=== PATIENT | female | born 1995 | race Caucasian/White ===

== ENCOUNTER 2019-07-23 16:23 | Observation (INO) | payer OTHER, SELFPAY ==
--- NOTE | ~2019-07-23 | US_ITS ---
EXAMINATION: US pelvic complete DATE: 07/23/2019 18:52 INDICATION: Miscarriage. TECHNIQUE: Multiple transabdominal sonographic images of the pelvis were obtained. COMPARISON: None. FINDINGS: The uterus measures 13.9 x 8.2 x 8.8 cm. There is no free fluid in the pelvis. The endometrial comple x measures 4.8 cm in thickness. There is no visible vascularity in the endometrial complex. The right ovary measures 2.6 x 3.1 x 1.5 cm. The left ovary measures 5.6 x 5.8 x 5.3 cm. There is a 5.5 cm cys t in the left ovary. IMPRESSION: 1. Thickened endometrial complex suspicious for retained products of conception. 2. 5.5 cm cyst in left ovary, likely a follicular cyst. Pelvis ultrasound is recommended in one year. Reviewed, dictated and finalized at location A. IMPRESSION: 1. Thickened endometrial complex suspicious for retained products of conception . 2. 5.5 cm cyst in left ovary, likely a follicular cyst. Pelvis ultrasound is re commended in one year.
[2019-07-23 16:21] VITALS: BP 99/82; PULSE 101; RESP 16; TEMP 36.6; O2SAT 95
--- NOTE | 2019-07-23 16:26 | ED.PREGNANCY ---
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 She states that she was seen by her OBGYN, Dr. Euceda, this morning for her 12 week check up, and after she got home she developed vaginal bleeding. She reports associated lower ABD and lower back pain. She also reports that she had some nausea and vomiting last night. She notes that she believes that she passed the fetus into the toilet and brought the specimen with her. The pt's blood type is A+. MD Complaint: vaginal bleeding Onset (ago): minute(s) Pain Consistency: constant Associated symptoms: nausea (last night), vomiting (last night), abdominal pain (lower) and other (lower back pain) Vaginal bleeding: heavy and clots Patient : Yes Number of Weeks : 12 Related Data : 2 Para: 1 Total number of abortions (spontaneous and elective): 0 Home Medications Medication Instructions Recorded Confirmed PNV cmb#95-ferrous fumarate-FA 1 tablet PO DAILY 07/23/19 [] Allergies Allergy/AdvReac Type Severity Reaction Status Date / Time No Known Allergies Allergy Unverified 07/23/19 16:25 Review of Systems Review of Systems: All systems reviewed & are unremarkable except as noted in HPI and below Gastrointestinal: Gastrointestinal: Reports abdominal pain (lower), Reports nausea (last night) and Reports vomiting (last night) Genitourinary: Genitourinary: Reports abnormal vaginal bleeding (heavy with clots) Musculoskeletal: Musculoskeletal: Reports back pain (lower) PMFSH Past Medical History Medical History (Updated 07/23/19 @ 18:12 by Iveth Mullins MD) History of ovarian cyst Surgical History Surgical History (Updated 07/23/19 @ 16:34 by Sandeep Parry) No history of previous surgery Social History Social History (Updated 07/23/19 @ 16:35 by Sandeep Parry) Smoking status: Never smoker Exam Const: General: cooperative, no acute distress and alert Nutritional Appearance: well nourished Orientation/consciousness: patient oriented x3 Limitations: no limitations HENMT: Mouth: Yes lip normal and Yes moist mucous membranes Resp: Effort & Inspection: normal respiratory effort Auscultation: clear to auscultation bilaterally Cardio: Rate: tachycardic (mild) Rhythm: regular rhythm GI: GI Palp: Yes Soft to palpation and Yes Tenderness to palpation present (GI) (suprapubic) Auscultation: normal bowel sounds : OB/external & speculum: vaginal bleeding (Unable to clear clots from vaginal vault) Skin: General skin exam: normal color Neuro: General: patient oriented x3 Cognition (Neuro): normal cognition Speech: normal speech Extrem: General: normal to inspection, full ROM and no clubbing, cyanosis or edema Psych: Mental Status: mental status grossly normal Affect: normal affect Attitude: cooperative Course Course Emergency Course: Patient presents with spontaneous . After speaking with Dr. Euceda, there is concern for septic given patient recently tested positive for gonorrhea and chlamydia and despite their attempts to get her into the office to get treated, patient had not followed up until today. Patient advised that she did test positive for these STDs and that Dr. Euceda was concerned that she has a pelvic infection that led to her miscarriage. Patient advised importance of being admitted to the hospital for IV antibiotics as recommended by her GASFITTER. Patient does have ongoing vaginal bleeding as well. Ultrasound is pending at time of admission and Dr. Mcdaniels advised he would be following up the results and checking on the patient. Consultations Consultation #1: Case discussed at [facility]
[2019-07-23] MEDS: KETOROLAC 30 MG/ML VIAL (*BKC) IV PUSH ×2 (17:02→23:12)
[2019-07-23] MEDS: LACTATED RINGERS 1,000 ML 999 ML IV CONT (17:02)
[2019-07-23 17:05] VITALS: BP 115/66; PULSE 91; O2SAT 96
--- NOTE | 2019-07-23 17:16 | PC.NURSE ---
geldmacher in room at time time for pelvic exam.
[2019-07-23 17:25] LABS: Basophils Absolute Auto 0.1 K/mm3 (0.0-0.1); Basophils Percent Auto 0.3 % (0.2-1.2); Eosinophils Percent Auto 0.1 % (0-4.4); Hematocrit 37.9 % (37.0-47.0); Hemoglobin 12.8 g/dL (12.0-15.0); Immature Granulocyte Absolute 0.27 K/mm3 (0.00-0.031); Immature Granulocyte Percent A 0.9 % (0-0.5); Lymphocytes Absolute Auto 1.65 K/mm3 (0.9-3.2); Lymphocytes Percent Auto 5.7 % (18.3-44.2); Mean Corpuscular HGB Conc 33.8 g/dl (32-36); Mean Corpuscular Hemoglobin 28.7 pg (26-34); Mean Platelet Volume 10.6 fl (7.4-10.4); Monocytes Absolute Auto 1.9 K/mm3 (0.1-0.6); Monocytes Percent Auto 6.5 % (2.6-8.5); Neutrophils Percent Auto 86.5 % (45.5-73.1); Platelet Count Result 293 k/mm3 (150-375); Red Blood Count 4.46 M/mm3 (4.2-5.4); Red Cell Distribution Width 15.1 % (11.5-14.5); White Blood Count 28.9 K/mm3 (4.5-10.0)
--- NOTE | 2019-07-23 17:40 | PC.NURSE ---
ERP GELDMACHER AT BEDSIDE INFORMING PT OF PLAN FOR CARE.
--- NOTE | 2019-07-23 17:45 | PC.NURSE ---
FETUS WEIGHED BY KAELYN SIDDIQI AT 20 GRAMS AND IS 10 CM LONG.
--- NOTE | 2019-07-23 18:00 | PC.NURSE ---
Notified surgery scheduling coordinator Willa Glez at this time of demise.
--- NOTE | 2019-07-23 18:05 | PC.NURSE ---
PT TO ULTRASOUND AT THIS TIME.
--- NOTE | 2019-07-23 18:34 | PC.NURSE ---
GAVE PT REPORT TO KAELYN MOSHER AT THIS TIME, PT STILL IN ULTRA SOUND AWAITING HER RETURN TO BEGIN ANTIBIOTICS AND SIGN DEMISE PAPERWORK.
--- NOTE | 2019-07-23 19:34 | PC.NURSE ---
SPOKE WITH CHAIM AT [facility], PT HAS EXPRESSED THAT THIS IS WHERE THEY WOULD LIKE BABY CREMATED. HOME HAS BEEN GIVEN INFORMATION AND WILL BE UP TO ED TO TRADER FETUS NICHOLAS.
[2019-07-23 19:56] VITALS: BP 138/75; PULSE 78; RESP 16; O2SAT 96
--- NOTE | 2019-07-23 19:57 | PC.NURSE ---
[facility] IN ED TO ACCEPT BODY.
[2019-07-23 20:06] VITALS: BP 112/57; PULSE 83; RESP 14; TEMP 36.6; O2SAT 98
[2019-07-23 20:09] VITALS: BMI 25.2
[2019-07-23] MEDS: cefoTEtan DISODIUM INJ 2 GM in DEXTROSE 5% IN WATER 50 ML IVPB (20:19)
[2019-07-23] MEDS: LACTATED RINGERS 1,000 ML 150 ML IV CONT (20:19)
--- NOTE | 2019-07-23 20:24 | ADMGEN ---
This patient, Tiffany Miller, was admitted to Medical Room 340-01. Patient/family oriented to hospital policies and general routines including ID bracelet, bed and alarms, visiting hours, pain management, procedures, bathroom and other care routines, personal items, smoking policy, room service/diet, and visiting hours. Valuables list has been completed. Information on how to activate the Rapid Response Team has been discussed. Patient/Family are encouraged to report perceived risks to care and to ask questions if they do not understand what they are told or what they should do.
[2019-07-24] MEDS: LACTATED RINGERS 1,000 ML 150 ML IV CONT (03:50)
[2019-07-24 05:28] VITALS: BP 114/53; PULSE 78; RESP 16; TEMP 36.3; O2SAT 99
[2019-07-24] MEDS: cefoTEtan DISODIUM INJ 2 GM in DEXTROSE 5% IN WATER 50 ML IVPB (06:31)
[2019-07-24 08:02] VITALS: PULSE 80; RESP 16; O2SAT 99
--- NOTE | 2019-07-24 08:41 | PM.IMHP ---
H&P: HPI History of Present Illness Chief complaint: Septic Spontaneous Narrative: Tiffany Miller is a 23 year old female who presented emergency department after spontaneous . She is a 2 para 1001 who was at 12 weeks yesterday when she presented to the office. An ultrasound performed she had what appeared to be a normal 12 week gestation. She went to the bathroom in our office and passed some large clots and was cramping. She was examined and found to be about 3 cm dilated with a bulging membranes and an live embryo that could be visualized moving across the membranes. She refused to be admitted to the hospital. She went home. She passed the the fetus and the placenta in the toilet. She had a moderate amount of bleeding and presented emergency department. She is examined there she [place] [address]. She was admitted for IV antibiotics. The patient had a gonorrhea infection that had not been treated. She tested positive in the office. That was about a month ago. We could not reach her for treatment. We tried multiple times. She denies any nausea, vomiting, fever, chills. She denies any chest pain shortness of breath. Review of Systems Constitutional: Constitutional: Reports no additional constitutional complaints, Denies fatigue, Denies headache(s), Denies lethargy and Denies weakness Eyes: Eyes: Reports no additional eye complaints, Denies blurry vision and Denies photophobia ENT: Reports as per HPI, Denies headache(s) and Denies neck pain Cardiovascular: Cardiovascular: Denies chest pain, Denies diaphoresis, Denies leg edema, Denies palpitations and Denies dyspnea Respiratory: Respiratory: Denies hemoptysis, Denies dyspnea and Denies wheezing Gastrointestinal: Gastrointestinal: Denies abdominal pain, Denies melena, Denies bloating, Denies hematochezia, Denies nausea and Denies vomiting Genitourinary: Genitourinary: Reports no additional female genitourinary complaints Musculoskeletal: Musculoskeletal: Denies joint swelling, Denies neck pain, Denies numbness and Denies stiffness Neurologic: Denies Abnormal speech present, Denies confusion, Denies headache(s), Denies numbness and Denies weakness Psychiatric: Psychiatric: Denies anxiety, Denies confusion, Denies depression, Denies homicidal ideation and Denies suicidal ideation Endocrine: Endocrine: Denies fatigue and Denies palpitations Allergic/Immunologic: Allergic/Immunologic: Denies wheezing PMFSH Past Medical History Medical History (Updated 07/23/19 @ 18:12 by Iveth Mullins MD) History of ovarian cyst Surgical History Surgical History (Updated 07/23/19 @ 16:34 by Sandeep Parry) No history of previous surgery Family History Family History (Updated 07/23/19 @ 20:30 by Danitza Gill RN) Father Acute myocardial infarction Hypertension Mother Hypertension Social History Social History (Updated 07/23/19 @ 16:35 by Sandeep Parry) Smoking packs per day: 0.5 Smoking cigarettes per day: 10.0 Years smoked: 10 Smoking pack-years: 5.00 Smoking status: Current every day smoker Tobacco type: cigarettes Alcohol intake: never Substance use: former 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 Last use: 3 years ago Gender identity (if verbalized by the patient): Female Spiritual care concerns: No Agree to blood products: Yes Meds Home Medications and Allergies Home Medications Medication Instructions Recorded Confirmed Type No Home Medications 07/23/19 07/23/19 History Allergies Allergy/AdvReac Type Severity Reaction Status Date / Time No Known Allergies Allergy Unverified 07/23/19 16:25 Vital Signs Vital Signs - 24 hr 07/23/19 16:21 07/23/19 17:05 07/23/19 19:56 Temperature 97.8 F Pulse Rate 101 H 91 78 Respiratory Rate 16 16 Blood Pressure 99/82 L 115/66 138/75 Pulse Oximetry 95 96 96
[2019-07-24 09:02] LABS: Hematocrit 31.9 % (37.0-47.0); Hemoglobin 10.7 g/dL (12.0-15.0); Mean Corpuscular HGB Conc 33.5 g/dl (32-36); Mean Corpuscular Hemoglobin 29.1 pg (26-34); Mean Corpuscular Volume 86.7 fl (80-100); Mean Platelet Volume 10.3 fl (7.4-10.4); Platelet Count Result 233 k/mm3 (150-375); Red Blood Count 3.68 M/mm3 (4.2-5.4); White Blood Count 19.7 K/mm3 (4.5-10.0)
[2019-07-24] MEDS: LIDOCAINE HCL 1% LOCAL INJ 10 ML VIAL 2.1 ML XX (09:33)
[2019-07-24] MEDS: cefTRIAXone 1 GM VIAL IM (09:33)
== END 2019-07-24 10:30 | disposition home or self-care (01) ==
LOC: ANHED 17:50 → ANH3MED 18:09
PROVIDERS: Admitting Provider Obstetrics & Gynecology; Emergency Provider Emergency Medicine; Visit Provider Obstetrics & Gynecology
DX: O03.87 Sepsis following complete or unspecified spontaneous abortion (principal); A41.9 Sepsis, unspecified organism; F17.210 Nicotine dependence, cigarettes, uncomplicated
CPT/HCPCS: 36415; 76856; 85025; 85027; 88305; 88307; 96361; 96365; 96367; 96375; 96376; 99285; G0378; G0379; J0131; J0696; J1885; J3010; J7120

== ENCOUNTER 2022-03-18 16:32 | Emergency (ER) | payer OTHER, SELFPAY ==
[2022-03-18 16:40] VITALS: BP 120/81; PULSE 70; RESP 18; TEMP 36.4; O2SAT 98
--- NOTE | 2022-03-18 16:55 | ED.DENTAL ---
HPI - Dental/Oral General Chief complaint: Dental/Oral Stated complaint: Mouth Pain Time Seen by Provider: 03/18/22 16:55 Source: patient Mode of arrival: ambulatory Limitations: no limitations History of Present Illness HPI Narrative: 26-year-old female presents with complaint of left upper dental pain. Reports history of bad teeth since last . Was told that she needs root canal, multiple teeth pulled. Was not able to afford at that time. Has appointment with a dentist that now takes her insurance on April 11. Taking Advil with no relief. All systems reviewed and negative except as noted above. Related Data Allergies Allergy/AdvReac Type Severity Reaction Status Date / Time No Known Allergies Allergy Verified 03/18/22 16:56 Review of Systems Review of Systems: CONSTITUTIONAL: Denies fever, chills, or sweats. EYES: Denies visual changes, redness, or discharge. ENT: Denies rhinorrhea, congestion, sore throat, or otalgia. Reports dental pain. CARDIOVASCULAR: Denies chest pain, palpitations, or edema. RESPIRATORY: Denies cough or dyspnea. GASTROINTESTINAL: Denies abdominal pain, nausea, vomiting, or diarrhea. GENITOURINARY: Denies dysuria or hematuria. SKIN: Denies rash or itching. MUSCULOSKELETAL: Denies back pain, joint pain, or myalgia. NEUROLOGIC: Denies headache, numbness, or weakness. PSYCHIATRIC: Denies anxiety or depression. All other systems reviewed are negative, except as documented in HPI. [facility] Past Medical History Medical History (Updated 03/18/22 @ 17:06 by Rhea Chang NP) History of ovarian cyst Surgical History Surgical History (Updated 07/23/19 @ 16:34 by Sandeep Parry) No history of previous surgery Family History Family History (Updated 07/23/19 @ 20:30 by Danitza Grimes RN) Father Acute myocardial infarction Hypertension Mother Hypertension Social History Social History (Updated 07/23/19 @ 16:35 by Sandeep Parry) Smoking packs per day: 0.5 Smoking cigarettes per day: 10.0 Years smoked: 10 Smoking pack-years: 5.00 Smoking status: Current every day smoker Tobacco type: cigarettes Alcohol intake: never Substance use: former 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 Last use: 3 years ago Gender identity (if verbalized by the patient): Female Spiritual care concerns: No Agree to blood products: Yes Comments At time of signature, agree with nursing past medical, surgical, social and family history. There is no relevant family history pertinent to the presenting complaint. Exam Narrative: GENERAL: This is a well-nourished, well-developed patient, in no apparent distress. HEAD: normocephalic, atraumatic. EYES: PERRL. Sclera clear/white. Vision is grossly intact. EARS: External ears normal NOSE: External nose normal MOUTH: multiple decayed teeth. tenderness to tooth #11 NECK: Neck supple, non-tender without lymphadenopathy, masses or thyromegaly. CARDIOVASCULAR: Regular rate and rhythm without murmurs, gallops, or rubs. RESPIRATORY: Clear to auscultation. Breath sounds equal bilaterally. No wheezes, rales, or rhonchi. SKIN: warm, Dry, intact with no suspicious lesions or rash, good texture and turgor. NEURO: awake, alert, and oriented to person, place and time. There were no obvious focal neurologic abnormalities. EXTREMITIES: No joint tenderness, effusion, or edema noted. Course Course Level of Care: Express Care Visit Vital Signs Vital signs: Vital Signs Temperature 36.4 C 03/18/22 16:40 Pulse Rate 70 03/18/22 16:40 Respiratory Rate 18 03/18/22 16:40 Blood Pressure 120/81 03/18/22 16:40 Pulse Oximetry 98 03/18/22 16:40 Oxygen Delivery Room Air 03/18/22 16:40 Temperature 36.4 C 03/18/22 16:40 Pulse Rate 70 03/18/22 16:40 Respiratory Rate 18 03/18/22 16:40 Blood Pressure 120/81 03/18/22 16:40 Pulse Oximetry 98 03/18/22 16:40
== END 2022-03-18 17:10 | disposition home or self-care (01) ==
PROVIDERS: Emergency Provider Nurse Practitioner Family; PCP Emergency Medicine
DX: K08.89 Other specified disorders of teeth and supporting structures (principal); F17.210 Nicotine dependence, cigarettes, uncomplicated
CPT/HCPCS: 99213; G0463

== ENCOUNTER 2024-10-08 12:19 | Outpatient (CLI) | payer OTHER, SELFPAY ==
[2024-10-08 13:05] LABS: Basophils Absolute Auto 0.05 K/mm3 (0.00-0.10); Basophils Percent Auto 0.6 % (0.0-1.0); Eosinophils Absolute Auto 0.17 K/mm3 (0.02-0.50); Hematocrit 25.6 % (35.0-49.0); Hemoglobin 7.7 g/dL (12.0-15.0); Immature Granulocyte Absolute 0.03 K/mm3 (0.00-0.00); Immature Granulocyte Percent A 0.4 % (0.0-0.0); Lymphocytes Absolute Auto 2.33 K/mm3 (1.10-4.50); Mean Corpuscular HGB Conc 30.1 g/dL (32-36); Mean Corpuscular Hemoglobin 26.9 pg (27.0-31.0); Mean Corpuscular Volume 89.5 fL (78.0-102.0); Mean Platelet Volume 9.7 fl (9.2-11.8); Monocytes Percent Auto 7.2 % (2.0-11.0); Neutrophils Absolute Auto 5.15 K/mm3 (1.70-7.20); Neutrophils Percent Auto 61.8 % (50.0-70.0); Platelet Count Result 528 K/mm3 (150-420); Red Blood Count 2.86 M/mm3 (4.20-5.40); Red Cell Distribution Width 16.3 % (11.6-14.4); White Blood Count 8.3 K/mm3 (4.8-10.8)
[2024-10-08 13:12] LABS: Immature Platelet Fraction Pct 1.6 % (1.0-7.0)
--- OUTSIDE RECORDS SUMMARY | 2024-10-08 13:35 | XMS_ITS | Continuity of Care Document ---
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 [facility] [address] [place] [address] Phone Care Team Providers Care Cruise Consultant Name Role Phone Morgan Edward MD Unavailable Unavailab le Allergies, Adverse Reactions, Alerts Substance Reaction Status Criticality No Known Drug Allergies Active No I nformation Medications Medication Instructions Dosage Effective Dates (start - stop) Status Comments No Drug Therapy Prescribed Procedures Procedure Date Resin-Based Composite-One Surface, Poste rior Resin-Based Composite-Two Surfaces, Post erior Bitewings-Four Radiographic Images Panoramic Radiographic Image Comprehensive Oral Eval-New Or Establish ed Patient Assessment Of A Patient Prophylaxis-Adult Topical Application Of Fluoride 016 OFFICE/OUTPATIENT VISIT, EST SBIRT Screening PREV VISIT, NEW, AGE 18-39 Advance Directives Directive Yes / No Effective Date File Name No Information Encounters Encounter Description Practice Location Reason(s) For Visit Diagnoses Date Provider Providers Copied on Encounter Jennifer Lemos [employer] [facility] Darshanashannon tony, [facility] [address] [place] [address], [place], [address], [place] tel:[phone] Mahad Conn [facility] No Information 7 Wagner Mora. [address] [facility], [id number] , [place], [address], [place]. tel:[phone] Jennifer Lemos [employer] [facility] Darshanameenayumiko jimenez, [facility] [address] [facility], [place], [address], [place] tel: [phone] [facility] No Information 6 Lashell Boyle. [address] [facility], [id number] , [place], [place], [facility], [place]. tel:[phone] Jennifer Lemos [employer], [employer] [facility] [address] [facility], [place], [place], [facility], [place] tel: [phone] [facility] No Information 6 [facility]. [address] [facility], [id number] , [place], [place], [facility], [place]. tel:[phone] Jennifer Lemos [employer] [facility], [employer]ACH[employer] [facility] [address] [facility], [place], [place], [facility], tel: [phone] [facility] No Information 6 Ignaciowes Boyle. [address] [facility], [id number] , [place], [place], [facility], [place]. tel:[phone] OFFICE/OUTPA TIENT VISIT, EST Jennifer Lemos [employer] [facility] Darshanatiu tony, [employer] [facility] [address] [facility], [place], [place], [facility], [place] tel: [phone] [facility] Lab results (chief complaint) Hepatitis CChlamydia infectionGenital herpesEncounter to discuss test results 5 Yazan Valentin. [facility], [id number] , [place], [place], [facility], [place]. tel:[phone] PREV VISIT, NEW, AGE 18-39 Jennifer Reed [employer] [facility], [employer]ACH[employer] [facility] [address], [place], [place], [facility], [place] tel:[phone] [facility] Hep C positive (chief complaint) Hepatitis CScreen for STD (sexually transmitted disease) 5 Yazan Valentin. [facility], [id number] , [place], [place], [facility], [place]. tel:[phone] Family History Family Member Type Diagnosis Age At Onset No Information Payers Payer name Insurance type Covered democrat ID Marcia cunningham(vicky Mcdonald [employer] [id number] Social History Type Description Quantity Date Captured Comments Sex Female Smoking Status No Information Chief Complaint And Reason For Visit No Information Reason For Referral Reason For Referral No Information Plan Of Treatment Date Type Action Status Referral Ordered: Referrals: Gastroenterology. Evaluate and treat ordered Patient Education Genital Herpes: After Y our Visit completed Patient Education Chlamydia: After Your V isit completed Patient Education Hepatitis C: After Your Visit completed History Of Present Illness Encounter Date Complaint History Of Prese nt Illness Lab results 1 gram of Azithr omycin given today. Hep C positive Functional Status Date Functional Assessmen t No Information Medications Administered Medication Instructions Dosage Effective Dates (start - stop) Status Comments No Drug Therapy Prescribed Instructions Date Instruction Additional Mercedesr black treatment: azithromy frida. Avoid unprotected risky intercourse. Utilize condoms Related to Chlamydia infection Assessments Type Assessment Date No Information Patient Care Teams Name Effective Dates (start - stop) Status Members No Information
[2024-10-08 13:37] LABS: Alanine Aminotransferase 14 U/L (6-35); Albumin Level 3.1 g/dL (3.5-5.1); Alkaline Phosphatase 245 U/L (38-126); Anion Gap 8 mmol/L (4-12); Aspartate Amino Transferase 20 U/L (14-36); Bilirubin,Total 0.6 mg/dL (0.2-1.3); Blood Urea Nitrogen 25 mg/dL (7-17); CRP 8.7 mg/dL (<1.0); Calcium 8.3 mg/dL (8.4-10.2); Carbon Dioxide 27 mmol/L (22-30); Chloride 99 mmol/L (98-107); Estimated Glomerular Filt Rate 11; Glucose 94 mg/dL (65-110); Osmolality Calculated 282 mOsm/kg (285-295); Potassium 4.6 mmol/L (3.4-5.0); Sodium 134 mmol/L (137-145); Total Protein 8.5 g/dL (6.3-8.2)
--- OUTSIDE RECORDS SUMMARY | 2024-10-08 13:37 | XMS_ITS | Referral Summary ---
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 Name Role Phone Unavailable Primary Care Provider Unavailabl e Encounters Date Type Department Care Team Description 10/05/2024 SHOP/CHAP Initial Outreach [facility] [address] [place] [address] Katerin Zepeda RN 10/03/2024 SHOP/CHAP Initial Outreach [facility] [address] [place] [address] Katerin Zepeda RN 10/02/2024 SHOP/CHAP Initial Outreach [facility] [address] [place] [address] Katerin Zepeda RN 10/02/2024 Telephone Research [facility] Cardiothoracic Surgery [address] [place] [address] 8th Floor [address] Room [address] [id number] Massimo Alcala MD 10/02/2024 SHOP/CHAP Initial Eligibility Review [facility] [address] [place] [address] Katerin Zepeda RN 08/05/2024 5:32 PM CDT - 10/01/2024 1:33 PM CDT Hospital Encounter [facility] [place] [address] Amando Briggs MD Krings, MD Ayah Steve, MD Jose Miguel Seay, MD Carlitos Jimenez, Valerie Palacios MD PhD Edwar, Jone, MD Dickey, Elizabet Chamberlain, MD Gaming, MD Linus Rose, Gianni Barksdale, MD Vincent, MD Arya Acute bacterial endocarditis (Primary Dx); Opioid use disorder; MARIELENA (acute kidney injury); Hyponatremia; Septic shock (HCC); Staphyloccocus aureus (MRSA) endocarditis Discharge Disposition: Discharge to home or self care from Last 3 Months Allergies No known active allergies Medications naloxegoL (MOVANTIK) 12.5 mg tablet Take 1 tablet (12.5 mg total) by mouth daily before breakfast 30 tablet 09/06/19 25 Active naloxone (NARCAN) 4 mg/actuation spray,non-aerosol Administer 1 spray into affected nostril(s) as needed for opioid reversal or respiratory depression Call 911. Administer a single spray in one nostril. Repeat every 3 minutes as needed if no or minimal response. 1 each 1 09/25/19 25 025 Active amLODIPine (NORVASC) 10 mg tablet Take 1 tablet (10 mg total) by mouth daily 30 tablet 10/03/19 25 025 Active buprenorphine (SUBUTEX) tablet, sublingual Place 1 tablet (8 mg total) under the tongue every 12 (twelve) hours for 7 days 14 tablet 10/02/19 25 Active calcium carbonate (OS-JESS) 1,250 mg (500 mg elemental) tablet Take 0.5 tablets (625 mg total) by mouth daily 15 tablet 10/03/19 25 025 Active carvediloL (COREG) 12.5 mg tablet Take 1 tablet (12.5 mg total) by mouth 2 (two) times a day with meals 60 tablet 10/02/19 25 025 Active clonazePAM (KlonoPIN) 0.25 mg disintegrating tablet Take 1 tablet (0.25 mg total) by mouth 2 (two) times a day for 7 days 14 tablet 10/02/19 25 Active cloNIDine (CATAPRES) 0.1 mg tablet Take 1 tablet (0.1 mg total) by mouth 3 (three) times a day as needed (anxiety/) 30 tablet 10/02/19 25 025 Active cyclobenzaprine (FLEXERIL) 5 mg tablet Take 1 tablet (5 mg total) by mouth 3 (three) times a day as needed for muscle spasms (back pain) 30 tablet 10/02/19 25 Active escitalopram (LEXAPRO) 10 mg tablet Take 1 tablet (10 mg total) by mouth daily 30 tablet 10/03/19 25 025 Active famotidine (PEPCID) 20 mg tablet Take 1 tablet (20 mg total) by mouth every other day 15 tablet 10/02/19 25 025 Active senna-docusate (PERICOLACE) 8.6-50 mg Take 2 tablets by mouth nightly 60 tablet 10/02/19 25 025 Active polyethylene glycol (MIRALAX) 17 gram packetIndications: constipation Take 1 packet (17 g total) by mouth daily 30 packet 10/03/19 25 Active nicotine (NICODERM CQ) [address] 1 patch on the skin daily for 24 hours 15 patch 10/03/19 25 025 Active naloxone (NARCAN) 0.4 mg/mL injection Infuse 1 mL (0.4 mg total) IV every 10 (ten) minutes as needed for opioid reversal or respiratory depression 1 mL 10/02/19 25 025 Active multivit edkdscgd-opxx-ZS-c alcium (THERA-M) 9 mg iron-400 mcg tablet Take 1 tablet by mouth daily 30 tablet 10/03/19 25 025 Active mirtazapine (REMERON) 15 mg tablet Take 1 tablet (15 mg total) by mouth nightly 30 tablet 10/02/19 25 025 Active lidocaine (LIDODERM) 5 % Place 3 patches on the skin daily for 12 hours Remove & discard patch within 12 hours or as directed by . 20 patch 10/03/19 25 025 Active hydrALAZINE (APRESOLINE) 10 mg tabletIndications: hypertension Take 1 tablet (10 mg total) by mouth 3 (three) times a day 90 tablet 10/02/19 25 025 Active hydrOXYzine (ATARAX) 50 mg tabletIndications: Opioid Withdrawal Symptoms Take 1 tablet (50 mg total) by mouth 3 (three) times a day as needed for anxiety (rhinorrhea, pruritis) 30 tablet 10/02/19 25 025 Active Hospital, Clinic, or Other Facility Administered Medication Ordered Dose Route Frequency Start Date End Date Status levonorgestreL (LILETTA) 20.1 mcg/24 hrs (6 yrs) 52 mg IUD 1 eachIndications:P regnancy Contraception 1 each intrauterine Continuous (implanted device) 10/02/19 25 Discontinued Active Problems Problem Noted Date Diagnosed Date Ascites 09/06/2024 Assessment & Plan (10/01/2024 12:21 PM CDT): POCUS (09/06) revealing small volume ascites, not amenable to para Assessment & Plan (09/30/2024 2:33 PM CDT): POCUS (5/8) revealing small volume ascites, not amenable to para Assessment & Plan (09/29/2024 1:49 PM CDT): POCUS (5/8) revealing small volume ascites, not amenable to para Assessment & Plan (09/28/2024 3:38 PM CDT): POCUS (5/8) revealing small volume ascites, not amenable to para Assessment & Plan (09/27/2024 12:58 PM CDT): POCUS (5/8) revealing small volume ascites, not amenable to para Assessment & Plan (09/26/2024 3:20 PM CDT): POCUS (5/8) revealing small volume ascites, not amenable to para Assessment & Plan (09/25/2024 1:31 PM CDT): POCUS (5/8) revealing small volume ascites, not amenable to para Assessment & Plan (09/24/2024 4:19 PM CDT): POCUS (5/8) revealing small volume ascites, not amenable to para Assessment & Plan (09/23/2024 11:48 AM CDT): POCUS (5/8) revealing small volume ascites, not amenable to para Assessment & Plan (09/22/2024 2:21 PM CDT): POCUS (5/8) revealing small volume ascites, not amenable to para Assessment & Plan (09/21/2024 4:45 PM CDT): POCUS (5/8) revealing small volume ascites, not amenable to para Assessment & Plan (09/20/2024 1:12 PM CDT): POCUS (5/8) revealing small volume ascites, not amenable to para Assessment & Plan (09/19/2024 4:58 PM CDT): POCUS (5/8) revealing small volume ascites, not amenable to para Assessment & Plan (09/18/2024 3:35 PM CDT): POCUS (5/8) revealing small volume ascites, not amenable to para Assessment & Plan (09/17/2024 3:18 PM CDT): POCUS (5/8) revealing small volume ascites, not amenable to para Assessment & Plan (09/16/2024 12:18 PM CDT): POCUS (5/8) revealing small volume ascites, not amenable to para Assessment & Plan (09/15/2024 1:15 PM CDT): POCUS (5/8) revealing small volume ascites, not amenable to para Assessment & Plan (09/14/2024 5:05 PM CDT): POCUS (5/8) revealing small volume ascites, not amenable to para Assessment & Plan (09/13/2024 1:28 PM CDT): POCUS (5/8) revealing small volume ascites, not amenable to para Assessment & Plan (09/12/2024 1:13 PM CDT): POCUS (5/8) revealing small volume ascites, not amenable to para Assessment & Plan (09/11/2024 5:22 PM CDT): POCUS (5/8) revealing small volume ascites, not amenable to para Assessment & Plan (09/10/2024 7:45 AM CDT): POCUS (5/8) revealing small volume ascites, not amenable to para Assessment & Plan (09/09/2024 7:28 AM CDT): POCUS (5/8) revealing small volume ascites, not amenable to para Assessment & Plan (09/08/2024 1:38 PM CDT): POCUS (5/8) revealing small volume ascites, not amenable to para Assessment & Plan (09/07/2024 7:42 PM CDT): POCUS (5/8) revealing small volume ascites, not amenable to para Assessment & Plan (09/06/2024 5:03 PM CDT): POCUS (5/8) revealing small volume ascites, not amenable to para Hypertension 09/02/2024 Assessment & Plan (10/01/2024 12:21 PM CDT): D/t MARIELENA, withdrawal -Pt treated initially (amlodipine 10mg and hydral 25mg TID, carvedilol 12.5mg BID) and then off all anti-hypertensives with VSS - Slowly resumed carvedilol, amlodipine and hydralazine, continue to monitor and uptitrate as needed. Assessment & Plan (09/30/2024 2:33 PM CDT): D/t MARIELENA, withdrawal -Pt treated initially (amlodipine 10mg and hydral 25mg TID, carvedilol 12.5mg BID) and then off all anti-hypertensives with VSS - Slowly resumed carvedilol, amlodipine and hydralazine, continue to monitor and uptitrate as needed. Assessment & Plan (09/29/2024 1:49 PM CDT): D/t MARIELENA, withdrawal -Pt treated initially (amlodipine 10mg and hydral 25mg TID, carvedilol 12.5mg BID) and then off all anti-hypertensives with VSS - Slowly resumed carvedilol, amlodipine and hydralazine, continue to monitor and uptitrate as needed. Assessment & Plan (09/28/2024 3:38 PM CDT): D/t MARIELENA, withdrawal -Pt treated initially (amlodipine 10mg and hydral 25mg TID, carvedilol 12.5mg BID) and then off all anti-hypertensives with VSS - Slowly resumed carvedilol, amlodipine and hydralazine, continue to monitor and uptitrate as needed. Assessment & Plan (09/27/2024 12:58 PM CDT): D/t MARIELENA, withdrawal -Pt treated initially (amlodipine 10mg and hydral 25mg TID, carvedilol 12.5mg BID) and then off all anti-hypertensives with VSS - Slowly resumed carvedilol, amlodipine and hydralazine, continue to monitor and uptitrate as needed. Assessment & Plan (09/26/2024 3:20 PM CDT): D/t MARIELENA, withdrawal -Pt treated initially (amlodipine 10mg and hydral 25mg TID, carvedilol 12.5mg BID) and then off all anti-hypertensives with VSS - Slowly resumed carvedilol, amlodipine and hydralazine, continue to monitor and uptitrate as needed. Assessment & Plan (09/25/2024 1:31 PM CDT): D/t MARIELENA, withdrawal -Pt treated initially (amlodipine 10mg and hydral 25mg TID, carvedilol 12.5mg BID) and then off all anti-hypertensives with VSS - Slowly resumed carvedilol, amlodipine and hydralazine, continue to monitor and uptitrate as needed. Assessment & Plan (09/24/2024 4:19 PM CDT): D/t MARIELENA, withdrawal -Pt treated initially (amlodipine 10mg and hydral 25mg TID, carvedilol 12.5mg BID) and then off all anti-hypertensives with VSS - Slowly resumed carvedilol, amlodipine and hydralazine, continue to monitor and uptitrate as needed. Assessment & Plan (09/23/2024 11:48 AM CDT): D/t MARIELENA, withdrawal -Pt treated initially (amlodipine 10mg and hydral 25mg TID, carvedilol 12.5mg BID) and then off all anti-hypertensives with VSS - Slowly resumed carvedilol, amlodipine and hydralazine, continue to monitor and uptitrate as needed. Assessment & Plan (09/22/2024 2:21 PM CDT): D/t MARIELENA, withdrawal -Pt treated initially (amlodipine 10mg and hydral 25mg TID, carvedilol 12.5mg BID) and then off all anti-hypertensives with VSS - Slowly resumed carvedilol, amlodipine and hydralazine, continue to monitor and uptitrate as needed. Assessment & Plan (09/21/2024 4:50 PM CDT): D/t MARIELENA, withdrawal -Pt treated initially (amlodipine 10mg and hydral 25mg TID, carvedilol 12.5mg BID) and then off all anti-hypertensives with VSS - Slowly resumed carvedilol, amlodipine and hydralazine, continue to monitor Assessment & Plan (09/20/2024 1:12 PM CDT): D/t MARIELENA, withdrawal -Pt treated initially (amlodipine 10mg and hydral 25mg TID, carvedilol 12.5mg BID) and then off all anti-hypertensives with VSS - Slowly resumed carvedilol low-dose and amlodipine, continue to monitor Assessment & Plan (09/19/2024 5:12 PM CDT): D/t MARIELENA, withdrawal -Pt treated initially (amlodipine 10mg and hydral 25mg TID, carvedilol 12.5mg BID) and then off all anti-hypertensives with VSS - Slowly resumed carvedilol low-dose and amlodipine Assessment & Plan (09/18/2024 3:35 PM CDT): D/t MARIELENA, withdrawal -Pt treated initially and now off all anti-hypertensives with VSS BP improved Assessment & Plan (09/17/2024 3:18 PM CDT): D/t MARIELENA, withdrawal -Pt treated initially and now off all anti-hypertensives with VSS BP improved Assessment & Plan (09/16/2024 12:18 PM CDT): D/t MARIELENA, withdrawal -Pt treated initially and now off all anti-hypertensives with VSS BP improved Assessment & Plan (09/15/2024 1:15 PM CDT): D/t MARIELENA, withdrawal -continue amlodipine 10mg and hydral 25mg TID. Started carvedilol 12.5mg BID. Discussed clonidine taper with pharmacy. Taper clonidine 2mg TID -> 1mg TID x 3d, then 1mg BID x 3d, then 1mg daily x 2d, then stop. BP improved, now off clonidine Assessment & Plan (09/14/2024 5:05 PM CDT): D/t MARIELENA, withdrawal -continue amlodipine 10mg and hydral 25mg TID. Started carvedilol 12.5mg BID. Discussed clonidine taper with pharmacy. Taper clonidine 2mg TID -> 1mg TID x 3d, then 1mg BID x 3d, then 1mg daily x 2d, then stop. Assessment & Plan (09/13/2024 1:28 PM CDT): D/t MARIELENA, withdrawal -continue amlodipine 10mg and hydral 25mg TID. Started carvedilol 12.5mg BID. Discussed clonidine taper with pharmacy. Taper clonidine 2mg TID -> 1mg TID x 3d, then 1mg BID x 3d, then 1mg daily x 2d, then stop. Assessment & Plan (09/12/2024 1:13 PM CDT): D/t MARIELENA, withdrawal -continue amlodipine 10mg and hydral 25mg TID. Started carvedilol 12.5mg BID. Discussed clonidine taper with pharmacy. Taper clonidine 2mg TID -> 1mg TID x 3d, then 1mg BID x 3d, then 1mg daily x 2d, then stop. Assessment & Plan (09/11/2024 5:22 PM CDT): D/t MARIELENA, withdrawal -continue amlodipine 10mg and hydral 25mg TID. Started carvedilol 12.5mg BID. Discussed clonidine taper with pharmacy. Taper clonidine 2mg TID -> 1mg TID x 3d, then 1mg BID x 3d, then 1mg daily x 2d, then stop. Assessment & Plan (09/10/2024 5:10 PM CDT): D/t MARIELENA, withdrawal -continue amlodipine 10mg and hydral 25mg TID. Started carvedilol 12.5mg BID. Discussed clonidine taper with pharmacy. Taper clonidine 2mg TID -> 1mg TID x 3d, then 1mg BID x 3d, then 1mg daily x 2d, then stop. Assessment & Plan (09/09/2024 7:32 AM CDT): D/t MARIELENA, withdrawal -continue amlodipine 10mg and hydral 25mg TID. Start carvedilol 12.5mg BID. Discussed clonidine taper with pharmacy. Taper clonidine 2mg TID -> 1mg TID x 3d, then 1mg BID x 3d, then 1mg daily x 2d, then stop. Assessment & Plan (09/08/2024 1:38 PM CDT): D/t MARIELENA, withdrawal -continue clonidine TID, hydral 25 TID. Start amlodipine 10mg (09/06) Assessment & Plan (09/07/2024 7:42 PM CDT): D/t MARIELENA, withdrawal -continue clonidine TID, hydral 25 TID. Start amlodipine 10mg (09/06) Assessment & Plan (09/06/2024 5:03 PM CDT): D/t MARIELENA, withdrawal -continue clonidine TID, hydral 25 TID. Start amlodipine 10mg (09/06) Assessment & Plan (2024 7:59 AM CDT): D/t MARIELEAN, withdrawal -continue clonidine TID -start hydralazine 10mg TID 5/5 Assessment & Plan (09/04/2024 7:56 AM CDT): D/t MARIELENA, withdrawal -continue clonidine TID -start hydralazine 10mg TID 5/5 Assessment & Plan (09/03/2024 4:35 PM CDT): D/t MARIELENA, withdrawal -continue clonidine TID -start hydralazine 10mg TID 5/5 Assessment & Plan (09/02/2024 4:33 PM CDT): D/t MARIELENA, withdrawal -continue clonidine TID -consider starting amlodpine Malnutrition 08/29/2024 Assessment & Plan (08/29/2024 4:00 PM CDT): Pt having decreased appetite. Plan RD consulted Start mirtazapine nightly as appetite stimulant Pleural effusion 08/24/2024 Assessment & Plan (08/24/2024 1:10 PM CDT): Left loculated effusion s/p chest tube. Exudative but LDH 182; culture negative. Good aeration of left lung with adequate drainage. - removed left chest tube today Encephalopathy, toxic 08/24/2024 Assessment & Plan (10/01/2024 12:21 PM CDT): - on 08/23 and 08/24; likely toxic from her polypharmacy - Weaned Dilaudid, Oxycodone, Atarax, flexeril on 08/24; keep them to avoid withdrawal with her hx of illicit drug use - RESOLVED, but has slowed response Assessment & Plan (09/30/2024 2:33 PM CDT): - on 08/23 and 08/24; likely toxic from her polypharmacy - Weaned Dilaudid, Oxycodone, Atarax, flexeril on 08/24; keep them to avoid withdrawal with her hx of illicit drug use - RESOLVED, but has slowed response Assessment & Plan (09/29/2024 1:49 PM CDT): - on 08/23 and 08/24; likely toxic from her polypharmacy - Weaned Dilaudid, Oxycodone, Atarax, flexeril on 08/24; keep them to avoid withdrawal with her hx of illicit drug use - RESOLVED, but has slowed response Assessment & Plan (09/28/2024 3:38 PM CDT): - on 08/23 and 08/24; likely toxic from her polypharmacy - Weaned Dilaudid, Oxycodone, Atarax, flexeril on 08/24; keep them to avoid withdrawal with her hx of illicit drug use - RESOLVED, but has slowed response Assessment & Plan (09/27/2024 12:58 PM CDT): - on 08/23 and 08/24; likely toxic from her polypharmacy - Weaned Dilaudid, Oxycodone, Atarax, flexeril on 08/24; keep them to avoid withdrawal with her hx of illicit drug use - RESOLVED, but has slowed response Assessment & Plan (09/26/2024 3:45 PM CDT): - on 08/23 and 08/24; likely toxic from her polypharmacy - Weaned Dilaudid, Oxycodone, Atarax, flexeril on 08/24; keep them to avoid withdrawal with her hx of illicit drug use - RESOLVED, but has slowed response Assessment & Plan (09/25/2024 1:31 PM CDT): - on 08/23 and 08/24; likely toxic from her polypharmacy - Weaned Dilaudid, Oxycodone, Atarax, flexeril on 08/24; keep them to avoid withdrawal with her hx of illicit drug use; our goal is to avoid her leaving AMA because of withdrawal - Removed Wood's on 08/25 - Currently AO x3. Resolved Assessment & Plan (09/24/2024 4:19 PM CDT): - on 08/23 and 08/24; likely toxic from her polypharmacy - Weaned Dilaudid, Oxycodone, Atarax, flexeril on 08/24; keep them to avoid withdrawal with her hx of illicit drug use; our goal is to avoid her leaving AMA because of withdrawal - Removed Wood's on 08/25 - Currently AO x3. Resolved Assessment & Plan (09/23/2024 11:48 AM CDT): - on 08/23 and 08/24; likely toxic from her polypharmacy - Weaned Dilaudid, Oxycodone, Atarax, flexeril on 08/24; keep them to avoid withdrawal with her hx of illicit drug use; our goal is to avoid her leaving AMA because of withdrawal - Removed Wood's on 08/25 - Currently AO x3. Resolved Assessment & Plan (09/22/2024 2:21 PM CDT): - on 08/23 and 08/24; likely toxic from her polypharmacy - Weaned Dilaudid, Oxycodone, Atarax, flexeril on 08/24; keep them to avoid withdrawal with her hx of illicit drug use; our goal is to avoid her leaving AMA because of withdrawal - Removed Wood's on 08/25 - Currently AO x3. Resolved Assessment & Plan (09/21/2024 4:45 PM CDT): - on 08/23 and 08/24; likely toxic from her polypharmacy - Weaned Dilaudid, Oxycodone, Atarax, flexeril on 08/24; keep them to avoid withdrawal with her hx of illicit drug use; our goal is to avoid her leaving AMA because of withdrawal - Removed Wood's on 08/25 - Currently AO x3. Resolved Assessment & Plan (09/20/2024 1:12 PM CDT): - on 08/23 and 08/24; likely toxic from her polypharmacy - Weaned Dilaudid, Oxycodone, Atarax, flexeril on 08/24; keep them to avoid withdrawal with her hx of illicit drug use; our goal is to avoid her leaving AMA because of withdrawal - Removed Wood's on 08/25 - Currently AO x3. Resolved Assessment & Plan (09/19/2024 4:58 PM CDT): - on 08/23 and 08/24; likely toxic from her polypharmacy - Weaned Dilaudid, Oxycodone, Atarax, flexeril on 08/24; keep them to avoid withdrawal with her hx of illicit drug use; our goal is to avoid her leaving AMA because of withdrawal - Removed Wood's on 08/25 - Currently AO x3. Resolved Assessment & Plan (09/18/2024 3:35 PM CDT): - on 08/23 and 08/24; likely toxic from her polypharmacy - Weaned Dilaudid, Oxycodone, Atarax, flexeril on 08/24; keep them to avoid withdrawal with her hx of illicit drug use; our goal is to avoid her leaving AMA because of withdrawal - Removed Wood's on 08/25 - Currently AO x3. Resolved Assessment & Plan (09/17/2024 3:18 PM CDT): - on 08/23 and 08/24 ----> likely toxic from her polypharmacy - Weaned Dilaudid, Oxycodone, Atarax, flexeril on 08/24 ---> keep them to avoid withdrawal with her hx of illicit drug use ---> our goal is to avoid her leaving AMA because of withdrawal - Removed Wood's on 08/25 Resolved Assessment & Plan (09/16/2024 12:18 PM CDT): - on 08/23 and 08/24 ----> likely toxic from her polypharmacy - Weaned Dilaudid, Oxycodone, Atarax, flexeril on 08/24 ---> keep them to avoid withdrawal with her hx of illicit drug use ---> our goal is to avoid her leaving AMA because of withdrawal - Removed Wood's on 08/25 Resolved Assessment & Plan (09/15/2024 1:15 PM CDT): - on 08/23 and 08/24 ----> likely toxic from her polypharmacy - Weaned Dilaudid, Oxycodone, Atarax, flexeril on 08/24 ---> keep them to avoid withdrawal with her hx of illicit drug use ---> our goal is to avoid her leaving AMA because of withdrawal - Removed Wood's on 08/25 - Decreased 08/27 Methadone to 50 mg d/t lethargy 09/12: Decreased 08/27 Methadone to 40 mg d/t lethargy Resolved Assessment & Plan (09/14/2024 5:05 PM CDT): - on 08/23 and 08/24 ----> likely toxic from her polypharmacy - Weaned Dilaudid, Oxycodone, Atarax, flexeril on 08/24 ---> keep them to avoid withdrawal with her hx of illicit drug use ---> our goal is to avoid her leaving AMA because of withdrawal - Removed Wood's on 08/25 - Decreased 08/27 Methadone to 50 mg d/t lethargy 09/12: Decreased 08/27 Methadone to 40 mg d/t lethargy Resolved Assessment & Plan (09/13/2024 1:28 PM CDT): - on 08/23 and 08/24 ----> likely toxic from her polypharmacy - Weaned Dilaudid, Oxycodone, Atarax, flexeril on 08/24 ---> keep them to avoid withdrawal with her hx of illicit drug use ---> our goal is to avoid her leaving AMA because of withdrawal - Removed Wood's on 08/25 - Decreased 08/27 Methadone to 50 mg d/t lethargy 09/12: Decreased 08/27 Methadone to 40 mg d/t lethargy Resolved Assessment & Plan (09/12/2024 1:13 PM CDT): - on 08/23 and 08/24 ----> likely toxic from her polypharmacy - Weaned Dilaudid, Oxycodone, Atarax, flexeril on 08/24 ---> keep them to avoid withdrawal with her hx of illicit drug use ---> our goal is to avoid her leaving AMA because of withdrawal - Removed Wood's on 08/25 - Decreased 08/27 Methadone to 50 mg d/t lethargy 09/12: Decreased 08/27 Methadone to 40 mg d/t lethargy Resolved Assessment & Plan (09/11/2024 5:22 PM CDT): - on 08/23 and 08/24 ----> likely toxic from her polypharmacy - Weaned Dilaudid, Oxycodone, Atarax, flexeril on 08/24 ---> keep them to avoid withdrawal with her hx of illicit drug use ---> our goal is to avoid her leaving AMA because of withdrawal - Removed Wood's on 08/25 - Decreased 08/27 Methadone to 50 mg d/t lethargy Resolved Assessment & Plan (09/10/2024 7:45 AM CDT): - on 08/23 and 08/24 ----> likely toxic from her polypharmacy - Weaned Dilaudid, Oxycodone, Atarax, flexeril on 08/24 ---> keep them to avoid withdrawal with her hx of illicit drug use ---> our goal is to avoid her leaving AMA because of withdrawal - Removed Wood's on 08/25 - Decreased 08/27 Methadone to 50 mg d/t lethargy Resolved Assessment & Plan (09/09/2024 7:28 AM CDT): - on 08/23 and 08/24 ----> likely toxic from her polypharmacy - Weaned Dilaudid, Oxycodone, Atarax, flexeril on 08/24 ---> keep them to avoid withdrawal with her hx of illicit drug use ---> our goal is to avoid her leaving AMA because of withdrawal - Removed Wood's on 08/25 - Decreased 08/27 Methadone to 50 mg d/t lethargy Resolved Assessment & Plan (09/08/2024 1:38 PM CDT): - on 08/23 and 08/24 ----> likely toxic from her polypharmacy - Weaned Dilaudid, Oxycodone, Atarax, flexeril on 08/24 ---> keep them to avoid withdrawal with her hx of illicit drug use ---> our goal is to avoid her leaving AMA because of withdrawal - Removed Wood's on 08/25 - Decreased 08/27 Methadone to 50 mg d/t lethargy Resolved Assessment & Plan (09/07/2024 7:42 PM CDT): - on 08/23 and 08/24 ----> likely toxic from her polypharmacy - Weaned Dilaudid, Oxycodone, Atarax, flexeril on 08/24 ---> keep them to avoid withdrawal with her hx of illicit drug use ---> our goal is to avoid her leaving AMA because of withdrawal - Removed Wood's on 08/25 - Decreased 08/27 Methadone to 50 mg d/t lethargy Resolved Assessment & Plan (09/06/2024 6:03 AM CDT): - on 08/23 and 08/24 ----> likely toxic from her polypharmacy - Weaned Dilaudid, Oxycodone, Atarax, flexeril on 08/24 ---> keep them to avoid withdrawal with her hx of illicit drug use ---> our goal is to avoid her leaving AMA because of withdrawal - Removed Wood's on 08/25 - Decreased 08/27 Methadone to 50 mg d/t lethargy Resolved Assessment & Plan (2024 7:59 AM CDT): - on 08/23 and 08/24 ----> likely toxic from her polypharmacy - Weaned Dilaudid, Oxycodone, Atarax, flexeril on 08/24 ---> keep them to avoid withdrawal with her hx of illicit drug use ---> our goal is to avoid her leaving AMA because of withdrawal - Removed Wood's on 08/25 - Decreased 08/27 Methadone to 50 mg d/t lethargy Resolved Assessment & Plan (09/04/2024 7:56 AM CDT): - on 08/23 and 08/24 ----> likely toxic from her polypharmacy - Weaned Dilaudid, Oxycodone, Atarax, flexeril on 08/24 ---> keep them to avoid withdrawal with her hx of illicit drug use ---> our goal is to avoid her leaving AMA because of withdrawal - Removed Wood's on 08/25 - Decreased 08/27 Methadone to 50 mg d/t lethargy Resolved Assessment & Plan (09/03/2024 4:35 PM CDT): - on 08/23 and 08/24 ----> likely toxic from her polypharmacy - Weaned Dilaudid, Oxycodone, Atarax, flexeril on 08/24 ---> keep them to avoid withdrawal with her hx of illicit drug use ---> our goal is to avoid her leaving AMA because of withdrawal - Removed Wood's on 08/25 - Decreased 08/27 Methadone to 50 mg d/t lethargy Resolved Assessment & Plan (09/02/2024 4:41 PM CDT): - on 08/23 and 08/24 ----> likely toxic from her polypharmacy - Weaned Dilaudid, Oxycodone, Atarax, flexeril on 08/24 ---> keep them to avoid withdrawal with her hx of illicit drug use ---> our goal is to avoid her leaving AMA because of withdrawal - Removed Wood's on 08/25 - Decreased 08/27 Methadone to 50 mg d/t lethargy Resolved Assessment & Plan (09/01/2024 10:49 AM CDT): - on 08/23 and 08/24 ----> likely toxic from her polypharmacy - Weaned Dilaudid, Oxycodone, Atarax, flexeril on 08/24 ---> keep them to avoid withdrawal with her hx of illicit drug use ---> our goal is to avoid her leaving AMA because of withdrawal - Removed Wood's on 08/25 - still sleepy (but easy to wake up and AO4) on 08/27 ---> will decrease Methadone to 50 mg Assessment & Plan (08/31/2024 5:05 PM CDT): - on 08/23 and 08/24 ----> likely toxic from her polypharmacy - Weaned Dilaudid, Oxycodone, Atarax, flexeril on 08/24 ---> keep them to avoid withdrawal with her hx of illicit drug use ---> our goal is to avoid her leaving AMA because of withdrawal - Removed Wood's on 08/25 - still sleepy (but easy to wake up and AO4) on 08/27 ---> will decrease Methadone to 50 mg Assessment & Plan (08/30/2024 1:00 PM CDT): - on 08/23 and 08/24 ----> likely toxic from her polypharmacy - Weaned Dilaudid, Oxycodone, Atarax, flexeril on 08/24 ---> keep them to avoid withdrawal with her hx of illicit drug use ---> our goal is to avoid her leaving AMA because of withdrawal - Removed Wood's on 08/25 - still sleepy (but easy to wake up and AO4) on 08/27 ---> will decrease Methadone to 50 mg Assessment & Plan (08/29/2024 4:00 PM CDT): - on 08/23 and 08/24 ----> likely toxic from her polypharmacy - Weaned Dilaudid, Oxycodone, Atarax, flexeril on 08/24 ---> keep them to avoid withdrawal with her hx of illicit drug use ---> our goal is to avoid her leaving AMA because of withdrawal - Removed Wood's on 08/25 - still sleepy (but easy to wake up and AO4) on 08/27 ---> will decrease Methadone to 50 mg Assessment & Plan (08/28/2024 3:14 PM CDT): - on 08/23 and 08/24 ----> likely toxic from her polypharmacy - Weaned Dilaudid, Oxycodone, Atarax, flexeril on 08/24 ---> keep them to avoid withdrawal with her hx of illicit drug use ---> our goal is to avoid her leaving AMA because of withdrawal - Removed Wood's on 08/25 - still sleepy (but easy to wake up and AO4) on 08/27 ---> will decrease Methadone to 50 mg Assessment & Plan (08/27/2024 5:42 PM CDT): - on 08/23 and 08/24 ----> likely toxic from her polypharmacy - Weaned Dilaudid, Oxycodone, Atarax, flexeril on 08/24 ---> keep them to avoid withdrawal with her hx of illicit drug use ---> our goal is to avoid her leaving AMA because of withdrawal - Removed Wood's on 08/25 - still sleepy (but easy to wake up and AO4) on 08/27 ---> will decrease Methadone to 50 mg Assessment & Plan (08/26/2024 3:19 PM CDT): - on 08/23 and 08/24 ----> likely toxic from her polypharmacy - Weaned Dilaudid, Oxycodone, Atarax, flexeril on 08/24 ---> keep them to avoid withdrawal with her hx of illicit drug use ---> our goal is to avoid her leaving AMA because of withdrawal - Voiding trial after removing her Wood's (was inserted in ICU on 08/09 and removed 08/25) --> bladder scan since then showed 175-125 ml Assessment & Plan (08/25/2024 4:11 PM CDT): - on 08/23 and 08/24 ----> likely toxic from her polypharmacy - Weaned Dilaudid, Oxycodone, Atarax, flexeril on 08/24 ---> keep them to avoid withdrawal with her hx of illicit drug use ---> our goal is to avoid her leaving AMA because of withdrawal - Voiding trial to remove her Wood's that was inserted in ICU on 08/09 Assessment & Plan (08/24/2024 5:42 PM CDT): - on 08/23 and 08/24 ----> likely toxic from her polypharmacy - Will wean Dilaudid, Oxycodone, Atarax, flexeril for now ---> keep them to avoid withdrawal with her hx of illicit drug use ---> our goal is to avoid her leaving AMA - will wean phenergan if still in trouble Abscess of right hand 08/24/2024 Assessment & Plan (10/01/2024 12:21 PM CDT): - S/p bedside I&D on 08/07 - Orthopedic signed off, on 08/21; recommended to keep dressing changes daily. - NWB RUE, volar slab for soft tissue rest RESOLVED Assessment & Plan (09/30/2024 2:33 PM CDT): - S/p bedside I&D on 08/07 - Orthopedic signed off, on 08/21; recommended to keep dressing changes daily. - NWB RUE, volar slab for soft tissue rest RESOLVED Assessment & Plan (09/29/2024 1:49 PM CDT): - S/p bedside I&D on 08/07 - Orthopedic signed off, on 08/21; recommended to keep dressing changes daily. - NWB RUE, volar slab for soft tissue rest RESOLVED Assessment & Plan (09/28/2024 3:38 PM CDT): - S/p bedside I&D on 08/07 - Orthopedic signed off, on 08/21; recommended to keep dressing changes daily. - NWB RUE, volar slab for soft tissue rest RESOLVED Assessment & Plan (09/27/2024 12:58 PM CDT): - S/p bedside I&D on 08/07 - Orthopedic signed off, on 08/21; recommended to keep dressing changes daily. - NWB RUE, volar slab for soft tissue rest RESOLVED Assessment & Plan (09/26/2024 3:45 PM CDT): - S/p bedside I&D on 08/07 - Orthopedic signed off, on 08/21; recommended to keep dressing changes daily. - NWB RUE, volar slab for soft tissue rest RESOLVED Assessment & Plan (09/25/2024 1:31 PM CDT): - S/p bedside I&D on 08/07 - Orthopedic signed off, on 08/21; recommended to keep dressing changes daily. - NWB RUE, volar slab for soft tissue rest RESOLVED Assessment & Plan (09/24/2024 4:19 PM CDT): - S/p bedside I&D on 08/07 - Orthopedic signed off, on 08/21; recommended to keep dressing changes daily. - NWB RUE, volar slab for soft tissue rest RESOLVED Assessment & Plan (09/23/2024 11:48 AM CDT): - S/p bedside I&D on 08/07 - Orthopedic signed off, on 08/21; recommended to keep dressing changes daily. - NWB RUE, volar slab for soft tissue rest RESOLVED Assessment & Plan (09/22/2024 2:21 PM CDT): - S/p bedside I&D on 08/07 - Orthopedic signed off, on 08/21; recommended to keep dressing changes daily. - NWB RUE, volar slab for soft tissue rest RESOLVED Assessment & Plan (09/21/2024 4:45 PM CDT): - S/p bedside I&D on 08/07 - Orthopedic signed off, on 08/21; recommended to keep dressing changes daily. - NWB RUE, volar slab for soft tissue rest RESOLVED Assessment & Plan (09/20/2024 1:12 PM CDT): - S/p bedside I&D on 08/07 - Orthopedic signed off, on 08/21; recommended to keep dressing changes daily. - NWB RUE, volar slab for soft tissue rest RESOLVED Assessment & Plan (09/19/2024 4:58 PM CDT): - S/p bedside I&D on 08/07 - Orthopedic signed off, on 08/21; recommended to keep dressing changes daily. - NWB RUE, volar slab for soft tissue rest RESOLVED Assessment & Plan (09/18/2024 3:35 PM CDT): - S/p bedside I&D on 08/07 - Orthopedic signed off, on 08/21; recommended to keep dressing changes daily. - NWB RUE, volar slab for soft tissue rest RESOLVED Assessment & Plan (09/17/2024 3:18 PM CDT): - S/p bedside I&D on 08/07 - Orthopedic signed off, on 08/21 ---> recommended to keep dressing changes daily. - NWB RUE, volar slab for soft tissue rest RESOLVED Assessment & Plan (09/16/2024 12:18 PM CDT): - S/p bedside I&D on 08/07 - Orthopedic signed off, on 08/21 ---> recommended to keep dressing changes daily. - NWB RUE, volar slab for soft tissue rest RESOLVED Assessment & Plan (09/15/2024 1:15 PM CDT): - S/p bedside I&D on 08/07 - Orthopedic signed off, on 08/21 ---> recommended to keep dressing changes daily. - NWB RUE, volar slab for soft tissue rest RESOLVED Assessment & Plan (09/14/2024 5:05 PM CDT): - S/p bedside I&D on 08/07 - Orthopedic signed off, on 08/21 ---> recommended to keep dressing changes daily. - NWB RUE, volar slab for soft tissue rest RESOLVED Assessment & Plan (09/13/2024 1:28 PM CDT): - S/p bedside I&D on 08/07 - Orthopedic signed off, on 08/21 ---> recommended to keep dressing changes daily. - NWB RUE, volar slab for soft tissue rest RESOLVED Assessment & Plan (09/12/2024 1:13 PM CDT): - S/p bedside I&D on 08/07 - Orthopedic signed off, on 08/21 ---> recommended to keep dressing changes daily. - NWB RUE, volar slab for soft tissue rest RESOLVED Assessment & Plan (09/11/2024 5:22 PM CDT): - S/p bedside I&D on 08/07 - Orthopedic signed off, on 08/21 ---> recommended to keep dressing changes daily. - NWB RUE, volar slab for soft tissue rest HEALED - Needs outpatient follow up with Ortho Assessment & Plan (09/10/2024 7:45 AM CDT): - S/p bedside I&D on 08/07 - Orthopedic signed off, on 08/21 ---> recommended to keep dressing changes daily. - NWB RUE, volar slab for soft tissue rest - Needs outpatient follow up with Ortho Assessment & Plan (09/09/2024 7:28 AM CDT): - S/p bedside I&D on 08/07 - Orthopedic signed off, on 08/21 ---> recommended to keep dressing changes daily. - NWB RUE, volar slab for soft tissue rest - Needs outpatient follow up with Ortho Assessment & Plan (09/08/2024 1:38 PM CDT): - S/p bedside I&D on 08/07 - Orthopedic signed off, on 08/21 ---> recommended to keep dressing changes daily. - NWB RUE, volar slab for soft tissue rest - Needs outpatient follow up with Ortho Assessment & Plan (09/07/2024 7:42 PM CDT): - S/p bedside I&D on 08/07 - Orthopedic signed off, on 08/21 ---> recommended to keep dressing changes daily. - NWB RUE, volar slab for soft tissue rest - Needs outpatient follow up with Ortho Assessment & Plan (09/06/2024 6:03 AM CDT): - S/p bedside I&D on 08/07 - Orthopedic signed off, on 08/21 ---> recommended to keep dressing changes daily. - NWB RUE, volar slab for soft tissue rest - Needs outpatient follow up with Ortho Assessment & Plan (2024 7:59 AM CDT): - S/p bedside I&D on 08/07 - Orthopedic signed off, on 08/21 ---> recommended to keep dressing changes daily. - NWB RUE, volar slab for soft tissue rest - Needs outpatient follow up with Ortho Assessment & Plan (09/04/2024 7:56 AM CDT): - S/p bedside I&D on 08/07 - Orthopedic signed off, on 08/21 ---> recommended to keep dressing changes daily. - NWB RUE, volar slab for soft tissue rest - Needs outpatient follow up with Ortho Assessment & Plan (09/03/2024 4:35 PM CDT): - S/p bedside I&D on 08/07 - Orthopedic signed off, on 08/21 ---> recommended to keep dressing changes daily. - NWB RUE, volar slab for soft tissue rest - Needs outpatient follow up with Ortho Assessment & Plan (09/02/2024 4:47 PM CDT): - S/p bedside I&D on 08/07 - Orthopedic signed off, on 08/21 ---> recommended to keep dressing changes daily. - NWB RUE, volar slab for soft tissue rest - Needs outpatient follow up with Ortho Assessment & Plan (09/01/2024 10:49 AM CDT): - S/p bedside I&D on 08/07 - Orthopedic signed off, on 08/21 ---> recommended to keep dressing changes daily. - NWB RUE, volar slab for soft tissue rest - Needs outpatient follow up with Ortho Assessment & Plan (08/31/2024 5:05 PM CDT): - S/p bedside I&D on 08/07 - Orthopedic signed off, on 08/21 ---> recommended to keep dressing changes daily. - NWB RUE, volar slab for soft tissue rest - Needs outpatient follow up with Ortho Assessment & Plan (08/30/2024 1:00 PM CDT): - S/p bedside I&D on 08/07 - Orthopedic signed off, on 08/21 ---> recommended to keep dressing changes daily. - NWB RUE, volar slab for soft tissue rest - Needs outpatient follow up with Ortho Assessment & Plan (08/29/2024 4:00 PM CDT): - S/p bedside I&D on 08/07 - Orthopedic signed off, on 08/21 ---> recommended to keep dressing changes daily. - NWB RUE, volar slab for soft tissue rest - Needs outpatient follow up with Ortho Assessment & Plan (08/28/2024 3:14 PM CDT): - S/p bedside I&D on 08/07 - Orthopedic signed off, on 08/21 ---> recommended to keep dressing changes daily. - NWB RUE, volar slab for soft tissue rest - Needs outpatient follow up with Ortho Assessment & Plan (08/27/2024 5:42 PM CDT): - S/p bedside I&D on 08/07 - Orthopedic signed off, on 08/21 ---> recommended to keep dressing changes daily. - NWB RUE, volar slab for soft tissue rest - Needs outpatient follow up with Ortho Assessment & Plan (08/26/2024 2:31 PM CDT): - S/p bedside I&D on 08/07 - Orthopedic signed off, on 08/21 ---> recommended to keep dressing changes daily. - NWB RUE, volar slab for soft tissue rest - Needs outpatient follow up with Ortho Assessment & Plan (08/25/2024 3:52 PM CDT): - S/p bedside I&D on 08/07 - Orthopedic signed off, on 08/21 ---> recommended to keep dressing changes daily. - NWB RUE, volar slab for soft tissue rest - Needs outpatient follow up with Ortho Assessment & Plan (08/24/2024 5:42 PM CDT): - S/p bedside I&D on 08/07 - Orthopedic signed off, on 08/21 ---> recommended to keep dressing changes daily. - NWB RUE, volar slab for soft tissue rest - Needs outpatient follow up with Ortho Pleural effusion on right 08/19/2024 Assessment & Plan (10/01/2024 12:21 PM CDT): loculated - Seen by [facility]; chest tube placed on 08/21 to suction - 08/22 Pleural fluid is Exudate per Light's criteria as Ptn high. Cultures negative - Chest tube removed by IP on 08/24; s/p Occlusive dressing for 48 hours - STABLE Assessment & Plan (09/30/2024 2:33 PM CDT): loculated - Seen by [facility]; chest tube placed on 08/21 to suction - 08/22 Pleural fluid is Exudate per Light's criteria as Ptn high. Cultures negative - Chest tube removed by IP on 08/24; s/p Occlusive dressing for 48 hours - STABLE Assessment & Plan (09/29/2024 1:49 PM CDT): loculated - Seen by [facility]; chest tube placed on 08/21 to suction - 08/22 Pleural fluid is Exudate per Light's criteria as Ptn high. Cultures negative - Chest tube removed by IP on 08/24; s/p Occlusive dressing for 48 hours - STABLE Assessment & Plan (09/28/2024 3:38 PM CDT): loculated - Seen by [facility]; chest tube placed on 08/21 to suction - 08/22 Pleural fluid is Exudate per Light's criteria as Ptn high. Cultures negative - Chest tube removed by IP on 08/24; s/p Occlusive dressing for 48 hours - STABLE Assessment & Plan (09/27/2024 12:58 PM CDT): loculated - Seen by [facility]; chest tube placed on 08/21 to suction - 08/22 Pleural fluid is Exudate per Light's criteria as Ptn high. Cultures negative - Chest tube removed by IP on 08/24; s/p Occlusive dressing for 48 hours - STABLE Assessment & Plan (09/26/2024 3:45 PM CDT): loculated - Seen by [facility]; chest tube placed on 08/21 to suction - 08/22 Pleural fluid is Exudate per Light's criteria as Ptn high. Cultures negative - Chest tube removed by IP on 08/24; s/p Occlusive dressing for 48 hours - STABLE Assessment & Plan (09/25/2024 1:31 PM CDT): loculated - Seen by [facility]; chest tube placed on 08/21 to suction - 08/22 Pleural fluid is Exudate per Light's criteria as Ptn high. Cultures negative - Chest tube removed by IP on 08/24; s/p Occlusive dressing for 48 hours - Stable Assessment & Plan (09/24/2024 4:19 PM CDT): loculated - Seen by [facility]; chest tube placed on 08/21 to suction - 08/22 Pleural fluid is Exudate per Light's criteria as Ptn high. Cultures negative - Chest tube removed by IP on 08/24; s/p Occlusive dressing for 48 hours - Stable Assessment & Plan (09/23/2024 11:48 AM CDT): loculated - Seen by [facility]; chest tube placed on 08/21 to suction - 08/22 Pleural fluid is Exudate per Light's criteria as Ptn high. Cultures negative - Chest tube removed by IP on 08/24; s/p Occlusive dressing for 48 hours - Stable Assessment & Plan (09/22/2024 2:21 PM CDT): loculated - Seen by [facility]; chest tube placed on 08/21 to suction - 08/22 Pleural fluid is Exudate per Light's criteria as Ptn high. Cultures negative - Chest tube removed by IP on 08/24; s/p Occlusive dressing for 48 hours - Stable Assessment & Plan (09/21/2024 4:45 PM CDT): loculated - Seen by [facility]; chest tube placed on 08/21 to suction - 08/22 Pleural fluid is Exudate per Light's criteria as Ptn high. Cultures negative - Chest tube removed by IP on 08/24; s/p Occlusive dressing for 48 hours - Stable Assessment & Plan (09/20/2024 1:12 PM CDT): loculated - Seen by [facility]; chest tube placed on 08/21 to suction - 08/22 Pleural fluid is Exudate per Light's criteria as Ptn high. Cultures negative - Chest tube removed by IP on 08/24; s/p Occlusive dressing for 48 hours - Stable Assessment & Plan (09/19/2024 4:58 PM CDT): loculated - Seen by [facility]; chest tube placed on 08/21 to suction - 08/22 Pleural fluid is Exudate per Light's criteria as Ptn high. Cultures negative - Chest tube removed by IP on 08/24; s/p Occlusive dressing for 48 hours - Stable Assessment & Plan (09/18/2024 3:35 PM CDT): loculated - Seen by [facility]; chest tube placed on 08/21 to suction - 08/22 Pleural fluid is Exudate per Light's criteria as Ptn high. Cultures negative - Chest tube removed by IP on 08/24; s/p Occlusive dressing for 48 hours - Stable Assessment & Plan (09/17/2024 3:18 PM CDT): loculated - Seen by [facility]---> chest tube placed on 08/21 to suction - 08/22 Pleural fluid is Exudate per Light's criteria as Ptn high. Cultures negative - Chest tube removed by IP on 08/24 ---> s/p Occlusive dressing for 48 hours - Stable Assessment & Plan (09/16/2024 12:18 PM CDT): loculated - Seen by [facility]---> chest tube placed on 08/21 to suction - 08/22 Pleural fluid is Exudate per Light's criteria as Ptn high. Cultures negative - Chest tube removed by IP on 08/24 ---> s/p Occlusive dressing for 48 hours - Stable Assessment & Plan (09/15/2024 1:15 PM CDT): loculated - Seen by [facility]---> chest tube placed on 08/21 to suction - 08/22 Pleural fluid is Exudate per Light's criteria as Ptn high. Cultures negative - Chest tube removed by IP on 08/24 ---> s/p Occlusive dressing for 48 hours - Stable Assessment & Plan (09/14/2024 5:05 PM CDT): loculated - Seen by [facility]---> chest tube placed on 08/21 to suction - 08/22 Pleural fluid is Exudate per Light's criteria as Ptn high. Cultures negative - Chest tube removed by IP on 08/24 ---> s/p Occlusive dressing for 48 hours - Stable Assessment & Plan (09/13/2024 1:28 PM CDT): loculated - Seen by [facility]---> chest tube placed on 08/21 to suction - 08/22 Pleural fluid is Exudate per Light's criteria as Ptn high. Cultures negative - Chest tube removed by IP on 08/24 ---> s/p Occlusive dressing for 48 hours - Stable Assessment & Plan (09/12/2024 1:13 PM CDT): loculated - Seen by [facility]---> chest tube placed on 08/21 to suction - 08/22 Pleural fluid is Exudate per Light's criteria as Ptn high. Cultures negative - Chest tube removed by IP on 08/24 ---> s/p Occlusive dressing for 48 hours - Stable Assessment & Plan (09/11/2024 5:22 PM CDT): loculated - Seen by [facility]---> chest tube placed on 08/21 to suction - 08/22 Pleural fluid is Exudate per Light's criteria as Ptn high. Cultures negative - Chest tube removed by IP on 08/24 ---> s/p Occlusive dressing for 48 hours - Stable Assessment & Plan (09/10/2024 7:45 AM CDT): loculated - Seen by [facility]---> chest tube placed on 08/21 to suction - 08/22 Pleural fluid is Exudate per Light's criteria as Ptn high. Cultures negative - Chest tube removed by IP on 08/24 ---> s/p Occlusive dressing for 48 hours - Stable Assessment & Plan (09/09/2024 7:28 AM CDT): loculated - Seen by [facility]---> chest tube placed on 08/21 to suction - 08/22 Pleural fluid is Exudate per Light's criteria as Ptn high. Cultures negative - Chest tube removed by IP on 08/24 ---> s/p Occlusive dressing for 48 hours - Stable Assessment & Plan (09/08/2024 1:38 PM CDT): loculated - Seen by [facility]---> chest tube placed on 08/21 to suction - 08/22 Pleural fluid is Exudate per Light's criteria as Ptn high. Cultures negative - Chest tube removed by IP on 08/24 ---> s/p Occlusive dressing for 48 hours - Stable Assessment & Plan (09/07/2024 7:42 PM CDT): loculated - Seen by [facility]---> chest tube placed on 08/21 to suction - 08/22 Pleural fluid is Exudate per Light's criteria as Ptn high. Cultures negative - Chest tube removed by IP on 08/24 ---> s/p Occlusive dressing for 48 hours - Stable Assessment & Plan (09/06/2024 6:03 AM CDT): loculated - Seen by [facility]---> chest tube placed on 08/21 to suction - 08/22 Pleural fluid is Exudate per Light's criteria as Ptn high. Cultures negative - Chest tube removed by IP on 08/24 ---> s/p Occlusive dressing for 48 hours - Stable Assessment & Plan (2024 7:59 AM CDT): loculated - Seen by [facility]---> chest tube placed on 08/21 to suction - 08/22 Pleural fluid is Exudate per Light's criteria as Ptn high. Cultures negative - Chest tube removed by IP on 08/24 ---> s/p Occlusive dressing for 48 hours - Stable Assessment & Plan (09/04/2024 7:56 AM CDT): loculated - Seen by [facility]---> chest tube placed on 08/21 to suction - 08/22 Pleural fluid is Exudate per Light's criteria as Ptn high. Cultures negative - Chest tube removed by IP on 08/24 ---> s/p Occlusive dressing for 48 hours - Stable Assessment & Plan (09/03/2024 4:35 PM CDT): loculated - Seen by [facility]---> chest tube placed on 08/21 to suction - 08/22 Pleural fluid is Exudate per Light's criteria as Ptn high. Cultures negative - Chest tube removed by IP on 08/24 ---> s/p Occlusive dressing for 48 hours - Stable Assessment & Plan (09/02/2024 4:41 PM CDT): loculated - Seen by [facility]---> chest tube placed on 08/21 to suction - 08/22 Pleural fluid is Exudate per Light's criteria as Ptn high. Cultures negative - Chest tube removed by IP on 08/24 ---> s/p Occlusive dressing for 48 hours - Stable Assessment & Plan (09/01/2024 10:49 AM CDT): loculated - Seen by [facility]---> chest tube placed on 08/21 to suction - 08/22 Pleural fluid is Exudate per Light's criteria as Ptn high. Cultures still pending - Chest tube removed by IP on 08/24 ---> s/p Occlusive dressing for 48 hours Assessment & Plan (08/31/2024 5:05 PM CDT): loculated - Seen by [facility]---> chest tube placed on 08/21 to suction - 08/22 Pleural fluid is Exudate per Light's criteria as Ptn high. Cultures still pending - Chest tube removed by IP on 08/24 ---> s/p Occlusive dressing for 48 hours Assessment & Plan (08/30/2024 1:00 PM CDT): loculated - Seen by [facility]---> chest tube placed on 08/21 to suction - 08/22 Pleural fluid is Exudate per Light's criteria as Ptn high. Cultures still pending - Chest tube removed by IP on 08/24 ---> s/p Occlusive dressing for 48 hours Assessment & Plan (08/29/2024 4:00 PM CDT): loculated - Seen by [facility]---> chest tube placed on 08/21 to suction - 08/22 Pleural fluid is Exudate per [facility]'s criteria as Ptn high. Cultures still pending - Chest tube removed by IP on 08/24 ---> s/p Occlusive dressing for 48 hours Assessment & Plan (08/28/2024 3:14 PM CDT): loculated - Seen by Interventional Pulmonary---> chest tube placed on 08/21 to suction - 08/22 Pleural fluid is Exudate per [facility]'s criteria as Ptn high. Cultures still pending - Chest tube removed by IP on 08/24 ---> needs Occlusive dressing for 48 hours Assessment & Plan (08/27/2024 5:42 PM CDT): loculated - Seen by Interventional Pulmonary---> chest tube placed on 08/21 to suction - 08/22 Pleural fluid is Exudate per [facility]'s criteria as Ptn high. Cultures still pending - Chest tube removed by IP on 08/24 ---> needs Occlusive dressing for 48 hours Assessment & Plan (08/26/2024 2:31 PM CDT): loculated - Seen by Interventional Pulmonary---> chest tube placed on 08/21 to suction - 08/22 Pleural fluid is Exudate per [facility]'s criteria as Ptn high. Cultures still pending - Chest tube removed by IP on 08/24 ---> keep occlusive dressing for 48 hours Assessment & Plan (08/25/2024 3:52 PM CDT): loculated - Seen by Interventional Pulmonary---> chest tube placed on 08/21 to suction - 08/22 Pleural fluid is Exudate per [facility]'s criteria as Ptn high. Cultures still pending - Chest tube removed by IP on 08/24 ---> keep occlusive dressing for 48 hours Assessment & Plan (08/24/2024 5:42 PM CDT): loculated - Seen by Interventional Pulmonary---> chest tube placed on 08/21 to suction - 08/22 Pleural fluid is Exudate per [facility]'s criteria as Ptn high. Cultures still pending - Chest tube removed by IP on 08/24 ---> keep occlusive dressing for 48 hours Assessment & Plan (08/23/2024 5:57 PM CDT): loculated - Seen by Interventional Pulmonary---> chest tube placed on 08/21 to suction - 08/22 Pleural fluid is Exudate per [facility]'s criteria as Ptn high. Cultures pending - daily CXR - may get lytics Assessment & Plan (08/22/2024 6:34 PM CDT): loculated - Seen by Interventional Pulmonary---> chest tube placed on 08/21 to suction - daily CXR - may get lytics tomorrow Assessment & Plan (08/21/2024 5:24 PM CDT): Bilateral, partially loculated Consulted IP for thoracentesis, source control and microbiology Will do thoracentesis Tuesday at Noon. Assessment & Plan (08/20/2024 1:53 PM CDT): Bilateral, partially loculated; Consulted IP for thoracentesis, source control and microbiology Will do thoracentesis Tuesday at Noon. Assessment & Plan (08/19/2024 1:53 PM CDT): Bilateral, partially loculated; Will consult IP for thoracentesis, source control and microbiology Hypoglycemia 08/19/2024 Assessment & Plan (10/01/2024 12:21 PM CDT): - TSH high at 8.29 and Free T4 is 0.58 on 08/19 but TSH was normal on 08/05; repeat outpatient in 4-6 weeks - Cortisol 9.4. A.m. cortisol within normal limits. Endocrine ruled out adrenal insufficiency. Has been hypoglycemic due to poor oral intake; on Hypoglycemic protocol and PRN glucose, PRN Dextrose, prn Dextrose IVF. - Continue mirtazapine nightly as appetite stimulant - Encouraged to increase p.o. intake/ice creams (that she likes) Assessment & Plan (09/30/2024 2:33 PM CDT): - TSH high at 8.29 and Free T4 is 0.58 on 08/19 but TSH was normal on 08/05; repeat outpatient in 4-6 weeks - Cortisol 9.4. A.m. cortisol within normal limits. Endocrine ruled out adrenal insufficiency. Has been hypoglycemic due to poor oral intake; on Hypoglycemic protocol and PRN glucose, PRN Dextrose, prn Dextrose IVF. - Continue mirtazapine nightly as appetite stimulant - Encouraged to increase p.o. intake/ice creams (that she likes) Assessment & Plan (09/29/2024 1:49 PM CDT): - TSH high at 8.29 and Free T4 is 0.58 on 08/19 but TSH was normal on 08/05; repeat outpatient in 4-6 weeks - Cortisol 9.4. A.m. cortisol within normal limits. Endocrine ruled out adrenal insufficiency. Has been hypoglycemic due to poor oral intake; on Hypoglycemic protocol and PRN glucose, PRN Dextrose, prn Dextrose IVF. - Continue mirtazapine nightly as appetite stimulant - Encouraged to increase p.o. intake/ice creams (that she likes) Assessment & Plan (09/28/2024 3:38 PM CDT): - TSH high at 8.29 and Free T4 is 0.58 on 08/19 but TSH was normal on 08/05; repeat outpatient in 4-6 weeks - Cortisol 9.4. A.m. cortisol within normal limits. Endocrine ruled out adrenal insufficiency. Has been hypoglycemic due to poor oral intake; on Hypoglycemic protocol and PRN glucose, PRN Dextrose, prn Dextrose IVF. - Continue mirtazapine nightly as appetite stimulant - Encouraged to increase p.o. intake/ice creams (that she likes) Assessment & Plan (09/27/2024 12:58 PM CDT): - TSH high at 8.29 and Free T4 is 0.58 on 08/19 but TSH was normal on 08/05; repeat outpatient in 4-6 weeks - Cortisol 9.4. A.m. cortisol within normal limits. Endocrine ruled out adrenal insufficiency. Has been hypoglycemic due to poor oral intake; on Hypoglycemic protocol and PRN glucose, PRN Dextrose, prn Dextrose IVF. - Continue mirtazapine nightly as appetite stimulant - Encouraged to increase p.o. intake/ice creams (that she likes) Assessment & Plan (09/26/2024 3:45 PM CDT): - TSH high at 8.29 and Free T4 is 0.58 on 08/19 but TSH was normal on 08/05; repeat outpatient in - weeks - Cortisol 9.4. A.m. cortisol within normal limits. Endocrine ruled out adrenal insufficiency. Has been hypoglycemic due to poor oral intake; on Hypoglycemic protocol and PRN glucose, PRN Dextrose, prn Dextrose IVF. - Continue mirtazapine nightly as appetite stimulant - Encouraged to increase p.o. intake/ice creams (that she likes) Assessment & Plan (09/25/2024 1:31 PM CDT): - TSH high at 8.29 and Free T4 is 0.58 on 08/19 but TSH was normal on 08/05; repeat outpatient in -6 weeks - Cortisol 9.4. A.m. cortisol within normal limits. Endocrine ruled out adrenal insufficiency. Has been hypoglycemic due to poor oral intake; on Hypoglycemic protocol and PRN glucose, PRN Dextrose, prn Dextrose IVF. - Continue mirtazapine nightly as appetite stimulant - Encouraged to increase p.o. intake/ice creams (that she likes) and discouraged IV fluids as it will potentially lead to fluid overload. Patient verbalized understanding. Continue to monitor glucose levels. Assessment & Plan (09/24/2024 4:19 PM CDT): - TSH high at 8.29 and Free T4 is 0.58 on 08/19 but TSH was normal on 08/05; repeat outpatient in - weeks - Cortisol 9.4. A.m. cortisol within normal limits. Endocrine ruled out adrenal insufficiency. Has been hypoglycemic due to poor oral intake; on Hypoglycemic protocol and PRN glucose, PRN Dextrose, prn Dextrose IVF. KUB on 08/25 showed large stool burden; refused enema on 08/26; added aggressive Laxatives on 08/26 plus resuming her Movantik with 3 large BMs on 08/26 and ate better. - Continue mirtazapine nightly as appetite stimulant - POC gluc QID AC - Encouraged to increase p.o. intake/ice creams (that she likes) and discouraged IV fluids as it will potentially lead to fluid overload. Patient verbalized understanding. Continue to monitor glucose levels. Assessment & Plan (09/23/2024 11:48 AM CDT): - TSH high at 8.29 and Free T4 is 0.58 on 08/19 but TSH was normal on 08/05; repeat outpatient in 4- weeks - Cortisol 9.4. A.m. cortisol within normal limits. Endocrine ruled out adrenal insufficiency. Has been hypoglycemic due to poor oral intake; on Hypoglycemic protocol and PRN glucose, PRN Dextrose, prn Dextrose IVF. KUB on 08/25 showed large stool burden; refused enema on 08/26; added aggressive Laxatives on 08/26 plus resuming her Movantik with 3 large BMs on 08/26 and ate better. - Continue mirtazapine nightly as appetite stimulant - POC gluc QID AC - Encouraged to increase p.o. intake/ice creams (that she likes) and discouraged IV fluids as it will potentially lead to fluid overload. Patient verbalized understanding. Continue to monitor glucose levels. Assessment & Plan (09/22/2024 2:21 PM CDT): - TSH high at 8.29 and Free T4 is 0.58 on 08/19 but TSH was normal on 08/05; repeat outpatient in 4-6 weeks - Cortisol 9.4. A.m. cortisol within normal limits. Endocrine ruled out adrenal insufficiency. Has been hypoglycemic due to poor oral intake; on Hypoglycemic protocol and PRN glucose, PRN Dextrose, prn Dextrose IVF. KUB on 08/25 showed large stool burden; refused enema on 08/26; added aggressive Laxatives on 08/26 plus resuming her Movantik with 3 large BMs on 08/26 and ate better. - Continue mirtazapine nightly as appetite stimulant - POC gluc QID AC - Encouraged to increase p.o. intake/ice creams (that she likes) and discouraged IV fluids as it will potentially lead to fluid overload. Patient verbalized understanding. Assessment & Plan (09/21/2024 4:45 PM CDT): - TSH high at 8.29 and Free T4 is 0.58 on 08/19 but TSH was normal on 08/05; repeat outpatient in 4-6 weeks - Cortisol 9.4. A.m. cortisol within normal limits. Endocrine ruled out adrenal insufficiency. Has been hypoglycemic due to poor oral intake; on Hypoglycemic protocol and PRN glucose, PRN Dextrose, prn Dextrose IVF. KUB on 08/25 showed large stool burden; refused enema on 08/26; added aggressive Laxatives on 08/26 plus resuming her Movantik with 3 large BMs on 08/26 and ate better. - Continue mirtazapine nightly as appetite stimulant - POC gluc QID AC - Encouraged to increase p.o. intake/ice creams (that she likes) and discouraged IV fluids as it will potentially lead to fluid overload. Assessment & Plan (09/20/2024 1:12 PM CDT): - TSH high at 8.29 and Free T4 is 0.58 on 08/19 but TSH was normal on 08/05; repeat outpatient in 4-6 weeks - Cortisol 9.4. A.m. cortisol within normal limits. Endocrine ruled out adrenal insufficiency. Has been hypoglycemic due to poor oral intake; on Hypoglycemic protocol and PRN glucose, PRN Dextrose, prn Dextrose IVF. KUB on 08/25 showed large stool burden; refused enema on 08/26; added aggressive Laxatives on 08/26 plus resuming her Movantik with 3 large BMs on 08/26 and ate better. - Continue mirtazapine nightly as appetite stimulant - POC gluc QID AC Assessment & Plan (09/19/2024 4:58 PM CDT): - TSH high at 8.29 and Free T4 is 0.58 on 08/19 but TSH was normal on 08/05; repeat outpatient in 4-6 weeks - Cortisol 9.4. A.m. cortisol within normal limits. Endocrine ruled out adrenal insufficiency. Has been hypoglycemic due to poor oral intake; on Hypoglycemic protocol and PRN glucose, PRN Dextrose, prn Dextrose IVF. KUB on 08/25 showed large stool burden; refused enema on 08/26; added aggressive Laxatives on 08/26 plus resuming her Movantik with 3 large BMs on 08/26 and ate better. - Continue mirtazapine nightly as appetite stimulant - POC gluc QID AC Assessment & Plan (09/18/2024 3:35 PM CDT): - TSH high at 8.29 and Free T4 is 0.58 on 08/19 but TSH was normal on 08/05; repeat outpatient in 4- weeks - Cortisol 9.4. A.m. cortisol within normal limits. Endocrine ruled out adrenal insufficiency. Has been hypoglycemic due to poor oral intake; on Hypoglycemic protocol and PRN glucose, PRN Dextrose, prn Dextrose IVF. KUB on 08/25 showed large stool burden; refused enema on 08/26; added aggressive Laxatives on 08/26 plus resuming her Movantik with 3 large BMs on 08/26 and ate better. - Continue mirtazapine nightly as appetite stimulant - POC gluc QID AC Assessment & Plan (09/17/2024 3:18 PM CDT): - TSH high at 8.29 and Free T4 is 0.58 on 08/19 but TSH was normal on 08/05 ----> repeat outpatient in 4- weeks Cortisol 9.4 -- Has been hypoglycemic on 08/14, 08/18, 08/21, 08/22, 08/23, 08/24 ---> due to poor oral intake ---> on Hypoglycemic protocol and PRN glucose ---> remained hypoglycemic and not eating, refusing PRN Dextrose ---> started Dextrose IVF infusion on 08/25 and weaned sedatives ---> KUB on 08/25 showed large stool burden --> refused enema on 08/26--> added aggressive Laxatives on 08/26 plus resuming her Movantik ---> had 3 large BMs on 08/26 and ate better - Continue mirtazapine nightly as appetite stimulant - POC gluc QID AC Pt with poor appetite, poor PO intake: If she doesn't meet nutritional needs, will need Dobhoff for enteral feedings. Pt does not like the hospital food choices; She is able to swallow and eats food brought by her Ex. Pt should not skip breakfast prior to HD. Appreciate Endocrinology assessment: will recheck a.m. cortisol Assessment & Plan (09/16/2024 12:18 PM CDT): - TSH high at 8.29 and Free T4 is 0.58 on 08/19 but TSH was normal on 08/05 ----> repeat outpatient in 4-6 weeks Cortisol 9.4 -- Has been hypoglycemic on 08/14, 08/18, 08/21, 08/22, 08/23, 08/24 ---> due to poor oral intake ---> on Hypoglycemic protocol and PRN glucose ---> remained hypoglycemic and not eating, refusing PRN Dextrose ---> started Dextrose IVF infusion on 08/25 and weaned sedatives ---> KUB on 08/25 showed large stool burden --> refused enema on 08/26--> added aggressive Laxatives on 08/26 plus resuming her Movantik ---> had 3 large BMs on 08/26 and ate better - Started mirtazapine nightly as appetite stimulant - POC gluc QID AC Pt with poor appetite, poor PO intake: If she doesn't meet nutritional needs, will need Dobhoff for enteral feedings. Pt does not like the hospital food choices; Seen eating Greek food 09/14 and 09/15 Pt should not skip breakfast prior to HD. Assessment & Plan (09/15/2024 1:15 PM CDT): - TSH high at 8.29 and Free T4 is 0.58 on 08/19 but TSH was normal on 08/05 ----> repeat outpatient in 4-6 weeks Cortisol 9.4 -- Has been hypoglycemic on 08/14, 08/18, 08/21, 08/22, 08/23, 08/24 ---> due to poor oral intake ---> on Hypoglycemic protocol and PRN glucose ---> remained hypoglycemic and not eating, refusing PRN Dextrose ---> started Dextrose IVF infusion on 08/25 and weaned sedatives ---> KUB on 08/25 showed large stool burden --> refused enema on 08/26--> added aggressive Laxatives on 08/26 plus resuming her Movantik ---> had 3 large BMs on 08/26 and ate better - Started mirtazapine nightly as appetite stimulant - POC gluc QID AC Pt with poor appetite, poor PO intake: If she doesn't meet nutritional needs, will need Dobhoff for enteral feedings. Pt does not like the hospital food choices; Seen eating Greek food 09/14; Pt should not skip breakfast prior to HD. Assessment & Plan (09/14/2024 5:05 PM CDT): - TSH high at 8.29 and Free T4 is 0.58 on 08/19 but TSH was normal on 08/05 ----> repeat outpatient in 4-6 weeks Cortisol 9.4 -- Has been hypoglycemic on 08/14, 08/18, 08/21, 08/22, 08/23, 08/24 ---> due to poor oral intake ---> on Hypoglycemic protocol and PRN glucose ---> remained hypoglycemic and not eating, refusing PRN Dextrose ---> started Dextrose IVF infusion on 08/25 and weaned sedatives ---> KUB on 08/25 showed large stool burden --> refused enema on 08/26--> added aggressive Laxatives on 08/26 plus resuming her Movantik ---> had 3 large BMs on 08/26 and ate better - Started mirtazapine nightly as appetite stimulant - POC gluc QID AC Pt with poor appetite, poor PO intake: If she doesn't meet nutritional needs, will need Dobhoff for enteral feedings. Pt does not like the hospital food choices; Seen eating Greek food 09/14; Assessment & Plan (09/13/2024 1:28 PM CDT): - TSH high at 8.29 and Free T4 is 0.58 on 08/19 but TSH was normal on 08/05 ----> repeat outpatient in 4-6 weeks Cortisol 9.4 -- Has been hypoglycemic on 08/14, 08/18, 08/21, 08/22, 08/23, 08/24 ---> due to poor oral intake ---> on Hypoglycemic protocol and PRN glucose ---> remained hypoglycemic and not eating, refusing PRN Dextrose ---> started Dextrose IVF infusion on 08/25 and weaned sedatives ---> KUB on 08/25 showed large stool burden --> refused enema on 08/26--> added aggressive Laxatives on 08/26 plus resuming her Movantik ---> had 3 large BMs on 08/26 and ate better - Started mirtazapine nightly as appetite stimulant - POC gluc QID AC Pt with poor appetite, poor PO intake: If she doesn't meet nutritional needs, will need Dobhoff for enteral feedings. Assessment & Plan (09/12/2024 1:13 PM CDT): - TSH high at 8.29 and Free T4 is 0.58 on 08/19 but TSH was normal on 08/05 ----> repeat outpatient in 4-6 weeks Cortisol 9.4 -- Has been hypoglycemic on 08/14, 08/18, 08/21, 08/22, 08/23, 08/24 ---> due to poor oral intake ---> on Hypoglycemic protocol and PRN glucose ---> remained hypoglycemic and not eating, refusing PRN Dextrose ---> started Dextrose IVF infusion on 08/25 and weaned sedatives ---> KUB on 08/25 showed large stool burden --> refused enema on 08/26--> added aggressive Laxatives on 08/26 plus resuming her Movantik ---> had 3 large BMs on 08/26 and ate better - Started mirtazapine nightly as appetite stimulant - POC gluc QID AC Assessment & Plan (09/11/2024 5:22 PM CDT): - TSH high at 8.29 and Free T4 is 0.58 on 08/19 but TSH was normal on 08/05 ----> repeat outpatient in 4-6 weeks Cortisol 9.4 -- Has been hypoglycemic on 08/14, 08/18, 08/21, 08/22, 08/23, 08/24 ---> due to poor oral intake ---> on Hypoglycemic protocol and PRN glucose ---> remained hypoglycemic and not eating, refusing PRN Dextrose ---> started Dextrose IVF infusion on 08/25 and weaned sedatives ---> KUB on 08/25 showed large stool burden --> refused enema on 08/26--> added aggressive Laxatives on 08/26 plus resuming her Movantik ---> had 3 large BMs on 08/26 and ate better - Started mirtazapine nightly as appetite stimulant - POC gluc D Assessment & Plan (09/10/2024 5:10 PM CDT): - TSH high at 8.29 and Free T4 is 0.58 on 08/19 but TSH was normal on 08/05 ----> repeat outpatient in 4-6 weeks Cortisol 9.4 -- Has been hypoglycemic on 08/14, 08/18, 08/21, 08/22, 08/23, 08/24 ---> due to poor oral intake ---> on Hypoglycemic protocol and PRN glucose ---> remained hypoglycemic and not eating, refusing PRN Dextrose ---> started Dextrose IVF infusion on 08/25 and weaned sedatives ---> KUB on 08/25 showed large stool burden --> refused enema on 08/26--> added aggressive Laxatives on 08/26 plus resuming her Movantik ---> had 3 large BMs on 08/26 and ate better - Started mirtazapine nightly as appetite stimulant - POC gluc D Assessment & Plan (09/09/2024 7:28 AM CDT): - TSH high at 8.29 and Free T4 is 0.58 on 08/19 but TSH was normal on 08/05 ----> repeat outpatient in 4-6 weeks Cortisol 9.4 -- Has been hypoglycemic on 08/14, 08/18, 08/21, 08/22, 08/23, 08/24 ---> due to poor oral intake ---> on Hypoglycemic protocol and PRN glucose ---> remained hypoglycemic and not eating, refusing PRN Dextrose ---> started Dextrose IVF infusion on 08/25 and weaned sedatives ---> KUB on 08/25 showed large stool burden --> refused enema on 08/26--> added aggressive Laxatives on 08/26 plus resuming her Movantik ---> had 3 large BMs on 08/26 and ate better - Started mirtazapine nightly as appetite stimulant Glc has remained stable Plan -continue poc gluc BID Assessment & Plan (09/08/2024 1:38 PM CDT): - TSH high at 8.29 and Free T4 is 0.58 on 08/19 but TSH was normal on 08/05 ----> repeat outpatient in 4-6 weeks Cortisol 9.4 -- Has been hypoglycemic on 08/14, 08/18, 08/21, 08/22, 08/23, 08/24 ---> due to poor oral intake ---> on Hypoglycemic protocol and PRN glucose ---> remained hypoglycemic and not eating, refusing PRN Dextrose ---> started Dextrose IVF infusion on 08/25 and weaned sedatives ---> KUB on 08/25 showed large stool burden --> refused enema on 08/26--> added aggressive Laxatives on 08/26 plus resuming her Movantik ---> had 3 large BMs on 08/26 and ate better - Started mirtazapine nightly as appetite stimulant Glc has remained stable Plan -continue poc gluc BID Assessment & Plan (09/07/2024 7:42 PM CDT): - TSH high at 8.29 and Free T4 is 0.58 on 08/19 but TSH was normal on 08/05 ----> repeat outpatient in 4-6 weeks Cortisol 9.4 -- Has been hypoglycemic on 08/14, 08/18, 08/21, 08/22, 08/23, 08/24 ---> due to poor oral intake ---> on Hypoglycemic protocol and PRN glucose ---> remained hypoglycemic and not eating, refusing PRN Dextrose ---> started Dextrose IVF infusion on 08/25 and weaned sedatives ---> KUB on 08/25 showed large stool burden --> refused enema on 08/26--> added aggressive Laxatives on 08/26 plus resuming her Movantik ---> had 3 large BMs on 08/26 and ate better - Started mirtazapine nightly as appetite stimulant Glc has remained stable Plan -continue poc gluc BID Assessment & Plan (09/06/2024 6:03 AM CDT): - TSH high at 8.29 and Free T4 is 0.58 on 08/19 but TSH was normal on 08/05 ----> repeat outpatient in 4-6 weeks Cortisol 9.4 -- Has been hypoglycemic on 08/14, 08/18, 08/21, 08/22, 08/23, 08/24 ---> due to poor oral intake ---> on Hypoglycemic protocol and PRN glucose ---> remained hypoglycemic and not eating, refusing PRN Dextrose ---> started Dextrose IVF infusion on 08/25 and weaned sedatives ---> KUB on 08/25 showed large stool burden --> refused enema on 08/26--> added aggressive Laxatives on 08/26 plus resuming her Movantik ---> had 3 large BMs on 08/26 and ate better - Started mirtazapine nightly as appetite stimulant Glc has remained stable Plan -continue poc gluc BID Assessment & Plan (2024 7:59 AM CDT): - TSH high at 8.29 and Free T4 is 0.58 on 08/19 but TSH was normal on 08/05 ----> repeat outpatient in 4-6 weeks Cortisol 9.4 -- Has been hypoglycemic on 08/14, 08/18, 08/21, 08/22, 08/23, 08/24 ---> due to poor oral intake ---> on Hypoglycemic protocol and PRN glucose ---> remained hypoglycemic and not eating, refusing PRN Dextrose ---> started Dextrose IVF infusion on 08/25 and weaned sedatives ---> KUB on 08/25 showed large stool burden --> refused enema on 08/26--> added aggressive Laxatives on 08/26 plus resuming her Movantik ---> had 3 large BMs on 08/26 and ate better - Started mirtazapine nightly as appetite stimulant Glc has remained stable Plan -continue poc gluc BID Assessment & Plan (09/04/2024 7:56 AM CDT): - TSH high at 8.29 and Free T4 is 0.58 on 08/19 but TSH was normal on 08/05 ----> repeat outpatient in 4-6 weeks Cortisol 9.4 -- Has been hypoglycemic on 08/14, 08/18, 08/21, 08/22, 08/23, 08/24 ---> due to poor oral intake ---> on Hypoglycemic protocol and PRN glucose ---> remained hypoglycemic and not eating, refusing PRN Dextrose ---> started Dextrose IVF infusion on 08/25 and weaned sedatives ---> KUB on 08/25 showed large stool burden --> refused enema on 08/26--> added aggressive Laxatives on 08/26 plus resuming her Movantik ---> had 3 large BMs on 08/26 and ate better - Started mirtazapine nightly as appetite stimulant Glc has remained stable Plan -continue poc gluc BID Assessment & Plan (09/03/2024 4:35 PM CDT): - TSH high at 8.29 and Free T4 is 0.58 on 08/19 but TSH was normal on 08/05 ----> repeat outpatient in 4-6 weeks Cortisol 9.4 -- Has been hypoglycemic on 08/14, 08/18, 08/21, 08/22, 08/23, 08/24 ---> due to poor oral intake ---> on Hypoglycemic protocol and PRN glucose ---> remained hypoglycemic and not eating, refusing PRN Dextrose ---> started Dextrose IVF infusion on 08/25 and weaned sedatives ---> KUB on 08/25 showed large stool burden --> refused enema on 08/26--> added aggressive Laxatives on 08/26 plus resuming her Movantik ---> had 3 large BMs on 08/26 and ate better - Started mirtazapine nightly as appetite stimulant Glc has remained stable Plan -continue poc gluc BID Assessment & Plan (09/02/2024 4:41 PM CDT): - TSH high at 8.29 and Free T4 is 0.58 on 08/19 but TSH was normal on 08/05 ----> repeat outpatient in 4-6 weeks Cortisol 9.4 -- Has been hypoglycemic on 08/14, 08/18, 08/21, 08/22, 08/23, 08/24 ---> due to poor oral intake ---> on Hypoglycemic protocol and PRN glucose ---> remained hypoglycemic and not eating, refusing PRN Dextrose ---> started Dextrose IVF infusion on 08/25 and weaned sedatives ---> KUB on 08/25 showed large stool burden --> refused enema on 08/26--> added aggressive Laxatives on 08/26 plus resuming her Movantik ---> had 3 large BMs on 08/26 and ate better - Started mirtazapine nightly as appetite stimulant Glc has remained stable Plan -continue poc gluc q8h Assessment & Plan (09/01/2024 10:49 AM CDT): - TSH high at 8.29 and Free T4 is 0.58 on 08/19 but TSH was normal on 08/05 ----> repeat outpatient in 4-6 weeks Cortisol 9.4 -- Has been hypoglycemic on 08/14, 08/18, 08/21, 08/22, 08/23, 08/24 ---> due to poor oral intake ---> on Hypoglycemic protocol and PRN glucose ---> remained hypoglycemic and not eating, refusing PRN Dextrose ---> started Dextrose IVF infusion on 08/25 and weaned sedatives ---> KUB on 08/25 showed large stool burden --> refused enema on 08/26--> added aggressive Laxatives on 08/26 plus resuming her Movantik ---> had 3 large BMs on 08/26 and ate better Plan -continue poc gluc q8h Assessment & Plan (08/31/2024 5:05 PM CDT): - TSH high at 8.29 and Free T4 is 0.58 on 08/19 but TSH was normal on 08/05 ----> repeat outpatient in 4-6 weeks Cortisol 9.4 -- Has been hypoglycemic on 08/14, 08/18, 08/21, 08/22, 08/23, 08/24 ---> due to poor oral intake ---> on Hypoglycemic protocol and PRN glucose ---> remained hypoglycemic and not eating, refusing PRN Dextrose ---> started Dextrose IVF infusion on 08/25 and weaned sedatives ---> KUB on 08/25 showed large stool burden --> refused enema on 08/26--> added aggressive Laxatives on 08/26 plus resuming her Movantik ---> had 3 large BMs on 08/26 and ate better Plan -continue poc gluc q8h Assessment & Plan (08/30/2024 1:00 PM CDT): - TSH high at 8.29 and Free T4 is 0.58 on 08/19 but TSH was normal on 08/05 ----> repeat outpatient in 4-6 weeks Cortisol 9.4 -- Has been hypoglycemic on 08/14, 08/18, 08/21, 08/22, 08/23, 08/24 ---> due to poor oral intake ---> on Hypoglycemic protocol and PRN glucose ---> remained hypoglycemic and not eating, refusing PRN Dextrose ---> started Dextrose IVF infusion on 08/25 and weaned sedatives ---> KUB on 08/25 showed large stool burden --> refused enema on 08/26--> added aggressive Laxatives on 08/26 plus resuming her Movantik ---> had 3 large BMs on 08/26 and ate better Plan -continue poc gluc q8h Assessment & Plan (08/29/2024 4:00 PM CDT): - TSH high at 8.29 and Free T4 is 0.58 on 08/19 but TSH was normal on 08/05 ----> repeat outpatient in 4-6 weeks Cortisol 9.4 -- Has been hypoglycemic on 08/14, 08/18, 08/21, 08/22, 08/23, 08/24 ---> due to poor oral intake ---> on Hypoglycemic protocol and PRN glucose ---> remained hypoglycemic and not eating, refusing PRN Dextrose ---> started Dextrose IVF infusion on 08/25 and weaned sedatives ---> KUB on 08/25 showed large stool burden --> refused enema on 08/26--> added aggressive Laxatives on 08/26 plus resuming her Movantik ---> had 3 large BMs on 08/26 and ate better Plan -continue poc gluc q8h Assessment & Plan (08/28/2024 3:14 PM CDT): - TSH high at 8.29 and Free T4 is 0.58 on 08/19 but TSH was normal on 08/05 ----> repeat outpatient in 4-6 weeks Cortisol 9.4 -- Has been hypoglycemic on 08/14, 08/18, 08/21, 08/22, 08/23, 08/24 ---> due to poor oral intake ---> on Hypoglycemic protocol and PRN glucose ---> remained hypoglycemic and not eating, refusing PRN Dextrose ---> started Dextrose IVF infusion on 08/25 and weaned sedatives ---> KUB on 08/25 showed large stool burden --> refused enema on 08/26--> added aggressive Laxatives on 08/26 plus resuming her Movantik ---> had 3 large BMs on 08/26 and ate better - will keep Dextrose IVF infusion for now since she just started eating better and glu still 80-90 Assessment & Plan (08/27/2024 5:42 PM CDT): - TSH high at 8.29 and Free T4 is 0.58 on 08/19 but TSH was normal on 08/05 ----> repeat outpatient in 4-6 weeks Cortisol 9.4 -- Has been hypoglycemic on 08/14, 08/18, 08/21, 08/22, 08/23, 08/24 ---> due to poor oral intake ---> on Hypoglycemic protocol and PRN glucose ---> remained hypoglycemic and not eating, refusing PRN Dextrose ---> started Dextrose IVF infusion on 08/25 and weaned sedatives ---> KUB on 08/25 showed large stool burden --> refused enema on 08/26--> added aggressive Laxatives on 08/26 plus resuming her Movantik ---> had 3 large BMs on 08/26 and ate better - will keep Dextrose IVF infusion for now since she just started eating better and glu still 80-90 Assessment & Plan (08/26/2024 3:19 PM CDT): - TSH high at 8.29 and Free T4 is 0.58 on 08/19 but TSH was normal on 08/05 ----> repeat outpatient in - weeks Cortisol 9.4 -- Has been hypoglycemic on 08/14, 08/18, 08/21, 08/22, 08/23, 08/24 ---> due to poor oral intake ---> on Hypoglycemic protocol and PRN glucose ---> still hypoglycemic and not eating, refusing PRN Dextrose ---> started Dextrose IVF infusion on 08/25 will decrease rate - KUB on 08/25 showed large stool burden --> refused enema on 08/26--> will add aggressive PO laxatives plus resuming her Movantik - limiting sedative so she can eat Assessment & Plan (08/25/2024 4:11 PM CDT): - TSH high at 8.29 and Free T4 is 0.58 on 08/19 but TSH was normal on 08/05 ----> repeat outpatient in 4-6 weeks Cortisol 9.4 -- Has been hypoglycemic on 08/14, 08/18, 08/21, 08/22, 08/23, 08/24 ---> due to poor oral intake ---> on Hypoglycemic protocol and PRN glucose, - limit sedative so she can eat ---> still hypoglycemic and not eating, refusing PRN Dextrose ---> start Dextrose IVF infusion Assessment & Plan (08/24/2024 5:42 PM CDT): - TSH high at 8.29 and Free T4 is 0.58 on 08/19 but TSH was normal on 08/05 ----> repeat outpatient in 4-6 weeks Cortisol 9.4 -- Has been hypoglycemic on 08/14, 08/18, 08/21, 08/22, 08/23, 08/24 ---> due to poor oral intake ---> on Hypoglycemic protocol and PRN glucose, - limit sedative so she can eat Assessment & Plan (08/23/2024 5:52 PM CDT): TSH high at 8.29 and Free T4 is 0.58 on 08/19 but TSH was normal on 08/05 ----> repeat outpatient in 4-6 weeks Cortisol 9.4 -- still hypoglycemic ---> due to poor oral intake ---> on Hypoglycemic protocol and PRN glucose Assessment & Plan (08/22/2024 6:32 PM CDT): TSH high at 8.29 and Free T4 is 0.58 on 08/19 but TSH was normal on 08/05 ----> repeat outpatient in 4-6 weeks Cortisol 9.4 -- still hypoglycemic ---> on Hypoglycemic protocol and PRN glucose Assessment & Plan (08/21/2024 5:24 PM CDT): TSH high at 8.29 and Free T4 is 0.58 on 08/19 but TSH was normal on 08/05 ----> repeat outpatient in 4-6 weeks Cortisol 9.4 Monitor POC glucose closely, support with D5 if NPO Assessment & Plan (08/20/2024 1:53 PM CDT): TSH high at 8.29 Will check free T4 Cortisol 9.4 Monitor POC glucose closely, support with D5 if NPO Assessment & Plan (08/19/2024 1:53 PM CDT): TSH high at 8.29 Will check free T4 Cortisol 9.4 Monitor POC glucose closely, support with D5 if NPO Hyponatremia 08/19/2024 Assessment & Plan (08/23/2024 5:52 PM CDT): Pt is on HD Resolved Assessment & Plan (08/22/2024 6:32 PM CDT): Pt is on HD Resolved Assessment & Plan (08/21/2024 5:24 PM CDT): Pt is on HD Resolved Assessment & Plan (08/20/2024 1:53 PM CDT): Pt is on HD, Likely due to pleural effusions. Assessment & Plan (08/19/2024 1:53 PM CDT): Pt is on HD, Likely due to pleural effusions. Acute midline thoracic back pain 08/17/2024 Assessment & Plan (10/01/2024 12:21 PM CDT): In setting of endocarditis; Previous spine CT and MRI 07/31/24 and 08/01/24 were unrevealing for infection Repeat spine imaging. CT concerning for discitis L5-S1 08/19 MRI L spine showed signs of early discitis -continue oxycodone for pain as mentioned above -abx per endocarditis plan Assessment & Plan (09/30/2024 2:33 PM CDT): In setting of endocarditis; Previous spine CT and MRI 07/31/24 and 08/01/24 were unrevealing for infection Repeat spine imaging. CT concerning for discitis L5-S1 08/19 MRI L spine showed signs of early discitis -continue oxycodone for pain as mentioned above -abx per endocarditis plan Assessment & Plan (09/29/2024 1:49 PM CDT): In setting of endocarditis; Previous spine CT and MRI 07/31/24 and 08/01/24 were unrevealing for infection Repeat spine imaging. CT concerning for discitis L5-S1 08/19 MRI L spine showed signs of early discitis -continue oxycodone for pain as mentioned above -abx per endocarditis plan Assessment & Plan (09/28/2024 3:38 PM CDT): In setting of endocarditis; Previous spine CT and MRI 07/31/24 and 08/01/24 were unrevealing for infection Repeat spine imaging. CT concerning for discitis L5-S1 08/19 MRI L spine showed signs of early discitis -continue oxycodone for pain as mentioned above -abx per endocarditis plan Assessment & Plan (09/27/2024 3:34 PM CDT): In setting of endocarditis; Previous spine CT and MRI 07/31/24 and 08/01/24 were unrevealing for infection Repeat spine imaging. CT concerning for discitis L5-S1 08/19 MRI L spine showed signs of early discitis -continue oxycodone for pain as mentioned above -abx per endocarditis plan Assessment & Plan (09/26/2024 3:45 PM CDT): In setting of endocarditis; Previous spine CT and MRI 07/31/24 and 08/01/24 were unrevealing for infection Repeat spine imaging. CT concerning for discitis L5-S1 08/19 MRI L spine showed signs of early discitis -continue oxycodone for pain as mentioned above -abs per endocarditis plan Assessment & Plan (09/25/2024 1:31 PM CDT): In setting of endocarditis; Previous spine CT and MRI 07/31/24 and 08/01/24 were unrevealing for infection; Repeat spine imaging. CT concerning for discitis L5-S1 08/19 MRI L spine showed signs of early discitis -continue oxycodone for pain as mentioned above -abs per endocarditis plan Assessment & Plan (09/24/2024 4:19 PM CDT): In setting of endocarditis; Previous spine CT and MRI 07/31/24 and 08/01/24 were unrevealing for infection; Repeat spine imaging. CT concerning for discitis L5-S1 08/19 MRI L spine showed signs of early discitis -continue oxycodone for pain as mentioned above -abs per endocarditis plan Assessment & Plan (09/23/2024 11:48 AM CDT): In setting of endocarditis; Previous spine CT and MRI 07/31/24 and 08/01/24 were unrevealing for infection; Repeat spine imaging. CT concerning for discitis L5-S1 08/19 MRI L spine showed signs of early discitis -continue oxycodone for pain as mentioned above -abs per endocarditis plan Assessment & Plan (09/22/2024 2:21 PM CDT): In setting of endocarditis; Previous spine CT and MRI 07/31/24 and 08/01/24 were unrevealing for infection; Repeat spine imaging. CT concerning for discitis L5-S1 08/19 MRI L spine showed signs of early discitis -continue oxycodone for pain as mentioned above -abs per endocarditis plan Assessment & Plan (09/21/2024 4:45 PM CDT): In setting of endocarditis; Previous spine CT and MRI 07/31/24 and 08/01/24 were unrevealing for infection; Repeat spine imaging. CT concerning for discitis L5-S1 08/19 MRI L spine showed signs of early discitis -continue oxycodone for pain as mentioned above -abs per endocarditis plan Assessment & Plan (09/20/2024 1:12 PM CDT): In setting of endocarditis; Previous spine CT and MRI 07/31/24 and 08/01/24 were unrevealing for infection; Repeat spine imaging. CT concerning for discitis L5-S1 08/19 MRI L spine showed signs of early discitis -continue oxycodone for pain as mentioned above -abs per endocarditis plan Assessment & Plan (09/19/2024 4:58 PM CDT): In setting of endocarditis; Previous spine CT and MRI 07/31/24 and 08/01/24 were unrevealing for infection; Repeat spine imaging. CT concerning for discitis L5-S1 08/19 MRI L spine showed signs of early discitis -continue methadone for pain as mentioned above -abs per endocarditis plan Assessment & Plan (09/18/2024 3:35 PM CDT): In setting of endocarditis; Previous spine CT and MRI 07/31/24 and 08/01/24 were unrevealing for infection; Repeat spine imaging. CT concerning for discitis L5-S1 08/19 MRI L spine showed signs of early discitis -continue methadone, oxycodone PRN -abs per endocarditis plan Assessment & Plan (09/17/2024 3:18 PM CDT): In setting of endocarditis; Previous spine CT and MRI 07/31/24 and 08/01/24 were unrevealing for infection; Repeat spine imaging.---> CT concerning for discitis L5-S1 08/19 MRI L spine showed signs of early discitis -continue methadone, oxycodone PRN -abs per endocarditis plan Assessment & Plan (09/16/2024 12:18 PM CDT): In setting of endocarditis; Previous spine CT and MRI 07/31/24 and 08/01/24 were unrevealing for infection; Repeat spine imaging.---> CT concerning for discitis L5-S1 08/19 MRI L spine showed signs of early discitis -continue methadone, oxycodone PRN -abs per endocarditis plan Assessment & Plan (09/15/2024 1:15 PM CDT): In setting of endocarditis; Previous spine CT and MRI 07/31/24 and 08/01/24 were unrevealing for infection; Repeat spine imaging.---> CT concerning for discitis L5-S1 08/19 MRI L spine showed signs of early discitis -continue methadone, oxycodone PRN -abs per endocarditis plan Assessment & Plan (09/14/2024 5:05 PM CDT): In setting of endocarditis; Previous spine CT and MRI 07/31/24 and 08/01/24 were unrevealing for infection; Repeat spine imaging.---> CT concerning for discitis L5-S1 08/19 MRI L spine showed signs of early discitis -continue methadone, oxycodone PRN -abs per endocarditis plan Assessment & Plan (09/13/2024 1:28 PM CDT): In setting of endocarditis; Previous spine CT and MRI 07/31/24 and 08/01/24 were unrevealing for infection; Repeat spine imaging.---> CT concerning for discitis L5-S1 08/19 MRI L spine showed signs of early discitis -continue methadone, oxycodone PRN -abs per endocarditis plan Assessment & Plan (09/12/2024 1:13 PM CDT): In setting of endocarditis; Previous spine CT and MRI 07/31/24 and 08/01/24 were unrevealing for infection; Repeat spine imaging.---> CT concerning for discitis L5-S1 08/19 MRI L spine showed signs of early discitis -continue methadone, oxycodone PRN -abs per endocarditis plan Assessment & Plan (09/11/2024 5:22 PM CDT): In setting of endocarditis; Previous spine CT and MRI 07/31/24 and 08/01/24 were unrevealing for infection; Repeat spine imaging.---> CT concerning for discitis L5-S1 08/19 MRI L spine showed signs of early discitis Plan -continue methadone, oxycodone PRN -abs per endocarditis plan Assessment & Plan (09/10/2024 7:45 AM CDT): In setting of endocarditis; Previous spine CT and MRI 07/31/24 and 08/01/24 were unrevealing for infection; Repeat spine imaging.---> CT concerning for discitis L5-S1 08/19 MRI L spine showed signs of early discitis Plan -continue methadone, oxycodone PRN -abs per endocarditis plan Assessment & Plan (09/09/2024 7:28 AM CDT): In setting of endocarditis; Previous spine CT and MRI 07/31/24 and 08/01/24 were unrevealing for infection; Repeat spine imaging.---> CT concerning for discitis L5-S1 08/19 MRI L spine showed signs of early discitis Plan -continue methadone, oxycodone PRN -abs per endocarditis plan Assessment & Plan (09/08/2024 1:38 PM CDT): In setting of endocarditis; Previous spine CT and MRI 07/31/24 and 08/01/24 were unrevealing for infection; Repeat spine imaging.---> CT concerning for discitis L5-S1 08/19 MRI L spine showed signs of early discitis Plan -continue methadone, oxycodone PRN -abs per endocarditis plan Assessment & Plan (09/07/2024 7:42 PM CDT): In setting of endocarditis; Previous spine CT and MRI 07/31/24 and 08/01/24 were unrevealing for infection; Repeat spine imaging.---> CT concerning for discitis L5-S1 08/19 MRI L spine showed signs of early discitis Plan -continue methadone, oxycodone PRN -abs per endocarditis plan Assessment & Plan (09/06/2024 6:03 AM CDT): In setting of endocarditis; Previous spine CT and MRI 07/31/24 and 08/01/24 were unrevealing for infection; Repeat spine imaging.---> CT concerning for discitis L5-S1 08/19 MRI L spine showed signs of early discitis Plan -continue methadone, oxycodone PRN -abs per endocarditis plan Assessment & Plan (2024 7:59 AM CDT): In setting of endocarditis; Previous spine CT and MRI 07/31/24 and 08/01/24 were unrevealing for infection; Repeat spine imaging.---> CT concerning for discitis L5-S1 08/19 MRI L spine showed signs of early discitis Plan -continue methadone, oxycodone PRN -abs per endocarditis plan Assessment & Plan (09/04/2024 7:56 AM CDT): In setting of endocarditis; Previous spine CT and MRI 07/31/24 and 08/01/24 were unrevealing for infection; Repeat spine imaging.---> CT concerning for discitis L5-S1 08/19 MRI L spine showed signs of early discitis Plan -continue methadone, oxycodone PRN -abs per endocarditis plan Assessment & Plan (09/03/2024 4:35 PM CDT): In setting of endocarditis; Previous spine CT and MRI 07/31/24 and 08/01/24 were unrevealing for infection; Repeat spine imaging.---> CT concerning for discitis L5-S1 08/19 MRI L spine showed signs of early discitis Plan -continue methadone, oxycodone PRN -abs per endocarditis plan Assessment & Plan (09/02/2024 4:41 PM CDT): In setting of endocarditis; Previous spine CT and MRI 07/31/24 and 08/01/24 were unrevealing for infection; Repeat spine imaging.---> CT concerning for discitis L5-S1 08/19 MRI L spine showed signs of early discitis Plan -continue methadone, oxycodone PRN -abs per endocarditis plan Assessment & Plan (09/01/2024 10:49 AM CDT): In setting of endocarditis; Previous spine CT and MRI 07/31/24 and 08/01/24 were unrevealing for infection; Repeat spine imaging.---> CT concerning for discitis L5-S1 08/19 MRI L spine showed signs of early discitis Assessment & Plan (08/31/2024 5:05 PM CDT): In setting of endocarditis; Previous spine CT and MRI 07/31/24 and 08/01/24 were unrevealing for infection; Repeat spine imaging.---> CT concerning for discitis L5-S1 08/19 MRI L spine showed signs of early discitis Assessment & Plan (08/30/2024 1:00 PM CDT): In setting of endocarditis; Previous spine CT and MRI 07/31/24 and 08/01/24 were unrevealing for infection; Repeat spine imaging.---> CT concerning for discitis L5-S1 08/19 MRI L spine showed signs of early discitis Assessment & Plan (08/29/2024 4:00 PM CDT): In setting of endocarditis; Previous spine CT and MRI 07/31/24 and 08/01/24 were unrevealing for infection; Repeat spine imaging.---> CT concerning for discitis L5-S1 08/19 MRI L spine showed signs of early discitis Assessment & Plan (08/28/2024 3:14 PM CDT): In setting of endocarditis; Previous spine CT and MRI 07/31/24 and 08/01/24 were unrevealing for infection; Repeat spine imaging.---> CT concerning for discitis L5-S1 08/19 MRI L spine showed signs of early discitis Assessment & Plan (08/27/2024 5:42 PM CDT): In setting of endocarditis; Previous spine CT and MRI 07/31/24 and 08/01/24 were unrevealing for infection; Repeat spine imaging.---> CT concerning for discitis L5-S1 08/19 MRI L spine showed signs of early discitis Assessment & Plan (08/26/2024 2:31 PM CDT): In setting of endocarditis; Previous spine CT and MRI 07/31/24 and 08/01/24 were unrevealing for infection; Repeat spine imaging. CT concerning for discitis L5-S1 MRI L spine done: signs of early discitis Assessment & Plan (08/25/2024 3:52 PM CDT): In setting of endocarditis; Previous spine CT and MRI 07/31/24 and 08/01/24 were unrevealing for infection; Repeat spine imaging. CT concerning for discitis L5-S1 MRI L spine done: signs of early discitis Assessment & Plan (08/24/2024 5:42 PM CDT): In setting of endocarditis; Previous spine CT and MRI 07/31/24 and 08/01/24 were unrevealing for infection; Repeat spine imaging. CT concerning for discitis L5-S1 MRI L spine done: signs of early discitis Assessment & Plan (08/23/2024 5:52 PM CDT): In setting of endocarditis; Previous spine CT and MRI 07/31/24 and 08/01/24 were unrevealing for infection; Repeat spine imaging. CT concerning for discitis L5-S1 MRI L spine done: signs of early discitis Assessment & Plan (08/22/2024 6:32 PM CDT): In setting of endocarditis; Previous spine CT and MRI 07/31/24 and 08/01/24 were unrevealing for infection; Repeat spine imaging. CT concerning for discitis L5-S1 MRI L spine done: signs of early discitis Assessment & Plan (08/21/2024 5:24 PM CDT): In setting of endocarditis; Previous spine CT and MRI 07/31/24 and 08/01/24 were unrevealing for infection; Repeat spine imaging. CT concerning for discitis L5-S1 MRI L spine done: signs of early discitis Assessment & Plan (08/20/2024 1:53 PM CDT): IN setting of endocarditis; Previous spine CT and MRI 07/31/24 and 08/01/24 were unrevealing for infection; Repeat spine imaging. CT concerning for discitis L5-S1 MRI L spine done: signs of early discitis; Assessment & Plan (08/19/2024 1:53 PM CDT): IN setting of endocarditis; Previous spine CT and MRI 07/31/24 and 08/01/24 were unrevealing for infection; Repeat spine imaging. CT concerning for discitis L5-S1 MRI L spine done Assessment & Plan (08/18/2024 2:49 PM CDT): IN setting of endocarditis; Previous spine CT and MRI 07/31/24 and 08/01/24 were unrevealing for infection; Repeat spine imaging. CT concerning for discitis L5-S1 MRI L spine will pre-medicate with ativan, dilaudid for pain Assessment & Plan (08/17/2024 4:26 PM CDT): IN setting of endocarditis; Previous spine CT and MRI 07/31/24 and 08/01/24 were unrevealing for infection; Repeat spine imaging. Dilaudid IV prn for pain. Iron deficiency 08/17/2024 Assessment & Plan (08/23/2024 5:52 PM CDT): Iron 12 Transferrin Sat'n 9 got IV iron TIW while here--> keep 3/week get B12 and folate Assessment & Plan (08/22/2024 6:32 PM CDT): Iron 12 Transferrin Sat'n 9 got IV iron TIW while here--> keep 3/week get B12 and folate Assessment & Plan (08/21/2024 5:24 PM CDT): Iron 12 Transferrin Sat'n 9 got IV iron TIW while here--> keep 3/week get B12 and folate Assessment & Plan (08/20/2024 1:53 PM CDT): Iron 12 Transferrin Sat'n 9 Will give IV iron TIW while here. IV iron started 08/18, to continue MWF Check B12 and folate (ordered, not resulted) Assessment & Plan (08/19/2024 1:53 PM CDT): Iron 12 Transferrin Sat'n 9 Will give IV iron TIW while here. Check B12 and folate; Assessment & Plan (08/18/2024 2:49 PM CDT): Iron 12 Transferrin Sat'n 9 Will give IV iron TIW while here. Check B12 and folate; Assessment & Plan (08/17/2024 4:26 PM CDT): Iron 12 Transferrin Sat'n 9 Will give IV iron TIW while here. Anemia of infection and chronic disease 08/15/19 25 Assessment & Plan (10/01/2024 12:21 PM CDT): - In setting of endocarditis - Iron deficient @20, iron deficit was 874mg. Continue ferric gluconate 125mg 3/weekly IV iron started 08/18; S/p 5 doses. She completed total 7 doses of iron IV - Monitor and transfuse PRN Assessment & Plan (09/30/2024 2:33 PM CDT): - In setting of endocarditis - Iron deficient @20, iron deficit was 874mg. Continue ferric gluconate 125mg 3/weekly IV iron started 08/18; S/p 5 doses. She completed total 7 doses of iron IV - Monitor and transfuse PRN Assessment & Plan (09/29/2024 1:49 PM CDT): - In setting of endocarditis - Iron deficient @20, iron deficit was 874mg. Continue ferric gluconate 125mg 3/weekly IV iron started 08/18; S/p 5 doses. She completed total 7 doses of iron IV - Monitor and transfuse PRN Assessment & Plan (09/28/2024 3:38 PM CDT): - In setting of endocarditis - Iron deficient @20, iron deficit was 874mg. Continue ferric gluconate 125mg 3/weekly IV iron started 08/18; S/p 5 doses. She completed total 7 doses of iron IV - Monitor and transfuse PRN Assessment & Plan (09/27/2024 12:58 PM CDT): - In setting of endocarditis - Iron deficient @20, iron deficit was 874mg. Continue ferric gluconate 125mg 3/weekly IV iron started 08/18; S/p 5 doses. She completed total 7 doses of iron IV - Monitor and transfuse PRN Assessment & Plan (09/26/2024 3:20 PM CDT): - In setting of endocarditis - Iron deficient @20, iron deficit was 874mg. Continue ferric gluconate 125mg 3/weekly IV iron started 08/18; S/p 5 doses. She completed total 7 doses of iron IV - Monitor and transfuse PRN Assessment & Plan (09/25/2024 1:31 PM CDT): - In setting of endocarditis - Iron deficient @20, iron deficit was 874mg. Continue ferric gluconate 125mg 3/weekly IV iron started 08/18; S/p 5 doses. She completed total 7 doses of iron IV - Monitor and transfuse PRN Assessment & Plan (09/24/2024 4:19 PM CDT): - In setting of endocarditis - Received pRBCs transfusions on 08/06, 08/11, 08/12, 08/14, 08/16 and 08/26 - Iron deficient @20, iron deficit was 874mg. Continue ferric gluconate 125mg 3/weekly IV iron started 08/18; S/p 5 doses. She completed total 7 doses of iron IV 08/14: Iron levels still low. Ferritin high, Retic count appropriate. - Monitor and transfuse PRN Assessment & Plan (09/23/2024 11:48 AM CDT): - In setting of endocarditis - Received pRBCs transfusions on 08/06, 08/11, 08/12, 08/14, 08/16 and 08/26 - Iron deficient @20, iron deficit was 874mg. Continue ferric gluconate 125mg 3/weekly IV iron started 08/18; S/p 5 doses. She completed total 7 doses of iron IV 08/14: Iron levels still low. Ferritin high, Retic count appropriate. - Monitor and transfuse PRN Assessment & Plan (09/22/2024 2:21 PM CDT): - In setting of endocarditis - Received pRBCs transfusions on 08/06, 08/11, 08/12, 08/14, 08/16 and 08/26 - Iron deficient @20, iron deficit was 874mg. Continue ferric gluconate 125mg 3/weekly IV iron started 08/18; S/p 5 doses. She completed total 7 doses of iron IV 08/14: Iron levels still low. Ferritin high, Retic count appropriate. - Monitor and transfuse PRN Assessment & Plan (09/21/2024 4:45 PM CDT): - In setting of endocarditis - Received pRBCs transfusions on 08/06, 08/11, 08/12, 08/14, 08/16 and 08/26 - Iron deficient @20, iron deficit was 874mg. Continue ferric gluconate 125mg 3/weekly IV iron started 08/18; S/p 5 doses. She completed total 7 doses of iron IV 08/14: Iron levels still low. Ferritin high, Retic count appropriate. - Monitor and transfuse PRN Assessment & Plan (09/20/2024 1:12 PM CDT): - In setting of endocarditis - Received pRBCs transfusions on 08/06, 08/11, 08/12, 08/14, 08/16 and 08/26 - Iron deficient @20, iron deficit was 874mg. Continue ferric gluconate 125mg 3/weekly IV iron started 08/18; S/p 5 doses. She completed total 7 doses of iron IV 08/14: Iron levels still low. Ferritin high, Retic count appropriate. - Monitor and transfuse PRN Assessment & Plan (09/19/2024 4:58 PM CDT): - In setting of endocarditis - Received pRBCs transfusions on 08/06, 08/11, 08/12, 08/14, 08/16 and 08/26 - Iron deficient @20, iron deficit was 874mg. Continue ferric gluconate 125mg 3/weekly IV iron started 08/18; S/p 5 doses. She completed total 7 doses of iron IV 08/14: Iron levels still low. Ferritin high, Retic count appropriate. - Monitor and transfuse PRN Assessment & Plan (09/18/2024 3:35 PM CDT): - In setting of endocarditis - Received pRBCs transfusions on 08/06, 08/11, 08/12, 08/14, 08/16 and 08/26 - Iron deficient @20, iron deficit was 874mg. Continue ferric gluconate 125mg 3/weekly IV iron started 08/18; S/p 5 doses. She completed total 7 doses of iron IV 08/14: Iron levels still low. Ferritin high, Retic count appropriate. - Monitor and transfuse PRN Assessment & Plan (09/17/2024 3:18 PM CDT): - In setting of endocarditis - Received pRBCs transfusions on 08/06, 08/11, 08/12, 08/14, 08/16 and 08/26 - Iron deficient @20, iron deficit was 874mg. Continue ferric gluconate 125mg 3/weekly IV iron started 08/18 ---> S/p 5 doses. She completed total 7 doses of iron IV 08/14: Iron levels still low Ferritin high, Retic # appropriate. - Monitor and transfuse PRN Assessment & Plan (09/16/2024 12:18 PM CDT): - In setting of endocarditis - Received pRBCs transfusions on 08/06, 08/11, 08/12, 08/14, 08/16 and 08/26 - Iron deficient @20, iron deficit was 874mg. Continue ferric gluconate 125mg 3/weekly IV iron started 08/18 ---> S/p 5 doses. She completed total 7 doses of iron IV 08/14: Iron levels still low Ferritin high, Retic # appropriate. - Monitor and transfuse PRN Assessment & Plan (09/15/2024 1:15 PM CDT): - In setting of endocarditis - Received pRBCs transfusions on 08/06, 08/11, 08/12, 08/14, 08/16 and 08/26 - Iron deficient @20, iron deficit was 874mg. Continue ferric gluconate 125mg 3/weekly IV iron started 08/18 ---> S/p 5 doses. She completed total 7 doses of iron IV 08/14: Iron levels still low Ferritin high, Retic # appropriate. - Monitor and transfuse PRN Assessment & Plan (09/14/2024 5:05 PM CDT): - In setting of endocarditis - Received pRBCs transfusions on 08/06, 08/11, 08/12, 08/14, 08/16 and 08/26 - Iron deficient @20, iron deficit was 874mg. Continue ferric gluconate 125mg 3/weekly IV iron started 08/18 ---> S/p 5 doses. She completed total 7 doses of iron IV 08/14: Iron levels still low Ferritin high, Retic # appropriate. - Monitor and transfuse PRN Assessment & Plan (09/13/2024 1:28 PM CDT): - In setting of endocarditis - Received pRBCs transfusions on 08/06, 08/11, 08/12, 08/14, 08/16 and 08/26 - Iron deficient @20, iron deficit was 874mg. Continue ferric gluconate 125mg 3/weekly IV iron started 08/18 ---> S/p 5 doses. She completed total 7 doses of iron IV 08/14: Iron levels still low Will check ferritin and retic #; consider more iron IV - Monitor and transfuse PRN Assessment & Plan (09/12/2024 1:13 PM CDT): - In setting of endocarditis - Received pRBCs transfusions on 08/06, 08/11, 08/12, 08/14, 08/16 and 08/26 - Iron deficient @20, iron deficit was 874mg. Continue ferric gluconate 125mg 3/weekly IV iron started 08/18 ---> S/p 5 doses. Will complete total 7 doses Will recheck iron level Plan - Monitor and transfuse PRN Assessment & Plan (09/11/2024 5:22 PM CDT): - In setting of endocarditis - Received pRBCs transfusions on 08/06, 08/11, 08/12, 08/14, 08/16 and 08/26 - Iron deficient @20, iron deficit was 874mg. Continue ferric gluconate 125mg 3/weekly IV iron started 08/18 ---> S/p 5 doses. Will complete total 7 doses Plan - Monitor and transfuse PRN Assessment & Plan (09/10/2024 7:45 AM CDT): - In setting of endocarditis - Received pRBCs transfusions on 08/06, 08/11, 08/12, 08/14, 08/16 and 08/26 - Iron deficient @20, iron deficit was 874mg. Continue ferric gluconate 125mg 3/weekly IV iron started 08/18 ---> S/p 5 doses. Will complete total 7 doses Plan - Monitor and transfuse PRN Assessment & Plan (09/09/2024 7:28 AM CDT): - In setting of endocarditis - Received pRBCs transfusions on 08/06, 08/11, 08/12, 08/14, 08/16 and 08/26 - Iron deficient @20, iron deficit was 874mg. Continue ferric gluconate 125mg 3/weekly IV iron started 08/18 ---> S/p 5 doses. Will complete total 7 doses Plan - Monitor and transfuse PRN Assessment & Plan (09/08/2024 1:38 PM CDT): - In setting of endocarditis - Received pRBCs transfusions on 08/06, 08/11, 08/12, 08/14, 08/16 and 08/26 - Iron deficient @20, iron deficit was 874mg. Continue ferric gluconate 125mg 3/weekly IV iron started 08/18 ---> S/p 5 doses. Will complete total 7 doses Plan - Monitor and transfuse PRN Assessment & Plan (09/07/2024 7:42 PM CDT): - In setting of endocarditis - Received pRBCs transfusions on 08/06, 08/11, 08/12, 08/14, 08/16 and 08/26 - Iron deficient @20, iron deficit was 874mg. Continue ferric gluconate 125mg 3/weekly IV iron started 08/18 ---> S/p 5 doses. Will complete total 7 doses Plan - Monitor and transfuse PRN Assessment & Plan (09/06/2024 6:03 AM CDT): - In setting of endocarditis - Received pRBCs transfusions on 08/06, 08/11, 08/12, 08/14, 08/16 and 08/26 - Iron deficient @20, iron deficit was 874mg. Continue ferric gluconate 125mg 3/weekly IV iron started 08/18 ---> S/p 5 doses. Will complete total 7 doses Plan - Monitor and transfuse PRN Assessment & Plan (2024 7:59 AM CDT): - In setting of endocarditis - Received pRBCs transfusions on 08/06, 08/11, 08/12, 08/14, 08/16 and 08/26 - Iron deficient @20, iron deficit was 874mg. Continue ferric gluconate 125mg 3/weekly IV iron started 08/18 ---> S/p 5 doses. Will complete total 7 doses Plan - Monitor and transfuse PRN Assessment & Plan (09/04/2024 7:56 AM CDT): - In setting of endocarditis - Received pRBCs transfusions on 08/06, 08/11, 08/12, 08/14, 08/16 and 08/26 - Iron deficient @20, iron deficit was 874mg. Continue ferric gluconate 125mg 3/weekly IV iron started 08/18 ---> S/p 5 doses. Will complete total 7 doses Plan - Monitor and transfuse PRN Assessment & Plan (09/03/2024 4:35 PM CDT): - In setting of endocarditis - Received pRBCs transfusions on 08/06, 08/11, 08/12, 08/14, 08/16 and 08/26 - Iron deficient @20, iron deficit was 874mg. Continue ferric gluconate 125mg 3/weekly IV iron started 08/18 ---> S/p 5 doses. Will complete total 7 doses Plan - Monitor and transfuse PRN Assessment & Plan (09/02/2024 4:41 PM CDT): - In setting of endocarditis - Received pRBCs transfusions on 08/06, 08/11, 08/12, 08/14, 08/16 and 08/26 - Iron deficient @20, iron deficit was 874mg. Continue ferric gluconate 125mg 3/weekly IV iron started 08/18 ---> S/p 5 doses. Will complete total 7 doses Plan - Monitor and transfuse PRN Assessment & Plan (09/01/2024 10:49 AM CDT): - In setting of endocarditis - Received pRBCs transfusions on 08/06, 08/11, 08/12, 08/14, 08/16 and 08/26 - Iron deficient @20, iron deficit was 874mg. Continue ferric gluconate 125mg 3/weekly IV iron started 08/18 ---> S/p 5 doses. Will complete total 7 doses - Monitor and transfuse PRN Assessment & Plan (08/31/2024 5:05 PM CDT): - In setting of endocarditis - Received pRBCs transfusions on 08/06, 08/11, 08/12, 08/14, 08/16 and 08/26 - Iron deficient @20, iron deficit was 874mg. Continue ferric gluconate 125mg 3/weekly IV iron started 08/18 ---> S/p 5 doses. Will complete total 7 doses - Monitor and transfuse PRN Assessment & Plan (08/30/2024 1:00 PM CDT): - In setting of endocarditis - Received pRBCs transfusions on 08/06, 08/11, 08/12, 08/14, 08/16 and 08/26 - Iron deficient @20, iron deficit was 874mg. Continue ferric gluconate 125mg 3/weekly IV iron started 08/18 ---> S/p 5 doses. Will complete total 7 doses - Monitor and transfuse PRN Assessment & Plan (08/29/2024 4:00 PM CDT): - In setting of endocarditis - Received pRBCs transfusions on 08/06, 08/11, 08/12, 08/14, 08/16 and 08/26 - Iron deficient @20, iron deficit was 874mg. Continue ferric gluconate 125mg 3/weekly IV iron started 08/18 ---> S/p 5 doses. Will complete total 7 doses - Monitor and transfuse PRN Assessment & Plan (08/28/2024 3:14 PM CDT): - In setting of endocarditis - Received pRBCs transfusions on 08/06, 08/11, 08/12, 08/14, 08/16 and 08/26 - Iron deficient @20, iron deficit was 874mg. Continue ferric gluconate 125mg 3/weekly IV iron started 08/18 ---> S/p 5 doses. Will complete total 7 doses - Monitor and transfuse PRN Assessment & Plan (08/27/2024 5:42 PM CDT): - In setting of endocarditis - Received pRBCs transfusions on 08/06, 08/11, 08/12, 08/14, 08/16 and 08/26 - Iron deficient @20, B12 888 ----> Will give IV iron supplement while here---> 3/weekly IV iron started 08/18 ---> got 5 doses so far - Monitor and transfuse PRN Assessment & Plan (08/26/2024 3:19 PM CDT): - In setting of endocarditis - Received pRBCs transfusions on 08/06, 08/11, 08/12, 08/14, 08/16 and 08/26 - Iron deficient @20, B12 888 ----> Will give IV iron supplement while here---> IV iron started 08/18 ---> keep 3/week, ok per ID team ---> got 4 doses so far - Monitor and transfuse PRN Assessment & Plan (08/25/2024 3:52 PM CDT): - In setting of endocarditis - 1 unit pRBCs 08/16 - Iron deficient @20, B12 888 ----> Will give IV iron supplement while here---> IV iron started 08/18 ---> keep 3/week, ok per ID team ---> got 4 doses so far - Monitor and transfuse PRN Assessment & Plan (08/24/2024 5:42 PM CDT): - In setting of endocarditis - 1 unit pRBCs 08/16 - Iron deficient @20, B12 888 ----> Will give IV iron supplement while here---> IV iron started 08/18 ---> keep 3/week, ok per ID team ---> got 4 doses so far - Monitor and transfuse PRN Assessment & Plan (08/23/2024 5:52 PM CDT): In setting of endocarditis Iron deficient; Will give IV iron supplement while here IV iron started 08/18, ---> keep 3/week, ok per ID team 1 unit pRBCs 08/16 Monitor and transfuse PRN Assessment & Plan (08/22/2024 6:32 PM CDT): In setting of endocarditis; Iron deficient; Will give IV iron supplement while here IV iron started 08/18, ---> keep 3/week, ok per ID team 1 unit pRBCs 17 Monitor and transfuse PRN Assessment & Plan (08/21/2024 5:24 PM CDT): In setting of endocarditis; Iron deficient; Will give IV iron supplement while here IV iron started 08/18, ---> keep 3/week 1 unit pRBCs 17 Monitor and transfuse PRN Assessment & Plan (08/20/2024 1:53 PM CDT): In setting of endocarditis; Iron deficient; Will give IV iron supplement while here IV iron started 08/18, to continue MWF 1 unit pRBCs 17 Monitor and transfuse prn Assessment & Plan (08/19/2024 1:53 PM CDT): In setting of endocarditis; Iron deficient; Will give IV iron supplement while here 1 unit pRBCs 08/16 Monitor and transfuse prn Assessment & Plan (08/18/2024 2:49 PM CDT): In setting of endocarditis; Iron deficient; Will give IV iron supplement while here 1 unit pRBCs 17 Monitor and transfuse prn Assessment & Plan (08/17/2024 4:26 PM CDT): In setting of endocarditis; Iron deficient; Will give IV iron supplement while here 1 unit pRBCs /17 Monitor and transfuse prn Assessment & Plan (08/16/2024 4:55 PM CDT): In setting of endocarditis; Iron deficient; Will give IV iron supplement while here 1 unit pRBCs today, 08/16 Assessment & Plan (08/15/2024 2:17 PM CDT): In setting of endocarditis; Iron deficient; Will give IV iron supplement while here if okay with nephrology and ID services. Assessment & Plan (08/14/2024 1:42 PM CDT): In setting of endocarditis; Check retic count; Check iron panel Acute kidney injury 08/06/2024 Assessment & Plan (10/01/2024 12:21 PM CDT): - Etiology of MARIELENA at this time is likely 2/2 ATN/shock with hypotension and pressor requirement, bacteremia, IV drug use, PIGN, untreated Hep C? In favor or infectious GN C3 and C4 are both low . - Per Nephrology plan is to trial Intermittent HD and monitor for renal recovery. - continues with poor renal recovery and would need to be on dialysis - Patient was able to get a dialysis chair Assessment & Plan (09/30/2024 2:33 PM CDT): - Etiology of MARIELENA at this time is likely 2/2 ATN/shock with hypotension and pressor requirement, bacteremia, IV drug use, PIGN, untreated Hep C? In favor or infectious GN C3 and C4 are both low . - Per Nephrology plan is to trial Intermittent HD and monitor for renal recovery. - continues with poor renal recovery and would need to be on dialysis - Patient was able to get a dialysis chair Assessment & Plan (09/29/2024 1:49 PM CDT): - Etiology of MARIELENA at this time is likely 2/2 ATN/shock with hypotension and pressor requirement, bacteremia, IV drug use, PIGN, untreated Hep C? In favor or infectious GN C3 and C4 are both low . - Per Nephrology plan is to trial Intermittent HD and monitor for renal recovery. - continues with poor renal recovery and would need to be on dialysis - Patient was able to get a dialysis chair Assessment & Plan (09/28/2024 3:38 PM CDT): - Etiology of MARIELENA at this time is likely 2/2 ATN/shock with hypotension and pressor requirement, bacteremia, IV drug use, PIGN, untreated Hep C? In favor or infectious GN C3 and C4 are both low . - Per Nephrology plan is to trial Intermittent HD and monitor for renal recovery. - continues with poor renal recovery and would need to be on dialysis - Patient was able to get a dialysis chair Assessment & Plan (09/27/2024 3:34 PM CDT): - Etiology of MARIELENA at this time is likely 2/2 ATN/shock with hypotension and pressor requirement, bacteremia, IV drug use, PIGN, untreated Hep C? In favor or infectious GN C3 and C4 are both low . - Per Nephrology plan is to trial Intermittent HD and monitor for renal recovery. - continues with poor renal recovery and would need to be on dialysis - Patient was able to get a dialysis chair Assessment & Plan (09/26/2024 3:20 PM CDT): - Etiology of MARIELENA at this time is likely 2/2 ATN/shock with hypotension and pressor requirement, bacteremia, IV drug use, PIGN, untreated Hep C? In favor or infectious GN C3 and C4 are both low . - Per Nephrology plan is to trial Intermittent HD and monitor for renal recovery. - continues with poor renal recovery and would need to be on dialysis - Renal SW working on HD chair placement. Assessment & Plan (09/25/2024 1:31 PM CDT): - Etiology of MARIELENA at this time is likely 2/2 ATN/shock with hypotension and pressor requirement, bacteremia, IV drug use, PIGN, untreated Hep C? In favor or infectious GN C3 and C4 are both low . - Per Nephrology plan is to trial Intermittent HD and monitor for renal recovery. - continues with poor renal recovery and would need to be on dialysis - Renal SW working on HD chair placement. Assessment & Plan (09/24/2024 4:19 PM CDT): - Etiology of MARIELENA at this time is likely 2/2 ATN/shock with hypotension and pressor requirement, bacteremia, IV drug use, PIGN, untreated Hep C? In favor or infectious GN C3 and C4 are both low . - Per Nephrology plan is to trial Intermittent HD and monitor for renal recovery. - Remains on HD MWF; started making some urine; Nephrology following - S/p Tunneled dialysis catheter and powerline insertion on 08/23 after ok w/ ID and IR. - Wood's catheter removed on 08/25 - If fails to recover from MARIELENA this hospitalization after abx are completed, will need OP HD chair (this will be a complicated dispo given hx drug use). - Renal SW working on HD chair placement. Assessment & Plan (09/23/2024 11:48 AM CDT): - Etiology of MARIELENA at this time is likely 2/2 ATN/shock with hypotension and pressor requirement, bacteremia, IV drug use, PIGN, untreated Hep C? In favor or infectious GN C3 and C4 are both low . - Per Nephrology plan is to trial Intermittent HD and monitor for renal recovery. - Remains on HD MWF; started making some urine; Nephrology following - S/p Tunneled dialysis catheter and powerline insertion on 08/23 after ok w/ ID and IR. - Wood's catheter removed on 08/25 - If fails to recover from MARIELENA this hospitalization after abx are completed, will need OP HD chair (this will be a complicated dispo given hx drug use). - Renal SW working on HD chair placement. Assessment & Plan (09/22/2024 2:21 PM CDT): - Etiology of MARIELENA at this time is likely 2/2 ATN/shock with hypotension and pressor requirement, bacteremia, IV drug use, PIGN, untreated Hep C? In favor or infectious GN C3 and C4 are both low . - Per Nephrology plan is to trial Intermittent HD and monitor for renal recovery. - Remains on HD MWF; Nephrology following - S/p Tunneled dialysis catheter and powerline insertion on 08/23 after ok w/ ID and IR. - Wood's catheter removed on 08/25 - If fails to recover from MARIELENA this hospitalization after abx are completed, will need OP HD chair (this will be a complicated dispo given hx drug use). - Renal SW working on HD chair placement. Assessment & Plan (09/21/2024 4:45 PM CDT): - Etiology of MARIELENA at this time is likely 2/2 ATN/shock with hypotension and pressor requirement, bacteremia, IV drug use, PIGN, untreated Hep C? In favor or infectious GN C3 and C4 are both low . - Per Nephrology plan is to trial Intermittent HD and monitor for renal recovery. - Remains on HD MWF; Nephrology following - S/p Tunneled dialysis catheter and powerline insertion on 08/23 after ok w/ ID and IR. - Wood's catheter removed on 08/25 - If fails to recover from MARIELENA this hospitalization after abx are completed, will need OP HD chair (this will be a complicated dispo given hx drug use). - Renal SW working on HD chair placement. Assessment & Plan (09/20/2024 1:12 PM CDT): - Etiology of MARIELENA at this time is likely 2/2 ATN/shock with hypotension and pressor requirement, bacteremia, IV drug use, PIGN, untreated Hep C? In favor or infectious GN C3 and C4 are both low . - Per Nephrology plan is to trial Intermittent HD and monitor for renal recovery. - Remains on HD MWF; Nephrology following - S/p Tunneled dialysis catheter and powerline insertion on 08/23 after ok w/ ID and IR. - Wood's catheter removed on 08/25 - If fails to recover from MARIELENA this hospitalization after abx are completed, will need OP HD chair (this will be a complicated dispo given hx drug use). - Renal SW working on HD chair placement. Assessment & Plan (09/19/2024 4:58 PM CDT): - Etiology of MARIELENA at this time is likely 2/2 ATN/shock with hypotension and pressor requirement, bacteremia, IV drug use, PIGN, untreated Hep C? In favor or infectious GN C3 and C4 are both low . - Per Nephrology plan is to trial Intermittent HD and monitor for renal recovery. - Remains on HD MWF; Nephrology following - S/p Tunneled dialysis catheter and powerline insertion on 08/23 after ok w/ ID and IR. - Wood's catheter removed on 08/25 - If fails to recover from MARIELENA this hospitalization after abx are completed, will need OP HD chair (this will be a complicated dispo given hx drug use). - Renal SW working on HD chair placement. Assessment & Plan (09/18/2024 3:35 PM CDT): - Etiology of MARIELENA at this time is likely 2/2 ATN/shock with hypotension and pressor requirement, bacteremia, IV drug use, PIGN, untreated Hep C? In favor or infectious GN C3 and C4 are both low . - Per Nephrology plan is to trial Intermittent HD and monitor for renal recovery. - Remains on HD MWF; Nephrology following - S/p Tunneled dialysis catheter and powerline insertion on 08/23 after ok w/ ID and IR. - Wood's catheter removed on 08/25 - If fails to recover from MARIELENA this hospitalization after abx are completed, will need OP HD chair (this will be a complicated dispo given hx drug use) - Renal SW working on HD chair placement Assessment & Plan (09/17/2024 3:18 PM CDT): - Etiology of MARIELENA at this time is likely 2/2 ATN/shock with hypotension and pressor requirement, bacteremia, IV drug use, PIGN, untreated Hep C? In favor or infectious GN C3 and C4 are both low . - Per Nephrology plan is to trial Intermittent HD and monitor for renal recovery. - Remains on HD MWF; Nephrology following - S/p Tunneled dialysis catheter and powerline insertion on 08/23 after ok w/ ID and IR. - Wood's catheter removed on 08/25 May need to continue as outpatient, monitoring for renal recovery while completing inpt abx course - Renal SW working on HD chair placement Assessment & Plan (09/16/2024 12:18 PM CDT): - Etiology of MARIELENA at this time is likely 2/2 ATN/shock with hypotension and pressor requirement, bacteremia, IV drug use, PIGN, untreated Hep C? In favor or infectious GN C3 and C4 are both low . - Per Nephrology plan is to trial Intermittent HD and monitor for renal recovery. - Remains on HD MWF; Nephrology following - S/p Tunneled dialysis catheter and powerline insertion on 08/23 after ok w/ ID and IR. - Wood's catheter removed on 08/25 May need to continue as outpatient, monitoring for renal recovery while completing inpt abx course - Renal SW working on HD chair placement Assessment & Plan (09/15/2024 1:15 PM CDT): - Etiology of MARIELENA at this time is likely 2/2 ATN/shock with hypotension and pressor requirement, bacteremia, IV drug use, PIGN, untreated Hep C? In favor or infectious GN C3 and C4 are both low . - Per Nephrology plan is to trial Intermittent HD and monitor for renal recovery. - Remains on HD MWF; Nephrology following - S/p Tunneled dialysis catheter and powerline insertion on 08/23 after ok w/ ID and IR. - Wood's catheter removed on 08/25 May need to continue as outpatient, monitoring for renal recovery while completing inpt abx course - Renal SW working on HD chair placement Assessment & Plan (09/14/2024 5:05 PM CDT): - Etiology of MARIELENA at this time is likely 2/2 ATN/shock with hypotension and pressor requirement, bacteremia, IV drug use, PIGN, untreated Hep C? In favor or infectious GN C3 and C4 are both low . - Per Nephrology plan is to trial Intermittent HD and monitor for renal recovery. - Remains on HD MWF; Nephrology following - S/p Tunneled dialysis catheter and powerline insertion on 08/23 after ok w/ ID and IR. - Wood's catheter removed on 08/25 May need to continue as outpatient, monitoring for renal recovery while completing inpt abx course - Renal SW working on HD chair placement Assessment & Plan (09/13/2024 1:28 PM CDT): - Etiology of MARIELENA at this time is likely 2/2 ATN/shock with hypotension and pressor requirement, bacteremia, IV drug use, PIGN, untreated Hep C? In favor or infectious GN C3 and C4 are both low . - Per Nephrology plan is to trial Intermittent HD and monitor for renal recovery. - Remains on HD MWF; Nephrology following - S/p Tunneled dialysis catheter and powerline insertion on 08/23 after ok w/ ID and IR. - Wood's catheter removed on 08/25 May need to continue as outpatient, monitoring for renal recovery while completing inpt abx course - Renal SW working on HD chair placement Assessment & Plan (09/12/2024 1:13 PM CDT): - Etiology of MARIELENA at this time is likely 2/2 ATN/shock with hypotension and pressor requirement, bacteremia, IV drug use, PIGN, untreated Hep C? In favor or infectious GN C3 and C4 are both low . - Per Nephrology plan is to trial Intermittent HD and monitor for renal recovery. - Remains on HD MWF; Nephrology following - S/p Tunneled dialysis catheter and powerline insertion on 08/23 after ok w/ ID and IR. - S/p lasix challenge - Wood's catheter removed on 08/25 May need to continue as outpatient, monitoring for renal recovery while completing inpt abx course - Renal Sw to work on HD chair placement Assessment & Plan (09/11/2024 5:22 PM CDT): - Etiology of MARIELENA at this time is likely 2/2 ATN/shock with hypotension and pressor requirement, bacteremia, IV drug use, PIGN, untreated Hep C? In favor or infectious GN C3 and C4 are both low . - Per Nephrology plan is to trial Intermittent HD and monitor for renal recovery. - Remains on HD MWF; Nephrology following - S/p Tunneled dialysis catheter and powerline insertion on 08/23 after ok w/ ID and IR. - S/p lasix challenge - Wood's catheter removed on 08/25 Plan - Remains on HD MWF; May need to continue as outpatient, monitoring for renal recovery while completing inpt abx course - Renal Sw to work on HD chair placement Assessment & Plan (09/10/2024 5:10 PM CDT): - Etiology of MARIELENA at this time is likely 2/2 ATN/shock with hypotension and pressor requirement, bacteremia, IV drug use, PIGN, untreated Hep C? In favor or infectious GN C3 and C4 are both low . - Per Nephrology plan is to trial Intermittent HD and monitor for renal recovery. - Remains on HD MWF; Nephrology following - S/p Tunneled dialysis catheter and powerline insertion on 08/23 after ok w/ ID and IR. - S/p lasix challenge - Wood's catheter removed on 08/25 Plan - Remains on HD MWF; May need to continue as outpatient, monitoring for renal recovery while completing inpt abx course - Renal Sw to work on HD chair placement Assessment & Plan (09/09/2024 7:28 AM CDT): - Etiology of MARIELENA at this time is likely 2/2 ATN/shock with hypotension and pressor requirement, bacteremia, IV drug use, PIGN, untreated Hep C? In favor or infectious GN C3 and C4 are both low . - Per Nephrology plan is to trial Intermittent HD and monitor for renal recovery. - Remains on HD MWF; Nephrology following - S/p Tunneled dialysis catheter and powerline insertion on 08/23 after ok w/ ID and IR. - S/p lasix challenge - Wood's catheter removed on 08/25 Plan - Remains on HD MWF; May need to continue as outpatient, monitoring for renal recovery while completing inpt abx course - 09/08 - pre renal, give one dose of lasix IV - Renal Sw to work on HD chair placement Assessment & Plan (09/08/2024 1:38 PM CDT): - Etiology of MARIELENA at this time is likely 2/2 ATN/shock with hypotension and pressor requirement, bacteremia, IV drug use, PIGN, untreated Hep C? In favor or infectious GN C3 and C4 are both low . - Per Nephrology plan is to trial Intermittent HD and monitor for renal recovery. - Remains on HD MWF; Nephrology following - S/p Tunneled dialysis catheter and powerline insertion on 08/23 after ok w/ ID and IR. - S/p lasix challenge - Wood's catheter removed on 08/25 Plan - Remains on HD MWF; May need to continue as outpatient, monitoring for renal recovery while completing inpt abx course - 09/08 - pre renal, give one dose of lasix IV - Renal Sw to work on HD chair placement Assessment & Plan (09/07/2024 7:42 PM CDT): - Etiology of MARIELENA at this time is likely 2/2 ATN/shock with hypotension and pressor requirement, bacteremia, IV drug use, PIGN, untreated Hep C? In favor or infectious GN C3 and C4 are both low . - Per Nephrology plan is to trial Intermittent HD and monitor for renal recovery. - Remains on HD MWF; Nephrology following - S/p Tunneled dialysis catheter and powerline insertion on 08/23 after ok w/ ID and IR. - S/p lasix challenge - Wood's catheter removed on 08/25 Plan - Remains on HD MWF; May need to continue as outpatient, monitoring for renal recovery while completing inpt abx course - Renal Sw to work on HD chair placement Assessment & Plan (09/06/2024 6:03 AM CDT): - Etiology of MARIELENA at this time is likely 2/2 ATN/shock with hypotension and pressor requirement, bacteremia, IV drug use, PIGN, untreated Hep C? In favor or infectious GN C3 and C4 are both low . - Per Nephrology plan is to trial Intermittent HD and monitor for renal recovery. - Remains on HD MWF; Nephrology following - S/p Tunneled dialysis catheter and powerline insertion on 08/23 after ok w/ ID and IR. - S/p lasix challenge - Wood's catheter removed on 08/25 Plan - Remains on HD MWF; May need to continue as outpatient, monitoring for renal recovery while completing inpt abx course - Renal Sw to work on HD chair placement Assessment & Plan (2024 7:59 AM CDT): - Etiology of MARIELENA at this time is likely 2/2 ATN/shock with hypotension and pressor requirement, bacteremia, IV drug use, PIGN, untreated Hep C? In favor or infectious GN C3 and C4 are both low . - Per Nephrology plan is to trial Intermittent HD and monitor for renal recovery. - Remains on HD MWF; Nephrology following - S/p Tunneled dialysis catheter and powerline insertion on 08/23 after ok w/ ID and IR. - S/p lasix challenge - Wood's catheter removed on 08/25 Plan - Remains on HD MWF; May need to continue as outpatient, monitoring for renal recovery while completing inpt abx course - Renal Sw to work on HD chair placement Assessment & Plan (09/04/2024 7:56 AM CDT): - Etiology of MARIELENA at this time is likely 2/2 ATN/shock with hypotension and pressor requirement, bacteremia, IV drug use, PIGN, untreated Hep C? In favor or infectious GN C3 and C4 are both low . - Per Nephrology plan is to trial Intermittent HD and monitor for renal recovery. - Remains on HD MWF; Nephrology following - S/p Tunneled dialysis catheter and powerline insertion on 08/23 after ok w/ ID and IR. - S/p lasix challenge - Wood's catheter removed on 08/25 Plan - Remains on HD MWF; May need to continue as outpatient, monitoring for renal recovery while completing inpt abx course - Renal Sw to work on HD chair placement Assessment & Plan (09/03/2024 4:35 PM CDT): - Etiology of MARIELENA at this time is likely 2/2 ATN/shock with hypotension and pressor requirement, bacteremia, IV drug use, PIGN, untreated Hep C? In favor or infectious GN C3 and C4 are both low . - Per Nephrology plan is to trial Intermittent HD and monitor for renal recovery. - Remains on HD MWF; Nephrology following - S/p Tunneled dialysis catheter and powerline insertion on 08/23 after ok w/ ID and IR. - S/p lasix challenge - Wood's catheter removed on 08/25 Plan - Remains on HD MWF; May need to continue as outpatient, monitoring for renal recovery while completing inpt abx course - Renal Sw to work on HD chair placement Assessment & Plan (09/02/2024 4:41 PM CDT): - Etiology of MARIELENA at this time is likely 2/2 ATN/shock with hypotension and pressor requirement, bacteremia, IV drug use, PIGN, untreated Hep C? In favor or infectious GN C3 and C4 are both low . - Per Nephrology plan is to trial Intermittent HD and monitor for renal recovery. - Remains on HD MWF; Nephrology following - S/p Tunneled dialysis catheter and powerline insertion on 08/23 after ok w/ ID and IR. - S/p lasix challenge - Wood's catheter removed on 08/25 Plan - Remains on HD MWF; May need to continue as outpatient, monitoring for renal recovery - Renal Sw to work on HD chair placement Assessment & Plan (09/01/2024 10:49 AM CDT): - Etiology of MARIELENA at this time is likely 2/2 ATN/shock with hypotension and pressor requirement, bacteremia, IV drug use, PIGN, untreated Hep C? In favor or infectious GN C3 and C4 are both low . - Per Nephrology plan is to trial Intermittent HD and monitor for renal recovery. - Remains on HD MWF; Nephrology following - S/p Tunneled dialysis catheter and powerline insertion on 08/23. Old trialysis non-tunneled line removed since she was bacteremic then and new tunneled line inserted after discussion with IR and ID. - had 200 ml urine output recorded on 08/22 ----> discussed with Nephro and gave 100 mg IV lasix on 08/23 ---> she had only 50 ml urine on 08/23 and 45 ml on 08/24 with lasix challenge - Wood's catheter removed on 08/25 and voiding trial/bladder scan since then showed 175-125 ml - Had 400 ml on 08/26 ---> discussed with Nephrology and glynn smith another IV Lasix challenge (80 mg) - Renal Sw to work on HD chair placement Assessment & Plan (08/31/2024 5:05 PM CDT): - Etiology of MARIELENA at this time is likely 2/2 ATN/shock with hypotension and pressor requirement, bacteremia, IV drug use, PIGN, untreated Hep C? In favor or infectious GN C3 and C4 are both low . - Per Nephrology plan is to trial Intermittent HD and monitor for renal recovery. - Remains on HD MWF; Nephrology following - S/p Tunneled dialysis catheter and powerline insertion on 08/23. Old trialysis non-tunneled line removed since she was bacteremic then and new tunneled line inserted after discussion with IR and ID. - had 200 ml urine output recorded on 08/22 ----> discussed with Nephro and gave 100 mg IV lasix on 08/23 ---> she had only 50 ml urine on 08/23 and 45 ml on 08/24 with lasix challenge - Wood's catheter removed on 08/25 and voiding trial/bladder scan since then showed 175-125 ml - Had 400 ml on 08/26 ---> discussed with Nephrology and glynn smith another IV Lasix challenge (80 mg) - Renal Sw to work on HD chair placement Assessment & Plan (08/30/2024 1:00 PM CDT): - Etiology of MARIELENA at this time is likely 2/2 ATN/shock with hypotension and pressor requirement, bacteremia, IV drug use, PIGN, untreated Hep C? In favor or infectious GN C3 and C4 are both low . - Per Nephrology plan is to trial Intermittent HD and monitor for renal recovery. - Remains on HD MWF; Nephrology following - S/p Tunneled dialysis catheter and powerline insertion on 08/23. Old trialysis non-tunneled line removed since she was bacteremic then and new tunneled line inserted after discussion with IR and ID. - had 200 ml urine output recorded on 08/22 ----> discussed with Nephro and gave 100 mg IV lasix on 08/23 ---> she had only 50 ml urine on 08/23 and 45 ml on 08/24 with lasix challenge - Wood's catheter removed on 08/25 and voiding trial/bladder scan since then showed 175-125 ml - Had 400 ml on 08/26 ---> discussed with Nephrology and glynn smith another IV Lasix challenge (80 mg) - Renal Sw to work on HD chair placement Assessment & Plan (08/29/2024 4:00 PM CDT): - Etiology of MARIELENA at this time is likely 2/2 ATN/shock with hypotension and pressor requirement, bacteremia, IV drug use, PIGN, untreated Hep C? In favor or infectious GN C3 and C4 are both low . - Per Nephrology plan is to trial Intermittent HD and monitor for renal recovery. - Remains on HD MWF; Nephrology following - S/p Tunneled dialysis catheter and powerline insertion on 08/23. Old trialysis non-tunneled line removed since she was bacteremic then and new tunneled line inserted after discussion with IR and ID. - had 200 ml urine output recorded on 08/22 ----> discussed with Nephro and gave 100 mg IV lasix on 08/23 ---> she had only 50 ml urine on 08/23 and 45 ml on 08/24 with lasix challenge - Wood's catheter removed on 08/25 and voiding trial/bladder scan since then showed 175-125 ml - Had 400 ml on 08/26 ---> discussed with Nephrology and glynn smith another IV Lasix challenge (80 mg) - Renal Sw to work on HD chair placement Assessment & Plan (08/28/2024 3:14 PM CDT): - Etiology of MARIELENA at this time is likely 2/2 ATN/shock with hypotension and pressor requirement, bacteremia, IV drug use, PIGN, untreated Hep C? In favor or infectious GN C3 and C4 are both low . - Per Nephrology plan is to trial Intermittent HD and monitor for renal recovery. - Remains on HD MWF; Nephrology following - S/p Tunneled dialysis catheter and powerline insertion on 08/23. Old trialysis non-tunneled line removed since she was bacteremic then and new tunneled line inserted after discussion with IR and ID. - had 200 ml urine output recorded on 08/22 ----> discussed with Nephro and gave 100 mg IV lasix on 08/23 ---> she had only 50 ml urine on 08/23 and 45 ml on 08/24 with lasix challenge - Wood's catheter removed on 08/25 and voiding trial/bladder scan since then showed 175-125 ml - Had 400 ml on 08/26 ---> discussed with Nephrology and glynn smith another IV Lasix challenge (80 mg) - Renal Sw to work on HD chair placement Assessment & Plan (08/27/2024 5:42 PM CDT): - Etiology of MARIELENA at this time is likely 2/2 ATN/shock with hypotension and pressor requirement, bacteremia, IV drug use, PIGN, untreated Hep C? In favor or infectious GN C3 and C4 are both low . - Per Nephrology plan is to trial Intermittent HD and monitor for renal recovery. - Remains on HD MWF; Nephrology following - S/p Tunneled dialysis catheter and powerline insertion on 08/23. Old trialysis non-tunneled line removed since she was bacteremic then and new tunneled line inserted after discussion with IR and ID. - had 200 ml urine output recorded on 08/22 ----> discussed with Nephro and gave 100 mg IV lasix on 08/23 ---> she had only 50 ml urine on 08/23 and 45 ml on 08/24 with lasix challenge - Wood's catheter removed on 08/25 and voiding trial/bladder scan since then showed 175-125 ml - Had 400 ml on 08/26 ---> discussed with Nephrology and glynn smith another IV Lasix challenge (80 mg) - Renal Sw to work on HD chair placement Assessment & Plan (08/26/2024 3:19 PM CDT): - Etiology of MARIELENA at this time is likely 2/2 ATN/shock with hypotension and pressor requirement, bacteremia, IV drug use, PIGN, untreated Hep C? In favor or infectious GN C3 and C4 are both low . - Per Nephrology plan is to trial Intermittent HD and monitor for renal recovery. Monitor BMP, creatinine trend. - Remains on HD MWF; Nephrology following - S/p Tunneled dialysis catheter and powerline insertion on 08/23. Old trialysis non-tunneled line removed since she was bacteremic then and new tunneled line inserted after discussion with IR and ID. - had 200 ml urine output recorded on 08/22 ----> discussed with Nephro and gave 100 mg IV lasix on 08/23 ---> she had only 50 ml urine on 08/23 and 45 ml on 08/24 with lasix challenge - Wood's catheter removed on 08/25 and now on voiding trial - Renal Sw to work on HD chair placement Assessment & Plan (08/25/2024 4:11 PM CDT): - Etiology of MARIELENA at this time is likely 2/2 ATN/shock with hypotension and pressor requirement, bacteremia, IV drug use, PIGN, untreated Hep C? In favor or infectious GN C3 and C4 are both low . - Per Nephrology plan is to trial Intermittent HD and monitor for renal recovery. Monitor BMP, creatinine trend. - Remains on HD MWF; Nephrology following - S/p Tunneled dialysis catheter and powerline insertion on 08/23. Old trialysis non-tunneled line removed since she was bacteremic then and new tunneled line inserted after discussion with IR and ID. - had 200 ml urine output recorded on 08/22 ----> discussed with Nephro and gave 100 mg IV lasix on 08/23 ---> she had only 50 ml urine on 08/23 and 45 ml on 08/24 with lasix challenge - Voiding trial to remove her Wood's that was inserted in ICU on 08/09 - Renal Sw to work on HD chair placement Assessment & Plan (08/24/2024 5:42 PM CDT): - Etiology of MARIELENA at this time is likely 2/2 ATN/shock with hypotension and pressor requirement, bacteremia, IV drug use, PIGN, untreated Hep C? In favor or infectious GN C3 and C4 are both low . - Per Nephrology plan is to trial Intermittent HD and monitor for renal recovery. Monitor BMP, creatinine trend. - Remains on HD MWF; Nephrology following - S/p Tunneled dialysis catheter and powerline insertion on 08/23. Old trialysis non-tunneled line removed since she was bacteremic then and new tunneled line inserted after discussion with IR and ID. - had 200 ml urine output recorded on 08/22 ----> discussed with Nephro and gave 100 mg IV lasix on 08/23 ---> she had only 50 ml urine with lasix challenge - Renal Sw to work on HD chair placement Assessment & Plan (08/23/2024 5:57 PM CDT): - Etiology of MARIELENA at this time is likely 2/2 ATN/shock with hypotension and pressor requirement, bacteremia, IV drug use, PIGN, untreated Hep C? In favor or infectious GN C3 and C4 are both low . - Per Nephrology plan is to trial intermittent HD and monitor for renal recovery. Monitor BMP, creatinine trend. - Remains on HD MWF; Nephrology following - S/p Tunneled dialysis catheter and powerline insertion on 08/23. Old trialysis non-tunneled line removed since she was bacteremic then and new tunneled line inserted after discussion with IR and ID. - had 200 ml urine output recorded on 08/22 ----> will give one dose 100 mg IV lasix today and monitor for renal recovery - Renal Sw to work on HD chair placement Assessment & Plan (08/22/2024 6:32 PM CDT): Monitor creat and I/O. Per Nephrology plan is to trial intermittent HD and monitor for renal recovery. Monitor BMP, creatinine trend. - Remains on HD; Nephrology following - RN reports no UOP after 1 dose lasix 08/19 - Nephrology asked for TDC placement, ok per ID team ---> will be done tomorrow, NPO midnight Assessment & Plan (08/21/2024 5:24 PM CDT): Monitor creat and I/O. Per Nephrology plan is to trial intermittent HD and monitor for renal recovery. Monitor BMP, creatinine trend. Remains on HD; Nephrology following RN reports no UOP after 1 dose lasix 4/20 Nephrology asked for TDC placement, ok per ID team, order placed Assessment & Plan (08/20/2024 1:53 PM CDT): Monitor creat and I/O. Per Nephrology plan is to trial intermittent HD and monitor for renal recovery. Monitor BMP, creatinine trend. Remains on HD; Nephrology following RN reports no UOP after 1 dose lasix 08/19 TDC placement for outpatient HD when blood cultures negative at 48h or per VIR criteria Assessment & Plan (08/19/2024 1:53 PM CDT): Monitor creat and I/O. Per Nephrology plan is to trial intermittent HD and monitor for renal recovery. Monitor BMP, creatinine trend. Remains on HD; Nephrology following TDC placement for outpatient HD when blood cultures negative at 48h or per VIR criteria Assessment & Plan (08/18/2024 2:49 PM CDT): Monitor creat and I/O. Per Nephrology plan is to trial intermittent HD and monitor for renal recovery. Monitor BMP, creatinine trend. Remains on HD; Nephrology following TDC placement for outpatient HD when blood cultures negative at 48h or per VIR criteria Assessment & Plan (08/17/2024 4:26 PM CDT): Monitor creat and I/O. Per Nephrology plan is to trial intermittent HD and monitor for renal recovery. Monitor BMP, creatinine trend. Remains on HD; TDC placement for outpatient HD when blood cultures negative at 48h or per VIR criteria Assessment & Plan (08/16/2024 4:55 PM CDT): Monitor creat and I/O. Per Nephrology plan is to trial intermittent HD and monitor for renal recovery. Monitor BMP, creatinine trend. RN reports <100 ml UOP in 24 hours; Remains on HD; TDC placement for outpatient HD when blood cultures negative at 48h or per VIR criteria Assessment & Plan (08/15/2024 2:17 PM CDT): Monitor creat and I/O. Per Nephrology plan is to trial intermittent HD and monitor for renal recovery. Monitor BMP, creatinine trend. RN reports <100 ml UOP in 24 hours; Remains on HD Hyperkalemia noted Assessment & Plan (08/14/2024 1:42 PM CDT): Monitor creat and I/O. Per Nephrology plan is to trial intermittent HD and monitor for renal recovery. Monitor BMP, creatinine trend. Assessment & Plan (08/13/2024 2:41 PM CDT): Monitor creat and I/O. Per Nephrology plan is to trial intermittent HD and monitor for renal recovery. Assessment & Plan (08/12/2024 6:17 AM CDT): Present with oliguric renal failure with proteinuria, hematuria, pyuria, and hypocomplementemia. 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 She has since been started on CRRT with SLED for clearance and ultrafiltration. - Treatment of staphylococcal infection as above. - Appreciate Nephrology recommendations. - Urine culture on 08/01 grew Escherichia coli. Ms. Miller was having back pain and tea-colored urine, which I suspect is more related to her endocarditis and likely glomerulonephritis (not a urinary tract infection). Cefatroline will cover the E. coli incidentally. Staphyloccocus aureus (MRSA) endocarditis 2024 Assessment & Plan (10/01/2024 12:21 PM CDT): - s/p Daptomycin (08/11-08/21) and now only on Ceftaroline (08/05- 09/25) given persistent bacteremia cleared now. - Blood cultures drawn in HD 08/15, 08/17, and 08/23: all showed no growth. Stopped daily blood cultures - No plan for surgery per CT surg c/s, finish antibiotics and can see Dr. Alcala in clinic (referral placed) - ID team Signed off on 08/23 and recommended 6 weeks IV abx (Ceftaroline 200 mg Q8) from date of first culture clearance (08/15-09/25/2024). Assessment & Plan (09/30/2024 2:33 PM CDT): - s/p Daptomycin (08/11-08/21) and now only on Ceftaroline (08/05- 09/25) given persistent bacteremia cleared now. - Blood cultures drawn in HD 08/15, 08/17, and 08/23: all showed no growth. Stopped daily blood cultures - No plan for surgery per CT surg c/s, finish antibiotics and can see Dr. Alcala in clinic (referral placed) - ID team Signed off on 08/23 and recommended 6 weeks IV abx (Ceftaroline 200 mg Q8) from date of first culture clearance (08/15-09/25/2024). Assessment & Plan (09/29/2024 1:49 PM CDT): - s/p Daptomycin (08/11-08/21) and now only on Ceftaroline (08/05- 09/25) given persistent bacteremia cleared now. - Blood cultures drawn in HD 08/15, 08/17, and 08/23: all showed no growth. Stopped daily blood cultures - No plan for surgery per CT surg c/s, finish antibiotics and can see Dr. Alcala in clinic (referral placed) - ID team Signed off on 08/23 and recommended 6 weeks IV abx (Ceftaroline 200 mg Q8) from date of first culture clearance (08/15-09/25/2024). Assessment & Plan (09/28/2024 3:38 PM CDT): - s/p Daptomycin (08/11-08/21) and now only on Ceftaroline (08/05- 09/25) given persistent bacteremia cleared now. - Blood cultures drawn in HD 08/15, 08/17, and 08/23: all showed no growth. Stopped daily blood cultures - No plan for surgery per CT surg c/s, finish antibiotics and can see Dr. Alcala in clinic (referral placed) - ID team Signed off on 08/23 and recommended 6 weeks IV abx (Ceftaroline 200 mg Q8) from date of first culture clearance (08/15-09/25/2024). Assessment & Plan (09/27/2024 3:34 PM CDT): - s/p Daptomycin (08/11-08/21) and now only on Ceftaroline (08/05- 09/25) given persistent bacteremia cleared now. - Blood cultures drawn in HD 08/15, 08/17, and 08/23: all showed no growth. Stopped daily blood cultures - No plan for surgery per CT surg c/s, finish antibiotics and can see Dr. Alcala in clinic (referral placed) - ID team Signed off on 08/23 and recommended 6 weeks IV abx (Ceftaroline 200 mg Q8) from date of first culture clearance (08/15-09/25/2024). Assessment & Plan (09/26/2024 3:45 PM CDT): - s/p Daptomycin (08/11-08/21) and now only on Ceftaroline (08/05- 09/25) given persistent bacteremia cleared now. - Blood cultures drawn in HD 08/15, 08/17, and 08/23: all showed no growth. Stopped daily blood cultures - No plan for surgery per CT surg c/s, finish antibiotics and can see Dr. Alcala in clinic (referral placed) - ID team Signed off on 08/23 and recommended 6 weeks IV abx (Ceftaroline 200 mg Q8) from date of first culture clearance (08/15-09/25/2024). Patient is not an OPAT candidate. CBC once a week. If she were to indicate a plan to leave the hospital prematurely/AMA, please call ID immediately so that ID can order her for a dose of long-acting dalbavancin. Would prescribe her 6 weeks of linezolid 600 mg PO twice daily as well, and remove line. Assessment & Plan (09/25/2024 1:31 PM CDT): - s/p Daptomycin (08/11-08/21) and now only on Ceftaroline (08/05- ) given persistent bacteremia cleared now. - Blood cultures drawn in HD 08/15, 08/17, and 08/23: all showed no growth. Stopped daily blood cultures - No plan for surgery per CT surg c/s, finish antibiotics and can see Dr. Alcala in clinic (referral placed) - ID team Signed off on 08/23 and recommended 6 weeks IV abx (Ceftaroline 200 mg Q8) from date of first culture clearance (08/15-09/25/2024). Patient is not an OPAT candidate. CBC once a week. If she were to indicate a plan to leave the hospital prematurely/AMA, please call ID immediately so that ID can order her for a dose of long-acting dalbavancin. Would prescribe her 6 weeks of linezolid 600 mg PO twice daily as well, and remove line. Assessment & Plan (09/24/2024 4:41 PM CDT): - s/p Daptomycin (08/11-08/21) and now only on Ceftaroline (08/05- ) given persistent bacteremia cleared now. - Blood cultures drawn in HD 08/15, 08/17, and 08/23: all showed no growth. Stopped daily blood cultures - No plan for surgery per CT surg c/s per 08/06/24 note, 08/20 Echo showed large bulky vegetation on the anterior TV leaflet measuring 1.4 x 2.0 cm; was 0.6 x 0.9 cm on 08/05/24 Echo. Re-engaged cardiac surgery on 08/22/24 since vegetations are larger (1.4 x 2.0 cm on 08/20/24 repeat Echo) and they recommended medical management since patient is clinically improved, blood cultures cleared, no significant valve dysfunction or RH failure, and comorbidities (MARIELENA, IVDU). Repeat echo 09/18 showing enlarging (1.5 X 2.3 cm) tricuspid mobile vegetation. Cardiac surgery re-engaged 09/20. Recommended no surgery, can follow as an outpatient, finish antibiotics and can see Dr. Alcala in clinic (referral placed) - ID team Signed off on 08/23 and recommended 6 weeks IV abx (Ceftaroline 200 mg Q8) from date of first culture clearance (08/15-09/25/2024). Patient is not an OPAT candidate. CBC once a week. If she were to indicate a plan to leave the hospital prematurely/AMA, please call ID immediately so that ID can order her for a dose of long-acting dalbavancin. Would prescribe her 6 weeks of linezolid 600 mg PO twice daily as well, and remove line. 09/10- new malaise with increasing leukocytosis, frequent hypoglycemia, and less antihypertensive requirement is c/f brewing inflammatory/infectious process. Blood Cx 09/10: NGTD; RVP negative, CXR with atelectasis IS for atelectasis: Up to chair Assessment & Plan (09/23/2024 11:48 AM CDT): - s/p Daptomycin (08/11-08/21) and now only on Ceftaroline (08/05- ) given persistent bacteremia cleared now. - Blood cultures drawn in HD 08/15, 08/17, and 08/23: all showed no growth. Stopped daily blood cultures - No plan for surgery per CT surg c/s per 08/06/24 note, 08/20 Echo showed large bulky vegetation on the anterior TV leaflet measuring 1.4 x 2.0 cm; was 0.6 x 0.9 cm on 08/05/24 Echo. Re-engaged cardiac surgery on 08/22/24 since vegetations are larger (1.4 x 2.0 cm on 08/20/24 repeat Echo) and they recommended medical management since patient is clinically improved, blood cultures cleared, no significant valve dysfunction or RH failure, and comorbidities (MARIELENA, IVDU). Repeat echo 09/18 showing enlarging (1.5 X 2.3 cm) tricuspid mobile vegetation. Cardiac surgery re-engaged 09/20. Recommended no surgery, can follow as an outpatient, finish antibiotics and can see Dr. Alcala in clinic. - ID team Signed off on 08/23 and recommended 6 weeks IV abx (Ceftaroline 200 mg Q8) from date of first culture clearance (08/15-09/25/2024). Patient is not an OPAT candidate. CBC once a week. If she were to indicate a plan to leave the hospital prematurely/AMA, please call ID immediately so that ID can order her for a dose of long-acting dalbavancin. Would prescribe her 6 weeks of linezolid 600 mg PO twice daily as well, and remove line. 09/10- new malaise with increasing leukocytosis, frequent hypoglycemia, and less antihypertensive requirement is c/f brewing inflammatory/infectious process. Blood Cx 09/10: NGTD; RVP negative, CXR with atelectasis IS for atelectasis: Up to chair Assessment & Plan (09/22/2024 2:21 PM CDT): - s/p Daptomycin (08/11-08/21) and now only on Ceftaroline (08/05- ) given persistent bacteremia cleared now. - Blood cultures drawn in HD 08/15, 08/17, and 08/23: all showed no growth. Stopped daily blood cultures - No plan for surgery per CT surg c/s per 08/06/24 note, 08/20 Echo showed large bulky vegetation on the anterior TV leaflet measuring 1.4 x 2.0 cm; was 0.6 x 0.9 cm on 08/05/24 Echo. Re-engaged cardiac surgery on 08/22/24 since vegetations are larger (1.4 x 2.0 cm on 08/20/24 repeat Echo) and they recommended medical management since patient is clinically improved, blood cultures cleared, no significant valve dysfunction or RH failure, and comorbidities (MARIELENA, IVDU). Repeat echo 09/18 showing enlarging (1.5 X 2.3 cm) tricuspid mobile vegetation. Cardiac surgery re-engaged 09/20. Recommended no surgery, can follow as an outpatient, finish antibiotics and can see Dr. Alcala in clinic. - ID team Signed off on 08/23 and recommended 6 weeks IV abx (Ceftaroline 200 mg Q8) from date of first culture clearance (08/15-09/25/2024). Patient is not an OPAT candidate. CBC once a week. If she were to indicate a plan to leave the hospital prematurely/AMA, please call ID immediately so that ID can order her for a dose of long-acting dalbavancin. Would prescribe her 6 weeks of linezolid 600 mg PO twice daily as well, and remove line. 09/10- new malaise with increasing leukocytosis, frequent hypoglycemia, and less antihypertensive requirement is c/f brewing inflammatory/infectious process. Blood Cx 09/10: NGTD; RVP negative, CXR with atelectasis IS for atelectasis: Up to chair Assessment & Plan (09/21/2024 4:45 PM CDT): - s/p Daptomycin (08/11-08/21) and now only on Ceftaroline (08/05- ) given persistent bacteremia cleared now. - Blood cultures drawn in HD 08/15, 08/17, and 08/23: all showed no growth. Stopped daily blood cultures - No plan for surgery per CT surg c/s per 08/06/24 note, 08/20 Echo showed large bulky vegetation on the anterior TV leaflet measuring 1.4 x 2.0 cm; was 0.6 x 0.9 cm on 08/05/24 Echo. Re-engaged cardiac surgery on 08/22/24 since vegetations are larger (1.4 x 2.0 cm on 08/20/24 repeat Echo) and they recommended medical management since patient is clinically improved, blood cultures cleared, no significant valve dysfunction or RH failure, and comorbidities (MARIELENA, IVDU). Repeat echo 09/18 showing enlarging (1.5 X 2.3 cm) tricuspid mobile vegetation. Cardiac surgery re-engaged 09/20. Recommended no surgery, can follow as an outpatient, finish antibiotics and can see Dr. Alcala in clinic. - ID team Signed off on 08/23 and recommended 6 weeks IV abx (Ceftaroline 200 mg Q8) from date of first culture clearance (08/15-09/25/2024). Patient is not an OPAT candidate. CBC once a week. If she were to indicate a plan to leave the hospital prematurely/AMA, please call ID immediately so that ID can order her for a dose of long-acting dalbavancin. Would prescribe her 6 weeks of linezolid 600 mg PO twice daily as well, and remove line. 09/10- new malaise with increasing leukocytosis, frequent hypoglycemia, and less antihypertensive requirement is c/f brewing inflammatory/infectious process. Blood Cx 09/10: NGTD; RVP negative, CXR with atelectasis IS for atelectasis: Up to chair Assessment & Plan (09/20/2024 1:12 PM CDT): - s/p Daptomycin (08/11-08/21) and now only on Ceftaroline (08/05- ) given persistent bacteremia cleared now. - Blood cultures drawn in HD 08/15, 08/17, and 08/23: all showed no growth. Stopped daily blood cultures - No plan for surgery per CT surg c/s per 08/06/24 note, 08/20 Echo showed large bulky vegetation on the anterior TV leaflet measuring 1.4 x 2.0 cm; was 0.6 x 0.9 cm on 08/05/24 Echo. Re-engaged cardiac surgery on 08/22/24 since vegetations are larger (1.4 x 2.0 cm on 08/20/24 repeat Echo) and they recommended medical management since patient is clinically improved, blood cultures cleared, no significant valve dysfunction or RH failure, and comorbidities (MARIELENA, IVDU). Repeat echo 09/18 showing enlarging (1.5 X 2.3 cm) tricuspid mobile vegetation. Cardiac surgery re- engaged. Recommendations awaited - ID team Signed off on 08/23 and recommended 6 weeks IV abx (Ceftaroline 200 mg Q8) from date of first culture clearance (08/15-09/25/2024). Patient is not an OPAT candidate. CBC once a week. If she were to indicate a plan to leave the hospital prematurely/AMA, please call ID immediately so that ID can order her for a dose of long-acting dalbavancin. Would prescribe her 6 weeks of linezolid 600 mg PO twice daily as well, and remove line. 09/10- new malaise with increasing leukocytosis, frequent hypoglycemia, and less antihypertensive requirement is c/f brewing inflammatory/infectious process. Blood Cx 09/10: NGTD; RVP negative, CXR with atelectasis IS for atelectasis: Up to chair Assessment & Plan (09/19/2024 4:58 PM CDT): - s/p Daptomycin (08/11-08/21) and now only on Ceftaroline (08/05- ) given persistent bacteremia cleared now. - Blood cultures drawn in HD 08/15, 08/17, and 08/23: all showed no growth. Stopped daily blood cultures - No plan for surgery per CT surg c/s per 08/06/24 note, 08/20 Echo showed large bulky vegetation on the anterior TV leaflet measuring 1.4 x 2.0 cm; was 0.6 x 0.9 cm on 08/05/24 Echo. Re-engaged cardiac surgery on 08/22/24 since vegetations are larger (1.4 x 2.0 cm on 08/20/24 repeat Echo) and they recommended medical management since patient is clinically improved, blood cultures cleared, no significant valve dysfunction or RH failure, and comorbidities (MARIELENA, IVDU). - ID team Signed off on 08/23 and recommended 6 weeks IV abx (Ceftaroline 200 mg Q8) from date of first culture clearance (08/15-09/25/2024). Patient is not an OPAT candidate. CBC once a week. If she were to indicate a plan to leave the hospital prematurely/AMA, please call ID immediately so that ID can order her for a dose of long-acting dalbavancin. Would prescribe her 6 weeks of linezolid 600 mg PO twice daily as well, and remove line. 09/10- new malaise with increasing leukocytosis, frequent hypoglycemia, and less antihypertensive requirement is c/f brewing inflammatory/infectious process. Blood Cx 09/10: NGTD; RVP negative, CXR with atelectasis IS for atelectasis: Up to chair Assessment & Plan (09/18/2024 3:35 PM CDT): - s/p Daptomycin (08/11-08/21) and now only on Ceftaroline (08/05- ) given persistent bacteremia cleared now. - Blood cultures drawn in HD 08/15, 08/17, and 08/23: all showed no growth. Stopped daily blood cultures - No plan for surgery per CT surg c/s per 08/06/24 note, 08/20 Echo showed large bulky vegetation on the anterior TV leaflet measuring 1.4 x 2.0 cm; was 0.6 x 0.9 cm on 08/05/24 Echo. Re-engaged cardiac surgery on 08/22/24 since vegetations are larger (1.4 x 2.0 cm on 08/20/24 repeat Echo) and they recommended medical management since patient is clinically improved, blood cultures cleared, no significant valve dysfunction or RH failure, and comorbidities (MARIELENA, IVDU). - ID team Signed off on 08/23 and recommended 6 weeks IV abx (Ceftaroline 200 mg Q8) from date of first culture clearance (08/15-09/25/2024). Patient is not an OPAT candidate. CBC once a week. If she were to indicate a plan to leave the hospital prematurely/AMA, please call ID immediately so that ID can order her for a dose of long-acting dalbavancin. Would prescribe her 6 weeks of linezolid 600 mg PO twice daily as well, and remove line. 09/10- new malaise with increasing leukocytosis, frequent hypoglycemia, and less antihypertensive requirement is c/f brewing inflammatory/infectious process. Blood Cx 09/10: NGTD; RVP negative, CXR with atelectasis IS for atelectasis: Up to chair Assessment & Plan (09/17/2024 3:18 PM CDT): - s/p Daptomycin (08/11-08/21) and now only on Ceftaroline (08/05- ) given persistent bacteremia cleared now. - Blood cultures drawn in HD 08/15, 08/17, and 08/23: all showed no growth. Stopped daily blood cultures - No plan for surgery per CT surg c/s per 08/06/24 note, 08/20 Echo showed large bulky vegetation on the anterior TV leaflet measuring 1.4 x 2.0 cm..... Was 0.6 x 0.9 cm on 08/05/24 Echo --> Re-engaged cardiac surgery on 08/22/24 since vegetations are larger (1.4 x 2.0 cm on 08/20/24 repeat Echo) and they recommended medical management since patient is clinically improved, blood cultures cleared, no significant valve dysfunction or RH failure, and comorbidities (MARIELENA, IVDU). - ID team Signed off on 08/23 and recommended 6 weeks IV abx (Ceftaroline 200 mg Q8) from date of first culture clearance (08/15-09/25/2024). Patient is not an OPAT candidate. CBC once a week. If she were to indicate a plan to leave the hospital prematurely/AMA, please call ID immediately so that we can order her for a dose of long-acting dalbavancin. Would prescribe her 6 weeks of linezolid 600 mg PO twice daily as well, and remove line. 09/10- new malaise with increasing leukocytosis, frequent hypoglycemia, and less antihypertensive requirement is c/f brewing inflammatory/infectious process. Blood Cx 09/10: NGTD RVP negative, CXR with atelectasis IS for atelectasis: Up to chair; Assessment & Plan (09/16/2024 12:18 PM CDT): - s/p Daptomycin (08/11-08/21) and now only on Ceftaroline (08/05- ) given persistent bacteremia cleared now. - Blood cultures drawn in HD 08/15, 08/17, and 08/23: all showed no growth. Stopped daily blood cultures - No plan for surgery per CT surg c/s per 08/06/24 note, 08/20 Echo showed large bulky vegetation on the anterior TV leaflet measuring 1.4 x 2.0 cm..... Was 0.6 x 0.9 cm on 08/05/24 Echo --> Re-engaged cardiac surgery on 08/22/24 since vegetations are larger (1.4 x 2.0 cm on 08/20/24 repeat Echo) and they recommended medical management since patient is clinically improved, blood cultures cleared, no significant valve dysfunction or RH failure, and comorbidities (MARIELENA, IVDU). - ID team Signed off on 08/23 and recommended 6 weeks IV abx (Ceftaroline 200 mg Q8) from date of first culture clearance (08/15-09/25/2024). Patient is not an OPAT candidate. CBC once a week. If she were to indicate a plan to leave the hospital prematurely/AMA, please call ID immediately so that we can order her for a dose of long-acting dalbavancin. Would prescribe her 6 weeks of linezolid 600 mg PO twice daily as well, and remove line. 09/10- new malaise with increasing leukocytosis, frequent hypoglycemia, and less antihypertensive requirement is c/f brewing inflammatory/infectious process. Blood Cx 09/10: NGTD RVP negative, CXR with atelectasis IS for atelectasis: Up to chair; Assessment & Plan (09/15/2024 1:15 PM CDT): - s/p Daptomycin (08/11-08/21) and now only on Ceftaroline (08/05- ) given persistent bacteremia cleared now. - Blood cultures drawn in HD 08/15, 08/17, and 08/23: all showed no growth. Stopped daily blood cultures - No plan for surgery per CT surg c/s per 08/06/24 note, 08/20 Echo showed large bulky vegetation on the anterior TV leaflet measuring 1.4 x 2.0 cm..... Was 0.6 x 0.9 cm on 08/05/24 Echo --> Re-engaged cardiac surgery on 08/22/24 since vegetations are larger (1.4 x 2.0 cm on 08/20/24 repeat Echo) and they recommended medical management since patient is clinically improved, blood cultures cleared, no significant valve dysfunction or RH failure, and comorbidities (MARIELENA, IVDU). - ID team Signed off on 08/23 and recommended 6 weeks IV abx (Ceftaroline 200 mg Q8) from date of first culture clearance (08/15-09/25/2024). Patient is not an OPAT candidate. CBC once a week. If she were to indicate a plan to leave the hospital prematurely/AMA, please call ID immediately so that we can order her for a dose of long-acting dalbavancin. Would prescribe her 6 weeks of linezolid 600 mg PO twice daily as well, and remove line. 09/10- new malaise with increasing leukocytosis, frequent hypoglycemia, and less antihypertensive requirement is c/f brewing inflammatory/infectious process. Blood Cx 09/10: NGTD RVP negative, CXR with atelectasis IS for atelectasis: Up to chair; Assessment & Plan (09/14/2024 5:05 PM CDT): - s/p Daptomycin (08/11-08/21) and now only on Ceftaroline (08/05- ) given persistent bacteremia cleared now. - Blood cultures drawn in HD 08/15, 08/17, and 08/23: all showed no growth. Stopped daily blood cultures - No plan for surgery per CT surg c/s per 08/06/24 note, 08/20 Echo showed large bulky vegetation on the anterior TV leaflet measuring 1.4 x 2.0 cm..... Was 0.6 x 0.9 cm on 08/05/24 Echo --> Re-engaged cardiac surgery on 08/22/24 since vegetations are larger (1.4 x 2.0 cm on 08/20/24 repeat Echo) and they recommended medical management since patient is clinically improved, blood cultures cleared, no significant valve dysfunction or RH failure, and comorbidities (MARIELENA, IVDU). - ID team Signed off on 08/23 and recommended 6 weeks IV abx (Ceftaroline 200 mg Q8) from date of first culture clearance (08/15-09/25/2024). Patient is not an OPAT candidate. CBC once a week. If she were to indicate a plan to leave the hospital prematurely/AMA, please call ID immediately so that we can order her for a dose of long-acting dalbavancin. Would prescribe her 6 weeks of linezolid 600 mg PO twice daily as well, and remove line. 09/10- new malaise with increasing leukocytosis, frequent hypoglycemia, and less antihypertensive requirement is c/f brewing inflammatory/infectious process. Blood Cx 09/10: NGTD RVP negative, CXR with atelectasis IS for atelectasis: Up to chair; Assessment & Plan (09/13/2024 1:28 PM CDT): - s/p Daptomycin (08/11-08/21) and now only on Ceftaroline (08/05- ) given persistent bacteremia cleared now. - Blood cultures drawn in HD 08/15, 08/17, and 08/23: all showed no growth. Stopped daily blood cultures - No plan for surgery per CT surg c/s per 08/06/24 note, 08/20 Echo showed large bulky vegetation on the anterior TV leaflet measuring 1.4 x 2.0 cm..... Was 0.6 x 0.9 cm on 08/05/24 Echo --> Re-engaged cardiac surgery on 08/22/24 since vegetations are larger (1.4 x 2.0 cm on 08/20/24 repeat Echo) and they recommended medical management since patient is clinically improved, blood cultures cleared, no significant valve dysfunction or RH failure, and comorbidities (MARIELENA, IVDU). - ID team Signed off on 08/23 and recommended 6 weeks IV abx (Ceftaroline 200 mg Q8) from date of first culture clearance (08/15-09/25/2024). Patient is not an OPAT candidate. CBC once a week. If she were to indicate a plan to leave the hospital prematurely/AMA, please call ID immediately so that we can order her for a dose of long-acting dalbavancin. Would prescribe her 6 weeks of linezolid 600 mg PO twice daily as well, and remove line. 09/10- new malaise with increasing leukocytosis, frequent hypoglycemia, and less antihypertensive requirement is c/f brewing inflammatory/infectious process. Blood Cx 09/10: NGTD RVP negative, CXR with atelectasis IS for atelectasis: Up to chair; Assessment & Plan (09/12/2024 1:13 PM CDT): - s/p Daptomycin (08/11-08/21) and now only on Ceftaroline (08/05- ) given persistent bacteremia cleared now. - Blood cultures drawn in HD 08/15, 08/17, and 08/23: all showed no growth. Stopped daily blood cultures - No plan for surgery per CT surg c/s per 08/06/24 note, 08/20 Echo showed large bulky vegetation on the anterior TV leaflet measuring 1.4 x 2.0 cm..... Was 0.6 x 0.9 cm on 08/05/24 Echo --> Re-engaged cardiac surgery on 08/22/24 since vegetations are larger (1.4 x 2.0 cm on 08/20/24 repeat Echo) and they recommended medical management since patient is clinically improved, blood cultures cleared, no significant valve dysfunction or RH failure, and comorbidities (MARIELENA, IVDU). - ID team Signed off on 08/23 and recommended 6 weeks IV abx (Ceftaroline 200 mg Q8) from date of first culture clearance (08/15-09/25/2024). Patient is not an OPAT candidate. CBC once a week. If she were to indicate a plan to leave the hospital prematurely/AMA, please call ID immediately so that we can order her for a dose of long-acting dalbavancin. Would prescribe her 6 weeks of linezolid 600 mg PO twice daily as well, and remove line. 09/10- new malaise with increasing leukocytosis, frequent hypoglycemia, and less antihypertensive requirement is c/f brewing inflammatory/infectious process. Blood Cx 09/10: NGTD RVP negative, CXR with atelectasis IS for atelectasis: Up to chair; Assessment & Plan (09/11/2024 5:22 PM CDT): - s/p Daptomycin (08/11-08/21) and now only on Ceftaroline (08/05- ) given persistent bacteremia cleared now. - Blood cultures drawn in HD 08/15, 08/17, and 08/23: all showed no growth. Stopped daily blood cultures - No plan for surgery per CT surg c/s per 08/06/24 note, 08/20 Echo showed large bulky vegetation on the anterior TV leaflet measuring 1.4 x 2.0 cm..... Was 0.6 x 0.9 cm on 08/05/24 Echo --> Re-engaged cardiac surgery on 08/22/24 since vegetations are larger (1.4 x 2.0 cm on 08/20/24 repeat Echo) and they recommended medical management since patient is clinically improved, blood cultures cleared, no significant valve dysfunction or RH failure, and comorbidities (MARIELENA, IVDU). - ID team Signed off on 08/23 and recommended 6 weeks IV abx (Ceftaroline 200 mg Q8) from date of first culture clearance (08/15-09/25/2024). Patient is not an OPAT candidate. CBC once a week. If she were to indicate a plan to leave the hospital prematurely/AMA, please call ID immediately so that we can order her for a dose of long-acting dalbavancin. Would prescribe her 6 weeks of linezolid 600 mg PO twice daily as well, and remove line. 09/10- new malaise with increasing leukocytosis, frequent hypoglycemia, and less antihypertensive requirement is c/f brewing inflammatory/infectious process. Will obtain new BCx, RVP negative, CXR with atelectasis IS for atelectasis: Up to chair; ambulate with routine therapy services. Assessment & Plan (09/10/2024 5:10 PM CDT): - s/p Daptomycin (08/11-08/21) and now only on Ceftaroline (08/05- ) given persistent bacteremia cleared now. - Blood cultures drawn in HD 08/15, 08/17, and 08/23: all showed no growth. Stopped daily blood cultures - No plan for surgery per CT surg c/s per 08/06/24 note, 08/20 Echo showed large bulky vegetation on the anterior TV leaflet measuring 1.4 x 2.0 cm..... Was 0.6 x 0.9 cm on 08/05/24 Echo --> Re-engaged cardiac surgery on 08/22/24 since vegetations are larger (1.4 x 2.0 cm on 08/20/24 repeat Echo) and they recommended medical management since patient is clinically improved, blood cultures cleared, no significant valve dysfunction or RH failure, and comorbidities (MARIELENA, IVDU). - ID team Signed off on 08/23 and recommended 6 weeks IV abx (Ceftaroline 200 mg Q8) from date of first culture clearance (08/15-09/25/2024). Patient is not an OPAT candidate. CBC once a week. If she were to indicate a plan to leave the hospital prematurely/AMA, please call ID immediately so that we can order her for a dose of long-acting dalbavancin. Would prescribe her 6 weeks of linezolid 600 mg PO twice daily as well, and remove line. 09/10- new malaise with increasing leukocytosis, frequent hypoglycemia, and less antihypertensive requirement is c/f brewing inflammatory/infectious process. Will obtain new BCx, RPP, CXR. Assessment & Plan (09/09/2024 7:28 AM CDT): - s/p Daptomycin (08/11-08/21) and now only on Ceftaroline (08/05- ) given persistent bacteremia cleared now. - Blood cultures drawn in HD 08/15, 08/17, and 08/23: all showed no growth. Stopped daily blood cultures - No plan for surgery per CT surg c/s per 08/06/24 note, 08/20 Echo showed large bulky vegetation on the anterior TV leaflet measuring 1.4 x 2.0 cm..... Was 0.6 x 0.9 cm on 08/05/24 Echo --> Re-engaged cardiac surgery on 08/22/24 since vegetations are larger (1.4 x 2.0 cm on 08/20/24 repeat Echo) and they recommended medical management since patient is clinically improved, blood cultures cleared, no significant valve dysfunction or RH failure, and comorbidities (MARIELENA, IVDU). - ID team Signed off on 08/23 and recommended 6 weeks IV abx (Ceftaroline 200 mg Q8) from date of first culture clearance (08/15-09/25/2024). Patient is not an OPAT candidate. CBC once a week. If she were to indicate a plan to leave the hospital prematurely/AMA, please call ID immediately so that we can order her for a dose of long-acting dalbavancin. Would prescribe her 6 weeks of linezolid 600 mg PO twice daily as well, and remove line. Assessment & Plan (09/08/2024 1:38 PM CDT): - s/p Daptomycin (08/11-08/21) and now only on Ceftaroline (08/05- ) given persistent bacteremia cleared now. - Blood cultures drawn in HD 08/15, 08/17, and 08/23: all showed no growth. Stopped daily blood cultures - No plan for surgery per CT surg c/s per 08/06/24 note, 08/20 Echo showed large bulky vegetation on the anterior TV leaflet measuring 1.4 x 2.0 cm..... Was 0.6 x 0.9 cm on 08/05/24 Echo --> Re-engaged cardiac surgery on 08/22/24 since vegetations are larger (1.4 x 2.0 cm on 08/20/24 repeat Echo) and they recommended medical management since patient is clinically improved, blood cultures cleared, no significant valve dysfunction or RH failure, and comorbidities (MARIELENA, IVDU). - ID team Signed off on 08/23 and recommended 6 weeks IV abx (Ceftaroline 200 mg Q8) from date of first culture clearance (08/15-09/25/2024). Patient is not an OPAT candidate. CBC once a week. If she were to indicate a plan to leave the hospital prematurely/AMA, please call ID immediately so that we can order her for a dose of long-acting dalbavancin. Would prescribe her 6 weeks of linezolid 600 mg PO twice daily as well, and remove line. Assessment & Plan (09/07/2024 7:42 PM CDT): - s/p Daptomycin (08/11-08/21) and now only on Ceftaroline (08/05- ) given persistent bacteremia cleared now. - Blood cultures drawn in HD 08/15, 08/17, and 08/23: all showed no growth. Stopped daily blood cultures - No plan for surgery per CT surg c/s per 08/06/24 note, 08/20 Echo showed large bulky vegetation on the anterior TV leaflet measuring 1.4 x 2.0 cm..... Was 0.6 x 0.9 cm on 08/05/24 Echo --> Re-engaged cardiac surgery on 08/22/24 since vegetations are larger (1.4 x 2.0 cm on 08/20/24 repeat Echo) and they recommended medical management since patient is clinically improved, blood cultures cleared, no significant valve dysfunction or RH failure, and comorbidities (MARIELENA, IVDU). - ID team Signed off on 08/23 and recommended 6 weeks IV abx (Ceftaroline 200 mg Q8) from date of first culture clearance (08/15-09/25/2024). Patient is not an OPAT candidate. CBC once a week. If she were to indicate a plan to leave the hospital prematurely/AMA, please call ID immediately so that we can order her for a dose of long-acting dalbavancin. Would prescribe her 6 weeks of linezolid 600 mg PO twice daily as well, and remove line. Assessment & Plan (09/06/2024 6:03 AM CDT): - s/p Daptomycin (08/11-08/21) and now only on Ceftaroline (08/05- ) given persistent bacteremia cleared now. - Blood cultures drawn in HD 08/15, 08/17, and 08/23: all showed no growth. Stopped daily blood cultures - No plan for surgery per CT surg c/s per 08/06/24 note, 08/20 Echo showed large bulky vegetation on the anterior TV leaflet measuring 1.4 x 2.0 cm..... Was 0.6 x 0.9 cm on 08/05/24 Echo --> Re-engaged cardiac surgery on 08/22/24 since vegetations are larger (1.4 x 2.0 cm on 08/20/24 repeat Echo) and they recommended medical management since patient is clinically improved, blood cultures cleared, no significant valve dysfunction or RH failure, and comorbidities (MARIELENA, IVDU). - ID team Signed off on 08/23 and recommended 6 weeks IV abx (Ceftaroline 200 mg Q8) from date of first culture clearance (08/15-09/25/2024). Patient is not an OPAT candidate. CBC once a week. If she were to indicate a plan to leave the hospital prematurely/AMA, please call ID immediately so that we can order her for a dose of long-acting dalbavancin. Would prescribe her 6 weeks of linezolid 600 mg PO twice daily as well, and remove line. Assessment & Plan (2024 7:59 AM CDT): - s/p Daptomycin (08/11-08/21) and now only on Ceftaroline (08/05- ) given persistent bacteremia cleared now. - Blood cultures drawn in HD 08/15, 08/17, and 08/23: all showed no growth. Stopped daily blood cultures - No plan for surgery per CT surg c/s per 08/06/24 note, 08/20 Echo showed large bulky vegetation on the anterior TV leaflet measuring 1.4 x 2.0 cm..... Was 0.6 x 0.9 cm on 08/05/24 Echo --> Re-engaged cardiac surgery on 08/22/24 since vegetations are larger (1.4 x 2.0 cm on 08/20/24 repeat Echo) and they recommended medical management since patient is clinically improved, blood cultures cleared, no significant valve dysfunction or RH failure, and comorbidities (MARIELENA, IVDU). - ID team Signed off on 08/23 and recommended 6 weeks IV abx (Ceftaroline 200 mg Q8) from date of first culture clearance (08/15-09/25/2024). Patient is not an OPAT candidate. CBC once a week. If she were to indicate a plan to leave the hospital prematurely/AMA, please call ID immediately so that we can order her for a dose of long-acting dalbavancin. Would prescribe her 6 weeks of linezolid 600 mg PO twice daily as well, and remove line. Assessment & Plan (09/04/2024 7:56 AM CDT): - s/p Daptomycin (08/11-08/21) and now only on Ceftaroline (08/05- ) given persistent bacteremia cleared now. - Blood cultures drawn in HD 08/15, 08/17, and 08/23: all showed no growth. Stopped daily blood cultures - No plan for surgery per CT surg c/s per 08/06/24 note, 08/20 Echo showed large bulky vegetation on the anterior TV leaflet measuring 1.4 x 2.0 cm..... Was 0.6 x 0.9 cm on 08/05/24 Echo --> Re-engaged cardiac surgery on 08/22/24 since vegetations are larger (1.4 x 2.0 cm on 08/20/24 repeat Echo) and they recommended medical management since patient is clinically improved, blood cultures cleared, no significant valve dysfunction or RH failure, and comorbidities (MARIELENA, IVDU). - ID team Signed off on 08/23 and recommended 6 weeks IV abx (Ceftaroline 200 mg Q8) from date of first culture clearance (08/15-09/25/2024). Patient is not an OPAT candidate. CBC once a week. If she were to indicate a plan to leave the hospital prematurely/AMA, please call ID immediately so that we can order her for a dose of long-acting dalbavancin. Would prescribe her 6 weeks of linezolid 600 mg PO twice daily as well, and remove line. Assessment & Plan (09/03/2024 4:35 PM CDT): - s/p Daptomycin (08/11-08/21) and now only on Ceftaroline (08/05- ) given persistent bacteremia cleared now. - Blood cultures drawn in HD 08/15, 08/17, and 08/23: all showed no growth. Stopped daily blood cultures - No plan for surgery per CT surg c/s per 08/06/24 note, 08/20 Echo showed large bulky vegetation on the anterior TV leaflet measuring 1.4 x 2.0 cm..... Was 0.6 x 0.9 cm on 08/05/24 Echo --> Re-engaged cardiac surgery on 08/22/24 since vegetations are larger (1.4 x 2.0 cm on 08/20/24 repeat Echo) and they recommended medical management since patient is clinically improved, blood cultures cleared, no significant valve dysfunction or RH failure, and comorbidities (MARIELENA, IVDU). - ID team Signed off on 08/23 and recommended 6 weeks IV abx (Ceftaroline 200 mg Q8) from date of first culture clearance (08/15-09/25/2024). Patient is not an OPAT candidate. CBC once a week. If she were to indicate a plan to leave the hospital prematurely/AMA, please call ID immediately so that we can order her for a dose of long-acting dalbavancin. Would prescribe her 6 weeks of linezolid 600 mg PO twice daily as well, and remove line. Assessment & Plan (09/02/2024 4:47 PM CDT): - s/p Daptomycin (08/11-08/21) and now only on Ceftaroline (08/05- ) given persistent bacteremia cleared now. - Blood cultures drawn in HD 08/15, 08/17, and 08/23: all showed no growth. Stopped daily blood cultures - No plan for surgery per CT surg c/s per 08/06/24 note, 08/20 Echo showed large bulky vegetation on the anterior TV leaflet measuring 1.4 x 2.0 cm..... Was 0.6 x 0.9 cm on 08/05/24 Echo --> Re-engaged cardiac surgery on 08/22/24 since vegetations are larger (1.4 x 2.0 cm on 08/20/24 repeat Echo) and they recommended medical management since patient is clinically improved, blood cultures cleared, no significant valve dysfunction or RH failure, and comorbidities (MARIELENA, IVDU). - ID team Signed off on 08/23 and recommended 6 weeks IV abx (Ceftaroline 200 mg Q8) from date of first culture clearance (08/15-09/25/2024). Patient is not an OPAT candidate. CBC once a week. If she were to indicate a plan to leave the hospital prematurely/AMA, please call ID immediately so that we can order her for a dose of long-acting dalbavancin. Would prescribe her 6 weeks of linezolid 600 mg PO twice daily as well, and remove line. Assessment & Plan (09/01/2024 10:49 AM CDT): - s/p Daptomycin (08/11-08/21) and now only on Ceftaroline (08/05- ) given persistent bacteremia cleared now. - Blood cultures drawn in HD 08/15, 08/17, and 08/23: all showed no growth. Stopped daily blood cultures - No plan for surgery per CT surg c/s per 08/06/24 note, 08/20 Echo showed large bulky vegetation on the anterior TV leaflet measuring 1.4 x 2.0 cm..... Was 0.6 x 0.9 cm on 08/05/24 Echo --> Re-engaged cardiac surgery on 08/22/24 since vegetations are larger (1.4 x 2.0 cm on 08/20/24 repeat Echo) and they recommended medical management since patient is clinically improved, blood cultures cleared, no significant valve dysfunction or RH failure, and comorbidities (MARIELENA, IVDU). - ID team Signed off on 08/23 and recommended 6 weeks IV abx (Ceftaroline 200 mg Q8) from date of first culture clearance (08/15-09/25/2024). Patient is not an OPAT candidate. CBC once a week. If she were to indicate a plan to leave the hospital prematurely/AMA, please call ID immediately so that we can order her for a dose of long-acting dalbavancin. Would prescribe her 6 weeks of linezolid 600 mg PO twice daily as well, and remove line. Assessment & Plan (08/31/2024 5:05 PM CDT): - s/p Daptomycin (08/11-08/21) and now only on Ceftaroline (08/05- ) given persistent bacteremia cleared now. - Blood cultures drawn in HD 08/15, 08/17, and 08/23: all showed no growth. Stopped daily blood cultures - No plan for surgery per CT surg c/s per 08/06/24 note, 08/20 Echo showed large bulky vegetation on the anterior TV leaflet measuring 1.4 x 2.0 cm..... Was 0.6 x 0.9 cm on 08/05/24 Echo --> Re-engaged cardiac surgery on 08/22/24 since vegetations are larger (1.4 x 2.0 cm on 08/20/24 repeat Echo) and they recommended medical management since patient is clinically improved, blood cultures cleared, no significant valve dysfunction or RH failure, and comorbidities (MARIELENA, IVDU). - ID team Signed off on 08/23 and recommended 6 weeks IV abx (Ceftaroline 200 mg Q8) from date of first culture clearance (08/15-09/25/2024). Patient is not an OPAT candidate. CBC once a week. If she were to indicate a plan to leave the hospital prematurely/AMA, please call ID immediately so that we can order her for a dose of long-acting dalbavancin. Would prescribe her 6 weeks of linezolid 600 mg PO twice daily as well, and remove line. Assessment & Plan (08/30/2024 1:00 PM CDT): - s/p Daptomycin (08/11-08/21) and now only on Ceftaroline (08/05- ) given persistent bacteremia cleared now. - Blood cultures drawn in HD 08/15, 08/17, and 08/23: all showed no growth. Stopped daily blood cultures - No plan for surgery per CT surg c/s per 08/06/24 note, 08/20 Echo showed large bulky vegetation on the anterior TV leaflet measuring 1.4 x 2.0 cm..... Was 0.6 x 0.9 cm on 08/05/24 Echo --> Re-engaged cardiac surgery on 08/22/24 since vegetations are larger (1.4 x 2.0 cm on 08/20/24 repeat Echo) and they recommended medical management since patient is clinically improved, blood cultures cleared, no significant valve dysfunction or RH failure, and comorbidities (MARIELENA, IVDU). - ID team Signed off on 08/23 and recommended 6 weeks IV abx (Ceftaroline 200 mg Q8) from date of first culture clearance (08/15-09/25/2024). Patient is not an OPAT candidate. CBC once a week. If she were to indicate a plan to leave the hospital prematurely/AMA, please call ID immediately so that we can order her for a dose of long-acting dalbavancin. Would prescribe her 6 weeks of linezolid 600 mg PO twice daily as well, and remove line. Assessment & Plan (08/29/2024 4:00 PM CDT): - s/p Daptomycin (08/11-08/21) and now only on Ceftaroline (08/05- ) given persistent bacteremia cleared now. - Blood cultures drawn in HD 08/15, 08/17, and 08/23: all showed no growth. Stopped daily blood cultures - No plan for surgery per CT surg c/s per 08/06/24 note, 08/20 Echo showed large bulky vegetation on the anterior TV leaflet measuring 1.4 x 2.0 cm..... Was 0.6 x 0.9 cm on 08/05/24 Echo --> Re-engaged cardiac surgery on 08/22/24 since vegetations are larger (1.4 x 2.0 cm on 08/20/24 repeat Echo) and they recommended medical management since patient is clinically improved, blood cultures cleared, no significant valve dysfunction or RH failure, and comorbidities (MARIELENA, IVDU). - ID team Signed off on 08/23 and recommended 6 weeks IV abx (Ceftaroline 200 mg Q8) from date of first culture clearance (08/15-09/25/2024). Patient is not an OPAT candidate. CBC once a week. If she were to indicate a plan to leave the hospital prematurely/AMA, please call ID immediately so that we can order her for a dose of long-acting dalbavancin. Would prescribe her 6 weeks of linezolid 600 mg PO twice daily as well, and remove line. Assessment & Plan (08/28/2024 3:14 PM CDT): - s/p Daptomycin (08/11-08/21) and now only on Ceftaroline (08/05- ) given persistent bacteremia cleared now. - Blood cultures drawn in HD 08/15, 08/17, and 08/23: all showed no growth. Stopped daily blood cultures - No plan for surgery per CT surg c/s per 08/06/24 note, 08/20 Echo showed large bulky vegetation on the anterior TV leaflet measuring 1.4 x 2.0 cm..... Was 0.6 x 0.9 cm on 08/05/24 Echo --> Re-engaged cardiac surgery on 08/22/24 since vegetations are larger (1.4 x 2.0 cm on 08/20/24 repeat Echo) and they recommended medical management since patient is clinically improved, blood cultures cleared, no significant valve dysfunction or RH failure, and comorbidities (MARIELENA, IVDU). - ID team Signed off on 08/23 and recommended 6 weeks IV abx (Ceftaroline 200 mg Q8) from date of first culture clearance (08/15-09/25/2024). Patient is not an OPAT candidate. CBC once a week. If she were to indicate a plan to leave the hospital prematurely/AMA, please call ID immediately so that we can order her for a dose of long-acting dalbavancin. Would prescribe her 6 weeks of linezolid 600 mg PO twice daily as well, and remove line. Assessment & Plan (08/27/2024 5:42 PM CDT): - s/p Daptomycin (08/11-08/21) and now only on Ceftaroline (08/05- ) given persistent bacteremia cleared now. - Blood cultures drawn in HD 08/15, 08/17, and 08/23: all showed no growth. Stopped daily blood cultures - No plan for surgery per CT surg c/s per 08/06/24 note, 08/20 Echo showed large bulky vegetation on the anterior TV leaflet measuring 1.4 x 2.0 cm..... Was 0.6 x 0.9 cm on 08/05/24 Echo --> Re-engaged cardiac surgery on 08/22/24 since vegetations are larger (1.4 x 2.0 cm on 08/20/24 repeat Echo) and they recommended medical management since patient is clinically improved, blood cultures cleared, no significant valve dysfunction or RH failure, and comorbidities (MARIELENA, IVDU). - ID team Signed off on 08/23 and recommended 6 weeks IV abx (Ceftaroline 200 mg Q8) from date of first culture clearance (08/15-09/25/2024). Patient is not an OPAT candidate. CBC once a week. If she were to indicate a plan to leave the hospital prematurely/AMA, please call ID immediately so that we can order her for a dose of long-acting dalbavancin. Would prescribe her 6 weeks of linezolid 600 mg PO twice daily as well, and remove line. Assessment & Plan (08/26/2024 2:31 PM CDT): - s/p Daptomycin (08/11-08/21) and now only on Ceftaroline (08/05- ) given persistent bacteremia cleared now. - Blood cultures drawn in HD 08/15 and 08/17: both showed no growth. 08/23 blood culture NTD Stopped daily blood cultures - No plan for surgery per CT surg c/s per 08/06/24 note, 08/20 Echo showed large bulky vegetation on the anterior TV leaflet measuring 1.4 x 2.0 cm..... Was 0.6 x 0.9 cm on 08/05/24 Echo --> Re-engaged cardiac surgery on 08/22/24 since vegetations are larger (1.4 x 2.0 cm on 08/20/24 repeat Echo) and they recommended medical management since patient is clinically improved, blood cultures cleared, no significant valve dysfunction or RH failure, and comorbidities (MARIELENA, IVDU). - ID team Signed off on 08/23 and recommended 6 weeks IV abx (Ceftaroline 200 mg Q8) from date of first culture clearance (08/15-09/25/2024). Patient is not an OPAT candidate. CBC once a week. If she were to indicate a plan to leave the hospital prematurely/AMA, please call us immediately so that we can order her for a dose of long-acting dalbavancin. Would prescribe her 6 weeks of linezolid 600 mg PO twice daily as well, and remove line. Assessment & Plan (08/25/2024 4:11 PM CDT): - s/p Daptomycin (08/11-08/21) and now only on Ceftaroline (08/05- ) given persistent bacteremia cleared now. - Blood cultures drawn in HD 08/15 and 08/17: both showed no growth. 08/23 blood culture NTD Stopped daily blood cultures - No plan for surgery per CT surg c/s per 08/06/24 note, 08/20 Echo showed large bulky vegetation on the anterior TV leaflet measuring 1.4 x 2.0 cm..... Was 0.6 x 0.9 cm on 08/05/24 Echo --> Re-engaged cardiac surgery on 08/22/24 since vegetations are larger (1.4 x 2.0 cm on 08/20/24 repeat Echo) and they recommended medical management since patient is clinically improved, blood cultures cleared, no significant valve dysfunction or RH failure, and comorbidities (MARIELENA, IVDU). - ID team Signed off on 08/23 and recommended 6 weeks IV abx (Ceftaroline 200 mg Q8) from date of first culture clearance (08/15-09/25/2024). Patient is not an OPAT candidate. CBC once a week. If she were to indicate a plan to leave the hospital prematurely/AMA, please call us immediately so that we can order her for a dose of long-acting dalbavancin. Would prescribe her 6 weeks of linezolid 600 mg PO twice daily as well, and remove line. Assessment & Plan (08/24/2024 5:42 PM CDT): - ID following, s/p Daptomycin (08/11-08/21) and now only on Ceftaroline (08/05- ) given persistent bacteremia. - Blood cultures drawn in HD 08/15 and 08/17: both showed no growth. Stopped daily blood cultures - No plan for surgery per CT surg c/s per 08/06/24 note, 08/20 Echo showed large bulky vegetation on the anterior TV leaflet measuring 1.4 x 2.0 cm..... Was 0.6 x 0.9 cm on 08/05 Echo --> Re-engaged cardiac surgery on 08/22 since vegetations are larger and they recommended medical management since patient is clinically improved, blood cultures cleared, no significant valve dysfunction or RH failure, and comorbidities (MARIELENA, IVDU). - Seen by ID team on 08/23 and recommended 6 weeks IV abx (ceftaroline 200 mg Q8) from date of first culture clearance (08/15-09/25/2024). Patient is not an OPAT candidate. CBC once a week. If she were to indicate a plan to leave the hospital prematurely/AMA, please call us immediately so that we can order her for a dose of long-acting dalbavancin. Would prescribe her 6 weeks of linezolid 600 mg PO twice daily as well, and remove line. Assessment & Plan (08/23/2024 5:52 PM CDT): - ID following, s/p Daptomycin (08/11-08/21) and now on Ceftaroline (08/05- ) given persistent bacteremia. - Declined blood cultures on 08/14 am. - Blood cultures drawn in HD 08/15 and 08/17: both showed no growth - No plan for surgery per CT surg c/s per 08/06/24 note, 08/20 Echo showed large bulky vegetation on the anterior TV leaflet measuring 1.4 x 2.0 cm..... Was 0.6 x 0.9 cm on 08/05 Echo --> Re-engaged cardiac surgery on 08/22 since vegetations are larger and they recommended medical management since patient is clinically improved, blood cultures cleared, no significant valve dysfunction or RH failure, and comorbidities (MARIELENA, IVDU). - Seen by ID team on 08/23 and recommended 6 weeks IV abx (ceftaroline 200 mg Q8) from date of first culture clearance (08/15-09/25/2024). Patient is not an OPAT candidate. CBC once a week. If she were to indicate a plan to leave the hospital prematurely, please call us immediately so that we can order her for a dose of long-acting dalbavancin. Would prescribe her 6 weeks of linezolid 600 mg PO twice daily as well, and remove line. Assessment & Plan (08/22/2024 6:32 PM CDT): - ID following, s/p Daptomycin (08/11-08/21) and now on Ceftaroline (08/05- ) given persistent bacteremia. - Declined blood cultures on 15 am. - Blood cultures drawn in HD 08/15 and 08/17: both showed no growth - No plan for surgery per CT surg c/s per 08/06/24 note, 08/20 Echo showed large bulky vegetation on the anterior TV leaflet measuring 1.4 x 2.0 cm..... Was 0.6 x 0.9 cm on 08/05 Echo --> discussed with cardiac surgery since vegetations are larger will wait on recs Assessment & Plan (08/21/2024 5:24 PM CDT): - ID following, on Daptomycin and Ceftaroline given persistent bacteremia. - Declined blood cultures on 4/15 am. - Blood cultures drawn in HD 08/15 and 08/17: both showed no growth - No plan for surgery per CT surg c/s per 08/06/24 note, 08/20 Echo showed large bulky vegetation on the anterior TV leaflet measuring 1.4 x 2.0 cm..... Was 0.6 x 0.9 cm on 08/05 Echo. Assessment & Plan (08/20/2024 1:53 PM CDT): ID following, on daptomycin and ceftaroline given persistent bacteremia. Declined blood cultures 4/15 am. Blood cultures drawn in HD 08/15 and 08/17: both NGTD Will continue to attempt blood cultures daily (TDC if cultures neg at 48 hours) No plan for surgery per CT surg c/s, may need to discuss with them again given ongoing bacteremia. Echo to check TR and vegetation done, pending result Assessment & Plan (08/19/2024 1:53 PM CDT): ID following, on daptomycin and ceftaroline given persistent bacteremia. Declined blood cultures 4/15 am. Blood cultures drawn in HD 08/15 and 08/17: both NGTD Will continue to attempt blood cultures daily (TDC if cultures neg at 48 hours) No plan for surgery per CT surg c/s, may need to discuss with them again given ongoing bacteremia. Echo to check TR and vegetation; Assessment & Plan (08/18/2024 2:49 PM CDT): ID following, on daptomycin and ceftaroline given persistent bacteremia. Declined blood cultures 4/15 am. Blood cultures drawn in HD 08/15 Will continue to attempt blood cultures daily (TDC if cultures neg at 48 hours) No plan for surgery per CT surg c/s, may need to discuss with them again given ongoing bacteremia. Echo to check TR and vegetation; Assessment & Plan (08/17/2024 4:26 PM CDT): ID following, on daptomycin and ceftaroline given persistent bacteremia. Declined blood cultures 4/15 am. Blood cultures drawn in HD 16 Will continue to attempt blood cultures daily (TDC if cultures neg at 48 hours) No plan for surgery per CT surg c/s, may need to discuss with them again given ongoing bacteremia. Assessment & Plan (08/16/2024 4:55 PM CDT): ID following, on daptomycin and ceftaroline given persistent bacteremia. Declined blood cultures 4/15 am. Blood cultures drawn in HD 16 Will continue to attempt blood cultures daily (TDC if cultures neg at 48 hours) No plan for surgery per CT surg c/s, may need to discuss with them again given ongoing bacteremia. Assessment & Plan (08/15/2024 2:17 PM CDT): ID following, on daptomycin and ceftaroline given persistent bacteremia. Declined blood cultures 4/15 am. Blood cultures to be drawn in HD 16 Will continue to attempt blood cultures daily; may need to draw with HD. Pt counseled to allow blood draws. Discussed with ID. No plan for surgery per CT surg c/s, may need to discuss with them again given ongoing bacteremia. Assessment & Plan (08/14/2024 1:42 PM CDT): ID following, on daptomycin and ceftaroline given persistent bacteremia. Declined blood cultures 4/15 am. Will continue to attempt blood cultures daily; may need to draw with HD. Pt counseled to allow blood draws. Discussed with ID. No plan for surgery per CT surg c/s, may need to discuss with them again given ongoing bacteremia. Assessment & Plan (08/13/2024 2:41 PM CDT): ID following, on daptomycin and ceftaroline given persistent bacteremia. Declined blood cultures this am. No plan for surgery per CT surg c/s, may need to discuss with them again given ongoing bacteremia. Assessment & Plan (08/14/2024 6:37 AM CDT): In the context of injection opioid use, she became acutely ill with multiple symptoms including lower back pain, shortness of breath, fever, and tea-colored urine. She presented to [facility] on 07/31 where she was discovered to have high-grade bacteremia with Staphylococcus aureus (MRSA). Cavitary pulmonary nodules on CT suggested septic emboli, and transthoracic echocardiogram subsequently demonstrated a tricuspid valve vegetation (1.2 x 0.8 cm). She entered opioid withdrawal and left the hospital prematurely on 08/03 before re-presenting to [facility] on 08/05 in more florid shock. Her blood cultures remain positive with a fast time to positivity (10 hours). She has evidence of multiple metastatic foci with septic pulmonary emboli, a right dorsal hand abscess (status-post I&D on 08/07), and potentially other musculoskeletal pains under evaluation. Recommendations: - Continue ceftaroline 400 mg IV every 8 hours (08/05 - ). - Given that bacteremia persists despite 6 days of ceftaroline and attempts at source control, start daptomycin 700 mg (10 mg/kg ABW) IV every 48 hours (08/11 - ). Check a CBC, CMP, and CPK at least weekly and monitor for myalgias while on daptomycin. - Antibiotic dosing/frequency will need to be adjusted if she is switched to a different modality of [employer] or if her modoc clearance improves. - Repeat two sets of blood cultures every 24-48 hours until consecutive sets at least 24 hours from each other are negative. Need new cultures as last are from 08/09 and still positive. - Appreciate Orthopedic (Hand) Surgery recommendations. Status-post beside I&D of the right dorsal hand abscess on 08/07. Cultures are growing MRSA. - Appreciate Cardiac Surgery recommendations. 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 - Serial assessments for signs and symptoms of metastatic foci: neurologic changes, back pain, bone and joint pains/swelling, embolic phenomena, etc. CT chest/abdomen/pelvis on 08/07 shows evidence of known septic pulmonary emboli but no other metastatic foci (including on spinal reconstructions) within the limitations of non-contrast technique. She previously had MRI of the thoracolumbar spine at [facility] on 08/01 that was generally reassuring against spinal infection, though she has had a lot of bacteremia since then. - Persistent bacteremia is suspicious for an uncontrolled source. If not clearing, would suggest repeating a TTE and imaging (particularly of the spine) in the coming days. She is hesitant to do another MRI as she could not breath during the last one, but her respiratory status is much better now so hopefully she could tolerate. She has two central lines (one for dialysis). Removing (or exchanging) the right internal jugular venous catheter may help facilitate clearance of bacteremia, as it has been in for longer (since 08/06) and exposed to a lot of bacteremia. She is no longer needing it for vasopressors. - If she were to indicate a plan to leave the hospital prematurely, please call us immediately so that we can order her for a dose of long-acting dalbavancin. Would prescribe her 6 weeks of linezolid 600 mg PO twice daily as well. care following vaginal delivery 01/18 Overview (01/20/2021): # ID: Afebrile. No signs/symptoms of infection. HepC: Genotype 3. ID appt scheduled 02/13. #COVID-19: Negative # Heme: EBL 250 mL. No symptoms acute blood loss anemia. # CV/Pulm: Gestational hypertension - Diagnosed intrapartum. Has been having consistently mild range BPs in period - will start on nifedipine XL 30 mg this AM. Asymptomatic, denies FOLEY/RUQ pain/vision changes. CBC/CMP WNL, UPC not collected given recent vaginal delivery. Will consent for home BP monitoring. # GI/: Tolerating PO. Voiding spontaneously. # Pain: Controlled with above regimen. #OUD: currently on methadone 160 mg, continued in period. Atarax and clonidine PRN. # Post DVT prophylaxis: The patient has the following MAJOR risk factors none and the following MINOR risk factors none. SCDs ordered for VTE prophylaxis. # MOC: IUD at 6 week visit - plans DMPA prior to d/c as a bridge method. # MOF: Both formula and # COVID Vaccination Status: Not previously received - I don't believe in it. # Disposition: Follow up task sent to [facility] Desires discharge home today. Opioid use disorder 06/23/2020 Overview (01/12/2021): S/p Counseling 06/2020. UDS History 06/23: THC, methadone 07/14: Benzo, THC, methadone 08/11: Benzo, THC, methadone 09/22: THC, methadone, false positive PCP 10/06: THC, methadone 11/17: MJ, methadone, false positive PCP CURRENT REGIMEN: Methadone 160 mg, Atarax and Clonidine PRN [x] Narcan Rx given: Yes Date: IOB 06/2020. [] Qtrimester CMP: ordered today [x] Social work referral: done [] Third trimester Psychiatry visit: [x] Third trimester anesthesia consult: Done 11/21 [x] Third trimester Medicine consult: Done 12/01 [] Third trimester Hepatitis C antibody: ordered today [] 32-34 week growth scan: missed [] EKG in setting of methadone >100: ordered today, directed patient to [facility] Assessment & Plan (10/01/2024 12:21 PM CDT): Psych following for dosing of methadone Also on oxy 2.5 mg q6h prn for acute pain Given the patient is [place] resident, without much access to methadone clinic. Currently being transitioned to subutex from methadone- 09/28 did have withdrawal symptoms with COWS of 8. Continuing with butrans patch and subutex increased to 8 mg BID - dc the patch 09/29 - is doing well with subutex 8 mg BID and not needing prns Assessment & Plan (09/30/2024 2:33 PM CDT): Psych following for dosing of methadone Also on oxy 2.5 mg q6h prn for acute pain Given the patient is [place] resident, without much access to methadone clinic. Currently being transitioned to subutex from methadone- 09/28 did have withdrawal symptoms with COWS of 8. Continuing with butrans patch and subutex increased to 8 mg BID - dc the patch 09/29 Will continue to monitor for sedation and continue subutex 8 mg BID Assessment & Plan (09/29/2024 1:49 PM CDT): Psych following for dosing of methadone Also on oxy 2.5 mg q6h prn for acute pain Given the patient is [place] resident, without much access to methadone clinic. Currently being transitioned to subutex from methadone- 09/28 did have withdrawal symptoms with COWS of 8. Continuing with butrans patch and subutex increased to 8 mg BID - dc the patch 09/29 Will continue to monitor for sedation Assessment & Plan (09/28/2024 3:38 PM CDT): Psych following for dosing of methadone Also on oxy 2.5 mg q6h prn for acute pain Given the patient is [place] resident, without much access to methadone clinic. Currently being transitioned to subutex from methadone- 09/28 did have withdrawal symptoms with COWS of 8. Continuing with butrans patch and subutex increased to 8 mg BID Will continue to monitor for sedation Assessment & Plan (09/27/2024 12:58 PM CDT): Psych following for dosing of methadone Also on oxy 2.5 mg q6h prn for acute pain Given the patient is [place] resident, without much access to methadone clinic. Plan to transition patient from methadone to Suboxone. Assessment & Plan (09/26/2024 3:45 PM CDT): Psych following for dosing of methadone Also on oxy 2.5 mg q6h prn for acute pain Given the patient is [place] resident, without much access to methadone clinic. Plan to transition patient from methadone to Suboxone. Assessment & Plan (09/25/2024 1:31 PM CDT): Psych following for dosing of methadone Also on oxy 2.5 mg q6h prn for acute pain Currently on methadone 40 daily per psych for OUD. [facility] referral ([phone]) for outpatient follow-up for methadone -prn meds for withdrawal symptoms VSS; continue to monitor Assessment & Plan (09/24/2024 4:19 PM CDT): Methadone Recommended by Psychiatry; titrated up to 70 mg Daily and is on scheduled clonidine. - Pt also using prn oxycodone; found to be somnolent 08/14 a.m. Methadone may be accumulating in this HD patient. Methadone dose titrated down to 60 mg 08/15, pt without pain except for hand dressing changes. - More alert; however on 08/23 and 08/24 she has been more sleepy; weaned multiple sedatives including IV Dilaudid (dose to 0.2), she was also hypoglycemic from not eating; continues to be sleepy, easy to wake up to voice but goes back to sleep when she is back by herself despite adjusting sedatives few days ago. Decreased Methadone down to 50 mg daily and can go up again if she start craving Decreased methadone to 40 mg/day 09/12; had been using oxycodone for pain; hold oxycodone if drowsy. Psychiatry was re-consulted 09/19 for methadone dosing and anxiety. Recommended methadone 40 daily with p.r.n. 2.5 mg 4 times daily methadone for pain, discontinued p.r.n. oxycodone per psych recommendations. 09/20 psych recommended to treat OUD with methadone and pain with non-methadone regimen. Oxycodone 5 q6 prn resumed for pain 09/20. Currently on methadone 40 daily per psych for OUD. [facility] referral ([phone]) for outpatient follow-up for methadone placed/talked 09/21 given long weekend. No response. [facility] referral was placed/talked again 09/24. Pain currently controlled with oxycodone p.r.n. 5>2.5 mg q.6; titrate as needed -prn meds for withdrawal symptoms VSS; continue to monitor Assessment & Plan (09/23/2024 11:48 AM CDT): Methadone Recommended by Psychiatry; titrated up to 70 mg Daily and is on scheduled clonidine. - Pt also using prn oxycodone; found to be somnolent 15 a.m. Methadone may be accumulating in this HD patient. Methadone dose titrated down to 60 mg 08/15, pt without pain except for hand dressing changes. - More alert; however on 08/23 and 08/24 she has been more sleepy; weaned multiple sedatives including IV Dilaudid (dose to 0.2), she was also hypoglycemic from not eating; continues to be sleepy, easy to wake up to voice but goes back to sleep when she is back by herself despite adjusting sedatives few days ago. Decreased Methadone down to 50 mg daily and can go up again if she start craving Decreased methadone to 40 mg/day 09/12; had been using oxycodone for pain; hold oxycodone if drowsy. Psychiatry was re-consulted 09/19 for methadone dosing and anxiety. Recommended methadone 40 daily with p.r.n. 2.5 mg 4 times daily methadone for pain, discontinued p.r.n. oxycodone per psych recommendations. 09/20 psych recommended to treat OUD with methadone and pain with non-methadone regimen. Oxycodone 5 q6 prn resumed for pain 09/20. Currently on methadone 40 daily per psych for OUD. [facility] referral ([phone]) for outpatient follow-up for methadone placed 09/21 given long weekend. Pain currently controlled with oxycodone p.r.n. 5>2.5 mg q.6; titrate as needed -prn meds for withdrawal symptoms VSS; continue to monitor Assessment & Plan (09/22/2024 2:21 PM CDT): Methadone Recommended by Psychiatry; titrated up to 70 mg Daily and is on scheduled clonidine. - Pt also using prn oxycodone; found to be somnolent 08/14 a.m. Methadone may be accumulating in this HD patient. Methadone dose titrated down to 60 mg 08/15, pt without pain except for hand dressing changes. - More alert; however on 08/23 and 08/24 she has been more sleepy; weaned multiple sedatives including IV Dilaudid (dose to 0.2), she was also hypoglycemic from not eating; continues to be sleepy, easy to wake up to voice but goes back to sleep when she is back by herself despite adjusting sedatives few days ago. Decreased Methadone down to 50 mg daily and can go up again if she start craving Decreased methadone to 40 mg/day 09/12; had been using oxycodone for pain; hold oxycodone if drowsy. Psychiatry was re-consulted 09/19 for methadone dosing and anxiety. Recommended methadone 40 daily with p.r.n. 2.5 mg 4 times daily methadone for pain, discontinued p.r.n. oxycodone per psych recommendations. 09/20 psych recommended to treat OUD with methadone and pain with non-methadone regimen. Oxycodone 5 q6 prn resumed for pain 09/20. Currently on methadone 40 daily per psych for OUD. [facility] referral ([phone]) for outpatient follow-up for methadone placed 09/21 given long weekend. Pain currently controlled with oxycodone p.r.n. 5 mg q.6; titrate as needed -prn meds for withdrawal symptoms VSS; continue to monitor Assessment & Plan (09/21/2024 4:45 PM CDT): Methadone Recommended by Psychiatry; titrated up to 70 mg Daily and is on scheduled clonidine. - Pt also using prn oxycodone; found to be somnolent 08/14 a.m. Methadone may be accumulating in this HD patient. Methadone dose titrated down to 60 mg 08/15, pt without pain except for hand dressing changes. - More alert; however on 08/23 and 08/24 she has been more sleepy; weaned multiple sedatives including IV Dilaudid (dose to 0.2), she was also hypoglycemic from not eating; continues to be sleepy, easy to wake up to voice but goes back to sleep when she is back by herself despite adjusting sedatives few days ago. Decreased Methadone down to 50 mg daily and can go up again if she start craving Decreased methadone to 40 mg/day 09/12; had been using oxycodone for pain; hold oxycodone if drowsy. Psychiatry was re-consulted 09/19 for methadone dosing and anxiety. Recommended methadone 40 daily with p.r.n. 2.5 mg 4 times daily methadone for pain, discontinued p.r.n. oxycodone per psych recommendations. 09/20 psych recommended to treat OUD with methadone and pain with non-methadone regimen. Oxycodone 5 q6 prn resumed for pain 09/20. Currently on methadone 40 daily per psych for OUD. [facility] referral ([phone]) for outpatient follow-up for methadone placed 09/21 given long weekend. Pain currently controlled with oxycodone p.r.n. 5 mg q.6; titrate as needed -prn meds for withdrawal symptoms VSS Assessment & Plan (09/20/2024 1:12 PM CDT): Methadone Recommended by Psychiatry; titrated up to 70 mg Daily and is on scheduled clonidine. - Pt also using prn oxycodone; found to be somnolent 15 a.m. Methadone may be accumulating in this HD patient. Methadone dose titrated down to 60 mg 08/15, pt without pain except for hand dressing changes. - More alert; however on 08/23 and 08/24 she has been more sleepy; weaned multiple sedatives including IV Dilaudid (dose to 0.2), she was also hypoglycemic from not eating; continues to be sleepy, easy to wake up to voice but goes back to sleep when she is back by herself despite adjusting sedatives few days ago. Decreased Methadone down to 50 mg daily and can go up again if she start craving Decreased methadone to 40 mg/day 09/12; had been using oxycodone for pain; hold oxycodone if drowsy. Psychiatry was re-consulted 09/19 for methadone dosing and anxiety. Recommended methadone 40 daily with p.r.n. 2.5 mg 4 times daily methadone for pain, discontinued p.r.n. oxycodone per psych recommendations. 09/20 psych recommended to treat OUD with methadone and pain with non-methadone regimen. Oxycodone 5 q6 prn resumed for pain 09/20. [facility] referral ([phone]) for outpatient follow-up for methadone at least 1- 2 days prior to discharge -prn meds for withdrawal symptoms VSS Assessment & Plan (09/19/2024 5:05 PM CDT): Methadone Recommended by Psychiatry; titrated up to 70 mg Daily and is on scheduled clonidine. - Pt also using prn oxycodone; found to be somnolent /15 a.m. Methadone may be accumulating in this HD patient. Methadone dose titrated down to 60 mg 08/15, pt without pain except for hand dressing changes. - More alert; however on 08/23 and 08/24 she has been more sleepy; weaned multiple sedatives including IV Dilaudid (dose to 0.2), she was also hypoglycemic from not eating; continues to be sleepy, easy to wake up to voice but goes back to sleep when she is back by herself despite adjusting sedatives few days ago. Decreased Methadone down to 50 mg daily and can go up again if she start craving Decreased methadone to 40 mg/day 09/12; using oxycodone for pain; hold oxycodone if drowsy. Psychiatry was re-consulted 09/19 for methadone dosing and anxiety. Recommended methadone 40 daily with p.r.n. 2.5 mg 4 times daily methadone for pain, discontinued p.r.n. oxycodone per psych recommendations. [facility] referral ([phone]) for outpatient follow-up for methadone at least 1- 2 days prior to discharge -clonidine tapered off VSS Assessment & Plan (09/18/2024 3:35 PM CDT): Methadone Recommended by Psychiatry; titrated up to 70 mg Daily and is on scheduled clonidine. - Pt also using prn oxycodone; found to be somnolent 4/15 a.m. Methadone may be accumulating in this HD patient. Methadone dose titrated down to 60 mg 08/15, pt without pain except for hand dressing changes. - More alert; however on 08/23 and 08/24 she has been more sleepy; weaned multiple sedatives including IV Dilaudid (dose to 0.2), she was also hypoglycemic from not eating; continues to be sleepy, easy to wake up to voice but goes back to sleep when she is back by herself despite adjusting sedatives few days ago. Decreased Methadone down to 50 mg daily and can go up again if she start craving Decreased methadone to 40 mg/day 09/12; 30 mg/day 09/19-; taper off over time; using oxycodone for pain; hold oxycodone if drowsy. -clonidine tapered off VSS Assessment & Plan (09/17/2024 3:18 PM CDT): Methadone Recommended by Psychiatry----> titrated up to 70 mg Daily and is on scheduled clonidine. - Pt also using prn oxycodone; found to be somnolent 4/15 a.m ---> Methadone may be accumulating in this HD patient. ---> Methadone dose titrated down to 60 mg 08/15, pt without pain except for hand dressing changes. - More alert ---> however on 08/23 and 08/24 she has been more sleepy ---> weaned multiple sedatives including IV Dilaudid (dose to 0.2), she was also hypoglycemic from not eating --> continues to be sleepy, easy to wake up to voice but goes back to sleep when she is back by herself despite adjusting sedatives few days ago ----> Decreased Methadone down to 50 mg daily and can go up again if she start craving 09/12: Decreased methadone to 40 mg/day; 09/15: more awake, using oxycodone for pain -continue methadone, taper off over time. Hold oxycodone if drowsy; -clonidine tapered off VSS Assessment & Plan (09/16/2024 12:18 PM CDT): Methadone Recommended by Psychiatry----> titrated up to 70 mg Daily and is on scheduled clonidine. - Pt also using prn oxycodone; found to be somnolent 08/14 a.m ---> Methadone may be accumulating in this HD patient. ---> Methadone dose titrated down to 60 mg 08/15, pt without pain except for hand dressing changes. - More alert ---> however on 08/23 and 08/24 she has been more sleepy ---> weaned multiple sedatives including IV Dilaudid (dose to 0.2), she was also hypoglycemic from not eating --> continues to be sleepy, easy to wake up to voice but goes back to sleep when she is back by herself despite adjusting sedatives few days ago ----> Decreased Methadone down to 50 mg daily and can go up again if she start craving 09/12: Decreased methadone to 40 mg/day; 09/15: more awake, using oxycodone for pain -continue methadone, taper off over time. Hold oxycodone if drowsy; -clonidine tapered off VSS Assessment & Plan (09/15/2024 1:15 PM CDT): Methadone Recommended by Psychiatry----> titrated up to 70 mg Daily and is on scheduled clonidine. - Pt also using prn oxycodone; found to be somnolent 15 a.m ---> Methadone may be accumulating in this HD patient. ---> Methadone dose titrated down to 60 mg 08/15, pt without pain except for hand dressing changes. - More alert ---> however on 08/23 and 08/24 she has been more sleepy ---> weaned multiple sedatives including IV Dilaudid (dose to 0.2), she was also hypoglycemic from not eating --> continues to be sleepy, easy to wake up to voice but goes back to sleep when she is back by herself despite adjusting sedatives few days ago ----> Decreased Methadone down to 50 mg daily and can go up again if she start craving 09/12: Decreased methadone to 40 mg/day; 09/15: She is more awake now -continue methadone, taper off over time. Hold oxycodone if drowsy; -clonidine tapered off Assessment & Plan (09/14/2024 5:05 PM CDT): Methadone Recommended by Psychiatry----> titrated up to 70 mg Daily and is on scheduled clonidine. - Pt also using prn oxycodone; found to be somnolent 15 a.m ---> Methadone may be accumulating in this HD patient. ---> Methadone dose titrated down to 60 mg 08/15, pt without pain except for hand dressing changes. - More alert ---> however on 08/23 and 08/24 she has been more sleepy ---> weaned multiple sedatives including IV Dilaudid (dose to 0.2), she was also hypoglycemic from not eating --> continues to be sleepy, easy to wake up to voice but goes back to sleep when she is back by herself despite adjusting sedatives few days ago ----> Decreased Methadone down to 50 mg daily and can go up again if she start craving 09/12: Decreased methadone to 40 mg/day; Plan -continue methadone, taper off over time. Hold oxycodone if drowsy; -clonidine tapering off Assessment & Plan (09/13/2024 1:28 PM CDT): Methadone Recommended by Psychiatry----> titrated up to 70 mg Daily and is on scheduled clonidine. - Pt also using prn oxycodone; found to be somnolent 15 a.m ---> Methadone may be accumulating in this HD patient. ---> Methadone dose titrated down to 60 mg 08/15, pt without pain except for hand dressing changes. - More alert ---> however on 08/23 and 08/24 she has been more sleepy ---> weaned multiple sedatives including IV Dilaudid (dose to 0.2), she was also hypoglycemic from not eating --> continues to be sleepy, easy to wake up to voice but goes back to sleep when she is back by herself despite adjusting sedatives few days ago ----> Decreased Methadone down to 50 mg daily and can go up again if she start craving 09/12: Decreased methadone to 40 mg/day; Plan -continue methadone, taper off over time. -clonidine TID Assessment & Plan (09/12/2024 1:13 PM CDT): Methadone Recommended by Psychiatry----> titrated up to 70 mg Daily and is on scheduled clonidine. - Pt also using prn oxycodone; found to be somnolent 15 a.m ---> Methadone may be accumulating in this HD patient. ---> Methadone dose titrated down to 60 mg 08/15, pt without pain except for hand dressing changes. - More alert ---> however on 08/23 and 08/24 she has been more sleepy ---> weaned multiple sedatives including IV Dilaudid (dose to 0.2), she was also hypoglycemic from not eating --> continues to be sleepy, easy to wake up to voice but goes back to sleep when she is back by herself despite adjusting sedatives few days ago ----> Decreased Methadone down to 50 mg daily and can go up again if she start craving 09/12: Decrease methadone to 40 mg/day; Plan -continue methadone, taper off over time. -clonidine TID Assessment & Plan (09/11/2024 5:22 PM CDT): Methadone Recommended by Psychiatry----> titrated up to 70 mg Daily and is on scheduled clonidine. - Pt also using prn oxycodone; found to be somnolent 15 a.m ---> Methadone may be accumulating in this HD patient. ---> Methadone dose titrated down to 60 mg 08/15, pt without pain except for hand dressing changes. - More alert ---> however on 08/23 and 08/24 she has been more sleepy ---> weaned multiple sedatives including IV Dilaudid (dose to 0.2), she was also hypoglycemic from not eating --> continues to be sleepy, easy to wake up to voice but goes back to sleep when she is back by herself despite adjusting sedatives few days ago ----> Decreased Methadone down to 50 mg daily and can go up again if she start craving Plan -continue methadone -clonidine TID Assessment & Plan (09/10/2024 7:45 AM CDT): Methadone Recommended by Psychiatry----> titrated up to 70 mg Daily and is on scheduled clonidine. - Pt also using prn oxycodone; found to be somnolent 08/14 a.m ---> Methadone may be accumulating in this HD patient. ---> Methadone dose titrated down to 60 mg 08/15, pt without pain except for hand dressing changes. - More alert ---> however on 08/23 and 08/24 she has been more sleepy ---> weaned multiple sedatives including IV Dilaudid (dose to 0.2), she was also hypoglycemic from not eating --> continues to be sleepy, easy to wake up to voice but goes back to sleep when she is back by herself despite adjusting sedatives few days ago ----> Decreased Methadone down to 50 mg daily and can go up again if she start craving Plan -continue methadone -clonidine TID Assessment & Plan (09/09/2024 7:28 AM CDT): Methadone Recommended by Psychiatry----> titrated up to 70 mg Daily and is on scheduled clonidine. - Pt also using prn oxycodone; found to be somnolent /15 a.m ---> Methadone may be accumulating in this HD patient. ---> Methadone dose titrated down to 60 mg 08/15, pt without pain except for hand dressing changes. - More alert ---> however on 08/23 and 08/24 she has been more sleepy ---> weaned multiple sedatives including IV Dilaudid (dose to 0.2), she was also hypoglycemic from not eating --> continues to be sleepy, easy to wake up to voice but goes back to sleep when she is back by herself despite adjusting sedatives few days ago ----> Decreased Methadone down to 50 mg daily and can go up again if she start craving Plan -continue methadone -clonidine TID Assessment & Plan (09/08/2024 1:38 PM CDT): Methadone Recommended by Psychiatry----> titrated up to 70 mg Daily and is on scheduled clonidine. - Pt also using prn oxycodone; found to be somnolent 4/15 a.m ---> Methadone may be accumulating in this HD patient. ---> Methadone dose titrated down to 60 mg 08/15, pt without pain except for hand dressing changes. - More alert ---> however on 08/23 and 08/24 she has been more sleepy ---> weaned multiple sedatives including IV Dilaudid (dose to 0.2), she was also hypoglycemic from not eating --> continues to be sleepy, easy to wake up to voice but goes back to sleep when she is back by herself despite adjusting sedatives few days ago ----> Decreased Methadone down to 50 mg daily and can go up again if she start craving Plan -continue methadone -clonidine TID Assessment & Plan (09/07/2024 7:42 PM CDT): Methadone Recommended by Psychiatry----> titrated up to 70 mg Daily and is on scheduled clonidine. - Pt also using prn oxycodone; found to be somnolent 4/15 a.m ---> Methadone may be accumulating in this HD patient. ---> Methadone dose titrated down to 60 mg 08/15, pt without pain except for hand dressing changes. - More alert ---> however on 08/23 and 08/24 she has been more sleepy ---> weaned multiple sedatives including IV Dilaudid (dose to 0.2), she was also hypoglycemic from not eating --> continues to be sleepy, easy to wake up to voice but goes back to sleep when she is back by herself despite adjusting sedatives few days ago ----> Decreased Methadone down to 50 mg daily and can go up again if she start craving Plan -continue methadone -clonidine TID Assessment & Plan (09/06/2024 6:03 AM CDT): Methadone Recommended by Psychiatry----> titrated up to 70 mg Daily and is on scheduled clonidine. - Pt also using prn oxycodone; found to be somnolent 08/14 a.m ---> Methadone may be accumulating in this HD patient. ---> Methadone dose titrated down to 60 mg 08/15, pt without pain except for hand dressing changes. - More alert ---> however on 08/23 and 08/24 she has been more sleepy ---> weaned multiple sedatives including IV Dilaudid (dose to 0.2), she was also hypoglycemic from not eating --> continues to be sleepy, easy to wake up to voice but goes back to sleep when she is back by herself despite adjusting sedatives few days ago ----> Decreased Methadone down to 50 mg daily and can go up again if she start craving Plan -continue methadone -clonidine TID Assessment & Plan (2024 7:59 AM CDT): Methadone Recommended by Psychiatry----> titrated up to 70 mg Daily and is on scheduled clonidine. - Pt also using prn oxycodone; found to be somnolent 08/14 a.m ---> Methadone may be accumulating in this HD patient. ---> Methadone dose titrated down to 60 mg 08/15, pt without pain except for hand dressing changes. - More alert ---> however on 08/23 and 08/24 she has been more sleepy ---> weaned multiple sedatives including IV Dilaudid (dose to 0.2), she was also hypoglycemic from not eating --> continues to be sleepy, easy to wake up to voice but goes back to sleep when she is back by herself despite adjusting sedatives few days ago ----> Decreased Methadone down to 50 mg daily and can go up again if she start craving Plan -continue methadone -clonidine TID Assessment & Plan (09/04/2024 7:56 AM CDT): Methadone Recommended by Psychiatry----> titrated up to 70 mg Daily and is on scheduled clonidine. - Pt also using prn oxycodone; found to be somnolent 4/15 a.m ---> Methadone may be accumulating in this HD patient. ---> Methadone dose titrated down to 60 mg 08/15, pt without pain except for hand dressing changes. - More alert ---> however on 08/23 and 08/24 she has been more sleepy ---> weaned multiple sedatives including IV Dilaudid (dose to 0.2), she was also hypoglycemic from not eating --> continues to be sleepy, easy to wake up to voice but goes back to sleep when she is back by herself despite adjusting sedatives few days ago ----> Decreased Methadone down to 50 mg daily and can go up again if she start craving Plan -continue methadone -clonidine TID Assessment & Plan (09/03/2024 4:35 PM CDT): Methadone Recommended by Psychiatry----> titrated up to 70 mg Daily and is on scheduled clonidine. - Pt also using prn oxycodone; found to be somnolent 4/15 a.m ---> Methadone may be accumulating in this HD patient. ---> Methadone dose titrated down to 60 mg 08/15, pt without pain except for hand dressing changes. - More alert ---> however on 08/23 and 08/24 she has been more sleepy ---> weaned multiple sedatives including IV Dilaudid (dose to 0.2), she was also hypoglycemic from not eating --> continues to be sleepy, easy to wake up to voice but goes back to sleep when she is back by herself despite adjusting sedatives few days ago ----> Decreased Methadone down to 50 mg daily and can go up again if she start craving Plan -continue methadone -clonidine TID Assessment & Plan (09/02/2024 4:41 PM CDT): Methadone Recommended by Psychiatry----> titrated up to 70 mg Daily and is on scheduled clonidine. - Pt also using prn oxycodone; found to be somnolent 415 a.m ---> Methadone may be accumulating in this HD patient. ---> Methadone dose titrated down to 60 mg 08/15, pt without pain except for hand dressing changes. - More alert ---> however on 08/23 and 08/24 she has been more sleepy ---> weaned multiple sedatives including IV Dilaudid (dose to 0.2), she was also hypoglycemic from not eating --> continues to be sleepy, easy to wake up to voice but goes back to sleep when she is back by herself despite adjusting sedatives few days ago ----> Decreased Methadone down to 50 mg daily and can go up again if she start craving Plan -continue methadone -clonidine TID Assessment & Plan (09/01/2024 10:49 AM CDT): Methadone Recommended by Psychiatry----> titrated up to 70 mg Daily and is on scheduled clonidine. - Pt also using prn oxycodone; found to be somnolent 08/14 a.m ---> Methadone may be accumulating in this HD patient. ---> Methadone dose titrated down to 60 mg 08/15, pt without pain except for hand dressing changes. - More alert ---> however on 08/23 and 08/24 she has been more sleepy ---> weaned multiple sedatives including IV Dilaudid (dose to 0.2), she was also hypoglycemic from not eating --> continues to be sleepy, easy to wake up to voice but goes back to sleep when she is back by herself despite adjusting sedatives few days ago ----> Decreased Methadone down to 50 mg daily and can go up again if she start craving Assessment & Plan (08/31/2024 5:05 PM CDT): Methadone Recommended by Psychiatry----> titrated up to 70 mg Daily and is on scheduled clonidine. - Pt also using prn oxycodone; found to be somnolent 15 a.m ---> Methadone may be accumulating in this HD patient. ---> Methadone dose titrated down to 60 mg 08/15, pt without pain except for hand dressing changes. - More alert ---> however on 08/23 and 08/24 she has been more sleepy ---> weaned multiple sedatives including IV Dilaudid (dose to 0.2), she was also hypoglycemic from not eating --> continues to be sleepy, easy to wake up to voice but goes back to sleep when she is back by herself despite adjusting sedatives few days ago ----> Decreased Methadone down to 50 mg daily and can go up again if she start craving Assessment & Plan (08/30/2024 1:00 PM CDT): Methadone Recommended by Psychiatry----> titrated up to 70 mg Daily and is on scheduled clonidine. - Pt also using prn oxycodone; found to be somnolent 15 a.m ---> Methadone may be accumulating in this HD patient. ---> Methadone dose titrated down to 60 mg 08/15, pt without pain except for hand dressing changes. - More alert ---> however on 08/23 and 08/24 she has been more sleepy ---> weaned multiple sedatives including IV Dilaudid (dose to 0.2), she was also hypoglycemic from not eating --> continues to be sleepy, easy to wake up to voice but goes back to sleep when she is back by herself despite adjusting sedatives few days ago ----> Decreased Methadone down to 50 mg daily and can go up again if she start craving Assessment & Plan (08/29/2024 4:00 PM CDT): Methadone Recommended by Psychiatry----> titrated up to 70 mg Daily and is on scheduled clonidine. - Pt also using prn oxycodone; found to be somnolent 4/15 a.m ---> Methadone may be accumulating in this HD patient. ---> Methadone dose titrated down to 60 mg 08/15, pt without pain except for hand dressing changes. - More alert ---> however on 08/23 and 08/24 she has been more sleepy ---> weaned multiple sedatives including IV Dilaudid (dose to 0.2), she was also hypoglycemic from not eating --> continues to be sleepy, easy to wake up to voice but goes back to sleep when she is back by herself despite adjusting sedatives few days ago ----> Decreased Methadone down to 50 mg daily and can go up again if she start craving Assessment & Plan (08/28/2024 3:14 PM CDT): Methadone Recommended by Psychiatry----> titrated up to 70 mg Daily and is on scheduled clonidine. - Pt also using prn oxycodone; found to be somnolent 15 a.m ---> Methadone may be accumulating in this HD patient. ---> Methadone dose titrated down to 60 mg 08/15, pt without pain except for hand dressing changes. - More alert ---> however on 08/23 and 08/24 she has been more sleepy ---> weaned multiple sedatives including IV Dilaudid (dose to 0.2), she was also hypoglycemic from not eating --> continues to be sleepy, easy to wake up to voice but goes back to sleep when she is back by herself despite adjusting sedatives few days ago ----> Will Decrease Methadone down to 50 mg daily and can go up again if she start craving Assessment & Plan (08/27/2024 5:42 PM CDT): Methadone Recommended by Psychiatry----> titrated up to 70 mg Daily and is on scheduled clonidine. - Pt also using prn oxycodone; found to be somnolent 15 a.m ---> Methadone may be accumulating in this HD patient. ---> Methadone dose titrated down to 60 mg 08/15, pt without pain except for hand dressing changes. - More alert ---> however on 08/23 and 08/24 she has been more sleepy ---> weaned multiple sedatives including IV Dilaudid (dose to 0.2), she was also hypoglycemic from not eating --> continues to be sleepy, easy to wake up to voice but goes back to sleep when she is back by herself despite adjusting sedatives few days ago ----> Will Decrease Methadone down to 50 mg daily and can go up again if she start craving Assessment & Plan (08/26/2024 2:31 PM CDT): Toxicology following, on methadone 70 mg Daily and scheduled clonidine. - Pt also using prn oxycodone; found to be somnolent 4/15 a.m ---> Methadone may be accumulating in this HD patient. ---> Methadone dose titrated down to 60 mg 08/15, pt without pain except for hand dressing changes. - More alert ---> however on 08/23 and 08/24 she has been more sleepy ---> weaned multiple sedatives including IV Dilaudid (dose to 0.2) --> will keep monitoring and if continues to be lethargic will wean methadone Assessment & Plan (08/25/2024 4:11 PM CDT): Toxicology following, on methadone 70 mg Daily and scheduled clonidine. - Pt also using prn oxycodone; found to be somnolent 4/15 a.m ---> Methadone may be accumulating in this HD patient. ---> Methadone dose titrated down to 60 mg 08/15, pt without pain except for hand dressing changes. - More alert ---> however on 08/23 and 08/24 she has been more sleepy ---> weaned multiple sedatives including IV Dilaudid (dose to 0.2) --> will keep monitoring and if continues to be lethargic will wean methadone Assessment & Plan (08/24/2024 5:42 PM CDT): Toxicology following, on methadone 70 mg Daily and scheduled clonidine. - Pt also using prn oxycodone; found to be somnolent 4/15 a.m ---> Methadone may be accumulating in this HD patient. ---> Methadone dose titrated down to 60 mg 08/15, pt without pain except for hand dressing changes. - More alert ---> however on 08/23 and 08/24 she has been more sleepy ---> wean IV Dilaudid dose to 0.2 - Decrease Oxycodone to once daily before dressing change Assessment & Plan (08/23/2024 5:52 PM CDT): Toxicology following, on methadone 70 mg Daily and scheduled clonidine. Pt also using prn oxycodone; found to be somnolent 4/15 a.m. Methadone may be accumulating in this HD patient. Methadone dose titrated down to 60 mg 16, pt without pain except for hand dressing changes. More alert IV Dilaudid for severe back pain; pt has tolerance Assessment & Plan (08/22/2024 6:32 PM CDT): Toxicology following, on methadone 70 mg Daily and scheduled clonidine. Pt also using prn oxycodone; found to be somnolent 4/15 a.m. Methadone may be accumulating in this HD patient. Methadone dose titrated down to 60 mg 08/15, pt without pain except for hand dressing changes. More alert IV Dilaudid for severe back pain; pt has tolerance Assessment & Plan (08/21/2024 5:24 PM CDT): Toxicology following, on methadone 70 mg Daily and scheduled clonidine. Pt also using prn oxycodone; found to be somnolent 4/15 a.m. Methadone may be accumulating in this HD patient. Methadone dose titrated down to 60 mg 08/15, pt without pain except for hand dressing changes. More alert; somnolent after oxy 10 for dressing changes. IV Dilaudid for severe back pain; pt has tolerance Assessment & Plan (08/20/2024 1:53 PM CDT): Toxicology following, on methadone 70 mg Daily and scheduled clonidine. Pt also using prn oxycodone; found to be somnolent 4/15 a.m. Methadone may be accumulating in this HD patient. Methadone dose titrated down to 60 mg 08/15, pt without pain except for hand dressing changes. More alert; somnolent after oxy 10 for dressing changes. IV Dilaudid for severe back pain; pt has tolerance Assessment & Plan (08/19/2024 1:53 PM CDT): Toxicology following, on methadone 70 mg Daily and scheduled clonidine. Pt also using prn oxycodone; found to be somnolent 4/15 a.m. Methadone may be accumulating in this HD patient. Methadone dose titrated down to 60 mg 4/16, pt without pain except for hand dressing changes. More alert; somnolent after oxy 10 for dressing changes. IV Dilaudid for severe back pain; pt has tolerance Assessment & Plan (08/18/2024 2:49 PM CDT): Toxicology following, on methadone 70 mg Daily and scheduled clonidine. Pt also using prn oxycodone; found to be somnolent 4/15 a.m. Methadone may be accumulating in this HD patient. Methadone dose titrated down to 60 mg /16, pt without pain except for hand dressing changes. More alert; somnolent after oxy 10 for dressing changes. IV Dilaudid for severe back pain; pt has tolerance Assessment & Plan (08/17/2024 4:26 PM CDT): Toxicology following, on methadone 70 mg Daily and scheduled clonidine. Pt also using prn oxycodone; found to be somnolent 4/15 a.m. Methadone may be accumulating in this HD patient. Methadone dose titrated down to 60 mg 16, pt without pain except for hand dressing changes. More alert; somnolent after oxy 10 for dressing changes. IV Dilaudid for severe back pain Assessment & Plan (08/16/2024 4:55 PM CDT): Toxicology following, on methadone 70 mg Daily and scheduled clonidine. Pt also using prn oxycodone; found to be somnolent 4/15 a.m. Methadone may be accumulating in this HD patient. Methadone dose titrated down to 60 mg 16, pt without pain except for hand dressing changes. More alert today, somnolent after oxy 10 for dressing changes. Assessment & Plan (08/15/2024 2:17 PM CDT): Toxicology following, on methadone 70 mg Daily and scheduled clonidine. Pt also using prn oxycodone; found to be somnolent 4/15 a.m. Methadone may be accumulating in this HD patient. Methadone dose titrated down to 60 mg /16, pt without pain except for hand dressing changes. More alert today, somnolent after oxy 10 for dressing changes. Assessment & Plan (08/14/2024 1:42 PM CDT): Toxicology following, on methadone 70 mg Daily and scheduled clonidine. Pt also using prn oxycodone; found to be somnolent 4/15 a.m. Methadone may be accumulating in this HD patient. Consider titrating dose down to 60 mg. Assessment & Plan (08/13/2024 2:41 PM CDT): Toxicology following, on methadone 70 mg Daily and scheduled clonidine. Assessment & Plan (08/14/2024 6:38 AM CDT): She has longstanding opioid use disorder that is not in remission. Likely related to injection use and/or xylazine, she has extensive lower extremity wounds. - Management of opioid withdrawal per Psychiatry and ICU primary team. Currently on methadone and supportive medications. She declined buprenorphine citing concerns regarding precipitated withdrawal. - Appreciate Wound Care recommendations management of lower extremity wounds. - [facility], who provides additional services to patients who inject drugs and are admitted to the hospital with invasive infections, has been following her and will check in on her in the hospital. - Complete STI screenings: send urine or cervical swab for GC/CT NAATs and T. vaginalis PCR. Her RPR and HIV 4th generation antibody/antigen testing were non-reactive. - She would be a good candidate for HIV PrEP. We will explore when she is out of the acute setting. Assessment & Plan (09/08/2020 2:37 PM CDT): Starting to have a symptoms of withdrawal towards the evening on current dose of methadone, 145 mg. She talked to her prescriber about this and is planning to request incremental increases until her symptoms are better controlled. Repeat UCx today (last contaminated) Assessment & Plan (07/14/2020 12:50 PM CDT): Reports doing well on current dose. No issues/concerns. Patient requested provider to reach out to Case-Worker Katrina [phone] to discuss methadone dosing as requested to wean dosing. We discussed with patient that maintaining and likely increasing methadone dose in third trimester is to be expected due to the physiology of and metabolism. We also reviewed that increasing this does does not increase the risk of THOMAS in the . structural steel ironworker attempted to be called but patient declines. If katrina calls clinic, may send her a letter stating above. We also reviewed the false-positive rate with amphetamine and higher sensitivity/specificty of our UDS with [facility]. Patient denies relapses and is 9 months sober today. Commended on great work!! 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 We recommend initiating treatment with buprenorphine, a partial opioid agonist, at this time. We reviewed that continuation of this medication is indefinite, as it is the standard of care for treatment of opioid use disorder. We reviewed that her required dose may increase throughout , especially in the third trimester. Additionally, buprenorphine use in conjunction with a benzodiazepine has been associated with respiratory depression, overdose, and ; these two medications should not be used together. In terms of risks, we reviewed that there does not appear to be an increased risk of congenital anomalies in infants born to mothers on maintenance therapy. abstinence syndrome is seen these infants about 60% of the time. All babies born to mothers who have been exposed to any opioids, including buprenorphine, will need to be monitored for signs of withdrawal, and may required prolonged admission for treatment. Additionally, we discussed the mandatory involvement of Social Work and the Department of Family Services for all patients on buprenorphine after the of her baby. If abstinence from illicit drug use is sustained, an ultrasound at 32-34 weeks will be obtained to follow growth; serial ultrasounds and surveillance will be recommended if on-going use is suspected. Urine toxicologies will be sent with every visit to document adherence to her buprenorphine regimen, and avoidance of other substances. An Anesthesia and Medicine consult will be obtained in the third trimester to review pain management during labor and delivery, and THOMAS. We discussed that continuation of her third-trimester buprenorphine dose through labor, delivery, and is strongly recommended to prevent withdrawal. Additionally, we discussed that buprenorphine use appears safe in breast feeding, and in the absence of ongoing illicit drug use, highly encouraged to decrease rates and severity of THOMAS. We discussed the highest rates of relapse occurs peripartum and due to the difficulty of caring for a . Close follow-up with [facility] will be recommended at that time. She has signed the buprenorphine consent and the [facility] in contract today. labs, UDS (verbal consent obtained), CMP, Hepatitis C antibody, and Hepatitis B antibody labs were obtained. She was referred to [facility] Service, Psychiatry, and Social Work. She underwent Narcan counseling/instruction and a prescription with one refill was provided. She has been scheduled on for her buprenorphine induction in the and instructed to abstain from any opioid use for 24 hours prior to that date. UDS History: - 06/23: pending CURRENT REGIMEN: methadone 145mg daily [] Narcan Rx given: Date: 06/23 [] Qtrimester CMP: [] Social work referral: [] Third trimester Psychiatry visit: [] Third trimester anesthesia consult: [] Third trimester Medicine consult: [] Third trimester Hepatitis C antibody: [] 32-34 week growth scan: Anxiety 06/23/2020 Overview (12/08/2020): Previously on Lexparo, did not tolerate. Currently on no medications EPDS 4 Pt has psychiatrist she has already established with and continues to follow with Discussed [facility] at [facility]. 8/9- Reports feelings of increased hopelessness, decreased mood, overall not feeling like herself for the past several months. Open to meeting with [facility] and medication therapy. EPDS 1, denies SI. Rx for zoloft sent. Assessment & Plan (10/01/2024 12:21 PM CDT): Escitalopram 10 daily started as per Psychiatry recommendations Outpatient psychiatric follow up Assessment & Plan (09/30/2024 2:33 PM CDT): Escitalopram 10 daily started as per Psychiatry recommendations Outpatient psychiatric follow up Assessment & Plan (09/29/2024 1:49 PM CDT): Escitalopram 10 daily started as per Psychiatry recommendations Outpatient psychiatric follow up Assessment & Plan (09/28/2024 3:38 PM CDT): Escitalopram 10 daily started as per Psychiatry recommendations Outpatient psychiatric follow up Assessment & Plan (09/27/2024 12:58 PM CDT): Escitalopram 10 daily started as per Psychiatry recommendations Outpatient psychiatric follow up Assessment & Plan (09/26/2024 3:20 PM CDT): Escitalopram 10 daily started as per Psychiatry recommendations Outpatient psychiatric follow up Assessment & Plan (09/25/2024 1:31 PM CDT): Escitalopram 10 daily started as per Psychiatry recommendations Outpatient psychiatric follow up Assessment & Plan (09/24/2024 4:19 PM CDT): Escitalopram 10 daily started as per Psychiatry recommendations Outpatient psychiatric follow up Assessment & Plan (09/23/2024 11:48 AM CDT): Escitalopram 10 daily started as per Psychiatry recommendations Outpatient psychiatric follow up Assessment & Plan (09/22/2024 2:21 PM CDT): Escitalopram 10 daily started as per Psychiatry recommendations Outpatient psychiatric follow up Assessment & Plan (09/21/2024 4:45 PM CDT): Escitalopram 10 daily started as per Psychiatry recommendations Outpatient psychiatric follow up Assessment & Plan (09/20/2024 1:12 PM CDT): Escitalopram 10 daily started as per Psychiatry recommendations Outpatient psychiatric follow up Assessment & Plan (09/19/2024 4:58 PM CDT): Escitalopram 10 daily started as per Psychiatry recommendations Outpatient psychiatric follow up Assessment & Plan (09/08/2020 3:04 PM CDT): Increasing stress in her marriage due to ongoing DCFS case. She is now going through possible divorce proceedings because of the stress. Offered any assistance that we can provide; she reports having everything she needs for now, but knows she can reach out to us if she needs anything at all. Resolved Problems Problem Noted Date Diagnosed Date Resolved Date Acute hypoxic respiratory failure 09/02/2024 09/07/2024 Assessment & Plan (09/07/2024 7:42 PM CDT): Multifactorial due to pulmonary septic emboli, deconditioned, right loculated pleural effusion -Continue oxygen PRN, on 2 L -Wean O2 as tolerated -Incentive spirometer -Out of bed to chair -Walk test before discharge Assessment & Plan (09/06/2024 6:03 AM CDT): Multifactorial due to pulmonary septic emboli, deconditioned, right loculated pleural effusion -Continue oxygen PRN, on 2 L -Wean O2 as tolerated -Incentive spirometer -Out of bed to chair -Walk test before discharge Assessment & Plan (2024 7:59 AM CDT): Multifactorial due to pulmonary septic emboli, deconditioned, right loculated pleural effusion -Continue oxygen PRN, on 2 L -Wean O2 as tolerated -Incentive spirometer -Out of bed to chair -Walk test before discharge Assessment & Plan (09/04/2024 7:56 AM CDT): Multifactorial due to pulmonary septic emboli, deconditioned, right loculated pleural effusion -Continue oxygen PRN, on 2 L -Wean O2 as tolerated -Incentive spirometer -Out of bed to chair -Walk test before discharge Assessment & Plan (09/03/2024 4:35 PM CDT): Multifactorial due to pulmonary septic emboli, deconditioned, right loculated pleural effusion -Continue oxygen PRN, on 2 L -Wean O2 as tolerated -Incentive spirometer -Out of bed to chair -Walk test before discharge Assessment & Plan (09/02/2024 4:47 PM CDT): Multifactorial due to pulmonary septic emboli, deconditioned, right loculated pleural effusion -Continue oxygen PRN, on 2 L -Wean O2 as tolerated -Incentive spirometer -Out of bed to chair -Walk test before discharge Vaginal discharge 08/15/2024 09/08/2024 Assessment & Plan (09/08/2024 1:38 PM CDT): In setting of antibiotics Likely yeast infection. S/p antifungal vaginal suppository Improved Assessment & Plan (09/07/2024 7:42 PM CDT): In setting of antibiotics Likely yeast infection. S/p antifungal vaginal suppository Improved Assessment & Plan (09/06/2024 6:03 AM CDT): In setting of antibiotics Likely yeast infection. S/p antifungal vaginal suppository Improved Assessment & Plan (2024 7:59 AM CDT): In setting of antibiotics Likely yeast infection. S/p antifungal vaginal suppository Improved Assessment & Plan (09/04/2024 7:56 AM CDT): In setting of antibiotics Likely yeast infection. S/p antifungal vaginal suppository Improved Assessment & Plan (09/03/2024 4:35 PM CDT): In setting of antibiotics Likely yeast infection. S/p antifungal vaginal suppository Improved Assessment & Plan (09/02/2024 4:41 PM CDT): In setting of antibiotics Likely yeast infection. S/p antifungal vaginal suppository Improved Assessment & Plan (09/01/2024 10:49 AM CDT): In setting of antibiotics Likely yeast infection Will treat with antifungal vaginal suppository Monitor for effectiveness Assessment & Plan (08/31/2024 5:05 PM CDT): In setting of antibiotics Likely yeast infection Will treat with antifungal vaginal suppository Monitor for effectiveness Assessment & Plan (08/30/2024 1:00 PM CDT): In setting of antibiotics Likely yeast infection Will treat with antifungal vaginal suppository Monitor for effectiveness Assessment & Plan (08/29/2024 4:00 PM CDT): In setting of antibiotics Likely yeast infection Will treat with antifungal vaginal suppository Monitor for effectiveness Assessment & Plan (08/28/2024 3:14 PM CDT): In setting of antibiotics Likely yeast infection Will treat with antifungal vaginal suppository Monitor for effectiveness Assessment & Plan (08/27/2024 5:42 PM CDT): In setting of antibiotics Likely yeast infection Will treat with antifungal vaginal suppository Monitor for effectiveness Assessment & Plan (08/26/2024 2:31 PM CDT): In setting of antibiotics Likely yeast infection Will treat with antifungal vaginal suppository; Monitor for effectiveness Assessment & Plan (08/25/2024 3:52 PM CDT): In setting of antibiotics Likely yeast infection Will treat with antifungal vaginal suppository; Monitor for effectiveness Assessment & Plan (08/24/2024 5:42 PM CDT): In setting of antibiotics Likely yeast infection Will treat with antifungal vaginal suppository; Monitor for effectiveness Assessment & Plan (08/23/2024 5:52 PM CDT): In setting of antibiotics Likely yeast infection Will treat with antifungal vaginal suppository; Monitor for effectiveness Assessment & Plan (08/22/2024 6:32 PM CDT): In setting of antibiotics Likely yeast infection Will treat with antifungal vaginal suppository; Monitor for effectiveness Assessment & Plan (08/21/2024 5:24 PM CDT): In setting of antibiotics Likely yeast infection Will treat with antifungal vaginal suppository; Monitor for effectiveness Assessment & Plan (08/20/2024 1:53 PM CDT): In setting of antibiotics Likely yeast infection Will treat with antifungal vaginal suppository; Monitor for effectiveness Assessment & Plan (08/19/2024 1:53 PM CDT): In setting of antibiotics Likely yeast infection Will treat with antifungal vaginal suppository; Monitor for effectiveness Assessment & Plan (08/18/2024 2:49 PM CDT): In setting of antibiotics Likely yeast infection Will treat with antifungal vaginal suppository; Monitor for effectiveness Assessment & Plan (08/17/2024 4:26 PM CDT): In setting of antibiotics Likely yeast infection Will treat with antifungal vaginal suppository; Monitor for effectiveness Assessment & Plan (08/16/2024 4:55 PM CDT): In setting of antibiotics Likely yeast infection Will treat with antifungal vaginal suppository; Monitor for effectiveness Assessment & Plan (08/15/2024 2:17 PM CDT): In setting of antibiotics Likely yeast infection Will treat with antifungal vaginal suppository; Monitor for effectiveness Resolved Echogenic bowel of fetus 09/08/2020 03/23/2021 Overview (12/08/2020): 09/08: Echogenic bowel noted on anatomy US, no other soft markers noted though incomplete. We counseled Ms. Miller that echogenic bowel is present in up to 1.8% of ultrasounds in the second trimester. This finding is associated with an increased risk of trisomy 21, with a likelihood ratio of 6.7. Based on her serum screening, this would increase her risk of trisomy 21 to 1 in 4. We additionally reviewed that echogenic bowel is associated with growth restriction, intrauterine bleeding, congenital infection (particularly CMV), cystic fibrosis, and bowel malformations. Ms. Miller reports vaginal bleeding during this , and her - 97-mutation CF screen was negative. Patient declining amniocentesis s/p counseling - CMV and toxo titers normal (c/w prior CMV infection) - T21 - s/p low risk quad screen with 1:10,000 risk - Infection (CMV, toxo) - normal - CF - negative carrier screen 11/04: EFW 1087g (18%ile), normal-appearing bowel 12/08: EFW 1,666g 13% Plan: - serial growth ultrasound, next due 12/22/20 Tobacco abuse 06/23/2020 03/23/2021 Overview (12/08/2020): - 5cig/day - Cessation counseling qvisit - Pt pre-contemplative stage 12/08- Continues to smoke 1/2 ppd. 06/23/2020 03/23/2021 Overview (01/12/2021): First Trimester: [x] Dating Criteria: L=1 [x] Labs: A+, antibody negative, Rubella-Immune, HepB-NR, RPR-NR, HIV- [x] Genetic Screening: First look (11-13wks) WNL, low risk quad screen [x] Hgb electrophoresis: Not Indicated [x] GC/CT - 06/23 neg [x] UCx : neg [x] Pap: 08/11 NILM [x] [facility] referral: CARE pt [x] ASA at 12 weeks: Not indicated Second Trimester: [x] Anatomy ultrasound complete [x] Placenta Location: anterior [x] RPR NR, CBC/T&S: collected today [x] 1hr gtt at 24-28wks: 99 [] Flu Shot (Sep-Dec) [x] Tdap (27-36wks): 11/17 [x] Rhogam (if Rh neg): N/A Third Trimester: [x] CBC/HIV/RPR/T&S: collected today [x] GBS: collected today [x] GC/CT (if indicated): collected today Counseling [x] Method of delivery: Anticipate vaginal delivery. 39wk IOL scheduled for 01/20 at 8AM. [x] Method of contraception: considering LNG IUD, counseled 11/17 [x] Method of feeding: Breast [] Procurement Analyst [] Car seat Discussed [x] PP Depression Counseling Assessment & Plan (07/14/2020 12:51 PM CDT): Formal US obtained today with pictures provided and FLK pending genetic screening We reviewed IOB labs and importance of obtaining. We also reviewed STI screening. Return to clinic in 4 weeks or sooner should needs arise. Nausea and vomiting in 06/23/2020 10/06/2020 Overview (06/23/2020): Patient complaining of daily nausea and emesis No current medications Denies weight loss Reports ability to tolerate small meals Plan: - Rx for [id number], zofran PRN and Pepcid provided 06/23 - Discussed importance of small meals and hydration - [facility] location given Hepatitis C virus infection 08/19/2017 08/17/2024 Overview (01/12/2021): Pt unsure exact dates of hepatitis C diagnosis 07/14 increasing AST/ALT 79/59, viral load 2,845,175, genotype 3 Plan: Has ID appointment on 02/13. Assessment & Plan (08/17/2024 4:26 PM CDT): Per ID note she's achieved clinical cure. Assessment & Plan (08/16/2024 4:55 PM CDT): Per ID note she's achieved clinical cure. Assessment & Plan (08/15/2024 2:17 PM CDT): Per ID note she's achieved clinical cure. Assessment & Plan (08/14/2024 1:42 PM CDT): Per ID note she's achieved clinical cure. Assessment & Plan (08/13/2024 2:41 PM CDT): Per ID note she's achieved clinical cure. Assessment & Plan (08/12/2024 6:20 AM CDT): She was treated with with glecaprevir/pibrentasvir (Mavyret) in 2021. Labs on admission show an undetectable HCV RNA, confirming sustained virologic response. - We shared this news with her and congratulated her on achieving cure. - Treatment of opioid use disorder and harm reduction strategies to reduce the risk of re-infection. She noted recently sharing needles with someone who is hepatitis C positive and not yet treated. Immunizations Immunization Administration Dates Next Due DTaP 01/31/2002,11/22/2000,03/28/2000 Hep A, Ped Unspecified 01/31/2002,03/28/2000 Hep B / HiB 11/22/2000,03/28/2000 IPV 01/31/2002,11/22/2000,03/28/2000 MMR 11/22/2000 Pneumococcal Conjugate 7-Valent 11/22/2000 Tdap 11/17/2020,01/21/2019 Social History Tobacco Use Types Packs/Day Years Used Date Smoking Tobacco: Every Day Cigarettes Tobacco Cessation:Ready to Q uit: No [facility] Utilities Answer Date Recorded In the past 12 months has th e electric, gas, oil, or water company threatened to shut off services in your home? Patient declined 08/22/2024 Social Connection and Isolation Panel [NHANES] A nswer Date Recorded In a typical week, how many times do you talk on the phone with family, friends, or neighbors? Patient declined 08/22/2024 How often do you get togethe r with friends or relatives? Patient declined 08/22/2024 How often do you attend gnosticism or adventism serv ices? Patient declined 08/22/2024 Do you belong to any clubs o r organizations such as gnosticism groups, unions, fraternal or athletic groups, or school groups? Patient declined 08/22/2024 How often do you attend meet ings of the clubs or organizations you belong to? Patient declined 08/22/2024 Are you , , di vorced, , never , or living with a partner? 08/22/2024 AUDIT-C Answer Date Recorded Q1: How often do you have a drink containing alcohol? Never 10/01/2024 Q2: How many drinks containi ng alcohol do you have on a typical day when you are drinking? Patient does not drink Q3: How often do you have si x or more drinks on one occasion? Never 10/01/2024 Overall Financial Resource Strain (CARDIA) Answe r Date Recorded How hard is it for you to pa y for the very basics like food, housing, medical care, and heating? Very hard 08/22/2024 Hunger Vital Sign Answer Date Recorded Within the past 12 months, y ou worried that your food would run out before you got the money to buy more. Patient declined Within the past 12 months, t he food you bought just didn't last and you didn't have money to get more. Patient declined PRAPARE - Transportation Answer Date Re corded In the past 12 months, has l ack of transportation kept you from medical appointments or from getting medications? Yes 08/01 In the past 12 months, has l ack of transportation kept you from meetings, work, or from getting things needed for daily living? Yes 08/22/2024 Borden Depression Scale Answer Date Recorded Borden Depression Scale Total 1 03/23/2021 The thought of harming myself has occurred to me . Never 03/23/2021 Housing Stability Vital Sign Answer Terry e Recorded In the last 12 months, was t here a time when you were not able to pay the mortgage or rent on time? Yes 08/22/2024 In the past 12 months, how m any times have you moved where you were living? 2 08/22/2024 At any time in the past 12 m [facility], were you homeless or living in a longterm (including now)? Yes 08/22/2024 Personal Safety Answer Date Recorded Have you ever been in or are you currently in a harmful physical or emotional relationship or is someone making you feel afraid or unsafe? 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 Gender Identity Not on file Sexual Orientation Not on file Last Filed Vital Signs Vital Sign Reading Time Taken Comments Blood Pressure 114/75 10/01/2024 12:31 PM CDT Pulse 87 10/01/2024 12:31 PM CDT Temperature 36.5 C (97.7 F) 10/01/2024 1:29 PM CDT Respiratory Rate 16 10/01/2024 11:5 0 AM CDT Oxygen Saturation 99% 10/01/2024 12: 31 PM CDT Inhaled Oxygen Concentration - - Weight 62.9 kg (138 lb 10.7 oz) 10/01/2024 5:50 AM CDT Height 170.2 cm (5' 7.01) 08/05/2024 1 1:10 PM CDT Body Mass Index 21.71 08/05/2024 11:10 PM CDT Plan of Treatment Not on file Procedures Procedure Name Priority Date/Time Associated Diagnosis Comments POCT GLUCOSE DEVICE Routine 10/01/2024 1 :26 PM CDT REMOVE TUNNELED LINE ED Urgent/IP Urgent 10/01/2024 11:25 AM CDT POCT GLUCOSE DEVICE Routine 10/01/2024 7 :31 AM CDT POCT GLUCOSE DEVICE Routine 10/01/2024 6 :34 AM CDT POCT GLUCOSE DEVICE Routine 09/30/2024 9 :11 PM CDT EGFR Timed 09/30/2024 7:49 PM CDT PHOSPHORUS Timed 09/30/2024 7:49 PM CDT BILIRUBIN, DIRECT Timed 09/30/2024 7:4 9 PM CDT COMPREHENSIVE METABOLIC PANEL Timed 09/30/2024 7:49 PM CDT DIFFERENTIAL AUTO Timed 09/30/2024 7:4 9 PM CDT CBC WITH AUTO DIFFERENTIAL Timed 09/30/2024 7:49 PM CDT POCT GLUCOSE DEVICE Routine 09/30/2024 5 :42 PM CDT POCT GLUCOSE DEVICE Routine 09/30/2024 11:30 AM CDT POCT GLUCOSE DEVICE Routine 09/30/2024 9 :31 AM CDT POCT GLUCOSE DEVICE Routine 09/30/2024 6 :51 AM CDT POCT GLUCOSE DEVICE Routine 09/29/2024 7 :48 PM CDT POCT GLUCOSE DEVICE Routine 09/29/2024 5 :00 PM CDT POCT GLUCOSE DEVICE Routine 09/29/2024 11:43 AM CDT POCT GLUCOSE DEVICE Routine 09/29/2024 9 :22 AM CDT POCT GLUCOSE DEVICE Routine 09/28/2024 11:42 PM CDT HEMODIALYSIS Routine 09/28/2024 6:14 PM CDT TRICHOMONAS VAGINALIS PCR Routine 09/28/2024 5:40 PM CDT POCT GLUCOSE DEVICE Routine 09/28/2024 5 :04 PM CDT DRUGS OF ABUSE SCREEN, URINE WITH REFLEX CONFIRMATION Routine 09/28/2024 3:02 PM CDT N. GONORRHOEAE/C. TRACHOMATIS AMPLIFICATION Routine 09/28/2024 3:02 PM CDT POCT GLUCOSE DEVICE Routine 09/28/2024 11:51 AM CDT REFLEX HEPATITIS C RNA Routine 11:04 AM CDT RPR Routine 09/28/2024 11:04 AM CDT HEPATITIS C ANTIBODY Routine 09/28/2024 11:04 AM CDT HEPATITIS B SURFACE ANTIBODY (IMMUNE STATUS) Routine 09/28/2024 11:04 AM CDT HEPATITIS B CORE ANTIBODY, TOTAL Routine 09/28/2024 11:04 AM CDT HEPATITIS B SURFACE ANTIGEN Routine 09/28/2024 11:04 AM CDT HEPATITIS A ANTIBODY, TOTAL Routine 09/28/2024 11:04 AM CDT HIV 1/2 ANTIBODY PLUS P24 ANTIGEN Routine 09/28/2024 11:04 AM CDT POCT GLUCOSE DEVICE Routine 09/28/2024 7 :52 AM CDT EGFR Timed 09/27/2024 10:15 PM CDT RENAL FUNCTION PANEL Timed 09/27/2024 10:15 PM CDT POCT GLUCOSE DEVICE Routine 09/27/2024 9 :07 PM CDT POCT GLUCOSE DEVICE Routine 09/27/2024 5 :26 PM CDT POCT GLUCOSE DEVICE Routine 09/27/2024 12:43 PM CDT POST-DIALYSIS BUN STAT 09/27/2024 12:11 PM CDT POCT GLUCOSE DEVICE Routine 09/27/2024 11:01 AM CDT HEMODIALYSIS Routine 09/27/2024 10:30 AM CDT POCT GLUCOSE DEVICE Routine 09/27/2024 10:07 AM CDT PRE-DIALYSIS BUN STAT 09/27/2024 8:32 AM CDT HEPATITIS B SURFACE ANTIGEN STAT 09/27/2024 8:32 AM CDT POCT GLUCOSE DEVICE Routine 09/27/2024 7 :34 AM CDT POCT GLUCOSE DEVICE Routine 09/26/2024 9 :35 PM CDT POCT GLUCOSE DEVICE Routine 09/26/2024 6 :22 PM CDT POCT GLUCOSE DEVICE Routine 09/26/2024 1 :11 PM CDT POCT GLUCOSE DEVICE Routine 09/26/2024 9 :17 AM CDT POCT GLUCOSE DEVICE Routine 09/26/2024 8 :47 AM CDT EGFR Timed 09/25/2024 9:54 PM CDT RENAL FUNCTION PANEL Timed 09/25/2024 9:54 PM CDT POCT GLUCOSE DEVICE Routine 09/25/2024 8 :15 PM CDT POCT GLUCOSE DEVICE Routine 09/25/2024 6 :12 PM CDT POCT GLUCOSE DEVICE Routine 09/25/2024 5 :17 PM CDT POCT GLUCOSE DEVICE Routine 09/25/2024 12:27 PM CDT POCT GLUCOSE DEVICE Routine 09/25/2024 7 :43 AM CDT POCT GLUCOSE DEVICE Routine 09/25/2024 3 :34 AM CDT POCT GLUCOSE DEVICE Routine 09/24/2024 9 :42 PM CDT POCT GLUCOSE DEVICE Routine 09/24/2024 5 :06 PM CDT POCT GLUCOSE DEVICE Routine 09/24/2024 12:09 PM CDT POCT GLUCOSE DEVICE Routine 09/24/2024 11:14 AM CDT POCT GLUCOSE DEVICE Routine 09/24/2024 12:09 AM CDT DIFFERENTIAL AUTO Timed 09/23/2024 11:05 PM CDT EGFR Timed 09/23/2024 11:05 PM CDT PHOSPHORUS Timed 09/23/2024 11:05 PM CDT BILIRUBIN, DIRECT Timed 09/23/2024 11:05 PM CDT COMPREHENSIVE METABOLIC PANEL Timed 09/23/2024 11:05 PM CDT CBC WITH AUTO DIFFERENTIAL Timed 09/23/2024 11:05 PM CDT POCT GLUCOSE DEVICE Routine 09/23/2024 6 :42 PM CDT POCT GLUCOSE DEVICE Routine 09/23/2024 12:55 PM CDT POCT GLUCOSE DEVICE Routine 09/23/2024 9 :34 AM CDT POCT GLUCOSE DEVICE Routine 09/23/2024 12:28 AM CDT POCT GLUCOSE DEVICE Routine 09/22/2024 4 :05 PM CDT POCT GLUCOSE DEVICE Routine 09/22/2024 1 :35 PM CDT POCT GLUCOSE DEVICE Routine 09/22/2024 12:20 PM CDT POCT GLUCOSE DEVICE Routine 09/22/2024 8 :14 AM CDT POCT GLUCOSE DEVICE Routine 09/22/2024 7 :25 AM CDT POCT GLUCOSE DEVICE Routine 09/21/2024 9 :12 PM CDT POCT GLUCOSE DEVICE Routine 09/21/2024 4 :21 PM CDT POCT GLUCOSE DEVICE Routine 09/21/2024 1 :56 PM CDT POCT GLUCOSE DEVICE Routine 09/21/2024 1 :25 PM CDT POCT GLUCOSE DEVICE Routine 09/21/2024 11:19 AM CDT POCT GLUCOSE DEVICE Routine 09/21/2024 10:03 AM CDT POCT GLUCOSE DEVICE Routine 09/21/2024 8 :02 AM CDT POCT GLUCOSE DEVICE Routine 09/20/2024 9 :21 PM CDT EGFR Timed 09/20/2024 9:01 PM CDT DIFFERENTIAL AUTO Routine 09/20/2024 9:0 1 PM CDT MAGNESIUM Routine 09/20/2024 9:01 PM CDT CBC WITH AUTO DIFFERENTIAL Routine 09/20/2024 9:01 PM CDT RENAL FUNCTION PANEL Timed 09/20/2024 9:01 PM CDT POCT GLUCOSE DEVICE Routine 09/20/2024 6 :22 PM CDT POCT GLUCOSE DEVICE Routine 09/20/2024 4 :20 PM CDT POCT GLUCOSE DEVICE Routine 09/20/2024 3 :06 PM CDT POCT GLUCOSE DEVICE Routine 09/20/2024 2 :03 PM CDT POCT GLUCOSE DEVICE Routine 09/20/2024 11:04 AM CDT POCT GLUCOSE DEVICE Routine 09/20/2024 9 :48 AM CDT POCT GLUCOSE DEVICE Routine 09/20/2024 8 :13 AM CDT POCT GLUCOSE DEVICE Routine 09/20/2024 5 :56 AM CDT POCT GLUCOSE DEVICE Routine 09/20/2024 3 :36 AM CDT POCT GLUCOSE DEVICE Routine 09/20/2024 2 :16 AM CDT POCT GLUCOSE DEVICE Routine 09/20/2024 12:49 AM CDT POCT GLUCOSE DEVICE Routine 09/19/2024 10:35 PM CDT POCT GLUCOSE DEVICE Routine 09/19/2024 9 :13 PM CDT POCT GLUCOSE DEVICE Routine 09/19/2024 6 :36 PM CDT POCT GLUCOSE DEVICE Routine 09/19/2024 5 :51 PM CDT TRANSTHORACIC ECHO (TTE) LIMITED/FOLLOW UP W LTD DOPPLER/CF WO CONTRAST Routine 09/19/2024 5:11 PM CDT POCT GLUCOSE DEVICE Routine 09/19/2024 1 :50 AM CDT POCT GLUCOSE DEVICE Routine 09/19/2024 12:26 AM CDT POCT GLUCOSE DEVICE Routine 09/18/2024 11:12 PM CDT POCT GLUCOSE DEVICE Routine 09/18/2024 10:55 PM CDT EGFR Timed 09/18/2024 8:36 PM CDT RENAL FUNCTION PANEL Timed 09/18/2024 8:36 PM CDT POCT GLUCOSE DEVICE Routine 09/18/2024 8 :00 PM CDT POCT GLUCOSE DEVICE Routine 09/18/2024 5 :57 PM CDT XR ABDOMEN AP 1 VIEW IP Routine 09/18/2024 4:26 PM CDT POCT GLUCOSE DEVICE Routine 09/18/2024 12:50 PM CDT POCT GLUCOSE DEVICE Routine 09/18/2024 10:23 AM CDT POCT GLUCOSE DEVICE Routine 09/18/2024 9 :02 AM CDT POCT GLUCOSE DEVICE Routine 09/18/2024 7 :48 AM CDT CORTISOL Routine 09/18/2024 6:17 AM CDT POCT GLUCOSE DEVICE Routine 09/17/2024 10:21 PM CDT POCT GLUCOSE DEVICE Routine 09/17/2024 9 :21 PM CDT POCT GLUCOSE DEVICE Routine 09/17/2024 8 :54 PM CDT POCT GLUCOSE DEVICE Routine 09/17/2024 8 :17 PM CDT POCT GLUCOSE DEVICE Routine 09/17/2024 8 :01 PM CDT POCT GLUCOSE DEVICE Routine 09/17/2024 7 :48 PM CDT POCT GLUCOSE DEVICE Routine 09/17/2024 7 :21 PM CDT POCT GLUCOSE DEVICE Routine 09/17/2024 6 :49 PM CDT POCT GLUCOSE DEVICE Routine 09/17/2024 6 :11 PM CDT POCT GLUCOSE DEVICE Routine 09/17/2024 12:03 PM CDT POCT GLUCOSE DEVICE Routine 09/17/2024 9 :18 AM CDT POCT GLUCOSE DEVICE Routine 09/17/2024 8 :42 AM CDT POCT GLUCOSE DEVICE Routine 09/17/2024 7 :57 AM CDT HEMODIALYSIS Routine 09/17/2024 7:40 AM CDT POCT GLUCOSE DEVICE Routine 09/17/2024 1 :34 AM CDT POCT GLUCOSE DEVICE Routine 09/17/2024 1 :25 AM CDT POCT GLUCOSE DEVICE Routine 09/17/2024 1 :19 AM CDT POCT GLUCOSE DEVICE Routine 09/16/2024 9 :23 PM CDT EGFR Timed 09/16/2024 9:17 PM CDT PHOSPHORUS Timed 09/16/2024 9:17 PM CDT BILIRUBIN, DIRECT Timed 09/16/2024 9:1 7 PM CDT COMPREHENSIVE METABOLIC PANEL Timed 09/16/2024 9:17 PM CDT DIFFERENTIAL AUTO Timed 09/16/2024 9:1 7 PM CDT CBC WITH AUTO DIFFERENTIAL Timed 09/16/2024 9:17 PM CDT POCT GLUCOSE DEVICE Routine 09/16/2024 6 :39 PM CDT POCT GLUCOSE DEVICE Routine 09/16/2024 6 :09 PM CDT POCT GLUCOSE DEVICE Routine 09/16/2024 12:08 PM CDT POCT GLUCOSE DEVICE Routine 09/16/2024 7 :54 AM CDT POCT GLUCOSE DEVICE Routine 09/15/2024 9 :09 PM CDT POCT GLUCOSE DEVICE Routine 09/15/2024 6 :04 PM CDT POCT GLUCOSE DEVICE Routine 09/15/2024 1 :04 PM CDT POCT GLUCOSE DEVICE Routine 09/15/2024 12:27 PM CDT POCT GLUCOSE DEVICE Routine 09/14/2024 9 :26 PM CDT POCT GLUCOSE DEVICE Routine 09/14/2024 7 :00 PM CDT POCT GLUCOSE DEVICE Routine 09/14/2024 6 :48 PM CDT POCT GLUCOSE DEVICE Routine 09/14/2024 2 :34 PM CDT HEMODIALYSIS Routine 09/14/2024 1:00 PM CDT POCT GLUCOSE DEVICE Routine 09/14/2024 12:45 PM CDT POCT GLUCOSE DEVICE Routine 09/14/2024 12:17 PM CDT POCT GLUCOSE DEVICE Routine 09/14/2024 9 :30 AM CDT POCT GLUCOSE DEVICE Routine 09/14/2024 8 :15 AM CDT EGFR Timed 09/13/2024 9:10 PM CDT RETICULOCYTES Routine 09/13/2024 9:10 PM CDT FERRITIN Routine 09/13/2024 9:10 PM CDT CBC WITHOUT DIFFERENTIAL Routine 09/13/2024 9:10 PM CDT RENAL FUNCTION PANEL Timed 09/13/2024 9:10 PM CDT POCT GLUCOSE DEVICE Routine 09/13/2024 8 :58 PM CDT POCT GLUCOSE DEVICE Routine 09/13/2024 5 :11 PM CDT POCT GLUCOSE DEVICE Routine 09/13/2024 12:42 PM CDT POCT GLUCOSE DEVICE Routine 09/13/2024 8 :30 AM CDT POCT GLUCOSE DEVICE Routine 09/12/2024 8 :51 PM CDT POCT GLUCOSE DEVICE Routine 09/12/2024 6 :54 PM CDT POCT GLUCOSE DEVICE Routine 09/12/2024 5 :13 PM CDT POCT GLUCOSE DEVICE Routine 09/12/2024 12:37 PM CDT POCT GLUCOSE DEVICE Routine 09/12/2024 9 :59 AM CDT HEMODIALYSIS Routine 09/12/2024 6:40 AM CDT T4, FREE Timed 09/11/2024 10:32 PM CDT THYROID FUNCTION CASCADE Timed 09/11/2024 10:32 PM CDT EGFR Timed 09/11/2024 10:32 PM CDT RENAL FUNCTION PANEL Timed 09/11/2024 10:32 PM CDT POCT GLUCOSE DEVICE Routine 09/11/2024 8 :15 PM CDT POCT GLUCOSE DEVICE Routine 09/11/2024 5 :20 PM CDT POCT GLUCOSE DEVICE Routine 09/11/2024 2 :00 PM CDT POCT GLUCOSE DEVICE Routine 09/11/2024 6 :05 AM CDT POCT GLUCOSE DEVICE Routine 09/11/2024 5 :30 AM CDT BLOOD CULTURE Routine 09/10/2024 11:04 PM CDT RESPIRATORY PATHOGEN PANEL Routine 09/10/2024 8:50 PM CDT POCT GLUCOSE DEVICE Routine 09/10/2024 8 :35 PM CDT XR CHEST 1 VIEW IP Routine 09/10/2024 11:32 AM CDT POCT GLUCOSE DEVICE Routine 09/10/2024 8 :54 AM CDT POCT GLUCOSE DEVICE Routine 09/10/2024 4 :52 AM CDT POCT GLUCOSE DEVICE Routine 09/10/2024 3 :04 AM CDT EGFR Timed 09/09/2024 10:54 PM CDT PHOSPHORUS Timed 09/09/2024 10:54 PM CDT BILIRUBIN, DIRECT Timed 09/09/2024 10:54 PM CDT COMPREHENSIVE METABOLIC PANEL Timed 09/09/2024 10:54 PM CDT DIFFERENTIAL AUTO Timed 09/09/2024 10:54 PM CDT CBC WITH AUTO DIFFERENTIAL Timed 09/09/2024 10:54 PM CDT POCT GLUCOSE DEVICE Routine 09/09/2024 10:38 PM CDT POCT GLUCOSE DEVICE Routine 09/09/2024 7 :51 PM CDT POCT GLUCOSE DEVICE Routine 09/09/2024 2 :55 PM CDT POCT GLUCOSE DEVICE Routine 09/09/2024 12:03 PM CDT POCT GLUCOSE DEVICE Routine 09/09/2024 8 :34 AM CDT POCT GLUCOSE DEVICE Routine 09/09/2024 5 :46 AM CDT POCT GLUCOSE DEVICE Routine 09/09/2024 3 :26 AM CDT POCT GLUCOSE DEVICE Routine 09/09/2024 1 :55 AM CDT HEMODIALYSIS Routine 09/09/2024 12:30 AM CDT POCT GLUCOSE DEVICE Routine 09/09/2024 12:11 AM CDT POCT GLUCOSE DEVICE Routine 09/08/2024 10:15 PM CDT POCT GLUCOSE DEVICE Routine 09/08/2024 8 :51 PM CDT POCT GLUCOSE DEVICE Routine 09/08/2024 2 :10 PM CDT POCT GLUCOSE DEVICE Routine 09/08/2024 1 :37 PM CDT POCT GLUCOSE DEVICE Routine 09/08/2024 10:49 AM CDT POCT GLUCOSE DEVICE Routine 09/08/2024 7 :48 AM CDT POCT GLUCOSE DEVICE Routine 09/08/2024 5 :03 AM CDT POCT GLUCOSE DEVICE Routine 09/07/2024 9 :07 PM CDT POCT GLUCOSE DEVICE Routine 09/07/2024 8 :12 PM CDT POCT GLUCOSE DEVICE Routine 09/07/2024 7 :39 PM CDT HEMODIALYSIS Routine 09/07/2024 11:20 AM CDT POCT GLUCOSE DEVICE Routine 09/07/2024 8 :22 AM CDT POCT GLUCOSE DEVICE Routine 09/07/2024 7 :51 AM CDT EGFR Routine 09/06/2024 9:48 PM CDT BASIC METABOLIC PANEL Routine 09/06/2024 9:48 PM CDT POCT GLUCOSE DEVICE Routine 09/06/2024 9 :30 PM CDT POCT GLUCOSE DEVICE Routine 09/06/2024 5 :32 PM CDT POCT GLUCOSE DEVICE Routine 09/06/2024 11:49 AM CDT POCT GLUCOSE DEVICE Routine 09/06/2024 11:42 AM CDT HEMODIALYSIS Routine 09/06/2024 11:11 AM CDT POCT GLUCOSE DEVICE Routine 09/06/2024 11:01 AM CDT POCT GLUCOSE DEVICE Routine 09/06/2024 10:39 AM CDT POCT GLUCOSE DEVICE Routine 09/06/2024 9 :44 AM CDT EGFR Routine 2024 9:30 PM CDT BASIC METABOLIC PANEL Routine 2024 9:30 PM CDT POCT GLUCOSE DEVICE Routine 2024 9 :16 PM CDT HEPATITIS B SURFACE ANTIGEN STAT 2024 3:29 PM CDT POCT GLUCOSE DEVICE Routine 2024 11:11 AM CDT EGFR Routine 09/04/2024 9:04 PM CDT BASIC METABOLIC PANEL Routine 09/04/2024 9:04 PM CDT POCT GLUCOSE DEVICE Routine 09/04/2024 7 :58 PM CDT POCT GLUCOSE DEVICE Routine 09/04/2024 7 :57 AM CDT URINALYSIS, MICROSCOPIC ONLY Routine 09/04/2024 6:05 AM CDT URINE CULTURE Routine 09/04/2024 6:05 AM CDT URINALYSIS AND REFLEX TO MICROSCOPIC AND CULTURE Routine 09/04/2024 6:05 AM CDT POCT GLUCOSE DEVICE Routine 09/03/2024 11:17 PM CDT EGFR Routine 09/03/2024 10:19 PM CDT BASIC METABOLIC PANEL Routine 09/03/2024 10:19 PM CDT POCT GLUCOSE DEVICE Routine 09/03/2024 3 :07 PM CDT POCT GLUCOSE DEVICE Routine 09/03/2024 11:28 AM CDT POCT GLUCOSE DEVICE Routine 09/03/2024 8 :02 AM CDT HEMODIALYSIS Routine 09/03/2024 6:39 AM CDT POCT GLUCOSE DEVICE Routine 09/03/2024 1 :24 AM CDT POCT GLUCOSE DEVICE Routine 09/03/2024 12:45 AM CDT EGFR Routine 09/02/2024 9:27 PM CDT DIFFERENTIAL AUTO Timed 09/02/2024 9:2 7 PM CDT COMPREHENSIVE METABOLIC PANEL Routine 09/02/2024 9:27 PM CDT CBC WITH AUTO DIFFERENTIAL Timed 09/02/2024 9:27 PM CDT POCT GLUCOSE DEVICE Routine 09/02/2024 8 :55 AM CDT POCT GLUCOSE DEVICE Routine 09/02/2024 12:27 AM CDT EGFR Routine 09/01/2024 8:47 PM CDT COMPREHENSIVE METABOLIC PANEL Routine 09/01/2024 8:47 PM CDT POCT GLUCOSE DEVICE Routine 09/01/2024 4 :32 PM CDT POCT GLUCOSE DEVICE Routine 09/01/2024 12:53 PM CDT POCT GLUCOSE DEVICE Routine 09/01/2024 8 :18 AM CDT POCT GLUCOSE DEVICE Routine 09/01/2024 12:16 AM CDT EGFR Routine 08/31/2024 8:43 PM CDT DIFFERENTIAL AUTO Routine 08/31/2024 8:4 3 PM CDT TYPE AND SCREEN STAT 08/31/2024 8:43 PM CDT CBC WITH AUTO DIFFERENTIAL Routine 08/31/2024 8:43 PM CDT COMPREHENSIVE METABOLIC PANEL Routine 08/31/2024 8:43 PM CDT POCT GLUCOSE DEVICE Routine 08/31/2024 8 :14 PM CDT POCT GLUCOSE DEVICE Routine 08/31/2024 12:04 PM CDT POCT GLUCOSE DEVICE Routine 08/31/2024 9 :29 AM CDT POCT GLUCOSE DEVICE Routine 08/31/2024 8 :48 AM CDT POCT GLUCOSE DEVICE Routine 08/31/2024 8 :22 AM CDT POCT GLUCOSE DEVICE Routine 08/31/2024 12:41 AM CDT POCT GLUCOSE DEVICE Routine 08/31/2024 12:05 AM CDT EGFR Routine 08/30/2024 9:37 PM CDT COMPREHENSIVE METABOLIC PANEL Routine 08/30/2024 9:37 PM CDT POCT GLUCOSE DEVICE Routine 08/30/2024 5 :38 PM CDT HEMODIALYSIS Routine 08/30/2024 5:13 PM CDT POCT GLUCOSE DEVICE Routine 08/30/2024 2 :23 PM CDT POCT GLUCOSE DEVICE Routine 08/30/2024 7 :53 AM CDT POCT GLUCOSE DEVICE Routine 08/30/2024 7 :37 AM CDT POCT GLUCOSE DEVICE Routine 08/30/2024 6 :37 AM CDT POCT GLUCOSE DEVICE Routine 08/30/2024 5 :15 AM CDT POCT GLUCOSE DEVICE Routine 08/29/2024 11:46 PM CDT CRITICAL RESULT CALLBACK CHEMISTRY Routine 08/29/2024 9:27 PM CDT EGFR Routine 08/29/2024 9:27 PM CDT COMPREHENSIVE METABOLIC PANEL Routine 08/29/2024 9:27 PM CDT POCT GLUCOSE DEVICE Routine 08/29/2024 4 :50 PM CDT POCT GLUCOSE DEVICE Routine 08/29/2024 2 :13 PM CDT POCT GLUCOSE DEVICE Routine 08/29/2024 12:57 PM CDT POCT GLUCOSE DEVICE Routine 08/29/2024 8 :53 AM CDT POCT GLUCOSE DEVICE Routine 08/29/2024 8 :32 AM CDT POCT GLUCOSE DEVICE Routine 08/29/2024 8 :00 AM CDT EGFR Routine 08/28/2024 8:51 PM CDT DIFFERENTIAL AUTO Routine 08/28/2024 8:5 1 PM CDT CBC WITH AUTO DIFFERENTIAL Routine 08/28/2024 8:51 PM CDT TYPE AND SCREEN Timed 08/28/2024 8:51 PM CDT COMPREHENSIVE METABOLIC PANEL Routine 08/28/2024 8:51 PM CDT POCT GLUCOSE DEVICE Routine 08/28/2024 8 :07 PM CDT POCT GLUCOSE DEVICE Routine 08/28/2024 7 :20 PM CDT POCT GLUCOSE DEVICE Routine 08/28/2024 6 :58 PM CDT POCT GLUCOSE DEVICE Routine 08/28/2024 12:00 PM CDT POCT GLUCOSE DEVICE Routine 08/28/2024 7 :43 AM CDT EGFR Routine 08/27/2024 9:10 PM CDT COMPREHENSIVE METABOLIC PANEL Routine 08/27/2024 9:10 PM CDT POCT GLUCOSE DEVICE Routine 08/27/2024 6 :28 PM CDT POCT GLUCOSE DEVICE Routine 08/27/2024 4 :35 PM CDT POCT GLUCOSE DEVICE Routine 08/27/2024 11:13 AM CDT POCT GLUCOSE DEVICE Routine 08/27/2024 7 :40 AM CDT XR CHEST 1 VIEW Timed 08/27/2024 5:23 AM CDT EGFR Routine 08/26/2024 9:49 PM CDT DIFFERENTIAL AUTO Routine 08/26/2024 9:4 9 PM CDT CBC WITH AUTO DIFFERENTIAL Routine 08/26/2024 9:49 PM CDT COMPREHENSIVE METABOLIC PANEL Routine 08/26/2024 9:49 PM CDT POCT GLUCOSE DEVICE Routine 08/26/2024 9 :04 PM CDT POCT GLUCOSE DEVICE Routine 08/26/2024 7 :05 PM CDT POCT GLUCOSE DEVICE Routine 08/26/2024 1:17 PM CDT POCT GLUCOSE DEVICE Routine 08/26/2024 8 :18 AM CDT XR CHEST 1 VIEW Timed 08/26/2024 5:41 AM CDT TRANSFUSE RED BLOOD CELLS Timed 08/26/2024 1:39 AM CDT HEMODIALYSIS Routine 08/26/2024 12:30 AM CDT TYPE AND SCREEN Timed 08/26/2024 12:28 AM CDT PREPARE RBC Timed 08/26/2024 12:06 AM CDT EGFR Routine 08/25/2024 10:15 PM CDT DIFFERENTIAL AUTO Routine 08/25/2024 10:15 PM CDT CBC WITH AUTO DIFFERENTIAL Routine 08/25/2024 10:15 PM CDT COMPREHENSIVE METABOLIC PANEL Routine 08/25/2024 10:15 PM CDT POCT GLUCOSE DEVICE Routine 08/25/2024 6 :00 PM CDT XR ABDOMEN AP 1 VIEW IP Routine 08/25/2024 5:01 PM CDT POCT GLUCOSE DEVICE Routine 08/25/2024 1 :48 PM CDT POCT GLUCOSE DEVICE Routine 08/25/2024 10:54 AM CDT POCT GLUCOSE DEVICE Routine 08/25/2024 10:29 AM CDT POCT GLUCOSE DEVICE Routine 08/25/2024 9 :54 AM CDT XR CHEST 1 VIEW Timed 08/25/2024 6:41 AM CDT EGFR Routine 08/24/2024 8:32 PM CDT COMPREHENSIVE METABOLIC PANEL Routine 08/24/2024 8:32 PM CDT POCT GLUCOSE DEVICE Routine 08/24/2024 8 :18 PM CDT POCT GLUCOSE DEVICE Routine 08/24/2024 6 :24 PM CDT POCT GLUCOSE DEVICE Routine 08/24/2024 5 :45 PM CDT POCT GLUCOSE DEVICE Routine 08/24/2024 1 :46 PM CDT POCT GLUCOSE DEVICE Routine 08/24/2024 1 :30 PM CDT POCT GLUCOSE DEVICE Routine 08/24/2024 1 :09 PM CDT POCT GLUCOSE DEVICE Routine 08/24/2024 12:30 PM CDT POCT GLUCOSE DEVICE Routine 08/24/2024 9 :18 AM CDT POCT GLUCOSE DEVICE Routine 08/24/2024 8 :26 AM CDT HEPATITIS B SURFACE ANTIBODY (IMMUNE STATUS) STAT 08/24/2024 7:54 AM CDT XR CHEST 1 VIEW Timed 08/24/2024 7:02 AM CDT EGFR Routine 08/23/2024 8:55 PM CDT DIFFERENTIAL AUTO Routine 08/23/2024 8:5 5 PM CDT CBC WITH AUTO DIFFERENTIAL Routine 08/23/2024 8:55 PM CDT COMPREHENSIVE METABOLIC PANEL Routine 08/23/2024 8:55 PM CDT TYPE AND SCREEN Timed 08/23/2024 8:55 PM CDT POCT GLUCOSE DEVICE Routine 08/23/2024 8 :21 PM CDT POCT GLUCOSE DEVICE Routine 08/23/2024 5 :55 PM CDT TUNNELED LINE PLACEMENT > 5 YEARS IP Routine 08/23/2024 1:37 PM CDT POCT GLUCOSE DEVICE Routine 08/23/2024 10:36 AM CDT POCT GLUCOSE DEVICE Routine 08/23/2024 10:01 AM CDT HEMODIALYSIS Routine 08/23/2024 9:01 AM CDT BLOOD CULTURE Routine 08/23/2024 5:23 AM CDT POCT GLUCOSE DEVICE Routine 08/23/2024 4 :01 AM CDT POCT GLUCOSE DEVICE Routine 08/23/2024 3 :14 AM CDT XR CHEST 1 VIEW Timed 08/23/2024 1:26 AM CDT EGFR Routine 08/22/2024 11:35 PM CDT COMPREHENSIVE METABOLIC PANEL Routine 08/22/2024 11:35 PM CDT POCT GLUCOSE DEVICE Routine 08/22/2024 8 :48 PM CDT POCT GLUCOSE DEVICE Routine 08/22/2024 6 :38 PM CDT POCT GLUCOSE DEVICE Routine 08/22/2024 5 :31 PM CDT POCT GLUCOSE DEVICE Routine 08/22/2024 1 :57 PM CDT POCT GLUCOSE DEVICE Routine 08/22/2024 8 :07 AM CDT POCT GLUCOSE DEVICE Routine 08/22/2024 7 :47 AM CDT EGFR Routine 08/21/2024 10:24 PM CDT FOLATE Routine 08/21/2024 10:24 PM CDT COMPREHENSIVE METABOLIC PANEL Routine 08/21/2024 10:24 PM CDT INFECTION PREVENTION HELEN AURIS PCR, SURVEILLANCE Routine 08/21/2024 7:46 PM CDT POCT GLUCOSE DEVICE Routine 08/21/2024 6 :32 PM CDT POCT GLUCOSE DEVICE Routine 08/21/2024 5 :44 PM CDT XR CHEST 1 VIEW IP Routine 08/21/2024 4:30 PM CDT CELL DIFFERENTIAL, BODY FLUID Routine 08/21/2024 4:14 PM CDT CELL COUNT W/REFLEX DIFFERENTIAL, BODY FLUID Routine 08/21/2024 4:14 PM CDT GLUCOSE, BODY FLUID Routine 08/21/2024 4 :14 PM CDT PROTEIN, BODY FLUID Routine 08/21/2024 4 :14 PM CDT LACTATE DEHYDROGENASE, BODY FLUID Routine 08/21/2024 4:14 PM CDT MYCOLOGY (FUNGAL) CULTURE AND STAIN Routine 08/21/2024 4:14 PM CDT MYCOBACTERIOLOGY AFB CULTURE AND ACID-FAST STAIN Routine 08/21/2024 4:14 PM CDT AEROBIC AND ANAEROBIC CULTURE AND GRAM STAIN Routine 08/21/2024 4:14 PM CDT CHEST TUBE INSERTION Routine 08/21/2024 3:11 PM CDT HEMODIALYSIS Routine 08/21/2024 2:28 PM CDT POCT GLUCOSE DEVICE Routine 08/21/2024 8 :38 AM CDT VITAMIN B12 Routine 08/21/2024 1:29 AM CDT EGFR Routine 08/21/2024 1:29 AM CDT COMPREHENSIVE METABOLIC PANEL Routine 08/21/2024 1:29 AM CDT TYPE AND SCREEN Timed 08/21/2024 1:29 AM CDT INFECTION PREVENTION HELEN AURIS PCR, SURVEILLANCE Routine 08/21/2024 1:29 AM CDT TRANSTHORACIC ECHO (TTE) LIMITED/FOLLOW UP W LTD DOPPLER/CF WO CONTRAST ED Urgent/IP Urgent 08/20/2024 2:[address] CHEST WO CONTRAST ED Urgent/IP Urgent 08/19/2024 12:13 PM CDT MRI LUMBAR SPINE W WO CONTRAST ED Urgent/IP Urgent 08/19/2024 12:05 PM CDT T4, FREE Timed 08/19/2024 5:59 AM CDT TSH Timed 08/19/2024 5:59 AM CDT CORTISOL Timed 08/19/2024 5:59 AM CDT HEMODIALYSIS Routine 08/19/2024 12:30 AM CDT POCT GLUCOSE DEVICE Routine 08/19/2024 12:06 AM CDT POCT GLUCOSE DEVICE Routine 08/18/2024 11:07 PM CDT EGFR Routine 08/18/2024 8:13 PM CDT CRP (ACUTE PHASE) Timed 08/18/2024 8:1 3 PM CDT ERYTHROCYTE SEDIMENTATION RATE Routine 08/18/2024 8:13 PM CDT DIFFERENTIAL AUTO Routine 08/18/2024 8:1 3 PM CDT MAGNESIUM Routine 08/18/2024 8:13 PM CDT COMPREHENSIVE METABOLIC PANEL Routine 08/18/2024 8:13 PM CDT RETICULOCYTES Routine 08/18/2024 8:13 PM CDT CBC WITH AUTO DIFFERENTIAL Routine 08/18/2024 8:13 PM CDT CREATINE KINASE (CK), TOTAL Timed 08/18/2024 8:[address] THORACIC AND LUMBAR SPINE WO CONTRAST Timed 08/17/2024 11:20 PM CDT EGFR Routine 08/17/2024 4:44 PM CDT DIFFERENTIAL AUTO Routine 08/17/2024 4:4 4 PM CDT COMPREHENSIVE METABOLIC PANEL Routine 08/17/2024 4:44 PM CDT RETICULOCYTES Routine 08/17/2024 4:44 PM CDT CBC WITH AUTO DIFFERENTIAL Routine 08/17/2024 4:44 PM CDT TYPE AND SCREEN Timed 08/17/2024 4:44 PM CDT HEPATITIS B SURFACE ANTIBODY (IMMUNE STATUS) Routine 08/17/2024 4:44 PM CDT HEPATITIS B CORE ANTIBODY, TOTAL Routine 08/17/2024 4:44 PM CDT BLOOD CULTURE Routine 08/17/2024 3:03 PM CDT INFECTION PREVENTION HELEN AURIS PCR, SURVEILLANCE Routine 08/17/2024 11:33 AM CDT XR CHEST 1 VIEW IP Routine 08/17/2024 11:23 AM CDT EGFR Routine 08/16/2024 8:17 PM CDT DIFFERENTIAL AUTO Routine 08/16/2024 8:1 7 PM CDT COMPREHENSIVE METABOLIC PANEL Routine 08/16/2024 8:17 PM CDT RETICULOCYTES Routine 08/16/2024 8:17 PM CDT CBC WITH AUTO DIFFERENTIAL Routine 08/16/2024 8:17 PM CDT TRANSFUSE RED BLOOD CELLS Timed 08/16/2024 11:13 AM CDT HEMODIALYSIS Routine 08/16/2024 8:17 AM CDT PREPARE RBC Timed 08/16/2024 8:02 AM CDT EGFR Routine 08/15/2024 9:22 PM CDT DIFFERENTIAL AUTO Routine 08/15/2024 9:2 2 PM CDT COMPREHENSIVE METABOLIC PANEL Routine 08/15/2024 9:22 PM CDT RETICULOCYTES Routine 08/15/2024 9:22 PM CDT CBC WITH AUTO DIFFERENTIAL Routine 08/15/2024 9:22 PM CDT POCT GLUCOSE DEVICE Routine 08/15/2024 9 :20 PM CDT POCT GLUCOSE DEVICE Routine 08/15/2024 5 :54 PM CDT POCT GLUCOSE DEVICE Routine 08/15/2024 1 :42 PM CDT POCT GLUCOSE DEVICE Routine 08/15/2024 1 :20 PM CDT POCT GLUCOSE DEVICE Routine 08/15/2024 1 :02 PM CDT POCT GLUCOSE DEVICE Routine 08/15/2024 12:50 PM CDT POCT GLUCOSE DEVICE Routine 08/15/2024 12:41 PM CDT POCT GLUCOSE DEVICE Routine 08/15/2024 11:16 AM CDT BLOOD CULTURE Routine 08/15/2024 8:10 AM CDT POCT GLUCOSE DEVICE Routine 08/15/2024 6 :03 AM CDT POTASSIUM LEVEL Timed 08/15/2024 5:02 AM CDT POCT GLUCOSE DEVICE Routine 08/15/2024 5 :01 AM CDT POCT GLUCOSE DEVICE Routine 08/15/2024 2 :51 AM CDT POCT GLUCOSE DEVICE Routine 08/15/2024 1 :42 AM CDT POCT GLUCOSE DEVICE Routine 08/15/2024 12:49 AM CDT POCT GLUCOSE DEVICE Routine 08/14/2024 11:45 PM CDT POCT GLUCOSE DEVICE Routine 08/14/2024 10:32 PM CDT EGFR Routine 08/14/2024 8:44 PM CDT CRITICAL RESULT CALLBACK CHEMISTRY Routine 08/14/2024 8:44 PM CDT DIFFERENTIAL AUTO Routine 08/14/2024 8:4 4 PM CDT IRON PROFILE W/ IBC Routine 08/14/2024 8 :44 PM CDT COMPREHENSIVE METABOLIC PANEL Routine 08/14/2024 8:44 PM CDT RETICULOCYTES Routine 08/14/2024 8:44 PM CDT CBC WITH AUTO DIFFERENTIAL Routine 08/14/2024 8:44 PM CDT TYPE AND SCREEN Timed 08/14/2024 8:44 PM CDT HEMODIALYSIS Routine 08/14/2024 7:46 AM CDT TRANSFUSE RED BLOOD CELLS Timed 08/14/2024 2:20 AM CDT PREPARE RBC Timed 08/13/2024 11:44 PM CDT EGFR Timed 08/13/2024 10:34 PM CDT DIFFERENTIAL AUTO Timed 08/13/2024 10:34 PM CDT PHOSPHORUS Timed 08/13/2024 10:34 PM CDT CBC WITH AUTO DIFFERENTIAL Timed 08/13/2024 10:34 PM CDT CALCIUM, IONIZED Timed 08/13/2024 10:34 PM CDT BASIC METABOLIC PANEL Timed 08/13/2024 10:34 PM CDT POCT GLUCOSE DEVICE Routine 08/13/2024 7 :51 PM CDT PRE-DIALYSIS BUN Routine 08/13/2024 8:13 AM CDT EGFR Routine 08/13/2024 5:16 AM CDT DIFFERENTIAL AUTO Routine 08/13/2024 5:1 6 AM CDT CALCIUM, IONIZED Routine 08/13/2024 5:16 AM CDT PHOSPHORUS Routine 08/13/2024 5:16 AM CDT MAGNESIUM Routine 08/13/2024 5:16 AM CDT BASIC METABOLIC PANEL Routine 08/13/2024 5:16 AM CDT CBC WITH AUTO DIFFERENTIAL Routine 08/13/2024 5:16 AM CDT HEMOGLOBIN AND HEMATOCRIT Routine 08/12/2024 12:42 PM CDT HEMODIALYSIS Routine 08/12/2024 12:03 PM CDT TRANSFUSE RED BLOOD CELLS Timed 08/12/2024 8:15 AM CDT PREPARE RBC Timed 08/12/2024 7:10 AM CDT EGFR Routine 08/12/2024 5:58 AM CDT DIFFERENTIAL AUTO Routine 08/12/2024 5:5 8 AM CDT CALCIUM, IONIZED Routine 08/12/2024 5:58 AM CDT PHOSPHORUS Routine 08/12/2024 5:58 AM CDT MAGNESIUM Routine 08/12/2024 5:58 AM CDT BASIC METABOLIC PANEL Routine 08/12/2024 5:58 AM CDT CBC WITH AUTO DIFFERENTIAL Routine 08/12/2024 5:58 AM CDT CREATINE KINASE (CK), TOTAL Timed 08/11/2024 6:42 PM CDT HEMOGLOBIN AND HEMATOCRIT Routine 08/11/2024 6:42 PM CDT TRANSFUSE RED BLOOD CELLS Timed 08/11/2024 10:29 AM CDT TYPE AND SCREEN STAT 08/11/2024 8:14 AM CDT PREPARE RBC Timed 08/11/2024 7:11 AM CDT EGFR Routine 08/11/2024 6:14 AM CDT DIFFERENTIAL AUTO Routine 08/11/2024 6:1 4 AM CDT CALCIUM, IONIZED Routine 08/11/2024 6:14 AM CDT PHOSPHORUS Routine 08/11/2024 6:14 AM CDT MAGNESIUM Routine 08/11/2024 6:14 AM CDT BASIC METABOLIC PANEL Routine 08/11/2024 6:14 AM CDT CBC WITH AUTO DIFFERENTIAL Routine 08/11/2024 6:14 AM CDT INFECTION PREVENTION HELEN AURIS PCR, SURVEILLANCE Routine 08/10/2024 7:09 PM CDT EGFR Timed 08/10/2024 12:22 PM CDT BASIC METABOLIC PANEL Timed 08/10/2024 12:22 PM CDT EGFR Routine 08/10/2024 5:01 AM CDT DIFFERENTIAL AUTO Routine 08/10/2024 5:0 1 AM CDT CALCIUM, IONIZED Routine 08/10/2024 5:01 AM CDT PHOSPHORUS Routine 08/10/2024 5:01 AM CDT MAGNESIUM Routine 08/10/2024 5:01 AM CDT BASIC METABOLIC PANEL Routine 08/10/2024 5:01 AM CDT CBC WITH AUTO DIFFERENTIAL Routine 08/10/2024 5:01 AM CDT POCT GLUCOSE DEVICE Routine 08/10/2024 3 :35 AM CDT POTASSIUM LEVEL Timed 08/10/2024 3:35 AM CDT POTASSIUM LEVEL Timed 08/10/2024 12:00 AM CDT POCT GLUCOSE DEVICE Routine 08/09/2024 11:57 PM CDT POCT GLUCOSE DEVICE Routine 08/09/2024 11:01 PM CDT POCT GLUCOSE DEVICE Routine 08/09/2024 10:17 PM CDT POCT GLUCOSE DEVICE Routine 08/09/2024 9 :05 PM CDT POTASSIUM LEVEL Timed 08/09/2024 8:51 PM CDT POCT GLUCOSE DEVICE Routine 08/09/2024 7 :49 PM CDT XR CHEST 1 VIEW ED Urgent/IP Urgent 08/09/2024 6:57 PM CDT POCT GLUCOSE DEVICE Routine 08/09/2024 6 :57 PM CDT POCT GLUCOSE DEVICE Routine 08/09/2024 6 :09 PM CDT POTASSIUM, WHOLE BLOOD STAT 6:00 PM CDT POCT GLUCOSE DEVICE Routine 08/09/2024 5 :20 PM CDT MN INSJ NON-TUNNELED CENTRAL VENOUS CATH AGE 5 YR/> Routine 08/09/2024 5:19 PM CDT Acute bacterial endocarditis BLOOD CULTURE Routine 08/09/2024 5:19 PM CDT CRITICAL RESULT CALLBACK CHEMISTRY Timed 08/09/2024 4:21 PM CDT POTASSIUM LEVEL Timed 08/09/2024 4:21 PM CDT POCT GLUCOSE DEVICE Routine 08/09/2024 4 :07 PM CDT POCT GLUCOSE DEVICE Routine 08/09/2024 3 :22 PM CDT POCT GLUCOSE DEVICE Routine 08/09/2024 1 :00 PM CDT POCT GLUCOSE DEVICE Routine 08/09/2024 12:03 PM CDT POTASSIUM LEVEL Timed 08/09/2024 11:59 AM CDT POCT GLUCOSE DEVICE Routine 08/09/2024 10:57 AM CDT POCT GLUCOSE DEVICE Routine 08/09/2024 10:08 AM CDT ECG 12-LEAD STAT 08/09/2024 8:50 AM CDT MANUAL DIFFERENTIAL Routine 08/09/2024 6 :40 AM CDT EGFR Routine 08/09/2024 6:40 AM CDT CALCIUM, IONIZED Routine 08/09/2024 6:40 AM CDT PHOSPHORUS Routine 08/09/2024 6:40 AM CDT MAGNESIUM Routine 08/09/2024 6:40 AM CDT BASIC METABOLIC PANEL Routine 08/09/2024 6:40 AM CDT CBC WITH AUTO DIFFERENTIAL Routine 08/09/2024 6:40 AM CDT ECG 12-LEAD Routine 08/08/2024 6:22 PM CDT BACTERIAL VAGINOSIS STAIN Routine 08/08/2024 4:24 PM CDT POCT GLUCOSE DEVICE Routine 08/08/2024 4 :07 PM CDT BLOOD CULTURE Routine 08/08/2024 3:04 PM CDT POCT GLUCOSE DEVICE Routine 08/08/2024 12:09 PM CDT POCT GLUCOSE DEVICE Routine 08/08/2024 7 :45 AM CDT EGFR Routine 08/08/2024 5:15 AM CDT DIFFERENTIAL AUTO Routine 08/08/2024 5:1 5 AM CDT CALCIUM, IONIZED Routine 08/08/2024 5:15 AM CDT PHOSPHORUS Routine 08/08/2024 5:15 AM CDT MAGNESIUM Routine 08/08/2024 5:15 AM CDT BASIC METABOLIC PANEL Routine 08/08/2024 5:15 AM CDT CBC WITH AUTO DIFFERENTIAL Routine 08/08/2024 5:15 AM CDT POCT GLUCOSE DEVICE Routine 08/08/2024 3 :59 AM CDT HCG, URINE, QUALITATIVE Routine 08/08/2024 12:04 AM CDT POCT GLUCOSE DEVICE Routine 08/07/2024 11:38 PM CDT POCT GLUCOSE DEVICE Routine 08/07/2024 9 :19 PM CDT POCT GLUCOSE DEVICE Routine 08/07/2024 7 :[address] CHEST ABDOMEN PELVIS WO CONTRAST IP Routine 08/07/2024 3:12 PM CDT ECG 12-LEAD Routine 08/07/2024 12:40 PM CDT MYCOLOGY (FUNGAL) CULTURE AND STAIN Routine 08/07/2024 10:52 AM CDT AEROBIC AND ANAEROBIC CULTURE AND GRAM STAIN Routine 08/07/2024 10:52 AM CDT CRP (ACUTE PHASE) STAT 08/07/2024 8:5 9 AM CDT ERYTHROCYTE SEDIMENTATION RATE STAT 08/07/2024 8:59 AM CDT C4 COMPLEMENT Routine 08/07/2024 8:59 AM CDT C3 COMPLEMENT Routine 08/07/2024 8:59 AM CDT XR WRIST RIGHT 3 OR MORE VIEWS ED Urgent/IP Urgent 08/07/2024 8:55 AM CDT XR SHOULDER LEFT 2 OR MORE VIEWS ED Urgent/IP Urgent 08/07/2024 8:55 AM CDT XR HAND RIGHT 3 OR MORE VIEWS ED Urgent/IP Urgent 08/07/2024 8:55 AM CDT US UPPER EXTREMITY RIGHT LIMITED Timed 08/07/2024 8:16 AM CDT ERYTHROCYTE SEDIMENTATION RATE Routine 08/07/2024 6:05 AM CDT CRP (ACUTE PHASE) Routine 08/07/2024 6:0 5 AM CDT EGFR Routine 08/07/2024 6:05 AM CDT DIFFERENTIAL AUTO Routine 08/07/2024 6:0 5 AM CDT PHOSPHORUS Routine 08/07/2024 6:05 AM CDT MAGNESIUM Routine 08/07/2024 6:05 AM CDT BASIC METABOLIC PANEL Routine 08/07/2024 6:05 AM CDT CBC WITH AUTO DIFFERENTIAL Routine 08/07/2024 6:05 AM CDT TRANSFUSE RED BLOOD CELLS Timed 08/06/2024 8:50 PM CDT PREPARE RBC Timed 08/06/2024 8:04 PM CDT ECG 12-LEAD Routine 08/06/2024 7:36 PM CDT DIFFERENTIAL AUTO Timed 08/06/2024 6:4 5 PM CDT CBC WITH AUTO DIFFERENTIAL Timed 08/06/2024 6:45 PM CDT TRANSTHORACIC ECHO (TTE) COMPLETE W DOPPLER/CF WO CONTRAST W BUBBLE ED Urgent/IP Urgent 08/06/2024 4:54 PM CDT TRANSFUSE RED BLOOD CELLS Timed 08/06/2024 9:10 AM CDT PREPARE RBC Timed 08/06/2024 7:43 AM CDT HCG, BLOOD, QUANTITATIVE STAT 08/06/2024 6:46 AM CDT HAPTOGLOBIN STAT 08/06/2024 6:46 AM CDT APTT STAT 08/06/2024 6:46 AM CDT FIBRINOGEN STAT 08/06/2024 6:46 AM CDT PROTIME-INR STAT 08/06/2024 6:46 AM CDT LACTATE DEHYDROGENASE STAT 08/06/2024 6:46 AM CDT HEMOGLOBIN AND HEMATOCRIT STAT 08/06/2024 6:46 AM CDT EGFR Routine 08/06/2024 4:58 AM CDT OXYHEMOGLOBIN, CENTRAL VENOUS Timed 08/06/2024 4:58 AM CDT LACTATE, WHOLE BLOOD Timed 08/06/2024 4:58 AM CDT DIFFERENTIAL AUTO Routine 08/06/2024 4:5 8 AM CDT PHOSPHORUS Routine 08/06/2024 4:58 AM CDT MAGNESIUM Routine 08/06/2024 4:58 AM CDT BASIC METABOLIC PANEL Routine 08/06/2024 4:58 AM CDT CBC WITH AUTO DIFFERENTIAL Routine 08/06/2024 4:58 AM CDT TYPE AND SCREEN STAT 08/06/2024 4:58 AM CDT SEPSIS LACTATE WITH REFLEX Timed 08/06/2024 4:58 AM CDT RPR Routine 08/06/2024 4:58 AM CDT HIV 1/2 ANTIBODY PLUS P24 ANTIGEN Routine 08/06/2024 4:58 AM CDT HEPATITIS C RNA, QUANTITATIVE, PCR Routine 08/06/2024 4:58 AM CDT HEPATITIS PANEL, ACUTE Routine 4:58 AM CDT MN INSJ NON-TUNNELED CENTRAL VENOUS CATH AGE 5 YR/> Routine 08/06/2024 4:18 AM CDT Acute bacterial endocarditis Septic shock (HCC) XR CHEST 1 VIEW ED Urgent/IP Urgent 08/06/2024 3:56 AM CDT US KIDNEY COMPLETE IP Routine 08/06/2024 3: 20 AM CDT ECG 12-LEAD STAT 08/05/2024 11:21 PM CDT MN CRITICAL CARE ILL/INJURED PATIENT INIT 30-74 MIN Routine 08/05/2024 10:39 PM CDT MN ARTL CATHJ/CANNULJ MNTR/TRANSFUSION SPX PRQ Routine 08/05/2024 10:18 PM CDT POCUS OTHER 08/05/2024 10:12 PM CDT FENTANYL CONFIRMATION, MS URINE Routine 08/05/2024 9:25 PM CDT AMPHETAMINE, URINE, CONFIRMATION Routine 08/05/2024 9:25 PM CDT URINALYSIS, MICROSCOPIC ONLY STAT 08/05/2024 9:25 PM CDT DRUGS OF ABUSE SCREEN, URINE WITH REFLEX CONFIRMATION Routine 08/05/2024 9:25 PM CDT URINE CULTURE STAT 08/05/2024 9:25 PM CDT URINALYSIS AND REFLEX TO MICROSCOPIC AND CULTURE STAT 08/05/2024 9:25 PM CDT CRITICAL RESULT CALLBACK CHEMISTRY Timed 08/05/2024 8:51 PM CDT SEPSIS LACTATE WITH REFLEX Timed 08/05/2024 8:51 PM CDT CRITICAL RESULT CALLBACK CARDIO CHEM Timed 08/05/2024 7:44 PM CDT TROPONIN I HIGH-SENSITIVITY 2-HOUR Timed 08/05/2024 7:44 PM CDT EGFR STAT 08/05/2024 6:02 PM CDT DIFFERENTIAL AUTO STAT 08/05/2024 6:0 2 PM CDT ERYTHROCYTE SEDIMENTATION RATE STAT 08/05/2024 6:02 PM CDT CRP (ACUTE PHASE) STAT 08/05/2024 6:0 2 PM CDT THYROID FUNCTION CASCADE STAT 08/05/2024 6:02 PM CDT SEPSIS LACTATE WITH REFLEX STAT 08/05/2024 6:02 PM CDT TROPONIN I HIGH-SENSITIVITY SERIES (BASELINE, 2HR, 4HR, 6HR) STAT 08/05/2024 6:02 PM CDT BLOOD GAS, VENOUS STAT 08/05/2024 6:0 2 PM CDT COMPREHENSIVE METABOLIC PANEL STAT 08/05/2024 6:02 PM CDT CBC WITH AUTO DIFFERENTIAL STAT 08/05/2024 6:02 PM CDT BLOOD CULTURE STAT 08/05/2024 6:02 PM CDT BLOOD CULTURE STAT 08/05/2024 6:02 PM CDT BLOOD CULTURE STAT 08/05/2024 6:02 PM CDT [place] CRITICAL CARE ILL/INJURED PATIENT INIT 30-74 MIN Routine 08/05/2024 5:59 PM CDT ECG 12-LEAD STAT 08/05/2024 5:53 PM CDT PAP WITH REFLEX TO HIGH RISK HPV Routine 08/11/2020 12:37 PM CDT from Last 3 Months or Most Recently Relevant to Health Maintenance Results * POCT glucose (10/01/2024 1:26 PM CDT) Glucose, POC 96 70 - 199 mg/dL Blood 10/01/2024 1:26 PM CDT 10/01/2024 1:26 PM CDT us Arya Vincent MD LAB POCT ORDERABLES - DEVICE Final Result [facility] Department [place] [address] * IR Remove Tunneled CVC (10/01/2024 11:25 AM CDT) Anatomical Region Laterality Modality Body Left Radio Fluoroscop y 10/01/2024 12:0 5 PM CDT Impressions 10/01/2024 12:05 PM CDT Successful removal of the tunneled power line. Right chest Duraflow catheter remains in place. PLAN: The dressing should be left in place for 24 hrs. After that, please change dressing according to Duraflow catheter protocol. Electronically signed by: Kendra Polanco PA-C Narrative 10/01/2024 12:05 PM CDT EXAMINATION: REMOVAL OF A TUNNELED CENTRAL VENOUS CATHETER (STD) HISTORY: This is a 29-year-old female with tricuspid valve endocarditis with MRSA bacteremia, who had a tunneled central line placed on 08/23/24 for antibiotics. She has completed treatment and no longer needs the power line. Of note, patient has severe MARIELENA requiring long-term hemodialysis via right chest Duraflow catheter, which was also placed on 08/23/24. PROVIDER PRESENCE: Kendra Polanco PA-C, was present from the beginning to the end of the procedure. SEDATION: The patient did not require conscious sedation. TECHNIQUE: Prior to beginning the procedure, Heyburn Protocol was used to confirm the patient's identity and planned procedure. Maximum sterile barriers including cap, mask, hand hygiene, sterile gloves, sterile gown, large sterile drape and 2% chlorhexidine for cutaneous antisepsis were used. The skin adjacent to the right catheter entry site was sterilely prepped, draped and infiltrated with 1% lidocaine. A combination of sharp and blunt dissection was then used to free the tunneled power line catheter cuff. The catheter was then removed and pressure held at the site to obtain hemostasis. A sterile dressing was then applied. ESTIMATED BLOOD LOSS: Minimal. CONDITION: Stable DISCHARGED TO: home FINDINGS: The catheter exit site showed no evidence of infection. Procedure Note Kendra Polanco PA - 10/01/2024 EXAMINATION: REMOVAL OF A TUNNELED CENTRAL VENOUS CATHETER (STD) HISTORY: This is a 29-year-old female with tricuspid valve endocarditis with MRSA bacteremia, who had a tunneled central line placed on 08/23/24 for antibiotics. She has completed treatment and no longer needs the power line. Of note, patient has severe MARIELENA requiring long-term hemodialysis via right chest Duraflow catheter, which was also placed on 08/23/24. PROVIDER PRESENCE: Kendra Polanco PA-C, was present from the beginning to the end of the procedure. SEDATION: The patient did not require conscious sedation. TECHNIQUE: Prior to beginning the procedure, Heyburn Protocol was used to confirm the patient's identity and planned procedure. Maximum sterile barriers including cap, mask, hand hygiene, sterile gloves, sterile gown, large sterile drape and 2% chlorhexidine for cutaneous antisepsis were used. The skin adjacent to the right catheter entry site was sterilely prepped, draped and infiltrated with 1% lidocaine. A combination of sharp and blunt dissection was then used to free the tunneled power line catheter cuff. The catheter was then removed and pressure held at the site to obtain hemostasis. A sterile dressing was then applied. ESTIMATED BLOOD LOSS: Minimal. CONDITION: Stable DISCHARGED TO: home FINDINGS: The catheter exit site showed no evidence of infection. IMPRESSION: Successful removal of the tunneled power line. Right chest Duraflow catheter remains in place. PLAN: The dressing should be left in place for 24 hrs. After that, please change dressing according to Duraflow catheter protocol. Electronically signed by: Kendra Polanco PA-C us Arya Vincent MD IMG IR PROCEDURES Final Resu lt * POCT glucose (10/01/2024 7:31 AM CDT) Glucose, POC 95 70 - 199 mg/dL Blood 10/01/2024 7:31 AM CDT 10/01/2024 7:31 AM CDT Arya Vincent MD LAB POCT ORDERABLES - DEVICE Final Result Performing Organization Address [facility] de Phone Number [facility] [place] [address] * POCT glucose (10/01/2024 6:34 AM CDT) Glucose, POC 120 70 - 199 mg/dL Blood 10/01/2024 6:34 AM CDT 10/01/2024 6:34 AM CDT Arya Vincent MD LAB POCT ORDERABLES - DEVICE Final Result Performing Organization Address [facility] de Phone Number [facility] [place] [address] * POCT glucose (09/30/2024 9:11 PM CDT) [facility] Glucose, POC 116 70 - 199 mg/dL Blood 09/30/2024 9:11 PM CDT 09/30/2024 9:11 PM CDT Arya Vincent MD LAB POCT ORDERABLES - DEVICE Final Result Performing Organization Address [facility] de Phone Number [facility] [place] [address] * (ABNORMAL) eGFR (09/30/2024 7:49 PM CDT) [facility] eGFR 15(L) >=60 mL/min/1. 73 m2 Comment: Interpretive Data Reference Interval Normal >/= 90 mL/min/1.73m2 Mildly decreased* 60 - 89 mL/min/1.73m2 Mildly to moderately decreased 45 - 59 mL/min/1.73m2 Moderately to severely decreased 30 - 44 mL/min/1.73m2 Severely decreased 15 - 29 mL/min/1.73m2 Kidney Failure < 15 mL/min/1.73m2 *Relative to young adult level Estimated glomerular filtration rate is determined by the 2020 CKD-EPI equation recommended by the National Kid[employer] (A Unifying Approach to GFR Estimation: Recommendations of the NKF-ASK Task Force on Reassessing the Inclusion of Race in Diagnosing Kidney Disease, JASN 2020). The CKD-EPI equation should not be used for patients with unstable renal function and has not been validated in children and those over 70. Current interpretive data was last reviewed 2021. Blood 09/30/2024 7:49 PM CDT 09/30/2024 8:16 PM CDT us Kirk Gaming MD LAB BLOOD ORDERABLES F inal Result [facility] Department [place] [address] * (ABNORMAL) Differential, auto (09/30/2024 7:49 PM CDT) Pathologist [facility] Neutrophil abs 5.97 1.50 - 6.50 K/cumm Imm gran abs 0.07 0.00 - 0.10 K/cumm [facility] Lymphocyte abs 2.76 0.80 - 3.30 K/cumm [facility] Monocyte abs 0.98(H) 0.20 - 0.80 K/cumm [facility] Eosinophil abs 0.18 0.00 - 0.50 K/cumm [facility] Basophil abs 0.05 0.00 - 0.10 K/cumm [facility] Neutrophil pct 59.6 % [facility] Comment: Interpretive Data Percent cell count reference ranges are not reported, since discordance with absolute values may lead to misinterpretation of CBC data. Current Interpretive Data was last revised on 2017. Imm gran pct 0.7 % [facility] Comment: Interpretive Data Percent cell count reference ranges are not reported, since discordance with absolute values may lead to misinterpretation of CBC data. Current Interpretive Data was last revised on 2017. Lymphocyte pct 27.6 % [facility] Comment: Interpretive Data Percent cell count reference ranges are not reported, since discordance with absolute values may lead to misinterpretation of CBC data. Current Interpretive Data was last revised on 2017. Monocyte pct 9.8 % [facility] Comment: Interpretive Data Percent cell count reference ranges are not reported, since discordance with absolute values may lead to misinterpretation of CBC data. Current Interpretive Data was last revised on 2017. Eosinophil pct 1.8 % [facility] Comment: Interpretive Data Percent cell count reference ranges are not reported, since discordance with absolute values may lead to misinterpretation of CBC data. Current Interpretive Data was last revised on 2017. Basophil pct 0.5 % [facility] Comment: Interpretive Data Percent cell count reference ranges are not reported, since discordance with absolute values may lead to misinterpretation of CBC data. Current Interpretive Data was last revised on 2017. Blood 09/30/2024 7:49 PM CDT 09/30/2024 8:16 PM CDT Elizabet Dickey MD LAB BLOOD ORDERABLES F inal Result [facility] Department [place] [address] * (ABNORMAL) CBC with auto differential (09/30/2024 7:49 PM CDT) WBC 10.01(H) 3.80 - 9.90 K/cumm Hgb 7.8(L) 11.9 - 15.5 g/dL [facility] Hct 24.8(L) 35.6 - 45.5 % [facility] Plt 302 150 - 400 K/cumm [facility] MPV 10.6 9.1 - 12.3 fL [facility] RBC 2.82(L) 3.90 - 5.20 M/cumm [facility] MCV 87.9 81.3 - 96.4 fL [facility] MCH 27.7 27.1 - 33.3 pg [facility] MCHC 31.5(L) 32.3 - 35.7 g/dL [facility] RDW CV 16.9(H) 11.1 - 14.9 % [facility] RDW SD 54.2(H) 35.7 - 48.1 fL [facility] NRBC abs 0.00 0.00 - 0.01 K/cumm [facility] Blood 09/30/2024 7:49 PM CDT 09/30/2024 8:16 PM CDT Elizabte Dickey MD LAB BLOOD ORDERABLES F inal Result Performing Organization Address [facility] Co de Phone Number [facility] [place] [address] * (ABNORMAL) Phosphorus (09/30/2024 7:49 PM CDT) Phosphorus, pl 1.8(L) 2.3 - 4.5 mg/dL Blood 09/30/2024 7:49 PM CDT 09/30/2024 8:16 PM CDT Kirk Gaming MD LAB BLOOD ORDERABLES F inal Result Performing Organization Address [facility] Co de Phone Number [facility] [place] [address] * Bilirubin, direct (09/30/2024 7:49 PM CDT) Bilirubin, direct 0.2 0.1 - 0.3 mg/dL Comment:Reviewed Blood 09/30/2024 7:49 PM CDT 09/30/2024 8:16 PM CDT Kirk Gaming MD LAB BLOOD ORDERABLES F inal Result Performing Organization Address [facility] Co de Phone Number [facility] [place] [address] * (ABNORMAL) Comprehensive metabolic panel (09/30/2024 7:49 PM CDT) Sodium 134(L) 135 - 145 mmol/L Potassium, pl 3.7 3.3 - 4.9 mmol/L [facility] Chloride 98 97 - 110 mmol/L [facility] CO2 30 22 - 32 mmol/L [facility] Anion gap 6 2 - 15 mmol/L [facility] BUN 16 6 - 25 mg/dL [facility] Creatinine 3.93(H) 0.60 - 1.10 mg/dL [facility] Glucose 82 70 - 199 mg/dL [facility] Comment: Interpretive Data Fasting glucose >/= 126 mg/dl is diagnostic for diabetes. Fasting is defined as no caloric intake for at least 8 hours. Fasting glucose between 100 mg/dl to 125 mg/dl is diagnostic of prediabetes. In a patient with classic symptoms of hyperglycemia or hyperglycemic crisis, a random glucose >/= 200 mg/dl is diagnostic for diabetes. In the absence of unequivocal hyperglycemia, results should be confirmed by repeat testing. The classification and Diagnosis of Diabetes Diabetes Care 202; 46: S19-S40. Current interpretive data was last revised 2022. Calcium 7.9(L) 8.5 - 10.3 mg/dL [facility] Bilirubin, total 0.5 0.1 - 1.2 mg/dL [facility] Protein, pl 7.6 6.5 - 8.5 g/dL [facility] Albumin 2.1(L) 3.5 - 5.0 g/dL [facility] Alk phos 101 40 - 130 Units/L [facility] ALT 5(L) 7 - 45 Units/L [facility] AST 9(L) 10 - 45 Units/L [facility] Blood 09/30/2024 7:49 PM CDT 09/30/2024 8:16 PM CDT us Kirk Gaming MD LAB BLOOD ORDERABLES F inal Result [facility] Department [place] [address] * POCT glucose (09/30/2024 5:42 PM CDT) Glucose, POC 117 70 - 199 mg/dL Blood 09/30/2024 5:42 PM CDT 09/30/2024 5:42 PM CDT Arya Vincent MD LAB POCT ORDERABLES - DEVICE Final Result Performing Organization Address [facility] [place] [address] * POCT glucose (09/30/2024 11:30 AM CDT) Glucose, POC 80 70 - 199 mg/dL Blood 09/30/2024 11:3 0 AM CDT 09/30/2024 11:30 AM CDT Arya Vincent MD LAB POCT ORDERABLES - DEVICE Final Result Performing Organization Address [facility] [place] [address] * POCT glucose (09/30/2024 9:31 AM CDT) Glucose, POC 71 70 - 199 mg/dL Blood 09/30/2024 9:31 AM CDT 09/30/2024 9:31 AM CDT Arya Vincent MD LAB POCT ORDERABLES - DEVICE Final Result Performing Organization Address [facility] [place] [address] * POCT glucose (09/30/2024 6:51 AM CDT) Glucose, POC 77 70 - 199 mg/dL Blood 09/30/2024 6:51 AM CDT 09/30/2024 6:51 AM CDT Arya Vincent MD LAB POCT ORDERABLES - DEVICE Final Result Performing Organization Address [facility] Co de Phone Number [facility] [place] [address] * POCT glucose (09/29/2024 7:48 PM CDT) Glucose, POC 130 70 - 199 mg/dL Blood 09/29/2024 7:48 PM CDT 09/29/2024 7:48 PM CDT us Arya Vincent MD LAB POCT ORDERABLES - DEVICE Final Result Performing Organization Address [facility] de Phone Number [facility] [place] [address] * POCT glucose (09/29/2024 5:00 PM CDT) Glucose, POC 111 70 - 199 mg/dL Blood 09/29/2024 5:00 PM CDT 09/29/2024 5:00 PM CDT us Arya Vincent MD LAB POCT ORDERABLES - DEVICE Final Result Performing Organization Address [facility] de Phone Number [facility] [place] [address] * POCT glucose (09/29/2024 11:43 AM CDT) Glucose, POC 77 70 - 199 mg/dL Blood 09/29/2024 11:4 3 AM CDT 09/29/2024 11:43 AM CDT Arya Vincent MD LAB POCT ORDERABLES - DEVICE Final Result Performing Organization Address [facility] Co de Phone Number [facility] [place] [address] * POCT glucose (09/29/2024 9:22 AM CDT) Glucose, POC 94 70 - 199 mg/dL Blood 09/29/2024 9:22 AM CDT 09/29/2024 9:22 AM CDT Arya Vincent MD LAB POCT ORDERABLES - DEVICE Final Result Performing Organization Address [facility] Co de Phone Number [facility] [place] [address] * POCT glucose (09/28/2024 11:42 PM CDT) [facility] Glucose, POC 77 70 - 199 mg/dL Blood 09/28/2024 11:4 2 PM CDT 09/28/2024 11:42 PM CDT Arya Vincent MD LAB POCT ORDERABLES - DEVICE Final Result Performing Organization Address [facility] de Phone Number [facility] Department [place] [address] * (ABNORMAL) Trichomonas vaginalis PCR Vaginal (09/28/2024 5:40 PM CDT) [facility] Trichomonas DNA Detected( A) Not Detected [facility] Vaginal 09/28/2024 5:40 PM CDT 09/28/2024 6:59 PM CDT Narrative [facility] - 09/28/2024 8:44 PM CDT Interpretive Data: This assay detects Trichomonas vaginalis by nucleic acid amplification testing (NAAT). This assay has been cleared by the [place] Food and Drug administration. The performance characteristics of this test have been verified by the [facility] Molecular Infectious Disease laboratory. Excess blood in specimens may be inhibitory and result in false negative results. The performance of this test has not been evaluated in women or individuals less than 18 years of age. Arya Vincent MD LAB MICROBIOLOGY - GENERAL O RDERABLES Final Result Performing Organization Address [facility] Co de Phone Number [facility] [place] [address] [facility] * POCT glucose (09/28/2024 5:04 PM CDT) Glucose, POC 128 70 - 199 mg/dL Blood 09/28/2024 5:04 PM CDT 09/28/2024 5:04 PM CDT Result [facility] Arya Vincent MD LAB POCT ORDERABLES - DEVICE Final Result Performing Organization Address [facility] [place] [place] [address] * N. gonorrhoeae/C. trachomatis Amplification Urine (09/28/2024 3:02 PM CDT) [facility] C. trachomatis Not Detected Not Detected [facility] N. gonorrhoeae Not Detected Not Detected [facility] Comment: Interpretive Data This assay detects Chlamydia trachomatis and Neisseria gonorrhoeae by nucleic acid amplification testing (NAAT). This assay has been cleared by the [place] Food and Drug administration. The performance characteristics of this test have been verified by the [facility] Molecular Infectious Disease laboratory. The performance characteristics of this test have not been evaluated in individuals less than 14 years of age. Current Interpretive Data last revised 2023. Urine (None) 09/28/2024 3:02 PM CDT 09/28/2024 3:58 PM CDT Arya Vincent MD LAB MICROBIOLOGY - GENERAL O RDERABLES Final Result Performing Organization Address [facility] [place] [address] [facility] * Drugs of Abuse Screen, Urine with Reflex Confirmation (09/28/2024 3:02 PM CDT) [facility] Amphetamine, ur Not Detected [facility] 500ng/mL Comment: Interpretive Data - Amphetamines: Samples containing greater than 500 ng/mL d-methamphetamine or other cross-reacting amphetamine compounds are reported as positive. Amphetamine immunoassays are subject to significant false positive rates due to cross-reactivity of non-amphetamine drugs. Confirmatory testing required for definitive results. Current Interpretive Data was last reviewed 2022. Barbiturates, ur Not Detected CutOff 200ng/mL [facility] Comment: Interpretive Data - Barbiturates: Samples containing greater than 200 ng/mL secobarbital or other cross-reacting barbiturate compounds are reported as positive. False positive and false negative results are possible. Confirmatory testing required for definitive results. Current Interpretive Data was last reviewed 2022. Benzodiazepines, ur Not Detected CutOff 100ng/mL [facility] Comment: Interpretive Data - Benzodiazepines: Samples containing greater than 100 ng/mL nordiazepam or other cross-reacting compounds are reported as positive. False positive and false negative results are possible. Confirmatory testing required for definitive results. Current Interpretive Data was last reviewed 2022. Cannabinoids, ur Not Detected CutOff 50 ng/mL [facility] Comment: Interpretive Data - Cannabinoids: Samples containing greater than 50 ng/mL delta-9 THC -COOH or other cross- reacting compounds are reported as positive. False positive and false negative results are possible. Confirmatory testing required for definitive results. Current Interpretive Data was last reviewed 2022. Cocaine, ur Not Detected CutOff 150ng/mL [facility] Comment: Interpretive Data - Cocaine: Samples containing greater than 150 ng/mL benzoylecgonine or other cross- reacting compounds are reported as positive. False positive and false negative results are possible. Confirmatory testing required for definitive results. Current Interpretive Data was last reviewed 2022. Fentanyl, Ur Not Detected CutOff 5 ng/mL [facility] Comment: Interpretive Data - Fentanyl: Samples containing greater than 5 ng/mL norfentanyl, fentanyl, or other cross-reacting fentanyl compounds are reported as positive. False positive and false negative results are possible. Confirmatory testing required for definitive results. Current Interpretive Data was last reviewed 2023. Methadone, ur Not Detected CutOff 300ng/mL [employer] [facility] [employer] [facility] Comment: Interpretive Data - Methadone: Samples containing greater than 300 ng/mL d,l-methadone or other cross-reacting compounds are reported as positive. False positive and false negative results are possible. Confirmatory testing required for definitive results. Current Interpretive Data was last reviewed 2022. Opiates, ur Not Detected CutOff 300ng/mL [facility] Comment: Interpretive Data - Opiates: Samples containing greater than 300 ng/mL morphine or other cross-reacting compounds are reported as positive. False positive and false negative results are possible. Confirmatory testing required for definitive results. Current Interpretive Data was last reviewed 2022. Oxycodone, ur Not Detected CutOff 100ng/mL [facility] Comment: Interpretive Data - Oxycodone: Samples containing greater than 100 ng/mL oxycodone or other cross-reacting compounds are reported as positive. False positive and false negative results are possible. Confirmatory testing required for definitive results. Current Interpretive Data was last reviewed 2022. Phencyclidine, ur Not Detected CutOff 25 ng/mL [employer] [facility] [facility] Comment: Interpretive Data - Phencyclidine: Samples containing greater than 25 ng/mL phencyclidine or other cross-reacting compounds are reported as positive. False positive and false negative results are possible. Confirmatory testing required for definitive results. Current Interpretive Data was last reviewed 2022. Urine Creatinine 20 mg/dL [employer] [facility] [facility] Comment: Interpretive Data Urine Creatinine: < 10 mg/dL is extremely dilute = or > 10 but < 20 mg/dL is dilute = or > 20 mg/dL is normal Current Interpretive Data was last revised on 2017. Urine 09/28/2024 3:02 PM CDT 09/28/2024 4:20 PM CDT Narrative [employer] [facility] [employer] [facility] [facility] [facility] - 09/28/2024 5:19 PM CDT Drug of Abuse screening is performed by immunoassay for medical purposes only. This is not to be used for Pain Management purposes. If Detected, confirmation testing will be performed for Amphetamines, Cocaine, Fentanyl, Methadone, Opiates, Oxycodone or Phencyclidine. Arya Vincent MD LAB URINE ORDERABLES Final R esult Performing Organization Address [facility] Co de Phone Number [facility] [place] [address] * POCT glucose (09/28/2024 11:51 AM CDT) [facility] Glucose, POC 82 70 - 199 mg/dL Blood 09/28/2024 11:5 1 AM CDT 09/28/2024 11:51 AM CDT Arya Vincent MD LAB POCT ORDERABLES - DEVICE Final Result Performing Organization Address [facility] de Phone Number [employer] [facility] [place] [address] * Reflex Hepatitis C RNA, Quantitative (09/28/2024 11:04 AM CDT) [facility] HCV RNA result Not Detected [facility] Comment: The quantifiable range of this assay is 15 IU/mL to 100,000,000 IU/mL (1.18 log IU/mL to 8.00 log IU/mL). Testing was performed by the PRAMOD [id number] HCV Test ([employer] Testing performed at [facility] Current Interpretive Data was last revised on 2020 Blood 09/28/2024 11:0 4 AM CDT 09/29/2024 1:59 PM CDT Arya Vincent MD LAB BLOOD ORDERABLES Final R esult Performing Organization Address [facility] Co de Phone Number [facility] [place] [address] [facility] * HIV 1/2 Antibody plus p24 Antigen Blood (09/28/2024 11:04 AM CDT) [facility] HIV 1/2 ab + p24 ag Nonreactive Nonreactive Comment:Nonreactive for HIV- 1 antigen and HIV-1/HIV-2 antibodies. No laboratory evidence of HIV infection. If acute HIV infection is suspected, consider testing for HIV-1 RNA. Current interpretive data was last revised on 21. Blood 09/28/2024 11:0 4 AM CDT 09/28/2024 12:28 PM CDT Arya Vincent MD LAB MICROBIOLOGY - GENERAL O RDERABLES Final Result Performing Organization Address [facility] Co de Phone Number [facility] [place] [address] * (ABNORMAL) Hepatitis C antibody Blood (09/28/2024 11:04 AM CDT) Hep C Ab Reactive( A) Nonreactive Comment: Reactive for HCV antibodies. This may represent current or past HCV infection. Supplemental molecular testing will be automatically performed to determine current infection status in accordance with current CDC screening recommendations. Current interpretive data was last revised on 21 Blood 09/28/2024 11:0 4 AM CDT 09/28/2024 12:28 PM CDT Arya Vincent MD LAB MICROBIOLOGY - GENERAL O RDERABLES Final Result Performing Organization Address [facility] Co de Phone Number [facility] [place] [address] * (ABNORMAL) Hepatitis A antibody, total Blood (09/28/2024 11:04 AM CDT) Hep A total Reactive(A ) Nonreactive Blood 09/28/2024 11:0 4 AM CDT 09/28/2024 12:28 PM CDT Arya Vincent MD LAB MICROBIOLOGY - GENERAL O RDERABLES Final Result Performing Organization Address [facility]/ZIP Co de Phone Number [facility] [place] [address] * Hepatitis B core antibody, total Blood (09/28/2024 11:04 AM CDT) Pathologist [facility] Hep B core IgG/IgM Nonreactive Nonreactive Blood 09/28/2024 11:0 4 AM CDT 09/28/2024 12:28 PM CDT Arya Vincent MD LAB MICROBIOLOGY - GENERAL O RDERABLES Final Result Performing Organization Address [facility]/ZIP Co de Phone Number [facility] [place] [address] * RPR Blood (09/28/2024 11:04 AM CDT) Pathologist [facility] RPR Nonreactive Nonreactive Blood 09/28/2024 11:0 4 AM CDT 09/28/2024 11:55 AM CDT Arya Vincent MD LAB MICROBIOLOGY - GENERAL O RDERABLES Final Result Performing Organization Address [facility] Co de Phone Number [facility] Department [place] [address] * Hepatitis B surface antibody (immune status) Blood (09/28/2024 11:04 AM CDT) Pathologist [facility] HBsAb (immune status) Reactive Comment:This result is consi stent with immunity to Hepatitis B Virus when used in the setting of routine screening. Current interpretive data was last revised on 21 HBsAb (immune status) index 281.0 mIUnits/m L [facility] Blood 09/28/2024 11:0 4 AM CDT 09/28/2024 12:28 PM CDT Arya Vincent MD LAB MICROBIOLOGY - GENERAL O RDERABLES Final Result Performing Organization Address [facility]/ZIP Co de Phone Number [facility] Department [place] [address] * Hepatitis B Surface Antigen Blood (09/28/2024 11:04 AM CDT) [facility] HepBsAg Nonreactive Nonreactive Blood 09/28/2024 11:0 4 AM CDT 09/28/2024 12:28 PM CDT us Arya Vincent MD LAB MICROBIOLOGY - GENERAL O RDERABLES Final Result Performing Organization Address [facility]/ZIP Co de Phone Number [facility] [place] [address] * POCT glucose (09/28/2024 7:52 AM CDT) [facility] Glucose, POC 80 70 - 199 mg/dL Blood 09/28/2024 7:52 AM CDT 09/28/2024 7:52 AM CDT us Arya Vincent MD LAB POCT ORDERABLES - DEVICE Final Result Performing Organization Address [facility] Co de Phone Number [facility] Department [place] [address] * (ABNORMAL) eGFR (09/27/2024 10:15 PM CDT) [facility] eGFR 19(L) >=60 mL/min/1. 73 m2 Comment: Interpretive Data Reference Interval Normal >/= 90 mL/min/1.73m2 Mildly decreased* 60 - 89 mL/min/1.73m2 Mildly to moderately decreased 45 - 59 mL/min/1.73m2 Moderately to severely decreased 30 - 44 mL/min/1.73m2 Severely decreased 15 - 29 mL/min/1.73m2 Kidney Failure < 15 mL/min/1.73m2 *Relative to young adult level Estimated glomerular filtration rate is determined by the 2020 CKD-EPI equation recommended by the National Kidney Foundation (A Unifying Approach to GFR Estimation: Recommendations of the NKF-ASK Task Force on Reassessing the Inclusion of Race in Diagnosing Kidney Disease, TERISN 2020). The CKD-EPI equation should not be used for patients with unstable renal function and has not been validated in children and those over 70. Current interpretive data was last reviewed 2021. Blood 09/27/2024 10:1 5 PM CDT 09/27/2024 10:45 PM CDT us Kirk Gaming MD LAB BLOOD ORDERABLES F inal Result [facility] Department [place] [address] * (ABNORMAL) Renal function panel (09/27/2024 10:15 PM CDT) Sodium 135 135 - 145 mmol/L Potassium, pl 3.8 3.3 - 4.9 mmol/L [facility] Chloride 98 97 - 110 mmol/L [facility] CO2 30 22 - 32 mmol/L [facility] Anion gap 7 2 - 15 mmol/L [facility] BUN 14 6 - 25 mg/dL [facility] Creatinine 3.27(H) 0.60 - 1.10 mg/dL [facility] Glucose 86 70 - 199 mg/dL [facility] Comment: Interpretive Data Fasting glucose >/= 126 mg/dl is diagnostic for diabetes. Fasting is defined as no caloric intake for at least 8 hours. Fasting glucose between 100 mg/dl to 125 mg/dl is diagnostic of prediabetes. In a patient with classic symptoms of hyperglycemia or hyperglycemic crisis, a random glucose >/= 200 mg/dl is diagnostic for diabetes. In the absence of unequivocal hyperglycemia, results should be confirmed by repeat testing. The classification and Diagnosis of Diabetes Diabetes Care 202; 46: S19-S40. Current interpretive data was last revised 2022. Calcium 7.7(L) 8.5 - 10.3 mg/dL [facility] Phosphorus, pl 1.7(L) 2.3 - 4.5 mg/dL [facility] Albumin 2.1(L) 3.5 - 5.0 g/dL [facility] Blood 09/27/2024 10:1 5 PM CDT 09/27/2024 10:45 PM CDT us Kirk Gamnig MD LAB BLOOD ORDERABLES F inal Result Performing Organization Address [facility] de Phone Number [facility] [place] [address] * POCT glucose (09/27/2024 9:07 PM CDT) Glucose, POC 103 70 - 199 mg/dL Blood 09/27/2024 9:07 PM CDT 09/27/2024 9:07 PM CDT us Arya Vincent MD LAB POCT ORDERABLES - DEVICE Final Result Performing Organization Address [facility] de Phone Number [facility] [place] [address] * POCT glucose (09/27/2024 5:26 PM CDT) Glucose, POC 124 70 - 199 mg/dL Blood 09/27/2024 5:26 PM CDT 09/27/2024 5:26 PM CDT us Arya Vincent MD LAB POCT ORDERABLES - DEVICE Final Result Performing Organization Address [facility] de Phone Number [facility] [place] [address] * POCT glucose (09/27/2024 12:43 PM CDT) Glucose, POC 70 70 - 199 mg/dL Blood 09/27/2024 12:4 3 PM CDT 09/27/2024 12:43 PM CDT us Arya Vincent MD LAB POCT ORDERABLES - DEVICE Final Result [facility] [place] [address] * Post Dialysis BUN (09/27/2024 12:11 PM CDT) BUN Post 7 6 - 25 mg/dL Blood 09/27/2024 12:1 1 PM CDT 09/27/2024 12:24 PM CDT Tarik Damon MD LAB BLOOD ORDERABLES Final Result Performing Organization Address [facility] Co de Phone Number [facility] [place] [address] * POCT glucose (09/27/2024 11:01 AM CDT) Glucose, POC 91 70 - 199 mg/dL Blood 09/27/2024 11:0 1 AM CDT 09/27/2024 11:01 AM CDT us Arya Vincent MD LAB POCT ORDERABLES - DEVICE Final Result Performing Organization Address [facility]/ZIP Co de Phone Number [facility] [place] [address] * POCT glucose (09/27/2024 10:07 AM CDT) Glucose, POC 73 70 - 199 mg/dL Blood 09/27/2024 10:0 7 AM CDT 09/27/2024 10:07 AM CDT Arya Vincent MD LAB POCT ORDERABLES - DEVICE Final Result Performing Organization Address [facility]/ZIP Co de Phone Number [facility] [place] [address] * Pre Dialysis BUN (09/27/2024 8:32 AM CDT) BUN Pre 22 6 - 25 mg/dL Blood 09/27/2024 8:32 AM CDT 09/27/2024 8:51 AM CDT Tarik Damon MD LAB BLOOD ORDERABLES Final Result [facility] [place] [address] * Hepatitis B Surface Antigen Blood (09/27/2024 8:32 AM CDT) HepBsAg Nonreactive Nonreactive Blood 09/27/2024 8:32 AM CDT 09/27/2024 8:51 AM CDT Tarik Damon MD LAB MICROBIOLOGY - GE NERAL ORDERABLES Final Result Performing Organization Address [facility]/ZIP Co de Phone Number [facility] [place] [address] * POCT glucose (09/27/2024 7:34 AM CDT) Glucose, POC 71 70 - 199 mg/dL Blood 09/27/2024 7:34 AM CDT 09/27/2024 7:34 AM CDT Arya Vincent MD LAB POCT ORDERABLES - DEVICE Final Result [facility] [place] [address] * POCT glucose (09/26/2024 9:35 PM CDT) Glucose, POC 75 70 - 199 mg/dL Blood 09/26/2024 9:35 PM CDT 09/26/2024 9:35 PM CDT Arya Vincent MD LAB POCT ORDERABLES - DEVICE Final Result Performing Organization Address [facility] Co de Phone Number [facility] [place] [address] * POCT glucose (09/26/2024 6:22 PM CDT) Glucose, POC 83 70 - 199 mg/dL Blood 09/26/2024 6:22 PM CDT 09/26/2024 6:22 PM CDT us Arya Vincent MD LAB POCT ORDERABLES - DEVICE Final Result Performing Organization Address [facility] Co de Phone Number [facility] [place] [address] * POCT glucose (09/26/2024 1:11 PM CDT) Glucose, POC 75 70 - 199 mg/dL Blood 09/26/2024 1:11 PM CDT 09/26/2024 1:11 PM CDT Arya Vincent MD LAB POCT ORDERABLES - DEVICE Final Result Performing Organization Address [facility] Co de Phone Number [facility] Department [place] [address] * POCT glucose (09/26/2024 9:17 AM CDT) Glucose, POC 89 70 - 199 mg/dL Blood 09/26/2024 9:17 AM CDT 09/26/2024 9:17 AM CDT Arya Vincent MD LAB POCT ORDERABLES - DEVICE Final Result Performing Organization Address [facility] Co de Phone Number [facility] [place] [address] * (ABNORMAL) POCT glucose (09/26/2024 8:47 AM CDT) Pathologist [facility] Glucose, POC 69(L) 70 - 199 mg/dL Blood 09/26/2024 8:47 AM CDT 09/26/2024 8:47 AM CDT us Arya Vincent MD LAB POCT ORDERABLES - DEVICE Final Result Performing Organization Address [facility]/ZIP Co de Phone Number [facility] [place] [address] * (ABNORMAL) eGFR (09/25/2024 9:54 PM CDT) [facility] eGFR 14(L) >=60 mL/min/1. 73 m2 Comment: Interpretive Data Reference Interval Normal >/= 90 mL/min/1.73m2 Mildly decreased* 60 - 89 mL/min/1.73m2 Mildly to moderately decreased 45 - 59 mL/min/1.73m2 Moderately to severely decreased 30 - 44 mL/min/1.73m2 Severely decreased 15 - 29 mL/min/1.73m2 Kidney Failure < 15 mL/min/1.73m2 *Relative to young adult level Estimated glomerular filtration rate is determined by the 2020 CKD-EPI equation recommended by the National Kidney Foundation (A Unifying Approach to GFR Estimation: Recommendations of the NKF-ASK Task Force on Reassessing the Inclusion of Race in Diagnosing Kidney Disease, JASN 2020). The CKD-EPI equation should not be used for patients with unstable renal function and has not been validated in children and those over 70. Current interpretive data was last reviewed 2021. Blood 09/25/2024 9:54 PM CDT 09/25/2024 11:04 PM CDT us Kirk Gaming MD LAB BLOOD ORDERABLES F inal Result [facility] Department [place] [address] * (ABNORMAL) Renal function panel (09/25/2024 9:54 PM CDT) [facility] Sodium 134(L) 135 - 145 mmol/L Potassium, pl 4.3 3.3 - 4.9 mmol/L [facility] Chloride 99 97 - 110 mmol/L [facility] CO2 29 22 - 32 mmol/L [facility] Anion gap 6 2 - 15 mmol/L [facility] BUN 19 6 - 25 mg/dL [facility] Creatinine 4.22(H) 0.60 - 1.10 mg/dL [facility] Glucose 71 70 - 199 mg/dL [facility] Comment: Interpretive Data Fasting glucose >/= 126 mg/dl is diagnostic for diabetes. Fasting is defined as no caloric intake for at least 8 hours. Fasting glucose between 100 mg/dl to 125 mg/dl is diagnostic of prediabetes. In a patient with classic symptoms of hyperglycemia or hyperglycemic crisis, a random glucose >/= 200 mg/dl is diagnostic for diabetes. In the absence of unequivocal hyperglycemia, results should be confirmed by repeat testing. The classification and Diagnosis of Diabetes Diabetes Care 2021; 46: S19-S40. Current interpretive data was last revised 2022. Calcium 8.1(L) 8.5 - 10.3 mg/dL [facility] Phosphorus, pl 2.8 2.3 - 4.5 mg/dL [facility] Albumin 2.1(L) 3.5 - 5.0 g/dL [facility] Blood 09/25/2024 9:54 PM CDT 09/25/2024 11:04 PM CDT us Kirk Gaming MD LAB BLOOD ORDERABLES F inal Result [facility] Department [place] [address] * POCT glucose (09/25/2024 8:15 PM CDT) [facility] Glucose, POC 93 70 - 199 mg/dL Blood 09/25/2024 8:15 PM CDT 09/25/2024 8:15 PM CDT Arya Vincent MD LAB POCT ORDERABLES - DEVICE Final Result Performing Organization Address [facility] Co de Phone Number [facility] [place] [address] * POCT glucose (09/25/2024 6:12 PM CDT) Glucose, POC 92 70 - 199 mg/dL Comment:Glu2: RN/MD Notified Glucose comment 1 Glu2: RN/MD Notified [facility] Blood 09/25/2024 6:12 PM CDT 09/25/2024 6:12 PM CDT Arya Vincent MD LAB POCT ORDERABLES - DEVICE Final Result Performing Organization Address [facility] [place] [address] * POCT glucose (09/25/2024 5:17 PM CDT) Glucose, POC 85 70 - 199 mg/dL Blood 09/25/2024 5:17 PM CDT 09/25/2024 5:17 PM CDT Arya Vincent MD LAB POCT ORDERABLES - DEVICE Final Result Performing Organization Address [facility] [place] [address] * POCT glucose (09/25/2024 12:27 PM CDT) Glucose, POC 79 70 - 199 mg/dL Blood 09/25/2024 12:2 7 PM CDT 09/25/2024 12:27 PM CDT us Arya Vincent MD LAB POCT ORDERABLES - DEVICE Final Result Performing Organization Address [facility] [place] [address] * POCT glucose (09/25/2024 7:43 AM CDT) Glucose, POC 76 70 - 199 mg/dL Comment:Glu2: RN/MD Notified Glucose comment 1 Glu2: RN/MD Notified [facility] Blood 09/25/2024 7:43 AM CDT 09/25/2024 7:43 AM CDT us Arya Vincent MD LAB POCT ORDERABLES - DEVICE Final Result Performing Organization Address [facility] de Phone Number [facility] [place] [address] * POCT glucose (09/25/2024 3:34 AM CDT) Glucose, POC 78 70 - 199 mg/dL Blood 09/25/2024 3:34 AM CDT 09/25/2024 3:34 AM CDT us Arya Vincent MD LAB POCT ORDERABLES - DEVICE Final Result Performing Organization Address [facility] [place] [address] * POCT glucose (09/24/2024 9:42 PM CDT) Glucose, POC 83 70 - 199 mg/dL Blood 09/24/2024 9:42 PM CDT 09/24/2024 9:42 PM CDT Arya Vincent MD LAB POCT ORDERABLES - DEVICE Final Result Performing Organization Address [facility]/ZIP Co de Phone Number [facility] [place] [address] * POCT glucose (09/24/2024 5:06 PM CDT) Glucose, POC 104 70 - 199 mg/dL Blood 09/24/2024 5:06 PM CDT 09/24/2024 5:06 PM CDT Gianni Huerta MD LAB POCT ORDERABLES - DEV ICE Final Result Performing Organization Address [facility] Co de Phone Number [facility] [place] [address] * POCT glucose (09/24/2024 12:09 PM CDT) Glucose, POC 84 70 - 199 mg/dL Blood 09/24/2024 12:0 9 PM CDT 09/24/2024 12:09 PM CDT us Gianni Huerta MD LAB POCT ORDERABLES - DEV ICE Final Result Performing Organization Address [facility] Co de Phone Number [facility] [place] [address] * (ABNORMAL) POCT glucose (09/24/2024 11:14 AM CDT) Glucose, POC 68(L) 70 - 199 mg/dL Blood 09/24/2024 11:1 4 AM CDT 09/24/2024 11:14 AM CDT us Gianni Huerta MD LAB POCT ORDERABLES - DEV ICE Final Result Performing Organization Address [facility] Co de Phone Number [facility] [place] [address] * POCT glucose (09/24/2024 12:09 AM CDT) Glucose, POC 81 70 - 199 mg/dL Blood 09/24/2024 12:0 9 AM CDT 09/24/2024 12:09 AM CDT Gianni Huerta MD LAB POCT ORDERABLES - DEV ICE Final Result Performing Organization Address [facility]/ZIP Co de Phone Number [facility] Department [place] [address] * (ABNORMAL) eGFR (09/23/2024 11:05 PM CDT) Pathologist [facility] eGFR 12(L) >=60 mL/min/1. 73 m2 Comment: Interpretive Data Reference Interval Normal >/= 90 mL/min/1.73m2 Mildly decreased* 60 - 89 mL/min/1.73m2 Mildly to moderately decreased 45 - 59 mL/min/1.73m2 Moderately to severely decreased 30 - 44 mL/min/1.73m2 Severely decreased 15 - 29 mL/min/1.73m2 Kidney Failure < 15 mL/min/1.73m2 *Relative to young adult level Estimated glomerular filtration rate is determined by the 2020 CKD-EPI equation recommended by the National Kidney Foundation (A Unifying Approach to GFR Estimation: Recommendations of the NKF-ASK Task Force on Reassessing the Inclusion of Race in Diagnosing Kidney Disease, JASN 2020). The CKD-EPI equation should not be used for patients with unstable renal function and has not been validated in children and those over 70. Current interpretive data was last reviewed 2021. Blood 09/23/2024 11:0 5 PM CDT 09/23/2024 11:59 PM CDT us Kirk Gaming MD LAB BLOOD ORDERABLES F inal Result Performing Organization Address [facility]/ZIP Co de Phone Number [facility] Department [place] [address] * Differential, auto (09/23/2024 11:05 PM CDT) Neutrophil abs 4.40 1.50 - 6.50 K/cumm Imm gran abs 0.02 0.00 - 0.10 K/cumm [facility] Lymphocyte abs 2.23 0.80 - 3.30 K/cumm [facility] Monocyte abs 0.72 0.20 - 0.80 K/cumm [facility] Eosinophil abs 0.13 0.00 - 0.50 K/cumm [facility] Basophil abs 0.04 0.00 - 0.10 K/cumm [employer] [facility] [employer] [facility] [employer] [facility] [facility] Neutrophil pct 58.4 % [facility] Comment: Interpretive Data Percent cell count reference ranges are not reported, since discordance with absolute values may lead to misinterpretation of CBC data. Current Interpretive Data was last revised on 2017. Imm gran pct 0.3 % [facility] Comment: Interpretive Data Percent cell count reference ranges are not reported, since discordance with absolute values may lead to misinterpretation of CBC data. Current Interpretive Data was last revised on 2017. Lymphocyte pct 29.6 % [facility] Comment: Interpretive Data Percent cell count reference ranges are not reported, since discordance with absolute values may lead to misinterpretation of CBC data. Current Interpretive Data was last revised on 2017. Monocyte pct 9.5 % [facility] Comment: Interpretive Data Percent cell count reference ranges are not reported, since discordance with absolute values may lead to misinterpretation of CBC data. Current Interpretive Data was last revised on 2017. Eosinophil pct 1.7 % [facility] Comment: Interpretive Data Percent cell count reference ranges are not reported, since discordance with absolute values may lead to misinterpretation of CBC data. Current Interpretive Data was last revised on 2017. Basophil pct 0.5 % [facility] Comment: Interpretive Data Percent cell count reference ranges are not reported, since discordance with absolute values may lead to misinterpretation of CBC data. Current Interpretive Data was last revised on 2017. Blood 09/23/2024 11:0 5 PM CDT 09/24/2024 1:14 AM CDT Elizabet Dickey MD LAB BLOOD ORDERABLES F inal Result Performing Organization Address [facility] Co de Phone Number [facility] Department [place] [address] * (ABNORMAL) CBC with auto differential (09/23/2024 11:05 PM CDT) WBC 7.54 3.80 - 9.90 K/cumm Hgb 8.4(L) 11.9 - 15.5 g/dL [facility] Hct 27.1(L) 35.6 - 45.5 % [facility] Plt 224 150 - 400 K/cumm [facility] MPV 10.8 9.1 - 12.3 fL [facility] RBC 3.04(L) 3.90 - 5.20 M/cumm [facility] MCV 89.1 81.3 - 96.4 fL [facility] MCH 27.6 27.1 - 33.3 pg [facility] MCHC 31.0(L) 32.3 - 35.7 g/dL [facility] RDW CV 17.8(H) 11.1 - 14.9 % [facility] RDW SD 57.4(H) 35.7 - 48.1 fL [facility] NRBC abs 0.00 0.00 - 0.01 K/cumm [facility] Blood 09/23/2024 11:0 5 PM CDT 09/24/2024 1:14 AM CDT Elizabet Dickey MD LAB BLOOD ORDERABLES F inal Result Performing Organization Address City/[facility]/ZIP Co de Phone Number [facility] [place] [address] * Phosphorus (09/23/2024 11:05 PM CDT) Phosphorus, pl 2.8 2.3 - 4.5 mg/dL Blood 09/23/2024 11:0 5 PM CDT 09/23/2024 11:59 PM CDT Kirk Gaming MD LAB BLOOD ORDERABLES F inal Result Performing Organization Address [facility] Co de Phone Number [facility] [place] [address] * Bilirubin, direct (09/23/2024 11:05 PM CDT) Pathologist [facility] Bilirubin, direct <0.2 0.1 - 0.3 mg/dL Comment:Repeated and Verifie d Blood 09/23/2024 11:0 5 PM CDT 09/23/2024 11:59 PM CDT Kirk Gaming MD LAB BLOOD ORDERABLES F inal Result Performing Organization Address [facility] de Phone Number [facility] [place] [address] * (ABNORMAL) Comprehensive metabolic panel (09/23/2024 11:05 PM CDT) [facility] Sodium 134(L) 135 - 145 mmol/L Potassium, pl 4.0 3.3 - 4.9 mmol/L [facility] Chloride 97 97 - 110 mmol/L [facility] CO2 30 22 - 32 mmol/L [facility] Anion gap 7 2 - 15 mmol/L [facility] BUN 25 6 - 25 mg/dL [facility] Creatinine 4.85(H) 0.60 - 1.10 mg/dL [facility] Glucose 84 70 - 199 mg/dL [facility] Comment: Interpretive Data Fasting glucose >/= 126 mg/dl is diagnostic for diabetes. Fasting is defined as no caloric intake for at least 8 hours. Fasting glucose between 100 mg/dl to 125 mg/dl is diagnostic of prediabetes. In a patient with classic symptoms of hyperglycemia or hyperglycemic crisis, a random glucose >/= 200 mg/dl is diagnostic for diabetes. In the absence of unequivocal hyperglycemia, results should be confirmed by repeat testing. The classification and Diagnosis of Diabetes Diabetes Care 202; 46: S19-S40. Current interpretive data was last revised 2022. Calcium 8.0(L) 8.5 - 10.3 mg/dL [facility] Bilirubin, total 0.5 0.1 - 1.2 mg/dL [facility] Protein, pl 7.7 6.5 - 8.5 g/dL [facility] Albumin 2.1(L) 3.5 - 5.0 g/dL [facility] Alk phos 107 40 - 130 Units/L [facility] ALT 5(L) 7 - 45 Units/L [facility] AST 17 10 - 45 Units/L [facility] Blood 09/23/2024 11:0 5 PM CDT 09/23/2024 11:59 PM CDT Kirk Gaming MD LAB BLOOD ORDERABLES F inal Result Performing Organization Address [facility]/ZIP Co de Phone Number [facility] Department [place] [address] * POCT glucose (09/23/2024 6:42 PM CDT) Glucose, POC 85 70 - 199 mg/dL Blood 09/23/2024 6:42 PM CDT 09/23/2024 6:42 PM CDT Gianni Huerta MD LAB POCT ORDERABLES - DEV ICE Final Result [facility] Department [place] [address] * POCT glucose (09/23/2024 12:55 PM CDT) Glucose, POC 76 70 - 199 mg/dL Blood 09/23/2024 12:5 5 PM CDT 09/23/2024 12:55 PM CDT Gianni Huerta MD LAB POCT ORDERABLES - DEV ICE Final Result Performing Organization Address [facility]/ZIP Co de Phone Number [facility] [place] [address] * POCT glucose (09/23/2024 9:34 AM CDT) Glucose, POC 71 70 - 199 mg/dL Blood 09/23/2024 9:34 AM CDT 09/23/2024 9:34 AM CDT us Gianni Huerta MD LAB POCT ORDERABLES - DEV ICE Final Result Performing Organization Address [facility] Co de Phone Number [facility] [place] [address] * POCT glucose (09/23/2024 12:28 AM CDT) Glucose, POC 89 70 - 199 mg/dL Blood 09/23/2024 12:2 8 AM CDT 09/23/2024 12:28 AM CDT us Gianni Huerta MD LAB POCT ORDERABLES - DEV ICE Final Result Performing Organization Address [facility]/ZIP Co de Phone Number [facility] [place] [address] * POCT glucose (09/22/2024 4:05 PM CDT) Glucose, POC 98 70 - 199 mg/dL Blood 09/22/2024 4:05 PM CDT 09/22/2024 4:05 PM CDT us Gianni Huerta MD LAB POCT ORDERABLES - DEV ICE Final Result Performing Organization Address City/[facility]/ZIP Co de Phone Number [facility] [place] [address] * POCT glucose (09/22/2024 1:35 PM CDT) Glucose, POC 113 70 - 199 mg/dL Blood 09/22/2024 1:35 PM CDT 09/22/2024 1:35 PM CDT us Gianni Huerta MD LAB POCT ORDERABLES - DEV ICE Final Result Performing Organization Address [facility] Co de Phone Number [facility] [place] [address] * (ABNORMAL) POCT glucose (09/22/2024 12:20 PM CDT) Glucose, POC 69(L) 70 - 199 mg/dL Comment:Glu2: RN/MD Notified Glucose comment 1 Glu2: RN/MD Notified [facility] Blood 09/22/2024 12:2 0 PM CDT 09/22/2024 12:20 PM CDT Gianni Huerta MD LAB POCT ORDERABLES - DEV ICE Final Result Performing Organization Address [facility] Co de Phone Number [facility] [place] [address] * POCT glucose (09/22/2024 8:14 AM CDT) Glucose, POC 103 70 - 199 mg/dL Blood 09/22/2024 8:14 AM CDT 09/22/2024 8:14 AM CDT us Gianni Huerta MD LAB POCT ORDERABLES - DEV ICE Final Result Performing Organization Address [facility] Co de Phone Number [facility] [place] [address] * (ABNORMAL) POCT glucose (09/22/2024 7:25 AM CDT) Glucose, POC 66(L) 70 - 199 mg/dL Blood 09/22/2024 7:25 AM CDT 09/22/2024 7:25 AM CDT Gianni Huerta MD LAB POCT ORDERABLES - DEV ICE Final Result Performing Organization Address [facility] Co de Phone Number [facility] [place] [address] * POCT glucose (09/21/2024 9:12 PM CDT) Glucose, POC 120 70 - 199 mg/dL Blood 09/21/2024 9:12 PM CDT 09/21/2024 9:12 PM CDT Gianni Huerta MD LAB POCT ORDERABLES - DEV ICE Final Result Performing Organization Address [facility] Co de Phone Number [facility] [place] [address] * POCT glucose (09/21/2024 4:21 PM CDT) Glucose, POC 104 70 - 199 mg/dL Blood 09/21/2024 4:21 PM CDT 09/21/2024 4:21 PM CDT Gianni Huerta MD LAB POCT ORDERABLES - DEV ICE Final Result Performing Organization Address City/[facility] Co de Phone Number [facility] [place] [address] * POCT glucose (09/21/2024 1:56 PM CDT) Glucose, POC 102 70 - 199 mg/dL Blood 09/21/2024 1:56 PM CDT 09/21/2024 1:56 PM CDT us Gianni Huerta MD LAB POCT ORDERABLES - DEV ICE Final Result Performing Organization Address [facility] Co de Phone Number [facility] [place] [address] * (ABNORMAL) POCT glucose (09/21/2024 1:25 PM CDT) Glucose, POC 62(L) 70 - 199 mg/dL Blood 09/21/2024 1:25 PM CDT 09/21/2024 1:25 PM CDT us Gianni Huerta MD LAB POCT ORDERABLES - DEV ICE Final Result Performing Organization Address [facility] Co de Phone Number [facility] Department [place] [address] * POCT glucose (09/21/2024 11:19 AM CDT) Glucose, POC 89 70 - 199 mg/dL Blood 09/21/2024 11:1 9 AM CDT 09/21/2024 11:19 AM CDT us Gianni Huerta MD LAB POCT ORDERABLES - DEV ICE Final Result Performing Organization Address [facility] Co de Phone Number [facility] [place] [address] * (ABNORMAL) POCT glucose (09/21/2024 10:03 AM CDT) Glucose, POC 69(L) 70 - 199 mg/dL Blood 09/21/2024 10:0 3 AM CDT 09/21/2024 10:03 AM CDT us Gianni Huerta MD LAB POCT ORDERABLES - DEV ICE Final Result Performing Organization Address [facility] Co de Phone Number [facility] [place] [address] * POCT glucose (09/21/2024 8:02 AM CDT) Glucose, POC 73 70 - 199 mg/dL Blood 09/21/2024 8:02 AM CDT 09/21/2024 8:02 AM CDT Gianni Huerta MD LAB POCT ORDERABLES - DEV ICE Final Result Performing Organization Address [facility] Co de Phone Number [facility] [place] [address] * POCT glucose (09/20/2024 9:21 PM CDT) Glucose, POC 93 70 - 199 mg/dL Blood 09/20/2024 9:21 PM CDT 09/20/2024 9:21 PM CDT Gianni Huerta MD LAB POCT ORDERABLES - DEV ICE Final Result Performing Organization Address [facility] Co de Phone Number [facility] [place] [address] * (ABNORMAL) eGFR (09/20/2024 9:01 PM CDT) eGFR 16(L) >=60 mL/min/1. 73 m2 Comment: Interpretive Data Reference Interval Normal >/= 90 mL/min/1.73m2 Mildly decreased* 60 - 89 mL/min/1.73m2 Mildly to moderately decreased 45 - 59 mL/min/1.73m2 Moderately to severely decreased 30 - 44 mL/min/1.73m2 Severely decreased 15 - 29 mL/min/1.73m2 Kidney Failure < 15 mL/min/1.73m2 *Relative to young adult level Estimated glomerular filtration rate is determined by the 2020 CKD-EPI equation recommended by the National Kid[employer] (A Unifying Approach to GFR Estimation: Recommendations of the NKF-ASK Task Force on Reassessing the Inclusion of Race in Diagnosing Kidney Disease, JASN 202). The CKD-EPI equation should not be used for patients with unstable renal function and has not been validated in children and those over 70. Current interpretive data was last reviewed 2021. Blood 09/20/2024 9:01 PM CDT 09/20/2024 9:58 PM CDT us Kirk Gaming MD LAB BLOOD ORDERABLES F inal Result [facility] Department [place] [address] * Differential, auto (09/20/2024 9:01 PM CDT) Neutrophil abs 5.45 1.50 - 6.50 K/cumm Imm gran abs 0.04 0.00 - 0.10 K/cumm [facility] Lymphocyte abs 2.45 0.80 - 3.30 K/cumm [facility] Monocyte abs 0.80 0.20 - 0.80 K/cumm [facility] Eosinophil abs 0.14 0.00 - 0.50 K/cumm [facility] Basophil abs 0.03 0.00 - 0.10 K/cumm [facility] Neutrophil pct 61.2 % [facility] Comment: Interpretive Data Percent cell count reference ranges are not reported, since discordance with absolute values may lead to misinterpretation of CBC data. Current Interpretive Data was last revised on 2017. Imm gran pct 0.4 % [facility] Comment: Interpretive Data Percent cell count reference ranges are not reported, since discordance with absolute values may lead to misinterpretation of CBC data. Current Interpretive Data was last revised on 2017. Lymphocyte pct 27.5 % [facility] Comment: Interpretive Data Percent cell count reference ranges are not reported, since discordance with absolute values may lead to misinterpretation of CBC data. Current Interpretive Data was last revised on 2017. Monocyte pct 9.0 % [facility] Comment: Interpretive Data Percent cell count reference ranges are not reported, since discordance with absolute values may lead to misinterpretation of CBC data. Current Interpretive Data was last revised on 2017. Eosinophil pct 1.6 % [facility] Comment: Interpretive Data Percent cell count reference ranges are not reported, since discordance with absolute values may lead to misinterpretation of CBC data. Current Interpretive Data was last revised on 2017. Basophil pct 0.3 % [facility] Comment: Interpretive Data Percent cell count reference ranges are not reported, since discordance with absolute values may lead to misinterpretation of CBC data. Current Interpretive Data was last revised on 2017. Blood 09/20/2024 9:01 PM CDT 09/20/2024 9:58 PM CDT us Gianni Huerta MD LAB BLOOD ORDERABLES Florinda hanson Result [facility] Department [place] [address] * (ABNORMAL) CBC with auto differential (09/20/2024 9:01 PM CDT) WBC 8.91 3.80 - 9.90 K/cumm Hgb 9.4(L) 11.9 - 15.5 g/dL [facility] Hct 30.5(L) 35.6 - 45.5 % [facility] Plt 233 150 - 400 K/cumm [facility] MPV 10.7 9.1 - 12.3 fL [facility] RBC 3.44(L) 3.90 - 5.20 M/cumm [facility] MCV 88.7 81.3 - 96.4 fL [facility] MCH 27.3 27.1 - 33.3 pg [facility] MCHC 30.8(L) 32.3 - 35.7 g/dL [facility] RDW CV 18.2(H) 11.1 - 14.9 % [facility] RDW SD 57.8(H) 35.7 - 48.1 fL [facility] NRBC abs 0.00 0.00 - 0.01 K/cumm [facility] Blood 09/20/2024 9:01 PM CDT 09/20/2024 9:58 PM CDT Gianni Huerta MD LAB BLOOD ORDERABLES Florinda l Result Performing Organization Address [facility] Co de Phone Number [facility] Department [place] [address] * Magnesium (09/20/2024 9:01 PM CDT) [facility] Magnesium 1.7 1.4 - 2.5 mg/dL Blood 09/20/2024 9:01 PM CDT 09/20/2024 9:58 PM CDT Gianni Huerta MD LAB BLOOD ORDERABLES Florinda l Result Performing Organization Address [facility] de Phone Number [facility] [place] [address] * (ABNORMAL) Renal function panel (09/20/2024 9:01 PM CDT) Pathologist [facility] Sodium 133(L) 135 - 145 mmol/L Potassium, pl 3.9 3.3 - 4.9 mmol/L [facility] Chloride 98 97 - 110 mmol/L [facility] CO2 27 22 - 32 mmol/L [facility] Anion gap 8 2 - 15 mmol/L [facility] BUN 18 6 - 25 mg/dL [facility] Creatinine 3.72(H) 0.60 - 1.10 mg/dL [facility] Glucose 86 70 - 199 mg/dL [facility] Comment: Interpretive Data Fasting glucose >/= 126 mg/dl is diagnostic for diabetes. Fasting is defined as no caloric intake for at least 8 hours. Fasting glucose between 100 mg/dl to 125 mg/dl is diagnostic of prediabetes. In a patient with classic symptoms of hyperglycemia or hyperglycemic crisis, a random glucose >/= 200 mg/dl is diagnostic for diabetes. In the absence of unequivocal hyperglycemia, results should be confirmed by repeat testing. The classification and Diagnosis of Diabetes Diabetes Care 2021; 46: S19-S40. Current interpretive data was last revised 2022. Calcium 8.2(L) 8.5 - 10.3 mg/dL [facility] Phosphorus, pl 2.9 2.3 - 4.5 mg/dL [facility] Albumin 2.2(L) 3.5 - 5.0 g/dL [facility] Blood 09/20/2024 9:01 PM CDT 09/20/2024 9:58 PM CDT Kirk Gaming MD LAB BLOOD ORDERABLES F inal Result Performing Organization Address [facility] Co de Phone Number [facility] Department [place] [address] * POCT glucose (09/20/2024 6:22 PM CDT) Glucose, POC 88 70 - 199 mg/dL Blood 09/20/2024 6:22 PM CDT 09/20/2024 6:22 PM CDT Gianni Huerta MD LAB POCT ORDERABLES - DEV ICE Final Result Performing Organization Address [facility] Co de Phone Number [facility] Department [place] [address] * POCT glucose (09/20/2024 4:20 PM CDT) Glucose, POC 86 70 - 199 mg/dL Blood 09/20/2024 4:20 PM CDT 09/20/2024 4:20 PM CDT Gianni Huerta MD LAB POCT ORDERABLES - DEV ICE Final Result Performing Organization Address [facility]/ZIP Co de Phone Number [facility] [place] [address] * POCT glucose (09/20/2024 3:06 PM CDT) Glucose, POC 95 70 - 199 mg/dL Blood 09/20/2024 3:06 PM CDT 09/20/2024 3:06 PM CDT us Gianni Huerta MD LAB POCT ORDERABLES - DEV ICE Final Result Performing Organization Address City/[facility]/[place] [address] * (ABNORMAL) POCT glucose (09/20/2024 2:03 PM CDT) Glucose, POC 68(L) 70 - 199 mg/dL Comment:Glu2: RN/MD Notified Glucose comment 1 Glu2: RN/MD Notified [facility] Blood 09/20/2024 2:03 PM CDT 09/20/2024 2:03 PM CDT us Gianni Huerta MD LAB POCT ORDERABLES - DEV ICE Final Result Performing Organization Address [facility]/ZIP Co de Phone Number [facility] [place] [address] * POCT glucose (09/20/2024 11:04 AM CDT) Glucose, POC 79 70 - 199 mg/dL Blood 09/20/2024 11:0 4 AM CDT 09/20/2024 11:04 AM CDT us Gianni Huerta MD LAB POCT ORDERABLES - DEV ICE Final Result Performing Organization Address [facility]/ZIP Co de Phone Number [facility] [address] * POCT glucose (09/20/2024 9:48 AM CDT) Glucose, POC 79 70 - 199 mg/dL Blood 09/20/2024 9:48 AM CDT 09/20/2024 9:48 AM CDT us Gianni Huerta MD LAB POCT ORDERABLES - [place] [address] * POCT glucose (09/20/2024 8:13 AM CDT) Glucose, POC 71 70 - 199 mg/dL Blood 09/20/2024 8:13 AM CDT 09/20/2024 8:13 AM CDT us Gianni Huerta MD LAB POCT ORDERABLES - DEV ICE Final Result Performing Organization Address [facility]/[place] [address] * POCT glucose (09/20/2024 5:56 AM CDT) Glucose, POC 76 70 - 199 mg/dL Blood 09/20/2024 5:56 AM CDT 09/20/2024 5:56 AM CDT us Gianni Huerta MD LAB POCT ORDERABLES - DEV ICE Final Result Performing Organization Address [facility]/[place] [address] * POCT glucose (09/20/2024 3:36 AM CDT) Glucose, POC 78 70 - 199 mg/dL Blood 09/20/2024 3:36 AM CDT 09/20/2024 3:36 AM CDT us Gianni Huerta MD LAB POCT ORDERABLES - DEV ICE Final Result Performing Organization Address [facility] de Phone Number [facility] [place] [address] * POCT glucose (09/20/2024 2:16 AM CDT) Glucose, POC 86 70 - 199 mg/dL Blood 09/20/2024 2:16 AM CDT 09/20/2024 2:16 AM CDT us Gianni Huerta MD LAB POCT ORDERABLES - DEV ICE Final Result Performing Organization Address [facility] de Phone Number [facility] [place] [address] * (ABNORMAL) POCT glucose (09/20/2024 12:49 AM CDT) Glucose, POC 61(L) 70 - 199 mg/dL Blood 09/20/2024 12:4 9 AM CDT 09/20/2024 12:49 AM CDT us Gianni Huerta MD LAB POCT ORDERABLES - DEV ICE Final Result Performing Organization Address [facility] [place] [place] [address] * POCT glucose (09/19/2024 10:35 PM CDT) Glucose, POC 125 70 - 199 mg/dL Blood 09/19/2024 10:3 5 PM CDT 09/19/2024 10:35 PM CDT us Gianni Huerta MD LAB POCT ORDERABLES - DEV ICE Final Result Performing Organization Address [facility] de Phone Number [facility] [place] [address] * (ABNORMAL) POCT glucose (09/19/2024 9:13 PM CDT) Glucose, POC 69(L) 70 - 199 mg/dL Blood 09/19/2024 9:13 PM CDT 09/19/2024 9:13 PM CDT Gianni Huerta MD LAB POCT ORDERABLES - DEV ICE Final Result Performing Organization Address [facility] de Phone Number [facility] [place] [address] * POCT glucose (09/19/2024 6:36 PM CDT) Glucose, POC 75 70 - 199 mg/dL Blood 09/19/2024 6:36 PM CDT 09/19/2024 6:36 PM CDT Gianni Huerta MD LAB POCT ORDERABLES - DEV ICE Final Result Performing Organization Address [facility] de Phone Number [facility] Department [place] [address] * (ABNORMAL) POCT glucose (09/19/2024 5:51 PM CDT) Glucose, POC 68(L) 70 - 199 mg/dL Blood 09/19/2024 5:51 PM CDT 09/19/2024 5:51 PM CDT us Gianni Huerta MD LAB POCT ORDERABLES - DEV ICE Final Result Performing Organization Address [facility]/State/ZIP Co de Phone Number [facility] Department [place] [address] * TRANSTHORACIC ECHO (TTE) LIMITED/FOLLOW UP W LTD DOPPLER/CF WO CONTRAST (09/19/2024 5:11 PM CDT) Anatomical Region Laterality Modality Ultrasound 09/19/2024 4:16 PM CDT Narrative 09/19/2024 5:51 PM CDT [facility] [place] [address] Transthoracic Echocardiographic Report Patient Name: TIFFANY MILLER T : 1995 (29y ) Gender: F Study Date: 09/19/2024 04:16:47 PM Ht(Inch): 67 Wt(Lb): 164.9 BSA: 1.88 Occupational Health Physician: Diana Urbano [facility] Location: [id number] Order Provider: GIANNI HUERTA Heart Rate: 103 BMI: 25.82 BP: 146/112 Ref Provider: GIANNI HUERTA PROCEDURES: Echocardiographic Report: Limited transthoracic 2D echo, includes spectral and tissue Doppler, color flow Doppler, and/or M-mode, when performed. INDICATIONS: Endocarditis follow up. CONCLUSIONS: 1. Limited study to assess for endocarditis. Large (1.5 X 2.3 cm) mobile vegetation noted in the septal ticuspid valve leaflet. Recommend Interventional Cardiology and/or Cardiothoracic-Surgery consultation to consider furthewr management. Normal LV wall thickness. 2. Normal right ventricular systolic function. ATTESTATION: I have personally reviewed and interpreted this study without fellow or resident. - DISCLAIMER: The study images and the final report will be retained in the patient chart by the Echo Laboratory for the legally required time period. This chart constitutes the legal record of any testing performed. FINDINGS: Left Ventricle: Normal LV wall thickness. Right Ventricle: Normal right ventricular systolic function. Left Atrium: The left atrium is not well visualized due to limited study. Right Atrium: The right atrium is not well visualized due to limited study. Mitral Valve: Mitral valve is not well visualized due to limited study. Aortic Valve: Aortic valve not well visualized due to limited study. Tricuspid Valve: Severe tricuspid regurgitation. There is mobile echo density on the tricuspid valve consistent with vegetation. Pulmonic Valve: The pulmonic valve is not well visualized due to limited study. Pericardium: The pericardium is not well visualized due to limited study. Aorta: Aorta not well visualized due to limited study. Rhythm: The rhythm during the study was sinus tachycardia. MEASUREMENTS: 2D/MM Value Range Doppler Value Range LVIDd 2D 4.40 cm [ 3.80 - 5.20 ] RV S` 16.48 cm/sec LVIDs 2D 3.04 cm [ 2.20 - 3.50 ] TR Peak Nathanael 1.9 m/s [ 1.0 - 2.8 ] IVSd 2D 0.72 cm [ 0.60 - 0.90 ] TR Peak PG 14.4 mmHg LVPWd 2D 0.71 cm [ 0.60 - 0.90 ] LV Thickness Ratio 1.0 LV FS 2D 30.95 % [ 27.00 - 45.00 ] LV Mass 2D 97.32 g LV Mass Index 2D 51.77 g/m2 RWT 0.32 RV ES Area 11.99 cm2 [ 3.00 - 11.00 ] TAPSE 2.88 cm [ 1.71 - 5.00 ] Electronically Signed By: Benjamin Parson MD 09/19/2024 5:51:16 PM CDT Procedure Note Benjamin Parson MD - 09/19/2024 [facility] Cardiac [place] [address] Transthoracic Echocardiographic Report Patient Name: TIFFANY MILLER T : 1995 (29y ) Gender: F Study Date: 09/19/2024 04:16:47 PM Ht(Inch): 67 Wt(Lb): 164.9 BSA: 1.88 Occupational Health Physician: Diana Urbano [facility] Location: [id number] Order Provider:GIANNI HUERTA Heart Rate: 103 BMI: 25.82 BP: 146/112 Ref Provider: GIANNI HUERTA PROCEDURES: Echocardiographic Report: Limited transthoracic 2D echo, includes spectraland tissue Doppler, color flow Doppler, and/or M-mode, when performed. INDICATIONS: Endocarditis follow up. CONCLUSIONS: 1. Limited study to assess for endocarditis. Large (1.5 X 2.3 cm) mobilevegetation noted in the septal ticuspid valve leaflet. Recommend Interventional Cardiologyand/or Cardiothoracic-Surgery consultation to consider furthewr management.Normal LV wall thickness. 2. Normal right ventricular systolic function. ATTESTATION: I have personally reviewed and interpreted this study without fellow orresident. - DISCLAIMER: The study images and the final report will be retained in the patientchart by the Echo Laboratory for the legally required time period. This chart constitutesthe legal record of any testing performed. FINDINGS: Left Ventricle: Normal LV wall thickness. Right Ventricle: Normal right ventricular systolic function. Left Atrium: The left atrium is not well visualized due to limitedstudy. Right Atrium: The right atrium is not well visualized due to limitedstudy. Mitral Valve: Mitral valve is not well visualized due to limited study. Aortic Valve: Aortic valve not well visualized due to limited study. Tricuspid Valve: Severe tricuspid regurgitation. There is mobile echodensity on the tricuspid valve consistent with vegetation. Pulmonic Valve: The pulmonic valve is not well visualized due to limitedstudy. Pericardium: The pericardium is not well visualized due to limitedstudy. Aorta: Aorta not well visualized due to limited study. Rhythm: The rhythm during the study was sinus tachycardia. MEASUREMENTS: 2D/MM Value Range Doppler ValueRange LVIDd 2D 4.40 cm [ 3.80 - 5.20 ] RV S` 16.48cm/sec LVIDs 2D 3.04 cm [ 2.20 - 3.50 ] TR Peak Nathanael 1.9m/s [ 1.0 - 2.8 ] IVSd 2D 0.72 cm [ 0.60 - 0.90 ] TR Peak PG 14.4mmHg LVPWd 2D 0.71 cm [ 0.60 - 0.90 ] LV Thickness Ratio 1.0 LV FS 2D 30.95 % [ 27.00 - 45.00 ] LV Mass 2D 97.32g LV Mass Index 2D 51.77g/m2 RWT 0.32 RV ES Area 11.99 cm2 [ 3.00 - 11.00 ] TAPSE 2.88 cm [ 1.71 - 5.00 ] Electronically Signed By: Benjamin Parson MD 09/19/2024 5:51:16 PM CDT Gianni Huerta MD CV ECHO PROCEDURES Final Result * POCT glucose (09/19/2024 1:50 AM CDT) Glucose, POC 121 70 - 199 mg/dL Blood 09/19/2024 1:50 AM CDT 09/19/2024 1:50 AM CDT us Gianni Huerta MD LAB POCT ORDERABLES - DEV ICE Final Result [facility] [place] [address] * POCT glucose (09/19/2024 12:26 AM CDT) Glucose, POC 92 70 - 199 mg/dL Blood 09/19/2024 12:2 6 AM CDT 09/19/2024 12:26 AM CDT Gianni Huerta MD LAB POCT ORDERABLES - [place] [address] * POCT glucose (09/18/2024 11:12 PM CDT) Glucose, POC 73 70 - 199 mg/dL Blood 09/18/2024 11:1 2 PM CDT 09/18/2024 11:12 PM CDT Gianni Huerta MD LAB POCT ORDERABLES - DEV ICE Final Result Performing Organization Address City/[facility]/[place] [address] * (ABNORMAL) POCT glucose (09/18/2024 10:55 PM CDT) Glucose, POC 65(L) 70 - 199 mg/dL Blood 09/18/2024 10:5 5 PM CDT 09/18/2024 10:55 PM CDT Gianni Huerta MD LAB POCT ORDERABLES - DEV ICE Final Result [facility] [place] [address] * (ABNORMAL) eGFR (09/18/2024 8:36 PM CDT) Pathologist [facility] eGFR 17(L) >=60 mL/min/1. 73 m2 Comment: Interpretive Data Reference Interval Normal >/= 90 mL/min/1.73m2 Mildly decreased* 60 - 89 mL/min/1.73m2 Mildly to moderately decreased 45 - 59 mL/min/1.73m2 Moderately to severely decreased 30 - 44 mL/min/1.73m2 Severely decreased 15 - 29 mL/min/1.73m2 Kidney Failure < 15 mL/min/1.73m2 *Relative to young adult level Estimated glomerular filtration rate is determined by the 2020 CKD-EPI equation recommended by the National Kidney Foundation (A Unifying Approach to GFR Estimation: Recommendations of the NKF-ASK Task Force on Reassessing the Inclusion of Race in Diagnosing Kidney Disease, JASN 2020). The CKD-EPI equation should not be used for patients with unstable renal function and has not been validated in children and those over 70. Current interpretive data was last reviewed 2021. Blood 09/18/2024 8:36 PM CDT 09/18/2024 9:25 PM CDT us Kirk Gaming MD LAB BLOOD ORDERABLES F inal Result [facility] Department [place] [address] * (ABNORMAL) Renal function panel (09/18/2024 8:36 PM CDT) Pathologist [facility] Sodium 134(L) 135 - 145 mmol/L Potassium, pl 4.3 3.3 - 4.9 mmol/L [facility] Chloride 97 97 - 110 mmol/L [facility] CO2 27 22 - 32 mmol/L [facility] Anion gap 10 2 - 15 mmol/L [facility] BUN 18 6 - 25 mg/dL [facility] Creatinine 3.60(H) 0.60 - 1.10 mg/dL [facility] Glucose 68(L) 70 - 199 mg/dL [facility] Comment: Interpretive Data Fasting glucose >/= 126 mg/dl is diagnostic for diabetes. Fasting is defined as no caloric intake for at least 8 hours. Fasting glucose between 100 mg/dl to 125 mg/dl is diagnostic of prediabetes. In a patient with classic symptoms of hyperglycemia or hyperglycemic crisis, a random glucose >/= 200 mg/dl is diagnostic for diabetes. In the absence of unequivocal hyperglycemia, results should be confirmed by repeat testing. The classification and Diagnosis of Diabetes Diabetes Care 2021; 46: S19-S40. Current interpretive data was last revised 2022. Calcium 8.2(L) 8.5 - 10.3 mg/dL [facility] Phosphorus, pl 3.0 2.3 - 4.5 mg/dL [facility] Albumin 2.1(L) 3.5 - 5.0 g/dL [facility] Blood 09/18/2024 8:36 PM CDT 09/18/2024 9:25 PM CDT us Kirk Gaming MD LAB BLOOD ORDERABLES F inal Result Performing Organization Address City/[facility]/ZIP Co de Phone Number [facility] Department [place] [address] * POCT glucose (09/18/2024 8:00 PM CDT) Glucose, POC 88 70 - 199 mg/dL Comment:Glu2: RN/MD Notified Glucose comment 1 Glu2: RN/MD Notified [facility] Blood 09/18/2024 8:00 PM CDT 09/18/2024 8:00 PM CDT us Gianni Huerta MD LAB POCT ORDERABLES - DEV ICE Final Result [facility] [place] [address] * POCT glucose (09/18/2024 5:57 PM CDT) Glucose, POC 77 70 - 199 mg/dL Blood 09/18/2024 5:57 PM CDT 09/18/2024 5:57 PM CDT Gianni Huerta MD LAB POCT ORDERABLES - DEV ICE Final Result [facility] Department [place] [address] * XR Abdomen Ap 1 Vw (09/18/2024 4:26 PM CDT) Anatomical Region Laterality Modality Body, Abdomen N/A Computed Radiogr aphy 09/18/2024 4:32 PM CDT Impressions 09/18/2024 4:38 PM CDT Intrauterine device overlies the pelvis. Normal bowel gas pattern. Dictated by: Gus Pedersen MD The radiology attending physician has personally reviewed this study, and had reviewed and/or edited this written report and agrees with it. Electronically signed by: Rhea Montano M.D. Narrative 09/18/2024 4:38 PM CDT EXAMINATION: Abdomen, one view. HISTORY: Constipation COMPARISON: Radiograph from 08/25/2024 Procedure Note Rhea Montano MD - 09/18/2024 EXAMINATION: Abdomen, one view. HISTORY: Constipation COMPARISON: Radiograph from 08/25/2024 IMPRESSION: Intrauterine device overlies the pelvis. Normal bowel gas pattern. Dictated by: Gus Pedersen MD The radiology attending physician has personally reviewed this study, and had reviewed and/or edited this written report and agrees with it. Electronically signed by: Rhea Montano M.D. us Gianni Huerta MD IMG XR PROCEDURES Final R esult * POCT glucose (09/18/2024 12:50 PM CDT) Glucose, POC 84 70 - 199 mg/dL Blood 09/18/2024 12:5 0 PM CDT 09/18/2024 12:50 PM CDT us Gianni Huerta MD LAB POCT ORDERABLES - DEV ICE Final Result Performing Organization Address [facility] de Phone Number [facility] [place] [address] * POCT glucose (09/18/2024 10:23 AM CDT) Glucose, POC 110 70 - 199 mg/dL Blood 09/18/2024 10:2 3 AM CDT 09/18/2024 10:23 AM CDT us Gianni Huerta MD LAB POCT ORDERABLES - DEV ICE Final Result Performing Organization Address [facility] de Phone Number [facility] [place] [address] * POCT glucose (09/18/2024 9:02 AM CDT) Glucose, POC 137 70 - 199 mg/dL Blood 09/18/2024 9:02 AM CDT 09/18/2024 9:02 AM CDT us Gianni Huerta MD LAB POCT ORDERABLES - DEV ICE Final Result Performing Organization Address [facility] de Phone Number [facility] [place] [address] * (ABNORMAL) POCT glucose (09/18/2024 7:48 AM CDT) Glucose, POC 66(L) 70 - 199 mg/dL Blood 09/18/2024 7:48 AM CDT 09/18/2024 7:48 AM CDT us Gianni Huerta MD LAB POCT ORDERABLES - DEV ICE Final Result Performing Organization Address [facility]/ZIP Co de Phone Number [facility] [place] [address] * Cortisol (09/18/2024 6:17 AM CDT) Cortisol 15.5 4.8 - 19.5 mcg/dL Comment: Interpretive Data: Morning hours 6-10 a.m. 4.8 - 19.5 mcg/dL Afternoon hours 4-8 p.m. 2.5 - 11.9 mcg/dL This analyte undergoes marked diurnal variation. Current interpretive data was last revised 23. Blood 09/18/2024 6:17 AM CDT 09/18/2024 7:35 AM CDT us Valerie Cooper MD PhD LAB BLOOD ORDERABLES Final Result Performing Organization Address [facility] Co de Phone Number [facility] [place] [address] * POCT glucose (09/17/2024 10:21 PM CDT) Glucose, POC 105 70 - 199 mg/dL Blood 09/17/2024 10:2 1 PM CDT 09/17/2024 10:21 PM CDT us Valerie Cooper MD PhD LAB POCT ORDERABLES - DEVICE Final Result Performing Organization Address [facility] Co de Phone Number [facility] [place] [address] * POCT glucose (09/17/2024 9:21 PM CDT) Glucose, POC 149 70 - 199 mg/dL Blood 09/17/2024 9:21 PM CDT 09/17/2024 9:21 PM CDT Valerie Cooper MD PhD LAB POCT ORDERABLES - DEVICE Final Result [facility] [place] [address] * POCT glucose (09/17/2024 8:54 PM CDT) Glucose, POC 96 70 - 199 mg/dL Blood 09/17/2024 8:54 PM CDT 09/17/2024 8:54 PM CDT us Valerie Cooper MD PhD LAB POCT ORDERABLES - DEVICE Final Result Performing Organization Address City/[facility]/[place] [address] * POCT glucose (09/17/2024 8:17 PM CDT) Glucose, POC 97 70 - 199 mg/dL Blood 09/17/2024 8:17 PM CDT 09/17/2024 8:17 PM CDT us Valerie Cooper MD PhD LAB POCT ORDERABLES - DEVICE Final Result Performing Organization Address City/[facility]/ZIP Co de Phone Number [facility] [place] [address] * POCT glucose (09/17/2024 8:01 PM CDT) Glucose, POC 83 70 - 199 mg/dL Blood 09/17/2024 8:01 PM CDT 09/17/2024 8:01 PM CDT us Valerie Cooper MD PhD LAB POCT ORDERABLES - DEVICE Final Result [facility] [place] [address] * POCT glucose (09/17/2024 7:48 PM CDT) Glucose, POC 78 70 - 199 mg/dL Blood 09/17/2024 7:48 PM CDT 09/17/2024 7:48 PM CDT Valerie Cooper MD PhD LAB POCT ORDERABLES - DEVICE Final Result Performing Organization Address City/[facility] Co de Phone Number [facility] [place] [address] * (ABNORMAL) POCT glucose (09/17/2024 7:21 PM CDT) Glucose, POC 68(L) 70 - 199 mg/dL Blood 09/17/2024 7:21 PM CDT 09/17/2024 7:21 PM CDT Valerie Cooper MD PhD LAB POCT ORDERABLES - DEVICE Final Result Performing Organization Address City/[facility] Co de Phone Number [facility] [place] [address] * POCT glucose (09/17/2024 6:49 PM CDT) Glucose, POC 91 70 - 199 mg/dL Blood 09/17/2024 6:49 PM CDT 09/17/2024 6:49 PM CDT Valerie Cooper MD PhD LAB POCT ORDERABLES - DEVICE Final Result Performing Organization Address City[facility] Co de Phone Number [facility] [place] [address] * POCT glucose (09/17/2024 6:11 PM CDT) Glucose, POC 70 70 - 199 mg/dL Blood 09/17/2024 6:11 PM CDT 09/17/2024 6:11 PM CDT Valerie Cooper MD PhD LAB POCT ORDERABLES - DEVICE Final Result Performing Organization Address [facility] Co de Phone Number [facility] Department [place] [address] * POCT glucose (09/17/2024 12:03 PM CDT) Glucose, POC 73 70 - 199 mg/dL Blood 09/17/2024 12:0 3 PM CDT 09/17/2024 12:03 PM CDT Valerie Cooper MD PhD LAB POCT ORDERABLES - DEVICE Final Result Performing Organization Address [facility] Co de Phone Number [facility] [place] [address] * POCT glucose (09/17/2024 9:18 AM CDT) Glucose, POC 118 70 - 199 mg/dL Blood 09/17/2024 9:18 AM CDT 09/17/2024 9:18 AM CDT Valerie Cooper MD PhD LAB POCT ORDERABLES - DEVICE Final Result Performing Organization Address [facility] Co de Phone Number [facility] [place] [address] * (ABNORMAL) POCT glucose (09/17/2024 8:42 AM CDT) Glucose, POC 64(L) 70 - 199 mg/dL Blood 09/17/2024 8:42 AM CDT 09/17/2024 8:42 AM CDT Valerie Cooper MD PhD LAB POCT ORDERABLES - DEVICE Final Result Performing Organization Address City/[facility] [place] [address] * (ABNORMAL) POCT glucose (09/17/2024 7:57 AM CDT) Glucose, POC 68(L) 70 - 199 mg/dL Blood 09/17/2024 7:57 AM CDT 09/17/2024 7:57 AM CDT Valerie Cooper MD PhD LAB POCT ORDERABLES - [place] [address] * POCT glucose (09/17/2024 1:34 AM CDT) Glucose, POC 102 70 - 199 mg/dL Blood 09/17/2024 1:34 AM CDT 09/17/2024 1:34 AM CDT Valerie Cooper MD PhD LAB POCT ORDERABLES - DEVICE Final Result Performing Organization Address City/[facility]/ZIP Co de Phone Number [facility] [place] [address] * POCT glucose (09/17/2024 1:25 AM CDT) Glucose, POC 74 70 - 199 mg/dL Blood 09/17/2024 1:25 AM CDT 09/17/2024 1:25 AM CDT Valerie Cooper MD PhD LAB POCT ORDERABLES - DEVICE Final Result Performing Organization Address City/[facility]/[place] [address] * POCT glucose (09/17/2024 1:19 AM CDT) Glucose, POC 81 70 - 199 mg/dL Blood 09/17/2024 1:19 AM CDT 09/17/2024 1:19 AM CDT Valerie Cooper MD PhD LAB POCT ORDERABLES - DEVICE Final Result Performing Organization Address City/[facility]/ZIP Co de Phone Number [facility] [place] [address] * POCT glucose (09/16/2024 9:23 PM CDT) Glucose, POC 80 70 - 199 mg/dL Blood 09/16/2024 9:23 PM CDT 09/16/2024 9:23 PM CDT Valerie Cooper MD PhD LAB POCT ORDERABLES - DEVICE Final Result Performing Organization Address [facility] de Phone Number [facility] [place] [address] * (ABNORMAL) eGFR (09/16/2024 9:17 PM CDT) [facility] eGFR 14(L) >=60 mL/min/1. 73 m2 Comment: Interpretive Data Reference Interval Normal >/= 90 mL/min/1.73m2 Mildly decreased* 60 - 89 mL/min/1.73m2 Mildly to moderately decreased 45 - 59 mL/min/1.73m2 Moderately to severely decreased 30 - 44 mL/min/1.73m2 Severely decreased 15 - 29 mL/min/1.73m2 Kidney Failure < 15 mL/min/1.73m2 *Relative to young adult level Estimated glomerular filtration rate is determined by the 2020 CKD-EPI equation recommended by the National Kidney Foundation (A Unifying Approach to GFR Estimation: Recommendations of the NKF-ASK Task Force on Reassessing the Inclusion of Race in Diagnosing Kidney Disease, JASN 202). The CKD-EPI equation should not be used for patients with unstable renal function and has not been validated in children and those over 70. Current interpretive data was last reviewed 2021. Blood 09/16/2024 9:17 PM CDT 09/16/2024 9:56 PM CDT us Kirk Gaming MD LAB BLOOD ORDERABLES F inal Result [facility] Department [place] [address] * (ABNORMAL) Differential, auto (09/16/2024 9:17 PM CDT) Neutrophil abs 6.12 1.50 - 6.50 K/cumm Imm gran abs 0.07 0.00 - 0.10 K/cumm [facility] [employer] [facility] Lymphocyte abs 2.70 0.80 - 3.30 K/cumm [employer] [facility] Monocyte abs 0.88(H) 0.20 - 0.80 K/cumm [facility] Eosinophil abs 0.13 0.00 - 0.50 K/cumm [facility] Basophil abs 0.05 0.00 - 0.10 K/cumm [facility] Neutrophil pct 61.6 % [facility] Comment: Interpretive Data Percent cell count reference ranges are not reported, since discordance with absolute values may lead to misinterpretation of CBC data. Current Interpretive Data was last revised on 2017. Imm gran pct 0.7 % [facility] Comment: Interpretive Data Percent cell count reference ranges are not reported, since discordance with absolute values may lead to misinterpretation of CBC data. Current Interpretive Data was last revised on 2017. Lymphocyte pct 27.1 % [facility] Comment: Interpretive Data Percent cell count reference ranges are not reported, since discordance with absolute values may lead to misinterpretation of CBC data. Current Interpretive Data was last revised on 2017. Monocyte pct 8.8 % [facility] Comment: Interpretive Data Percent cell count reference ranges are not reported, since discordance with absolute values may lead to misinterpretation of CBC data. Current Interpretive Data was last revised on 2017. Eosinophil pct 1.3 % [facility] Comment: Interpretive Data Percent cell count reference ranges are not reported, since discordance with absolute values may lead to misinterpretation of CBC data. Current Interpretive Data was last revised on 2017. Basophil pct 0.5 % [facility] Comment: Interpretive Data Percent cell count reference ranges are not reported, since discordance with absolute values may lead to misinterpretation of CBC data. Current Interpretive Data was last revised on 2017. Blood 09/16/2024 9:17 PM CDT 09/16/2024 9:56 PM CDT Elizabet Dickey MD LAB BLOOD ORDERABLES F inal Result [facility] Department [place] [address] * (ABNORMAL) CBC with auto differential (09/16/2024 9:17 PM CDT) WBC 9.95(H) 3.80 - 9.90 K/cumm Hgb 9.6(L) 11.9 - 15.5 g/dL [facility] Hct 30.7(L) 35.6 - 45.5 % [facility] Plt 285 150 - 400 K/cumm [facility] MPV 10.6 9.1 - 12.3 fL [facility] RBC 3.47(L) 3.90 - 5.20 M/cumm [facility] MCV 88.5 81.3 - 96.4 fL [facility] MCH 27.7 27.1 - 33.3 pg [facility] MCHC 31.3(L) 32.3 - 35.7 g/dL [facility] RDW CV 18.5(H) 11.1 - 14.9 % [facility] RDW SD 56.5(H) 35.7 - 48.1 fL [facility] NRBC abs 0.00 0.00 - 0.01 K/cumm [facility] Blood 09/16/2024 9:17 PM CDT 09/16/2024 9:56 PM CDT us Elizabet Dickey MD LAB BLOOD ORDERABLES F inal Result Performing Organization Address City/[facility] Co de Phone Number [facility] [place] [address] * Phosphorus (09/16/2024 9:17 PM CDT) [facility] [facility] Phosphorus, pl 2.6 2.3 - 4.5 mg/dL Blood 09/16/2024 9:17 PM CDT 09/16/2024 9:56 PM CDT Result [facility] Kirk Gaming MD LAB BLOOD ORDERABLES F inal Result Performing Organization Address [facility] Co de Phone Number [facility] [place] [address] * Bilirubin, direct (09/16/2024 9:17 PM CDT) [facility] Bilirubin, direct 0.2 0.1 - 0.3 mg/dL Blood 09/16/2024 9:17 PM CDT 09/16/2024 9:56 PM CDT Result [facility] Kirk Gaming MD LAB BLOOD ORDERABLES F inal Result Performing Organization Address [facility] Co de Phone Number [facility] [place] [address] * (ABNORMAL) Comprehensive metabolic panel (09/16/2024 9:17 PM CDT) [facility] Sodium 134(L) 135 - 145 mmol/L Potassium, pl 4.3 3.3 - 4.9 mmol/L [facility] Chloride 100 97 - 110 mmol/L [facility] CO2 27 22 - 32 mmol/L [facility] Anion gap 7 2 - 15 mmol/L [facility] BUN 21 6 - 25 mg/dL [facility] Creatinine 4.09(H) 0.60 - 1.10 mg/dL [facility] Glucose 83 70 - 199 mg/dL [facility] Comment: Interpretive Data Fasting glucose >/= 126 mg/dl is diagnostic for diabetes. Fasting is defined as no caloric intake for at least 8 hours. Fasting glucose between 100 mg/dl to 125 mg/dl is diagnostic of prediabetes. In a patient with classic symptoms of hyperglycemia or hyperglycemic crisis, a random glucose >/= 200 mg/dl is diagnostic for diabetes. In the absence of unequivocal hyperglycemia, results should be confirmed by repeat testing. The classification and Diagnosis of Diabetes Diabetes Care 2021; 46: S19-S40. Current interpretive data was last revised 2022. Calcium 8.3(L) 8.5 - 10.3 mg/dL [facility] Bilirubin, total 0.5 0.1 - 1.2 mg/dL [facility] Protein, pl 8.2 6.5 - 8.5 g/dL [facility] Albumin 2.1(L) 3.5 - 5.0 g/dL [facility] Alk phos 111 40 - 130 Units/L [facility] ALT 9 7 - 45 Units/L [facility] AST 17 10 - 45 Units/L [facility] Blood 09/16/2024 9:17 PM CDT 09/16/2024 9:56 PM CDT us Kirk Gaming MD LAB BLOOD ORDERABLES F inal Result Performing Organization Address City/[facility]/ZIP Co de Phone Number [facility] Department [place] [address] * POCT glucose (09/16/2024 6:39 PM CDT) [facility] Signature Glucose, POC 96 70 - 199 mg/dL Comment:Glu2: RN/MD Notified Glucose comment 1 Glu2: RN/MD Notified [facility] Blood 09/16/2024 6:39 PM CDT 09/16/2024 6:39 PM CDT us Valerie Cooper MD PhD LAB POCT ORDERABLES - [place] [address] * (ABNORMAL) POCT glucose (09/16/2024 6:09 PM CDT) Glucose, POC 67(L) 70 - 199 mg/dL Blood 09/16/2024 6:09 PM CDT 09/16/2024 6:09 PM CDT Valerie Cooper MD PhD LAB POCT ORDERABLES - DEVICE Final Result Performing Organization Address [facility]/[place] [address] * POCT glucose (09/16/2024 12:08 PM CDT) Glucose, POC 72 70 - 199 mg/dL Blood 09/16/2024 12:0 8 PM CDT 09/16/2024 12:08 PM CDT Valerie Cooper MD PhD LAB POCT ORDERABLES - DEVICE Final Result Performing Organization Address [facility]/[place] [address] * POCT glucose (09/16/2024 7:54 AM CDT) Glucose, POC 72 70 - 199 mg/dL Blood 09/16/2024 7:54 AM CDT 09/16/2024 7:54 AM CDT Valerie Cooper MD PhD LAB POCT ORDERABLES - DEVICE Final Result Performing Organization Address [facility]/ZIP Co de Phone Number [facility] [place] [address] * POCT glucose (09/15/2024 9:09 PM CDT) Glucose, POC 103 70 - 199 mg/dL Blood 09/15/2024 9:09 PM CDT 09/15/2024 9:09 PM CDT Valerie Cooper MD PhD LAB POCT ORDERABLES - DEVICE Final Result Performing Organization Address [facility] Co de Phone Number [facility] [place] [address] * POCT glucose (09/15/2024 6:04 PM CDT) Glucose, POC 85 70 - 199 mg/dL Comment:Glu2: RN/MD Notified Glucose comment 1 Glu2: RN/MD Notified [facility] Blood 09/15/2024 6:04 PM CDT 09/15/2024 6:04 PM CDT Valerie Cooper MD PhD LAB POCT ORDERABLES - DEVICE Final Result Performing Organization Address [facility] Co de Phone Number [facility] [place] [address] * POCT glucose (09/15/2024 1:04 PM CDT) Glucose, POC 102 70 - 199 mg/dL Blood 09/15/2024 1:04 PM CDT 09/15/2024 1:04 PM CDT Valerie Cooper MD PhD LAB POCT ORDERABLES - DEVICE Final Result Performing Organization Address [facility] Co de Phone Number [facility] [place] [address] * (ABNORMAL) POCT glucose (09/15/2024 12:27 PM CDT) Glucose, POC 56(L) 70 - 199 mg/dL Blood 09/15/2024 12:2 7 PM CDT 09/15/2024 12:27 PM CDT Valerie Cooper MD PhD LAB POCT ORDERABLES - DEVICE Final Result Performing Organization Address [facility] Co de Phone Number [facility] [place] [address] * POCT glucose (09/14/2024 9:26 PM CDT) Glucose, POC 117 70 - 199 mg/dL Blood 09/14/2024 9:26 PM CDT 09/14/2024 9:26 PM CDT Valerie Cooper MD PhD LAB POCT ORDERABLES - DEVICE Final Result Performing Organization Address [facility] de Phone Number [facility] [place] [address] * POCT glucose (09/14/2024 7:00 PM CDT) Glucose, POC 96 70 - 199 mg/dL Blood 09/14/2024 7:00 PM CDT 09/14/2024 7:00 PM CDT Valerie Cooper MD PhD LAB POCT ORDERABLES - DEVICE Final Result Performing Organization Address [facility] Co de Phone Number [facility] [place] [address] * POCT glucose (09/14/2024 6:48 PM CDT) Glucose, POC 94 70 - 199 mg/dL Blood 09/14/2024 6:48 PM CDT 09/14/2024 6:48 PM CDT Valerie Cooper MD PhD LAB POCT ORDERABLES - DEVICE Final Result Performing Organization Address [facility] Co de Phone Number [facility] [place] [address] * POCT glucose (09/14/2024 2:34 PM CDT) Glucose, POC 119 70 - 199 mg/dL Blood 09/14/2024 2:34 PM CDT 09/14/2024 2:34 PM CDT us Valerie Cooper MD PhD LAB POCT ORDERABLES - DEVICE Final Result Performing Organization Address [facility] Co de Phone Number [facility] [place] [address] * POCT glucose (09/14/2024 12:45 PM CDT) Glucose, POC 98 70 - 199 mg/dL Blood 09/14/2024 12:4 5 PM CDT 09/14/2024 12:45 PM CDT us Valerie Cooper MD PhD LAB POCT ORDERABLES - DEVICE Final Result Performing Organization Address [facility] [place] [address] * (ABNORMAL) POCT glucose (09/14/2024 12:17 PM CDT) Glucose, POC 64(L) 70 - 199 mg/dL Comment:Glu2: RN/MD Notified Glucose comment 1 Glu2: RN/MD Notified [facility] Blood 09/14/2024 12:1 7 PM CDT 09/14/2024 12:17 PM CDT us Valerie Cooper MD PhD LAB POCT ORDERABLES - DEVICE Final Result Performing Organization Address [facility]/ZIP Co de Phone Number [facility] Department [place] [address] * POCT glucose (09/14/2024 9:30 AM CDT) [facility] Glucose, POC 121 70 - 199 mg/dL Blood 09/14/2024 9:30 AM CDT 09/14/2024 9:30 AM CDT Valerie Cooper MD PhD LAB POCT ORDERABLES - DEVICE Final Result Performing Organization Address [facility] [place] [place] [address] * (ABNORMAL) POCT glucose (09/14/2024 8:15 AM CDT) [facility] Glucose, POC 69(L) 70 - 199 mg/dL Comment:Glu2: RN/MD Notified Glucose comment 1 Glu2: RN/MD Notified [facility] Blood 09/14/2024 8:15 AM CDT 09/14/2024 8:15 AM CDT Valerie Cooper MD PhD LAB POCT ORDERABLES - DEVICE Final Result Performing Organization Address [facility] [place] [place] [address] * (ABNORMAL) eGFR (09/13/2024 9:10 PM CDT) [facility] eGFR 14(L) >=60 mL/min/1. 73 m2 Comment: Interpretive Data Reference Interval Normal >/= 90 mL/min/1.73m2 Mildly decreased* 60 - 89 mL/min/1.73m2 Mildly to moderately decreased 45 - 59 mL/min/1.73m2 Moderately to severely decreased 30 - 44 mL/min/1.73m2 Severely decreased 15 - 29 mL/min/1.73m2 Kidney Failure < 15 mL/min/1.73m2 *Relative to young adult level Estimated glomerular filtration rate is determined by the 2020 CKD-EPI equation recommended by the National Kidney Foundation (A Unifying Approach to GFR Estimation: Recommendations of the NKF-ASK Task Force on Reassessing the Inclusion of Race in Diagnosing Kidney Disease, JASN 2020). The CKD-EPI equation should not be used for patients with unstable renal function and has not been validated in children and those over 70. Current interpretive data was last reviewed 2021. Blood 09/13/2024 9:10 PM CDT 09/13/2024 9:51 PM CDT us Kirk Gaming MD LAB BLOOD ORDERABLES F inal Result Performing Organization Address [facility]/ZIP Co de Phone Number [facility] [place] [address] * (ABNORMAL) Reticulocyte Count (09/13/2024 9:10 PM CDT) Retics, absolute 66 20 - 87 K/cumm Retics 1.9 0.4 - 2.9 % [facility] Reticulocyte Hgb 29.0(L) 30.5 - 38.0 pg [facility] Blood 09/13/2024 9:10 PM CDT 09/13/2024 9:51 PM CDT us Valerie Cooper MD PhD LAB BLOOD ORDERABLES Final Result Performing Organization Address [facility]/ZIP Co de Phone Number [facility] Department [place] [address] * (ABNORMAL) CBC without differential (09/13/2024 9:10 PM CDT) WBC 11.33(H) 3.80 - 9.90 K/cumm Hgb 9.6(L) 11.9 - 15.5 g/dL [facility] Hct 31.3(L) 35.6 - 45.5 % [facility] Plt 312 150 - 400 K/cumm [facility] MPV 11.6 9.1 - 12.3 fL [facility] RBC 3.54(L) 3.90 - 5.20 M/cumm [facility] MCV 88.4 81.3 - 96.4 fL [facility] MCH 27.1 27.1 - 33.3 pg [facility] MCHC 30.7(L) 32.3 - 35.7 g/dL [facility] RDW CV 17.5(H) 11.1 - 14.9 % [facility] RDW SD 55.4(H) 35.7 - 48.1 fL [facility] NRBC abs 0.00 0.00 - 0.01 K/cumm [facility] Blood 09/13/2024 9:10 PM CDT 09/13/2024 9:51 PM CDT Valerie Cooper MD PhD LAB BLOOD ORDERABLES Final Result Performing Organization Address [facility]/ZIP Co de Phone Number [facility] Department [place] [address] * (ABNORMAL) Ferritin (09/13/2024 9:10 PM CDT) Pathologist [facility] Ferritin 968(H) 13 - 150 ng/mL Blood 09/13/2024 9:10 PM CDT 09/13/2024 9:51 PM CDT Valerie Cooper MD PhD LAB BLOOD ORDERABLES Final Result Performing Organization Address [facility]/ZIP Co de Phone Number [facility] Department [place] [address] * (ABNORMAL) Renal function panel (09/13/2024 9:10 PM CDT) Sodium 131(L) 135 - 145 mmol/L Potassium, pl 4.1 3.3 - 4.9 mmol/L [facility] Chloride 96(L) 97 - 110 mmol/L [facility] CO2 28 22 - 32 mmol/L [facility] Anion gap 7 2 - 15 mmol/L [facility] BUN 18 6 - 25 mg/dL [facility] Creatinine 4.20(H) 0.60 - 1.10 mg/dL [facility] Glucose 120 70 - 199 mg/dL [facility] Comment: Interpretive Data Fasting glucose >/= 126 mg/dl is diagnostic for diabetes. Fasting is defined as no caloric intake for at least 8 hours. Fasting glucose between 100 mg/dl to 125 mg/dl is diagnostic of prediabetes. In a patient with classic symptoms of hyperglycemia or hyperglycemic crisis, a random glucose >/= 200 mg/dl is diagnostic for diabetes. In the absence of unequivocal hyperglycemia, results should be confirmed by repeat testing. The classification and Diagnosis of Diabetes Diabetes Care 202; 46: S19-S40. Current interpretive data was last revised 2022. Calcium 8.2(L) 8.5 - 10.3 mg/dL [facility] Phosphorus, pl 2.6 2.3 - 4.5 mg/dL [facility] Albumin 2.1(L) 3.5 - 5.0 g/dL [facility] Blood 09/13/2024 9:10 PM CDT 09/13/2024 9:51 PM CDT us Kirk Gaming MD LAB BLOOD ORDERABLES F inal Result Performing Organization Address [facility]/ZIP Co de Phone Number [facility] Department [place] [address] * POCT glucose (09/13/2024 8:58 PM CDT) Glucose, POC 125 70 - 199 mg/dL Blood 09/13/2024 8:58 PM CDT 09/13/2024 8:58 PM CDT us Valerie Cooper MD PhD LAB POCT ORDERABLES - DEVICE Final Result Performing Organization Address [facility]/ZIP Co de Phone Number [facility] Department [place] [address] * POCT glucose (09/13/2024 5:11 PM CDT) Glucose, POC 87 70 - 199 mg/dL Blood 09/13/2024 5:11 PM CDT 09/13/2024 5:11 PM CDT us Valerie Cooper MD PhD LAB POCT ORDERABLES - DEVICE Final Result Performing Organization Address [facility] Co de Phone Number [facility] [place] [address] * POCT glucose (09/13/2024 12:42 PM CDT) Glucose, POC 77 70 - 199 mg/dL Blood 09/13/2024 12:4 2 PM CDT 09/13/2024 12:42 PM CDT Valerie Cooper MD PhD LAB POCT ORDERABLES - DEVICE Final Result Performing Organization Address [facility] Co de Phone Number [facility] [place] [address] * POCT glucose (09/13/2024 8:30 AM CDT) Glucose, POC 74 70 - 199 mg/dL Blood 09/13/2024 8:30 AM CDT 09/13/2024 8:30 AM CDT Valerie Cooper MD PhD LAB POCT ORDERABLES - DEVICE Final Result Performing Organization Address [facility] Co de Phone Number [facility] [place] [address] * POCT glucose (09/12/2024 8:51 PM CDT) Glucose, POC 88 70 - 199 mg/dL Blood 09/12/2024 8:51 PM CDT 09/12/2024 8:51 PM CDT Valerie Cooper MD PhD LAB POCT ORDERABLES - DEVICE Final Result Performing Organization Address [facility] Co de Phone Number [facility] [place] [address] * POCT glucose (09/12/2024 6:54 PM CDT) Glucose, POC 140 70 - 199 mg/dL Blood 09/12/2024 6:54 PM CDT 09/12/2024 6:54 PM CDT Valerie Cooper MD PhD LAB POCT ORDERABLES - DEVICE Final Result Performing Organization Address [facility] [place] [address] * POCT glucose (09/12/2024 5:13 PM CDT) Glucose, POC 74 70 - 199 mg/dL Blood 09/12/2024 5:13 PM CDT 09/12/2024 5:13 PM CDT Valerie Cooper MD PhD LAB POCT ORDERABLES - DEVICE Final Result Performing Organization Address [facility]/ZIP Co de Phone Number [facility] [place] [address] * POCT glucose (09/12/2024 12:37 PM CDT) Glucose, POC 73 70 - 199 mg/dL Blood 09/12/2024 12:3 7 PM CDT 09/12/2024 12:37 PM CDT Valerie Cooper MD PhD LAB POCT ORDERABLES - DEVICE Final Result Performing Organization Address [facility]/ZIP Co de Phone Number [facility] [place] [address] * POCT glucose (09/12/2024 9:59 AM CDT) Glucose, POC 74 70 - 199 mg/dL Blood 09/12/2024 9:59 AM CDT 09/12/2024 9:59 AM CDT us Valerie Cooper MD PhD LAB POCT ORDERABLES - DEVICE Final Result Performing Organization Address [facility]/ZIP Co de Phone Number [facility] Department [place] [address] * (ABNORMAL) eGFR (09/11/2024 10:32 PM CDT) Pathologist [facility] eGFR 14(L) >=60 mL/min/1. 73 m2 Comment: Interpretive Data Reference Interval Normal >/= 90 mL/min/1.73m2 Mildly decreased* 60 - 89 mL/min/1.73m2 Mildly to moderately decreased 45 - 59 mL/min/1.73m2 Moderately to severely decreased 30 - 44 mL/min/1.73m2 Severely decreased 15 - 29 mL/min/1.73m2 Kidney Failure < 15 mL/min/1.73m2 *Relative to young adult level Estimated glomerular filtration rate is determined by the 2020 CKD-EPI equation recommended by the National Kidney Foundation (A Unifying Approach to GFR Estimation: Recommendations of the NKF-ASK Task Force on Reassessing the Inclusion of Race in Diagnosing Kidney Disease, JASN 2020). The CKD-EPI equation should not be used for patients with unstable renal function and has not been validated in children and those over 70. Current interpretive data was last reviewed 2021. Blood 09/11/2024 10:3 2 PM CDT 09/11/2024 11:21 PM CDT us Kirk Gaming MD LAB BLOOD ORDERABLES F inal Result Performing Organization Address [facility]/ZIP Co de Phone Number [facility] Department [place] [address] * (ABNORMAL) Thyroid Function [place] (09/11/2024 10:32 PM CDT) [facility] TSH 8.58(H) 0.30 - 4.20 mcIUnit/mL Blood 09/11/2024 10:3 2 PM CDT 09/11/2024 11:21 PM CDT Valerie Cooper MD PhD LAB BLOOD ORDERABLES Final Result Performing Organization Address [facility]/ZIP Co de Phone Number [facility] [place] [address] * T4, free (09/11/2024 10:32 PM CDT) [facility] Free T4 1.30 0.90 - 1.70 ng/dL Blood 09/11/2024 10:3 2 PM CDT 09/11/2024 11:21 PM CDT Narrative [facility] - 09/12/2024 4:41 PM CDT This test was reflexed from a TSH result. Valerie Cooper MD PhD LAB BLOOD ORDERABLES Edited Result - Final Performing Organization Address [facility] Co de Phone Number [facility] [place] [address] * (ABNORMAL) Renal function panel (09/11/2024 10:32 PM CDT) [facility] Sodium 134(L) 135 - 145 mmol/L Potassium, pl 4.7 3.3 - 4.9 mmol/L [facility] Chloride 96(L) 97 - 110 mmol/L [facility] CO2 29 22 - 32 mmol/L [facility] Anion gap 9 2 - 15 mmol/L [facility] BUN 19 6 - 25 mg/dL [facility] Creatinine 4.31(H) 0.60 - 1.10 mg/dL [facility] Glucose 71 70 - 199 mg/dL [facility] Comment: Interpretive Data Fasting glucose >/= 126 mg/dl is diagnostic for diabetes. Fasting is defined as no caloric intake for at least 8 hours. Fasting glucose between 100 mg/dl to 125 mg/dl is diagnostic of prediabetes. In a patient with classic symptoms of hyperglycemia or hyperglycemic crisis, a random glucose >/= 200 mg/dl is diagnostic for diabetes. In the absence of unequivocal hyperglycemia, results should be confirmed by repeat testing. The classification and Diagnosis of Diabetes Diabetes Care 2021; 46: S19-S40. Current interpretive data was last revised 2022. Calcium 8.1(L) 8.5 - 10.3 mg/dL [facility] Phosphorus, pl 2.6 2.3 - 4.5 mg/dL [facility] Albumin 2.0(L) 3.5 - 5.0 g/dL [facility] Blood 09/11/2024 10:3 2 PM CDT 09/11/2024 11:21 PM CDT Kirk Gaming MD LAB BLOOD ORDERABLES F inal Result Performing Organization Address [facility]/ZIP Co de Phone Number [facility] Department [place] [address] * POCT glucose (09/11/2024 8:15 PM CDT) Glucose, POC 90 70 - 199 mg/dL Blood 09/11/2024 8:15 PM CDT 09/11/2024 8:15 PM CDT us Valerie Cooper MD PhD LAB POCT ORDERABLES - DEVICE Final Result [facility] [place] [address] * POCT glucose (09/11/2024 5:20 PM CDT) Glucose, POC 147 70 - 199 mg/dL Blood 09/11/2024 5:20 PM CDT 09/11/2024 5:20 PM CDT Valerie Cooper MD PhD LAB POCT ORDERABLES - DEVICE Final Result Performing Organization Address [facility] Co de Phone Number [facility] [place] [address] * POCT glucose (09/11/2024 2:00 PM CDT) Glucose, POC 81 70 - 199 mg/dL Blood 09/11/2024 2:00 PM CDT 09/11/2024 2:00 PM CDT Valerie Cooper MD PhD LAB POCT ORDERABLES - DEVICE Final Result Performing Organization Address [facility] Co de Phone Number [facility] [place] [address] * POCT glucose (09/11/2024 6:05 AM CDT) Glucose, POC 98 70 - 199 mg/dL Blood 09/11/2024 6:05 AM CDT 09/11/2024 6:05 AM CDT Valerie Cooper MD PhD LAB POCT ORDERABLES - DEVICE Final Result Performing Organization Address [facility] Co de Phone Number [facility] [place] [address] * POCT glucose (09/11/2024 5:30 AM CDT) Glucose, POC 70 70 - 199 mg/dL Blood 09/11/2024 5:30 AM CDT 09/11/2024 5:30 AM CDT Valerie Cooper MD PhD LAB POCT ORDERABLES - DEVICE Final Result Performing Organization Address [facility] Co de Phone Number [facility] [place] [address] * Blood culture Blood (09/10/2024 11:04 PM CDT) Report Final Report: No growth Blood 09/10/2024 11:0 4 PM CDT 09/11/2024 12:43 AM CDT Narrative [facility] - 09/15/2024 7:00 AM CDT Collection->Peripheral 1. Blood cultures are incubated for 4 days on a continuously monitored blood culture system. The first report of a negative culture is issued within 24 hours of receipt of the specimen in the laboratory. 2. Positive culture results are reported as soon as they are detected. 3. The most important factor for detection of microbes in the setting of bloodstream infection is the volume of blood submitted for culture. Failure to collect an optimal blood volume can result in false negative blood cultures. 4. For pediatric patients, the recommended blood volume to collect follows a weight based strategy. See the electronic test catalog for collection instructions. 5. For positive blood cultures, a rapid molecular test may be performed for organism identification using the [employer]amod ePlex blood culture identification panel for gram positive (BCID-GP) and gram negative (BCID-GN) organisms. This nucleic acid amplification test detects microbial DNA in positive blood culture broth. This assay has been cleared by the [place] Food and Drug Administration and its performance characteristics have been verified by the [facility] Microbiology Laboratory. For questions about this culture, contact the Microbiology Laboratory at [phone]. Interpretive data was last revised on 24. us Kirk Gaming MD LAB MICROBIOLOGY - GEN ERAL ORDERABLES Final Result [facility] Department [place] [address] * Respiratory pathogen panel Nasopharyngeal (09/10/2024 8:50 PM CDT) Influenza A RNA Not Detected Not Detected Influenza B RNA Not Detected Not Detected [facility] RSV RNA Not Detected Not Detected [facility] COVID-19 RNA Not Detected Not Detected [facility] Coronavirus 229E RNA Not Detected Not Detected [facility] Coronavirus HKU1 RNA Not Detected Not Detected [facility] Coronavirus NL63 RNA Not Detected Not Detected [facility] Coronavirus OC43 RNA Not Detected Not Detected [facility] Adenovirus DNA Not Detected Not Detected [facility] Metapneumovirus RNA Not Detected Not Detected [facility] Rhinovirus/Enterov irus RNA Not Detected Not Detected [facility] Parainfluenza 1 RNA Not Detected Not Detected [facility] Parainfluenza 2 RNA Not Detected Not Detected [facility] Parainfluenza 3 RNA Not Detected Not Detected [facility] Parainfluenza 4 RNA Not Detected Not Detected [facility] B. pertussis DNA Not Detected Not Detected [facility] B. parapertussis DNA Not Detected Not Detected [facility] C. pneumoniae DNA Not Detected Not Detected [facility] M. pneumoniae DNA Not Detected Not Detected [facility] Nasopharyngeal 09/10/2024 8: 50 PM CDT 09/10/2024 9:17 PM CDT Narrative [facility] - 09/10/2024 10:22 PM CDT Is the Patient experiencing symptoms consistent with COVID?->Yes Surveillance testing for transplant patient?->No Interpretive Data The [employer] FilmArray Respiratory Panel (RP2.1) assay is a multiplexed real-time PCR based nucleic acid test capable of simultaneous qualitative detection and identification of multiple respiratory viral and bacterial nucleic acids, including SARS Coronavirus 2 (the causative agent of COVID-19). The following bacteria, viruses and virus subtypes can be identified using the FilmArray RP2.1 assay: Bordetella pertussis, Bordetella parapertussis, Chlamydia pneumoniae, Mycoplasma pneumoniae, Adenovirus, SARS Coronavirus 2, seasonal coronaviruses (Coronavirus HKU1, Coronavirus NL63, Coronavirus 229E, and Coronavirus OC43), Influenza A, Influenza A subtype H1, Influenza A subtype H3, Influenza A subtype 2009 H1, Influenza B, Metapneumovirus, Parainfluenza 1, Parainfluenza 2, Parainfluenza 3, Parainfluenza 4, RSV, Rhinovirus/Enterovirus. Due to the genetic similarity between human Rhinovirus and Enterovirus, the FilmArray RP2.1 assay cannot reliably differentiate them. Coronavirus OC43 may cross-react with some isolates of Coronavirus HKU1. A dual positive result may be due to cross-reactivity or may indicate a co- infection. The detection and identification of specific viral and bacterial nucleic acids from individuals exhibiting signs and symptoms of a respiratory infection aids in the diagnosis of respiratory infection if used in conjunction with other clinical and epidemiological information. The results of this test should not be used as the sole basis for diagnosis, treatment, or other management decisions. Negative results in the setting of a respiratory illness may be due to infection with pathogens that are not detected by this test. Positive results do not rule out infection/co-infection with other organisms. The agent(s) detected by the FilmArray RP2.1 may not be the definite cause of disease. Additional testing (lab, imaging, etc.) may be necessary when evaluating a patient with possible respiratory tract infection. The FilmArray RP2.1 assay has FDA clearance for testing of STAFF RADIOLOGIST swabs. The performance of additional specimen types has been assessed by the performing laboratory. The performance characteristics of this assay have been determined by [facility] Molecular Infectious Disease Laboratory. Current interpretive data was last revised on 22. Kirk Gaming MD LAB MICROBIOLOGY - GEN ERAL ORDERABLES Final Result [facility] [place] [address] * POCT glucose (09/10/2024 8:35 PM CDT) Glucose, POC 83 70 - 199 mg/dL Blood 09/10/2024 8:35 PM CDT 09/10/2024 8:35 PM CDT Kirk Gaming MD LAB POCT ORDERABLES - DEVICE Final Result [facility] [place] [address] * XR Chest 1 View (09/10/2024 11:32 AM CDT) Anatomical Region Laterality Modality Body, Chest N/A Computed Radiogr aphy 09/10/2024 11:5 3 AM CDT Impressions 09/10/2024 11:59 AM CDT Comparison is made to chest radiograph 08/19/2024. Two right internal jugular central venous catheters terminate in the superior cavoatrial junction and right atrium. Unchanged interstitial and airspace opacities throughout both lungs which may represent pulmonary edema and evolving septic emboli. There are small bilateral right greater than left pleural effusions with underlying atelectasis. No pneumothorax. The cardiomediastinal silhouette is unchanged. Dictated by: Ham Faith MD The radiology attending physician has personally reviewed this study, and had reviewed and/or edited this written report and agrees with it. Electronically signed by: Delmis Warren M.D. Narrative 09/10/2024 11:59 AM CDT EXAMINATION: 1 view chest radiograph Procedure Note Delmis Warern MD - 09/10/2024 EXAMINATION: 1 view chest radiograph IMPRESSION: Comparison is made to chest radiograph 08/19/2024. Two right internal jugular central venous catheters terminate in the superior cavoatrial junction and right atrium. Unchanged interstitial and airspace opacities throughout both lungs which may represent pulmonary edema and evolving septic emboli. There are small bilateral right greater than left pleural effusions with underlying atelectasis. No pneumothorax. The cardiomediastinal silhouette is unchanged. Dictated by: Ham Faith MD The radiology attending physician has personally reviewed this study, and had reviewed and/or edited this written report and agrees with it. Electronically signed by: Delmis Warren M.D. us Kirk Gaming MD IMG XR PROCEDURES Florinda l Result * POCT glucose (09/10/2024 8:54 AM CDT) [facility] Signature Glucose, POC 84 70 - 199 mg/dL Blood 09/10/2024 8:54 AM CDT 09/10/2024 8:54 AM CDT us Kirk Gaming MD LAB POCT ORDERABLES - DEVICE Final Result Performing Organization Address [facility] Co de Phone Number [facility] [place] [address] * POCT glucose (09/10/2024 4:52 AM CDT) Glucose, POC 103 70 - 199 mg/dL Blood 09/10/2024 4:52 AM CDT 09/10/2024 4:52 AM CDT Kirk Gaming MD LAB POCT ORDERABLES - DEVICE Final Result Performing Organization Address [facility] de Phone Number [facility] [place] [address] * (ABNORMAL) POCT glucose (09/10/2024 3:04 AM CDT) [facility] Glucose, POC 65(L) 70 - 199 mg/dL Blood 09/10/2024 3:04 AM CDT 09/10/2024 3:04 AM CDT Kirk Gaming MD LAB POCT ORDERABLES - DEVICE Final Result Performing Organization Address [facility] de Phone Number [facility] [place] [address] * (ABNORMAL) eGFR (09/09/2024 10:54 PM CDT) eGFR 11(L) >=60 mL/min/1. 73 m2 Comment: Interpretive Data Reference Interval Normal >/= 90 mL/min/1.73m2 Mildly decreased* 60 - 89 mL/min/1.73m2 Mildly to moderately decreased 45 - 59 mL/min/1.73m2 Moderately to severely decreased 30 - 44 mL/min/1.73m2 Severely decreased 15 - 29 mL/min/1.73m2 Kidney Failure < 15 mL/min/1.73m2 *Relative to young adult level Estimated glomerular filtration rate is determined by the 2020 CKD-EPI equation recommended by the National Kidney Foundation (A Unifying Approach to GFR Estimation: Recommendations of the NKF-ASK Task Force on Reassessing the Inclusion of Race in Diagnosing Kidney Disease, JASN 202). The CKD-EPI equation should not be used for patients with unstable renal function and has not been validated in children and those over 70. Current interpretive data was last reviewed 2021. Blood 09/09/2024 10:5 4 PM CDT 09/09/2024 11:24 PM CDT us Kirk Gaming MD LAB BLOOD ORDERABLES F inal Result [facility] Department [place] [address] * (ABNORMAL) Differential, auto (09/09/2024 10:54 PM CDT) Neutrophil abs 10.52(H) 1.50 - 6.50 K/cumm Imm gran abs 0.11(H) 0.00 - 0.10 K/cumm [facility] Lymphocyte abs 2.89 0.80 - 3.30 K/cumm [facility] Monocyte abs 0.98(H) 0.20 - 0.80 K/cumm [facility] Eosinophil abs 0.13 0.00 - 0.50 K/cumm [facility] Basophil abs 0.05 0.00 - 0.10 K/cumm [facility] Neutrophil pct 71.7 % [facility] Comment: Interpretive Data Percent cell count reference ranges are not reported, since discordance with absolute values may lead to misinterpretation of CBC data. Current Interpretive Data was last revised on 2017. Imm gran pct 0.7 % [facility] Comment: Interpretive Data Percent cell count reference ranges are not reported, since discordance with absolute values may lead to misinterpretation of CBC data. Current Interpretive Data was last revised on 2017. Lymphocyte pct 19.7 % [facility] Comment: Interpretive Data Percent cell count reference ranges are not reported, since discordance with absolute values may lead to misinterpretation of CBC data. Current Interpretive Data was last revised on 2017. Monocyte pct 6.7 % [facility] Comment: Interpretive Data Percent cell count reference ranges are not reported, since discordance with absolute values may lead to misinterpretation of CBC data. Current Interpretive Data was last revised on 2017. Eosinophil pct 0.9 % [facility] Comment: Interpretive Data Percent cell count reference ranges are not reported, since discordance with absolute values may lead to misinterpretation of CBC data. Current Interpretive Data was last revised on 2017. Basophil pct 0.3 % [facility] Comment: Interpretive Data Percent cell count reference ranges are not reported, since discordance with absolute values may lead to misinterpretation of CBC data. Current Interpretive Data was last revised on 2017. Blood 09/09/2024 10:5 4 PM CDT 09/09/2024 11:24 PM CDT Elizabet Dickey MD LAB BLOOD ORDERABLES F inal Result [facility] Department [place] [address] * (ABNORMAL) CBC with auto differential (09/09/2024 10:54 PM CDT) WBC 14.68(H) 3.80 - 9.90 K/cumm Hgb 9.6(L) 11.9 - 15.5 g/dL [facility] Hct 30.8(L) 35.6 - 45.5 % [facility] Plt 205 150 - 400 K/cumm [facility] MPV 10.1 9.1 - 12.3 fL [facility] RBC 3.52(L) 3.90 - 5.20 M/cumm [facility] MCV 87.5 81.3 - 96.4 fL [facility] MCH 27.3 27.1 - 33.3 pg [facility] MCHC 31.2(L) 32.3 - 35.7 g/dL [facility] RDW CV 18.4(H) 11.1 - 14.9 % [facility] RDW SD 58.0(H) 35.7 - 48.1 fL [facility] NRBC abs 0.00 0.00 - 0.01 K/cumm [facility] Blood 09/09/2024 10:5 4 PM CDT 09/09/2024 11:24 PM CDT us Elizabet Dickey MD LAB BLOOD ORDERABLES F inal Result Performing Organization Address [facility] Co de Phone Number [facility] [place] [address] * Phosphorus (09/09/2024 10:54 PM CDT) Phosphorus, pl 2.7 2.3 - 4.5 mg/dL Blood 09/09/2024 10:5 4 PM CDT 09/09/2024 11:24 PM CDT us Kirk Gaming MD LAB BLOOD ORDERABLES F inal Result Performing Organization Address [facility] de Phone Number [facility] [place] [address] * Bilirubin, direct (09/09/2024 10:54 PM CDT) Bilirubin, direct 0.3 0.1 - 0.3 mg/dL Blood 09/09/2024 10:5 4 PM CDT 09/09/2024 11:24 PM CDT Kirk Gaming MD LAB BLOOD ORDERABLES F inal Result Performing Organization Address [facility] de Phone Number [facility] [place] [address] * (ABNORMAL) Comprehensive metabolic panel (09/09/2024 10:54 PM CDT) Sodium 133(L) 135 - 145 mmol/L Potassium, pl 4.6 3.3 - 4.9 mmol/L [facility] Chloride 96(L) 97 - 110 mmol/L [facility] CO2 28 22 - 32 mmol/L [facility] Anion gap 9 2 - 15 mmol/L [facility] BUN 22 6 - 25 mg/dL [facility] Creatinine 5.07(H) 0.60 - 1.10 mg/dL [facility] Glucose 76 70 - 199 mg/dL [facility] Comment: Interpretive Data Fasting glucose >/= 126 mg/dl is diagnostic for diabetes. Fasting is defined as no caloric intake for at least 8 hours. Fasting glucose between 100 mg/dl to 125 mg/dl is diagnostic of prediabetes. In a patient with classic symptoms of hyperglycemia or hyperglycemic crisis, a random glucose >/= 200 mg/dl is diagnostic for diabetes. In the absence of unequivocal hyperglycemia, results should be confirmed by repeat testing. The classification and Diagnosis of Diabetes Diabetes Care 2021; 46: S19-S40. Current interpretive data was last revised 2022. Calcium 8.1(L) 8.5 - 10.3 mg/dL [facility] Bilirubin, total 0.6 0.1 - 1.2 mg/dL [facility] Protein, pl 7.7 6.5 - 8.5 g/dL [facility] Albumin 1.9(L) 3.5 - 5.0 g/dL [facility] Alk phos 114 40 - 130 Units/L [facility] ALT 22 7 - 45 Units/L [facility] AST 23 10 - 45 Units/L [facility] Blood 09/09/2024 10:5 4 PM CDT 09/09/2024 11:24 PM CDT us Kirk Gaming MD LAB BLOOD ORDERABLES F inal Result [facility] Department [place] [address] * POCT glucose (09/09/2024 10:38 PM CDT) [facility] Glucose, POC 76 70 - 199 mg/dL Blood 09/09/2024 10:3 8 PM CDT 09/09/2024 10:38 PM CDT Result [facility] Kirk Gaming MD LAB POCT ORDERABLES - DEVICE Final Result Performing Organization Address [facility] de Phone Number [facility] [place] [address] * POCT glucose (09/09/2024 7:51 PM CDT) Glucose, POC 76 70 - 199 mg/dL Blood 09/09/2024 7:51 PM CDT 09/09/2024 7:51 PM CDT Result [facility] Kirk Gaming MD LAB POCT ORDERABLES - DEVICE Final Result Performing Organization Address [facility] de Phone Number [facility] [place] [address] * POCT glucose (09/09/2024 2:55 PM CDT) Glucose, POC 80 70 - 199 mg/dL Blood 09/09/2024 2:55 PM CDT 09/09/2024 2:55 PM CDT Result [facility] Kirk Gaming MD LAB POCT ORDERABLES - DEVICE Final Result Performing Organization Address [facility] [place] [address] * (ABNORMAL) POCT glucose (09/09/2024 12:03 PM CDT) Glucose, POC 69(L) 70 - 199 mg/dL Blood 09/09/2024 12:0 3 PM CDT 09/09/2024 12:03 PM CDT Kirk Gaming MD LAB POCT ORDERABLES - DEVICE Final Result Performing Organization Address [facility]/ZIP Co de Phone Number [facility] [place] [address] * POCT glucose (09/09/2024 8:34 AM CDT) Glucose, POC 84 70 - 199 mg/dL Blood 09/09/2024 8:34 AM CDT 09/09/2024 8:34 AM CDT us Kirk Gaming MD LAB POCT ORDERABLES - DEVICE Final Result Performing Organization Address [facility] Co de Phone Number [employer] [place] [address] * (ABNORMAL) POCT glucose (09/09/2024 5:46 AM CDT) Glucose, POC 68(L) 70 - 199 mg/dL Blood 09/09/2024 5:46 AM CDT 09/09/2024 5:46 AM CDT us Kirk Gaming MD LAB POCT ORDERABLES - DEVICE Final Result Performing Organization Address [facility] Co de Phone Number [employer] [facility] [place] [address] * POCT glucose (09/09/2024 3:26 AM CDT) Glucose, POC 78 70 - 199 mg/dL Blood 09/09/2024 3:26 AM CDT 09/09/2024 3:26 AM CDT us Kirk Gaming MD LAB POCT ORDERABLES - DEVICE Final Result Performing Organization Address City/[facility] Co de Phone Number [employer] [facility] [place] [address] * POCT glucose (09/09/2024 1:55 AM CDT) Glucose, POC 72 70 - 199 mg/dL Blood 09/09/2024 1:55 AM CDT 09/09/2024 1:55 AM CDT Kirk Gaming MD LAB POCT ORDERABLES - DEVICE Final Result Performing Organization Address [facility] de Phone Number [facility] [place] [address] * POCT glucose (09/09/2024 12:11 AM CDT) Glucose, POC 89 70 - 199 mg/dL Blood 09/09/2024 12:1 1 AM CDT 09/09/2024 12:11 AM CDT Kirk Gaming MD LAB POCT ORDERABLES - DEVICE Final Result Performing Organization Address [facility] de Phone Number [facility] [place] [address] * (ABNORMAL) POCT glucose (09/08/2024 10:15 PM CDT) Glucose, POC 67(L) 70 - 199 mg/dL Blood 09/08/2024 10:1 5 PM CDT 09/08/2024 10:15 PM CDT Kirk Gaming MD LAB POCT ORDERABLES - DEVICE Final Result Performing Organization Address [facility] de Phone Number [facility] [place] [address] * POCT glucose (09/08/2024 8:51 PM CDT) Glucose, POC 83 70 - 199 mg/dL Blood 09/08/2024 8:51 PM CDT 09/08/2024 8:51 PM CDT Kirk Gaming MD LAB POCT ORDERABLES - DEVICE Final Result Performing Organization Address [facility] de Phone Number [facility] [place] [address] * (ABNORMAL) POCT glucose (09/08/2024 2:10 PM CDT) Glucose, POC 221(H) 70 - 199 mg/dL Blood 09/08/2024 2:10 PM CDT 09/08/2024 2:10 PM CDT Kirk Gaming MD LAB POCT ORDERABLES - DEVICE Final Result Performing Organization Address [facility] Phone Number [facility] [place] [address] * (ABNORMAL) POCT glucose (09/08/2024 1:37 PM CDT) Glucose, POC 65(L) 70 - 199 mg/dL Blood 09/08/2024 1:37 PM CDT 09/08/2024 1:37 PM CDT Kirk Gaming MD LAB POCT ORDERABLES - DEVICE Final Result Performing Organization Address [facility] de Phone Number [facility] Department [place] [address] * (ABNORMAL) POCT glucose (09/08/2024 10:49 AM CDT) Glucose, POC 65(L) 70 - 199 mg/dL Blood 09/08/2024 10:4 9 AM CDT 09/08/2024 10:49 AM CDT Kirk Gamnig MD LAB POCT ORDERABLES - DEVICE Final Result Performing Organization Address [facility] [place] [address] * (ABNORMAL) POCT glucose (09/08/2024 7:48 AM CDT) Glucose, POC 64(L) 70 - 199 mg/dL Comment:Glu2: RN/MD Notified Glucose comment 1 Glu2: RN/MD Notified [facility] Blood 09/08/2024 7:48 AM CDT 09/08/2024 7:48 AM CDT us Kirk Gaming MD LAB POCT ORDERABLES - [place] [address] * POCT glucose (09/08/2024 5:03 AM CDT) Glucose, POC 76 70 - 199 mg/dL Blood 09/08/2024 5:03 AM CDT 09/08/2024 5:03 AM CDT us Kirk Gaming MD LAB POCT ORDERABLES - [place] [address] * POCT glucose (09/07/2024 9:07 PM CDT) Glucose, POC 96 70 - 199 mg/dL Blood 09/07/2024 9:07 PM CDT 09/07/2024 9:07 PM CDT us Kirk Gaming MD LAB POCT ORDERABLES - DEVICE Final Result [facility] [place] [address] * POCT glucose (09/07/2024 8:12 PM CDT) Glucose, POC 87 70 - 199 mg/dL Blood 09/07/2024 8:12 PM CDT 09/07/2024 8:12 PM CDT us Kirk Gaming MD LAB POCT ORDERABLES - DEVICE Final Result Performing Organization Address [facility] Co de Phone Number [facility] [place] [address] * (ABNORMAL) POCT glucose (09/07/2024 7:39 PM CDT) Glucose, POC 65(L) 70 - 199 mg/dL Comment:Glu2: RN/MD Notified Glucose comment 1 Glu2: RN/MD Notified [facility] Blood 09/07/2024 7:39 PM CDT 09/07/2024 7:39 PM CDT us Kirk Gaming MD LAB POCT ORDERABLES - DEVICE Final Result Performing Organization Address [facility] Co de Phone Number [facility] [place] [address] * POCT glucose (09/07/2024 8:22 AM CDT) Glucose, POC 79 70 - 199 mg/dL Blood 09/07/2024 8:22 AM CDT 09/07/2024 8:22 AM CDT Kirk Gaming MD LAB POCT ORDERABLES - DEVICE Final Result Performing Organization Address [facility] Co de Phone Number [facility] [place] [address] * (ABNORMAL) POCT glucose (09/07/2024 7:51 AM CDT) Glucose, POC 68(L) 70 - 199 mg/dL Comment:Glu2: RN/MD Notified Glucose comment 1 Glu2: RN/MD Notified [facility] Blood 09/07/2024 7:51 AM CDT 09/07/2024 7:51 AM CDT us Kirk Gaming MD LAB POCT ORDERABLES - DEVICE Final Result Performing Organization Address [facility] de Phone Number [facility] Department [place] [address] * (ABNORMAL) eGFR (09/06/2024 9:48 PM CDT) eGFR 14(L) >=60 mL/min/1. 73 m2 Comment: Interpretive Data Reference Interval Normal >/= 90 mL/min/1.73m2 Mildly decreased* 60 - 89 mL/min/1.73m2 Mildly to moderately decreased 45 - 59 mL/min/1.73m2 Moderately to severely decreased 30 - 44 mL/min/1.73m2 Severely decreased 15 - 29 mL/min/1.73m2 Kidney Failure < 15 mL/min/1.73m2 *Relative to young adult level Estimated glomerular filtration rate is determined by the 2020 CKD-EPI equation recommended by the National Kidney Foundation (A Unifying Approach to GFR Estimation: Recommendations of the NKF-ASK Task Force on Reassessing the Inclusion of Race in Diagnosing Kidney Disease, JASN 2020). The CKD-EPI equation should not be used for patients with unstable renal function and has not been validated in children and those over 70. Current interpretive data was last reviewed 2021. Blood 09/06/2024 9:48 PM CDT 09/06/2024 10:23 PM CDT us Elizabet Dickey MD LAB BLOOD ORDERABLES F inal Result Performing Organization Address [facility] Co de Phone Number [facility] Department [place] [address] * (ABNORMAL) Basic metabolic panel (09/06/2024 9:48 PM CDT) Sodium 133(L) 135 - 145 mmol/L Potassium, pl 3.7 3.3 - 4.9 mmol/L [facility] Chloride 97 97 - 110 mmol/L [facility] CO2 29 22 - 32 mmol/L [facility] Anion gap 7 2 - 15 mmol/L [facility] BUN 14 6 - 25 mg/dL [facility] Creatinine 4.24(H) 0.60 - 1.10 mg/dL [facility] Glucose 80 70 - 199 mg/dL [facility] Comment: Interpretive Data Fasting glucose >/= 126 mg/dl is diagnostic for diabetes. Fasting is defined as no caloric intake for at least 8 hours. Fasting glucose between 100 mg/dl to 125 mg/dl is diagnostic of prediabetes. In a patient with classic symptoms of hyperglycemia or hyperglycemic crisis, a random glucose >/= 200 mg/dl is diagnostic for diabetes. In the absence of unequivocal hyperglycemia, results should be confirmed by repeat testing. The classification and Diagnosis of Diabetes Diabetes Care 2021; 46: S19-S40. Current interpretive data was last revised 2022. Calcium 7.9(L) 8.5 - 10.3 mg/dL [facility] Blood 09/06/2024 9:48 PM CDT 09/06/2024 10:23 PM CDT us Elizabet Dickey MD LAB BLOOD ORDERABLES F inal Result Performing Organization Address [facility]/ZIP Co de Phone Number [facility] Department [place] [address] * POCT glucose (09/06/2024 9:30 PM CDT) Glucose, POC 84 70 - 199 mg/dL Blood 09/06/2024 9:30 PM CDT 09/06/2024 9:30 PM CDT us Kirk Gaming MD LAB POCT ORDERABLES - DEVICE Final Result Performing Organization Address [facility]/State/[place] [address] * POCT glucose (09/06/2024 5:32 PM CDT) Glucose, POC 94 70 - 199 mg/dL Blood 09/06/2024 5:32 PM CDT 09/06/2024 5:32 PM CDT us Kirk Gaming MD LAB POCT ORDERABLES - DEVICE Final Result Performing Organization Address [facility] [place] [address] * POCT glucose (09/06/2024 11:49 AM CDT) Glucose, POC 106 70 - 199 mg/dL Blood 09/06/2024 11:4 9 AM CDT 09/06/2024 11:49 AM CDT Kirk Gaming MD LAB POCT ORDERABLES - DEVICE Final Result Performing Organization Address [facility] [place] [address] * POCT glucose (09/06/2024 11:42 AM CDT) Glucose, POC 99 70 - 199 mg/dL Blood 09/06/2024 11:4 2 AM CDT 09/06/2024 11:42 AM CDT Kirk Gaming MD LAB POCT ORDERABLES - DEVICE Final Result Performing Organization Address [facility] [place] [address] * POCT glucose (09/06/2024 11:01 AM CDT) Glucose, POC 90 70 - 199 mg/dL Blood 09/06/2024 11:0 1 AM CDT 09/06/2024 11:01 AM CDT Kirk Gaming MD LAB POCT ORDERABLES - DEVICE Final Result Performing Organization Address [facility] de Phone Number [facility] [place] [address] * (ABNORMAL) POCT glucose (09/06/2024 10:39 AM CDT) Glucose, POC 64(L) 70 - 199 mg/dL Blood 09/06/2024 10:3 9 AM CDT 09/06/2024 10:39 AM CDT Kirk Gaming MD LAB POCT ORDERABLES - DEVICE Final Result Performing Organization Address [facility] de Phone Number [facility] [place] [address] * (ABNORMAL) POCT glucose (09/06/2024 9:44 AM CDT) Glucose, POC 68(L) 70 - 199 mg/dL Comment:Glu2: RN/MD Notified Glucose comment 1 Glu2: RN/MD Notified [facility] Blood 09/06/2024 9:44 AM CDT 09/06/2024 9:44 AM CDT Kirk Gaming MD LAB POCT ORDERABLES - DEVICE Final Result Performing Organization Address [facility] [place] [address] * (ABNORMAL) eGFR (2024 9:30 PM CDT) eGFR 21(L) >=60 mL/min/1. 73 m2 Comment: Interpretive Data Reference Interval Normal >/= 90 mL/min/1.73m2 Mildly decreased* 60 - 89 mL/min/1.73m2 Mildly to moderately decreased 45 - 59 mL/min/1.73m2 Moderately to severely decreased 30 - 44 mL/min/1.73m2 Severely decreased 15 - 29 mL/min/1.73m2 Kidney Failure < 15 mL/min/1.73m2 *Relative to young adult level Estimated glomerular filtration rate is determined by the 2020 CKD-EPI equation recommended by the National Kidney Foundation (A Unifying Approach to GFR Estimation: Recommendations of the NKF-ASK Task Force on Reassessing the Inclusion of Race in Diagnosing Kidney Disease, JASN 2020). The CKD-EPI equation should not be used for patients with unstable renal function and has not been validated in children and those over 70. Current interpretive data was last reviewed 2021. Blood 2024 9:30 PM CDT 2024 11:12 PM CDT Elizabet Dickey MD LAB BLOOD ORDERABLES F inal Result [facility] Department [place] [address] * (ABNORMAL) Basic metabolic panel (2024 9:30 PM CDT) Sodium 134(L) 135 - 145 mmol/L Potassium, pl 4.0 3.3 - 4.9 mmol/L [facility] Chloride 97 97 - 110 mmol/L [facility] CO2 30 22 - 32 mmol/L [facility] Anion gap 7 2 - 15 mmol/L [facility] BUN 8 6 - 25 mg/dL [facility] Creatinine 3.03(H) 0.60 - 1.10 mg/dL [facility] Glucose 74 70 - 199 mg/dL [facility] Comment: Interpretive Data Fasting glucose >/= 126 mg/dl is diagnostic for diabetes. Fasting is defined as no caloric intake for at least 8 hours. Fasting glucose between 100 mg/dl to 125 mg/dl is diagnostic of prediabetes. In a patient with classic symptoms of hyperglycemia or hyperglycemic crisis, a random glucose >/= 200 mg/dl is diagnostic for diabetes. In the absence of unequivocal hyperglycemia, results should be confirmed by repeat testing. The classification and Diagnosis of Diabetes Diabetes Care 2021; 46: S19-S40. Current interpretive data was last revised 2022. Calcium 8.0(L) 8.5 - 10.3 mg/dL [facility] Blood 2024 9:30 PM CDT 2024 11:12 PM CDT us Elizabet Dickey MD LAB BLOOD ORDERABLES F inal Result Performing Organization Address [facility]/ZIP Co de Phone Number [facility] Department [place] [address] * POCT glucose (2024 9:16 PM CDT) Glucose, POC 101 70 - 199 mg/dL Blood 2024 9:16 PM CDT 2024 9:16 PM CDT us Kirk Gaming MD LAB POCT ORDERABLES - DEVICE Final Result Performing Organization Address [facility] Co de Phone Number [facility] Department [place] [address] * Hepatitis B Surface Antigen Blood (2024 3:29 PM CDT) HepBsAg Nonreactive Nonreactive Blood 2024 3:29 PM CDT 2024 3:42 PM CDT us Maryellen Alejandro MD LAB MICROBIOLOGY - GENER AL ORDERABLES Final Result Performing Organization Address [facility] Co de Phone Number [facility] Department [place] [address] * POCT glucose (2024 11:11 AM CDT) Glucose, POC 76 70 - 199 mg/dL Blood 2024 11:1 1 AM CDT 2024 11:11 AM CDT us Kirk Gaming MD LAB POCT ORDERABLES - DEVICE Final Result Performing Organization Address City/[facility] Co de Phone Number [facility] [place] [address] * (ABNORMAL) eGFR (09/04/2024 9:04 PM CDT) Pathologist [facility] eGFR 12(L) >=60 mL/min/1. 73 m2 Comment: Interpretive Data Reference Interval Normal >/= 90 mL/min/1.73m2 Mildly decreased* 60 - 89 mL/min/1.73m2 Mildly to moderately decreased 45 - 59 mL/min/1.73m2 Moderately to severely decreased 30 - 44 mL/min/1.73m2 Severely decreased 15 - 29 mL/min/1.73m2 Kidney Failure < 15 mL/min/1.73m2 *Relative to young adult level Estimated glomerular filtration rate is determined by the 2020 CKD-EPI equation recommended by the National Kidney Foundation (A Unifying Approach to GFR Estimation: Recommendations of the NKF-ASK Task Force on Reassessing the Inclusion of Race in Diagnosing Kidney Disease, JASN 2020). The CKD-EPI equation should not be used for patients with unstable renal function and has not been validated in children and those over 70. Current interpretive data was last reviewed 2021. Blood 09/04/2024 9:04 PM CDT 09/04/2024 9:56 PM CDT us Elizabet Dickey MD LAB BLOOD ORDERABLES F inal Result Performing Organization Address [facility]/ZIP Co de Phone Number [facility] [place] [address] * (ABNORMAL) Basic metabolic panel (09/04/2024 9:04 PM CDT) Sodium 137 135 - 145 mmol/L Potassium, pl 4.2 3.3 - 4.9 mmol/L [facility] Chloride 97 97 - 110 mmol/L [facility] CO2 33(H) 22 - 32 mmol/L [facility] Anion gap 7 2 - 15 mmol/L [facility] BUN 16 6 - 25 mg/dL [facility] Creatinine 4.69(H) 0.60 - 1.10 mg/dL [facility] Glucose 100 70 - 199 mg/dL [facility] Comment: Interpretive Data Fasting glucose >/= 126 mg/dl is diagnostic for diabetes. Fasting is defined as no caloric intake for at least 8 hours. Fasting glucose between 100 mg/dl to 125 mg/dl is diagnostic of prediabetes. In a patient with classic symptoms of hyperglycemia or hyperglycemic crisis, a random glucose >/= 200 mg/dl is diagnostic for diabetes. In the absence of unequivocal hyperglycemia, results should be confirmed by repeat testing. The classification and Diagnosis of Diabetes Diabetes Care 2021; 46: S19-S40. Current interpretive data was last revised 2022. Calcium 8.0(L) 8.5 - 10.3 mg/dL [facility] Blood 09/04/2024 9:04 PM CDT 09/04/2024 9:56 PM CDT us Elizabet Dickey MD LAB BLOOD ORDERABLES F inal Result Performing Organization Address [facility]/ZIP Co de Phone Number [facility] Department [place] [address] * POCT glucose (09/04/2024 7:58 PM CDT) Glucose, POC 106 70 - 199 mg/dL Blood 09/04/2024 7:58 PM CDT 09/04/2024 7:58 PM CDT us Kirk Gaming MD LAB POCT ORDERABLES - DEVICE Final Result Performing Organization Address [facility]/ZIP Co de Phone Number [facility] Department [place] [address] * POCT glucose (09/04/2024 7:57 AM CDT) Glucose, POC 86 70 - 199 mg/dL Blood 09/04/2024 7:57 AM CDT 09/04/2024 7:57 AM CDT us Kirk Gaming MD LAB POCT ORDERABLES - DEVICE Final Result [facility] [place] [address] * (ABNORMAL) Urinalysis reflex to microscopic and culture Urine (09/04/2024 6:05 AM CDT) Color, ur Yellow Yellow Clarity, ur Turbid(A) Clear [facility] Specific gravity, ur 1.011 1.003 - 1.030 [facility] pH, urine 8.5 [facility] Comment: Interpretive Data U rine pH is affected by diet, medications, systemic acid-base disturbances, and renal tubular function. pH may affect urinary stone formation. For example, urine pH below 6.0 may help reduce the tendency for calcium phosphate stones and pH greater than 6.0 may reduce the tendency for uric acid stone formation. Source: [facility] Current Interpretive Data was last revised on 2017 Protein, ur ql 3+(A) Negative [facility] Glucose, ur ql Negative Negative [facility] Ketones, ur Negative Negative [facility] Bilirubin, ur Negative Negative [facility] Blood, ur 3+(A) Negative [facility] Urobilinogen, ur <2.0 <2.0 mg/dL [facility] Nitrite, ur Negative Negative [facility] Leukocyte esterase, ur 3+(A) Negative [facility] UA reflex comment Reflex to microscopic UA will be performed. [facility] Urine 09/04/2024 6:05 AM CDT 09/04/2024 6:44 AM CDT Elizabet Dickey MD LAB MICROBIOLOGY - GEN ERAL ORDERABLES Final Result Performing Organization Address [facility] Co de Phone Number [facility] [place] [address] * (ABNORMAL) Urinalysis, microscopic only (09/04/2024 6:05 AM CDT) WBC, ur >50(A) 0 - 5 /HPF RBC, ur >50(A) 0 - 2 /HPF [facility] Epithelial cells, squamous, ur 11-20(A) 0 - 5 /HPF [facility] Comment:Suggestive of contam ination. Consider recollection by clean catch. Bacteria, ur 4+(A) [facility] Culture Reflex Comment Reflex to urine culture will be performed. [facility] Urine 09/04/2024 6:05 AM CDT 09/04/2024 6:44 AM CDT Elizabet Dickey MD LAB URINE ORDERABLES F inal Result Performing Organization Address [facility] Co de Phone Number [facility] Department [place] [address] * (ABNORMAL) Urine culture Urine (09/04/2024 6:05 AM CDT) Report Final Report: Greater than or equal to 100,000 colonies/mL of Escherichia coli Plus growth of clinically insignificant bacterial melissa. (.) Organism ESCHERICHIA COLI [facility] Organism PLUS GROWTH OF CLINICALLY INSIGNIFICANT MELISSA. [facility] Urine 09/04/2024 6:05 AM CDT 09/04/2024 7:32 AM CDT Narrative [facility] - 09/06/2024 10:45 AM CDT Urine culture reflexed based upon urinalysis results. Testing performed by [facility] ([phone]) Organism Antibiotic Method Susceptibility Escherichia coli Ampicillin INTERPRETATION Resistant Escherichia coli Cefazolin INTERPRETATION Susceptible Escherichia coli Nitrofurantoin INTERPRETATION Susceptible Escherichia coli Gentamicin INTERPRETATION Susceptible Escherichia coli Trimethoprim with Sulfamethoxazole IN TERPRETATION Susceptible Escherichia coli Meropenem INTERPRETATION Susceptible Escherichia coli Cefepime INTERPRETATION Susceptible Escherichia coli Ciprofloxacin INTERPRETATION Susceptible Escherichia coli Ceftazidime INTERPRETATION Susceptible Escherichia coli Ceftriaxone INTERPRETATION Susceptible Escherichia coli Piperacillin/Tazobactam INTERPRETATIO N Susceptible Escherichia coli Cephalexin INTERPRETATION Susceptible Escherichia coli Cefuroxime-axetil INTERPRETATION Susceptible Escherichia coli Cefdinir INTERPRETATION Susceptible us Elizabet Dickey MD LAB MICROBIOLOGY - GEN ERAL ORDERABLES Final Result Performing Organization Address [facility] Co de Phone Number [facility] Department [place] [address] * POCT glucose (09/03/2024 11:17 PM CDT) Glucose, POC 100 70 - 199 mg/dL Blood 09/03/2024 11:1 7 PM CDT 09/03/2024 11:17 PM CDT us Kirk Gaming MD LAB POCT ORDERABLES - DEVICE Final Result Performing Organization Address [facility] de Phone Number [facility] Department [place] [address] * (ABNORMAL) eGFR (09/03/2024 10:19 PM CDT) eGFR 16(L) >=60 mL/min/1. 73 m2 Comment: Interpretive Data Reference Interval Normal >/= 90 mL/min/1.73m2 Mildly decreased* 60 - 89 mL/min/1.73m2 Mildly to moderately decreased 45 - 59 mL/min/1.73m2 Moderately to severely decreased 30 - 44 mL/min/1.73m2 Severely decreased 15 - 29 mL/min/1.73m2 Kidney Failure < 15 mL/min/1.73m2 *Relative to young adult level Estimated glomerular filtration rate is determined by the 2020 CKD-EPI equation recommended by the National Kidney Foundation (A Unifying Approach to GFR Estimation: Recommendations of the NKF-ASK Task Force on Reassessing the Inclusion of Race in Diagnosing Kidney Disease, JASN 2020). The CKD-EPI equation should not be used for patients with unstable renal function and has not been validated in children and those over 70. Current interpretive data was last reviewed 2021. Blood 09/03/2024 10:1 9 PM CDT 09/03/2024 10:54 PM CDT Elizabet Dickey MD LAB BLOOD ORDERABLES F inal Result [facility] Department [place] [address] * (ABNORMAL) Basic metabolic panel (09/03/2024 10:19 PM CDT) Sodium 135 135 - 145 mmol/L Potassium, pl 3.9 3.3 - 4.9 mmol/L [facility] Chloride 95(L) 97 - 110 mmol/L [facility] CO2 32 22 - 32 mmol/L [facility] Anion gap 8 2 - 15 mmol/L [facility] BUN 11 6 - 25 mg/dL [facility] Creatinine 3.79(H) 0.60 - 1.10 mg/dL [facility] Glucose 87 70 - 199 mg/dL [facility] Comment: Interpretive Data Fasting glucose >/= 126 mg/dl is diagnostic for diabetes. Fasting is defined as no caloric intake for at least 8 hours. Fasting glucose between 100 mg/dl to 125 mg/dl is diagnostic of prediabetes. In a patient with classic symptoms of hyperglycemia or hyperglycemic crisis, a random glucose >/= 200 mg/dl is diagnostic for diabetes. In the absence of unequivocal hyperglycemia, results should be confirmed by repeat testing. The classification and Diagnosis of Diabetes Diabetes Care 2021; 46: S19-S40. Current interpretive data was last revised 2022. Calcium 7.6(L) 8.5 - 10.3 mg/dL [facility] Blood 09/03/2024 10:1 9 PM CDT 09/03/2024 10:54 PM CDT us Elizabet Dickey MD LAB BLOOD ORDERABLES F inal Result Performing Organization Address [facility]/ZIP Co de Phone Number [facility] [place] [address] * POCT glucose (09/03/2024 3:07 PM CDT) Glucose, POC 105 70 - 199 mg/dL Blood 09/03/2024 3:07 PM CDT 09/03/2024 3:07 PM CDT us Elizabet Dickey MD LAB POCT ORDERABLES - DEVICE Final Result Performing Organization Address [facility] Co de Phone Number [facility] [place] [address] * POCT glucose (09/03/2024 11:28 AM CDT) Glucose, POC 77 70 - 199 mg/dL Blood 09/03/2024 11:2 8 AM CDT 09/03/2024 11:28 AM CDT us Elizabet Dickey MD LAB POCT ORDERABLES - DEVICE Final Result Performing Organization Address [facility] Co de Phone Number [facility] [place] [address] * POCT glucose (09/03/2024 8:02 AM CDT) Glucose, POC 122 70 - 199 mg/dL Blood 09/03/2024 8:02 AM CDT 09/03/2024 8:02 AM CDT us Elizabet Dickey MD LAB POCT ORDERABLES - DEVICE Final Result Performing Organization Address [facility]/ZIP Co de Phone Number [facility] [place] [address] * POCT glucose (09/03/2024 1:24 AM CDT) Glucose, POC 154 70 - 199 mg/dL Blood 09/03/2024 1:24 AM CDT 09/03/2024 1:24 AM CDT Elizabet Dickey MD LAB POCT ORDERABLES - DEVICE Final Result Performing Organization Address [facility] de Phone Number [facility] Department [place] [address] * (ABNORMAL) POCT glucose (09/03/2024 12:45 AM CDT) Pathologist [facility] Glucose, POC 64(L) 70 - 199 mg/dL Comment:Glu2: RN/MD Notified Glucose comment 1 Glu2: RN/MD Notified [facility] Blood 09/03/2024 12:4 5 AM CDT 09/03/2024 12:45 AM CDT Elizabet Dickey MD LAB POCT ORDERABLES - DEVICE Final Result Performing Organization Address [facility] de Phone Number [facility] Department [place] [address] * (ABNORMAL) eGFR (09/02/2024 9:27 PM CDT) Pathologist [facility] eGFR 10(L) >=60 mL/min/1. 73 m2 Comment: Interpretive Data Reference Interval Normal >/= 90 mL/min/1.73m2 Mildly decreased* 60 - 89 mL/min/1.73m2 Mildly to moderately decreased 45 - 59 mL/min/1.73m2 Moderately to severely decreased 30 - 44 mL/min/1.73m2 Severely decreased 15 - 29 mL/min/1.73m2 Kidney Failure < 15 mL/min/1.73m2 *Relative to young adult level Estimated glomerular filtration rate is determined by the 2020 CKD-EPI equation recommended by the National Kidney Foundation (A Unifying Approach to GFR Estimation: Recommendations of the NKF-ASK Task Force on Reassessing the Inclusion of Race in Diagnosing Kidney Disease, JASN 202). The CKD-EPI equation should not be used for patients with unstable renal function and has not been validated in children and those over 70. Current interpretive data was last reviewed 2021. Blood 09/02/2024 9:27 PM CDT 09/02/2024 9:31 PM CDT us Valerie Cooper MD PhD LAB BLOOD ORDERABLES Final Result [facility] Department [place] [address] * (ABNORMAL) Differential, auto (09/02/2024 9:27 PM CDT) Neutrophil abs 6.55(H) 1.50 - 6.50 K/cumm Imm gran abs 0.08 0.00 - 0.10 K/cumm [facility] Lymphocyte abs 2.30 0.80 - 3.30 K/cumm [facility] Monocyte abs 0.88(H) 0.20 - 0.80 K/cumm [facility] Eosinophil abs 0.14 0.00 - 0.50 K/cumm [facility] Basophil abs 0.05 0.00 - 0.10 K/cumm [facility] Neutrophil pct 65.5 % [facility] Comment: Interpretive Data Percent cell count reference ranges are not reported, since discordance with absolute values may lead to misinterpretation of CBC data. Current Interpretive Data was last revised on 2017. Imm gran pct 0.8 % [facility] Comment: Interpretive Data Percent cell count reference ranges are not reported, since discordance with absolute values may lead to misinterpretation of CBC data. Current Interpretive Data was last revised on 2017. Lymphocyte pct 23.0 % [facility] Comment: Interpretive Data Percent cell count reference ranges are not reported, since discordance with absolute values may lead to misinterpretation of CBC data. Current Interpretive Data was last revised on 2017. Monocyte pct 8.8 % [facility] Comment: Interpretive Data Percent cell count reference ranges are not reported, since discordance with absolute values may lead to misinterpretation of CBC data. Current Interpretive Data was last revised on 2017. Eosinophil pct 1.4 % [facility] Comment: Interpretive Data Percent cell count reference ranges are not reported, since discordance with absolute values may lead to misinterpretation of CBC data. Current Interpretive Data was last revised on 2017. Basophil pct 0.5 % [facility] Comment: Interpretive Data Percent cell count reference ranges are not reported, since discordance with absolute values may lead to misinterpretation of CBC data. Current Interpretive Data was last revised on 2017. Blood 09/02/2024 9:27 PM CDT 09/02/2024 9:30 PM CDT Elizabet Dickey MD LAB BLOOD ORDERABLES F inal Result [facility] One [facility] Department [place] [address] * (ABNORMAL) CBC with auto differential (09/02/2024 9:27 PM CDT) WBC 10.00(H) 3.80 - 9.90 K/cumm Hgb 7.7(L) 11.9 - 15.5 g/dL [facility] Hct 24.8(L) 35.6 - 45.5 % [facility] Plt 264 150 - 400 K/cumm [facility] MPV 10.8 9.1 - 12.3 fL [facility] RBC 2.76(L) 3.90 - 5.20 M/cumm [facility] MCV 89.9 81.3 - 96.4 fL [facility] MCH 27.9 27.1 - 33.3 pg [facility] MCHC 31.0(L) 32.3 - 35.7 g/dL [facility] RDW CV 18.5(H) 11.1 - 14.9 % [facility] RDW SD 59.6(H) 35.7 - 48.1 fL [facility] NRBC abs 0.02(H) 0.00 - 0.01 K/cumm [facility] Blood 09/02/2024 9:27 PM CDT 09/02/2024 9:30 PM CDT Elizabet Dickey MD LAB BLOOD ORDERABLES F inal Result [facility] Department [place] [address] * (ABNORMAL) Comprehensive metabolic panel (09/02/2024 9:27 PM CDT) Sodium 133(L) 135 - 145 mmol/L Potassium, pl 4.8 3.3 - 4.9 mmol/L [facility] Chloride 96(L) 97 - 110 mmol/L [facility] CO2 29 22 - 32 mmol/L [facility] Anion gap 8 2 - 15 mmol/L [facility] BUN 19 6 - 25 mg/dL [facility] Creatinine 5.50(H) 0.60 - 1.10 mg/dL [facility] Glucose 75 70 - 199 mg/dL [facility] Comment: Interpretive Data Fasting glucose >/= 126 mg/dl is diagnostic for diabetes. Fasting is defined as no caloric intake for at least 8 hours. Fasting glucose between 100 mg/dl to 125 mg/dl is diagnostic of prediabetes. In a patient with classic symptoms of hyperglycemia or hyperglycemic crisis, a random glucose >/= 200 mg/dl is diagnostic for diabetes. In the absence of unequivocal hyperglycemia, results should be confirmed by repeat testing. The classification and Diagnosis of Diabetes Diabetes Care 202; 46: S19-S40. Current interpretive data was last revised 2022. Calcium 8.3(L) 8.5 - 10.3 mg/dL [facility] Bilirubin, total 0.6 0.1 - 1.2 mg/dL [facility] Protein, pl 7.7 6.5 - 8.5 g/dL [facility] Albumin 1.9(L) 3.5 - 5.0 g/dL [facility] Alk phos 122 40 - 130 Units/L [facility] ALT 44 7 - 45 Units/L [facility] AST 46(H) 10 - 45 Units/L [facility] Blood 09/02/2024 9:27 PM CDT 09/02/2024 9:31 PM CDT Valerie Cooper MD PhD LAB BLOOD ORDERABLES Final Result Performing Organization Address City/[facility]/ZIP Co de Phone Number [facility] [place] [address] * POCT glucose (09/02/2024 8:55 AM CDT) Glucose, POC 70 70 - 199 mg/dL Blood 09/02/2024 8:55 AM CDT 09/02/2024 8:55 AM CDT Elizabet Dickey MD LAB POCT ORDERABLES - DEVICE Final Result Performing Organization Address [facility] Co de Phone Number [facility] [place] [address] * POCT glucose (09/02/2024 12:27 AM CDT) Glucose, POC 100 70 - 199 mg/dL Blood 09/02/2024 12:2 7 AM CDT 09/02/2024 12:27 AM CDT Elizabet Dickey MD LAB POCT ORDERABLES - DEVICE Final Result Performing Organization Address City[facility] Co de Phone Number [facility] [place] [address] * (ABNORMAL) eGFR (09/01/2024 8:47 PM CDT) eGFR 14(L) >=60 mL/min/1. 73 m2 Comment: Interpretive Data Reference Interval Normal >/= 90 mL/min/1.73m2 Mildly decreased* 60 - 89 mL/min/1.73m2 Mildly to moderately decreased 45 - 59 mL/min/1.73m2 Moderately to severely decreased 30 - 44 mL/min/1.73m2 Severely decreased 15 - 29 mL/min/1.73m2 Kidney Failure < 15 mL/min/1.73m2 *Relative to young adult level Estimated glomerular filtration rate is determined by the 2020 CKD-EPI equation recommended by the National Kidney Foundation (A Unifying Approach to GFR Estimation: Recommendations of the NKF-ASK Task Force on Reassessing the Inclusion of Race in Diagnosing Kidney Disease, JASN 2020). The CKD-EPI equation should not be used for patients with unstable renal function and has not been validated in children and those over 70. Current interpretive data was last reviewed 2021. Blood 09/01/2024 8:47 PM CDT 09/01/2024 9:18 PM CDT us Valerie Cooper MD PhD LAB BLOOD ORDERABLES Final Result [facility] One [facility] Department [place] [address] * (ABNORMAL) Comprehensive metabolic panel (09/01/2024 8:47 PM CDT) Sodium 131(L) 135 - 145 mmol/L Potassium, pl 4.2 3.3 - 4.9 mmol/L [facility] Chloride 94(L) 97 - 110 mmol/L [facility] CO2 33(H) 22 - 32 mmol/L [facility] Anion gap 4 2 - 15 mmol/L [facility] BUN 12 6 - 25 mg/dL [facility] Creatinine 4.18(H) 0.60 - 1.10 mg/dL [facility] Glucose 77 70 - 199 mg/dL [facility] Comment: Interpretive Data Fasting glucose >/= 126 mg/dl is diagnostic for diabetes. Fasting is defined as no caloric intake for at least 8 hours. Fasting glucose between 100 mg/dl to 125 mg/dl is diagnostic of prediabetes. In a patient with classic symptoms of hyperglycemia or hyperglycemic crisis, a random glucose >/= 200 mg/dl is diagnostic for diabetes. In the absence of unequivocal hyperglycemia, results should be confirmed by repeat testing. The classification and Diagnosis of Diabetes Diabetes Care 2021; 46: S19-S40. Current interpretive data was last revised 2022. Calcium 8.0(L) 8.5 - 10.3 mg/dL [facility] Bilirubin, total 0.5 0.1 - 1.2 mg/dL [facility] Protein, pl 7.7 6.5 - 8.5 g/dL [facility] Albumin 1.8(L) 3.5 - 5.0 g/dL [facility] Alk phos 132(H) 40 - 130 Units/L [facility] ALT 45 7 - 45 Units/L [facility] AST 45 10 - 45 Units/L [facility] Blood 09/01/2024 8:47 PM CDT 09/01/2024 9:18 PM CDT us Valerie Cooper MD PhD LAB BLOOD ORDERABLES Final Result [facility] [place] [address] * POCT glucose (09/01/2024 4:32 PM CDT) Glucose, POC 70 70 - 199 mg/dL Blood 09/01/2024 4:32 PM CDT 09/01/2024 4:32 PM CDT us Elizabet Dickey MD LAB POCT ORDERABLES - DEVICE Final Result [facility] [place] [address] * POCT glucose (09/01/2024 12:53 PM CDT) Glucose, POC 74 70 - 199 mg/dL Blood 09/01/2024 12:5 3 PM CDT 09/01/2024 12:53 PM CDT us Elizabet Dickey MD LAB POCT ORDERABLES - DEVICE Final Result Performing Organization Address [facility] de Phone Number [facility] [place] [address] * POCT glucose (09/01/2024 8:18 AM CDT) Glucose, POC 79 70 - 199 mg/dL Blood 09/01/2024 8:18 AM CDT 09/01/2024 8:18 AM CDT us Elizabet Dickey MD LAB POCT ORDERABLES - DEVICE Final Result Performing Organization Address [facility] Phone Number [facility] [place] [address] * POCT glucose (09/01/2024 12:16 AM CDT) [facility] Signature Glucose, POC 137 70 - 199 mg/dL Blood 09/01/2024 12:1 6 AM CDT 09/01/2024 12:16 AM CDT us Elizabet Dickey MD LAB POCT ORDERABLES - DEVICE Final Result Performing Organization Address [facility] Phone Number [facility] [place] [address] * (ABNORMAL) eGFR (08/31/2024 8:43 PM CDT) eGFR 22(L) >=60 mL/min/1. 73 m2 Comment: Interpretive Data Reference Interval Normal >/= 90 mL/min/1.73m2 Mildly decreased* 60 - 89 mL/min/1.73m2 Mildly to moderately decreased 45 - 59 mL/min/1.73m2 Moderately to severely decreased 30 - 44 mL/min/1.73m2 Severely decreased 15 - 29 mL/min/1.73m2 Kidney Failure < 15 mL/min/1.73m2 *Relative to young adult level Estimated glomerular filtration rate is determined by the 2020 CKD-EPI equation recommended by the National Kidney Foundation (A Unifying Approach to GFR Estimation: Recommendations of the NKF-ASK Task Force on Reassessing the Inclusion of Race in Diagnosing Kidney Disease, JASN 202). The CKD-EPI equation should not be used for patients with unstable renal function and has not been validated in children and those over 70. Current interpretive data was last reviewed 2021. Blood 08/31/2024 8:43 PM CDT 08/31/2024 9:19 PM CDT us Valerie Cooper MD PhD LAB BLOOD ORDERABLES Final Result [facility] One [facility] Department [place] [address] * (ABNORMAL) Differential, auto (08/31/2024 8:43 PM CDT) Neutrophil abs 7.94(H) 1.50 - 6.50 K/cumm Imm gran abs 0.06 0.00 - 0.10 K/cumm [facility] Lymphocyte abs 1.80 0.80 - 3.30 K/cumm [facility] Monocyte abs 1.02(H) 0.20 - 0.80 K/cumm [facility] Eosinophil abs 0.23 0.00 - 0.50 K/cumm [facility] Basophil abs 0.05 0.00 - 0.10 K/cumm [facility] Neutrophil pct 71.5 % [facility] Comment: Interpretive Data Percent cell count reference ranges are not reported, since discordance with absolute values may lead to misinterpretation of CBC data. Current Interpretive Data was last revised on 2017. Imm gran pct 0.5 % [facility] Comment: Interpretive Data Percent cell count reference ranges are not reported, since discordance with absolute values may lead to misinterpretation of CBC data. Current Interpretive Data was last revised on 2017. Lymphocyte pct 16.2 % [facility] Comment: Interpretive Data Percent cell count reference ranges are not reported, since discordance with absolute values may lead to misinterpretation of CBC data. Current Interpretive Data was last revised on 2017. Monocyte pct 9.2 % [facility] Comment: Interpretive Data Percent cell count reference ranges are not reported, since discordance with absolute values may lead to misinterpretation of CBC data. Current Interpretive Data was last revised on 2017. Eosinophil pct 2.1 % [facility] Comment: Interpretive Data Percent cell count reference ranges are not reported, since discordance with absolute values may lead to misinterpretation of CBC data. Current Interpretive Data was last revised on 2017. Basophil pct 0.5 % [facility] Comment: Interpretive Data Percent cell count reference ranges are not reported, since discordance with absolute values may lead to misinterpretation of CBC data. Current Interpretive Data was last revised on 2017. Blood 08/31/2024 8:43 PM CDT 08/31/2024 9:20 PM CDT Elizabet Dickey MD LAB BLOOD ORDERABLES F inal Result [facility] One [facility] Department [place] [address] * (ABNORMAL) CBC with auto differential (08/31/2024 8:43 PM CDT) WBC 11.10(H) 3.80 - 9.90 K/cumm Hgb 8.5(L) 11.9 - 15.5 g/dL [facility] Hct 27.1(L) 35.6 - 45.5 % [facility] Plt 278 150 - 400 K/cumm [facility] MPV 9.9 9.1 - 12.3 fL [facility] RBC 3.06(L) 3.90 - 5.20 M/cumm [facility] MCV 88.6 81.3 - 96.4 fL [facility] MCH 27.8 27.1 - 33.3 pg [facility] MCHC 31.4(L) 32.3 - 35.7 g/dL [facility] RDW CV 18.3(H) 11.1 - 14.9 % [facility] RDW SD 57.3(H) 35.7 - 48.1 fL [facility] NRBC abs 0.00 0.00 - 0.01 K/cumm [facility] Blood 08/31/2024 8:43 PM CDT 08/31/2024 9:20 PM CDT Elizabet Dickey MD LAB BLOOD ORDERABLES F inal Result Performing Organization Address [facility] Co de Phone Number [facility] [place] [address] * Type and screen (08/31/2024 8:43 PM CDT) Pathologist [facility] ABO Rh A Positive Marybeth, indirect Negative [facility] Blood 08/31/2024 8:43 PM CDT 08/31/2024 9:19 PM CDT Narrative [facility] - 08/31/2024 10:13 PM CDT Has the patient had Daratumumab or Isatuximab in the past 6 months?->Unknown Elizabet Dickey MD LAB BLOOD BANK TEST OR DERABLES Final Result Performing Organization Address [facility] Co de Phone Number [facility] Department [place] [address] * (ABNORMAL) Comprehensive metabolic panel (08/31/2024 8:43 PM CDT) Pathologist [facility] Sodium 131(L) 135 - 145 mmol/L Potassium, pl 3.8 3.3 - 4.9 mmol/L [facility] Chloride 94(L) 97 - 110 mmol/L [facility] CO2 32 22 - 32 mmol/L [facility] Anion gap 5 2 - 15 mmol/L [facility] BUN 7 6 - 25 mg/dL [facility] Creatinine 2.92(H) 0.60 - 1.10 mg/dL [facility] Glucose 73 70 - 199 mg/dL [facility] Comment: Interpretive Data Fasting glucose >/= 126 mg/dl is diagnostic for diabetes. Fasting is defined as no caloric intake for at least 8 hours. Fasting glucose between 100 mg/dl to 125 mg/dl is diagnostic of prediabetes. In a patient with classic symptoms of hyperglycemia or hyperglycemic crisis, a random glucose >/= 200 mg/dl is diagnostic for diabetes. In the absence of unequivocal hyperglycemia, results should be confirmed by repeat testing. The classification and Diagnosis of Diabetes Diabetes Care 2021; 46: S19-S40. Current interpretive data was last revised 2022. Calcium 8.2(L) 8.5 - 10.3 mg/dL [facility] Bilirubin, total 0.6 0.1 - 1.2 mg/dL [facility] Protein, pl 8.2 6.5 - 8.5 g/dL [facility] Albumin 2.0(L) 3.5 - 5.0 g/dL [facility] Alk phos 126 40 - 130 Units/L [facility] ALT 68(H) 7 - 45 Units/L [facility] AST 72(H) 10 - 45 Units/L [facility] Blood 08/31/2024 8:43 PM CDT 08/31/2024 9:19 PM CDT us Valerie Cooper MD PhD LAB BLOOD ORDERABLES Final Result Performing Organization Address City[facility]/ZIP Co de Phone Number [facility] Department [place] [address] * POCT glucose (08/31/2024 8:14 PM CDT) [facility] Glucose, POC 74 70 - 199 mg/dL Blood 08/31/2024 8:14 PM CDT 08/31/2024 8:14 PM CDT us Elizabet Dickey MD LAB POCT ORDERABLES - DEVICE Final Result Performing Organization Address [facility]/State/[facility] Co de Phone Number [facility] [place] [address] * POCT glucose (08/31/2024 12:04 PM CDT) Glucose, POC 80 70 - 199 mg/dL Blood 08/31/2024 12:0 4 PM CDT 08/31/2024 12:04 PM CDT us Elizabet Dickey MD LAB POCT ORDERABLES - DEVICE Final Result Performing Organization Address [facility] [place] [address] * POCT glucose (08/31/2024 9:29 AM CDT) Glucose, POC 175 70 - 199 mg/dL Comment:Glu2: RN/ Notified Glucose comment 1 Glu2: RN/MD Notified [facility] Blood 08/31/2024 9:29 AM CDT 08/31/2024 9:29 AM CDT us Elizabet Dickey MD LAB POCT ORDERABLES - DEVICE Final Result Performing Organization Address [facility] Co de Phone Number [facility] [place] [address] * POCT glucose (08/31/2024 8:48 AM CDT) Glucose, POC 74 70 - 199 mg/dL Comment:Glu2: RN/ Notified Glucose comment 1 Glu2: RN/MD Notified [facility] Blood 08/31/2024 8:48 AM CDT 08/31/2024 8:48 AM CDT us Elizabet Dickey MD LAB POCT ORDERABLES - DEVICE Final Result Performing Organization Address City/[facility]/ZIP Co de Phone Number [facility] [place] [address] * (ABNORMAL) POCT glucose (08/31/2024 8:22 AM CDT) Glucose, POC 66(L) 70 - 199 mg/dL Blood 08/31/2024 8:22 AM CDT 08/31/2024 8:22 AM CDT us Elizabet Dickey MD LAB POCT ORDERABLES - DEVICE Final Result Performing Organization Address [facility] [place] [address] * (ABNORMAL) POCT glucose (08/31/2024 12:41 AM CDT) Glucose, POC 265(H) 70 - 199 mg/dL Blood 08/31/2024 12:4 1 AM CDT 08/31/2024 12:41 AM CDT us Elizabet Dickey MD LAB POCT ORDERABLES - DEVICE Final Result Performing Organization Address [facility] Co de Phone Number [facility] [place] [address] * (ABNORMAL) POCT glucose (08/31/2024 12:05 AM CDT) Glucose, POC 68(L) 70 - 199 mg/dL Blood 08/31/2024 12:0 5 AM CDT 08/31/2024 12:05 AM CDT us Elizabet Dickey MD LAB POCT ORDERABLES - DEVICE Final Result Performing Organization Address City/[facility]/ZIP Co de Phone Number [facility] [place] [address] * (ABNORMAL) eGFR (08/30/2024 9:37 PM CDT) Pathologist [facility] eGFR 11(L) >=60 mL/min/1. 73 m2 Comment: Interpretive Data Reference Interval Normal >/= 90 mL/min/1.73m2 Mildly decreased* 60 - 89 mL/min/1.73m2 Mildly to moderately decreased 45 - 59 mL/min/1.73m2 Moderately to severely decreased 30 - 44 mL/min/1.73m2 Severely decreased 15 - 29 mL/min/1.73m2 Kidney Failure < 15 mL/min/1.73m2 *Relative to young adult level Estimated glomerular filtration rate is determined by the 2020 CKD-EPI equation recommended by the National Kidney Foundation (A Unifying Approach to GFR Estimation: Recommendations of the NKF-ASK Task Force on Reassessing the Inclusion of Race in Diagnosing Kidney Disease, JASN 2020). The CKD-EPI equation should not be used for patients with unstable renal function and has not been validated in children and those over 70. Current interpretive data was last reviewed 2021. Blood 08/30/2024 9:37 PM CDT 08/30/2024 10:24 PM CDT us Valerie Cooper MD PhD LAB BLOOD ORDERABLES Final Result [facility] Department [place] [address] * (ABNORMAL) Comprehensive metabolic panel (08/30/2024 9:37 PM CDT) [facility] Sodium 134(L) 135 - 145 mmol/L Potassium, pl 4.2 3.3 - 4.9 mmol/L [facility] Chloride 95(L) 97 - 110 mmol/L [facility] CO2 30 22 - 32 mmol/L [facility] Anion gap 9 2 - 15 mmol/L [facility] BUN 14 6 - 25 mg/dL [facility] Creatinine 4.98(H) 0.60 - 1.10 mg/dL [facility] Glucose 61(L) 70 - 199 mg/dL [facility] Comment: Interpretive Data Fasting glucose >/= 126 mg/dl is diagnostic for diabetes. Fasting is defined as no caloric intake for at least 8 hours. Fasting glucose between 100 mg/dl to 125 mg/dl is diagnostic of prediabetes. In a patient with classic symptoms of hyperglycemia or hyperglycemic crisis, a random glucose >/= 200 mg/dl is diagnostic for diabetes. In the absence of unequivocal hyperglycemia, results should be confirmed by repeat testing. The classification and Diagnosis of Diabetes Diabetes Care 2021; 46: S19-S40. Current interpretive data was last revised 2022. Calcium 7.8(L) 8.5 - 10.3 mg/dL [facility] Bilirubin, total 0.5 0.1 - 1.2 mg/dL [facility] Protein, pl 7.8 6.5 - 8.5 g/dL [facility] Albumin 2.0(L) 3.5 - 5.0 g/dL [facility] Alk phos 121 40 - 130 Units/L [facility] ALT 95(H) 7 - 45 Units/L [facility] AST 128(H) 10 - 45 Units/L [facility] Blood 08/30/2024 9:37 PM CDT 08/30/2024 10:24 PM CDT us Valerie Cooper MD PhD LAB BLOOD ORDERABLES Final Result Performing Organization Address [facility]/ZIP Co de Phone Number [facility] [place] [address] * POCT glucose (08/30/2024 5:38 PM CDT) [facility] Signature Glucose, POC 82 70 - 199 mg/dL Blood 08/30/2024 5:38 PM CDT 08/30/2024 5:38 PM CDT us Elizabet Dickey MD LAB POCT ORDERABLES - DEVICE Final Result Performing Organization Address [facility]/ZIP Co de Phone Number [facility] [place] [address] * (ABNORMAL) POCT glucose (08/30/2024 2:23 PM CDT) Glucose, POC 68(L) 70 - 199 mg/dL Blood 08/30/2024 2:23 PM CDT 08/30/2024 2:23 PM CDT us Elizabet Dickey MD LAB POCT ORDERABLES - DEVICE Final Result Performing Organization Address [facility] Co de Phone Number [facility] [place] [address] * POCT glucose (08/30/2024 7:53 AM CDT) Glucose, POC 156 70 - 199 mg/dL Comment:Glu2: RN/MD Notified Glucose comment 1 Glu2: RN/MD Notified [facility] Blood 08/30/2024 7:53 AM CDT 08/30/2024 7:53 AM CDT us Elizabet Dickey MD LAB POCT ORDERABLES - DEVICE Final Result Performing Organization Address [facility] [place] [place] [address] * (ABNORMAL) POCT glucose (08/30/2024 7:37 AM CDT) Glucose, POC 69(L) 70 - 199 mg/dL Blood 08/30/2024 7:37 AM CDT 08/30/2024 7:37 AM CDT us Elizabet Dickey MD LAB POCT ORDERABLES - DEVICE Final Result Performing Organization Address [facility] Co de Phone Number [facility] [place] [address] * POCT glucose (08/30/2024 6:37 AM CDT) Glucose, POC 87 70 - 199 mg/dL Blood 08/30/2024 6:37 AM CDT 08/30/2024 6:37 AM CDT Elizabet Dickey MD LAB POCT ORDERABLES - DEVICE Final Result Performing Organization Address [facility] Co de Phone Number [facility] [place] [address] * (ABNORMAL) POCT glucose (08/30/2024 5:15 AM CDT) Glucose, POC 57(L) 70 - 199 mg/dL Blood 08/30/2024 5:15 AM CDT 08/30/2024 5:15 AM CDT Elizabet Dickey MD LAB POCT ORDERABLES - DEVICE Final Result Performing Organization Address [facility] Co de Phone Number [facility] [place] [address] * POCT glucose (08/29/2024 11:46 PM CDT) Glucose, POC 94 70 - 199 mg/dL Blood 08/29/2024 11:4 6 PM CDT 08/29/2024 11:46 PM CDT Elizabet Dickey MD LAB POCT ORDERABLES - DEVICE Final Result Performing Organization Address [facility] Co de Phone Number [facility] [place] [address] * (ABNORMAL) eGFR (08/29/2024 9:27 PM CDT) eGFR 17(L) >=60 mL/min/1. 73 m2 Comment: Interpretive Data Reference Interval Normal >/= 90 mL/min/1.73m2 Mildly decreased* 60 - 89 mL/min/1.73m2 Mildly to moderately decreased 45 - 59 mL/min/1.73m2 Moderately to severely decreased 30 - 44 mL/min/1.73m2 Severely decreased 15 - 29 mL/min/1.73m2 Kidney Failure < 15 mL/min/1.73m2 *Relative to young adult level Estimated glomerular filtration rate is determined by the 2020 CKD-EPI equation recommended by the National Kidney Foundation (A Unifying Approach to GFR Estimation: Recommendations of the NKF-ASK Task Force on Reassessing the Inclusion of Race in Diagnosing Kidney Disease, JASN 2020). The CKD-EPI equation should not be used for patients with unstable renal function and has not been validated in children and those over 70. Current interpretive data was last reviewed 2021. Blood 08/29/2024 9:27 PM CDT 08/29/2024 10:01 PM CDT us Valerie Cooper MD PhD LAB BLOOD ORDERABLES Final Result [facility] [place] [address] * Critical Result Callback Chemistry (08/29/2024 9:27 PM CDT) Pathologist [facility] Date Notified [id number] Time Notified [id number] [facility] TestName Glucose [facility]IS [facility] Called/Read Back KAELYN Torres [facility] Credentials RN ARAMIS [facility] Blood 08/29/2024 9:27 PM CDT 08/29/2024 10:01 PM CDT us Valerie Cooper MD PhD LAB BLOOD ORDERABLES Final Result [facility] [place] [address] * (ABNORMAL) Comprehensive metabolic panel (08/29/2024 9:27 PM CDT) [facility] Sodium 136 135 - 145 mmol/L Potassium, pl 3.9 3.3 - 4.9 mmol/L [facility] Chloride 98 97 - 110 mmol/L [facility] CO2 32 22 - 32 mmol/L [facility] Anion gap 6 2 - 15 mmol/L [facility] BUN 10 6 - 25 mg/dL [facility] Creatinine 3.61(H) 0.60 - 1.10 mg/dL [facility] Glucose 52(C) 70 - 199 mg/dL [facility] Comment: Glycolysis suspected; suggest sending a barry top tube. Interpretive Data Fasting glucose >/= 126 mg/dl is diagnostic for diabetes. Fasting is defined as no caloric intake for at least 8 hours. Fasting glucose between 100 mg/dl to 125 mg/dl is diagnostic of prediabetes. In a patient with classic symptoms of hyperglycemia or hyperglycemic crisis, a random glucose >/= 200 mg/dl is diagnostic for diabetes. In the absence of unequivocal hyperglycemia, results should be confirmed by repeat testing. The classification and Diagnosis of Diabetes Diabetes Care 202; 46: S19-S40. Current interpretive data was last revised 2022. Calcium 8.0(L) 8.5 - 10.3 mg/dL [facility] Bilirubin, total 0.4 0.1 - 1.2 mg/dL [facility] Protein, pl 7.9 6.5 - 8.5 g/dL [facility] Albumin 1.7(L) 3.5 - 5.0 g/dL [facility] Alk phos 116 40 - 130 Units/L [facility] ALT 104(H) 7 - 45 Units/L [facility] AST 174(H) 10 - 45 Units/L [facility] Blood 08/29/2024 9:27 PM CDT 08/29/2024 10:01 PM CDT us Valerie Cooper MD PhD LAB BLOOD ORDERABLES Final Result [facility] Department [place] [address] * POCT glucose (08/29/2024 4:50 PM CDT) Glucose, POC 82 70 - 199 mg/dL Blood 08/29/2024 4:50 PM CDT 08/29/2024 4:50 PM CDT us Elizabet Dickey MD LAB POCT ORDERABLES - DEVICE Final Result Performing Organization Address [facility] Co de Phone Number [facility] [place] [address] * POCT glucose (08/29/2024 2:13 PM CDT) Glucose, POC 123 70 - 199 mg/dL Blood 08/29/2024 2:13 PM CDT 08/29/2024 2:13 PM CDT Elizabet Dickey MD LAB POCT ORDERABLES - DEVICE Final Result Performing Organization Address [facility] de Phone Number [facility] [place] [address] * (ABNORMAL) POCT glucose (08/29/2024 12:57 PM CDT) Glucose, POC 67(L) 70 - 199 mg/dL Blood 08/29/2024 12:5 7 PM CDT 08/29/2024 12:57 PM CDT Elizabet Dickey MD LAB POCT ORDERABLES - DEVICE Final Result Performing Organization Address [facility] de Phone Number [facility] [place] [address] * POCT glucose (08/29/2024 8:53 AM CDT) Glucose, POC 87 70 - 199 mg/dL Blood 08/29/2024 8:53 AM CDT 08/29/2024 8:53 AM CDT us Elizabet Dickey MD LAB POCT ORDERABLES - DEVICE Final Result Performing Organization Address [facility] de Phone Number [facility] [place] [address] * POCT glucose (08/29/2024 8:32 AM CDT) Glucose, POC 70 70 - 199 mg/dL Blood 08/29/2024 8:32 AM CDT 08/29/2024 8:32 AM CDT us Elizabet Dickey MD LAB POCT ORDERABLES - DEVICE Final Result Performing Organization Address [facility] de Phone Number [facility] [place] [address] * (ABNORMAL) POCT glucose (08/29/2024 8:00 AM CDT) Glucose, POC 55(L) 70 - 199 mg/dL Blood 08/29/2024 8:00 AM CDT 08/29/2024 8:00 AM CDT Elizabet Dickey MD LAB POCT ORDERABLES - DEVICE Final Result Performing Organization Address [facility] de Phone Number [facility] [place] [address] * (ABNORMAL) eGFR (08/28/2024 8:51 PM CDT) eGFR 10(L) >=60 mL/min/1. 73 m2 Comment: Interpretive Data Reference Interval Normal >/= 90 mL/min/1.73m2 Mildly decreased* 60 - 89 mL/min/1.73m2 Mildly to moderately decreased 45 - 59 mL/min/1.73m2 Moderately to severely decreased 30 - 44 mL/min/1.73m2 Severely decreased 15 - 29 mL/min/1.73m2 Kidney Failure < 15 mL/min/1.73m2 *Relative to young adult level Estimated glomerular filtration rate is determined by the 2020 CKD-EPI equation recommended by the National Kidney Foundation (A Unifying Approach to GFR Estimation: Recommendations of the NKF-ASK Task Force on Reassessing the Inclusion of Race in Diagnosing Kidney Disease, JASN 202). The CKD-EPI equation should not be used for patients with unstable renal function and has not been validated in children and those over 70. Current interpretive data was last reviewed 2021. Blood 08/28/2024 8:51 PM CDT 08/28/2024 9:20 PM CDT us Valerie Cooper MD PhD LAB BLOOD ORDERABLES Final Result [facility] Department [place] [address] * (ABNORMAL) Differential, auto (08/28/2024 8:51 PM CDT) Neutrophil abs 6.41 1.50 - 6.50 K/cumm Imm gran abs 0.07 0.00 - 0.10 K/cumm [facility] Lymphocyte abs 1.50 0.80 - 3.30 K/cumm [facility] Monocyte abs 0.93(H) 0.20 - 0.80 K/cumm [facility] Eosinophil abs 0.05 0.00 - 0.50 K/cumm [facility] Basophil abs 0.06 0.00 - 0.10 K/cumm [facility] Neutrophil pct 71.0 % [facility] Comment: Interpretive Data Percent cell count reference ranges are not reported, since discordance with absolute values may lead to misinterpretation of CBC data. Current Interpretive Data was last revised on 2017. Imm gran pct 0.8 % [facility] Comment: Interpretive Data Percent cell count reference ranges are not reported, since discordance with absolute values may lead to misinterpretation of CBC data. Current Interpretive Data was last revised on 2017. Lymphocyte pct 16.6 % [facility] Comment: Interpretive Data Percent cell count reference ranges are not reported, since discordance with absolute values may lead to misinterpretation of CBC data. Current Interpretive Data was last revised on 2017. Monocyte pct 10.3 % [facility] Comment: Interpretive Data Percent cell count reference ranges are not reported, since discordance with absolute values may lead to misinterpretation of CBC data. Current Interpretive Data was last revised on 2017. Eosinophil pct 0.6 % [facility] Comment: Interpretive Data Percent cell count reference ranges are not reported, since discordance with absolute values may lead to misinterpretation of CBC data. Current Interpretive Data was last revised on 2017. Basophil pct 0.7 % [facility] Comment: Interpretive Data Percent cell count reference ranges are not reported, since discordance with absolute values may lead to misinterpretation of CBC data. Current Interpretive Data was last revised on 2017. Blood 08/28/2024 8:51 PM CDT 08/28/2024 9:20 PM CDT Elizabet Dickey MD LAB BLOOD ORDERABLES F inal Result [facility] Department [place] [address] * (ABNORMAL) CBC with auto differential (08/28/2024 8:51 PM CDT) WBC 9.02 3.80 - 9.90 K/cumm Hgb 7.9(L) 11.9 - 15.5 g/dL [facility] Hct 25.5(L) 35.6 - 45.5 % [facility] Plt 326 150 - 400 K/cumm [facility] MPV 10.1 9.1 - 12.3 fL [facility] RBC 2.88(L) 3.90 - 5.20 M/cumm [facility] MCV 88.5 81.3 - 96.4 fL [facility] MCH 27.4 27.1 - 33.3 pg [facility] MCHC 31.0(L) 32.3 - 35.7 g/dL [facility] RDW CV 17.6(H) 11.1 - 14.9 % [facility] RDW SD 53.8(H) 35.7 - 48.1 fL [facility] NRBC abs 0.03(H) 0.00 - 0.01 K/cumm [facility] Blood 08/28/2024 8:51 PM CDT 08/28/2024 9:20 PM CDT us Elizabet Dickey MD LAB BLOOD ORDERABLES F inal Result Performing Organization Address [facility] Co de Phone Number [facility] Department [place] [address] * Type and screen (08/28/2024 8:51 PM CDT) Pathologist [facility] ABO Rh A Positive Marybeth, indirect Negative [facility] Blood 08/28/2024 8:51 PM CDT 08/28/2024 9:37 PM CDT Narrative [facility] - 08/28/2024 10:56 PM CDT Has the patient had Daratumumab or Isatuximab in the past 6 months?->Unknown us Carla Penny MD LAB BLOOD BANK TEST ORDERABLES Final Result Performing Organization Address [facility] Co de Phone Number [facility] Department [place] [address] * (ABNORMAL) Comprehensive metabolic panel (08/28/2024 8:51 PM CDT) Sodium 137 135 - 145 mmol/L Potassium, pl 4.2 3.3 - 4.9 mmol/L [facility] Chloride 100 97 - 110 mmol/L [facility] CO2 27 22 - 32 mmol/L [facility] Anion gap 10 2 - 15 mmol/L [facility] BUN 14 6 - 25 mg/dL [facility] Creatinine 5.37(H) 0.60 - 1.10 mg/dL [facility] Glucose 101 70 - 199 mg/dL [facility] Comment: Interpretive Data Fasting glucose >/= 126 mg/dl is diagnostic for diabetes. Fasting is defined as no caloric intake for at least 8 hours. Fasting glucose between 100 mg/dl to 125 mg/dl is diagnostic of prediabetes. In a patient with classic symptoms of hyperglycemia or hyperglycemic crisis, a random glucose >/= 200 mg/dl is diagnostic for diabetes. In the absence of unequivocal hyperglycemia, results should be confirmed by repeat testing. The classification and Diagnosis of Diabetes Diabetes Care 2021; 46: S19-S40. Current interpretive data was last revised 2022. Calcium 7.9(L) 8.5 - 10.3 mg/dL [facility] Bilirubin, total 0.4 0.1 - 1.2 mg/dL [facility] Protein, pl 7.8 6.5 - 8.5 g/dL [facility] Albumin 1.9(L) 3.5 - 5.0 g/dL [facility] Alk phos 112 40 - 130 Units/L [facility] ALT 73(H) 7 - 45 Units/L [facility] AST 114(H) 10 - 45 Units/L [facility] Blood 08/28/2024 8:51 PM CDT 08/28/2024 9:20 PM CDT us Valerie Cooper MD PhD LAB BLOOD ORDERABLES Final Result Performing Organization Address [facility]/ZIP Co de Phone Number [facility] Department [place] [address] * POCT glucose (08/28/2024 8:07 PM CDT) [facility] Glucose, POC 107 70 - 199 mg/dL Blood 08/28/2024 8:07 PM CDT 08/28/2024 8:07 PM CDT us Elizabet Dickey MD LAB POCT ORDERABLES - DEVICE Final Result Performing Organization Address [facility]/State/ZIP Co de Phone Number [facility] [place] [address] * POCT glucose (08/28/2024 7:20 PM CDT) Glucose, POC 88 70 - 199 mg/dL Blood 08/28/2024 7:20 PM CDT 08/28/2024 7:20 PM CDT Elizabet Dickey MD LAB POCT ORDERABLES - DEVICE Final Result Performing Organization Address [facility] [place] [address] * (ABNORMAL) POCT glucose (08/28/2024 6:58 PM CDT) Glucose, POC 62(L) 70 - 199 mg/dL Blood 08/28/2024 6:58 PM CDT 08/28/2024 6:58 PM CDT Elizabet Dickey MD LAB POCT ORDERABLES - DEVICE Final Result Performing Organization Address [facility] Co de Phone Number [facility] [place] [address] * POCT glucose (08/28/2024 12:00 PM CDT) Glucose, POC 77 70 - 199 mg/dL Blood 08/28/2024 12:0 0 PM CDT 08/28/2024 12:00 PM CDT us Elizabet Dickey MD LAB POCT ORDERABLES - DEVICE Final Result Performing Organization Address [facility] Co de Phone Number [facility] [place] [address] * POCT glucose (08/28/2024 7:43 AM CDT) Glucose, POC 71 70 - 199 mg/dL Blood 08/28/2024 7:43 AM CDT 08/28/2024 7:43 AM CDT us Elizabet Dickey MD LAB POCT ORDERABLES - DEVICE Final Result Performing Organization Address [facility]/ZIP Co de Phone Number [facility] [place] [address] * (ABNORMAL) eGFR (08/27/2024 9:10 PM CDT) Pathologist [facility] eGFR 16(L) >=60 mL/min/1. 73 m2 Comment: Interpretive Data Reference Interval Normal >/= 90 mL/min/1.73m2 Mildly decreased* 60 - 89 mL/min/1.73m2 Mildly to moderately decreased 45 - 59 mL/min/1.73m2 Moderately to severely decreased 30 - 44 mL/min/1.73m2 Severely decreased 15 - 29 mL/min/1.73m2 Kidney Failure < 15 mL/min/1.73m2 *Relative to young adult level Estimated glomerular filtration rate is determined by the 2020 CKD-EPI equation recommended by the National Kidney Foundation (A Unifying Approach to GFR Estimation: Recommendations of the NKF-ASK Task Force on Reassessing the Inclusion of Race in Diagnosing Kidney Disease, JASN 2020). The CKD-EPI equation should not be used for patients with unstable renal function and has not been validated in children and those over 70. Current interpretive data was last reviewed 2021. Blood 08/27/2024 9:10 PM CDT 08/27/2024 9:45 PM CDT us Valerie Cooper MD PhD LAB BLOOD ORDERABLES Final Result Performing Organization Address [facility]/ZIP Co de Phone Number [facility] Department [place] [address] * (ABNORMAL) Comprehensive metabolic panel (08/27/2024 9:10 PM CDT) Sodium 132(L) 135 - 145 mmol/L Potassium, pl 3.5 3.3 - 4.9 mmol/L [facility] Chloride 99 97 - 110 mmol/L [facility] CO2 29 22 - 32 mmol/L [facility] Anion gap 4 2 - 15 mmol/L [facility] BUN 10 6 - 25 mg/dL [facility] Creatinine 3.79(H) 0.60 - 1.10 mg/dL [facility] Glucose 102 70 - 199 mg/dL [facility] Comment: Interpretive Data Fasting glucose >/= 126 mg/dl is diagnostic for diabetes. Fasting is defined as no caloric intake for at least 8 hours. Fasting glucose between 100 mg/dl to 125 mg/dl is diagnostic of prediabetes. In a patient with classic symptoms of hyperglycemia or hyperglycemic crisis, a random glucose >/= 200 mg/dl is diagnostic for diabetes. In the absence of unequivocal hyperglycemia, results should be confirmed by repeat testing. The classification and Diagnosis of Diabetes Diabetes Care 2021; 46: S19-S40. Current interpretive data was last revised 2022. Calcium 7.6(L) 8.5 - 10.3 mg/dL [facility] Bilirubin, total 0.4 0.1 - 1.2 mg/dL [facility] Protein, pl 7.2 6.5 - 8.5 g/dL [facility] Albumin 1.7(L) 3.5 - 5.0 g/dL [facility] Alk phos 108 40 - 130 Units/L [facility] ALT 54(H) 7 - 45 Units/L [facility] AST 101(H) 10 - 45 Units/L [facility] Blood 08/27/2024 9:10 PM CDT 08/27/2024 9:45 PM CDT us Valerie Cooper MD PhD LAB BLOOD ORDERABLES Final Result [facility] Department [place] [address] * POCT glucose (08/27/2024 6:28 PM CDT) Glucose, POC 80 70 - 199 mg/dL Blood 08/27/2024 6:28 PM CDT 08/27/2024 6:28 PM CDT Jone Vann MD LAB POCT ORDERABLES - DEVICE Final Result Performing Organization Address [facility] de Phone Number [facility] [place] [address] * POCT glucose (08/27/2024 4:35 PM CDT) Glucose, POC 79 70 - 199 mg/dL Blood 08/27/2024 4:35 PM CDT 08/27/2024 4:35 PM CDT Jone Vann MD LAB POCT ORDERABLES - DEVICE Final Result Performing Organization Address [facility] de Phone Number [facility] [place] [address] * POCT glucose (08/27/2024 11:13 AM CDT) Glucose, POC 76 70 - 199 mg/dL Blood 08/27/2024 11:1 3 AM CDT 08/27/2024 11:13 AM CDT Jone Vann MD LAB POCT ORDERABLES - DEVICE Final Result Performing Organization Address [facility] [place] [place] [address] * POCT glucose (08/27/2024 7:40 AM CDT) Glucose, POC 73 70 - 199 mg/dL Blood 08/27/2024 7:40 AM CDT 08/27/2024 7:40 AM CDT us Jone Vann MD LAB POCT ORDERABLES - DEVICE Final Result [facility] Department [place] [address] * XR Chest 1 View (08/27/2024 5:23 AM CDT) Anatomical Region Laterality Modality Body, Chest N/A Computed Radiogr aphy 08/27/2024 9:17 AM CDT Impressions 08/27/2024 9:17 AM CDT Comparison 08/26/2024 5:29 AM. Left internal jugular central venous catheter tip overlies the lower superior vena cava. Right internal jugular central venous catheter also overlies the superior vena cava. 2nd right internal jugular central venous catheter unchanged with tip overlying the right atrium. Cardiomediastinal silhouette stable. Moderate diffuse patchy airspace and interstitial opacities again seen, compatible with pulmonary edema and pneumonia, unchanged. Small bilateral pleural effusions right greater than left again noted. No pneumothorax seen. Electronically signed by: Vito Celestin M.D. Narrative 08/27/2024 9:17 AM CDT EXAMINATION: 1 view chest radiograph Procedure Note Vito Celestin MD - 08/27/2024 EXAMINATION: 1 view chest radiograph IMPRESSION: Comparison 08/26/2024 5:29 AM. Left internal jugular central venous catheter tip overlies the lower superior vena cava. Right internal jugular central venous catheter also overlies the superior vena cava. 2nd right internal jugular central venous catheter unchanged with tip overlying the right atrium. Cardiomediastinal silhouette stable. Moderate diffuse patchy airspace and interstitial opacities again seen, compatible with pulmonary edema and pneumonia, unchanged. Small bilateral pleural effusions right greater than left again noted. No pneumothorax seen. Electronically signed by: Vito Celestin M.D. us Jone Vann MD IMG XR PROCEDURES Final Resu lt * (ABNORMAL) eGFR (08/26/2024 9:49 PM CDT) eGFR 8(L) >=60 mL/min/1. 73 m2 Comment: Interpretive Data Reference Interval Normal >/= 90 mL/min/1.73m2 Mildly decreased* 60 - 89 mL/min/1.73m2 Mildly to moderately decreased 45 - 59 mL/min/1.73m2 Moderately to severely decreased 30 - 44 mL/min/1.73m2 Severely decreased 15 - 29 mL/min/1.73m2 Kidney Failure < 15 mL/min/1.73m2 *Relative to young adult level Estimated glomerular filtration rate is determined by the 2020 CKD-EPI equation recommended by the National Kidney Foundation (A Unifying Approach to GFR Estimation: Recommendations of the NKF-ASK Task Force on Reassessing the Inclusion of Race in Diagnosing Kidney Disease, JASN 2020). The CKD-EPI equation should not be used for patients with unstable renal function and has not been validated in children and those over 70. Current interpretive data was last reviewed 2021. Blood 08/26/2024 9:49 PM CDT 08/26/2024 10:32 PM CDT us Valerie Cooper MD PhD LAB BLOOD ORDERABLES Final Result [facility] Department [place] [address] * (ABNORMAL) Differential, auto (08/26/2024 9:49 PM CDT) [facility] Neutrophil abs 7.92(H) 1.50 - 6.50 K/cumm Imm gran abs 0.09 0.00 - 0.10 K/cumm [facility] Lymphocyte abs 1.87 0.80 - 3.30 K/cumm [facility] Monocyte abs 1.12(H) 0.20 - 0.80 K/cumm [facility] Eosinophil abs 0.13 0.00 - 0.50 K/cumm [facility] Basophil abs 0.07 0.00 - 0.10 K/cumm [facility] Neutrophil pct 70.7 % [facility] Comment: Interpretive Data Percent cell count reference ranges are not reported, since discordance with absolute values may lead to misinterpretation of CBC data. Current Interpretive Data was last revised on 2017. Imm gran pct 0.8 % [facility] Comment: Interpretive Data Percent cell count reference ranges are not reported, since discordance with absolute values may lead to misinterpretation of CBC data. Current Interpretive Data was last revised on 2017. Lymphocyte pct 16.7 % [facility] Comment: Interpretive Data Percent cell count reference ranges are not reported, since discordance with absolute values may lead to misinterpretation of CBC data. Current Interpretive Data was last revised on 2017. Monocyte pct 10.0 % [facility] Comment: Interpretive Data Percent cell count reference ranges are not reported, since discordance with absolute values may lead to misinterpretation of CBC data. Current Interpretive Data was last revised on 2017. Eosinophil pct 1.2 % [facility] Comment: Interpretive Data Percent cell count reference ranges are not reported, since discordance with absolute values may lead to misinterpretation of CBC data. Current Interpretive Data was last revised on 2017. Basophil pct 0.6 % [facility] Comment: Interpretive Data Percent cell count reference ranges are not reported, since discordance with absolute values may lead to misinterpretation of CBC data. Current Interpretive Data was last revised on 2017. Blood 08/26/2024 9:49 PM CDT 08/26/2024 10:33 PM CDT us Jone Vann MD LAB BLOOD ORDERABLES Final R esult [facility] Department [place] [address] * (ABNORMAL) CBC with auto differential (08/26/2024 9:49 PM CDT) WBC 11.20(H) 3.80 - 9.90 K/cumm Hgb 7.7(L) 11.9 - 15.5 g/dL [facility] Hct 24.4(L) 35.6 - 45.5 % [facility] Plt 299 150 - 400 K/cumm [facility] MPV 10.1 9.1 - 12.3 fL [facility] RBC 2.74(L) 3.90 - 5.20 M/cumm [facility] MCV 89.1 81.3 - 96.4 fL [facility] MCH 28.1 27.1 - 33.3 pg [facility] MCHC 31.6(L) 32.3 - 35.7 g/dL [facility] RDW CV 16.8(H) 11.1 - 14.9 % [facility] RDW SD 52.7(H) 35.7 - 48.1 fL [facility] NRBC abs 0.00 0.00 - 0.01 K/cumm [facility] Blood 08/26/2024 9:49 PM CDT 08/26/2024 10:33 PM CDT us Jone Vann MD LAB BLOOD ORDERABLES Final R esult [facility] Department [place] [address] * (ABNORMAL) Comprehensive metabolic panel (08/26/2024 9:49 PM CDT) Sodium 136 135 - 145 mmol/L Potassium, pl 4.5 3.3 - 4.9 mmol/L [facility] Chloride 100 97 - 110 mmol/L [facility] CO2 27 22 - 32 mmol/L [facility] Anion gap 9 2 - 15 mmol/L [facility] BUN 23 6 - 25 mg/dL [facility] Creatinine 6.49(H) 0.60 - 1.10 mg/dL [facility] Glucose 77 70 - 199 mg/dL [facility] Comment: Interpretive Data Fasting glucose >/= 126 mg/dl is diagnostic for diabetes. Fasting is defined as no caloric intake for at least 8 hours. Fasting glucose between 100 mg/dl to 125 mg/dl is diagnostic of prediabetes. In a patient with classic symptoms of hyperglycemia or hyperglycemic crisis, a random glucose >/= 200 mg/dl is diagnostic for diabetes. In the absence of unequivocal hyperglycemia, results should be confirmed by repeat testing. The classification and Diagnosis of Diabetes Diabetes Care 2021; 46: S19-S40. Current interpretive data was last revised 2022. Calcium 8.0(L) 8.5 - 10.3 mg/dL [facility] Bilirubin, total 0.4 0.1 - 1.2 mg/dL [facility] Protein, pl 7.8 6.5 - 8.5 g/dL [facility] Albumin 2.0(L) 3.5 - 5.0 g/dL [facility] Alk phos 113 40 - 130 Units/L [facility] ALT 33 7 - 45 Units/L [facility] AST 50(H) 10 - 45 Units/L [facility] Blood 08/26/2024 9:49 PM CDT 08/26/2024 10:32 PM CDT us Valerie Cooper MD PhD LAB BLOOD ORDERABLES Final Result Performing Organization Address City/[facility]/ZIP Co de Phone Number [facility] Department [place] [address] * POCT glucose (08/26/2024 9:04 PM CDT) Glucose, POC 93 70 - 199 mg/dL Blood 08/26/2024 9:04 PM CDT 08/26/2024 9:04 PM CDT us Jone Vann MD LAB POCT ORDERABLES - DEVICE Final Result [facility] Department [place] [address] * POCT glucose (08/26/2024 7:05 PM CDT) Glucose, POC 110 70 - 199 mg/dL Blood 08/26/2024 7:05 PM CDT 08/26/2024 7:05 PM CDT us Jone Vann MD LAB POCT ORDERABLES - DEVICE Final Result Performing Organization Address [facility] Co de Phone Number [facility] [place] [address] * POCT glucose (08/26/2024 1:17 PM CDT) Glucose, POC 126 70 - 199 mg/dL Blood 08/26/2024 1:17 PM CDT 08/26/2024 1:17 PM CDT Jone Vann MD LAB POCT ORDERABLES - DEVICE Final Result Performing Organization Address [facility] Co de Phone Number [employer] [place] [address] * POCT glucose (08/26/2024 8:18 AM CDT) Glucose, POC 101 70 - 199 mg/dL Blood 08/26/2024 8:18 AM CDT 08/26/2024 8:18 AM CDT Jone Vann MD LAB POCT ORDERABLES - DEVICE Final Result Performing Organization Address [facility] Co de Phone Number [facility] [place] [address] * XR Chest 1 View (08/26/2024 5:41 AM CDT) Anatomical Region Laterality Modality Body, Chest N/A Computed Radiogr aphy 08/26/2024 7:15 AM CDT Impressions 08/26/2024 7:15 AM CDT Comparison 08/25/2024. Bilateral internal jugular vein central venous catheters are in unchanged positioning. Opacities throughout the lungs corresponding to pleural effusions and atelectasis as well as the patient's septic pulmonary emboli are again seen, unchanged. No new airspace opacity is seen. The heart size is unchanged. Electronically signed by: Arnulfo Gramajo M.D. Narrative 08/26/2024 7:15 AM CDT EXAMINATION: 1 view chest radiograph Procedure Note Arnulfo Gramajo MD - 08/26/2024 EXAMINATION: 1 view chest radiograph IMPRESSION: Comparison 08/25/2024. Bilateral internal jugular vein central venous catheters are in unchanged positioning. Opacities throughout the lungs corresponding to pleural effusions and atelectasis as well as the patient's septic pulmonary emboli are again seen, unchanged. No new airspace opacity is seen. The heart size is unchanged. Electronically signed by: Arnulfo Gramajo M.D. Jone Vann MD IMG XR PROCEDURES Final Resu lt * Transfuse RBC (08/26/2024 3:30 AM CDT) Blood Carla Penny MD BLOOD TRANSFUSI ON ORDERABLES Final Result Performing Organization Address [facility] Co de Phone Number [facility] [place] [address] * Type and screen (08/26/2024 12:28 AM CDT) ABO Rh A Positive Marybeth, indirect Negative [facility] Blood 08/26/2024 12:2 8 AM CDT 08/26/2024 12:49 AM CDT Narrative [facility] - 08/26/2024 1:58 AM CDT Has the patient had Daratumumab or Isatuximab in the past 6 months?->Unknown Carla Penny MD LAB BLOOD BANK TEST ORDERABLES Final Result Performing Organization Address City/[facility]/ZIP Co de Phone Number [facility] [place] [address] * Prepare RBC: 1 Units (08/26/2024 12:06 AM CDT) Product code [id number] Unit Number [id number] [facility] Product Blood Type APOS [facility] Dispense Status PRESUMED TRANSFUSED [facility] Blood 08/26/2024 12:0 6 AM CDT 08/26/2024 12:06 AM CDT Narrative [facility] - 08/26/2024 4:01 PM CDT Are special requirements needed? (All products are leukoreduced and CMV- safe)- >No Date required:-[id number] LRRBC # of [id number] Reasons:-Hgb <7 g/dL} Carla Penny MD BLOOD BANK PROD UCT ORDERABLES Final Result [facility] Department [place] [address] * (ABNORMAL) eGFR (08/25/2024 10:15 PM CDT) eGFR 12(L) >=60 mL/min/1. 73 m2 Comment: Interpretive Data Reference Interval Normal >/= 90 mL/min/1.73m2 Mildly decreased* 60 - 89 mL/min/1.73m2 Mildly to moderately decreased 45 - 59 mL/min/1.73m2 Moderately to severely decreased 30 - 44 mL/min/1.73m2 Severely decreased 15 - 29 mL/min/1.73m2 Kidney Failure < 15 mL/min/1.73m2 *Relative to young adult level Estimated glomerular filtration rate is determined by the 2020 CKD-EPI equation recommended by the National Kidney Foundation (A Unifying Approach to GFR Estimation: Recommendations of the NKF-ASK Task Force on Reassessing the Inclusion of Race in Diagnosing Kidney Disease, JASN 2020). The CKD-EPI equation should not be used for patients with unstable renal function and has not been validated in children and those over 70. Current interpretive data was last reviewed 2021. Blood 08/25/2024 10:1 5 PM CDT 08/25/2024 11:23 PM CDT us Valerie Cooper MD PhD LAB BLOOD ORDERABLES Final Result [facility] Department [place] [address] * (ABNORMAL) Differential, auto (08/25/2024 10:15 PM CDT) Neutrophil abs 5.78 1.50 - 6.50 K/cumm Imm gran abs 0.08 0.00 - 0.10 K/cumm [facility] Lymphocyte abs 1.71 0.80 - 3.30 K/cumm [facility] Monocyte abs 0.92(H) 0.20 - 0.80 K/cumm [facility] Eosinophil abs 0.18 0.00 - 0.50 K/cumm [facility] Basophil abs 0.08 0.00 - 0.10 K/cumm [facility] Neutrophil pct 66.1 % [facility] Comment: Interpretive Data Percent cell count reference ranges are not reported, since discordance with absolute values may lead to misinterpretation of CBC data. Current Interpretive Data was last revised on 2017. Imm gran pct 0.9 % [facility] Comment: Interpretive Data Percent cell count reference ranges are not reported, since discordance with absolute values may lead to misinterpretation of CBC data. Current Interpretive Data was last revised on 2017. Lymphocyte pct 19.5 % [facility] Comment: Interpretive Data Percent cell count reference ranges are not reported, since discordance with absolute values may lead to misinterpretation of CBC data. Current Interpretive Data was last revised on 2017. Monocyte pct 10.5 % [facility] Comment: Interpretive Data Percent cell count reference ranges are not reported, since discordance with absolute values may lead to misinterpretation of CBC data. Current Interpretive Data was last revised on 2017. Eosinophil pct 2.1 % [facility] Comment: Interpretive Data Percent cell count reference ranges are not reported, since discordance with absolute values may lead to misinterpretation of CBC data. Current Interpretive Data was last revised on 2017. Basophil pct 0.9 % [facility] Comment: Interpretive Data Percent cell count reference ranges are not reported, since discordance with absolute values may lead to misinterpretation of CBC data. Current Interpretive Data was last revised on 2017. Blood 08/25/2024 10:1 5 PM CDT 08/25/2024 11:24 PM CDT Jone Vann MD LAB BLOOD ORDERABLES Final R esult [facility] Department [place] [address] * (ABNORMAL) CBC with auto differential (08/25/2024 10:15 PM CDT) WBC 8.75 3.80 - 9.90 K/cumm Hgb 6.0(C) 11.9 - 15.5 g/dL [facility] Comment:This result has been called to [employer] by [email or web address] on 08/25/2024 23:56:58, and has been read back. Hct 19.4(L) 35.6 - 45.5 % [facility] Plt 297 150 - 400 K/cumm [facility] MPV 10.0 9.1 - 12.3 fL [facility] RBC 2.19(L) 3.90 - 5.20 M/cumm [facility] MCV 88.6 81.3 - 96.4 fL [facility] MCH 27.4 27.1 - 33.3 pg [facility] MCHC 30.9(L) 32.3 - 35.7 g/dL [facility] RDW CV 16.6(H) 11.1 - 14.9 % [facility] RDW SD 53.2(H) 35.7 - 48.1 fL [facility] NRBC abs 0.00 0.00 - 0.01 K/cumm [facility] Blood 08/25/2024 10:1 5 PM CDT 08/25/2024 11:24 PM CDT Jone Vann MD LAB BLOOD ORDERABLES Final R esult [facility] Department [place] [address] * (ABNORMAL) Comprehensive metabolic panel (08/25/2024 10:15 PM CDT) Sodium 136 135 - 145 mmol/L Potassium, pl 3.5 3.3 - 4.9 mmol/L [facility] Chloride 104 97 - 110 mmol/L [facility] CO2 28 22 - 32 mmol/L [facility] Anion gap 4 2 - 15 mmol/L [facility] BUN 17 6 - 25 mg/dL [facility] Creatinine 4.77(H) 0.60 - 1.10 mg/dL [facility] Glucose 136 70 - 199 mg/dL [facility] Comment: Interpretive Data Fasting glucose >/= 126 mg/dl is diagnostic for diabetes. Fasting is defined as no caloric intake for at least 8 hours. Fasting glucose between 100 mg/dl to 125 mg/dl is diagnostic of prediabetes. In a patient with classic symptoms of hyperglycemia or hyperglycemic crisis, a random glucose >/= 200 mg/dl is diagnostic for diabetes. In the absence of unequivocal hyperglycemia, results should be confirmed by repeat testing. The classification and Diagnosis of Diabetes Diabetes Care 202; 46: S19-S40. Current interpretive data was last revised 2022. Calcium 7.1(L) 8.5 - 10.3 mg/dL [facility] Bilirubin, total 0.3 0.1 - 1.2 mg/dL [facility] Protein, pl 6.6 6.5 - 8.5 g/dL [facility] Albumin 1.6(L) 3.5 - 5.0 g/dL [facility] Alk phos 112 40 - 130 Units/L [facility] ALT 32 7 - 45 Units/L [facility] AST 57(H) 10 - 45 Units/L [facility] Blood 08/25/2024 10:1 5 PM CDT 08/25/2024 11:23 PM CDT Valerie Cooper MD PhD LAB BLOOD ORDERABLES Final Result Performing Organization Address City/[facility]/ZIP Co de Phone Number [facility] Department [place] [address] * POCT glucose (08/25/2024 6:00 PM CDT) Glucose, POC 103 70 - 199 mg/dL Blood 08/25/2024 6:00 PM CDT 08/25/2024 6:00 PM CDT Jone Vann MD LAB POCT ORDERABLES - DEVICE Final Result Performing Organization Address [facility] Co de Phone Number [facility] Department [place] [address] * XR Abdomen Ap 1 Vw (08/25/2024 5:01 PM CDT) Anatomical Region Laterality Modality Body, Abdomen N/A Computed Radiogr aphy 08/25/2024 8:46 PM CDT Impressions 08/25/2024 8:46 PM CDT Stool is present throughout the colon. An intrauterine device projects over the pelvis. There is nonobstructive bowel gas pattern without pneumatosis or portal venous gas. Mild atelectasis is present at the lung bases. Electronically signed by: Darnell Padron M.D. Narrative 08/25/2024 8:46 PM CDT EXAMINATION: Abdomen, one view. HISTORY: Constipation. COMPARISON: CT dated 08/07/2024 Procedure Note Darnell Padron MD PhD - 08/25/2024 EXAMINATION: Abdomen, one view. HISTORY: Constipation. COMPARISON: CT dated 08/07/2024 IMPRESSION: Stool is present throughout the colon. An intrauterine device projects over the pelvis. There is nonobstructive bowel gas pattern without pneumatosis or portal venous gas. Mild atelectasis is present at the lung bases. Electronically signed by: Darnell Padron M.D. Jone Vann MD IMG XR PROCEDURES Final Resu lt * (ABNORMAL) POCT glucose (08/25/2024 1:48 PM CDT) Glucose, POC 69(L) 70 - 199 mg/dL Blood 08/25/2024 1:48 PM CDT 08/25/2024 1:48 PM CDT Jone Vann MD LAB POCT ORDERABLES - DEVICE Final Result Performing Organization Address City/[facility] Co de Phone Number [facility] [place] [address] * POCT glucose (08/25/2024 10:54 AM CDT) Glucose, POC 73 70 - 199 mg/dL Blood 08/25/2024 10:5 4 AM CDT 08/25/2024 10:54 AM CDT Jone Vann MD LAB POCT ORDERABLES - DEVICE Final Result Performing Organization Address [facility] Phone Number [facility] Department [place] [address] * POCT glucose (08/25/2024 10:29 AM CDT) Glucose, POC 75 70 - 199 mg/dL Blood 08/25/2024 10:2 9 AM CDT 08/25/2024 10:29 AM CDT Jone Vann MD LAB POCT ORDERABLES - DEVICE Final Result Performing Organization Address City/[facility] Co de Phone Number [facility] [place] [address] * (ABNORMAL) POCT glucose (08/25/2024 9:54 AM CDT) Glucose, POC 67(L) 70 - 199 mg/dL Blood 08/25/2024 9:54 AM CDT 08/25/2024 9:54 AM CDT us Jone Vann MD LAB POCT ORDERABLES - DEVICE Final Result [facility] Department [place] [address] * XR Chest 1 View (08/25/2024 6:41 AM CDT) Anatomical Region Laterality Modality Body, Chest N/A Computed Radiogr aphy 08/25/2024 9:05 AM CDT Impressions 08/25/2024 9:26 AM CDT The current study is compared with the prior radiograph dated 08/24/2024 at 6:50 AM. Right internal jugular venous approach catheter tip overlying the right atrium. Right internal jugular venous approach catheter tip overlying the superior cavoatrial junction. Left internal jugular venous approach catheter with tip overlying the superior cavoatrial junction. Interval removal of the left-sided pleural pigtail catheter. No pneumothorax. Small right pleural effusion. Possible trace left pleural effusion. Peripheral nodular opacities within the bilateral lungs are better evaluated on prior CT dated 08/19/2024 and compatible with patient's known septic emboli. Stable cardiac mediastinal silhouette. Dictated by: Matthieu Mattson M.D. The radiology attending physician has personally reviewed this study, and had reviewed and/or edited this written report and agrees with it. Electronically signed by: Clifford Wasserman M.D. Narrative 08/25/2024 9:26 AM CDT EXAMINATION: 1 view chest radiograph Procedure Note Clifford Wasserman MD - 08/25/2024 EXAMINATION: 1 view chest radiograph IMPRESSION: The current study is compared with the prior radiograph dated 08/24/2024 at 6:50 AM. Right internal jugular venous approach catheter tip overlying the right atrium. Right internal jugular venous approach catheter tip overlying the superior cavoatrial junction. Left internal jugular venous approach catheter with tip overlying the superior cavoatrial junction. Interval removal of the left-sided pleural pigtail catheter. No pneumothorax. Small right pleural effusion. Possible trace left pleural effusion. Peripheral nodular opacities within the bilateral lungs are better evaluated on prior CT dated 08/19/2024 and compatible with patient's known septic emboli. Stable cardiac mediastinal silhouette. Dictated by: Matthieu Mattson M.D. The radiology attending physician has personally reviewed this study, and had reviewed and/or edited this written report and agrees with it. Electronically signed by: Clifford Wasserman M.D. us Jone Vann MD IMG XR PROCEDURES Final Resu lt * (ABNORMAL) eGFR (08/24/2024 8:32 PM CDT) eGFR 16(L) >=60 mL/min/1. 73 m2 Comment: Interpretive Data Reference Interval Normal >/= 90 mL/min/1.73m2 Mildly decreased* 60 - 89 mL/min/1.73m2 Mildly to moderately decreased 45 - 59 mL/min/1.73m2 Moderately to severely decreased 30 - 44 mL/min/1.73m2 Severely decreased 15 - 29 mL/min/1.73m2 Kidney Failure < 15 mL/min/1.73m2 *Relative to young adult level Estimated glomerular filtration rate is determined by the 2020 CKD-EPI equation recommended by the National Kidney Foundation (A Unifying Approach to GFR Estimation: Recommendations of the NKF-ASK Task Force on Reassessing the Inclusion of Race in Diagnosing Kidney Disease, JASN 202). The CKD-EPI equation should not be used for patients with unstable renal function and has not been validated in children and those over 70. Current interpretive data was last reviewed 2021. Blood 08/24/2024 8:32 PM CDT 08/24/2024 9:25 PM CDT us Valerie Cooper MD PhD LAB BLOOD ORDERABLES Final Result [facility] Department [place] [address] * (ABNORMAL) Comprehensive metabolic panel (08/24/2024 8:32 PM CDT) Sodium 133(L) 135 - 145 mmol/L Potassium, pl 3.7 3.3 - 4.9 mmol/L [facility] Chloride 97 97 - 110 mmol/L [facility] CO2 33(H) 22 - 32 mmol/L [facility] [facility] [facility] Anion gap 3 2 - 15 mmol/L [facility] BUN 11 6 - 25 mg/dL [facility] [facility] Creatinine 3.70(H) 0.60 - 1.10 mg/dL [facility] Glucose 77 70 - 199 mg/dL [facility] Comment: Interpretive Data Fasting glucose >/= 126 mg/dl is diagnostic for diabetes. Fasting is defined as no caloric intake for at least 8 hours. Fasting glucose between 100 mg/dl to 125 mg/dl is diagnostic of prediabetes. In a patient with classic symptoms of hyperglycemia or hyperglycemic crisis, a random glucose >/= 200 mg/dl is diagnostic for diabetes. In the absence of unequivocal hyperglycemia, results should be confirmed by repeat testing. The classification and Diagnosis of Diabetes Diabetes Care 202; 46: S19-S40. Current interpretive data was last revised 2022. Calcium 8.0(L) 8.5 - 10.3 mg/dL [facility] Bilirubin, total 0.4 0.1 - 1.2 mg/dL [facility] Protein, pl 7.6 6.5 - 8.5 g/dL [facility] Albumin 1.7(L) 3.5 - 5.0 g/dL [facility] Alk phos 87 40 - 130 Units/L [facility] ALT 32 7 - 45 Units/L [facility] AST 66(H) 10 - 45 Units/L [facility] Blood 08/24/2024 8:32 PM CDT 08/24/2024 9:25 PM CDT us Valerie Cooper MD PhD LAB BLOOD ORDERABLES Final Result [facility] Department [place] [address] * POCT glucose (08/24/2024 8:18 PM CDT) Glucose, POC 134 70 - 199 mg/dL Blood 08/24/2024 8:18 PM CDT 08/24/2024 8:18 PM CDT Jone Vann MD LAB POCT ORDERABLES - DEVICE Final Result Performing Organization Address City[facility] Co de Phone Number [facility] [place] [address] * POCT glucose (08/24/2024 6:24 PM CDT) Glucose, POC 103 70 - 199 mg/dL Blood 08/24/2024 6:24 PM CDT 08/24/2024 6:24 PM CDT Jone Vann MD LAB POCT ORDERABLES - DEVICE Final Result Performing Organization Address [facility] [place] [address] * (ABNORMAL) POCT glucose (08/24/2024 5:45 PM CDT) Glucose, POC 69(L) 70 - 199 mg/dL Comment:Glu2: RN/ Notified Glucose comment 1 Glu2: RN/MD Notified [facility] Blood 08/24/2024 5:45 PM CDT 08/24/2024 5:45 PM CDT Jone Vann MD LAB POCT ORDERABLES - DEVICE Final Result Performing Organization Address City/[facility] Co de Phone Number [facility] [place] [address] * POCT glucose (08/24/2024 1:46 PM CDT) Glucose, POC 108 70 - 199 mg/dL Blood 08/24/2024 1:46 PM CDT 08/24/2024 1:46 PM CDT Jone Vann MD LAB POCT ORDERABLES - DEVICE Final Result Performing Organization Address [facility] Co de Phone Number [facility] [place] [address] * POCT glucose (08/24/2024 1:30 PM CDT) Glucose, POC 90 70 - 199 mg/dL Blood 08/24/2024 1:30 PM CDT 08/24/2024 1:30 PM CDT Jone Vann MD LAB POCT ORDERABLES - DEVICE Final Result Performing Organization Address [facility] de Phone Number [facility] [place] [address] * (ABNORMAL) POCT glucose (08/24/2024 1:09 PM CDT) [facility] Signature Glucose, POC 68(L) 70 - 199 mg/dL Comment:Glu2: RN/MD Notified Glucose comment 1 Glu2: RN/MD Notified [facility] Blood 08/24/2024 1:09 PM CDT 08/24/2024 1:09 PM CDT Jone Vann MD LAB POCT ORDERABLES - DEVICE Final Result Performing Organization Address [facility] [place] [place] [address] * (ABNORMAL) POCT glucose (08/24/2024 12:30 PM CDT) Glucose, POC 61(L) 70 - 199 mg/dL Blood 08/24/2024 12:3 0 PM CDT 08/24/2024 12:30 PM CDT Jone Vann MD LAB POCT ORDERABLES - DEVICE Final Result Performing Organization Address [facility] Co de Phone Number [facility] [place] [address] * POCT glucose (08/24/2024 9:18 AM CDT) Glucose, POC 86 70 - 199 mg/dL Blood 08/24/2024 9:18 AM CDT 08/24/2024 9:18 AM CDT Jone Vann MD LAB POCT ORDERABLES - DEVICE Final Result Performing Organization Address [facility] de Phone Number [facility] Department [place] [address] * POCT glucose (08/24/2024 8:26 AM CDT) Glucose, POC 70 70 - 199 mg/dL Blood 08/24/2024 8:26 AM CDT 08/24/2024 8:26 AM CDT Jone Vann MD LAB POCT ORDERABLES - DEVICE Final Result Performing Organization Address City/[facility] [place] [place] [address] * Hepatitis B surface antibody (immune status) Blood (08/24/2024 7:54 AM CDT) Pathologist [facility] HBsAb (immune status) Reactive Comment:This result is consi stent with immunity to Hepatitis B Virus when used in the setting of routine screening. Current interpretive data was last revised on 21 HBsAb (immune status) index 127.0 mIUnits/m L [facility] Blood 08/24/2024 7:54 AM CDT 08/24/2024 8:35 AM CDT Nikita Umanzor MD LAB MICROBIOLOGY - GENERAL ORDER MARTINEZ Final Result [facility] Department [place] [address] * XR Chest 1 View (08/24/2024 7:02 AM CDT) Anatomical Region Laterality Modality Body, Chest N/A Computed Radiogr aphy 08/24/2024 9:33 AM CDT Impressions 08/24/2024 9:33 AM CDT Comparison 08/23/2024 1:09 AM. Left pleural catheter again seen. Right internal jugular central venous catheter again seen with tip at superior cavoatrial junction. 2nd right internal jugular central venous catheter seen but the tip is obscured. Left internal jugular central venous catheter again noted with the tip overlying the lower superior vena cava. Peripheral nodular opacities within both lungs with possible areas of cavitation seen compatible with septic emboli, unchanged. Small loculated left pleural effusion again seen. Small right pleural effusion unchanged. No pneumothorax seen. Cardiomediastinal silhouette stable. Electronically signed by: Vito Celestin M.D. Narrative 08/24/2024 9:33 AM CDT EXAMINATION: 1 view chest radiograph Procedure Note Vito Celestin MD - 08/24/2024 EXAMINATION: 1 view chest radiograph IMPRESSION: Comparison 08/23/2024 1:09 AM. Left pleural catheter again seen. Right internal jugular central venous catheter again seen with tip at superior cavoatrial junction. 2nd right internal jugular central venous catheter seen but the tip is obscured. Left internal jugular central venous catheter again noted with the tip overlying the lower superior vena cava. Peripheral nodular opacities within both lungs with possible areas of cavitation seen compatible with septic emboli, unchanged. Small loculated left pleural effusion again seen. Small right pleural effusion unchanged. No pneumothorax seen. Cardiomediastinal silhouette stable. Electronically signed by: Vito Celestin M.D. us Jone Vann MD IMG XR PROCEDURES Final Resu lt * (ABNORMAL) eGFR (08/23/2024 8:55 PM CDT) Pathologist [facility] eGFR 10(L) >=60 mL/min/1. 73 m2 Comment: Interpretive Data Reference Interval Normal >/= 90 mL/min/1.73m2 Mildly decreased* 60 - 89 mL/min/1.73m2 Mildly to moderately decreased 45 - 59 mL/min/1.73m2 Moderately to severely decreased 30 - 44 mL/min/1.73m2 Severely decreased 15 - 29 mL/min/1.73m2 Kidney Failure < 15 mL/min/1.73m2 *Relative to young adult level Estimated glomerular filtration rate is determined by the 2020 CKD-EPI equation recommended by the National Kidney Foundation (A Unifying Approach to GFR Estimation: Recommendations of the NKF-ASK Task Force on Reassessing the Inclusion of Race in Diagnosing Kidney Disease, JASN 2020). The CKD-EPI equation should not be used for patients with unstable renal function and has not been validated in children and those over 70. Current interpretive data was last reviewed 2021. Blood 08/23/2024 8:55 PM CDT 08/23/2024 9:41 PM CDT us Valerie Cooper MD PhD LAB BLOOD ORDERABLES Final Result [facility] Department [place] [address] * (ABNORMAL) Differential, auto (08/23/2024 8:55 PM CDT) Neutrophil abs 7.74(H) 1.50 - 6.50 K/cumm Imm gran abs 0.07 0.00 - 0.10 K/cumm [facility] Lymphocyte abs 1.68 0.80 - 3.30 K/cumm [facility] Monocyte abs 0.91(H) 0.20 - 0.80 K/cumm [facility] Eosinophil abs 0.20 0.00 - 0.50 K/cumm [facility] Basophil abs 0.10 0.00 - 0.10 K/cumm [facility] Neutrophil pct 72.3 % [facility] Comment: Interpretive Data Percent cell count reference ranges are not reported, since discordance with absolute values may lead to misinterpretation of CBC data. Current Interpretive Data was last revised on 2017. Imm gran pct 0.7 % [facility] Comment: Interpretive Data Percent cell count reference ranges are not reported, since discordance with absolute values may lead to misinterpretation of CBC data. Current Interpretive Data was last revised on 2017. Lymphocyte pct 15.7 % [facility] Comment: Interpretive Data Percent cell count reference ranges are not reported, since discordance with absolute values may lead to misinterpretation of CBC data. Current Interpretive Data was last revised on 2017. Monocyte pct 8.5 % [facility] Comment: Interpretive Data Percent cell count reference ranges are not reported, since discordance with absolute values may lead to misinterpretation of CBC data. Current Interpretive Data was last revised on 2017. Eosinophil pct 1.9 % [facility] Comment: Interpretive Data Percent cell count reference ranges are not reported, since discordance with absolute values may lead to misinterpretation of CBC data. Current Interpretive Data was last revised on 2017. Basophil pct 0.9 % [facility] Comment: Interpretive Data Percent cell count reference ranges are not reported, since discordance with absolute values may lead to misinterpretation of CBC data. Current Interpretive Data was last revised on 2017. Blood 08/23/2024 8:55 PM CDT 08/23/2024 9:40 PM CDT us Jone Vann MD LAB BLOOD ORDERABLES Final R esult [facility] [employer] [facility] [facility] Department [place] [address] * (ABNORMAL) CBC with auto differential (08/23/2024 8:55 PM CDT) WBC 10.70(H) 3.80 - 9.90 K/cumm Hgb 7.5(L) 11.9 - 15.5 g/dL [facility] Hct 23.5(L) 35.6 - 45.5 % [facility] Plt 300 150 - 400 K/cumm [facility] MPV 9.7 9.1 - 12.3 fL [facility] RBC 2.67(L) 3.90 - 5.20 M/cumm [facility] MCV 88.0 81.3 - 96.4 fL [facility] MCH 28.1 27.1 - 33.3 pg [facility] MCHC 31.9(L) 32.3 - 35.7 g/dL [facility] RDW CV 16.4(H) 11.1 - 14.9 % [facility] RDW SD 51.8(H) 35.7 - 48.1 fL [facility] NRBC abs 0.00 0.00 - 0.01 K/cumm [facility] Blood 08/23/2024 8:55 PM CDT 08/23/2024 9:40 PM CDT us Jone Vann MD LAB BLOOD ORDERABLES Final R esult Performing Organization Address City/[facility]/ZIP Co de Phone Number [facility] Department [place] [address] * Type and screen (08/23/2024 8:55 PM CDT) Marybeth, indirect Negative ABO Rh A Positive [facility] Blood 08/23/2024 8:55 PM CDT 08/23/2024 9:43 PM CDT Narrative [facility] - 08/23/2024 10:59 PM CDT Has the patient had Daratumumab or Isatuximab in the past 6 months?->Unknown us Royal Weiss MD LAB BLOOD BANK TEST ORDER MARTINEZ Final Result Performing Organization Address City/[facility]/ZIP Co de Phone Number [facility] Department [place] [address] * (ABNORMAL) Comprehensive metabolic panel (08/23/2024 8:55 PM CDT) Sodium 133(L) 135 - 145 mmol/L Potassium, pl 4.6 3.3 - 4.9 mmol/L [facility] [employer] [facility] [employer] [facility] [facility] Chloride 97 97 - 110 mmol/L [facility] CO2 32 22 - 32 mmol/L [facility] [employer] [facility] [facility] [facility] Anion gap 4 2 - 15 mmol/L [facility] BUN 21 6 - 25 mg/dL [facility] Creatinine 5.43(H) 0.60 - 1.10 mg/dL [facility] [facility] [facility] Glucose 75 70 - 199 mg/dL [facility] Comment: Interpretive Data Fasting glucose >/= 126 mg/dl is diagnostic for diabetes. Fasting is defined as no caloric intake for at least 8 hours. Fasting glucose between 100 mg/dl to 125 mg/dl is diagnostic of prediabetes. In a patient with classic symptoms of hyperglycemia or hyperglycemic crisis, a random glucose >/= 200 mg/dl is diagnostic for diabetes. In the absence of unequivocal hyperglycemia, results should be confirmed by repeat testing. The classification and Diagnosis of Diabetes Diabetes Care 2021; 46: S19-S40. Current interpretive data was last revised 2022. Calcium 8.3(L) 8.5 - 10.3 mg/dL [facility] Bilirubin, total 0.4 0.1 - 1.2 mg/dL [facility] Protein, pl 7.6 6.5 - 8.5 g/dL [facility] Albumin 1.9(L) 3.5 - 5.0 g/dL [facility] Alk phos 86 40 - 130 Units/L [facility] ALT 14 7 - 45 Units/L [facility] AST 39 10 - 45 Units/L [facility] Blood 08/23/2024 8:55 PM CDT 08/23/2024 9:41 PM CDT us Valerie Cooper MD PhD LAB BLOOD ORDERABLES Final Result [facility] Department [place] [address] * POCT glucose (08/23/2024 8:21 PM CDT) Glucose, POC 85 70 - 199 mg/dL Blood 08/23/2024 8:21 PM CDT 08/23/2024 8:21 PM CDT Jone Vann MD LAB POCT ORDERABLES - DEVICE Final Result Performing Organization Address City/[facility]/ZIP Co [place] [address] * POCT glucose (08/23/2024 5:55 PM CDT) Glucose, POC 87 70 - 199 mg/dL Blood 08/23/2024 5:55 PM CDT 08/23/2024 5:55 PM CDT Jone Vann MD LAB POCT ORDERABLES - DEVICE Final Result Performing Organization Address [facility] [place] [address] * IR Tunneled Line Placement > 5 Years (08/23/2024 1:37 PM CDT) Anatomical Region Laterality Modality Body N/A Ultrasound 08/23/2024 3:15 PM CDT Impressions 08/28/2024 9:03 AM CDT Successful tunneled dialysis catheter and tunneled power line placement via the right internal jugular vein. PLAN: The catheter is ready for immediate use. When treatment is completed, removal can be scheduled by calling [facility] - [phone] [facility] - [phone] Dictated by: Betzaida Owusu M.D. The radiology attending physician has personally reviewed this study, and had reviewed and/or edited this written report and agrees with it. Electronically signed by: Royal Salinas M.D. Narrative 08/28/2024 9:03 AM CDT EXAMINATION: TWO TUNNELED CENTRAL VENOUS CATHETER PLACEMENTS USING ULTRASOUND GUIDANCE HISTORY/INDICATION: 28-year-old woman with polysubstance use, hepatitis C, and tricuspid valve endocarditis with MRSA bacteremia and discitis/osteomyelitis with severe MARIELENA requiring long-term hemodialysis. A tunneled power line was also requested for IV access. ATTENDING PRESENCE: Royal Salinas M.D., the attending radiologist, was present from the beginning to the end of the procedure. SEDATION: Procedural sedation was administered under the attending physician's direction and continuous monitoring by a trained nurse specialist who was independent from those actually performing the procedure. Total monitored sedation time was 45 minutes. TECHNIQUE: The risks, benefits and alternatives were discussed and informed consent was obtained. Prior to beginning the procedure, [place]burn Protocol was used to confirm the patient's identity and planned procedure. Fluoroscopy time has been recorded in the electronic medical record. Prior to the procedure, the central veins were evaluated by ultrasound, an image recorded and placed in the patient's chart. Maximum sterile barriers including cap, mask, hand hygiene, sterile gloves, sterile gown, large sterile drape and 2% chlorhexidine for cutaneous antisepsis were used. The skin over the right internal jugular vein was sterilely prepped, draped and infiltrated with 1% lidocaine. The vein was accessed with a 21 gauge needle using realtime ultrasound guidance. A guidewire and catheter were then passed centrally using fluoroscopic guidance. The intravascular length from the access site to the right atrium was then measured. After infiltrating the skin in the subclavicular region with 1% buffered lidocaine, a short transverse incision was made and the 19 cm tunneled dialysis catheter was tunneled to the internal jugular access site and inserted through a peel-away sheath. The dialysis catheter was flushed with 1000 U/ml heparin. The incision in the lower neck was closed using 4-0 Monocryl and glue. A sterile dressing was applied. Immediately above the previous access site, the right internal jugular vein was accessed with a 21 gauge needle using realtime ultrasound guidance. A guidewire and catheter were then passed centrally using fluoroscopic guidance. The intravascular length from the access site to the right atrium was then measured. After infiltrating the skin in the subclavicular region with 1% buffered lidocaine, a short transverse incision was made and the power line was tunneled to the internal jugular access site and inserted through a peel-away sheath. The catheter was flushed with 100 U/ml heparin. The incision in the lower neck was closed using 4-0 Monocryl and glue. A sterile dressing was applied. ESTIMATED BLOOD LOSS: Minimal. CONDITION: Stable DISCHARGED TO: Recovery and then to home FINDINGS: Tunneled dialysis catheter : Ultrasound image shows a patent vein in the lower neck. The final fluoroscopic image demonstrates the catheter with its tip in the right atrium. No complications are seen. Tunnel powerline: Ultrasound image shows a patent vein in the lower neck. The final fluoroscopic image demonstrates the catheter with its tip at the cavoatrial junction . No complications are seen. Procedure Note Royal Salinas MD PhD - 08/28/2024 EXAMINATION: TWO TUNNELED CENTRAL VENOUS CATHETER PLACEMENTS USING ULTRASOUND GUIDANCE HISTORY/INDICATION: 28-year-old woman with polysubstance use, hepatitis C, and tricuspid valve endocarditis with MRSA bacteremia and discitis/osteomyelitis with severe MARIELENA requiring long-term hemodialysis. A tunneled power line was also requested for IV access. ATTENDING PRESENCE: Royal Salinas M.D., the attending radiologist, was present from the beginning to the end of the procedure. SEDATION: Procedural sedation was administered under the attending physician's direction and continuous monitoring by a trained nurse specialist who was independent from those actually performing the procedure. Total monitored sedation time was 45 minutes. TECHNIQUE: The risks, benefits and alternatives were discussed and informed consent was obtained. Prior to beginning the procedure, [place]burn Protocol was used to confirm the patient's identity and planned procedure. Fluoroscopy time has been recorded in the electronic medical record. Prior to the procedure, the central veins were evaluated by ultrasound, an image recorded and placed in the patient's chart. Maximum sterile barriers including cap, mask, hand hygiene, sterile gloves, sterile gown, large sterile drape and 2% chlorhexidine for cutaneous antisepsis were used. The skin over the right internal jugular vein was sterilely prepped, draped and infiltrated with 1% lidocaine. The vein was accessed with a 21 gauge needle using realtime ultrasound guidance. A guidewire and catheter were then passed centrally using fluoroscopic guidance. The intravascular length from the access site to the right atrium was then measured. After infiltrating the skin in the subclavicular region with 1% buffered lidocaine, a short transverse incision was made and the 19 cm tunneled dialysis catheter was tunneled to the internal jugular access site and inserted through a peel-away sheath. The dialysis catheter was flushed with 1000 U/ml heparin. The incision in the lower neck was closed using 4-0 Monocryl and glue. A sterile dressing was applied. Immediately above the previous access site, the right internal jugular vein was accessed with a 21 gauge needle using realtime ultrasound guidance. A guidewire and catheter were then passed centrally using fluoroscopic guidance. The intravascular length from the access site to the right atrium was then measured. After infiltrating the skin in the subclavicular region with 1% buffered lidocaine, a short transverse incision was made and the power line was tunneled to the internal jugular access site and inserted through a peel-away sheath. The catheter was flushed with 100 U/ml heparin. The incision in the lower neck was closed using 4-0 Monocryl and glue. A sterile dressing was applied. ESTIMATED BLOOD LOSS: Minimal. CONDITION: Stable DISCHARGED TO: Recovery and then to home FINDINGS: Tunneled dialysis catheter : Ultrasound image shows a patent vein in the lower neck. The final fluoroscopic image demonstrates the catheter with its tip in the right atrium. No complications are seen. Tunnel powerline: Ultrasound image shows a patent vein in the lower neck. The final fluoroscopic image demonstrates the catheter with its tip at the cavoatrial junction . No complications are seen. IMPRESSION: Successful tunneled dialysis catheter and tunneled power line placement via the right internal jugular vein. PLAN: The catheter is ready for immediate use. When treatment is completed, removal can be scheduled by calling [facility] - [phone] [facility] - [phone] Dictated by: Betzaida Owusu M.D. The radiology attending physician has personally reviewed this study, and had reviewed and/or edited this written report and agrees with it. Electronically signed by: Royal Salinas M.D. us Jone Vann MD IMG IR PROCEDURES Final Resu lt * POCT glucose (08/23/2024 10:36 AM CDT) Glucose, POC 156 70 - 199 mg/dL Blood 08/23/2024 10:3 6 AM CDT 08/23/2024 10:36 AM CDT Jone Vann MD LAB POCT ORDERABLES - DEVICE Final Result Performing Organization Address [facility] Co de Phone Number [facility] Department [place] [address] * (ABNORMAL) POCT glucose (08/23/2024 10:01 AM CDT) Glucose, POC 67(L) 70 - 199 mg/dL Blood 08/23/2024 10:0 1 AM CDT 08/23/2024 10:01 AM CDT Jone Vann MD LAB POCT ORDERABLES - DEVICE Final Result Performing Organization Address [facility] de Phone Number [facility] Department [place] [address] * Blood culture Blood (08/23/2024 5:23 AM CDT) Report Final Report: No growth Blood 08/23/2024 5:23 AM CDT 08/23/2024 6:05 AM CDT Narrative [facility] - 08/27/2024 7:00 AM CDT Collection->Peripheral 1. Blood cultures are incubated for 4 days on a continuously monitored blood culture system. The first report of a negative culture is issued within 24 hours of receipt of the specimen in the laboratory. 2. Positive culture results are reported as soon as they are detected. 3. The most important factor for detection of microbes in the setting of bloodstream infection is the volume of blood submitted for culture. Failure to collect an optimal blood volume can result in false negative blood cultures. 4. For pediatric patients, the recommended blood volume to collect follows a weight based strategy. See the electronic test catalog for collection instructions. 5. For positive blood cultures, a rapid molecular test may be performed for organism identification using the pramod ePlex blood culture identification panel for gram positive (BCID-GP) and gram negative (BCID-GN) organisms. This nucleic acid amplification test detects microbial DNA in positive blood culture broth. This assay has been cleared by the [place] Food and Drug Administration and its performance characteristics have been verified by the [facility]. For questions about this culture, contact the Microbiology Laboratory at [phone]. Interpretive data was last revised on 24. Hina Poon MD LAB MICROBIOLOGY - GENERAL O RDERABLES Final Result Performing Organization Address [facility] Co de Phone Number [facility] Department [place] [address] * POCT glucose (08/23/2024 4:01 AM CDT) Glucose, POC 121 70 - 199 mg/dL Blood 08/23/2024 4:01 AM CDT 08/23/2024 4:01 AM CDT Jone Vann MD LAB POCT ORDERABLES - DEVICE Final Result Performing Organization Address [facility] Co de Phone Number [facility] [place] [address] * (ABNORMAL) POCT glucose (08/23/2024 3:14 AM CDT) Glucose, POC 62(L) 70 - 199 mg/dL Blood 08/23/2024 3:14 AM CDT 08/23/2024 3:14 AM CDT Jone Vann MD LAB POCT ORDERABLES - DEVICE Final Result Performing Organization Address [facility] Co de Phone Number [facility] [place] [address] * XR Chest 1 View (08/23/2024 1:26 AM CDT) Anatomical Region Laterality Modality Body, Chest N/A Computed Radiogr aphy 08/23/2024 11:2 7 AM CDT Impressions 08/23/2024 11:38 AM CDT Comparison 08/21/2024. Left internal jugular catheter tip overlying the superior vena cava. Left-sided pleural catheter projecting over the left lung. Decreased the bilateral pleural effusion with left greater than right small residual. Peripheral predominant nodular and cavitary lesions compatible with septic emboli. No pneumothorax. Normal cardiomediastinal silhouette. Dictated by: Cain Haley MD The radiology attending physician has personally reviewed this study, and had reviewed and/or edited this written report and agrees with it. Electronically signed by: Gwendolyn Galdamez M.D. Narrative 08/23/2024 11:38 AM CDT EXAMINATION: 1 view chest radiograph Procedure Note Gwendolyn Galdamez MD - 08/23/2024 EXAMINATION: 1 view chest radiograph IMPRESSION: Comparison 08/21/2024. Left internal jugular catheter tip overlying the superior vena cava. Left-sided pleural catheter projecting over the left lung. Decreased the bilateral pleural effusion with left greater than right small residual. Peripheral predominant nodular and cavitary lesions compatible with septic emboli. No pneumothorax. Normal cardiomediastinal silhouette. Dictated by: Cain Haley MD The radiology attending physician has personally reviewed this study, and had reviewed and/or edited this written report and agrees with it. Electronically signed by: Gwendolyn Galdamez M.D. us Jone Vann MD IMG XR PROCEDURES Final Resu lt * (ABNORMAL) eGFR (08/22/2024 11:35 PM CDT) eGFR 14(L) >=60 mL/min/1. 73 m2 Comment: Interpretive Data Reference Interval Normal >/= 90 mL/min/1.73m2 Mildly decreased* 60 - 89 mL/min/1.73m2 Mildly to moderately decreased 45 - 59 mL/min/1.73m2 Moderately to severely decreased 30 - 44 mL/min/1.73m2 Severely decreased 15 - 29 mL/min/1.73m2 Kidney Failure < 15 mL/min/1.73m2 *Relative to young adult level Estimated glomerular filtration rate is determined by the 2020 CKD-EPI equation recommended by the National Kidney Foundation (A Unifying Approach to GFR Estimation: Recommendations of the NKF-ASK Task Force on Reassessing the Inclusion of Race in Diagnosing Kidney Disease, JASN 2020). The CKD-EPI equation should not be used for patients with unstable renal function and has not been validated in children and those over 70. Current interpretive data was last reviewed 2021. Blood 08/22/2024 11:3 5 PM CDT 08/23/2024 12:46 AM CDT us Valerie Cooper MD PhD LAB BLOOD ORDERABLES Final Result [facility] Department [place] [address] * (ABNORMAL) Comprehensive metabolic panel (08/22/2024 11:35 PM CDT) Pathologist [facility] Sodium 136 135 - 145 mmol/L Potassium, pl 4.3 3.3 - 4.9 mmol/L [facility] Chloride 99 97 - 110 mmol/L [facility] CO2 30 22 - 32 mmol/L [facility] Anion gap 7 2 - 15 mmol/L [facility] BUN 14 6 - 25 mg/dL [facility] Creatinine 4.20(H) 0.60 - 1.10 mg/dL [facility] Glucose 64(L) 70 - 199 mg/dL [facility] Comment: Interpretive Data Fasting glucose >/= 126 mg/dl is diagnostic for diabetes. Fasting is defined as no caloric intake for at least 8 hours. Fasting glucose between 100 mg/dl to 125 mg/dl is diagnostic of prediabetes. In a patient with classic symptoms of hyperglycemia or hyperglycemic crisis, a random glucose >/= 200 mg/dl is diagnostic for diabetes. In the absence of unequivocal hyperglycemia, results should be confirmed by repeat testing. The classification and Diagnosis of Diabetes Diabetes Care 202; 46: S19-S40. Current interpretive data was last revised 2022. Calcium 8.2(L) 8.5 - 10.3 mg/dL [facility] Bilirubin, total 0.4 0.1 - 1.2 mg/dL [facility] Protein, pl 7.6 6.5 - 8.5 g/dL [facility] Albumin 1.9(L) 3.5 - 5.0 g/dL [facility] Alk phos 91 40 - 130 Units/L [facility] ALT 6(L) 7 - 45 Units/L [facility] AST 23 10 - 45 Units/L [facility] Blood 08/22/2024 11:3 5 PM CDT 08/23/2024 12:46 AM CDT us Valerie Cooper MD PhD LAB BLOOD ORDERABLES Final Result Performing Organization Address [facility] de Phone Number [facility] Department [place] [address] * POCT glucose (08/22/2024 8:48 PM CDT) Glucose, POC 90 70 - 199 mg/dL Blood 08/22/2024 8:48 PM CDT 08/22/2024 8:48 PM CDT Jone Vann MD LAB POCT ORDERABLES - DEVICE Final Result Performing Organization Address [facility] Co de Phone Number [facility] [place] [address] * POCT glucose (08/22/2024 6:38 PM CDT) Glucose, POC 87 70 - 199 mg/dL Blood 08/22/2024 6:38 PM CDT 08/22/2024 6:38 PM CDT Jone Vann MD LAB POCT ORDERABLES - DEVICE Final Result Performing Organization Address [facility] de Phone Number [facility] [place] [address] * (ABNORMAL) POCT glucose (08/22/2024 5:31 PM CDT) Glucose, POC 68(L) 70 - 199 mg/dL Comment:Glu2: RN/ Notified Glucose comment 1 Glu2: RN/ Notified [facility] Blood 08/22/2024 5:31 PM CDT 08/22/2024 5:31 PM CDT Jone Vann MD LAB POCT ORDERABLES - DEVICE Final Result Performing Organization Address [facility] Co de Phone Number [facility] [place] [address] * POCT glucose (08/22/2024 1:57 PM CDT) Glucose, POC 71 70 - 199 mg/dL Blood 08/22/2024 1:57 PM CDT 08/22/2024 1:57 PM CDT Jone Vann MD LAB POCT ORDERABLES - DEVICE Final Result Performing Organization Address [facility] de Phone Number [facility] Department [place] [address] * (ABNORMAL) POCT glucose (08/22/2024 8:07 AM CDT) Glucose, POC 68(L) 70 - 199 mg/dL Comment:Glu2: KAELYN/ Notified Glucose comment 1 Glu2: RN/ Notified [facility] Blood 08/22/2024 8:07 AM CDT 08/22/2024 8:07 AM CDT Jone Vann MD LAB POCT ORDERABLES - DEVICE Final Result Performing Organization Address [facility] Co de Phone Number [facility] Department [place] [address] * (ABNORMAL) POCT glucose (08/22/2024 7:47 AM CDT) [facility] Glucose, POC 68(L) 70 - 199 mg/dL Comment:Glu2: RN/MD Notified Glucose comment 1 Glu2: RN/MD Notified [facility] Blood 08/22/2024 7:47 AM CDT 08/22/2024 7:47 AM CDT Jone Vann MD LAB POCT ORDERABLES - DEVICE Final Result Performing Organization Address [facility] de Phone Number [facility] Department [place] [address] * (ABNORMAL) eGFR (08/21/2024 10:24 PM CDT) [facility] eGFR 9(L) >=60 mL/min/1. 73 m2 Comment: Interpretive Data Reference Interval Normal >/= 90 mL/min/1.73m2 Mildly decreased* 60 - 89 mL/min/1.73m2 Mildly to moderately decreased 45 - 59 mL/min/1.73m2 Moderately to severely decreased 30 - 44 mL/min/1.73m2 Severely decreased 15 - 29 mL/min/1.73m2 Kidney Failure < 15 mL/min/1.73m2 *Relative to young adult level Estimated glomerular filtration rate is determined by the 2020 CKD-EPI equation recommended by the National Kidney Foundation (A Unifying Approach to GFR Estimation: Recommendations of the NKF-ASK Task Force on Reassessing the Inclusion of Race in Diagnosing Kidney Disease, JASN 2020). The CKD-EPI equation should not be used for patients with unstable renal function and has not been validated in children and those over 70. Current interpretive data was last reviewed 2021. Blood 08/21/2024 10:2 4 PM CDT 08/21/2024 11:33 PM CDT us Valerie Cooper MD PhD LAB BLOOD ORDERABLES Final Result Performing Organization Address [facility]/ZIP Co de Phone Number [facility] [place] [address] * Folate (08/21/2024 10:24 PM CDT) Pathologist [facility] Folic acid See Comment >=5.0 ng/mL Comment: Credited; Hemolyzed Specimen Telephone report made to: Rachele Garcia RN on 08/22/2024 06:54:46 CDT by EV . Blood 08/21/2024 10:2 4 PM CDT 08/21/2024 11:33 PM CDT us Jone Vann MD LAB BLOOD ORDERABLES Final R esult Performing Organization Address [facility] Co de Phone Number [facility] Department [place] [address] * (ABNORMAL) Comprehensive metabolic panel (08/21/2024 10:24 PM CDT) [facility] Sodium 137 135 - 145 mmol/L Potassium, pl 5.1(H) 3.3 - 4.9 mmol/L [facility] Chloride 99 97 - 110 mmol/L [facility] CO2 30 22 - 32 mmol/L [facility] Anion gap 8 2 - 15 mmol/L [facility] BUN 24 6 - 25 mg/dL [facility] Creatinine 5.88(H) 0.60 - 1.10 mg/dL [facility] Glucose 74 70 - 199 mg/dL [facility] Comment: Interpretive Data Fasting glucose >/= 126 mg/dl is diagnostic for diabetes. Fasting is defined as no caloric intake for at least 8 hours. Fasting glucose between 100 mg/dl to 125 mg/dl is diagnostic of prediabetes. In a patient with classic symptoms of hyperglycemia or hyperglycemic crisis, a random glucose >/= 200 mg/dl is diagnostic for diabetes. In the absence of unequivocal hyperglycemia, results should be confirmed by repeat testing. The classification and Diagnosis of Diabetes Diabetes Care 202; 46: S19-S40. Current interpretive data was last revised 2022. Calcium 8.1(L) 8.5 - 10.3 mg/dL [facility] Bilirubin, total 0.3 0.1 - 1.2 mg/dL [facility] Protein, pl 7.7 6.5 - 8.5 g/dL [facility] Albumin 1.8(L) 3.5 - 5.0 g/dL [facility] Alk phos 91 40 - 130 Units/L [facility] ALT 7 7 - 45 Units/L [facility] AST 22 10 - 45 Units/L [facility] Blood 08/21/2024 10:2 4 PM CDT 08/21/2024 11:33 PM CDT us Valerie Cooper MD PhD LAB BLOOD ORDERABLES Final Result Performing Organization Address [facility]/ZIP Co de Phone Number [facility] Department [place] [address] * Infection Prevention Helen auris PCR, surveillance Axilla/Groin (08/21/2024 7:46 PM CDT) Helen auris DNA Not Detected Not Detected [facility] Comment: Interpretive Data Testing performed by [facility] using the Noa pramod 6800 Helen auris assay. This assay detects DNA from Helen auris using Real-Time PCR. This assay is laboratory developed and is not cleared by the [facility] Food and Drug Administration. The performance characteristics have been verified by the [facility]. Axilla/Groin 08/21/2024 7:46 PM CDT 08/21/2024 8:40 PM CDT Narrative [facility] - 08/22/2024 12:51 PM CDT Order placed by [facility] due to ring surveillance. us Instant Order Generic Provider LAB MICROBIOLOGY - GENERAL ORDERABLES Final Result Performing Organization Address [facility]/ZIP Co de Phone Number [facility] Department [place] [address] [facility] * POCT glucose (08/21/2024 6:32 PM CDT) Glucose, POC 110 70 - 199 mg/dL Blood 08/21/2024 6:32 PM CDT 08/21/2024 6:32 PM CDT Jone Vann MD LAB POCT ORDERABLES - DEVICE Final Result Performing Organization Address [facility] Co de Phone Number [facility] [place] [address] * (ABNORMAL) POCT glucose (08/21/2024 5:44 PM CDT) Glucose, POC 62(L) 70 - 199 mg/dL Blood 08/21/2024 5:44 PM CDT 08/21/2024 5:44 PM CDT Jone Vann MD LAB POCT ORDERABLES - DEVICE Final Result Performing Organization Address [facility] de Phone Number [facility] [place] [address] * XR Chest 1 Vw (08/21/2024 4:30 PM CDT) Anatomical Region Laterality Modality Body, Chest N/A Computed Radiogr aphy 08/21/2024 5:13 PM CDT Impressions 08/21/2024 5:15 PM CDT The current study is compared with the prior radiograph dated 08/17/2024 at 11:08 AM. Interval placement of a left pleural pigtail catheter. Left internal jugular venous approach catheter with tip overlying the superior cavoatrial junction. Interval increase in size of moderate bilateral layering pleural effusions with associated atelectasis. No significant interval change in multifocal airspace opacities within the bilateral lungs which is mostly obscured from the layering pleural effusions, corresponding to patient's known septic emboli. No pneumothorax. Stable cardiomediastinal silhouette. Dictated by: Matthieu Mattson M.D. The radiology attending physician has personally reviewed this study, and had reviewed and/or edited this written report and agrees with it. Electronically signed by: Vito Celestin M.D. Narrative 08/21/2024 5:15 PM CDT EXAMINATION: 1 view chest radiograph Procedure Note Vito Celestin MD - 08/21/2024 EXAMINATION: 1 view chest radiograph IMPRESSION: The current study is compared with the prior radiograph dated 08/17/2024 at 11:08 AM. Interval placement of a left pleural pigtail catheter. Left internal jugular venous approach catheter with tip overlying the superior cavoatrial junction. Interval increase in size of moderate bilateral layering pleural effusions with associated atelectasis. No significant interval change in multifocal airspace opacities within the bilateral lungs which is mostly obscured from the layering pleural effusions, corresponding to patient's known septic emboli. No pneumothorax. Stable cardiomediastinal silhouette. Dictated by: Matthieu Mattson M.D. The radiology attending physician has personally reviewed this study, and had reviewed and/or edited this written report and agrees with it. Electronically signed by: Vito Celestin M.D. Sarita Chong [facility] IMG XR PROCEDURES Final Result * Cell Differential, Body Fluid (08/21/2024 4:14 PM CDT) Total cells diffed 100 cells Comment: Interpretive Data Unless otherwise specified, the reference range and other method performance specifications have not been established for CSF/Body Fluid tests. The test results should be integrated into the clinical context for interpretation. Current interpretive data was last revised on 2018. Neutrophils, fld 12 % [facility] Lymphs, fld 51 % [facility] Monocyte, fld 11 % [facility] Macrophages, fld 26 % [facility] Fluid 08/21/2024 4:14 PM CDT 08/21/2024 5:49 PM CDT Sarita Chong [facility] LAB BODY FLUIDS AND STO OLS ORDERABLES Final Result Performing Organization Address [facility] Co de Phone Number [facility] [place] [address] * Cell count w/rflx diff, body fluid (08/21/2024 4:14 PM CDT) Specimen type, fld Pleural Body site, fld Pleural fluid, left [facility] Color, fld Yellow [facility] Clarity, fld Clear Clear [facility] Nucleated cells, fld 402 /cumm [facility] Comment: Interpretive Data Unless otherwise specified, the reference range and other method performance specifications have not been established for CSF/Body Fluid tests. The test results should be integrated into the clinical context for interpretation. Current interpretive data was last revised on 2018. RBC, fld 2,114 /cumm [facility] Fluid 08/21/2024 4:14 PM CDT 08/21/2024 5:49 PM CDT Sarita Chong [facility] LAB BODY FLUIDS AND STO OLS ORDERABLES Final Result Performing Organization Address [facility] de Phone Number [facility] Department [place] [address] * Mycology (fungal) culture and stain Pleural fluid Chest, left (08/21/2024 4:14 PM CDT) Direct Specimen Exam Stain: No Fungal elements seen. Report Final Report: No growth of fungus [facility] Pleural fluid (Chest, left) 08/21/2024 4:14 PM CDT 08/21/2024 5:57 PM CDT Narrative [facility] - 09/18/2024 9:55 AM CDT Fluid specimen received. Testing performed by [facility] ([phone]). Sarita Chong [facility] LAB MICROBIOLOGY - GENE RAL ORDERABLES Final Result Performing Organization Address [facility] Co de Phone Number [facility] Department [place] [address] * Aerobic and anaerobic culture and gram stain Pleural fluid Chest, left (08/21/2024 4:14 PM CDT) Direct Specimen Exam Stain: Cytospin Gram stain shows: Few polymorphonuclear leukocytes seen. Other cellular material present. No organisms seen. Report Final Report: No growth [facility] Pleural fluid (Chest, left) 08/21/2024 4:14 PM CDT 08/21/2024 5:56 PM CDT Narrative [facility] - 08/28/2024 2:38 PM CDT Fluid specimen received. Testing performed by [facility] ([phone]) Specimens submitted from normally sterile body sites will have all bacterial morphotypes identified. Specimens that contain grossly mixed melissa and/or are from body sites that are not normally sterile will be examined for Staphylococcus aureus, Pseudomonas aeruginosa, beta-hemolytic strep, vancomycin-resistant Enterococcus, Bacteroides, Parabacteroides, Clostridium perfringens and fungus. If any of these are isolated, the organism will be reported. Current interpretive data was last revised on 2019. Sarita Chong [facility] LAB MICROBIOLOGY - GENE RAL ORDERABLES Final Result Performing Organization Address [facility] Co de Phone Number [facility] [employer] Department [place] [address] * Protein, body fluid (08/21/2024 4:14 PM CDT) Specimen type, fld Pleural Body site, fld Pleural fluid, left [facility] Protein, fld 4.4 g/dL [facility] Comment: The above specimen type is not cleared for use in this method by the FDA. Analytical characteristics have been validated by the performing laboratory. No reference range established - see interpretive comments. Interpretive Data Pleural and Pericardial Fluids - Ratio of fluid to serum protein > or = 0.5 is indicative of exudate and < 0.5 of transudate. Peritoneal - Protein > or = 3.0 g/dL is indicative of exudates and < 3.0 g/dL of transudates. Reference: Luis Textbook of Clinical Chemistry and Molecular Diagnostics, Sixth Edition. Elsevier Press. 2018. Chapter 43, Body Fluids, p. 925 Current Interpretive Data was last revised 2018. Fluid 08/21/2024 4:14 PM CDT 08/21/2024 5:43 PM CDT Sarita Chong [facility] LAB BODY FLUIDS AND STO OLS ORDERABLES Final Result Performing Organization Address [facility] Co de Phone Number [facility] [employer] [place] [address] * Lactate dehydrogenase, body fluid (08/21/2024 4:14 PM CDT) Specimen type, fld Pleural Body site, fld Pleural fluid, left [facility] LD, fld 182 Units/L [facility] Comment: The above specimen type is not cleared for use in this method by the FDA. Analytical characteristics have been validated by the performing laboratory. No reference range established - see interpretive comments. Interpretive Data Ratio of fluid to serum LD > or = 0.6 is indicative of exudate and < 0.6 of transudate. References: The Biochemistry of Body Fluids. Association of Clinical Biochemists in [place]. January 2009; pp 1-36. Luis Textbook of Clinical Chemistry and Molecular Diagnostics, Sixth Edition. Elsevier Press. 2018. Chapter 43, Body Fluids, p. 925 Current Interpretive Data was last revised 2018. Fluid 08/21/2024 4:14 PM CDT 08/21/2024 5:43 PM CDT Sarita Chong [facility] LAB BODY FLUIDS AND STO OLS ORDERABLES Final Result Performing Organization Address [facility] Co de Phone Number [facility] Department [place] [address] * Glucose, body fluid (08/21/2024 4:14 PM CDT) Specimen type, fld Pleural Body site, fld Pleural fluid, left ARAMIS PRUITT Glucose, fld 78 mg/dL ARAMIS [facility] Comment: The above specimen type is not cleared for use in this method by the FDA. Analytical characteristics have been validated by the performing laboratory. No reference range established - see interpretive comments. Interpretive Data Pleural - Glucose < 60 mg/dL is indicative of complicated parapneumonic effusions. Peritoneal - normally equivalent to plasma glucose. Will be less than concurrent plasma value in peritoneal bacterial infections. Pericardial - Fluid to serum glucose ratio < 0.3 is indicative of bacterial infection. Pancreatic cyst fluid - glucose concentrations have been shown to be a useful aid for distinguishing mucinous from non-mucinous cysts. Low glucose concentrations in a pancreatic cyst fluid (< 40-50 mg/dL) is suggestive of a mucinous cyst. However, body fluid glucose concentrations may be decreased due to increased cellular metabolism and should be interpreted in the context of blood glucose concentrations and in conjunction with other laboratory and clinical findings. References: Luis Textbook of Clinical Chemistry and Molecular Diagnostics, Sixth Edition. Elsevier Press. 2018. Chapter 43, Body Fluids, p. 925 Pleural effusions: Evaluation and Management. Jonah Clin J Med 2005;72:854-72. [employer] Test directory, Body Fluid Reference Intervals and/or Interpretative Information. [email or web address] Himanshu TIJERINA et al. Pancreatic cyst fluid glucose: rapid, inexpensive, and accurate diagnosis of mucinous pancreatic cysts. Surgery 2018;163:600-5. Deb LIANG et al. Differential diagnosis of pancreatic cysts: A prospective study on the role of intra-cystic glucose concentration. Digestive Liver Dis 2020;52:1026-32. Current Interpretive Data was last revised 2021. Fluid 08/21/2024 4:14 PM CDT 08/21/2024 5:43 PM CDT Narrative ARAMIS PRUITT - 08/21/2024 6:24 PM CDT Body Fluid Type->Pleural us Sarita Chong [facility] LAB BODY FLUIDS AND STO OLS ORDERABLES Final Result [facility] Department [place] [address] * Chest Tube Insertion -Left side (08/21/2024 3:11 PM CDT) Anatomical Region Laterality Modality Other Narrative Procedure Note Sarita Chong DNP - 08/21/2024 3:11 PM CDT [facility] Interventional Pulmonary Patient Name: Tiffany Miller Procedure Date: 08/21/2024 3:11 PM Date of : 1995 Admit Type: Inpatient Age: 28 Room: ROOM 3 Gender: Female Note Status: Finalized Procedure: B ECHO Chest, L Chest Tube Placement Indications: Pleural effusion Providers: FAREED New Referring MD: Medicines: Lidocaine 1% instilled into chest wall 20 mLSub-Q Complications: No immediate complications Procedure: Pre-Anesthesia Assessment: - The History and Physical was reviewed prior tothe procedure. The patient's medications, allergies and sensitivities have also been reviewed. - The risks and benefits of the procedure and the sedation options and risks were discussed with the patient. All questions were answered and informed consent was obtained. - Only local anesthesia, not conscious sedation,was planned for the procedure. - The heart rate, respiratory rate, oxygen saturations, blood pressure, adequacy of pulmonary ventilation, and response to care were monitored throughout the procedure. After obtaining informed consent, the site wasprepped and the chest tube placement was performed. The procedure was accomplished without difficulty. The patient tolerated the procedure well. Estimated Blood Loss: Estimated blood loss: none. Findings: > Ultrasound, chest, real time with imaging documentation: Patient was placed in an left side up position on the proceduretable. Ultrasound evaluation of the left hemithorax was performed andrevealed a moderate anechoic effusion. > Tube thoracostomy: The patient was placed in a left side up position on the proceduretable. The patient was prepped and draped in the usual sterile manner andthe chest wall at the mid line in the 5 th intercostal space was anesthetized. An 18 gauge needle was then passed between the ribs and advanced into the pleural space following ultrasound localization.Two ml of serous fluid was aspirated. A J-tipped guide wire was thenpassed through the needle and into the pleural space. A # 11 scalpel wasthen used to make a 0.5 cm incision in the skin adjacent to the guidewire. Sequential dilation was then performed using 1 dilator passed overthe guide wire and advanced into the pleural space. Following dilation,the 14 Fr Dejon chest tube was advanced over the guide-wire and into the pleural space. The tube was positioned at 10 cm at the patient'sskin. The guide-wire was then removed. The tube was then secured in place with 2 sutures of 0-silk. The site was then covered and dressed. We recovered 420 ml of serous fluid.The tube was connected to a Pleur-evac set to -20cm suction. Pleural fluid was sent for LDH, protein, glucose, cell count, culture and cytology. A post procedure chest x-ray was order. Impression: - Pleural effusion - Successful chest tube placement. - Dr. Cisse collaborated on this case. Recommendation: - Chest X-ray post-procedure. - Await culture and lab results. Electronically signed by Sarita Chong NP-C Sarita Chong, ANP 08/21/2024 4:08:11 PM Number of Addenda: 0 Note Initiated On: 08/21/2024 3:11 PM Tone Newberry MD IN CLINIC/BEDSIDE ORDERABLES F inal Result * POCT glucose (08/21/2024 8:38 AM CDT) Glucose, POC 78 70 - 199 mg/dL Blood 08/21/2024 8:38 AM CDT 08/21/2024 8:38 AM CDT Jone Vann MD LAB POCT ORDERABLES - DEVICE Final Result Performing Organization Address [facility] Co de Phone Number [facility] Department [place] [address] * Infection Prevention Helen auris PCR, surveillance Axilla/Groin (08/21/2024 1:29 AM CDT) Pathologist [facility] Helen auris DNA Not Detected Not Detected [facility] Comment: Interpretive Data Testing performed by [facility] using the Noa pramod 6800 Helen auris assay. This assay detects DNA from Helen auris using Real-Time PCR. This assay is laboratory developed and is not cleared by the [place] Food and Drug Administration. The performance characteristics have been verified by the [facility]. Axilla/Groin 08/21/2024 1:29 AM CDT 08/21/2024 4:44 AM CDT Umang Phillips MD LAB MICROBIOLOGY - GENERAL ORDER MARTINEZ Final Result Performing Organization Address City/[facility]/ZIP Co de Phone Number [facility] [place] [address] [facility] * (ABNORMAL) eGFR (08/21/2024 1:29 AM CDT) eGFR 12(L) >=60 mL/min/1. 73 m2 Comment: Interpretive Data Reference Interval Normal >/= 90 mL/min/1.73m2 Mildly decreased* 60 - 89 mL/min/1.73m2 Mildly to moderately decreased 45 - 59 mL/min/1.73m2 Moderately to severely decreased 30 - 44 mL/min/1.73m2 Severely decreased 15 - 29 mL/min/1.73m2 Kidney Failure < 15 mL/min/1.73m2 *Relative to young adult level Estimated glomerular filtration rate is determined by the 2020 CKD-EPI equation recommended by the National Kidney Foundation (A Unifying Approach to GFR Estimation: Recommendations of the NKF-ASK Task Force on Reassessing the Inclusion of Race in Diagnosing Kidney Disease, JASN 2020). The CKD-EPI equation should not be used for patients with unstable renal function and has not been validated in children and those over 70. Current interpretive data was last reviewed 2021. Blood 08/21/2024 1:29 AM CDT 08/21/2024 2:27 AM CDT us Valerie Cooper MD PhD LAB BLOOD ORDERABLES Final Result [facility] [place] [address] * Type and screen (08/21/2024 1:29 AM CDT) ABO Rh A Positive Marybeth, indirect Negative [facility] Blood 08/21/2024 1:29 AM CDT 08/21/2024 2:32 AM CDT Narrative [facility] - 08/21/2024 3:47 AM CDT Has the patient had Daratumumab or Isatuximab in the past 6 months?->Unknown us Royal Weiss MD LAB BLOOD BANK TEST ORDER MARTINEZ Final Result [facility] [employer] [place] [address] * Vitamin B12 (08/21/2024 1:29 AM CDT) Vitamin B12 888 230 - 1,250 pg/mL Blood 08/21/2024 1:29 AM CDT 08/21/2024 2:27 AM CDT Jone Vann MD LAB BLOOD ORDERABLES Final R esult [facility] Department [place] [address] * (ABNORMAL) Comprehensive metabolic panel (08/21/2024 1:29 AM CDT) Pathologist [facility] Sodium 137 135 - 145 mmol/L Potassium, pl 4.5 3.3 - 4.9 mmol/L [facility] Chloride 99 97 - 110 mmol/L [facility] CO2 31 22 - 32 mmol/L [facility] Anion gap 7 2 - 15 mmol/L [facility] BUN 18 6 - 25 mg/dL [facility] Creatinine 4.68(H) 0.60 - 1.10 mg/dL [facility] Glucose 113 70 - 199 mg/dL [facility] Comment: Interpretive Data Fasting glucose >/= 126 mg/dl is diagnostic for diabetes. Fasting is defined as no caloric intake for at least 8 hours. Fasting glucose between 100 mg/dl to 125 mg/dl is diagnostic of prediabetes. In a patient with classic symptoms of hyperglycemia or hyperglycemic crisis, a random glucose >/= 200 mg/dl is diagnostic for diabetes. In the absence of unequivocal hyperglycemia, results should be confirmed by repeat testing. The classification and Diagnosis of Diabetes Diabetes Care 2021; 46: S19-S40. Current interpretive data was last revised 2022. Calcium 8.1(L) 8.5 - 10.3 mg/dL [facility] Bilirubin, total 0.3 0.1 - 1.2 mg/dL [facility] Protein, pl 7.5 6.5 - 8.5 g/dL [facility] Albumin 1.8(L) 3.5 - 5.0 g/dL [facility] Alk phos 98 40 - 130 Units/L [facility] ALT 6(L) 7 - 45 Units/L [facility] AST 17 10 - 45 Units/L [facility] Blood 08/21/2024 1:29 AM CDT 08/21/2024 2:27 AM CDT us Valerie Cooper MD PhD LAB BLOOD ORDERABLES Final Result [facility] Department [place] [address] * TRANSTHORACIC ECHO (TTE) LIMITED/FOLLOW UP W LTD DOPPLER/CF WO CONTRAST (08/20/2024 2:12 PM CDT) Anatomical Region Laterality Modality Ultrasound 08/20/2024 1:44 PM CDT Narrative 08/20/2024 2:55 PM CDT [facility] [place] [address] Transthoracic Echocardiographic Report Patient Name: TIFFANY MILLER T : 1995 (28y 11m) Gender: F Study Date: 08/20/2024 01:44:30 PM Ht(Inch): 67 Wt(Lb): 166.89 BSA: 1.89 Occupational Health Physician: Guadalupe Mohr RDCS Location: [id number] Order Provider: VALERIE COOPER BMI: 26.14 Ref Provider: VALERIE COOPER - PROCEDURES: Echocardiographic Report: Limited transthoracic 2D echo, includes spectral and tissue Doppler, color flow Doppler, and/or M-mode, when performed. 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 CONCLUSIONS: 1. Limited study for follow-up of TV endocarditis; full study 08/06/24. 2. Normal LV and RV size and systolic function. 3. There is a large bulky vegetation on the anterior TV leaflet measuring 1.4 x 2.0 cm. There may be a smaller vegetation on the posterior leaflet as well. Mild to moderate eccentric tricuspid regurgitation. 4. Normal IVC. 5. No pericardial effusion. 6. Compared to 08/06/24, the TV vegetation is substantially larger and there may now be vegetations on both TV leaflets. ATTESTATION: I have personally reviewed and interpreted this study without fellow or resident. - DISCLAIMER: The study images and the final report will be retained in the patient chart by the Echo Laboratory for the legally required time period. This chart constitutes the legal record of any testing performed. FINDINGS: Left Ventricle: Normal left ventricular systolic function. Right Ventricle: Normal right ventricular systolic function. Tricuspid Valve: Mild to moderate eccentric tricuspid regurgitation. There is a large bulky vegetation on the anterior TV leaflet measuring 1.4 x 2.0 cm. There may be a smaller vegetation on the posterior leaflet as well. IVC: IVC is normal in size. The IVC was <2.1 cm and collapsibility >50%. (est. RA pressure 0-5 mmHg). MEASUREMENTS: Doppler Value Range TV Peak Nathanael 0.6 m/s [ 0.3 - 0.7 ] TV Peak PG 1.44 mmHg TV Mean PG 1 mmHg TR Peak Nathanael 2.5 m/s [ 1.0 - 2.8 ] TR Peak PG 25.0 mmHg Electronically Signed By: Morgan Gtz MD 08/20/2024 2:55:20 PM CDT Procedure Note Morgan Gtz MD - 08/20/2024 [facility] Cardiac [place] [address] Transthoracic Echocardiographic Report Patient Name: TIFFANY MILLER T : 1995 (28y 11m) Gender: F Study Date: 08/20/2024 01:44:30 PM Ht(Inch): 67 Wt(Lb): 166.89 BSA: 1.89 Occupational Health Physician: Guadalupe Mohr RDCS Location: [id number] Order Provider:VALERIE COOPER BMI: 26.14 Ref Provider: VALERIE COOPER - PROCEDURES: Echocardiographic Report: Limited transthoracic 2D echo, includes spectraland tissue Doppler, color flow Doppler, and/or M-mode, when performed. 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 CONCLUSIONS: 1. Limited study for follow-up of TV endocarditis; full study 08/06/24. 2. Normal LV and RV size and systolic function. 3. There is a large bulky vegetation on the anterior TV leaflet measuring1.4 x 2.0 cm. There may be a smaller vegetation on the posterior leaflet as well. Mildto moderate eccentric tricuspid regurgitation. 4. Normal IVC. 5. No pericardial effusion. 6. Compared to 08/06/24, the TV vegetation is substantially larger and theremay now be vegetations on both TV leaflets. ATTESTATION: I have personally reviewed and interpreted this study without fellow orresident. - DISCLAIMER: The study images and the final report will be retained in the patientchart by the Echo Laboratory for the legally required time period. This chart constitutesthe legal record of any testing performed. FINDINGS: Left Ventricle: Normal left ventricular systolic function. Right Ventricle: Normal right ventricular systolic function. Tricuspid Valve: Mild to moderate eccentric tricuspid regurgitation. Thereis a large bulky vegetation on the anterior TV leaflet measuring 1.4 x 2.0 cm. Theremay be a smaller vegetation on the posterior leaflet as well. IVC: IVC is normal in size. The IVC was <2.1 cm and collapsibility >50%.(est. RA pressure 0-5 mmHg). MEASUREMENTS: Doppler Value Range TV Peak Nathanael 0.6 m/s [ 0.3 - 0.7 ] TV Peak PG 1.44 mmHg TV Mean PG 1 mmHg TR Peak Nathanael 2.5 m/s [ 1.0 - 2.8 ] TR Peak PG 25.0 mmHg Electronically Signed By: Morgan Gtz MD 08/20/2024 2:55:20 PM CDT us Valerie Cooper MD PhD CV ECHO PROCEDURES F inal Result * CT Chest WO Contrast (08/19/2024 12:13 PM CDT) Anatomical Region Laterality Modality Body N/A Computed Tomogra phy 08/19/2024 12:4 4 PM CDT Impressions 08/19/2024 12:46 PM CDT 1. Overall decrease in size of cavitary lesions throughout both lungs in keeping with septic emboli. 2. Increased moderate right and large left pleural effusions which are partially loculated. Limited assessment for empyema without intravenous contrast. Persistent findings of interstitial pulmonary edema. 3. Persistent areas of consolidation throughout both lungs, some of which is increased such as at the right lower lobe in keeping with multifocal pneumonia. Dictated by: Yao Wagoner MD The radiology attending physician has personally reviewed this study, and had reviewed and/or edited this written report and agrees with it. Electronically signed by: Chance Carvalho M.D. Narrative 08/19/2024 12:46 PM CDT EXAMINATION: Computed tomography of the chest without intravenous contrast. HISTORY: Septic pulmonary emboli, tricuspid endocarditis TECHNIQUE: Transaxial computed tomographic images of the chest were obtained without intravenous contrast according to the standard protocol. COMPARISON: CT 08/07/2024 FINDINGS: CHEST: No suspicious thyroid nodule. Left hemithyroid is diminutive. Slightly increased size of likely reactive lymph nodes throughout multiple stations throughout the chest. Normal heart size. No pericardial effusion. Thoracic aorta is normal caliber. The pulmonary arteries are normal caliber. Esophagus is non-dilated. Increasing body wall edema. Left internal jugular central venous catheter tip at the superior cavoatrial junction. Overall interval decrease in size of the peripheral predominant areas of cavitation throughout both lungs, such as a left upper lobe cavitation measuring 18 x 14 mm (series 3, image 58)., previously 20 x 19 mm, and a right lower lobe cavitation (series 3, image 102) measuring 20 x 14 mm, previously 25 x 21 mm. There are persistent areas of consolidation throughout both lungs, some of which are slightly increased/new, such as at the right lower lobe at series 3, image 94. Increased size of moderate right and large left pleural effusions, which are partially loculated, particularly on the right, with increased fluid in the right oblique fissure. There are persistent areas of septal line thickening throughout both lungs, compatible with pulmonary edema. No acute fracture or suspicious osseous lesion. The imaged abdomen is unremarkable.. Procedure Note Chance Carvalho MD - 08/19/2024 EXAMINATION: Computed tomography of the chest without intravenous contrast. HISTORY: Septic pulmonary emboli, tricuspid endocarditis TECHNIQUE: Transaxial computed tomographic images of the chest were obtained without intravenous contrast according to the standard protocol. COMPARISON: CT 08/07/2024 FINDINGS: CHEST: No suspicious thyroid nodule. Left hemithyroid is diminutive. Slightly increased size of likely reactive lymph nodes throughout multiple stations throughout the chest. Normal heart size. No pericardial effusion. Thoracic aorta is normal caliber. The pulmonary arteries are normal caliber. Esophagus is non-dilated. Increasing body wall edema. Left internal jugular central venous catheter tip at the superior cavoatrial junction. Overall interval decrease in size of the peripheral predominant areas of cavitation throughout both lungs, such as a left upper lobe cavitation measuring 18 x 14 mm (series 3, image 58)., previously 20 x 19 mm, and a right lower lobe cavitation (series 3, image 102) measuring 20 x 14 mm, previously 25 x 21 mm. There are persistent areas of consolidation throughout both lungs, some of which are slightly increased/new, such as at the right lower lobe at series 3, image 94. Increased size of moderate right and large left pleural effusions, which are partially loculated, particularly on the right, with increased fluid in the right oblique fissure. There are persistent areas of septal line thickening throughout both lungs, compatible with pulmonary edema. No acute fracture or suspicious osseous lesion. The imaged abdomen is unremarkable.. IMPRESSION: 1. Overall decrease in size of cavitary lesions throughout both lungs in keeping with septic emboli. 2. Increased moderate right and large left pleural effusions which are partially loculated. Limited assessment for empyema without intravenous contrast. Persistent findings of interstitial pulmonary edema. 3. Persistent areas of consolidation throughout both lungs, some of which is increased such as at the right lower lobe in keeping with multifocal pneumonia. Dictated by: Yao Wagoner MD The radiology attending physician has personally reviewed this study, and had reviewed and/or edited this written report and agrees with it. Electronically signed by: Chance Carvalho M.D. us Valerie Cooper MD PhD IMG CT PROCEDURES Fi nal Result * MRI Lumbar Spine W WO Contrast (08/19/2024 12:05 PM CDT) Anatomical Region Laterality Modality Spine N/A Magnetic Resonan ce 08/19/2024 1:10 PM CDT Impressions 08/19/2024 3:11 PM CDT 1. Mild edema and enhancement associated with the right side of the L5-S1 disc, with ill-defined presacral edema and enhancing soft tissue. Findings can be seen with early discitis/osteomyelitis, recommend clinical correlation. 2. Edema and enhancement about the bilateral sacroiliac joints, greater on the right and partially imaged. This may signify infection or inflammation of the sacroiliac joints. Dictated by: Dago Nava M.D. The radiology attending physician has personally reviewed this study, and had reviewed and/or edited this written report and agrees with it. Electronically signed by: Symone Baldwin M.D. Narrative 08/19/2024 3:11 PM CDT EXAMINATION: Magnetic resonance imaging (MRI) of the lumbar spine without and with contrast HISTORY: 28 years-old Female with Low back pain, infection suspected, positive xray/CT. TECHNIQUE: Multiplanar multi-weighted MRI of the lumbar spine was performed without and with intravenous contrast using the standard protocol. Contrast information: 14 mL Gadoterate Meglumine IV COMPARISON: CT lumbar spine 08/17/2024. FINDINGS: The alignment of the lumbar spine is normal. Mild endplate edema involving the L5-S1 level with subtle associated enhancement on the right side of the disc. Mild desiccative changes in the discs with minimal circumferential disc bulge. There are no compression fractures. The conus medullaris terminates at the level of L1-L2. The distal spinal cord signal intensity is normal. Intervertebral disks have normal height and signal intensity. There are no annular fissures identified. Ill-defined soft tissue stranding and enhancement along the presacral region. The aorta is normal. Partially imaged enhancement and edema about the right sacroiliac joint, and to a lesser degree about the anterior left sacroiliac joint. No joint effusion. No significant focal disc protrusion. Mild bilateral facet arthropathy involving L4-S1.. There is no neuroforaminal stenosis. There is no spinal canal stenosis. Procedure Note Symone Baldwin MD - 08/19/2024 EXAMINATION: Magnetic resonance imaging (MRI) of the lumbar spine without and with contrast HISTORY: 28 years-old Female with Low back pain, infection suspected, positive xray/CT. TECHNIQUE: Multiplanar multi-weighted MRI of the lumbar spine was performed without and with intravenous contrast using the standard protocol. Contrast information: 14 mL Gadoterate Meglumine IV COMPARISON: CT lumbar spine 08/17/2024. FINDINGS: The alignment of the lumbar spine is normal. Mild endplate edema involving the L5-S1 level with subtle associated enhancement on the right side of the disc. Mild desiccative changes in the discs with minimal circumferential disc bulge. There are no compression fractures. The conus medullaris terminates at the level of L1-L2. The distal spinal cord signal intensity is normal. Intervertebral disks have normal height and signal intensity. There are no annular fissures identified. Ill-defined soft tissue stranding and enhancement along the presacral region. The aorta is normal. Partially imaged enhancement and edema about the right sacroiliac joint, and to a lesser degree about the anterior left sacroiliac joint. No joint effusion. No significant focal disc protrusion. Mild bilateral facet arthropathy involving L4-S1.. There is no neuroforaminal stenosis. There is no spinal canal stenosis. IMPRESSION: 1. Mild edema and enhancement associated with the right side of the L5-S1 disc, with ill-defined presacral edema and enhancing soft tissue. Findings can be seen with early discitis/osteomyelitis, recommend clinical correlation. 2. Edema and enhancement about the bilateral sacroiliac joints, greater on the right and partially imaged. This may signify infection or inflammation of the sacroiliac joints. Dictated by: Dago Nava M.D. The radiology attending physician has personally reviewed this study, and had reviewed and/or edited this written report and agrees with it. Electronically signed by: Symone Baldwin M.D. Valerie Cooper MD PhD IMG MRI PROCEDURES F inal Result * (ABNORMAL) TSH (08/19/2024 5:59 AM CDT) Thyroid Stimulating Hormone 8.29(H) 0.30 - 4.20 mcIUnit/mL Blood 08/19/2024 5:59 AM CDT 08/19/2024 6:47 AM CDT Valerie Cooper MD PhD LAB BLOOD ORDERABLES Final Result [facility] Department [place] [address] * (ABNORMAL) T4, free (08/19/2024 5:59 AM CDT) Free T4 0.58(L) 0.90 - 1.70 ng/dL Blood 08/19/2024 5:59 AM CDT 08/19/2024 6:47 AM CDT Valerie Cooper MD PhD LAB BLOOD ORDERABLES Final Result Performing Organization Address City/[facility]/ZIP Co de Phone Number [facility] Department [place] [address] * Cortisol (08/19/2024 5:59 AM CDT) Cortisol 9.4 4.8 - 19.5 mcg/dL Comment: Interpretive Data: Morning hours 6-10 a.m. 4.8 - 19.5 mcg/dL Afternoon hours 4-8 p.m. 2.5 - 11.9 mcg/dL This analyte undergoes marked diurnal variation. Current interpretive data was last revised 23. Blood 08/19/2024 5:59 AM CDT 08/19/2024 6:47 AM CDT Valerie Cooper MD PhD LAB BLOOD ORDERABLES Final Result Performing Organization Address City[facility] Co de Phone Number [facility] [place] [address] * POCT glucose (08/19/2024 12:06 AM CDT) Glucose, POC 127 70 - 199 mg/dL Blood 08/19/2024 12:0 6 AM CDT 08/19/2024 12:06 AM CDT Valerie Cooper MD PhD LAB POCT ORDERABLES - DEVICE Final Result Performing Organization Address [facility] Co de Phone Number [facility] [place] [address] * (ABNORMAL) POCT glucose (08/18/2024 11:07 PM CDT) Glucose, POC 64(L) 70 - 199 mg/dL Blood 08/18/2024 11:0 7 PM CDT 08/18/2024 11:07 PM CDT Valerie Cooper MD PhD LAB POCT ORDERABLES - DEVICE Final Result Performing Organization Address [facility] Co de Phone Number [facility] [place] [address] * (ABNORMAL) eGFR (08/18/2024 8:13 PM CDT) Pathologist [facility] eGFR 11(L) >=60 mL/min/1. 73 m2 Comment: Interpretive Data Reference Interval Normal >/= 90 mL/min/1.73m2 Mildly decreased* 60 - 89 mL/min/1.73m2 Mildly to moderately decreased 45 - 59 mL/min/1.73m2 Moderately to severely decreased 30 - 44 mL/min/1.73m2 Severely decreased 15 - 29 mL/min/1.73m2 Kidney Failure < 15 mL/min/1.73m2 *Relative to young adult level Estimated glomerular filtration rate is determined by the 2020 CKD-EPI equation recommended by the National Kidney Foundation (A Unifying Approach to GFR Estimation: Recommendations of the NKF-ASK Task Force on Reassessing the Inclusion of Race in Diagnosing Kidney Disease, JASN 2020). The CKD-EPI equation should not be used for patients with unstable renal function and has not been validated in children and those over 70. Current interpretive data was last reviewed 2021. Blood 08/18/2024 8:13 PM CDT 08/18/2024 8:58 PM CDT us Valerie Cooper MD PhD LAB BLOOD ORDERABLES Final Result [facility] Department [place] [address] * (ABNORMAL) Differential, auto (08/18/2024 8:13 PM CDT) Pathologist [facility] Neutrophil abs 8.02(H) 1.50 - 6.50 K/cumm Imm gran abs 0.07 0.00 - 0.10 K/cumm [facility] Lymphocyte abs 1.46 0.80 - 3.30 K/cumm [facility] Monocyte abs 0.91(H) 0.20 - 0.80 K/cumm [facility] Eosinophil abs 0.22 0.00 - 0.50 K/cumm [facility] Basophil abs 0.07 0.00 - 0.10 K/cumm [facility] Neutrophil pct 74.5 % [facility] Comment: Interpretive Data Percent cell count reference ranges are not reported, since discordance with absolute values may lead to misinterpretation of CBC data. Current Interpretive Data was last revised on 2017. Imm gran pct 0.7 % [facility] Comment: Interpretive Data Percent cell count reference ranges are not reported, since discordance with absolute values may lead to misinterpretation of CBC data. Current Interpretive Data was last revised on 2017. Lymphocyte pct 13.6 % [facility] Comment: Interpretive Data Percent cell count reference ranges are not reported, since discordance with absolute values may lead to misinterpretation of CBC data. Current Interpretive Data was last revised on 2017. Monocyte pct 8.5 % [facility] Comment: Interpretive Data Percent cell count reference ranges are not reported, since discordance with absolute values may lead to misinterpretation of CBC data. Current Interpretive Data was last revised on 2017. Eosinophil pct 2.0 % [facility] Comment: Interpretive Data Percent cell count reference ranges are not reported, since discordance with absolute values may lead to misinterpretation of CBC data. Current Interpretive Data was last revised on 2017. Basophil pct 0.7 % [facility] Comment: Interpretive Data Percent cell count reference ranges are not reported, since discordance with absolute values may lead to misinterpretation of CBC data. Current Interpretive Data was last revised on 2017. Blood 08/18/2024 8:13 PM CDT 08/18/2024 8:49 PM CDT us Valerie Cooper MD PhD LAB BLOOD ORDERABLES Final Result [facility] Department [place] [address] * (ABNORMAL) CBC with auto differential (08/18/2024 8:13 PM CDT) WBC 10.75(H) 3.80 - 9.90 K/cumm Hgb 7.4(L) 11.9 - 15.5 g/dL [facility] Hct 23.4(L) 35.6 - 45.5 % [facility] Plt 357 150 - 400 K/cumm [facility] MPV 9.6 9.1 - 12.3 fL [facility] RBC 2.66(L) 3.90 - 5.20 M/cumm [facility] MCV 88.0 81.3 - 96.4 fL [facility] MCH 27.8 27.1 - 33.3 pg [facility] MCHC 31.6(L) 32.3 - 35.7 g/dL [facility] RDW CV 16.1(H) 11.1 - 14.9 % [facility] RDW SD 51.3(H) 35.7 - 48.1 fL [facility] NRBC abs 0.00 0.00 - 0.01 K/cumm [facility] Blood 08/18/2024 8:13 PM CDT 08/18/2024 8:49 PM CDT us Valerie Cooper MD PhD LAB BLOOD ORDERABLES Final Result Performing Organization Address City/[facility]/ZIP Co de Phone Number [facility] [place] [address] * (ABNORMAL) Erythrocyte sedimentation rate (08/18/2024 8:13 PM CDT) [facility] Erythrocyte sedimentation rate 140(H) 1 - 20 mm/hr Blood 08/18/2024 8:13 PM CDT 08/18/2024 8:49 PM CDT us Valerie Cooper MD PhD LAB BLOOD ORDERABLES Final Result [facility] [place] [address] * (ABNORMAL) Reticulocyte Count (08/18/2024 8:13 PM CDT) Pathologist [facility] Retics, absolute 42 20 - 87 K/cumm Retics 1.6 0.4 - 2.9 % [facility] Reticulocyte Hgb 25.2(L) 30.5 - 38.0 pg [facility] Blood 08/18/2024 8:13 PM CDT 08/18/2024 8:49 PM CDT Valerie Cooper MD PhD LAB BLOOD ORDERABLES Final Result Performing Organization Address City/[facility]/ZIP Co de Phone Number [facility] [place] [address] * (ABNORMAL) CRP (acute phase) (08/18/2024 8:13 PM CDT) Pathologist [facility] CRP 268.2(H) <=10.0 mg/L Blood 08/18/2024 8:13 PM CDT 08/18/2024 8:49 PM CDT Valerie Cooper MD PhD LAB BLOOD ORDERABLES Edited Result - Final Performing Organization Address City/[facility]/ZIP Co de Phone Number [facility] [place] [address] * Magnesium (08/18/2024 8:13 PM CDT) Pathologist [facility] Magnesium 2.0 1.4 - 2.5 mg/dL Blood 08/18/2024 8:13 PM CDT 08/18/2024 8:49 PM CDT Valerie Cooper MD PhD LAB BLOOD ORDERABLES Final Result Performing Organization Address City/[facility]/ZIP Co de Phone Number [facility] [place] [address] * Creatine kinase (CK), total (08/18/2024 8:13 PM CDT) CK 69 30 - 200 Units/L Comment:Reviewed Blood 08/18/2024 8:13 PM CDT 08/18/2024 8:49 PM CDT us Royal Weiss MD LAB BLOOD ORDERABLES Florinda hanson Result [facility] Department [place] [address] * (ABNORMAL) Comprehensive metabolic panel (08/18/2024 8:13 PM CDT) Sodium 133(L) 135 - 145 mmol/L Potassium, pl 4.6 3.3 - 4.9 mmol/L [facility] Chloride 97 97 - 110 mmol/L [facility] CO2 29 22 - 32 mmol/L [facility] Anion gap 7 2 - 15 mmol/L [facility] BUN 23 6 - 25 mg/dL [facility] Creatinine 5.22(H) 0.60 - 1.10 mg/dL [facility] Glucose 57(L) 70 - 199 mg/dL [facility] Comment: Interpretive Data Fasting glucose >/= 126 mg/dl is diagnostic for diabetes. Fasting is defined as no caloric intake for at least 8 hours. Fasting glucose between 100 mg/dl to 125 mg/dl is diagnostic of prediabetes. In a patient with classic symptoms of hyperglycemia or hyperglycemic crisis, a random glucose >/= 200 mg/dl is diagnostic for diabetes. In the absence of unequivocal hyperglycemia, results should be confirmed by repeat testing. The classification and Diagnosis of Diabetes Diabetes Care 2021; 46: S19-S40. Current interpretive data was last revised 2022. Calcium 8.4(L) 8.5 - 10.3 mg/dL [facility] Bilirubin, total 0.4 0.1 - 1.2 mg/dL [facility] Protein, pl 7.6 6.5 - 8.5 g/dL [facility] Albumin 1.7(L) 3.5 - 5.0 g/dL [facility] Alk phos 98 40 - 130 Units/L [facility] ALT 6(L) 7 - 45 Units/L [facility] AST 23 10 - 45 Units/L [facility] Blood 08/18/2024 8:13 PM CDT 08/18/2024 8:49 PM CDT us Valerie Cooper MD PhD LAB BLOOD ORDERABLES Final Result [facility] Department [place] [address] * CT Thoracic and Lumbar Spine WO Contrast (08/17/2024 11:20 PM CDT) Anatomical Region Laterality Modality Spine N/A Computed Tomogra phy 08/17/2024 11:5 3 PM CDT Impressions 08/18/2024 9:53 AM CDT 1. Partially evaluated moderate bilateral pleural effusions and sequela of septic pulmonary emboli better evaluated on dedicated chest CT. ADDENDUM - This addendum is being placed on the report for a time dependent finding on a patient who is admitted to the hospital (2B). There are degenerative changes at L5-S1, but possibly superimposed new erosions of the endplates on the right as compared to the recent body CT from 08/07/2024. Given known endocarditis, this raises the possibility of discitis osteomyelitis; recommend MRI of the lumbar spine with and without contrast for further evaluation. These findings were communicated to Dr. Cooper by Raghu POSADA at 8:20 AM. Dictated by: Enrique Krishnamurthy MD The radiology attending physician has personally reviewed this study, and had reviewed and/or edited this written report and agrees with it. Electronically signed by: Calos Weeks M.D. Narrative 08/18/2024 9:53 AM CDT EXAMINATION: 1. CT of the thoracic spine without contrast 2. CT of the lumbar spine without contrast HISTORY: Patient with septic pulmonary emboli and back pain, concern for infectious process. TECHNIQUE: CT of the thoracic spine was performed according to standard protocol without intravenous contrast. CT of the lumbar spine was performed according to the standard protocol without intravenous contrast. COMPARISON: CT from 08/07/2024 FINDINGS: THORACIC SPINE: There are 12 rib-bearing thoracic vertebra. The alignment of the thoracic spine is normal. Mild deformity of the T10 superior endplate is likely degenerative and due to a Schmorl's node, unchanged when compared to prior chest CT from 08/07/2024. No retropulsion. Intervertebral disk heights are normal. Partially imaged moderate left and small right pleural effusion with septic pulmonary emboli that are better evaluated on dedicated chest. The thoracic aorta is normal. The disks are normal in configuration. There is no facet hypertrophy. There is no neuroforaminal stenosis. There is no spinal canal stenosis. LUMBAR SPINE: The alignment of the lumbar spine is normal. There is no acute fracture. The vertebral bodies are normal in height without compression fractures. The intervertebral disk heights are normal. There is no soft tissue abnormality. The abdominal aorta appears normal. Procedure Note Calos Weeks MD - 08/18/2024 EXAMINATION: 1. CT of the thoracic spine without contrast 2. CT of the lumbar spine without contrast HISTORY: Patient with septic pulmonary emboli and back pain, concern for infectious process. TECHNIQUE: CT of the thoracic spine was performed according to standard protocol without intravenous contrast. CT of the lumbar spine was performed according to the standard protocol without intravenous contrast. COMPARISON: CT from 08/07/2024 FINDINGS: THORACIC SPINE: There are 12 rib-bearing thoracic vertebra. The alignment of the thoracic spine is normal. Mild deformity of the T10 superior endplate is likely degenerative and due to a Schmorl's node, unchanged when compared to prior chest CT from 08/07/2024. No retropulsion. Intervertebral disk heights are normal. Partially imaged moderate left and small right pleural effusion with septic pulmonary emboli that are better evaluated on dedicated chest. The thoracic aorta is normal. The disks are normal in configuration. There is no facet hypertrophy. There is no neuroforaminal stenosis. There is no spinal canal stenosis. LUMBAR SPINE: The alignment of the lumbar spine is normal. There is no acute fracture. The vertebral bodies are normal in height without compression fractures. The intervertebral disk heights are normal. There is no soft tissue abnormality. The abdominal aorta appears normal. IMPRESSION: 1. Partially evaluated moderate bilateral pleural effusions and sequela of septic pulmonary emboli better evaluated on dedicated chest CT. ADDENDUM - This addendum is being placed on the report for a time dependent finding on a patient who is admitted to the hospital (2B). There are degenerative changes at L5-S1, but possibly superimposed new erosions of the endplates on the right as compared to the recent body CT from 08/07/2024. Given known endocarditis, this raises the possibility of discitis osteomyelitis; recommend MRI of the lumbar spine with and without contrast for further evaluation. These findings were communicated to Dr. Cooper by Raghu POSADA at 8:20 AM. Dictated by: Enrique Krishnamurthy MD The radiology attending physician has personally reviewed this study, and had reviewed and/or edited this written report and agrees with it. Electronically signed by: Calos Weeks M.D. Valerie Cooper MD PhD IMG CT PROCEDURES Fi nal Result * (ABNORMAL) eGFR (08/17/2024 4:44 PM CDT) eGFR 16(L) >=60 mL/min/1. 73 m2 Comment: Interpretive Data Reference Interval Normal >/= 90 mL/min/1.73m2 Mildly decreased* 60 - 89 mL/min/1.73m2 Mildly to moderately decreased 45 - 59 mL/min/1.73m2 Moderately to severely decreased 30 - 44 mL/min/1.73m2 Severely decreased 15 - 29 mL/min/1.73m2 Kidney Failure < 15 mL/min/1.73m2 *Relative to young adult level Estimated glomerular filtration rate is determined by the 2020 CKD-EPI equation recommended by the National Kidney Foundation (A Unifying Approach to GFR Estimation: Recommendations of the NKF-ASK Task Force on Reassessing the Inclusion of Race in Diagnosing Kidney Disease, JASN 202). The CKD-EPI equation should not be used for patients with unstable renal function and has not been validated in children and those over 70. Current interpretive data was last reviewed 2021. Blood 08/17/2024 4:44 PM CDT 08/17/2024 5:04 PM CDT Valerie Cooper MD PhD LAB BLOOD ORDERABLES Final Result [facility] Department [place] [address] * (ABNORMAL) Differential, auto (08/17/2024 4:44 PM CDT) Pathologist [facility] Neutrophil abs 8.66(H) 1.50 - 6.50 K/cumm Imm gran abs 0.10 0.00 - 0.10 K/cumm [facility] Lymphocyte abs 1.36 0.80 - 3.30 K/cumm [facility] Monocyte abs 0.77 0.20 - 0.80 K/cumm [facility] Eosinophil abs 0.14 0.00 - 0.50 K/cumm [facility] Basophil abs 0.07 0.00 - 0.10 K/cumm [facility] Neutrophil pct 78.0 % [facility] Comment: Interpretive Data Percent cell count reference ranges are not reported, since discordance with absolute values may lead to misinterpretation of CBC data. Current Interpretive Data was last revised on 2017. Imm gran pct 0.9 % [facility] Comment: Interpretive Data Percent cell count reference ranges are not reported, since discordance with absolute values may lead to misinterpretation of CBC data. Current Interpretive Data was last revised on 2017. Lymphocyte pct 12.3 % [facility] Comment: Interpretive Data Percent cell count reference ranges are not reported, since discordance with absolute values may lead to misinterpretation of CBC data. Current Interpretive Data was last revised on 2017. Monocyte pct 6.9 % [facility] Comment: Interpretive Data Percent cell count reference ranges are not reported, since discordance with absolute values may lead to misinterpretation of CBC data. Current Interpretive Data was last revised on 2017. Eosinophil pct 1.3 % [facility] Comment: Interpretive Data Percent cell count reference ranges are not reported, since discordance with absolute values may lead to misinterpretation of CBC data. Current Interpretive Data was last revised on 2017. Basophil pct 0.6 % [facility] Comment: Interpretive Data Percent cell count reference ranges are not reported, since discordance with absolute values may lead to misinterpretation of CBC data. Current Interpretive Data was last revised on 2017. Blood 08/17/2024 4:44 PM CDT 08/17/2024 5:04 PM CDT us Valerie Cooper MD PhD LAB BLOOD ORDERABLES Final Result [facility] [place] [address] * (ABNORMAL) CBC with auto differential (08/17/2024 4:44 PM CDT) [facility] WBC 11.10(H) 3.80 - 9.90 K/cumm Hgb 7.9(L) 11.9 - 15.5 g/dL [facility] Hct 24.3(L) 35.6 - 45.5 % [facility] Plt 367 150 - 400 K/cumm [facility] MPV 9.5 9.1 - 12.3 fL [facility] RBC 2.87(L) 3.90 - 5.20 M/cumm [facility] MCV 84.7 81.3 - 96.4 fL [facility] MCH 27.5 27.1 - 33.3 pg [facility] MCHC 32.5 32.3 - 35.7 g/dL [facility] RDW CV 16.2(H) 11.1 - 14.9 % [facility] RDW SD 50.2(H) 35.7 - 48.1 fL [facility] NRBC abs 0.00 0.00 - 0.01 K/cumm [facility] Blood 08/17/2024 4:44 PM CDT 08/17/2024 5:04 PM CDT Valerie Cooper MD PhD LAB BLOOD ORDERABLES Final Result [facility] [place] [address] * Hepatitis B core antibody, total Blood (08/17/2024 4:44 PM CDT) Pathologist [facility] Hep B core IgG/IgM Nonreactive Nonreactive Blood 08/17/2024 4:44 PM CDT 08/17/2024 5:06 PM CDT Valerie Cooper MD PhD LAB MICROBIOLOGY - G ENERAL ORDERABLES Final Result Performing Organization Address City/[facility] Co de Phone Number [facility] Department [place] [address] * Hepatitis B surface antibody (immune status) Blood (08/17/2024 4:44 PM CDT) [facility] HBsAb (immune status) Reactive Comment:This result is consi stent with immunity to Hepatitis B Virus when used in the setting of routine screening. Current interpretive data was last revised on 21 HBsAb (immune status) index 117.0 mIUnits/m L [facility] Blood 08/17/2024 4:44 PM CDT 08/17/2024 5:06 PM CDT Valerie Cooper MD PhD LAB MICROBIOLOGY - G ENERAL ORDERABLES Final Result Performing Organization Address [facility] Co de Phone Number [facility] Department [place] [address] * (ABNORMAL) Reticulocyte Count (08/17/2024 4:44 PM CDT) [facility] Retics, absolute 38 20 - 87 K/cumm Retics 1.4 0.4 - 2.9 % [facility] Reticulocyte Hgb 25.0(L) 30.5 - 38.0 pg [facility] Blood 08/17/2024 4:44 PM CDT 08/17/2024 5:04 PM CDT Valerie Cooper MD PhD LAB BLOOD ORDERABLES Final Result Performing Organization Address [facility] Co de Phone Number [facility] [place] [address] * Type and screen (08/17/2024 4:44 PM CDT) ABO Rh A Positive Marybeth, indirect Negative [facility] Blood 08/17/2024 4:44 PM CDT 08/17/2024 4:57 PM CDT Narrative [facility] - 08/17/2024 6:00 PM CDT Has the patient had Daratumumab or Isatuximab in the past 6 months?->Unknown Royal Weiss MD LAB BLOOD BANK TEST ORDER MARTINEZ Final Result [facility] Department [place] [address] * (ABNORMAL) Comprehensive metabolic panel (08/17/2024 4:44 PM CDT) Sodium 133(L) 135 - 145 mmol/L Potassium, pl 4.2 3.3 - 4.9 mmol/L [facility] Chloride 96(L) 97 - 110 mmol/L [facility] CO2 30 22 - 32 mmol/L [facility] Anion gap 7 2 - 15 mmol/L [facility] BUN 22 6 - 25 mg/dL [facility] Creatinine 3.80(H) 0.60 - 1.10 mg/dL [facility] Glucose 71 70 - 199 mg/dL [facility] Comment: Interpretive Data Fasting glucose >/= 126 mg/dl is diagnostic for diabetes. Fasting is defined as no caloric intake for at least 8 hours. Fasting glucose between 100 mg/dl to 125 mg/dl is diagnostic of prediabetes. In a patient with classic symptoms of hyperglycemia or hyperglycemic crisis, a random glucose >/= 200 mg/dl is diagnostic for diabetes. In the absence of unequivocal hyperglycemia, results should be confirmed by repeat testing. The classification and Diagnosis of Diabetes Diabetes Care 202; 46: S19-S40. Current interpretive data was last revised 2022. Calcium 8.0(L) 8.5 - 10.3 mg/dL [facility] Bilirubin, total 0.4 0.1 - 1.2 mg/dL [facility] Protein, pl 7.7 6.5 - 8.5 g/dL [facility] Albumin 1.9(L) 3.5 - 5.0 g/dL [facility] Alk phos 102 40 - 130 Units/L [facility] ALT 5(L) 7 - 45 Units/L [facility] AST 24 10 - 45 Units/L [facility] Blood 08/17/2024 4:44 PM CDT 08/17/2024 5:04 PM CDT Valerie Cooper MD PhD LAB BLOOD ORDERABLES Final Result [facility] Department [place] [address] * Blood culture Blood (08/17/2024 3:03 PM CDT) Report Final Report: No growth Blood 08/17/2024 3:03 PM CDT 08/17/2024 3:47 PM CDT Narrative [facility] - 08/21/2024 4:00 PM CDT Draw in HD Collection->Existing Line Line Location->Dialysis catheter 1. Blood cultures are incubated for 4 days on a continuously monitored blood culture system. The first report of a negative culture is issued within 24 hours of receipt of the specimen in the laboratory. 2. Positive culture results are reported as soon as they are detected. 3. The most important factor for detection of microbes in the setting of bloodstream infection is the volume of blood submitted for culture. Failure to collect an optimal blood volume can result in false negative blood cultures. 4. For pediatric patients, the recommended blood volume to collect follows a weight based strategy. See the electronic test catalog for collection instructions. 5. For positive blood cultures, a rapid molecular test may be performed for organism identification using the pramod ePlex blood culture identification panel for gram positive (BCID-GP) and gram negative (BCID-GN) organisms. This nucleic acid amplification test detects microbial DNA in positive blood culture broth. This assay has been cleared by the [place] Food and Drug Administration and its performance characteristics have been verified by the [facility]. For questions about this culture, contact the Microbiology Laboratory at [phone]. Interpretive data was last revised on 24. us Valerie Cooper MD PhD LAB MICROBIOLOGY - G ENERAL ORDERABLES Final Result [facility] Department [place] [address] * Infection Prevention Helen auris PCR, surveillance Axilla/Groin (08/17/2024 11:33 AM CDT) Helen auris DNA Invalid Not Detected [facility] Comment: Unable to analyze due to the possible presence of inhibitory substances. Recommend submission of a second separately collected sample if clinically indicated. Interpretive Data Testing performed by [facility] Infectious Disease [facility] using the Noa pramod Titan Atlas Global0 Helen auris assay. This assay detects DNA from Helen auris using Real-Time PCR. This assay is laboratory developed and is not cleared by the [place] Food and Drug Administration. The performance characteristics have been verified by the [facility] Infectious Disease [facility]. Axilla/Groin 08/17/2024 11:3 3 AM CDT 08/17/2024 12:58 PM CDT Umang Phillips MD LAB MICROBIOLOGY - GENERAL ORDER MARTINEZ Final Result Performing Organization Address [facility] Co de Phone Number [facility] Department [place] [address] [facility] * XR Chest 1 View (08/17/2024 11:23 AM CDT) Anatomical Region Laterality Modality Body, Chest N/A Computed Radiogr aphy 08/17/2024 2:50 PM CDT Impressions 08/17/2024 4:17 PM CDT The current study is compared with the prior radiograph dated 08/09/2024 at 6:34 PM. Left internal jugular venous approach catheter with tip overlying the superior vena cava. Interval removal of a right internal jugular venous approach catheter. No significant interval change in multifocal airspace opacities within the bilateral lungs secondary to patient's known septic emboli. Interval increase in moderate bilateral layering pleural effusions with associated atelectasis. No pneumothorax. Stable cardiomediastinal silhouette. Dictated by: Matthieu Mattson M.D. The radiology attending physician has personally reviewed this study, and had reviewed and/or edited this written report and agrees with it. Electronically signed by: Vito Celestin M.D. Narrative 08/17/2024 4:17 PM CDT EXAMINATION: 1 view chest radiograph Procedure Note Vito Celestin MD - 08/17/2024 EXAMINATION: 1 view chest radiograph IMPRESSION: The current study is compared with the prior radiograph dated 08/09/2024 at 6:34 PM. Left internal jugular venous approach catheter with tip overlying the superior vena cava. Interval removal of a right internal jugular venous approach catheter. No significant interval change in multifocal airspace opacities within the bilateral lungs secondary to patient's known septic emboli. Interval increase in moderate bilateral layering pleural effusions with associated atelectasis. No pneumothorax. Stable cardiomediastinal silhouette. Dictated by: Matthieu Mattson M.D. The radiology attending physician has personally reviewed this study, and had reviewed and/or edited this written report and agrees with it. Electronically signed by: Vito Celestin M.D. Valerie Cooper MD PhD IMG XR PROCEDURES Fi nal Result * (ABNORMAL) eGFR (08/16/2024 8:17 PM CDT) eGFR 10(L) >=60 mL/min/1. 73 m2 Comment: Interpretive Data Reference Interval Normal >/= 90 mL/min/1.73m2 Mildly decreased* 60 - 89 mL/min/1.73m2 Mildly to moderately decreased 45 - 59 mL/min/1.73m2 Moderately to severely decreased 30 - 44 mL/min/1.73m2 Severely decreased 15 - 29 mL/min/1.73m2 Kidney Failure < 15 mL/min/1.73m2 *Relative to young adult level Estimated glomerular filtration rate is determined by the 2020 CKD-EPI equation recommended by the National Kidney Foundation (A Unifying Approach to GFR Estimation: Recommendations of the NKF-ASK Task Force on Reassessing the Inclusion of Race in Diagnosing Kidney Disease, JASN 2020). The CKD-EPI equation should not be used for patients with unstable renal function and has not been validated in children and those over 70. Current interpretive data was last reviewed 2021. Blood 08/16/2024 8:17 PM CDT 08/16/2024 8:51 PM CDT us Valerie Cooper MD PhD LAB BLOOD ORDERABLES Final Result [facility] Department [place] [address] * (ABNORMAL) Differential, auto (08/16/2024 8:17 PM CDT) Neutrophil abs 6.45 1.50 - 6.50 K/cumm Imm gran abs 0.12(H) 0.00 - 0.10 K/cumm [facility] [employer] [facility] Lymphocyte abs 1.62 0.80 - 3.30 K/cumm [facility] Monocyte abs 0.84(H) 0.20 - 0.80 K/cumm [employer] [facility] [employer] [facility] Eosinophil abs 0.19 0.00 - 0.50 K/cumm [facility] Basophil abs 0.07 0.00 - 0.10 K/cumm [employer] [facility] Neutrophil pct 69.5 % [facility] Comment: Interpretive Data Percent cell count reference ranges are not reported, since discordance with absolute values may lead to misinterpretation of CBC data. Current Interpretive Data was last revised on 2017. Imm gran pct 1.3 % [facility] Comment: Interpretive Data Percent cell count reference ranges are not reported, since discordance with absolute values may lead to misinterpretation of CBC data. Current Interpretive Data was last revised on 2017. Lymphocyte pct 17.4 % [facility] Comment: Interpretive Data Percent cell count reference ranges are not reported, since discordance with absolute values may lead to misinterpretation of CBC data. Current Interpretive Data was last revised on 2017. Monocyte pct 9.0 % [facility] Comment: Interpretive Data Percent cell count reference ranges are not reported, since discordance with absolute values may lead to misinterpretation of CBC data. Current Interpretive Data was last revised on 2017. Eosinophil pct 2.0 % [facility] Comment: Interpretive Data Percent cell count reference ranges are not reported, since discordance with absolute values may lead to misinterpretation of CBC data. Current Interpretive Data was last revised on 2017. Basophil pct 0.8 % [facility] Comment: Interpretive Data Percent cell count reference ranges are not reported, since discordance with absolute values may lead to misinterpretation of CBC data. Current Interpretive Data was last revised on 2017. Blood 08/16/2024 8:17 PM CDT 08/16/2024 8:51 PM CDT us Vaelrie Cooper MD PhD LAB BLOOD ORDERABLES Final Result [facility] Department [place] [address] * (ABNORMAL) CBC with auto differential (08/16/2024 8:17 PM CDT) WBC 9.29 3.80 - 9.90 K/cumm Hgb 7.4(L) 11.9 - 15.5 g/dL [facility] Hct 23.3(L) 35.6 - 45.5 % [facility] Plt 321 150 - 400 K/cumm [facility] MPV 10.0 9.1 - 12.3 fL [facility] RBC 2.69(L) 3.90 - 5.20 M/cumm [facility] MCV 86.6 81.3 - 96.4 fL [facility] MCH 27.5 27.1 - 33.3 pg [facility] MCHC 31.8(L) 32.3 - 35.7 g/dL [facility] RDW CV 16.7(H) 11.1 - 14.9 % [facility] RDW SD 52.4(H) 35.7 - 48.1 fL [facility] NRBC abs 0.00 0.00 - 0.01 K/cumm [facility] Blood 08/16/2024 8:17 PM CDT 08/16/2024 8:51 PM CDT Valerie Cooper MD PhD LAB BLOOD ORDERABLES Final Result Performing Organization Address [facility] de Phone Number [facility] [place] [address] * (ABNORMAL) Reticulocyte Count (08/16/2024 8:17 PM CDT) [facility] Retics, absolute 46 20 - 87 K/cumm Retics 1.7 0.4 - 2.9 % [facility] Reticulocyte Hgb 24.7(L) 30.5 - 38.0 pg [facility] Blood 08/16/2024 8:17 PM CDT 08/16/2024 8:51 PM CDT Valerie Cooper MD PhD LAB BLOOD ORDERABLES Final Result Performing Organization Address [facility] [place] [address] * (ABNORMAL) Comprehensive metabolic panel (08/16/2024 8:17 PM CDT) [facility] Sodium 137 135 - 145 mmol/L Potassium, pl 5.1(H) 3.3 - 4.9 mmol/L [facility] Chloride 98 97 - 110 mmol/L [facility] CO2 29 22 - 32 mmol/L [facility] Anion gap 10 2 - 15 mmol/L [facility] BUN 39(H) 6 - 25 mg/dL [facility] Creatinine 5.74(H) 0.60 - 1.10 mg/dL [facility] Glucose 72 70 - 199 mg/dL [facility] Comment: Interpretive Data Fasting glucose >/= 126 mg/dl is diagnostic for diabetes. Fasting is defined as no caloric intake for at least 8 hours. Fasting glucose between 100 mg/dl to 125 mg/dl is diagnostic of prediabetes. In a patient with classic symptoms of hyperglycemia or hyperglycemic crisis, a random glucose >/= 200 mg/dl is diagnostic for diabetes. In the absence of unequivocal hyperglycemia, results should be confirmed by repeat testing. The classification and Diagnosis of Diabetes Diabetes Care 2021; 46: S19-S40. Current interpretive data was last revised 2022. Calcium 8.1(L) 8.5 - 10.3 mg/dL [facility] Bilirubin, total 0.4 0.1 - 1.2 mg/dL [facility] Protein, pl 7.3 6.5 - 8.5 g/dL [facility] Albumin 1.8(L) 3.5 - 5.0 g/dL [facility] Alk phos 112 40 - 130 Units/L [facility] ALT 6(L) 7 - 45 Units/L [facility] AST 21 10 - 45 Units/L [facility] Blood 08/16/2024 8:17 PM CDT 08/16/2024 8:51 PM CDT us Valerie Cooper MD PhD LAB BLOOD ORDERABLES Final Result [facility] Department of [employer] [place], [place] [id number] * Transfuse RBC (08/16/2024 3:23 PM CDT) Blood Valerie Cooper MD PhD BLOOD TRANSFUSION OR DERABLES Final Result [facility] Department [place] [address] * Prepare RBC: 1 Units (08/16/2024 8:02 AM CDT) [facility] Product code [id number] Unit Number [id number] [facility] Product Blood Type APOS [facility] Dispense Status PRESUMED TRANSFUSED [facility] Blood 08/16/2024 8:02 AM CDT 08/16/2024 8:02 AM CDT Narrative [facility] - 08/17/2024 12:57 AM CDT Are special requirements needed? (All products are leukoreduced and CMV- safe)- >No Date required:-[id number] LRRBC # of [id number] Reasons:-Hgb <7 g/dL} Valerie Cooper MD PhD BLOOD BANK PRODUCT O RDERABLES Final Result Performing Organization Address City/[facility]/ZIP Co de Phone Number [facility] Department [place] [address] * (ABNORMAL) eGFR (08/15/2024 9:22 PM CDT) Pathologist [facility] eGFR 13(L) >=60 mL/min/1. 73 m2 Comment: Interpretive Data Reference Interval Normal >/= 90 mL/min/1.73m2 Mildly decreased* 60 - 89 mL/min/1.73m2 Mildly to moderately decreased 45 - 59 mL/min/1.73m2 Moderately to severely decreased 30 - 44 mL/min/1.73m2 Severely decreased 15 - 29 mL/min/1.73m2 Kidney Failure < 15 mL/min/1.73m2 *Relative to young adult level Estimated glomerular filtration rate is determined by the 2020 CKD-EPI equation recommended by the National Kidney Foundation (A Unifying Approach to GFR Estimation: Recommendations of the NKF-ASK Task Force on Reassessing the Inclusion of Race in Diagnosing Kidney Disease, JASN 202). The CKD-EPI equation should not be used for patients with unstable renal function and has not been validated in children and those over 70. Current interpretive data was last reviewed 2021. Blood 08/15/2024 9:22 PM CDT 08/15/2024 9:51 PM CDT Valerie Cooper MD PhD LAB BLOOD ORDERABLES Final Result Performing Organization Address City/[facility]/ZIP Co de Phone Number [facility] [place] [address] * (ABNORMAL) Differential, auto (08/15/2024 9:22 PM CDT) Neutrophil abs 6.15 1.50 - 6.50 K/cumm Imm gran abs 0.11(H) 0.00 - 0.10 K/cumm [facility] Lymphocyte abs 1.37 0.80 - 3.30 K/cumm [facility] Monocyte abs 0.63 0.20 - 0.80 K/cumm [facility] Eosinophil abs 0.14 0.00 - 0.50 K/cumm [facility] Basophil abs 0.04 0.00 - 0.10 K/cumm [facility] Neutrophil pct 72.8 % [facility] Comment: Interpretive Data Percent cell count reference ranges are not reported, since discordance with absolute values may lead to misinterpretation of CBC data. Current Interpretive Data was last revised on 2017. Imm gran pct 1.3 % [facility] Comment: Interpretive Data Percent cell count reference ranges are not reported, since discordance with absolute values may lead to misinterpretation of CBC data. Current Interpretive Data was last revised on 2017. Lymphocyte pct 16.2 % [facility] Comment: Interpretive Data Percent cell count reference ranges are not reported, since discordance with absolute values may lead to misinterpretation of CBC data. Current Interpretive Data was last revised on 2017. Monocyte pct 7.5 % [facility] Comment: Interpretive Data Percent cell count reference ranges are not reported, since discordance with absolute values may lead to misinterpretation of CBC data. Current Interpretive Data was last revised on 2017. Eosinophil pct 1.7 % [facility] Comment: Interpretive Data Percent cell count reference ranges are not reported, since discordance with absolute values may lead to misinterpretation of CBC data. Current Interpretive Data was last revised on 2017. Basophil pct 0.5 % [facility] Comment: Interpretive Data Percent cell count reference ranges are not reported, since discordance with absolute values may lead to misinterpretation of CBC data. Current Interpretive Data was last revised on 2017. Blood 08/15/2024 9:22 PM CDT 08/15/2024 9:52 PM CDT us Valerie Cooper MD PhD LAB BLOOD ORDERABLES Final Result [facility] Department [place] [address] * (ABNORMAL) CBC with auto differential (08/15/2024 9:22 PM CDT) [facility] WBC 8.44 3.80 - 9.90 K/cumm Hgb 6.8(L) 11.9 - 15.5 g/dL [facility] Hct 21.3(L) 35.6 - 45.5 % [facility] Plt 270 150 - 400 K/cumm [facility] MPV 9.9 9.1 - 12.3 fL [facility] RBC 2.48(L) 3.90 - 5.20 M/cumm [facility] MCV 85.9 81.3 - 96.4 fL [facility] MCH 27.4 27.1 - 33.3 pg [facility] MCHC 31.9(L) 32.3 - 35.7 g/dL [facility] RDW CV 17.2(H) 11.1 - 14.9 % [facility] RDW SD 54.1(H) 35.7 - 48.1 fL [facility] NRBC abs 0.00 0.00 - 0.01 K/cumm [facility] Blood 08/15/2024 9:22 PM CDT 08/15/2024 9:52 PM CDT us Valerie Cooper MD PhD LAB BLOOD ORDERABLES Final Result [facility] Department [place] [address] * (ABNORMAL) Reticulocyte Count (08/15/2024 9:22 PM CDT) Pathologist [facility] Retics, absolute 56 20 - 87 K/cumm Retics 2.3 0.4 - 2.9 % [facility] Reticulocyte Hgb 22.8(L) 30.5 - 38.0 pg [facility] Blood 08/15/2024 9:22 PM CDT 08/15/2024 9:52 PM CDT us Valerie Cooper MD PhD LAB BLOOD ORDERABLES Final Result [facility] Department [place] [address] * (ABNORMAL) Comprehensive metabolic panel (08/15/2024 9:22 PM CDT) Sodium 133(L) 135 - 145 mmol/L Potassium, pl 4.6 3.3 - 4.9 mmol/L [facility] Chloride 96(L) 97 - 110 mmol/L [facility] CO2 32 22 - 32 mmol/L [facility] Anion gap 5 2 - 15 mmol/L [facility] BUN 28(H) 6 - 25 mg/dL [facility] Creatinine 4.40(H) 0.60 - 1.10 mg/dL [facility] Glucose 73 70 - 199 mg/dL [facility] Comment: Interpretive Data Fasting glucose >/= 126 mg/dl is diagnostic for diabetes. Fasting is defined as no caloric intake for at least 8 hours. Fasting glucose between 100 mg/dl to 125 mg/dl is diagnostic of prediabetes. In a patient with classic symptoms of hyperglycemia or hyperglycemic crisis, a random glucose >/= 200 mg/dl is diagnostic for diabetes. In the absence of unequivocal hyperglycemia, results should be confirmed by repeat testing. The classification and Diagnosis of Diabetes Diabetes Care 202; 46: S19-S40. Current interpretive data was last revised 2022. Calcium 8.0(L) 8.5 - 10.3 mg/dL [facility] Bilirubin, total 0.3 0.1 - 1.2 mg/dL [facility] Protein, pl 7.3 6.5 - 8.5 g/dL [facility] Albumin 1.8(L) 3.5 - 5.0 g/dL [facility] Alk phos 91 40 - 130 Units/L [facility] ALT 6(L) 7 - 45 Units/L [facility] AST 19 10 - 45 Units/L [facility] Blood 08/15/2024 9:22 PM CDT 08/15/2024 9:51 PM CDT Valerie Cooper MD PhD LAB BLOOD ORDERABLES Final Result Performing Organization Address City/[facility] Co de Phone Number [facility] [place] [address] * POCT glucose (08/15/2024 9:20 PM CDT) Glucose, POC 78 70 - 199 mg/dL Blood 08/15/2024 9:20 PM CDT 08/15/2024 9:20 PM CDT Valerie Cooper MD PhD LAB POCT ORDERABLES - DEVICE Final Result Performing Organization Address [facility] Co de Phone Number [facility] [place] [address] * POCT glucose (08/15/2024 5:54 PM CDT) Glucose, POC 72 70 - 199 mg/dL Blood 08/15/2024 5:54 PM CDT 08/15/2024 5:54 PM CDT Valerie Cooper MD PhD LAB POCT ORDERABLES - DEVICE Final Result Performing Organization Address City/[facility] Co de Phone Number [facility] [place] [address] * POCT glucose (08/15/2024 1:42 PM CDT) Glucose, POC 106 70 - 199 mg/dL Blood 08/15/2024 1:42 PM CDT 08/15/2024 1:42 PM CDT us Valerie Cooper MD PhD LAB POCT ORDERABLES - DEVICE Final Result Performing Organization Address [facility] Co de Phone Number [facility] [place] [address] * POCT glucose (08/15/2024 1:20 PM CDT) Glucose, POC 86 70 - 199 mg/dL Blood 08/15/2024 1:20 PM CDT 08/15/2024 1:20 PM CDT Valerie Cooper MD PhD LAB POCT ORDERABLES - DEVICE Final Result Performing Organization Address [facility] Co de Phone Number [facility] [place] [address] * (ABNORMAL) POCT glucose (08/15/2024 1:02 PM CDT) Glucose, POC 64(L) 70 - 199 mg/dL Blood 08/15/2024 1:02 PM CDT 08/15/2024 1:02 PM CDT Valerie Cooper MD PhD LAB POCT ORDERABLES - DEVICE Final Result Performing Organization Address [facility] Co de Phone Number [facility] [place] [address] * (ABNORMAL) POCT glucose (08/15/2024 12:50 PM CDT) Glucose, POC 55(L) 70 - 199 mg/dL Blood 08/15/2024 12:5 0 PM CDT 08/15/2024 12:50 PM CDT Valerie Cooper MD PhD LAB POCT ORDERABLES - DEVICE Final Result Performing Organization Address [facility] Co de Phone Number [facility] [place] [address] * (ABNORMAL) POCT glucose (08/15/2024 12:41 PM CDT) Glucose, POC 56(L) 70 - 199 mg/dL Blood 08/15/2024 12:4 1 PM CDT 08/15/2024 12:41 PM CDT Valerie Cooper MD PhD LAB POCT ORDERABLES - DEVICE Final Result Performing Organization Address [facility]/[place] [address] * POCT glucose (08/15/2024 11:16 AM CDT) Pathologist [facility] Glucose, POC 77 70 - 199 mg/dL Blood 08/15/2024 11:1 6 AM CDT 08/15/2024 11:16 AM CDT Valerie Cooper MD PhD LAB POCT ORDERABLES - DEVICE Final Result Performing Organization Address [facility] [place] [place] [address] * Blood culture Blood (08/15/2024 8:10 AM CDT) [facility] Report Final Report: No growth Blood 08/15/2024 8:10 AM CDT 08/15/2024 8:30 AM CDT Narrative [facility] - 08/19/2024 12:00 PM CDT Collection->Peripheral 1. Blood cultures are incubated for 4 days on a continuously monitored blood culture system. The first report of a negative culture is issued within 24 hours of receipt of the specimen in the laboratory. 2. Positive culture results are reported as soon as they are detected. 3. The most important factor for detection of microbes in the setting of bloodstream infection is the volume of blood submitted for culture. Failure to collect an optimal blood volume can result in false negative blood cultures. 4. For pediatric patients, the recommended blood volume to collect follows a weight based strategy. See the electronic test catalog for collection instructions. 5. For positive blood cultures, a rapid molecular test may be performed for organism identification using the pramod ePlex blood culture identification panel for gram positive (BCID-GP) and gram negative (BCID-GN) organisms. This nucleic acid amplification test detects microbial DNA in positive blood culture broth. This assay has been cleared by the [place] Food and Drug Administration and its performance characteristics have been verified by the [facility]. For questions about this culture, contact the Microbiology Laboratory at [phone]. Interpretive data was last revised on 24. Hina Poon MD LAB MICROBIOLOGY - GENERAL O RDERABLES Final Result [facility] Department [place] [address] * POCT glucose (08/15/2024 6:03 AM CDT) Glucose, POC 138 70 - 199 mg/dL Blood 08/15/2024 6:03 AM CDT 08/15/2024 6:03 AM CDT Valerie Cooper MD PhD LAB POCT ORDERABLES - DEVICE Final Result Performing Organization Address [facility]/ZIP Co de Phone Number [facility] Department [place] [address] * (ABNORMAL) Potassium (08/15/2024 5:02 AM CDT) Potassium, pl 6.0(H) 3.3 - 4.9 mmol/L Blood 08/15/2024 5:02 AM CDT 08/15/2024 5:20 AM CDT Narrative [facility] - 08/15/2024 6:04 AM CDT Provider to discontinue after two normal results. Valerie Cooper MD PhD LAB BLOOD ORDERABLES Final Result Performing Organization Address [facility] [place] [address] * POCT glucose (08/15/2024 5:01 AM CDT) Glucose, POC 73 70 - 199 mg/dL Blood 08/15/2024 5:01 AM CDT 08/15/2024 5:01 AM CDT Valerie Cooper MD PhD LAB POCT ORDERABLES - DEVICE Final Result Performing Organization Address [facility] [place] [address] * POCT glucose (08/15/2024 2:51 AM CDT) Glucose, POC 123 70 - 199 mg/dL Blood 08/15/2024 2:51 AM CDT 08/15/2024 2:51 AM CDT Valerie Cooper MD PhD LAB POCT ORDERABLES - DEVICE Final Result Performing Organization Address [facility] Co de Phone Number [facility] [place] [address] * POCT glucose (08/15/2024 1:42 AM CDT) Glucose, POC 86 70 - 199 mg/dL Blood 08/15/2024 1:42 AM CDT 08/15/2024 1:42 AM CDT Valerie Cooper MD PhD LAB POCT ORDERABLES - DEVICE Final Result Performing Organization Address [facility] Co de Phone Number [facility] [place] [address] * POCT glucose (08/15/2024 12:49 AM CDT) Glucose, POC 143 70 - 199 mg/dL Blood 08/15/2024 12:4 9 AM CDT 08/15/2024 12:49 AM CDT Valerie Cooper MD PhD LAB POCT ORDERABLES - DEVICE Final Result Performing Organization Address [facility]/ZIP Co de Phone Number [facility] [place] [address] * POCT glucose (08/14/2024 11:45 PM CDT) Glucose, POC 162 70 - 199 mg/dL Blood 08/14/2024 11:4 5 PM CDT 08/14/2024 11:45 PM CDT Valerie Cooper MD PhD LAB POCT ORDERABLES - DEVICE Final Result Performing Organization Address [facility] Co de Phone Number [facility] [place] [address] * POCT glucose (08/14/2024 10:32 PM CDT) Glucose, POC 103 70 - 199 mg/dL Blood 08/14/2024 10:3 2 PM CDT 08/14/2024 10:32 PM CDT Valerie Cooper MD PhD LAB POCT ORDERABLES - DEVICE Final Result Performing Organization Address [facility] Co de Phone Number [facility] [place] [address] * (ABNORMAL) eGFR (08/14/2024 8:44 PM CDT) Pathologist [facility] eGFR 8(L) >=60 mL/min/1. 73 m2 Comment: Interpretive Data Reference Interval Normal >/= 90 mL/min/1.73m2 Mildly decreased* 60 - 89 mL/min/1.73m2 Mildly to moderately decreased 45 - 59 mL/min/1.73m2 Moderately to severely decreased 30 - 44 mL/min/1.73m2 Severely decreased 15 - 29 mL/min/1.73m2 Kidney Failure < 15 mL/min/1.73m2 *Relative to young adult level Estimated glomerular filtration rate is determined by the 2020 CKD-EPI equation recommended by the National Kidney Foundation (A Unifying Approach to GFR Estimation: Recommendations of the NKF-ASK Task Force on Reassessing the Inclusion of Race in Diagnosing Kidney Disease, JASN 2020). The CKD-EPI equation should not be used for patients with unstable renal function and has not been validated in children and those over 70. Current interpretive data was last reviewed 2021. Blood 08/14/2024 8:44 PM CDT 08/14/2024 9:32 PM CDT us Valerie Cooper MD PhD LAB BLOOD ORDERABLES Final Result [facility] Department [place] [address] * (ABNORMAL) Differential, auto (08/14/2024 8:44 PM CDT) Neutrophil abs 9.34(H) 1.50 - 6.50 K/cumm Imm gran abs 0.16(H) 0.00 - 0.10 K/cumm [facility] Lymphocyte abs 1.58 0.80 - 3.30 K/cumm [facility] Monocyte abs 0.78 0.20 - 0.80 K/cumm [facility] Eosinophil abs 0.11 0.00 - 0.50 K/cumm [facility] Basophil abs 0.06 0.00 - 0.10 K/cumm [facility] Neutrophil pct 77.7 % [facility] Comment: Interpretive Data Percent cell count reference ranges are not reported, since discordance with absolute values may lead to misinterpretation of CBC data. Current Interpretive Data was last revised on 2017. Imm gran pct 1.3 % [facility] Comment: Interpretive Data Percent cell count reference ranges are not reported, since discordance with absolute values may lead to misinterpretation of CBC data. Current Interpretive Data was last revised on 2017. Lymphocyte pct 13.1 % [facility] Comment: Interpretive Data Percent cell count reference ranges are not reported, since discordance with absolute values may lead to misinterpretation of CBC data. Current Interpretive Data was last revised on 2017. Monocyte pct 6.5 % [facility] Comment: Interpretive Data Percent cell count reference ranges are not reported, since discordance with absolute values may lead to misinterpretation of CBC data. Current Interpretive Data was last revised on 2017. Eosinophil pct 0.9 % [facility] Comment: Interpretive Data Percent cell count reference ranges are not reported, since discordance with absolute values may lead to misinterpretation of CBC data. Current Interpretive Data was last revised on 2017. Basophil pct 0.5 % [facility] Comment: Interpretive Data Percent cell count reference ranges are not reported, since discordance with absolute values may lead to misinterpretation of CBC data. Current Interpretive Data was last revised on 2017. Blood 08/14/2024 8:44 PM CDT 08/14/2024 9:30 PM CDT us Valerie Cooper MD PhD LAB BLOOD ORDERABLES Final Result [facility] Department [place] [address] * Critical Result Callback Chemistry (08/14/2024 8:44 PM CDT) Date Notified [id number] Time Notified [id number] ARAMIS PRUITT TestName Potassium Plas ARAMIS PRUITT Called/Read Back Aniket PRUITT Credentials RN ARAMIS PRUITT Called By SB ARAMIS PRUITT Blood 08/14/2024 8:44 PM CDT 08/14/2024 9:32 PM CDT us Valerie Cooper MD PhD LAB BLOOD ORDERABLES Final Result Performing Organization Address [facility] Co de Phone Number [facility] [place] [address] * (ABNORMAL) Iron profile w/ IBC (08/14/2024 8:44 PM CDT) [facility] Iron 12(L) 35 - 145 mcg/dL TIBC 127(L) 250 - 400 mcg/dL [facility] Transferrin saturation 9(L) 20 - 50 % [facility] Blood 08/14/2024 8:44 PM CDT 08/14/2024 9:32 PM CDT Valerie Cooper MD PhD LAB BLOOD ORDERABLES Final Result Performing Organization Address [facility] Co de Phone Number [facility] [place] [address] * (ABNORMAL) CBC with auto differential (08/14/2024 8:44 PM CDT) [facility] WBC 12.03(H) 3.80 - 9.90 K/cumm Hgb 7.3(L) 11.9 - 15.5 g/dL [facility] Hct 22.3(L) 35.6 - 45.5 % [facility] Plt 276 150 - 400 K/cumm [facility] MPV 9.9 9.1 - 12.3 fL [facility] RBC 2.59(L) 3.90 - 5.20 M/cumm [facility] MCV 86.1 81.3 - 96.4 fL [facility] MCH 28.2 27.1 - 33.3 pg [facility] MCHC 32.7 32.3 - 35.7 g/dL [facility] RDW CV 17.6(H) 11.1 - 14.9 % [facility] RDW SD 55.2(H) 35.7 - 48.1 fL [facility] NRBC abs 0.00 0.00 - 0.01 K/cumm [facility] Blood 08/14/2024 8:44 PM CDT 08/14/2024 9:30 PM CDT Valerie Cooper MD PhD LAB BLOOD ORDERABLES Final Result Performing Organization Address [facility] Co de Phone Number [facility] [place] [address] * (ABNORMAL) Reticulocyte Count (08/14/2024 8:44 PM CDT) [facility] Retics, absolute 63 20 - 87 K/cumm Retics 2.4 0.4 - 2.9 % [facility] Reticulocyte Hgb 24.0(L) 30.5 - 38.0 pg [facility] Blood 08/14/2024 8:44 PM CDT 08/14/2024 9:30 PM CDT Valerie Cooper MD PhD LAB BLOOD ORDERABLES Final Result Performing Organization Address [facility] [place] [address] * Type and screen (08/14/2024 8:44 PM CDT) [facility] ABO Rh A Positive Marybeth, indirect Negative [facility] Blood 08/14/2024 8:44 PM CDT 08/14/2024 10:10 PM CDT Narrative [facility] - 08/14/2024 11:14 PM CDT Has the patient had Daratumumab or Isatuximab in the past 6 months?->Unknown Royal Weiss MD LAB BLOOD BANK TEST ORDER MARTINEZ Final Result Performing Organization Address [facility] [place] [address] * (ABNORMAL) Comprehensive metabolic panel (08/14/2024 8:44 PM CDT) Sodium 132(L) 135 - 145 mmol/L Potassium, pl 6.4(C) 3.3 - 4.9 mmol/L [facility] Chloride 96(L) 97 - 110 mmol/L [facility] CO2 25 22 - 32 mmol/L [facility] Anion gap 11 2 - 15 mmol/L [facility] BUN 50(H) 6 - 25 mg/dL [facility] Creatinine 6.62(H) 0.60 - 1.10 mg/dL [facility] Glucose 97 70 - 199 mg/dL [facility] Comment: Interpretive Data Fasting glucose >/= 126 mg/dl is diagnostic for diabetes. Fasting is defined as no caloric intake for at least 8 hours. Fasting glucose between 100 mg/dl to 125 mg/dl is diagnostic of prediabetes. In a patient with classic symptoms of hyperglycemia or hyperglycemic crisis, a random glucose >/= 200 mg/dl is diagnostic for diabetes. In the absence of unequivocal hyperglycemia, results should be confirmed by repeat testing. The classification and Diagnosis of Diabetes Diabetes Care 2021; 46: S19-S40. Current interpretive data was last revised 2022. Calcium 7.8(L) 8.5 - 10.3 mg/dL [facility] Bilirubin, total 0.4 0.1 - 1.2 mg/dL [facility] Protein, pl 7.7 6.5 - 8.5 g/dL [facility] Albumin 1.8(L) 3.5 - 5.0 g/dL [facility] Alk phos 97 40 - 130 Units/L [facility] ALT 5(L) 7 - 45 Units/L [facility] AST 18 10 - 45 Units/L [facility] Blood 08/14/2024 8:44 PM CDT 08/14/2024 9:32 PM CDT us Vaelrie Cooper MD PhD LAB BLOOD ORDERABLES Final Result [facility] Department [place] [address] * Transfuse RBC (08/14/2024 4:44 AM CDT) Blood Royal Gillespie MD BLOOD TRANSFUSION ORDERAB LES Final Result Performing Organization Address [facility] Co de Phone Number [facility] Department [place] [address] * Prepare RBC: 1 Units (08/13/2024 11:44 PM CDT) Pathologist [facility] Product code [id number] Unit Number [id number] [facility] Product Blood Type APOS [facility] Dispense Status PRESUMED TRANSFUSED [facility] Blood 08/13/2024 11:4 4 PM CDT 08/13/2024 11:44 PM CDT Narrative [facility] - 08/14/2024 4:00 PM CDT Are special requirements needed? (All products are leukoreduced and CMV- safe)- >No Date required:-[id number] LRRBC # of [id number] Reasons:-Hgb <7 g/dL} Royal Gillespie MD BLOOD BANK PRODUCT ORDERA BLES Final Result Performing Organization Address [facility] Co de Phone Number [facility] Department [place] [address] * (ABNORMAL) eGFR (08/13/2024 10:34 PM CDT) eGFR 11(L) >=60 mL/min/1. 73 m2 Comment: Interpretive Data Reference Interval Normal >/= 90 mL/min/1.73m2 Mildly decreased* 60 - 89 mL/min/1.73m2 Mildly to moderately decreased 45 - 59 mL/min/1.73m2 Moderately to severely decreased 30 - 44 mL/min/1.73m2 Severely decreased 15 - 29 mL/min/1.73m2 Kidney Failure < 15 mL/min/1.73m2 *Relative to young adult level Estimated glomerular filtration rate is determined by the 2020 CKD-EPI equation recommended by the National Kidney Foundation (A Unifying Approach to GFR Estimation: Recommendations of the NKF-ASK Task Force on Reassessing the Inclusion of Race in Diagnosing Kidney Disease, JASN 2020). The CKD-EPI equation should not be used for patients with unstable renal function and has not been validated in children and those over 70. Current interpretive data was last reviewed 2021. Blood 08/13/2024 10:3 4 PM CDT 08/13/2024 11:05 PM CDT us Royal Gillespie MD LAB BLOOD ORDERABLES Florinda hanson Result [facility] Department [place] [address] * (ABNORMAL) Differential, auto (08/13/2024 10:34 PM CDT) Neutrophil abs 9.53(H) 1.50 - 6.50 K/cumm Imm gran abs 0.22(H) 0.00 - 0.10 K/cumm [facility] Lymphocyte abs 1.86 0.80 - 3.30 K/cumm [facility] Monocyte abs 0.79 0.20 - 0.80 K/cumm [facility] Eosinophil abs 0.11 0.00 - 0.50 K/cumm [facility] Basophil abs 0.06 0.00 - 0.10 K/cumm [facility] Neutrophil pct 75.7 % [facility] Comment: Interpretive Data Percent cell count reference ranges are not reported, since discordance with absolute values may lead to misinterpretation of CBC data. Current Interpretive Data was last revised on 2017. Imm gran pct 1.8 % [facility] Comment: Interpretive Data Percent cell count reference ranges are not reported, since discordance with absolute values may lead to misinterpretation of CBC data. Current Interpretive Data was last revised on 2017. Lymphocyte pct 14.8 % [facility] Comment: Interpretive Data Percent cell count reference ranges are not reported, since discordance with absolute values may lead to misinterpretation of CBC data. Current Interpretive Data was last revised on 2017. Monocyte pct 6.3 % [facility] Comment: Interpretive Data Percent cell count reference ranges are not reported, since discordance with absolute values may lead to misinterpretation of CBC data. Current Interpretive Data was last revised on 2017. Eosinophil pct 0.9 % [facility] Comment: Interpretive Data Percent cell count reference ranges are not reported, since discordance with absolute values may lead to misinterpretation of CBC data. Current Interpretive Data was last revised on 2017. Basophil pct 0.5 % [facility] Comment: Interpretive Data Percent cell count reference ranges are not reported, since discordance with absolute values may lead to misinterpretation of CBC data. Current Interpretive Data was last revised on 2017. Blood 08/13/2024 10:3 4 PM CDT 08/13/2024 11:06 PM CDT Royal Gillespie MD LAB BLOOD ORDERABLES Florinda l Result Performing Organization Address [facility]/ZIP Co de Phone Number [facility] Department [place] [address] * (ABNORMAL) Calcium, ionized (08/13/2024 10:34 PM CDT) Pathologist [facility] Calcium, Ionized 4.39(L) 4.50 - 5.10 mg/dL Blood 08/13/2024 10:3 4 PM CDT 08/13/2024 11:00 PM CDT Royal Gillespie MD LAB BLOOD ORDERABLES Florinda l Result [facility] Department [place] [address] * (ABNORMAL) CBC with auto differential (08/13/2024 10:34 PM CDT) Pathologist [facility] WBC 12.57(H) 3.80 - 9.90 K/cumm Hgb 6.9(L) 11.9 - 15.5 g/dL [facility] Hct 22.0(L) 35.6 - 45.5 % [facility] Plt 301 150 - 400 K/cumm [facility] MPV 9.5 9.1 - 12.3 fL [facility] RBC 2.60(L) 3.90 - 5.20 M/cumm [facility] MCV 84.6 81.3 - 96.4 fL [facility] MCH 26.5(L) 27.1 - 33.3 pg [facility] MCHC 31.4(L) 32.3 - 35.7 g/dL [facility] RDW CV 18.4(H) 11.1 - 14.9 % [facility] RDW SD 56.0(H) 35.7 - 48.1 fL [facility] NRBC abs 0.00 0.00 - 0.01 K/cumm [facility] Blood 08/13/2024 10:3 4 PM CDT 08/13/2024 11:06 PM CDT Royal Gillespie MD LAB BLOOD ORDERABLES Florinda l Result Performing Organization Address [facility]/ZIP Co de Phone Number [facility] Department of [employer] [place], [place] [id number] * (ABNORMAL) Phosphorus (08/13/2024 10:34 PM CDT) [facility] Phosphorus, pl 7.2(H) 2.3 - 4.5 mg/dL Blood 08/13/2024 10:3 4 PM CDT 08/13/2024 11:05 PM CDT Royal Gillespie MD LAB BLOOD ORDERABLES Florinda l Result [facility] [place] [address] * (ABNORMAL) Basic metabolic panel (08/13/2024 10:34 PM CDT) [facility] Sodium 131(L) 135 - 145 mmol/L Potassium, pl 5.4(H) 3.3 - 4.9 mmol/L [facility] Chloride 97 97 - 110 mmol/L [facility] CO2 26 22 - 32 mmol/L [facility] Anion gap 8 2 - 15 mmol/L [facility] BUN 38(H) 6 - 25 mg/dL [facility] Creatinine 5.17(H) 0.60 - 1.10 mg/dL [facility] Glucose 125 70 - 199 mg/dL [facility] Comment: Interpretive Data Fasting glucose >/= 126 mg/dl is diagnostic for diabetes. Fasting is defined as no caloric intake for at least 8 hours. Fasting glucose between 100 mg/dl to 125 mg/dl is diagnostic of prediabetes. In a patient with classic symptoms of hyperglycemia or hyperglycemic crisis, a random glucose >/= 200 mg/dl is diagnostic for diabetes. In the absence of unequivocal hyperglycemia, results should be confirmed by repeat testing. The classification and Diagnosis of Diabetes Diabetes Care 2021; 46: S19-S40. Current interpretive data was last revised 2022. Calcium 7.8(L) 8.5 - 10.3 mg/dL [facility] Blood 08/13/2024 10:3 4 PM CDT 08/13/2024 11:05 PM CDT Royal Gillespie MD LAB BLOOD ORDERABLES Florinda l Result Performing Organization Address City/[facility]/ZIP Co de Phone Number [facility] Department [place] [address] * POCT glucose (08/13/2024 7:51 PM CDT) [facility] Glucose, POC 134 70 - 199 mg/dL Blood 08/13/2024 7:51 PM CDT 08/13/2024 7:51 PM CDT Royal Gillespie MD LAB POCT ORDERABLES - DEV ICE Final Result Performing Organization Address [facility]/ZIP Co de Phone Number [facility] Department [place] [address] * (ABNORMAL) Pre Dialysis BUN (08/13/2024 8:13 AM CDT) BUN Pre 36(H) 6 - 25 mg/dL Blood 08/13/2024 8:13 AM CDT 08/13/2024 8:47 AM CDT us Jaya Cuenca MD LAB BLOOD ORDERABLES F inal Result Performing Organization Address [facility] Co de Phone Number [facility] Department [place] [address] * (ABNORMAL) eGFR (08/13/2024 5:16 AM CDT) eGFR 12(L) >=60 mL/min/1. 73 m2 Comment: Interpretive Data Reference Interval Normal >/= 90 mL/min/1.73m2 Mildly decreased* 60 - 89 mL/min/1.73m2 Mildly to moderately decreased 45 - 59 mL/min/1.73m2 Moderately to severely decreased 30 - 44 mL/min/1.73m2 Severely decreased 15 - 29 mL/min/1.73m2 Kidney Failure < 15 mL/min/1.73m2 *Relative to young adult level Estimated glomerular filtration rate is determined by the 2020 CKD-EPI equation recommended by the National Kidney Foundation (A Unifying Approach to GFR Estimation: Recommendations of the NKF-ASK Task Force on Reassessing the Inclusion of Race in Diagnosing Kidney Disease, JASN 2020). The CKD-EPI equation should not be used for patients with unstable renal function and has not been validated in children and those over 70. Current interpretive data was last reviewed 2021. Blood 08/13/2024 5:16 AM CDT 08/13/2024 7:38 AM CDT us Royal Weiss MD LAB BLOOD ORDERABLES Florinda l Result Performing Organization Address City/[facility]/ZIP Co de Phone Number ARAMIS [facility] Department [place] [address] * (ABNORMAL) Differential, auto (08/13/2024 5:16 AM CDT) Pathologist [facility] Neutrophil abs 9.48(H) 1.50 - 6.50 K/cumm Imm gran abs 0.23(H) 0.00 - 0.10 K/cumm [facility] Lymphocyte abs 1.84 0.80 - 3.30 K/cumm [facility] Monocyte abs 0.91(H) 0.20 - 0.80 K/cumm [facility] Eosinophil abs 0.13 0.00 - 0.50 K/cumm [facility] Basophil abs 0.06 0.00 - 0.10 K/cumm [facility] Neutrophil pct 75.0 % [facility] Comment: Interpretive Data Percent cell count reference ranges are not reported, since discordance with absolute values may lead to misinterpretation of CBC data. Current Interpretive Data was last revised on 2017. Imm gran pct 1.8 % [facility] Comment: Interpretive Data Percent cell count reference ranges are not reported, since discordance with absolute values may lead to misinterpretation of CBC data. Current Interpretive Data was last revised on 2017. Lymphocyte pct 14.5 % [facility] Comment: Interpretive Data Percent cell count reference ranges are not reported, since discordance with absolute values may lead to misinterpretation of CBC data. Current Interpretive Data was last revised on 2017. Monocyte pct 7.2 % [facility] Comment: Interpretive Data Percent cell count reference ranges are not reported, since discordance with absolute values may lead to misinterpretation of CBC data. Current Interpretive Data was last revised on 2017. Eosinophil pct 1.0 % [facility] Comment: Interpretive Data Percent cell count reference ranges are not reported, since discordance with absolute values may lead to misinterpretation of CBC data. Current Interpretive Data was last revised on 2017. Basophil pct 0.5 % [facility] Comment: Interpretive Data Percent cell count reference ranges are not reported, since discordance with absolute values may lead to misinterpretation of CBC data. Current Interpretive Data was last revised on 2017. Blood 08/13/2024 5:16 AM CDT 08/13/2024 7:38 AM CDT us Royal Weiss MD LAB BLOOD ORDERABLES Florinda l Result [facility] [place] [address] * (ABNORMAL) Calcium, ionized (08/13/2024 5:16 AM CDT) [facility] Calcium, Ionized 4.13(L) 4.50 - 5.10 mg/dL Blood 08/13/2024 5:16 AM CDT 08/13/2024 7:34 AM CDT Royal Weiss MD LAB BLOOD ORDERABLES Florinda l Result Performing Organization Address [facility] Co de Phone Number [facility] [place] [address] * (ABNORMAL) CBC with auto differential (08/13/2024 5:16 AM CDT) [facility] WBC 12.65(H) 3.80 - 9.90 K/cumm Hgb 7.3(L) 11.9 - 15.5 g/dL [facility] Hct 22.7(L) 35.6 - 45.5 % [facility] Plt 265 150 - 400 K/cumm [facility] MPV 9.8 9.1 - 12.3 fL [facility] RBC 2.65(L) 3.90 - 5.20 M/cumm [facility] MCV 85.7 81.3 - 96.4 fL [facility] MCH 27.5 27.1 - 33.3 pg [facility] MCHC 32.2(L) 32.3 - 35.7 g/dL [facility] RDW CV 18.2(H) 11.1 - 14.9 % [facility] RDW SD 56.4(H) 35.7 - 48.1 fL [facility] NRBC abs 0.00 0.00 - 0.01 K/cumm [facility] Blood 08/13/2024 5:16 AM CDT 08/13/2024 7:38 AM CDT Royal Weiss MD LAB BLOOD ORDERABLES Florinda l Result Performing Organization Address [facility] Co de Phone Number [facility] [place] [address] * (ABNORMAL) Phosphorus (08/13/2024 5:16 AM CDT) Pathologist [facility] Phosphorus, pl 6.6(H) 2.3 - 4.5 mg/dL Blood 08/13/2024 5:16 AM CDT 08/13/2024 7:38 AM CDT Royal Weiss MD LAB BLOOD ORDERABLES Florinda l Result Performing Organization Address [facility] Co de Phone Number [facility] [place] [address] * Magnesium (08/13/2024 5:16 AM CDT) [facility] Magnesium 1.8 1.4 - 2.5 mg/dL Blood 08/13/2024 5:16 AM CDT 08/13/2024 7:38 AM CDT Royal Weiss MD LAB BLOOD ORDERABLES Florinda l Result Performing Organization Address [facility] [place] [address] * (ABNORMAL) Basic metabolic panel (08/13/2024 5:16 AM CDT) [facility] Sodium 132(L) 135 - 145 mmol/L Potassium, pl 5.0(H) 3.3 - 4.9 mmol/L [facility] Chloride 98 97 - 110 mmol/L [facility] CO2 23 22 - 32 mmol/L [facility] Anion gap 11 2 - 15 mmol/L [facility] BUN 37(H) 6 - 25 mg/dL [facility] Creatinine 4.78(H) 0.60 - 1.10 mg/dL [facility] Glucose 105 70 - 199 mg/dL [facility] Comment: Interpretive Data Fasting glucose >/= 126 mg/dl is diagnostic for diabetes. Fasting is defined as no caloric intake for at least 8 hours. Fasting glucose between 100 mg/dl to 125 mg/dl is diagnostic of prediabetes. In a patient with classic symptoms of hyperglycemia or hyperglycemic crisis, a random glucose >/= 200 mg/dl is diagnostic for diabetes. In the absence of unequivocal hyperglycemia, results should be confirmed by repeat testing. The classification and Diagnosis of Diabetes Diabetes Care 2021; 46: S19-S40. Current interpretive data was last revised 2022. Calcium 7.6(L) 8.5 - 10.3 mg/dL [facility] Blood 08/13/2024 5:16 AM CDT 08/13/2024 7:38 AM CDT Royal Weiss MD LAB BLOOD ORDERABLES Florinda l Result Performing Organization Address City/[facility] Co de Phone Number [facility] [employer] [place] [address] * (ABNORMAL) Hemoglobin and hematocrit (08/12/2024 12:42 PM CDT) [facility] Hgb 8.0(L) 11.9 - 15.5 g/dL Hct 24.3(L) 35.6 - 45.5 % [facility] Blood 08/12/2024 12:4 2 PM CDT 08/12/2024 1:02 PM CDT Narrative [facility] - 08/12/2024 1:10 PM CDT 1 hour after the red blood cell transfusion is complete. Royal Weiss MD LAB BLOOD ORDERABLES Florinda l Result Performing Organization Address City/[facility]/ZIP Co de Phone Number [facility] Department [place] [address] * Transfuse RBC (08/12/2024 11:17 AM CDT) Blood Hina Poon MD BLOOD TRANSFUSION ORDERABLES Edited Result - Final Performing Organization Address [facility] Co de Phone Number [facility] Department [place] [address] * Prepare RBC: 1 Units (08/12/2024 7:10 AM CDT) Pathologist [facility] Product code [id number] Unit Number [id number] Y [facility] Product Blood Type APOS [facility] Dispense Status PRESUMED TRANSFUSED [facility] Blood 08/12/2024 7:10 AM CDT 08/12/2024 7:09 AM CDT Narrative [facility] - 08/12/2024 8:00 PM CDT Are special requirements needed? (All products are leukoreduced and CMV- safe)- >No Date required:-[id number] LRRBC # of [id number] Reasons:-Hgb <7 g/dL} Hina Poon MD BLOOD BANK PRODUCT ORDERABLE S Final Result Performing Organization Address [facility] Co de Phone Number [facility] Department [place] [address] * (ABNORMAL) eGFR (08/12/2024 5:58 AM CDT) eGFR 17(L) >=60 mL/min/1. 73 m2 Comment: Interpretive Data Reference Interval Normal >/= 90 mL/min/1.73m2 Mildly decreased* 60 - 89 mL/min/1.73m2 Mildly to moderately decreased 45 - 59 mL/min/1.73m2 Moderately to severely decreased 30 - 44 mL/min/1.73m2 Severely decreased 15 - 29 mL/min/1.73m2 Kidney Failure < 15 mL/min/1.73m2 *Relative to young adult level Estimated glomerular filtration rate is determined by the 2020 CKD-EPI equation recommended by the National Kidney Foundation (A Unifying Approach to GFR Estimation: Recommendations of the NKF-ASK Task Force on Reassessing the Inclusion of Race in Diagnosing Kidney Disease, JASN 202). The CKD-EPI equation should not be used for patients with unstable renal function and has not been validated in children and those over 70. Current interpretive data was last reviewed 2021. Blood 08/12/2024 5:58 AM CDT 08/12/2024 6:23 AM CDT us Royal Weiss MD LAB BLOOD ORDERABLES Florinda hanson Result [facility] Department [place] [address] * (ABNORMAL) Differential, auto (08/12/2024 5:58 AM CDT) Neutrophil abs 8.64(H) 1.50 - 6.50 K/cumm Imm gran abs 0.19(H) 0.00 - 0.10 K/cumm [facility] Lymphocyte abs 1.75 0.80 - 3.30 K/cumm [facility] Monocyte abs 0.79 0.20 - 0.80 K/cumm [facility] Eosinophil abs 0.10 0.00 - 0.50 K/cumm [facility] Basophil abs 0.06 0.00 - 0.10 K/cumm [facility] Neutrophil pct 74.9 % [facility] Comment: Interpretive Data Percent cell count reference ranges are not reported, since discordance with absolute values may lead to misinterpretation of CBC data. Current Interpretive Data was last revised on 2017. Imm gran pct 1.6 % [facility] Comment: Interpretive Data Percent cell count reference ranges are not reported, since discordance with absolute values may lead to misinterpretation of CBC data. Current Interpretive Data was last revised on 2017. Lymphocyte pct 15.2 % [facility] Comment: Interpretive Data Percent cell count reference ranges are not reported, since discordance with absolute values may lead to misinterpretation of CBC data. Current Interpretive Data was last revised on 2017. Monocyte pct 6.9 % [facility] Comment: Interpretive Data Percent cell count reference ranges are not reported, since discordance with absolute values may lead to misinterpretation of CBC data. Current Interpretive Data was last revised on 2017. Eosinophil pct 0.9 % [facility] Comment: Interpretive Data Percent cell count reference ranges are not reported, since discordance with absolute values may lead to misinterpretation of CBC data. Current Interpretive Data was last revised on 2017. Basophil pct 0.5 % [facility] Comment: Interpretive Data Percent cell count reference ranges are not reported, since discordance with absolute values may lead to misinterpretation of CBC data. Current Interpretive Data was last revised on 2017. Blood 08/12/2024 5:58 AM CDT 08/12/2024 6:23 AM CDT Royal Weiss MD LAB BLOOD ORDERABLES Florinda l Result Performing Organization Address City/[facility]/ZIP Co de Phone Number [facility] Department [place] [address] * (ABNORMAL) Calcium, ionized (08/12/2024 5:58 AM CDT) Pathologist [facility] Calcium, Ionized 4.43(L) 4.50 - 5.10 mg/dL Blood 08/12/2024 5:58 AM CDT 08/12/2024 6:08 AM CDT Royal Weiss MD LAB BLOOD ORDERABLES Florinda l Result [facility] [place] [address] * (ABNORMAL) CBC with auto differential (08/12/2024 5:58 AM CDT) WBC 11.53(H) 3.80 - 9.90 K/cumm Hgb 6.6(L) 11.9 - 15.5 g/dL [facility] Hct 20.0(L) 35.6 - 45.5 % [facility] Plt 321 150 - 400 K/cumm [facility] MPV 9.5 9.1 - 12.3 fL [facility] RBC 2.47(L) 3.90 - 5.20 M/cumm [facility] MCV 81.0(L) 81.3 - 96.4 fL [facility] MCH 26.7(L) 27.1 - 33.3 pg [facility] MCHC 33.0 32.3 - 35.7 g/dL [facility] RDW CV 17.8(H) 11.1 - 14.9 % [facility] RDW SD 51.8(H) 35.7 - 48.1 fL [facility] NRBC abs 0.00 0.00 - 0.01 K/cumm [facility] Blood 08/12/2024 5:58 AM CDT 08/12/2024 6:23 AM CDT Royal Weiss MD LAB BLOOD ORDERABLES Florinda l Result [facility] Department [place] [address] * (ABNORMAL) Phosphorus (08/12/2024 5:58 AM CDT) Phosphorus, pl 5.2(H) 2.3 - 4.5 mg/dL Blood 08/12/2024 5:58 AM CDT 08/12/2024 6:23 AM CDT Royal Weiss MD LAB BLOOD ORDERABLES Florinda l Result [facility] [place] [address] * Magnesium (08/12/2024 5:58 AM CDT) Magnesium 1.9 1.4 - 2.5 mg/dL Blood 08/12/2024 5:58 AM CDT 08/12/2024 6:23 AM CDT Royal Weiss MD LAB BLOOD ORDERABLES Florinda l Result [facility] Department [place] [address] * (ABNORMAL) Basic metabolic panel (08/12/2024 5:58 AM CDT) [facility] Sodium 137 135 - 145 mmol/L Potassium, pl 4.1 3.3 - 4.9 mmol/L [facility] Chloride 103 97 - 110 mmol/L [facility] CO2 27 22 - 32 mmol/L [facility] Anion gap 7 2 - 15 mmol/L [facility] BUN 32(H) 6 - 25 mg/dL [facility] Creatinine 3.59(H) 0.60 - 1.10 mg/dL [facility] Glucose 112 70 - 199 mg/dL [facility] Comment: Interpretive Data Fasting glucose >/= 126 mg/dl is diagnostic for diabetes. Fasting is defined as no caloric intake for at least 8 hours. Fasting glucose between 100 mg/dl to 125 mg/dl is diagnostic of prediabetes. In a patient with classic symptoms of hyperglycemia or hyperglycemic crisis, a random glucose >/= 200 mg/dl is diagnostic for diabetes. In the absence of unequivocal hyperglycemia, results should be confirmed by repeat testing. The classification and Diagnosis of Diabetes Diabetes Care 2021; 46: S19-S40. Current interpretive data was last revised 2022. Calcium 7.5(L) 8.5 - 10.3 mg/dL [facility] Blood 08/12/2024 5:58 AM CDT 08/12/2024 6:23 AM CDT Royal Weiss MD LAB BLOOD ORDERABLES Florinda l Result Performing Organization Address [facility]/ZIP Co de Phone Number [facility] Department [place] [address] * (ABNORMAL) Hemoglobin and hematocrit (08/11/2024 6:42 PM CDT) Pathologist [facility] Hgb 7.6(L) 11.9 - 15.5 g/dL Hct 22.6(L) 35.6 - 45.5 % [facility] Blood 08/11/2024 6:42 PM CDT 08/11/2024 6:52 PM CDT Narrative [facility] - 08/11/2024 6:58 PM CDT 1 hour after the red blood cell transfusion is complete. Royal Weiss MD LAB BLOOD ORDERABLES Florinda l Result Performing Organization Address City/[facility]/ZIP Co de Phone Number [facility] [place] [address] * (ABNORMAL) Creatine kinase (CK), total (08/11/2024 6:42 PM CDT) [facility] CK <20(L) 30 - 200 Units/L Blood 08/11/2024 6:42 PM CDT 08/11/2024 6:52 PM CDT Royal Weiss MD LAB BLOOD ORDERABLES Florinda l Result Performing Organization Address City/[facility]/ZIP Co de Phone Number [facility] Department [place] [address] * Transfuse RBC (08/11/2024 6:24 PM CDT) Blood Royal Weiss MD BLOOD TRANSFUSION ORDERAB LES Edited Result - Final Performing Organization Address City/[facility]/ZIP Co de Phone Number [facility] [place] [address] * Type and screen (08/11/2024 8:14 AM CDT) Pathologist [facility] ABO Rh A Positive Marybeth, indirect Negative [facility] Blood 08/11/2024 8:14 AM CDT 08/11/2024 8:32 AM CDT Narrative [facility] - 08/11/2024 9:19 AM CDT Has the patient had Daratumumab or Isatuximab in the past 6 months?->Unknown Royal Weiss MD LAB BLOOD BANK TEST ORDER MARTINEZ Final Result Performing Organization Address [facility] Co de Phone Number [facility] Department [place] [address] * Prepare RBC: 1 Units (08/11/2024 7:11 AM CDT) Pathologist [facility] Product code [id number] Unit Number [id number] O [facility] Product Blood Type APOS [facility] Dispense Status PRESUMED TRANSFUSED [facility] Blood 08/11/2024 7:11 AM CDT 08/11/2024 7:11 AM CDT Narrative [facility] - 08/12/2024 12:56 AM CDT Are special requirements needed? (All products are leukoreduced and CMV- safe)- >No Date required:-[id number] LRRBC # of [id number] Reasons:-Hgb <7 g/dL} Royal Weiss MD BLOOD BANK PRODUCT ORDERA BLES Final Result Performing Organization Address [facility] Co de Phone Number [facility] Department [place] [address] * (ABNORMAL) eGFR (08/11/2024 6:14 AM CDT) [facility] eGFR 14(L) >=60 mL/min/1. 73 m2 Comment: Interpretive Data Reference Interval Normal >/= 90 mL/min/1.73m2 Mildly decreased* 60 - 89 mL/min/1.73m2 Mildly to moderately decreased 45 - 59 mL/min/1.73m2 Moderately to severely decreased 30 - 44 mL/min/1.73m2 Severely decreased 15 - 29 mL/min/1.73m2 Kidney Failure < 15 mL/min/1.73m2 *Relative to young adult level Estimated glomerular filtration rate is determined by the 2020 CKD-EPI equation recommended by the National Kidney Foundation (A Unifying Approach to GFR Estimation: Recommendations of the NKF-ASK Task Force on Reassessing the Inclusion of Race in Diagnosing Kidney Disease, JASN 2020). The CKD-EPI equation should not be used for patients with unstable renal function and has not been validated in children and those over 70. Current interpretive data was last reviewed 2021. Blood 08/11/2024 6:14 AM CDT 08/11/2024 6:41 AM CDT us Royal Weiss MD LAB BLOOD ORDERABLES Florinda hanson Result [facility] Department [place] [address] * (ABNORMAL) Differential, auto (08/11/2024 6:14 AM CDT) Pathologist [facility] Neutrophil abs 9.18(H) 1.50 - 6.50 K/cumm Imm gran abs 0.20(H) 0.00 - 0.10 K/cumm [facility] Lymphocyte abs 1.79 0.80 - 3.30 K/cumm [facility] Monocyte abs 0.93(H) 0.20 - 0.80 K/cumm [facility] Eosinophil abs 0.09 0.00 - 0.50 K/cumm [employer] [employer] [facility] [facility] Basophil abs 0.04 0.00 - 0.10 K/cumm [employer] [facility] [facility] [employer] [facility] [facility] Neutrophil pct 75.2 % [facility] Comment: Interpretive Data Percent cell count reference ranges are not reported, since discordance with absolute values may lead to misinterpretation of CBC data. Current Interpretive Data was last revised on 2017. Imm gran pct 1.6 % [facility] Comment: Interpretive Data Percent cell count reference ranges are not reported, since discordance with absolute values may lead to misinterpretation of CBC data. Current Interpretive Data was last revised on 2017. Lymphocyte pct 14.6 % [facility] Comment: Interpretive Data Percent cell count reference ranges are not reported, since discordance with absolute values may lead to misinterpretation of CBC data. Current Interpretive Data was last revised on 2017. Monocyte pct 7.6 % [facility] Comment: Interpretive Data Percent cell count reference ranges are not reported, since discordance with absolute values may lead to misinterpretation of CBC data. Current Interpretive Data was last revised on 2017. Eosinophil pct 0.7 % [facility] Comment: Interpretive Data Percent cell count reference ranges are not reported, since discordance with absolute values may lead to misinterpretation of CBC data. Current Interpretive Data was last revised on 2017. Basophil pct 0.3 % [facility] Comment: Interpretive Data Percent cell count reference ranges are not reported, since discordance with absolute values may lead to misinterpretation of CBC data. Current Interpretive Data was last revised on 2017. Blood 08/11/2024 6:14 AM CDT 08/11/2024 6:44 AM CDT Royal Weiss MD LAB BLOOD ORDERABLES Florinda l Result Performing Organization Address City/[facility]/ZIP Co de Phone Number [facility] Department [place] [address] * Calcium, ionized (08/11/2024 6:14 AM CDT) [facility] Calcium, Ionized 4.54 4.50 - 5.10 mg/dL Blood 08/11/2024 6:14 AM CDT 08/11/2024 6:29 AM CDT Royal Weiss MD LAB BLOOD ORDERABLES Florinda l Result [facility] Department [place] [address] * (ABNORMAL) CBC with auto differential (08/11/2024 6:14 AM CDT) Pathologist [facility] WBC 12.23(H) 3.80 - 9.90 K/cumm Hgb 6.2(C) 11.9 - 15.5 g/dL [facility] Comment:This result has been called to Emilie Bhatt RN by [email or web address] on 08/11/2024 07:02:18, and has been read back. Hct 18.6(L) 35.6 - 45.5 % [facility] Plt 373 150 - 400 K/cumm [facility] MPV 9.9 9.1 - 12.3 fL [facility] RBC 2.35(L) 3.90 - 5.20 M/cumm [facility] MCV 79.1(L) 81.3 - 96.4 fL [facility] MCH 26.4(L) 27.1 - 33.3 pg [facility] [facility] MCHC 33.3 32.3 - 35.7 g/dL [facility] RDW CV 18.5(H) 11.1 - 14.9 % [facility] RDW SD 51.9(H) 35.7 - 48.1 fL [facility] NRBC abs 0.00 0.00 - 0.01 K/cumm [facility] Blood 08/11/2024 6:14 AM CDT 08/11/2024 6:44 AM CDT us Royal Weiss MD LAB BLOOD ORDERABLES Florinda l Result Performing Organization Address City/[facility]/ZIP Co de Phone Number [facility] Department [place] [address] * (ABNORMAL) Phosphorus (08/11/2024 6:14 AM CDT) [facility] Phosphorus, pl 5.3(H) 2.3 - 4.5 mg/dL Blood 08/11/2024 6:14 AM CDT 08/11/2024 6:41 AM CDT Royal Weiss MD LAB BLOOD ORDERABLES Florinda l Result [facility] Department [place] [address] * Magnesium (08/11/2024 6:14 AM CDT) [facility] Magnesium 1.9 1.4 - 2.5 mg/dL Blood 08/11/2024 6:14 AM CDT 08/11/2024 6:41 AM CDT Royal Weiss MD LAB BLOOD ORDERABLES Florinda l Result [facility] [place] [address] * (ABNORMAL) Basic metabolic panel (08/11/2024 6:14 AM CDT) [facility] Sodium 134(L) 135 - 145 mmol/L Potassium, pl 4.2 3.3 - 4.9 mmol/L [facility] Chloride 101 97 - 110 mmol/L [facility] CO2 27 22 - 32 mmol/L [facility] Anion gap 6 2 - 15 mmol/L [facility] BUN 42(H) 6 - 25 mg/dL [facility] Creatinine 4.19(H) 0.60 - 1.10 mg/dL [facility] Glucose 95 70 - 199 mg/dL [facility] Comment: Interpretive Data Fasting glucose >/= 126 mg/dl is diagnostic for diabetes. Fasting is defined as no caloric intake for at least 8 hours. Fasting glucose between 100 mg/dl to 125 mg/dl is diagnostic of prediabetes. In a patient with classic symptoms of hyperglycemia or hyperglycemic crisis, a random glucose >/= 200 mg/dl is diagnostic for diabetes. In the absence of unequivocal hyperglycemia, results should be confirmed by repeat testing. The classification and Diagnosis of Diabetes Diabetes Care 202; 46: S19-S40. Current interpretive data was last revised 2022. Calcium 7.4(L) 8.5 - 10.3 mg/dL [facility] Blood 08/11/2024 6:14 AM CDT 08/11/2024 6:41 AM CDT Royal Weiss MD LAB BLOOD ORDERABLES Florinda l Result Performing Organization Address City[facility] Co de Phone Number [facility] Department [place] [address] * Infection Prevention Helen auris PCR, surveillance Axilla/Groin (08/10/2024 7:09 PM CDT) Helen auris DNA Not Detected Not Detected [facility] Comment: Interpretive Data Testing performed by [facility] using the Noa pramod 6800 Helen auris assay. This assay detects DNA from Helen auris using Real-Time PCR. This assay is laboratory developed and is not cleared by the [facility] Food and Drug Administration. The performance characteristics have been verified by the [facility]. Axilla/Groin 08/10/2024 7:09 PM CDT 08/10/2024 8:33 PM CDT Umang Phillips MD LAB MICROBIOLOGY - GENERAL ORDER MARTINEZ Final Result Performing Organization Address [facility] Co de Phone Number [facility] Department [place] [address] [facility] * (ABNORMAL) eGFR (08/10/2024 12:22 PM CDT) eGFR 12(L) >=60 mL/min/1. 73 m2 Comment: Interpretive Data Reference Interval Normal >/= 90 mL/min/1.73m2 Mildly decreased* 60 - 89 mL/min/1.73m2 Mildly to moderately decreased 45 - 59 mL/min/1.73m2 Moderately to severely decreased 30 - 44 mL/min/1.73m2 Severely decreased 15 - 29 mL/min/1.73m2 Kidney Failure < 15 mL/min/1.73m2 *Relative to young adult level Estimated glomerular filtration rate is determined by the 2020 CKD-EPI equation recommended by the National Kidney Foundation (A Unifying Approach to GFR Estimation: Recommendations of the NKF-ASK Task Force on Reassessing the Inclusion of Race in Diagnosing Kidney Disease, JASN 2020). The CKD-EPI equation should not be used for patients with unstable renal function and has not been validated in children and those over 70. Current interpretive data was last reviewed 2021. Blood 08/10/2024 12:2 2 PM CDT 08/10/2024 12:44 PM CDT us Royal Weiss MD LAB BLOOD ORDERABLES Florinda l Result [facility] Department [place] [address] * (ABNORMAL) Basic metabolic panel (08/10/2024 12:22 PM CDT) Sodium 132(L) 135 - 145 mmol/L Potassium, pl 4.8 3.3 - 4.9 mmol/L [facility] Chloride 101 97 - 110 mmol/L [facility] CO2 23 22 - 32 mmol/L [facility] Anion gap 8 2 - 15 mmol/L [facility] BUN 52(H) 6 - 25 mg/dL [facility] Creatinine 4.69(H) 0.60 - 1.10 mg/dL [facility] Glucose 84 70 - 199 mg/dL [facility] Comment: Interpretive Data Fasting glucose >/= 126 mg/dl is diagnostic for diabetes. Fasting is defined as no caloric intake for at least 8 hours. Fasting glucose between 100 mg/dl to 125 mg/dl is diagnostic of prediabetes. In a patient with classic symptoms of hyperglycemia or hyperglycemic crisis, a random glucose >/= 200 mg/dl is diagnostic for diabetes. In the absence of unequivocal hyperglycemia, results should be confirmed by repeat testing. The classification and Diagnosis of Diabetes Diabetes Care 2021; 46: S19-S40. Current interpretive data was last revised 2022. Calcium 7.8(L) 8.5 - 10.3 mg/dL [facility] Blood 08/10/2024 12:2 2 PM CDT 08/10/2024 12:44 PM CDT Royal Weiss MD LAB BLOOD ORDERABLES Florinda l Result Performing Organization Address City/[facility]/ZIP Co de Phone Number [facility] Department [place] [address] * (ABNORMAL) eGFR (08/10/2024 5:01 AM CDT) eGFR 10(L) >=60 mL/min/1. 73 m2 Comment: Interpretive Data Reference Interval Normal >/= 90 mL/min/1.73m2 Mildly decreased* 60 - 89 mL/min/1.73m2 Mildly to moderately decreased 45 - 59 mL/min/1.73m2 Moderately to severely decreased 30 - 44 mL/min/1.73m2 Severely decreased 15 - 29 mL/min/1.73m2 Kidney Failure < 15 mL/min/1.73m2 *Relative to young adult level Estimated glomerular filtration rate is determined by the 2020 CKD-EPI equation recommended by the National Kidney Foundation (A Unifying Approach to GFR Estimation: Recommendations of the NKF-ASK Task Force on Reassessing the Inclusion of Race in Diagnosing Kidney Disease, JASN 2020). The CKD-EPI equation should not be used for patients with unstable renal function and has not been validated in children and those over 70. Current interpretive data was last reviewed 2021. Blood 08/10/2024 5:01 AM CDT 08/10/2024 5:11 AM CDT Royal Weiss MD LAB BLOOD ORDERABLES Florinda l Result Performing Organization Address City/[facility]/ZIP Co de Phone Number ARAM[facility] Department [place] [address] * (ABNORMAL) Differential, auto (08/10/2024 5:01 AM CDT) Neutrophil abs 10.12(H) 1.50 - 6.50 K/cumm Imm gran abs 0.24(H) 0.00 - 0.10 K/cumm [facility] Lymphocyte abs 1.74 0.80 - 3.30 K/cumm [facility] Monocyte abs 0.99(H) 0.20 - 0.80 K/cumm [facility] Eosinophil abs 0.11 0.00 - 0.50 K/cumm [facility] Basophil abs 0.05 0.00 - 0.10 K/cumm [facility] Neutrophil pct 76.4 % [facility] Comment: Interpretive Data Percent cell count reference ranges are not reported, since discordance with absolute values may lead to misinterpretation of CBC data. Current Interpretive Data was last revised on 2017. Imm gran pct 1.8 % [facility] Comment: Interpretive Data Percent cell count reference ranges are not reported, since discordance with absolute values may lead to misinterpretation of CBC data. Current Interpretive Data was last revised on 2017. Lymphocyte pct 13.1 % [facility] Comment: Interpretive Data Percent cell count reference ranges are not reported, since discordance with absolute values may lead to misinterpretation of CBC data. Current Interpretive Data was last revised on 2017. Monocyte pct 7.5 % [facility] Comment: Interpretive Data Percent cell count reference ranges are not reported, since discordance with absolute values may lead to misinterpretation of CBC data. Current Interpretive Data was last revised on 2017. Eosinophil pct 0.8 % [facility] Comment: Interpretive Data Percent cell count reference ranges are not reported, since discordance with absolute values may lead to misinterpretation of CBC data. Current Interpretive Data was last revised on 2017. Basophil pct 0.4 % [facility] Comment: Interpretive Data Percent cell count reference ranges are not reported, since discordance with absolute values may lead to misinterpretation of CBC data. Current Interpretive Data was last revised on 2017. Blood 08/10/2024 5:01 AM CDT 08/10/2024 5:17 AM CDT us Royal Weiss MD LAB BLOOD ORDERABLES Florinda hanson Result [facility] Department [place] [address] * (ABNORMAL) Calcium, ionized (08/10/2024 5:01 AM CDT) [facility] Calcium, Ionized 4.20(L) 4.50 - 5.10 mg/dL Blood 08/10/2024 5:01 AM CDT 08/10/2024 5:11 AM CDT Royal Weiss MD LAB BLOOD ORDERABLES Florinda l Result Performing Organization Address City/[facility]/ZIP Co de Phone Number [facility] Department [place] [address] * (ABNORMAL) CBC with auto differential (08/10/2024 5:01 AM CDT) [facility] WBC 13.25(H) 3.80 - 9.90 K/cumm Hgb 7.1(L) 11.9 - 15.5 g/dL [facility] Hct 20.9(L) 35.6 - 45.5 % [facility] Plt 419(H) 150 - 400 K/cumm [facility] MPV 9.9 9.1 - 12.3 fL [facility] RBC 2.73(L) 3.90 - 5.20 M/cumm [facility] MCV 76.6(L) 81.3 - 96.4 fL [facility] MCH 26.0(L) 27.1 - 33.3 pg [facility] MCHC 34.0 32.3 - 35.7 g/dL [facility] RDW CV 17.8(H) 11.1 - 14.9 % [facility] RDW SD 49.2(H) 35.7 - 48.1 fL [facility] NRBC abs 0.00 0.00 - 0.01 K/cumm [facility] Blood 08/10/2024 5:01 AM CDT 08/10/2024 5:17 AM CDT Royal Weiss MD LAB BLOOD ORDERABLES Florinda l Result [facility] Department [place] [address] * (ABNORMAL) Phosphorus (08/10/2024 5:01 AM CDT) [facility] Phosphorus, pl 8.4(H) 2.3 - 4.5 mg/dL Blood 08/10/2024 5:01 AM CDT 08/10/2024 5:11 AM CDT Royal Weiss MD LAB BLOOD ORDERABLES Florinda l Result Performing Organization Address [facility] Co de Phone Number [facility] [place] [address] * Magnesium (08/10/2024 5:01 AM CDT) [facility] Magnesium 2.0 1.4 - 2.5 mg/dL Blood 08/10/2024 5:01 AM CDT 08/10/2024 5:11 AM CDT Royal Weiss MD LAB BLOOD ORDERABLES Florinda l Result Performing Organization Address [facility] Co de Phone Number [facility] Department [place] [address] * (ABNORMAL) Basic metabolic panel (08/10/2024 5:01 AM CDT) [facility] Sodium 132(L) 135 - 145 mmol/L Potassium, pl 5.1(H) 3.3 - 4.9 mmol/L [facility] Chloride 101 97 - 110 mmol/L [facility] CO2 20(L) 22 - 32 mmol/L [facility] Anion gap 11 2 - 15 mmol/L [facility] BUN 61(H) 6 - 25 mg/dL [facility] Creatinine 5.62(H) 0.60 - 1.10 mg/dL [facility] Glucose 92 70 - 199 mg/dL [facility] Comment: Interpretive Data Fasting glucose >/= 126 mg/dl is diagnostic for diabetes. Fasting is defined as no caloric intake for at least 8 hours. Fasting glucose between 100 mg/dl to 125 mg/dl is diagnostic of prediabetes. In a patient with classic symptoms of hyperglycemia or hyperglycemic crisis, a random glucose >/= 200 mg/dl is diagnostic for diabetes. In the absence of unequivocal hyperglycemia, results should be confirmed by repeat testing. The classification and Diagnosis of Diabetes Diabetes Care 2021; 46: S19-S40. Current interpretive data was last revised 2022. Calcium 7.3(L) 8.5 - 10.3 mg/dL [facility] Blood 08/10/2024 5:01 AM CDT 08/10/2024 5:11 AM CDT Royal Weiss MD LAB BLOOD ORDERABLES Florinda l Result Performing Organization Address City/[facility]/ZIP Co de Phone Number [facility] Department [place] [address] * POCT glucose (08/10/2024 3:35 AM CDT) Glucose, POC 110 70 - 199 mg/dL Blood 08/10/2024 3:35 AM CDT 08/10/2024 3:35 AM CDT oRyal Weiss MD LAB POCT ORDERABLES - DEV ICE Final Result Performing Organization Address City/[facility]/ZIP Co de Phone Number [facility] Department [place] [address] * Potassium (08/10/2024 3:35 AM CDT) Potassium, pl 4.5 3.3 - 4.9 mmol/L Blood 08/10/2024 3:35 AM CDT 08/10/2024 3:47 AM CDT Narrative [facility] PRUITT - 08/10/2024 4:11 AM CDT Provider to discontinue after two normal results. Royal Weiss MD LAB BLOOD ORDERABLES Florinda l Result Performing Organization Address [facility] de Phone Number [facility] [place] [address] * Potassium (08/10/2024 12:00 AM CDT) Potassium, pl 4.9 3.3 - 4.9 mmol/L Blood 08/10/2024 08/10/2024 12: 14 AM CDT Narrative [facility] - 08/10/2024 12:34 AM CDT Provider to discontinue after two normal results. Royal eWiss MD LAB BLOOD ORDERABLES Florinda l Result Performing Organization Address [facility] de Phone Number [facility] [place] [address] * POCT glucose (08/09/2024 11:57 PM CDT) Glucose, POC 84 70 - 199 mg/dL Blood 08/09/2024 11:5 7 PM CDT 08/09/2024 11:57 PM CDT Royal Weiss MD LAB POCT ORDERABLES - DEV ICE Final Result Performing Organization Address [facility] de Phone Number [facility] [place] [address] * POCT glucose (08/09/2024 11:01 PM CDT) Glucose, POC 171 70 - 199 mg/dL Blood 08/09/2024 11:0 1 PM CDT 08/09/2024 11:01 PM CDT Royal Weiss MD LAB POCT ORDERABLES - DEV ICE Final Result Performing Organization Address [facility]/State/ZIP Co de Phone Number [facility] [place] [address] * POCT glucose (08/09/2024 10:17 PM CDT) Glucose, POC 155 70 - 199 mg/dL Blood 08/09/2024 10:1 7 PM CDT 08/09/2024 10:17 PM CDT Royal Weiss MD LAB POCT ORDERABLES - DEV ICE Final Result Performing Organization Address [facility] [place] [address] * POCT glucose (08/09/2024 9:05 PM CDT) Glucose, POC 111 70 - 199 mg/dL Blood 08/09/2024 9:05 PM CDT 08/09/2024 9:05 PM CDT Royal Weiss MD LAB POCT ORDERABLES - DEV ICE Final Result Performing Organization Address [facility] Co de Phone Number [facility] [place] [address] * (ABNORMAL) Potassium (08/09/2024 8:51 PM CDT) Potassium, pl 5.9(H) 3.3 - 4.9 mmol/L Blood 08/09/2024 8:51 PM CDT 08/09/2024 9:20 PM CDT Narrative [employer] [facility] [employer] [facility] [employer] [facility] [facility] - 08/09/2024 9:41 PM CDT Provider to discontinue after two normal results. Royal Weiss MD LAB BLOOD ORDERABLES Florinda l Result Performing Organization Address City/[facility]/ZIP Co de Phone Number [facility] [place] [address] * POCT glucose (08/09/2024 7:49 PM CDT) Glucose, POC 91 70 - 199 mg/dL Blood 08/09/2024 7:49 PM CDT 08/09/2024 7:49 PM CDT us Royal Weiss MD LAB POCT ORDERABLES - DEV ICE Final Result [facility] Department [place] [address] * XR Chest 1 View (08/09/2024 6:57 PM CDT) Anatomical Region Laterality Modality Body, Chest N/A Computed Radiogr aphy 08/10/2024 7:22 AM CDT Impressions 08/10/2024 7:22 AM CDT Comparison is made to prior chest radiograph dated 08/06/2024. Tip of right internal jugular central venous catheter terminates near the superior cavoatrial junction. There is interval placement of a left internal jugular central venous catheter that also terminates near the superior cavoatrial junction. Small bilateral pleural effusions appear slightly increased in size. There are increased diffuse interstitial and airspace opacities bilaterally, some of which appear nodular. Findings are consistent with septic emboli. No pneumothorax. Stable heart size. Electronically signed by: Delmis Warren M.D. Narrative 08/10/2024 7:22 AM CDT EXAMINATION: 1 view chest radiograph Procedure Note Delmis Warren MD - 08/10/2024 EXAMINATION: 1 view chest radiograph IMPRESSION: Comparison is made to prior chest radiograph dated 08/06/2024. Tip of right internal jugular central venous catheter terminates near the superior cavoatrial junction. There is interval placement of a left internal jugular central venous catheter that also terminates near the superior cavoatrial junction. Small bilateral pleural effusions appear slightly increased in size. There are increased diffuse interstitial and airspace opacities bilaterally, some of which appear nodular. Findings are consistent with septic emboli. No pneumothorax. Stable heart size. Electronically signed by: Delmis Warren M.D. us Royal Weiss MD IMG XR PROCEDURES Final R esult * POCT glucose (08/09/2024 6:57 PM CDT) Glucose, POC 85 70 - 199 mg/dL Blood 08/09/2024 6:57 PM CDT 08/09/2024 6:57 PM CDT Royal Weiss MD LAB POCT ORDERABLES - DEV ICE Final Result Performing Organization Address [facility] de Phone Number [facility] Department [place] [address] * POCT glucose (08/09/2024 6:09 PM CDT) Glucose, POC 75 70 - 199 mg/dL Blood 08/09/2024 6:09 PM CDT 08/09/2024 6:09 PM CDT Royal Weiss MD LAB POCT ORDERABLES - DEV ICE Final Result Performing Organization Address [facility] de Phone Number [facility] Department [place] [address] * (ABNORMAL) Potassium, whole blood (08/09/2024 6:00 PM CDT) Potassium, bld 5.9(H) 3.3 - 4.9 mmol/L Blood 08/09/2024 6:00 PM CDT 08/09/2024 6:15 PM CDT Roayl Weiss MD LAB BLOOD ORDERABLES Florinda l Result Performing Organization Address [facility] Co de Phone Number [facility] Department [place] [address] * POCT glucose (08/09/2024 5:20 PM CDT) Glucose, POC 88 70 - 199 mg/dL Blood 08/09/2024 5:20 PM CDT 08/09/2024 5:20 PM CDT us Royal Weiss MD LAB POCT ORDERABLES - DEV ICE Final Result [facility] PRU[facility] Department [place] [address] * [place] INSJ NON-TUNNELED CENTRAL VENOUS CATH AGE 5 YR/> (08/09/2024 5:19 PM CDT) Narrative Royal Weiss MD - 08/09/2024 5:19 PM CDT Royal Weiss MD 08/10/2024 11:44 AM Trialysis line Insertion Date/Time: 08/09/2024 5:19 PM Performed by: Alvaro Hu MD Authorized by: Alvaro Hu MD [place] Protocol: RN Notified of Procedure: yes Informed consent: Risks, benefits, alternatives discussed and 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/retail 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 agrees and accepts Patient's stated name/ matches armband: Yes Allergies confirmed: yes Consent form signed, dated, timed; matches correct patient, intended procedure and site: Yes Imaging: Pertinent imaging reviewed, correctly oriented and match to patient identifiers Lab/Diag test results: Pertinent lab/diag tests reviewed and match to patient identifiers Supplies, devices and special equipment are available: yes Site/side marked: yes Immediately prior to the procedure a time out was called: a verbal verification by the procedure participants confirmed correct patient identity, correct site/side marked and visible (if applicable); agreement on procedure to be done; and correct patient positioning Indications: Dialysis Anesthesia (see MAR for exact dosage) Anesthesia method: Local infiltration Local anesthetic: Lidocaine 1% Patient position: Flat Skin preparation: Skin prepped with 2% chlorhexidine Provider preparation: Cap, full body drape, gloves, gown, mask and handwashing Location: Left internal jugular Technique: Landmarks identified Ultrasound guidance: Real-time needle guidance Assessment: Blood return through all ports and free fluid flow Catheter type: Dialysis catheter Needle inserted, vein idenitified then guidewire inserted easily into vein: Yes Number of attempts: 1 Successful placement: Yes Catheter secured at (cm): 20 Catheter length (cm): 20 Line securement: Line sutured Patient tolerance: Patient tolerated the procedure well with no immediate complications Alvaro Hu MD IN CLINIC/BEDSIDE ORDERABLES Fi nal Result * (ABNORMAL) Blood culture Blood (08/09/2024 5:19 PM CDT) Direct Specimen Exam Molecular Analysis: Methicillin-resist ant Staphylococcus aureus (MRSA) detected by the Novacem ePlex BCID-GP panel. This test does not exclud the possibility of a mixed bacterial infection. Notification of: Methicillin-resist ant Staphylococcus aureus (MRSA) called to and read back by: Chapis Strong MD on 08/10/2024 09:54:14 by: Rosa Dey [place] Direct Specimen Exam Stain: Gram Positive Cocci in clusters Time to culture positivity (aerobic media): 10.7 hours Time to culture positivity (anaerobic media): 11.8 hours [facility] Report Final Report: Staphylococcus aureus Methicillin resistant (MRSA) by penicillin binding protein 2a (PBP2a) testing. Staphylococcus aureus #2 Methicillin resistant (MRSA) by penicillin binding protein 2a (PBP2a) testing. (.) [facility] Organism STAPHYLOCOCCUS AUREUS [employer] [facility] Organism STAPHYLOCOCCUS AUREUS [employer] [facility] Blood 08/09/2024 5:19 PM CDT 08/09/2024 5:53 PM CDT Narrative [employer] [facility] - 08/13/2024 1:20 PM CDT Collection->New stick (time of line placement) trialysis line 1. Blood cultures are incubated for 4 days on a continuously monitored blood culture system. The first report of a negative culture is issued within 24 hours of receipt of the specimen in the laboratory. 2. Positive culture results are reported as soon as they are detected. 3. The most important factor for detection of microbes in the setting of bloodstream infection is the volume of blood submitted for culture. Failure to collect an optimal blood volume can result in false negative blood cultures. 4. For pediatric patients, the recommended blood volume to collect follows a weight based strategy. See the electronic test catalog for collection instructions. 5. For positive blood cultures, a rapid molecular test may be performed for organism identification using the pramod ePlex blood culture identification panel for gram positive (BCID-GP) and gram negative (BCID-GN) organisms. This nucleic acid amplification test detects microbial DNA in positive blood culture broth. This assay has been cleared by the [place] Food and Drug Administration and its performance characteristics have been verified by the [facility]. For questions about this culture, contact the Microbiology Laboratory at [phone]. Interpretive data was last revised on 24. Organism Antibiotic Method Susceptibility Staphylococcus aureus Daptomycin (JAMIL) (JAMIL) INTERPRET ATION Susceptible Staphylococcus aureus Ceftaroline (JAMIL) INTERPRETATIO N Susceptible Staphylococcus aureus Doxycycline (JAMIL) INTERPRETATIO N Susceptible Staphylococcus aureus Linezolid (JAMIL) INTERPRETATIO N Susceptible Staphylococcus aureus Trimethoprim with Sulfamethoxazole (JAMIL) INTERPRETATION Susceptible Staphylococcus aureus Clindamycin (JAMIL) INTERPRETATIO N Susceptible Staphylococcus aureus Erythromycin (JAMIL) INTERPRETATIO N Resistant Staphylococcus aureus Vancomycin (JAMIL) INTERPRETATIO N Susceptible Staphylococcus aureus Oxacillin (JAMIL) INTERPRETATIO N Resistant Staphylococcus aureus Cefazolin (JAMIL) INTERPRETATIO N Resistant Staphylococcus aureus Ceftriaxone (JAMIL) INTERPRETATIO N Resistant Staphylococcus aureus Daptomycin (JAMIL) (JAMIL) INTERPRET ATION Susceptible Staphylococcus aureus Ceftaroline (JAMIL) INTERPRETATIO N Susceptible Staphylococcus aureus Doxycycline (JAMIL) INTERPRETATIO N Susceptible Staphylococcus aureus Linezolid (JAMIL) INTERPRETATIO N Susceptible Staphylococcus aureus Trimethoprim with Sulfamethoxazole (JAMIL) INTERPRETATION Susceptible Staphylococcus aureus Clindamycin (JAMIL) INTERPRETATIO N Susceptible Staphylococcus aureus Erythromycin (JAMIL) INTERPRETATIO N Resistant Staphylococcus aureus Vancomycin (JAMIL) INTERPRETATIO N Susceptible Staphylococcus aureus Oxacillin (JAMIL) INTERPRETATIO N Resistant Staphylococcus aureus Cefazolin (JAMIL) INTERPRETATIO N Resistant Staphylococcus aureus Ceftriaxone (JAMIL) INTERPRETATIO N Resistant us Royal Weiss MD LAB MICROBIOLOGY - GENERA L ORDERABLES Final Result [facility] One [facility] Department [place] [address] * Critical Result Callback Chemistry (08/09/2024 4:21 PM CDT) Date Notified [id number] Time Notified [address] [facility] TestName Potassium Plas [employer] [facility] Called/Read Back Katya [facility] Credentials RN [facility] Called By SB [facility] Blood 08/09/2024 4:21 PM CDT 08/09/2024 4:38 PM CDT us Royal Weiss MD LAB BLOOD ORDERABLES Florinda l Result Performing Organization Address City/[facility]/ZIP Co de Phone Number [facility] Department [place] [address] * (ABNORMAL) Potassium (08/09/2024 4:21 PM CDT) [facility] Potassium, pl 6.3(C) 3.3 - 4.9 mmol/L Comment:Hemolyzed; Potassium value may be falsely elevated by as much as 0.3-0.5 mmol/L. Suggest redraw and reanalysis. Blood 08/09/2024 4:21 PM CDT 08/09/2024 4:38 PM CDT Narrative [employer] [facility] - 08/09/2024 5:08 PM CDT Provider to discontinue after two normal results. us Royal Weiss MD LAB BLOOD ORDERABLES Florinda l Result [facility] Department [place] [address] * POCT glucose (08/09/2024 4:07 PM CDT) [facility] Glucose, POC 89 70 - 199 mg/dL Blood 08/09/2024 4:07 PM CDT 08/09/2024 4:07 PM CDT us Royal Weiss MD LAB POCT ORDERABLES - DEV ICE Final Result Performing Organization Address [facility] [place] [address] * POCT glucose (08/09/2024 3:22 PM CDT) Glucose, POC 78 70 - 199 mg/dL Blood 08/09/2024 3:22 PM CDT 08/09/2024 3:22 PM CDT Royal Weiss MD LAB POCT ORDERABLES - DEV ICE Final Result Performing Organization Address [facility] [place] [address] * POCT glucose (08/09/2024 1:00 PM CDT) Glucose, POC 112 70 - 199 mg/dL Blood 08/09/2024 1:00 PM CDT 08/09/2024 1:00 PM CDT Royal Weiss MD LAB POCT ORDERABLES - DEV ICE Final Result Performing Organization Address [facility] Co de Phone Number [facility] [place] [address] * POCT glucose (08/09/2024 12:03 PM CDT) Glucose, POC 136 70 - 199 mg/dL Blood 08/09/2024 12:0 3 PM CDT 08/09/2024 12:03 PM CDT Royal Weiss MD LAB POCT ORDERABLES - DEV ICE Final Result Performing Organization Address [facility] Co de Phone Number [facility] [place] [address] * (ABNORMAL) Potassium (08/09/2024 11:59 AM CDT) Potassium, pl 5.9(H) 3.3 - 4.9 mmol/L Blood 08/09/2024 11:5 9 AM CDT 08/09/2024 12:33 PM CDT Narrative [facility] - 08/09/2024 1:00 PM CDT Provider to discontinue after two normal results. Royal Weiss MD LAB BLOOD ORDERABLES Florinda l Result Performing Organization Address City[facility] Co de Phone Number [facility] [place] [address] * POCT glucose (08/09/2024 10:57 AM CDT) Glucose, POC 118 70 - 199 mg/dL Blood 08/09/2024 10:5 7 AM CDT 08/09/2024 10:57 AM CDT Royal Weiss MD LAB POCT ORDERABLES - DEV ICE Final Result Performing Organization Address [facility] Co de Phone Number [facility] Department [place] [address] * POCT glucose (08/09/2024 10:08 AM CDT) Glucose, POC 91 70 - 199 mg/dL Blood 08/09/2024 10:0 8 AM CDT 08/09/2024 10:08 AM CDT Royal Weiss MD LAB POCT ORDERABLES - DEV ICE Final Result Performing Organization Address [facility] Co de Phone Number [facility] [place] [address] * ECG 12 lead (08/09/2024 8:50 AM CDT) Ventricular Rate EKG/Min 98 BPM [facility] Atrial Rate 98 BPM [facility] MN-Interval (MSEC) 128 ms [facility] QRS-Interval (MSEC) 66 ms [facility] QT-Interval (MSEC) 354 ms [facility] QTc 451 ms [facility] P [place] 32 degrees [facility] R [place] 42 degrees [facility] T [place] 60 degrees [facility] Diagnosis Normal sinus rhythm Low voltage QRS Borderline ECG When compared with ECG of 08-AUG-2024 18:22, (unconfirmed) No significant change was found Confirmed by BREANA VENTURA M.D ([id number]) on 08/09/2024 10:45:14 PM [facility] 08/09/2024 8:50 AM CDT 08/09/2024 10:45 PM CDT us Royal Weiss MD ECG ORDERABLES Final Res ult [facility] * (ABNORMAL) eGFR (08/09/2024 6:40 AM CDT) Pathologist [facility] eGFR 7(L) >=60 mL/min/1. 73 m2 Comment: Interpretive Data Reference Interval Normal >/= 90 mL/min/1.73m2 Mildly decreased* 60 - 89 mL/min/1.73m2 Mildly to moderately decreased 45 - 59 mL/min/1.73m2 Moderately to severely decreased 30 - 44 mL/min/1.73m2 Severely decreased 15 - 29 mL/min/1.73m2 Kidney Failure < 15 mL/min/1.73m2 *Relative to young adult level Estimated glomerular filtration rate is determined by the 2020 CKD-EPI equation recommended by the National Kidney Foundation (A Unifying Approach to GFR Estimation: Recommendations of the NKF-ASK Task Force on Reassessing the Inclusion of Race in Diagnosing Kidney Disease, JASN 2020). The CKD-EPI equation should not be used for patients with unstable renal function and has not been validated in children and those over 70. Current interpretive data was last reviewed 2021. Blood 08/09/2024 6:40 AM CDT 08/09/2024 7:34 AM CDT Royal Weiss MD LAB BLOOD ORDERABLES Florinda l Result Performing Organization Address [facility]/ZIP Co de Phone Number [facility] [place] [address] * (ABNORMAL) Calcium, ionized (08/09/2024 6:40 AM CDT) [facility] Calcium, Ionized 4.07(L) 4.50 - 5.10 mg/dL Blood 08/09/2024 6:40 AM CDT 08/09/2024 7:22 AM CDT Royal Weiss MD LAB BLOOD ORDERABLES Florinda hanson Result Performing Organization Address [facility] de Phone Number [facility] [place] [address] * (ABNORMAL) CBC with auto differential (08/09/2024 6:40 AM CDT) [facility] WBC 18.57(H) 3.80 - 9.90 K/cumm Hgb 8.2(L) 11.9 - 15.5 g/dL [facility] Hct 24.1(L) 35.6 - 45.5 % [facility] Plt 493(H) 150 - 400 K/cumm [facility] MPV 10.6 9.1 - 12.3 fL [facility] RBC 3.11(L) 3.90 - 5.20 M/cumm [facility] MCV 77.5(L) 81.3 - 96.4 fL [facility] MCH 26.4(L) 27.1 - 33.3 pg [facility] MCHC 34.0 32.3 - 35.7 g/dL [facility] RDW CV 17.9(H) 11.1 - 14.9 % [facility] RDW SD 50.0(H) 35.7 - 48.1 fL [facility] NRBC abs 0.00 0.00 - 0.01 K/cumm [facility] Morphologic Screen Results confirmed by manual morphology review. [facility] Blood 08/09/2024 6:40 AM CDT 08/09/2024 7:23 AM CDT Royal Weiss MD LAB BLOOD ORDERABLES Edit ed Result - Final Performing Organization Address City[facility]/ZIP Co de Phone Number [facility] Department [place] [address] * (ABNORMAL) Manual Differential (08/09/2024 6:40 AM CDT) Differential Manual Neutrophil abs 17.29(H) 1.50 - 6.50 K/cumm [facility] Lymphocyte abs 0.80 0.80 - 3.30 K/cumm [facility] Monocyte abs 0.48 0.20 - 0.80 K/cumm [facility] Neutrophil pct 93.1 % [facility] Comment: Interpretive Data Percent cell count reference ranges are not reported, since discordance with absolute values may lead to misinterpretation of CBC data. Current Interpretive Data was last revised on 2017. Lymphocyte pct 4.3 % [facility] Comment: Interpretive Data Percent cell count reference ranges are not reported, since discordance with absolute values may lead to misinterpretation of CBC data. Current Interpretive Data was last revised on 2017. Monocyte pct 2.6 % [facility] Comment: Interpretive Data Percent cell count reference ranges are not reported, since discordance with absolute values may lead to misinterpretation of CBC data. Current Interpretive Data was last revised on 2017. Blood 08/09/2024 6:40 AM CDT 08/09/2024 7:38 AM CDT Royal Weiss MD LAB BLOOD ORDERABLES Florinda l Result [facility] Department [place] [address] * (ABNORMAL) Phosphorus (08/09/2024 6:40 AM CDT) [facility] Phosphorus, pl 11.9(H) 2.3 - 4.5 mg/dL Blood 08/09/2024 6:40 AM CDT 08/09/2024 7:23 AM CDT Royal Weiss MD LAB BLOOD ORDERABLES Florinda l Result Performing Organization Address [facility] Co de Phone Number [facility] Department [place] [address] * Magnesium (08/09/2024 6:40 AM CDT) [facility] Magnesium 2.4 1.4 - 2.5 mg/dL Blood 08/09/2024 6:40 AM CDT 08/09/2024 7:23 AM CDT Royal Weiss MD LAB BLOOD ORDERABLES Florinda l Result Performing Organization Address [facility] de Phone Number [facility] [place] [address] * (ABNORMAL) Basic metabolic panel (08/09/2024 6:40 AM CDT) [facility] Sodium 131(L) 135 - 145 mmol/L Potassium, pl 5.6(H) 3.3 - 4.9 mmol/L [facility] Chloride 99 97 - 110 mmol/L [facility] CO2 17(L) 22 - 32 mmol/L [facility] Anion gap 15 2 - 15 mmol/L [facility] BUN 80(H) 6 - 25 mg/dL [facility] Creatinine 7.16(H) 0.60 - 1.10 mg/dL [facility] Glucose 78 70 - 199 mg/dL [facility] Comment: Interpretive Data Fasting glucose >/= 126 mg/dl is diagnostic for diabetes. Fasting is defined as no caloric intake for at least 8 hours. Fasting glucose between 100 mg/dl to 125 mg/dl is diagnostic of prediabetes. In a patient with classic symptoms of hyperglycemia or hyperglycemic crisis, a random glucose >/= 200 mg/dl is diagnostic for diabetes. In the absence of unequivocal hyperglycemia, results should be confirmed by repeat testing. The classification and Diagnosis of Diabetes Diabetes Care 2021; 46: S19-S40. Current interpretive data was last revised 2022. Calcium 7.1(L) 8.5 - 10.3 mg/dL [facility] Blood 08/09/2024 6:40 AM CDT 08/09/2024 7:23 AM CDT Royal Weiss MD LAB BLOOD ORDERABLES Florinda l Result Performing Organization Address [facility]/ZIP Co de Phone Number [facility] One [facility] Department [place] [address] * ECG 12 lead (08/08/2024 6:22 PM CDT) Ventricular Rate EKG/Min 81 BPM [facility] Atrial Rate 81 BPM [facility] MN-Interval (MSEC) 144 ms [facility] QRS-Interval (MSEC) 68 ms [facility] QT-Interval (MSEC) 396 ms [facility] QTc 460 ms [facility] P [place] 29 degrees [facility] R [place] 37 degrees [facility] T [place] 56 degrees [facility] Diagnosis Normal sinus rhythm Normal ECG When compared with ECG of 07-AUG-2024 12:40, (unconfirmed) No significant change was found Confirmed by HAJA CORREA M.D ([id number]) on 08/10/2024 1:33:21 PM [facility] 08/08/2024 6:22 PM CDT 08/10/2024 1:33 PM CDT Royal Weiss MD ECG ORDERABLES Final Res ult [facility] * (ABNORMAL) Bacterial vaginosis stain Vaginal (08/08/2024 4:24 PM CDT) Direct Specimen Exam Stain: Gram stain indicates altered vaginal melissa, not diagnostic of bacterial vaginosis. Yeast present (.) Vaginal 08/08/2024 4:24 PM CDT 08/08/2024 5:57 PM CDT Narrative [facility] - 08/08/2024 7:13 PM CDT Specimen received on an ESwab. Interpretive Data Test performed by microscopic examination of a Gram-stained smear and interpreted using Khoi score. The scored Gram stain for diagnosis of bacterial vaginosis should be used only for women in childbearing years or postmenopausal women on estrogen replacement therapy. Current Interpretive Data was last revised on 2022 Royal Weiss MD LAB MICROBIOLOGY - GENERA L ORDERABLES Final Result Performing Organization Address City[facility]/ZIP Co de Phone Number [facility] Department [place] [address] * POCT glucose (08/08/2024 4:07 PM CDT) Pathologist [facility] Glucose, POC 91 70 - 199 mg/dL Blood 08/08/2024 4:07 PM CDT 08/08/2024 4:07 PM CDT Royal Weiss MD LAB POCT ORDERABLES - DEV ICE Final Result Performing Organization Address [facility] Co de Phone Number [facility] Department [place] [address] * (ABNORMAL) Blood culture Blood (08/08/2024 3:04 PM CDT) Direct Specimen Exam Stain: Gram Positive Cocci in clusters Time to culture positivity (aerobic media): 16.1 hours Time to culture positivity (anaerobic media): 18.1 hours Report Final Report: Staphylococcus aureus For susceptibility results, refer to accession number [id number] on the blood culture from 08/05/2024 * * * * * * * * * * * * * * * * * * * * Staphylococcus aureus #2 Methicillin resistant (MRSA) by penicillin binding protein 2a (PBP2a) testing. (.) [facility] Organism STAPHYLOCOCCUS AUREUS [employer] [facility] Organism STAPHYLOCOCCUS AUREUS [facility] Blood 08/08/2024 3:04 PM CDT 08/08/2024 5:39 PM CDT Narrative [facility] - 08/12/2024 12:46 PM CDT Collection->Peripheral 1. Blood cultures are incubated for 4 days on a continuously monitored blood culture system. The first report of a negative culture is issued within 24 hours of receipt of the specimen in the laboratory. 2. Positive culture results are reported as soon as they are detected. 3. The most important factor for detection of microbes in the setting of bloodstream infection is the volume of blood submitted for culture. Failure to collect an optimal blood volume can result in false negative blood cultures. 4. For pediatric patients, the recommended blood volume to collect follows a weight based strategy. See the electronic test catalog for collection instructions. 5. For positive blood cultures, a rapid molecular test may be performed for organism identification using the pramod ePlex blood culture identification panel for gram positive (BCID-GP) and gram negative (BCID-GN) organisms. This nucleic acid amplification test detects microbial DNA in positive blood culture broth. This assay has been cleared by the [place] Food and Drug Administration and its performance characteristics have been verified by the [facility]. For questions about this culture, contact the Microbiology Laboratory at [phone]. Interpretive data was last revised on 24. Organism Antibiotic Method Susceptibility Staphylococcus aureus Daptomycin (JAMIL) (JAMIL) INTERPRET ATION Susceptible Staphylococcus aureus Ceftaroline (JAMIL) INTERPRETATIO N Susceptible Staphylococcus aureus Doxycycline (JAMIL) INTERPRETATIO N Susceptible Staphylococcus aureus Linezolid (JAMIL) INTERPRETATIO N Susceptible Staphylococcus aureus Trimethoprim with Sulfamethoxazole (JAMIL) INTERPRETATION Susceptible Staphylococcus aureus Clindamycin (JAMIL) INTERPRETATIO N Susceptible Staphylococcus aureus Erythromycin (JAMIL) INTERPRETATIO N Resistant Staphylococcus aureus Vancomycin (JAMIL) INTERPRETATIO N Susceptible Staphylococcus aureus Oxacillin (JAMIL) INTERPRETATIO N Resistant Staphylococcus aureus Cefazolin (JAMIL) INTERPRETATIO N Resistant Staphylococcus aureus Ceftriaxone (JAMIL) INTERPRETATIO N Resistant us Royal Weiss MD LAB MICROBIOLOGY - GENERA L ORDERABLES Final Result [facility] [place] [address] * POCT glucose (08/08/2024 12:09 PM CDT) Glucose, POC 79 70 - 199 mg/dL Blood 08/08/2024 12:0 9 PM CDT 08/08/2024 12:09 PM CDT Royal Weiss MD LAB POCT ORDERABLES - DEV ICE Final Result Performing Organization Address [facility] Co de Phone Number [facility] [place] [address] * POCT glucose (08/08/2024 7:45 AM CDT) [facility] Signature Glucose, POC 132 70 - 199 mg/dL Blood 08/08/2024 7:45 AM CDT 08/08/2024 7:45 AM CDT Royal Weiss MD LAB POCT ORDERABLES - DEV ICE Final Result Performing Organization Address [facility] de Phone Number [facility] [place] [address] * (ABNORMAL) eGFR (08/08/2024 5:15 AM CDT) [facility] eGFR 8(L) >=60 mL/min/1. 73 m2 Comment: Interpretive Data Reference Interval Normal >/= 90 mL/min/1.73m2 Mildly decreased* 60 - 89 mL/min/1.73m2 Mildly to moderately decreased 45 - 59 mL/min/1.73m2 Moderately to severely decreased 30 - 44 mL/min/1.73m2 Severely decreased 15 - 29 mL/min/1.73m2 Kidney Failure < 15 mL/min/1.73m2 *Relative to young adult level Estimated glomerular filtration rate is determined by the 2020 CKD-EPI equation recommended by the National Kidney Foundation (A Unifying Approach to GFR Estimation: Recommendations of the NKF-ASK Task Force on Reassessing the Inclusion of Race in Diagnosing Kidney Disease, JASN 2020). The CKD-EPI equation should not be used for patients with unstable renal function and has not been validated in children and those over 70. Current interpretive data was last reviewed 2021. Blood 08/08/2024 5:15 AM CDT 08/08/2024 6:36 AM CDT us Royal Weiss MD LAB BLOOD ORDERABLES Florinda hanson Result [facility] One [facility] Department [place] [address] * (ABNORMAL) Differential, auto (08/08/2024 5:15 AM CDT) Neutrophil abs 14.39(H) 1.50 - 6.50 K/cumm Imm gran abs 0.40(H) 0.00 - 0.10 K/cumm [facility] Lymphocyte abs 2.08 0.80 - 3.30 K/cumm [facility] Monocyte abs 1.28(H) 0.20 - 0.80 K/cumm [facility] Eosinophil abs 0.23 0.00 - 0.50 K/cumm [facility] Basophil abs 0.06 0.00 - 0.10 K/cumm [facility] Neutrophil pct 78.1 % [facility] Comment: Differential consistent with previous result. Interpretive Data Percent cell count reference ranges are not reported, since discordance with absolute values may lead to misinterpretation of CBC data. Current Interpretive Data was last revised on 2017. Imm gran pct 2.2 % [facility] Comment: Interpretive Data Percent cell count reference ranges are not reported, since discordance with absolute values may lead to misinterpretation of CBC data. Current Interpretive Data was last revised on 2017. Lymphocyte pct 11.3 % [facility] Comment: Interpretive Data Percent cell count reference ranges are not reported, since discordance with absolute values may lead to misinterpretation of CBC data. Current Interpretive Data was last revised on 2017. Monocyte pct 6.9 % [facility] Comment: Interpretive Data Percent cell count reference ranges are not reported, since discordance with absolute values may lead to misinterpretation of CBC data. Current Interpretive Data was last revised on 2017. Eosinophil pct 1.2 % [facility] [facility] Comment: Interpretive Data Percent cell count reference ranges are not reported, since discordance with absolute values may lead to misinterpretation of CBC data. Current Interpretive Data was last revised on 2017. Basophil pct 0.3 % [facility] Comment: Interpretive Data Percent cell count reference ranges are not reported, since discordance with absolute values may lead to misinterpretation of CBC data. Current Interpretive Data was last revised on 2017. Blood 08/08/2024 5:15 AM CDT 08/08/2024 6:36 AM CDT Royal Weiss MD LAB BLOOD ORDERABLES Florinda l Result Performing Organization Address [facility] Co de Phone Number [facility] Department [place] [address] * (ABNORMAL) Calcium, ionized (08/08/2024 5:15 AM CDT) [facility] Calcium, Ionized 4.31(L) 4.50 - 5.10 mg/dL Blood 08/08/2024 5:15 AM CDT 08/08/2024 6:36 AM CDT Royal Weiss MD LAB BLOOD ORDERABLES Florinda l Result Performing Organization Address City/[facility]/ZIP Co de Phone Number [facility] Department [place] [address] * (ABNORMAL) CBC with auto differential (08/08/2024 5:15 AM CDT) Pathologist [facility] WBC 18.44(H) 3.80 - 9.90 K/cumm Hgb 7.5(L) 11.9 - 15.5 g/dL [facility] Hct 21.6(L) 35.6 - 45.5 % [facility] Plt 385 150 - 400 K/cumm [facility] MPV 11.0 9.1 - 12.3 fL [facility] RBC 2.84(L) 3.90 - 5.20 M/cumm [facility] MCV 76.1(L) 81.3 - 96.4 fL [facility] MCH 26.4(L) 27.1 - 33.3 pg [facility] MCHC 34.7 32.3 - 35.7 g/dL [facility] RDW CV 17.7(H) 11.1 - 14.9 % [facility] RDW SD 48.9(H) 35.7 - 48.1 fL [facility] NRBC abs 0.00 0.00 - 0.01 K/cumm [facility] Blood 08/08/2024 5:15 AM CDT 08/08/2024 6:36 AM CDT Royal Weiss MD LAB BLOOD ORDERABLES Florinda l Result [facility] Department [place] [address] * (ABNORMAL) Phosphorus (08/08/2024 5:15 AM CDT) Phosphorus, pl 10.8(H) 2.3 - 4.5 mg/dL Blood 08/08/2024 5:15 AM CDT 08/08/2024 6:36 AM CDT Royal Weiss MD LAB BLOOD ORDERABLES Florinda l Result [facility] [place] [address] * Magnesium (08/08/2024 5:15 AM CDT) Magnesium 2.3 1.4 - 2.5 mg/dL Blood 08/08/2024 5:15 AM CDT 08/08/2024 6:36 AM CDT Royal Weiss MD LAB BLOOD ORDERABLES Florinda l Result [facility] Department [place] [address] * (ABNORMAL) Basic metabolic panel (08/08/2024 5:15 AM CDT) Pathologist [facility] Sodium 130(L) 135 - 145 mmol/L Potassium, pl 4.8 3.3 - 4.9 mmol/L [facility] Chloride 99 97 - 110 mmol/L [facility] CO2 19(L) 22 - 32 mmol/L [facility] Anion gap 12 2 - 15 mmol/L [facility] BUN 74(H) 6 - 25 mg/dL [facility] Creatinine 6.41(H) 0.60 - 1.10 mg/dL [facility] Glucose 87 70 - 199 mg/dL [facility] Comment: Interpretive Data Fasting glucose >/= 126 mg/dl is diagnostic for diabetes. Fasting is defined as no caloric intake for at least 8 hours. Fasting glucose between 100 mg/dl to 125 mg/dl is diagnostic of prediabetes. In a patient with classic symptoms of hyperglycemia or hyperglycemic crisis, a random glucose >/= 200 mg/dl is diagnostic for diabetes. In the absence of unequivocal hyperglycemia, results should be confirmed by repeat testing. The classification and Diagnosis of Diabetes Diabetes Care 2021; 46: S19-S40. Current interpretive data was last revised 2022. Calcium 7.3(L) 8.5 - 10.3 mg/dL [facility] Blood 08/08/2024 5:15 AM CDT 08/08/2024 6:36 AM CDT Royal Weiss MD LAB BLOOD ORDERABLES Florinda l Result Performing Organization Address [facility]/ZIP Co de Phone Number [facility] Department [place] [address] * POCT glucose (08/08/2024 3:59 AM CDT) Glucose, POC 84 70 - 199 mg/dL Blood 08/08/2024 3:59 AM CDT 08/08/2024 3:59 AM CDT Royal Weiss MD LAB POCT ORDERABLES - DEV ICE Final Result Performing Organization Address City/[facility]/ZIP Co de Phone Number [facility] Department [place] [address] * hCG, urine, qualitative (08/08/2024 12:04 AM CDT) HCG, ur Negative Negative Urine 08/08/2024 12:0 4 AM CDT 08/08/2024 1:38 AM CDT Lalito Rachel MD LAB URINE ORDERABLES Florinda l Result Performing Organization Address City/[facility]/ZIP Co de Phone Number [facility] [place] [address] * POCT glucose (08/07/2024 11:38 PM CDT) Glucose, POC 98 70 - 199 mg/dL Blood 08/07/2024 11:3 8 PM CDT 08/07/2024 11:38 PM CDT Royal Weiss MD LAB POCT ORDERABLES - DEV ICE Final Result [facility] [place] [address] * POCT glucose (08/07/2024 9:19 PM CDT) Glucose, POC 76 70 - 199 mg/dL Blood 08/07/2024 9:19 PM CDT 08/07/2024 9:19 PM CDT Royal Weiss MD LAB POCT ORDERABLES - DEV ICE Final Result [facility] [place] [address] * (ABNORMAL) POCT glucose (08/07/2024 7:49 PM CDT) Glucose, POC 69(L) 70 - 199 mg/dL Blood 08/07/2024 7:49 PM CDT 08/07/2024 7:49 PM CDT Royal Weiss MD LAB POCT ORDERABLES - DEV ICE Final Result Performing Organization Address [facility] de Phone Number [facility] [place] [address] * CT Chest Abdomen Pelvis WO Contrast (08/07/2024 3:12 PM CDT) Anatomical Region Laterality Modality Body N/A Computed Tomogra phy 08/07/2024 3:21 PM CDT Impressions 08/07/2024 3:21 PM CDT 1. Findings most consistent with septic pulmonary emboli with superimposed pulmonary edema and small pleural effusions. 2. No CT evidence to support discitis osteomyelitis currently, although MRI is more sensitive for this diagnosis. 3. Normal imaged portions of the left shoulder. 4. 4.9 cm left adnexal cyst. In a patient of this age, it is unlikely to be malignant. It is similar in size to the remote prior study from 2019. Although this may be a recurrent/physiologic cyst, attention on follow-up is recommended. Electronically signed by: Kg Ackerman M.D. Narrative 08/07/2024 3:21 PM CDT EXAMINATION: Computed tomography of the chest, abdomen and pelvis without intravenous contrast HISTORY: Left shoulder pain, back pain, sepsis. TECHNIQUE: Transaxial computed tomographic images of the chest, abdomen and pelvis were obtained without intravenous contrast according to the standard protocol. COMPARISON: No prior chest CT. Abdominal/pelvis CT dated 05/20/2018. FINDINGS: There are small bilateral pleural effusions. Multifocal, predominantly peripheral cavitary nodular foci of consolidation are present diffusely in both lungs. There is superimposed pulmonary edema manifesting with smooth septal line thickening. Right internal jugular central venous catheter terminates in the superior vena cava. Normal heart size with trace pericardial fluid. Scattered predominantly subcentimeter mediastinal and hilar lymph nodes are present along with some mildly enlarged lymph nodes that are probably reactive. No axillary or supraclavicular lymphadenopathy. Unenhanced evaluation of the liver bile ducts gallbladder adrenal glands pancreas spleen and kidneys is normal. The abdominal aorta is normal in caliber. No abdominal or pelvic lymphadenopathy. Intrauterine contraceptive device. Simple appearing left adnexal 4.9 cm cyst. Normal right ovary. Partially distended bladder. Trace free intraperitoneal fluid without free gas. No intestinal obstruction or focal bowel wall thickening. Normal appendix. Diffuse body wall edema is present. Bone windows demonstrate mild T10 vertebral body height loss as well as mild L5-S1 degenerative disc disease. No definite disc centered destruction is identified. Included portions of the left shoulder appear normal. Procedure Note Kg Ackerman MD - 08/07/2024 EXAMINATION: Computed tomography of the chest, abdomen and pelvis without intravenous contrast HISTORY: Left shoulder pain, back pain, sepsis. TECHNIQUE: Transaxial computed tomographic images of the chest, abdomen and pelvis were obtained without intravenous contrast according to the standard protocol. COMPARISON: No prior chest CT. Abdominal/pelvis CT dated 05/20/2018. FINDINGS: There are small bilateral pleural effusions. Multifocal, predominantly peripheral cavitary nodular foci of consolidation are present diffusely in both lungs. There is superimposed pulmonary edema manifesting with smooth septal line thickening. Right internal jugular central venous catheter terminates in the superior vena cava. Normal heart size with trace pericardial fluid. Scattered predominantly subcentimeter mediastinal and hilar lymph nodes are present along with some mildly enlarged lymph nodes that are probably reactive. No axillary or supraclavicular lymphadenopathy. Unenhanced evaluation of the liver bile ducts gallbladder adrenal glands pancreas spleen and kidneys is normal. The abdominal aorta is normal in caliber. No abdominal or pelvic lymphadenopathy. Intrauterine contraceptive device. Simple appearing left adnexal 4.9 cm cyst. Normal right ovary. Partially distended bladder. Trace free intraperitoneal fluid without free gas. No intestinal obstruction or focal bowel wall thickening. Normal appendix. Diffuse body wall edema is present. Bone windows demonstrate mild T10 vertebral body height loss as well as mild L5-S1 degenerative disc disease. No definite disc centered destruction is identified. Included portions of the left shoulder appear normal. IMPRESSION: 1. Findings most consistent with septic pulmonary emboli with superimposed pulmonary edema and small pleural effusions. 2. No CT evidence to support discitis osteomyelitis currently, although MRI is more sensitive for this diagnosis. 3. Normal imaged portions of the left shoulder. 4. 4.9 cm left adnexal cyst. In a patient of this age, it is unlikely to be malignant. It is similar in size to the remote prior study from 2019. Although this may be a recurrent/physiologic cyst, attention on follow-up is recommended. Electronically signed by: Kg Ackerman M.D. Royal Weiss MD IMG CT PROCEDURES Final R esult * ECG 12 lead (08/07/2024 12:40 PM CDT) Ventricular Rate EKG/Min 89 BPM [facility] Atrial Rate 89 BPM [facility] MN-Interval (MSEC) 122 ms [facility] QRS-Interval (MSEC) 72 ms [facility] QT-Interval (MSEC) 376 ms [facility] QTc 457 ms [facility] P [place] 57 degrees [facility] R [place] 37 degrees [facility] T [place] 44 degrees [facility] Diagnosis Normal sinus rhythm Low voltage QRS Borderline ECG When compared with ECG of 06-AUG-2024 19:36, QT has lengthened Confirmed by BREANA VENTURA M.D ([id number]) on 08/09/2024 10:48:06 PM [facility] 08/07/2024 12:4 0 PM CDT 08/09/2024 10:48 PM CDT Royal Weiss MD ECG ORDERABLES Final Res ult [facility] * Mycology (fungal) culture and stain Abscess Hand, right (08/07/2024 10:52 AM CDT) Direct Specimen Exam Stain: No Fungal elements seen. Report Final Report: No growth of fungus [facility] Abscess (Hand, right) 08/07/2024 10:52 AM CDT 08/07/2024 11:24 AM CDT Narrative [facility] - 09/04/2024 8:43 AM CDT Testing performed by [facility] ([phone]). Royal Weiss MD LAB MICROBIOLOGY - GENERA L ORDERABLES Final Result [facility] Department [place] [address] * (ABNORMAL) Aerobic and anaerobic culture and gram stain Abscess Hand, right (08/07/2024 10:52 AM CDT) Direct Specimen Exam Stain: Moderate polymorphonuclear leukocytes seen. Moderate Gram Positive Cocci Report Final Report: Abundant Staphylococcus aureus Methicillin resistant (MRSA) by penicillin binding protein 2a (PBP2a) testing. (.) [facility] Organism STAPHYLOCOCCUS AUREUS [facility] Abscess (Hand, right) 08/07/2024 10:52 AM CDT 08/07/2024 11:23 AM CDT Narrative [facility] - 08/10/2024 10:51 AM CDT Testing performed by [facility] ([phone]) Specimens submitted from normally sterile body sites will have all bacterial morphotypes identified. Specimens that contain grossly mixed melissa and/or are from body sites that are not normally sterile will be examined for Staphylococcus aureus, Pseudomonas aeruginosa, beta-hemolytic strep, vancomycin-resistant Enterococcus, Bacteroides, Parabacteroides, Clostridium perfringens and fungus. If any of these are isolated, the organism will be reported. Current interpretive data was last revised on 2019. Organism Antibiotic Method Susceptibility Staphylococcus aureus Vancomycin INTERPRETATION Susceptible Staphylococcus aureus Ceftaroline INTERPRETATION Susceptible Staphylococcus aureus Trimethoprim with Sulfamethoxazole INTERPRETATION Susceptible Staphylococcus aureus Linezolid INTERPRETATION Susceptible Staphylococcus aureus Doxycycline INTERPRETATION Susceptible Staphylococcus aureus Clindamycin INTERPRETATION Susceptible Staphylococcus aureus Erythromycin INTERPRETATION Resistant Staphylococcus aureus Oxacillin INTERPRETATION Resistant Staphylococcus aureus Cefazolin INTERPRETATION Resistant Staphylococcus aureus Ceftriaxone INTERPRETATION Resistant Royal Weiss MD LAB MICROBIOLOGY - GENERA L ORDERABLES Final Result Performing Organization Address [facility] Co de Phone Number [facility] [place] [address] * (ABNORMAL) C4 complement (08/07/2024 8:59 AM CDT) Complement C4 7.8(L) 10.0 - 40.0 mg/dL Blood 08/07/2024 8:59 AM CDT 08/07/2024 9:19 AM CDT us Royal Weiss MD LAB BLOOD ORDERABLES Florinda l Result Performing Organization Address [facility] de Phone Number [facility] Department [place] [address] * (ABNORMAL) Erythrocyte sedimentation rate (08/07/2024 8:59 AM CDT) Erythrocyte sedimentation rate 92(H) 1 - 20 mm/hr Blood 08/07/2024 8:59 AM CDT 08/07/2024 9:18 AM CDT Royal Weiss MD LAB BLOOD ORDERABLES Florinda l Result Performing Organization Address [facility] Co de Phone Number [facility] [place] [address] * (ABNORMAL) C3 complement (08/07/2024 8:59 AM CDT) Complement C3 47.0(L) 90.0 - 180.0 mg/dL Blood 08/07/2024 8:59 AM CDT 08/07/2024 9:19 AM CDT Royal Weiss MD LAB BLOOD ORDERABLES Florinda l Result Performing Organization Address City/[facility]/ZIP Co de Phone Number [facility] Department [place] [address] * (ABNORMAL) CRP (acute phase) (08/07/2024 8:59 AM CDT) CRP 227.5(H) <=10.0 mg/L Blood 08/07/2024 8:59 AM CDT 08/07/2024 9:18 AM CDT us Royal Weiss MD LAB BLOOD ORDERABLES Florinda l Result Performing Organization Address [facility] de Phone Number [facility] Department [place] [address] * XR Hand Right 3 or More Views (08/07/2024 8:55 AM CDT) Anatomical Region Laterality Modality Upper Extremities, Hand Right Digital Radiography 08/07/2024 10:0 6 AM CDT Impressions 08/07/2024 10:38 AM CDT Diffuse right hand soft tissue swelling, without acute osseous abnormality of the right hand or wrist. Dictated by: Carlos Santiago MD The radiology attending physician has personally reviewed this study, and had reviewed and/or edited this written report and agrees with it. Electronically signed by: Connor Bey M.D. Narrative 08/07/2024 10:38 AM CDT EXAMINATION: XR HAND RIGHT 3 OR MORE VIEWS, XR WRIST RIGHT 3 OR MORE VIEWS HISTORY: Bacteremia. Right hand swelling FINDINGS: 3 view examination of the right hand and 3 view examination of the right wrist are compared to right forearm radiographs 09/19/2022. There is diffuse soft tissue swelling about the right hand. Alignment of the right hand is normal. There is ulnar positive variance. No acute fracture. No osseous erosion or periosteal reaction. The joint spaces are preserved. No retained radiopaque foreign body. Procedure Note Connor Bey MD PhD - 04/08/2025 EXAMINATION: XR HAND RIGHT 3 OR MORE VIEWS, XR WRIST RIGHT 3 OR MORE VIEWS HISTORY: Bacteremia. Right hand swelling FINDINGS: 3 view examination of the right hand and 3 view examination of the right wrist are compared to right forearm radiographs 09/19/2022. There is diffuse soft tissue swelling about the right hand. Alignment of the right hand is normal. There is ulnar positive variance. No acute fracture. No osseous erosion or periosteal reaction. The joint spaces are preserved. No retained radiopaque foreign body. IMPRESSION: Diffuse right hand soft tissue swelling, without acute osseous abnormality of the right hand or wrist. Dictated by: Carlos Santiago MD The radiology attending physician has personally reviewed this study, and had reviewed and/or edited this written report and agrees with it. Electronically signed by: Connor Bey M.D. us Royal Weiss MD IMG XR PROCEDURES Final R esult * XR Wrist Right 3 or More Views (08/07/2024 8:55 AM CDT) Anatomical Region Laterality Modality Upper Extremities, Wrist Right Digital Radiography 08/07/2024 10:0 6 AM CDT Impressions 08/07/2024 10:38 AM CDT Diffuse right hand soft tissue swelling, without acute osseous abnormality of the right hand or wrist. Dictated by: Carlos Santiago MD The radiology attending physician has personally reviewed this study, and had reviewed and/or edited this written report and agrees with it. Electronically signed by: Connor Bey M.D. Narrative 08/07/2024 10:38 AM CDT EXAMINATION: XR HAND RIGHT 3 OR MORE VIEWS, XR WRIST RIGHT 3 OR MORE VIEWS HISTORY: Bacteremia. Right hand swelling FINDINGS: 3 view examination of the right hand and 3 view examination of the right wrist are compared to right forearm radiographs 09/19/2022. There is diffuse soft tissue swelling about the right hand. Alignment of the right hand is normal. There is ulnar positive variance. No acute fracture. No osseous erosion or periosteal reaction. The joint spaces are preserved. No retained radiopaque foreign body. Procedure Note Connor Bey MD PhD - 08/07/2024 EXAMINATION: XR HAND RIGHT 3 OR MORE VIEWS, XR WRIST RIGHT 3 OR MORE VIEWS HISTORY: Bacteremia. Right hand swelling FINDINGS: 3 view examination of the right hand and 3 view examination of the right wrist are compared to right forearm radiographs 09/19/2022. There is diffuse soft tissue swelling about the right hand. Alignment of the right hand is normal. There is ulnar positive variance. No acute fracture. No osseous erosion or periosteal reaction. The joint spaces are preserved. No retained radiopaque foreign body. IMPRESSION: Diffuse right hand soft tissue swelling, without acute osseous abnormality of the right hand or wrist. Dictated by: Carlos Santiago MD The radiology attending physician has personally reviewed this study, and had reviewed and/or edited this written report and agrees with it. Electronically signed by: Connor Bey M.D. Royal Weiss MD [facility] XR PROCEDURES Final R esult * XR Shoulder Left 2 or More Views (08/07/2024 8:55 AM CDT) Anatomical Region Laterality Modality Upper Extremities, Shoulder Left Digi octavio Radiography 08/07/2024 9:11 AM CDT Impressions 08/07/2024 9:11 AM CDT Normal radiographs of the left shoulder. Electronically signed by: Manuel Erickson M.D. Narrative 08/07/2024 9:11 AM CDT XR SHOULDER LEFT 2 OR MORE VIEWS HISTORY: Left shoulder pain. FINDINGS: 3 views of the left shoulder are obtained and interpreted without comparison. There is no fracture. The joint spaces are preserved. Alignment and soft tissues are normal. Procedure Note Manuel Erickson MD - 08/07/2024 XR SHOULDER LEFT 2 OR MORE VIEWS HISTORY: Left shoulder pain. FINDINGS: 3 views of the left shoulder are obtained and interpreted without comparison. There is no fracture. The joint spaces are preserved. Alignment and soft tissues are normal. IMPRESSION: Normal radiographs of the left shoulder. Electronically signed by: Manuel Erickson M.D. Royal Weiss MD IMG XR PROCEDURES Final R esult * US Upper Extremity Right Limited (08/07/2024 8:16 AM CDT) Anatomical Region Laterality Modality Upper Extremities Right Ultrasound 08/07/2024 8:51 AM CDT Impressions 08/07/2024 8:58 AM CDT 1. Irregular shaped fluid collection in the dorsal aspect of the hand which can represent an abscess in the appropriate clinical setting. 2. Nonspecific small amount of fluid in the subjacent radiocarpal joint and synovium which may be reactive. Dictated by: Aidee Bryan M.D. The radiology attending physician has personally reviewed this study, and had reviewed and/or edited this written report and agrees with it. Electronically signed by: Kianna Bae M.D. Narrative 08/07/2024 8:58 AM CDT Can represent an abscess in the proper clinical setting. EXAMINATION: Right upper extremityultrasound limited HISTORY: MRSA bacteremia and septic emboli, concern for abscess in the dorsal aspect of hand. FINDINGS: There is a irregular shaped fluid collection in the dorsal aspect of the hand, superficial to the synovium measuring 4.2 x 3 x 1 cm. There is adjacent hyperemia without internal flow. There is surrounding edema. There is a small amount of fluid in the subjacent radiocarpal joint and synovium which is nonspecific. Procedure Note Kianna Villafana MD - 08/07/2024 Can represent an abscess in the proper clinical setting. EXAMINATION: Right upper extremityultrasound limited HISTORY: MRSA bacteremia and septic emboli, concern for abscess in the dorsal aspect of hand. FINDINGS: There is a irregular shaped fluid collection in the dorsal aspect of the hand, superficial to the synovium measuring 4.2 x 3 x 1 cm. There is adjacent hyperemia without internal flow. There is surrounding edema. There is a small amount of fluid in the subjacent radiocarpal joint and synovium which is nonspecific. IMPRESSION: 1. Irregular shaped fluid collection in the dorsal aspect of the hand which can represent an abscess in the appropriate clinical setting. 2. Nonspecific small amount of fluid in the subjacent radiocarpal joint and synovium which may be reactive. Dictated by: Aidee Bryan M.D. The radiology attending physician has personally reviewed this study, and had reviewed and/or edited this written report and agrees with it. Electronically signed by: Kianna Bae M.D. us Royal Weiss MD IMG US PROCEDURES Final R esult * (ABNORMAL) eGFR (08/07/2024 6:05 AM CDT) eGFR 11(L) >=60 mL/min/1. 73 m2 Comment: Interpretive Data Reference Interval Normal >/= 90 mL/min/1.73m2 Mildly decreased* 60 - 89 mL/min/1.73m2 Mildly to moderately decreased 45 - 59 mL/min/1.73m2 Moderately to severely decreased 30 - 44 mL/min/1.73m2 Severely decreased 15 - 29 mL/min/1.73m2 Kidney Failure < 15 mL/min/1.73m2 *Relative to young adult level Estimated glomerular filtration rate is determined by the 2020 CKD-EPI equation recommended by the [employer] (A Unifying Approach to GFR Estimation: Recommendations of the NKF-ASK Task Force on Reassessing the Inclusion of Race in Diagnosing Kidney Disease, JASN 2020). The CKD-EPI equation should not be used for patients with unstable renal function and has not been validated in children and those over 70. Current interpretive data was last reviewed 2021. Blood 08/07/2024 6:05 AM CDT 08/07/2024 6:22 AM CDT us Royal Weiss MD LAB BLOOD ORDERABLES Florinda l Result [facility] Department [place] [address] * (ABNORMAL) Differential, auto (08/07/2024 6:05 AM CDT) Neutrophil abs 16.64(H) 1.50 - 6.50 K/cumm Imm gran abs 0.61(H) 0.00 - 0.10 K/cumm [facility] Lymphocyte abs 1.86 0.80 - 3.30 K/cumm [facility] Monocyte abs 1.63(H) 0.20 - 0.80 K/cumm [facility] Eosinophil abs 0.16 0.00 - 0.50 K/cumm [facility] Basophil abs 0.06 0.00 - 0.10 K/cumm [facility] Neutrophil pct 79.3 % [facility] Comment: Interpretive Data Percent cell count reference ranges are not reported, since discordance with absolute values may lead to misinterpretation of CBC data. Current Interpretive Data was last revised on 2017. Imm gran pct 2.9 % [facility] Comment: Interpretive Data Percent cell count reference ranges are not reported, since discordance with absolute values may lead to misinterpretation of CBC data. Current Interpretive Data was last revised on 2017. Lymphocyte pct 8.9 % [facility] Comment: Interpretive Data Percent cell count reference ranges are not reported, since discordance with absolute values may lead to misinterpretation of CBC data. Current Interpretive Data was last revised on 2017. Monocyte pct 7.8 % [facility] Comment: Interpretive Data Percent cell count reference ranges are not reported, since discordance with absolute values may lead to misinterpretation of CBC data. Current Interpretive Data was last revised on 2017. Eosinophil pct 0.8 % [facility] Comment: Interpretive Data Percent cell count reference ranges are not reported, since discordance with absolute values may lead to misinterpretation of CBC data. Current Interpretive Data was last revised on 2017. Basophil pct 0.3 % [facility] Comment: Interpretive Data Percent cell count reference ranges are not reported, since discordance with absolute values may lead to misinterpretation of CBC data. Current Interpretive Data was last revised on 2017. Blood 08/07/2024 6:05 AM CDT 08/07/2024 6:22 AM CDT us Royal Weiss MD LAB BLOOD ORDERABLES Florinda hanson Result [facility] Department [place] [address] * (ABNORMAL) CBC with auto differential (08/07/2024 6:05 AM CDT) Pathologist [facility] WBC 20.96(H) 3.80 - 9.90 K/cumm Hgb 8.1(L) 11.9 - 15.5 g/dL [facility] Hct 23.8(L) 35.6 - 45.5 % [facility] Plt 319 150 - 400 K/cumm [facility] MPV 12.0 9.1 - 12.3 fL [facility] RBC 3.13(L) 3.90 - 5.20 M/cumm [facility] MCV 76.0(L) 81.3 - 96.4 fL [facility] MCH 25.9(L) 27.1 - 33.3 pg [facility] MCHC 34.0 32.3 - 35.7 g/dL [facility] RDW CV 17.2(H) 11.1 - 14.9 % [facility] RDW SD 47.2 35.7 - 48.1 fL [facility] NRBC abs 0.00 0.00 - 0.01 K/cumm [facility] Morphologic Screen Results confirmed by manual morphology review. [facility] Blood 08/07/2024 6:05 AM CDT 08/07/2024 6:22 AM CDT Royal Weiss MD LAB BLOOD ORDERABLES Edit ed Result - Final [facility] Department [place] [address] * (ABNORMAL) Erythrocyte sedimentation rate (08/07/2024 6:05 AM CDT) [facility] Erythrocyte sedimentation rate 94(H) 1 - 20 mm/hr Blood 08/07/2024 6:05 AM CDT 08/07/2024 6:26 AM CDT Royal Weiss MD LAB BLOOD ORDERABLES Florinda l Result Performing Organization Address [facility] Co de Phone Number [facility] [place] [address] * (ABNORMAL) CRP (acute phase) (08/07/2024 6:05 AM CDT) CRP 224.5(H) <=10.0 mg/L Comment:Repeated on Dilution Blood 08/07/2024 6:05 AM CDT 08/07/2024 6:22 AM CDT Royal Weiss MD LAB BLOOD ORDERABLES Florinda l Result Performing Organization Address [facility] de Phone Number [facility] [place] [address] * (ABNORMAL) Phosphorus (08/07/2024 6:05 AM CDT) Phosphorus, pl 8.8(H) 2.3 - 4.5 mg/dL Blood 08/07/2024 6:05 AM CDT 08/07/2024 6:22 AM CDT Royal Weiss MD LAB BLOOD ORDERABLES Florinda l Result Performing Organization Address [facility] Co de Phone Number [facility] Department [place] [address] * Magnesium (08/07/2024 6:05 AM CDT) Magnesium 2.3 1.4 - 2.5 mg/dL Blood 08/07/2024 6:05 AM CDT 08/07/2024 6:22 AM CDT Royal Weiss MD LAB BLOOD ORDERABLES Florinda l Result Performing Organization Address City/[facility] Co de Phone Number [facility] Department [place] [address] * (ABNORMAL) Basic metabolic panel (08/07/2024 6:05 AM CDT) Sodium 130(L) 135 - 145 mmol/L Potassium, pl 3.9 3.3 - 4.9 mmol/L [facility] Chloride 97 97 - 110 mmol/L [facility] CO2 19(L) 22 - 32 mmol/L [facility] Anion gap 14 2 - 15 mmol/L [facility] BUN 62(H) 6 - 25 mg/dL [facility] Creatinine 5.12(H) 0.60 - 1.10 mg/dL [facility] Glucose 104 70 - 199 mg/dL [facility] Comment: Interpretive Data Fasting glucose >/= 126 mg/dl is diagnostic for diabetes. Fasting is defined as no caloric intake for at least 8 hours. Fasting glucose between 100 mg/dl to 125 mg/dl is diagnostic of prediabetes. In a patient with classic symptoms of hyperglycemia or hyperglycemic crisis, a random glucose >/= 200 mg/dl is diagnostic for diabetes. In the absence of unequivocal hyperglycemia, results should be confirmed by repeat testing. The classification and Diagnosis of Diabetes Diabetes Care 2021; 46: S19-S40. Current interpretive data was last revised 2022. Calcium 6.9(L) 8.5 - 10.3 mg/dL [facility] Blood 08/07/2024 6:05 AM CDT 08/07/2024 6:22 AM CDT us Royal Weiss MD LAB BLOOD ORDERABLES Florinda l Result [facility] Department [place] [address] * Transfuse RBC (08/06/2024 11:46 PM CDT) Blood Royal Weiss MD BLOOD TRANSFUSION ORDERAB LES Final Result [facility] Department [place] [address] * Prepare RBC: 1 Units (08/06/2024 8:04 PM CDT) Pathologist [facility] Product code [id number] Unit Number [id number] [facility] Product Blood Type APOS [facility] Dispense Status PRESUMED TRANSFUSED [facility] Blood 08/06/2024 8:04 PM CDT 08/06/2024 8:04 PM CDT Narrative [facility] - 08/07/2024 4:00 PM CDT Are special requirements needed? (All products are leukoreduced and CMV- safe)- >No Date required:-[id number] LRRBC # of [id number] Reasons:-Hgb <7 g/dL} us Royal Weiss MD BLOOD BANK PRODUCT ORDERA BLES Final Result [facility] Department [place] [address] * ECG 12 lead (08/06/2024 7:36 PM CDT) Pathologist [facility] Ventricular Rate EKG/Min 70 BPM [facility] Atrial Rate 70 BPM [facility] MN-Interval (MSEC) 136 ms [facility] QRS-Interval (MSEC) 72 ms [facility] QT-Interval (MSEC) 362 ms [facility] QTc 390 ms [facility] P [place] -28 degrees [facility] R [place] 46 degrees [facility] T [place] 50 degrees [facility] Diagnosis Normal sinus rhythm with sinus arrhythmia Normal ECG When compared with ECG of 05-AUG-2024 23:21, Vent. rate has decreased BY 55 BPM Confirmed by BREANA VENTURA M.D ([id number]) on 08/07/2024 11:26:58 AM [facility] 08/06/2024 7:36 PM CDT 08/07/2024 11:26 AM CDT us Royal Weiss MD ECG ORDERABLES Final Res ult [facility] * (ABNORMAL) Differential, auto (08/06/2024 6:45 PM CDT) Neutrophil abs 12.89(H) 1.50 - 6.50 K/cumm Imm gran abs 0.61(H) 0.00 - 0.10 K/cumm [facility] Lymphocyte abs 1.83 0.80 - 3.30 K/cumm [facility] Monocyte abs 1.52(H) 0.20 - 0.80 K/cumm [facility] Eosinophil abs 0.13 0.00 - 0.50 K/cumm [facility] Basophil abs 0.11(H) 0.00 - 0.10 K/cumm [facility] Neutrophil pct 75.4 % [facility] Comment: Interpretive Data Percent cell count reference ranges are not reported, since discordance with absolute values may lead to misinterpretation of CBC data. Current Interpretive Data was last revised on 2017. Imm gran pct 3.6 % [facility] Comment: Interpretive Data Percent cell count reference ranges are not reported, since discordance with absolute values may lead to misinterpretation of CBC data. Current Interpretive Data was last revised on 2017. Lymphocyte pct 10.7 % [facility] Comment: Interpretive Data Percent cell count reference ranges are not reported, since discordance with absolute values may lead to misinterpretation of CBC data. Current Interpretive Data was last revised on 2017. Monocyte pct 8.9 % [facility] Comment: Interpretive Data Percent cell count reference ranges are not reported, since discordance with absolute values may lead to misinterpretation of CBC data. Current Interpretive Data was last revised on 2017. Eosinophil pct 0.8 % [facility] Comment: Interpretive Data Percent cell count reference ranges are not reported, since discordance with absolute values may lead to misinterpretation of CBC data. Current Interpretive Data was last revised on 2017. Basophil pct 0.6 % [facility] Comment: Interpretive Data Percent cell count reference ranges are not reported, since discordance with absolute values may lead to misinterpretation of CBC data. Current Interpretive Data was last revised on 2017. Blood 08/06/2024 6:45 PM CDT 08/06/2024 7:38 PM CDT Royal Weiss MD LAB BLOOD ORDERABLES Florinda hanson Result Performing Organization Address [facility] Co de Phone Number [facility] Department [place] [address] * (ABNORMAL) CBC with auto differential (08/06/2024 6:45 PM CDT) Pathologist [facility] WBC 17.09(H) 3.80 - 9.90 K/cumm Hgb 6.9(L) 11.9 - 15.5 g/dL [facility] Hct 19.5(L) 35.6 - 45.5 % [facility] Plt 289 150 - 400 K/cumm [facility] MPV 11.6 9.1 - 12.3 fL [facility] RBC 2.61(L) 3.90 - 5.20 M/cumm [facility] MCV 74.7(L) 81.3 - 96.4 fL [facility] MCH 26.4(L) 27.1 - 33.3 pg [facility] MCHC 35.4 32.3 - 35.7 g/dL [facility] RDW CV 17.5(H) 11.1 - 14.9 % [facility] RDW SD 46.9 35.7 - 48.1 fL [facility] NRBC abs 0.00 0.00 - 0.01 K/cumm [facility] Blood 08/06/2024 6:45 PM CDT 08/06/2024 7:38 PM CDT Royal Weiss MD LAB BLOOD ORDERABLES Florinda margie Result Performing Organization Address City/[facility]/ZIP Co de Phone Number [facility] Department [place] [address] * TRANSTHORACIC ECHO (TTE) COMPLETE W DOPPLER/CF WO CONTRAST W BUBBLE (08/06/2024 4:54 PM CDT) LV EF 60-65 % CONS SCIMAGE Anatomical Region Laterality Modality Ultrasound 08/06/2024 3:24 PM CDT Narrative 08/06/2024 5:34 PM CDT [facility] Cardiac [place] [address] Transthoracic Echocardiographic Report Patient Name: TIFFANY MILLER T : 1995 (28y 11m) Gender: F Study Date: 08/06/2024 03:24:38 PM Ht(Inch): 67 Wt(Lb): 169.97 BSA: 1.91 Occupational Health Physician: Timothy Gonzalez [facility] Location: [id number] Order Provider: ROYAL WEISS Heart Rate: 112 BMI: 26.62 BP: 115 / 66 Ref Provider: ROYAL WEISS PROCEDURES: Echocardiographic Report: Transthoracic complete echo with strain imaging, 2D, spectral and tissue Doppler, color flow Doppler, M-mode. Additional Procedures: Agitated saline bubble study. Contrast: Patient refused contrast. INDICATIONS: TV endocarditis. CONCLUSIONS: 1. Normal left ventricular size based on volume index. Normal LV wall thickness. Normal left ventricular systolic function. The Ejection Fraction is visually estimated to be 60-65 %. Normal diastolic function. The average global longitudinal strain is normal. 2. Normal right ventricular size. Normal right ventricular systolic function. 3. The left atrium is normal in size. 4. Right atrial dilatation. 5. Agitated saline bubble study is late positive, suggestive of intrapulmonary shunting. Unable to do valsalva maneuver. 6. Mild tricuspid regurgitation. There is mobile echo density on likely the anterior leaflet of the tricuspid valve consistent with vegetation. Measuring 0.6 x 0.9 cm. 7. IVC is normal in size. The IVC was <2.1 cm and collapsibility >50%. (est. RA pressure 0-5 mmHg). The estimated RA pressure is 3 mmHg. 8. The estimated pulmonary artery systolic pressure is 34.4 mmHg. COMPARISONS: No previous study available for comparison. ATTESTATION: I have personally reviewed and interpreted this study without fellow or resident. - DISCLAIMER: The study images and the final report will be retained in the patient chart by the Echo Laboratory for the legally required time period. This chart constitutes the legal record of any testing performed. FINDINGS: Left Ventricle: Normal left ventricular size based on volume index. Normal LV wall thickness. Normal left ventricular systolic function. The Ejection Fraction is visually estimated to be 60-65 %. Normal diastolic function. The average global longitudinal strain is normal. The LV global strain is: -19.4 %. Right Ventricle: Normal right ventricular size. Normal right ventricular systolic function. Left Atrium: The left atrium is normal in size. Right Atrium: Right atrial dilatation. Atrial Septum: Agitated saline bubble study is late positive, suggestive of intrapulmonary shunting. Unable to do valsalva maneuver. Mitral Valve: Normal mitral valve structure. Mild mitral valve regurgitation. Aortic Valve: Trileaflet aortic valve. No aortic regurgitation. No aortic valve stenosis. Tricuspid Valve: Mild tricuspid regurgitation. There is mobile echo density on likely the anterior leaflet of the tricuspid valve consistent with vegetation. Measuring 0.6 x 0.9 cm. Pulmonic Valve: The pulmonic valve is not well visualized due to poor acoustic windows. Pericardium: No pericardial effusion. Aorta: Normal aortic root size at sinuses of Valsalva. Normal aortic root size when indexed. The ascending aorta is normal in size when indexed. IVC: IVC is normal in size. The IVC was <2.1 cm and collapsibility >50%. (est. RA pressure 0-5 mmHg). The estimated RA pressure is 3 mmHg. PASP: The estimated pulmonary artery systolic pressure is 34.4 mmHg. MEASUREMENTS: 2D/MM Value Range Doppler Value Range LVIDd 2D 4.81 cm [ 3.80 - 5.20 ] AV Peak Nathanael 1.6 m/s [ 1.0 - 1.7 ] LVIDs 2D 3.13 cm [ 2.20 - 3.50 ] AV Mean PG 5 mmHg IVSd 2D 0.78 cm [ 0.60 - 0.90 ] AV VTI 25.3 cm LVPWd 2D 0.80 cm [ 0.60 - 0.90 ] LVOT Diam 2.02 cm LV Mass Index 2D 67.36 g/m2 MV E Peak Nathanael 1.0 m/s [ 0.6 - 1.3 ] RWT 0.33 MV A Peak Nathanael 0.6 m/s [ 1.0 - 1.2 ] EDV Mod BP 91.27 ml [ 46.00 - 106.00 ] MV E/A 1.7 ratio [ 0.8 - 1.5 ] LV EDV Index 47.79 ml/m2 Med E` Nathanael 17.6 cm/sec [ 8.0 - 25.0 ] ESV Mod BP 35.22 ml [ 14.00 - 42.00 ] Lat E` Nathanael 19.0 cm/sec [ 10.0 - 25.0 ] EF Mod BP 61 % [ 54 - 74 ] Average E/E` 5.46 Visually Estimated EF 60-65 % RV S` 19.16 cm/sec LV GLS -19.4 % [ -25.0 - -18.0 ] TR Peak Nathanael 2.8 m/s [ 1.0 - 2.8 ] LA Volume Index 28.39 ml/m2 [ 16.00 - 34.00 ] TR Peak PG 31.4 mmHg RV Base Dimen 2D 3.5 cm [ 2.5 - 4.2 ] RA Pressure 3 mmHg TAPSE 2.98 cm [ 1.71 - 5.00 ] RVSP 34.40 mmHg RA Volume Index 28.82 ml/m2 IVC Diam 1.92 cm AoR Diam 2D 2.88 cm [ 2.70 - 3.70 ] Asc Ao Diam 2D 2.74 cm Electronically Signed By: Eric Leonard M.D. 08/06/2024 5:33:46 PM CDT Procedure Note Eric Leonard MD - 08/06/2024 [facility] Card[place] [address] Transthoracic Echocardiographic Report Patient Name: TIFFANY MILLER T : 1995 (28y 11m) Gender: F Study Date: 08/06/2024 03:24:38 PM Ht(Inch): 67 Wt(Lb): 169.97 BSA: 1.91 Occupational Health Physician: Timothy Gonzalez [facility] Location: [id number] Order Provider:ROYAL WEISS Heart Rate: 112 BMI: 26.62 BP: 115 / 66 Ref Provider: ROYAL WEISS PROCEDURES: Echocardiographic Report: Transthoracic complete echo with strain imaging,2D, spectral and tissue Doppler, color flow Doppler, M-mode. Additional Procedures: Agitated saline bubble study. Contrast: Patient refused contrast. INDICATIONS: TV endocarditis. CONCLUSIONS: 1. Normal left ventricular size based on volume index. Normal LV wallthickness. Normal left ventricular systolic function. The Ejection Fraction is visuallyestimated to be 60-65 %. Normal diastolic function. The average global longitudinal strainis normal. 2. Normal right ventricular size. Normal right ventricular systolicfunction. 3. The left atrium is normal in size. 4. Right atrial dilatation. 5. Agitated saline bubble study is late positive, suggestive ofintrapulmonary shunting. Unable to do valsalva maneuver. 6. Mild tricuspid regurgitation. There is mobile echo density on likelythe anterior leaflet of the tricuspid valve consistent with vegetation. Measuring 0.6 x0.9 cm. 7. IVC is normal in size. The IVC was <2.1 cm and collapsibility >50%.(est. RA pressure 0-5 mmHg). The estimated RA pressure is 3 mmHg. 8. The estimated pulmonary artery systolic pressure is 34.4 mmHg. COMPARISONS: No previous study available for comparison. ATTESTATION: I have personally reviewed and interpreted this study without fellow orresident. - DISCLAIMER: The study images and the final report will be retained in the patientchart by the Echo Laboratory for the legally required time period. This chart constitutesthe legal record of any testing performed. FINDINGS: Left Ventricle: Normal left ventricular size based on volume index. NormalLV wall thickness. Normal left ventricular systolic function. The EjectionFraction is visually estimated to be 60-65 %. Normal diastolic function. The average globallongitudinal strain is normal. The LV global strain is: -19.4 %. Right Ventricle: Normal right ventricular size. Normal right ventricularsystolic function. Left Atrium: The left atrium is normal in size. Right Atrium: Right atrial dilatation. Atrial Septum: Agitated saline bubble study is late positive, suggestiveof intrapulmonary shunting. Unable to do valsalva maneuver. Mitral Valve: Normal mitral valve structure. Mild mitral valveregurgitation. Aortic Valve: Trileaflet aortic valve. No aortic regurgitation. No aorticvalve stenosis. Tricuspid Valve: Mild tricuspid regurgitation. There is mobile echodensity on likely the anterior leaflet of the tricuspid valve consistent with vegetation.Measuring 0.6 x 0.9 cm. Pulmonic Valve: The pulmonic valve is not well visualized due to pooracoustic windows. Pericardium: No pericardial effusion. Aorta: Normal aortic root size at sinuses of Valsalva. Normal aortic rootsize when indexed. The ascending aorta is normal in size when indexed. IVC: IVC is normal in size. The IVC was <2.1 cm and collapsibility >50%.(est. RA pressure 0-5 mmHg). The estimated RA pressure is 3 mmHg. PASP: The estimated pulmonary artery systolic pressure is 34.4 mmHg. MEASUREMENTS: 2D/MM Value Range DopplerValue Range LVIDd 2D 4.81 cm [ 3.80 - 5.20 ] AV Peak Vel1.6 m/s [ 1.0 - 1.7 ] LVIDs 2D 3.13 cm [ 2.20 - 3.50 ] AV Mean PG5 mmHg IVSd 2D 0.78 cm [ 0.60 - 0.90 ] AV VTI25.3 cm LVPWd 2D 0.80 cm [ 0.60 - 0.90 ] LVOT Diam2.02 cm LV Mass Index 2D 67.36 g/m2 MV E PeakVel 1.0 m/s [ 0.6 - 1.3 ] RWT 0.33 MV A PeakVel 0.6 m/s [ 1.0 - 1.2 ] EDV Mod BP 91.27 ml [ 46.00 - 106.00 ] MV E/A1.7 ratio [ 0.8 - 1.5 ] LV EDV Index 47.79 ml/m2 Med E` Vel17.6 cm/sec [ 8.0 - 25.0 ] ESV Mod BP 35.22 ml [ 14.00 - 42.00 ] Lat E` Vel19.0 cm/sec [ 10.0 - 25.0 ] EF Mod BP 61 % [ 54 - 74 ] Average E/E`5.46 Visually Estimated EF 60-65 % RV S`19.16 cm/sec LV GLS -19.4 % [ -25.0 - -18.0 ] TR Peak Vel2.8 m/s [ 1.0 - 2.8 ] LA Volume Index 28.39 ml/m2 [ 16.00 - 34.00 ] TR Peak PG31.4 mmHg RV Base Dimen 2D 3.5 cm [ 2.5 - 4.2 ] RA Pressure3 mmHg TAPSE 2.98 cm [ 1.71 - 5.00 ] RVSP34.40 mmHg RA Volume Index28.82 ml/m2 IVC Diam1.92 cm AoR Diam 2D 2.88 cm [ 2.70 - 3.70 ] Asc Ao Diam 2D2.74 cm Electronically Signed By: Eric Leonard M.D. 08/06/2024 5:33:46 PM CDT Royal Weiss MD CV ECHO PROCEDURES Final Result * Transfuse RBC (08/06/2024 11:23 AM CDT) Blood Royal Weiss MD BLOOD TRANSFUSION ORDERAB LES Final Result Performing Organization Address [facility] Co de Phone Number [facility] Department [place] [address] * Prepare RBC: 1 Units (08/06/2024 7:43 AM CDT) [facility] Product code [id number] Unit Number [id number] * [facility] Product Blood Type APOS [facility] Dispense Status PRESUMED TRANSFUSED [facility] Blood 08/06/2024 7:43 AM CDT 08/06/2024 7:43 AM CDT Narrative [facility] - 08/06/2024 9:01 PM CDT Are special requirements needed? (All products are leukoreduced and CMV- safe)- >No Date required:-[id number] LRRBC # of [id number] Reasons:-Hgb <7 g/dL} Royal Weiss MD BLOOD BANK PRODUCT ORDERA BLES Final Result Performing Organization Address [facility] Co de Phone Number [facility] Department [place] [address] * (ABNORMAL) Hemoglobin and hematocrit (08/06/2024 6:46 AM CDT) [facility] Hgb 6.4(C) 11.9 - 15.5 g/dL Comment:This result has been called to Sheyla Zaman RN by [email or web address] on 08/06/2024 07:28:25, and has been read back. Hct 19.1(L) 35.6 - 45.5 % [facility] Blood 08/06/2024 6:46 AM CDT 08/06/2024 6:55 AM CDT Royal Weiss MD LAB BLOOD ORDERABLES Florinda l Result Performing Organization Address [facility] [facility] de Phone Number [facility] [place] [address] * aPTT (08/06/2024 6:46 AM CDT) aPTT 33 28 - 38 sec Comment: Interpretive Data Heparin therapeutic range: 66.0 - 100.0 seconds. Range based on correlation with therapeutic heparin activity range of 0.3 - 0.7 Units/mL. Current interpretive data was last revised on 2023. Blood 08/06/2024 6:46 AM CDT 08/06/2024 7:12 AM CDT Royal Weiss MD LAB BLOOD ORDERABLES Florinda l Result Performing Organization Address [facility] [place] [address] * (ABNORMAL) Protime-INR (08/06/2024 6:46 AM CDT) PT 16.7(H) 9.7 - 13.0 sec INR 1.53(H) 0.90 - 1.20 [facility] Comment: Interpretive data Oral anticoagulant therapeutic ranges: Venous thromboembolism prophylaxis or treatment: 2.0-3.0 CARDIOLOGY Standard range: 2.0-3.0 High-intensity range: 2.5-3.5 Refer to indication-specific guidelines for appropriate target ranges for prosthetic heart valve replacement. Current interpretive data was last revised on 2019. Blood 08/06/2024 6:46 AM CDT 08/06/2024 7:12 AM CDT Royal Weiss MD LAB BLOOD ORDERABLES Florinda l Result Performing Organization Address [facility] Co de Phone Number [facility] [place] [address] * Fibrinogen (08/06/2024 6:46 AM CDT) Fibrinogen 372 170 - 400 mg/dL Blood 08/06/2024 6:46 AM CDT 08/06/2024 7:12 AM CDT Royal Weiss MD LAB BLOOD ORDERABLES Florinda l Result Performing Organization Address [facility] Co de Phone Number [facility] [place] [address] * hCG, blood, quantitative (08/06/2024 6:46 AM CDT) Pathologist [facility] hCG, quant <5.0 0.0 - 5.0 IUnits/L Comment: Interpretive Data Male: < 5 IU/L Non- premenopausal Female: <5 IU/L The Noa hCG Beta Quant assay procedure was used. Results from different manufacturers or methods may not be comparable. Serial testing should be performed using the same method. Interpretive Data was last revised on 2023 Blood 08/06/2024 6:46 AM CDT 08/06/2024 6:55 AM CDT Royal Weiss MD LAB BLOOD ORDERABLES Florinda l Result Performing Organization Address [facility] Co de Phone Number [facility] [place] [address] * (ABNORMAL) Lactate dehydrogenase (LD) (08/06/2024 6:46 AM CDT) Pathologist [facility] Lactate dehydrogenase (LDH) 339(H) 100 - 250 Units/L Blood 08/06/2024 6:46 AM CDT 08/06/2024 6:55 AM CDT Royal Weiss MD LAB BLOOD ORDERABLES Florinda l Result Performing Organization Address City/[facility] Co de Phone Number [facility] [place] [address] * (ABNORMAL) Haptoglobin (08/06/2024 6:46 AM CDT) Haptoglobin 325.0(H) 30.0 - 200.0 mg/dL Blood 08/06/2024 6:46 AM CDT 08/06/2024 6:55 AM CDT us Royal Weiss MD LAB BLOOD ORDERABLES Florinda l Result Performing Organization Address [facility] Co de Phone Number [facility] [place] [address] * Oxyhemoglobin, central venous (08/06/2024 4:58 AM CDT) Oxyhemoglobin, CV 86.8 % Comment: Interpretive Data No reference range established. Current interpretive data was last revised 2019. Blood 08/06/2024 4:58 AM CDT 08/06/2024 5:34 AM CDT Royal Weiss MD LAB BLOOD ORDERABLES Florinda l Result Performing Organization Address [facility] de Phone Number [facility] [place] [address] * Sepsis Lactate w/ Reflex (08/06/2024 4:58 AM CDT) Sepsis Lactate 1.6 0.7 - 2.0 mmol/L Blood 08/06/2024 4:58 AM CDT 08/06/2024 5:34 AM CDT Dawn Mcmanus MD LAB BLOOD ORDERABLES Fin al Result Performing Organization Address [facility] Co de Phone Number [facility] [place] [address] * (ABNORMAL) eGFR (08/06/2024 4:58 AM CDT) [facility] eGFR 15(L) >=60 mL/min/1. 73 m2 Comment: Interpretive Data Reference Interval Normal >/= 90 mL/min/1.73m2 Mildly decreased* 60 - 89 mL/min/1.73m2 Mildly to moderately decreased 45 - 59 mL/min/1.73m2 Moderately to severely decreased 30 - 44 mL/min/1.73m2 Severely decreased 15 - 29 mL/min/1.73m2 Kidney Failure < 15 mL/min/1.73m2 *Relative to young adult level Estimated glomerular filtration rate is determined by the 2020 CKD-EPI equation recommended by the National Kidney Foundation (A Unifying Approach to GFR Estimation: Recommendations of the NKF-ASK Task Force on Reassessing the Inclusion of Race in Diagnosing Kidney Disease, JASN 2020). The CKD-EPI equation should not be used for patients with unstable renal function and has not been validated in children and those over 70. Current interpretive data was last reviewed 2021. Blood 08/06/2024 4:58 AM CDT 08/06/2024 5:39 AM CDT us Royal Weiss MD LAB BLOOD ORDERABLES Florinda hanson Result [facility] Department [place] [address] * (ABNORMAL) Differential, auto (08/06/2024 4:58 AM CDT) [facility] Neutrophil abs 18.99(H) 1.50 - 6.50 K/cumm Imm gran abs 1.08(H) 0.00 - 0.10 K/cumm [facility] Lymphocyte abs 1.55 0.80 - 3.30 K/cumm [facility] Monocyte abs 1.69(H) 0.20 - 0.80 K/cumm [facility] Eosinophil abs 0.17 0.00 - 0.50 K/cumm [facility] Basophil abs 0.13(H) 0.00 - 0.10 K/cumm [facility] Neutrophil pct 80.3 % [facility] Comment: Interpretive Data Percent cell count reference ranges are not reported, since discordance with absolute values may lead to misinterpretation of CBC data. Current Interpretive Data was last revised on 2017. Imm gran pct 4.6 % [facility] Comment: Interpretive Data Percent cell count reference ranges are not reported, since discordance with absolute values may lead to misinterpretation of CBC data. Current Interpretive Data was last revised on 2017. Lymphocyte pct 6.6 % [facility] Comment: Interpretive Data Percent cell count reference ranges are not reported, since discordance with absolute values may lead to misinterpretation of CBC data. Current Interpretive Data was last revised on 2017. Monocyte pct 7.2 % [facility] Comment: Interpretive Data Percent cell count reference ranges are not reported, since discordance with absolute values may lead to misinterpretation of CBC data. Current Interpretive Data was last revised on 2017. Eosinophil pct 0.7 % [facility] Comment: Interpretive Data Percent cell count reference ranges are not reported, since discordance with absolute values may lead to misinterpretation of CBC data. Current Interpretive Data was last revised on 2017. Basophil pct 0.6 % [facility] Comment: Interpretive Data Percent cell count reference ranges are not reported, since discordance with absolute values may lead to misinterpretation of CBC data. Current Interpretive Data was last revised on 2017. Blood 08/06/2024 4:58 AM CDT 08/06/2024 5:39 AM CDT Royal Weiss MD LAB BLOOD ORDERABLES Florinda hanson Result [facility] Department [place] [address] * HIV 1/2 Antibody plus p24 Antigen Blood (08/06/2024 4:58 AM CDT) HIV 1/2 ab + p24 ag Nonreactive Nonreactive Comment:Nonreactive for HIV- 1 antigen and HIV-1/HIV-2 antibodies. No laboratory evidence of HIV infection. If acute HIV infection is suspected, consider testing for HIV-1 RNA. Current interpretive data was last revised on 21. Blood 08/06/2024 4:58 AM CDT 08/06/2024 5:38 AM CDT Royal Weiss MD LAB MICROBIOLOGY - GENERA L ORDERABLES Final Result [facility] Department [place] [address] * (ABNORMAL) CBC with auto differential (08/06/2024 4:58 AM CDT) WBC 23.61(H) 3.80 - 9.90 K/cumm Hgb 6.6(L) 11.9 - 15.5 g/dL [facility] Hct 19.7(L) 35.6 - 45.5 % [facility] Plt 280 150 - 400 K/cumm [facility] MPV 11.8 9.1 - 12.3 fL [facility] RBC 2.63(L) 3.90 - 5.20 M/cumm [facility] MCV 74.9(L) 81.3 - 96.4 fL [facility] MCH 25.1(L) 27.1 - 33.3 pg [facility] MCHC 33.5 32.3 - 35.7 g/dL [facility] RDW CV 17.7(H) 11.1 - 14.9 % [facility] RDW SD 47.1 35.7 - 48.1 fL [facility] NRBC abs 0.00 0.00 - 0.01 K/cumm [facility] Morphologic Screen Results confirmed by manual morphology review. [facility] Blood 08/06/2024 4:58 AM CDT 08/06/2024 5:39 AM CDT Royal Weiss MD LAB BLOOD ORDERABLES Edit ed Result - Final [facility] Department [place] [address] * Lactate, whole blood (08/06/2024 4:58 AM CDT) [facility] Lactate, bld 1.6 0.7 - 2.0 mmol/L Blood 08/06/2024 4:58 AM CDT 08/06/2024 5:34 AM CDT Royal Weiss MD LAB BLOOD ORDERABLES Floirnda l Result Performing Organization Address [facility] de Phone Number [facility] [place] [address] * (ABNORMAL) Hepatitis panel, acute Blood (08/06/2024 4:58 AM CDT) [facility] Hep A IgM Nonreactive Nonreactive Hep B core IgM Nonreactive Nonreactive [facility] Hep C Ab Reactive(A) Nonreactive [facility] Comment: Reactive for HCV antibodies. This may represent current or past HCV infection. Supplemental molecular testing will be automatically performed to determine current infection status in accordance with current CDC screening recommendations. Current interpretive data was last revised on 21 HepBsAg Nonreactive Nonreactive [facility] Blood 08/06/2024 4:58 AM CDT 08/06/2024 5:38 AM CDT Royal Weiss MD LAB MICROBIOLOGY - GENERA L ORDERABLES Final Result Performing Organization Address [facility] de Phone Number [facility] [place] [address] * Hepatitis C (HCV) RNA PCR, quantitative Blood (08/06/2024 4:58 AM CDT) [facility] HCV RNA result Not Detected [facility] Comment: The quantifiable range of this assay is 15 IU/mL to 100,000,000 IU/mL (1.18 log IU/mL to 8.00 log IU/mL). Testing was performed by the [employer] 6800 HCV Test ([employer] Testing performed at [facility] Current Interpretive Data was last revised on 2020 Blood 08/06/2024 4:58 AM CDT 08/06/2024 5:44 AM CDT Royal Weiss MD LAB MICROBIOLOGY - GENERA L ORDERABLES Final Result Performing Organization Address [facility] Co de Phone Number [facility] [place] [address] [facility] * RPR Blood (08/06/2024 4:58 AM CDT) Pathologist [facility] RPR Nonreactive Nonreactive Blood 08/06/2024 4:58 AM CDT 08/06/2024 5:38 AM CDT Royal Weiss MD LAB MICROBIOLOGY - GENERA L ORDERABLES Final Result Performing Organization Address [facility] de Phone Number [facility] [place] [address] * Type and screen (08/06/2024 4:58 AM CDT) Pathologist [facility] Marybeth, indirect Negative ABO Rh A Positive [facility] Blood 08/06/2024 4:58 AM CDT 08/06/2024 5:50 AM CDT Narrative [facility] - 08/06/2024 6:55 AM CDT Has the patient had Daratumumab or Isatuximab in the past 6 months?->Unknown Jose Rafael Lara Chi, MD LAB BLOOD BANK TEST ORDER MARTINEZ Final Result Performing Organization Address [facility] [place] [place] [address] * (ABNORMAL) Phosphorus (08/06/2024 4:58 AM CDT) Pathologist [facility] Phosphorus, pl 7.0(H) 2.3 - 4.5 mg/dL Blood 08/06/2024 4:58 AM CDT 08/06/2024 5:39 AM CDT Royal Weiss MD LAB BLOOD ORDERABLES Florinda l Result Performing Organization Address [facility] Co de Phone Number [facility] [place] [address] * Magnesium (08/06/2024 4:58 AM CDT) [facility] Magnesium 2.2 1.4 - 2.5 mg/dL Blood 08/06/2024 4:58 AM CDT 08/06/2024 5:39 AM CDT Royal Weiss MD LAB BLOOD ORDERABLES Florinda l Result Performing Organization Address [facility] de Phone Number [facility] [place] [address] * (ABNORMAL) Basic metabolic panel (08/06/2024 4:58 AM CDT) [facility] Sodium 127(L) 135 - 145 mmol/L Potassium, pl 3.7 3.3 - 4.9 mmol/L [facility] Chloride 95(L) 97 - 110 mmol/L [facility] CO2 21(L) 22 - 32 mmol/L [facility] Anion gap 11 2 - 15 mmol/L [facility] BUN 54(H) 6 - 25 mg/dL [facility] Creatinine 4.05(H) 0.60 - 1.10 mg/dL [facility] Glucose 119 70 - 199 mg/dL [facility] Comment: Interpretive Data Fasting glucose >/= 126 mg/dl is diagnostic for diabetes. Fasting is defined as no caloric intake for at least 8 hours. Fasting glucose between 100 mg/dl to 125 mg/dl is diagnostic of prediabetes. In a patient with classic symptoms of hyperglycemia or hyperglycemic crisis, a random glucose >/= 200 mg/dl is diagnostic for diabetes. In the absence of unequivocal hyperglycemia, results should be confirmed by repeat testing. The classification and Diagnosis of Diabetes Diabetes Care 2021; 46: S19-S40. Current interpretive data was last revised 2022. Calcium 7.0(L) 8.5 - 10.3 mg/dL [facility] Blood 08/06/2024 4:5 8 AM CDT 08/06/2024 5:39 AM CDT us Royal Weiss MD LAB BLOOD ORDERABLES Florinda l Result [facility] Department [place] [address] * [place] INSJ NON-TUNNELED CENTRAL VENOUS CATH AGE 5 YR/> (08/06/2024 4:18 AM CDT) Narrative Jose Rafael Montes MD - 08/06/2024 4:18 AM CDT Jose Rafael Montes MD 08/06/2024 11:12 AM Central Line Insertion Date/Time: 08/06/2024 4:18 AM Performed by: Lauren Garg MD Authorized by: Lauren Garg MD [place] Protocol: RN Notified of Procedure: yes Informed consent: Risks, benefits, alternatives discussed and patient/retail 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 agrees and accepts Patient's stated name/ matches armband: Yes Allergies confirmed: yes Consent form signed, dated, timed; matches correct patient, intended procedure and site: Yes Imaging: Pertinent imaging reviewed, correctly oriented and match to patient identifiers Lab/Diag test results: Pertinent lab/diag tests reviewed and match to patient identifiers Supplies, devices and special equipment are available: yes Site/side marked: yes Immediately prior to the procedure a time out was called: a verbal verification by the procedure participants confirmed correct patient identity, correct site/side marked and visible (if applicable); agreement on procedure to be done; and correct patient positioning Have non- routine considerations been assessed?: Yes Indications: Vascular access and administer vasoactive medications Anesthesia (see MAR for exact dosage) Anesthesia method: Local infiltration Local anesthetic: Lidocaine 1% Patient position: Flat Skin preparation: Skin prepped with 2% chlorhexidine Provider preparation: Cap, full body drape, gloves, gown, mask and handwashing Location: Right internal jugular Technique: Landmarks identified Ultrasound guidance: Pre-procedure diagnostic and real-time needle guidance Assessment: Blood return through all ports, free fluid flow and placement verified by x-ray Catheter type: Triple lumen Catheter placed through introducer: Single Needle inserted, vein idenitified then guidewire inserted easily into vein: Yes Number of attempts: 1 Successful placement: Yes Catheter secured at (cm): 17 Catheter length (cm): 20 Line securement: Line sutured, dressing applied and securement device Patient tolerance: Patient tolerated the procedure well with no immediate complications Post Procedure Debrief: All guidewires, needles, sponges or other items are accounted for: yes Any special post procedure monitoring, testing or other considerations: yes (enter/request order) us Lauren Raya MD IN CLINIC/BEDSIDE ORD ERABLES Final Result * XR Chest 1 View (08/06/2024 3:56 AM CDT) Anatomical Region Laterality Modality Body, Chest N/A Digital Radiogra phy 08/06/2024 8:37 AM CDT Impressions 08/06/2024 9:03 AM CDT No prior radiographs available for comparison. Right internal jugular central venous catheter terminates in the superior vena cava. Severe extensive multifocal areas of airspace consolidation are seen and some of which appears slightly nodular. Findings are concerning for extremely extensive septic emboli . . Small bilateral pleural effusions with associated atelectasis. Cardiomediastinal silhouette is within normal limits. No pneumothorax. Dictated by: Kirk Sellers MD The radiology attending physician has personally reviewed this study, and had reviewed and/or edited this written report and agrees with it. Electronically signed by: Gwendolyn Galdamez M.D. Narrative 08/06/2024 9:03 AM CDT EXAMINATION: 1 view chest radiograph Procedure Note Gwendolyn Galdamez MD - 08/06/2024 EXAMINATION: 1 view chest radiograph IMPRESSION: No prior radiographs available for comparison. Right internal jugular central venous catheter terminates in the superior vena cava. Severe extensive multifocal areas of airspace consolidation are seen and some of which appears slightly nodular. Findings are concerning for extremely extensive septic emboli . . Small bilateral pleural effusions with associated atelectasis. Cardiomediastinal silhouette is within normal limits. No pneumothorax. Dictated by: Kirk Sellers MD The radiology attending physician has personally reviewed this study, and had reviewed and/or edited this written report and agrees with it. Electronically signed by: Gwendolyn Galdamez M.D. us Royal Weiss MD IMG XR PROCEDURES Final R esult * US Kidney Complete (08/06/2024 3:20 AM CDT) Anatomical Region Laterality Modality Kidney N/A Ultrasound 08/06/2024 6:36 AM CDT Impressions 08/06/2024 6:36 AM CDT 1. Nephromegaly with increased echogenicity consistent with renal parenchymal disease. 2. Left pleural effusion. Electronically signed by: Jaya Orozco M.D. Narrative 08/06/2024 6:36 AM CDT EXAMINATION: COMPLETE RENAL SONOGRAM HISTORY: Acute kidney injury. COMPARISON: None FINDINGS: Kidneys: The echogenicity of both kidneys is increased. The kidneys are increased in size. The right kidney measures 15.1 cm in length, and the left, 14.9 cm in length. There is no hydronephrosis in either kidney. There are no renal calculi visualized. Bladder: The urinary bladder is normal Other: There is a left pleural effusion. Procedure Note Jaya Orozco MD - 08/06/2024 EXAMINATION: COMPLETE RENAL SONOGRAM HISTORY: Acute kidney injury. COMPARISON: None FINDINGS: Kidneys: The echogenicity of both kidneys is increased. The kidneys are increased in size. The right kidney measures 15.1 cm in length, and the left, 14.9 cm in length. There is no hydronephrosis in either kidney. There are no renal calculi visualized. Bladder: The urinary bladder is normal Other: There is a left pleural effusion. IMPRESSION: 1. Nephromegaly with increased echogenicity consistent with renal parenchymal disease. 2. Left pleural effusion. Electronically signed by: Jaya Orozco M.D. us Royal Weiss MD IMG US PROCEDURES Final R esult * ECG 12 lead (08/05/2024 11:21 PM CDT) Ventricular Rate EKG/Min 125 BPM [facility] Atrial Rate 125 BPM [facility] MN-Interval (MSEC) 122 ms [facility] QRS-Interval (MSEC) 70 ms [facility] QT-Interval (MSEC) 308 ms [facility] QTc 444 ms [facility] P [place] 54 degrees [facility] R [place] 38 degrees [facility] T [place] 36 degrees [facility] Diagnosis Sinus tachycardia Possible Left atrial enlargement Nonspecific ST abnormality Abnormal ECG No previous ECGs available Confirmed by HAJA CORREA M.D ([id number]) on 08/06/2024 11:01:34 AM [facility] 08/05/2024 11:2 1 PM CDT 08/06/2024 11:01 AM CDT Jose Rafael Lara Chi, MD ECG ORDERABLES Final Res ult [facility] * [place] CRITICAL CARE ILL/INJURED PATIENT INIT 30-74 MIN (08/05/2024 10:39 PM CDT) Narrative Alli Matute MD - 08/05/2024 10:39 PM CDT Alli Matute MD 08/05/2024 10:39 PM Critical Care Performed by: Alli Matute MD Authorized by: Amando Briggs MD Critical care provider statement: As reflected in the history, physical exam, orders, notes, and/or MDM, I was personally present while the patient was critically ill and provided critical care services for 35 minutes, excluding time involved in separately billable procedures. Critical care was necessary to treat or prevent imminent or life-threatening deterioration of the following condition(s): unstable vital signs sepsis Critical care was time spent by me providing the following: continuous telemetry, continuous pulse oximetry, resuscitation with fluids, arterial puncture and interpretation of bedside monitors, imaging, and arterial/venous lab draws initiation and active titration of vasoactive medications I provided emergent necessary critical care medicine services to this patient. I ordered and reviewed test results and/or imaging studies. I spent time discussing the management of this critically ill patient with consultants and the medical staff. I spent time documenting in the medical record. I spent time discussing the management and therapeutic options for this critically ill patient with the patient themselves or with the appropriate designated surrogate decision-maker. I admitted this patient to an Intensive Care unit (ICU) and discussed management with the admitting team. us Amando Briggs MD IN CLINIC/BEDSIDE ORDERAB LES Final Result * [place] ARTL CATHJ/CANNULJ MNTR/TRANSFUSION SPX PRQ (08/05/2024 10:18 PM CDT) Narrative Alli Matute MD - 08/05/2024 10:18 PM CDT Alli Matute MD 08/05/2024 10:36 PM Arterial line Date/Time: 08/05/2024 10:18 PM Performed by: Alex Silveira MD Authorized by: Amando Briggs MD [place] Protocol: RN Notified of Procedure: yes Informed consent: Risks, benefits, alternatives discussed Patient's stated name/ matches armband: Yes Allergies confirmed: yes Consent form signed, dated, timed; matches correct patient, intended procedure and site: Yes Imaging: N/a Lab/Diag test results: N/a Supplies, devices and special equipment are available: yes Site/side marked: n/a Immediately prior to the procedure a time out was called: a verbal verification by the procedure participants confirmed correct patient identity, correct site/side marked and visible (if applicable); agreement on procedure to be done; and correct patient positioning Indications: Indications: hemodynamic monitoring Pre-procedure details: Skin preparation: 2% Chlorhexidine Preparation: Patient was prepped and draped in sterile fashion Sedation: Sedation used: no Anesthesia (see MAR for exact dosages): Anesthesia method: Local infiltration Local anesthetic: Lidocaine 1% Procedure details: Location: L radial Needle gauge: 20 G Placement technique: Seldinger and ultrasound guided Ultrasound guidance used for: Pre-procedure marking and real-time guidance Sterile ultrasound techniques: Sterile gel and sterile probe covers were used Number of attempts: 1 Post-procedure details: Post-procedure: Sutured and sterile dressing applied CMS: Normal Patient tolerance of procedure: Tolerated well, no immediate complications Post Procedure Debrief: All guidewires, needles, sponges or other items are accounted for: yes Any special post procedure monitoring, testing or other considerations: n/a All specimens identified, labeled and matched to patient identification: n/a Responsible libertarian for transporting specimen(s) to lab determined: n/a us Amando Briggs MD IN CLINIC/BEDSIDE ORDERAB LES Final Result * POCUS Other (08/05/2024 10:12 PM CDT) Anatomical Region Laterality Modality Other 08/05/2024 9:55 PM CDT Narrative 08/17/2024 7:34 PM CDT Performed by: Alex Silveira Procedural guidance: Exam Information: Exam type: Diagnostic Procedure type: Vascular access See procedure note in [facility] Electronically signed by Alex Silveira on Monday, August 05, 2024 at 10:22 PM I have reviewed the images & the resident's interpretation. I agree with the findings. Electronically signed by Dinora Kennedy on Saturday, August 17, 2024 at 7:34 PM I have reviewed the images & the resident's interpretation. I agree with the findings. Procedure Note Dinora Kennedy MD - 08/17/2024 Performed by: Alex Silveira Procedural guidance: Exam Information: Exam type: Diagnostic Procedure type: Vascular access See procedure note in Epic Electronically signed by Alex Silveira on Monday, August 05, 2024 at 10:22PM I have reviewed the images & the resident's interpretation. I agree withthe findings. Electronically signed by Dinora Kennedy on Saturday, August 17, 2024 at 7:34PM I have reviewed the images & the resident's interpretation. I agree withthe findings. us Alli Matute MD POCUS ORDERABLES Final Result * (ABNORMAL) Fentanyl Confirmation, Urine (08/05/2024 9:25 PM CDT) Fentanyl Conf, Ur Confirmed Positive(A) Cutoff 0.3ng/mL Acetylfentanyl Conf, Ur Confirmed Positive(A) Cutoff 1 ng/mL [facility] Acrylfentanyl Conf, Ur Does Not Confirm Cutoff 1 ng/mL [facility] Furanylfentanyl Conf, Ur Does Not Confirm Cutoff 1 ng/mL [facility] Fentanyl Metabolite (Norfentanyl) Conf, Ur Confirmed Positive(A) CutOff 5 ng/mL [facility] Xylazine MS Confirmed Positive(A) Cutoff 1 ng/mL [facility] Comment: Interpretive Data This test detects the presence or absence of drug compounds using LC Tandem mass spectrometry and is not intended to assess compliance with prescribed medications. While this test is highly specific, false positive and false negative results may occur in very rare circumstances. Contact the laboratory for consultation, if needed. Performance characteristics were determined by the [facility] in a manner consistent with CLIA requirement and has not been cleared or approved by the U.S. Food and Drug Administration. Current interpretive data was last revised 2020. Urine 08/05/2024 9:25 PM CDT 08/05/2024 9:52 PM CDT Brielle Monique MD LAB URINE ORDERABLES Fin al Result [facility] Department [place] [address] * (ABNORMAL) Drugs of Abuse Screen, Urine with Reflex Confirmation (08/05/2024 9:25 PM CDT) Amphetamine, ur Screen Positive, presumptive (A) CutOff 500ng/mL Comment: Interpretive Data - Amphetamines: Samples containing greater than 500 ng/mL d-methamphetamine or other cross-reacting amphetamine compounds are reported as positive. Amphetamine immunoassays are subject to significant false positive rates due to cross-reactivity of non-amphetamine drugs. Confirmatory testing required for definitive results. Current Interpretive Data was last reviewed 2022. Barbiturates, ur Not Detected CutOff 200ng/mL [facility] Comment: Interpretive Data - Barbiturates: Samples containing greater than 200 ng/mL secobarbital or other cross-reacting barbiturate compounds are reported as positive. False positive and false negative results are possible. Confirmatory testing required for definitive results. Current Interpretive Data was last reviewed 2022. Benzodiazepines, ur Screen Positive, presumptive (A) CutOff 100ng/mL [facility] Comment: Interpretive Data - Benzodiazepines: Samples containing greater than 100 ng/mL nordiazepam or other cross-reacting compounds are reported as positive. False positive and false negative results are possible. Confirmatory testing required for definitive results. Current Interpretive Data was last reviewed 2022. Cannabinoids, ur Screen Positive, presumptive (A) CutOff 50 ng/mL [facility] Comment: Interpretive Data - Cannabinoids: Samples containing greater than 50 ng/mL delta-9 THC -COOH or other cross- reacting compounds are reported as positive. False positive and false negative results are possible. Confirmatory testing required for definitive results. Current Interpretive Data was last reviewed 2022. Cocaine, ur Not Detected CutOff 150ng/mL [facility] Comment: Interpretive Data - Cocaine: Samples containing greater than 150 ng/mL benzoylecgonine or other cross- reacting compounds are reported as positive. False positive and false negative results are possible. Confirmatory testing required for definitive results. Current Interpretive Data was last reviewed 2022. Fentanyl, Ur Screen Positive, presumptive (A) CutOff 5 ng/mL [facility] Comment: Interpretive Data - Fentanyl: Samples containing greater than 5 ng/mL norfentanyl, fentanyl, or other cross-reacting fentanyl compounds are reported as positive. False positive and false negative results are possible. Confirmatory testing required for definitive results. Current Interpretive Data was last reviewed 2023. Methadone, ur Not Detected CutOff 300ng/mL [facility] Comment: Interpretive Data - Methadone: Samples containing greater than 300 ng/mL d,l-methadone or other cross-reacting compounds are reported as positive. False positive and false negative results are possible. Confirmatory testing required for definitive results. Current Interpretive Data was last reviewed 2022. Opiates, ur Not Detected CutOff 300ng/mL [facility] Comment: Interpretive Data - Opiates: Samples containing greater than 300 ng/mL morphine or other cross-reacting compounds are reported as positive. False positive and false negative results are possible. Confirmatory testing required for definitive results. Current Interpretive Data was last reviewed 2022. Oxycodone, ur Not Detected CutOff 100ng/mL [facility] [employer] [facility] [facility] Comment: Interpretive Data - Oxycodone: Samples containing greater than 100 ng/mL oxycodone or other cross-reacting compounds are reported as positive. False positive and false negative results are possible. Confirmatory testing required for definitive results. Current Interpretive Data was last reviewed 2022. Phencyclidine, ur Not Detected CutOff 25 ng/mL [facility] Comment: Interpretive Data - Phencyclidine: Samples containing greater than 25 ng/mL phencyclidine or other cross-reacting compounds are reported as positive. False positive and false negative results are possible. Confirmatory testing required for definitive results. Current Interpretive Data was last reviewed 2022. Urine Creatinine 198 mg/dL [facility] Comment: Interpretive Data Urine Creatinine: < 10 mg/dL is extremely dilute = or > 10 but < 20 mg/dL is dilute = or > 20 mg/dL is normal Current Interpretive Data was last revised on 2017. Urine 08/05/2024 9:25 PM CDT 08/05/2024 9:52 PM CDT Narrative [facility] - 08/05/2024 10:22 PM CDT Drug of Abuse screening is performed by immunoassay for medical purposes only. This is not to be used for Pain Management purposes. If Detected, confirmation testing will be performed for Amphetamines, Cocaine, Fentanyl, Methadone, Opiates, Oxycodone or Phencyclidine. Brielle Monique MD LAB URINE ORDERABLES Fin al Result [facility] Department [place] [address] * (ABNORMAL) Urinalysis reflex to microscopic and culture Urine (08/05/2024 9:25 PM CDT) Color, ur Cherise Yellow Clarity, ur Turbid(A) Clear [facility] Specific gravity, ur 1.024 1.003 - 1.030 [facility] pH, urine 6.0 [employer] [facility] Comment: Interpretive Data U rine pH is affected by diet, medications, systemic acid-base disturbances, and renal tubular function. pH may affect urinary stone formation. For example, urine pH below 6.0 may help reduce the tendency for calcium phosphate stones and pH greater than 6.0 may reduce the tendency for uric acid stone formation. Source: [facility] Current Interpretive Data was last revised on 2017 Protein, ur ql 3+(A) Negative [facility] Glucose, ur ql Trace(A) Negative [facility] Ketones, ur Negative Negative [facility] Bilirubin, ur Negative Negative [facility] Blood, ur 3+(A) Negative [facility] Urobilinogen, ur <2.0 <2.0 mg/dL [facility] Nitrite, ur Negative Negative [facility] Leukocyte esterase, ur 3+(A) Negative [facility] UA reflex comment Reflex to microscopic UA will be performed. [facility] Urine 08/05/2024 9:25 PM CDT 08/05/2024 9:32 PM CDT Brielle Monique MD LAB MICROBIOLOGY - [facility] AL ORDERABLES Final Result [facility] Department [place] [address] * (ABNORMAL) Amphetamine Confirmation, Urine (08/05/2024 9:25 PM CDT) Amphetamine Conf, Ur Confirmed Positive(A) CutOff 150ng/mL Methamphetamine Conf, Ur Confirmed Positive(A) CutOff 150ng/mL [facility] MDA Conf, Ur Does Not Confirm CutOff 150ng/mL [facility] MDMA Conf, Ur Does Not Confirm CutOff 50 ng/mL [facility] MDEA Conf, Ur Does Not Confirm CutOff 150ng/mL [facility] MBDB Conf, Ur Does Not Confirm CutOff 150ng/mL [facility] Comment: Interpretive Data This test detects the presence or absence of drug compounds using LC Tandem mass spectrometry. While this test is highly specific, false positive and false negative results may occur in very rare circumstances. Contact the laboratory for consultation, if needed. Performance characteristics were determined by the [facility] in a manner consistent with CLIA requirement and has not been cleared or approved by the U.S. Food and Drug Administration. Current interpretive data was last revised on 2020. Urine 08/05/2024 9:25 PM CDT 08/05/2024 9:52 PM CDT Brielle Monique MD LAB URINE ORDERABLES Fin al Result Performing Organization Address [facility] [place] [place] [address] * (ABNORMAL) Urinalysis, microscopic only (08/05/2024 9:25 PM CDT) WBC, ur >50(A) 0 - 5 /HPF RBC, ur >50(A) 0 - 2 /HPF [facility] Epithelial cells, squamous, ur 6-10(A) 0 - 5 /HPF [facility] Comment:Suggestive of contam ination. Consider recollection by clean catch. Bacteria, ur 4+(A) [facility] Culture Reflex Comment Reflex to urine culture will be performed. [facility] Urine 08/05/2024 9:25 PM CDT 08/05/2024 9:32 PM CDT Brielle Monique MD LAB URINE ORDERABLES Fin al Result Performing Organization Address [facility] [place] [address] * Urine culture Urine (08/05/2024 9:25 PM CDT) Report Final Report: Growth indicative of contamination with periurethral melissa. Please submit a new specimen with special attention given to the collection process and to prompt transport to the laboratory. Organism GROWTH INDICATES CONTAM WITH PERIURETHRAL MELISSA. [facility] Urine 08/05/2024 9:25 PM CDT 08/05/2024 11:10 PM CDT Narrative [facility] - 08/07/2024 11:38 AM CDT Urine culture reflexed based upon urinalysis results. Testing performed by [facility] ([phone]) us Brielle Monique MD LAB MICROBIOLOGY - GENER AL ORDERABLES Final Result Performing Organization Address [facility] Co de Phone Number [facility] [place] [address] * (ABNORMAL) Sepsis Lactate w/ Reflex (08/05/2024 8:51 PM CDT) Sepsis Lactate 9.0(C) 0.7 - 2.0 mmol/L Blood 08/05/2024 8:51 PM CDT 08/05/2024 8:56 PM CDT Dawn Mcmanus MD LAB BLOOD ORDERABLES Fin al Result Performing Organization Address [facility] Co de Phone Number [facility] [place] [address] * Critical Result Callback Chemistry (08/05/2024 8:51 PM CDT) Date Notified [id number] Time Notified 2101 [employer] [facility] [employer] [facility] [facility] TestName Sepsis Lactate [facility] Called/Read Back Brielle [facility] Credentials MD [facility] Called By CLAUDIA PRUITT Blood 08/05/2024 8:51 PM CDT 08/05/2024 8:56 PM CDT Dawn Mcmanus MD LAB BLOOD ORDERABLES Fin al Result Performing Organization Address [facility] [place] [address] * (ABNORMAL) Troponin I high-sensitivity 2-hour (08/05/2024 7:44 PM CDT) Trop I hs 67(H) <=17 ng/L Comment: Interpretive Data For further hscTnI resources including the diagnostic algorithm and an aid in interpretation, copy and paste this link: https://bjhlab.[email or web address]/show/hsTrop-1 Current Interpretive Data last revised 2019. Trop I hs delta -10(C) ng/L [facility] Trop I hs interp Significa nt(C) [facility] Blood 08/05/2024 7:44 PM CDT 08/05/2024 8:04 PM CDT Dawn Mcmanus MD LAB BLOOD ORDERABLES Fin al Result Performing Organization Address City/[facility] Co de Phone Number [facility] Department [place] [address] * Critical result callback Cardio chemistry (08/05/2024 7:44 PM CDT) Date Notified [id number] Time Notified 2049 [facility] Test name Trop I hs [facility] Called/Read Back Laurel Leigh [facility] Credentials STAFF RADIOLOGIST [facility] Called By SB [facility] Blood 08/05/2024 7:44 PM CDT 08/05/2024 8:04 PM CDT Dawn Mcmanus MD LAB BLOOD ORDERABLES Fin al Result Performing Organization Address City/[facility]/ZIP Co de Phone Number [facility] Department [place] [address] * (ABNORMAL) Troponin I high-sensitivity series (baseline, 2hr, 4hr, 6hr) (08/05/2024 6:02 PM CDT) Trop I hs 77(H) <=17 ng/L Comment: Interpretive Data For further hscTnI resources including the diagnostic algorithm and an aid in interpretation, copy and paste this link: https://bjhlab.[email or web address]/show/hsTrop-1 Current Interpretive Data last revised 2019. Blood 08/05/2024 6:02 PM CDT 08/05/2024 6:15 PM CDT Dawn Mcmanus MD LAB BLOOD ORDERABLES Fin al Result Performing Organization Address City/[facility] Co de Phone Number [facility] Department [place] [address] * (ABNORMAL) Sepsis Lactate w/ Reflex (08/05/2024 6:02 PM CDT) Sepsis Lactate 2.6(H) 0.7 - 2.0 mmol/L Blood 08/05/2024 6:02 PM CDT 08/05/2024 6:10 PM CDT Dawn Mcmanus MD LAB BLOOD ORDERABLES Fin al Result Performing Organization Address [facility] de Phone Number [facility] Department [place] [address] * (ABNORMAL) eGFR (08/05/2024 6:02 PM CDT) eGFR 16(L) >=60 mL/min/1. 73 m2 Comment: Interpretive Data Reference Interval Normal >/= 90 mL/min/1.73m2 Mildly decreased* 60 - 89 mL/min/1.73m2 Mildly to moderately decreased 45 - 59 mL/min/1.73m2 Moderately to severely decreased 30 - 44 mL/min/1.73m2 Severely decreased 15 - 29 mL/min/1.73m2 Kidney Failure < 15 mL/min/1.73m2 *Relative to young adult level Estimated glomerular filtration rate is determined by the 2020 CKD-EPI equation recommended by the National Kidney [employer] (A Unifying Approach to GFR Estimation: Recommendations of the NKF-ASK Task Force on Reassessing the Inclusion of Race in Diagnosing Kidney Disease, JASN 202). The CKD-EPI equation should not be used for patients with unstable renal function and has not been validated in children and those over 70. Current interpretive data was last reviewed 2021. Blood 08/05/2024 6:02 PM CDT 08/05/2024 6:15 PM CDT us Dawn Mcmanus MD LAB BLOOD ORDERABLES Fin al Result [facility] Department [place] [address] * (ABNORMAL) Differential, auto (08/05/2024 6:02 PM CDT) Neutrophil abs 14.93(H) 1.50 - 6.50 K/cumm Imm gran abs 0.68(H) 0.00 - 0.10 K/cumm [facility] Lymphocyte abs 1.00 0.80 - 3.30 K/cumm [facility] Monocyte abs 0.44 0.20 - 0.80 K/cumm [facility] Eosinophil abs 0.08 0.00 - 0.50 K/cumm [facility] Basophil abs 0.06 0.00 - 0.10 K/cumm [facility] Neutrophil pct 86.8 % [facility] Comment: Interpretive Data Percent cell count reference ranges are not reported, since discordance with absolute values may lead to misinterpretation of CBC data. Current Interpretive Data was last revised on 2017. Imm gran pct 4.0 % [facility] Comment: Interpretive Data Percent cell count reference ranges are not reported, since discordance with absolute values may lead to misinterpretation of CBC data. Current Interpretive Data was last revised on 2017. Lymphocyte pct 5.8 % [facility] Comment: Interpretive Data Percent cell count reference ranges are not reported, since discordance with absolute values may lead to misinterpretation of CBC data. Current Interpretive Data was last revised on 2017. Monocyte pct 2.6 % [facility] Comment: Interpretive Data Percent cell count reference ranges are not reported, since discordance with absolute values may lead to misinterpretation of CBC data. Current Interpretive Data was last revised on 2017. Eosinophil pct 0.5 % [facility] Comment: Interpretive Data Percent cell count reference ranges are not reported, since discordance with absolute values may lead to misinterpretation of CBC data. Current Interpretive Data was last revised on 2017. Basophil pct 0.3 % [facility] Comment: Interpretive Data Percent cell count reference ranges are not reported, since discordance with absolute values may lead to misinterpretation of CBC data. Current Interpretive Data was last revised on 2017. Blood 08/05/2024 6:02 PM CDT 08/05/2024 6:15 PM CDT Dawn Mcmanus MD LAB BLOOD ORDERABLES Fin al Result Performing Organization Address City/[facility]/ZIP Co de Phone Number [facility] Department [place] [address] * Thyroid Function [place] (08/05/2024 6:02 PM CDT) [facility] TSH 3.96 0.30 - 4.20 mcIUnit/mL Blood 08/05/2024 6:02 PM CDT 08/05/2024 6:15 PM CDT Dawn Mcmanus MD LAB BLOOD ORDERABLES Fin al Result Performing Organization Address [facility] Co de Phone Number [facility] Department [place] [address] * (ABNORMAL) CBC with auto differential (08/05/2024 6:02 PM CDT) [facility] WBC 17.19(H) 3.80 - 9.90 K/cumm Hgb 8.6(L) 11.9 - 15.5 g/dL [facility] Hct 26.0(L) 35.6 - 45.5 % [facility] Plt 241 150 - 400 K/cumm [facility] MPV 11.1 9.1 - 12.3 fL [facility] RBC 3.41(L) 3.90 - 5.20 M/cumm [facility] MCV 76.2(L) 81.3 - 96.4 fL [facility] MCH 25.2(L) 27.1 - 33.3 pg [facility] MCHC 33.1 32.3 - 35.7 g/dL [facility] RDW CV 17.5(H) 11.1 - 14.9 % [facility] RDW SD 47.7 35.7 - 48.1 fL [facility] NRBC abs 0.00 0.00 - 0.01 K/cumm [facility] Blood 08/05/2024 6:02 PM CDT 08/05/2024 6:15 PM CDT us Dawn Mcmanus MD LAB BLOOD ORDERABLES Fin al Result [facility] Department [place] [address] * (ABNORMAL) Blood culture Blood Arterial line (08/05/2024 6:02 PM CDT) Direct Specimen Exam Stain: Gram Positive Cocci in clusters Time to culture positivity (aerobic media): 10.3 hours Time to culture positivity (anaerobic media): 13.1 hours Report Final Report: Staphylococcus aureus For susceptibility results, refer to accession number [id number] on the blood culture from 08/05/2024 Staphylococcus aureus #2 For susceptibility results, refer to accession number [id number] on the blood culture from 08/05/2024 (.) [facility] Organism STAPHYLOCOCCUS AUREUS [facility] Organism STAPHYLOCOCCUS AUREUS [facility] Blood (Arterial line) 08/05/2024 6:02 PM CDT 08/05/2024 6:12 PM CDT Narrative [facility] - 08/09/2024 9:31 AM CDT Third culture for endocarditis concern Collection->Peripheral 1. Blood cultures are incubated for 4 days on a continuously monitored blood culture system. The first report of a negative culture is issued within 24 hours of receipt of the specimen in the laboratory. 2. Positive culture results are reported as soon as they are detected. 3. The most important factor for detection of microbes in the setting of bloodstream infection is the volume of blood submitted for culture. Failure to collect an optimal blood volume can result in false negative blood cultures. 4. For pediatric patients, the recommended blood volume to collect follows a weight based strategy. See the electronic test catalog for collection instructions. 5. For positive blood cultures, a rapid molecular test may be performed for organism identification using the pramod ePlex blood culture identification panel for gram positive (BCID-GP) and gram negative (BCID-GN) organisms. This nucleic acid amplification test detects microbial DNA in positive blood culture broth. This assay has been cleared by the [place] Food and Drug Administration and its performance characteristics have been verified by the [facility]. For questions about this culture, contact the Microbiology Laboratory at [phone]. Interpretive data was last revised on 24. us Dawn Mcmanus MD LAB MICROBIOLOGY - GENER AL ORDERABLES Final Result [facility] Department [place] [address] * (ABNORMAL) Blood culture Blood Peripheral (08/05/2024 6:02 PM CDT) Direct Specimen Exam Stain: Gram Positive Cocci in clusters Time to culture positivity (aerobic media): 10.4 hours Time to culture positivity (anaerobic media): 12.7 hours Report Final Report: Staphylococcus aureus For susceptibility results, refer to accession number [id number] on the blood culture from 08/05/2024 Staphylococcus aureus #2 For susceptibility results, refer to accession number [id number] on the blood culture from 08/05/2024 (.) ARAMIS PRUITT Organism STAPHYLOCOCCUS AUREUS [facility] Organism STAPHYLOCOCCUS AUREUS [facility] Blood (Peripheral) 08/05/2024 6:02 PM CDT 08/05/2024 6:13 PM CDT Narrative ARAMIS [facility] - 08/09/2024 1:18 PM CDT From a different site than #1. Draw Blood cultures before administration of Antibiotics Collection->Peripheral 1. Blood cultures are incubated for 4 days on a continuously monitored blood culture system. The first report of a negative culture is issued within 24 hours of receipt of the specimen in the laboratory. 2. Positive culture results are reported as soon as they are detected. 3. The most important factor for detection of microbes in the setting of bloodstream infection is the volume of blood submitted for culture. Failure to collect an optimal blood volume can result in false negative blood cultures. 4. For pediatric patients, the recommended blood volume to collect follows a weight based strategy. See the electronic test catalog for collection instructions. 5. For positive blood cultures, a rapid molecular test may be performed for organism identification using the pramod ePlex blood culture identification panel for gram positive (BCID-GP) and gram negative (BCID-GN) organisms. This nucleic acid amplification test detects microbial DNA in positive blood culture broth. This assay has been cleared by the [place] Food and Drug Administration and its performance characteristics have been verified by the [facility]. For questions about this culture, contact the Microbiology Laboratory at [phone]. Interpretive data was last revised on 24. Dawn Mcmanus MD LAB MICROBIOLOGY - [facility] AL ORDERABLES Final Result AR[facility] Department [place] [address] * (ABNORMAL) Blood culture Blood Peripheral (08/05/2024 6:02 PM CDT) Direct Specimen Exam Stain: Gram Positive Cocci in clusters Time to culture positivity (aerobic media): 10.2 hours Time to culture positivity (anaerobic media): 12.7 hours Notification of: Gram Positive Cocci in clusters called to and read back by: Lauren Raya MD ([phone]) on 08/06/2024 04:55:17 by: Morgan Mehta MT Direct Specimen Exam Molecular Analysis: Methicillin-resist ant Staphylococcus aureus (MRSA) detected by the pramod ePlex BCID-GP panel. This test does not exclud the possibility of a mixed bacterial infection. Notification of: Methicillin-resist ant Staphylococcus aureus (MRSA) called to and read back by: Dr. Samuel ([phone]) on 08/06/2024 06:53:19 by: Morgan Mehta MT [facility] Report Final Report: Staphylococcus aureus Methicillin resistant (MRSA) by penicillin binding protein 2a (PBP2a) testing. Staphylococcus aureus #2 Methicillin resistant (MRSA) by penicillin binding protein 2a (PBP2a) testing. (.) ARAMIS [facility] Organism STAPHYLOCOCCUS AUREUS [facility] Organism STAPHYLOCOCCUS AUREUS [facility] Blood (Peripheral) 08/05/2024 6:02 PM CDT 08/05/2024 6:13 PM CDT Narrative [facility] - 08/09/2024 1:18 PM CDT Draw Blood cultures before administration of Antibiotics Collection->Peripheral 1. Blood cultures are incubated for 4 days on a continuously monitored blood culture system. The first report of a negative culture is issued within 24 hours of receipt of the specimen in the laboratory. 2. Positive culture results are reported as soon as they are detected. 3. The most important factor for detection of microbes in the setting of bloodstream infection is the volume of blood submitted for culture. Failure to collect an optimal blood volume can result in false negative blood cultures. 4. For pediatric patients, the recommended blood volume to collect follows a weight based strategy. See the electronic test catalog for collection instructions. 5. For positive blood cultures, a rapid molecular test may be performed for organism identification using the pramod ePlex blood culture identification panel for gram positive (BCID-GP) and gram negative (BCID-GN) organisms. This nucleic acid amplification test detects microbial DNA in positive blood culture broth. This assay has been cleared by the [place] Food and Drug Administration and its performance characteristics have been verified by the [facility]. For questions about this culture, contact the Microbiology Laboratory at [phone]. Interpretive data was last revised on 24. Organism Antibiotic Method Susceptibility Staphylococcus aureus Daptomycin (JAMIL) (JAMIL) INTERPRET ATION Susceptible Staphylococcus aureus Ceftaroline (JAMIL) INTERPRETATIO N Susceptible Staphylococcus aureus Doxycycline (JAMIL) INTERPRETATIO N Susceptible Staphylococcus aureus Linezolid (JAMIL) INTERPRETATIO N Susceptible Staphylococcus aureus Trimethoprim with Sulfamethoxazole (JAMIL) INTERPRETATION Susceptible Staphylococcus aureus Clindamycin (JAMIL) INTERPRETATIO N Susceptible Staphylococcus aureus Erythromycin (JAMIL) INTERPRETATIO N Resistant Staphylococcus aureus Vancomycin (JAMIL) INTERPRETATIO N Susceptible Staphylococcus aureus Oxacillin (JAMIL) INTERPRETATIO N Resistant Staphylococcus aureus Cefazolin (JAMIL) INTERPRETATIO N Resistant Staphylococcus aureus Ceftriaxone (JAMIL) INTERPRETATIO N Resistant Staphylococcus aureus Daptomycin (JAMIL) (JAMIL) INTERPRET ATION Susceptible Staphylococcus aureus Ceftaroline (JAMIL) INTERPRETATIO N Susceptible Staphylococcus aureus Doxycycline (JAMIL) INTERPRETATIO N Susceptible Staphylococcus aureus Linezolid (JAMIL) INTERPRETATIO N Susceptible Staphylococcus aureus Trimethoprim with Sulfamethoxazole (JAMIL) INTERPRETATION Susceptible Staphylococcus aureus Clindamycin (JAMIL) INTERPRETATIO N Susceptible Staphylococcus aureus Erythromycin (JAMIL) INTERPRETATIO N Resistant Staphylococcus aureus Vancomycin (JAMIL) INTERPRETATIO N Susceptible Staphylococcus aureus Oxacillin (JAMIL) INTERPRETATIO N Resistant Staphylococcus aureus Cefazolin (JAMIL) INTERPRETATIO N Resistant Staphylococcus aureus Ceftriaxone (JAMIL) INTERPRETATIO N Resistant us Dawn Mcmanus MD LAB MICROBIOLOGY - GENER AL ORDERABLES Final Result Performing Organization Address [facility] Co de Phone Number [facility] Department [place] [address] * (ABNORMAL) Erythrocyte sedimentation rate (08/05/2024 6:02 PM CDT) Erythrocyte sedimentation rate 104(H) 1 - 20 mm/hr Blood 08/05/2024 6:02 PM CDT 08/05/2024 6:15 PM CDT us Dawn Mcmanus MD LAB BLOOD ORDERABLES Fin al Result Performing Organization Address [facility] de Phone Number [facility] Department [place] [address] * (ABNORMAL) CRP (acute phase) (08/05/2024 6:02 PM CDT) CRP 282.7(H) <=10.0 mg/L Blood 08/05/2024 6:02 PM CDT 08/05/2024 6:15 PM CDT us Dawn Mcmanus MD LAB BLOOD ORDERABLES Fin al Result Performing Organization Address [facility]/ZIP Co de Phone Number ARAMIS [facility] Department [place] [address] * (ABNORMAL) Blood gas, venous (08/05/2024 6:02 PM CDT) pH, Venous 7.35 7.32 - 7.43 PCO2, Venous 35(L) 40 - 50 mmHg [facility] PO2, Venous 22 mmHg [facility] Comment: Interpretive Data No Reference Range Established Current Interpretive Data was last revised on 2017. HCO3 Venous, Calculated 20 20 - 30 mmol/L [facility] BE, venous -6 mmol/L [facility] Comment: Interpretive Data No Reference Range Established Current Interpretive Data was last revised on 2017. Blood 08/05/2024 6:02 PM CDT 08/05/2024 6:10 PM CDT Dawn Mcmanus MD LAB BLOOD ORDERABLES Fin al Result Performing Organization Address [facility] de Phone Number [facility] Department [place] [address] * (ABNORMAL) Comprehensive metabolic panel (08/05/2024 6:02 PM CDT) Sodium 125(L) 135 - 145 mmol/L Potassium, pl 3.4 3.3 - 4.9 mmol/L [facility] Chloride 92(L) 97 - 110 mmol/L [facility] CO2 20(L) 22 - 32 mmol/L [facility] Anion gap 13 2 - 15 mmol/L [facility] BUN 48(H) 6 - 25 mg/dL [facility] Creatinine 3.84(H) 0.60 - 1.10 mg/dL [facility] Glucose 107 70 - 199 mg/dL [facility] Comment: Interpretive Data Fasting glucose >/= 126 mg/dl is diagnostic for diabetes. Fasting is defined as no caloric intake for at least 8 hours. Fasting glucose between 100 mg/dl to 125 mg/dl is diagnostic of prediabetes. In a patient with classic symptoms of hyperglycemia or hyperglycemic crisis, a random glucose >/= 200 mg/dl is diagnostic for diabetes. In the absence of unequivocal hyperglycemia, results should be confirmed by repeat testing. The classification and Diagnosis of Diabetes Diabetes Care 2021; 46: S19-S40. Current interpretive data was last revised 2022. Calcium 7.4(L) 8.5 - 10.3 mg/dL [facility] Bilirubin, total 1.0 0.1 - 1.2 mg/dL [facility] Protein, pl 8.5 6.5 - 8.5 g/dL [facility] Albumin 2.1(L) 3.5 - 5.0 g/dL [facility] Alk phos 210(H) 40 - 130 Units/L [facility] ALT 21 7 - 45 Units/L [facility] AST 43 10 - 45 Units/L [facility] Blood 08/05/2024 6:02 PM CDT 08/05/2024 6:15 PM CDT Dawn Mcmanus MD LAB BLOOD ORDERABLES [facility] al Result [facility] Department [place] [address] * [place] CRITICAL CARE ILL/INJURED PATIENT INIT 30-74 MIN (08/05/2024 5:59 PM CDT) Narrative Amando Briggs MD - 08/05/2024 5:59 PM CDT Amando Briggs MD 08/05/2024 6:01 PM Critical Care Performed by: Amando Briggs MD Authorized by: Amando Briggs MD Critical care provider statement: As reflected in the history, physical exam, orders, notes, and/or MDM, I was personally present while the patient was critically ill and provided critical care services for 45 minutes, excluding time involved in separately billable procedures. Critical care was necessary to treat or prevent imminent or life-threatening deterioration of the following condition(s): unstable vital signs dehydration, hypo/hyper glycemic control and severe metabolic condition sepsis, bacteremia, severe infectious condition and skin/soft tissue infection Critical care was time spent by me providing the following: continuous telemetry, continuous pulse oximetry, continuous capnography, interpretation of bedside monitors, imaging, and arterial/venous lab draws, serial bedside patient exams, serial laboratory checks and resuscitation with fluids frequent neurologic exams glycemic control and decision regarding NPO status supplemental oxygen review prior cultures/records, obtain appropriate cultures, empiric broad coverage antibiotics and review current gram stain results I provided emergent necessary critical care medicine services to this patient. I ordered and reviewed test results and/or imaging studies. I spent time discussing the management of this critically ill patient with consultants and the medical staff. I spent time discussing the management and therapeutic options for this critically ill patient with the patient themselves or with the appropriate designated surrogate decision-maker. I spent time documenting in the medical record. I admitted this patient to a continuous cardiac monitored bed. us Amando Briggs MD IN CLINIC/BEDSIDE ORDERAB LES Final Result * (ABNORMAL) ECG 12-LEAD (08/05/2024 5:53 PM CDT) Narrative [facility] - 08/05/2024 5:53 PM CDT Amando Briggs MD 08/05/2024 5:54 PM ECG 12 lead Date/Time: 08/05/2024 5:53 PM Performed by: Amando Briggs MD Authorized by: Amando Briggs MD Rate: ECG rate: 148 ECG rate assessment: normal Rhythm: Rhythm: sinus tachycardia Ectopy: Ectopy: none QRS: QRS axis: Normal QRS intervals: Normal Conduction: Conduction: normal ST segments: ST segments: Non-specific T waves: T waves: normal Previous ECG: Previous ECG: Unavailable Interpretation: Interpretation: abnormal Recommended Follow-up: Recommended follow up: further workup in the ED Comments: Moderate risk Procedure Note Amando Briggs MD - 08/05/2024 5:53 PM CDT Procedure ECG 12 lead Date/Time: 08/05/2024 5:53 PM Performed by: Amando Briggs MD Authorized by: Amando Briggs MD Rate: ECG rate: 148 ECG rate assessment: normal Rhythm: Rhythm: sinus tachycardia Ectopy: Ectopy: none QRS: QRS axis: Normal QRS intervals: Normal Conduction: Conduction: normal ST segments: ST segments: Non-specific T waves: T waves: normal Previous ECG: Previous ECG: Unavailable Interpretation: Interpretation: abnormal Recommended Follow-up: Recommended follow up: further workup in the ED Comments: Moderate risk Amando Briggs MD 08/05/24 1346 us Amando Briggs MD ECG ORDERABLES Final Res ult [facility] * Pap with reflex to High Risk HPV (08/11/2020 12:37 PM CDT) Pap test 08/11/2020 12:3 7 PM CDT 08/11/2020 3:10 PM CDT Narrative 08/18/2020 1:59 PM CDT [facility] results best viewed via link to PDF [facility] [place] [address] CYTOPATHOLOGY REPORT FINAL Patient Name: TIFFANY MILLER Gender: F : 1995 (Age: 24) Address: [address] [place] [address] Hospital #: [id number] Service: Gynecology Location: [facility] Patient Type: [facility] Ancillary Taken: 08/11/2020 Received: 08/11/2020 Accessioned: 08/12/2020 Reported: 08/18/2020 Physician(s): Tiffany Reddy MD, PhD FINAL INTERPRETATION SOURCE OF SPECIMEN: Liquid based Thin Prep pap with Reflex HPV STATEMENT OF ADEQUACY: - Satisfactory for evaluation - No endocervical/transformation zone sample present in a patient GENERAL CATEGORY: - Negative for squamous intraepithelial lesion or malignancy DESCRIPTION: - Shift in melissa suggestive of bacterial vaginosis mg/08/18/2020 13:59 ROYA Benites(ASCP) Report Electronically Reviewed and Signed Out By ROYA Benites(ASCP) 08/18/2020 13:59:20 Cervicovaginal Cytology (Pap Test) Disclaimer: The Pap test is a screening test used to detect cervical cancer and its precursors; it is not a diagnostic procedure. False negative and false positive results do occur. Pap test results should be interpreted in the context of pertinent clinical information and biopsy results as indicated. Gross Description A. Liquid based Thin Prep pap with Reflex HPV: Cervical/vaginal - Screening ThinPrep Clinical Diagnosis and History Last Menstrual Period: currently The patient is a 24 year old woman with screening Pap. Report Images and scanned documents, if included only viewable in PDF version The performance characteristics of some immunohistochemical stains, in-situ hybridization and fluorescence in-situ hybridization tests and immunophenotyping by flow cytometry cited in this report (if any) were determined by the Surgical Pathology Department at [facility] as part of an ongoing senior quality analyst program and in compliance with federally mandated regulations drawn from the Clinical Laboratory Improvement Act of 1988 (CLIA '88). Some of these tests rely on the use of analyte specific reagents and are subject to specific labeling requirements by the [place] Food and Drug Administration. Such diagnostic tests may only be performed in a facility that is certified by the Department of Health and Human Services as a high complexity laboratory under CLIA '88. The FDA has determined that such clearance or approval is not necessary. This test is used for clinical purposes. It should not be regarded as investigational or for research. Nevertheless, federal rules concerning the medical use of analyte specific reagents require that the following disclaimer be attached to the report: This test was developed and its performance characteristics determined by the Surgical Pathology Department of [facility]. It has not been cleared or approved by the U. S. Food and Drug Administration. Tiffany Reddy MD PhD LAB CYTOLOGY ORDERAB LES Final Result from Last 3 Months or Most Recently Relevant to Health Maintenance Insurance [facility] Advance Directives For more information, please contact: [phone] * Full Code (Latest Code Status on File) Date Activated Date Inactivated Comments 08/05/2024 11:01 PM 10/01/2024 5:38 PM * Full Code Date Activated Date Inactivated Comments 01/19/2021 12:57 AM 01/20/2021 7:39 PM * Full Code Date Activated Date Inactivated Comments 01/18/2021 5:59 PM 01/19/2021 12:57 AM Full CPR in case of cardiopulmonary arrest Healthcare Agents on File Name Relationship Healthcare Agent Relationsks p Communication Kusumjoe Cárdenas Sister Health Care Agent
--- OUTSIDE RECORDS SUMMARY | 2024-10-08 13:39 | XMS_ITS | Clinical Summary ---
Author Organization [facility] Care Team Providers Care Rip Saw Operator Name Role Phone Unavailable Primary Care Provider Unavailabl e Allergies No known active allergies Medications naloxegoL [...] 1 mL 10/02/19 25 025 Active multivit isacatjl-jdsw-RX-c alcium (THERA-M) 9 mg iron-400 mcg tablet [...] within 12 hours or as directed by MD. 20 patch 10/03/19 25 025 Active hydrALAZINE [...] Contraception 1 each intrauterine Continuous (implanted device) 1 10/02/19 25 Discontinued Active Problems Problem Noted Date Diagnosed Date Ascites 09/06/2024 Assessment & Plan (10/01/2024 12:21 PM CDT): POCUS (09/06) revealing small volume ascites, not amenable to para Assessment & Plan (09/30/2024 2:33 PM CDT): POCUS (5/8) revealing small volume ascites, not amenable to para Assessment & Plan (09/29/2024 1:49 PM CDT): POCUS (58) revealing small volume ascites, not amenable to [...] & Plan (09/28/2024 3:38 PM CDT): D/t MAIRELENA, withdrawal -Pt treated initially (amlodipine 10mg and [...] & Plan (2024 7:59 AM CDT): D/t MARIELENA, withdrawal -continue clonidine TID -start hydralazine 10mg TID 5/5 Assessment & Plan (09/04/2024 7:56 AM CDT): D/t MARIELENA, withdrawal -continue clonidine TID -start hydralazine 10mg TID 5 Assessment & Plan (09/03/2024 4:35 PM CDT): D/t MARIELENA, withdrawal -continue clonidine TID -start hydralazine 10mg TID /5 Assessment & Plan (09/02/2024 4:33 PM CDT): [...] leaving AMA because of withdrawal - Removed Israel's on 08/25 - Decreased 08/27 Methadone to [...] leaving AMA because of withdrawal - Removed Salmas on 08/25 - Decreased 08/27 Methadone to [...] leaving AMA because of withdrawal - Removed Salmas on 08/25 - Decreased 08/27 Methadone to [...] recommended to keep dressing changes daily. - NWSabas FLOOD, volar slab for soft tissue rest RESOLVED [...] like the hospital food choices; Seen eating American food 09/14 and 09/15 Pt should not [...] like the hospital food choices; Seen eating American food 09/14; Pt should not skip breakfast [...] like the hospital food choices; Seen eating American food 09/14; Assessment & Plan (09/13/2024 1:28 [...] nightly as appetite stimulant - POC gluc [facility] Assessment & Plan (09/10/2024 5:10 PM CDT): [...] nightly as appetite stimulant - POC gluc [facility] Assessment & Plan (09/09/2024 7:28 AM CDT): [...] 08/18, ---> keep 3/week 1 unit pRBCs 4/17 Monitor and transfuse PRN Assessment & Plan (08/20/2024 1:53 PM CDT): In setting of endocarditis; Iron deficient; Will give IV iron supplement while here IV iron started 08/18, to continue MWF 1 unit pRBCs 08/16 Monitor and transfuse [...] no UOP after 1 dose lasix 08/19 Nephrology asked for TDC placement, ok per [...] c/s, finish antibiotics and can see Dr. Aclala in clinic (referral placed) - ID team [...] 4/15 am. Blood cultures drawn in HD 4/16 Will continue to attempt blood cultures daily [...] fever, and tea-colored urine. She presented to [facility] on 07/31 where she was discovered to have high-grade bacteremia with Staphylococcus aureus (MRSA). Cavitary pulmonary nodules on CT suggested septic emboli, and transthoracic echocardiogram subsequently demonstrated a tricuspid valve vegetation (1.2 x 0.8 cm). She entered opioid withdrawal and left the hospital prematurely on 08/03 before re-presenting to [facility] on 08/05 in more florid shock. 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 - Repeat two sets of [...] had MRI of the thoracolumbar spine at [facility] on 08/01 that was generally reassuring against [...] anesthesia consult: Done 11/21 [x] Third trimester [facility] consult: Done 12/01 [] Third trimester Hepatitis C antibody: ordered today [] 32-34 week growth scan: missed [] EKG in setting of methadone >100: ordered today, directed patient to CAM Assessment & Plan (10/01/2024 12:21 PM CDT): Psych following for dosing of methadone Also on oxy 2.5 mg q6h prn for acute pain Given the patient is [place] resident, without much access to methadone clinic. [...] for acute pain Given the patient is [place] resident, without much access to methadone clinic. [...] for acute pain Given the patient is [place] resident, without much access to methadone clinic. [...] for acute pain Given the patient is [place] resident, without much access to methadone clinic. [...] for acute pain Given the patient is [place] resident, without much access to methadone clinic. Plan to transition patient from methadone to Suboxone. Assessment & Plan (09/26/2024 3:45 PM CDT): Psych following for dosing of methadone Also on oxy 2.5 mg q6h prn for acute pain Given the patient is [place] resident, without much access to methadone clinic. Plan to transition patient from methadone to Suboxone. Assessment & Plan (09/25/2024 1:31 PM CDT): Psych following for dosing of methadone Also on oxy 2.5 mg q6h prn for acute pain Currently on methadone 40 daily per psych for OUD. [facility] referral ([phone]) for outpatient follow-up for methadone -prn meds [...] methadone 40 daily per psych for OUD. [facility] referral ([phone]) for outpatient follow-up for methadone placed/talked 09/21 given long weekend. No response. [facility] referral was placed/talked again 09/24. [...] methadone 40 daily per psych for OUD. [facility] referral ([phone]) for outpatient follow-up for methadone placed 09/21 [...] methadone 40 daily per psych for OUD. [facility] referral ([phone]) for outpatient follow-up for methadone placed 09/21 [...] methadone 40 daily per psych for OUD. [facility] referral ([phone]) for outpatient follow-up for methadone placed 09/21 [...] 5 q6 prn resumed for pain 09/20. [facility] referral ([phone]) for outpatient follow-up for methadone at least [...] pain, discontinued p.r.n. oxycodone per psych recommendations. [facility] referral ([phone]) for outpatient follow-up for methadone at least [...] provider to reach out to Case-Worker Katrina [phone] to discuss methadone dosing as requested to wean dosing. We discussed with patient that maintaining and likely increasing methadone dose in third trimester is to be expected due to the physiology of and metabolism. We also reviewed that increasing this does does not increase the risk of THOMAS in the . tin recovery worker attempted to be called but patient declines. If katrina calls clinic, may send her a letter stating above. We also reviewed the false-positive rate with amphetamine and higher sensitivity/specificty of our UDS with CARE clinic. Patient denies relapses and is 9 months sober today. Commended on great work!! Assessment & Plan (06/23/2020 2:51 PM BACK OFFICE MEDICAL ASSISTANT): Drug use history: She reports using IV [...] caring for a . Close follow-up with [facility] will be recommended at that time. She [...] gtt at 24-28wks: 99 [] Flu Shot (Dec-Apr) [x] Tdap (27-36wks): 11/17 [x] Rhogam (if Rh neg): N/A Third Trimester: [x] CBC/HIV/RPR/T&S: collected today [x] GBS: collected today [x] GC/CT (if indicated): collected today Counseling [x] Method of delivery: Anticipate vaginal delivery. 39wk IOL scheduled for 01/20 at 8AM. 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 location given Hepatitis C virus infection 08/19/2017 [...] hepatitis C positive and not yet treated. Encounters Date Type Department Care Team Description 10/05/2024 SHOP/CHAP Initial Outreach [facility] OP CASE MANAGEMENT [address] [place] [address] Katerin Zepeda, KAELYN 10/03/2024 SHOP/CHAP Initial Outreach [facility] OP CASE MANAGEMENT [address] [place] [address] Katerin Zepeda, KAELYN 10/02/2024 SHOP/CHAP Initial Outreach [facility] OP CASE MANAGEMENT [address] [place] [address] Katerin Zepeda, KAELYN 10/02/2024 Telephone [facility] Cardiothoracic Surgery [address] [place] [address] 8th [address] Room [address] [address] Massimo Alcala MD 10/02/2024 SHOP/CHAP Initial Eligibility Review [facility] OP CASE MANAGEMENT [address] [place] [address] Katerin Zepeda RN 08/05/2024 5:32 PM CDT - 10/01/2024 1:33 PM CDT Hospital Encounter [facility] [address] [place] [address] Amando Briggs MD Krings, MD Ayah Steve Nguyet M., MD Freer, MD Carlitos Jimenez, Valerie Palacios MD PhD Jone Vann MD Vest, MD Mekhi Rosales, MD Linus Rose, MD Melisa Peguero, MD Arya Acute bacterial endocarditis (Primary Dx); Opioid use disorder; MARIELENA (acute kidney injury); Hyponatremia; Septic shock (HCC); Staphyloccocus aureus (MRSA) endocarditis Discharge Disposition: Discharge to home or self care from Last 3 Months Immunizations Immunization Administration Dates Next Due DTaP 01/31/2002,11/22/2000,03/28/2000 Hep A, Ped Unspecified 01/31/2002,03/28/2000 Hep B / HiB 11/22/2000,03/28/2000 IPV 01/31/2002,11/22/2000,03/28/2000 MMR 11/22/2000 Pneumococcal Conjugate 7-Valent 11/22/2000 Tdap 11/17/2020,01/21/2019 Surgical History Surgery Date Site/Laterality Comments LIVER BIOPSY TUNNELED LINE PLACEMENT > 5 YEARS 08/23/2024 N/A REMOVE TUNNELED LINE 10/01/2024 Left Medical History Medical History Date Comments Hepatitis C Mental disorder Social History Tobacco Use Types Packs/Day Years Used Date Smoking Tobacco: Every Day Cigarettes Tobacco Cessation:Ready to Q uit: No [facility] Utilities Answer Date Recorded In the past 12 months has [employer], [employer], oil, or water [employer] threatened to shut off services in your home? Patient declined 08/22/2024 Social Connection and Isolation Panel [NHANES] A nswer Date Recorded In a typical week, how many times do you talk on the phone with family, friends, or neighbors? Patient declined 08/22/2024 How often do you get togethe r with friends or relatives? Patient declined 08/22/2024 How often do you attend sikhism or methodist serv ices? Patient declined 08/22/2024 Do you belong to any clubs o r organizations such as sikhism groups, unions, fraternal or athletic groups, or [...] things needed for daily living? Yes 08/22/2024 [place] Depression Scale Answer Date Recorded [place] Depression Scale Total 1 03/23/2021 The thought [...] any time in the past 12 m onths, were you homeless or living in a half-way (including now)? Yes 08/22/2024 Personal Safety Answer Date Recorded Have you ever been in or are you currently in a harmful physical or emotional relationship or is someone making you feel afraid or unsafe? Denies 10/01/2024 Comments No Sex and Gender Information Value Date Recorded Sex Assigned at Not on file Legal Sex Female 6:17 PM BACK OFFICE MEDICAL ASSISTANT Gender Identity Not on file Sexual Orientation Not on file Obstetrics History Para Term AB IAB SAB Ectopic Multiple Livin g Live Births 3 2 2 1 0 2 2 Date Outcome GA Total Labor Labor/2nd/3rd Weight Sex Type Anes PTL Gabby A1 A5 Name Clin Term Vag-S pont Livin g AB 2020 Term 38w 6d 3h 05m 2h 53m/0h 08m/0h 04m 2.74 kg (6 lb 0.7 oz) M Vag-S pont Combin ed Spinal /Epidu ral N Livin g 8 9 IAN Aponte,REJI Heredia on, Macrina Poole MD Complications:None Delivery Location:[facility] Main C ampus ([facility] 58LD) Comments 07/2019- (12-13wks), thinks s he maybe had an infection. Had vaginal bleeding and nausea. Started having contractions and then passed tissue. [facility] Last Filed Vital Signs Vital Sign Reading [...] 08/05/2024 11:10 PM CDT Plan of Treatment Health Maintenance Due Date Last Done Comments Pneumococcal vaccine <65 (2 of 2 - PPSV23) 09/04/2001 11/22/2000 Varicella Vaccines (1 of 2 - 13+ 2-dose series) 09/04/2008 Regular Well Visit/Exam 18-64 09/04/2013 Cervical Cancer Screening 08/11/2021 08/11/2020 Depression Screening 03/23/2022 03/23/2021 Influenza Vaccine (Season Ended) 2024 DTaP/Tdap/Td Vaccine (6 - Td or Tdap) 11/17/2030 11/17/2020, 01/21/2019, 01/31/2002, Additional history exists Hepatitis B Screening Completed 09/28/2024 , 11/22/2000, 03/28/2000 Hepatitis C Screening Completed 09/28/2024 , 08/17/2024, 08/06/2024, Additional history exists HPV Vaccines Aged Out No longer eligi ble based on patient's age to complete this topic Procedures Procedure Name Priority Date/Time Associated Diagnosis [...] PM CDT POCT GLUCOSE DEVICE Routine 08/26/2024 1 :17 PM CDT POCT GLUCOSE DEVICE Routine 08/26/2024 [...] DEVICE Routine 08/09/2024 5 :20 PM CDT MO INSJ NON-TUNNELED CENTRAL VENOUS CATH AGE 5 [...] HEPATITIS PANEL, ACUTE Routine 4:58 AM CDT MO INSJ NON-TUNNELED CENTRAL VENOUS CATH AGE 5 YR/> Routine 08/06/2024 4:18 AM CDT Acute bacterial endocarditis Septic shock (HCC) XR CHEST 1 VIEW ED Urgent/IP Urgent 08/06/2024 3:56 AM CDT US KIDNEY COMPLETE IP Routine 08/06/2024 3: 20 AM CDT ECG 12-LEAD STAT 08/05/2024 11:21 PM CDT MO CRITICAL CARE ILL/INJURED PATIENT INIT 30-74 MIN Routine 08/05/2024 10:39 PM CDT MO ARTL CATHJ/CANNULJ MNTR/TRANSFUSION SPX PRQ Routine 08/05/2024 [...] BLOOD CULTURE STAT 08/05/2024 6:02 PM CDT MO CRITICAL CARE ILL/INJURED PATIENT INIT 30-74 MIN [...] ORDERABLES - DEVICE Final Result ARAMIS Maldonado [facility] Department [place] [address] * IR Remove Tunneled CVC (10/01/2024 11:25 [...] sedation. TECHNIQUE: Prior to beginning the procedure, [place] Protocol was used to confirm the patient's [...] sedation. TECHNIQUE: Prior to beginning the procedure, [place] Protocol was used to confirm the patient's [...] protocol. Electronically signed by: Kendra Polanco PA-C Arya Vincent MD IMG IR PROCEDURES Final Resu lt * POCT glucose (10/01/2024 7:31 AM CDT) Glucose, POC 95 70 - 199 mg/dL Blood 10/01/2024 7:31 AM CDT 10/01/2024 7:31 AM CDT Arya Vincent MD LAB POCT ORDERABLES - DEVICE Final Result Performing Organization Address City/[facility]/ZIP Co de Phone Number [facility] [place] [address] * POCT glucose (10/01/2024 6:34 AM CDT) Glucose, POC 120 70 - 199 mg/dL Blood 10/01/2024 6:34 AM CDT 10/01/2024 6:34 AM CDT Arya Vincent MD LAB POCT ORDERABLES - DEVICE Final Result Performing Organization Address [facility] Co de Phone Number [facility] [place] [address] * POCT glucose (09/30/2024 9:11 PM CDT) Glucose, POC 116 70 - 199 mg/dL Blood 09/30/2024 9:11 PM CDT 09/30/2024 9:11 PM CDT Arya Vincent MD LAB POCT ORDERABLES - DEVICE Final Result Performing Organization Address City/[facility] Co de Phone Number [facility] Department [place] [address] * (ABNORMAL) eGFR (09/30/2024 7:49 PM CDT) eGFR 15(L) >=60 mL/min/1. 73 m2 Comment: [...] MD LAB BLOOD ORDERABLES F inal Result [facility] Department [place] [address] * (ABNORMAL) Differential, auto (09/30/2024 7:49 PM CDT) Neutrophil abs 5.97 1.50 - 6.50 K/cumm Imm gran abs 0.07 0.00 - 0.10 K/cumm [facility] Lymphocyte abs 2.76 0.80 - 3.30 K/cumm [facility] Monocyte abs 0.98(H) 0.20 - 0.80 K/cumm [facility] Eosinophil abs 0.18 0.00 - 0.50 K/cumm [facility] Basophil abs 0.05 0.00 - 0.10 K/cumm [facility] Neutrophil pct 59.6 % [facility] Comment: Interpretive Data Percent cell count reference ranges are not reported, since discordance with absolute values may lead to misinterpretation of CBC data. Current Interpretive Data was last revised on 2017. Imm gran pct 0.7 % [facility] Comment: Interpretive Data Percent cell count reference ranges are not reported, since discordance with absolute values may lead to misinterpretation of CBC data. Current Interpretive Data was last revised on 2017. Lymphocyte pct 27.6 % [facility] Comment: Interpretive Data Percent cell count reference ranges are not reported, since discordance with absolute values may lead to misinterpretation of CBC data. Current Interpretive Data was last revised on 2017. Monocyte pct 9.8 % [facility] Comment: Interpretive Data Percent cell count reference ranges are not reported, since discordance with absolute values may lead to misinterpretation of CBC data. Current Interpretive Data was last revised on 2017. Eosinophil pct 1.8 % [facility] Comment: Interpretive Data Percent cell count reference ranges are not reported, since discordance with absolute values may lead to misinterpretation of CBC data. Current Interpretive Data was last revised on 2017. Basophil pct 0.5 % [facility] Comment: Interpretive Data Percent cell count reference ranges are not reported, since discordance with absolute values may lead to misinterpretation of CBC data. Current Interpretive Data was last revised on 2017. Blood 09/30/2024 7:49 PM CDT 09/30/2024 8:16 PM CDT Elizabet Dickey MD LAB BLOOD ORDERABLES F inal Result [facility] Department [place] [address] * (ABNORMAL) CBC with auto differential (09/30/2024 7:49 PM CDT) WBC 10.01(H) 3.80 - 9.90 K/cumm Hgb 7.8(L) 11.9 - 15.5 g/dL [facility] Hct 24.8(L) 35.6 - 45.5 % [facility] Plt 302 150 - 400 K/cumm [facility] MPV 10.6 9.1 - 12.3 fL [facility] RBC 2.82(L) 3.90 - 5.20 M/cumm [facility] MCV 87.9 81.3 - 96.4 fL [facility] MCH 27.7 27.1 - 33.3 pg [facility] MCHC 31.5(L) 32.3 - 35.7 g/dL [facility] RDW CV 16.9(H) 11.1 - 14.9 % [facility] RDW SD 54.2(H) 35.7 - 48.1 fL [facility] NRBC abs 0.00 0.00 - 0.01 K/cumm [facility] Blood 09/30/2024 7:49 PM CDT 09/30/2024 8:16 PM CDT us Elizabet Dickey MD LAB BLOOD ORDERABLES F inal Result Performing Organization Address City/[facility] Co de Phone Number [facility] [place] [address] * (ABNORMAL) Phosphorus (09/30/2024 7:49 PM CDT) Phosphorus, pl 1.8(L) 2.3 - 4.5 mg/dL Blood 09/30/2024 7:49 PM CDT 09/30/2024 8:16 PM CDT us Kirk Gaming MD LAB BLOOD ORDERABLES F inal Result Performing Organization Address [facility] de Phone Number [facility] [place] [address] * Bilirubin, direct (09/30/2024 7:49 PM CDT) Bilirubin, direct 0.2 0.1 - 0.3 mg/dL Comment:Reviewed Blood 09/30/2024 7:49 PM CDT 09/30/2024 8:16 PM CDT Kirk Gaming MD LAB BLOOD ORDERABLES F inal Result Performing Organization Address [facility] de Phone Number [facility] [place] [address] * (ABNORMAL) Comprehensive metabolic panel (09/30/2024 7:49 PM CDT) Sodium 134(L) 135 - 145 mmol/L Potassium, pl 3.7 3.3 - 4.9 mmol/L [facility] Chloride 98 97 - 110 mmol/L [facility] CO2 30 22 - 32 mmol/L [facility] Anion gap 6 2 - 15 mmol/L [facility] BUN 16 6 - 25 mg/dL [facility] Creatinine 3.93(H) 0.60 - 1.10 mg/dL [facility] Glucose 82 70 - 199 mg/dL [facility] Comment: Interpretive Data Fasting glucose >/= 126 [...] 2022. Calcium 7.9(L) 8.5 - 10.3 mg/dL [facility] Bilirubin, total 0.5 0.1 - 1.2 mg/dL [facility] Protein, pl 7.6 6.5 - 8.5 g/dL [facility] Albumin 2.1(L) 3.5 - 5.0 g/dL [facility] Alk phos 101 40 - 130 Units/L [facility] ALT 5(L) 7 - 45 Units/L [facility] AST 9(L) 10 - 45 Units/L [facility] Blood 09/30/2024 7:49 PM CDT 09/30/2024 8:16 PM CDT us Kirk Gaming MD LAB BLOOD ORDERABLES F inal Result [facility] Department [place] [address] * POCT glucose (09/30/2024 5:42 PM CDT) [facility] Glucose, POC 117 70 - 199 mg/dL Blood 09/30/2024 5:42 PM CDT 09/30/2024 5:42 PM CDT Arya Vincent MD LAB POCT ORDERABLES - DEVICE Final Result Performing Organization Address [facility] de Phone Number [facility] [place] [address] * POCT glucose (09/30/2024 11:30 AM CDT) Glucose, POC 80 70 - 199 mg/dL Blood 09/30/2024 11:3 0 AM CDT 09/30/2024 11:30 AM CDT us Arya Vincent MD LAB POCT ORDERABLES - DEVICE Final Result Performing Organization Address [facility] de Phone Number [facility] [place] [address] * POCT glucose (09/30/2024 9:31 AM CDT) Glucose, POC 71 70 - 199 mg/dL Blood 09/30/2024 9:31 AM CDT 09/30/2024 9:31 AM CDT Arya Vincent MD LAB POCT ORDERABLES - DEVICE Final Result Performing Organization Address [facility] [place] [address] * POCT glucose (09/30/2024 6:51 AM CDT) Glucose, POC 77 70 - 199 mg/dL Blood 09/30/2024 6:51 AM CDT 09/30/2024 6:51 AM CDT Arya Vincent MD LAB POCT ORDERABLES - DEVICE Final Result Performing Organization Address City/[facility] Co de Phone Number [facility] [place] [address] * POCT glucose (09/29/2024 7:48 PM CDT) Glucose, POC 130 70 - 199 mg/dL Blood 09/29/2024 7:48 PM CDT 09/29/2024 7:48 PM CDT us Arya Vincent MD LAB POCT ORDERABLES - DEVICE Final Result Performing Organization Address [facility] [place] [address] * POCT glucose (09/29/2024 5:00 PM CDT) Glucose, POC 111 70 - 199 mg/dL Blood 09/29/2024 5:00 PM CDT 09/29/2024 5:00 PM CDT us Arya Vincent MD LAB POCT ORDERABLES - DEVICE Final Result Performing Organization Address [facility] Co de Phone Number [facility] [place] [address] * POCT glucose (09/29/2024 11:43 AM CDT) Glucose, POC 77 70 - 199 mg/dL Blood 09/29/2024 11:4 3 AM CDT 09/29/2024 11:43 AM CDT us Arya Vincent MD LAB POCT ORDERABLES - DEVICE Final Result Performing Organization Address City/[facility] Co de Phone Number [facility] [place] [address] * POCT glucose (09/29/2024 9:22 AM CDT) Glucose, POC 94 70 - 199 mg/dL Blood 09/29/2024 9:22 AM CDT 09/29/2024 9:22 AM CDT Arya Vincent MD LAB POCT ORDERABLES - DEVICE Final Result Performing Organization Address [facility] Co de Phone Number [facility] [place] [address] * POCT glucose (09/28/2024 11:42 PM CDT) Glucose, POC 77 70 - 199 mg/dL Blood 09/28/2024 11:4 2 PM CDT 09/28/2024 11:42 PM CDT Arya Vincent MD LAB POCT ORDERABLES - DEVICE Final Result Performing Organization Address [facility] de Phone Number [facility] [address] * (ABNORMAL) Trichomonas vaginalis PCR Vaginal (09/28/2024 5:40 PM CDT) [facility] [place] Trichomonas DNA Detected( A) Not Detected [facility] Vaginal 09/28/2024 5:40 PM CDT 09/28/2024 6:59 PM CDT Narrative [facility] - 09/28/2024 8:44 PM CDT Interpretive Data: This assay detects Trichomonas vaginalis by nucleic acid amplification testing (NAAT). This assay has been cleared by the [place] Food and Drug administration. The performance characteristics of this test have been verified by the [facility] Molecular Infectious Disease laboratory. Excess blood in specimens may be inhibitory and result in false negative results. The performance of this test has not been evaluated in women or individuals less than 18 years of age. Arya Vincent MD LAB MICROBIOLOGY - GENERAL O RDERABLES Final Result Performing Organization Address City/[facility]/ZIP Co de Phone Number [facility] Department [place] [address] [facility] * POCT glucose (09/28/2024 5:04 PM CDT) [facility] [place] Glucose, POC 128 70 - 199 mg/dL Blood 09/28/2024 5:04 PM CDT 09/28/2024 5:04 PM CDT Arya Vincent MD LAB POCT ORDERABLES - DEVICE Final Result Performing Organization Address [facility] de Phone Number [facility] [place] [address] * N. gonorrhoeae/C. trachomatis Amplification Urine (09/28/2024 3:02 PM CDT) [facility] [place] C. trachomatis Not Detected Not Detected [facility] N. gonorrhoeae Not Detected Not Detected [facility] Comment: Interpretive Data This assay detects Chlamydia trachomatis and Neisseria gonorrhoeae by nucleic acid amplification testing (NAAT). This assay has been cleared by the [place] Food and Drug administration. The performance characteristics of this test have been verified by the [facility] Molecular Infectious Disease laboratory. The performance characteristics of this test have not been evaluated in individuals less than 14 years of age. Current Interpretive Data last revised 2023. Urine (None) 09/28/2024 3:02 PM CDT 09/28/2024 3:58 PM CDT Arya Vincent MD LAB MICROBIOLOGY - GENERAL O RDERABLES Final Result Performing Organization Address City/[facility] Co de Phone Number [facility] [place] [address] [facility] * Drugs of Abuse Screen, Urine with Reflex Confirmation (09/28/2024 3:02 PM CDT) [facility] [place] Amphetamine, ur Not Detected [facility] 500ng/mL Comment: Interpretive Data - Amphetamines: Samples containing greater than 500 ng/mL d-methamphetamine or other cross-reacting amphetamine compounds are reported as positive. Amphetamine immunoassays are subject to significant false positive rates due to cross-reactivity of non-amphetamine drugs. Confirmatory testing required for definitive results. Current Interpretive Data was last reviewed 2022. Barbiturates, ur Not Detected CutOff 200ng/mL [facility] Comment: Interpretive Data - Barbiturates: Samples containing greater than 200 ng/mL secobarbital or other cross-reacting barbiturate compounds are reported as positive. False positive and false negative results are possible. Confirmatory testing required for definitive results. Current Interpretive Data was last reviewed 2022. Benzodiazepines, ur Not Detected CutOff 100ng/mL [facility] Comment: Interpretive Data - Benzodiazepines: Samples containing greater than 100 ng/mL nordiazepam or other cross-reacting compounds are reported as positive. False positive and false negative results are possible. Confirmatory testing required for definitive results. Current Interpretive Data was last reviewed 2022. Cannabinoids, ur Not Detected CutOff 50 ng/mL [facility] Comment: Interpretive Data - Cannabinoids: Samples containing greater than 50 ng/mL delta-9 THC -COOH or other cross- reacting compounds are reported as positive. False positive and false negative results are possible. Confirmatory testing required for definitive results. Current Interpretive Data was last reviewed 2022. Cocaine, ur Not Detected CutOff 150ng/mL [facility] Comment: Interpretive Data - Cocaine: Samples containing greater than 150 ng/mL benzoylecgonine or other cross- reacting compounds are reported as positive. False positive and false negative results are possible. Confirmatory testing required for definitive results. Current Interpretive Data was last reviewed 2022. Fentanyl, Ur Not Detected CutOff 5 ng/mL [facility] Comment: Interpretive Data - Fentanyl: Samples containing [...] Opiates, ur Not Detected CutOff 300ng/mL [facility] Comment: Interpretive Data - Opiates: Samples containing greater than 300 ng/mL morphine or other cross-reacting compounds are reported as positive. False positive and false negative results are possible. Confirmatory testing required for definitive results. Current Interpretive Data was last reviewed 2022. Oxycodone, ur Not Detected CutOff 100ng/mL [facility] Comment: Interpretive Data - Oxycodone: Samples containing greater than 100 ng/mL oxycodone or other cross-reacting compounds are reported as positive. False positive and false negative results are possible. Confirmatory testing required for definitive results. Current Interpretive Data was last reviewed 2022. Phencyclidine, ur Not Detected CutOff 25 ng/mL [facility] Comment: Interpretive Data - Phencyclidine: Samples containing greater than 25 ng/mL phencyclidine or other cross-reacting compounds are reported as positive. False positive and false negative results are possible. Confirmatory testing required for definitive results. Current Interpretive Data was last reviewed 2022. Urine Creatinine 20 mg/dL [facility] Comment: Interpretive Data Urine Creatinine: < 10 mg/dL is extremely dilute = or > 10 but < 20 mg/dL is dilute = or > 20 mg/dL is normal Current Interpretive Data was last revised on 2017. Urine 09/28/2024 3:02 PM CDT 09/28/2024 4:20 PM CDT Narrative [facility] - 09/28/2024 5:19 PM CDT Drug of Abuse screening is performed by immunoassay for medical purposes only. This is not to be used for Pain Management purposes. If Detected, confirmation testing will be performed for Amphetamines, Cocaine, Fentanyl, Methadone, Opiates, Oxycodone or Phencyclidine. Arya Vincent MD LAB URINE ORDERABLES Final R esult [facility] [place] [address] * POCT glucose (09/28/2024 11:51 AM CDT) [facility] [place] Glucose, POC 82 70 - 199 mg/dL Blood 09/28/2024 11:5 1 AM CDT 09/28/2024 11:51 AM CDT Result [facility] Arya Vincent MD LAB POCT ORDERABLES - DEVICE Final Result Performing Organization Address [facility] [place] [address] * Reflex Hepatitis C RNA, Quantitative (09/28/2024 11:04 AM CDT) [facility] [place] HCV RNA result Not Detected [facility] Comment: The quantifiable range of this assay is 15 IU/mL to 100,000,000 IU/mL (1.18 log IU/mL to 8.00 log IU/mL). Testing was performed by the [employer] 6800 HCV Test ([employer] Testing performed at [facility] Current Interpretive Data was last revised on 2020 Blood 09/28/2024 11:0 4 AM CDT 09/29/2024 1:59 PM CDT Arya Vincent MD LAB BLOOD ORDERABLES Final R esult Performing Organization Address [facility] Co de Phone Number [facility] [place] [address] [facility] * HIV 1/2 Antibody plus p24 Antigen Blood (09/28/2024 11:04 AM CDT) [facility] [place] HIV 1/2 ab + p24 ag Nonreactive [...] O RDERABLES Final Result Performing Organization Address City/[facility] Co de Phone Number [facility] [place] [address] * (ABNORMAL) Hepatitis C antibody Blood (09/28/2024 [...] O RDERABLES Final Result Performing Organization Address City/[facility] Co de Phone Number [facility] [place] [address] * (ABNORMAL) Hepatitis A antibody, total Blood (09/28/2024 11:04 AM CDT) Hep A total Reactive(A ) Nonreactive Blood 09/28/2024 11:0 4 AM CDT 09/28/2024 12:28 PM CDT Arya Vincent MD LAB MICROBIOLOGY - GENERAL O RDERABLES Final Result Performing Organization Address City/[facility] Co de Phone Number [id number] [place] [address] * Hepatitis B core antibody, total Blood (09/28/2024 11:04 AM CDT) Hep B core IgG/IgM Nonreactive Nonreactive Blood 09/28/2024 11:0 4 AM CDT 09/28/2024 12:28 PM CDT Arya Vincent MD LAB MICROBIOLOGY - GENERAL O RDERABLES Final Result Performing Organization Address City/[facility]/ZIP Co de Phone Number [facility] [place] [address] * RPR Blood (09/28/2024 11:04 AM CDT) Pathologist [facility] RPR Nonreactive Nonreactive Blood 09/28/2024 11:0 4 AM CDT 09/28/2024 11:55 AM CDT Arya Vincent MD LAB MICROBIOLOGY - GENERAL O RDERABLES Final Result Performing Organization Address [facility] Co de Phone Number [facility] [place] [place] [address] * Hepatitis B surface antibody (immune status) Blood (09/28/2024 11:04 AM CDT) Pathologist [facility] HBsAb (immune status) Reactive Comment:This result is consi stent with immunity to Hepatitis B Virus when used in the setting of routine screening. Current interpretive data was last revised on 21 HBsAb (immune status) index 281.0 mIUnits/m L [facility] Blood 09/28/2024 11:0 4 AM CDT 09/28/2024 12:28 PM CDT Arya Vincent MD LAB MICROBIOLOGY - GENERAL O RDERABLES Final Result Performing Organization Address City/[facility] Co de Phone Number [facility] [place] [place] [address] * Hepatitis B Surface Antigen Blood (09/28/2024 11:04 AM CDT) Pathologist [facility] HepBsAg Nonreactive Nonreactive Blood 09/28/2024 11:0 4 AM CDT 09/28/2024 12:28 PM CDT Arya Vincent MD LAB MICROBIOLOGY - GENERAL O RDERABLES Final Result Performing Organization Address City/[facility]/ZIP Co de Phone Number [facility] Department [place] [address] * POCT glucose (09/28/2024 7:52 AM CDT) [facility] [place] Glucose, POC 80 70 - 199 mg/dL Blood 09/28/2024 7:52 AM CDT 09/28/2024 7:52 AM CDT Arya Vincent MD LAB POCT ORDERABLES - DEVICE Final Result Performing Organization Address City/[facility] Co de Phone Number [facility] Department [place] [address] * (ABNORMAL) eGFR (09/27/2024 10:15 PM CDT) [facility] [place] eGFR 19(L) >=60 mL/min/1. 73 m2 Comment: [...] 5 PM CDT 09/27/2024 10:45 PM CDT Kirk Gaming MD LAB BLOOD ORDERABLES F inal Result [facility] [place] [address] * (ABNORMAL) Renal function panel (09/27/2024 10:15 PM CDT) Sodium 135 135 - 145 mmol/L Potassium, pl 3.8 3.3 - 4.9 mmol/L [facility] Chloride 98 97 - 110 mmol/L [facility] CO2 30 22 - 32 mmol/L [facility] Anion gap 7 2 - 15 mmol/L [facility] BUN 14 6 - 25 mg/dL [facility] Creatinine 3.27(H) 0.60 - 1.10 mg/dL [facility] Glucose 86 70 - 199 mg/dL [facility] Comment: Interpretive Data Fasting glucose >/= 126 [...] 2022. Calcium 7.7(L) 8.5 - 10.3 mg/dL [facility] Phosphorus, pl 1.7(L) 2.3 - 4.5 mg/dL [facility] Albumin 2.1(L) 3.5 - 5.0 g/dL [facility] Blood 09/27/2024 10:1 5 PM CDT 09/27/2024 10:45 PM CDT us Kirk Gaming MD LAB BLOOD ORDERABLES F inal Result Performing Organization Address City/[facility]/ZIP Co de Phone Number [facility] [place] [place] [address] * POCT glucose (09/27/2024 9:07 PM CDT) Glucose, POC 103 70 - 199 mg/dL Blood 09/27/2024 9:07 PM CDT 09/27/2024 9:07 PM CDT Arya Vincent MD LAB POCT ORDERABLES - DEVICE Final Result Performing Organization Address [facility] Co de Phone Number [facility] [place] [place] [address] * POCT glucose (09/27/2024 5:26 PM CDT) Glucose, POC 124 70 - 199 mg/dL Blood 09/27/2024 5:26 PM CDT 09/27/2024 5:26 PM CDT Arya Vincent MD LAB POCT ORDERABLES - DEVICE Final Result Performing Organization Address [facility] Co de Phone Number [facility] [place] [address] * POCT glucose (09/27/2024 12:43 PM CDT) Glucose, POC 70 70 - 199 mg/dL Blood 09/27/2024 12:4 3 PM CDT 09/27/2024 12:43 PM CDT Arya Vincent MD LAB POCT ORDERABLES - DEVICE Final Result Performing Organization Address City/[facility] Co de Phone Number [facility] [place] [address] * Post Dialysis BUN (09/27/2024 12:11 PM CDT) BUN Post 7 6 - 25 mg/dL Blood 09/27/2024 12:1 1 PM CDT 09/27/2024 12:24 PM CDT Tarik Damon MD LAB BLOOD ORDERABLES Final Result Performing Organization Address City/[facility] Co de Phone Number [facility] [place] [address] * POCT glucose (09/27/2024 11:01 AM CDT) Glucose, POC 91 70 - 199 mg/dL Blood 09/27/2024 11:0 1 AM CDT 09/27/2024 11:01 AM CDT Arya Vincent MD LAB POCT ORDERABLES - DEVICE Final Result Performing Organization Address [facility] Co de Phone Number [facility] [place] [place] [address] * POCT glucose (09/27/2024 10:07 AM CDT) Glucose, POC 73 70 - 199 mg/dL Blood 09/27/2024 10:0 7 AM CDT 09/27/2024 10:07 AM CDT Arya Vincent MD LAB POCT ORDERABLES - DEVICE Final Result Performing Organization Address City/[facility] Co de Phone Number [facility] [place] [address] * Pre Dialysis BUN (09/27/2024 8:32 AM CDT) BUN Pre 22 6 - 25 mg/dL Blood 09/27/2024 8:32 AM CDT 09/27/2024 8:51 AM CDT Tarik Damon MD LAB BLOOD ORDERABLES Final Result Performing Organization Address [facility] Co de Phone Number [facility] [place] [address] * Hepatitis B Surface Antigen Blood (09/27/2024 8:32 AM CDT) HepBsAg Nonreactive Nonreactive Blood 09/27/2024 8:32 AM CDT 09/27/2024 8:51 AM CDT Tarik Damon MD LAB MICROBIOLOGY - GE NERAL ORDERABLES Final Result Performing Organization Address [facility] de Phone Number [facility] [place] [address] * POCT glucose (09/27/2024 7:34 AM CDT) Glucose, POC 71 70 - 199 mg/dL Blood 09/27/2024 7:34 AM CDT 09/27/2024 7:34 AM CDT Arya Vincent MD LAB POCT ORDERABLES - DEVICE Final Result Performing Organization Address [facility] de Phone Number [facility] Department [place] [address] * POCT glucose (09/26/2024 9:35 PM CDT) Glucose, POC 75 70 - 199 mg/dL Blood 09/26/2024 9:35 PM CDT 09/26/2024 9:35 PM CDT Arya Vincent MD LAB POCT ORDERABLES - DEVICE Final Result Performing Organization Address [facility]/State/[place] [address] * POCT glucose (09/26/2024 6:22 PM CDT) Glucose, POC 83 70 - 199 mg/dL Blood 09/26/2024 6:22 PM CDT 09/26/2024 6:22 PM CDT us Arya Vincent MD LAB POCT ORDERABLES - DEVICE Final Result Performing Organization Address [facility] [place] [address] * POCT glucose (09/26/2024 1:11 PM CDT) Glucose, POC 75 70 - 199 mg/dL Blood 09/26/2024 1:11 PM CDT 09/26/2024 1:11 PM CDT us Arya Vincent MD LAB POCT ORDERABLES - DEVICE Final Result Performing Organization Address [facility]/[place] [address] * POCT glucose (09/26/2024 9:17 AM CDT) Glucose, POC 89 70 - 199 mg/dL Blood 09/26/2024 9:17 AM CDT 09/26/2024 9:17 AM CDT us Arya Vincent MD LAB POCT ORDERABLES - DEVICE Final Result Performing Organization Address City/[facility] [place] [address] * (ABNORMAL) POCT glucose (09/26/2024 8:47 AM CDT) Glucose, POC 69(L) 70 - 199 mg/dL Blood 09/26/2024 8:47 AM CDT 09/26/2024 8:47 AM CDT us Arya Vincent MD LAB POCT ORDERABLES - DEVICE Final Result Performing Organization Address City/[facility]/ZIP Co de Phone Number [facility] Department [place] [address] * (ABNORMAL) eGFR (09/25/2024 9:54 PM CDT) [facility] [place] eGFR 14(L) >=60 mL/min/1. 73 m2 Comment: [...] ORDERABLES F inal Result Performing Organization Address City/[facility]/ZIP Co de Phone Number [facility] Department [place] [address] * (ABNORMAL) Renal function panel (09/25/2024 9:54 PM CDT) [facility] [place] Sodium 134(L) 135 - 145 mmol/L Potassium, pl 4.3 3.3 - 4.9 mmol/L [facility] Chloride 99 97 - 110 mmol/L [facility] CO2 29 22 - 32 mmol/L [facility] Anion gap 6 2 - 15 mmol/L [facility] BUN 19 6 - 25 mg/dL [facility] Creatinine 4.22(H) 0.60 - 1.10 mg/dL [facility] Glucose 71 70 - 199 mg/dL [facility] Comment: Interpretive Data Fasting glucose >/= 126 [...] 2022. Calcium 8.1(L) 8.5 - 10.3 mg/dL [facility] Phosphorus, pl 2.8 2.3 - 4.5 mg/dL [facility] Albumin 2.1(L) 3.5 - 5.0 g/dL [facility] Blood 09/25/2024 9:54 PM CDT 09/25/2024 11:04 PM CDT us Kirk Gaming MD LAB BLOOD ORDERABLES F inal Result [facility] Department [place] [address] * POCT glucose (09/25/2024 8:15 PM CDT) [facility] [place] Glucose, POC 93 70 - 199 mg/dL Blood 09/25/2024 8:15 PM CDT 09/25/2024 8:15 PM CDT us Arya Vincent MD LAB POCT ORDERABLES - DEVICE Final Result Performing Organization Address [facility] Co de Phone Number [facility] [place] [address] * POCT glucose (09/25/2024 6:12 PM CDT) Glucose, POC 92 70 - 199 mg/dL Comment:Glu2: RN/MD Notified Glucose comment 1 Glu2: RN/MD Notified [facility] Blood 09/25/2024 6:12 PM CDT 09/25/2024 6:12 PM CDT us Arya Vincent MD LAB POCT ORDERABLES - DEVICE Final Result Performing Organization Address [facility] Co de Phone Number [facility] [place] [address] * POCT glucose (09/25/2024 5:17 PM CDT) Glucose, POC 85 70 - 199 mg/dL Blood 09/25/2024 5:17 PM CDT 09/25/2024 5:17 PM CDT us Arya Vincent MD LAB POCT ORDERABLES - DEVICE Final Result Performing Organization Address [facility] Co de Phone Number [facility] Department [place] [address] * POCT glucose (09/25/2024 12:27 PM CDT) Glucose, POC 79 70 - 199 mg/dL Blood 09/25/2024 12:2 7 PM CDT 09/25/2024 12:27 PM CDT Arya Vincent MD LAB POCT ORDERABLES - DEVICE Final Result Performing Organization Address [facility] Co de Phone Number [facility] [place] [address] * POCT glucose (09/25/2024 7:43 AM CDT) Glucose, POC 76 70 - 199 mg/dL Comment:Glu2: RN/MD Notified Glucose comment 1 Glu2: RN/MD Notified [facility] Blood 09/25/2024 7:43 AM CDT 09/25/2024 7:43 AM CDT us Arya Vincent MD LAB POCT ORDERABLES - DEVICE Final Result Performing Organization Address City/[facility]/[place] [address] * POCT glucose (09/25/2024 3:34 AM CDT) Glucose, POC 78 70 - 199 mg/dL Blood 09/25/2024 3:34 AM CDT 09/25/2024 3:34 AM CDT Arya Vincent MD LAB POCT ORDERABLES - DEVICE Final Result Performing Organization Address [facility]/[place] [address] * POCT glucose (09/24/2024 9:42 PM CDT) Glucose, POC 83 70 - 199 mg/dL Blood 09/24/2024 9:42 PM CDT 09/24/2024 9:42 PM CDT us Arya Vincent MD LAB POCT ORDERABLES - DEVICE Final Result Performing Organization Address City/[facility] Co de Phone Number [facility] [place] [address] * POCT glucose (09/24/2024 5:06 PM CDT) Glucose, POC 104 70 - 199 mg/dL Blood 09/24/2024 5:06 PM CDT 09/24/2024 5:06 PM CDT Gianni Huerta MD LAB POCT ORDERABLES - DEV ICE Final Result Performing Organization Address City/[facility] Co de Phone Number [facility] [place] [address] * POCT glucose (09/24/2024 12:09 PM CDT) Glucose, POC 84 70 - 199 mg/dL Blood 09/24/2024 12:0 9 PM CDT 09/24/2024 12:09 PM CDT Gianni Huerta MD LAB POCT ORDERABLES - DEV ICE Final Result Performing Organization Address [facility] de Phone Number [facility] [place] [address] * (ABNORMAL) POCT glucose (09/24/2024 11:14 AM CDT) Glucose, POC 68(L) 70 - 199 mg/dL Blood 09/24/2024 11:1 4 AM CDT 09/24/2024 11:14 AM CDT Gianni Huerta MD LAB POCT ORDERABLES - DEV ICE Final Result Performing Organization Address [facility] [place] [address] * POCT glucose (09/24/2024 12:09 AM CDT) Glucose, POC 81 70 - 199 mg/dL Blood 09/24/2024 12:0 9 AM CDT 09/24/2024 12:09 AM CDT us Gianni Huerta MD LAB POCT ORDERABLES - DEV ICE Final Result Performing Organization Address [facility] Co de Phone Number [facility] [place] [address] * (ABNORMAL) eGFR (09/23/2024 11:05 PM CDT) eGFR 12(L) >=60 mL/min/1. 73 [...] ORDERABLES F inal Result Performing Organization Address City/[facility]/ZIP Co de Phone Number [facility] [place] [address] * Differential, auto (09/23/2024 11:05 PM CDT) Neutrophil abs 4.40 1.50 - 6.50 K/cumm Imm gran abs 0.02 0.00 - 0.10 K/cumm [facility] Lymphocyte abs 2.23 0.80 - 3.30 K/cumm [facility] Monocyte abs 0.72 0.20 - 0.80 K/cumm [facility] Eosinophil abs 0.13 0.00 - 0.50 K/cumm [facility] Basophil abs 0.04 0.00 - 0.10 K/cumm [facility] Neutrophil pct 58.4 % [facility] Comment: Interpretive Data Percent cell count reference ranges are not reported, since discordance with absolute values may lead to misinterpretation of CBC data. Current Interpretive Data was last revised on 2017. Imm gran pct 0.3 % [facility] Comment: Interpretive Data Percent cell count reference ranges are not reported, since discordance with absolute values may lead to misinterpretation of CBC data. Current Interpretive Data was last revised on 2017. Lymphocyte pct 29.6 % [facility] Comment: Interpretive Data Percent cell count reference ranges are not reported, since discordance with absolute values may lead to misinterpretation of CBC data. Current Interpretive Data was last revised on 2017. Monocyte pct 9.5 % [facility] Comment: Interpretive Data Percent cell count reference ranges are not reported, since discordance with absolute values may lead to misinterpretation of CBC data. Current Interpretive Data was last revised on 2017. Eosinophil pct 1.7 % [facility] Comment: Interpretive Data Percent cell count reference ranges are not reported, since discordance with absolute values may lead to misinterpretation of CBC data. Current Interpretive Data was last revised on 2017. Basophil pct 0.5 % [facility] Comment: Interpretive Data Percent cell count reference ranges are not reported, since discordance with absolute values may lead to misinterpretation of CBC data. Current Interpretive Data was last revised on 2017. Blood 09/23/2024 11:0 5 PM CDT 09/24/2024 1:14 AM CDT Elizabet Dickey MD LAB BLOOD ORDERABLES F inal Result [facility] [place] [address] * (ABNORMAL) CBC with auto differential (09/23/2024 11:05 PM CDT) [facility] WBC 7.54 3.80 - 9.90 K/cumm Hgb 8.4(L) 11.9 - 15.5 g/dL [facility] Hct 27.1(L) 35.6 - 45.5 % [facility] Plt 224 150 - 400 K/cumm [facility] MPV 10.8 9.1 - 12.3 fL [facility] RBC 3.04(L) 3.90 - 5.20 M/cumm [facility] MCV 89.1 81.3 - 96.4 fL [facility] MCH 27.6 27.1 - 33.3 pg [facility] MCHC 31.0(L) 32.3 - 35.7 g/dL [facility] RDW CV 17.8(H) 11.1 - 14.9 % [facility] RDW SD 57.4(H) 35.7 - 48.1 fL [facility] NRBC abs 0.00 0.00 - 0.01 K/cumm [facility] Blood 09/23/2024 11:0 5 PM CDT 09/24/2024 1:14 AM CDT us Elizabet Dickey MD LAB BLOOD ORDERABLES F inal Result Performing Organization Address City/[facility] Co de Phone Number [facility] Department [place] [address] * Phosphorus (09/23/2024 11:05 PM CDT) [facility] Phosphorus, pl 2.8 2.3 - 4.5 mg/dL Blood 09/23/2024 11:0 5 PM CDT 09/23/2024 11:59 PM CDT Kirk Gaming MD LAB BLOOD ORDERABLES F inal Result Performing Organization Address City/[facility]/ZIP Co de Phone Number [facility] Department [place] [address] * Bilirubin, direct (09/23/2024 11:05 PM CDT) Pathologist [facility] Bilirubin, direct <0.2 0.1 - 0.3 mg/dL Comment:Repeated and Verifie d Blood 09/23/2024 11:0 5 PM CDT 09/23/2024 11:59 PM CDT us Kirk Gaming MD LAB BLOOD ORDERABLES F inal Result Performing Organization Address [facility] de Phone Number [facility] [place] [address] * (ABNORMAL) Comprehensive metabolic panel (09/23/2024 11:05 PM CDT) [facility] Sodium 134(L) 135 - 145 mmol/L Potassium, pl 4.0 3.3 - 4.9 mmol/L [facility] Chloride 97 97 - 110 mmol/L [facility] CO2 30 22 - 32 mmol/L [facility] Anion gap 7 2 - 15 mmol/L [facility] BUN 25 6 - 25 mg/dL [facility] Creatinine 4.85(H) 0.60 - 1.10 mg/dL [facility] Glucose 84 70 - 199 mg/dL [facility] Comment: Interpretive Data Fasting glucose >/= 126 [...] 2022. Calcium 8.0(L) 8.5 - 10.3 mg/dL [facility] Bilirubin, total 0.5 0.1 - 1.2 mg/dL [facility] Protein, pl 7.7 6.5 - 8.5 g/dL [facility] Albumin 2.1(L) 3.5 - 5.0 g/dL [facility] Alk phos 107 40 - 130 Units/L [facility] ALT 5(L) 7 - 45 Units/L [facility] AST 17 10 - 45 Units/L [facility] Blood 09/23/2024 11:0 5 PM CDT 09/23/2024 11:59 PM CDT Kirk Gaming MD LAB BLOOD ORDERABLES F inal Result Performing Organization Address [facility]/ZIP Co de Phone Number [facility] [place] [address] * POCT glucose (09/23/2024 6:42 PM CDT) Glucose, POC 85 70 - 199 mg/dL Blood 09/23/2024 6:42 PM CDT 09/23/2024 6:42 PM CDT Gianni Huerta MD LAB POCT ORDERABLES - DEV ICE Final Result Performing Organization Address [facility] Co de Phone Number [facility] [place] [address] * POCT glucose (09/23/2024 12:55 PM CDT) Glucose, POC 76 70 - 199 mg/dL Blood 09/23/2024 12:5 5 PM CDT 09/23/2024 12:55 PM CDT Gianni Huerta MD LAB POCT ORDERABLES - DEV ICE Final Result Performing Organization Address [facility] Co de Phone Number [facility] [place] [address] * POCT glucose (09/23/2024 9:34 AM CDT) Glucose, POC 71 70 - 199 mg/dL Blood 09/23/2024 9:34 AM CDT 09/23/2024 9:34 AM CDT Gianni Huerta MD LAB POCT ORDERABLES - DEV ICE Final Result Performing Organization Address City/[facility] Co de Phone Number [facility] [place] [address] * POCT glucose (09/23/2024 12:28 AM CDT) Glucose, POC 89 70 - 199 mg/dL Blood 09/23/2024 12:2 8 AM CDT 09/23/2024 12:28 AM CDT Gianni Huerta MD LAB POCT ORDERABLES - DEV ICE Final Result Performing Organization Address [facility] Co de Phone Number [facility] [place] [place] [address] * POCT glucose (09/22/2024 4:05 PM CDT) Glucose, POC 98 70 - 199 mg/dL Blood 09/22/2024 4:05 PM CDT 09/22/2024 4:05 PM CDT Gianni Huerta MD LAB POCT ORDERABLES - DEV ICE Final Result Performing Organization Address [facility] Co de Phone Number [facility] [place] [address] * POCT glucose (09/22/2024 1:35 PM CDT) Glucose, POC 113 70 - 199 mg/dL Blood 09/22/2024 1:35 PM CDT 09/22/2024 1:35 PM CDT Gianni Huerta MD LAB POCT ORDERABLES - DEV ICE Final Result Performing Organization Address City/[facility] Co de Phone Number [facility] [place] [address] * (ABNORMAL) POCT glucose (09/22/2024 12:20 PM CDT) Glucose, POC 69(L) 70 - 199 mg/dL Comment:Glu2: RN/MD Notified Glucose comment 1 Glu2: RN/MD Notified [facility] Blood 09/22/2024 12:2 0 PM CDT 09/22/2024 12:20 PM CDT Gianni Huerta MD LAB POCT ORDERABLES - DEV ICE Final Result Performing Organization Address City/[facility]/ZIP Co de Phone Number [facility] [place] [address] * POCT glucose (09/22/2024 8:14 AM CDT) Glucose, POC 103 70 - 199 mg/dL Blood 09/22/2024 8:14 AM CDT 09/22/2024 8:14 AM CDT Gianni Huerta MD LAB POCT ORDERABLES - DEV ICE Final Result Performing Organization Address City/[facility] [place] [address] * (ABNORMAL) POCT glucose (09/22/2024 7:25 AM CDT) Glucose, POC 66(L) 70 - 199 mg/dL Blood 09/22/2024 7:25 AM CDT 09/22/2024 7:25 AM CDT Result Camryn Huerta MD LAB POCT ORDERABLES - DEV ICE Final Result Performing Organization Address [facility] de Phone Number [facility] [place] [address] * POCT glucose (09/21/2024 9:12 PM CDT) Glucose, POC 120 70 - 199 mg/dL Blood 09/21/2024 9:12 PM CDT 09/21/2024 9:12 PM CDT Result Camryn Huerta MD LAB POCT ORDERABLES - DEV ICE Final Result Performing Organization Address [facility] de Phone Number [facility] [place] [address] * POCT glucose (09/21/2024 4:21 PM CDT) Glucose, POC 104 70 - 199 mg/dL Blood 09/21/2024 4:21 PM CDT 09/21/2024 4:21 PM CDT Result Camryn Huerta MD LAB POCT ORDERABLES - DEV ICE Final Result Performing Organization Address [facility] de Phone Number [facility] [place] [address] * POCT glucose (09/21/2024 1:56 PM CDT) Glucose, POC 102 70 - 199 mg/dL Blood 09/21/2024 1:56 PM CDT 09/21/2024 1:56 PM CDT Result Camryn Huerta MD LAB POCT ORDERABLES - DEV ICE Final Result Performing Organization Address [facility] Co de Phone Number [facility] [place] [address] * (ABNORMAL) POCT glucose (09/21/2024 1:25 PM CDT) Glucose, POC 62(L) 70 - 199 mg/dL Blood 09/21/2024 1:25 PM CDT 09/21/2024 1:25 PM CDT Gianni Huerta MD LAB POCT ORDERABLES - DEV ICE Final Result Performing Organization Address [facility] [place] [address] * POCT glucose (09/21/2024 11:19 AM CDT) Glucose, POC 89 70 - 199 mg/dL Blood 09/21/2024 11:1 9 AM CDT 09/21/2024 11:19 AM CDT Gianni Huerta MD LAB POCT ORDERABLES - DEV ICE Final Result Performing Organization Address [facility] Co de Phone Number [facility] [place] [place] [address] * (ABNORMAL) POCT glucose (09/21/2024 10:03 AM CDT) Glucose, POC 69(L) 70 - 199 mg/dL Blood 09/21/2024 10:0 3 AM CDT 09/21/2024 10:03 AM CDT us Gianni Huerta MD LAB POCT ORDERABLES - DEV ICE Final Result Performing Organization Address [facility] Co de Phone Number [facility] [place] [address] * POCT glucose (09/21/2024 8:02 AM CDT) Glucose, POC 73 70 - 199 mg/dL Blood 09/21/2024 8:02 AM CDT 09/21/2024 8:02 AM CDT Gianni Huerta MD LAB POCT ORDERABLES - DEV ICE Final Result Performing Organization Address City/[facility]/ZIP Co de Phone Number [facility] Department [place] [address] * POCT glucose (09/20/2024 9:21 PM CDT) Glucose, POC 93 70 - 199 mg/dL Blood 09/20/2024 9:21 PM CDT 09/20/2024 9:21 PM CDT Gianni Huerta MD LAB POCT ORDERABLES - DEV ICE Final Result Performing Organization Address City/[facility] Co de Phone Number [facility] Department [place] [address] * (ABNORMAL) eGFR (09/20/2024 9:01 PM CDT) [...] MD LAB BLOOD ORDERABLES F inal Result [facility] [place] [address] * Differential, auto (09/20/2024 9:01 PM CDT) Neutrophil abs 5.45 1.50 - 6.50 K/cumm Imm gran abs 0.04 0.00 - 0.10 K/cumm [facility] Lymphocyte abs 2.45 0.80 - 3.30 K/cumm [facility] Monocyte abs 0.80 0.20 - 0.80 K[facility] Eosinophil abs 0.14 0.00 - 0.50 K/cumm [facility] Basophil abs 0.03 0.00 - 0.10 K/cumm [facility] Neutrophil pct 61.2 % [facility] Comment: Interpretive Data Percent cell count reference ranges are not reported, since discordance with absolute values may lead to misinterpretation of CBC data. Current Interpretive Data was last revised on 2017. Imm gran pct 0.4 % [facility] Comment: Interpretive Data Percent cell count reference ranges are not reported, since discordance with absolute values may lead to misinterpretation of CBC data. Current Interpretive Data was last revised on 2017. Lymphocyte pct 27.5 % [facility] Comment: Interpretive Data Percent cell count reference ranges are not reported, since discordance with absolute values may lead to misinterpretation of CBC data. Current Interpretive Data was last revised on 2017. Monocyte pct 9.0 % [facility] Comment: Interpretive Data Percent cell count reference ranges are not reported, since discordance with absolute values may lead to misinterpretation of CBC data. Current Interpretive Data was last revised on 2017. Eosinophil pct 1.6 % [facility] Comment: Interpretive Data Percent cell count reference ranges are not reported, since discordance with absolute values may lead to misinterpretation of CBC data. Current Interpretive Data was last revised on 2017. Basophil pct 0.3 % [facility] Comment: Interpretive Data Percent cell count reference ranges are not reported, since discordance with absolute values may lead to misinterpretation of CBC data. Current Interpretive Data was last revised on 2017. Blood 09/20/2024 9:01 PM CDT 09/20/2024 9:58 PM CDT us Gianni Huerta MD LAB BLOOD ORDERABLES Florinda hanson Result [facility] Department [place] [address] * (ABNORMAL) CBC with auto differential (09/20/2024 9:01 PM CDT) WBC 8.91 3.80 - 9.90 K/cumm Hgb 9.4(L) 11.9 - 15.5 g/dL [facility] Hct 30.5(L) 35.6 - 45.5 % [facility] Plt 233 150 - 400 K/cumm [facility] MPV 10.7 9.1 - 12.3 fL [facility] RBC 3.44(L) 3.90 - 5.20 M/cumm [facility] MCV 88.7 81.3 - 96.4 fL [facility] MCH 27.3 27.1 - 33.3 pg [facility] MCHC 30.8(L) 32.3 - 35.7 g/dL [facility] RDW CV 18.2(H) 11.1 - 14.9 % [facility] RDW SD 57.8(H) 35.7 - 48.1 fL [facility] NRBC abs 0.00 0.00 - 0.01 K/cumm [facility] Blood 09/20/2024 9:01 PM CDT 09/20/2024 9:58 PM CDT us Gianni Huerta MD LAB BLOOD ORDERABLES Florinda l Result Performing Organization Address City/[facility]/ZIP Co de Phone Number [facility] [place] [address] * Magnesium (09/20/2024 9:01 PM CDT) Pathologist [facility] Magnesium 1.7 1.4 - 2.5 mg/dL Blood 09/20/2024 9:01 PM CDT 09/20/2024 9:58 PM CDT us Gianni Huerta MD LAB BLOOD ORDERABLES Florinda l Result Performing Organization Address [facility] de Phone Number [facility] [place] [address] * (ABNORMAL) Renal function panel (09/20/2024 9:01 PM CDT) [facility] Sodium 133(L) 135 - 145 mmol/L Potassium, pl 3.9 3.3 - 4.9 mmol/L [facility] Chloride 98 97 - 110 mmol/L [facility] CO2 27 22 - 32 mmol/L [facility] Anion gap 8 2 - 15 mmol/L [facility] BUN 18 6 - 25 mg/dL [facility] Creatinine 3.72(H) 0.60 - 1.10 mg/dL [facility] Glucose 86 70 - 199 mg/dL [facility] Comment: Interpretive Data Fasting glucose >/= 126 [...] 2022. Calcium 8.2(L) 8.5 - 10.3 mg/dL [facility] Phosphorus, pl 2.9 2.3 - 4.5 mg/dL [facility] Albumin 2.2(L) 3.5 - 5.0 g/dL [facility] Blood 09/20/2024 9:01 PM CDT 09/20/2024 9:58 PM CDT Kirk Gaming MD LAB BLOOD ORDERABLES F inal Result [facility] [place] [address] * POCT glucose (09/20/2024 6:22 PM CDT) Glucose, POC 88 70 - 199 mg/dL Blood 09/20/2024 6:22 PM CDT 09/20/2024 6:22 PM CDT Gianni Huerta MD LAB POCT ORDERABLES - DEV ICE Final Result Performing Organization Address City/[facility]/ZIP Co de Phone Number [facility] [place] [address] * POCT glucose (09/20/2024 4:20 PM CDT) Glucose, POC 86 70 - 199 mg/dL Blood 09/20/2024 4:20 PM CDT 09/20/2024 4:20 PM CDT Gianni Huerta MD LAB POCT ORDERABLES - DEV ICE Final Result Performing Organization Address City/[facility]/ZIP Co de Phone Number [facility] [place] [address] * POCT glucose (09/20/2024 3:06 PM CDT) Glucose, POC 95 70 - 199 mg/dL Blood 09/20/2024 3:06 PM CDT 09/20/2024 3:06 PM CDT Gianni Huerta MD LAB POCT ORDERABLES - DEV ICE Final Result Performing Organization Address City/[facility]/ZIP Co de Phone Number [facility] [place] [address] * (ABNORMAL) POCT glucose (09/20/2024 2:03 PM CDT) Glucose, POC 68(L) 70 - 199 mg/dL Comment:Glu2: RN/MD Notified Glucose comment 1 Glu2: RN/MD Notified [facility] Blood 09/20/2024 2:03 PM CDT 09/20/2024 2:03 PM CDT Gianni Huerta MD LAB POCT ORDERABLES - DEV ICE Final Result Performing Organization Address City/[facility]/[place] [address] * POCT glucose (09/20/2024 11:04 AM CDT) Glucose, POC 79 70 - 199 mg/dL Blood 09/20/2024 11:0 4 AM CDT 09/20/2024 11:04 AM CDT Gianni Huerta MD LAB POCT ORDERABLES - DEV ICE Final Result Performing Organization Address City/[facility]/[place] [address] * POCT glucose (09/20/2024 9:48 AM CDT) Glucose, POC 79 70 - 199 mg/dL Blood 09/20/2024 9:48 AM CDT 09/20/2024 9:48 AM CDT Result Camryn Huerta MD LAB POCT ORDERABLES - DEV ICE Final Result Performing Organization Address [facility] de Phone Number [facility] [place] [place] [address] * POCT glucose (09/20/2024 8:13 AM CDT) Glucose, POC 71 70 - 199 mg/dL Blood 09/20/2024 8:13 AM CDT 09/20/2024 8:13 AM CDT Result Camryn Huerta MD LAB POCT ORDERABLES - DEV ICE Final Result Performing Organization Address [facility] de Phone Number [facility] [place] [address] * POCT glucose (09/20/2024 5:56 AM CDT) Glucose, POC 76 70 - 199 mg/dL Blood 09/20/2024 5:56 AM CDT 09/20/2024 5:56 AM CDT Result Camryn Huerta MD LAB POCT ORDERABLES - DEV ICE Final Result Performing Organization Address [facility] de Phone Number [facility] [place] [place] [address] * POCT glucose (09/20/2024 3:36 AM CDT) Glucose, POC 78 70 - 199 mg/dL Blood 09/20/2024 3:36 AM CDT 09/20/2024 3:36 AM CDT us Gianni Huerta MD LAB POCT ORDERABLES - DEV ICE Final Result Performing Organization Address City/[facility]/ZIP Co de Phone Number [facility] [place] [address] * POCT glucose (09/20/2024 2:16 AM CDT) Glucose, POC 86 70 - 199 mg/dL Blood 09/20/2024 2:16 AM CDT 09/20/2024 2:16 AM CDT Gianni Huerta MD LAB POCT ORDERABLES - DEV ICE Final Result Performing Organization Address [facility] de Phone Number [facility] [place] [address] * (ABNORMAL) POCT glucose (09/20/2024 12:49 AM CDT) Glucose, POC 61(L) 70 - 199 mg/dL Blood 09/20/2024 12:4 9 AM CDT 09/20/2024 12:49 AM CDT us Gianni Huerta MD LAB POCT ORDERABLES - DEV ICE Final Result Performing Organization Address [facility] Co de Phone Number [facility] [place] [address] * POCT glucose (09/19/2024 10:35 PM CDT) Glucose, POC 125 70 - 199 mg/dL Blood 09/19/2024 10:3 5 PM CDT 09/19/2024 10:35 PM CDT us Gianni Huerta MD LAB POCT ORDERABLES - DEV ICE Final Result Performing Organization Address City/[facility]/ZIP Co de Phone Number [facility] [place] [address] * (ABNORMAL) POCT glucose (09/19/2024 9:13 PM CDT) Glucose, POC 69(L) 70 - 199 mg/dL Blood 09/19/2024 9:13 PM CDT 09/19/2024 9:13 PM CDT us Gianni Huerta MD LAB POCT ORDERABLES - DEV ICE Final Result Performing Organization Address City/[facility]/[place] [address] * POCT glucose (09/19/2024 6:36 PM CDT) Glucose, POC 75 70 - 199 mg/dL Blood 09/19/2024 6:36 PM CDT 09/19/2024 6:36 PM CDT Gianni Huerta MD LAB POCT ORDERABLES - DEV ICE Final Result Performing Organization Address [facility] Co de Phone Number [facility] [place] [address] * (ABNORMAL) POCT glucose (09/19/2024 5:51 PM CDT) Glucose, POC 68(L) 70 - 199 mg/dL Blood 09/19/2024 5:51 PM CDT 09/19/2024 5:51 PM CDT us Gianni Huerta MD LAB POCT ORDERABLES - DEV ICE Final Result [facility] [place] [address] * TRANSTHORACIC ECHO (TTE) LIMITED/FOLLOW UP W LTD DOPPLER/CF WO CONTRAST (09/19/2024 5:11 PM CDT) Anatomical Region Laterality Modality Ultrasound 09/19/2024 4:1 6 PM CDT Narrative 09/19/2024 5:51 PM CDT [facility] [place] [address] Transthoracic Echocardiographic Report Patient Name: TIFFANY MILLER T : 1995 (29y ) Gender: F Study Date: 09/19/2024 04:16:47 PM Ht(Inch): 67 Wt(Lb): 164.9 BSA: 1.88 [place] Cook: Diana Urbano RDCS Location: [id number] Order Provider: GIANNI HUERTA Heart Rate: 103 [...] Procedure Note Benjamin Parson MD - 09/19/2024 [facility] [place] [address] Transthoracic Echocardiographic Report Patient Name: TIFFANY MILLER Abdirizak : 1995 (29y ) Gender: F Study Date: 09/19/2024 04:16:47 PM Ht(Inch): 67 Wt(Lb): 164.9 BSA: 1.88 [place] Cook: Diana Urbano [facility] Location: [id number] Order Provider:GIANNI HUERTA Heart Rate: 103 BMI: [...] Benjamin Parson MD 09/19/2024 5:51:16 PM CDT us Gianni Huerta MD CV ECHO PROCEDURES Final Result * POCT glucose (09/19/2024 1:50 AM CDT) Glucose, POC 121 70 - 199 mg/dL Blood 09/19/2024 1:50 AM CDT 09/19/2024 1:50 AM CDT us Gianni Huerta MD LAB POCT ORDERABLES - DEV ICE Final Result [facility] Department [place] [address] * POCT glucose (09/19/2024 12:26 AM CDT) Glucose, POC 92 70 - 199 mg/dL Blood 09/19/2024 12:2 6 AM CDT 09/19/2024 12:26 AM CDT us Gianni Huerta MD LAB POCT ORDERABLES - DEV ICE Final Result Performing Organization Address [facility] de Phone Number [facility] [place] [address] * POCT glucose (09/18/2024 11:12 PM CDT) Glucose, POC 73 70 - 199 mg/dL Blood 09/18/2024 11:1 2 PM CDT 09/18/2024 11:12 PM CDT us Gianni Huerta MD LAB POCT ORDERABLES - DEV ICE Final Result Performing Organization Address [facility] de Phone Number [facility] [place] [address] * (ABNORMAL) POCT glucose (09/18/2024 10:55 PM CDT) [facility] Glucose, POC 65(L) 70 - 199 mg/dL Blood 09/18/2024 10:5 5 PM CDT 09/18/2024 10:55 PM CDT Gianni Huerta MD LAB POCT ORDERABLES - DEV ICE Final Result Performing Organization Address [facility] de Phone Number [facility] [place] [address] * (ABNORMAL) eGFR (09/18/2024 8:36 PM CDT) Pathologist [facility] eGFR 17(L) >=60 mL/min/1. 73 m2 Comment: [...] MD LAB BLOOD ORDERABLES F inal Result [facility] [place] [address] * (ABNORMAL) Renal function panel (09/18/2024 8:36 PM CDT) Sodium 134(L) 135 - 145 mmol/L Potassium, pl 4.3 3.3 - 4.9 mmol/L [facility] Chloride 97 97 - 110 mmol/L [facility] CO2 27 22 - 32 mmol/L [facility] Anion gap 10 2 - 15 mmol/L [facility] BUN 18 6 - 25 mg/dL [facility] Creatinine 3.60(H) 0.60 - 1.10 mg/dL [facility] Glucose 68(L) 70 - 199 mg/dL [facility] Comment: Interpretive Data Fasting glucose >/= 126 [...] 2022. Calcium 8.2(L) 8.5 - 10.3 mg/dL [facility] Phosphorus, pl 3.0 2.3 - 4.5 mg/dL [facility] Albumin 2.1(L) 3.5 - 5.0 g/dL [facility] Blood 09/18/2024 8:36 PM CDT 09/18/2024 9:25 PM CDT Kirk Gaming MD LAB BLOOD ORDERABLES F inal Result Performing Organization Address [facility] Co de Phone Number [facility] [place] [address] * POCT glucose (09/18/2024 8:00 PM CDT) Glucose, POC 88 70 - 199 mg/dL Comment:Glu2: RN/MD Notified Glucose comment 1 Glu2: RN/MD Notified [facility] Blood 09/18/2024 8:00 PM CDT 09/18/2024 8:00 PM CDT Result [facility] Gianni Huerta MD LAB POCT ORDERABLES - DEV ICE Final Result Performing Organization Address [facility] Co de Phone Number [facility] [place] [address] * POCT glucose (09/18/2024 5:57 PM CDT) Glucose, POC 77 70 - 199 mg/dL Blood 09/18/2024 5:57 PM CDT 09/18/2024 5:57 PM CDT Gianni Huerta MD LAB POCT ORDERABLES - DEV ICE Final Result Performing Organization Address [facility] Co de Phone Number ARAMIS YING [facility] [place] [address] * XR Abdomen Ap 1 Vw (09/18/2024 4:26 PM CDT) Anatomical Region Laterality Modality Body, Abdomen N/A Computed Radiogr aphy 09/18/2024 4:32 PM CDT Impressions 09/18/2024 4:38 PM CDT Intrauterine device overlies the pelvis. Normal bowel gas pattern. Dictated by: Gsu Pedersen MD The radiology attending physician has [...] DEV ICE Final Result Performing Organization Address City/State/[facility] Co de Phone Number [facility] [place] [address] * POCT glucose (09/18/2024 10:23 AM CDT) Glucose, POC 110 70 - 199 mg/dL Blood 09/18/2024 10:2 3 AM CDT 09/18/2024 10:23 AM CDT us Gianni Huerta MD LAB POCT ORDERABLES - DEV ICE Final Result Performing Organization Address [facility] [place] [address] * POCT glucose (09/18/2024 9:02 AM CDT) Glucose, POC 137 70 - 199 mg/dL Blood 09/18/2024 9:02 AM CDT 09/18/2024 9:02 AM CDT us Gianni Huerta MD LAB POCT ORDERABLES - DEV ICE Final Result Performing Organization Address [facility] [place] [address] * (ABNORMAL) POCT glucose (09/18/2024 7:48 AM CDT) Glucose, POC 66(L) 70 - 199 mg/dL Blood 09/18/2024 7:48 AM CDT 09/18/2024 7:48 AM CDT us Gianni Huerta MD LAB POCT ORDERABLES - DEV ICE Final Result Performing Organization Address City/[facility]/ZIP Co de Phone Number [facility] [place] [address] * Cortisol (09/18/2024 6:17 AM CDT) Cortisol 15.5 4.8 - 19.5 mcg/dL Comment: Interpretive Data: Morning hours 6-10 a.m. 4.8 - 19.5 mcg/dL Afternoon hours 4-8 p.m. 2.5 - 11.9 mcg/dL This analyte undergoes marked diurnal variation. Current interpretive data was last revised 23. Blood 09/18/2024 6:17 AM CDT 09/18/2024 7:35 AM CDT Valerie Cooper MD PhD LAB BLOOD ORDERABLES Final Result Performing Organization Address [facility] Co de Phone Number [facility] [place] [address] * POCT glucose (09/17/2024 10:21 PM CDT) Glucose, POC 105 70 - 199 mg/dL Blood 09/17/2024 10:2 1 PM CDT 09/17/2024 10:21 PM CDT Valerie Cooper MD PhD LAB POCT ORDERABLES - DEVICE Final Result Performing Organization Address [facility] Co de Phone Number [facility] [place] [address] * POCT glucose (09/17/2024 9:21 PM CDT) Glucose, POC 149 70 - 199 mg/dL Blood 09/17/2024 9:21 PM CDT 09/17/2024 9:21 PM CDT us Valerie Cooper MD PhD LAB POCT ORDERABLES - DEVICE Final Result Performing Organization Address [facility] Co de Phone Number [facility] [place] [address] * POCT glucose (09/17/2024 8:54 PM CDT) Glucose, POC 96 70 - 199 mg/dL Blood 09/17/2024 8:54 PM CDT 09/17/2024 8:54 PM CDT Valerie Cooper MD PhD LAB POCT ORDERABLES - DEVICE Final Result Performing Organization Address City/[facility] Co de Phone Number [facility] [place] [address] * POCT glucose (09/17/2024 8:17 PM CDT) Glucose, POC 97 70 - 199 mg/dL Blood 09/17/2024 8:17 PM CDT 09/17/2024 8:17 PM CDT Valerie Cooper MD PhD LAB POCT ORDERABLES - DEVICE Final Result Performing Organization Address [facility] Co de Phone Number [facility] [place] [address] * POCT glucose (09/17/2024 8:01 PM CDT) Glucose, POC 83 70 - 199 mg/dL Blood 09/17/2024 8:01 PM CDT 09/17/2024 8:01 PM CDT Valerie Cooper MD PhD LAB POCT ORDERABLES - DEVICE Final Result Performing Organization Address City/[facility] Co de Phone Number [facility] [place] [address] * POCT glucose (09/17/2024 7:48 PM CDT) Glucose, POC 78 70 - 199 mg/dL Blood 09/17/2024 7:48 PM CDT 09/17/2024 7:48 PM CDT Valerie Cooper MD PhD LAB POCT ORDERABLES - DEVICE Final Result Performing Organization Address [facility] Co de Phone Number [facility] [place] [address] * (ABNORMAL) POCT glucose (09/17/2024 7:21 PM CDT) Glucose, POC 68(L) 70 - 199 mg/dL Blood 09/17/2024 7:21 PM CDT 09/17/2024 7:21 PM CDT Valerie Cooper MD PhD LAB POCT ORDERABLES - DEVICE Final Result Performing Organization Address [facility] Phone Number [facility] [place] [address] * POCT glucose (09/17/2024 6:49 PM CDT) Glucose, POC 91 70 - 199 mg/dL Blood 09/17/2024 6:49 PM CDT 09/17/2024 6:49 PM CDT Valerie Cooper MD PhD LAB POCT ORDERABLES - DEVICE Final Result Performing Organization Address [facility] Phone Number [facility] [place] [address] * POCT glucose (09/17/2024 6:11 PM CDT) Glucose, POC 70 70 - 199 mg/dL Blood 09/17/2024 6:11 PM CDT 09/17/2024 6:11 PM CDT Valerie Cooper MD PhD LAB POCT ORDERABLES - DEVICE Final Result Performing Organization Address [facility] Co de Phone Number [facility] [place] [address] * POCT glucose (09/17/2024 12:03 PM CDT) Glucose, POC 73 70 - 199 mg/dL Blood 09/17/2024 12:0 3 PM CDT 09/17/2024 12:03 PM CDT Valerie Cooper MD PhD LAB POCT ORDERABLES - [place] [address] * POCT glucose (09/17/2024 9:18 AM CDT) Glucose, POC 118 70 - 199 mg/dL Blood 09/17/2024 9:18 AM CDT 09/17/2024 9:18 AM CDT Valerie Cooper MD PhD LAB POCT ORDERABLES - DEVICE Final Result Performing Organization Address City/[facility]/[place] [address] * (ABNORMAL) POCT glucose (09/17/2024 8:42 AM CDT) Glucose, POC 64(L) 70 - 199 mg/dL Blood 09/17/2024 8:42 AM CDT 09/17/2024 8:42 AM CDT Valerie Cooper MD PhD LAB POCT ORDERABLES - DEVICE Final Result [facility] [place] [address] * (ABNORMAL) POCT glucose (09/17/2024 7:57 AM CDT) Glucose, POC 68(L) 70 - 199 mg/dL Blood 09/17/2024 7:57 AM CDT 09/17/2024 7:57 AM CDT Valerie Cooper MD PhD LAB POCT ORDERABLES - DEVICE Final Result Performing Organization Address [facility] Co de Phone Number [facility] [place] [address] * POCT glucose (09/17/2024 1:34 AM CDT) Glucose, POC 102 70 - 199 mg/dL Blood 09/17/2024 1:34 AM CDT 09/17/2024 1:34 AM CDT Valerie Cooper MD PhD LAB POCT ORDERABLES - DEVICE Final Result Performing Organization Address [facility] Co de Phone Number [facility] [place] [address] * POCT glucose (09/17/2024 1:25 AM CDT) Glucose, POC 74 70 - 199 mg/dL Blood 09/17/2024 1:25 AM CDT 09/17/2024 1:25 AM CDT Valerie Cooper MD PhD LAB POCT ORDERABLES - DEVICE Final Result Performing Organization Address City/[facility] Co de Phone Number [facility] [place] [address] * POCT glucose (09/17/2024 1:19 AM CDT) Glucose, POC 81 70 - 199 mg/dL Blood 09/17/2024 1:19 AM CDT 09/17/2024 1:19 AM CDT us Valerie Cooper MD PhD LAB POCT ORDERABLES - DEVICE Final Result ARAMIS [facility] [place] [address] * POCT glucose (09/16/2024 9:23 PM CDT) Glucose, POC 80 70 - 199 mg/dL Blood 09/16/2024 9:23 PM CDT 09/16/2024 9:23 PM CDT Valerie Cooper MD PhD LAB POCT ORDERABLES - DEVICE Final Result Performing Organization Address [facility] Co de Phone Number ARAMIS [facility] [place] [address] * (ABNORMAL) eGFR (09/16/2024 9:17 PM CDT) eGFR 14(L) >=60 mL/min/1. 73 [...] MD LAB BLOOD ORDERABLES F inal Result [facility] [place] [address] * (ABNORMAL) Differential, auto (09/16/2024 9:17 PM CDT) Neutrophil abs 6.12 1.50 - 6.50 K/cumm Imm gran abs 0.07 0.00 - 0.10 K/cumm [facility] Lymphocyte abs 2.70 0.80 - 3.30 K/cumm [facility] Monocyte abs 0.88(H) 0.20 - 0.80 K/cumm [facility] Eosinophil abs 0.13 0.00 - 0.50 K/cumm [facility] Basophil abs 0.05 0.00 - 0.10 K[facility] Neutrophil pct 61.6 % [facility] Comment: Interpretive Data Percent cell count reference ranges are not reported, since discordance with absolute values may lead to misinterpretation of CBC data. Current Interpretive Data was last revised on 2017. Imm gran pct 0.7 % [facility] Comment: Interpretive Data Percent cell count reference ranges are not reported, since discordance with absolute values may lead to misinterpretation of CBC data. Current Interpretive Data was last revised on 2017. Lymphocyte pct 27.1 % [facility] Comment: Interpretive Data Percent cell count reference ranges are not reported, since discordance with absolute values may lead to misinterpretation of CBC data. Current Interpretive Data was last revised on 2017. Monocyte pct 8.8 % [facility] Comment: Interpretive Data Percent cell count reference ranges are not reported, since discordance with absolute values may lead to misinterpretation of CBC data. Current Interpretive Data was last revised on 2017. Eosinophil pct 1.3 % [facility] Comment: Interpretive Data Percent cell count reference ranges are not reported, since discordance with absolute values may lead to misinterpretation of CBC data. Current Interpretive Data was last revised on 2017. Basophil pct 0.5 % [facility] Comment: Interpretive Data Percent cell count reference ranges are not reported, since discordance with absolute values may lead to misinterpretation of CBC data. Current Interpretive Data was last revised on 2017. Blood 09/16/2024 9:17 PM CDT 09/16/2024 9:56 PM CDT Elizabet Dickey MD LAB BLOOD ORDERABLES F inal Result Performing Organization Address [facility]/ZIP Co de Phone Number [facility] Department [place] [address] * (ABNORMAL) CBC with auto differential (09/16/2024 9:17 PM CDT) WBC 9.95(H) 3.80 - 9.90 K/cumm Hgb 9.6(L) 11.9 - 15.5 g/dL [facility] Hct 30.7(L) 35.6 - 45.5 % [facility] Plt 285 150 - 400 K/cumm [facility] MPV 10.6 9.1 - 12.3 fL [facility] RBC 3.47(L) 3.90 - 5.20 M/cumm [facility] MCV 88.5 81.3 - 96.4 fL [facility] MCH 27.7 27.1 - 33.3 pg [facility] MCHC 31.3(L) 32.3 - 35.7 g/dL [facility] RDW CV 18.5(H) 11.1 - 14.9 % [facility] RDW SD 56.5(H) 35.7 - 48.1 fL [facility] NRBC abs 0.00 0.00 - 0.01 K/cumm [facility] Blood 09/16/2024 9:17 PM CDT 09/16/2024 9:56 PM CDT Elizabet Dickey MD LAB BLOOD ORDERABLES F inal Result Performing Organization Address [facility]/ZIP Co de Phone Number [facility] [place] [address] * Phosphorus (09/16/2024 9:17 PM CDT) [facility] Phosphorus, pl 2.6 2.3 - 4.5 mg/dL Blood 09/16/2024 9:17 PM CDT 09/16/2024 9:56 PM CDT Kirk Gaming MD LAB BLOOD ORDERABLES F inal Result [facility] [place] [address] * Bilirubin, direct (09/16/2024 9:17 PM CDT) [facility] Bilirubin, direct 0.2 0.1 - 0.3 mg/dL Blood 09/16/2024 9:17 PM CDT 09/16/2024 9:56 PM CDT Kirk Gaming MD LAB BLOOD ORDERABLES F inal Result Performing Organization Address City/[facility] [place] [address] * (ABNORMAL) Comprehensive metabolic panel (09/16/2024 9:17 PM CDT) [facility] Sodium 134(L) 135 - 145 mmol/L Potassium, pl 4.3 3.3 - 4.9 mmol/L [facility] Chloride 100 97 - 110 mmol/L [facility] CO2 27 22 - 32 mmol/L [facility] Anion gap 7 2 - 15 mmol/L [facility] BUN 21 6 - 25 mg/dL [facility] Creatinine 4.09(H) 0.60 - 1.10 mg/dL [facility] Glucose 83 70 - 199 mg/dL [facility] Comment: Interpretive Data Fasting glucose >/= 126 [...] 2022. Calcium 8.3(L) 8.5 - 10.3 mg/dL [facility] Bilirubin, total 0.5 0.1 - 1.2 mg/dL [facility] Protein, pl 8.2 6.5 - 8.5 g/dL [facility] Albumin 2.1(L) 3.5 - 5.0 g/dL [facility] Alk phos 111 40 - 130 Units/L [facility] ALT 9 7 - 45 Units/L [facility] AST 17 10 - 45 Units/L [facility] Blood 09/16/2024 9:17 PM CDT 09/16/2024 9:56 PM CDT us Kirk Gaming MD LAB BLOOD ORDERABLES F inal Result [facility] [place] [address] * POCT glucose (09/16/2024 6:39 PM CDT) [facility] Glucose, POC 96 70 - 199 mg/dL Comment:Glu2: RN/MD Notified Glucose comment 1 Glu2: RN/MD Notified [facility] Blood 09/16/2024 6:39 PM CDT 09/16/2024 6:39 PM CDT us Valerie Cooper MD PhD LAB POCT ORDERABLES - DEVICE Final Result [facility] [place] [address] * (ABNORMAL) POCT glucose (09/16/2024 6:09 PM CDT) Glucose, POC 67(L) 70 - 199 mg/dL Blood 09/16/2024 6:09 PM CDT 09/16/2024 6:09 PM CDT Valerie Cooper MD PhD LAB POCT ORDERABLES - DEVICE Final Result Performing Organization Address [facility] Co de Phone Number [facility] [place] [address] * POCT glucose (09/16/2024 12:08 PM CDT) Glucose, POC 72 70 - 199 mg/dL Blood 09/16/2024 12:0 8 PM CDT 09/16/2024 12:08 PM CDT Valerie Cooper MD PhD LAB POCT ORDERABLES - DEVICE Final Result Performing Organization Address [facility] de Phone Number [facility] [place] [address] * POCT glucose (09/16/2024 7:54 AM CDT) Glucose, POC 72 70 - 199 mg/dL Blood 09/16/2024 7:54 AM CDT 09/16/2024 7:54 AM CDT Valerie Cooper MD PhD LAB POCT ORDERABLES - DEVICE Final Result Performing Organization Address City/[facility] Co de Phone Number [facility] [place] [address] * POCT glucose (09/15/2024 9:09 PM CDT) Glucose, POC 103 70 - 199 mg/dL Blood 09/15/2024 9:09 PM CDT 09/15/2024 9:09 PM CDT Valerie Cooper MD PhD LAB POCT ORDERABLES - DEVICE Final Result Performing Organization Address [facility] [place] [address] * POCT glucose (09/15/2024 6:04 PM CDT) Glucose, POC 85 70 - 199 mg/dL Comment:Glu2: RN/MD Notified Glucose comment 1 Glu2: RN/MD Notified [facility] Blood 09/15/2024 6:04 PM CDT 09/15/2024 6:04 PM CDT Valerie Cooper MD PhD LAB POCT ORDERABLES - DEVICE Final Result Performing Organization Address [facility] de Phone Number [facility] [place] [address] * POCT glucose (09/15/2024 1:04 PM CDT) Glucose, POC 102 70 - 199 mg/dL Blood 09/15/2024 1:04 PM CDT 09/15/2024 1:04 PM CDT Valerie Cooper MD PhD LAB POCT ORDERABLES - DEVICE Final Result Performing Organization Address [facility] Co de Phone Number [facility] [place] [address] * (ABNORMAL) POCT glucose (09/15/2024 12:27 PM CDT) Glucose, POC 56(L) 70 - 199 mg/dL Blood 09/15/2024 12:2 7 PM CDT 09/15/2024 12:27 PM CDT Valerie Cooper MD PhD LAB POCT ORDERABLES - DEVICE Final Result Performing Organization Address City/[facility]/ZIP Co de Phone Number [facility] [place] [address] * POCT glucose (09/14/2024 9:26 PM CDT) Glucose, POC 117 70 - 199 mg/dL Blood 09/14/2024 9:26 PM CDT 09/14/2024 9:26 PM CDT Valerie Cooper MD PhD LAB POCT ORDERABLES - DEVICE Final Result Performing Organization Address [facility] Co de Phone Number [facility] [place] [address] * POCT glucose (09/14/2024 7:00 PM CDT) Glucose, POC 96 70 - 199 mg/dL Blood 09/14/2024 7:00 PM CDT 09/14/2024 7:00 PM CDT Valerie Cooper MD PhD LAB POCT ORDERABLES - DEVICE Final Result Performing Organization Address [facility] Co de Phone Number [facility] [place] [address] * POCT glucose (09/14/2024 6:48 PM CDT) Glucose, POC 94 70 - 199 mg/dL Blood 09/14/2024 6:48 PM CDT 09/14/2024 6:48 PM CDT Valerie Cooper MD PhD LAB POCT ORDERABLES - DEVICE Final Result Performing Organization Address City/[facility]/ZIP Co de Phone Number [facility] [place] [address] * POCT glucose (09/14/2024 2:34 PM CDT) Glucose, POC 119 70 - 199 mg/dL Blood 09/14/2024 2:34 PM CDT 09/14/2024 2:34 PM CDT Valerie Cooper MD PhD LAB POCT ORDERABLES - DEVICE Final Result Performing Organization Address [facility] Co de Phone Number [facility] [place] [address] * POCT glucose (09/14/2024 12:45 PM CDT) Glucose, POC 98 70 - 199 mg/dL Blood 09/14/2024 12:4 5 PM CDT 09/14/2024 12:45 PM CDT Valerie Cooper MD PhD LAB POCT ORDERABLES - DEVICE Final Result Performing Organization Address [facility] Co de Phone Number [facility] [place] [address] * (ABNORMAL) POCT glucose (09/14/2024 12:17 PM CDT) [facility] Signature Glucose, POC 64(L) 70 - 199 mg/dL Comment:Glu2: RN/MD Notified Glucose comment 1 Glu2: RN/MD Notified [facility] Blood 09/14/2024 12:1 7 PM CDT 09/14/2024 12:17 PM CDT Valerie Cooper MD PhD LAB POCT ORDERABLES - DEVICE Final Result Performing Organization Address [facility] Co de Phone Number [facility] [place] [address] * POCT glucose (09/14/2024 9:30 AM CDT) Glucose, POC 121 70 - 199 mg/dL Blood 09/14/2024 9:30 AM CDT 09/14/2024 9:30 AM CDT us Valerie Cooper MD PhD LAB POCT ORDERABLES - DEVICE Final Result Performing Organization Address [facility] Co de Phone Number [facility] [place] [address] * (ABNORMAL) POCT glucose (09/14/2024 8:15 AM CDT) Glucose, POC 69(L) 70 - 199 mg/dL Comment:Glu2: RN/MD Notified Glucose comment 1 Glu2: RN/MD Notified [facility] Blood 09/14/2024 8:15 AM CDT 09/14/2024 8:15 AM CDT Valerie Cooper MD PhD LAB POCT ORDERABLES - DEVICE Final Result Performing Organization Address [facility] de Phone Number [facility] [place] [address] * (ABNORMAL) eGFR (09/13/2024 9:10 PM CDT) eGFR 14(L) >=60 mL/min/1. 73 [...] 9:10 PM CDT 09/13/2024 9:51 PM CDT Kirk Gaming MD LAB BLOOD ORDERABLES F inal Result Performing Organization Address [facility] Co de Phone Number [facility] [place] [address] * (ABNORMAL) Reticulocyte Count (09/13/2024 9:10 PM CDT) [facility] Retics, absolute 66 20 - 87 K/cumm Retics 1.9 0.4 - 2.9 % [facility] Reticulocyte Hgb 29.0(L) 30.5 - 38.0 pg [facility] Blood 09/13/2024 9:10 PM CDT 09/13/2024 9:51 PM CDT us Valerie Cooper MD PhD LAB BLOOD ORDERABLES Final Result Performing Organization Address [facility] [place] [address] * (ABNORMAL) CBC without differential (09/13/2024 9:10 PM CDT) [facility] WBC 11.33(H) 3.80 - 9.90 K/cumm Hgb 9.6(L) 11.9 - 15.5 g/dL [facility] Hct 31.3(L) 35.6 - 45.5 % [facility] Plt 312 150 - 400 K/cumm [facility] MPV 11.6 9.1 - 12.3 fL [facility] RBC 3.54(L) 3.90 - 5.20 M/cumm [facility] MCV 88.4 81.3 - 96.4 fL [facility] MCH 27.1 27.1 - 33.3 pg [facility] MCHC 30.7(L) 32.3 - 35.7 g/dL [facility] RDW CV 17.5(H) 11.1 - 14.9 % [facility] RDW SD 55.4(H) 35.7 - 48.1 fL [facility] NRBC abs 0.00 0.00 - 0.01 K/cumm [facility] Blood 09/13/2024 9:10 PM CDT 09/13/2024 9:51 PM CDT us Valerie Cooper MD PhD LAB BLOOD ORDERABLES Final Result [facility] [place] [address] * (ABNORMAL) Ferritin (09/13/2024 9:10 PM CDT) [facility] Ferritin 968(H) 13 - 150 ng/mL Blood 09/13/2024 9:10 PM CDT 09/13/2024 9:51 PM CDT Valerie Cooper MD PhD LAB BLOOD ORDERABLES Final Result Performing Organization Address City/[facility]/ZIP Co de Phone Number [facility] [place] [address] * (ABNORMAL) Renal function panel (09/13/2024 9:10 PM CDT) [facility] Sodium 131(L) 135 - 145 mmol/L Potassium, pl 4.1 3.3 - 4.9 mmol/L [facility] Chloride 96(L) 97 - 110 mmol/L [facility] CO2 28 22 - 32 mmol/L [facility] Anion gap 7 2 - 15 mmol/L [facility] BUN 18 6 - 25 mg/dL [facility] Creatinine 4.20(H) 0.60 - 1.10 mg/dL [facility] Glucose 120 70 - 199 mg/dL [facility] Comment: Interpretive Data Fasting glucose >/= 126 [...] 2022. Calcium 8.2(L) 8.5 - 10.3 mg/dL [facility] Phosphorus, pl 2.6 2.3 - 4.5 mg/dL [facility] Albumin 2.1(L) 3.5 - 5.0 g/dL [facility] Blood 09/13/2024 9:10 PM CDT 09/13/2024 9:51 PM CDT Kirk Gaming MD LAB BLOOD ORDERABLES F inal Result Performing Organization Address City/[facility]/ZIP Co de Phone Number [facility] [place] [address] * POCT glucose (09/13/2024 8:58 PM CDT) Glucose, POC 125 70 - 199 mg/dL Blood 09/13/2024 8:58 PM CDT 09/13/2024 8:58 PM CDT us Valerie Cooper MD PhD LAB POCT ORDERABLES - DEVICE Final Result [facility] [place] [address] * POCT glucose (09/13/2024 5:11 PM CDT) Glucose, POC 87 70 - 199 mg/dL Blood 09/13/2024 5:11 PM CDT 09/13/2024 5:11 PM CDT Valerie Cooper MD PhD LAB POCT ORDERABLES - DEVICE Final Result Performing Organization Address City/[facility] Co de Phone Number [facility] [place] [address] * POCT glucose (09/13/2024 12:42 PM CDT) Glucose, POC 77 70 - 199 mg/dL Blood 09/13/2024 12:4 2 PM CDT 09/13/2024 12:42 PM CDT Valerie Cooper MD PhD LAB POCT ORDERABLES - DEVICE Final Result Performing Organization Address [facility] Co de Phone Number [facility] [place] [address] * POCT glucose (09/13/2024 8:30 AM CDT) Glucose, POC 74 70 - 199 mg/dL Blood 09/13/2024 8:30 AM CDT 09/13/2024 8:30 AM CDT Valerie Cooper MD PhD LAB POCT ORDERABLES - DEVICE Final Result Performing Organization Address City/[facility] Co de Phone Number [facility] [place] [address] * POCT glucose (09/12/2024 8:51 PM CDT) Glucose, POC 88 70 - 199 mg/dL Blood 09/12/2024 8:51 PM CDT 09/12/2024 8:51 PM CDT Valerie Cooper MD PhD LAB POCT ORDERABLES - DEVICE Final Result Performing Organization Address City/[facility] Co de Phone Number [facility] Department [place] [address] * POCT glucose (09/12/2024 6:54 PM CDT) Glucose, POC 140 70 - 199 mg/dL Blood 09/12/2024 6:54 PM CDT 09/12/2024 6:54 PM CDT Valerie Cooper MD PhD LAB POCT ORDERABLES - DEVICE Final Result Performing Organization Address City/[facility]/[place] [address] * POCT glucose (09/12/2024 5:13 PM CDT) Glucose, POC 74 70 - 199 mg/dL Blood 09/12/2024 5:13 PM CDT 09/12/2024 5:13 PM CDT Valerie Cooper MD PhD LAB POCT ORDERABLES - DEVICE Final Result Performing Organization Address City/[facility]/[place] [address] * POCT glucose (09/12/2024 12:37 PM CDT) Glucose, POC 73 70 - 199 mg/dL Blood 09/12/2024 12:3 7 PM CDT 09/12/2024 12:37 PM CDT Valerie Cooper MD PhD LAB POCT ORDERABLES - DEVICE Final Result Performing Organization Address City/[facility]/[place] [address] * POCT glucose (09/12/2024 9:59 AM CDT) Glucose, POC 74 70 - 199 mg/dL Blood 09/12/2024 9:59 AM CDT 09/12/2024 9:59 AM CDT us Valerie Cooper MD PhD LAB POCT ORDERABLES - DEVICE Final Result Performing Organization Address [facility] Co de Phone Number [facility] [place] [address] * (ABNORMAL) eGFR (09/11/2024 10:32 PM CDT) eGFR 14(L) >=60 mL/min/1. 73 [...] ORDERABLES F inal Result Performing Organization Address City/[facility]/ZIP Co de Phone Number [facility] [place] [address] * (ABNORMAL) Thyroid Function Mccracken (09/11/2024 10:32 PM CDT) TSH 8.58(H) 0.30 - 4.20 mcIUnit/mL Blood 09/11/2024 10:3 2 PM CDT 09/11/2024 11:21 PM CDT Valerie Cooper MD PhD LAB BLOOD ORDERABLES Final Result Performing Organization Address City/[facility]/ZIP Co de Phone Number [facility] [place] [address] * T4, free (09/11/2024 10:32 PM CDT) Pathologist [facility] Free T4 1.30 0.90 - 1.70 ng/dL Blood 09/11/2024 10:3 2 PM CDT 09/11/2024 11:21 PM CDT Narrative [facility] - 09/12/2024 4:41 PM CDT This test was reflexed from a TSH result. Valerie Cooper MD PhD LAB BLOOD ORDERABLES Edited Result - Final Performing Organization Address City/[facility]/ZIP Co de Phone Number [facility] [place] [address] * (ABNORMAL) Renal function panel (09/11/2024 10:32 PM CDT) Pathologist [facility] Sodium 134(L) 135 - 145 mmol/L Potassium, pl 4.7 3.3 - 4.9 mmol/L [facility] Chloride 96(L) 97 - 110 mmol/L [facility] CO2 29 22 - 32 mmol/L [facility] Anion gap 9 2 - 15 mmol/L [facility] BUN 19 6 - 25 mg/dL [facility] Creatinine 4.31(H) 0.60 - 1.10 mg/dL [facility] Glucose 71 70 - 199 mg/dL [facility] Comment: Interpretive Data Fasting glucose >/= 126 [...] 2022. Calcium 8.1(L) 8.5 - 10.3 mg/dL [facility] Phosphorus, pl 2.6 2.3 - 4.5 mg/dL [facility] Albumin 2.0(L) 3.5 - 5.0 g/dL [facility] Blood 09/11/2024 10:3 2 PM CDT 09/11/2024 11:21 PM CDT us Kirk Gaming MD LAB BLOOD ORDERABLES F inal Result Performing Organization Address [facility] Co de Phone Number [facility] [place] [address] * POCT glucose (09/11/2024 8:15 PM CDT) Glucose, POC 90 70 - 199 mg/dL Blood 09/11/2024 8:15 PM CDT 09/11/2024 8:15 PM CDT us Valerie Cooper MD PhD LAB POCT ORDERABLES - DEVICE Final Result Performing Organization Address City/[facility]/ZIP Co de Phone Number [facility] [place] [address] * POCT glucose (09/11/2024 5:20 PM CDT) Glucose, POC 147 70 - 199 mg/dL Blood 09/11/2024 5:20 PM CDT 09/11/2024 5:20 PM CDT Valerie Cooper MD PhD LAB POCT ORDERABLES - DEVICE Final Result Performing Organization Address [facility]/ZIP [place] [address] * POCT glucose (09/11/2024 2:00 PM CDT) Glucose, POC 81 70 - 199 mg/dL Blood 09/11/2024 2:00 PM CDT 09/11/2024 2:00 PM CDT Valerie Cooper MD PhD LAB POCT ORDERABLES - [place] [address] * POCT glucose (09/11/2024 6:05 AM CDT) Glucose, POC 98 70 - 199 mg/dL Blood 09/11/2024 6:05 AM CDT 09/11/2024 6:05 AM CDT us Valerie Cooper MD PhD LAB POCT ORDERABLES - [place] [address] * POCT glucose (09/11/2024 5:30 AM CDT) Glucose, POC 70 70 - 199 mg/dL Blood 09/11/2024 5:30 AM CDT 09/11/2024 5:30 AM CDT Valerie Cooper MD PhD LAB POCT ORDERABLES - [place] [address] * Blood culture Blood (09/10/2024 11:04 PM CDT) Report Final Report: No growth Blood 09/10/2024 11:0 4 PM CDT 09/11/2024 12:43 AM CDT Narrative [facility] - 09/15/2024 7:00 AM CDT Collection->Peripheral 1. [...] performance characteristics have been verified by the [facility] Microbiology Laboratory. For questions about this culture, contact the Microbiology Laboratory at [phone]. Interpretive data was last revised on 24. us Kirk Gaming MD LAB MICROBIOLOGY - GEN ERAL ORDERABLES Final Result [facility] [place] [address] * Respiratory pathogen panel Nasopharyngeal (09/10/2024 8:50 PM CDT) Pathologist [facility] Influenza A RNA Not Detected Not Detected Influenza B RNA Not Detected Not Detected [facility] RSV RNA Not Detected Not Detected [facility] COVID-19 RNA Not Detected Not Detected [facility] Coronavirus 229E RNA Not Detected Not Detected [facility] Coronavirus HKU1 RNA Not Detected Not Detected [facility] Coronavirus NL63 RNA Not Detected Not Detected [facility] Coronavirus OC43 RNA Not Detected Not Detected [facility] Adenovirus DNA Not Detected Not Detected [facility] Metapneumovirus RNA Not Detected Not Detected [facility] Rhinovirus/Enterov irus RNA Not Detected Not Detected [facility] Parainfluenza 1 RNA Not Detected Not Detected [facility] Parainfluenza 2 RNA Not Detected Not Detected [facility] Parainfluenza 3 RNA Not Detected Not Detected [facility] Parainfluenza 4 RNA Not Detected Not Detected [facility] B. pertussis DNA Not Detected Not Detected [facility] B. parapertussis DNA Not Detected Not Detected [facility] C. pneumoniae DNA Not Detected Not Detected [facility] M. pneumoniae DNA Not Detected Not Detected [facility] Nasopharyngeal 09/10/2024 8: 50 PM CDT 09/10/2024 9:17 PM CDT [facility]ative [facility] - 09/10/2024 10:22 PM CDT Is the Patient experiencing symptoms consistent with COVID?->Yes Surveillance testing for transplant patient?->No Interpretive Data The [employer] FilmArray Respiratory Panel (RP2.1) assay is a [...] assay has FDA clearance for testing of [employer] swabs. The performance of additional specimen types has been assessed by the performing laboratory. The performance characteristics of this assay have been determined by [facility] Molecular Infectious Disease Laboratory. Current interpretive data was last revised on 22. Kirk Gaming MD LAB MICROBIOLOGY - GEN ERAL ORDERABLES Final Result [facility] Department [place] [address] * POCT glucose (09/10/2024 8:35 PM CDT) Glucose, POC 83 70 - 199 mg/dL Blood 09/10/2024 8:35 PM CDT 09/10/2024 8:35 PM CDT Kirk Gaming MD LAB POCT ORDERABLES - DEVICE Final Result Performing Organization Address City/State/[facility] Co de Phone Number [facility] [place] [address] * XR Chest 1 View (09/10/2024 11:32 [...] radiograph Procedure Note Delmis Warren MD - 09/10/2024 EXAMINATION: 1 view chest [...] * POCT glucose (09/10/2024 8:54 AM CDT) [facility] Signature Glucose, POC 84 70 - 199 mg/dL Blood 09/10/2024 8:54 AM CDT 09/10/2024 8:54 AM CDT us Kirk Gaming MD LAB POCT ORDERABLES - DEVICE Final Result [facility] [place] [address] * POCT glucose (09/10/2024 4:52 AM CDT) Glucose, POC 103 70 - 199 mg/dL Blood 09/10/2024 4:52 AM CDT 09/10/2024 4:52 AM CDT Kirk Gaming MD LAB POCT ORDERABLES - DEVICE Final Result Performing Organization Address City/[facility] Co de Phone Number [facility] Department [place] [address] * (ABNORMAL) POCT glucose (09/10/2024 3:04 AM CDT) Glucose, POC 65(L) 70 - 199 mg/dL Blood 09/10/2024 3:04 AM CDT 09/10/2024 3:04 AM CDT Kirk Gaming MD LAB POCT ORDERABLES - DEVICE Final Result Performing Organization Address City/[facility] de Phone Number [facility] Department [place] [address] * (ABNORMAL) eGFR (09/09/2024 10:54 PM CDT) [...] MD LAB BLOOD ORDERABLES F inal Result [facility] [place] [address] * (ABNORMAL) Differential, auto (09/09/2024 10:54 PM CDT) Neutrophil abs 10.52(H) 1.50 - 6.50 K/cumm Imm gran abs 0.11(H) 0.00 - 0.10 K/cumm [facility] Lymphocyte abs 2.89 0.80 - 3.30 K/cumm [facility] Monocyte abs 0.98(H) 0.20 - 0.80 K/cumm [facility] Eosinophil abs 0.13 0.00 - 0.50 K/cumm [facility] Basophil abs 0.05 0.00 - 0.10 K/cumm [facility] Neutrophil pct 71.7 % [facility] Comment: Interpretive Data Percent cell count reference ranges are not reported, since discordance with absolute values may lead to misinterpretation of CBC data. Current Interpretive Data was last revised on 2017. Imm gran pct 0.7 % [facility] Comment: Interpretive Data Percent cell count reference ranges are not reported, since discordance with absolute values may lead to misinterpretation of CBC data. Current Interpretive Data was last revised on 2017. Lymphocyte pct 19.7 % [facility] Comment: Interpretive Data Percent cell count reference ranges are not reported, since discordance with absolute values may lead to misinterpretation of CBC data. Current Interpretive Data was last revised on 2017. Monocyte pct 6.7 % [facility] Comment: Interpretive Data Percent cell count reference ranges are not reported, since discordance with absolute values may lead to misinterpretation of CBC data. Current Interpretive Data was last revised on 2017. Eosinophil pct 0.9 % [facility] Comment: Interpretive Data Percent cell count reference ranges are not reported, since discordance with absolute values may lead to misinterpretation of CBC data. Current Interpretive Data was last revised on 2017. Basophil pct 0.3 % [facility] Comment: Interpretive Data Percent cell count reference ranges are not reported, since discordance with absolute values may lead to misinterpretation of CBC data. Current Interpretive Data was last revised on 2017. Blood 09/09/2024 10:5 4 PM CDT 09/09/2024 11:24 PM CDT Elizabet Dickey MD LAB BLOOD ORDERABLES F inal Result [facility] [place] [address] * (ABNORMAL) CBC with auto differential (09/09/2024 10:54 PM CDT) WBC 14.68(H) 3.80 - 9.90 K/cumm Hgb 9.6(L) 11.9 - 15.5 g/dL [facility] Hct 30.8(L) 35.6 - 45.5 % [facility] Plt 205 150 - 400 K/cumm [facility] MPV 10.1 9.1 - 12.3 fL [facility] RBC 3.52(L) 3.90 - 5.20 M/cumm [facility] MCV 87.5 81.3 - 96.4 fL [facility] MCH 27.3 27.1 - 33.3 pg [facility] MCHC 31.2(L) 32.3 - 35.7 g/dL [facility] RDW CV 18.4(H) 11.1 - 14.9 % [facility] RDW SD 58.0(H) 35.7 - 48.1 fL [facility] NRBC abs 0.00 0.00 - 0.01 K/cumm [facility] Blood 09/09/2024 10:5 4 PM CDT 09/09/2024 11:24 PM CDT Elizabet Dickey MD LAB BLOOD ORDERABLES F inal Result Performing Organization Address [facility] Co de Phone Number [facility] Department [place] [address] * Phosphorus (09/09/2024 10:54 PM CDT) [facility] Phosphorus, pl 2.7 2.3 - 4.5 mg/dL Blood 09/09/2024 10:5 4 PM CDT 09/09/2024 11:24 PM CDT Kirk Gaming MD LAB BLOOD ORDERABLES F inal Result Performing Organization Address [facility] de Phone Number [facility] Department [place] [address] * Bilirubin, direct (09/09/2024 10:54 PM CDT) [facility] Bilirubin, direct 0.3 0.1 - 0.3 mg/dL Blood 09/09/2024 10:5 4 PM CDT 09/09/2024 11:24 PM CDT Result [facility] Kirk Gaming MD LAB BLOOD ORDERABLES F inal Result Performing Organization Address [facility] de Phone Number [facility] Department [place] [address] * (ABNORMAL) Comprehensive metabolic panel (09/09/2024 10:54 PM CDT) [facility] Sodium 133(L) 135 - 145 mmol/L Potassium, pl 4.6 3.3 - 4.9 mmol/L [facility] Chloride 96(L) 97 - 110 mmol/L [facility] CO2 28 22 - 32 mmol/L [facility] Anion gap 9 2 - 15 mmol/L [facility] BUN 22 6 - 25 mg/dL [facility] Creatinine 5.07(H) 0.60 - 1.10 mg/dL [facility] Glucose 76 70 - 199 mg/dL [facility] Comment: Interpretive Data Fasting glucose >/= 126 [...] 2022. Calcium 8.1(L) 8.5 - 10.3 mg/dL [facility] Bilirubin, total 0.6 0.1 - 1.2 mg/dL [facility] Protein, pl 7.7 6.5 - 8.5 g/dL [facility] Albumin 1.9(L) 3.5 - 5.0 g/dL [facility] Alk phos 114 40 - 130 Units/L [facility] ALT 22 7 - 45 Units/L [facility] AST 23 10 - 45 Units/L [facility] Blood 09/09/2024 10:5 4 PM CDT 09/09/2024 11:24 PM CDT Kirk Gaming MD LAB BLOOD ORDERABLES F inal Result [facility] Department [place] [address] * POCT glucose (09/09/2024 10:38 PM CDT) [facility] Signature Glucose, POC 76 70 - 199 mg/dL Blood 09/09/2024 10:3 8 PM CDT 09/09/2024 10:38 PM CDT us Kirk Gaming MD LAB POCT ORDERABLES - DEVICE Final Result Performing Organization Address [facility] Co de Phone Number [facility] [place] [place] [address] * POCT glucose (09/09/2024 7:51 PM CDT) Glucose, POC 76 70 - 199 mg/dL Blood 09/09/2024 7:51 PM CDT 09/09/2024 7:51 PM CDT Kirk Gaming MD LAB POCT ORDERABLES - DEVICE Final Result Performing Organization Address [facility] de Phone Number [facility] [place] [address] * POCT glucose (09/09/2024 2:55 PM CDT) Glucose, POC 80 70 - 199 mg/dL Blood 09/09/2024 2:55 PM CDT 09/09/2024 2:55 PM CDT Kirk Gaming MD LAB POCT ORDERABLES - DEVICE Final Result Performing Organization Address [facility] Co de Phone Number [facility] [place] [address] * (ABNORMAL) POCT glucose (09/09/2024 12:03 PM CDT) Glucose, POC 69(L) 70 - 199 mg/dL Blood 09/09/2024 12:0 3 PM CDT 09/09/2024 12:03 PM CDT Kirk Gaming MD LAB POCT ORDERABLES - DEVICE Final Result Performing Organization Address City/[facility] Co de Phone Number [facility] [place] [address] * POCT glucose (09/09/2024 8:34 AM CDT) Glucose, POC 84 70 - 199 mg/dL Blood 09/09/2024 8:34 AM CDT 09/09/2024 8:34 AM CDT Kirk Gaming MD LAB POCT ORDERABLES - DEVICE Final Result Performing Organization Address City/[facility] Co de Phone Number [facility] [place] [address] * (ABNORMAL) POCT glucose (09/09/2024 5:46 AM CDT) Glucose, POC 68(L) 70 - 199 mg/dL Blood 09/09/2024 5:46 AM CDT 09/09/2024 5:46 AM CDT Kirk Gaming MD LAB POCT ORDERABLES - DEVICE Final Result Performing Organization Address [facility] Co de Phone Number [facility] [place] [place] [address] * POCT glucose (09/09/2024 3:26 AM CDT) Glucose, POC 78 70 - 199 mg/dL Blood 09/09/2024 3:26 AM CDT 09/09/2024 3:26 AM CDT Kirk Gaming MD LAB POCT ORDERABLES - DEVICE Final Result Performing Organization Address City/[facility] Co de Phone Number [facility] [place] [place] [address] * POCT glucose (09/09/2024 1:55 AM CDT) Glucose, POC 72 70 - 199 mg/dL Blood 09/09/2024 1:55 AM CDT 09/09/2024 1:55 AM CDT Kirk Gaming MD LAB POCT ORDERABLES - DEVICE Final Result Performing Organization Address [facility] Co de Phone Number [facility] [place] [address] * POCT glucose (09/09/2024 12:11 AM CDT) Glucose, POC 89 70 - 199 mg/dL Blood 09/09/2024 12:1 1 AM CDT 09/09/2024 12:11 AM CDT Kirk Gaming MD LAB POCT ORDERABLES - DEVICE Final Result Performing Organization Address [facility] de Phone Number [facility] [place] [address] * (ABNORMAL) POCT glucose (09/08/2024 10:15 PM CDT) Glucose, POC 67(L) 70 - 199 mg/dL Blood 09/08/2024 10:1 5 PM CDT 09/08/2024 10:15 PM CDT Kirk Gaming MD LAB POCT ORDERABLES - DEVICE Final Result Performing Organization Address [facility] de Phone Number [facility] [place] [address] * POCT glucose (09/08/2024 8:51 PM CDT) Glucose, POC 83 70 - 199 mg/dL Blood 09/08/2024 8:51 PM CDT 09/08/2024 8:51 PM CDT Kirk Gaming MD LAB POCT ORDERABLES - DEVICE Final Result Performing Organization Address [facility] Co de Phone [place] [address] * (ABNORMAL) POCT glucose (09/08/2024 2:10 PM CDT) Glucose, POC 221(H) 70 - 199 mg/dL Blood 09/08/2024 2:10 PM CDT 09/08/2024 2:10 PM CDT Kirk Gaming MD LAB POCT ORDERABLES - DEVICE Final Result Performing Organization Address City/[facility]/[place] [address] * (ABNORMAL) POCT glucose (09/08/2024 1:37 PM CDT) Glucose, POC 65(L) 70 - 199 mg/dL Blood 09/08/2024 1:37 PM CDT 09/08/2024 1:37 PM CDT Kirk Gaming MD LAB POCT ORDERABLES - DEVICE Final Result Performing Organization Address City/[facility]/ZIP Co de Phone Number [facility] [place] [address] * (ABNORMAL) POCT glucose (09/08/2024 10:49 AM CDT) Glucose, POC 65(L) 70 - 199 mg/dL Blood 09/08/2024 10:4 9 AM CDT 09/08/2024 10:49 AM CDT Kirk Gaming MD LAB POCT ORDERABLES - DEVICE Final Result Performing Organization Address City/[facility]/ZIP Co de Phone Number [facility] [place] [address] * (ABNORMAL) POCT glucose (09/08/2024 7:48 AM CDT) Glucose, POC 64(L) 70 - 199 mg/dL Comment:Glu2: RN/MD Notified Glucose comment 1 Glu2: RN/MD Notified [facility] Blood 09/08/2024 7:48 AM CDT 09/08/2024 7:48 AM CDT us Kirk Gaming MD LAB POCT ORDERABLES - DEVICE Final Result Performing Organization Address City/[facility] Co de Phone Number [facility] [place] [address] * POCT glucose (09/08/2024 5:03 AM CDT) Glucose, POC 76 70 - 199 mg/dL Blood 09/08/2024 5:03 AM CDT 09/08/2024 5:03 AM CDT us Kirk Gaming MD LAB POCT ORDERABLES - DEVICE Final Result Performing Organization Address [facility] de Phone Number [facility] [place] [place] [address] * POCT glucose (09/07/2024 9:07 PM CDT) Glucose, POC 96 70 - 199 mg/dL Blood 09/07/2024 9:07 PM CDT 09/07/2024 9:07 PM CDT us Kirk Gaming MD LAB POCT ORDERABLES - DEVICE Final Result Performing Organization Address City/[facility] de Phone Number [facility] [place] [address] * POCT glucose (09/07/2024 8:12 PM CDT) Glucose, POC 87 70 - 199 mg/dL Blood 09/07/2024 8:12 PM CDT 09/07/2024 8:12 PM CDT us Kirk Gaming MD LAB POCT ORDERABLES - DEVICE Final Result Performing Organization Address [facility] [place] [address] * (ABNORMAL) POCT glucose (09/07/2024 7:39 PM CDT) Glucose, POC 65(L) 70 - 199 mg/dL Comment:Glu2: RN/MD Notified Glucose comment 1 Glu2: RN/MD Notified [facility] Blood 09/07/2024 7:39 PM CDT 09/07/2024 7:39 PM CDT us Kirk Gaming MD LAB POCT ORDERABLES - DEVICE Final Result Performing Organization Address [facility] de Phone Number [facility] [place] [address] * POCT glucose (09/07/2024 8:22 AM CDT) Glucose, POC 79 70 - 199 mg/dL Blood 09/07/2024 8:22 AM CDT 09/07/2024 8:22 AM CDT Kirk Gaming MD LAB POCT ORDERABLES - DEVICE Final Result Performing Organization Address [facility] [place] [address] * (ABNORMAL) POCT glucose (09/07/2024 7:51 AM CDT) Glucose, POC 68(L) 70 - 199 mg/dL Comment:Glu2: RN/MD Notified Glucose comment 1 Glu2: RN/MD Notified [facility] Blood 09/07/2024 7:51 AM CDT 09/07/2024 7:51 AM CDT Kirk Gaming MD LAB POCT ORDERABLES - DEVICE Final Result Performing Organization Address [facility] Co de Phone Number [facility] [place] [address] * (ABNORMAL) eGFR (09/06/2024 9:48 PM CDT) [...] ORDERABLES F inal Result Performing Organization Address City/[facility]/ZIP Co de Phone Number [facility] [place] [place] [address] * (ABNORMAL) Basic metabolic panel (09/06/2024 9:48 PM CDT) Sodium 133(L) 135 - 145 mmol/L Potassium, pl 3.7 3.3 - 4.9 mmol/L [facility] Chloride 97 97 - 110 mmol/L [facility] CO2 29 22 - 32 mmol/L [facility] Anion gap 7 2 - 15 mmol/L [facility] BUN 14 6 - 25 mg/dL [facility] Creatinine 4.24(H) 0.60 - 1.10 mg/dL [facility] Glucose 80 70 - 199 mg/dL [facility] Comment: Interpretive Data Fasting glucose >/= 126 [...] 2022. Calcium 7.9(L) 8.5 - 10.3 mg/dL [facility] Blood 09/06/2024 9:48 PM CDT 09/06/2024 10:23 PM CDT us Elizabet Dickey MD LAB BLOOD ORDERABLES F inal Result [facility] [place] [address] * POCT glucose (09/06/2024 9:30 PM CDT) [facility] Glucose, POC 84 70 - 199 mg/dL Blood 09/06/2024 9:30 PM CDT 09/06/2024 9:30 PM CDT us Kirk Gaming MD LAB POCT ORDERABLES - DEVICE Final Result Performing Organization Address City/[facility]/ZIP Co de Phone Number [facility] [place] [address] * POCT glucose (09/06/2024 5:32 PM CDT) Glucose, POC 94 70 - 199 mg/dL Blood 09/06/2024 5:32 PM CDT 09/06/2024 5:32 PM CDT Kirk Gaming MD LAB POCT ORDERABLES - DEVICE Final Result Performing Organization Address [facility] Co de Phone Number [facility] [place] [address] * POCT glucose (09/06/2024 11:49 AM CDT) Glucose, POC 106 70 - 199 mg/dL Blood 09/06/2024 11:4 9 AM CDT 09/06/2024 11:49 AM CDT Kirk Gaming MD LAB POCT ORDERABLES - DEVICE Final Result Performing Organization Address City/[facility] de Phone Number [facility] [place] [address] * POCT glucose (09/06/2024 11:42 AM CDT) Glucose, POC 99 70 - 199 mg/dL Blood 09/06/2024 11:4 2 AM CDT 09/06/2024 11:42 AM CDT Kirk Gaming MD LAB POCT ORDERABLES - DEVICE Final Result Performing Organization Address City/[facility] Co de Phone Number [facility] [place] [address] * POCT glucose (09/06/2024 11:01 AM CDT) Glucose, POC 90 70 - 199 mg/dL Blood 09/06/2024 11:0 1 AM CDT 09/06/2024 11:01 AM CDT us Kirk Gaming MD LAB POCT ORDERABLES - DEVICE Final Result Performing Organization Address [facility] de Phone Number [facility] [place] [address] * (ABNORMAL) POCT glucose (09/06/2024 10:39 AM CDT) Glucose, POC 64(L) 70 - 199 mg/dL Blood 09/06/2024 10:3 9 AM CDT 09/06/2024 10:39 AM CDT Kirk Gaming MD LAB POCT ORDERABLES - DEVICE Final Result Performing Organization Address [facility] de Phone Number [facility] [place] [address] * (ABNORMAL) POCT glucose (09/06/2024 9:44 AM CDT) Glucose, POC 68(L) 70 - 199 mg/dL Comment:Glu2: RN/MD Notified Glucose comment 1 Glu2: RN/MD Notified [facility] Blood 09/06/2024 9:44 AM CDT 09/06/2024 9:44 AM CDT us Kirk Gaming MD LAB POCT ORDERABLES - DEVICE Final Result Performing Organization Address [facility] Co de Phone Number [facility] [place] [address] * (ABNORMAL) eGFR (2024 9:30 PM CDT) [...] MD LAB BLOOD ORDERABLES F inal Result [facility] [place] [address] * (ABNORMAL) Basic metabolic panel (2024 9:30 PM CDT) Sodium 134(L) 135 - 145 mmol/L Potassium, pl 4.0 3.3 - 4.9 mmol/L [facility] Chloride 97 97 - 110 mmol/L [facility] CO2 30 22 - 32 mmol/L [facility] Anion gap 7 2 - 15 mmol/L [facility] BUN 8 6 - 25 mg/dL [facility] Creatinine 3.03(H) 0.60 - 1.10 mg/dL [facility] Glucose 74 70 - 199 mg/dL [facility] Comment: Interpretive Data Fasting glucose >/= 126 [...] 2022. Calcium 8.0(L) 8.5 - 10.3 mg/dL [facility] Blood 2024 9:30 PM CDT 2024 11:12 PM CDT Elizabet Dickey MD LAB BLOOD ORDERABLES F inal Result Performing Organization Address City/[facility]/ZIP Co de Phone Number [facility] [place] [address] * POCT glucose (2024 9:16 PM CDT) Glucose, POC 101 70 - 199 mg/dL Blood 2024 9:16 PM CDT 2024 9:16 PM CDT us Kirk Gaming MD LAB POCT ORDERABLES - DEVICE Final Result Performing Organization Address [facility] Co de Phone Number [facility] [place] [address] * Hepatitis B Surface Antigen Blood (2024 3:29 PM CDT) HepBsAg Nonreactive Nonreactive Blood 2024 3:29 PM CDT 2024 3:42 PM CDT us Maryellen Alejandro MD LAB MICROBIOLOGY - GENER AL ORDERABLES Final Result Performing Organization Address City/[facility] Co de Phone Number [facility] [place] [address] * POCT glucose (2024 11:11 AM CDT) Glucose, POC 76 70 - 199 mg/dL Blood 2024 11:1 1 AM CDT 2024 11:11 AM CDT Kirk Gaming MD LAB POCT ORDERABLES - DEVICE Final Result Performing Organization Address [facility]/ZIP Co de Phone Number ARAMIS [facility] [place] [address] * (ABNORMAL) eGFR (09/04/2024 9:04 PM CDT) eGFR 12(L) >=60 mL/min/1. 73 [...] ORDERABLES F inal Result Performing Organization Address City/[facility]/ZIP Co de Phone Number ARAMIS [facility] [place] [address] * (ABNORMAL) Basic metabolic panel (09/04/2024 9:04 PM CDT) Pathologist [facility] Sodium 137 135 - 145 mmol/L Potassium, pl 4.2 3.3 - 4.9 mmol/L [facility] Chloride 97 97 - 110 mmol/L [facility] CO2 33(H) 22 - 32 mmol/L [facility] Anion gap 7 2 - 15 mmol/L [facility] BUN 16 6 - 25 mg/dL [facility] Creatinine 4.69(H) 0.60 - 1.10 mg/dL [facility] Glucose 100 70 - 199 mg/dL [facility] Comment: Interpretive Data Fasting glucose >/= 126 [...] 2022. Calcium 8.0(L) 8.5 - 10.3 mg/dL [facility] Blood 09/04/2024 9:04 PM CDT 09/04/2024 9:56 PM CDT us Elizabet Dickey MD LAB BLOOD ORDERABLES F inal Result [facility] [place] [address] * POCT glucose (09/04/2024 7:58 PM CDT) [facility] Glucose, POC 106 70 - 199 mg/dL Blood 09/04/2024 7:58 PM CDT 09/04/2024 7:58 PM CDT us Kirk Gaming MD LAB POCT ORDERABLES - DEVICE Final Result Performing Organization Address City/[facility]/ZIP Co de Phone Number [facility] [place] [address] * POCT glucose (09/04/2024 7:57 AM CDT) Glucose, POC 86 70 - 199 mg/dL Blood 09/04/2024 7:57 AM CDT 09/04/2024 7:57 AM CDT us Kirk Gaming MD LAB POCT ORDERABLES - DEVICE Final Result Performing Organization Address [facility]/ZIP Co de Phone Number [facility] [place] [address] * (ABNORMAL) Urinalysis reflex to microscopic and culture Urine (09/04/2024 6:05 AM CDT) Color, ur Yellow Yellow Clarity, ur Turbid(A) Clear [facility] Specific gravity, ur 1.011 1.003 - 1.030 [facility] pH, urine 8.5 [facility] Comment: Interpretive Data U rine pH is affected by diet, medications, systemic acid-base disturbances, and renal tubular function. pH may affect urinary stone formation. For example, urine pH below 6.0 may help reduce the tendency for calcium phosphate stones and pH greater than 6.0 may reduce the tendency for uric acid stone formation. Source: [facility] Current Interpretive Data was last revised on 2017 Protein, ur ql 3+(A) Negative [facility] Glucose, ur ql Negative Negative [facility] Ketones, ur Negative Negative [facility] Bilirubin, ur Negative Negative [facility] Blood, ur 3+(A) Negative [facility] Urobilinogen, ur <2.0 <2.0 mg/dL [facility] Nitrite, ur Negative Negative [facility] Leukocyte esterase, ur 3+(A) Negative [facility] UA reflex comment Reflex to microscopic UA will be performed. [facility] Urine 09/04/2024 6:05 AM CDT 09/04/2024 6:44 AM CDT us Elizabet Dickey MD LAB MICROBIOLOGY - GEN ERAL ORDERABLES Final Result Performing Organization Address [facility] Co de Phone Number [facility] Department [place] [address] * (ABNORMAL) Urinalysis, microscopic only (09/04/2024 6:05 AM CDT) WBC, ur >50(A) 0 - 5 /HPF RBC, ur >50(A) 0 - 2 /HPF [facility] Epithelial cells, squamous, ur 11-20(A) 0 - 5 /HPF [facility] Comment:Suggestive of contam ination. Consider recollection by clean catch. Bacteria, ur 4+(A) [facility] Culture Reflex Comment Reflex to urine culture will be performed. [facility] Urine 09/04/2024 6:05 AM CDT 09/04/2024 6:44 AM CDT lEizabet Dickey MD LAB URINE ORDERABLES F inal Result Performing Organization Address City/State/[facility] Co de Phone Number [facility] Department [place] [address] * (ABNORMAL) Urine culture Urine (09/04/2024 6:05 AM CDT) Report Final Report: Greater than or equal to 100,000 colonies/mL of Escherichia coli Plus growth of clinically insignificant bacterial melissa. (.) Organism ESCHERICHIA COLI [facility] Organism PLUS GROWTH OF CLINICALLY INSIGNIFICANT MELISSA. [facility] Urine 09/04/2024 6:05 AM CDT 09/04/2024 7:32 AM CDT Narrative [facility] - 09/06/2024 10:45 AM CDT Urine culture reflexed based upon urinalysis results. Testing performed by [facility] ([phone]) Organism Antibiotic Method Susceptibility Escherichia coli Ampicillin [...] MICROBIOLOGY - GEN ERAL ORDERABLES Final Result [facility] [place] [address] * POCT glucose (09/03/2024 11:17 PM CDT) Glucose, POC 100 70 - 199 mg/dL Blood 09/03/2024 11:1 7 PM CDT 09/03/2024 11:17 PM CDT us Kirk Gaming MD LAB POCT ORDERABLES - DEVICE Final Result Performing Organization Address [facility] Co de Phone Number [facility] Department [place] [address] * (ABNORMAL) eGFR (09/03/2024 10:19 PM CDT) [facility] eGFR 16(L) >=60 mL/min/1. 73 m2 Comment: [...] ORDERABLES F inal Result Performing Organization Address City/[facility]/ZIP Co de Phone Number [facility] [place] [address] * (ABNORMAL) Basic metabolic panel (09/03/2024 10:19 PM CDT) [facility] Sodium 135 135 - 145 mmol/L Potassium, pl 3.9 3.3 - 4.9 mmol/L [facility] Chloride 95(L) 97 - 110 mmol/L [facility] CO2 32 22 - 32 mmol/L [facility] Anion gap 8 2 - 15 mmol/L [facility] BUN 11 6 - 25 mg/dL [facility] Creatinine 3.79(H) 0.60 - 1.10 mg/dL [facility] Glucose 87 70 - 199 mg/dL [facility] Comment: Interpretive Data Fasting glucose >/= 126 [...] 2022. Calcium 7.6(L) 8.5 - 10.3 mg/dL [facility] Blood 09/03/2024 10:1 9 PM CDT 09/03/2024 10:54 PM CDT Elizabet Dickey MD LAB BLOOD ORDERABLES F inal Result Performing Organization Address City/[facility]/ZIP Co de Phone Number [facility] Department [place] [address] * POCT glucose (09/03/2024 3:07 PM CDT) Glucose, POC 105 70 - 199 mg/dL Blood 09/03/2024 3:07 PM CDT 09/03/2024 3:07 PM CDT Elizabet Dickey MD LAB POCT ORDERABLES - DEVICE Final Result Performing Organization Address City/[facility] Co de Phone Number [facility] [place] [address] * POCT glucose (09/03/2024 11:28 AM CDT) Glucose, POC 77 70 - 199 mg/dL Blood 09/03/2024 11:2 8 AM CDT 09/03/2024 11:28 AM CDT Elizabet Dickey MD LAB POCT ORDERABLES - DEVICE Final Result Performing Organization Address [facility] Co de Phone Number [facility] [place] [address] * POCT glucose (09/03/2024 8:02 AM CDT) Glucose, POC 122 70 - 199 mg/dL Blood 09/03/2024 8:02 AM CDT 09/03/2024 8:02 AM CDT Elizabet Dickey MD LAB POCT ORDERABLES - DEVICE Final Result Performing Organization Address [facility] [place] [address] * POCT glucose (09/03/2024 1:24 AM CDT) Glucose, POC 154 70 - 199 mg/dL Blood 09/03/2024 1:24 AM CDT 09/03/2024 1:24 AM CDT Elizabet Dickey MD LAB POCT ORDERABLES - DEVICE Final Result Performing Organization Address [facility] Co de Phone Number [facility] Department [place] [address] * (ABNORMAL) POCT glucose (09/03/2024 12:45 AM CDT) Glucose, POC 64(L) 70 - 199 mg/dL Comment:Glu2: RN/MD Notified Glucose comment 1 Glu2: RN/MD Notified [facility] Blood 09/03/2024 12:4 5 AM CDT 09/03/2024 12:45 AM CDT Elizabet Dickey MD LAB POCT ORDERABLES - DEVICE Final Result Performing Organization Address [facility] de Phone Number [facility] Department [place] [address] * (ABNORMAL) eGFR (09/02/2024 9:27 PM CDT) eGFR 10(L) >=60 mL/min/1. 73 [...] MD PhD LAB BLOOD ORDERABLES Final Result [facility] [place] [address] * (ABNORMAL) Differential, auto (09/02/2024 9:27 PM CDT) Neutrophil abs 6.55(H) 1.50 - 6.50 K/cumm Imm gran abs 0.08 0.00 - 0.10 K/cumm [facility] Lymphocyte abs 2.30 0.80 - 3.30 K/[facility]umm [facility] Monocyte abs 0.88(H) 0.20 - 0.80 K/cumm [facility] Eosinophil abs 0.14 0.00 - 0.50 K/cumm [facility] Basophil abs 0.05 0.00 - 0.10 K/cumm [facility] Neutrophil pct 65.5 % [facility] Comment: Interpretive Data Percent cell count reference ranges are not reported, since discordance with absolute values may lead to misinterpretation of CBC data. Current Interpretive Data was last revised on 2017. Imm gran pct 0.8 % [facility] Comment: Interpretive Data Percent cell count reference ranges are not reported, since discordance with absolute values may lead to misinterpretation of CBC data. Current Interpretive Data was last revised on 2017. Lymphocyte pct 23.0 % [facility] Comment: Interpretive Data Percent cell count reference ranges are not reported, since discordance with absolute values may lead to misinterpretation of CBC data. Current Interpretive Data was last revised on 2017. Monocyte pct 8.8 % [facility] Comment: Interpretive Data Percent cell count reference ranges are not reported, since discordance with absolute values may lead to misinterpretation of CBC data. Current Interpretive Data was last revised on 2017. Eosinophil pct 1.4 % [facility] Comment: Interpretive Data Percent cell count reference ranges are not reported, since discordance with absolute values may lead to misinterpretation of CBC data. Current Interpretive Data was last revised on 2017. Basophil pct 0.5 % [facility] Comment: Interpretive Data Percent cell count reference ranges are not reported, since discordance with absolute values may lead to misinterpretation of CBC data. Current Interpretive Data was last revised on 2017. Blood 09/02/2024 9:27 PM CDT 09/02/2024 9:30 PM CDT Elizabet Dickey MD LAB BLOOD ORDERABLES F inal Result [facility] Department [place] [address] * (ABNORMAL) CBC with auto differential (09/02/2024 9:27 PM CDT) WBC 10.00(H) 3.80 - 9.90 K/cumm Hgb 7.7(L) 11.9 - 15.5 g/dL [facility] Hct 24.8(L) 35.6 - 45.5 % [facility] Plt 264 150 - 400 K/cumm [facility] MPV 10.8 9.1 - 12.3 fL [facility] RBC 2.76(L) 3.90 - 5.20 M/cumm [facility] MCV 89.9 81.3 - 96.4 fL [facility] MCH 27.9 27.1 - 33.3 pg [facility] MCHC 31.0(L) 32.3 - 35.7 g/dL [facility] RDW CV 18.5(H) 11.1 - 14.9 % [facility] RDW SD 59.6(H) 35.7 - 48.1 fL [facility] NRBC abs 0.02(H) 0.00 - 0.01 K/cumm [facility] Blood 09/02/2024 9:27 PM CDT 09/02/2024 9:30 PM CDT Elizabet Dickey MD LAB BLOOD ORDERABLES F inal Result [facility] [place] [address] * (ABNORMAL) Comprehensive metabolic panel (09/02/2024 9:27 PM CDT) Sodium 133(L) 135 - 145 mmol/L Potassium, pl 4.8 3.3 - 4.9 mmol/L [facility] Chloride 96(L) 97 - 110 mmol/L [facility] CO2 29 22 - 32 mmol/L [facility] Anion gap 8 2 - 15 mmol/L [facility] BUN 19 6 - 25 mg/dL [facility] Creatinine 5.50(H) 0.60 - 1.10 mg/dL [facility] Glucose 75 70 - 199 mg/dL [facility] Comment: Interpretive Data Fasting glucose >/= 126 [...] 2022. Calcium 8.3(L) 8.5 - 10.3 mg/dL [facility] Bilirubin, total 0.6 0.1 - 1.2 mg/dL [facility] Protein, pl 7.7 6.5 - 8.5 g/dL [facility] Albumin 1.9(L) 3.5 - 5.0 g/dL [facility] Alk phos 122 40 - 130 Units/L [facility] ALT 44 7 - 45 Units/L [facility] AST 46(H) 10 - 45 Units/L [facility] Blood 09/02/2024 9:27 PM CDT 09/02/2024 9:31 PM CDT Valerie Cooper MD PhD LAB BLOOD ORDERABLES Final Result Performing Organization Address [facility] de Phone Number [facility] [place] [address] * POCT glucose (09/02/2024 8:55 AM CDT) Glucose, POC 70 70 - 199 mg/dL Blood 09/02/2024 8:55 AM CDT 09/02/2024 8:55 AM CDT Elizabet Dickey MD LAB POCT ORDERABLES - DEVICE Final Result Performing Organization Address [facility] Phone Number [facility] Department [place] [address] * POCT glucose (09/02/2024 12:27 AM CDT) [facility] Glucose, POC 100 70 - 199 mg/dL Blood 09/02/2024 12:2 7 AM CDT 09/02/2024 12:27 AM CDT Elizabet Dickey MD LAB POCT ORDERABLES - DEVICE Final Result Performing Organization Address [facility] de Phone Number [facility] [place] [address] * (ABNORMAL) eGFR (09/01/2024 8:47 PM CDT) Pathologist [facility] eGFR 14(L) >=60 mL/min/1. 73 m2 Comment: [...] MD PhD LAB BLOOD ORDERABLES Final Result [facility] [place] [address] * (ABNORMAL) Comprehensive metabolic panel (09/01/2024 8:47 PM CDT) Sodium 131(L) 135 - 145 mmol/L Potassium, pl 4.2 3.3 - 4.9 mmol/L [facility] Chloride 94(L) 97 - 110 mmol/L [facility] CO2 33(H) 22 - 32 mmol/L [facility] Anion gap 4 2 - 15 mmol/L [facility] BUN 12 6 - 25 mg/dL [facility] Creatinine 4.18(H) 0.60 - 1.10 mg/dL [facility] Glucose 77 70 - 199 mg/dL [facility] Comment: Interpretive Data Fasting glucose >/= 126 [...] 2022. Calcium 8.0(L) 8.5 - 10.3 mg/dL [facility] Bilirubin, total 0.5 0.1 - 1.2 mg/dL [facility] Protein, pl 7.7 6.5 - 8.5 g/dL [facility] Albumin 1.8(L) 3.5 - 5.0 g/dL [facility] Alk phos 132(H) 40 - 130 Units/L [facility] ALT 45 7 - 45 Units/L [facility] AST 45 10 - 45 Units/L [facility] Blood 09/01/2024 8:47 PM CDT 09/01/2024 9:18 PM CDT us Valerie Cooper MD PhD LAB BLOOD ORDERABLES Final Result Performing Organization Address [facility] Co de Phone Number [facility] [place] [address] * POCT glucose (09/01/2024 4:32 PM CDT) Glucose, POC 70 70 - 199 mg/dL Blood 09/01/2024 4:32 PM CDT 09/01/2024 4:32 PM CDT Elizabet Dickey MD LAB POCT ORDERABLES - DEVICE Final Result Performing Organization Address [facility] Co de Phone Number [facility] [place] [address] * POCT glucose (09/01/2024 12:53 PM CDT) Glucose, POC 74 70 - 199 mg/dL Blood 09/01/2024 12:5 3 PM CDT 09/01/2024 12:53 PM CDT Elizabet Dickey MD LAB POCT ORDERABLES - DEVICE Final Result Performing Organization Address [facility] Co de Phone Number [facility] [place] [address] * POCT glucose (09/01/2024 8:18 AM CDT) Glucose, POC 79 70 - 199 mg/dL Blood 09/01/2024 8:18 AM CDT 09/01/2024 8:18 AM CDT Elizabet Dickey MD LAB POCT ORDERABLES - DEVICE Final Result Performing Organization Address [facility] Co de Phone Number ARAM[facility] [place] [address] * POCT glucose (09/01/2024 12:16 AM CDT) Glucose, POC 137 70 - 199 mg/dL Blood 09/01/2024 12:1 6 AM CDT 09/01/2024 12:16 AM CDT Elizabet Dickey MD LAB POCT ORDERABLES - DEVICE Final Result Performing Organization Address [facility] Co de Phone Number ARAMIS [facility] [place] [address] * (ABNORMAL) eGFR (08/31/2024 8:43 PM CDT) [...] MD PhD LAB BLOOD ORDERABLES Final Result [facility] [place] [address] * (ABNORMAL) Differential, auto (08/31/2024 8:43 PM CDT) Neutrophil abs 7.94(H) 1.50 - 6.50 K/cumm Imm gran abs 0.06 0.00 - 0.10 K/cumm [facility] Lymphocyte abs 1.80 0.80 - 3.30 K/cumm [facility] Monocyte abs 1.02(H) 0.20 - 0.80 K/cumm [facility] Eosinophil abs 0.23 0.00 - 0.50 K/cumm [facility] Basophil abs 0.05 0.00 - 0.10 K/cumm [facility] Neutrophil pct 71.5 % [facility] Comment: Interpretive Data Percent cell count reference ranges are not reported, since discordance with absolute values may lead to misinterpretation of CBC data. Current Interpretive Data was last revised on 2017. Imm gran pct 0.5 % [facility] Comment: Interpretive Data Percent cell count reference ranges are not reported, since discordance with absolute values may lead to misinterpretation of CBC data. Current Interpretive Data was last revised on 2017. Lymphocyte pct 16.2 % [facility] Comment: Interpretive Data Percent cell count reference ranges are not reported, since discordance with absolute values may lead to misinterpretation of CBC data. Current Interpretive Data was last revised on 2017. Monocyte pct 9.2 % [facility] Comment: Interpretive Data Percent cell count reference ranges are not reported, since discordance with absolute values may lead to misinterpretation of CBC data. Current Interpretive Data was last revised on 2017. Eosinophil pct 2.1 % [facility] Comment: Interpretive Data Percent cell count reference ranges are not reported, since discordance with absolute values may lead to misinterpretation of CBC data. Current Interpretive Data was last revised on 2017. Basophil pct 0.5 % [facility] Comment: Interpretive Data Percent cell count reference ranges are not reported, since discordance with absolute values may lead to misinterpretation of CBC data. Current Interpretive Data was last revised on 2017. Blood 08/31/2024 8:43 PM CDT 08/31/2024 9:20 PM CDT Elizabet Dickey MD LAB BLOOD ORDERABLES F inal Result [facility] [place] [address] * (ABNORMAL) CBC with auto differential (08/31/2024 8:43 PM CDT) WBC 11.10(H) 3.80 - 9.90 K/cumm Hgb 8.5(L) 11.9 - 15.5 g/dL [facility] Hct 27.1(L) 35.6 - 45.5 % [facility] Plt 278 150 - 400 K/cumm [facility] MPV 9.9 9.1 - 12.3 fL [facility] RBC 3.06(L) 3.90 - 5.20 M/cumm [facility] MCV 88.6 81.3 - 96.4 fL [facility] MCH 27.8 27.1 - 33.3 pg [facility] MCHC 31.4(L) 32.3 - 35.7 g/dL [facility] RDW CV 18.3(H) 11.1 - 14.9 % [facility] RDW SD 57.3(H) 35.7 - 48.1 fL [facility] NRBC abs 0.00 0.00 - 0.01 K/cumm [facility] Blood 08/31/2024 8:43 PM CDT 08/31/2024 9:20 PM CDT Elizabet Dickey MD LAB BLOOD ORDERABLES F inal Result Performing Organization Address [facility] de Phone Number [facility] [place] [place] [address] * Type and screen (08/31/2024 8:43 PM CDT) [facility] ABO Rh A Positive Marybeth, indirect Negative [facility] Blood 08/31/2024 8:43 PM CDT 08/31/2024 9:19 PM CDT Narrative [facility] - 08/31/2024 10:13 PM CDT Has the patient had Daratumumab or Isatuximab in the past 6 months?->Unknown Elizabet Dickey MD LAB BLOOD BANK TEST OR DERABLES Final Result Performing Organization Address [facility] [place] [address] * (ABNORMAL) Comprehensive metabolic panel (08/31/2024 8:43 PM CDT) [facility] Sodium 131(L) 135 - 145 mmol/L Potassium, pl 3.8 3.3 - 4.9 mmol/L [facility] Chloride 94(L) 97 - 110 mmol/L [facility] CO2 32 22 - 32 mmol/L [facility] Anion gap 5 2 - 15 mmol/L [facility] BUN 7 6 - 25 mg/dL [facility] Creatinine 2.92(H) 0.60 - 1.10 mg/dL [facility] Glucose 73 70 - 199 mg/dL [facility] Comment: Interpretive Data Fasting glucose >/= 126 [...] 2022. Calcium 8.2(L) 8.5 - 10.3 mg/dL [facility] Bilirubin, total 0.6 0.1 - 1.2 mg/dL [facility] Protein, pl 8.2 6.5 - 8.5 g/dL [facility] Albumin 2.0(L) 3.5 - 5.0 g/dL [facility] Alk phos 126 40 - 130 Units/L [facility] ALT 68(H) 7 - 45 Units/L [facility] AST 72(H) 10 - 45 Units/L [facility] Blood 08/31/2024 8:43 PM CDT 08/31/2024 9:19 PM CDT us Valerie Cooper MD PhD LAB BLOOD ORDERABLES Final Result Performing Organization Address City/[facility]/ZIP Co de Phone Number [facility] [place] [address] * POCT glucose (08/31/2024 8:14 PM CDT) [facility] Signature Glucose, POC 74 70 - 199 mg/dL Blood 08/31/2024 8:14 PM CDT 08/31/2024 8:14 PM CDT us Elizabet Dickey MD LAB POCT ORDERABLES - DEVICE Final Result Performing Organization Address City/[facility]/ZIP Co de Phone Number [facility] Department [place] [address] * POCT glucose (08/31/2024 12:04 PM CDT) Glucose, POC 80 70 - 199 mg/dL Blood 08/31/2024 12:0 4 PM CDT 08/31/2024 12:04 PM CDT Elizabet Dickey MD LAB POCT ORDERABLES - DEVICE Final Result Performing Organization Address City/[facility] Co de Phone Number [facility] [place] [address] * POCT glucose (08/31/2024 9:29 AM CDT) Glucose, POC 175 70 - 199 mg/dL Comment:Glu2: RN/ Notified Glucose comment 1 Glu2: RN/ Notified [facility] Blood 08/31/2024 9:29 AM CDT 08/31/2024 9:29 AM CDT Elizabet Dickey MD LAB POCT ORDERABLES - DEVICE Final Result Performing Organization Address [facility] [place] [address] * POCT glucose (08/31/2024 8:48 AM CDT) Glucose, POC 74 70 - 199 mg/dL Comment:Glu2: RN/ Notified Glucose comment 1 Glu2: RN/ Notified [facility] Blood 08/31/2024 8:48 AM CDT 08/31/2024 8:48 AM CDT us Elizabet Dickey MD LAB POCT ORDERABLES - DEVICE Final Result Performing Organization Address City/[facility] Co de Phone Number [facility] [place] [address] * (ABNORMAL) POCT glucose (08/31/2024 8:22 AM CDT) Glucose, POC 66(L) 70 - 199 mg/dL Blood 08/31/2024 8:22 AM CDT 08/31/2024 8:22 AM CDT us Elizabet Dickey MD LAB POCT ORDERABLES - DEVICE Final Result Performing Organization Address [facility] Co de Phone Number [facility] [place] [address] * (ABNORMAL) POCT glucose (08/31/2024 12:41 AM CDT) Glucose, POC 265(H) 70 - 199 mg/dL Blood 08/31/2024 12:4 1 AM CDT 08/31/2024 12:41 AM CDT Elizabet Dickey MD LAB POCT ORDERABLES - DEVICE Final Result Performing Organization Address [facility] de Phone Number [facility] [place] [address] * (ABNORMAL) POCT glucose (08/31/2024 12:05 AM CDT) Glucose, POC 68(L) 70 - 199 mg/dL Blood 08/31/2024 12:0 5 AM CDT 08/31/2024 12:05 AM CDT Elizabet Dickey MD LAB POCT ORDERABLES - DEVICE Final Result Performing Organization Address [facility] de Phone Number [facility] [place] [address] * (ABNORMAL) eGFR (08/30/2024 9:37 PM CDT) eGFR 11(L) >=60 mL/min/1. 73 [...] MD PhD LAB BLOOD ORDERABLES Final Result [facility] [place] [address] * (ABNORMAL) Comprehensive metabolic panel (08/30/2024 9:37 PM CDT) Sodium 134(L) 135 - 145 mmol/L Potassium, pl 4.2 3.3 - 4.9 mmol/L [facility] Chloride 95(L) 97 - 110 mmol/L [facility] CO2 30 22 - 32 mmol/L [facility] Anion gap 9 2 - 15 mmol/L [facility] BUN 14 6 - 25 mg/dL [facility] Creatinine 4.98(H) 0.60 - 1.10 mg/dL [facility] Glucose 61(L) 70 - 199 mg/dL [facility] Comment: Interpretive Data Fasting glucose >/= 126 [...] MD PhD LAB BLOOD ORDERABLES Final Result [facility] [place] [address] * POCT glucose (08/30/2024 5:38 PM CDT) Glucose, POC 82 70 - 199 mg/dL Blood 08/30/2024 5:38 PM CDT 08/30/2024 5:38 PM CDT us Elizabet Dickey MD LAB POCT ORDERABLES - DEVICE Final Result Performing Organization Address City/[facility]/ZIP Co de Phone Number [facility] [place] [address] * (ABNORMAL) POCT glucose (08/30/2024 2:23 PM CDT) Glucose, POC 68(L) 70 - 199 mg/dL Blood 08/30/2024 2:23 PM CDT 08/30/2024 2:23 PM CDT us Elizabet Dickey MD LAB POCT ORDERABLES - DEVICE Final Result Performing Organization Address [facility] Co de Phone Number [facility] [place] [address] * POCT glucose (08/30/2024 7:53 AM CDT) Glucose, POC 156 70 - 199 mg/dL Comment:Glu2: RN/MD Notified Glucose comment 1 Glu2: RN/MD Notified [facility] Blood 08/30/2024 7:53 AM CDT 08/30/2024 7:53 AM CDT us Elizabet Dickey MD LAB POCT ORDERABLES - DEVICE Final Result Performing Organization Address [facility] Co de Phone Number [facility] [place] [address] * (ABNORMAL) POCT glucose (08/30/2024 7:37 AM CDT) Glucose, POC 69(L) 70 - 199 mg/dL Blood 08/30/2024 7:37 AM CDT 08/30/2024 7:37 AM CDT us Elizabet Dickey MD LAB POCT ORDERABLES - DEVICE Final Result Performing Organization Address [facility] [place] [address] * POCT glucose (08/30/2024 6:37 AM CDT) Glucose, POC 87 70 - 199 mg/dL Blood 08/30/2024 6:37 AM CDT 08/30/2024 6:37 AM CDT us Elizabet Dickey MD LAB POCT ORDERABLES - DEVICE Final Result Performing Organization Address [facility] Co de Phone Number [facility] [place] [address] * (ABNORMAL) POCT glucose (08/30/2024 5:15 AM CDT) Glucose, POC 57(L) 70 - 199 mg/dL Blood 08/30/2024 5:15 AM CDT 08/30/2024 5:15 AM CDT us Elizabet Dickey MD LAB POCT ORDERABLES - DEVICE Final Result Performing Organization Address [facility] de Phone Number [facility] [place] [address] * POCT glucose (08/29/2024 11:46 PM CDT) Glucose, POC 94 70 - 199 mg/dL Blood 08/29/2024 11:4 6 PM CDT 08/29/2024 11:46 PM CDT Result [facility] Elizabet Dickey MD LAB POCT ORDERABLES - DEVICE Final Result Performing Organization Address [facility] de Phone Number [facility] [place] [address] * (ABNORMAL) eGFR (08/29/2024 9:27 PM CDT) [...] 9:27 PM CDT 08/29/2024 10:01 PM CDT Valerie Cooper MD PhD LAB BLOOD ORDERABLES Final Result [facility] [place] [address] * Critical Result Callback Chemistry (08/29/2024 9:27 PM CDT) Date Notified [id number] Time Notified [id number] ARAMIS [facility] TestName Glucose AR[facility]IS [facility] Called/Read Back Emerita Amaral, KAELYN SELF [facility] Credentials RN ARAMIS PRUITT Called By [facility] emergency department ARAMIS PRUITT Blood 08/29/2024 9:27 PM CDT 08/29/2024 10:01 PM CDT us Valerie Cooper MD PhD LAB BLOOD ORDERABLES Final Result [facility] [place] [address] * (ABNORMAL) Comprehensive metabolic panel (08/29/2024 9:27 PM CDT) Sodium 136 135 - 145 mmol/L Potassium, pl 3.9 3.3 - 4.9 mmol/L [facility] Chloride 98 97 - 110 mmol/L [facility] CO2 32 22 - 32 mmol/L [facility] Anion gap 6 2 - 15 mmol/L [facility] BUN 10 6 - 25 mg/dL [facility] Creatinine 3.61(H) 0.60 - 1.10 mg/dL [facility] Glucose 52(C) 70 - 199 mg/dL [facility] Comment: Glycolysis suspected; suggest sending a barry [...] 2022. Calcium 8.0(L) 8.5 - 10.3 mg/dL [facility] Bilirubin, total 0.4 0.1 - 1.2 mg/dL [facility] Protein, pl 7.9 6.5 - 8.5 g/dL [facility] Albumin 1.7(L) 3.5 - 5.0 g/dL [facility] Alk phos 116 40 - 130 Units/L [facility] ALT 104(H) 7 - 45 Units/L [facility] AST 174(H) 10 - 45 Units/L [facility] Blood 08/29/2024 9:27 PM CDT 08/29/2024 10:01 PM CDT us Valerie Cooper MD PhD LAB BLOOD ORDERABLES Final Result [facility] Department [place] [address] * POCT glucose (08/29/2024 4:50 PM CDT) Glucose, POC 82 70 - 199 mg/dL Blood 08/29/2024 4:50 PM CDT 08/29/2024 4:50 PM CDT us Elizabet Dickey MD LAB POCT ORDERABLES - DEVICE Final Result Performing Organization Address [facility] de Phone Number [facility] [place] [address] * POCT glucose (08/29/2024 2:13 PM CDT) Glucose, POC 123 70 - 199 mg/dL Blood 08/29/2024 2:13 PM CDT 08/29/2024 2:13 PM CDT us Elizabet Dickey MD LAB POCT ORDERABLES - DEVICE Final Result Performing Organization Address [facility] de Phone Number [facility] [place] [address] * (ABNORMAL) POCT glucose (08/29/2024 12:57 PM CDT) Glucose, POC 67(L) 70 - 199 mg/dL Blood 08/29/2024 12:5 7 PM CDT 08/29/2024 12:57 PM CDT us Elizabet Dickey MD LAB POCT ORDERABLES - DEVICE Final Result Performing Organization Address [facility] de Phone Number [facility] [place] [address] * POCT glucose (08/29/2024 8:53 AM CDT) Glucose, POC 87 70 - 199 mg/dL Blood 08/29/2024 8:53 AM CDT 08/29/2024 8:53 AM CDT us Elizabet Dickey MD LAB POCT ORDERABLES - DEVICE Final Result Performing Organization Address [facility] Co de Phone Number [id number] [place] [address] * POCT glucose (08/29/2024 8:32 AM CDT) Glucose, POC 70 70 - 199 mg/dL Blood 08/29/2024 8:32 AM CDT 08/29/2024 8:32 AM CDT Elizabet Dickey MD LAB POCT ORDERABLES - DEVICE Final Result Performing Organization Address [facility] Co de Phone Number [facility] [place] [address] * (ABNORMAL) POCT glucose (08/29/2024 8:00 AM CDT) Glucose, POC 55(L) 70 - 199 mg/dL Blood 08/29/2024 8:00 AM CDT 08/29/2024 8:00 AM CDT Elizabet Dickey MD LAB POCT ORDERABLES - DEVICE Final Result Performing Organization Address [facility] Co de Phone Number [facility] [place] [address] * (ABNORMAL) eGFR (08/28/2024 8:51 PM CDT) [...] MD PhD LAB BLOOD ORDERABLES Final Result [facility] [place] [address] * (ABNORMAL) Differential, auto (08/28/2024 8:51 PM CDT) Neutrophil abs 6.41 1.50 - 6.50 K/cumm Imm gran abs 0.07 0.00 - 0.10 K/cumm [facility] Lymphocyte abs 1.50 0.80 - 3.30 K/cumm [facility] Monocyte abs 0.93(H) 0.20 - 0.80 K/cumm [facility] Eosinophil abs 0.05 0.00 - 0.50 K/cumm [facility] Basophil abs 0.06 0.00 - 0.10 K/cumm [facility] Neutrophil pct 71.0 % [facility] Comment: Interpretive Data Percent cell count reference ranges are not reported, since discordance with absolute values may lead to misinterpretation of CBC data. Current Interpretive Data was last revised on 2017. Imm gran pct 0.8 % [facility] Comment: Interpretive Data Percent cell count reference ranges are not reported, since discordance with absolute values may lead to misinterpretation of CBC data. Current Interpretive Data was last revised on 2017. Lymphocyte pct 16.6 % [facility] Comment: Interpretive Data Percent cell count reference ranges are not reported, since discordance with absolute values may lead to misinterpretation of CBC data. Current Interpretive Data was last revised on 2017. Monocyte pct 10.3 % [facility] Comment: Interpretive Data Percent cell count reference ranges are not reported, since discordance with absolute values may lead to misinterpretation of CBC data. Current Interpretive Data was last revised on 2017. Eosinophil pct 0.6 % [facility] Comment: Interpretive Data Percent cell count reference ranges are not reported, since discordance with absolute values may lead to misinterpretation of CBC data. Current Interpretive Data was last revised on 2017. Basophil pct 0.7 % [facility] Comment: Interpretive Data Percent cell count reference ranges are not reported, since discordance with absolute values may lead to misinterpretation of CBC data. Current Interpretive Data was last revised on 2017. Blood 08/28/2024 8:51 PM CDT 08/28/2024 9:20 PM CDT Elizabet Dickey MD LAB BLOOD ORDERABLES F inal Result [facility] [place] [address] * (ABNORMAL) CBC with auto differential (08/28/2024 8:51 PM CDT) WBC 9.02 3.80 - 9.90 K/cumm Hgb 7.9(L) 11.9 - 15.5 g/dL [facility] Hct 25.5(L) 35.6 - 45.5 % [facility] Plt 326 150 - 400 K/cumm [facility] MPV 10.1 9.1 - 12.3 fL [facility] RBC 2.88(L) 3.90 - 5.20 M/cumm [facility] MCV 88.5 81.3 - 96.4 fL [facility] MCH 27.4 27.1 - 33.3 pg [facility] MCHC 31.0(L) 32.3 - 35.7 g/dL [facility] RDW CV 17.6(H) 11.1 - 14.9 % [facility] RDW SD 53.8(H) 35.7 - 48.1 fL [facility] NRBC abs 0.03(H) 0.00 - 0.01 K/cumm [facility] Blood 08/28/2024 8:51 PM CDT 08/28/2024 9:20 PM CDT Elizabet Dickey MD LAB BLOOD ORDERABLES F inal Result Performing Organization Address [facility] Co de Phone Number [facility] Department [place] [address] * Type and screen (08/28/2024 8:51 PM CDT) [facility] ABO Rh A Positive Marybeth, indirect Negative [facility] Blood 08/28/2024 8:51 PM CDT 08/28/2024 9:37 PM CDT Narrative [facility] - 08/28/2024 10:56 PM CDT Has the patient had Daratumumab or Isatuximab in the past 6 months?->Unknown Carla Penny MD LAB BLOOD BANK TEST ORDERABLES Final Result Performing Organization Address [facility] de Phone Number [facility] [place] [address] * (ABNORMAL) Comprehensive metabolic panel (08/28/2024 8:51 PM CDT) [facility] Sodium 137 135 - 145 mmol/L Potassium, pl 4.2 3.3 - 4.9 mmol/L [facility] Chloride 100 97 - 110 mmol/L [facility] CO2 27 22 - 32 mmol/L [facility] Anion gap 10 2 - 15 mmol/L [facility] BUN 14 6 - 25 mg/dL [facility] Creatinine 5.37(H) 0.60 - 1.10 mg/dL [facility] Glucose 101 70 - 199 mg/dL [facility] Comment: Interpretive Data Fasting glucose >/= 126 [...] 2022. Calcium 7.9(L) 8.5 - 10.3 mg/dL [facility] Bilirubin, total 0.4 0.1 - 1.2 mg/dL [facility] Protein, pl 7.8 6.5 - 8.5 g/dL [facility] Albumin 1.9(L) 3.5 - 5.0 g/dL [facility] Alk phos 112 40 - 130 Units/L [facility] ALT 73(H) 7 - 45 Units/L [facility] AST 114(H) 10 - 45 Units/L [facility] Blood 08/28/2024 8:51 PM CDT 08/28/2024 9:20 PM CDT us Valerie Cooper MD PhD LAB BLOOD ORDERABLES Final Result Performing Organization Address City/[facility]/ZIP Co de Phone Number [facility] [place] [address] * POCT glucose (08/28/2024 8:07 PM CDT) [facility] Signature Glucose, POC 107 70 - 199 mg/dL Blood 08/28/2024 8:07 PM CDT 08/28/2024 8:07 PM CDT us Elizabet Dickey MD LAB POCT ORDERABLES - DEVICE Final Result Performing Organization Address City/[facility]/ZIP Co de Phone Number [facility] [place] [address] * POCT glucose (08/28/2024 7:20 PM CDT) Glucose, POC 88 70 - 199 mg/dL Blood 08/28/2024 7:20 PM CDT 08/28/2024 7:20 PM CDT Elizabet Dickey MD LAB POCT ORDERABLES - DEVICE Final Result Performing Organization Address City/[facility] Co de Phone Number [facility] [place] [address] * (ABNORMAL) POCT glucose (08/28/2024 6:58 PM CDT) Glucose, POC 62(L) 70 - 199 mg/dL Blood 08/28/2024 6:58 PM CDT 08/28/2024 6:58 PM CDT Elizabet Dickey MD LAB POCT ORDERABLES - DEVICE Final Result Performing Organization Address [facility] Co de Phone Number [facility] [place] [address] * POCT glucose (08/28/2024 12:00 PM CDT) Glucose, POC 77 70 - 199 mg/dL Blood 08/28/2024 12:0 0 PM CDT 08/28/2024 12:00 PM CDT Elizabet Dickey MD LAB POCT ORDERABLES - DEVICE Final Result Performing Organization Address City/[facility] Co de Phone Number [facility] [place] [address] * POCT glucose (08/28/2024 7:43 AM CDT) Glucose, POC 71 70 - 199 mg/dL Blood 08/28/2024 7:43 AM CDT 08/28/2024 7:43 AM CDT Elizabet Dickey MD LAB POCT ORDERABLES - DEVICE Final Result Performing Organization Address City/[facility]/ZIP Co de Phone Number [facility] [place] [address] * (ABNORMAL) eGFR (08/27/2024 9:10 PM CDT) eGFR 16(L) >=60 mL/min/1. 73 [...] MD PhD LAB BLOOD ORDERABLES Final Result [facility] [place] [address] * (ABNORMAL) Comprehensive metabolic panel (08/27/2024 9:10 PM CDT) Sodium 132(L) 135 - 145 mmol/L Potassium, pl 3.5 3.3 - 4.9 mmol/L [facility] Chloride 99 97 - 110 mmol/L [facility] CO2 29 22 - 32 mmol/L [facility] Anion gap 4 2 - 15 mmol/L [facility] BUN 10 6 - 25 mg/dL [facility] Creatinine 3.79(H) 0.60 - 1.10 mg/dL [facility] Glucose 102 70 - 199 mg/dL [facility] Comment: Interpretive Data Fasting glucose >/= 126 [...] 2022. Calcium 7.6(L) 8.5 - 10.3 mg/dL [facility] Bilirubin, total 0.4 0.1 - 1.2 mg/dL [facility] Protein, pl 7.2 6.5 - 8.5 g/dL [facility] Albumin 1.7(L) 3.5 - 5.0 g/dL [facility] Alk phos 108 40 - 130 Units/L [facility] ALT 54(H) 7 - 45 Units/L [facility] AST 101(H) 10 - 45 Units/L [facility] Blood 08/27/2024 9:10 PM CDT 08/27/2024 9:45 PM CDT us Valerie Cooper MD PhD LAB BLOOD ORDERABLES Final Result [facility] [place] [address] * POCT glucose (08/27/2024 6:28 PM CDT) Glucose, POC 80 70 - 199 mg/dL Blood 08/27/2024 6:28 PM CDT 08/27/2024 6:28 PM CDT Jone Vann MD LAB POCT ORDERABLES - DEVICE Final Result Performing Organization Address [facility] Co de Phone Number [facility] [place] [address] * POCT glucose (08/27/2024 4:35 PM CDT) Glucose, POC 79 70 - 199 mg/dL Blood 08/27/2024 4:35 PM CDT 08/27/2024 4:35 PM CDT Jone Vann MD LAB POCT ORDERABLES - DEVICE Final Result Performing Organization Address [facility] Co de Phone Number [facility] [place] [address] * POCT glucose (08/27/2024 11:13 AM CDT) Glucose, POC 76 70 - 199 mg/dL Blood 08/27/2024 11:1 3 AM CDT 08/27/2024 11:13 AM CDT us Jone Vann MD LAB POCT ORDERABLES - DEVICE Final Result Performing Organization Address [facility] Co de Phone Number [facility] Department [place] [address] * POCT glucose (08/27/2024 7:40 AM CDT) Glucose, POC 73 70 - 199 mg/dL Blood 08/27/2024 7:40 AM CDT 08/27/2024 7:40 AM CDT Jone Vann MD LAB POCT ORDERABLES - DEVICE Final Result Performing Organization Address City/[facility] Co de Phone Number [facility] Department [place] [address] * XR Chest 1 View (08/27/2024 5:23 [...] seen. Electronically signed by: Vito Celestin M.D. Jone Vann MD IMG XR PROCEDURES [...] MD PhD LAB BLOOD ORDERABLES Final Result [facility] [place] [address] * (ABNORMAL) Differential, auto (08/26/2024 9:49 PM CDT) Neutrophil abs 7.92(H) 1.50 - 6.50 K/cumm Imm gran abs 0.09 0.00 - 0.10 K/cumm [facility] Lymphocyte abs 1.87 0.80 - 3.30 K/cumm [facility] Monocyte abs 1.12(H) 0.20 - 0.80 K/cumm [facility] Eosinophil abs 0.13 0.00 - 0.50 K/cumm [facility] Basophil abs 0.07 0.00 - 0.10 K/cumm [facility] Neutrophil pct 70.7 % [facility] Comment: Interpretive Data Percent cell count reference ranges are not reported, since discordance with absolute values may lead to misinterpretation of CBC data. Current Interpretive Data was last revised on 2017. Imm gran pct 0.8 % [facility] Comment: Interpretive Data Percent cell count reference ranges are not reported, since discordance with absolute values may lead to misinterpretation of CBC data. Current Interpretive Data was last revised on 2017. Lymphocyte pct 16.7 % [facility] Comment: Interpretive Data Percent cell count reference ranges are not reported, since discordance with absolute values may lead to misinterpretation of CBC data. Current Interpretive Data was last revised on 2017. Monocyte pct 10.0 % [facility] Comment: Interpretive Data Percent cell count reference ranges are not reported, since discordance with absolute values may lead to misinterpretation of CBC data. Current Interpretive Data was last revised on 2017. Eosinophil pct 1.2 % [facility] Comment: Interpretive Data Percent cell count reference ranges are not reported, since discordance with absolute values may lead to misinterpretation of CBC data. Current Interpretive Data was last revised on 2017. Basophil pct 0.6 % [facility] Comment: Interpretive Data Percent cell count reference ranges are not reported, since discordance with absolute values may lead to misinterpretation of CBC data. Current Interpretive Data was last revised on 2017. Blood 08/26/2024 9:49 PM CDT 08/26/2024 10:33 PM CDT us Jone Vann MD LAB BLOOD ORDERABLES Final R esult [facility] [place] [address] * (ABNORMAL) CBC with auto differential (08/26/2024 9:49 PM CDT) WBC 11.20(H) 3.80 - 9.90 K/cumm Hgb 7.7(L) 11.9 - 15.5 g/dL [facility] Hct 24.4(L) 35.6 - 45.5 % [facility] Plt 299 150 - 400 K/cumm [facility] MPV 10.1 9.1 - 12.3 fL [facility] RBC 2.74(L) 3.90 - 5.20 M/cumm [facility] MCV 89.1 81.3 - 96.4 fL [facility] MCH 28.1 27.1 - 33.3 pg [facility] MCHC 31.6(L) 32.3 - 35.7 g/dL [facility] RDW CV 16.8(H) 11.1 - 14.9 % [facility] RDW SD 52.7(H) 35.7 - 48.1 fL [facility] NRBC abs 0.00 0.00 - 0.01 K/cumm [facility] Blood 08/26/2024 9:49 PM CDT 08/26/2024 10:33 PM CDT us Jone Vann MD LAB BLOOD ORDERABLES Final R esult [facility] [place] [address] * (ABNORMAL) Comprehensive metabolic panel (08/26/2024 9:49 PM CDT) [facility] Sodium 136 135 - 145 mmol/L Potassium, pl 4.5 3.3 - 4.9 mmol/L [facility] Chloride 100 97 - 110 mmol/L [facility] CO2 27 22 - 32 mmol/L [facility] Anion gap 9 2 - 15 mmol/L [facility] BUN 23 6 - 25 mg/dL [facility] Creatinine 6.49(H) 0.60 - 1.10 mg/dL [facility] Glucose 77 70 - 199 mg/dL [facility] Comment: Interpretive Data Fasting glucose >/= 126 [...] 2022. Calcium 8.0(L) 8.5 - 10.3 mg/dL [facility] Bilirubin, total 0.4 0.1 - 1.2 mg/dL [facility] Protein, pl 7.8 6.5 - 8.5 g/dL [facility] Albumin 2.0(L) 3.5 - 5.0 g/dL [facility] Alk phos 113 40 - 130 Units/L [facility] ALT 33 7 - 45 Units/L [facility] AST 50(H) 10 - 45 Units/L [facility] Blood 08/26/2024 9:49 PM CDT 08/26/2024 10:32 PM CDT us Valerie Cooper MD PhD LAB BLOOD ORDERABLES Final Result Performing Organization Address [facility] Co de Phone Number [facility] Department [place] [address] * POCT glucose (08/26/2024 9:04 PM CDT) Glucose, POC 93 70 - 199 mg/dL Blood 08/26/2024 9:04 PM CDT 08/26/2024 9:04 PM CDT us Jone Vann MD LAB POCT ORDERABLES - DEVICE Final Result Performing Organization Address [facility] Co de Phone Number [facility] Department [place] [address] * POCT glucose (08/26/2024 7:05 PM CDT) Glucose, POC 110 70 - 199 mg/dL Blood 08/26/2024 7:05 PM CDT 08/26/2024 7:05 PM CDT us Jone Vann MD LAB POCT ORDERABLES - DEVICE Final Result Performing Organization Address [facility] Co de Phone Number [facility] Department [place] [address] * POCT glucose (08/26/2024 1:17 PM CDT) Glucose, POC 126 70 - 199 mg/dL Blood 08/26/2024 1:17 PM CDT 08/26/2024 1:17 PM CDT Jone Vann MD LAB POCT ORDERABLES - DEVICE Final Result Performing Organization Address [facility] [place] [address] * POCT glucose (08/26/2024 8:18 AM CDT) Glucose, POC 101 70 - 199 mg/dL Blood 08/26/2024 8:18 AM CDT 08/26/2024 8:18 AM CDT Jone Vann MD LAB POCT ORDERABLES - DEVICE Final Result Performing Organization Address [facility] [place] [address] * XR Chest 1 View (08/26/2024 5:41 [...] ON ORDERABLES Final Result Performing Organization Address [facility] Co de Phone Number [facility] [place] [address] * Type and screen (08/26/2024 12:28 AM CDT) ABO Rh A Positive Marybeth, indirect Negative [facility] Blood 08/26/2024 12:2 8 AM CDT 08/26/2024 12:49 AM CDT Narrative [facility] - 08/26/2024 1:58 AM CDT Has the patient had Daratumumab or Isatuximab in the past 6 months?->Unknown Carla Penny MD LAB BLOOD BANK TEST ORDERABLES Final Result [facility] [place] [address] * Prepare RBC: 1 Units (08/26/2024 12:06 AM CDT) Product code [id number] Unit Number [id number] [facility] Product Blood Type APOS [facility] Dispense Status PRESUMED TRANSFUSED [facility] Blood 08/26/2024 12:0 6 AM CDT 08/26/2024 12:06 AM CDT Narrative [facility] - 08/26/2024 4:01 PM CDT Are special requirements needed? (All products are leukoreduced and CMV- safe)- >No Date required:-[id number] LRRBC # of [id number] Reasons:-Hgb <7 g/dL} us Carla Penny MD BLOOD BANK PROD UCT ORDERABLES Final Result [facility] [place] [address] * (ABNORMAL) eGFR (08/25/2024 10:15 PM CDT) [...] MD PhD LAB BLOOD ORDERABLES Final Result [facility] [place] [address] * (ABNORMAL) Differential, auto (08/25/2024 10:15 PM CDT) Neutrophil abs 5.78 1.50 - 6.50 K/cumm Imm gran abs 0.08 0.00 - 0.10 K/cumm [facility] Lymphocyte abs 1.71 0.80 - 3.30 K/cumm [facility] Monocyte abs 0.92(H) 0.20 - 0.80 K/cumm [facility] Eosinophil abs 0.18 0.00 - 0.50 K/cumm [facility] Basophil abs 0.08 0.00 - 0.10 K/cumm [facility] Neutrophil pct 66.1 % [facility] Comment: Interpretive Data Percent cell count reference ranges are not reported, since discordance with absolute values may lead to misinterpretation of CBC data. Current Interpretive Data was last revised on 2017. Imm gran pct 0.9 % [facility] Comment: Interpretive Data Percent cell count reference ranges are not reported, since discordance with absolute values may lead to misinterpretation of CBC data. Current Interpretive Data was last revised on 2017. Lymphocyte pct 19.5 % [facility] Comment: Interpretive Data Percent cell count reference ranges are not reported, since discordance with absolute values may lead to misinterpretation of CBC data. Current Interpretive Data was last revised on 2017. Monocyte pct 10.5 % [facility] Comment: Interpretive Data Percent cell count reference ranges are not reported, since discordance with absolute values may lead to misinterpretation of CBC data. Current Interpretive Data was last revised on 2017. Eosinophil pct 2.1 % [facility] Comment: Interpretive Data Percent cell count reference ranges are not reported, since discordance with absolute values may lead to misinterpretation of CBC data. Current Interpretive Data was last revised on 2017. Basophil pct 0.9 % [facility] Comment: Interpretive Data Percent cell count reference ranges are not reported, since discordance with absolute values may lead to misinterpretation of CBC data. Current Interpretive Data was last revised on 2017. Blood 08/25/2024 10:1 5 PM CDT 08/25/2024 11:24 PM CDT us Jone Vann MD LAB BLOOD ORDERABLES Final R esult [facility] Department [place] [address] * (ABNORMAL) CBC with auto differential (08/25/2024 10:15 PM CDT) WBC 8.75 3.80 - 9.90 K/cumm Hgb 6.0(C) 11.9 - 15.5 g/dL [facility] Comment:This result has been called to Isr[employer] by [email or web address] on 08/25/2024 23:56:58, and has been read back. Hct 19.4(L) 35.6 - 45.5 % [facility] Plt 297 150 - 400 K/cumm [facility] MPV 10.0 9.1 - 12.3 fL [facility] RBC 2.19(L) 3.90 - 5.20 M/cumm [facility] MCV 88.6 81.3 - 96.4 fL [facility] MCH 27.4 27.1 - 33.3 pg [facility] MCHC 30.9(L) 32.3 - 35.7 g/dL [facility] RDW CV 16.6(H) 11.1 - 14.9 % [facility] RDW SD 53.2(H) 35.7 - 48.1 fL [facility] NRBC abs 0.00 0.00 - 0.01 K/cumm [facility] Blood 08/25/2024 10:1 5 PM CDT 08/25/2024 11:24 PM CDT us Jone Vann MD LAB BLOOD ORDERABLES Final R esult [facility] Department [place] [address] * (ABNORMAL) Comprehensive metabolic panel (08/25/2024 10:15 PM CDT) Sodium 136 135 - 145 mmol/L Potassium, pl 3.5 3.3 - 4.9 mmol/L [facility] Chloride 104 97 - 110 mmol/L [facility] CO2 28 22 - 32 mmol/L [facility] Anion gap 4 2 - 15 mmol/L [facility] BUN 17 6 - 25 mg/dL [facility] Creatinine 4.77(H) 0.60 - 1.10 mg/dL [facility] Glucose 136 70 - 199 mg/dL [facility] Comment: Interpretive Data Fasting glucose >/= 126 [...] 2022. Calcium 7.1(L) 8.5 - 10.3 mg/dL [facility] Bilirubin, total 0.3 0.1 - 1.2 mg/dL [facility] Protein, pl 6.6 6.5 - 8.5 g/dL [facility] Albumin 1.6(L) 3.5 - 5.0 g/dL [facility] Alk phos 112 40 - 130 Units/L [facility] ALT 32 7 - 45 Units/L [facility] AST 57(H) 10 - 45 Units/L [facility] Blood 08/25/2024 10:1 5 PM CDT 08/25/2024 11:23 PM CDT us Valerie Cooper MD PhD LAB BLOOD ORDERABLES Final Result [facility] [place] [address] * POCT glucose (08/25/2024 6:00 PM CDT) Glucose, POC 103 70 - 199 mg/dL Blood 08/25/2024 6:00 PM CDT 08/25/2024 6:00 PM CDT Jone Vann MD LAB POCT ORDERABLES - DEVICE Final Result [facility] [place] [address] * XR Abdomen Ap 1 Vw (08/25/2024 [...] - DEVICE Final Result Performing Organization Address [facility] de Phone Number [facility] [place] [address] * POCT glucose (08/25/2024 10:54 AM CDT) Glucose, POC 73 70 - 199 mg/dL Blood 08/25/2024 10:5 4 AM CDT 08/25/2024 10:54 AM CDT Jone Vann MD LAB POCT ORDERABLES - DEVICE Final Result Performing Organization Address [facility] de Phone Number [facility] [place] [address] * POCT glucose (08/25/2024 10:29 AM CDT) Glucose, POC 75 70 - 199 mg/dL Blood 08/25/2024 10:2 9 AM CDT 08/25/2024 10:29 AM CDT Jone Vann MD LAB POCT ORDERABLES - DEVICE Final Result Performing Organization Address City/[facility] de Phone Number [facility] [place] [address] * (ABNORMAL) POCT glucose (08/25/2024 9:54 AM CDT) Glucose, POC 67(L) 70 - 199 mg/dL Blood 08/25/2024 9:54 AM CDT 08/25/2024 9:54 AM CDT us Jone Vann MD LAB POCT ORDERABLES - DEVICE Final Result [facility] [place] [address] * XR Chest 1 View (08/25/2024 6:41 [...] PhD LAB BLOOD ORDERABLES Final Result [facility] [place] [address] * (ABNORMAL) Comprehensive metabolic panel (08/24/2024 8:32 PM CDT) Sodium 133(L) 135 - 145 mmol/L Potassium, pl 3.7 3.3 - 4.9 mmol/L [facility] Chloride 97 97 - 110 mmol/L [facility] CO2 33(H) 22 - 32 mmol/L [facility] Anion gap 3 2 - 15 mmol/L [facility] BUN 11 6 - 25 mg/dL [facility] Creatinine 3.70(H) 0.60 - 1.10 mg/dL [facility] Glucose 77 70 - 199 mg/dL [facility] Comment: Interpretive Data Fasting glucose >/= 126 [...] 2022. Calcium 8.0(L) 8.5 - 10.3 mg/dL [facility] Bilirubin, total 0.4 0.1 - 1.2 mg/dL [facility] Protein, pl 7.6 6.5 - 8.5 g/dL [facility] Albumin 1.7(L) 3.5 - 5.0 g/dL [facility] Alk phos 87 40 - 130 Units/L [facility] ALT 32 7 - 45 Units/L [facility] AST 66(H) 10 - 45 Units/L [facility] Blood 08/24/2024 8:32 PM CDT 08/24/2024 9:25 PM CDT us Valerie Cooper MD PhD LAB BLOOD ORDERABLES Final Result [facility] Department [place] [address] * POCT glucose (08/24/2024 8:18 PM CDT) [facility] Signature Glucose, POC 134 70 - 199 mg/dL Blood 08/24/2024 8:18 PM CDT 08/24/2024 8:18 PM CDT Jone Vann MD LAB POCT ORDERABLES - DEVICE Final Result Performing Organization Address [facility] Co de Phone Number [facility] [place] [address] * POCT glucose (08/24/2024 6:24 PM CDT) Glucose, POC 103 70 - 199 mg/dL Blood 08/24/2024 6:24 PM CDT 08/24/2024 6:24 PM CDT Jone Vann MD LAB POCT ORDERABLES - DEVICE Final Result Performing Organization Address [facility] Co de Phone Number [facility] [address] * (ABNORMAL) POCT glucose (08/24/2024 5:45 PM CDT) Glucose, POC 69(L) 70 - 199 mg/dL Comment:Glu2: RN/MD Notified Glucose comment 1 Glu2: RN/MD Notified [facility] Blood 08/24/2024 5:45 PM CDT 08/24/2024 5:45 PM CDT Jone Vann MD LAB POCT ORDERABLES - DEVICE Final Result Performing Organization Address [facility] [place] [address] * POCT glucose (08/24/2024 1:46 PM CDT) Glucose, POC 108 70 - 199 mg/dL Blood 08/24/2024 1:46 PM CDT 08/24/2024 1:46 PM CDT Jone Vann MD LAB POCT ORDERABLES - DEVICE Final Result Performing Organization Address [facility] de Phone Number [facility] [place] [address] * POCT glucose (08/24/2024 1:30 PM CDT) Glucose, POC 90 70 - 199 mg/dL Blood 08/24/2024 1:30 PM CDT 08/24/2024 1:30 PM CDT Jone Vann MD LAB POCT ORDERABLES - DEVICE Final Result Performing Organization Address [facility] Phone Number [facility] [place] [address] * (ABNORMAL) POCT glucose (08/24/2024 1:09 PM CDT) Glucose, POC 68(L) 70 - 199 mg/dL Comment:Glu2: RN/MD Notified Glucose comment 1 Glu2: RN/MD Notified [facility] Blood 08/24/2024 1:09 PM CDT 08/24/2024 1:09 PM CDT Jone Vann MD LAB POCT ORDERABLES - DEVICE Final Result Performing Organization Address [facility] de Phone Number [facility] [place] [address] * (ABNORMAL) POCT glucose (08/24/2024 12:30 PM CDT) Glucose, POC 61(L) 70 - 199 mg/dL Blood 08/24/2024 12:3 0 PM CDT 08/24/2024 12:30 PM CDT Jone Vann MD LAB POCT ORDERABLES - DEVICE Final Result Performing Organization Address [facility] Co de Phone Number [facility] [place] [address] * POCT glucose (08/24/2024 9:18 AM CDT) Glucose, POC 86 70 - 199 mg/dL Blood 08/24/2024 9:18 AM CDT 08/24/2024 9:18 AM CDT Jone Vann MD LAB POCT ORDERABLES - DEVICE Final Result Performing Organization Address [facility] Co de Phone Number [facility] [place] [address] * POCT glucose (08/24/2024 8:26 AM CDT) Glucose, POC 70 70 - 199 mg/dL Blood 08/24/2024 8:26 AM CDT 08/24/2024 8:26 AM CDT Jone Vann MD LAB POCT ORDERABLES - DEVICE Final Result Performing Organization Address [facility] Co de Phone Number [facility] [place] [address] * Hepatitis B surface antibody (immune status) Blood (08/24/2024 7:54 AM CDT) HBsAb (immune status) Reactive Comment:This result is consi stent with immunity to Hepatitis B Virus when used in the setting of routine screening. Current interpretive data was last revised on 21 HBsAb (immune status) index 127.0 mIUnits/m L [facility] Blood 08/24/2024 7:54 AM CDT 08/24/2024 8:35 AM CDT us Nikita Umanzor MD LAB MICROBIOLOGY - GENERAL ORDER MARTINEZ Final Result [facility] [place] [address] * XR Chest 1 View (08/24/2024 7:02 [...] * (ABNORMAL) eGFR (08/23/2024 8:55 PM CDT) [facility] eGFR 10(L) >=60 mL/min/1. 73 m2 Comment: [...] MD PhD LAB BLOOD ORDERABLES Final Result [facility] [place] [address] * (ABNORMAL) Differential, auto (08/23/2024 8:55 PM CDT) [facility] Neutrophil abs 7.74(H) 1.50 - 6.50 K/cumm Imm gran abs 0.07 0.00 - 0.10 K/cumm [facility] Lymphocyte abs 1.68 0.80 - 3.30 K/cumm [facility] Monocyte abs 0.91(H) 0.20 - 0.80 K/cumm [facility] Eosinophil abs 0.20 0.00 - 0.50 K/cumm [facility] Basophil abs 0.10 0.00 - 0.10 K/cumm [facility] Neutrophil pct 72.3 % [facility] Comment: Interpretive Data Percent cell count reference ranges are not reported, since discordance with absolute values may lead to misinterpretation of CBC data. Current Interpretive Data was last revised on 2017. Imm gran pct 0.7 % [facility] Comment: Interpretive Data Percent cell count reference ranges are not reported, since discordance with absolute values may lead to misinterpretation of CBC data. Current Interpretive Data was last revised on 2017. Lymphocyte pct 15.7 % [facility] Comment: Interpretive Data Percent cell count reference ranges are not reported, since discordance with absolute values may lead to misinterpretation of CBC data. Current Interpretive Data was last revised on 2017. Monocyte pct 8.5 % [facility] Comment: Interpretive Data Percent cell count reference ranges are not reported, since discordance with absolute values may lead to misinterpretation of CBC data. Current Interpretive Data was last revised on 2017. Eosinophil pct 1.9 % [facility] Comment: Interpretive Data Percent cell count reference ranges are not reported, since discordance with absolute values may lead to misinterpretation of CBC data. Current Interpretive Data was last revised on 2017. Basophil pct 0.9 % [facility] Comment: Interpretive Data Percent cell count reference ranges are not reported, since discordance with absolute values may lead to misinterpretation of CBC data. Current Interpretive Data was last revised on 2017. Blood 08/23/2024 8:55 PM CDT 08/23/2024 9:40 PM CDT us Jone Vann MD LAB BLOOD ORDERABLES Final R esult [facility] Department of Laboratories [place], [place] [id number] * (ABNORMAL) CBC with auto differential (08/23/2024 8:55 PM CDT) WBC 10.70(H) 3.80 - 9.90 K/cumm Hgb 7.5(L) 11.9 - 15.5 g/dL ARAMIS [facility] Hct 23.5(L) 35.6 - 45.5 % [facility] Plt 300 150 - 400 K/cumm [facility] MPV 9.7 9.1 - 12.3 fL [facility] RBC 2.67(L) 3.90 - 5.20 M/cumm [facility] MCV 88.0 81.3 - 96.4 fL [facility] MCH 28.1 27.1 - 33.3 pg [facility] MCHC 31.9(L) 32.3 - 35.7 g/dL [facility] RDW CV 16.4(H) 11.1 - 14.9 % [facility] RDW SD 51.8(H) 35.7 - 48.1 fL [facility] NRBC abs 0.00 0.00 - 0.01 K/cumm [facility] Blood 08/23/2024 8:55 PM CDT 08/23/2024 9:40 PM CDT us Jone Vann MD LAB BLOOD ORDERABLES Final R esult [facility] [place] [address] * Type and screen (08/23/2024 8:55 PM CDT) Pathologist [facility] Marybeth, indirect Negative ABO Rh A Positive [facility] Blood 08/23/2024 8:55 PM CDT 08/23/2024 9:43 PM CDT Narrative [facility] - 08/23/2024 10:59 PM CDT Has the patient had Daratumumab or Isatuximab in the past 6 months?->Unknown us Royal Weiss MD LAB BLOOD BANK TEST ORDER MARTINEZ Final Result [facility] [place] [address] * (ABNORMAL) Comprehensive metabolic panel (08/23/2024 8:55 PM CDT) Pathologist [facility] Sodium 133(L) 135 - 145 mmol/L Potassium, pl 4.6 3.3 - 4.9 mmol/L [facility] Chloride 97 97 - 110 mmol/L [facility] CO2 32 22 - 32 mmol/L [facility] Anion gap 4 2 - 15 mmol/L [facility] BUN 21 6 - 25 mg/dL [facility] Creatinine 5.43(H) 0.60 - 1.10 mg/dL [facility] Glucose 75 70 - 199 mg/dL [facility] Comment: Interpretive Data Fasting glucose >/= 126 [...] 2022. Calcium 8.3(L) 8.5 - 10.3 mg/dL [facility] Bilirubin, total 0.4 0.1 - 1.2 mg/dL [facility] Protein, pl 7.6 6.5 - 8.5 g/dL [facility] Albumin 1.9(L) 3.5 - 5.0 g/dL [facility] Alk phos 86 40 - 130 Units/L [facility] ALT 14 7 - 45 Units/L [facility] AST 39 10 - 45 Units/L [facility] Blood 08/23/2024 8:55 PM CDT 08/23/2024 9:41 PM CDT us Valerie Cooper MD PhD LAB BLOOD ORDERABLES Final Result [facility] Department [place] [address] * POCT glucose (08/23/2024 8:21 PM CDT) Pathologist [facility] Glucose, POC 85 70 - 199 mg/dL Blood 08/23/2024 8:21 PM CDT 08/23/2024 8:21 PM CDT Jone Vann MD LAB POCT ORDERABLES - DEVICE Final Result Performing Organization Address [facility] [place] [address] * POCT glucose (08/23/2024 5:55 PM CDT) Pathologist [facility] Glucose, POC 87 70 - 199 mg/dL Blood 08/23/2024 5:55 PM CDT 08/23/2024 5:55 PM CDT Jone Vann MD LAB POCT ORDERABLES - DEVICE Final Result Performing Organization Address [facility] de Phone Number [facility] [place] [address] * IR Tunneled Line Placement > 5 Years (08/23/2024 1:37 PM CDT) Anatomical Region Laterality Modality Body N/A Ultrasound 08/23/2024 3:15 PM CDT Impressions 08/28/2024 9:03 AM CDT Successful tunneled dialysis catheter and tunneled power line placement via the right internal jugular vein. PLAN: The catheter is ready for immediate use. When treatment is completed, removal can be scheduled by calling [facility] - [phone] [facility] - [phone] Dictated by: Betzaida Owusu M.D. The radiology [...] was obtained. Prior to beginning the procedure, [place] Protocol was used to confirm the patient's [...] was obtained. Prior to beginning the procedure, [place] Protocol was used to confirm the patient's [...] completed, removal can be scheduled by calling [facility] - [phone] [facility] - [phone] Dictated by: Betzaida Owusu M.D. The radiology attending physician has personally reviewed this study, and had reviewed and/or edited this written report and agrees with it. Electronically signed by: Royal Salinas M.D. us Jone Vann MD IMG IR PROCEDURES Final Resu lt * POCT glucose (08/23/2024 10:36 AM CDT) [facility] Glucose, POC 156 70 - 199 mg/dL Blood 08/23/2024 10:3 6 AM CDT 08/23/2024 10:36 AM CDT Jone Vann MD LAB POCT ORDERABLES - DEVICE Final Result [facility] [place] [address] * (ABNORMAL) POCT glucose (08/23/2024 10:01 AM CDT) Glucose, POC 67(L) 70 - 199 mg/dL Blood 08/23/2024 10:0 1 AM CDT 08/23/2024 10:01 AM CDT Jone Vann MD LAB POCT ORDERABLES - DEVICE Final Result Performing Organization Address [facility] Co de Phone Number [facility] Department [place] [address] * Blood culture Blood (08/23/2024 5:23 AM CDT) Report Final Report: No growth Blood 08/23/2024 5:23 AM CDT 08/23/2024 6:05 AM CDT Narrative [facility] - 08/27/2024 7:00 AM CDT Collection->Peripheral 1. [...] performance characteristics have been verified by the [facility] Microbiology Laboratory. For questions about this culture, contact the Microbiology Laboratory at [phone]. Interpretive data was last revised on 24. Hina Poon MD LAB MICROBIOLOGY - GENERAL O RDERABLES Final Result Performing Organization Address [facility] Co de Phone Number [facility] [place] [address] * POCT glucose (08/23/2024 4:01 AM CDT) Glucose, POC 121 70 - 199 mg/dL Blood 08/23/2024 4:01 AM CDT 08/23/2024 4:01 AM CDT Jone Vann MD LAB POCT ORDERABLES - DEVICE Final Result Performing Organization Address [facility] de Phone Number [facility] [place] [address] * (ABNORMAL) POCT glucose (08/23/2024 3:14 AM CDT) Glucose, POC 62(L) 70 - 199 mg/dL Blood 08/23/2024 3:14 AM CDT 08/23/2024 3:14 AM CDT Jone Vann MD LAB POCT ORDERABLES - DEVICE Final Result Performing Organization Address [facility] [place] [address] * XR Chest 1 View (08/23/2024 1:26 [...] it. Electronically signed by: Gwendolyn Galdamez M.D. Jone Vann MD IMG XR PROCEDURES Final Resu lt * (ABNORMAL) eGFR (08/22/2024 11:35 PM CDT) [facility] eGFR 14(L) >=60 mL/min/1. 73 m2 Comment: [...] MD PhD LAB BLOOD ORDERABLES Final Result [facility] [place] [address] * (ABNORMAL) Comprehensive metabolic panel (08/22/2024 11:35 PM CDT) Sodium 136 135 - 145 mmol/L Potassium, pl 4.3 3.3 - 4.9 mmol/L [facility] Chloride 99 97 - 110 mmol/L [facility] CO2 30 22 - 32 mmol/L [facility] Anion gap 7 2 - 15 mmol/L [facility] BUN 14 6 - 25 mg/dL [facility] Creatinine 4.20(H) 0.60 - 1.10 mg/dL [facility] Glucose 64(L) 70 - 199 mg/dL [facility] Comment: Interpretive Data Fasting glucose >/= 126 [...] 2022. Calcium 8.2(L) 8.5 - 10.3 mg/dL [facility] Bilirubin, total 0.4 0.1 - 1.2 mg/dL [facility] Protein, pl 7.6 6.5 - 8.5 g/dL [facility] Albumin 1.9(L) 3.5 - 5.0 g/dL [facility] Alk phos 91 40 - 130 Units/L [facility] ALT 6(L) 7 - 45 Units/L [facility] AST 23 10 - 45 Units/L [facility] Blood 08/22/2024 11:3 5 PM CDT 08/23/2024 12:46 AM CDT us Valerie Cooper MD PhD LAB BLOOD ORDERABLES Final Result Performing Organization Address City/[facility]/ZIP Co de Phone Number [facility] [place] [address] * POCT glucose (08/22/2024 8:48 PM CDT) Glucose, POC 90 70 - 199 mg/dL Blood 08/22/2024 8:48 PM CDT 08/22/2024 8:48 PM CDT Jone Vann MD LAB POCT ORDERABLES - DEVICE Final Result Performing Organization Address [facility] Co de Phone Number [facility] [place] [address] * POCT glucose (08/22/2024 6:38 PM CDT) Glucose, POC 87 70 - 199 mg/dL Blood 08/22/2024 6:38 PM CDT 08/22/2024 6:38 PM CDT Jone Vann MD LAB POCT ORDERABLES - DEVICE Final Result Performing Organization Address [facility] Co de Phone Number [facility] [place] [address] * (ABNORMAL) POCT glucose (08/22/2024 5:31 PM CDT) Glucose, POC 68(L) 70 - 199 mg/dL Comment:Glu2: RN/ Notified Glucose comment 1 Glu2: RN/ Notified ARAMIS PRUITT Blood 08/22/2024 5:31 PM CDT 08/22/2024 5:31 PM CDT Jone Vann MD LAB POCT ORDERABLES - DEVICE Final Result [facility] [place] [address] * POCT glucose (08/22/2024 1:57 PM CDT) Glucose, POC 71 70 - 199 mg/dL Blood 08/22/2024 1:57 PM CDT 08/22/2024 1:57 PM CDT Jone Vann MD LAB POCT ORDERABLES - DEVICE Final Result Performing Organization Address City/[facility] Co de Phone Number [facility] [place] [address] * (ABNORMAL) POCT glucose (08/22/2024 8:07 AM CDT) Glucose, POC 68(L) 70 - 199 mg/dL Comment:Glu2: RN/ Notified Glucose comment 1 Glu2: RN/ Notified ARAMIS PRUITT Blood 08/22/2024 8:07 AM CDT 08/22/2024 8:07 AM CDT Jone Vann MD LAB POCT ORDERABLES - DEVICE Final Result Performing Organization Address City/[facility]/ZIP Co de Phone Number [facility] [place] [address] * (ABNORMAL) POCT glucose (08/22/2024 7:47 AM CDT) Glucose, POC 68(L) 70 - 199 mg/dL Comment:Glu2: RN/MD Notified Glucose comment 1 Glu2: RN/ Notified [facility] Blood 08/22/2024 7:47 AM CDT 08/22/2024 7:47 AM CDT us Jone Vann MD LAB POCT ORDERABLES - DEVICE Final Result Performing Organization Address City/[facility]/ZIP Co de Phone Number [facility] Department [place] [address] * (ABNORMAL) eGFR (08/21/2024 10:24 PM CDT) Pathologist [facility] eGFR 9(L) >=60 mL/min/1. 73 m2 Comment: [...] BLOOD ORDERABLES Final Result Performing Organization Address City/[facility]/ZIP Co de Phone Number [facility] [place] [address] * Folate (08/21/2024 10:24 PM CDT) Folic acid See Comment >=5.0 ng/mL Comment: Credited; Hemolyzed Specimen Telephone report made to: Rachele Garcia RN on 08/22/2024 06:54:46 CDT by EV . Blood 08/21/2024 10:2 4 PM CDT 08/21/2024 11:33 PM CDT us Jone Vann MD LAB BLOOD ORDERABLES Final R esult [facility] [place] [address] * (ABNORMAL) Comprehensive metabolic panel (08/21/2024 10:24 PM CDT) Pathologist [facility] Sodium 137 135 - 145 mmol/L Potassium, pl 5.1(H) 3.3 - 4.9 mmol/L [facility] Chloride 99 97 - 110 mmol/L [facility] CO2 30 22 - 32 mmol/L [facility] Anion gap 8 2 - 15 mmol/L [facility] BUN 24 6 - 25 mg/dL [facility] Creatinine 5.88(H) 0.60 - 1.10 mg/dL [facility] Glucose 74 70 - 199 mg/dL [facility] Comment: Interpretive Data Fasting glucose >/= 126 [...] 2022. Calcium 8.1(L) 8.5 - 10.3 mg/dL [facility] Bilirubin, total 0.3 0.1 - 1.2 mg/dL [facility] Protein, pl 7.7 6.5 - 8.5 g/dL [facility] Albumin 1.8(L) 3.5 - 5.0 g/dL [facility] Alk phos 91 40 - 130 Units/L [facility] ALT 7 7 - 45 Units/L [facility] AST 22 10 - 45 Units/L [facility] Blood 08/21/2024 10:2 4 PM CDT 08/21/2024 11:33 PM CDT us Valerie Cooper MD PhD LAB BLOOD ORDERABLES Final Result Performing Organization Address City/[facility]/ZIP Co de Phone Number [facility] Department [place] [address] * Infection Prevention Helen auris PCR, surveillance Axilla/Groin (08/21/2024 7:46 PM CDT) [facility] Helen auris DNA Not Detected Not Detected [facility] Comment: Interpretive Data Testing performed by [facility] Molecular Infectious Disease Laboratory using the Noa pramod 6800 Helen auris assay. This assay detects DNA from Helen auris using Real-Time PCR. This assay is laboratory developed and is not cleared by the [facility] Food and Drug Administration. The performance characteristics have been verified by the [facility] Molecular Infectious Disease Laboratory. Axilla/Groin 08/21/2024 7:46 PM CDT 08/21/2024 8:40 PM CDT Narrative [facility] - 08/22/2024 12:51 PM CDT Order placed by [facility] due to ring surveillance. us Instant Order Generic Provider LAB MICROBIOLOGY - GENERAL ORDERABLES Final Result Performing Organization Address City/[facility]/ZIP Co de Phone Number [facility] Department [place] [address] [facility] * POCT glucose (08/21/2024 6:32 PM CDT) [facility] Glucose, POC 110 70 - 199 mg/dL Blood 08/21/2024 6:32 PM CDT 08/21/2024 6:32 PM CDT Jone Vann MD LAB POCT ORDERABLES - DEVICE Final Result Performing Organization Address City/[facility] Co de Phone Number [facility] Department [place] [address] * (ABNORMAL) POCT glucose (08/21/2024 5:44 PM CDT) Pathologist [facility] Glucose, POC 62(L) 70 - 199 mg/dL Blood 08/21/2024 5:44 PM CDT 08/21/2024 5:44 PM CDT Jone Vann MD LAB POCT ORDERABLES - DEVICE Final Result Performing Organization Address [facility] Phone Number [facility] [place] [address] * XR Chest 1 Vw (08/21/2024 4:30 [...] it. Electronically signed by: Vito Celestin M.D. us Sarita Chong DNP IMG XR PROCEDURES Final Result * Cell [...] 4:14 PM CDT 08/21/2024 5:49 PM CDT us Sarita Chong DNP LAB BODY FLUIDS AND STO OLS ORDERABLES Final Result ARAMIS YING [facility] Department [place] [address] * Cell count w/rflx diff, body fluid (08/21/2024 4:14 PM CDT) Specimen type, fld Pleural Body site, fld Pleural fluid, left CERNER [facility] Color, fld Yellow [facility] Clarity, fld Clear Clear [facility] Nucleated cells, fld 402 /cumm [facility] Comment: Interpretive Data Unless otherwise specified, the reference range and other method performance specifications have not been established for CSF/Body Fluid tests. The test results should be integrated into the clinical context for interpretation. Current interpretive data was last revised on 2018. RBC, fld 2,114 /cumm [facility] Fluid 08/21/2024 4:14 PM CDT 08/21/2024 5:[address] [facility] LAB BODY FLUIDS AND STO OLS ORDERABLES Final Result Performing Organization Address [facility]/[place] [address] * Mycology (fungal) culture and stain Pleural fluid Chest, left (08/21/2024 4:14 PM CDT) Direct Specimen Exam Stain: No Fungal elements seen. Report Final Report: No growth of fungus [facility] Pleural fluid (Chest, left) 08/21/2024 4:14 PM CDT 08/21/2024 5:57 PM CDT Narrative [facility] - 09/18/2024 9:55 AM CDT Fluid specimen received. Testing performed by [facility] Microbiology Laboratory ([phone]). Sarita Chong DNP LAB MICROBIOLOGY - GENE RAL ORDERABLES Final Result Performing Organization Address City/[facility]/ZIP Co de Phone Number [facility] Department [place] [address] * Aerobic and anaerobic culture and gram stain Pleural fluid Chest, left (08/21/2024 4:14 PM CDT) Direct Specimen Exam Stain: Cytospin Gram stain shows: Few polymorphonuclear leukocytes seen. Other cellular material present. No organisms seen. Report Final Report: No growth ARAMIS [facility] Pleural fluid (Chest, left) 08/21/2024 4:14 PM CDT 08/21/2024 5:56 PM CDT Narrative [facility] - 08/28/2024 2:38 PM CDT Fluid specimen received. Testing performed by [facility] Microbiology Laboratory ([phone]) Specimens submitted from normally sterile body sites [...] was last revised on 2019. Sarita Chong [facility] LAB MICROBIOLOGY - GENE RAL ORDERABLES Final Result [facility] [place] [address] * Protein, body fluid (08/21/2024 4:14 PM CDT) Specimen type, fld Pleural Body site, fld Pleural fluid, left ARAMIS [facility] Protein, fld 4.4 g/dL ARAMIS [facility] Comment: The above specimen type is not [...] CDT 08/21/2024 5:[address]ita Chong [facility] LAB BODY FLUIDS AND STO OLS ORDERABLES Final Result Performing Organization Address [facility] Co de Phone Number [facility] [place] [address] * Lactate dehydrogenase, body fluid (08/21/2024 4:14 PM CDT) Specimen type, fld Pleural Body site, fld Pleural fluid, left [facility] LD, fld 182 Units/L [facility] Comment: The above specimen type is [...] 4:14 PM CDT 08/21/2024 5:43 PM CDT us Sarita Chong [facility] LAB BODY FLUIDS AND STO OLS ORDERABLES Final Result Performing Organization Address [facility]/ZIP Co de Phone Number ARAMIS [facility] [place] [address] * Glucose, body fluid (08/21/2024 4:14 PM CDT) Specimen type, fld Pleural Body site, fld Pleural fluid, left [facility] Glucose, fld 78 mg/dL [facility] Comment: The above specimen type is [...] and Management. Jonah Clin J Med 2005;72:854-72. [employer] Test directory, Body Fluid Reference Intervals and/or Interpretative Information. [email or web address] Himanshu TIJERINA et al. Pancreatic cyst fluid glucose: rapid, inexpensive, and accurate diagnosis of mucinous pancreatic cysts. Surgery 2018;163:600-5. Ribpatricia DG et al. Differential diagnosis of pancreatic cysts: A prospective study on the role of intra-cystic glucose concentration. Digestive Liver Dis 2020;52:1026-32. Current Interpretive Data was last revised 2021. Fluid 08/21/2024 4:14 PM CDT 08/21/2024 5:43 PM CDT Narrative ARAMIS [facility] - 08/21/2024 6:24 PM CDT Body Fluid Type->Pleural us Sarita Chong [facility] LAB BODY FLUIDS AND STO OLS ORDERABLES Final Result [facility] Department [place] [address] * Chest Tube Insertion -Left side (08/21/2024 3:11 PM CDT) Anatomical Region Laterality Modality Other Narrative Procedure Note Sarita Chong DNP - 08/21/2024 3:11 PM CDT [facility] Interventional Pulmonary Patient Name: Tiffany Miller [...] lab results. Electronically signed by Sarita Chong NP-Tana FAREED Bright 08/21/2024 4:08:11 PM Number of Addenda: 0 Note Initiated On: 08/21/2024 3:11 PM Tone Newberry MD IN CLINIC/BEDSIDE ORDERABLES F inal Result * POCT glucose (08/21/2024 8:38 AM CDT) [facility] Glucose, POC 78 70 - 199 mg/dL Blood 08/21/2024 8:38 AM CDT 08/21/2024 8:38 AM CDT Jone Vann MD LAB POCT ORDERABLES - DEVICE Final Result Performing Organization Address City/[facility]/ZIP Co de Phone Number ARAMIS [facility] [place] [address] * Infection Prevention Helen auris PCR, surveillance Axilla/Groin (08/21/2024 1:29 AM CDT) [facility] Helen auris DNA Not Detected Not Detected [facility] Comment: Interpretive Data Testing performed by [facility] Molecular Infectious Disease Laboratory using the Noa pramod 6800 Helen auris assay. This assay detects DNA from Helen auris using Real-Time PCR. This assay is laboratory developed and is not cleared by the [facility] Food and Drug Administration. The performance characteristics have been verified by the [facility] Molecular Infectious Disease Laboratory. Axilla/Groin 08/21/2024 1:29 AM CDT 08/21/2024 4:44 AM CDT Umang Phillips MD LAB MICROBIOLOGY - GENERAL ORDER MARTINEZ Final Result ARAMIS [facility] [place] [address] [facility] * (ABNORMAL) eGFR (08/21/2024 1:29 AM CDT) [facility] eGFR 12(L) >=60 mL/min/1. 73 m2 Comment: [...] MD PhD LAB BLOOD ORDERABLES Final Result [facility] [place] [address] * Type and screen (08/21/2024 1:29 AM CDT) ABO Rh A Positive Marybeth, indirect Negative [facility] Blood 08/21/2024 1:29 AM CDT 08/21/2024 2:32 AM CDT Narrative [facility] - 08/21/2024 3:47 AM CDT Has the patient had Daratumumab or Isatuximab in the past 6 months?->Unknown us Royal Weiss MD LAB BLOOD BANK TEST ORDER MARTINEZ Final Result [facility] [address] * Vitamin B12 (08/21/2024 1:29 AM CDT) Vitamin B12 888 230 - 1,250 pg/mL Blood 08/21/2024 1:29 AM CDT 08/21/2024 2:27 AM CDT us Jone Vann MD LAB BLOOD ORDERABLES Final R esult [facility] [place] [address] * (ABNORMAL) Comprehensive metabolic panel (08/21/2024 1:29 AM CDT) Pathologist [facility] Sodium 137 135 - 145 mmol/L Potassium, pl 4.5 3.3 - 4.9 mmol/L [facility] Chloride 99 97 - 110 mmol/L [facility] CO2 31 22 - 32 mmol/L [facility] Anion gap 7 2 - 15 mmol/L [facility] BUN 18 6 - 25 mg/dL [facility] Creatinine 4.68(H) 0.60 - 1.10 mg/dL [facility] Glucose 113 70 - 199 mg/dL [facility] Comment: Interpretive Data Fasting glucose >/= 126 [...] 2022. Calcium 8.1(L) 8.5 - 10.3 mg/dL [facility] Bilirubin, total 0.3 0.1 - 1.2 mg/dL [facility] Protein, pl 7.5 6.5 - 8.5 g/dL [facility] Albumin 1.8(L) 3.5 - 5.0 g/dL [facility] Alk phos 98 40 - 130 Units/L [facility] ALT 6(L) 7 - 45 Units/L [facility] AST 17 10 - 45 Units/L [facility] Blood 08/21/2024 1:29 AM CDT 08/21/2024 2:27 AM CDT us Valerie Cooper MD PhD LAB BLOOD ORDERABLES Final Result [facility] [place] [address] * TRANSTHORACIC ECHO (TTE) LIMITED/FOLLOW UP W LTD DOPPLER/CF WO CONTRAST (08/20/2024 2:12 PM CDT) Anatomical Region Laterality Modality Ultrasound 08/20/2024 1:44 PM CDT Narrative 08/20/2024 2:55 PM CDT [facility] [place] [address] Transthoracic Echocardiographic Report Patient Name: TIFFANY MILLER T : 1995 (28y 11m) Gender: F Study Date: 08/20/2024 01:44:30 PM Ht(Inch): 67 Wt(Lb): 166.89 BSA: 1.89 [place] Cook: Guadalupe Mohr RDCS Location: [id number] Order Provider: VALERIE COOPER BMI: 26.14 Ref [...] Procedure Note Morgan Gtz MD - 08/20/2024 [facility] [place] [address] Transthoracic Echocardiographic Report Patient Name: TIFFANY MILLER T : 1995 (28y 11m) Gender: F Study Date: 08/20/2024 01:44:30 PM Ht(Inch): 67 Wt(Lb): 166.89 BSA: 1.89 [place] Cook: Guadalupe Mohr RDCS Location: [id number] Order Provider:VALERIE COOPER BMI: 26.14 Ref Provider: [...] it. Electronically signed by: Symone Baldwin M.D. us Valerie Cooper MD PhD IMG MRI PROCEDURES F inal Result * (ABNORMAL) TSH (08/19/2024 5:59 AM CDT) Thyroid Stimulating Hormone 8.29(H) 0.30 - 4.20 mcIUnit/mL Blood 08/19/2024 5:59 AM CDT 08/19/2024 6:47 AM CDT us Valerie Cooper MD PhD LAB BLOOD ORDERABLES Final Result Performing Organization Address City/[facility]/ZIP Co de Phone Number [facility] [place] [address] * (ABNORMAL) T4, free (08/19/2024 5:59 AM CDT) Free T4 0.58(L) 0.90 - 1.70 ng/dL Blood 08/19/2024 5:59 AM CDT 08/19/2024 6:47 AM CDT us Valerie Cooper MD PhD LAB BLOOD ORDERABLES Final Result [facility] [place] [address] * Cortisol (08/19/2024 5:59 AM CDT) Cortisol [...] BLOOD ORDERABLES Final Result Performing Organization Address City/[facility] Co de Phone Number [facility] [place] [address] * POCT glucose (08/19/2024 12:06 AM CDT) Glucose, POC 127 70 - 199 mg/dL Blood 08/19/2024 12:0 6 AM CDT 08/19/2024 12:06 AM CDT Valerie Cooper MD PhD LAB POCT ORDERABLES - DEVICE Final Result Performing Organization Address [facility] de Phone Number [facility] [place] [place] [address] * (ABNORMAL) POCT glucose (08/18/2024 11:07 PM CDT) Glucose, POC 64(L) 70 - 199 mg/dL Blood 08/18/2024 11:0 7 PM CDT 08/18/2024 11:07 PM CDT Valerie Cooper MD PhD LAB POCT ORDERABLES - DEVICE Final Result Performing Organization Address [facility] de Phone Number [facility] [place] [address] * (ABNORMAL) eGFR (08/18/2024 8:13 PM CDT) eGFR 11(L) >=60 mL/min/1. 73 [...] MD PhD LAB BLOOD ORDERABLES Final Result [facility] [place] [address] * (ABNORMAL) Differential, auto (08/18/2024 8:13 PM CDT) Neutrophil abs 8.02(H) 1.50 - 6.50 K/cumm Imm gran abs 0.07 0.00 - 0.10 K/cumm [facility] Lymphocyte abs 1.46 0.80 - 3.30 K/cumm [facility] Monocyte abs 0.91(H) 0.20 - 0.80 K/cumm [facility] Eosinophil abs 0.22 0.00 - 0.50 K/cumm [facility] Basophil abs 0.07 0.00 - 0.10 K/cumm [facility] Neutrophil pct 74.5 % [facility] Comment: Interpretive Data Percent cell count reference ranges are not reported, since discordance with absolute values may lead to misinterpretation of CBC data. Current Interpretive Data was last revised on 2017. Imm gran pct 0.7 % [facility] Comment: Interpretive Data Percent cell count reference ranges are not reported, since discordance with absolute values may lead to misinterpretation of CBC data. Current Interpretive Data was last revised on 2017. Lymphocyte pct 13.6 % [facility] Comment: Interpretive Data Percent cell count reference ranges are not reported, since discordance with absolute values may lead to misinterpretation of CBC data. Current Interpretive Data was last revised on 2017. Monocyte pct 8.5 % [facility] Comment: Interpretive Data Percent cell count reference ranges are not reported, since discordance with absolute values may lead to misinterpretation of CBC data. Current Interpretive Data was last revised on 2017. Eosinophil pct 2.0 % [facility] Comment: Interpretive Data Percent cell count reference ranges are not reported, since discordance with absolute values may lead to misinterpretation of CBC data. Current Interpretive Data was last revised on 2017. Basophil pct 0.7 % [facility] Comment: Interpretive Data Percent cell count reference ranges are not reported, since discordance with absolute values may lead to misinterpretation of CBC data. Current Interpretive Data was last revised on 2017. Blood 08/18/2024 8:13 PM CDT 08/18/2024 8:49 PM CDT us Valerie Cooper MD PhD LAB BLOOD ORDERABLES Final Result [facility] [place] [address] * (ABNORMAL) CBC with auto differential (08/18/2024 8:13 PM CDT) WBC 10.75(H) 3.80 - 9.90 K/cumm Hgb 7.4(L) 11.9 - 15.5 g/dL [facility] Hct 23.4(L) 35.6 - 45.5 % [facility] Plt 357 150 - 400 K/cumm [facility] MPV 9.6 9.1 - 12.3 fL [facility] RBC 2.66(L) 3.90 - 5.20 M/cumm [facility] MCV 88.0 81.3 - 96.4 fL [facility] MCH 27.8 27.1 - 33.3 pg [facility] MCHC 31.6(L) 32.3 - 35.7 g/dL [facility] RDW CV 16.1(H) 11.1 - 14.9 % [facility] RDW SD 51.3(H) 35.7 - 48.1 fL [facility] NRBC abs 0.00 0.00 - 0.01 K/cumm [facility] Blood 08/18/2024 8:13 PM CDT 08/18/2024 8:49 PM CDT us Valerie Cooper MD PhD LAB BLOOD ORDERABLES Final Result Performing Organization Address City/[facility] Co de Phone Number [facility] Department [place] [address] * (ABNORMAL) Erythrocyte sedimentation rate (08/18/2024 8:13 PM CDT) Erythrocyte sedimentation rate 140(H) 1 - 20 mm/hr Blood 08/18/2024 8:13 PM CDT 08/18/2024 8:49 PM CDT us Valerie Cooper MD PhD LAB BLOOD ORDERABLES Final Result Performing Organization Address City/[facility]/ZIP Co de Phone Number [facility] [place] [address] * (ABNORMAL) Reticulocyte Count (08/18/2024 8:13 PM CDT) Retics, absolute 42 20 - 87 K/cumm Retics 1.6 0.4 - 2.9 % [facility] Reticulocyte Hgb 25.2(L) 30.5 - 38.0 pg [facility] Blood 08/18/2024 8:1 3 PM CDT 08/18/2024 8:49 PM CDT Valerie Cooper MD PhD LAB BLOOD ORDERABLES Final Result Performing Organization Address [facility] Co de Phone Number [facility] [place] [address] * (ABNORMAL) CRP (acute phase) (08/18/2024 8:13 PM CDT) CRP 268.2(H) <=10.0 mg/L Blood 08/18/2024 8:13 PM CDT 08/18/2024 8:49 PM CDT Valerie Cooper MD PhD LAB BLOOD ORDERABLES Edited Result - Final Performing Organization Address [facility] Phone Number [facility] [place] [address] * Magnesium (08/18/2024 8:13 PM CDT) Magnesium 2.0 1.4 - 2.5 mg/dL Blood 08/18/2024 8:13 PM CDT 08/18/2024 8:49 PM CDT Valerie Cooper MD PhD LAB BLOOD ORDERABLES Final Result Performing Organization Address [facility] de Phone Number [facility] [place] [address] * Creatine kinase (CK), total (08/18/2024 8:13 PM CDT) CK 69 30 - 200 Units/L Comment:Reviewed Blood 08/18/2024 8:13 PM CDT 08/18/2024 8:49 PM CDT Royal Weiss MD LAB BLOOD ORDERABLES Florinda l Result Performing Organization Address [facility]/State/ZIP Co de Phone Number [facility] [place] [address] * (ABNORMAL) Comprehensive metabolic panel (08/18/2024 8:13 PM CDT) Sodium 133(L) 135 - 145 mmol/L Potassium, pl 4.6 3.3 - 4.9 mmol/L [facility] Chloride 97 97 - 110 mmol/L [facility] CO2 29 22 - 32 mmol/L [facility] Anion gap 7 2 - 15 mmol/L [facility] BUN 23 6 - 25 mg/dL [facility] Creatinine 5.22(H) 0.60 - 1.10 mg/dL [facility] Glucose 57(L) 70 - 199 mg/dL [facility] Comment: Interpretive Data Fasting glucose >/= 126 [...] 2022. Calcium 8.4(L) 8.5 - 10.3 mg/dL [facility] Bilirubin, total 0.4 0.1 - 1.2 mg/dL [facility] Protein, pl 7.6 6.5 - 8.5 g/dL [facility] Albumin 1.7(L) 3.5 - 5.0 g/dL [facility] Alk phos 98 40 - 130 Units/L [facility] ALT 6(L) 7 - 45 Units/L [facility] AST 23 10 - 45 Units/L [facility] Blood 08/18/2024 8:13 PM CDT 08/18/2024 8:49 PM CDT us Valerie Cooper MD PhD LAB BLOOD ORDERABLES Final Result [facility] [place] [address] * CT Thoracic and Lumbar Spine WO [...] it. Electronically signed by: Calos Weeks M.D. us Valerie Cooper MD PhD IMG [...] PhD LAB BLOOD ORDERABLES Final Result [facility] Department [place] [address] * (ABNORMAL) Differential, auto (08/17/2024 4:44 PM CDT) Neutrophil abs 8.66(H) 1.50 - 6.50 K/cumm Imm gran abs 0.10 0.00 - 0.10 K/cumm [facility] Lymphocyte abs 1.36 0.80 - 3.30 K/cumm [facility] Monocyte abs 0.77 0.20 - 0.80 K/cumm [facility] Eosinophil abs 0.14 0.00 - 0.50 K/cumm [facility] Basophil abs 0.07 0.00 - 0.10 K/cumm [facility] Neutrophil pct 78.0 % [facility] Comment: Interpretive Data Percent cell count reference ranges are not reported, since discordance with absolute values may lead to misinterpretation of CBC data. Current Interpretive Data was last revised on 2017. Imm gran pct 0.9 % [facility] Comment: Interpretive Data Percent cell count reference ranges are not reported, since discordance with absolute values may lead to misinterpretation of CBC data. Current Interpretive Data was last revised on 2017. Lymphocyte pct 12.3 % [facility] Comment: Interpretive Data Percent cell count reference ranges are not reported, since discordance with absolute values may lead to misinterpretation of CBC data. Current Interpretive Data was last revised on 2017. Monocyte pct 6.9 % [facility] Comment: Interpretive Data Percent cell count reference ranges are not reported, since discordance with absolute values may lead to misinterpretation of CBC data. Current Interpretive Data was last revised on 2017. Eosinophil pct 1.3 % [facility] Comment: Interpretive Data Percent cell count reference ranges are not reported, since discordance with absolute values may lead to misinterpretation of CBC data. Current Interpretive Data was last revised on 2017. Basophil pct 0.6 % [facility] Comment: Interpretive Data Percent cell count reference ranges are not reported, since discordance with absolute values may lead to misinterpretation of CBC data. Current Interpretive Data was last revised on 2017. Blood 08/17/2024 4:44 PM CDT 08/17/2024 5:04 PM CDT us Valerie Cooper MD PhD LAB BLOOD ORDERABLES Final Result [facility] [place] [address] * (ABNORMAL) CBC with auto differential (08/17/2024 4:44 PM CDT) [facility] WBC 11.10(H) 3.80 - 9.90 K/cumm Hgb 7.9(L) 11.9 - 15.5 g/dL [facility] Hct 24.3(L) 35.6 - 45.5 % [facility] Plt 367 150 - 400 K/cumm [facility] MPV 9.5 9.1 - 12.3 fL [facility] RBC 2.87(L) 3.90 - 5.20 M/cumm [facility] MCV 84.7 81.3 - 96.4 fL [facility] MCH 27.5 27.1 - 33.3 pg [facility] MCHC 32.5 32.3 - 35.7 g/dL [facility] RDW CV 16.2(H) 11.1 - 14.9 % [facility] RDW SD 50.2(H) 35.7 - 48.1 fL [facility] NRBC abs 0.00 0.00 - 0.01 K/cumm [facility] Blood 08/17/2024 4:44 PM CDT 08/17/2024 5:04 PM CDT us Valerie Cooper MD PhD LAB BLOOD ORDERABLES Final Result [facility] Department [place] [address] * Hepatitis B core antibody, total Blood (08/17/2024 4:44 PM CDT) [facility] Hep B core IgG/IgM Nonreactive Nonreactive Blood 08/17/2024 4:44 PM CDT 08/17/2024 5:06 PM CDT Valerie Cooper MD PhD LAB MICROBIOLOGY - G ENERAL ORDERABLES Final Result [facility] [place] [address] * Hepatitis B surface antibody (immune status) Blood (08/17/2024 4:44 PM CDT) Pathologist [facility] HBsAb (immune status) Reactive Comment:This result is consi stent with immunity to Hepatitis B Virus when used in the setting of routine screening. Current interpretive data was last revised on 21 HBsAb (immune status) index 117.0 mIUnits/m L [facility] Blood 08/17/2024 4:44 PM CDT 08/17/2024 5:06 PM CDT Valerie Cooper MD PhD LAB MICROBIOLOGY - G ENERAL ORDERABLES Final Result Performing Organization Address City/[facility] Co de Phone Number [facility] [place] [address] * (ABNORMAL) Reticulocyte Count (08/17/2024 4:44 PM CDT) [facility] Retics, absolute 38 20 - 87 K/cumm Retics 1.4 0.4 - 2.9 % [facility] Reticulocyte Hgb 25.0(L) 30.5 - 38.0 pg [facility] Blood 08/17/2024 4:44 PM CDT 08/17/2024 5:04 PM CDT us Valerie Cooper MD PhD LAB BLOOD ORDERABLES Final Result [place], [place] [id number] * Type and screen (08/17/2024 4:44 PM CDT) [facility] ABO Rh A Positive Marybeth, indirect Negative [facility] Blood 08/17/2024 4:44 PM CDT 08/17/2024 4:57 PM CDT Narrative [facility] - 08/17/2024 6:00 PM CDT Has the patient had Daratumumab or Isatuximab in the past 6 months?->Unknown Royal Weiss MD LAB BLOOD BANK TEST ORDER MARTINEZ Final Result [facility] [place] [address] * (ABNORMAL) Comprehensive metabolic panel (08/17/2024 4:44 PM CDT) Sodium 133(L) 135 - 145 mmol/L Potassium, pl 4.2 3.3 - 4.9 mmol/L [facility] Chloride 96(L) 97 - 110 mmol/L [facility] CO2 30 22 - 32 mmol/L [facility] Anion gap 7 2 - 15 mmol/L [facility] BUN 22 6 - 25 mg/dL [facility] Creatinine 3.80(H) 0.60 - 1.10 mg/dL [facility] Glucose 71 70 - 199 mg/dL [facility] Comment: Interpretive Data Fasting glucose >/= 126 [...] 2022. Calcium 8.0(L) 8.5 - 10.3 mg/dL [facility] Bilirubin, total 0.4 0.1 - 1.2 mg/dL [facility] Protein, pl 7.7 6.5 - 8.5 g/dL [facility] Albumin 1.9(L) 3.5 - 5.0 g/dL [facility] Alk phos 102 40 - 130 Units/L [facility] ALT 5(L) 7 - 45 Units/L [facility] AST 24 10 - 45 Units/L [facility] Blood 08/17/2024 4:44 PM CDT 08/17/2024 5:04 PM CDT Valerie Cooper MD PhD LAB BLOOD ORDERABLES Final Result Performing Organization Address [facility]/ZIP Co de Phone Number [facility] [place] [address] * Blood culture Blood (08/17/2024 3:03 PM CDT) Report Final Report: No growth Blood 08/17/2024 3:03 PM CDT 08/17/2024 3:47 PM CDT Narrative [facility] - 08/21/2024 4:00 PM CDT Draw in [...] performance characteristics have been verified by the [facility] Microbiology Laboratory. For questions about this culture, contact the Microbiology Laboratory at [phone]. Interpretive data was last revised on 24. Valerie Cooper MD PhD LAB MICROBIOLOGY - G ENERAL ORDERABLES Final Result Performing Organization Address City/[facility]/ZIP Co de Phone Number [facility] [place] [address] * Infection Prevention Helen auris PCR, surveillance Axilla/Groin (08/17/2024 11:33 AM CDT) Helen auris DNA Invalid Not Detected [facility] Comment: Unable to analyze due to the possible presence of inhibitory substances. Recommend submission of a second separately collected sample if clinically indicated. Interpretive Data Testing performed by [facility] Molecular Infectious Disease Laboratory using the Noa pramod 6800 Helen auris assay. This assay detects DNA from Helen auris using Real-Time PCR. This assay is laboratory developed and is not cleared by the [place] Food and Drug Administration. The performance characteristics have been verified by the [facility] Molecular Infectious Disease Laboratory. Axilla/Groin 08/17/2024 11:3 3 AM CDT 08/17/2024 12:58 PM CDT Umang Phillips MD LAB MICROBIOLOGY - GENERAL ORDER MARTINEZ Final Result [facility] [place] [address] [facility] * XR Chest 1 View (08/17/2024 11:23 [...] it. Electronically signed by: Vito Celestin M.D. us Valerie Cooper MD PhD IMG XR PROCEDURES [...] MD PhD LAB BLOOD ORDERABLES Final Result [facility] [place] [address] * (ABNORMAL) Differential, auto (08/16/2024 8:17 PM CDT) Neutrophil abs 6.45 1.50 - 6.50 K/cumm Imm gran abs 0.12(H) 0.00 - 0.10 K/cumm [facility] Lymphocyte abs 1.62 0.80 - 3.30 K/cumm [facility] Monocyte abs 0.84(H) 0.20 - 0.80 K/cumm [facility] Eosinophil abs 0.19 0.00 - 0.50 K/cumm [facility] Basophil abs 0.07 0.00 - 0.10 K/cumm [facility] Neutrophil pct 69.5 % [facility] Comment: Interpretive Data Percent cell count reference ranges are not reported, since discordance with absolute values may lead to misinterpretation of CBC data. Current Interpretive Data was last revised on 2017. Imm gran pct 1.3 % [facility] Comment: Interpretive Data Percent cell count reference ranges are not reported, since discordance with absolute values may lead to misinterpretation of CBC data. Current Interpretive Data was last revised on 2017. Lymphocyte pct 17.4 % [facility] Comment: Interpretive Data Percent cell count reference ranges are not reported, since discordance with absolute values may lead to misinterpretation of CBC data. Current Interpretive Data was last revised on 2017. Monocyte pct 9.0 % [facility] Comment: Interpretive Data Percent cell count reference ranges are not reported, since discordance with absolute values may lead to misinterpretation of CBC data. Current Interpretive Data was last revised on 2017. Eosinophil pct 2.0 % [facility] Comment: Interpretive Data Percent cell count reference ranges are not reported, since discordance with absolute values may lead to misinterpretation of CBC data. Current Interpretive Data was last revised on 2017. Basophil pct 0.8 % [facility] Comment: Interpretive Data Percent cell count reference ranges are not reported, since discordance with absolute values may lead to misinterpretation of CBC data. Current Interpretive Data was last revised on 2017. Blood 08/16/2024 8:17 PM CDT 08/16/2024 8:51 PM CDT us Valerie Cooper MD PhD LAB BLOOD ORDERABLES Final Result [facility] [place] [address] * (ABNORMAL) CBC with auto differential (08/16/2024 8:17 PM CDT) WBC 9.29 3.80 - 9.90 K/cumm Hgb 7.4(L) 11.9 - 15.5 g/dL [facility] Hct 23.3(L) 35.6 - 45.5 % [facility] Plt 321 150 - 400 K/cumm [facility] MPV 10.0 9.1 - 12.3 fL [facility] RBC 2.69(L) 3.90 - 5.20 M/cumm [facility] MCV 86.6 81.3 - 96.4 fL [facility] MCH 27.5 27.1 - 33.3 pg [facility] MCHC 31.8(L) 32.3 - 35.7 g/dL [facility] RDW CV 16.7(H) 11.1 - 14.9 % [facility] RDW SD 52.4(H) 35.7 - 48.1 fL [facility] NRBC abs 0.00 0.00 - 0.01 K/cumm [facility] Blood 08/16/2024 8:17 PM CDT 08/16/2024 8:51 PM CDT Valerie Cooper MD PhD LAB BLOOD ORDERABLES Final Result Performing Organization Address City/[facility]/ZIP Co de Phone Number [facility] [place] [address] * (ABNORMAL) Reticulocyte Count (08/16/2024 8:17 PM CDT) Pathologist [facility] Retics, absolute 46 20 - 87 K/cumm Retics 1.7 0.4 - 2.9 % [facility] Reticulocyte Hgb 24.7(L) 30.5 - 38.0 pg [facility] Blood 08/16/2024 8:17 PM CDT 08/16/2024 8:51 PM CDT Valerie Cooper MD PhD LAB BLOOD ORDERABLES Final Result Performing Organization Address [facility] Co de Phone Number [facility] [place] [address] * (ABNORMAL) Comprehensive metabolic panel (08/16/2024 8:17 PM CDT) [facility] Sodium 137 135 - 145 mmol/L Potassium, pl 5.1(H) 3.3 - 4.9 mmol/L [facility] Chloride 98 97 - 110 mmol/L [facility] CO2 29 22 - 32 mmol/L [facility] Anion gap 10 2 - 15 mmol/L [facility] BUN 39(H) 6 - 25 mg/dL [facility] Creatinine 5.74(H) 0.60 - 1.10 mg/dL [facility] Glucose 72 70 - 199 mg/dL [facility] Comment: Interpretive Data Fasting glucose >/= 126 [...] 2022. Calcium 8.1(L) 8.5 - 10.3 mg/dL [facility] Bilirubin, total 0.4 0.1 - 1.2 mg/dL [facility] Protein, pl 7.3 6.5 - 8.5 g/dL [facility] Albumin 1.8(L) 3.5 - 5.0 g/dL [facility] Alk phos 112 40 - 130 Units/L [facility] ALT 6(L) 7 - 45 Units/L [facility] AST 21 10 - 45 Units/L [facility] Blood 08/16/2024 8:17 PM CDT 08/16/2024 8:51 PM CDT us Valerie Cooper MD PhD LAB BLOOD ORDERABLES Final Result Performing Organization Address City/[facility]/ZIP Co de Phone Number [facility] [place] [address] * Transfuse RBC (08/16/2024 3:23 PM CDT) Blood us Valerie Cooper MD PhD BLOOD TRANSFUSION OR DERABLES Final Result Performing Organization Address City/[facility]/ZIP Co de Phone Number [facility] [place] [address] * Prepare RBC: 1 Units (08/16/2024 8:02 AM CDT) Product code [id number] Unit Number [id number] [facility] [facility] Product Blood Type APOS [facility] Dispense Status PRESUMED TRANSFUSED [facility] Blood 08/16/2024 8:02 AM CDT 08/16/2024 8:02 AM CDT Narrative [facility] - 08/17/2024 12:57 AM CDT Are special requirements needed? (All products are leukoreduced and CMV- safe)- >No Date required:-[id number] [facility] # of [id number] Reasons:-Hgb <7 g/dL} Valerie Cooper MD PhD BLOOD BANK PRODUCT O RDERABLES Final Result Performing Organization Address [facility] Co de Phone Number ARAMIS [facility] [place] [address] * (ABNORMAL) eGFR (08/15/2024 9:22 PM CDT) eGFR 13(L) >=60 mL/min/1. 73 m2 Comment: [...] 9:22 PM CDT 08/15/2024 9:51 PM CDT us Valerie Cooper MD PhD LAB BLOOD ORDERABLES Final Result Performing Organization Address [facility]/ZIP Co de Phone Number [facility] [place] [address] * (ABNORMAL) Differential, auto (08/15/2024 9:22 PM CDT) Neutrophil abs 6.15 1.50 - 6.50 K/cumm Imm gran abs 0.11(H) 0.00 - 0.10 K/cumm [facility] Lymphocyte abs 1.37 0.80 - 3.30 K/cumm [facility] Monocyte abs 0.63 0.20 - 0.80 K/cumm [facility] Eosinophil abs 0.14 0.00 - 0.50 K/cumm [facility] Basophil abs 0.04 0.00 - 0.10 K/cumm [facility] Neutrophil pct 72.8 % [facility] Comment: Interpretive Data Percent cell count reference ranges are not reported, since discordance with absolute values may lead to misinterpretation of CBC data. Current Interpretive Data was last revised on 2017. Imm gran pct 1.3 % [facility] Comment: Interpretive Data Percent cell count reference ranges are not reported, since discordance with absolute values may lead to misinterpretation of CBC data. Current Interpretive Data was last revised on 2017. Lymphocyte pct 16.2 % [facility] Comment: Interpretive Data Percent cell count reference ranges are not reported, since discordance with absolute values may lead to misinterpretation of CBC data. Current Interpretive Data was last revised on 2017. Monocyte pct 7.5 % [facility] Comment: Interpretive Data Percent cell count reference ranges are not reported, since discordance with absolute values may lead to misinterpretation of CBC data. Current Interpretive Data was last revised on 2017. Eosinophil pct 1.7 % [facility] Comment: Interpretive Data Percent cell count reference ranges are not reported, since discordance with absolute values may lead to misinterpretation of CBC data. Current Interpretive Data was last revised on 2017. Basophil pct 0.5 % [facility] Comment: Interpretive Data Percent cell count reference ranges are not reported, since discordance with absolute values may lead to misinterpretation of CBC data. Current Interpretive Data was last revised on 2017. Blood 08/15/2024 9:22 PM CDT 08/15/2024 9:52 PM CDT us Valerie Cooper MD PhD LAB BLOOD ORDERABLES Final Result [facility] Department [place] [address] * (ABNORMAL) CBC with auto differential (08/15/2024 9:22 PM CDT) [facility] WBC 8.44 3.80 - 9.90 K/cumm Hgb 6.8(L) 11.9 - 15.5 g/dL [facility] Hct 21.3(L) 35.6 - 45.5 % [facility] Plt 270 150 - 400 K/cumm [facility] MPV 9.9 9.1 - 12.3 fL [facility] RBC 2.48(L) 3.90 - 5.20 M/cumm [facility] MCV 85.9 81.3 - 96.4 fL [facility] MCH 27.4 27.1 - 33.3 pg [facility] MCHC 31.9(L) 32.3 - 35.7 g/dL [facility] RDW CV 17.2(H) 11.1 - 14.9 % [facility] RDW SD 54.1(H) 35.7 - 48.1 fL [facility] NRBC abs 0.00 0.00 - 0.01 K/cumm [facility] Blood 08/15/2024 9:22 PM CDT 08/15/2024 9:52 PM CDT us Valerie Cooper MD PhD LAB BLOOD ORDERABLES Final Result [facility] Department [place] [address] * (ABNORMAL) Reticulocyte Count (08/15/2024 9:22 PM CDT) [facility] Retics, absolute 56 20 - 87 K/cumm Retics 2.3 0.4 - 2.9 % [facility] Reticulocyte Hgb 22.8(L) 30.5 - 38.0 pg [facility] Blood 08/15/2024 9:22 PM CDT 08/15/2024 9:52 PM CDT us Valerie Cooper MD PhD LAB BLOOD ORDERABLES Final Result [facility] Department [place] [address] * (ABNORMAL) Comprehensive metabolic panel (08/15/2024 9:22 PM CDT) Sodium 133(L) 135 - 145 mmol/L Potassium, pl 4.6 3.3 - 4.9 mmol/L [facility] Chloride 96(L) 97 - 110 mmol/L [facility] CO2 32 22 - 32 mmol/L [facility] Anion gap 5 2 - 15 mmol/L [facility] BUN 28(H) 6 - 25 mg/dL [facility] Creatinine 4.40(H) 0.60 - 1.10 mg/dL [facility] Glucose 73 70 - 199 mg/dL [facility] Comment: Interpretive Data Fasting glucose >/= 126 [...] 2022. Calcium 8.0(L) 8.5 - 10.3 mg/dL [facility] Bilirubin, total 0.3 0.1 - 1.2 mg/dL [facility] Protein, pl 7.3 6.5 - 8.5 g/dL [facility] Albumin 1.8(L) 3.5 - 5.0 g/dL [facility] Alk phos 91 40 - 130 Units/L [facility] ALT 6(L) 7 - 45 Units/L [facility] AST 19 10 - 45 Units/L [facility] Blood 08/15/2024 9:22 PM CDT 08/15/2024 9:51 PM CDT Valerie Cooper MD PhD LAB BLOOD ORDERABLES Final Result Performing Organization Address [facility] Co de Phone Number [facility] [place] [place] [address] * POCT glucose (08/15/2024 9:20 PM CDT) Glucose, POC 78 70 - 199 mg/dL Blood 08/15/2024 9:20 PM CDT 08/15/2024 9:20 PM CDT Valerie Cooper MD PhD LAB POCT ORDERABLES - DEVICE Final Result Performing Organization Address [facility] Co de Phone Number [facility] [place] [address] * POCT glucose (08/15/2024 5:54 PM CDT) Glucose, POC 72 70 - 199 mg/dL Blood 08/15/2024 5:54 PM CDT 08/15/2024 5:54 PM CDT Valerie Cooper MD PhD LAB POCT ORDERABLES - DEVICE Final Result Performing Organization Address [facility] Co de Phone Number [facility] [place] [address] * POCT glucose (08/15/2024 1:42 PM CDT) Glucose, POC 106 70 - 199 mg/dL Blood 08/15/2024 1:42 PM CDT 08/15/2024 1:42 PM CDT Valerie Cooper MD PhD LAB POCT ORDERABLES - DEVICE Final Result Performing Organization Address City/[facility] Co de Phone Number [facility] [place] [address] * POCT glucose (08/15/2024 1:20 PM CDT) Glucose, POC 86 70 - 199 mg/dL Blood 08/15/2024 1:20 PM CDT 08/15/2024 1:20 PM CDT Valerie Cooper MD PhD LAB POCT ORDERABLES - DEVICE Final Result Performing Organization Address City/[facility]/[place] [address] * (ABNORMAL) POCT glucose (08/15/2024 1:02 PM CDT) Glucose, POC 64(L) 70 - 199 mg/dL Blood 08/15/2024 1:02 PM CDT 08/15/2024 1:02 PM CDT Valerie Cooper MD PhD LAB POCT ORDERABLES - DEVICE Final Result Performing Organization Address [facility] [place] [address] * (ABNORMAL) POCT glucose (08/15/2024 12:50 PM CDT) Glucose, POC 55(L) 70 - 199 mg/dL Blood 08/15/2024 12:5 0 PM CDT 08/15/2024 12:50 PM CDT Valerie Cooper MD PhD LAB POCT ORDERABLES - DEVICE Final Result Performing Organization Address [facility] [place] [address] * (ABNORMAL) POCT glucose (08/15/2024 12:41 PM CDT) Glucose, POC 56(L) 70 - 199 mg/dL Blood 08/15/2024 12:4 1 PM CDT 08/15/2024 12:41 PM CDT Valerie Cooper MD PhD LAB POCT ORDERABLES - DEVICE Final Result Performing Organization Address City/[facility]/ZIP Co de Phone Number [facility] Department [place] [address] * POCT glucose (08/15/2024 11:16 AM CDT) [facility] Glucose, POC 77 70 - 199 mg/dL Blood 08/15/2024 11:1 6 AM CDT 08/15/2024 11:16 AM CDT Valerie Cooper MD PhD LAB POCT ORDERABLES - DEVICE Final Result Performing Organization Address [facility] Co de Phone Number [facility] Department [place] [address] * Blood culture Blood (08/15/2024 8:10 AM CDT) [facility] Report Final Report: No growth Blood 08/15/2024 8:10 AM CDT 08/15/2024 8:30 AM CDT Narrative [facility] - 08/19/2024 12:00 PM CDT Collection->Peripheral 1. [...] performance characteristics have been verified by the [facility] Microbiology Laboratory. For questions about this culture, contact the Microbiology Laboratory at [phone]. Interpretive data was last revised on 24. Hina Poon MD LAB MICROBIOLOGY - GENERAL O RDERABLES Final Result Performing Organization Address City/[facility]/[place] [address] * POCT glucose (08/15/2024 6:03 AM CDT) Glucose, POC 138 70 - 199 mg/dL Blood 08/15/2024 6:03 AM CDT 08/15/2024 6:03 AM CDT Result [facility] Valerie Cooper MD PhD LAB POCT ORDERABLES - DEVICE Final Result Performing Organization Address [facility] Co de Phone Number [facility] [place] [address] * (ABNORMAL) Potassium (08/15/2024 5:02 AM CDT) Potassium, pl 6.0(H) 3.3 - 4.9 mmol/L Blood 08/15/2024 5:02 AM CDT 08/15/2024 5:20 AM CDT Narrative [facility] - 08/15/2024 6:04 AM CDT Provider to discontinue after two normal results. Valerie Cooper MD PhD LAB BLOOD ORDERABLES Final Result Performing Organization Address [facility]/ZIP Co de Phone Number [facility] [place] [address] * POCT glucose (08/15/2024 5:01 AM CDT) Glucose, POC 73 70 - 199 mg/dL Blood 08/15/2024 5:01 AM CDT 08/15/2024 5:01 AM CDT Valerie Cooper MD PhD LAB POCT ORDERABLES - DEVICE Final Result Performing Organization Address [facility] Co de Phone Number [facility] [place] [address] * POCT glucose (08/15/2024 2:51 AM CDT) Glucose, POC 123 70 - 199 mg/dL Blood 08/15/2024 2:51 AM CDT 08/15/2024 2:51 AM CDT Valerie Cooper MD PhD LAB POCT ORDERABLES - DEVICE Final Result Performing Organization Address [facility] Co de Phone Number [facility] [place] [address] * POCT glucose (08/15/2024 1:42 AM CDT) Glucose, POC 86 70 - 199 mg/dL Blood 08/15/2024 1:42 AM CDT 08/15/2024 1:42 AM CDT Valerie Cooper MD PhD LAB POCT ORDERABLES - DEVICE Final Result Performing Organization Address [facility] Co de Phone Number [facility] [place] [address] * POCT glucose (08/15/2024 12:49 AM CDT) Glucose, POC 143 70 - 199 mg/dL Blood 08/15/2024 12:4 9 AM CDT 08/15/2024 12:49 AM CDT Valerie Cooper MD PhD LAB POCT ORDERABLES - DEVICE Final Result Performing Organization Address [facility] Co de Phone Number [facility] [place] [address] * POCT glucose (08/14/2024 11:45 PM CDT) Glucose, POC 162 70 - 199 mg/dL Blood 08/14/2024 11:4 5 PM CDT 08/14/2024 11:45 PM CDT Valerie Cooper MD PhD LAB POCT ORDERABLES - DEVICE Final Result Performing Organization Address [facility] de Phone Number [facility] [place] [address] * POCT glucose (08/14/2024 10:32 PM CDT) [facility] Signature Glucose, POC 103 70 - 199 mg/dL Blood 08/14/2024 10:3 2 PM CDT 08/14/2024 10:32 PM CDT Valerie Cooper MD PhD LAB POCT ORDERABLES - DEVICE Final Result Performing Organization Address [facility] de Phone Number [facility] [place] [address] * (ABNORMAL) eGFR (08/14/2024 8:44 PM CDT) Pathologist [facility] eGFR 8(L) >=60 mL/min/1. 73 m2 Comment: [...] MD PhD LAB BLOOD ORDERABLES Final Result [facility] [place] [address] * (ABNORMAL) Differential, auto (08/14/2024 8:44 PM CDT) Neutrophil abs 9.34(H) 1.50 - 6.50 K/cumm Imm gran abs 0.16(H) 0.00 - 0.10 K/cumm [facility] Lymphocyte abs 1.58 0.80 - 3.30 K/cumm [facility] Monocyte abs 0.78 0.20 - 0.80 K/cumm [facility] Eosinophil abs 0.11 0.00 - 0.50 K/cumm [facility] Basophil abs 0.06 0.00 - 0.10 K/cumm [facility] Neutrophil pct 77.7 % [facility] Comment: Interpretive Data Percent cell count reference ranges are not reported, since discordance with absolute values may lead to misinterpretation of CBC data. Current Interpretive Data was last revised on 2017. Imm gran pct 1.3 % [facility] Comment: Interpretive Data Percent cell count reference ranges are not reported, since discordance with absolute values may lead to misinterpretation of CBC data. Current Interpretive Data was last revised on 2017. Lymphocyte pct 13.1 % [facility] Comment: Interpretive Data Percent cell count reference ranges are not reported, since discordance with absolute values may lead to misinterpretation of CBC data. Current Interpretive Data was last revised on 2017. Monocyte pct 6.5 % [facility] Comment: Interpretive Data Percent cell count reference ranges are not reported, since discordance with absolute values may lead to misinterpretation of CBC data. Current Interpretive Data was last revised on 2017. Eosinophil pct 0.9 % [facility] Comment: Interpretive Data Percent cell count reference ranges are not reported, since discordance with absolute values may lead to misinterpretation of CBC data. Current Interpretive Data was last revised on 2017. Basophil pct 0.5 % [facility] Comment: Interpretive Data Percent cell count reference ranges are not reported, since discordance with absolute values may lead to misinterpretation of CBC data. Current Interpretive Data was last revised on 2017. Blood 08/14/2024 8:44 PM CDT 08/14/2024 9:30 PM CDT us Valerie Cooper MD PhD LAB BLOOD ORDERABLES Final Result [facility] [place] [address] * Critical Result Callback Chemistry (08/14/2024 8:44 PM CDT) Date Notified [id number] Time Notified [id number] [facility] TestName Potassium Plas ARAMIS [facility] Called/Read Back Aniket [facility] Credentials RN ARAMIS PRUITT Called By SB ARAMIS [facility] Blood 08/14/2024 8:44 PM CDT 08/14/2024 9:32 PM CDT us Valerie Cooper MD PhD LAB BLOOD ORDERABLES Final Result [facility] [place] [address] * (ABNORMAL) Iron profile w/ IBC (08/14/2024 8:44 PM CDT) Pathologist [facility] Iron 12(L) 35 - 145 mcg/dL TIBC 127(L) 250 - 400 mcg/dL [facility] Transferrin saturation 9(L) 20 - 50 % [facility] Blood 08/14/2024 8:44 PM CDT 08/14/2024 9:32 PM CDT us Valerie Cooper MD PhD LAB BLOOD ORDERABLES Final Result [facility] [place] [address] * (ABNORMAL) CBC with auto differential (08/14/2024 8:44 PM CDT) [facility] WBC 12.03(H) 3.80 - 9.90 K/cumm Hgb 7.3(L) 11.9 - 15.5 g/dL [facility] Hct 22.3(L) 35.6 - 45.5 % [facility] Plt 276 150 - 400 K/cumm [facility] MPV 9.9 9.1 - 12.3 fL [facility] RBC 2.59(L) 3.90 - 5.20 M/cumm [facility] MCV 86.1 81.3 - 96.4 fL [facility] MCH 28.2 27.1 - 33.3 pg [facility] MCHC 32.7 32.3 - 35.7 g/dL [facility] RDW CV 17.6(H) 11.1 - 14.9 % [facility] RDW SD 55.2(H) 35.7 - 48.1 fL [facility] NRBC abs 0.00 0.00 - 0.01 K/cumm [facility] Blood 08/14/2024 8:44 PM CDT 08/14/2024 9:30 PM CDT us Valerie Cooper MD PhD LAB BLOOD ORDERABLES Final Result [facility] [place] [address] * (ABNORMAL) Reticulocyte Count (08/14/2024 8:44 PM CDT) [facility] Retics, absolute 63 20 - 87 K/cumm Retics 2.4 0.4 - 2.9 % [facility] Reticulocyte Hgb 24.0(L) 30.5 - 38.0 pg [facility] Blood 08/14/2024 8:44 PM CDT 08/14/2024 9:30 PM CDT us Valerie Cooper MD PhD LAB BLOOD ORDERABLES Final Result Performing Organization Address [facility] [place] [address] * Type and screen (08/14/2024 8:44 PM CDT) [facility] ABO Rh A Positive Marybeth, indirect Negative [facility] Blood 08/14/2024 8:44 PM CDT 08/14/2024 10:10 PM CDT Narrative [facility] - 08/14/2024 11:14 PM CDT Has the patient had Daratumumab or Isatuximab in the past 6 months?->Unknown us Royal Weiss MD LAB BLOOD BANK TEST ORDER MARTINEZ Final Result Performing Organization Address City/[facility]/ZIP Co de Phone Number [place], [place] [id number] * (ABNORMAL) Comprehensive metabolic panel (08/14/2024 8:44 PM CDT) [facility] Sodium 132(L) 135 - 145 mmol/L Potassium, pl 6.4(C) 3.3 - 4.9 mmol/L [facility] Chloride 96(L) 97 - 110 mmol/L [facility] CO2 25 22 - 32 mmol/L [facility] Anion gap 11 2 - 15 mmol/L [facility] BUN 50(H) 6 - 25 mg/dL [facility] Creatinine 6.62(H) 0.60 - 1.10 mg/dL [facility] Glucose 97 70 - 199 mg/dL [facility] Comment: Interpretive Data Fasting glucose >/= 126 [...] 2022. Calcium 7.8(L) 8.5 - 10.3 mg/dL [facility] Bilirubin, total 0.4 0.1 - 1.2 mg/dL [facility] Protein, pl 7.7 6.5 - 8.5 g/dL [facility] Albumin 1.8(L) 3.5 - 5.0 g/dL [facility] Alk phos 97 40 - 130 Units/L [facility] ALT 5(L) 7 - 45 Units/L [facility] AST 18 10 - 45 Units/L [facility] Blood 08/14/2024 8:4 4 PM CDT 08/14/2024 9:32 PM CDT us Valerie Cooper MD PhD LAB BLOOD ORDERABLES Final Result [facility] [place] [address] * Transfuse RBC (08/14/2024 4:44 AM CDT) Blood us Royal Gillespie MD BLOOD TRANSFUSION ORDERAB LES Final Result [facility] [place] [address] * Prepare RBC: 1 Units (08/13/2024 11:44 PM CDT) Pathologist [facility] Product code [id number] Unit Number [id number] [facility] Product Blood Type APOS [facility] Dispense Status PRESUMED TRANSFUSED [facility] Blood 08/13/2024 11:4 4 PM CDT 08/13/2024 11:44 PM CDT Narrative [facility] - 08/14/2024 4:00 PM CDT Are special requirements needed? (All products are leukoreduced and CMV- safe)- >No Date required:-[id number] LRRBC # of [id number] Reasons:-Hgb <7 g/dL} Royal Gillespie MD BLOOD BANK PRODUCT ORDERA BLES Final Result [facility] [place] [address] * (ABNORMAL) eGFR (08/13/2024 10:34 PM CDT) [facility] eGFR 11(L) >=60 mL/min/1. 73 m2 Comment: [...] MD LAB BLOOD ORDERABLES Florinda hanson Result [facility] [place] [address] * (ABNORMAL) Differential, auto (08/13/2024 10:34 PM CDT) Neutrophil abs 9.53(H) 1.50 - 6.50 K/cumm Imm gran abs 0.22(H) 0.00 - 0.10 K/cumm [facility] Lymphocyte abs 1.86 0.80 - 3.30 K/cumm [facility] Monocyte abs 0.79 0.20 - 0.80 K/cumm [facility] Eosinophil abs 0.11 0.00 - 0.50 K/cumm [facility] Basophil abs 0.06 0.00 - 0.10 K/cumm [facility] Neutrophil pct 75.7 % [facility] Comment: Interpretive Data Percent cell count reference ranges are not reported, since discordance with absolute values may lead to misinterpretation of CBC data. Current Interpretive Data was last revised on 2017. Imm gran pct 1.8 % [facility] Comment: Interpretive Data Percent cell count reference ranges are not reported, since discordance with absolute values may lead to misinterpretation of CBC data. Current Interpretive Data was last revised on 2017. Lymphocyte pct 14.8 % [facility] Comment: Interpretive Data Percent cell count reference ranges are not reported, since discordance with absolute values may lead to misinterpretation of CBC data. Current Interpretive Data was last revised on 2017. Monocyte pct 6.3 % [facility] Comment: Interpretive Data Percent cell count reference ranges are not reported, since discordance with absolute values may lead to misinterpretation of CBC data. Current Interpretive Data was last revised on 2017. Eosinophil pct 0.9 % [facility] Comment: Interpretive Data Percent cell count reference ranges are not reported, since discordance with absolute values may lead to misinterpretation of CBC data. Current Interpretive Data was last revised on 2017. Basophil pct 0.5 % [facility] Comment: Interpretive Data Percent cell count reference ranges are not reported, since discordance with absolute values may lead to misinterpretation of CBC data. Current Interpretive Data was last revised on 2017. Blood 08/13/2024 10:3 4 PM CDT 08/13/2024 11:06 PM CDT Royal Gillespie MD LAB BLOOD ORDERABLES Florinda l Result Performing Organization Address City/[facility]/ZIP Co de Phone Number [facility] [place] [address] * (ABNORMAL) Calcium, ionized (08/13/2024 10:34 PM CDT) [facility] Calcium, Ionized 4.39(L) 4.50 - 5.10 mg/dL Blood 08/13/2024 10:3 4 PM CDT 08/13/2024 11:00 PM CDT Royal Gillespie MD LAB BLOOD ORDERABLES Florinda l Result Performing Organization Address City/[facility] Co de Phone Number [facility] [place] [address] * (ABNORMAL) CBC with auto differential (08/13/2024 10:34 PM CDT) [facility] WBC 12.57(H) 3.80 - 9.90 K/cumm Hgb 6.9(L) 11.9 - 15.5 g/dL [facility] Hct 22.0(L) 35.6 - 45.5 % [facility] Plt 301 150 - 400 K/cumm [facility] MPV 9.5 9.1 - 12.3 fL [facility] RBC 2.60(L) 3.90 - 5.20 M/cumm [facility] MCV 84.6 81.3 - 96.4 fL [facility] MCH 26.5(L) 27.1 - 33.3 pg [facility] MCHC 31.4(L) 32.3 - 35.7 g/dL [facility] RDW CV 18.4(H) 11.1 - 14.9 % [facility] RDW SD 56.0(H) 35.7 - 48.1 fL [facility] NRBC abs 0.00 0.00 - 0.01 K/cumm [facility] Blood 08/13/2024 10:3 4 PM CDT 08/13/2024 11:06 PM CDT Royal Gillespie MD LAB BLOOD ORDERABLES Florinda l Result Performing Organization Address City/[facility]/ZIP Co de Phone Number [facility] [place] [address] * (ABNORMAL) Phosphorus (08/13/2024 10:34 PM CDT) [facility] Phosphorus, pl 7.2(H) 2.3 - 4.5 mg/dL Blood 08/13/2024 10:3 4 PM CDT 08/13/2024 11:05 PM CDT Royal Gillespie MD LAB BLOOD ORDERABLES Florinda l Result [facility] [place] [address] * (ABNORMAL) Basic metabolic panel (08/13/2024 10:34 PM CDT) [facility] Sodium 131(L) 135 - 145 mmol/L Potassium, pl 5.4(H) 3.3 - 4.9 mmol/L [facility] Chloride 97 97 - 110 mmol/L [facility] CO2 26 22 - 32 mmol/L [facility] Anion gap 8 2 - 15 mmol/L [facility] BUN 38(H) 6 - 25 mg/dL [facility] Creatinine 5.17(H) 0.60 - 1.10 mg/dL [facility] Glucose 125 70 - 199 mg/dL [facility] Comment: Interpretive Data Fasting glucose >/= 126 [...] 2022. Calcium 7.8(L) 8.5 - 10.3 mg/dL [facility] Blood 08/13/2024 10:3 4 PM CDT 08/13/2024 11:05 PM CDT Royal Gillespie MD LAB BLOOD ORDERABLES Florinda l Result [facility] [place] [address] * POCT glucose (08/13/2024 7:51 PM CDT) Glucose, POC 134 70 - 199 mg/dL Blood 08/13/2024 7:51 PM CDT 08/13/2024 7:51 PM CDT Royal Gillespie MD LAB POCT ORDERABLES - DEV ICE Final Result [facility] [place] [address] * (ABNORMAL) Pre Dialysis BUN (08/13/2024 8:13 AM CDT) BUN Pre 36(H) 6 - 25 mg/dL Blood 08/13/2024 8:13 AM CDT 08/13/2024 8:47 AM CDT us Jaya Cuenca MD LAB BLOOD ORDERABLES F inal Result Performing Organization Address City/[facility]/ZIP Co de Phone Number ARAMIS [facility] [place] [address] * (ABNORMAL) eGFR (08/13/2024 5:16 AM CDT) [...] ORDERABLES Florinda l Result Performing Organization Address City/[facility]/ZIP Co de Phone Number [facility] [place] [address] * (ABNORMAL) Differential, auto (08/13/2024 5:16 AM CDT) Neutrophil abs 9.48(H) 1.50 - 6.50 K/cumm Imm gran abs 0.23(H) 0.00 - 0.10 K/cumm [facility] Lymphocyte abs 1.84 0.80 - 3.30 K/cumm [facility] Monocyte abs 0.91(H) 0.20 - 0.80 K/cumm [facility] Eosinophil abs 0.13 0.00 - 0.50 K/cumm [facility] Basophil abs 0.06 0.00 - 0.10 K/cumm [facility] Neutrophil pct 75.0 % [facility] Comment: Interpretive Data Percent cell count reference ranges are not reported, since discordance with absolute values may lead to misinterpretation of CBC data. Current Interpretive Data was last revised on 2017. Imm gran pct 1.8 % [facility] Comment: Interpretive Data Percent cell count reference ranges are not reported, since discordance with absolute values may lead to misinterpretation of CBC data. Current Interpretive Data was last revised on 2017. Lymphocyte pct 14.5 % [facility] Comment: Interpretive Data Percent cell count reference ranges are not reported, since discordance with absolute values may lead to misinterpretation of CBC data. Current Interpretive Data was last revised on 2017. Monocyte pct 7.2 % [facility] Comment: Interpretive Data Percent cell count reference ranges are not reported, since discordance with absolute values may lead to misinterpretation of CBC data. Current Interpretive Data was last revised on 2017. Eosinophil pct 1.0 % [facility] Comment: Interpretive Data Percent cell count reference ranges are not reported, since discordance with absolute values may lead to misinterpretation of CBC data. Current Interpretive Data was last revised on 2017. Basophil pct 0.5 % [facility] Comment: Interpretive Data Percent cell count reference ranges are not reported, since discordance with absolute values may lead to misinterpretation of CBC data. Current Interpretive Data was last revised on 2017. Blood 08/13/2024 5:16 AM CDT 08/13/2024 7:38 AM CDT us Royal Weiss MD LAB BLOOD ORDERABLES Florinda hanson Result [facility] [place] [address] * (ABNORMAL) Calcium, ionized (08/13/2024 5:16 AM CDT) [facility] Calcium, Ionized 4.13(L) 4.50 - 5.10 mg/dL Blood 08/13/2024 5:16 AM CDT 08/13/2024 7:34 AM CDT us Royal Weiss MD LAB BLOOD ORDERABLES Florinda l Result [facility] [place] [address] * (ABNORMAL) CBC with auto differential (08/13/2024 5:16 AM CDT) [facility] WBC 12.65(H) 3.80 - 9.90 K/cumm Hgb 7.3(L) 11.9 - 15.5 g/dL [facility] Hct 22.7(L) 35.6 - 45.5 % [facility] Plt 265 150 - 400 K/cumm [facility] MPV 9.8 9.1 - 12.3 fL [facility] RBC 2.65(L) 3.90 - 5.20 M/cumm [facility] MCV 85.7 81.3 - 96.4 fL [facility] MCH 27.5 27.1 - 33.3 pg [facility] MCHC 32.2(L) 32.3 - 35.7 g/dL [facility] RDW CV 18.2(H) 11.1 - 14.9 % [facility] RDW SD 56.4(H) 35.7 - 48.1 fL [facility] NRBC abs 0.00 0.00 - 0.01 K/cumm [facility] Blood 08/13/2024 5:16 AM CDT 08/13/2024 7:38 AM CDT Royal Weiss MD LAB BLOOD ORDERABLES Florinda l Result Performing Organization Address City/[facility] Co de Phone Number [facility] [place] [address] * (ABNORMAL) Phosphorus (08/13/2024 5:16 AM CDT) [facility] Phosphorus, pl 6.6(H) 2.3 - 4.5 mg/dL Blood 08/13/2024 5:16 AM CDT 08/13/2024 7:38 AM CDT Royal Weiss MD LAB BLOOD ORDERABLES Florinda l Result Performing Organization Address [facility] Co de Phone Number [facility] [place] [address] * Magnesium (08/13/2024 5:16 AM CDT) [facility] Magnesium 1.8 1.4 - 2.5 mg/dL Blood 08/13/2024 5:16 AM CDT 08/13/2024 7:38 AM CDT Royal Weiss MD LAB BLOOD ORDERABLES Florinda l Result Performing Organization Address [facility] Co de Phone Number [facility] [place] [address] * (ABNORMAL) Basic metabolic panel (08/13/2024 5:16 AM CDT) [facility] Sodium 132(L) 135 - 145 mmol/L Potassium, pl 5.0(H) 3.3 - 4.9 mmol/L [facility] Chloride 98 97 - 110 mmol/L [facility] CO2 23 22 - 32 mmol/L [facility] Anion gap 11 2 - 15 mmol/L [facility] BUN 37(H) 6 - 25 mg/dL [facility] Creatinine 4.78(H) 0.60 - 1.10 mg/dL [facility] Glucose 105 70 - 199 mg/dL [facility] Comment: Interpretive Data Fasting glucose >/= 126 [...] 2022. Calcium 7.6(L) 8.5 - 10.3 mg/dL [facility] Blood 08/13/2024 5:16 AM CDT 08/13/2024 7:38 AM CDT Royal Weiss MD LAB BLOOD ORDERABLES Florinda l Result Performing Organization Address City/[facility] Co de Phone Number [facility] [place] [address] * (ABNORMAL) Hemoglobin and hematocrit (08/12/2024 12:42 PM CDT) [facility] Hgb 8.0(L) 11.9 - 15.5 g/dL Hct 24.3(L) 35.6 - 45.5 % [facility] Blood 08/12/2024 12:4 2 PM CDT 08/12/2024 1:02 PM CDT Narrative [facility] - 08/12/2024 1:10 PM CDT 1 hour after the red blood cell transfusion is complete. Royal Weiss MD LAB BLOOD ORDERABLES Florinda l Result Performing Organization Address City/[facility]/ZIP Co de Phone Number [facility] [place] [address] * Transfuse RBC (08/12/2024 11:17 AM CDT) Blood Result [facility] Hina Poon MD BLOOD TRANSFUSION ORDERABLES Edited Result - Final [facility] Department [place] [address] * Prepare RBC: 1 Units (08/12/2024 7:10 AM CDT) Product code [id number] Unit Number [id number] [facility] Product Blood Type APOS [facility] Dispense Status PRESUMED TRANSFUSED [facility] Blood 08/12/2024 7:10 AM CDT 08/12/2024 7:09 AM CDT Narrative [facility] - 08/12/2024 8:00 PM CDT Are special requirements needed? (All products are leukoreduced and CMV- safe)- >No Date required:-[id number] LRRBC # of [id number] Reasons:-Hgb <7 g/dL} Hina Poon MD BLOOD BANK PRODUCT ORDERABLE S Final Result [facility] Department [place] [address] * (ABNORMAL) eGFR (08/12/2024 5:58 AM CDT) [...] MD LAB BLOOD ORDERABLES Florinda margie Result [facility] [place] [address] * (ABNORMAL) Differential, auto (08/12/2024 5:58 AM CDT) Neutrophil abs 8.64(H) 1.50 - 6.50 K/cumm Imm gran abs 0.19(H) 0.00 - 0.10 K/cumm [facility] Lymphocyte abs 1.75 0.80 - 3.30 K/cumm [facility] Monocyte abs 0.79 0.20 - 0.80 K/cumm [facility] Eosinophil abs 0.10 0.00 - 0.50 K/cumm [facility] Basophil abs 0.06 0.00 - 0.10 K/cumm [facility] Neutrophil pct 74.9 % [facility] Comment: Interpretive Data Percent cell count reference ranges are not reported, since discordance with absolute values may lead to misinterpretation of CBC data. Current Interpretive Data was last revised on 2017. Imm gran pct 1.6 % [facility] Comment: Interpretive Data Percent cell count reference ranges are not reported, since discordance with absolute values may lead to misinterpretation of CBC data. Current Interpretive Data was last revised on 2017. Lymphocyte pct 15.2 % [facility] Comment: Interpretive Data Percent cell count reference ranges are not reported, since discordance with absolute values may lead to misinterpretation of CBC data. Current Interpretive Data was last revised on 2017. Monocyte pct 6.9 % [facility] Comment: Interpretive Data Percent cell count reference ranges are not reported, since discordance with absolute values may lead to misinterpretation of CBC data. Current Interpretive Data was last revised on 2017. Eosinophil pct 0.9 % [facility] Comment: Interpretive Data Percent cell count reference ranges are not reported, since discordance with absolute values may lead to misinterpretation of CBC data. Current Interpretive Data was last revised on 2017. Basophil pct 0.5 % [facility] Comment: Interpretive Data Percent cell count reference ranges are not reported, since discordance with absolute values may lead to misinterpretation of CBC data. Current Interpretive Data was last revised on 2017. Blood 08/12/2024 5:58 AM CDT 08/12/2024 6:23 AM CDT Royal Weiss MD LAB BLOOD ORDERABLES Florinda l Result Performing Organization Address City/[facility]/ZIP Co de Phone Number [facility] Department [place] [address] * (ABNORMAL) Calcium, ionized (08/12/2024 5:58 AM CDT) Pathologist [facility] Calcium, Ionized 4.43(L) 4.50 - 5.10 mg/dL Blood 08/12/2024 5:58 AM CDT 08/12/2024 6:08 AM CDT Royal Weiss MD LAB BLOOD ORDERABLES Florinda l Result Performing Organization Address City/[facility]/ZIP Co de Phone Number [facility] Department [place] [address] * (ABNORMAL) CBC with auto differential (08/12/2024 5:58 AM CDT) Pathologist [facility] WBC 11.53(H) 3.80 - 9.90 K/cumm Hgb 6.6(L) 11.9 - 15.5 g/dL [facility] Hct 20.0(L) 35.6 - 45.5 % [facility] Plt 321 150 - 400 K/cumm [facility] MPV 9.5 9.1 - 12.3 fL [facility] RBC 2.47(L) 3.90 - 5.20 M/cumm [facility] MCV 81.0(L) 81.3 - 96.4 fL [facility] MCH 26.7(L) 27.1 - 33.3 pg [facility] MCHC 33.0 32.3 - 35.7 g/dL [facility] RDW CV 17.8(H) 11.1 - 14.9 % [facility] RDW SD 51.8(H) 35.7 - 48.1 fL [facility] NRBC abs 0.00 0.00 - 0.01 K/cumm [facility] Blood 08/12/2024 5:58 AM CDT 08/12/2024 6:23 AM CDT Royal Weiss MD LAB BLOOD ORDERABLES Florinda l Result Performing Organization Address City/[facility]/ZIP Co de Phone Number [facility] Department [place] [address] * (ABNORMAL) Phosphorus (08/12/2024 5:58 AM CDT) Pathologist [facility] Phosphorus, pl 5.2(H) 2.3 - 4.5 mg/dL Blood 08/12/2024 5:58 AM CDT 08/12/2024 6:23 AM CDT Royal Weiss MD LAB BLOOD ORDERABLES Florinda l Result [facility] Department [place] [address] * Magnesium (08/12/2024 5:58 AM CDT) Pathologist [facility] Magnesium 1.9 1.4 - 2.5 mg/dL Blood 08/12/2024 5:58 AM CDT 08/12/2024 6:23 AM CDT Royal Weiss MD LAB BLOOD ORDERABLES Florinda l Result [facility] Department [place] [address] * (ABNORMAL) Basic metabolic panel (08/12/2024 5:58 AM CDT) Sodium 137 135 - 145 mmol/L Potassium, pl 4.1 3.3 - 4.9 mmol/L [facility] Chloride 103 97 - 110 mmol/L [facility] CO2 27 22 - 32 mmol/L [facility] Anion gap 7 2 - 15 mmol/L [facility] BUN 32(H) 6 - 25 mg/dL [facility] Creatinine 3.59(H) 0.60 - 1.10 mg/dL [facility] Glucose 112 70 - 199 mg/dL [facility] Comment: Interpretive Data Fasting glucose >/= 126 [...] 2022. Calcium 7.5(L) 8.5 - 10.3 mg/dL [facility] Blood 08/12/2024 5:58 AM CDT 08/12/2024 6:23 AM CDT Royal Weiss MD LAB BLOOD ORDERABLES Florinda l Result [facility] Department [place] [address] * (ABNORMAL) Hemoglobin and hematocrit (08/11/2024 6:42 PM CDT) Hgb 7.6(L) 11.9 - 15.5 g/dL Hct 22.6(L) 35.6 - 45.5 % [facility] Blood 08/11/2024 6:42 PM CDT 08/11/2024 6:52 PM CDT Narrative [facility] - 08/11/2024 6:58 PM CDT 1 hour after the red blood cell transfusion is complete. Royal Weiss MD LAB BLOOD ORDERABLES Florinda l Result Performing Organization Address City/[facility] Co de Phone Number [facility] [place] [address] * (ABNORMAL) Creatine kinase (CK), total (08/11/2024 6:42 PM CDT) CK <20(L) 30 - 200 Units/L Blood 08/11/2024 6:42 PM CDT 08/11/2024 6:52 PM CDT Royal Weiss MD LAB BLOOD ORDERABLES Florinda l Result Performing Organization Address [facility] Co de Phone Number [facility] [place] [address] * Transfuse RBC (08/11/2024 6:24 PM CDT) Blood Royal Weiss MD BLOOD TRANSFUSION ORDERAB LES Edited Result - Final Performing Organization Address [facility] Co de Phone Number [facility] [place] [address] * Type and screen (08/11/2024 8:14 AM CDT) ABO Rh A Positive Marybeth, indirect Negative [facility] Blood 08/11/2024 8:14 AM CDT 08/11/2024 8:32 AM CDT Narrative [facility] - 08/11/2024 9:19 AM CDT Has the patient had Daratumumab or Isatuximab in the past 6 months?->Unknown Royal Weiss MD LAB BLOOD BANK TEST ORDER MARTINEZ Final Result Performing Organization Address [facility] Co de Phone Number [facility] Department [place] [address] * Prepare RBC: 1 Units (08/11/2024 7:11 AM CDT) Pathologist [facility] Product code [id number] Unit Number [id number] [facility] Product Blood Type APOS [facility] Dispense Status PRESUMED TRANSFUSED [facility] Blood 08/11/2024 7:11 AM CDT 08/11/2024 7:11 AM CDT Narrative [facility] - 08/12/2024 12:56 AM CDT Are special requirements needed? (All products are leukoreduced and CMV- safe)- >No Date required:-[id number] LRRBC # of [id number] Reasons:-Hgb <7 g/dL} Royal Weiss MD BLOOD BANK PRODUCT ORDERA BLES Final Result Performing Organization Address [facility] Co de Phone Number [facility] Department [place] [address] * (ABNORMAL) eGFR (08/11/2024 6:14 AM CDT) [facility] eGFR 14(L) >=60 mL/min/1. 73 m2 Comment: [...] MD LAB BLOOD ORDERABLES Florinda margie Result [facility] [place] [address] * (ABNORMAL) Differential, auto (08/11/2024 6:14 AM CDT) Neutrophil abs 9.18(H) 1.50 - 6.50 K/cumm Imm gran abs 0.20(H) 0.00 - 0.10 K/cumm [facility] Lymphocyte abs 1.79 0.80 - 3.30 K/cumm [facility] Monocyte abs 0.93(H) 0.20 - 0.80 K/cumm [facility] Eosinophil abs 0.09 0.00 - 0.50 K/cumm [facility] Basophil abs 0.04 0.00 - 0.10 K/cumm [facility] Neutrophil pct 75.2 % [facility] Comment: Interpretive Data Percent cell count reference ranges are not reported, since discordance with absolute values may lead to misinterpretation of CBC data. Current Interpretive Data was last revised on 2017. Imm gran pct 1.6 % [facility] Comment: Interpretive Data Percent cell count reference ranges are not reported, since discordance with absolute values may lead to misinterpretation of CBC data. Current Interpretive Data was last revised on 2017. Lymphocyte pct 14.6 % [facility] Comment: Interpretive Data Percent cell count reference ranges are not reported, since discordance with absolute values may lead to misinterpretation of CBC data. Current Interpretive Data was last revised on 2017. Monocyte pct 7.6 % [facility] Comment: Interpretive Data Percent cell count reference ranges are not reported, since discordance with absolute values may lead to misinterpretation of CBC data. Current Interpretive Data was last revised on 2017. Eosinophil pct 0.7 % [facility] Comment: Interpretive Data Percent cell count reference ranges are not reported, since discordance with absolute values may lead to misinterpretation of CBC data. Current Interpretive Data was last revised on 2017. Basophil pct 0.3 % [facility] Comment: Interpretive Data Percent cell count reference ranges are not reported, since discordance with absolute values may lead to misinterpretation of CBC data. Current Interpretive Data was last revised on 2017. Blood 08/11/2024 6:14 AM CDT 08/11/2024 6:44 AM CDT Royal Weiss MD LAB BLOOD ORDERABLES Florinda l Result [facility] Department [place] [address] * Calcium, ionized (08/11/2024 6:14 AM CDT) Pathologist [facility] Calcium, Ionized 4.54 4.50 - 5.10 mg/dL Blood 08/11/2024 6:14 AM CDT 08/11/2024 6:29 AM CDT Royal Weiss MD LAB BLOOD ORDERABLES Florinda l Result Performing Organization Address City/[facility]/ZIP Co de Phone Number [facility] Department [place] [address] * (ABNORMAL) CBC with auto differential (08/11/2024 6:14 AM CDT) Pathologist [facility] WBC 12.23(H) 3.80 - 9.90 K/cumm Hgb 6.2(C) 11.9 - 15.5 g/dL [facility] Comment:This result has been called to Emilie Bhatt RN by [email or web address] on 08/11/2024 07:02:18, and has been read back. Hct 18.6(L) 35.6 - 45.5 % [facility] Plt 373 150 - 400 K/cumm [facility] MPV 9.9 9.1 - 12.3 fL [facility] RBC 2.35(L) 3.90 - 5.20 M/cumm [facility] MCV 79.1(L) 81.3 - 96.4 fL [facility] MCH 26.4(L) 27.1 - 33.3 pg [facility] MCHC 33.3 32.3 - 35.7 g/dL [facility] RDW CV 18.5(H) 11.1 - 14.9 % [facility] RDW SD 51.9(H) 35.7 - 48.1 fL [facility] NRBC abs 0.00 0.00 - 0.01 K/cumm [facility] Blood 08/11/2024 6:14 AM CDT 08/11/2024 6:44 AM CDT Royal Weiss MD LAB BLOOD ORDERABLES Florinda l Result [facility] [place] [address] * (ABNORMAL) Phosphorus (08/11/2024 6:14 AM CDT) [facility] Phosphorus, pl 5.3(H) 2.3 - 4.5 mg/dL Blood 08/11/2024 6:14 AM CDT 08/11/2024 6:41 AM CDT Royal Weiss MD LAB BLOOD ORDERABLES Florinda l Result [facility] [place] [address] * Magnesium (08/11/2024 6:14 AM CDT) Pathologist [facility] Magnesium 1.9 1.4 - 2.5 mg/dL Blood 08/11/2024 6:14 AM CDT 08/11/2024 6:41 AM CDT Royal Weiss MD LAB BLOOD ORDERABLES Florinda l Result Performing Organization Address City/[facility]/ZIP Co de Phone Number [facility] [place] [address] * (ABNORMAL) Basic metabolic panel (08/11/2024 6:14 AM CDT) Pathologist [facility] Sodium 134(L) 135 - 145 mmol/L Potassium, pl 4.2 3.3 - 4.9 mmol/L [facility] Chloride 101 97 - 110 mmol/L [facility] CO2 27 22 - 32 mmol/L [facility] Anion gap 6 2 - 15 mmol/L [facility] BUN 42(H) 6 - 25 mg/dL [facility] Creatinine 4.19(H) 0.60 - 1.10 mg/dL [facility] Glucose 95 70 - 199 mg/dL [facility] Comment: Interpretive Data Fasting glucose >/= 126 [...] 2022. Calcium 7.4(L) 8.5 - 10.3 mg/dL [facility] Blood 08/11/2024 6:14 AM CDT 08/11/2024 6:41 AM CDT Royal Weiss MD LAB BLOOD ORDERABLES Florinda l Result Performing Organization Address City/[facility]/ZIP Co de Phone Number ARAMIS PRUITT [facility] [place] [address] * Infection Prevention Helen auris PCR, surveillance Axilla/Groin (08/10/2024 7:09 PM CDT) Pathologist [facility] Helen auris DNA Not Detected Not Detected [facility] Comment: Interpretive Data Testing performed by [facility] Molecular Infectious Disease Laboratory using the Noa pramod [id number] Helen auris assay. This assay detects DNA from Helen auris using Real-Time PCR. This assay is laboratory developed and is not cleared by the [place] Food and Drug Administration. The performance characteristics have been verified by the [facility] Molecular Infectious Disease Laboratory. Axilla/Groin 08/10/2024 7:09 PM CDT 08/10/2024 8:33 PM CDT Umang Phillips MD LAB MICROBIOLOGY - GENERAL ORDER MARTINEZ Final Result ARAMIS PRUITT [facility] [place] [address] [facility] * (ABNORMAL) eGFR (08/10/2024 12:22 PM CDT) Pathologist [facility] eGFR 12(L) >=60 mL/min/1. 73 m2 Comment: [...] MD LAB BLOOD ORDERABLES Florinda l Result [facility] [place] [address] * (ABNORMAL) Basic metabolic panel (08/10/2024 12:22 PM CDT) Sodium 132(L) 135 - 145 mmol/L Potassium, pl 4.8 3.3 - 4.9 mmol/L [facility] Chloride 101 97 - 110 mmol/L [facility] CO2 23 22 - 32 mmol/L [facility] Anion gap 8 2 - 15 mmol/L [facility] BUN 52(H) 6 - 25 mg/dL [facility] Creatinine 4.69(H) 0.60 - 1.10 mg/dL [facility] Glucose 84 70 - 199 mg/dL [facility] Comment: Interpretive Data Fasting glucose >/= 126 [...] 2022. Calcium 7.8(L) 8.5 - 10.3 mg/dL [facility] Blood 08/10/2024 12:2 2 PM CDT 08/10/2024 12:44 PM CDT Royal Weiss MD LAB BLOOD ORDERABLES Florinda l Result Performing Organization Address City/[facility]/ZIP Co de Phone Number [facility] [place] [address] * (ABNORMAL) eGFR (08/10/2024 5:01 AM CDT) [...] 5:01 AM CDT 08/10/2024 5:11 AM CDT us Royal Weiss MD LAB BLOOD ORDERABLES Florinda hanson Result ARAMIS PRUITT [facility] [place] [address] * (ABNORMAL) Differential, auto (08/10/2024 5:01 AM CDT) Neutrophil abs 10.12(H) 1.50 - 6.50 K/cumm Imm gran abs 0.24(H) 0.00 - 0.10 K/cumm [facility] Lymphocyte abs 1.74 0.80 - 3.30 K/cumm [facility] Monocyte abs 0.99(H) 0.20 - 0.80 K/cumm [facility] Eosinophil abs 0.11 0.00 - 0.50 K/cumm [facility] Basophil abs 0.05 0.00 - 0.10 K/cumm [facility] Neutrophil pct 76.4 % [facility] Comment: Interpretive Data Percent cell count reference ranges are not reported, since discordance with absolute values may lead to misinterpretation of CBC data. Current Interpretive Data was last revised on 2017. Imm gran pct 1.8 % [facility] Comment: Interpretive Data Percent cell count reference ranges are not reported, since discordance with absolute values may lead to misinterpretation of CBC data. Current Interpretive Data was last revised on 2017. Lymphocyte pct 13.1 % [facility] Comment: Interpretive Data Percent cell count reference ranges are not reported, since discordance with absolute values may lead to misinterpretation of CBC data. Current Interpretive Data was last revised on 2017. Monocyte pct 7.5 % [facility] Comment: Interpretive Data Percent cell count reference ranges are not reported, since discordance with absolute values may lead to misinterpretation of CBC data. Current Interpretive Data was last revised on 2017. Eosinophil pct 0.8 % [facility] Comment: Interpretive Data Percent cell count reference ranges are not reported, since discordance with absolute values may lead to misinterpretation of CBC data. Current Interpretive Data was last revised on 2017. Basophil pct 0.4 % [facility] Comment: Interpretive Data Percent cell count reference ranges are not reported, since discordance with absolute values may lead to misinterpretation of CBC data. Current Interpretive Data was last revised on 2017. Blood 08/10/2024 5:01 AM CDT 08/10/2024 5:17 AM CDT us Royal Weiss MD LAB BLOOD ORDERABLES Florinda l Result ARAMIS [facility] Department [place] [address] * (ABNORMAL) Calcium, ionized (08/10/2024 5:01 AM CDT) Calcium, Ionized 4.20(L) 4.50 - 5.10 mg/dL Blood 08/10/2024 5:01 AM CDT 08/10/2024 5:11 AM CDT Royal Weiss MD LAB BLOOD ORDERABLES Florinda l Result Performing Organization Address [facility] de Phone Number [facility] [place] [address] * (ABNORMAL) CBC with auto differential (08/10/2024 5:01 AM CDT) Pathologist [facility] WBC 13.25(H) 3.80 - 9.90 K/cumm Hgb 7.1(L) 11.9 - 15.5 g/dL [facility] Hct 20.9(L) 35.6 - 45.5 % [facility] Plt 419(H) 150 - 400 K/cumm [facility] MPV 9.9 9.1 - 12.3 fL [facility] RBC 2.73(L) 3.90 - 5.20 M/cumm [facility] MCV 76.6(L) 81.3 - 96.4 fL [facility] MCH 26.0(L) 27.1 - 33.3 pg [facility] MCHC 34.0 32.3 - 35.7 g/dL [facility] RDW CV 17.8(H) 11.1 - 14.9 % [facility] RDW SD 49.2(H) 35.7 - 48.1 fL [facility] NRBC abs 0.00 0.00 - 0.01 K/cumm [facility] Blood 08/10/2024 5:01 AM CDT 08/10/2024 5:17 AM CDT Royal Weiss MD LAB BLOOD ORDERABLES Florinda l Result Performing Organization Address [facility]/ZIP Co de Phone Number [facility] [place] [address] * (ABNORMAL) Phosphorus (08/10/2024 5:01 AM CDT) [facility] Phosphorus, pl 8.4(H) 2.3 - 4.5 mg/dL Blood 08/10/2024 5:01 AM CDT 08/10/2024 5:11 AM CDT Royal Weiss MD LAB BLOOD ORDERABLES Florinda l Result Performing Organization Address City/[facility]/ZIP Co de Phone Number [facility] Department [place] [address] * Magnesium (08/10/2024 5:01 AM CDT) [facility] Magnesium 2.0 1.4 - 2.5 mg/dL Blood 08/10/2024 5:01 AM CDT 08/10/2024 5:11 AM CDT Royal Weiss MD LAB BLOOD ORDERABLES Florinda l Result Performing Organization Address City/[facility] de Phone Number [facility] [place] [address] * (ABNORMAL) Basic metabolic panel (08/10/2024 5:01 AM CDT) [facility] Sodium 132(L) 135 - 145 mmol/L Potassium, pl 5.1(H) 3.3 - 4.9 mmol/L [facility] Chloride 101 97 - 110 mmol/L [facility] CO2 20(L) 22 - 32 mmol/L [facility] Anion gap 11 2 - 15 mmol/L [facility] BUN 61(H) 6 - 25 mg/dL [facility] Creatinine 5.62(H) 0.60 - 1.10 mg/dL [facility] Glucose 92 70 - 199 mg/dL [facility] Comment: Interpretive Data Fasting glucose >/= 126 [...] 2022. Calcium 7.3(L) 8.5 - 10.3 mg/dL [facility] Blood 08/10/2024 5:01 AM CDT 08/10/2024 5:11 AM CDT Royal Weiss MD LAB BLOOD ORDERABLES Florinda l Result Performing Organization Address City/[facility]/ZIP Co de Phone Number [facility] Department [place] [address] * POCT glucose (08/10/2024 3:35 AM CDT) Glucose, POC 110 70 - 199 mg/dL Blood 08/10/2024 3:35 AM CDT 08/10/2024 3:35 AM CDT Royal Weiss MD LAB POCT ORDERABLES - DEV ICE Final Result Performing Organization Address [facility] Co de Phone Number [facility] [place] [address] * Potassium (08/10/2024 3:35 AM CDT) Potassium, pl 4.5 3.3 - 4.9 mmol/L Blood 08/10/2024 3:35 AM CDT 08/10/2024 3:47 AM CDT Narrative [facility] - 08/10/2024 4:11 AM CDT Provider to discontinue after two normal results. Royal Weiss MD LAB BLOOD ORDERABLES Florinda l Result Performing Organization Address [facility]/ZIP Co de Phone Number [facility] Department [place] [address] * Potassium (08/10/2024 12:00 AM CDT) Potassium, pl 4.9 3.3 - 4.9 mmol/L Blood 08/10/2024 08/10/2024 12: 14 AM CDT Narrative [facility] - 08/10/2024 12:34 AM CDT Provider to discontinue after two normal results. Royal Weiss MD LAB BLOOD ORDERABLES Florinda l Result [facility] [place] [address] * POCT glucose (08/09/2024 11:57 PM CDT) Glucose, POC 84 70 - 199 mg/dL Blood 08/09/2024 11:5 7 PM CDT 08/09/2024 11:57 PM CDT Royal Weiss MD LAB POCT ORDERABLES - DEV ICE Final Result [facility] [place] [address] * POCT glucose (08/09/2024 11:01 PM CDT) Glucose, POC 171 70 - 199 mg/dL Blood 08/09/2024 11:0 1 PM CDT 08/09/2024 11:01 PM CDT Royal Weiss MD LAB POCT ORDERABLES - DEV ICE Final Result [facility] [place] [address] * POCT glucose (08/09/2024 10:17 PM CDT) Glucose, POC 155 70 - 199 mg/dL Blood 08/09/2024 10:1 7 PM CDT 08/09/2024 10:17 PM CDT Royal Weiss MD LAB POCT ORDERABLES - DEV ICE Final Result Performing Organization Address [facility] de Phone Number [facility] [place] [address] * POCT glucose (08/09/2024 9:05 PM CDT) Glucose, POC 111 70 - 199 mg/dL Blood 08/09/2024 9:05 PM CDT 08/09/2024 9:05 PM CDT Royal Weiss MD LAB POCT ORDERABLES - DEV ICE Final Result Performing Organization Address [facility] Phone Number [facility] [place] [address] * (ABNORMAL) Potassium (08/09/2024 8:51 PM CDT) [facility] Potassium, pl 5.9(H) 3.3 - 4.9 mmol/L Blood 08/09/2024 8:51 PM CDT 08/09/2024 9:20 PM CDT Narrative [facility] - 08/09/2024 9:41 PM CDT Provider to discontinue after two normal results. Royal Weiss MD LAB BLOOD ORDERABLES Florinda l Result Performing Organization Address [facility] [place] [address] * POCT glucose (08/09/2024 7:49 PM CDT) Glucose, POC 91 70 - 199 mg/dL Blood 08/09/2024 7:49 PM CDT 08/09/2024 7:49 PM CDT us Royal Weiss MD LAB POCT ORDERABLES - DEV ICE Final Result ARAMIS [facility] [place] [address] * XR Chest 1 View (08/09/2024 6:57 [...] 6:57 PM CDT 08/09/2024 6:57 PM CDT us Royal Weiss MD LAB POCT ORDERABLES - DEV ICE Final Result Performing Organization Address City/[facility]/ZIP Co de Phone Number [facility] [place] [address] * POCT glucose (08/09/2024 6:09 PM CDT) Glucose, POC 75 70 - 199 mg/dL Blood 08/09/2024 6:09 PM CDT 08/09/2024 6:09 PM CDT us Royal Weiss MD LAB POCT ORDERABLES - DEV ICE Final Result Performing Organization Address [facility] Co de Phone Number [facility] [place] [address] * (ABNORMAL) Potassium, whole blood (08/09/2024 6:00 PM CDT) [facility] Potassium, bld 5.9(H) 3.3 - 4.9 mmol/L Blood 08/09/2024 6:00 PM CDT 08/09/2024 6:15 PM CDT Royal Weiss MD LAB BLOOD ORDERABLES Florinda l Result Performing Organization Address City/[facility]/ZIP Co de Phone Number [facility] [place] [address] * POCT glucose (08/09/2024 5:20 PM CDT) Glucose, POC 88 70 - 199 mg/dL Blood 08/09/2024 5:20 PM CDT 08/09/2024 5:20 PM CDT us Royal Weiss MD LAB POCT ORDERABLES - DEV ICE Final Result [facility] [place] [address] * [place] INSJ NON-TUNNELED CENTRAL VENOUS CATH AGE 5 YR/> (08/09/2024 5:19 PM CDT) Narrative Royal Weiss MD - 08/09/2024 5:19 PM CDT Royal Weiss MD 08/10/2024 11:44 AM Trialysis line Insertion Date/Time: 08/09/2024 5:19 PM Performed by: Alvaro Hu MD Authorized by: Alvaro Hu MD [place] Protocol: RN Notified of Procedure: yes Informed consent: Risks, benefits, alternatives discussed and patient/appeals representative/guardian agrees and accepts Patient's stated name/ [...] to culture positivity (anaerobic media): 11.8 hours [facility] Report Final Report: Staphylococcus aureus Methicillin resistant (MRSA) by penicillin binding protein 2a (PBP2a) testing. Staphylococcus aureus #2 Methicillin resistant (MRSA) by penicillin binding protein 2a (PBP2a) testing. (.) ARAMIS [facility] Organism STAPHYLOCOCCUS AUREUS ARAMIS [facility] Organism STAPHYLOCOCCUS AUREUS [facility] Blood 08/09/2024 5:19 PM CDT 08/09/2024 5:53 PM CDT Narrative ARAMIS [facility] - 08/13/2024 1:20 PM CDT Collection->New stick [...] performance characteristics have been verified by the [facility] Microbiology Laboratory. For questions about this culture, contact the Microbiology Laboratory at [phone]. Interpretive data was last revised on 24. [...] - GENERA L ORDERABLES Final Result ARAMIS PRUITT [facility] Department [place] [address] * Critical Result Callback Chemistry (08/09/2024 4:21 PM CDT) Date Notified [id number] Time Notified 1711 ARAMIS YING TestName Potassium Plas [facility] Called/Read Back Katya Grover [facility] Credentials RN ARAMIS [facility] Called By CLAUDIA SELF [facility] Blood 08/09/2024 4:21 PM CDT 08/09/2024 4:38 PM CDT Royal Weiss MD LAB BLOOD ORDERABLES Florinda l Result [facility] Department [place] [address] * (ABNORMAL) Potassium (08/09/2024 4:21 PM CDT) Potassium, pl 6.3(C) 3.3 - 4.9 mmol/L Comment:Hemolyzed; Potassium value may be falsely elevated by as much as 0.3-0.5 mmol/L. Suggest redraw and reanalysis. Blood 08/09/2024 4:21 PM CDT 08/09/2024 4:38 PM CDT Narrative [facility] - 08/09/2024 5:08 PM CDT Provider to discontinue after two normal results. Royal Weiss MD LAB BLOOD ORDERABLES Florinda l Result Performing Organization Address City/[facility]/ZIP Co de Phone Number [facility] [place] [address] * POCT glucose (08/09/2024 4:07 PM CDT) Glucose, POC 89 70 - 199 mg/dL Blood 08/09/2024 4:07 PM CDT 08/09/2024 4:07 PM CDT Royal Weiss MD LAB POCT ORDERABLES - DEV ICE Final Result [facility] [place] [address] * POCT glucose (08/09/2024 3:22 PM CDT) Glucose, POC 78 70 - 199 mg/dL Blood 08/09/2024 3:22 PM CDT 08/09/2024 3:22 PM CDT Royal Weiss MD LAB POCT ORDERABLES - DEV ICE Final Result Performing Organization Address City/[facility] Co de Phone Number [facility] [place] [address] * POCT glucose (08/09/2024 1:00 PM CDT) Glucose, POC 112 70 - 199 mg/dL Blood 08/09/2024 1:00 PM CDT 08/09/2024 1:00 PM CDT Royal Weiss MD LAB POCT ORDERABLES - DEV ICE Final Result Performing Organization Address [facility] de Phone Number [facility] [place] [address] * POCT glucose (08/09/2024 12:03 PM CDT) Glucose, POC 136 70 - 199 mg/dL Blood 08/09/2024 12:0 3 PM CDT 08/09/2024 12:03 PM CDT Royal Weiss MD LAB POCT ORDERABLES - DEV ICE Final Result Performing Organization Address [facility] de Phone Number [facility] [place] [address] * (ABNORMAL) Potassium (08/09/2024 11:59 AM CDT) Potassium, pl 5.9(H) 3.3 - 4.9 mmol/L Blood 08/09/2024 11:5 9 AM CDT 08/09/2024 12:33 PM CDT Narrative [facility] - 08/09/2024 1:00 PM CDT Provider to discontinue after two normal results. Royal Weiss MD LAB BLOOD ORDERABLES Florinda l Result Performing Organization Address City/[facility] Co de Phone Number [facility] [place] [address] * POCT glucose (08/09/2024 10:57 AM CDT) Glucose, POC 118 70 - 199 mg/dL Blood 08/09/2024 10:5 7 AM CDT 08/09/2024 10:57 AM CDT Royal Weiss MD LAB POCT ORDERABLES - DEV ICE Final Result Performing Organization Address [facility] de Phone Number [facility] [place] [address] * POCT glucose (08/09/2024 10:08 AM CDT) Glucose, POC 91 70 - 199 mg/dL Blood 08/09/2024 10:0 8 AM CDT 08/09/2024 10:08 AM CDT Royal Weiss MD LAB POCT ORDERABLES - DEV ICE Final Result Performing Organization Address [facility] de Phone Number [facility] [place] [address] * ECG 12 lead (08/09/2024 8:50 AM CDT) Ventricular Rate EKG/Min 98 BPM [facility] Atrial Rate 98 BPM [facility] [place]-Interval (MSEC) 128 ms [facility] QRS-Interval (MSEC) 66 ms [facility] QT-Interval (MSEC) 354 ms [facility] QTc 451 ms [facility] P [place] 32 degrees [facility] R [place] 42 degrees [facility] T [place] 60 degrees [facility] Diagnosis Normal sinus rhythm Low voltage QRS Borderline ECG When compared with ECG of 08-AUG-2024 18:22, (unconfirmed) No significant change was found Confirmed by BREANA VENTURA M.D ([id number]) on 08/09/2024 10:45:14 PM [facility] 08/09/2024 8:50 AM CDT 08/09/2024 10:45 PM CDT us Royal Weiss MD ECG ORDERABLES Final Res ult Performing Organization Address [facility] Co de Phone Number [facility] * (ABNORMAL) eGFR (08/09/2024 6:40 AM CDT) eGFR 7(L) >=60 mL/min/1. 73 m2 Comment: [...] 6:40 AM CDT 08/09/2024 7:34 AM CDT us Royal Weiss MD LAB BLOOD ORDERABLES Florinda l Result Performing Organization Address City/[facility]/ZIP Co de Phone Number [facility] Department [place] [address] * (ABNORMAL) Calcium, ionized (08/09/2024 6:40 AM CDT) [facility] Calcium, Ionized 4.07(L) 4.50 - 5.10 mg/dL Blood 08/09/2024 6:40 AM CDT 08/09/2024 7:22 AM CDT Royal Weiss MD LAB BLOOD ORDERABLES Florinda l Result Performing Organization Address [facility] Co de Phone Number [facility] [place] [address] * (ABNORMAL) CBC with auto differential (08/09/2024 6:40 AM CDT) [facility] WBC 18.57(H) 3.80 - 9.90 K/cumm Hgb 8.2(L) 11.9 - 15.5 g/dL [facility] Hct 24.1(L) 35.6 - 45.5 % [facility] Plt 493(H) 150 - 400 K/cumm [facility] MPV 10.6 9.1 - 12.3 fL [facility] RBC 3.11(L) 3.90 - 5.20 M/cumm [facility] MCV 77.5(L) 81.3 - 96.4 fL [facility] MCH 26.4(L) 27.1 - 33.3 pg [facility] MCHC 34.0 32.3 - 35.7 g/dL [facility] RDW CV 17.9(H) 11.1 - 14.9 % [facility] RDW SD 50.0(H) 35.7 - 48.1 fL [facility] NRBC abs 0.00 0.00 - 0.01 K/cumm [facility] Morphologic Screen Results confirmed by manual morphology review. [facility] Blood 08/09/2024 6:40 AM CDT 08/09/2024 7:23 AM CDT Roayl Weiss MD LAB BLOOD ORDERABLES Edit ed Result - Final Performing Organization Address City/[facility]/ZIP Co de Phone Number [facility] [place] [address] * (ABNORMAL) Manual Differential (08/09/2024 6:40 AM CDT) Differential Manual Neutrophil abs 17.29(H) 1.50 - 6.50 K/cumm [facility] Lymphocyte abs 0.80 0.80 - 3.30 K/cumm [facility] Monocyte abs 0.48 0.20 - 0.80 K/cumm [facility] Neutrophil pct 93.1 % [facility] Comment: Interpretive Data Percent cell count reference ranges are not reported, since discordance with absolute values may lead to misinterpretation of CBC data. Current Interpretive Data was last revised on 2017. Lymphocyte pct 4.3 % [facility] Comment: Interpretive Data Percent cell count reference ranges are not reported, since discordance with absolute values may lead to misinterpretation of CBC data. Current Interpretive Data was last revised on 2017. Monocyte pct 2.6 % [facility] Comment: Interpretive Data Percent cell count reference ranges are not reported, since discordance with absolute values may lead to misinterpretation of CBC data. Current Interpretive Data was last revised on 2017. Blood 08/09/2024 6:40 AM CDT 08/09/2024 7:38 AM CDT Royal Weiss MD LAB BLOOD ORDERABLES Florinda l Result [facility] [place] [address] * (ABNORMAL) Phosphorus (08/09/2024 6:40 AM CDT) Phosphorus, pl 11.9(H) 2.3 - 4.5 mg/dL Blood 08/09/2024 6:40 AM CDT 08/09/2024 7:23 AM CDT Royal Weiss MD LAB BLOOD ORDERABLES Florinda l Result [facility] [place] [address] * Magnesium (08/09/2024 6:40 AM CDT) [facility] Magnesium 2.4 1.4 - 2.5 mg/dL Blood 08/09/2024 6:40 AM CDT 08/09/2024 7:23 AM CDT Royal Weiss MD LAB BLOOD ORDERABLES Florinda l Result Performing Organization Address [facility] de Phone Number [facility] [place] [address] * (ABNORMAL) Basic metabolic panel (08/09/2024 6:40 AM CDT) [facility] Sodium 131(L) 135 - 145 mmol/L Potassium, pl 5.6(H) 3.3 - 4.9 mmol/L [facility] Chloride 99 97 - 110 mmol/L [facility] CO2 17(L) 22 - 32 mmol/L [facility] Anion gap 15 2 - 15 mmol/L [facility] BUN 80(H) 6 - 25 mg/dL [facility] Creatinine 7.16(H) 0.60 - 1.10 mg/dL [facility] Glucose 78 70 - 199 mg/dL [facility] Comment: Interpretive Data Fasting glucose >/= 126 [...] 2022. Calcium 7.1(L) 8.5 - 10.3 mg/dL [facility] Blood 08/09/2024 6:40 AM CDT 08/09/2024 7:23 AM CDT Royal Weiss MD LAB BLOOD ORDERABLES Florinda l Result Performing Organization Address City/[facility]/ZIP Co de Phone Number [facility] [place] [address] * ECG 12 lead (08/08/2024 6:22 PM CDT) Ventricular Rate EKG/Min 81 BPM [facility] Atrial Rate 81 BPM [facility] [place]-Interval (MSEC) 144 ms [facility] QRS-Interval (MSEC) 68 ms [facility] QT-Interval (MSEC) 396 ms [facility] QTc 460 ms [facility] P [place] 29 degrees [facility] R [place] 37 degrees [facility] T [place] 56 degrees [facility] Diagnosis Normal sinus rhythm Normal ECG When compared with ECG of 07-AUG-2024 12:40, (unconfirmed) No significant change was found Confirmed by HAJA CORREA M.D ([id number]) on 08/10/2024 1:33:21 PM [facility] 08/08/2024 6:22 PM CDT 08/10/2024 1:33 PM CDT us Royal Weiss MD ECG ORDERABLES Final Res ult Performing Organization Address City/[facility]/ZIP Co de Phone Number [facility] * (ABNORMAL) Bacterial vaginosis stain Vaginal (08/08/2024 4:24 PM CDT) Direct Specimen Exam Stain: Gram stain indicates altered vaginal melissa, not diagnostic of bacterial vaginosis. Yeast present (.) Vaginal 08/08/2024 4:24 PM CDT 08/08/2024 5:57 PM CDT Narrative [facility] - 08/08/2024 7:13 PM CDT Specimen received [...] L ORDERABLES Final Result Performing Organization Address City/[facility]/ZIP Co de Phone Number ARAMIS [facility] [place] [address] * POCT glucose (08/08/2024 4:07 PM CDT) Glucose, POC 91 70 - 199 mg/dL Blood 08/08/2024 4:07 PM CDT 08/08/2024 4:07 PM CDT Royal Weiss MD LAB POCT ORDERABLES - DEV ICE Final Result Performing Organization Address [facility] Co de Phone Number ARAMIS [facility] [place] [address] * (ABNORMAL) Blood culture Blood (08/08/2024 3:04 PM CDT) Direct Specimen Exam Stain: Gram Positive Cocci in clusters Time to culture positivity (aerobic media): 16.1 hours Time to culture positivity (anaerobic media): 18.1 hours Report Final Report: Staphylococcus aureus For susceptibility results, refer to accession number [id number] on the blood culture from 08/05/2024 * * * * * * * * * * * * * * * * * * * * Staphylococcus aureus #2 Methicillin resistant (MRSA) by penicillin binding protein 2a (PBP2a) testing. (.) [facility] Organism STAPHYLOCOCCUS AUREUS [facility] Organism STAPHYLOCOCCUS AUREUS [facility] Blood 08/08/2024 3:04 PM CDT 08/08/2024 5:39 PM CDT Narrative [facility] - 08/12/2024 12:46 PM CDT Collection->Peripheral 1. [...] performance characteristics have been verified by the [facility] Microbiology Laboratory. For questions about this culture, contact the Microbiology Laboratory at [phone]. Interpretive data was last revised on 24. [...] - GENERA L ORDERABLES Final Result [facility] Department [place] [address] * POCT glucose (08/08/2024 12:09 PM CDT) Glucose, POC 79 70 - 199 mg/dL Blood 08/08/2024 12:0 9 PM CDT 08/08/2024 12:09 PM CDT Royal Weiss MD LAB POCT ORDERABLES - DEV ICE Final Result Performing Organization Address [facility] de Phone Number [facility] Department [place] [address] * POCT glucose (08/08/2024 7:45 AM CDT) Glucose, POC 132 70 - 199 mg/dL Blood 08/08/2024 7:45 AM CDT 08/08/2024 7:45 AM CDT Royal Weiss MD LAB POCT ORDERABLES - DEV ICE Final Result Performing Organization Address [facility] Phone Number [facility] [place] [address] * (ABNORMAL) eGFR (08/08/2024 5:15 AM CDT) Pathologist [facility] eGFR 8(L) >=60 mL/min/1. 73 m2 Comment: [...] MD LAB BLOOD ORDERABLES Florinda margie Result [facility] Department [place] [address] * (ABNORMAL) Differential, auto (08/08/2024 5:15 AM CDT) Neutrophil abs 14.39(H) 1.50 - 6.50 K/cumm Imm gran abs 0.40(H) 0.00 - 0.10 K/cumm [facility] Lymphocyte abs 2.08 0.80 - 3.30 K/cumm [facility] Monocyte abs 1.28(H) 0.20 - 0.80 K/cumm [facility] Eosinophil abs 0.23 0.00 - 0.50 K/cumm [facility] Basophil abs 0.06 0.00 - 0.10 K/cumm [facility] Neutrophil pct 78.1 % [facility] Comment: Differential consistent with previous result. Interpretive Data Percent cell count reference ranges are not reported, since discordance with absolute values may lead to misinterpretation of CBC data. Current Interpretive Data was last revised on 2017. Imm gran pct 2.2 % [facility] Comment: Interpretive Data Percent cell count reference ranges are not reported, since discordance with absolute values may lead to misinterpretation of CBC data. Current Interpretive Data was last revised on 2017. Lymphocyte pct 11.3 % [facility] Comment: Interpretive Data Percent cell count reference ranges are not reported, since discordance with absolute values may lead to misinterpretation of CBC data. Current Interpretive Data was last revised on 2017. Monocyte pct 6.9 % [facility] Comment: Interpretive Data Percent cell count reference ranges are not reported, since discordance with absolute values may lead to misinterpretation of CBC data. Current Interpretive Data was last revised on 2017. Eosinophil pct 1.2 % [facility] Comment: Interpretive Data Percent cell count reference ranges are not reported, since discordance with absolute values may lead to misinterpretation of CBC data. Current Interpretive Data was last revised on 2017. Basophil pct 0.3 % [facility] Comment: Interpretive Data Percent cell count reference ranges are not reported, since discordance with absolute values may lead to misinterpretation of CBC data. Current Interpretive Data was last revised on 2017. Blood 08/08/2024 5:15 AM CDT 08/08/2024 6:36 AM CDT Royal Weiss MD LAB BLOOD ORDERABLES Florinda l Result Performing Organization Address City/[facility]/ZIP Co de Phone Number [facility] Department [place] [address] * (ABNORMAL) Calcium, ionized (08/08/2024 5:15 AM CDT) [facility] Calcium, Ionized 4.31(L) 4.50 - 5.10 mg/dL Blood 08/08/2024 5:15 AM CDT 08/08/2024 6:36 AM CDT Royal Weiss MD LAB BLOOD ORDERABLES Florinda l Result Performing Organization Address City/[facility]/ZIP Co de Phone Number [facility] Department [place] [address] * (ABNORMAL) CBC with auto differential (08/08/2024 5:15 AM CDT) Pathologist [facility] WBC 18.44(H) 3.80 - 9.90 K/cumm Hgb 7.5(L) 11.9 - 15.5 g/dL [facility] Hct 21.6(L) 35.6 - 45.5 % [facility] Plt 385 150 - 400 K/cumm [facility] MPV 11.0 9.1 - 12.3 fL [facility] RBC 2.84(L) 3.90 - 5.20 M/cumm [facility] MCV 76.1(L) 81.3 - 96.4 fL [facility] MCH 26.4(L) 27.1 - 33.3 pg [facility] MCHC 34.7 32.3 - 35.7 g/dL [facility] RDW CV 17.7(H) 11.1 - 14.9 % [facility] RDW SD 48.9(H) 35.7 - 48.1 fL [facility] NRBC abs 0.00 0.00 - 0.01 K/cumm [facility] Blood 08/08/2024 5:15 AM CDT 08/08/2024 6:36 AM CDT Royal Weiss MD LAB BLOOD ORDERABLES Florinda l Result Performing Organization Address City/[facility] Co de Phone Number [facility] Department [place] [address] * (ABNORMAL) Phosphorus (08/08/2024 5:15 AM CDT) Phosphorus, pl 10.8(H) 2.3 - 4.5 mg/dL Blood 08/08/2024 5:15 AM CDT 08/08/2024 6:36 AM CDT Royal Weiss MD LAB BLOOD ORDERABLES Florinda l Result [facility] [place] [address] * Magnesium (08/08/2024 5:15 AM CDT) Magnesium 2.3 1.4 - 2.5 mg/dL Blood 08/08/2024 5:15 AM CDT 08/08/2024 6:36 AM CDT Royal Weiss MD LAB BLOOD ORDERABLES Florinda l Result [facility] Department [place] [address] * (ABNORMAL) Basic metabolic panel (08/08/2024 5:15 AM CDT) Sodium 130(L) 135 - 145 mmol/L Potassium, pl 4.8 3.3 - 4.9 mmol/L [facility] Chloride 99 97 - 110 mmol/L [facility] CO2 19(L) 22 - 32 mmol/L [facility] Anion gap 12 2 - 15 mmol/L [facility] BUN 74(H) 6 - 25 mg/dL [facility] Creatinine 6.41(H) 0.60 - 1.10 mg/dL [facility] Glucose 87 70 - 199 mg/dL [facility] Comment: Interpretive Data Fasting glucose >/= 126 [...] 2022. Calcium 7.3(L) 8.5 - 10.3 mg/dL [facility] Blood 08/08/2024 5:15 AM CDT 08/08/2024 6:36 AM CDT Royal Weiss MD LAB BLOOD ORDERABLES Florinda l Result [facility] [place] [address] * POCT glucose (08/08/2024 3:59 AM CDT) Glucose, POC 84 70 - 199 mg/dL Blood 08/08/2024 3:59 AM CDT 08/08/2024 3:59 AM CDT Royal Weiss MD LAB POCT ORDERABLES - DEV ICE Final Result Performing Organization Address [facility] de Phone Number [facility] [place] [address] * hCG, urine, qualitative (08/08/2024 12:04 AM CDT) HCG, ur Negative Negative Urine 08/08/2024 12:0 4 AM CDT 08/08/2024 1:38 AM CDT us Lalito Rachel MD LAB URINE ORDERABLES Florinda l Result Performing Organization Address [facility] Phone Number [facility] [place] [address] * POCT glucose (08/07/2024 11:38 PM CDT) Glucose, POC 98 70 - 199 mg/dL Blood 08/07/2024 11:3 8 PM CDT 08/07/2024 11:38 PM CDT Royal Weiss MD LAB POCT ORDERABLES - DEV ICE Final Result Performing Organization Address [facility] de Phone Number [facility] [place] [address] * POCT glucose (08/07/2024 9:19 PM CDT) Glucose, POC 76 70 - 199 mg/dL Blood 08/07/2024 9:19 PM CDT 08/07/2024 9:19 PM CDT Royal Weiss MD LAB POCT ORDERABLES - DEV ICE Final Result Performing Organization Address [facility] de Phone Number ARAMIS [facility] Department [place] [address] * (ABNORMAL) POCT glucose (08/07/2024 7:49 PM CDT) Glucose, POC 69(L) 70 - 199 mg/dL Blood 08/07/2024 7:49 PM CDT 08/07/2024 7:49 PM CDT us Royal Weiss MD LAB POCT ORDERABLES - DEV ICE Final Result ARAMIS PRU[facility] [place] [address] * CT Chest Abdomen Pelvis WO Contrast [...] PM CDT) Ventricular Rate EKG/Min 89 BPM [facility] Atrial Rate 89 BPM [facility] MO-Interval (MSEC) 122 ms [facility] QRS-Interval (MSEC) 72 ms [facility] QT-Interval (MSEC) 376 ms [facility] QTc 457 ms [facility] P [place] 57 degrees [facility] R [place] 37 degrees [facility] T [place] 44 degrees [facility] Diagnosis Normal sinus rhythm Low voltage QRS Borderline ECG When compared with ECG of 06-AUG-2024 19:36, QT has lengthened Confirmed by BREANA VENTURA M.D ([id number]) on 08/09/2024 10:48:06 PM [facility] 08/07/2024 12:4 0 PM CDT 08/09/2024 10:48 PM CDT Royal Weiss MD ECG ORDERABLES Final Res ult [facility] * Mycology (fungal) culture and stain Abscess Hand, right (08/07/2024 10:52 AM CDT) Direct Specimen Exam Stain: No Fungal elements seen. Report Final Report: No growth of fungus [facility] Abscess (Hand, right) 08/07/2024 10:52 AM CDT 08/07/2024 11:24 AM CDT Narrative [facility]IS PRUITT - 09/04/2024 8:43 AM CDT Testing performed by [facility] Microbiology Laboratory ([phone]). Royal Weiss MD LAB MICROBIOLOGY - GENERA L ORDERABLES Final Result [facility] Department [place] [address] * (ABNORMAL) Aerobic and anaerobic culture and gram stain Abscess Hand, right (08/07/2024 10:52 AM CDT) Direct Specimen Exam Stain: Moderate polymorphonuclear leukocytes seen. Moderate Gram Positive Cocci Report Final Report: Abundant Staphylococcus aureus Methicillin resistant (MRSA) by penicillin binding protein 2a (PBP2a) testing. (.) [facility] Organism STAPHYLOCOCCUS AUREUS [facility] Abscess (Hand, right) 08/07/2024 10:52 AM CDT 08/07/2024 11:23 AM CDT Narrative [facility]AMIS PRUITT - 08/10/2024 10:51 AM CDT Testing performed by [facility] Microbiology Laboratory ([phone]) Specimens submitted from normally sterile body sites [...] L ORDERABLES Final Result Performing Organization Address [facility] Co de Phone Number [facility] [place] [address] * (ABNORMAL) C4 complement (08/07/2024 8:59 AM CDT) Complement C4 7.8(L) 10.0 - 40.0 mg/dL Blood 08/07/2024 8:59 AM CDT 08/07/2024 9:19 AM CDT Royal Weiss MD LAB BLOOD ORDERABLES Florinda l Result Performing Organization Address [facility] [place] [address] * (ABNORMAL) Erythrocyte sedimentation rate (08/07/2024 8:59 AM CDT) Erythrocyte sedimentation rate 92(H) 1 - 20 mm/hr Blood 08/07/2024 8:59 AM CDT 08/07/2024 9:18 AM CDT Royal Weiss MD LAB BLOOD ORDERABLES Florinda l Result Performing Organization Address [facility] de Phone Number [facility] [place] [address] * (ABNORMAL) C3 complement (08/07/2024 8:59 AM CDT) Complement C3 47.0(L) 90.0 - 180.0 mg/dL Blood 08/07/2024 8:59 AM CDT 08/07/2024 9:19 AM CDT Royal Weiss MD LAB BLOOD ORDERABLES Florinda l Result Performing Organization Address [facility] Co de Phone Number [facility] [place] [address] * (ABNORMAL) CRP (acute phase) (08/07/2024 8:59 AM CDT) CRP 227.5(H) <=10.0 mg/L Blood 08/07/2024 8:59 AM CDT 08/07/2024 9:18 AM CDT Royal Weiss MD LAB BLOOD ORDERABLES Florinda hanson Result [facility] Department [place] [address] * XR Hand Right 3 or More [...] by: Connor Bey M.D. Royal Weiss MD IM XR PROCEDURES Final R esult * XR [...] MD LAB BLOOD ORDERABLES Florinda l Result [facility] [place] [address] * (ABNORMAL) Differential, auto (08/07/2024 6:05 AM CDT) Neutrophil abs 16.64(H) 1.50 - 6.50 K/cumm Imm gran abs 0.61(H) 0.00 - 0.10 K/cumm [facility] Lymphocyte abs 1.86 0.80 - 3.30 K/cumm [facility] Monocyte abs 1.63(H) 0.20 - 0.80 K/cumm [facility] Eosinophil abs 0.16 0.00 - 0.50 K/cumm [facility] Basophil abs 0.06 0.00 - 0.10 K/cumm [facility] Neutrophil pct 79.3 % [facility] Comment: Interpretive Data Percent cell count reference ranges are not reported, since discordance with absolute values may lead to misinterpretation of CBC data. Current Interpretive Data was last revised on 2017. Imm gran pct 2.9 % [facility] Comment: Interpretive Data Percent cell count reference ranges are not reported, since discordance with absolute values may lead to misinterpretation of CBC data. Current Interpretive Data was last revised on 2017. Lymphocyte pct 8.9 % [facility] Comment: Interpretive Data Percent cell count reference ranges are not reported, since discordance with absolute values may lead to misinterpretation of CBC data. Current Interpretive Data was last revised on 2017. Monocyte pct 7.8 % [facility] Comment: Interpretive Data Percent cell count reference ranges are not reported, since discordance with absolute values may lead to misinterpretation of CBC data. Current Interpretive Data was last revised on 2017. Eosinophil pct 0.8 % [facility] Comment: Interpretive Data Percent cell count reference ranges are not reported, since discordance with absolute values may lead to misinterpretation of CBC data. Current Interpretive Data was last revised on 2017. Basophil pct 0.3 % [facility] Comment: Interpretive Data Percent cell count reference ranges are not reported, since discordance with absolute values may lead to misinterpretation of CBC data. Current Interpretive Data was last revised on 2017. Blood 08/07/2024 6:05 AM CDT 08/07/2024 6:22 AM CDT us Royal Weiss MD LAB BLOOD ORDERABLES Florinda hanson Result [facility] [place] [address] * (ABNORMAL) CBC with auto differential (08/07/2024 6:05 AM CDT) WBC 20.96(H) 3.80 - 9.90 K/cumm Hgb 8.1(L) 11.9 - 15.5 g/dL [facility] Hct 23.8(L) 35.6 - 45.5 % [facility] Plt 319 150 - 400 K/cumm [facility] MPV 12.0 9.1 - 12.3 fL [facility] RBC 3.13(L) 3.90 - 5.20 M/cumm [facility] MCV 76.0(L) 81.3 - 96.4 fL [facility] MCH 25.9(L) 27.1 - 33.3 pg [facility] MCHC 34.0 32.3 - 35.7 g/dL [facility] RDW CV 17.2(H) 11.1 - 14.9 % [facility] RDW SD 47.2 35.7 - 48.1 fL [facility] NRBC abs 0.00 0.00 - 0.01 K/cumm [facility] Morphologic Screen Results confirmed by manual morphology review. [facility] Blood 08/07/2024 6:05 AM CDT 08/07/2024 6:22 AM CDT Royal Weiss MD LAB BLOOD ORDERABLES Edit ed Result - Final Performing Organization Address City/[facility]/ZIP Co de Phone Number [facility] [place] [address] * (ABNORMAL) Erythrocyte sedimentation rate (08/07/2024 6:05 AM CDT) Pathologist [facility] Erythrocyte sedimentation rate 94(H) 1 - 20 mm/hr Blood 08/07/2024 6:05 AM CDT 08/07/2024 6:26 AM CDT Royal Weiss MD LAB BLOOD ORDERABLES Florinda l Result [facility] [place] [address] * (ABNORMAL) CRP (acute phase) (08/07/2024 6:05 AM CDT) [facility] CRP 224.5(H) <=10.0 mg/L Comment:Repeated on Dilution Blood 08/07/2024 6:05 AM CDT 08/07/2024 6:22 AM CDT Royal Weiss MD LAB BLOOD ORDERABLES Florinda l Result Performing Organization Address City/[facility] Co de Phone Number [facility] [place] [address] * (ABNORMAL) Phosphorus (08/07/2024 6:05 AM CDT) [facility] Phosphorus, pl 8.8(H) 2.3 - 4.5 mg/dL Blood 08/07/2024 6:05 AM CDT 08/07/2024 6:22 AM CDT Royal Weiss MD LAB BLOOD ORDERABLES Florinda l Result Performing Organization Address [facility] Co de Phone Number [facility] Department [place] [address] * Magnesium (08/07/2024 6:05 AM CDT) [facility] Magnesium 2.3 1.4 - 2.5 mg/dL Blood 08/07/2024 6:05 AM CDT 08/07/2024 6:22 AM CDT Royal Weiss MD LAB BLOOD ORDERABLES Florinda l Result Performing Organization Address [facility] Co de Phone Number [facility] [place] [address] * (ABNORMAL) Basic metabolic panel (08/07/2024 6:05 AM CDT) [facility] Sodium 130(L) 135 - 145 mmol/L Potassium, pl 3.9 3.3 - 4.9 mmol/L [facility] Chloride 97 97 - 110 mmol/L [facility] CO2 19(L) 22 - 32 mmol/L [facility] Anion gap 14 2 - 15 mmol/L [facility] BUN 62(H) 6 - 25 mg/dL [facility] Creatinine 5.12(H) 0.60 - 1.10 mg/dL [facility] Glucose 104 70 - 199 mg/dL [facility] Comment: Interpretive Data Fasting glucose >/= 126 [...] 2022. Calcium 6.9(L) 8.5 - 10.3 mg/dL [facility] Blood 08/07/2024 6:05 AM CDT 08/07/2024 6:22 AM CDT us Royal Weiss MD LAB BLOOD ORDERABLES Florinda l Result Performing Organization Address City/[facility]/ZIP Co de Phone Number [facility] [place] [address] * Transfuse RBC (08/06/2024 11:46 PM CDT) Blood Royal Weiss MD BLOOD TRANSFUSION ORDERAB LES Final Result Performing Organization Address [facility]/ZIP Co de Phone Number [facility] [place] [address] * Prepare RBC: 1 Units (08/06/2024 8:04 PM CDT) [facility] Product code [id number] Unit Number [id number] [facility] Product Blood Type APOS [facility] Dispense Status PRESUMED TRANSFUSED [facility] Blood 08/06/2024 8:04 PM CDT 08/06/2024 8:04 PM CDT Narrative [facility] - 08/07/2024 4:00 PM CDT Are special requirements needed? (All products are leukoreduced and CMV- safe)- >No Date required:-[id number] LRRBC # of [id number] Reasons:-Hgb <7 g/dL} us Royal Weiss MD BLOOD BANK PRODUCT ORDERA BLES Final Result Performing Organization Address City/[facility]/ZIP Co de Phone Number [facility] [place] [address] * ECG 12 lead (08/06/2024 7:36 PM CDT) [facility] Ventricular Rate EKG/Min 70 BPM [facility] Atrial Rate 70 BPM [facility] MO-Interval (MSEC) 136 ms [facility] QRS-Interval (MSEC) 72 ms [facility] QT-Interval (MSEC) 362 ms [facility] QTc 390 ms [facility] P [place] -28 degrees [facility] R [place] 46 degrees [facility] T [place] 50 degrees [facility] Diagnosis Normal sinus rhythm with sinus arrhythmia Normal ECG When compared with ECG of 05-AUG-2024 23:21, Vent. rate has decreased BY 55 BPM Confirmed by BREANA VENTURA M.D ([id number]) on 08/07/2024 11:26:58 AM [facility] 08/06/2024 7:36 PM CDT 08/07/2024 11:26 AM CDT us Royal Weiss MD ECG ORDERABLES Final Res ult Performing Organization Address City/[facility]/ZIP Co de Phone Number [facility] * (ABNORMAL) Differential, auto (08/06/2024 6:45 PM CDT) Neutrophil abs 12.89(H) 1.50 - 6.50 K/cumm Imm gran abs 0.61(H) 0.00 - 0.10 K/cumm [facility] Lymphocyte abs 1.83 0.80 - 3.30 K/cumm [facility] Monocyte abs 1.52(H) 0.20 - 0.80 K/cumm [facility] Eosinophil abs 0.13 0.00 - 0.50 K/cumm [facility] Basophil abs 0.11(H) 0.00 - 0.10 K/cumm [facility] Neutrophil pct 75.4 % [facility] Comment: Interpretive Data Percent cell count reference ranges are not reported, since discordance with absolute values may lead to misinterpretation of CBC data. Current Interpretive Data was last revised on 2017. Imm gran pct 3.6 % [facility] Comment: Interpretive Data Percent cell count reference ranges are not reported, since discordance with absolute values may lead to misinterpretation of CBC data. Current Interpretive Data was last revised on 2017. Lymphocyte pct 10.7 % [facility] Comment: Interpretive Data Percent cell count reference ranges are not reported, since discordance with absolute values may lead to misinterpretation of CBC data. Current Interpretive Data was last revised on 2017. Monocyte pct 8.9 % [facility] Comment: Interpretive Data Percent cell count reference ranges are not reported, since discordance with absolute values may lead to misinterpretation of CBC data. Current Interpretive Data was last revised on 2017. Eosinophil pct 0.8 % [facility] Comment: Interpretive Data Percent cell count reference ranges are not reported, since discordance with absolute values may lead to misinterpretation of CBC data. Current Interpretive Data was last revised on 2017. Basophil pct 0.6 % [facility] [facility] Comment: Interpretive Data Percent cell count reference ranges are not reported, since discordance with absolute values may lead to misinterpretation of CBC data. Current Interpretive Data was last revised on 2017. Blood 08/06/2024 6:45 PM CDT 08/06/2024 7:38 PM CDT Royal Weiss MD LAB BLOOD ORDERABLES Florinda l Result Performing Organization Address [facility] Co de Phone Number [facility] [place] [address] * (ABNORMAL) CBC with auto differential (08/06/2024 6:45 PM CDT) WBC 17.09(H) 3.80 - 9.90 K/cumm Hgb 6.9(L) 11.9 - 15.5 g/dL [facility] Hct 19.5(L) 35.6 - 45.5 % [facility] Plt 289 150 - 400 K/cumm [facility] MPV 11.6 9.1 - 12.3 fL [facility] RBC 2.61(L) 3.90 - 5.20 M/cumm [facility] MCV 74.7(L) 81.3 - 96.4 fL [facility] MCH 26.4(L) 27.1 - 33.3 pg [facility] MCHC 35.4 32.3 - 35.7 g/dL [facility] RDW CV 17.5(H) 11.1 - 14.9 % [facility] RDW SD 46.9 35.7 - 48.1 fL [facility] NRBC abs 0.00 0.00 - 0.01 K/cumm [facility] Blood 08/06/2024 6:45 PM CDT 08/06/2024 7:38 PM CDT Royal Weiss MD LAB BLOOD ORDERABLES Florinda l Result [facility] [place] [address] * TRANSTHORACIC ECHO (TTE) COMPLETE W DOPPLER/CF WO CONTRAST W BUBBLE (08/06/2024 4:54 PM CDT) LV EF 60-65 % CONS SCIMAGE Anatomical Region Laterality Modality Ultrasound 08/06/2024 3:24 PM CDT Narrative 08/06/2024 5:34 PM CDT [facility] [place] [address] Transthoracic Echocardiographic Report Patient Name: TIFFANY MILLER T : 1995 (28y 11m) Gender: F Study Date: 08/06/2024 03:24:38 PM Ht(Inch): 67 Wt(Lb): 169.97 BSA: 1.91 [place] Cook: Timothy Gonzalez [facility] Location: [id number] Order Provider: ROYAL WEISS Heart Rate: 112 [...] Procedure Note Eric Leonard MD - 08/06/2024 [facility] [place] [address] Transthoracic Echocardiographic Report Patient Name: TIFFANY MILLER T : 1995 (28y 11m) Gender: F Study Date: 08/06/2024 03:24:38 PM Ht(Inch): 67 Wt(Lb): 169.97 BSA: 1.91 [place] Cook: Timothy Gonzalez [facility] Location: [id number] Order Provider:ROYAL WEISS Heart Rate: 112 BMI: [...] ORDERAB LES Final Result Performing Organization Address City/State/[facility] [place] [address] * Prepare RBC: 1 Units (08/06/2024 7:43 AM CDT) [facility] Product code [id number] Unit Number [id number] * [facility] Product Blood Type APOS [facility] Dispense Status PRESUMED TRANSFUSED [facility] Blood 08/06/2024 7:43 AM CDT 08/06/2024 7:43 AM CDT Narrative [facility] - 08/06/2024 9:01 PM CDT Are special requirements needed? (All products are leukoreduced and CMV- safe)- >No Date required:-[id number] LRRBC # of [id number] Reasons:-Hgb <7 g/dL} us Royal Weiss MD BLOOD BANK PRODUCT ORDERA BLES Final Result Performing Organization Address [facility] [place] [address] * (ABNORMAL) Hemoglobin and hematocrit (08/06/2024 6:46 AM CDT) [facility] Hgb 6.4(C) 11.9 - 15.5 g/dL Comment:This result has been called to Sheyla Zaman RN by [id number] on 08/06/2024 07:28:25, and has been read back. Hct 19.1(L) 35.6 - 45.5 % [facility] Blood 08/06/2024 6:46 AM CDT 08/06/2024 6:55 AM CDT Royal Weiss MD LAB BLOOD ORDERABLES Florinda l Result Performing Organization Address [facility] [place] [address] * aPTT (08/06/2024 6:46 AM CDT) aPTT 33 28 - 38 sec Comment: Interpretive Data Heparin therapeutic range: 66.0 - 100.0 seconds. Range based on correlation with therapeutic heparin activity range of 0.3 - 0.7 Units/mL. Current interpretive data was last revised on 2023. Blood 08/06/2024 6:46 AM CDT 08/06/2024 7:12 AM CDT Royal Weiss MD LAB BLOOD ORDERABLES Florinda l Result [facility] [place] [address] * (ABNORMAL) Protime-INR (08/06/2024 6:46 AM CDT) PT 16.7(H) 9.7 - 13.0 sec INR 1.53(H) 0.90 - 1.20 [facility] Comment: Interpretive data Oral anticoagulant therapeutic ranges: Venous thromboembolism prophylaxis or treatment: 2.0-3.0 CARDIOLOGY Standard range: 2.0-3.0 High-intensity range: 2.5-3.5 Refer to indication-specific guidelines for appropriate target ranges for prosthetic heart valve replacement. Current interpretive data was last revised on 2019. Blood 08/06/2024 6:46 AM CDT 08/06/2024 7:12 AM CDT Royal Weiss MD LAB BLOOD ORDERABLES Florinda l Result [facility] [place] [address] * Fibrinogen (08/06/2024 6:46 AM CDT) Fibrinogen 372 170 - 400 mg/dL Blood 08/06/2024 6:46 AM CDT 08/06/2024 7:12 AM CDT Royal Weiss MD LAB BLOOD ORDERABLES Florinda l Result Performing Organization Address City/[facility] Co de Phone Number [facility] [place] [address] * hCG, blood, quantitative (08/06/2024 6:46 AM CDT) hCG, quant <5.0 0.0 - 5.0 IUnits/L [...] ORDERABLES Florinda l Result Performing Organization Address [facility] de Phone Number [facility] [place] [address] * (ABNORMAL) Lactate dehydrogenase (LD) (08/06/2024 6:46 AM CDT) Lactate dehydrogenase (LDH) 339(H) 100 - 250 Units/L Blood 08/06/2024 6:46 AM CDT 08/06/2024 6:55 AM CDT Royal Weiss MD LAB BLOOD ORDERABLES Florinda l Result Performing Organization Address City/[facility] Co de Phone Number [facility] [place] [address] * (ABNORMAL) Haptoglobin (08/06/2024 6:46 AM CDT) Haptoglobin 325.0(H) 30.0 - 200.0 mg/dL Blood 08/06/2024 6:46 AM CDT 08/06/2024 6:55 AM CDT Royal Weiss MD LAB BLOOD ORDERABLES Florinda l Result Performing Organization Address [facility] de Phone Number [facility] [address] * Oxyhemoglobin, central venous (08/06/2024 4:58 AM CDT) Pathologist [facility] Oxyhemoglobin, CV 86.8 % Comment: Interpretive Data No reference range established. Current interpretive data was last revised 2019. Blood 08/06/2024 4:58 AM CDT 08/06/2024 5:34 AM CDT Royal Weiss MD LAB BLOOD ORDERABLES Florinda l Result Performing Organization Address [facility] de Phone Number [facility] [place] [address] * Sepsis Lactate w/ Reflex (08/06/2024 4:58 AM CDT) [facility] Sepsis Lactate 1.6 0.7 - 2.0 mmol/L Blood 08/06/2024 4:58 AM CDT 08/06/2024 5:34 AM CDT Dawn Mcmanus MD LAB BLOOD ORDERABLES Fin al Result Performing Organization Address [facility] de Phone Number [facility] [place] [address] * (ABNORMAL) eGFR (08/06/2024 4:58 AM CDT) eGFR 15(L) >=60 mL/min/1. 73 m2 Comment: [...] MD LAB BLOOD ORDERABLES Florinda hanson Result [facility] [place] [address] * (ABNORMAL) Differential, auto (08/06/2024 4:58 AM CDT) Neutrophil abs 18.99(H) 1.50 - 6.50 K/cumm Imm gran abs 1.08(H) 0.00 - 0.10 K/cumm [facility] Lymphocyte abs 1.55 0.80 - 3.30 K/cumm [facility] Monocyte abs 1.69(H) 0.20 - 0.80 K/cumm [facility] Eosinophil abs 0.17 0.00 - 0.50 K/cumm [facility] Basophil abs 0.13(H) 0.00 - 0.10 K/cumm [facility] Neutrophil pct 80.3 % [facility] Comment: Interpretive Data Percent cell count reference ranges are not reported, since discordance with absolute values may lead to misinterpretation of CBC data. Current Interpretive Data was last revised on 2017. Imm gran pct 4.6 % [facility] Comment: Interpretive Data Percent cell count reference ranges are not reported, since discordance with absolute values may lead to misinterpretation of CBC data. Current Interpretive Data was last revised on 2017. Lymphocyte pct 6.6 % [facility] Comment: Interpretive Data Percent cell count reference ranges are not reported, since discordance with absolute values may lead to misinterpretation of CBC data. Current Interpretive Data was last revised on 2017. Monocyte pct 7.2 % [facility] Comment: Interpretive Data Percent cell count reference ranges are not reported, since discordance with absolute values may lead to misinterpretation of CBC data. Current Interpretive Data was last revised on 2017. Eosinophil pct 0.7 % [facility] Comment: Interpretive Data Percent cell count reference ranges are not reported, since discordance with absolute values may lead to misinterpretation of CBC data. Current Interpretive Data was last revised on 2017. Basophil pct 0.6 % [facility] Comment: Interpretive Data Percent cell count reference ranges are not reported, since discordance with absolute values may lead to misinterpretation of CBC data. Current Interpretive Data was last revised on 2017. Blood 08/06/2024 4:58 AM CDT 08/06/2024 5:39 AM CDT Royal Weiss MD LAB BLOOD ORDERABLES Florinda l Result [facility] [place] [address] * HIV 1/2 Antibody plus p24 Antigen [...] - GENERA L ORDERABLES Final Result [facility] [place] [address] * (ABNORMAL) CBC with auto differential (08/06/2024 4:58 AM CDT) [facility] WBC 23.61(H) 3.80 - 9.90 K/cumm Hgb 6.6(L) 11.9 - 15.5 g/dL [facility] Hct 19.7(L) 35.6 - 45.5 % [facility] Plt 280 150 - 400 K/cumm [facility] MPV 11.8 9.1 - 12.3 fL [facility] RBC 2.63(L) 3.90 - 5.20 M/cumm [facility] MCV 74.9(L) 81.3 - 96.4 fL [facility] MCH 25.1(L) 27.1 - 33.3 pg [facility] MCHC 33.5 32.3 - 35.7 g/dL [facility] RDW CV 17.7(H) 11.1 - 14.9 % [facility] RDW SD 47.1 35.7 - 48.1 fL [facility] NRBC abs 0.00 0.00 - 0.01 K/cumm [facility] Morphologic Screen Results confirmed by manual morphology review. [facility] Blood 08/06/2024 4:58 AM CDT 08/06/2024 5:39 AM CDT Royal Weiss MD LAB BLOOD ORDERABLES Edit ed Result - Final [facility] PRU[facility] [place] [address] * Lactate, whole blood (08/06/2024 4:58 AM CDT) Pathologist [facility] Lactate, bld 1.6 0.7 - 2.0 mmol/L Blood 08/06/2024 4:58 AM CDT 08/06/2024 5:34 AM CDT Royal Weiss MD LAB BLOOD ORDERABLES Florinda l Result Performing Organization Address [facility] de Phone Number [facility] [place] [address] * (ABNORMAL) Hepatitis panel, acute Blood (08/06/2024 4:58 AM CDT) [facility] Hep A IgM Nonreactive Nonreactive Hep B core IgM Nonreactive Nonreactive [facility] Hep C Ab Reactive(A) Nonreactive [facility] Comment: Reactive for HCV antibodies. This may represent current or past HCV infection. Supplemental molecular testing will be automatically performed to determine current infection status in accordance with current CDC screening recommendations. Current interpretive data was last revised on 21 HepBsAg Nonreactive Nonreactive [facility] Blood 08/06/2024 4:58 AM CDT 08/06/2024 5:38 AM CDT Royal Weiss MD LAB MICROBIOLOGY - GENERA L ORDERABLES Final Result Performing Organization Address [facility] de Phone Number [facility] [place] [address] * Hepatitis C (HCV) RNA PCR, quantitative Blood (08/06/2024 4:58 AM CDT) [facility] HCV RNA result Not Detected [facility] Comment: The quantifiable range of this assay is 15 IU/mL to 100,000,000 IU/mL (1.18 log IU/mL to 8.00 log IU/mL). Testing was performed by the [employer]AMOD 6800 HCV Test ([employer] Testing performed at [facility] Current Interpretive Data was last revised on 2020 Blood 08/06/2024 4:58 AM CDT 08/06/2024 5:44 AM CDT Royal Weiss MD LAB MICROBIOLOGY - GENERA L ORDERABLES Final Result Performing Organization Address [facility] Co de Phone Number [facility] [place] [address] BJ * RPR Blood (08/06/2024 4:58 AM CDT) Pathologist [facility] RPR Nonreactive Nonreactive Blood 08/06/2024 4:58 AM CDT 08/06/2024 5:38 AM CDT Royal Weiss MD LAB MICROBIOLOGY - GENERA L ORDERABLES Final Result Performing Organization Address [facility] de Phone Number [facility] [place] [address] * Type and screen (08/06/2024 4:58 AM CDT) [facility] Marybeth, indirect Negative ABO Rh A Positive [facility] Blood 08/06/2024 4:58 AM CDT 08/06/2024 5:50 AM CDT Narrative [facility] - 08/06/2024 6:55 AM CDT Has the patient had Daratumumab or Isatuximab in the past 6 months?->Unknown Jose Rafael Lara Chi, MD LAB BLOOD BANK TEST ORDER MARTINEZ Final Result Performing Organization Address [facility] Co de Phone Number [facility] [place] [address] * (ABNORMAL) Phosphorus (08/06/2024 4:58 AM CDT) Pathologist [facility] Phosphorus, pl 7.0(H) 2.3 - 4.5 mg/dL Blood 08/06/2024 4:58 AM CDT 08/06/2024 5:39 AM CDT Royal Weiss MD LAB BLOOD ORDERABLES Florinda l Result [facility] [place] [address] * Magnesium (08/06/2024 4:58 AM CDT) [facility] Magnesium 2.2 1.4 - 2.5 mg/dL Blood 08/06/2024 4:58 AM CDT 08/06/2024 5:39 AM CDT Royal Weiss MD LAB BLOOD ORDERABLES Florinda l Result Performing Organization Address [facility] de Phone Number [facility] [place] [address] * (ABNORMAL) Basic metabolic panel (08/06/2024 4:58 AM CDT) [facility] Sodium 127(L) 135 - 145 mmol/L Potassium, pl 3.7 3.3 - 4.9 mmol/L [facility] Chloride 95(L) 97 - 110 mmol/L [facility] CO2 21(L) 22 - 32 mmol/L [facility] Anion gap 11 2 - 15 mmol/L [facility] BUN 54(H) 6 - 25 mg/dL [facility] Creatinine 4.05(H) 0.60 - 1.10 mg/dL [facility] Glucose 119 70 - 199 mg/dL [facility] Comment: Interpretive Data Fasting glucose >/= 126 [...] 2022. Calcium 7.0(L) 8.5 - 10.3 mg/dL [facility] Blood 08/06/2024 4:58 AM CDT 08/06/2024 5:39 AM CDT Royal Weiss MD LAB BLOOD ORDERABLES Florinda hanson Result [facility] [place] [address] * [place] INSJ NON-TUNNELED CENTRAL VENOUS CATH AGE 5 YR/> (08/06/2024 4:18 AM CDT) Narrative Jose Rafael Montes MD - 08/06/2024 4:18 AM CDT Jose Rafael Montes MD 08/06/2024 11:12 AM Central Line Insertion Date/Time: 08/06/2024 4:18 AM Performed by: Lauren Garg MD Authorized by: Lauren Garg MD [place] Protocol: RN Notified of Procedure: yes Informed consent: Risks, benefits, alternatives discussed and patient/appeals representative/guardian agrees and accepts Patient's stated name/ [...] and agrees with it. Electronically signed by: Gwendolny Galdamez M.D. Narrative 08/06/2024 9:03 AM CDT [...] it. Electronically signed by: Gwendolyn Galdamez M.D. Royal Weiss MD [facility] XR PROCEDURES Final R esult * US Kidney Complete (08/06/2024 3:20 AM CDT) Anatomical Region Laterality Modality Kidney N/A Ultrasound 08/06/2024 6:3 6 AM CDT Impressions 08/06/2024 6:36 AM CDT [...] effusion. Electronically signed by: Jaya Orozco M.D. Royal Weiss MD [facility] US PROCEDURES Final R esult * ECG 12 lead (08/05/2024 11:21 PM CDT) Ventricular Rate EKG/Min 125 BPM [facility] Atrial Rate 125 BPM [facility] MO-Interval (MSEC) 122 ms [facility] QRS-Interval (MSEC) 70 ms [facility] QT-Interval (MSEC) 308 ms [facility] QTc 444 ms [facility] P [place] 54 degrees [facility] R [place] 38 degrees [facility] T [place] 36 degrees [facility] Diagnosis Sinus tachycardia Possible Left atrial enlargement Nonspecific ST abnormality Abnormal ECG No previous ECGs available Confirmed by HAJA CORREA M.D ([id number]) on 08/06/2024 11:01:34 AM [facility] 08/05/2024 11:2 1 PM CDT 08/06/2024 11:01 AM CDT us Jose Rafael Lara Chi, MD ECG ORDERABLES Final Res ult [facility] * [place] CRITICAL CARE ILL/INJURED PATIENT INIT 30-74 MIN [...] IN CLINIC/BEDSIDE ORDERAB LES Final Result * [place] ARTL CATHJ/CANNULJ MNTR/TRANSFUSION SPX PRQ (08/05/2024 10:18 PM CDT) Narrative Alli Matute MD - 08/05/2024 10:18 PM CDT Alli Matute MD 08/05/2024 10:36 PM Arterial line Date/Time: 08/05/2024 10:18 PM Performed by: Alex Silveira MD Authorized by: Amando Briggs MD [place] Protocol: RN Notified of Procedure: yes Informed [...] and matched to patient identification: n/a Responsible democrat for transporting specimen(s) to lab determined: n/a [...] Conf, Ur Confirmed Positive(A) Cutoff 1 ng/mL [facility] Acrylfentanyl Conf, Ur Does Not Confirm Cutoff 1 ng/mL [facility] Furanylfentanyl Conf, Ur Does Not Confirm Cutoff 1 ng/mL [facility] Fentanyl Metabolite (Norfentanyl) Conf, Ur Confirmed Positive(A) CutOff 5 ng/mL [facility] Xylazine MS Confirmed Positive(A) Cutoff 1 ng[facility] Comment: Interpretive Data This test detects the presence or absence of drug compounds using LC Tandem mass spectrometry and is not intended to assess compliance with prescribed medications. While this test is highly specific, false positive and false negative results may occur in very rare circumstances. Contact the laboratory for consultation, if needed. Performance characteristics were determined by the [facility] in a manner consistent with CLIA requirement and has not been cleared or approved by the U.S. Food and Drug Administration. Current interpretive data was last revised 2020. Urine 08/05/2024 9:25 PM CDT 08/05/2024 9:52 PM CDT Brielle Monique MD LAB URINE ORDERABLES Fin al Result [facility] Department [place] [address] * (ABNORMAL) Drugs of Abuse Screen, Urine with Reflex Confirmation (08/05/2024 9:25 PM CDT) Pathologist [facility] Amphetamine, ur Screen Positive, presumptive (A) CutOff 500ng/mL Comment: Interpretive Data - Amphetamines: Samples containing greater than 500 ng/mL d-methamphetamine or other cross-reacting amphetamine compounds are reported as positive. Amphetamine immunoassays are subject to significant false positive rates due to cross-reactivity of non-amphetamine drugs. Confirmatory testing required for definitive results. Current Interpretive Data was last reviewed 2022. Barbiturates, ur Not Detected CutOff 200ng/mL [facility] Comment: Interpretive Data - Barbiturates: Samples containing greater than 200 ng/mL secobarbital or other cross-reacting barbiturate compounds are reported as positive. False positive and false negative results are possible. Confirmatory testing required for definitive results. Current Interpretive Data was last reviewed 2022. Benzodiazepines, ur Screen Positive, presumptive (A) CutOff 100ng/mL [facility] Comment: Interpretive Data - Benzodiazepines: Samples containing greater than 100 ng/mL nordiazepam or other cross-reacting compounds are reported as positive. False positive and false negative results are possible. Confirmatory testing required for definitive results. Current Interpretive Data was last reviewed 2022. Cannabinoids, ur Screen Positive, presumptive (A) CutOff 50 ng/mL [facility] Comment: Interpretive Data - Cannabinoids: Samples containing greater than 50 ng/mL delta-9 THC -COOH or other cross- reacting compounds are reported as positive. False positive and false negative results are possible. Confirmatory testing required for definitive results. Current Interpretive Data was last reviewed 2022. Cocaine, ur Not Detected CutOff 150ng/mL [facility] Comment: Interpretive Data - Cocaine: Samples containing greater than 150 ng/mL benzoylecgonine or other cross- reacting compounds are reported as positive. False positive and false negative results are possible. Confirmatory testing required for definitive results. Current Interpretive Data was last reviewed 2022. Fentanyl, Ur Screen Positive, presumptive (A) CutOff 5 ng/mL [facility] Comment: Interpretive Data - Fentanyl: Samples containing greater than 5 ng/mL norfentanyl, fentanyl, or other cross-reacting fentanyl compounds are reported as positive. False positive and false negative results are possible. Confirmatory testing required for definitive results. Current Interpretive Data was last reviewed 2023. Methadone, ur Not Detected CutOff 300ng/mL [facility] Comment: Interpretive Data - Methadone: Samples containing [...] 2022. Oxycodone, ur Not Detected CutOff 100ng/mL [facility] Comment: Interpretive Data - Oxycodone: Samples containing greater than 100 ng/mL oxycodone or other cross-reacting compounds are reported as positive. False positive and false negative results are possible. Confirmatory testing required for definitive results. Current Interpretive Data was last reviewed 2022. Phencyclidine, ur Not Detected CutOff 25 ng/mL [facility] Comment: Interpretive Data - Phencyclidine: Samples containing greater than 25 ng/mL phencyclidine or other cross-reacting compounds are reported as positive. False positive and false negative results are possible. Confirmatory testing required for definitive results. Current Interpretive Data was last reviewed 2022. Urine Creatinine 198 mg/dL [facility] Comment: Interpretive Data Urine Creatinine: < 10 mg/dL is extremely dilute = or > 10 but < 20 mg/dL is dilute = or > 20 mg/dL is normal Current Interpretive Data was last revised on 2017. Urine 08/05/2024 9:25 PM CDT 08/05/2024 9:52 PM CDT Narrative [facility] - 08/05/2024 10:22 PM CDT Drug of Abuse screening is performed by immunoassay for medical purposes only. This is not to be used for Pain Management purposes. If Detected, confirmation testing will be performed for Amphetamines, Cocaine, Fentanyl, Methadone, Opiates, Oxycodone or Phencyclidine. Brielle Monique MD LAB URINE ORDERABLES Fin al Result [facility] [place] [address] * (ABNORMAL) Urinalysis reflex to microscopic and culture Urine (08/05/2024 9:25 PM CDT) Color, ur Cherise Yellow Clarity, ur Turbid(A) Clear [facility] Specific gravity, ur 1.024 1.003 - 1.030 [facility] pH, urine 6.0 [facility] Comment: Interpretive Data U rine pH is affected by diet, medications, systemic acid-base disturbances, and renal tubular function. pH may affect urinary stone formation. For example, urine pH below 6.0 may help reduce the tendency for calcium phosphate stones and pH greater than 6.0 may reduce the tendency for uric acid stone formation. Source: [facility] Current Interpretive Data was last revised on 2017 Protein, ur ql 3+(A) Negative [facility] Glucose, ur ql Trace(A) Negative [facility] Ketones, ur Negative Negative [facility] Bilirubin, ur Negative Negative [facility] Blood, ur 3+(A) Negative [facility] Urobilinogen, ur <2.0 <2.0 mg/dL [facility] Nitrite, ur Negative Negative [facility] Leukocyte esterase, ur 3+(A) Negative [facility] UA reflex comment Reflex to microscopic UA will be performed. [facility] Urine 08/05/2024 9:25 PM CDT 08/05/2024 9:32 PM CDT Brielle Monique MD LAB MICROBIOLOGY - GENER AL ORDERABLES Final Result [facility] [place] [address] * (ABNORMAL) Amphetamine Confirmation, Urine (08/05/2024 9:25 PM CDT) Amphetamine Conf, Ur Confirmed Positive(A) CutOff 150ng/mL Methamphetamine Conf, Ur Confirmed Positive(A) CutOff 150ng/mL [facility] MDA Conf, Ur Does Not Confirm CutOff 150ng/mL [facility] MDMA Conf, Ur Does Not Confirm CutOff 50 ng/mL [facility] MDEA Conf, Ur Does Not Confirm CutOff 150ng/mL [facility] MBDB Conf, Ur Does Not Confirm CutOff 150ng/mL [facility] Comment: Interpretive Data This test detects the presence or absence of drug compounds using LC Tandem mass spectrometry. While this test is highly specific, false positive and false negative results may occur in very rare circumstances. Contact the laboratory for consultation, if needed. Performance characteristics were determined by the [facility] in a manner consistent with CLIA requirement and has not been cleared or approved by the U.S. Food and Drug Administration. Current interpretive data was last revised on 2020. Urine 08/05/2024 9:25 PM CDT 08/05/2024 9:52 PM CDT Brielle Monique MD LAB URINE ORDERABLES Fin al Result Performing Organization Address [facility] de Phone Number [facility] [place] [address] * (ABNORMAL) Urinalysis, microscopic only (08/05/2024 9:25 PM CDT) WBC, ur >50(A) 0 - 5 /HPF RBC, ur >50(A) 0 - 2 /HPF [facility] Epithelial cells, squamous, ur 6-10(A) 0 - 5 /HPF [facility] Comment:Suggestive of contam ination. Consider recollection by clean catch. Bacteria, ur 4+(A) [facility] Culture Reflex Comment Reflex to urine culture will be performed. [facility] Urine 08/05/2024 9:25 PM CDT 08/05/2024 9:32 PM CDT Brielle Monique MD LAB URINE ORDERABLES Fin al Result Performing Organization Address [facility] de Phone Number [facility] Department [place] [address] * Urine culture Urine (08/05/2024 9:25 PM CDT) Report Final Report: Growth indicative of contamination with periurethral melissa. Please submit a new specimen with special attention given to the collection process and to prompt transport to the laboratory. Organism GROWTH INDICATES CONTAM WITH PERIURETHRAL MELISSA. [facility] Urine 08/05/2024 9:25 PM CDT 08/05/2024 11:10 PM CDT N[facility]ative [facility] - 08/07/2024 11:38 AM CDT Urine culture reflexed based upon urinalysis results. Testing performed by [facility] Microbiology Laboratory ([phone]) Brielle Monique MD LAB MICROBIOLOGY - GENER AL ORDERABLES Final Result [facility] Department [place] [address] * (ABNORMAL) Sepsis Lactate w/ Reflex (08/05/2024 8:51 PM CDT) Sepsis Lactate 9.0(C) 0.7 - 2.0 mmol/L Blood 08/05/2024 8:51 PM CDT 08/05/2024 8:56 PM CDT us Dawn Mcmanus MD LAB BLOOD ORDERABLES Fin al Result Performing Organization Address City/[facility] Co de Phone Number [facility] [place] [address] * Critical Result Callback Chemistry (08/05/2024 8:51 PM CDT) Date Notified [id number] Time Notified 2101 [facility] TestName Sepsis Lactate [facility] PRUITT Called/Read Back Brielle YING Credentials MD [facility] PRUITT Called By CLAUDIA PRUITT Blood 08/05/2024 8:51 PM CDT 08/05/2024 8:56 PM CDT us Dawn Mcmanus MD LAB BLOOD ORDERABLES Fin al Result Performing Organization Address City/[facility]/ZIP Co de Phone Number [facility] Department [place] [address] * (ABNORMAL) Troponin I high-sensitivity 2-hour (08/05/2024 7:44 PM CDT) Trop I hs 67(H) <=17 ng/L Comment: Interpretive Data For further hscTnI resources including the diagnostic algorithm and an aid in interpretation, copy and paste this link: https://bjhlab.testcatalog.org/show/hsTrop-1 Current Interpretive Data last revised 2019. Trop I hs delta -10(C) ng/L [facility] Trop I hs interp Significa nt(C) [facility] Blood 08/05/2024 7:44 PM CDT 08/05/2024 8:04 PM CDT us Dawn Mcmanus MD LAB BLOOD ORDERABLES Fin al Result Performing Organization Address [facility] Co de Phone Number [facility] Department [place] [address] * Critical result callback Cardio chemistry (08/05/2024 7:44 PM CDT) Date Notified [id number] Time Notified 2049 [facility] Test name Trop I hs [facility] Called/Read Back Laurel Leigh [facility] 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 [facility] Called By SB [facility] Blood 08/05/2024 7:44 PM CDT 08/05/2024 8:04 PM CDT us Dawn Mcmanus MD LAB BLOOD ORDERABLES Fin al Result Performing Organization Address [facility] de Phone Number [facility] Department [place] [address] * (ABNORMAL) Troponin I high-sensitivity series (baseline, 2hr, 4hr, 6hr) (08/05/2024 6:02 PM CDT) Trop I hs 77(H) <=17 ng/L Comment: Interpretive Data For further hscTnI resources including the diagnostic algorithm and an aid in interpretation, copy and paste this link: https://bjhlab.testcatalog.org/show/hsTrop-1 Current Interpretive Data last revised 2019. Blood 08/05/2024 6:02 PM CDT 08/05/2024 6:15 PM CDT us Dawn Mcmanus MD LAB BLOOD ORDERABLES Fin al Result [facility] [place] [address] * (ABNORMAL) Sepsis Lactate w/ Reflex (08/05/2024 6:02 PM CDT) Sepsis Lactate 2.6(H) 0.7 - 2.0 mmol/L Blood 08/05/2024 6:02 PM CDT 08/05/2024 6:10 PM CDT Dawn Mcmanus MD LAB BLOOD ORDERABLES Fin al Result Performing Organization Address [facility] Co de Phone Number [facility] Department [place] [address] * (ABNORMAL) eGFR (08/05/2024 6:02 PM CDT) [...] MD LAB BLOOD ORDERABLES Fin al Result [facility] [place] [address] * (ABNORMAL) Differential, auto (08/05/2024 6:02 PM CDT) Neutrophil abs 14.93(H) 1.50 - 6.50 K/cumm Imm gran abs 0.68(H) 0.00 - 0.10 K/cumm [facility] Lymphocyte abs 1.00 0.80 - 3.30 K/cumm [facility] Monocyte abs 0.44 0.20 - 0.80 K/cumm [facility] Eosinophil abs 0.08 0.00 - 0.50 K/cumm [facility] Basophil abs 0.06 0.00 - 0.10 K/cumm [facility] Neutrophil pct 86.8 % [facility] Comment: Interpretive Data Percent cell count reference ranges are not reported, since discordance with absolute values may lead to misinterpretation of CBC data. Current Interpretive Data was last revised on 2017. Imm gran pct 4.0 % [facility] Comment: Interpretive Data Percent cell count reference ranges are not reported, since discordance with absolute values may lead to misinterpretation of CBC data. Current Interpretive Data was last revised on 2017. Lymphocyte pct 5.8 % [facility] Comment: Interpretive Data Percent cell count reference ranges are not reported, since discordance with absolute values may lead to misinterpretation of CBC data. Current Interpretive Data was last revised on 2017. Monocyte pct 2.6 % [facility] Comment: Interpretive Data Percent cell count reference ranges are not reported, since discordance with absolute values may lead to misinterpretation of CBC data. Current Interpretive Data was last revised on 2017. Eosinophil pct 0.5 % [facility] Comment: Interpretive Data Percent cell count reference ranges are not reported, since discordance with absolute values may lead to misinterpretation of CBC data. Current Interpretive Data was last revised on 2017. Basophil pct 0.3 % [facility] Comment: Interpretive Data Percent cell count reference ranges are not reported, since discordance with absolute values may lead to misinterpretation of CBC data. Current Interpretive Data was last revised on 2017. Blood 08/05/2024 6:02 PM CDT 08/05/2024 6:15 PM CDT Dawn Mcmanus MD LAB BLOOD ORDERABLES Fin al Result Performing Organization Address City/[facility] Co de Phone Number [facility] Department [place] [address] * Thyroid Function Mccracken (08/05/2024 6:02 PM CDT) [facility] TSH 3.96 0.30 - 4.20 mcIUnit/mL Blood 08/05/2024 6:02 PM CDT 08/05/2024 6:15 PM CDT Dawn Mcmanus MD LAB BLOOD ORDERABLES Fin al Result Performing Organization Address [facility] de Phone Number [facility] Department [place] [address] * (ABNORMAL) CBC with auto differential (08/05/2024 6:02 PM CDT) [facility] WBC 17.19(H) 3.80 - 9.90 K/cumm Hgb 8.6(L) 11.9 - 15.5 g/dL [facility] Hct 26.0(L) 35.6 - 45.5 % [facility] Plt 241 150 - 400 K/cumm [facility] MPV 11.1 9.1 - 12.3 fL [facility] RBC 3.41(L) 3.90 - 5.20 M/cumm [facility] MCV 76.2(L) 81.3 - 96.4 fL [facility] MCH 25.2(L) 27.1 - 33.3 pg [facility] MCHC 33.1 32.3 - 35.7 g/dL [facility] RDW CV 17.5(H) 11.1 - 14.9 % [facility] RDW SD 47.7 35.7 - 48.1 fL [facility] NRBC abs 0.00 0.00 - 0.01 K/cumm [facility] Blood 08/05/2024 6:02 PM CDT 08/05/2024 6:15 PM CDT us Dawn Mcmanus MD LAB BLOOD ORDERABLES Fin al Result [facility] Department [place] [address] * (ABNORMAL) Blood culture Blood Arterial line (08/05/2024 6:02 PM CDT) Direct Specimen Exam Stain: Gram Positive Cocci in clusters Time to culture positivity (aerobic media): 10.3 hours Time to culture positivity (anaerobic media): 13.1 hours Report Final Report: Staphylococcus aureus For susceptibility results, refer to accession number [id number] on the blood culture from 08/05/2024 Staphylococcus aureus #2 For susceptibility results, refer to accession number [id number] on the blood culture from 08/05/2024 (.) [facility] Organism STAPHYLOCOCCUS AUREUS [facility] Organism STAPHYLOCOCCUS AUREUS [facility] Blood (Arterial line) 08/05/2024 6:02 PM CDT 08/05/2024 6:12 PM CDT Narrative [facility] - 08/09/2024 9:31 AM CDT Third culture [...] performance characteristics have been verified by the [facility] Microbiology Laboratory. For questions about this culture, contact the Microbiology Laboratory at [phone]. Interpretive data was last revised on 24. us Dawn Mcmanus MD LAB MICROBIOLOGY - GENER AL ORDERABLES Final Result [facility] Department [place] [address] * (ABNORMAL) Blood culture Blood Peripheral (08/05/2024 6:02 PM CDT) Direct Specimen Exam Stain: Gram Positive Cocci in clusters Time to culture positivity (aerobic media): 10.4 hours Time to culture positivity (anaerobic media): 12.7 hours Report Final Report: Staphylococcus aureus For susceptibility results, refer to accession number [id number] on the blood culture from 08/05/2024 Staphylococcus aureus #2 For susceptibility results, refer to accession number [id number] on the blood culture from 08/05/2024 (.) [facility] Organism STAPHYLOCOCCUS AUREUS [facility] Organism STAPHYLOCOCCUS AUREUS [facility] Blood (Peripheral) 08/05/2024 6:02 PM CDT 08/05/2024 6:13 PM CDT Narrative [facility] - 08/09/2024 1:18 PM CDT From a [...] performance characteristics have been verified by the [facility] Microbiology Laboratory. For questions about this culture, contact the Microbiology Laboratory at [phone]. Interpretive data was last revised on 24. us Dawn Mcmanus MD LAB MICROBIOLOGY - GENER AL ORDERABLES Final Result [facility] Department [place] [address] * (ABNORMAL) Blood culture Blood Peripheral (08/05/2024 6:02 PM CDT) Direct Specimen Exam Stain: Gram Positive Cocci in clusters Time to culture positivity (aerobic media): 10.2 hours Time to culture positivity (anaerobic media): 12.7 hours Notification of: Gram Positive Cocci in clusters called to and read back by: Lauren Raya MD ([phone]) on 08/06/2024 04:55:17 by: Morgan Mehta MT Direct Specimen Exam Molecular Analysis: Methicillin-resist ant Staphylococcus aureus (MRSA) detected by the pramod [facility] BCID-GP panel. This test does not exclud the possibility of a mixed bacterial infection. Notification of: Methicillin-resist ant Staphylococcus aureus (MRSA) called to and read back by: Dr. Samuel ([phone]) on 08/06/2024 06:53:19 by: EMANUEL Raymundo [facility] Report Final Report: Staphylococcus aureus Methicillin resistant (MRSA) by penicillin binding protein 2a (PBP2a) testing. Staphylococcus aureus #2 Methicillin resistant (MRSA) by penicillin binding protein 2a (PBP2a) testing. (.) [facility] Organism STAPHYLOCOCCUS AUREUS [facility] Organism STAPHYLOCOCCUS AUREUS [facility] Blood (Peripheral) 08/05/2024 6:02 PM CDT 08/05/2024 6:13 PM CDT Narrative [facility] - 08/09/2024 1:18 PM CDT Draw Blood [...] performance characteristics have been verified by the [facility] Microbiology Laboratory. For questions about this culture, contact the Microbiology Laboratory at [phone]. Interpretive data was last revised on 24. [...] (JAMIL) INTERPRETATION Susceptible Staphylococcus aureus Clindamycin (JAMIL) INTERPRETATI ON Susceptible Staphylococcus aureus Erythromycin (JAMIL) INTERPRETATIO N Resistant Staphylococcus aureus Vancomycin (JAMIL) INTERPRETATIO N Susceptible Staphylococcus aureus Oxacillin (JAMIL) INTERPRETATIO N Resistant Staphylococcus aureus Cefazolin (JAMIL) INTERPRETATIO N Resistant Staphylococcus aureus Ceftriaxone (JAMIL) INTERPRETATIO N Resistant us Dawn Mcmanus MD LAB MICROBIOLOGY - GENER AL ORDERABLES Final Result Performing Organization Address City/[facility]/ZIP Co de Phone Number [facility] [place] [address] * (ABNORMAL) Erythrocyte sedimentation rate (08/05/2024 6:02 PM CDT) Erythrocyte sedimentation rate 104(H) 1 - 20 mm/hr Blood 08/05/2024 6:02 PM CDT 08/05/2024 6:15 PM CDT us Dawn Mcmanus MD LAB BLOOD ORDERABLES Fin al Result Performing Organization Address [facility] Co de Phone Number [facility] [place] [address] * (ABNORMAL) CRP (acute phase) (08/05/2024 6:02 PM CDT) CRP 282.7(H) <=10.0 mg/L Blood 08/05/2024 6:02 PM CDT 08/05/2024 6:15 PM CDT us Dawn Mcmanus MD LAB BLOOD ORDERABLES Fin al Result Performing Organization Address City/[facility] Co de Phone Number [facility] [place] [address] * (ABNORMAL) Blood gas, venous (08/05/2024 6:02 PM CDT) pH, Venous 7.35 7.32 - 7.43 PCO2, Venous 35(L) 40 - 50 mmHg [facility] PO2, Venous 22 mmHg [facility] Comment: Interpretive Data No Reference Range Established Current Interpretive Data was last revised on 2017. HCO3 Venous, Calculated 20 20 - 30 mmol/L [facility] BE, venous -6 mmol/L [facility] Comment: Interpretive Data No Reference Range Established Current Interpretive Data was last revised on 2017. Blood 08/05/2024 6:02 PM CDT 08/05/2024 6:10 PM CDT us Dawn Mcmanus MD LAB BLOOD ORDERABLES Fin al Result [facility] [place] [address] * (ABNORMAL) Comprehensive metabolic panel (08/05/2024 6:02 PM CDT) Sodium 125(L) 135 - 145 mmol/L Potassium, pl 3.4 3.3 - 4.9 mmol/L [facility] Chloride 92(L) 97 - 110 mmol/L [facility] CO2 20(L) 22 - 32 mmol/L [facility] Anion gap 13 2 - 15 mmol/L [facility] BUN 48(H) 6 - 25 mg/dL [facility] Creatinine 3.84(H) 0.60 - 1.10 mg/dL [facility] Glucose 107 70 - 199 mg/dL [facility] Comment: Interpretive Data Fasting glucose >/= 126 [...] 2022. Calcium 7.4(L) 8.5 - 10.3 mg/dL [facility] Bilirubin, total 1.0 0.1 - 1.2 mg/dL [facility] Protein, pl 8.5 6.5 - 8.5 g/dL [facility] Albumin 2.1(L) 3.5 - 5.0 g/dL [facility] Alk phos 210(H) 40 - 130 Units/L [facility] ALT 21 7 - 45 Units/L [facility] AST 43 10 - 45 Units/L [facility] Blood 08/05/2024 6:02 PM CDT 08/05/2024 6:15 PM CDT us Dawn Mcmanus MD LAB BLOOD ORDERABLES Fin al Result [facility] [place] [address] * [place] CRITICAL CARE ILL/INJURED PATIENT INIT 30-74 MIN [...] 12-LEAD (08/05/2024 5:53 PM CDT) Narrative [facility] - 08/05/2024 5:53 PM CDT Amando Briggs [...] Comments: Moderate risk Amando Briggs MD 08/05/24 2870 us Amando Briggs MD ECG ORDERABLES Final Res ult [facility] * Pap with reflex to High Risk HPV (08/11/2020 12:37 PM CDT) Pap test 08/11/2020 12:3 7 PM CDT 08/11/2020 3:10 PM CDT Narrative 08/18/2020 1:59 PM CDT EPIC results best viewed via link to PDF [facility] [place], [place] [id number] CYTOPATHOLOGY REPORT FINAL Patient Name: TIFFANY MILLER Gender: F : 1995 (Age: 24) Address: [address] [place] [address] Hospital #: [id number] Service: Gynecology Location: [facility] Patient Type: [facility] Ancillary Taken: 08/11/2020 Received: 08/11/2020 Accessioned: 08/12/2020 [...] determined by the Surgical Pathology Department at [facility] as part of an ongoing quality assurance consultant program and in compliance with federally mandated [...] determined by the Surgical Pathology Department of [facility]. It has not been cleared or approved by the U. S. Food and Drug Administration. Tiffany Reddy MD PhD LAB CYTOLOGY ORDERAB LES Final Result from Last 3 Months or Most Recently Relevant to Health Maintenance Insurance [facility] Advance Directives For more information, please contact: [phone] * Full Code (Latest Code Status on File) Date Activated Date Inactivated Comments 08/05/2024 11:01 PM 10/01/2024 5:38 PM * Full Code Date Activated Date Inactivated Comments 01/19/2021 12:57 AM 01/20/2021 7:39 PM * Full Code Date Activated Date Inactivated Comments 01/18/2021 5:59 PM 01/19/2021 12:57 AM Full CPR in case of cardiopulmonary arrest Healthcare Agents on File Name Relationship Healthcare Agent [facility] p Communication Kusum Cárdenas Sister Health Care Agent
--- OUTSIDE RECORDS SUMMARY | 2024-10-08 13:41 | XMS_ITS ---
Author Organization [facility] Care Team Providers Care Machine Operator Replanter Name Role Phone Unavailable Primary Care Provider Unavailabl e Dialysis Plan of Treatment Dialysis Prescription As-Of Date Prescribed Dry Weight Primary Se tting 09/28/2024 Acute Dialysis S CA Instructions Modality Prescribed Duration (hours) Frequency Blood Flow Rate Conventional Hemodialysis 3:30 35 0 mL/min Dialysis Access Type Location Dialysate Sodium Level Potassium Level Calcium Level Bicarbonate Level 138 mEq/L 36 mEq/L from Last 30 Days Dialysis Access Sites Type Status Location Placement Date Removal Da te Hemodialysis Cath Double 08/23/24 Tunneled catheter Right Internal Jugular Active Right Neck (side) - Anterior 08/23/2024 Hemodialysis Cath Triple 08/09/24 Non-tunneled catheter Internal Jugular Inactive Neck - Anterior 08/09/20242024 Historical Dialysis Procedures Date BP Pre BP Post Weight Pre Weight Post Treatment Duration Start Time End Time Achieved BFR Vascular Access from Last 30 Days Procedures Procedure Name Priority Date/Time Associated Diagnosis [...] AM CDT POCT GLUCOSE DEVICE Routine 09/11/2024 5:30 AM CDT BLOOD CULTURE Routine 09/10/2024 11:04 [...] DEVICE Routine 08/09/2024 5 :20 PM CDT FL INSJ NON-TUNNELED CENTRAL VENOUS CATH AGE 5 [...] HEPATITIS PANEL, ACUTE Routine 4:58 AM CDT FL INSJ NON-TUNNELED CENTRAL VENOUS CATH AGE 5 YR/> Routine 08/06/2024 4:18 AM CDT Acute bacterial endocarditis Septic shock (HCC) XR CHEST 1 VIEW ED Urgent/IP Urgent 08/06/2024 3:56 AM CDT US KIDNEY COMPLETE IP Routine 08/06/2024 3: 20 AM CDT ECG 12-LEAD STAT 08/05/2024 11:21 PM CDT FL CRITICAL CARE ILL/INJURED PATIENT INIT 30-74 MIN Routine 08/05/2024 10:39 PM CDT FL ARTL CATHJ/CANNULJ MNTR/TRANSFUSION SPX PRQ Routine 08/05/2024 [...] BLOOD CULTURE STAT 08/05/2024 6:02 PM CDT FL CRITICAL CARE ILL/INJURED PATIENT INIT 30-74 MIN Routine 08/05/2024 5:59 PM CDT ECG 12-LEAD STAT 08/05/2024 5:53 PM CDT PAP WITH REFLEX TO HIGH RISK HPV Routine 08/11/2020 12:37 PM CDT from Last 3 Months or Most Recently Relevant to Health Maintenance Allergies No known active allergies Medications naloxegoL [...] minimal response. 1 each 1 09/25/19 25 10/24/ 025 Active amLODIPine (NORVASC) 10 mg tablet [...] 1 mL 10/02/19 25 025 Active multivit dytoclbg-mcae-IH-c alcium (THERA-M) 9 mg iron-400 mcg tablet [...] & Plan (09/30/2024 2:33 PM CDT): POCUS (09/06) revealing small volume ascites, not amenable to para Assessment & Plan (09/29/2024 1:49 PM CDT): POCUS (09/06) revealing small volume [...] & Plan (09/06/2024 5:03 PM CDT): POCUS (09/06) revealing small volume [...] -continue clonidine TID -start hydralazine 10mg TID 09/03 Assessment & Plan (09/04/2024 7:56 AM CDT): D/t MARIELENA, withdrawal -continue clonidine TID -start hydralazine 10mg TID 09/03 Assessment & Plan (09/03/2024 4:35 PM CDT): D/t MARIELENA, withdrawal -continue clonidine TID -start hydralazine 10mg TID 09/03 Assessment & Plan (09/02/2024 4:33 PM CDT): [...] like the hospital food choices; Seen eating [place] food 09/14 and 09/15 Pt should not [...] like the hospital food choices; Seen eating [place] food 09/14; Pt should not skip breakfast [...] like the hospital food choices; Seen eating [place] food 09/14; Assessment & Plan (09/13/2024 1:28 [...] POC gluc QID AC Assessment & Plan (09/10/2024 5:10 PM CDT): [...] POC gluc QID AC Assessment & Plan (09/09/2024 7:28 AM CDT): [...] 08/05 ----> repeat outpatient in 4-6 weeks [facility] 9.4 -- Has been hypoglycemic on 08/14, [...] outpatient in - weeks Cortisol 9.4 -- still hypoglycemic ---> due to poor oral intake ---> on Hypoglycemic protocol and PRN glucose Assessment & Plan (08/22/2024 6:32 PM CDT): TSH high at 8.29 and Free T4 is 0.58 on 08/19 but TSH was normal on 08/05 ----> repeat outpatient in 4- weeks Cortisol 9.4 -- still hypoglycemic ---> on Hypoglycemic protocol and PRN glucose Assessment & Plan (08/21/2024 5:24 PM CDT): TSH high at 8.29 and Free T4 is 0.58 on 08/19 but TSH was normal on 08/05 ----> repeat outpatient in 4- weeks Cortisol 9.4 Monitor POC glucose closely, [...] Anemia of infection and chronic disease 08/15/19 Assessment & Plan (10/01/2024 12:21 PM CDT): [...] ok per ID team 1 unit pRBCs /17 Monitor and transfuse PRN Assessment & Plan [...] no UOP after 1 dose lasix 4/20 - Nephrology asked for TDC placement, ok [...] no UOP after 1 dose lasix 4/20 TDC placement for outpatient HD when blood [...] persistent bacteremia. - Declined blood cultures on 415 am. - Blood cultures drawn in HD [...] persistent bacteremia. - Declined blood cultures on 415 am. - Blood cultures drawn in HD [...] persistent bacteremia. - Declined blood cultures on 415 am. - Blood cultures drawn in HD [...] ceftaroline given persistent bacteremia. Declined blood cultures 415 am. Blood cultures drawn in HD 08/15 [...] Blood cultures to be drawn in HD 08/15 Will continue to attempt blood cultures daily; may need to draw with HD. Pt counseled to allow blood draws. Discussed with ID. No plan for surgery per CT surg c/s, may need to discuss with them again given ongoing bacteremia. Assessment & Plan (08/14/2024 1:42 PM CDT): ID following, on daptomycin and ceftaroline given persistent bacteremia. Declined blood cultures 08/14 am. Will continue to attempt blood cultures [...] fever, and tea-colored urine. She presented to [facility] on 07/31 where she was discovered to have high-grade bacteremia with Staphylococcus aureus (MRSA). Cavitary pulmonary nodules on CT suggested septic emboli, and transthoracic echocardiogram subsequently demonstrated a tricuspid valve vegetation (1.2 x 0.8 cm). She entered opioid withdrawal and left the hospital prematurely on 08/03 before re-presenting to [facility] on 08/05 in more florid shock. [...] is switched to a different modality of TOPOGRAPHICAL SURVEYOR or if her [place] clearance improves. - Repeat two sets of [...] had MRI of the thoracolumbar spine at [facility] on 08/01 that was generally reassuring against [...] for acute pain Given the patient is [place] resident, without much access to methadone clinic. [...] for acute pain Given the patient is [place] resident, without much access to methadone clinic. [...] for acute pain Given the patient is [place] resident, without much access to methadone clinic. [...] for acute pain Given the patient is [place] resident, without much access to methadone clinic. [...] for acute pain Given the patient is [place] resident, without much access to methadone clinic. Plan to transition patient from methadone to Suboxone. Assessment & Plan (09/26/2024 3:45 PM CDT): Psych following for dosing of methadone Also on oxy 2.5 mg q6h prn for acute pain Given the patient is [place] resident, without much access to methadone clinic. Plan to transition patient from methadone to Suboxone. Assessment & Plan (09/25/2024 1:31 PM CDT): Psych following for dosing of methadone Also on oxy 2.5 mg q6h prn for acute pain Currently on methadone 40 daily per psych for OUD. [facility] referral ([phone]) for outpatient follow-up for methadone -prn meds [...] methadone 40 daily per psych for OUD. [facility] referral ([phone]) for outpatient follow-up for methadone placed/talked 09/21 given long weekend. No response. [facility] referral was placed/talked again 09/24. Pain currently controlled with oxycodone p.r.n. 5>2.5 mg q.6; titrate as needed -prn meds for withdrawal symptoms VSS; continue to monitor Assessment & Plan (09/23/2024 11:48 AM CDT): Methadone Recommended by Psychiatry; titrated up to 70 mg Daily and is on scheduled clonidine. - Pt also using prn oxycodone; found to be somnolent 415 a.m. Methadone may be accumulating in this [...] methadone 40 daily per psych for OUD. [facility] referral ([phone]) for outpatient follow-up for methadone placed 09/21 [...] methadone 40 daily per psych for OUD. [facility] referral ([phone]) for outpatient follow-up for methadone placed 09/21 [...] methadone 40 daily per psych for OUD. [facility] referral ([phone]) for outpatient follow-up for methadone placed 09/21 [...] 5 q6 prn resumed for pain 09/20. [facility] referral ([phone]) for outpatient follow-up for methadone at least [...] pain, discontinued p.r.n. oxycodone per psych recommendations. [facility] referral ([phone]) for outpatient follow-up for methadone at least [...] provider to reach out to Case-Worker Katrina [phone] to discuss methadone dosing as requested to wean dosing. We discussed with patient that maintaining and likely increasing methadone dose in third trimester is to be expected due to the physiology of and metabolism. We also reviewed that increasing this does does not increase the risk of THOMAS in the . carry in worker attempted to be called but patient declines. If katrina calls clinic, may send her a letter stating above. We also reviewed the false-positive rate with amphetamine and higher sensitivity/specificty of our UDS with [facility] clinic. Patient denies relapses and is 9 months sober today. Commended on great work!! Assessment & Plan (06/23/2020 2:51 PM OUTSOLE COMPRESSOR): Drug use history: She reports using IV [...] avoidance of other substances. An Anesthesia and [facility] Medicine consult will be obtained in the [...] caring for a . Close follow-up with CARE will be recommended at that time. She [...] us if she needs anything at all. Immunizations Immunization Administration Dates Next Due DTaP 01/31/2002,11/22/2000,03/28/2000 Hep A, Ped Unspecified 01/31/2002,03/28/2000 Hep B / HiB 11/22/2000,03/28/2000 IPV 01/31/2002,11/22/2000,03/28/2000 MMR 11/22/2000 Pneumococcal Conjugate 7-Valent 11/22/2000 Tdap 11/17/2020,01/21/2019 Social History Tobacco Use Types Packs/Day Years Used Date Smoking Tobacco: Every Day Cigarettes Tobacco Cessation:Ready to Q uit: No [facility] Utilities Answer Date Recorded In the past 12 months has [employer], gas, oil, or water [employer] threatened to shut off services in your home? Patient declined 08/22/2024 Social Connection and Isolation Panel [NHANES] A nswer Date Recorded In a typical week, how many times do you talk on the phone with family, friends, or neighbors? Patient declined 08/22/2024 How often do you get togethe r with friends or relatives? Patient declined 08/22/2024 How often do you attend rastafari or jehovah's witness serv ices? Patient declined 08/22/2024 Do you belong to any clubs o r organizations such as rastafari groups, unions, fraternal or athletic groups, or [...] things needed for daily living? Yes 08/22/2024 [place] Depression Scale Answer Date Recorded [place] Depression Scale Total 1 03/23/2021 The thought [...] any time in the past 12 m [facility], were you homeless or living in a senior care (including now)? Yes 08/22/2024 Personal Safety Answer Date Recorded Have you ever been in or are you currently in a harmful physical or emotional relationship or is someone making you feel afraid or unsafe? Denies 10/01/2024 Comments No Sex and Gender Information Value Date Recorded Sex Assigned at Not on file Legal Sex Female 6:17 PM OUTSOLE COMPRESSOR Gender Identity Not on file Sexual Orientation [...] Mass Index 21.71 08/05/2024 11:10 PM CDT Results * POCT glucose (10/01/2024 1:26 PM CDT) Glucose, POC 96 70 - 199 mg/dL Blood 10/01/2024 1:26 PM CDT 10/01/2024 1:26 PM CDT us Arya Vincent MD LAB POCT ORDERABLES - DEVICE Final Result [facility] Department [place] [address] * IR Remove Tunneled CVC (10/01/2024 11:25 [...] sedation. TECHNIQUE: Prior to beginning the procedure, Clarence Protocol was used to confirm the patient's [...] sedation. TECHNIQUE: Prior to beginning the procedure, Clarence Protocol was used to confirm the patient's [...] protocol. Electronically signed by: Kendra Polanco PA-C Result [facility] Arya Vincent MD IMG IR PROCEDURES Final Resu lt * POCT glucose (10/01/2024 7:31 AM CDT) Glucose, POC 95 70 - 199 mg/dL Blood 10/01/2024 7:31 AM CDT 10/01/2024 7:31 AM CDT Arya Vincent MD LAB POCT ORDERABLES - DEVICE Final Result Performing Organization Address [facility] Co de Phone Number [facility] [place] [address] * POCT glucose (10/01/2024 6:34 AM CDT) Glucose, POC 120 70 - 199 mg/dL Blood 10/01/2024 6:34 AM CDT 10/01/2024 6:34 AM CDT Arya Vincent MD LAB POCT ORDERABLES - DEVICE Final Result Performing Organization Address [facility] Co de Phone Number [facility] [place] [address] * POCT glucose (09/30/2024 9:11 PM CDT) Glucose, POC 116 70 - 199 mg/dL Blood 09/30/2024 9:11 PM CDT 09/30/2024 9:11 PM CDT Arya Vincent MD LAB POCT ORDERABLES - DEVICE Final Result Performing Organization Address [facility] Co de Phone Number [facility] [place] [address] * (ABNORMAL) eGFR (09/30/2024 7:49 PM CDT) Pathologist [facility] [place] eGFR 15(L) >=60 mL/min/1. 73 m2 Comment: [...] ORDERABLES F inal Result Performing Organization Address City/[facility]/ZIP Co de Phone Number [facility] [place] [address] * (ABNORMAL) Differential, auto (09/30/2024 7:49 PM CDT) Pathologist [facility] [place] Neutrophil abs 5.97 1.50 - 6.50 K/cumm Imm gran abs 0.07 0.00 - 0.10 K/cumm [facility] Lymphocyte abs 2.76 0.80 - 3.30 K/cumm [facility] Monocyte abs 0.98(H) 0.20 - 0.80 K/cumm [facility] Eosinophil abs 0.18 0.00 - 0.50 K/cumm [facility] Basophil abs 0.05 0.00 - 0.10 K/cumm [facility] Neutrophil pct 59.6 % [facility] Comment: Interpretive Data Percent cell count reference ranges are not reported, since discordance with absolute values may lead to misinterpretation of CBC data. Current Interpretive Data was last revised on 2017. Imm gran pct 0.7 % [facility] Comment: Interpretive Data Percent cell count reference ranges are not reported, since discordance with absolute values may lead to misinterpretation of CBC data. Current Interpretive Data was last revised on 2017. Lymphocyte pct 27.6 % [facility] Comment: Interpretive Data Percent cell count reference ranges are not reported, since discordance with absolute values may lead to misinterpretation of CBC data. Current Interpretive Data was last revised on 2017. Monocyte pct 9.8 % [facility] Comment: Interpretive Data Percent cell count reference ranges are not reported, since discordance with absolute values may lead to misinterpretation of CBC data. Current Interpretive Data was last revised on 2017. Eosinophil pct 1.8 % [facility] Comment: Interpretive Data Percent cell count reference ranges are not reported, since discordance with absolute values may lead to misinterpretation of CBC data. Current Interpretive Data was last revised on 2017. Basophil pct 0.5 % [facility] Comment: Interpretive Data Percent cell count reference ranges are not reported, since discordance with absolute values may lead to misinterpretation of CBC data. Current Interpretive Data was last revised on 2017. Blood 09/30/2024 7:49 PM CDT 09/30/2024 8:16 PM CDT Elizabet Dickey MD LAB BLOOD ORDERABLES F inal Result Performing Organization Address City/[facility]/ZIP Co de Phone Number [facility] [place] [address] * (ABNORMAL) CBC with auto differential (09/30/2024 7:49 PM CDT) Pathologist [facility] [place] WBC 10.01(H) 3.80 - 9.90 K/cumm Hgb 7.8(L) 11.9 - 15.5 g/dL [facility] Hct 24.8(L) 35.6 - 45.5 % [facility] Plt 302 150 - 400 K/cumm [facility] MPV 10.6 9.1 - 12.3 fL [facility] RBC 2.82(L) 3.90 - 5.20 M/cumm [facility] MCV 87.9 81.3 - 96.4 fL [facility] MCH 27.7 27.1 - 33.3 pg [facility] MCHC 31.5(L) 32.3 - 35.7 g/dL [facility] RDW CV 16.9(H) 11.1 - 14.9 % [facility] RDW SD 54.2(H) 35.7 - 48.1 fL [facility] NRBC abs 0.00 0.00 - 0.01 K/cumm [facility] Blood 09/30/2024 7:49 PM CDT 09/30/2024 8:16 PM CDT Elizabet Dickey MD LAB BLOOD ORDERABLES F inal Result [facility] [place], [place] [id number] * (ABNORMAL) Phosphorus (09/30/2024 7:49 PM CDT) Phosphorus, pl 1.8(L) 2.3 - 4.5 mg/dL Blood 09/30/2024 7:49 PM CDT 09/30/2024 8:16 PM CDT Kirk Gaming MD LAB BLOOD ORDERABLES F inal Result [facility] [place] [address] * Bilirubin, direct (09/30/2024 7:49 PM CDT) Pathologist [facility] [place] Bilirubin, direct 0.2 0.1 - 0.3 mg/dL Comment:Reviewed Blood 09/30/2024 7:49 PM CDT 09/30/2024 8:16 PM CDT Kirk Gaming MD LAB BLOOD ORDERABLES F inal Result Performing Organization Address [facility] de Phone Number [facility] [place] [address] * (ABNORMAL) Comprehensive metabolic panel (09/30/2024 7:49 PM CDT) Pathologist [facility] [place] Sodium 134(L) 135 - 145 mmol/L Potassium, pl 3.7 3.3 - 4.9 mmol/L [facility] Chloride 98 97 - 110 mmol/L [facility] CO2 30 22 - 32 mmol/L [facility] Anion gap 6 2 - 15 mmol/L [facility] BUN 16 6 - 25 mg/dL [facility] Creatinine 3.93(H) 0.60 - 1.10 mg/dL [facility] Glucose 82 70 - 199 mg/dL [facility] Comment: Interpretive Data Fasting glucose >/= [...] 2022. Calcium 7.9(L) 8.5 - 10.3 mg/dL [facility] Bilirubin, total 0.5 0.1 - 1.2 mg/dL [facility] Protein, pl 7.6 6.5 - 8.5 g/dL [facility] Albumin 2.1(L) 3.5 - 5.0 g/dL [facility] Alk phos 101 40 - 130 Units/L [facility] ALT 5(L) 7 - 45 Units/L [facility] AST 9(L) 10 - 45 Units/L [facility] Blood 09/30/2024 7:49 PM CDT 09/30/2024 8:16 PM CDT us Kirk Gaming MD LAB BLOOD ORDERABLES F inal Result Performing Organization Address [facility]/ZIP Co de Phone Number [facility] [place] [address] * POCT glucose (09/30/2024 5:42 PM CDT) Glucose, POC 117 70 - 199 mg/dL Blood 09/30/2024 5:42 PM CDT 09/30/2024 5:42 PM CDT Arya Vincent MD LAB POCT ORDERABLES - DEVICE Final Result Performing Organization Address City/[facility]/ZIP Co de Phone Number [facility] [place] [address] * POCT glucose (09/30/2024 11:30 AM CDT) Glucose, POC 80 70 - 199 mg/dL Blood 09/30/2024 11:3 0 AM CDT 09/30/2024 11:30 AM CDT Arya Vincent MD LAB POCT ORDERABLES - DEVICE Final Result Performing Organization Address [facility]/ZIP Co de Phone Number [facility] [place] [address] * POCT glucose (09/30/2024 9:31 AM CDT) Glucose, POC 71 70 - 199 mg/dL Blood 09/30/2024 9:31 AM CDT 09/30/2024 9:31 AM CDT us Arya Vincent MD LAB POCT ORDERABLES - DEVICE Final Result Performing Organization Address [facility] [place] [address] * POCT glucose (09/30/2024 6:51 AM CDT) Glucose, POC 77 70 - 199 mg/dL Blood 09/30/2024 6:51 AM CDT 09/30/2024 6:51 AM CDT us Arya Vincent MD LAB POCT ORDERABLES - DEVICE Final Result Performing Organization Address [facility]/ZIP Co de Phone Number [facility] [place] [address] * POCT glucose (09/29/2024 7:48 PM CDT) Glucose, POC 130 70 - 199 mg/dL Blood 09/29/2024 7:48 PM CDT 09/29/2024 7:48 PM CDT us Arya Vincent MD LAB POCT ORDERABLES - DEVICE Final Result Performing Organization Address City/[facility]/ZIP Co de Phone Number [facility] [place] [address] * POCT glucose (09/29/2024 5:00 PM CDT) Glucose, POC 111 70 - 199 mg/dL Blood 09/29/2024 5:00 PM CDT 09/29/2024 5:00 PM CDT Arya Vincent MD LAB POCT ORDERABLES - DEVICE Final Result Performing Organization Address [facility] Co de Phone Number [facility] [place] [address] * POCT glucose (09/29/2024 11:43 AM CDT) Glucose, POC 77 70 - 199 mg/dL Blood 09/29/2024 11:4 3 AM CDT 09/29/2024 11:43 AM CDT Arya Vincent MD LAB POCT ORDERABLES - DEVICE Final Result Performing Organization Address [facility] de Phone Number [facility] [place] [address] * POCT glucose (09/29/2024 9:22 AM CDT) Glucose, POC 94 70 - 199 mg/dL Blood 09/29/2024 9:22 AM CDT 09/29/2024 9:22 AM CDT Arya Vincent MD LAB POCT ORDERABLES - DEVICE Final Result Performing Organization Address City/[facility] [place] [address] * POCT glucose (09/28/2024 11:42 PM CDT) Glucose, POC 77 70 - 199 mg/dL Blood 09/28/2024 11:4 2 PM CDT 09/28/2024 11:42 PM CDT Arya Vincent MD LAB POCT ORDERABLES - DEVICE Final Result Performing Organization Address [facility] Co de Phone Number [facility] [place] [address] * (ABNORMAL) Trichomonas vaginalis PCR Vaginal (09/28/2024 5:40 PM CDT) [facility] Trichomonas DNA Detected( A) Not Detected [facility] Vaginal 09/28/2024 5:40 PM CDT 09/28/2024 6:59 PM CDT Narrative [facility] - 09/28/2024 8:44 PM CDT Interpretive Data: This assay detects Trichomonas vaginalis by nucleic acid amplification testing (NAAT). This assay has been cleared by the [place] Food and Drug administration. The performance characteristics of this test have been verified by the [facility] Molecular Infectious Disease laboratory. Excess blood in specimens may be inhibitory and result in false negative results. The performance of this test has not been evaluated in women or individuals less than 18 years of age. Arya Vincent MD LAB MICROBIOLOGY - GENERAL O RDERABLES Final Result Performing Organization Address [facility] de Phone Number [facility] [place] [address] [facility] * POCT glucose (09/28/2024 5:04 PM CDT) Pathologist [facility] [place] Glucose, POC 128 70 - 199 mg/dL Blood 09/28/2024 5:04 PM CDT 09/28/2024 5:04 PM CDT Arya Vincent MD LAB POCT ORDERABLES - DEVICE Final Result Performing Organization Address [facility] Co de Phone Number [facility] [place] [address] * N. gonorrhoeae/C. trachomatis Amplification Urine (09/28/2024 3:02 PM CDT) C. trachomatis Not Detected Not Detected [facility] N. gonorrhoeae Not Detected Not Detected [facility] Comment: Interpretive Data This assay detects Chlamydia trachomatis and Neisseria gonorrhoeae by nucleic acid amplification testing (NAAT). This assay has been cleared by the [place] Food and Drug administration. The performance characteristics of this test have been verified by the [facility] Molecular Infectious Disease laboratory. The performance characteristics of this test have not been evaluated in individuals less than 14 years of age. Current Interpretive Data last revised 2023. Urine (None) 09/28/2024 3:02 PM CDT 09/28/2024 3:58 PM CDT Arya Vincent MD LAB MICROBIOLOGY - GENERAL O RDERABLES Final Result [facility] Department [place] [address] [facility] * Drugs of Abuse Screen, Urine with Reflex Confirmation (09/28/2024 3:02 PM CDT) Amphetamine, ur Not Detected CutOff 500ng/mL Comment: Interpretive Data - Amphetamines: Samples containing greater than 500 ng/mL d-methamphetamine or other cross-reacting amphetamine compounds are reported as positive. Amphetamine immunoassays are subject to significant false positive rates due to cross-reactivity of non-amphetamine drugs. Confirmatory testing required for definitive results. Current Interpretive Data was last reviewed 2022. Barbiturates, ur Not Detected CutOff 200ng/mL [facility] Comment: Interpretive Data - Barbiturates: Samples containing greater than 200 ng/mL secobarbital or other cross-reacting barbiturate compounds are reported as positive. False positive and false negative results are possible. Confirmatory testing required for definitive results. Current Interpretive Data was last reviewed 2022. Benzodiazepines, ur Not Detected CutOff 100ng/mL [facility] Comment: Interpretive Data - Benzodiazepines: Samples containing greater than 100 ng/mL nordiazepam or other cross-reacting compounds are reported as positive. False positive and false negative results are possible. Confirmatory testing required for definitive results. Current Interpretive Data was last reviewed 2022. Cannabinoids, ur Not Detected CutOff 50 ng/mL [facility] Comment: Interpretive [...] Phencyclidine, ur Not Detected CutOff 25 ng/mL [facility] Comment: Interpretive Data - Phencyclidine: Samples containing greater than 25 ng/mL phencyclidine or other cross-reacting compounds are reported as positive. False positive and false negative results are possible. Confirmatory testing required for definitive results. Current Interpretive Data was last reviewed 2022. Urine Creatinine 20 mg/dL BANNERRANDA [facility] Comment: Interpretive Data Urine Creatinine: < 10 mg/dL is extremely dilute = or > 10 but < 20 mg/dL is dilute = or > 20 mg/dL is normal Current Interpretive Data was last revised on 2017. Urine 09/28/2024 3:02 PM CDT 09/28/2024 4:20 PM CDT Narrative ARAMIS [facility] - 09/28/2024 5:19 PM CDT Drug of Abuse screening is performed by immunoassay for medical purposes only. This is not to be used for Pain Management purposes. If Detected, confirmation testing will be performed for Amphetamines, Cocaine, Fentanyl, Methadone, Opiates, Oxycodone or Phencyclidine. Arya Vincent MD LAB URINE ORDERABLES Final R esult Performing Organization Address City/[facility]/ZIP Co de Phone Number [facility] [place] [address] * POCT glucose (09/28/2024 11:51 AM CDT) Glucose, POC 82 70 - 199 mg/dL Blood 09/28/2024 11:5 1 AM CDT 09/28/2024 11:51 AM CDT Arya Vincent MD LAB POCT ORDERABLES - DEVICE Final Result Performing Organization Address City/[facility]/ZIP Co de Phone Number [facility] [place] [address] * Reflex Hepatitis C RNA, Quantitative (09/28/2024 11:04 AM CDT) HCV RNA result Not Detected [facility] Comment: The quantifiable range of this assay is 15 IU/mL to 100,000,000 IU/mL (1.18 log IU/mL to 8.00 log IU/mL). Testing was performed by the [employer] 6800 HCV Test ([employer] Testing performed at [facility] Current Interpretive Data was last revised on 2020 Blood 09/28/2024 11:0 4 AM CDT 09/29/2024 1:59 PM CDT Arya Vincent MD LAB BLOOD ORDERABLES Final R esult Performing Organization Address City/[facility] Co de Phone Number [facility] [place] [address] [facility] * HIV 1/2 Antibody plus p24 Antigen Blood (09/28/2024 11:04 AM CDT) Pathologist [facility] [place] HIV 1/2 ab + p24 ag Nonreactive [...] O RDERABLES Final Result Performing Organization Address City/[facility] Co de Phone Number [facility] Department [place] [address] * (ABNORMAL) Hepatitis C antibody Blood (09/28/2024 11:04 AM CDT) Pathologist [facility] [place] Hep C Ab Reactive( A) Nonreactive Comment: [...] O RDERABLES Final Result Performing Organization Address [facility] Co de Phone Number [facility] [place] [address] * (ABNORMAL) Hepatitis A antibody, total Blood (09/28/2024 11:04 AM CDT) Hep A total Reactive(A ) Nonreactive Blood 09/28/2024 11:0 4 AM CDT 09/28/2024 12:28 PM CDT us Arya Vincent MD LAB MICROBIOLOGY - GENERAL O RDERABLES Final Result Performing Organization Address [facility] de Phone Number [facility] [place] [address] * Hepatitis B core antibody, total Blood (09/28/2024 11:04 AM CDT) Hep B core IgG/IgM Nonreactive Nonreactive Blood 09/28/2024 11:0 4 AM CDT 09/28/2024 12:28 PM CDT us Arya Vincent MD LAB MICROBIOLOGY - GENERAL O RDERABLES Final Result Performing Organization Address [facility] de Phone Number [facility] [place] [address] * RPR Blood (09/28/2024 11:04 AM CDT) RPR Nonreactive Nonreactive Blood 09/28/2024 11:0 4 AM CDT 09/28/2024 11:55 AM CDT us Arya Vincent MD LAB MICROBIOLOGY - GENERAL O RDERABLES Final Result Performing Organization Address City/[facility] [place] [address] * Hepatitis B surface antibody (immune status) Blood (09/28/2024 11:04 AM CDT) Pathologist [facility] [place] HBsAb (immune status) Reactive Comment:This result is consi stent with immunity to Hepatitis B Virus when used in the setting of routine screening. Current interpretive data was last revised on 21 HBsAb (immune status) index 281.0 mIUnits/m L [facility] Blood 09/28/2024 11:0 4 AM CDT 09/28/2024 12:28 PM CDT Arya Vincent MD LAB MICROBIOLOGY - GENERAL O RDERABLES Final Result Performing Organization Address [facility] Co de Phone Number [facility] [place] [address] * Hepatitis B Surface Antigen Blood (09/28/2024 11:04 AM CDT) [facility] HepBsAg Nonreactive Nonreactive Blood 09/28/2024 11:0 4 AM CDT 09/28/2024 12:28 PM CDT Arya Vincent MD LAB MICROBIOLOGY - GENERAL O RDERABLES Final Result Performing Organization Address City/[facility] Co de Phone Number [facility] [place] [address] * POCT glucose (09/28/2024 7:52 AM CDT) Pathologist [facility] [place] Glucose, POC 80 70 - 199 mg/dL Blood 09/28/2024 7:52 AM CDT 09/28/2024 7:52 AM CDT Arya Vincent MD LAB POCT ORDERABLES - DEVICE Final Result Performing Organization Address [facility] Co de Phone Number [facility] [place] [address] * (ABNORMAL) eGFR (09/27/2024 10:15 PM CDT) eGFR 19(L) >=60 mL/min/1. 73 m2 Comment: [...] ORDERABLES F inal Result Performing Organization Address [facility] Co de Phone Number [facility] Department [place] [address] * (ABNORMAL) Renal function panel (09/27/2024 10:15 PM CDT) Sodium 135 135 - 145 mmol/L Potassium, pl 3.8 3.3 - 4.9 mmol/L [facility] Chloride 98 97 - 110 mmol/L [facility] CO2 30 22 - 32 mmol/L [facility] Anion gap 7 2 - 15 mmol/L [facility] BUN 14 6 - 25 mg/dL [facility] Creatinine 3.27(H) 0.60 - 1.10 mg/dL [facility] Glucose 86 70 - 199 mg/dL [facility] Comment: Interpretive Data Fasting glucose >/= [...] 2022. Calcium 7.7(L) 8.5 - 10.3 mg/dL [facility] Phosphorus, pl 1.7(L) 2.3 - 4.5 mg/dL [facility] Albumin 2.1(L) 3.5 - 5.0 g/dL [facility] Blood 09/27/2024 10:1 5 PM CDT 09/27/2024 10:45 PM CDT us Kirk Gaming MD LAB BLOOD ORDERABLES F inal Result Performing Organization Address City/[facility]/ZIP Co de Phone Number [facility] [place] [address] * POCT glucose (09/27/2024 9:07 PM CDT) [facility] Glucose, POC 103 70 - 199 mg/dL Blood 09/27/2024 9:07 PM CDT 09/27/2024 9:07 PM CDT us Arya Vincent MD LAB POCT ORDERABLES - DEVICE Final Result Performing Organization Address [facility]/ZIP Co de Phone Number [facility] Department [place] [address] * POCT glucose (09/27/2024 5:26 PM CDT) Glucose, POC 124 70 - 199 mg/dL Blood 09/27/2024 5:26 PM CDT 09/27/2024 5:26 PM CDT Arya Vincent MD LAB POCT ORDERABLES - DEVICE Final Result Performing Organization Address City/[facility]/ZIP Co de Phone Number [facility] [place] [address] * POCT glucose (09/27/2024 12:43 PM CDT) Glucose, POC 70 70 - 199 mg/dL Blood 09/27/2024 12:4 3 PM CDT 09/27/2024 12:43 PM CDT Arya Vincent MD LAB POCT ORDERABLES - DEVICE Final Result Performing Organization Address City/[facility] Co de Phone Number [facility] [place] [address] * Post Dialysis BUN (09/27/2024 12:11 PM CDT) BUN Post 7 6 - 25 mg/dL Blood 09/27/2024 12:1 1 PM CDT 09/27/2024 12:24 PM CDT Tarik Damon MD LAB BLOOD ORDERABLES Final Result Performing Organization Address City/[facility] Co de Phone Number [facility] [place] [address] * POCT glucose (09/27/2024 11:01 AM CDT) Glucose, POC 91 70 - 199 mg/dL Blood 09/27/2024 11:0 1 AM CDT 09/27/2024 11:01 AM CDT Arya Vincent MD LAB POCT ORDERABLES - DEVICE Final Result Performing Organization Address [facility] Co de Phone Number [facility] [place] [address] * POCT glucose (09/27/2024 10:07 AM CDT) Glucose, POC 73 70 - 199 mg/dL Blood 09/27/2024 10:0 7 AM CDT 09/27/2024 10:07 AM CDT Arya Vincent MD LAB POCT ORDERABLES - DEVICE Final Result Performing Organization Address [facility] Co de Phone Number [facility] [place] [address] * Pre Dialysis BUN (09/27/2024 8:32 AM CDT) BUN Pre 22 6 - 25 mg/dL Blood 09/27/2024 8:32 AM CDT 09/27/2024 8:51 AM CDT Tarik Damon MD LAB BLOOD ORDERABLES Final Result Performing Organization Address [facility] Co de Phone Number [facility] [place] [address] * Hepatitis B Surface Antigen Blood (09/27/2024 8:32 AM CDT) HepBsAg Nonreactive Nonreactive Blood 09/27/2024 8:32 AM CDT 09/27/2024 8:51 AM CDT Tarik Damon MD LAB MICROBIOLOGY - GE NERAL ORDERABLES Final Result Performing Organization Address City/[facility] [place] [address] * POCT glucose (09/27/2024 7:34 AM CDT) Glucose, POC 71 70 - 199 mg/dL Blood 09/27/2024 7:34 AM CDT 09/27/2024 7:34 AM CDT Arya Vincent MD LAB POCT ORDERABLES - [place] [address] * POCT glucose (09/26/2024 9:35 PM CDT) Glucose, POC 75 70 - 199 mg/dL Blood 09/26/2024 9:35 PM CDT 09/26/2024 9:35 PM CDT us Arya Vincent MD LAB POCT ORDERABLES - [place] [address] * POCT glucose (09/26/2024 6:22 PM CDT) Glucose, POC 83 70 - 199 mg/dL Blood 09/26/2024 6:22 PM CDT 09/26/2024 6:22 PM CDT Arya Vincent MD LAB POCT ORDERABLES - [place] [address] * POCT glucose (09/26/2024 1:11 PM CDT) Glucose, POC 75 70 - 199 mg/dL Blood 09/26/2024 1:11 PM CDT 09/26/2024 1:11 PM CDT Arya Vincent MD LAB POCT ORDERABLES - DEVICE Final Result Performing Organization Address [facility] de Phone Number [facility] [place] [address] * POCT glucose (09/26/2024 9:17 AM CDT) Glucose, POC 89 70 - 199 mg/dL Blood 09/26/2024 9:17 AM CDT 09/26/2024 9:17 AM CDT Arya Vincent MD LAB POCT ORDERABLES - DEVICE Final Result Performing Organization Address [facility] de Phone Number [facility] [place] [address] * (ABNORMAL) POCT glucose (09/26/2024 8:47 AM CDT) [facility] Glucose, POC 69(L) 70 - 199 mg/dL Blood 09/26/2024 8:47 AM CDT 09/26/2024 8:47 AM CDT Arya Vincent MD LAB POCT ORDERABLES - DEVICE Final Result Performing Organization Address [facility] de Phone Number [facility] [place] [address] * (ABNORMAL) eGFR (09/25/2024 9:54 PM CDT) Pathologist [facility] [place] eGFR 14(L) >=60 mL/min/1. 73 m2 Comment: [...] MD LAB BLOOD ORDERABLES F inal Result [facility] Department [place] [address] * (ABNORMAL) Renal function panel (09/25/2024 9:54 PM CDT) Sodium 134(L) 135 - 145 mmol/L Potassium, pl 4.3 3.3 - 4.9 mmol/L [facility] Chloride 99 97 - 110 mmol/L [facility] CO2 29 22 - 32 mmol/L [facility] Anion gap 6 2 - 15 mmol/L [facility] BUN 19 6 - 25 mg/dL [facility] Creatinine 4.22(H) 0.60 - 1.10 mg/dL [facility] Glucose 71 70 - 199 mg/dL [facility] Comment: Interpretive Data Fasting glucose >/= [...] 2022. Calcium 8.1(L) 8.5 - 10.3 mg/dL [facility] Phosphorus, pl 2.8 2.3 - 4.5 mg/dL [facility] Albumin 2.1(L) 3.5 - 5.0 g/dL [facility] Blood 09/25/2024 9:54 PM CDT 09/25/2024 11:04 PM CDT us Kirk Gaming MD LAB BLOOD ORDERABLES F inal Result Performing Organization Address [facility]/ZIP Co de Phone Number [facility] [place] [address] * POCT glucose (09/25/2024 8:15 PM CDT) Glucose, POC 93 70 - 199 mg/dL Blood 09/25/2024 8:15 PM CDT 09/25/2024 8:15 PM CDT Arya Vincent MD LAB POCT ORDERABLES - DEVICE Final Result Performing Organization Address [facility] de Phone Number [facility] [place] [address] * POCT glucose (09/25/2024 6:12 PM CDT) Glucose, POC 92 70 - 199 mg/dL Comment:Glu2: RN/MD Notified Glucose comment 1 Glu2: RN/MD Notified [facility] Blood 09/25/2024 6:12 PM CDT 09/25/2024 6:12 PM CDT Arya Vincent MD LAB POCT ORDERABLES - DEVICE Final Result Performing Organization Address [facility] Co de Phone Number [facility] [place] [address] * POCT glucose (09/25/2024 5:17 PM CDT) Glucose, POC 85 70 - 199 mg/dL Blood 09/25/2024 5:17 PM CDT 09/25/2024 5:17 PM CDT us Arya Vincent MD LAB POCT ORDERABLES - DEVICE Final Result [facility] [place] [address] * POCT glucose (09/25/2024 12:27 PM CDT) Glucose, POC 79 70 - 199 mg/dL Blood 09/25/2024 12:2 7 PM CDT 09/25/2024 12:27 PM CDT us Arya Vincent MD LAB POCT ORDERABLES - DEVICE Final Result Performing Organization Address [facility]/[place] [address] * POCT glucose (09/25/2024 7:43 AM CDT) Glucose, POC 76 70 - 199 mg/dL Comment:Glu2: RN/MD Notified Glucose comment 1 Glu2: RN/MD Notified [facility] Blood 09/25/2024 7:43 AM CDT 09/25/2024 7:43 AM CDT us Arya Vincent MD LAB POCT ORDERABLES - [place] [address] * POCT glucose (09/25/2024 3:34 AM CDT) Glucose, POC 78 70 - 199 mg/dL Blood 09/25/2024 3:34 AM CDT 09/25/2024 3:34 AM CDT Arya Vincent MD LAB POCT ORDERABLES - DEVICE Final Result Performing Organization Address [facility] de Phone Number [facility] [place] [address] * POCT glucose (09/24/2024 9:42 PM CDT) Glucose, POC 83 70 - 199 mg/dL Blood 09/24/2024 9:42 PM CDT 09/24/2024 9:42 PM CDT Arya Vincent MD LAB POCT ORDERABLES - DEVICE Final Result Performing Organization Address [facility] de Phone Number [facility] [place] [address] * POCT glucose (09/24/2024 5:06 PM CDT) Glucose, POC 104 70 - 199 mg/dL Blood 09/24/2024 5:06 PM CDT 09/24/2024 5:06 PM CDT Gianni Huerta MD LAB POCT ORDERABLES - DEV ICE Final Result Performing Organization Address [facility] de Phone Number [facility] [place] [address] * POCT glucose (09/24/2024 12:09 PM CDT) Glucose, POC 84 70 - 199 mg/dL Blood 09/24/2024 12:0 9 PM CDT 09/24/2024 12:09 PM CDT Gianni Huerta MD LAB POCT ORDERABLES - DEV ICE Final Result Performing Organization Address [facility] de Phone Number [facility] [place] [address] * (ABNORMAL) POCT glucose (09/24/2024 11:14 AM CDT) Glucose, POC 68(L) 70 - 199 mg/dL Blood 09/24/2024 11:1 4 AM CDT 09/24/2024 11:14 AM CDT Gianni Huerta MD LAB POCT ORDERABLES - DEV ICE Final Result Performing Organization Address [facility] de Phone Number [facility] [place] [address] * POCT glucose (09/24/2024 12:09 AM CDT) Glucose, POC 81 70 - 199 mg/dL Blood 09/24/2024 12:0 9 AM CDT 09/24/2024 12:09 AM CDT Gianni Huerta MD LAB POCT ORDERABLES - DEV ICE Final Result Performing Organization Address [facility] de Phone Number [facility] [place] [address] * (ABNORMAL) eGFR (09/23/2024 11:05 PM CDT) [...] MD LAB BLOOD ORDERABLES F inal Result [facility] Department [place] [address] * Differential, auto (09/23/2024 11:05 PM CDT) Neutrophil abs 4.40 1.50 - 6.50 K/cumm Imm gran abs 0.02 0.00 - 0.10 K/cumm [facility] Lymphocyte abs 2.23 0.80 - 3.30 K/cumm [facility] Monocyte abs 0.72 0.20 - 0.80 K/cumm [facility] Eosinophil abs 0.13 0.00 - 0.50 K/cumm [facility] Basophil abs 0.04 0.00 - 0.10 K/cumm [facility] Neutrophil pct 58.4 % [facility] Comment: Interpretive Data Percent cell count reference ranges are not reported, since discordance with absolute values may lead to misinterpretation of CBC data. Current Interpretive Data was last revised on 2017. Imm gran pct 0.3 % [facility] Comment: Interpretive Data Percent cell count reference ranges are not reported, since discordance with absolute values may lead to misinterpretation of CBC data. Current Interpretive Data was last revised on 2017. Lymphocyte pct 29.6 % [facility] Comment: Interpretive Data Percent cell count reference ranges are not reported, since discordance with absolute values may lead to misinterpretation of CBC data. Current Interpretive Data was last revised on 2017. Monocyte pct 9.5 % [facility] Comment: Interpretive Data Percent cell count reference ranges are not reported, since discordance with absolute values may lead to misinterpretation of CBC data. Current Interpretive Data was last revised on 2017. Eosinophil pct 1.7 % [facility] Comment: Interpretive Data Percent cell count reference ranges are not reported, since discordance with absolute values may lead to misinterpretation of CBC data. Current Interpretive Data was last revised on 2017. Basophil pct 0.5 % [facility] Comment: Interpretive Data Percent cell count reference ranges are not reported, since discordance with absolute values may lead to misinterpretation of CBC data. Current Interpretive Data was last revised on 2017. Blood 09/23/2024 11:0 5 PM CDT 09/24/2024 1:14 AM CDT Elizabet Dickey MD LAB BLOOD ORDERABLES F inal Result [facility] Department [place] [address] * (ABNORMAL) CBC with auto differential (09/23/2024 11:05 PM CDT) WBC 7.54 3.80 - 9.90 K/cumm Hgb 8.4(L) 11.9 - 15.5 g/dL [facility] Hct 27.1(L) 35.6 - 45.5 % [facility] Plt 224 150 - 400 K/cumm [facility] MPV 10.8 9.1 - 12.3 fL [facility] RBC 3.04(L) 3.90 - 5.20 M/cumm [facility] MCV 89.1 81.3 - 96.4 fL [facility] MCH 27.6 27.1 - 33.3 pg [facility] MCHC 31.0(L) 32.3 - 35.7 g/dL [facility] RDW CV 17.8(H) 11.1 - 14.9 % [facility] RDW SD 57.4(H) 35.7 - 48.1 fL [facility] NRBC abs 0.00 0.00 - 0.01 K/cumm [facility] Blood 09/23/2024 11:0 5 PM CDT 09/24/2024 1:14 AM CDT Elizabet Dickey MD LAB BLOOD ORDERABLES F inal Result Performing Organization Address City/[facility] Co de Phone Number [facility] [place] [address] * Phosphorus (09/23/2024 11:05 PM CDT) Phosphorus, pl 2.8 2.3 - 4.5 mg/dL Blood 09/23/2024 11:0 5 PM CDT 09/23/2024 11:59 PM CDT Kirk Gaming MD LAB BLOOD ORDERABLES F inal Result Performing Organization Address [facility] de Phone Number [facility] [place] [address] * Bilirubin, direct (09/23/2024 11:05 PM CDT) Bilirubin, direct <0.2 0.1 - 0.3 mg/dL Comment:Repeated and Verifie d Blood 09/23/2024 11:0 5 PM CDT 09/23/2024 11:59 PM CDT Kirk Gaming MD LAB BLOOD ORDERABLES F inal Result Performing Organization Address City/[facility] Co de Phone Number [facility] [place] [address] * (ABNORMAL) Comprehensive metabolic panel (09/23/2024 11:05 PM CDT) Sodium 134(L) 135 - 145 mmol/L Potassium, pl 4.0 3.3 - 4.9 mmol/L [facility] Chloride 97 97 - 110 mmol/L [facility] CO2 30 22 - 32 mmol/L [facility] Anion gap 7 2 - 15 mmol/L [facility] BUN 25 6 - 25 mg/dL [facility] Creatinine 4.85(H) 0.60 - 1.10 mg/dL [facility] Glucose 84 70 - 199 mg/dL [facility] Comment: Interpretive Data Fasting glucose >/= [...] 2022. Calcium 8.0(L) 8.5 - 10.3 mg/dL [facility] Bilirubin, total 0.5 0.1 - 1.2 mg/dL [facility] Protein, pl 7.7 6.5 - 8.5 g/dL [facility] Albumin 2.1(L) 3.5 - 5.0 g/dL [facility] Alk phos 107 40 - 130 Units/L [facility] ALT 5(L) 7 - 45 Units/L [facility] AST 17 10 - 45 Units/L [facility] Blood 09/23/2024 11:0 5 PM CDT 09/23/2024 11:59 PM CDT us Kirk Gaming MD LAB BLOOD ORDERABLES F inal Result [facility] Department [place] [address] * POCT glucose (09/23/2024 6:42 PM CDT) Glucose, POC 85 70 - 199 mg/dL Blood 09/23/2024 6:42 PM CDT 09/23/2024 6:42 PM CDT us Gianni Huerta MD LAB POCT ORDERABLES - DEV ICE Final Result Performing Organization Address [facility] Co de Phone Number [facility] [place] [address] * POCT glucose (09/23/2024 12:55 PM CDT) Glucose, POC 76 70 - 199 mg/dL Blood 09/23/2024 12:5 5 PM CDT 09/23/2024 12:55 PM CDT Gianni Huerta MD LAB POCT ORDERABLES - DEV ICE Final Result Performing Organization Address [facility] Co de Phone Number [facility] [place] [address] * POCT glucose (09/23/2024 9:34 AM CDT) Glucose, POC 71 70 - 199 mg/dL Blood 09/23/2024 9:34 AM CDT 09/23/2024 9:34 AM CDT Gianni Huerta MD LAB POCT ORDERABLES - DEV ICE Final Result Performing Organization Address City/[facility] Co de Phone Number [facility] [place] [address] * POCT glucose (09/23/2024 12:28 AM CDT) Glucose, POC 89 70 - 199 mg/dL Blood 09/23/2024 12:2 8 AM CDT 09/23/2024 12:28 AM CDT us iGanni Huerta MD LAB POCT ORDERABLES - DEV ICE Final Result Performing Organization Address [facility] de Phone Number [facility] [place] [address] * POCT glucose (09/22/2024 4:05 PM CDT) Glucose, POC 98 70 - 199 mg/dL Blood 09/22/2024 4:05 PM CDT 09/22/2024 4:05 PM CDT us Gianni Huerta MD LAB POCT ORDERABLES - DEV ICE Final Result Performing Organization Address [facility] de Phone Number [facility] [place] [address] * POCT glucose (09/22/2024 1:35 PM CDT) Glucose, POC 113 70 - 199 mg/dL Blood 09/22/2024 1:35 PM CDT 09/22/2024 1:35 PM CDT us Gianni Huerta MD LAB POCT ORDERABLES - DEV ICE Final Result Performing Organization Address [facility] de Phone Number [facility] [place] [address] * (ABNORMAL) POCT glucose (09/22/2024 12:20 PM CDT) Glucose, POC 69(L) 70 - 199 mg/dL Comment:Glu2: RN/MD Notified Glucose comment 1 Glu2: RN/MD Notified [facility] Blood 09/22/2024 12:2 0 PM CDT 09/22/2024 12:20 PM CDT us Gianni Huerta MD LAB POCT ORDERABLES - DEV ICE Final Result Performing Organization Address [facility] de Phone Number [facility] [place] [address] * POCT glucose (09/22/2024 8:14 AM CDT) Glucose, POC 103 70 - 199 mg/dL Blood 09/22/2024 8:1 4 AM CDT 09/22/2024 8:14 AM CDT us Gianni Huerta MD LAB POCT ORDERABLES - DEV ICE Final Result Performing Organization Address [facility] de Phone Number [facility] [place] [address] * (ABNORMAL) POCT glucose (09/22/2024 7:25 AM CDT) Glucose, POC 66(L) 70 - 199 mg/dL Blood 09/22/2024 7:25 AM CDT 09/22/2024 7:25 AM CDT us Gianni Huerta MD LAB POCT ORDERABLES - DEV ICE Final Result Performing Organization Address [facility] de Phone Number [facility] [place] [address] * POCT glucose (09/21/2024 9:12 PM CDT) Glucose, POC 120 70 - 199 mg/dL Blood 09/21/2024 9:12 PM CDT 09/21/2024 9:12 PM CDT us Gianni Huerta MD LAB POCT ORDERABLES - DEV ICE Final Result Performing Organization Address [facility] [place] [address] * POCT glucose (09/21/2024 4:21 PM CDT) Glucose, POC 104 70 - 199 mg/dL Blood 09/21/2024 4:21 PM CDT 09/21/2024 4:21 PM CDT us Gianin Huerta MD LAB POCT ORDERABLES - DEV ICE Final Result Performing Organization Address City/[facility] [place] [address] * POCT glucose (09/21/2024 1:56 PM CDT) Glucose, POC 102 70 - 199 mg/dL Blood 09/21/2024 1:56 PM CDT 09/21/2024 1:56 PM CDT Gianni Huerta MD LAB POCT ORDERABLES - DEV ICE Final Result Performing Organization Address [facility] [place] [address] * (ABNORMAL) POCT glucose (09/21/2024 1:25 PM CDT) Glucose, POC 62(L) 70 - 199 mg/dL Blood 09/21/2024 1:25 PM CDT 09/21/2024 1:25 PM CDT us Gianni Huerta MD LAB POCT ORDERABLES - [place] [address] * POCT glucose (09/21/2024 11:19 AM CDT) Glucose, POC 89 70 - 199 mg/dL Blood 09/21/2024 11:1 9 AM CDT 09/21/2024 11:19 AM CDT Gianni Huerta MD LAB POCT ORDERABLES - DEV ICE Final Result Performing Organization Address [facility] Co de Phone Number [facility] [place] [address] * (ABNORMAL) POCT glucose (09/21/2024 10:03 AM CDT) Glucose, POC 69(L) 70 - 199 mg/dL Blood 09/21/2024 10:0 3 AM CDT 09/21/2024 10:03 AM CDT Gianni Huerta MD LAB POCT ORDERABLES - DEV ICE Final Result Performing Organization Address [facility] Co de Phone Number [facility] [place] [address] * POCT glucose (09/21/2024 8:02 AM CDT) Glucose, POC 73 70 - 199 mg/dL Blood 09/21/2024 8:02 AM CDT 09/21/2024 8:02 AM CDT Gianni Huerta MD LAB POCT ORDERABLES - DEV ICE Final Result Performing Organization Address City/[facility] Co de Phone Number [facility] [place] [address] * POCT glucose (09/20/2024 9:21 PM CDT) Glucose, POC 93 70 - 199 mg/dL Blood 09/20/2024 9:21 PM CDT 09/20/2024 9:21 PM CDT us Gianni Huerta MD LAB POCT ORDERABLES - DEV ICE Final Result Performing Organization Address [facility] Co de Phone Number [facility] [place] [address] * (ABNORMAL) eGFR (09/20/2024 9:01 PM CDT) [...] ORDERABLES F inal Result Performing Organization Address City/[facility]/ZIP Co de Phone Number [facility] [place] [address] * Differential, auto (09/20/2024 9:01 PM CDT) Neutrophil abs 5.45 1.50 - 6.50 K/cumm Imm gran abs 0.04 0.00 - 0.10 K/cumm [facility] Lymphocyte abs 2.45 0.80 - 3.30 K/cumm [facility] Monocyte abs 0.80 0.20 - 0.80 K/cumm [facility] Eosinophil abs 0.14 0.00 - 0.50 K/cumm [facility] Basophil abs 0.03 0.00 - 0.10 K/cumm [facility] Neutrophil pct 61.2 % [facility] Comment: Interpretive Data Percent cell count reference ranges are not reported, since discordance with absolute values may lead to misinterpretation of CBC data. Current Interpretive Data was last revised on 2017. Imm gran pct 0.4 % [facility] Comment: Interpretive Data Percent cell count reference ranges are not reported, since discordance with absolute values may lead to misinterpretation of CBC data. Current Interpretive Data was last revised on 2017. Lymphocyte pct 27.5 % [facility] Comment: Interpretive Data Percent cell count reference ranges are not reported, since discordance with absolute values may lead to misinterpretation of CBC data. Current Interpretive Data was last revised on 2017. Monocyte pct 9.0 % [facility] Comment: Interpretive Data Percent cell count reference ranges are not reported, since discordance with absolute values may lead to misinterpretation of CBC data. Current Interpretive Data was last revised on 2017. Eosinophil pct 1.6 % [facility] Comment: Interpretive Data Percent cell count reference ranges are not reported, since discordance with absolute values may lead to misinterpretation of CBC data. Current Interpretive Data was last revised on 2017. Basophil pct 0.3 % [facility] Comment: Interpretive Data Percent cell count reference ranges are not reported, since discordance with absolute values may lead to misinterpretation of CBC data. Current Interpretive Data was last revised on 2017. Blood 09/20/2024 9:01 PM CDT 09/20/2024 9:58 PM CDT us Gianni Huerta MD LAB BLOOD ORDERABLES Florinda hanson Result [facility] Department [place] [address] * (ABNORMAL) CBC with auto differential (09/20/2024 9:01 PM CDT) WBC 8.91 3.80 - 9.90 K/cumm Hgb 9.4(L) 11.9 - 15.5 g/dL [facility] Hct 30.5(L) 35.6 - 45.5 % [facility] Plt 233 150 - 400 K/cumm [facility] MPV 10.7 9.1 - 12.3 fL [facility] RBC 3.44(L) 3.90 - 5.20 M/cumm [facility] MCV 88.7 81.3 - 96.4 fL [facility] MCH 27.3 27.1 - 33.3 pg [facility] MCHC 30.8(L) 32.3 - 35.7 g/dL [facility] RDW CV 18.2(H) 11.1 - 14.9 % [facility] RDW SD 57.8(H) 35.7 - 48.1 fL [facility] NRBC abs 0.00 0.00 - 0.01 K/cumm [facility] Blood 09/20/2024 9:01 PM CDT 09/20/2024 9:58 PM CDT Gianni Huerta MD LAB BLOOD ORDERABLES Florinda l Result Performing Organization Address City/[facility]/ZIP Co de Phone Number [facility] [place] [address] * Magnesium (09/20/2024 9:01 PM CDT) Pathologist [facility] Magnesium 1.7 1.4 - 2.5 mg/dL Blood 09/20/2024 9:01 PM CDT 09/20/2024 9:58 PM CDT us Gianni Huerta MD LAB BLOOD ORDERABLES Florinda l Result [facility] Department [place] [address] * (ABNORMAL) Renal function panel (09/20/2024 9:01 PM CDT) [facility] Sodium 133(L) 135 - 145 mmol/L Potassium, pl 3.9 3.3 - 4.9 mmol/L [facility] Chloride 98 97 - 110 mmol/L [facility] CO2 27 22 - 32 mmol/L [facility] Anion gap 8 2 - 15 mmol/L [facility] BUN 18 6 - 25 mg/dL [facility] Creatinine 3.72(H) 0.60 - 1.10 mg/dL [facility] Glucose 86 70 - 199 mg/dL [facility] Comment: Interpretive Data Fasting glucose >/= [...] 2022. Calcium 8.2(L) 8.5 - 10.3 mg/dL [facility] Phosphorus, pl 2.9 2.3 - 4.5 mg/dL [facility] Albumin 2.2(L) 3.5 - 5.0 g/dL [facility] Blood 09/20/2024 9:01 PM CDT 09/20/2024 9:58 PM CDT us Kirk Gaming MD LAB BLOOD ORDERABLES F inal Result [facility] [place] [address] * POCT glucose (09/20/2024 6:22 PM CDT) Glucose, POC 88 70 - 199 mg/dL Blood 09/20/2024 6:22 PM CDT 09/20/2024 6:22 PM CDT Result Camryn Huerta MD LAB POCT ORDERABLES - DEV ICE Final Result Performing Organization Address [facility] de Phone Number [facility] [place] [address] * POCT glucose (09/20/2024 4:20 PM CDT) Glucose, POC 86 70 - 199 mg/dL Blood 09/20/2024 4:20 PM CDT 09/20/2024 4:20 PM CDT Result Camryn Huerta MD LAB POCT ORDERABLES - DEV ICE Final Result Performing Organization Address [facility] de Phone Number [facility] [place] [address] * POCT glucose (09/20/2024 3:06 PM CDT) Glucose, POC 95 70 - 199 mg/dL Blood 09/20/2024 3:06 PM CDT 09/20/2024 3:06 PM CDT Result Camryn Huerta MD LAB POCT ORDERABLES - DEV ICE Final Result Performing Organization Address [facility] de Phone Number [facility] [place] [address] * (ABNORMAL) POCT glucose (09/20/2024 2:03 PM CDT) Glucose, POC 68(L) 70 - 199 mg/dL Comment:Glu2: RN/MD Notified Glucose comment 1 Glu2: RN/MD Notified [facility] Blood 09/20/2024 2:03 PM CDT 09/20/2024 2:03 PM CDT Result Camryn Huerta MD LAB POCT ORDERABLES - DEV ICE Final Result Performing Organization Address [facility] de Phone Number [facility] [place] [address] * POCT glucose (09/20/2024 11:04 AM CDT) Glucose, POC 79 70 - 199 mg/dL Blood 09/20/2024 11:0 4 AM CDT 09/20/2024 11:04 AM CDT us Gianni Huerta MD LAB POCT ORDERABLES - DEV ICE Final Result Performing Organization Address [facility] de Phone Number [facility] [place] [address] * POCT glucose (09/20/2024 9:48 AM CDT) Glucose, POC 79 70 - 199 mg/dL Blood 09/20/2024 9:48 AM CDT 09/20/2024 9:48 AM CDT Result Camryn Huerta MD LAB POCT ORDERABLES - DEV ICE Final Result Performing Organization Address [facility] [place] [address] * POCT glucose (09/20/2024 8:13 AM CDT) Glucose, POC 71 70 - 199 mg/dL Blood 09/20/2024 8:13 AM CDT 09/20/2024 8:13 AM CDT Result Camryn Huerta MD LAB POCT ORDERABLES - DEV ICE Final Result Performing Organization Address [facility] Co de Phone Number [facility] [place] [address] * POCT glucose (09/20/2024 5:56 AM CDT) Glucose, POC 76 70 - 199 mg/dL Blood 09/20/2024 5:56 AM CDT 09/20/2024 5:56 AM CDT Gianni Huerta MD LAB POCT ORDERABLES - DEV ICE Final Result Performing Organization Address [facility] [place] [address] * POCT glucose (09/20/2024 3:36 AM CDT) Glucose, POC 78 70 - 199 mg/dL Blood 09/20/2024 3:36 AM CDT 09/20/2024 3:36 AM CDT us Gianni Huerta MD LAB POCT ORDERABLES - DEV ICE Final Result Performing Organization Address [facility] Co de Phone Number [facility] [place] [address] * POCT glucose (09/20/2024 2:16 AM CDT) Glucose, POC 86 70 - 199 mg/dL Blood 09/20/2024 2:16 AM CDT 09/20/2024 2:16 AM CDT Result Camryn Huerta MD LAB POCT ORDERABLES - DEV ICE Final Result Performing Organization Address [facility] Co de Phone Number [facility] [place] [address] * (ABNORMAL) POCT glucose (09/20/2024 12:49 AM CDT) Glucose, POC 61(L) 70 - 199 mg/dL Blood 09/20/2024 12:4 9 AM CDT 09/20/2024 12:49 AM CDT Gianni Huerta MD LAB POCT ORDERABLES - DEV ICE Final Result Performing Organization Address City/[facility]/ZIP Co de Phone Number [facility] [place] [address] * POCT glucose (09/19/2024 10:35 PM CDT) Glucose, POC 125 70 - 199 mg/dL Blood 09/19/2024 10:3 5 PM CDT 09/19/2024 10:35 PM CDT Gianni Huerta MD LAB POCT ORDERABLES - DEV ICE Final Result Performing Organization Address City/[facility] Co de Phone Number [facility] [place] [address] * (ABNORMAL) POCT glucose (09/19/2024 9:13 PM CDT) Glucose, POC 69(L) 70 - 199 mg/dL Blood 09/19/2024 9:13 PM CDT 09/19/2024 9:13 PM CDT Gianni Huerta MD LAB POCT ORDERABLES - DEV ICE Final Result Performing Organization Address City/[facility] Co de Phone Number [facility] [place] [address] * POCT glucose (09/19/2024 6:36 PM CDT) Glucose, POC 75 70 - 199 mg/dL Blood 09/19/2024 6:36 PM CDT 09/19/2024 6:36 PM CDT Gianni Huerta MD LAB POCT ORDERABLES - DEV ICE Final Result Performing Organization Address City/[facility] Co de Phone Number [facility] [place] [address] * (ABNORMAL) POCT glucose (09/19/2024 5:51 PM CDT) Glucose, POC 68(L) 70 - 199 mg/dL Blood 09/19/2024 5:51 PM CDT 09/19/2024 5:51 PM CDT Gianni Huerta MD LAB POCT ORDERABLES - DEV ICE Final Result Performing Organization Address [facility] de Phone Number [facility] [place] [address] * TRANSTHORACIC ECHO (TTE) LIMITED/FOLLOW UP W LTD DOPPLER/CF WO CONTRAST (09/19/2024 5:11 PM CDT) Anatomical Region Laterality Modality Ultrasound 09/19/2024 4:16 PM CDT Narrative 09/19/2024 5:51 PM CDT [facility] [place] [address] Transthoracic Echocardiographic Report Patient Name: TIFFANY MILLERAbdirizak : 1995 (29y ) Gender: F Study Date: 09/19/2024 04:16:47 PM Ht(Inch): 67 Wt(Lb): 164.9 BSA: 1.88 [employer]en Suiting Shrinker: Diana Urbano RDCS Location: [id number] Order Provider: GIANNI HUERTA Heart Rate: 103 BMI: 25.82 BP: 146/112 Ref Provider: DEANNAMAIDAAbdirizak PROCEDURES: Echocardiographic Report: Limited transthoracic 2D echo, [...] Procedure Note Benjamin Parson MD - 09/19/2024 [facility] [place] [address] Transthoracic Echocardiographic Report Patient Name: TIFFANY MILLER T : 1995 (29y ) Gender: F Study Date: 09/19/2024 04:16:47 PM Ht(Inch): 67 Wt(Lb): 164.9 BSA: 1.88 [employer]en Suit[employer] Shrinker: Diana Urbano RDCS Location: [id number] Order Provider:GIANNI HUERTA Heart Rate: 103 BMI: [...] Benjamin Parson MD 09/19/2024 5:51:16 PM CDT Result Camryn Huerta MD CV ECHO PROCEDURES Final Result * POCT glucose (09/19/2024 1:50 AM CDT) Glucose, POC 121 70 - 199 mg/dL Blood 09/19/2024 1:50 AM CDT 09/19/2024 1:50 AM CDT Result Camryn Huerta MD LAB POCT ORDERABLES - DEV ICE Final Result Performing Organization Address [facility] de Phone Number [facility] [place] [address] * POCT glucose (09/19/2024 12:26 AM CDT) Glucose, POC 92 70 - 199 mg/dL Blood 09/19/2024 12:2 6 AM CDT 09/19/2024 12:26 AM CDT Result [facility] us Gianni Huerta MD LAB POCT ORDERABLES - DEV ICE Final Result Performing Organization Address City/[facility] de Phone Number [facility] [place] [address] * POCT glucose (09/18/2024 11:12 PM CDT) Glucose, POC 73 70 - 199 mg/dL Blood 09/18/2024 11:1 2 PM CDT 09/18/2024 11:12 PM CDT Result Camryn Clarkequi MD LAB POCT ORDERABLES - DEV ICE Final Result [facility] [place] [address] * (ABNORMAL) POCT glucose (09/18/2024 10:55 PM CDT) Glucose, POC 65(L) 70 - 199 mg/dL Blood 09/18/2024 10:5 5 PM CDT 09/18/2024 10:55 PM CDT Gianni Huerta MD LAB POCT ORDERABLES - DEV ICE Final Result Performing Organization Address City/[facility] Co de Phone Number [facility] [place] [address] * (ABNORMAL) eGFR (09/18/2024 8:36 PM CDT) eGFR 17(L) >=60 mL/min/1. 73 [...] MD LAB BLOOD ORDERABLES F inal Result [facility] [place] [address] * (ABNORMAL) Renal function panel (09/18/2024 8:36 PM CDT) Sodium 134(L) 135 - 145 mmol/L Potassium, pl 4.3 3.3 - 4.9 mmol/L [facility] Chloride 97 97 - 110 mmol/L [facility] CO2 27 22 - 32 mmol/L [facility] Anion gap 10 2 - 15 mmol/L [facility] BUN 18 6 - 25 mg/dL [facility] Creatinine 3.60(H) 0.60 - 1.10 mg/dL [facility] Glucose 68(L) 70 - 199 mg/dL [facility] Comment: Interpretive Data Fasting glucose >/= [...] 2022. Calcium 8.2(L) 8.5 - 10.3 mg/dL [facility] Phosphorus, pl 3.0 2.3 - 4.5 mg/dL [facility] Albumin 2.1(L) 3.5 - 5.0 g/dL [facility] Blood 09/18/2024 8:36 PM CDT 09/18/2024 9:25 PM CDT Kirk Gaming MD LAB BLOOD ORDERABLES F inal Result [facility] [place] [address] * POCT glucose (09/18/2024 8:00 PM CDT) Glucose, POC 88 70 - 199 mg/dL Comment:Glu2: RN/MD Notified Glucose comment 1 Glu2: RN/MD Notified [facility] Blood 09/18/2024 8:00 PM CDT 09/18/2024 8:00 PM CDT Gianni Huerta MD LAB POCT ORDERABLES - DEV ICE Final Result [facility] [place] [address] * POCT glucose (09/18/2024 5:57 PM CDT) Glucose, POC 77 70 - 199 mg/dL Blood 09/18/2024 5:57 PM CDT 09/18/2024 5:57 PM CDT Gianni Huerta MD LAB POCT ORDERABLES - DEV ICE Final Result Performing Organization Address [facility] Co de Phone Number [facility] [place] [address] * XR Abdomen Ap 1 Vw (09/18/2024 [...] DEV ICE Final Result Performing Organization Address [facility] Co de Phone Number [facility] [place] [address] * POCT glucose (09/18/2024 10:23 AM CDT) Glucose, POC 110 70 - 199 mg/dL Blood 09/18/2024 10:2 3 AM CDT 09/18/2024 10:23 AM CDT us Gianni Huerta MD LAB POCT ORDERABLES - DEV ICE Final Result Performing Organization Address [facility] Co de Phone Number [facility] [place] [address] * POCT glucose (09/18/2024 9:02 AM CDT) Glucose, POC 137 70 - 199 mg/dL Blood 09/18/2024 9:02 AM CDT 09/18/2024 9:02 AM CDT Gianni Huerta MD LAB POCT ORDERABLES - DEV ICE Final Result Performing Organization Address [facility] de Phone Number [facility] [place] [address] * (ABNORMAL) POCT glucose (09/18/2024 7:48 AM CDT) Glucose, POC 66(L) 70 - 199 mg/dL Blood 09/18/2024 7:48 AM CDT 09/18/2024 7:48 AM CDT Result [facility] Gianni Huerta MD LAB POCT ORDERABLES - DEV ICE Final Result Performing Organization Address [facility] de Phone Number [facility] [facility] [place] [address] * Cortisol (09/18/2024 6:17 AM CDT) [facility] Cortisol 15.5 4.8 - 19.5 mcg/dL Comment: Interpretive Data: Morning hours 6-10 a.m. 4.8 - 19.5 mcg/dL Afternoon hours 4-8 p.m. 2.5 - 11.9 mcg/dL This analyte undergoes marked diurnal variation. Current interpretive data was last revised 23. Blood 09/18/2024 6:17 AM CDT 09/18/2024 7:35 AM CDT Valerie Cooper MD PhD LAB BLOOD ORDERABLES Final Result Performing Organization Address [facility] Co de Phone Number [facility] [place] [address] * POCT glucose (09/17/2024 10:21 PM CDT) Glucose, POC 105 70 - 199 mg/dL Blood 09/17/2024 10:2 1 PM CDT 09/17/2024 10:21 PM CDT Valerie Cooper MD PhD LAB POCT ORDERABLES - DEVICE Final Result Performing Organization Address [facility] Co de Phone Number [facility] [place] [address] * POCT glucose (09/17/2024 9:21 PM CDT) Glucose, POC 149 70 - 199 mg/dL Blood 09/17/2024 9:21 PM CDT 09/17/2024 9:21 PM CDT Valerie Cooper MD PhD LAB POCT ORDERABLES - DEVICE Final Result Performing Organization Address [facility] Co de Phone Number [facility] [place] [address] * POCT glucose (09/17/2024 8:54 PM CDT) Glucose, POC 96 70 - 199 mg/dL Blood 09/17/2024 8:54 PM CDT 09/17/2024 8:54 PM CDT Valerie Cooepr MD PhD LAB POCT ORDERABLES - DEVICE Final Result Performing Organization Address City/[facility] Co de Phone Number [facility] [place] [address] * POCT glucose (09/17/2024 8:17 PM CDT) Glucose, POC 97 70 - 199 mg/dL Blood 09/17/2024 8:17 PM CDT 09/17/2024 8:17 PM CDT Valerie Cooper MD PhD LAB POCT ORDERABLES - DEVICE Final Result Performing Organization Address [facility] Co de Phone Number [facility] [place] [address] * POCT glucose (09/17/2024 8:01 PM CDT) Glucose, POC 83 70 - 199 mg/dL Blood 09/17/2024 8:01 PM CDT 09/17/2024 8:01 PM CDT Valerie Cooper MD PhD LAB POCT ORDERABLES - DEVICE Final Result Performing Organization Address [facility] Co de Phone Number [facility] [place] [address] * POCT glucose (09/17/2024 7:48 PM CDT) Glucose, POC 78 70 - 199 mg/dL Blood 09/17/2024 7:48 PM CDT 09/17/2024 7:48 PM CDT Valerie Cooper MD PhD LAB POCT ORDERABLES - DEVICE Final Result Performing Organization Address [facility] Co de Phone Number [facility] [place] [address] * (ABNORMAL) POCT glucose (09/17/2024 7:21 PM CDT) Glucose, POC 68(L) 70 - 199 mg/dL Blood 09/17/2024 7:21 PM CDT 09/17/2024 7:21 PM CDT Valerie Cooper MD PhD LAB POCT ORDERABLES - DEVICE Final Result Performing Organization Address [facility] Co de [place] [address] * POCT glucose (09/17/2024 6:49 PM CDT) Glucose, POC 91 70 - 199 mg/dL Blood 09/17/2024 6:49 PM CDT 09/17/2024 6:49 PM CDT Valerie Cooper MD PhD LAB POCT ORDERABLES - DEVICE Final Result Performing Organization Address City/[facility]/[place] [address] * POCT glucose (09/17/2024 6:11 PM CDT) Glucose, POC 70 70 - 199 mg/dL Blood 09/17/2024 6:11 PM CDT 09/17/2024 6:11 PM CDT Valerie Cooper MD PhD LAB POCT ORDERABLES - DEVICE Final Result Performing Organization Address City/[facility]/[place] [address] * POCT glucose (09/17/2024 12:03 PM CDT) Glucose, POC 73 70 - 199 mg/dL Blood 09/17/2024 12:0 3 PM CDT 09/17/2024 12:03 PM CDT Valerie Cooper MD PhD LAB POCT ORDERABLES - DEVICE Final Result Performing Organization Address City/[facility]/[place] [address] * POCT glucose (09/17/2024 9:18 AM CDT) Glucose, POC 118 70 - 199 mg/dL Blood 09/17/2024 9:18 AM CDT 09/17/2024 9:18 AM CDT Valerie Cooper MD PhD LAB POCT ORDERABLES - DEVICE Final Result Performing Organization Address [facility] de Phone Number [facility] [place] [address] * (ABNORMAL) POCT glucose (09/17/2024 8:42 AM CDT) Glucose, POC 64(L) 70 - 199 mg/dL Blood 09/17/2024 8:42 AM CDT 09/17/2024 8:42 AM CDT Valerie Cooper MD PhD LAB POCT ORDERABLES - DEVICE Final Result Performing Organization Address [facility] de Phone Number [facility] [place] [address] * (ABNORMAL) POCT glucose (09/17/2024 7:57 AM CDT) Glucose, POC 68(L) 70 - 199 mg/dL Blood 09/17/2024 7:57 AM CDT 09/17/2024 7:57 AM CDT Valerie Cooper MD PhD LAB POCT ORDERABLES - DEVICE Final Result Performing Organization Address [facility] de Phone Number [facility] [place] [address] * POCT glucose (09/17/2024 1:34 AM CDT) Glucose, POC 102 70 - 199 mg/dL Blood 09/17/2024 1:34 AM CDT 09/17/2024 1:34 AM CDT Valerie Cooper MD PhD LAB POCT ORDERABLES - DEVICE Final Result Performing Organization Address City/[facility]/ZIP Co de Phone Number [facility] [place] [address] * POCT glucose (09/17/2024 1:25 AM CDT) Glucose, POC 74 70 - 199 mg/dL Blood 09/17/2024 1:25 AM CDT 09/17/2024 1:25 AM CDT Valerie Cooper MD PhD LAB POCT ORDERABLES - DEVICE Final Result Performing Organization Address City/[facility] Co de Phone Number [facility] [place] [address] * POCT glucose (09/17/2024 1:19 AM CDT) Glucose, POC 81 70 - 199 mg/dL Blood 09/17/2024 1:19 AM CDT 09/17/2024 1:19 AM CDT Valerie Cooper MD PhD LAB POCT ORDERABLES - DEVICE Final Result Performing Organization Address City/[facility]/ZIP Co de Phone Number [facility] [place] [address] * POCT glucose (09/16/2024 9:23 PM CDT) Glucose, POC 80 70 - 199 mg/dL Blood 09/16/2024 9:23 PM CDT 09/16/2024 9:23 PM CDT Valerie Cooper MD PhD LAB POCT ORDERABLES - DEVICE Final Result Performing Organization Address City/[facility]/ZIP Co de Phone Number [facility] [place] [address] * (ABNORMAL) eGFR (09/16/2024 9:17 PM CDT) [...] PM CDT 09/16/2024 9:56 PM CDT us iKrk Gaming MD LAB BLOOD ORDERABLES F inal Result [facility] [place] [address] * (ABNORMAL) Differential, auto (09/16/2024 9:17 PM CDT) Neutrophil abs 6.12 1.50 - 6.50 K/cumm Imm gran abs 0.07 0.00 - 0.10 K/cumm [facility] Lymphocyte abs 2.70 0.80 - 3.30 K/cumm [facility] Monocyte abs 0.88(H) 0.20 - 0.80 K/cumm [facility] Eosinophil abs 0.13 0.00 - 0.50 K/cumm [facility] Basophil abs 0.05 0.00 - 0.10 K/cumm [facility] Neutrophil pct 61.6 % [facility] Comment: Interpretive Data Percent cell count reference ranges are not reported, since discordance with absolute values may lead to misinterpretation of CBC data. Current Interpretive Data was last revised on 2017. Imm gran pct 0.7 % [facility] Comment: Interpretive Data Percent cell count reference ranges are not reported, since discordance with absolute values may lead to misinterpretation of CBC data. Current Interpretive Data was last revised on 2017. Lymphocyte pct 27.1 % [facility] Comment: Interpretive Data Percent cell count reference ranges are not reported, since discordance with absolute values may lead to misinterpretation of CBC data. Current Interpretive Data was last revised on 2017. Monocyte pct 8.8 % [facility] Comment: Interpretive Data Percent cell count reference ranges are not reported, since discordance with absolute values may lead to misinterpretation of CBC data. Current Interpretive Data was last revised on 2017. Eosinophil pct 1.3 % [facility] Comment: Interpretive Data Percent cell count reference ranges are not reported, since discordance with absolute values may lead to misinterpretation of CBC data. Current Interpretive Data was last revised on 2017. Basophil pct 0.5 % [facility] Comment: Interpretive Data Percent cell count reference ranges are not reported, since discordance with absolute values may lead to misinterpretation of CBC data. Current Interpretive Data was last revised on 2017. Blood 09/16/2024 9:17 PM CDT 09/16/2024 9:56 PM CDT Elizabet Dickey MD LAB BLOOD ORDERABLES F inal Result [facility] [place], [place] [id number] * (ABNORMAL) CBC with auto differential (09/16/2024 9:17 PM CDT) WBC 9.95(H) 3.80 - 9.90 K/cumm Hgb 9.6(L) 11.9 - 15.5 g/dL [facility] Hct 30.7(L) 35.6 - 45.5 % [facility] Plt 285 150 - 400 K/cumm [facility] MPV 10.6 9.1 - 12.3 fL [facility] RBC 3.47(L) 3.90 - 5.20 M/cumm [facility] MCV 88.5 81.3 - 96.4 fL [facility] MCH 27.7 27.1 - 33.3 pg [facility] MCHC 31.3(L) 32.3 - 35.7 g/dL [facility] RDW CV 18.5(H) 11.1 - 14.9 % [facility] RDW SD 56.5(H) 35.7 - 48.1 fL [facility] NRBC abs 0.00 0.00 - 0.01 K/cumm [facility] Blood 09/16/2024 9:17 PM CDT 09/16/2024 9:56 PM CDT Elizabet Dickey MD LAB BLOOD ORDERABLES F inal Result [facility] [place], [place] [id number] * Phosphorus (09/16/2024 9:17 PM CDT) Phosphorus, pl 2.6 2.3 - 4.5 mg/dL Blood 09/16/2024 9:17 PM CDT 09/16/2024 9:56 PM CDT Kirk Gaming MD LAB BLOOD ORDERABLES F inal Result [facility] [place] [address] * Bilirubin, direct (09/16/2024 9:17 PM CDT) Bilirubin, direct 0.2 0.1 - 0.3 mg/dL Blood 09/16/2024 9:17 PM CDT 09/16/2024 9:56 PM CDT us Kirk Gaming MD LAB BLOOD ORDERABLES F inal Result [facility] [place] [address] * (ABNORMAL) Comprehensive metabolic panel (09/16/2024 9:17 PM CDT) Sodium 134(L) 135 - 145 mmol/L Potassium, pl 4.3 3.3 - 4.9 mmol/L [facility] Chloride 100 97 - 110 mmol/L [facility] CO2 27 22 - 32 mmol/L [facility] Anion gap 7 2 - 15 mmol/L [facility] BUN 21 6 - 25 mg/dL [facility] Creatinine 4.09(H) 0.60 - 1.10 mg/dL [facility] Glucose 83 70 - 199 mg/dL [facility] Comment: Interpretive Data Fasting glucose >/= [...] Calcium 8.3(L) 8.5 - 10.3 mg/dL [facility] Bilirubin, total 0.5 0.1 - 1.2 mg/dL [facility] Protein, pl 8.2 6.5 - 8.5 g/dL [facility] Albumin 2.1(L) 3.5 - 5.0 g/dL [facility] Alk phos 111 40 - 130 Units/L [facility] ALT 9 7 - 45 Units/L [facility] AST 17 10 - 45 Units/L [facility] Blood 09/16/2024 9:17 PM CDT 09/16/2024 9:56 PM CDT Kirk Gaming MD LAB BLOOD ORDERABLES F inal Result Performing Organization Address [facility] Co de Phone Number [facility] [place] [address] * POCT glucose (09/16/2024 6:39 PM CDT) Glucose, POC 96 70 - 199 mg/dL Comment:Glu2: RN/MD Notified Glucose comment 1 Glu2: RN/MD Notified [facility] Blood 09/16/2024 6:39 PM CDT 09/16/2024 6:39 PM CDT Valerie Cooper MD PhD LAB POCT ORDERABLES - DEVICE Final Result Performing Organization Address [facility] Co de Phone Number [facility] [place] [address] * (ABNORMAL) POCT glucose (09/16/2024 6:09 PM CDT) Glucose, POC 67(L) 70 - 199 mg/dL Blood 09/16/2024 6:09 PM CDT 09/16/2024 6:09 PM CDT Valerie Cooper MD PhD LAB POCT ORDERABLES - DEVICE Final Result Performing Organization Address [facility] Co de Phone Number [facility] [place] [address] * POCT glucose (09/16/2024 12:08 PM CDT) Glucose, POC 72 70 - 199 mg/dL Blood 09/16/2024 12:0 8 PM CDT 09/16/2024 12:08 PM CDT Valerie Cooper MD PhD LAB POCT ORDERABLES - DEVICE Final Result Performing Organization Address [facility] Co de Phone Number [facility] [place] [address] * POCT glucose (09/16/2024 7:54 AM CDT) Glucose, POC 72 70 - 199 mg/dL Blood 09/16/2024 7:54 AM CDT 09/16/2024 7:54 AM CDT Valerie Cooper MD PhD LAB POCT ORDERABLES - DEVICE Final Result Performing Organization Address [facility] de Phone Number [facility] [place] [address] * POCT glucose (09/15/2024 9:09 PM CDT) Glucose, POC 103 70 - 199 mg/dL Blood 09/15/2024 9:09 PM CDT 09/15/2024 9:09 PM CDT Valerie Cooper MD PhD LAB POCT ORDERABLES - DEVICE Final Result Performing Organization Address [facility] de Phone Number [facility] [place] [address] * POCT glucose (09/15/2024 6:04 PM CDT) Glucose, POC 85 70 - 199 mg/dL Comment:Glu2: RN/MD Notified Glucose comment 1 Glu2: RN/MD Notified [facility] Blood 09/15/2024 6:04 PM CDT 09/15/2024 6:04 PM CDT Valerie Cooper MD PhD LAB POCT ORDERABLES - DEVICE Final Result Performing Organization Address City/[facility] Co de Phone Number [facility] [place] [address] * POCT glucose (09/15/2024 1:04 PM CDT) Glucose, POC 102 70 - 199 mg/dL Blood 09/15/2024 1:04 PM CDT 09/15/2024 1:04 PM CDT Valerie Cooper MD PhD LAB POCT ORDERABLES - DEVICE Final Result Performing Organization Address [facility] [place] [address] * (ABNORMAL) POCT glucose (09/15/2024 12:27 PM CDT) Glucose, POC 56(L) 70 - 199 mg/dL Blood 09/15/2024 12:2 7 PM CDT 09/15/2024 12:27 PM CDT Valerie Cooper MD PhD LAB POCT ORDERABLES - DEVICE Final Result Performing Organization Address City/[facility]/ZIP Co de Phone Number [facility] [place] [address] * POCT glucose (09/14/2024 9:26 PM CDT) Glucose, POC 117 70 - 199 mg/dL Blood 09/14/2024 9:26 PM CDT 09/14/2024 9:26 PM CDT Valerie Cooper MD PhD LAB POCT ORDERABLES - DEVICE Final Result Performing Organization Address City/[facility]/ZIP Co de Phone Number [facility] [place] [address] * POCT glucose (09/14/2024 7:00 PM CDT) Glucose, POC 96 70 - 199 mg/dL Blood 09/14/2024 7:00 PM CDT 09/14/2024 7:00 PM CDT Valerie Cooper MD PhD LAB POCT ORDERABLES - DEVICE Final Result Performing Organization Address [facility] Co de Phone Number [facility] [place] [address] * POCT glucose (09/14/2024 6:48 PM CDT) Glucose, POC 94 70 - 199 mg/dL Blood 09/14/2024 6:48 PM CDT 09/14/2024 6:48 PM CDT Valerie Cooper MD PhD LAB POCT ORDERABLES - DEVICE Final Result Performing Organization Address [facility] Co de Phone Number [facility] [place] [address] * POCT glucose (09/14/2024 2:34 PM CDT) Glucose, POC 119 70 - 199 mg/dL Blood 09/14/2024 2:34 PM CDT 09/14/2024 2:34 PM CDT Valerie Cooper MD PhD LAB POCT ORDERABLES - DEVICE Final Result Performing Organization Address City/[facility] Co de Phone Number [facility] [place] [address] * POCT glucose (09/14/2024 12:45 PM CDT) Glucose, POC 98 70 - 199 mg/dL Blood 09/14/2024 12:4 5 PM CDT 09/14/2024 12:45 PM CDT Valerie Cooper MD PhD LAB POCT ORDERABLES - DEVICE Final Result Performing Organization Address [facility] Co de Phone Number [facility] [place] [address] * (ABNORMAL) POCT glucose (09/14/2024 12:17 PM CDT) Glucose, POC 64(L) 70 - 199 mg/dL Comment:Glu2: RN/MD Notified Glucose comment 1 Glu2: RN/MD Notified [facility] Blood 09/14/2024 12:1 7 PM CDT 09/14/2024 12:17 PM CDT Valerie Cooper MD PhD LAB POCT ORDERABLES - DEVICE Final Result Performing Organization Address [facility] Co de Phone Number [facility] [place] [address] * POCT glucose (09/14/2024 9:30 AM CDT) Glucose, POC 121 70 - 199 mg/dL Blood 09/14/2024 9:30 AM CDT 09/14/2024 9:30 AM CDT Valerie Cooper MD PhD LAB POCT ORDERABLES - DEVICE Final Result Performing Organization Address [facility] Co de Phone Number [facility] [place] [address] * (ABNORMAL) POCT glucose (09/14/2024 8:15 AM CDT) Glucose, POC 69(L) 70 - 199 mg/dL Comment:Glu2: RN/MD Notified Glucose comment 1 Glu2: RN/MD Notified [facility] Blood 09/14/2024 8:15 AM CDT 09/14/2024 8:15 AM CDT us Valerie Cooper MD PhD LAB POCT ORDERABLES - DEVICE Final Result Performing Organization Address [facility] Co de Phone Number [facility] [place] [address] * (ABNORMAL) eGFR (09/13/2024 9:10 PM CDT) [...] ORDERABLES F inal Result Performing Organization Address City/[facility]/ZIP Co de Phone Number [facility] [place] [address] * (ABNORMAL) Reticulocyte Count (09/13/2024 9:10 PM CDT) Retics, absolute 66 20 - 87 K/cumm Retics 1.9 0.4 - 2.9 % [facility] Reticulocyte Hgb 29.0(L) 30.5 - 38.0 pg [facility] Blood 09/13/2024 9:10 PM CDT 09/13/2024 9:51 PM CDT us Valerie Cooper MD PhD LAB BLOOD ORDERABLES Final Result Performing Organization Address [facility] Co de Phone Number [facility] [place] [address] * (ABNORMAL) CBC without differential (09/13/2024 9:10 PM CDT) [facility] WBC 11.33(H) 3.80 - 9.90 K/cumm Hgb 9.6(L) 11.9 - 15.5 g/dL [facility] Hct 31.3(L) 35.6 - 45.5 % [facility] Plt 312 150 - 400 K/cumm [facility] MPV 11.6 9.1 - 12.3 fL [facility] RBC 3.54(L) 3.90 - 5.20 M/cumm [facility] MCV 88.4 81.3 - 96.4 fL [facility] MCH 27.1 27.1 - 33.3 pg [facility] MCHC 30.7(L) 32.3 - 35.7 g/dL [facility] RDW CV 17.5(H) 11.1 - 14.9 % [facility] RDW SD 55.4(H) 35.7 - 48.1 fL [facility] NRBC abs 0.00 0.00 - 0.01 K/cumm [facility] Blood 09/13/2024 9:10 PM CDT 09/13/2024 9:51 PM CDT us Valerie Cooper MD PhD LAB BLOOD ORDERABLES Final Result Performing Organization Address [facility]/ZIP Co de Phone Number [facility] [place] [address] * (ABNORMAL) Ferritin (09/13/2024 9:10 PM CDT) Ferritin 968(H) 13 - 150 ng/mL Blood 09/13/2024 9:10 PM CDT 09/13/2024 9:51 PM CDT us Valerie Cooper MD PhD LAB BLOOD ORDERABLES Final Result [facility] [place] [address] * (ABNORMAL) Renal function panel (09/13/2024 9:10 PM CDT) Sodium 131(L) 135 - 145 mmol/L Potassium, pl 4.1 3.3 - 4.9 mmol/L [facility] Chloride 96(L) 97 - 110 mmol/L [facility] CO2 28 22 - 32 mmol/L [facility] Anion gap 7 2 - 15 mmol/L [facility] BUN 18 6 - 25 mg/dL [facility] Creatinine 4.20(H) 0.60 - 1.10 mg/dL [facility] Glucose 120 70 - 199 mg/dL [facility] Comment: Interpretive Data Fasting glucose >/= [...] 2022. Calcium 8.2(L) 8.5 - 10.3 mg/dL [facility] Phosphorus, pl 2.6 2.3 - 4.5 mg/dL [facility] Albumin 2.1(L) 3.5 - 5.0 g/dL [facility] Blood 09/13/2024 9:10 PM CDT 09/13/2024 9:51 PM CDT us Kirk Gaming MD LAB BLOOD ORDERABLES F inal Result Performing Organization Address City/[facility]/ZIP Co de Phone Number [facility] [place] [address] * POCT glucose (09/13/2024 8:58 PM CDT) Glucose, POC 125 70 - 199 mg/dL Blood 09/13/2024 8:58 PM CDT 09/13/2024 8:58 PM CDT us Valerie Cooper MD PhD LAB POCT ORDERABLES - DEVICE Final Result Performing Organization Address [facility] Co de Phone Number [facility] [place] [address] * POCT glucose (09/13/2024 5:11 PM CDT) Glucose, POC 87 70 - 199 mg/dL Blood 09/13/2024 5:11 PM CDT 09/13/2024 5:11 PM CDT Valerie Cooper MD PhD LAB POCT ORDERABLES - DEVICE Final Result Performing Organization Address City/[facility]/ZIP Co de Phone Number [facility] [place] [address] * POCT glucose (09/13/2024 12:42 PM CDT) Glucose, POC 77 70 - 199 mg/dL Blood 09/13/2024 12:4 2 PM CDT 09/13/2024 12:42 PM CDT Valerie Cooper MD PhD LAB POCT ORDERABLES - DEVICE Final Result Performing Organization Address City/[facility]/ZIP Co de Phone Number [facility] [place] [address] * POCT glucose (09/13/2024 8:30 AM CDT) Glucose, POC 74 70 - 199 mg/dL Blood 09/13/2024 8:30 AM CDT 09/13/2024 8:30 AM CDT Valerie Cooper MD PhD LAB POCT ORDERABLES - DEVICE Final Result Performing Organization Address City/[facility] Co de Phone Number [facility] [place] [address] * POCT glucose (09/12/2024 8:51 PM CDT) Glucose, POC 88 70 - 199 mg/dL Blood 09/12/2024 8:51 PM CDT 09/12/2024 8:51 PM CDT Valerie Cooper MD PhD LAB POCT ORDERABLES - DEVICE Final Result Performing Organization Address [facility] de Phone Number [facility] [place] [address] * POCT glucose (09/12/2024 6:54 PM CDT) Glucose, POC 140 70 - 199 mg/dL Blood 09/12/2024 6:54 PM CDT 09/12/2024 6:54 PM CDT Valerie Cooper MD PhD LAB POCT ORDERABLES - DEVICE Final Result Performing Organization Address City/[facility] Co de Phone Number [facility] [place] [address] * POCT glucose (09/12/2024 5:13 PM CDT) Glucose, POC 74 70 - 199 mg/dL Blood 09/12/2024 5:13 PM CDT 09/12/2024 5:13 PM CDT Valerie Cooper MD PhD LAB POCT ORDERABLES - DEVICE Final Result Performing Organization Address [facility] Phone Number [facility] [place] [address] * POCT glucose (09/12/2024 12:37 PM CDT) Glucose, POC 73 70 - 199 mg/dL Blood 09/12/2024 12:3 7 PM CDT 09/12/2024 12:37 PM CDT Valerie Coopre MD PhD LAB POCT ORDERABLES - DEVICE Final Result Performing Organization Address [facility] Number [facility] [place] [address] * POCT glucose (09/12/2024 9:59 AM CDT) Glucose, POC 74 70 - 199 mg/dL Blood 09/12/2024 9:59 AM CDT 09/12/2024 9:59 AM CDT Valerie Cooper MD PhD LAB POCT ORDERABLES - DEVICE Final Result Performing Organization Address [facility] Phone Number [facility] [place] [address] * (ABNORMAL) eGFR (09/11/2024 10:32 PM CDT) [...] ORDERABLES F inal Result Performing Organization Address City/[facility]/ZIP Co de Phone Number [facility] [place] [address] * (ABNORMAL) Thyroid Function [place] (09/11/2024 10:32 PM CDT) TSH 8.58(H) 0.30 - 4.20 mcIUnit/mL Blood 09/11/2024 10:3 2 PM CDT 09/11/2024 11:21 PM CDT us Valerie Cooper MD PhD LAB BLOOD ORDERABLES Final Result Performing Organization Address City/[facility]/ZIP Co de Phone Number [facility] [place] [address] * T4, free (09/11/2024 10:32 PM CDT) Free T4 1.30 0.90 - 1.70 ng/dL Blood 09/11/2024 10:3 2 PM CDT 09/11/2024 11:21 PM CDT Narrative [facility] - 09/12/2024 4:41 PM CDT This test was reflexed from a TSH result. us Valerie Cooper MD PhD LAB BLOOD ORDERABLES Edited Result - Final [facility] [place] [address] * (ABNORMAL) Renal function panel (09/11/2024 10:32 PM CDT) Sodium 134(L) 135 - 145 mmol/L Potassium, pl 4.7 3.3 - 4.9 mmol/L [facility] Chloride 96(L) 97 - 110 mmol/L [facility] CO2 29 22 - 32 mmol/L [facility] Anion gap 9 2 - 15 mmol/L [facility] BUN 19 6 - 25 mg/dL [facility] Creatinine 4.31(H) 0.60 - 1.10 mg/dL [facility] Glucose 71 70 - 199 mg/dL [facility] Comment: Interpretive Data Fasting glucose >/= [...] 2022. Calcium 8.1(L) 8.5 - 10.3 mg/dL [facility] Phosphorus, pl 2.6 2.3 - 4.5 mg/dL [facility] Albumin 2.0(L) 3.5 - 5.0 g/dL [facility] Blood 09/11/2024 10:3 2 PM CDT 09/11/2024 11:21 PM CDT us Kirk Gaming MD LAB BLOOD ORDERABLES F inal Result [facility] [place] [address] * POCT glucose (09/11/2024 8:15 PM CDT) Glucose, POC 90 70 - 199 mg/dL Blood 09/11/2024 8:15 PM CDT 09/11/2024 8:15 PM CDT Valerie Cooper MD PhD LAB POCT ORDERABLES - [place] [address] * POCT glucose (09/11/2024 5:20 PM CDT) Glucose, POC 147 70 - 199 mg/dL Blood 09/11/2024 5:20 PM CDT 09/11/2024 5:20 PM CDT Valerie Cooper MD PhD LAB POCT ORDERABLES - DEVICE Final Result Performing Organization Address City/[facility]/[place] [address] * POCT glucose (09/11/2024 2:00 PM CDT) Glucose, POC 81 70 - 199 mg/dL Blood 09/11/2024 2:00 PM CDT 09/11/2024 2:00 PM CDT Valerie Cooper MD PhD LAB POCT ORDERABLES - DEVICE Final Result Performing Organization Address City/[facility]/[place] [address] * POCT glucose (09/11/2024 6:05 AM CDT) Glucose, POC 98 70 - 199 mg/dL Blood 09/11/2024 6:05 AM CDT 09/11/2024 6:05 AM CDT Valerie Cooper MD PhD LAB POCT ORDERABLES - DEVICE Final Result Performing Organization Address City/[facility]/ZIP Co de Phone Number [facility] [place] [address] * POCT glucose (09/11/2024 5:30 AM CDT) Glucose, POC 70 70 - 199 mg/dL Blood 09/11/2024 5:30 AM CDT 09/11/2024 5:30 AM CDT Valerie Cooper MD PhD LAB POCT ORDERABLES - DEVICE Final Result Performing Organization Address [facility] de Phone Number [facility] [place] [address] * Blood culture Blood (09/10/2024 11:04 PM CDT) Report Final Report: No growth Blood 09/10/2024 11:0 4 PM CDT 09/11/2024 12:43 AM CDT Narrative [facility] - 09/15/2024 7:00 AM CDT Collection->Peripheral [...] performance characteristics have been verified by the [facility] Microbiology Laboratory. For questions about this culture, contact the Microbiology Laboratory at [phone]. Interpretive data was last revised on 24. Kirk Gaming MD LAB MICROBIOLOGY - GEN ERAL ORDERABLES Final Result [facility] Department [place] [address] * Respiratory pathogen panel Nasopharyngeal (09/10/2024 8:50 PM CDT) Pathologist [facility] [place] Influenza A RNA Not Detected Not Detected Influenza B RNA Not Detected Not Detected [facility] RSV RNA Not Detected Not Detected [facility] COVID-19 RNA Not Detected Not Detected [facility] Coronavirus 229E RNA Not Detected Not Detected [facility] Coronavirus HKU1 RNA Not Detected Not Detected [facility] Coronavirus NL63 RNA Not Detected Not Detected [facility] Coronavirus OC43 RNA Not Detected Not Detected [facility] Adenovirus DNA Not Detected Not Detected [facility] Metapneumovirus RNA Not Detected Not Detected [facility] Rhinovirus/Enterov irus RNA Not Detected Not Detected [facility] Parainfluenza 1 RNA Not Detected Not Detected [facility] Parainfluenza 2 RNA Not Detected Not Detected [facility] Parainfluenza 3 RNA Not Detected Not Detected [facility] Parainfluenza 4 RNA Not Detected Not Detected [facility] B. pertussis DNA Not Detected Not Detected [facility] B. parapertussis DNA Not Detected Not Detected [facility] C. pneumoniae DNA Not Detected Not Detected [facility] M. pneumoniae DNA Not Detected Not Detected [facility] Nasopharyngeal 09/10/2024 8: 50 PM CDT 09/10/2024 9:17 PM CDT Narrative [facility] - 09/10/2024 10:22 PM CDT Is the Patient experiencing symptoms consistent with COVID?->Yes Surveillance testing for transplant patient?->No Interpretive Data The nuPSYS FilmArray Respiratory Panel (RP2.1) assay is a [...] assay has FDA clearance for testing of SPIKE MACHINE FEEDER swabs. The performance of additional specimen types has been assessed by the performing laboratory. The performance characteristics of this assay have been determined by [facility]. Current interpretive data was last revised on 22. us Kirk Gaming MD LAB MICROBIOLOGY - GEN ERAL ORDERABLES Final Result [facility] Department [place] [address] * POCT glucose (09/10/2024 8:35 PM CDT) Glucose, POC 83 70 - 199 mg/dL Blood 09/10/2024 8:35 PM CDT 09/10/2024 8:35 PM CDT us Kirk Gaming MD LAB POCT ORDERABLES - DEVICE Final Result Performing Organization Address [facility] Co de Phone Number [facility] Department [place] [address] * XR Chest 1 View (09/10/2024 11:32 [...] * POCT glucose (09/10/2024 8:54 AM CDT) Glucose, POC 84 70 - 199 mg/dL Blood 09/10/2024 8:54 AM CDT 09/10/2024 8:54 AM CDT Kirk Gaming MD LAB POCT ORDERABLES - DEVICE Final Result Performing Organization Address [facility] Co de Phone Number [facility] [place] [address] * POCT glucose (09/10/2024 4:52 AM CDT) Glucose, POC 103 70 - 199 mg/dL Blood 09/10/2024 4:52 AM CDT 09/10/2024 4:52 AM CDT Kirk Gaming MD LAB POCT ORDERABLES - DEVICE Final Result Performing Organization Address City/[facility] Co de Phone Number [facility] [place] [address] * (ABNORMAL) POCT glucose (09/10/2024 3:04 AM CDT) Glucose, POC 65(L) 70 - 199 mg/dL Blood 09/10/2024 3:04 AM CDT 09/10/2024 3:04 AM CDT Kirk Gaming MD LAB POCT ORDERABLES - DEVICE Final Result Performing Organization Address [facility] Co de Phone Number [facility] [place] [address] * (ABNORMAL) eGFR (09/09/2024 10:54 PM CDT) [...] ORDERABLES F inal Result Performing Organization Address City/[facility]/ZIP Co de Phone Number [facility] [place] [address] * (ABNORMAL) Differential, auto (09/09/2024 10:54 PM CDT) Neutrophil abs 10.52(H) 1.50 - 6.50 K/cumm Imm gran abs 0.11(H) 0.00 - 0.10 K/cumm [facility] Lymphocyte abs 2.89 0.80 - 3.30 K/cumm [facility] Monocyte abs 0.98(H) 0.20 - 0.80 K/cumm [facility] Eosinophil abs 0.13 0.00 - 0.50 K/cumm [facility] Basophil abs 0.05 0.00 - 0.10 K/cumm [facility] Neutrophil pct 71.7 % [facility] Comment: Interpretive Data Percent cell count reference ranges are not reported, since discordance with absolute values may lead to misinterpretation of CBC data. Current Interpretive Data was last revised on 2017. Imm gran pct 0.7 % [facility] Comment: Interpretive Data Percent cell count reference ranges are not reported, since discordance with absolute values may lead to misinterpretation of CBC data. Current Interpretive Data was last revised on 2017. Lymphocyte pct 19.7 % [facility] Comment: Interpretive Data Percent cell count reference ranges are not reported, since discordance with absolute values may lead to misinterpretation of CBC data. Current Interpretive Data was last revised on 2017. Monocyte pct 6.7 % [facility] Comment: Interpretive Data Percent cell count reference ranges are not reported, since discordance with absolute values may lead to misinterpretation of CBC data. Current Interpretive Data was last revised on 2017. Eosinophil pct 0.9 % [facility] Comment: Interpretive Data Percent cell count reference ranges are not reported, since discordance with absolute values may lead to misinterpretation of CBC data. Current Interpretive Data was last revised on 2017. Basophil pct 0.3 % [facility] Comment: Interpretive Data Percent cell count reference ranges are not reported, since discordance with absolute values may lead to misinterpretation of CBC data. Current Interpretive Data was last revised on 2017. Blood 09/09/2024 10:5 4 PM CDT 09/09/2024 11:24 PM CDT Elizabet Dickey MD LAB BLOOD ORDERABLES F inal Result [facility] Department [place] [address] * (ABNORMAL) CBC with auto differential (09/09/2024 10:54 PM CDT) [facility] WBC 14.68(H) 3.80 - 9.90 K/cumm Hgb 9.6(L) 11.9 - 15.5 g/dL [facility] Hct 30.8(L) 35.6 - 45.5 % [facility] Plt 205 150 - 400 K/cumm [facility] MPV 10.1 9.1 - 12.3 fL [facility] RBC 3.52(L) 3.90 - 5.20 M/cumm [facility] MCV 87.5 81.3 - 96.4 fL [facility] MCH 27.3 27.1 - 33.3 pg [facility] MCHC 31.2(L) 32.3 - 35.7 g/dL [facility] RDW CV 18.4(H) 11.1 - 14.9 % [facility] RDW SD 58.0(H) 35.7 - 48.1 fL [facility] NRBC abs 0.00 0.00 - 0.01 K/cumm [facility] Blood 09/09/2024 10:5 4 PM CDT 09/09/2024 11:24 PM CDT us Elizabet Dickey MD LAB BLOOD ORDERABLES F inal Result Performing Organization Address [facility] Co de Phone Number [facility] [place] [address] * Phosphorus (09/09/2024 10:54 PM CDT) [facility] Phosphorus, pl 2.7 2.3 - 4.5 mg/dL Blood 09/09/2024 10:5 4 PM CDT 09/09/2024 11:24 PM CDT Kirk Gaming MD LAB BLOOD ORDERABLES F inal Result Performing Organization Address City/[facility]/ZIP Co de Phone Number [facility] Department [place] [address] * Bilirubin, direct (09/09/2024 10:54 PM CDT) Pathologist [facility] [place] Bilirubin, direct 0.3 0.1 - 0.3 mg/dL Blood 09/09/2024 10:5 4 PM CDT 09/09/2024 11:24 PM CDT us Kirk Gaming MD LAB BLOOD ORDERABLES F inal Result Performing Organization Address [facility] Co de Phone Number [facility] [place] [address] * (ABNORMAL) Comprehensive metabolic panel (09/09/2024 10:54 PM CDT) [facility] Sodium 133(L) 135 - 145 mmol/L Potassium, pl 4.6 3.3 - 4.9 mmol/L [facility] Chloride 96(L) 97 - 110 mmol/L [facility] CO2 28 22 - 32 mmol/L [facility] Anion gap 9 2 - 15 mmol/L [facility] BUN 22 6 - 25 mg/dL [facility] Creatinine 5.07(H) 0.60 - 1.10 mg/dL [facility] Glucose 76 70 - 199 mg/dL [facility] Comment: Interpretive Data Fasting glucose >/= [...] 2022. Calcium 8.1(L) 8.5 - 10.3 mg/dL [facility] Bilirubin, total 0.6 0.1 - 1.2 mg/dL [facility] Protein, pl 7.7 6.5 - 8.5 g/dL [facility] Albumin 1.9(L) 3.5 - 5.0 g/dL [facility] Alk phos 114 40 - 130 Units/L [facility] ALT 22 7 - 45 Units/L [facility] AST 23 10 - 45 Units/L [facility] Blood 09/09/2024 10:5 4 PM CDT 09/09/2024 11:24 PM CDT us Kirk Gaming MD LAB BLOOD ORDERABLES F inal Result Performing Organization Address City/[facility]/ZIP Co de Phone Number [facility] [place] [address] * POCT glucose (09/09/2024 10:38 PM CDT) Glucose, POC 76 70 - 199 mg/dL Blood 09/09/2024 10:3 8 PM CDT 09/09/2024 10:38 PM CDT Kirk Gaming MD LAB POCT ORDERABLES - DEVICE Final Result Performing Organization Address [facility]/ZIP Co de Phone Number [facility] [place] [address] * POCT glucose (09/09/2024 7:51 PM CDT) Glucose, POC 76 70 - 199 mg/dL Blood 09/09/2024 7:51 PM CDT 09/09/2024 7:51 PM CDT Kirk Gaming MD LAB POCT ORDERABLES - DEVICE Final Result Performing Organization Address City/[facility]/ZIP Co de Phone Number [facility] [place] [address] * POCT glucose (09/09/2024 2:55 PM CDT) Glucose, POC 80 70 - 199 mg/dL Blood 09/09/2024 2:55 PM CDT 09/09/2024 2:55 PM CDT Kirk Gaming MD LAB POCT ORDERABLES - DEVICE Final Result Performing Organization Address [facility] de Phone Number [facility] [place] [address] * (ABNORMAL) POCT glucose (09/09/2024 12:03 PM CDT) Glucose, POC 69(L) 70 - 199 mg/dL Blood 09/09/2024 12:0 3 PM CDT 09/09/2024 12:03 PM CDT Kirk Gaming MD LAB POCT ORDERABLES - DEVICE Final Result Performing Organization Address [facility] de Phone Number [facility] [place] [address] * POCT glucose (09/09/2024 8:34 AM CDT) Glucose, POC 84 70 - 199 mg/dL Blood 09/09/2024 8:34 AM CDT 09/09/2024 8:34 AM CDT Kirk Gaming MD LAB POCT ORDERABLES - DEVICE Final Result Performing Organization Address [facility] de Phone Number [facility] [place] [address] * (ABNORMAL) POCT glucose (09/09/2024 5:46 AM CDT) Glucose, POC 68(L) 70 - 199 mg/dL Blood 09/09/2024 5:46 AM CDT 09/09/2024 5:46 AM CDT Kirk Gaming MD LAB POCT ORDERABLES - DEVICE Final Result Performing Organization Address City/[facility] Co de Phone Number [facility] [place] [address] * POCT glucose (09/09/2024 3:26 AM CDT) Glucose, POC 78 70 - 199 mg/dL Blood 09/09/2024 3:26 AM CDT 09/09/2024 3:26 AM CDT us Kirk Gaming MD LAB POCT ORDERABLES - DEVICE Final Result Performing Organization Address [facility] de Phone Number [facility] [place] [address] * POCT glucose (09/09/2024 1:55 AM CDT) Glucose, POC 72 70 - 199 mg/dL Blood 09/09/2024 1:55 AM CDT 09/09/2024 1:55 AM CDT us Kirk Gaming MD LAB POCT ORDERABLES - DEVICE Final Result Performing Organization Address [facility] Co de Phone Number [facility] [place] [address] * POCT glucose (09/09/2024 12:11 AM CDT) Glucose, POC 89 70 - 199 mg/dL Blood 09/09/2024 12:1 1 AM CDT 09/09/2024 12:11 AM CDT Kirk Gaming MD LAB POCT ORDERABLES - DEVICE Final Result Performing Organization Address City/[facility] Co de Phone Number [facility] [place] [address] * (ABNORMAL) POCT glucose (09/08/2024 10:15 PM CDT) Glucose, POC 67(L) 70 - 199 mg/dL Blood 09/08/2024 10:1 5 PM CDT 09/08/2024 10:15 PM CDT Kirk Gaming MD LAB POCT ORDERABLES - DEVICE Final Result Performing Organization Address City/[facility]/[place] [address] * POCT glucose (09/08/2024 8:51 PM CDT) Glucose, POC 83 70 - 199 mg/dL Blood 09/08/2024 8:51 PM CDT 09/08/2024 8:51 PM CDT us Kirk Gaming MD LAB POCT ORDERABLES - DEVICE Final Result Performing Organization Address [facility] [place] [address] * (ABNORMAL) POCT glucose (09/08/2024 2:10 PM CDT) Glucose, POC 221(H) 70 - 199 mg/dL Blood 09/08/2024 2:10 PM CDT 09/08/2024 2:10 PM CDT Kirk Gaming MD LAB POCT ORDERABLES - DEVICE Final Result Performing Organization Address City/[facility] Co [place] [address] * (ABNORMAL) POCT glucose (09/08/2024 1:37 PM CDT) Glucose, POC 65(L) 70 - 199 mg/dL Blood 09/08/2024 1:37 PM CDT 09/08/2024 1:37 PM CDT us Kirk Gaming MD LAB POCT ORDERABLES - DEVICE Final Result Performing Organization Address [facility] de Phone Number [facility] [place] [address] * (ABNORMAL) POCT glucose (09/08/2024 10:49 AM CDT) Glucose, POC 65(L) 70 - 199 mg/dL Blood 09/08/2024 10:4 9 AM CDT 09/08/2024 10:49 AM CDT Kirk Gaming MD LAB POCT ORDERABLES - DEVICE Final Result Performing Organization Address [facility] de Phone Number [facility] [place] [address] * (ABNORMAL) POCT glucose (09/08/2024 7:48 AM CDT) Glucose, POC 64(L) 70 - 199 mg/dL Comment:Glu2: RN/MD Notified Glucose comment 1 Glu2: RN/MD Notified [facility] Blood 09/08/2024 7:48 AM CDT 09/08/2024 7:48 AM CDT us Kirk Gaming MD LAB POCT ORDERABLES - DEVICE Final Result Performing Organization Address [facility] [place] [address] * POCT glucose (09/08/2024 5:03 AM CDT) Glucose, POC 76 70 - 199 mg/dL Blood 09/08/2024 5:03 AM CDT 09/08/2024 5:03 AM CDT us Kirk Gaming MD LAB POCT ORDERABLES - DEVICE Final Result Performing Organization Address [facility] [place] [address] * POCT glucose (09/07/2024 9:07 PM CDT) Glucose, POC 96 70 - 199 mg/dL Blood 09/07/2024 9:07 PM CDT 09/07/2024 9:07 PM CDT us Kirk Gaming MD LAB POCT ORDERABLES - DEVICE Final Result Performing Organization Address [facility] de Phone Number [facility] [place] [address] * POCT glucose (09/07/2024 8:12 PM CDT) Glucose, POC 87 70 - 199 mg/dL Blood 09/07/2024 8:12 PM CDT 09/07/2024 8:12 PM CDT us Kirk Gaming MD LAB POCT ORDERABLES - DEVICE Final Result Performing Organization Address [facility] de Phone Number [facility] [place] [address] * (ABNORMAL) POCT glucose (09/07/2024 7:39 PM CDT) Glucose, POC 65(L) 70 - 199 mg/dL Comment:Glu2: RN/MD Notified Glucose comment 1 Glu2: RN/MD Notified [facility] Blood 09/07/2024 7:39 PM CDT 09/07/2024 7:39 PM CDT us Kirk Gaming MD LAB POCT ORDERABLES - DEVICE Final Result Performing Organization Address [facility] Co de Phone Number [facility] [place] [address] * POCT glucose (09/07/2024 8:22 AM CDT) Glucose, POC 79 70 - 199 mg/dL Blood 09/07/2024 8:22 AM CDT 09/07/2024 8:22 AM CDT us Kirk Gaming MD LAB POCT ORDERABLES - DEVICE Final Result Performing Organization Address [facility] Co de Phone Number [facility] [place] [address] * (ABNORMAL) POCT glucose (09/07/2024 7:51 AM CDT) [facility] Glucose, POC 68(L) 70 - 199 mg/dL Comment:Glu2: RN/MD Notified Glucose comment 1 Glu2: RN/MD Notified [facility] Blood 09/07/2024 7:51 AM CDT 09/07/2024 7:51 AM CDT us Kirk Gaming MD LAB POCT ORDERABLES - DEVICE Final Result Performing Organization Address [facility] Co de Phone Number [facility] [place] [address] * (ABNORMAL) eGFR (09/06/2024 9:48 PM CDT) [...] 9:48 PM CDT 09/06/2024 10:23 PM CDT Elizabet Dickey MD LAB BLOOD ORDERABLES F inal Result [facility] [place] [address] * (ABNORMAL) Basic metabolic panel (09/06/2024 9:48 PM CDT) [facility] Sodium 133(L) 135 - 145 mmol/L Potassium, pl 3.7 3.3 - 4.9 mmol/L [facility] Chloride 97 97 - 110 mmol/L [facility] CO2 29 22 - 32 mmol/L [facility] Anion gap 7 2 - 15 mmol/L [facility] BUN 14 6 - 25 mg/dL [facility] Creatinine 4.24(H) 0.60 - 1.10 mg/dL [facility] Glucose 80 70 - 199 mg/dL [facility] Comment: Interpretive Data Fasting glucose >/= [...] 2022. Calcium 7.9(L) 8.5 - 10.3 mg/dL [facility] Blood 09/06/2024 9:48 PM CDT 09/06/2024 10:23 PM CDT Elizabet Dickey MD LAB BLOOD ORDERABLES F inal Result Performing Organization Address [facility] Co de Phone Number [facility] [place] [address] * POCT glucose (09/06/2024 9:30 PM CDT) Glucose, POC 84 70 - 199 mg/dL Blood 09/06/2024 9:30 PM CDT 09/06/2024 9:30 PM CDT Kirk Gaming MD LAB POCT ORDERABLES - DEVICE Final Result Performing Organization Address [facility] de Phone Number [facility] [place] [address] * POCT glucose (09/06/2024 5:32 PM CDT) Glucose, POC 94 70 - 199 mg/dL Blood 09/06/2024 5:32 PM CDT 09/06/2024 5:32 PM CDT Kirk Gaming MD LAB POCT ORDERABLES - DEVICE Final Result Performing Organization Address City/[facility] Co de Phone Number [facility] [place] [address] * POCT glucose (09/06/2024 11:49 AM CDT) Glucose, POC 106 70 - 199 mg/dL Blood 09/06/2024 11:4 9 AM CDT 09/06/2024 11:49 AM CDT Kirk Gaming MD LAB POCT ORDERABLES - DEVICE Final Result Performing Organization Address [facility] Co de Phone Number [facility] [place] [address] * POCT glucose (09/06/2024 11:42 AM CDT) Glucose, POC 99 70 - 199 mg/dL Blood 09/06/2024 11:4 2 AM CDT 09/06/2024 11:42 AM CDT Kirk Gaming MD LAB POCT ORDERABLES - DEVICE Final Result Performing Organization Address [facility] [place] [address] * POCT glucose (09/06/2024 11:01 AM CDT) Glucose, POC 90 70 - 199 mg/dL Blood 09/06/2024 11:0 1 AM CDT 09/06/2024 11:01 AM CDT Kirk Gaming MD LAB POCT ORDERABLES - DEVICE Final Result Performing Organization Address [facility] Co de Phone Number [facility] [place] [address] * (ABNORMAL) POCT glucose (09/06/2024 10:39 AM CDT) Glucose, POC 64(L) 70 - 199 mg/dL Blood 09/06/2024 10:3 9 AM CDT 09/06/2024 10:39 AM CDT Kirk Gaming MD LAB POCT ORDERABLES - DEVICE Final Result Performing Organization Address City/[facility]/ZIP Co de Phone Number [facility] [place] [address] * (ABNORMAL) POCT glucose (09/06/2024 9:44 AM CDT) Glucose, POC 68(L) 70 - 199 mg/dL Comment:Glu2: RN/MD Notified Glucose comment 1 Glu2: RN/MD Notified [facility] Blood 09/06/2024 9:44 AM CDT 09/06/2024 9:44 AM CDT us Kirk Gaming MD LAB POCT ORDERABLES - DEVICE Final Result Performing Organization Address City/[facility]/ZIP Co de Phone Number [facility] Department [place] [address] * (ABNORMAL) eGFR (2024 9:30 PM CDT) [...] LAB BLOOD ORDERABLES F inal Result [facility] [place] [address] * (ABNORMAL) Basic metabolic panel (2024 9:30 PM CDT) Sodium 134(L) 135 - 145 mmol/L Potassium, pl 4.0 3.3 - 4.9 mmol/L [facility] Chloride 97 97 - 110 mmol/L [facility] CO2 30 22 - 32 mmol/L [facility] Anion gap 7 2 - 15 mmol/L [facility] BUN 8 6 - 25 mg/dL [facility] Creatinine 3.03(H) 0.60 - 1.10 mg/dL [facility] Glucose 74 70 - 199 mg/dL [facility] Comment: Interpretive Data Fasting glucose >/= [...] 2022. Calcium 8.0(L) 8.5 - 10.3 mg/dL [facility] Blood 2024 9:30 PM CDT 2024 11:12 PM CDT Elizabet Dickey MD LAB BLOOD ORDERABLES F inal Result [facility] Department [place] [address] * POCT glucose (2024 9:16 PM CDT) Glucose, POC 101 70 - 199 mg/dL Blood 2024 9:16 PM CDT 2024 9:16 PM CDT us Kirk Gaming MD LAB POCT ORDERABLES - DEVICE Final Result Performing Organization Address [facility] Co de Phone Number [facility] [place] [address] * Hepatitis B Surface Antigen Blood (2024 3:29 PM CDT) Pathologist [facility] [place] HepBsAg Nonreactive Nonreactive Blood 2024 3:29 PM CDT 2024 3:42 PM CDT us Maryellen Alejandro MD LAB MICROBIOLOGY - GENER AL ORDERABLES Final Result Performing Organization Address [facility] Co de Phone Number [facility] [place] [address] * POCT glucose (2024 11:11 AM CDT) [facility] Glucose, POC 76 70 - 199 mg/dL Blood 2024 11:1 1 AM CDT 2024 11:11 AM CDT us Kirk Gaming MD LAB POCT ORDERABLES - DEVICE Final Result Performing Organization Address [facility] Co de Phone Number [facility] [place] [address] * (ABNORMAL) eGFR (09/04/2024 9:04 PM CDT) [facility] eGFR 12(L) >=60 mL/min/1. 73 m2 [...] 9:04 PM CDT 09/04/2024 9:56 PM CDT Elizabet Dickey MD LAB BLOOD ORDERABLES F inal Result [facility] Department [place] [address] * (ABNORMAL) Basic metabolic panel (09/04/2024 9:04 PM CDT) [facility] Sodium 137 135 - 145 mmol/L Potassium, pl 4.2 3.3 - 4.9 mmol/L [facility] Chloride 97 97 - 110 mmol/L [facility] CO2 33(H) 22 - 32 mmol/L [facility] Anion gap 7 2 - 15 mmol/L [facility] BUN 16 6 - 25 mg/dL [facility] Creatinine 4.69(H) 0.60 - 1.10 mg/dL [facility] Glucose 100 70 - 199 mg/dL [facility] Comment: Interpretive Data Fasting glucose >/= [...] 2022. Calcium 8.0(L) 8.5 - 10.3 mg/dL [facility] Blood 09/04/2024 9:04 PM CDT 09/04/2024 9:56 PM CDT Elizabet Dickey MD LAB BLOOD ORDERABLES F inal Result Performing Organization Address [facility] Co de Phone Number [facility] [place] [address] * POCT glucose (09/04/2024 7:58 PM CDT) Glucose, POC 106 70 - 199 mg/dL Blood 09/04/2024 7:58 PM CDT 09/04/2024 7:58 PM CDT Kirk Gaming MD LAB POCT ORDERABLES - DEVICE Final Result Performing Organization Address [facility] de Phone Number [facility] [place] [address] * POCT glucose (09/04/2024 7:57 AM CDT) Glucose, POC 86 70 - 199 mg/dL Blood 09/04/2024 7:57 AM CDT 09/04/2024 7:57 AM CDT Kirk Gaming MD LAB POCT ORDERABLES - DEVICE Final Result Performing Organization Address [facility] de Phone Number [facility] [place] [address] * (ABNORMAL) Urinalysis reflex to microscopic and culture Urine (09/04/2024 6:05 AM CDT) Color, ur Yellow Yellow Clarity, ur Turbid(A) Clear [facility] Specific gravity, ur 1.011 1.003 - 1.030 [facility] pH, urine 8.5 [facility] Comment: Interpretive Data U rine pH is affected by diet, medications, systemic acid-base disturbances, and renal tubular function. pH may affect urinary stone formation. For example, urine pH below 6.0 may help reduce the tendency for calcium phosphate stones and pH greater than 6.0 may reduce the tendency for uric acid stone formation. Source: [facility] Current Interpretive Data was last revised on 2017 Protein, ur ql 3+(A) Negative [facility] Glucose, ur ql Negative Negative [facility] Ketones, ur Negative Negative [facility] Bilirubin, ur Negative Negative [facility] Blood, ur 3+(A) Negative [facility] Urobilinogen, ur <2.0 <2.0 mg/dL [facility] Nitrite, ur Negative Negative [facility] Leukocyte esterase, ur 3+(A) Negative [facility] UA reflex comment Reflex to microscopic UA will be performed. [facility] Urine 09/04/2024 6:05 AM CDT 09/04/2024 6:44 AM CDT Elizabet Dickey MD LAB MICROBIOLOGY - GEN ERAL ORDERABLES Final Result [facility] Department [place] [address] * (ABNORMAL) Urinalysis, microscopic only (09/04/2024 6:05 AM CDT) WBC, ur >50(A) 0 - 5 /HPF RBC, ur >50(A) 0 - 2 /HPF [facility] Epithelial cells, squamous, ur 11-20(A) 0 - 5 /HPF [facility] Comment:Suggestive of contam ination. Consider recollection by clean catch. Bacteria, ur 4+(A) [facility] Culture Reflex Comment Reflex to urine culture will be performed. [facility] Urine 09/04/2024 6:05 AM CDT 09/04/2024 6:44 AM CDT Elizabet Dickey MD LAB URINE ORDERABLES F inal Result Performing Organization Address [facility] Co de Phone Number [facility] Department [place] [address] * (ABNORMAL) Urine culture Urine (09/04/2024 6:05 AM CDT) Report Final Report: Greater than or equal to 100,000 colonies/mL of Escherichia coli Plus growth of clinically insignificant bacterial melissa. (.) Organism ESCHERICHIA COLI [facility] Organism PLUS GROWTH OF CLINICALLY INSIGNIFICANT MELISSA. [facility] Urine 09/04/2024 6:05 AM CDT 09/04/2024 7:32 AM CDT Narrative [facility] - 09/06/2024 10:45 AM CDT Urine culture reflexed based upon urinalysis results. Testing performed by [facility] ([phone]) Organism Antibiotic Method Susceptibility Escherichia coli Ampicillin [...] ERAL ORDERABLES Final Result Performing Organization Address [facility] Co de Phone Number [facility] [place] [address] * POCT glucose (09/03/2024 11:17 PM CDT) Glucose, POC 100 70 - 199 mg/dL Blood 09/03/2024 11:1 7 PM CDT 09/03/2024 11:17 PM CDT us Kirk Gaming MD LAB POCT ORDERABLES - DEVICE Final Result Performing Organization Address [facility] Co de Phone Number [facility] Department [place] [address] * (ABNORMAL) eGFR (09/03/2024 10:19 PM CDT) [...] ORDERABLES F inal Result Performing Organization Address City/[facility]/ZIP Co de Phone Number [facility] [place] [address] * (ABNORMAL) Basic metabolic panel (09/03/2024 10:19 PM CDT) Sodium 135 135 - 145 mmol/L Potassium, pl 3.9 3.3 - 4.9 mmol/L [facility] Chloride 95(L) 97 - 110 mmol/L [facility] CO2 32 22 - 32 mmol/L [facility] Anion gap 8 2 - 15 mmol/L [facility] BUN 11 6 - 25 mg/dL [facility] Creatinine 3.79(H) 0.60 - 1.10 mg/dL [facility] Glucose 87 70 - 199 mg/dL [facility] Comment: Interpretive Data Fasting glucose >/= [...] 2022. Calcium 7.6(L) 8.5 - 10.3 mg/dL [facility] Blood 09/03/2024 10:1 9 PM CDT 09/03/2024 10:54 PM CDT Elizabet Dickey MD LAB BLOOD ORDERABLES F inal Result Performing Organization Address City/[facility]/ZIP Co de Phone Number [facility] [place] [address] * POCT glucose (09/03/2024 3:07 PM CDT) Glucose, POC 105 70 - 199 mg/dL Blood 09/03/2024 3:07 PM CDT 09/03/2024 3:07 PM CDT Elizabet Dickey MD LAB POCT ORDERABLES - DEVICE Final Result Performing Organization Address City/[facility]/ZIP Co de Phone Number [facility] [place] [address] * POCT glucose (09/03/2024 11:28 AM CDT) Glucose, POC 77 70 - 199 mg/dL Blood 09/03/2024 11:2 8 AM CDT 09/03/2024 11:28 AM CDT us Elizabet Dickey MD LAB POCT ORDERABLES - DEVICE Final Result Performing Organization Address [facility] de Phone Number [facility] [place] [address] * POCT glucose (09/03/2024 8:02 AM CDT) Glucose, POC 122 70 - 199 mg/dL Blood 09/03/2024 8:02 AM CDT 09/03/2024 8:02 AM CDT us Elizabet Dickey MD LAB POCT ORDERABLES - DEVICE Final Result Performing Organization Address [facility] de Phone Number [facility] [place] [address] * POCT glucose (09/03/2024 1:24 AM CDT) Glucose, POC 154 70 - 199 mg/dL Blood 09/03/2024 1:24 AM CDT 09/03/2024 1:24 AM CDT us Elizabet Dickey MD LAB POCT ORDERABLES - DEVICE Final Result Performing Organization Address [facility] [place] [address] * (ABNORMAL) POCT glucose (09/03/2024 12:45 AM CDT) Glucose, POC 64(L) 70 - 199 mg/dL Comment:Glu2: RN/MD Notified Glucose comment 1 Glu2: RN/MD Notified [facility] Blood 09/03/2024 12:4 5 AM CDT 09/03/2024 12:45 AM CDT us Elizabet Dickey MD LAB POCT ORDERABLES - DEVICE Final Result Performing Organization Address City/[facility] Co de Phone Number [facility] Department [place] [address] * (ABNORMAL) eGFR (09/02/2024 9:27 PM CDT) [...] BLOOD ORDERABLES Final Result Performing Organization Address City/[facility]/ZIP Co de Phone Number [facility] Department [place] [address] * (ABNORMAL) Differential, auto (09/02/2024 9:27 PM CDT) Neutrophil abs 6.55(H) 1.50 - 6.50 K/cumm Imm gran abs 0.08 0.00 - 0.10 K/cumm [facility] Lymphocyte abs 2.30 0.80 - 3.30 K/cumm [facility] Monocyte abs 0.88(H) 0.20 - 0.80 K/cumm [facility] Eosinophil abs 0.14 0.00 - 0.50 K/cumm [facility] Basophil abs 0.05 0.00 - 0.10 K/cumm [facility] Neutrophil pct 65.5 % [facility] Comment: Interpretive Data Percent cell count reference ranges are not reported, since discordance with absolute values may lead to misinterpretation of CBC data. Current Interpretive Data was last revised on 2017. Imm gran pct 0.8 % [facility] Comment: Interpretive Data Percent cell count reference ranges are not reported, since discordance with absolute values may lead to misinterpretation of CBC data. Current Interpretive Data was last revised on 2017. Lymphocyte pct 23.0 % [facility] Comment: Interpretive Data Percent cell count reference ranges are not reported, since discordance with absolute values may lead to misinterpretation of CBC data. Current Interpretive Data was last revised on 2017. Monocyte pct 8.8 % [facility] Comment: Interpretive Data Percent cell count reference ranges are not reported, since discordance with absolute values may lead to misinterpretation of CBC data. Current Interpretive Data was last revised on 2017. Eosinophil pct 1.4 % [facility] Comment: Interpretive Data Percent cell count reference ranges are not reported, since discordance with absolute values may lead to misinterpretation of CBC data. Current Interpretive Data was last revised on 2017. Basophil pct 0.5 % [facility] Comment: Interpretive Data Percent cell count reference ranges are not reported, since discordance with absolute values may lead to misinterpretation of CBC data. Current Interpretive Data was last revised on 2017. Blood 09/02/2024 9:27 PM CDT 09/02/2024 9:30 PM CDT Elizabet Dickey MD LAB BLOOD ORDERABLES F inal Result [facility] Department [place] [address] * (ABNORMAL) CBC with auto differential (09/02/2024 9:27 PM CDT) Pathologist [facility] [place] WBC 10.00(H) 3.80 - 9.90 K/cumm Hgb 7.7(L) 11.9 - 15.5 g/dL [facility] Hct 24.8(L) 35.6 - 45.5 % [facility] Plt 264 150 - 400 K/cumm [facility] MPV 10.8 9.1 - 12.3 fL [facility] RBC 2.76(L) 3.90 - 5.20 M/cumm [facility] MCV 89.9 81.3 - 96.4 fL [facility] MCH 27.9 27.1 - 33.3 pg [facility] MCHC 31.0(L) 32.3 - 35.7 g/dL [facility] RDW CV 18.5(H) 11.1 - 14.9 % [facility] RDW SD 59.6(H) 35.7 - 48.1 fL [facility] NRBC abs 0.02(H) 0.00 - 0.01 K/cumm [facility] Blood 09/02/2024 9:27 PM CDT 09/02/2024 9:30 PM CDT Elizabet Dickey MD LAB BLOOD ORDERABLES F inal Result [facility] Department [place] [address] * (ABNORMAL) Comprehensive metabolic panel (09/02/2024 9:27 PM CDT) Pathologist [facility] [place] Sodium 133(L) 135 - 145 mmol/L Potassium, pl 4.8 3.3 - 4.9 mmol/L [facility] Chloride 96(L) 97 - 110 mmol/L [facility] CO2 29 22 - 32 mmol/L [facility] Anion gap 8 2 - 15 mmol/L [facility] BUN 19 6 - 25 mg/dL [facility] Creatinine 5.50(H) 0.60 - 1.10 mg/dL [facility] Glucose 75 70 - 199 mg/dL [facility] Comment: Interpretive Data Fasting glucose >/= [...] 2022. Calcium 8.3(L) 8.5 - 10.3 mg/dL [facility] Bilirubin, total 0.6 0.1 - 1.2 mg/dL [facility] Protein, pl 7.7 6.5 - 8.5 g/dL [facility] Albumin 1.9(L) 3.5 - 5.0 g/dL [facility] Alk phos 122 40 - 130 Units/L [facility] ALT 44 7 - 45 Units/L [facility] AST 46(H) 10 - 45 Units/L [facility] Blood 09/02/2024 9:27 PM CDT 09/02/2024 9:31 PM CDT us Valerie Cooper MD PhD LAB BLOOD ORDERABLES Final Result Performing Organization Address City/[facility]/ZIP Co de Phone Number [facility] Department [place] [address] * POCT glucose (09/02/2024 8:55 AM CDT) [facility] Signature Glucose, POC 70 70 - 199 mg/dL Blood 09/02/2024 8:55 AM CDT 09/02/2024 8:55 AM CDT Elizabet Dickey MD LAB POCT ORDERABLES - DEVICE Final Result Performing Organization Address [facility]/ZIP Co de Phone Number [facility] Department [place] [address] * POCT glucose (09/02/2024 12:27 AM CDT) Pathologist [facility] [place] Glucose, POC 100 70 - 199 mg/dL Blood 09/02/2024 12:2 7 AM CDT 09/02/2024 12:27 AM CDT us Elizabet Dickey MD LAB POCT ORDERABLES - DEVICE Final Result Performing Organization Address City/[facility] Co de Phone Number [facility] [place] [address] * (ABNORMAL) eGFR (09/01/2024 8:47 PM CDT) [facility] eGFR 14(L) >=60 mL/min/1. 73 m2 [...] MD PhD LAB BLOOD ORDERABLES Final Result [facility] [place] [address] * (ABNORMAL) Comprehensive metabolic panel (09/01/2024 8:47 PM CDT) Sodium 131(L) 135 - 145 mmol/L Potassium, pl 4.2 3.3 - 4.9 mmol/L [facility] Chloride 94(L) 97 - 110 mmol/L [facility] CO2 33(H) 22 - 32 mmol/L [facility] Anion gap 4 2 - 15 mmol/L [facility] BUN 12 6 - 25 mg/dL [facility] Creatinine 4.18(H) 0.60 - 1.10 mg/dL [facility] Glucose 77 70 - 199 mg/dL [facility] Comment: Interpretive Data Fasting glucose >/= [...] 2022. Calcium 8.0(L) 8.5 - 10.3 mg/dL [facility] Bilirubin, total 0.5 0.1 - 1.2 mg/dL [facility] Protein, pl 7.7 6.5 - 8.5 g/dL [facility] Albumin 1.8(L) 3.5 - 5.0 g/dL [facility] Alk phos 132(H) 40 - 130 Units/L [facility] ALT 45 7 - 45 Units/L [facility] AST 45 10 - 45 Units/L [facility] Blood 09/01/2024 8:47 PM CDT 09/01/2024 9:18 PM CDT us Valerie Cooper MD PhD LAB BLOOD [place] [address] * POCT glucose (09/01/2024 4:32 PM CDT) Glucose, POC 70 70 - 199 mg/dL Blood 09/01/2024 4:32 PM CDT 09/01/2024 4:32 PM CDT us Elizabet Dickey MD LAB POCT ORDERABLES - [place] [address] * POCT glucose (09/01/2024 12:53 PM CDT) Glucose, POC 74 70 - 199 mg/dL Blood 09/01/2024 12:5 3 PM CDT 09/01/2024 12:53 PM CDT us Elizabet Dickey MD LAB POCT ORDERABLES - DEVICE Final Result Performing Organization Address City/[facility]/[place] [address] * POCT glucose (09/01/2024 8:18 AM CDT) Glucose, POC 79 70 - 199 mg/dL Blood 09/01/2024 8:18 AM CDT 09/01/2024 8:18 AM CDT us Elizabet Dickey MD LAB POCT ORDERABLES - [place] [address] * POCT glucose (09/01/2024 12:16 AM CDT) [facility] Glucose, POC 137 70 - 199 mg/dL Blood 09/01/2024 12:1 6 AM CDT 09/01/2024 12:16 AM CDT Elizabet Dickey MD LAB POCT ORDERABLES - DEVICE Final Result Performing Organization Address City/[facility]/ZIP Co de Phone Number [facility] Department [place] [address] * (ABNORMAL) eGFR (08/31/2024 8:43 PM CDT) [facility] eGFR 22(L) >=60 mL/min/1. 73 m2 Comment: [...] MD PhD LAB BLOOD ORDERABLES Final [facility] [place] [address] * (ABNORMAL) Differential, auto (08/31/2024 8:43 PM CDT) [facility] Neutrophil abs 7.94(H) 1.50 - 6.50 K/cumm Imm gran abs 0.06 0.00 - 0.10 K/cumm [facility] Lymphocyte abs 1.80 0.80 - 3.30 K/cumm [facility] Monocyte abs 1.02(H) 0.20 - 0.80 K/cumm [facility] Eosinophil abs 0.23 0.00 - 0.50 K/cumm [facility] Basophil abs 0.05 0.00 - 0.10 K/cumm [facility] Neutrophil pct 71.5 % [facility] Comment: Interpretive Data Percent cell count reference ranges are not reported, since discordance with absolute values may lead to misinterpretation of CBC data. Current Interpretive Data was last revised on 2017. Imm gran pct 0.5 % [facility] Comment: Interpretive Data Percent cell count reference ranges are not reported, since discordance with absolute values may lead to misinterpretation of CBC data. Current Interpretive Data was last revised on 2017. Lymphocyte pct 16.2 % [facility] Comment: Interpretive Data Percent cell count reference ranges are not reported, since discordance with absolute values may lead to misinterpretation of CBC data. Current Interpretive Data was last revised on 2017. Monocyte pct 9.2 % [facility] Comment: Interpretive Data Percent cell count reference ranges are not reported, since discordance with absolute values may lead to misinterpretation of CBC data. Current Interpretive Data was last revised on 2017. Eosinophil pct 2.1 % [facility] Comment: Interpretive Data Percent cell count reference ranges are not reported, since discordance with absolute values may lead to misinterpretation of CBC data. Current Interpretive Data was last revised on 2017. Basophil pct 0.5 % [facility] Comment: Interpretive Data Percent cell count reference ranges are not reported, since discordance with absolute values may lead to misinterpretation of CBC data. Current Interpretive Data was last revised on 2017. Blood 08/31/2024 8:43 PM CDT 08/31/2024 9:20 PM CDT Elizabet Dickey MD LAB BLOOD ORDERABLES F inal Result [facility] [place] [address] * (ABNORMAL) CBC with auto differential (08/31/2024 8:43 PM CDT) WBC 11.10(H) 3.80 - 9.90 K/cumm Hgb 8.5(L) 11.9 - 15.5 g/dL [facility] Hct 27.1(L) 35.6 - 45.5 % [facility] Plt 278 150 - 400 K/cumm [facility] MPV 9.9 9.1 - 12.3 fL [facility] RBC 3.06(L) 3.90 - 5.20 M/cumm [facility] MCV 88.6 81.3 - 96.4 fL [facility] MCH 27.8 27.1 - 33.3 pg [facility] MCHC 31.4(L) 32.3 - 35.7 g/dL [facility] RDW CV 18.3(H) 11.1 - 14.9 % [facility] RDW SD 57.3(H) 35.7 - 48.1 fL [facility] NRBC abs 0.00 0.00 - 0.01 K/cumm [facility] Blood 08/31/2024 8:43 PM CDT 08/31/2024 9:20 PM CDT Elizabte Dickey MD LAB BLOOD ORDERABLES F inal Result [facility] [place] [address] * Type and screen (08/31/2024 8:43 PM CDT) ABO Rh A Positive Marybeth, indirect Negative [facility] Blood 08/31/2024 8:43 PM CDT 08/31/2024 9:19 PM CDT Narrative [facility] - 08/31/2024 10:13 PM CDT Has the patient had Daratumumab or Isatuximab in the past 6 months?->Unknown Elizabet Dickey MD LAB BLOOD BANK TEST OR DERABLES Final Result [facility] Department [place] [address] * (ABNORMAL) Comprehensive metabolic panel (08/31/2024 8:43 PM CDT) Sodium 131(L) 135 - 145 mmol/L Potassium, pl 3.8 3.3 - 4.9 mmol/L [facility] Chloride 94(L) 97 - 110 mmol/L [facility] CO2 32 22 - 32 mmol/L [facility] Anion gap 5 2 - 15 mmol/L [facility] BUN 7 6 - 25 mg/dL [facility] Creatinine 2.92(H) 0.60 - 1.10 mg/dL [facility] Glucose 73 70 - 199 mg/dL [facility] Comment: Interpretive Data Fasting glucose >/= [...] 2022. Calcium 8.2(L) 8.5 - 10.3 mg/dL [facility] Bilirubin, total 0.6 0.1 - 1.2 mg/dL [facility] Protein, pl 8.2 6.5 - 8.5 g/dL [facility] Albumin 2.0(L) 3.5 - 5.0 g/dL [facility] Alk phos 126 40 - 130 Units/L [facility] ALT 68(H) 7 - 45 Units/L [facility] AST 72(H) 10 - 45 Units/L [facility] Blood 08/31/2024 8:43 PM CDT 08/31/2024 9:19 PM CDT Valerie Cooper MD PhD LAB BLOOD ORDERABLES Final Result Performing Organization Address City/[facility]/ZIP Co de Phone Number [facility] [place] [address] * POCT glucose (08/31/2024 8:14 PM CDT) Glucose, POC 74 70 - 199 mg/dL Blood 08/31/2024 8:14 PM CDT 08/31/2024 8:14 PM CDT Elizabet Dickey MD LAB POCT ORDERABLES - DEVICE Final Result Performing Organization Address City/[facility] Co de Phone Number [facility] [place] [address] * POCT glucose (08/31/2024 12:04 PM CDT) Glucose, POC 80 70 - 199 mg/dL Blood 08/31/2024 12:0 4 PM CDT 08/31/2024 12:04 PM CDT Elizabet Dickey MD LAB POCT ORDERABLES - DEVICE Final Result Performing Organization Address City/[facility] Co de Phone Number [facility] [place] [address] * POCT glucose (08/31/2024 9:29 AM CDT) Glucose, POC 175 70 - 199 mg/dL Comment:Glu2: RN/ Notified Glucose comment 1 Glu2: RN/ Notified [facility] Blood 08/31/2024 9:29 AM CDT 08/31/2024 9:29 AM CDT us Elizabet Dickey MD LAB POCT ORDERABLES - DEVICE Final Result Performing Organization Address [facility] de Phone Number [facility] [place] [address] * POCT glucose (08/31/2024 8:48 AM CDT) Glucose, POC 74 70 - 199 mg/dL Comment:Glu2: RN/MD Notified Glucose comment 1 Glu2: RN/MD Notified [facility] Blood 08/31/2024 8:48 AM CDT 08/31/2024 8:48 AM CDT us Elizabet Dickey MD LAB POCT ORDERABLES - DEVICE Final Result Performing Organization Address [facility] de Phone Number [facility] [place] [address] * (ABNORMAL) POCT glucose (08/31/2024 8:22 AM CDT) Glucose, POC 66(L) 70 - 199 mg/dL Blood 08/31/2024 8:22 AM CDT 08/31/2024 8:22 AM CDT us Elizabet Dickey MD LAB POCT ORDERABLES - DEVICE Final Result Performing Organization Address [facility] de Phone Number [facility] [place] [address] * (ABNORMAL) POCT glucose (08/31/2024 12:41 AM CDT) Glucose, POC 265(H) 70 - 199 mg/dL Blood 08/31/2024 12:4 1 AM CDT 08/31/2024 12:41 AM CDT Elizabet Dickey MD LAB POCT ORDERABLES - DEVICE Final Result Performing Organization Address City/State/[facility] Co de Phone Number [facility] [place] [address] * (ABNORMAL) POCT glucose (08/31/2024 12:05 AM CDT) Glucose, POC 68(L) 70 - 199 mg/dL Blood 08/31/2024 12:0 5 AM CDT 08/31/2024 12:05 AM CDT Elizabet Dickey MD LAB POCT ORDERABLES - DEVICE Final Result Performing Organization Address [facility] de Phone Number ARAMIS [facility] [place] [address] * (ABNORMAL) eGFR (08/30/2024 9:37 PM CDT) [...] MD PhD LAB BLOOD ORDERABLES Final Result [facility] Department [place] [address] * (ABNORMAL) Comprehensive metabolic panel (08/30/2024 9:37 PM CDT) Sodium 134(L) 135 - 145 mmol/L Potassium, pl 4.2 3.3 - 4.9 mmol/L [facility] Chloride 95(L) 97 - 110 mmol/L [facility] CO2 30 22 - 32 mmol/L [facility] Anion gap 9 2 - 15 mmol/L [facility] BUN 14 6 - 25 mg/dL [facility] Creatinine 4.98(H) 0.60 - 1.10 mg/dL [facility] Glucose 61(L) 70 - 199 mg/dL [facility] Comment: Interpretive Data Fasting glucose >/= [...] 2022. Calcium 7.8(L) 8.5 - 10.3 mg/dL [facility] Bilirubin, total 0.5 0.1 - 1.2 mg/dL [facility] Protein, pl 7.8 6.5 - 8.5 g/dL [facility] Albumin 2.0(L) 3.5 - 5.0 g/dL [facility] Alk phos 121 40 - 130 Units/L [facility] ALT 95(H) 7 - 45 Units/L [facility] AST 128(H) 10 - 45 Units/L [facility] Blood 08/30/2024 9:37 PM CDT 08/30/2024 10:24 PM CDT us Valerie Cooper MD PhD LAB BLOOD ORDERABLES Final Result Performing Organization Address [facility] Co de Phone Number [facility] [place] [address] * POCT glucose (08/30/2024 5:38 PM CDT) Glucose, POC 82 70 - 199 mg/dL Blood 08/30/2024 5:38 PM CDT 08/30/2024 5:38 PM CDT Elizabet Dickey MD LAB POCT ORDERABLES - DEVICE Final Result Performing Organization Address [facility] de Phone Number [facility] [place] [address] * (ABNORMAL) POCT glucose (08/30/2024 2:23 PM CDT) Glucose, POC 68(L) 70 - 199 mg/dL Blood 08/30/2024 2:23 PM CDT 08/30/2024 2:23 PM CDT Elizabet Dickey MD LAB POCT ORDERABLES - DEVICE Final Result Performing Organization Address [facility] [place] [address] * POCT glucose (08/30/2024 7:53 AM CDT) Glucose, POC 156 70 - 199 mg/dL Comment:Glu2: RN/MD Notified Glucose comment 1 Glu2: RN/MD Notified [facility] Blood 08/30/2024 7:53 AM CDT 08/30/2024 7:53 AM CDT us Elizabet Dickey MD LAB POCT ORDERABLES - DEVICE Final Result Performing Organization Address City/[facility] Co de Phone Number [facility] [place] [address] * (ABNORMAL) POCT glucose (08/30/2024 7:37 AM CDT) Glucose, POC 69(L) 70 - 199 mg/dL Blood 08/30/2024 7:37 AM CDT 08/30/2024 7:37 AM CDT us Elizabet Dickey MD LAB POCT ORDERABLES - DEVICE Final Result Performing Organization Address [facility] Co de Phone Number [facility] [place] [address] * POCT glucose (08/30/2024 6:37 AM CDT) Glucose, POC 87 70 - 199 mg/dL Blood 08/30/2024 6:37 AM CDT 08/30/2024 6:37 AM CDT us Elizabet Dickey MD LAB POCT ORDERABLES - DEVICE Final Result Performing Organization Address [facility] Co de Phone Number [facility] [place] [address] * (ABNORMAL) POCT glucose (08/30/2024 5:15 AM CDT) Glucose, POC 57(L) 70 - 199 mg/dL Blood 08/30/2024 5:15 AM CDT 08/30/2024 5:15 AM CDT us Elizabet Dickey MD LAB POCT ORDERABLES - DEVICE Final Result Performing Organization Address City/[facility] Co de Phone Number [facility] [place] [address] * POCT glucose (08/29/2024 11:46 PM CDT) Pathologist [facility] [place] Glucose, POC 94 70 - 199 mg/dL Blood 08/29/2024 11:4 6 PM CDT 08/29/2024 11:46 PM CDT us Elizabet Dickey MD LAB POCT ORDERABLES - DEVICE Final Result Performing Organization Address City/[facility] Co de Phone Number [facility] [place] [address] * (ABNORMAL) eGFR (08/29/2024 9:27 PM CDT) [facility] eGFR 17(L) >=60 mL/min/1. 73 m2 [...] MD PhD LAB BLOOD ORDERABLES Final Result [facility] [place] [address] * Critical Result Callback Chemistry (08/29/2024 9:27 PM CDT) Date Notified [id number] Time Notified [id number] [facility] TestName Glucose ARAMIS [facility] Called/Read Back KAELYN Torres [facility] Credentials RN ARAMIS [facility] Called By [facility] Blood 08/29/2024 9:27 PM CDT 08/29/2024 10:01 PM CDT us Valerie Cooper MD PhD LAB BLOOD ORDERABLES Final Result [facility] Department [place] [address] * (ABNORMAL) Comprehensive metabolic panel (08/29/2024 9:27 PM CDT) [facility] Sodium 136 135 - 145 mmol/L Potassium, pl 3.9 3.3 - 4.9 mmol/L [facility] Chloride 98 97 - 110 mmol/L [facility] CO2 32 22 - 32 mmol/L [facility] Anion gap 6 2 - 15 mmol/L [facility] BUN 10 6 - 25 mg/dL [facility] Creatinine 3.61(H) 0.60 - 1.10 mg/dL [facility] Glucose 52(C) 70 - 199 mg/dL [facility] Comment: Glycolysis suspected; suggest sending a [...] 2022. Calcium 8.0(L) 8.5 - 10.3 mg/dL [facility] Bilirubin, total 0.4 0.1 - 1.2 mg/dL [facility] Protein, pl 7.9 6.5 - 8.5 g/dL [facility] Albumin 1.7(L) 3.5 - 5.0 g/dL [facility] Alk phos 116 40 - 130 Units/L [facility] ALT 104(H) 7 - 45 Units/L [facility] AST 174(H) 10 - 45 Units/L [facility] Blood 08/29/2024 9:27 PM CDT 08/29/2024 10:01 PM CDT us Valerie Cooper MD PhD LAB BLOOD ORDERABLES Final Result Performing Organization Address [facility] Co de Phone Number [facility] Department [place] [address] * POCT glucose (08/29/2024 4:50 PM CDT) Glucose, POC 82 70 - 199 mg/dL Blood 08/29/2024 4:50 PM CDT 08/29/2024 4:50 PM CDT Elizabet Dickey MD LAB POCT ORDERABLES - DEVICE Final Result Performing Organization Address [facility] Co de Phone Number [facility] [place] [address] * POCT glucose (08/29/2024 2:13 PM CDT) Glucose, POC 123 70 - 199 mg/dL Blood 08/29/2024 2:13 PM CDT 08/29/2024 2:13 PM CDT Elizabet Dickey MD LAB POCT ORDERABLES - DEVICE Final Result Performing Organization Address [facility] Co de Phone Number [facility] [place] [address] * (ABNORMAL) POCT glucose (08/29/2024 12:57 PM CDT) Glucose, POC 67(L) 70 - 199 mg/dL Blood 08/29/2024 12:5 7 PM CDT 08/29/2024 12:57 PM CDT us Elizabet Dickey MD LAB POCT ORDERABLES - DEVICE Final Result Performing Organization Address City/[facility] [place] [address] * POCT glucose (08/29/2024 8:53 AM CDT) Glucose, POC 87 70 - 199 mg/dL Blood 08/29/2024 8:53 AM CDT 08/29/2024 8:53 AM CDT us Elizabet Dickey MD LAB POCT ORDERABLES - DEVICE Final Result Performing Organization Address City/[facility] [place] [address] * POCT glucose (08/29/2024 8:32 AM CDT) Glucose, POC 70 70 - 199 mg/dL Blood 08/29/2024 8:32 AM CDT 08/29/2024 8:32 AM CDT us Elizabet Dickey MD LAB POCT ORDERABLES - DEVICE Final Result Performing Organization Address City/[facility]/ZIP Co de Phone Number [facility] [place] [address] * (ABNORMAL) POCT glucose (08/29/2024 8:00 AM CDT) Glucose, POC 55(L) 70 - 199 mg/dL Blood 08/29/2024 8:00 AM CDT 08/29/2024 8:00 AM CDT us Elizabet Dickey MD LAB POCT ORDERABLES - DEVICE Final Result Performing Organization Address City/[facility] Co de Phone Number [facility] Department [place] [address] * (ABNORMAL) eGFR (08/28/2024 8:51 PM CDT) Pathologist [facility] [place] eGFR 10(L) >=60 mL/min/1. 73 m2 Comment: [...] BLOOD ORDERABLES Final Result Performing Organization Address City/[facility]/ZIP Co de Phone Number [facility] [place] [address] * (ABNORMAL) Differential, auto (08/28/2024 8:51 PM CDT) Neutrophil abs 6.41 1.50 - 6.50 K/cumm Imm gran abs 0.07 0.00 - 0.10 K/cumm [facility] Lymphocyte abs 1.50 0.80 - 3.30 K/cumm [facility] Monocyte abs 0.93(H) 0.20 - 0.80 K/cumm [facility] Eosinophil abs 0.05 0.00 - 0.50 K/cumm [facility] Basophil abs 0.06 0.00 - 0.10 K/cumm [facility] Neutrophil pct 71.0 % [facility] Comment: Interpretive Data Percent cell count reference ranges are not reported, since discordance with absolute values may lead to misinterpretation of CBC data. Current Interpretive Data was last revised on 2017. Imm gran pct 0.8 % [facility] Comment: Interpretive Data Percent cell count reference ranges are not reported, since discordance with absolute values may lead to misinterpretation of CBC data. Current Interpretive Data was last revised on 2017. Lymphocyte pct 16.6 % [facility] Comment: Interpretive Data Percent cell count reference ranges are not reported, since discordance with absolute values may lead to misinterpretation of CBC data. Current Interpretive Data was last revised on 2017. Monocyte pct 10.3 % [facility] Comment: Interpretive Data Percent cell count reference ranges are not reported, since discordance with absolute values may lead to misinterpretation of CBC data. Current Interpretive Data was last revised on 2017. Eosinophil pct 0.6 % [facility] Comment: Interpretive Data Percent cell count reference ranges are not reported, since discordance with absolute values may lead to misinterpretation of CBC data. Current Interpretive Data was last revised on 2017. Basophil pct 0.7 % [facility] Comment: Interpretive Data Percent cell count reference ranges are not reported, since discordance with absolute values may lead to misinterpretation of CBC data. Current Interpretive Data was last revised on 2017. Blood 08/28/2024 8:51 PM CDT 08/28/2024 9:20 PM CDT Elizabet Dickey MD LAB BLOOD ORDERABLES F inal Result [facility] [place] [address] * (ABNORMAL) CBC with auto differential (08/28/2024 8:51 PM CDT) WBC 9.02 3.80 - 9.90 K/cumm Hgb 7.9(L) 11.9 - 15.5 g/dL [facility] Hct 25.5(L) 35.6 - 45.5 % [facility] Plt 326 150 - 400 K/cumm [facility] MPV 10.1 9.1 - 12.3 fL [facility] RBC 2.88(L) 3.90 - 5.20 M/cumm [facility] MCV 88.5 81.3 - 96.4 fL [facility] MCH 27.4 27.1 - 33.3 pg [facility] MCHC 31.0(L) 32.3 - 35.7 g/dL [facility] RDW CV 17.6(H) 11.1 - 14.9 % [facility] RDW SD 53.8(H) 35.7 - 48.1 fL [facility] NRBC abs 0.03(H) 0.00 - 0.01 K/cumm [facility] Blood 08/28/2024 8:51 PM CDT 08/28/2024 9:20 PM CDT Elizabet Dickey MD LAB BLOOD ORDERABLES F inal Result [facility] [place] [address] * Type and screen (08/28/2024 8:51 PM CDT) Pathologist [facility] [place] ABO Rh A Positive Marybeth, indirect Negative [facility] Blood 08/28/2024 8:51 PM CDT 08/28/2024 9:37 PM CDT Narrative [facility] - 08/28/2024 10:56 PM CDT Has the patient had Daratumumab or Isatuximab in the past 6 months?->Unknown Result [facility] Bartolomemarylu Lowellmarylu Penny MD LAB BLOOD BANK TEST ORDERABLES Final Result [facility] Department [place] [address] * (ABNORMAL) Comprehensive metabolic panel (08/28/2024 8:51 PM CDT) Sodium 137 135 - 145 mmol/L Potassium, pl 4.2 3.3 - 4.9 mmol/L [facility] Chloride 100 97 - 110 mmol/L [facility] CO2 27 22 - 32 mmol/L [facility] Anion gap 10 2 - 15 mmol/L [facility] BUN 14 6 - 25 mg/dL [facility] Creatinine 5.37(H) 0.60 - 1.10 mg/dL [facility] Glucose 101 70 - 199 mg/dL [facility] Comment: Interpretive Data Fasting glucose >/= [...] 2022. Calcium 7.9(L) 8.5 - 10.3 mg/dL [facility] Bilirubin, total 0.4 0.1 - 1.2 mg/dL [facility] Protein, pl 7.8 6.5 - 8.5 g/dL [facility] Albumin 1.9(L) 3.5 - 5.0 g/dL [facility] Alk phos 112 40 - 130 Units/L [facility] ALT 73(H) 7 - 45 Units/L [facility] AST 114(H) 10 - 45 Units/L [facility] Blood 08/28/2024 8:51 PM CDT 08/28/2024 9:20 PM CDT Valerie Cooper MD PhD LAB BLOOD ORDERABLES Final Result Performing Organization Address City/[facility] Co de Phone Number [facility] [place] [address] * POCT glucose (08/28/2024 8:07 PM CDT) Glucose, POC 107 70 - 199 mg/dL Blood 08/28/2024 8:07 PM CDT 08/28/2024 8:07 PM CDT Elizabet Dickey MD LAB POCT ORDERABLES - DEVICE Final Result Performing Organization Address City/[facility] Co de Phone Number [facility] [place] [address] * POCT glucose (08/28/2024 7:20 PM CDT) Glucose, POC 88 70 - 199 mg/dL Blood 08/28/2024 7:20 PM CDT 08/28/2024 7:20 PM CDT Elizabet Dickey MD LAB POCT ORDERABLES - DEVICE Final Result Performing Organization Address City/[facility] Co de Phone Number [facility] [place] [address] * (ABNORMAL) POCT glucose (08/28/2024 6:58 PM CDT) Glucose, POC 62(L) 70 - 199 mg/dL Blood 08/28/2024 6:58 PM CDT 08/28/2024 6:58 PM CDT us Elizabet Dickey MD LAB POCT ORDERABLES - DEVICE Final Result Performing Organization Address [facility] Co de Phone Number [facility] [place] [address] * POCT glucose (08/28/2024 12:00 PM CDT) Glucose, POC 77 70 - 199 mg/dL Blood 08/28/2024 12:0 0 PM CDT 08/28/2024 12:00 PM CDT us Elizabet Dickey MD LAB POCT ORDERABLES - DEVICE Final Result Performing Organization Address [facility] Co de Phone Number [facility] [address] [place] [address] * POCT glucose (08/28/2024 7:43 AM CDT) Glucose, POC 71 70 - 199 mg/dL Blood 08/28/2024 7:43 AM CDT 08/28/2024 7:43 AM CDT us Elizabet Dickey MD LAB POCT ORDERABLES - DEVICE Final Result Performing Organization Address [facility] de Phone Number [facility] [place] [address] * (ABNORMAL) eGFR (08/27/2024 9:10 PM CDT) [...] MD PhD LAB BLOOD ORDERABLES Final Result [facility] Department [place] [address] * (ABNORMAL) Comprehensive metabolic panel (08/27/2024 9:10 PM CDT) Pathologist [facility] [place] Sodium 132(L) 135 - 145 mmol/L Potassium, pl 3.5 3.3 - 4.9 mmol/L [facility] Chloride 99 97 - 110 mmol/L [facility] CO2 29 22 - 32 mmol/L [facility] Anion gap 4 2 - 15 mmol/L [facility] BUN 10 6 - 25 mg/dL [facility] Creatinine 3.79(H) 0.60 - 1.10 mg/dL [facility] Glucose 102 70 - 199 mg/dL [facility] Comment: Interpretive Data Fasting glucose >/= [...] 2022. Calcium 7.6(L) 8.5 - 10.3 mg/dL [facility] Bilirubin, total 0.4 0.1 - 1.2 mg/dL [facility] Protein, pl 7.2 6.5 - 8.5 g/dL [facility] Albumin 1.7(L) 3.5 - 5.0 g/dL [facility] Alk phos 108 40 - 130 Units/L [facility] ALT 54(H) 7 - 45 Units/L [facility] AST 101(H) 10 - 45 Units/L [facility] Blood 08/27/2024 9:10 PM CDT 08/27/2024 9:45 PM CDT us Valerie Cooper MD PhD LAB BLOOD ORDERABLES Final Result Performing Organization Address [facility] Co de Phone Number [facility] [place] [address] * POCT glucose (08/27/2024 6:28 PM CDT) Glucose, POC 80 70 - 199 mg/dL Blood 08/27/2024 6:28 PM CDT 08/27/2024 6:28 PM CDT Jone Vann MD LAB POCT ORDERABLES - DEVICE Final Result Performing Organization Address [facility] [facility] Co de Phone Number [facility] [place] [address] * POCT glucose (08/27/2024 4:35 PM CDT) Glucose, POC 79 70 - 199 mg/dL Blood 08/27/2024 4:35 PM CDT 08/27/2024 4:35 PM CDT Jone Vann MD LAB POCT ORDERABLES - DEVICE Final Result Performing Organization Address [facility] Co de Phone Number [facility] [place] [address] * POCT glucose (08/27/2024 11:13 AM CDT) Glucose, POC 76 70 - 199 mg/dL Blood 08/27/2024 11:1 3 AM CDT 08/27/2024 11:13 AM CDT Jone Vann MD LAB POCT ORDERABLES - DEVICE Final Result Performing Organization Address City/[facility] Co [place] [address] * POCT glucose (08/27/2024 7:40 AM CDT) Glucose, POC 73 70 - 199 mg/dL Blood 08/27/2024 7:40 AM CDT 08/27/2024 7:40 AM CDT Jone Vann MD LAB POCT ORDERABLES - DEVICE Final Result Performing Organization Address [facility] de Phone Number [facility] [place] [address] * XR Chest 1 View (08/27/2024 5:23 [...] noted. No pneumothorax seen. Electronically signed by: Roque Sebastian 08/27/2024 9:17 AM CDT EXAMINATION: 1 view [...] MD PhD LAB BLOOD ORDERABLES Final Result [facility] [place] [address] * (ABNORMAL) Differential, auto (08/26/2024 9:49 PM CDT) Neutrophil abs 7.92(H) 1.50 - 6.50 K/cumm Imm gran abs 0.09 0.00 - 0.10 K/cumm [facility] Lymphocyte abs 1.87 0.80 - 3.30 K/cumm [facility] Monocyte abs 1.12(H) 0.20 - 0.80 K/cumm [facility] Eosinophil abs 0.13 0.00 - 0.50 K/cumm [facility] Basophil abs 0.07 0.00 - 0.10 K/cumm [facility] Neutrophil pct 70.7 % [facility] Comment: Interpretive Data Percent cell count reference ranges are not reported, since discordance with absolute values may lead to misinterpretation of CBC data. Current Interpretive Data was last revised on 2017. Imm gran pct 0.8 % [facility] Comment: Interpretive Data Percent cell count reference ranges are not reported, since discordance with absolute values may lead to misinterpretation of CBC data. Current Interpretive Data was last revised on 2017. Lymphocyte pct 16.7 % [facility] Comment: Interpretive Data Percent cell count reference ranges are not reported, since discordance with absolute values may lead to misinterpretation of CBC data. Current Interpretive Data was last revised on 2017. Monocyte pct 10.0 % [facility] Comment: Interpretive Data Percent cell count reference ranges are not reported, since discordance with absolute values may lead to misinterpretation of CBC data. Current Interpretive Data was last revised on 2017. Eosinophil pct 1.2 % [facility] Comment: Interpretive Data Percent cell count reference ranges are not reported, since discordance with absolute values may lead to misinterpretation of CBC data. Current Interpretive Data was last revised on 2017. Basophil pct 0.6 % [facility] Comment: Interpretive Data Percent cell count reference ranges are not reported, since discordance with absolute values may lead to misinterpretation of CBC data. Current Interpretive Data was last revised on 2017. Blood 08/26/2024 9:49 PM CDT 08/26/2024 10:33 PM CDT Jone Vann MD LAB BLOOD ORDERABLES Final R esult Performing Organization Address City/[facility] Co de Phone Number [facility] [place] [address] * (ABNORMAL) CBC with auto differential (08/26/2024 9:49 PM CDT) WBC 11.20(H) 3.80 - 9.90 K/cumm Hgb 7.7(L) 11.9 - 15.5 g/dL [facility] Hct 24.4(L) 35.6 - 45.5 % [facility] Plt 299 150 - 400 K/cumm [facility] MPV 10.1 9.1 - 12.3 fL [facility] RBC 2.74(L) 3.90 - 5.20 M/cumm [facility] MCV 89.1 81.3 - 96.4 fL [facility] MCH 28.1 27.1 - 33.3 pg [facility] MCHC 31.6(L) 32.3 - 35.7 g/dL [facility] RDW CV 16.8(H) 11.1 - 14.9 % [facility] RDW SD 52.7(H) 35.7 - 48.1 fL [facility] NRBC abs 0.00 0.00 - 0.01 K/cumm [facility] Blood 08/26/2024 9:49 PM CDT 08/26/2024 10:33 PM CDT us Jone Vann MD LAB BLOOD ORDERABLES Final R esult Performing Organization Address City/[facility]/ZIP Co de Phone Number [facility] [place] [address] * (ABNORMAL) Comprehensive metabolic panel (08/26/2024 9:49 PM CDT) Sodium 136 135 - 145 mmol/L Potassium, pl 4.5 3.3 - 4.9 mmol/L [facility] Chloride 100 97 - 110 mmol/L [facility] CO2 27 22 - 32 mmol/L [facility] Anion gap 9 2 - 15 mmol/L [facility] BUN 23 6 - 25 mg/dL [facility] Creatinine 6.49(H) 0.60 - 1.10 mg/dL [facility] Glucose 77 70 - 199 mg/dL [facility] Comment: Interpretive Data Fasting glucose >/= [...] 2022. Calcium 8.0(L) 8.5 - 10.3 mg/dL [facility] Bilirubin, total 0.4 0.1 - 1.2 mg/dL [facility] Protein, pl 7.8 6.5 - 8.5 g/dL [facility] Albumin 2.0(L) 3.5 - 5.0 g/dL [facility] Alk phos 113 40 - 130 Units/L [facility] ALT 33 7 - 45 Units/L [facility] AST 50(H) 10 - 45 Units/L [facility] Blood 08/26/2024 9:49 PM CDT 08/26/2024 10:32 PM CDT us Valerie Cooper MD PhD LAB BLOOD ORDERABLES Final Result [facility] [place] [address] * POCT glucose (08/26/2024 9:04 PM CDT) Glucose, POC 93 70 - 199 mg/dL Blood 08/26/2024 9:04 PM CDT 08/26/2024 9:04 PM CDT Jone Vann MD LAB POCT ORDERABLES - DEVICE Final Result Performing Organization Address City/[facility] Co de Phone Number [facility] [place] [address] * POCT glucose (08/26/2024 7:05 PM CDT) Glucose, POC 110 70 - 199 mg/dL Blood 08/26/2024 7:05 PM CDT 08/26/2024 7:05 PM CDT Jone Vann MD LAB POCT ORDERABLES - DEVICE Final Result Performing Organization Address [facility] de Phone Number [facility] [place] [address] * POCT glucose (08/26/2024 1:17 PM CDT) Glucose, POC 126 70 - 199 mg/dL Blood 08/26/2024 1:17 PM CDT 08/26/2024 1:17 PM CDT Jone Vann MD LAB POCT ORDERABLES - DEVICE Final Result Performing Organization Address [facility] de Phone Number [facility] [place] [address] * POCT glucose (08/26/2024 8:18 AM CDT) Glucose, POC 101 70 - 199 mg/dL Blood 08/26/2024 8:18 AM CDT 08/26/2024 8:18 AM CDT us Jone Vann MD LAB POCT ORDERABLES - DEVICE Final Result Performing Organization Address [facility] Co de Phone Number [facility] [place] [address] * XR Chest 1 View (08/26/2024 5:41 [...] unchanged. Electronically signed by: Arnulfo Gramajo M.D. us Jone Vann MD IMG XR PROCEDURES Final Resu lt * Transfuse RBC (08/26/2024 3:30 AM CDT) Blood Carla Penny MD BLOOD TRANSFUSI ON ORDERABLES Final Result Performing Organization Address [facility] Co de Phone Number [facility] [place] [address] * Type and screen (08/26/2024 12:28 AM CDT) [facility] ABO Rh A Positive Marybeth, indirect Negative [facility] Blood 08/26/2024 12:2 8 AM CDT 08/26/2024 12:49 AM CDT Narrative [facility] - 08/26/2024 1:58 AM CDT Has the patient had Daratumumab or Isatuximab in the past 6 months?->Unknown Carla Penny MD LAB BLOOD BANK TEST ORDERABLES Final Result Performing Organization Address [facility] [place] [address] * Prepare RBC: 1 Units (08/26/2024 12:06 AM CDT) [facility] Product code [id number] Unit Number [id number] [facility] Product Blood Type APOS [facility] Dispense Status PRESUMED TRANSFUSED [facility] Blood 08/26/2024 12:0 6 AM CDT 08/26/2024 12:06 AM CDT Narrative [facility] - 08/26/2024 4:01 PM CDT Are special requirements needed? (All products are leukoreduced and CMV- safe)- >No Date required:-[id number] LRRBC # of [id number] Reasons:-Hgb <7 g/dL} Crala Penny MD BLOOD BANK PROD UCT ORDERABLES Final Result Performing Organization Address City/[facility] Co de Phone Number [facility] [address] * (ABNORMAL) eGFR (08/25/2024 10:15 PM CDT) [facility] eGFR 12(L) >=60 mL/min/1. 73 m2 [...] MD PhD LAB BLOOD ORDERABLES Final Result [facility] [place] [address] * (ABNORMAL) Differential, auto (08/25/2024 10:15 PM CDT) [facility] Neutrophil abs 5.78 1.50 - 6.50 K/cumm Imm gran abs 0.08 0.00 - 0.10 K/cumm [facility] Lymphocyte abs 1.71 0.80 - 3.30 K/cumm [facility] Monocyte abs 0.92(H) 0.20 - 0.80 K/cumm [facility] Eosinophil abs 0.18 0.00 - 0.50 K/cumm [facility] Basophil abs 0.08 0.00 - 0.10 K/cumm [facility] Neutrophil pct 66.1 % [facility] Comment: Interpretive Data Percent cell count reference ranges are not reported, since discordance with absolute values may lead to misinterpretation of CBC data. Current Interpretive Data was last revised on 2017. Imm gran pct 0.9 % [facility] Comment: Interpretive Data Percent cell count reference ranges are not reported, since discordance with absolute values may lead to misinterpretation of CBC data. Current Interpretive Data was last revised on 2017. Lymphocyte pct 19.5 % ARAMIS [facility] Comment: Interpretive Data Percent cell count reference ranges are not reported, since discordance with absolute values may lead to misinterpretation of CBC data. Current Interpretive Data was last revised on 2017. Monocyte pct 10.5 % ARAMIS [facility] Comment: Interpretive Data Percent cell count reference ranges are not reported, since discordance with absolute values may lead to misinterpretation of CBC data. Current Interpretive Data was last revised on 2017. Eosinophil pct 2.1 % ARAMIS [facility] Comment: Interpretive Data Percent cell count reference ranges are not reported, since discordance with absolute values may lead to misinterpretation of CBC data. Current Interpretive Data was last revised on 2017. Basophil pct 0.9 % ARAMIS [facility] Comment: Interpretive Data Percent cell count reference ranges are not reported, since discordance with absolute values may lead to misinterpretation of CBC data. Current Interpretive Data was last revised on 2017. Blood 08/25/2024 10:1 5 PM CDT 08/25/2024 11:24 PM CDT us Jone Vann MD LAB BLOOD ORDERABLES Final R esult [facility] Department [place] [address] * (ABNORMAL) CBC with auto differential (08/25/2024 10:15 PM CDT) WBC 8.75 3.80 - 9.90 K/cumm Hgb 6.0(C) 11.9 - 15.5 g/dL [facility] Comment:This result has been called to Isrrael ART by [email or web address] on 08/25/2024 23:56:58, and has been read back. Hct 19.4(L) 35.6 - 45.5 % [facility] Plt 297 150 - 400 K/cumm [facility] MPV 10.0 9.1 - 12.3 fL [facility] RBC 2.19(L) 3.90 - 5.20 M/cumm [facility] MCV 88.6 81.3 - 96.4 fL [facility] MCH 27.4 27.1 - 33.3 pg [facility] MCHC 30.9(L) 32.3 - 35.7 g/dL [facility] RDW CV 16.6(H) 11.1 - 14.9 % [facility] RDW SD 53.2(H) 35.7 - 48.1 fL [facility] NRBC abs 0.00 0.00 - 0.01 K/cumm [facility] Blood 08/25/2024 10:1 5 PM CDT 08/25/2024 11:24 PM CDT Jone Vann MD LAB BLOOD ORDERABLES Final R esult [facility] Department [place] [address] * (ABNORMAL) Comprehensive metabolic panel (08/25/2024 10:15 PM CDT) Sodium 136 135 - 145 mmol/L Potassium, pl 3.5 3.3 - 4.9 mmol/L [facility] Chloride 104 97 - 110 mmol/L [facility] CO2 28 22 - 32 mmol/L [facility] Anion gap 4 2 - 15 mmol/L [facility] BUN 17 6 - 25 mg/dL [facility] Creatinine 4.77(H) 0.60 - 1.10 mg/dL [facility] Glucose 136 70 - 199 mg/dL [facility] Comment: Interpretive Data Fasting glucose >/= [...] 2022. Calcium 7.1(L) 8.5 - 10.3 mg/dL [facility] Bilirubin, total 0.3 0.1 - 1.2 mg/dL [facility] Protein, pl 6.6 6.5 - 8.5 g/dL [facility] Albumin 1.6(L) 3.5 - 5.0 g/dL [facility] Alk phos 112 40 - 130 Units/L [facility] ALT 32 7 - 45 Units/L [facility] AST 57(H) 10 - 45 Units/L [facility] Blood 08/25/2024 10:1 5 PM CDT 08/25/2024 11:23 PM CDT us Valerie Cooper MD PhD LAB BLOOD ORDERABLES Final Result [facility] [place] [address] * POCT glucose (08/25/2024 6:00 PM CDT) Glucose, POC 103 70 - 199 mg/dL Blood 08/25/2024 6:00 PM CDT 08/25/2024 6:00 PM CDT us Jone Vann MD LAB POCT ORDERABLES - DEVICE Final Result [facility] [place] [address] * XR Abdomen Ap 1 Vw (08/25/2024 [...] LAB POCT ORDERABLES - DEVICE Final Result [facility] [place] [address] * POCT glucose (08/25/2024 10:54 AM CDT) Glucose, POC 73 70 - 199 mg/dL Blood 08/25/2024 10:5 4 AM CDT 08/25/2024 10:54 AM CDT Jone Vann MD LAB POCT ORDERABLES - DEVICE Final Result Performing Organization Address [facility] Co de Phone Number [facility] [place] [address] * POCT glucose (08/25/2024 10:29 AM CDT) Glucose, POC 75 70 - 199 mg/dL Blood 08/25/2024 10:2 9 AM CDT 08/25/2024 10:29 AM CDT Jone Vann MD LAB POCT ORDERABLES - DEVICE Final Result Performing Organization Address [facility] de Phone Number [facility] [place] [address] * (ABNORMAL) POCT glucose (08/25/2024 9:54 AM CDT) Glucose, POC 67(L) 70 - 199 mg/dL Blood 08/25/2024 9:54 AM CDT 08/25/2024 9:54 AM CDT Jone Vann MD LAB POCT ORDERABLES - DEVICE Final Result Performing Organization Address City/[facility] de Phone Number [facility] [place] [address] * XR Chest 1 View (08/25/2024 6:41 [...] * (ABNORMAL) eGFR (08/24/2024 8:32 PM CDT) Pathologist [facility] [place] eGFR 16(L) >=60 mL/min/1. 73 m2 Comment: [...] MD PhD LAB BLOOD ORDERABLES Final Result [facility] Department [place] [address] * (ABNORMAL) Comprehensive metabolic panel (08/24/2024 8:32 PM CDT) Sodium 133(L) 135 - 145 mmol/L Potassium, pl 3.7 3.3 - 4.9 mmol/L [facility] Chloride 97 97 - 110 mmol/L [facility] CO2 33(H) 22 - 32 mmol/L [facility] Anion gap 3 2 - 15 mmol/L [facility] BUN 11 6 - 25 mg/dL [facility] Creatinine 3.70(H) 0.60 - 1.10 mg/dL [facility] Glucose 77 70 - 199 mg/dL [facility] Comment: Interpretive Data Fasting glucose >/= [...] classification and Diagnosis of Diabetes Diabetes Care 2022; 46: S19-S40. Current interpretive data was last revised 2022. Calcium 8.0(L) 8.5 - 10.3 mg/dL [facility] Bilirubin, total 0.4 0.1 - 1.2 mg/dL [facility] Protein, pl 7.6 6.5 - 8.5 g/dL [facility] Albumin 1.7(L) 3.5 - 5.0 g/dL [facility] Alk phos 87 40 - 130 Units/L [facility] ALT 32 7 - 45 Units/L [facility] AST 66(H) 10 - 45 Units/L [facility] Blood 08/24/2024 8:32 PM CDT 08/24/2024 9:25 PM CDT us Valerie Cooper MD PhD LAB BLOOD ORDERABLES Final Result Performing Organization Address [facility]/ZIP Co de Phone Number [facility] [place] [address] * POCT glucose (08/24/2024 8:18 PM CDT) Glucose, POC 134 70 - 199 mg/dL Blood 08/24/2024 8:18 PM CDT 08/24/2024 8:18 PM CDT Jone Vann MD LAB POCT ORDERABLES - DEVICE Final Result Performing Organization Address City/[facility]/ZIP Co de Phone Number [facility] [place] [address] * POCT glucose (08/24/2024 6:24 PM CDT) Glucose, POC 103 70 - 199 mg/dL Blood 08/24/2024 6:24 PM CDT 08/24/2024 6:24 PM CDT Jone Vann MD LAB POCT ORDERABLES - DEVICE Final Result Performing Organization Address [facility] Co de Phone Number [facility] [place] [address] * (ABNORMAL) POCT glucose (08/24/2024 5:45 PM CDT) Glucose, POC 69(L) 70 - 199 mg/dL Comment:Glu2: RN/MD Notified Glucose comment 1 Glu2: RN/MD Notified [facility] Blood 08/24/2024 5:45 PM CDT 08/24/2024 5:45 PM CDT us Jone Vann MD LAB POCT ORDERABLES - DEVICE Final Result Performing Organization Address [facility] Co de Phone Number [facility] [place] [address] * POCT glucose (08/24/2024 1:46 PM CDT) Glucose, POC 108 70 - 199 mg/dL Blood 08/24/2024 1:46 PM CDT 08/24/2024 1:46 PM CDT Jone Vann MD LAB POCT ORDERABLES - DEVICE Final Result Performing Organization Address [facility] Co de Phone Number [facility] [place] [address] * POCT glucose (08/24/2024 1:30 PM CDT) Glucose, POC 90 70 - 199 mg/dL Blood 08/24/2024 1:30 PM CDT 08/24/2024 1:30 PM CDT Jone Vann MD LAB POCT ORDERABLES - DEVICE Final Result Performing Organization Address [facility] Co de Phone Number [facility] [place] [address] * (ABNORMAL) POCT glucose (08/24/2024 1:09 PM CDT) Glucose, POC 68(L) 70 - 199 mg/dL Comment:Glu2: RN/MD Notified Glucose comment 1 Glu2: RN/MD Notified [facility] Blood 08/24/2024 1:09 PM CDT 08/24/2024 1:09 PM CDT Jone Vann MD LAB POCT ORDERABLES - DEVICE Final Result Performing Organization Address City/[facility]/[place] [address] * (ABNORMAL) POCT glucose (08/24/2024 12:30 PM CDT) Glucose, POC 61(L) 70 - 199 mg/dL Blood 08/24/2024 12:3 0 PM CDT 08/24/2024 12:30 PM CDT Jone Vann MD LAB POCT ORDERABLES - DEVICE Final Result Performing Organization Address City/[facility]/[place] [address] * POCT glucose (08/24/2024 9:18 AM CDT) Glucose, POC 86 70 - 199 mg/dL Blood 08/24/2024 9:18 AM CDT 08/24/2024 9:18 AM CDT Jone Vann MD LAB POCT ORDERABLES - DEVICE Final Result Performing Organization Address City/[facility]/ZIP Co de Phone Number [facility] [place] [address] * POCT glucose (08/24/2024 8:26 AM CDT) Glucose, POC 70 70 - 199 mg/dL Blood 08/24/2024 8:26 AM CDT 08/24/2024 8:26 AM CDT Jone Vann MD LAB POCT ORDERABLES - DEVICE Final Result Performing Organization Address [facility] Co de Phone Number [facility] [place] [address] * Hepatitis B surface antibody (immune status) Blood (08/24/2024 7:54 AM CDT) Pathologist [facility] [place] HBsAb (immune status) Reactive Comment:This result is consi stent with immunity to Hepatitis B Virus when used in the setting of routine screening. Current interpretive data was last revised on 21 HBsAb (immune status) index 127.0 mIUnits/m L [facility] Blood 08/24/2024 7:54 AM CDT 08/24/2024 8:35 AM CDT us Nikita Umanzor MD LAB MICROBIOLOGY - GENERAL ORDER MARTINEZ Final Result Performing Organization Address [facility] de Phone Number [facility] [place] [address] * XR Chest 1 View (08/24/2024 7:02 [...] * (ABNORMAL) eGFR (08/23/2024 8:55 PM CDT) eGFR 10(L) >=60 mL/min/1. 73 [...] MD PhD LAB BLOOD ORDERABLES Final Result [facility] [place] [address] * (ABNORMAL) Differential, auto (08/23/2024 8:55 PM CDT) Neutrophil abs 7.74(H) 1.50 - 6.50 K/cumm Imm gran abs 0.07 0.00 - 0.10 K/cumm [facility] Lymphocyte abs 1.68 0.80 - 3.30 K/cumm [facility] Monocyte abs 0.91(H) 0.20 - 0.80 K/cumm [facility] Eosinophil abs 0.20 0.00 - 0.50 K/cumm [facility] Basophil abs 0.10 0.00 - 0.10 K/cumm [facility] Neutrophil pct 72.3 % [facility] Comment: Interpretive Data Percent cell count reference ranges are not reported, since discordance with absolute values may lead to misinterpretation of CBC data. Current Interpretive Data was last revised on 2017. Imm gran pct 0.7 % [facility] Comment: Interpretive Data Percent cell count reference ranges are not reported, since discordance with absolute values may lead to misinterpretation of CBC data. Current Interpretive Data was last revised on 2017. Lymphocyte pct 15.7 % [facility] Comment: Interpretive Data Percent cell count reference ranges are not reported, since discordance with absolute values may lead to misinterpretation of CBC data. Current Interpretive Data was last revised on 2017. Monocyte pct 8.5 % [facility] Comment: Interpretive Data Percent cell count reference ranges are not reported, since discordance with absolute values may lead to misinterpretation of CBC data. Current Interpretive Data was last revised on 2017. Eosinophil pct 1.9 % [facility] Comment: Interpretive Data Percent cell count reference ranges are not reported, since discordance with absolute values may lead to misinterpretation of CBC data. Current Interpretive Data was last revised on 2017. Basophil pct 0.9 % [facility] Comment: Interpretive Data Percent cell count reference ranges are not reported, since discordance with absolute values may lead to misinterpretation of CBC data. Current Interpretive Data was last revised on 2017. Blood 08/23/2024 8:55 PM CDT 08/23/2024 9:40 PM CDT us Jone Vann MD LAB BLOOD ORDERABLES Final R esult [facility] Department [place] [address] * (ABNORMAL) CBC with auto differential (08/23/2024 8:55 PM CDT) WBC 10.70(H) 3.80 - 9.90 K/cumm Hgb 7.5(L) 11.9 - 15.5 g/dL [facility] Hct 23.5(L) 35.6 - 45.5 % [facility] Plt 300 150 - 400 K/cumm [facility] MPV 9.7 9.1 - 12.3 fL [facility] RBC 2.67(L) 3.90 - 5.20 M/cumm [facility] MCV 88.0 81.3 - 96.4 fL [facility] MCH 28.1 27.1 - 33.3 pg [facility] MCHC 31.9(L) 32.3 - 35.7 g/dL [facility] RDW CV 16.4(H) 11.1 - 14.9 % [facility] RDW SD 51.8(H) 35.7 - 48.1 fL [facility] NRBC abs 0.00 0.00 - 0.01 K/cumm [facility] Blood 08/23/2024 8:55 PM CDT 08/23/2024 9:40 PM CDT Jone Vann MD LAB BLOOD ORDERABLES Final R esult Performing Organization Address City/[facility]/ZIP Co de Phone Number [facility] [place] [address] * Type and screen (08/23/2024 8:55 PM CDT) Marybeth, indirect Negative ABO Rh A Positive [facility] Blood 08/23/2024 8:55 PM CDT 08/23/2024 9:43 PM CDT Narrative [facility] - 08/23/2024 10:59 PM CDT Has the patient had Daratumumab or Isatuximab in the past 6 months?->Unknown Royal Weiss MD LAB BLOOD BANK TEST ORDER MARTINEZ Final Result Performing Organization Address [facility] Co de Phone Number [facility] [place] [address] * (ABNORMAL) Comprehensive metabolic panel (08/23/2024 8:55 PM CDT) Pathologist [facility] [place] Sodium 133(L) 135 - 145 mmol/L Potassium, pl 4.6 3.3 - 4.9 mmol/L [facility] Chloride 97 97 - 110 mmol/L [facility] CO2 32 22 - 32 mmol/L [facility] Anion gap 4 2 - 15 mmol/L [facility] BUN 21 6 - 25 mg/dL [facility] Creatinine 5.43(H) 0.60 - 1.10 mg/dL [facility] Glucose 75 70 - 199 mg/dL [facility] Comment: Interpretive Data Fasting glucose >/= [...] 2022. Calcium 8.3(L) 8.5 - 10.3 mg/dL [facility] Bilirubin, total 0.4 0.1 - 1.2 mg/dL [facility] Protein, pl 7.6 6.5 - 8.5 g/dL [facility] Albumin 1.9(L) 3.5 - 5.0 g/dL [facility] Alk phos 86 40 - 130 Units/L [facility] ALT 14 7 - 45 Units/L [facility] AST 39 10 - 45 Units/L [facility] Blood 08/23/2024 8:55 PM CDT 08/23/2024 9:41 PM CDT us Valerie Cooper MD PhD LAB BLOOD ORDERABLES Final Result Performing Organization Address [facility]/ZIP Co de Phone Number [facility] Department [place] [address] * POCT glucose (08/23/2024 8:21 PM CDT) Glucose, POC 85 70 - 199 mg/dL Blood 08/23/2024 8:21 PM CDT 08/23/2024 8:21 PM CDT us Jone Vann MD LAB POCT ORDERABLES - DEVICE Final Result [facility] [place] [address] * POCT glucose (08/23/2024 5:55 PM CDT) Glucose, POC 87 70 - 199 mg/dL Blood 08/23/2024 5:55 PM CDT 08/23/2024 5:55 PM CDT Jone Vann MD LAB POCT ORDERABLES - DEVICE Final Result [facility] Department [place] [address] * IR Tunneled Line Placement > 5 Years (08/23/2024 1:37 PM CDT) Anatomical Region Laterality Modality Body N/A Ultrasound 08/23/2024 3:15 PM CDT Impressions 08/28/2024 9:03 AM CDT Successful tunneled dialysis catheter and tunneled power line placement via the right internal jugular vein. PLAN: The catheter is ready for immediate use. When treatment is completed, removal can be scheduled by calling [facility] - [phone] [facility] - [phone] Dictated by: Betzaida Owusu M.D. The radiology [...] was obtained. Prior to beginning the procedure, Clarence Protocol was used to confirm the patient's [...] was obtained. Prior to beginning the procedure, Clarence Protocol was used to confirm the patient's [...] completed, removal can be scheduled by calling [facility] - [phone] [facility] - [phone] Dictated by: Betzaida Owusu M.D. The radiology attending physician has personally reviewed this study, and had reviewed and/or edited this written report and agrees with it. Electronically signed by: Royal Salinas M.D. Jone Vann MD IMG IR PROCEDURES Final Resu lt * POCT glucose (08/23/2024 10:36 AM CDT) Glucose, POC 156 70 - 199 mg/dL Blood 08/23/2024 10:3 6 AM CDT 08/23/2024 10:36 AM CDT Jone Vann MD LAB POCT ORDERABLES - DEVICE Final Result Performing Organization Address [facility] Co de Phone Number [facility] Department [place] [address] * (ABNORMAL) POCT glucose (08/23/2024 10:01 AM CDT) Glucose, POC 67(L) 70 - 199 mg/dL Blood 08/23/2024 10:0 1 AM CDT 08/23/2024 10:01 AM CDT Jone Vann MD LAB POCT ORDERABLES - DEVICE Final Result Performing Organization Address [facility] Co de Phone Number [facility] Department [place] [address] * Blood culture Blood (08/23/2024 5:23 AM CDT) Report Final Report: No growth Blood 08/23/2024 5:23 AM CDT 08/23/2024 6:05 AM CDT Narrative [facility] - 08/27/2024 7:00 AM CDT Collection->Peripheral 1. [...] performance characteristics have been verified by the [facility]. For questions about this culture, contact the Microbiology Laboratory at [phone]. Interpretive data was last revised on 24. Hina Poon MD LAB MICROBIOLOGY - GENERAL O RDERABLES Final Result [facility] Department [place] [address] * POCT glucose (08/23/2024 4:01 AM CDT) Glucose, POC 121 70 - 199 mg/dL Blood 08/23/2024 4:01 AM CDT 08/23/2024 4:01 AM CDT us Jone Vann MD LAB POCT ORDERABLES - DEVICE Final Result [facility] [place] [address] * (ABNORMAL) POCT glucose (08/23/2024 3:14 AM CDT) Glucose, POC 62(L) 70 - 199 mg/dL Blood 08/23/2024 3:14 AM CDT 08/23/2024 3:14 AM CDT Jone Vann MD LAB POCT ORDERABLES - DEVICE Final Result Performing Organization Address [facility] Co de Phone Number [facility] [place] [address] * XR Chest 1 View (08/23/2024 1:26 [...] PhD LAB BLOOD ORDERABLES Final Result [facility]AM[facility] Department [place] [address] * (ABNORMAL) Comprehensive metabolic panel (08/22/2024 11:35 PM CDT) Sodium 136 135 - 145 mmol/L Potassium, pl 4.3 3.3 - 4.9 mmol/L [facility] Chloride 99 97 - 110 mmol/L [facility] CO2 30 22 - 32 mmol/L [facility] Anion gap 7 2 - 15 mmol/L [facility] BUN 14 6 - 25 mg/dL [facility] Creatinine 4.20(H) 0.60 - 1.10 mg/dL [facility] Glucose 64(L) 70 - 199 mg/dL [facility] Comment: Interpretive Data Fasting glucose >/= [...] 2022. Calcium 8.2(L) 8.5 - 10.3 mg/dL [facility] Bilirubin, total 0.4 0.1 - 1.2 mg/dL [facility] Protein, pl 7.6 6.5 - 8.5 g/dL [facility] Albumin 1.9(L) 3.5 - 5.0 g/dL [facility] Alk phos 91 40 - 130 Units/L [facility] ALT 6(L) 7 - 45 Units/L [facility] AST 23 10 - 45 Units/L [facility] Blood 08/22/2024 11:3 5 PM CDT 08/23/2024 12:46 AM CDT us Valerie Cooper MD PhD LAB BLOOD ORDERABLES Final Result [facility] Department [place] [address] * POCT glucose (08/22/2024 8:48 PM CDT) Glucose, POC 90 70 - 199 mg/dL Blood 08/22/2024 8:48 PM CDT 08/22/2024 8:48 PM CDT Jone Vann MD LAB POCT ORDERABLES - DEVICE Final Result Performing Organization Address [facility] Co de Phone Number [facility] [place] [address] * POCT glucose (08/22/2024 6:38 PM CDT) Glucose, POC 87 70 - 199 mg/dL Blood 08/22/2024 6:38 PM CDT 08/22/2024 6:38 PM CDT Jone Vann MD LAB POCT ORDERABLES - DEVICE Final Result Performing Organization Address [facility] de Phone Number [facility] [place] [address] * (ABNORMAL) POCT glucose (08/22/2024 5:31 PM CDT) Glucose, POC 68(L) 70 - 199 mg/dL Comment:Glu2: RN/ Notified Glucose comment 1 Glu2: RN/MD Notified [facility] Blood 08/22/2024 5:31 PM CDT 08/22/2024 5:31 PM CDT Jone Vann MD LAB POCT ORDERABLES - DEVICE Final Result Performing Organization Address [facility] Co de Phone Number [facility] [place] [address] * POCT glucose (08/22/2024 1:57 PM CDT) Glucose, POC 71 70 - 199 mg/dL Blood 08/22/2024 1:57 PM CDT 08/22/2024 1:57 PM CDT Jone Vann MD LAB POCT ORDERABLES - DEVICE Final Result Performing Organization Address [facility] Co de Phone Number [facility] [place] [address] * (ABNORMAL) POCT glucose (08/22/2024 8:07 AM CDT) Glucose, POC 68(L) 70 - 199 mg/dL Comment:Glu2: RN/ Notified Glucose comment 1 Glu2: RN/MD Notified [facility] Blood 08/22/2024 8:07 AM CDT 08/22/2024 8:07 AM CDT us Jone Vann MD LAB POCT ORDERABLES - DEVICE Final Result Performing Organization Address [facility] Co de Phone Number [facility] [place] [address] * (ABNORMAL) POCT glucose (08/22/2024 7:47 AM CDT) Glucose, POC 68(L) 70 - 199 mg/dL Comment:Glu2: RN/ Notified Glucose comment 1 Glu2: RN/ Notified [facility] Blood 08/22/2024 7:47 AM CDT 08/22/2024 7:47 AM CDT Jone Vann MD LAB POCT ORDERABLES - DEVICE Final Result Performing Organization Address [facility] Co de Phone Number [facility] [place] [address] * (ABNORMAL) eGFR (08/21/2024 10:24 PM CDT) eGFR 9(L) >=60 mL/min/1. 73 m2 Comment: [...] BLOOD ORDERABLES Final Result Performing Organization Address City/[facility]/ZIP Co de Phone Number [facility] [place] [address] * Folate (08/21/2024 10:24 PM CDT) Folic acid See Comment >=5.0 ng/mL Comment: Credited; Hemolyzed Specimen Telephone report made to: Rachele Garcia RN on 08/22/2024 06:54:46 CDT by EV . Blood 08/21/2024 10:2 4 PM CDT 08/21/2024 11:33 PM CDT us Jone Vann MD LAB BLOOD ORDERABLES Final R esult [facility] [place] [address] * (ABNORMAL) Comprehensive metabolic panel (08/21/2024 10:24 PM CDT) Sodium 137 135 - 145 mmol/L Potassium, pl 5.1(H) 3.3 - 4.9 mmol/L [facility] Chloride 99 97 - 110 mmol/L [facility] CO2 30 22 - 32 mmol/L [facility] Anion gap 8 2 - 15 mmol/L [facility] BUN 24 6 - 25 mg/dL [facility] Creatinine 5.88(H) 0.60 - 1.10 mg/dL [facility] Glucose 74 70 - 199 mg/dL [facility] Comment: Interpretive Data Fasting glucose >/= [...] 2022. Calcium 8.1(L) 8.5 - 10.3 mg/dL [facility] Bilirubin, total 0.3 0.1 - 1.2 mg/dL [facility] Protein, pl 7.7 6.5 - 8.5 g/dL [facility] Albumin 1.8(L) 3.5 - 5.0 g/dL [facility] Alk phos 91 40 - 130 Units/L [facility] ALT 7 7 - 45 Units/L [facility] AST 22 10 - 45 Units/L [facility] Blood 08/21/2024 10:2 4 PM CDT 08/21/2024 11:33 PM CDT us Valerie Cooper MD PhD LAB BLOOD ORDERABLES Final Result [facility] Department [place] [address] * Infection Prevention Helen auris PCR, surveillance Axilla/Groin (08/21/2024 7:46 PM CDT) Pathologist [facility] [place] Helen auris DNA Not Detected Not Detected [facility] Comment: Interpretive Data Testing performed by [facility] Disease [facility] using the Noa pramod 6800 Helen auris assay. This assay detects DNA from Helen auris using Real-Time PCR. This assay is laboratory developed and is not cleared by the [place] Food and Drug Administration. The performance characteristics have been verified by the [facility]. Axilla/Groin 08/21/2024 7:46 PM CDT 08/21/2024 8:40 PM CDT Narrative [facility] - 08/22/2024 12:51 PM CDT Order placed by [facility] due to ring surveillance. Instant Order Generic Provider LAB MICROBIOLOGY - GENERAL ORDERABLES Final Result Performing Organization Address City/[facility]/ZIP Co de Phone Number [facility] [place] [address] [facility] * POCT glucose (08/21/2024 6:32 PM CDT) [facility] Glucose, POC 110 70 - 199 mg/dL Blood 08/21/2024 6:32 PM CDT 08/21/2024 6:32 PM CDT Jone Vann MD LAB POCT ORDERABLES - DEVICE Final Result [facility] [place] [address] * (ABNORMAL) POCT glucose (08/21/2024 5:44 PM CDT) Glucose, POC 62(L) 70 - 199 mg/dL Blood 08/21/2024 5:44 PM CDT 08/21/2024 5:44 PM CDT Jone Vann MD LAB POCT ORDERABLES - DEVICE Final Result [facility] Department [place] [address] * XR Chest 1 Vw (08/21/2024 4:30 [...] signed by: Vito Celestin M.D. Sarita Chong DNP IMG XR PROCEDURES Final [...] CDT 08/21/2024 5:49 PM CDT Sarita Chong DNP LAB BODY FLUIDS AND STO OLS ORDERABLES Final Result [facility] Department [place] [address] * Cell count w/rflx diff, body fluid (08/21/2024 4:14 PM CDT) Specimen type, fld Pleural Body site, fld Pleural fluid, left [facility] Color, fld Yellow [facility] Clarity, fld Clear Clear [facility] Nucleated cells, fld 402 /cumm [facility] Comment: Interpretive Data Unless otherwise specified, the reference range and other method performance specifications have not been established for CSF/Body Fluid tests. The test results should be integrated into the clinical context for interpretation. Current interpretive data was last revised on 2018. RBC, fld 2,114 /cumm [facility] Fluid 08/21/2024 4:14 PM CDT 08/21/2024 5:49 PM CDT Sarita Chong [facility] LAB BODY FLUIDS AND STO OLS ORDERABLES Final Result Performing Organization Address [facility]/ZIP Co de Phone Number [facility] [place] [address] * Mycology (fungal) culture and stain Pleural fluid Chest, left (08/21/2024 4:14 PM CDT) Direct Specimen Exam Stain: No Fungal elements seen. Report Final Report: No growth of fungus [facility] Pleural fluid (Chest, left) 08/21/2024 4:14 PM CDT 08/21/2024 5:57 PM CDT Narrative [facility] - 09/18/2024 9:55 AM CDT Fluid specimen received. Testing performed by [facility] ([phone]). Sarita Chong [facility] LAB MICROBIOLOGY - GENE RAL ORDERABLES Final Result Performing Organization Address [facility] Co de Phone Number [facility] [place] [address] * Aerobic and anaerobic culture and gram stain Pleural fluid Chest, left (08/21/2024 4:14 PM CDT) Direct Specimen Exam Stain: Cytospin Gram stain shows: Few polymorphonuclear leukocytes seen. Other cellular material present. No organisms seen. Report Final Report: No growth [facility] Pleural fluid (Chest, left) 08/21/2024 4:14 PM CDT 08/21/2024 5:56 PM CDT Narrative [facility] - 08/28/2024 2:38 PM CDT Fluid specimen received. Testing performed by [facility] ([phone]) Specimens submitted from normally sterile body sites [...] was last revised on 2019. Sarita Chong [facility] LAB MICROBIOLOGY - GENE RAL ORDERABLES Final Result Performing Organization Address [facility] Co de Phone Number [facility] [place] [address] * Protein, body fluid (08/21/2024 4:14 PM CDT) Specimen type, fld Pleural Body site, fld Pleural fluid, left [facility] Protein, fld 4.4 g/dL [facility] Comment: The above specimen type is [...] CDT 08/21/2024 5:43 PM CDT Sarita Chong [facility] LAB BODY FLUIDS AND STO OLS ORDERABLES Final Result Performing Organization Address [facility] Co de Phone Number [facility] [place] [address] * Lactate dehydrogenase, body fluid (08/21/2024 4:14 PM CDT) Specimen type, fld Pleural Body site, fld Pleural fluid, left [facility] LD, fld 182 Units/L [facility] Comment: The above specimen type is [...] CDT 08/21/2024 5:43 PM CDT Sarita Chong [facility] LAB BODY FLUIDS AND STO OLS ORDERABLES Final Result [facility] Department [place] [address] * Glucose, body fluid (08/21/2024 4:14 PM CDT) Specimen type, fld Pleural Body site, fld Pleural fluid, left [facility] Glucose, fld 78 mg/dL [facility] Comment: The above specimen type is [...] and Management. Jonah Clin J Med 2005;72:854-72. [employer] Test directory, Body Fluid Reference Intervals and/or Interpretative Information. [email or web address] Himanshu TIJERINA et al. Pancreatic cyst fluid glucose: rapid, inexpensive, and accurate diagnosis of mucinous pancreatic cysts. Surgery 2018;163:600-5. Deb DG et al. Differential diagnosis of pancreatic cysts: A prospective study on the role of intra-cystic glucose concentration. Digestive Liver Dis 2020;52:1026-32. Current Interpretive Data was last revised 2021. Fluid 08/21/2024 4:14 PM CDT 08/21/2024 5:43 PM CDT Narrative [facility] - 08/21/2024 6:24 PM CDT Body Fluid Type->Pleural Sarita Chong DNP LAB BODY FLUIDS AND STO OLS ORDERABLES Final Result [facility] Department [place] [address] * Chest Tube Insertion -Left side (08/21/2024 3:11 PM CDT) Anatomical Region Laterality Modality Other Narrative Procedure Note Sarita Chong DNP - 08/21/2024 3:11 PM CDT [facility] Interventional Pulmonary Patient Name: Tiffany [...] results. Electronically signed by Sarita Chong NP-C [facility] 08/21/2024 4:08:11 PM Number of Addenda: 0 Note Initiated On: 08/21/2024 3:11 PM us Tone Newberry MD IN CLINIC/BEDSIDE ORDERABLES F inal Result * POCT glucose (08/21/2024 8:38 AM CDT) Glucose, POC 78 70 - 199 mg/dL Blood 08/21/2024 8:38 AM CDT 08/21/2024 8:38 AM CDT us Jone Vann MD LAB POCT ORDERABLES - DEVICE Final Result ARAMIS [facility] Department [place] [address] * Infection Prevention Helen auris PCR, surveillance Axilla/Groin (08/21/2024 1:29 AM CDT) Helen auris DNA Not Detected Not Detected [facility] Comment: Interpretive Data Testing performed by [facility] using the Noa pramod 6800 Helen auris assay. This assay detects DNA from Helen auris using Real-Time PCR. This assay is laboratory developed and is not cleared by the [place] Food and Drug Administration. The performance characteristics have been verified by the [facility]. Axilla/Groin 08/21/2024 1:29 AM CDT 08/21/2024 4:44 AM CDT Umang Phillips MD LAB MICROBIOLOGY - GENERAL ORDER MARTINEZ Final Result ARAMIS [facility] Department [place] [address] [facility] * (ABNORMAL) eGFR (08/21/2024 1:29 AM [...] BLOOD ORDERABLES Final Result Performing Organization Address City/[facility]/ZIP Co de Phone Number [facility] [place] [address] * Type and screen (08/21/2024 1:29 AM CDT) [facility] ABO Rh A Positive Marybeth, indirect Negative [facility] Blood 08/21/2024 1:29 AM CDT 08/21/2024 2:32 AM CDT Narrative [facility] - 08/21/2024 3:47 AM CDT Has the patient had Daratumumab or Isatuximab in the past 6 months?->Unknown us Royal Weiss MD LAB BLOOD BANK TEST ORDER MARTINEZ Final Result Performing Organization Address [facility]/ZIP Co de Phone Number [facility] [place] [address] * Vitamin B12 (08/21/2024 1:29 AM CDT) [facility] Vitamin B12 888 230 - 1,250 pg/mL Blood 08/21/2024 1:29 AM CDT 08/21/2024 2:27 AM CDT us Jone Vann MD LAB BLOOD ORDERABLES Final R esult Performing Organization Address City/[facility]/ZIP Co de Phone Number [facility] [place] [address] * (ABNORMAL) Comprehensive metabolic panel (08/21/2024 1:29 AM CDT) [facility] Sodium 137 135 - 145 mmol/L Potassium, pl 4.5 3.3 - 4.9 mmol/L [facility] Chloride 99 97 - 110 mmol/L [facility] CO2 31 22 - 32 mmol/L [facility] Anion gap 7 2 - 15 mmol/L [facility] BUN 18 6 - 25 mg/dL [facility] Creatinine 4.68(H) 0.60 - 1.10 mg/dL [facility] Glucose 113 70 - 199 mg/dL [facility] Comment: Interpretive Data Fasting glucose >/= [...] 2022. Calcium 8.1(L) 8.5 - 10.3 mg/dL [facility] Bilirubin, total 0.3 0.1 - 1.2 mg/dL [facility] Protein, pl 7.5 6.5 - 8.5 g/dL [facility] Albumin 1.8(L) 3.5 - 5.0 g/dL [facility] Alk phos 98 40 - 130 Units/L [facility] ALT 6(L) 7 - 45 Units/L [facility] AST 17 10 - 45 Units/L [facility] Blood 08/21/2024 1:29 AM CDT 08/21/2024 2:27 AM CDT us Valerie Cooper MD PhD LAB BLOOD ORDERABLES Final Result Performing Organization Address City/State/[facility] Co de Phone Number [facility] [place] [address] * TRANSTHORACIC ECHO (TTE) LIMITED/FOLLOW UP W LTD DOPPLER/CF WO CONTRAST (08/20/2024 2:12 PM CDT) Anatomical Region Laterality Modality Ultrasound 08/20/2024 1:44 PM CDT Narrative 08/20/2024 2:55 PM CDT [facility] [place] [address] Transthoracic Echocardiographic Report Patient Name: TIFFANY MILLER T : 1995 (28y 11m) Gender: F Study Date: 08/20/2024 01:44:30 PM Ht(Inch): 67 Wt(Lb): 166.89 BSA: 1.89 [employer]en Suit[employer] Shrinker: Guadalupe Mohr RDCS Location: [id number] Order Provider: VALERIE COOPER BMI: 26.14 Ref [...] Procedure Note Morgan Gtz MD - 08/20/2024 [facility] Cardiac [place] [address] Transthoracic Echocardiographic Report Patient Name: TIFFANY MILLER T : 1995 (28y 11m) Gender: F Study Date: 08/20/2024 01:44:30 PM Ht(Inch): 67 Wt(Lb): 166.89 BSA: 1.89 [employer]en Suiting Shrinker: Guadalupe Mohr RDCS Location: [id number] Order Provider:VALERIE COOPER BMI: 26.14 Ref Provider: [...] BLOOD ORDERABLES Final Result Performing Organization Address City/[facility] Co de Phone Number [facility] [place] [address] * (ABNORMAL) T4, free (08/19/2024 5:59 AM CDT) Free T4 0.58(L) 0.90 - 1.70 ng/dL Blood 08/19/2024 5:59 AM CDT 08/19/2024 6:47 AM CDT Valerie Cooper MD PhD LAB BLOOD ORDERABLES Final Result Performing Organization Address [facility] Co de Phone Number [facility] [place] [address] * Cortisol (08/19/2024 5:59 AM CDT) Cortisol [...] BLOOD ORDERABLES Final Result Performing Organization Address City/[facility] Co de Phone Number [facility] [place] [address] * POCT glucose (08/19/2024 12:06 AM CDT) Glucose, POC 127 70 - 199 mg/dL Blood 08/19/2024 12:0 6 AM CDT 08/19/2024 12:06 AM CDT Valerie Cooper MD PhD LAB POCT ORDERABLES - DEVICE Final Result [facility] [place] [address] * (ABNORMAL) POCT glucose (08/18/2024 11:07 PM CDT) Glucose, POC 64(L) 70 - 199 mg/dL Blood 08/18/2024 11:0 7 PM CDT 08/18/2024 11:07 PM CDT Valerie Cooper MD PhD LAB POCT ORDERABLES - DEVICE Final Result Performing Organization Address City/[facility] Co de Phone Number [facility] [place] [address] * (ABNORMAL) eGFR (08/18/2024 8:13 PM CDT) [...] MD PhD LAB BLOOD ORDERABLES Final Result [facility] Department [place] [address] * (ABNORMAL) Differential, auto (08/18/2024 8:13 PM CDT) Neutrophil abs 8.02(H) 1.50 - 6.50 K/cumm Imm gran abs 0.07 0.00 - 0.10 K/cumm [facility] Lymphocyte abs 1.46 0.80 - 3.30 K/cumm [facility] Monocyte abs 0.91(H) 0.20 - 0.80 K/cumm [facility] Eosinophil abs 0.22 0.00 - 0.50 K/cumm [facility] Basophil abs 0.07 0.00 - 0.10 K/cumm [facility] Neutrophil pct 74.5 % [facility] Comment: Interpretive Data Percent cell count reference ranges are not reported, since discordance with absolute values may lead to misinterpretation of CBC data. Current Interpretive Data was last revised on 2017. Imm gran pct 0.7 % [facility] Comment: Interpretive Data Percent cell count reference ranges are not reported, since discordance with absolute values may lead to misinterpretation of CBC data. Current Interpretive Data was last revised on 2017. Lymphocyte pct 13.6 % [facility] Comment: Interpretive Data Percent cell count reference ranges are not reported, since discordance with absolute values may lead to misinterpretation of CBC data. Current Interpretive Data was last revised on 2017. [facility] pct 8.5 % [facility] Comment: Interpretive Data Percent cell count reference ranges are not reported, since discordance with absolute values may lead to misinterpretation of CBC data. Current Interpretive Data was last revised on 2017. Eosinophil pct 2.0 % [facility] Comment: Interpretive Data Percent cell count reference ranges are not reported, since discordance with absolute values may lead to misinterpretation of CBC data. Current Interpretive Data was last revised on 2017. Basophil pct 0.7 % [facility] Comment: Interpretive Data Percent cell count reference ranges are not reported, since discordance with absolute values may lead to misinterpretation of CBC data. Current Interpretive Data was last revised on 2017. Blood 08/18/2024 8:13 PM CDT 08/18/2024 8:49 PM CDT us Valerie Cooper MD PhD LAB BLOOD ORDERABLES Final Result [facility] [place] [address] * (ABNORMAL) CBC with auto differential (08/18/2024 8:13 PM CDT) WBC 10.75(H) 3.80 - 9.90 K/cumm Hgb 7.4(L) 11.9 - 15.5 g/dL [facility] Hct 23.4(L) 35.6 - 45.5 % [facility] Plt 357 150 - 400 K/cumm [facility] MPV 9.6 9.1 - 12.3 fL [facility] RBC 2.66(L) 3.90 - 5.20 M/cumm [facility] MCV 88.0 81.3 - 96.4 fL [facility] MCH 27.8 27.1 - 33.3 pg [facility] MCHC 31.6(L) 32.3 - 35.7 g/dL [facility] RDW CV 16.1(H) 11.1 - 14.9 % [facility] RDW SD 51.3(H) 35.7 - 48.1 fL [facility] NRBC abs 0.00 0.00 - 0.01 K/cumm [facility] Blood 08/18/2024 8:13 PM CDT 08/18/2024 8:49 PM CDT us Valerie Cooper MD PhD LAB BLOOD ORDERABLES Final Result [facility] [place] [address] * (ABNORMAL) Erythrocyte sedimentation rate (08/18/2024 8:13 PM CDT) [facility] Erythrocyte sedimentation rate 140(H) 1 - 20 mm/hr Blood 08/18/2024 8:13 PM CDT 08/18/2024 8:49 PM CDT Valerie Cooper MD PhD LAB BLOOD ORDERABLES Final Result [facility] [place] [address] * (ABNORMAL) Reticulocyte Count (08/18/2024 8:13 PM CDT) [facility] Retics, absolute 42 20 - 87 K/cumm Retics 1.6 0.4 - 2.9 % [facility] Reticulocyte Hgb 25.2(L) 30.5 - 38.0 pg [facility] Blood 08/18/2024 8:13 PM CDT 08/18/2024 8:49 PM CDT Valerie Cooper MD PhD LAB BLOOD ORDERABLES Final Result Performing Organization Address City/[facility]/ZIP Co de Phone Number [facility] [place] [address] * (ABNORMAL) CRP (acute phase) (08/18/2024 8:13 PM CDT) [facility] CRP 268.2(H) <=10.0 mg/L Blood 08/18/2024 8:13 PM CDT 08/18/2024 8:49 PM CDT Valerie Cooper MD PhD LAB BLOOD ORDERABLES Edited Result - Final [facility] [place] [address] * Magnesium (08/18/2024 8:13 PM CDT) [facility] Magnesium 2.0 1.4 - 2.5 mg/dL Blood 08/18/2024 8:13 PM CDT 08/18/2024 8:49 PM CDT us Valerie Cooper MD PhD LAB BLOOD ORDERABLES Final Result [facility] [place] [address] * Creatine kinase (CK), total (08/18/2024 8:13 PM CDT) [facility] CK 69 30 - 200 Units/L Comment:Reviewed Blood 08/18/2024 8:13 PM CDT 08/18/2024 8:49 PM CDT us Royal Weiss MD LAB BLOOD ORDERABLES Florinda l Result Performing Organization Address City/[facility]/ZIP Co de Phone Number [facility] [place] [address] * (ABNORMAL) Comprehensive metabolic panel (08/18/2024 8:13 PM CDT) [facility] Sodium 133(L) 135 - 145 mmol/L Potassium, pl 4.6 3.3 - 4.9 mmol/L [facility] Chloride 97 97 - 110 mmol/L [facility] CO2 29 22 - 32 mmol/L [facility] Anion gap 7 2 - 15 mmol/L [facility] BUN 23 6 - 25 mg/dL [facility] Creatinine 5.22(H) 0.60 - 1.10 mg/dL [facility] Glucose 57(L) 70 - 199 mg/dL [facility] Comment: Interpretive Data Fasting glucose >/= [...] 2022. Calcium 8.4(L) 8.5 - 10.3 mg/dL [facility] Bilirubin, total 0.4 0.1 - 1.2 mg/dL [facility] Protein, pl 7.6 6.5 - 8.5 g/dL [facility] Albumin 1.7(L) 3.5 - 5.0 g/dL [facility] Alk phos 98 40 - 130 Units/L [facility] ALT 6(L) 7 - 45 Units/L [facility] AST 23 10 - 45 Units/L [facility] Blood 08/18/2024 8:13 PM CDT 08/18/2024 8:49 PM CDT us Valerie Cooper MD PhD LAB BLOOD ORDERABLES Final Result [facility] [place] [address] * CT Thoracic and Lumbar Spine WO [...] MD PhD LAB BLOOD ORDERABLES Final Result [facility] [place] [address] * (ABNORMAL) Differential, auto (08/17/2024 4:44 PM CDT) Neutrophil abs 8.66(H) 1.50 - 6.50 K/cumm Imm gran abs 0.10 0.00 - 0.10 K/cumm [facility] Lymphocyte abs 1.36 0.80 - 3.30 K/cumm [facility] Monocyte abs 0.77 0.20 - 0.80 K/cumm [facility] Eosinophil abs 0.14 0.00 - 0.50 K/cumm [facility] Basophil abs 0.07 0.00 - 0.10 K/cumm [facility] Neutrophil pct 78.0 % [facility] Comment: Interpretive Data Percent cell count reference ranges are not reported, since discordance with absolute values may lead to misinterpretation of CBC data. Current Interpretive Data was last revised on 2017. Imm gran pct 0.9 % [facility] Comment: Interpretive Data Percent cell count reference ranges are not reported, since discordance with absolute values may lead to misinterpretation of CBC data. Current Interpretive Data was last revised on 2017. Lymphocyte pct 12.3 % [facility] Comment: Interpretive Data Percent cell count reference ranges are not reported, since discordance with absolute values may lead to misinterpretation of CBC data. Current Interpretive Data was last revised on 2017. Monocyte pct 6.9 % [facility] Comment: Interpretive Data Percent cell count reference ranges are not reported, since discordance with absolute values may lead to misinterpretation of CBC data. Current Interpretive Data was last revised on 2017. Eosinophil pct 1.3 % [facility] Comment: Interpretive Data Percent cell count reference ranges are not reported, since discordance with absolute values may lead to misinterpretation of CBC data. Current Interpretive Data was last revised on 2017. Basophil pct 0.6 % [facility] Comment: Interpretive Data Percent cell count reference ranges are not reported, since discordance with absolute values may lead to misinterpretation of CBC data. Current Interpretive Data was last revised on 2017. Blood 08/17/2024 4:44 PM CDT 08/17/2024 5:04 PM CDT us Valerie Cooper MD PhD LAB BLOOD ORDERABLES Final Result [facility] [place] [address] * (ABNORMAL) CBC with auto differential (08/17/2024 4:44 PM CDT) WBC 11.10(H) 3.80 - 9.90 K/cumm Hgb 7.9(L) 11.9 - 15.5 g/dL [facility] Hct 24.3(L) 35.6 - 45.5 % [facility] Plt 367 150 - 400 K/cumm [facility] MPV 9.5 9.1 - 12.3 fL [facility] RBC 2.87(L) 3.90 - 5.20 M/cumm [facility] MCV 84.7 81.3 - 96.4 fL [facility] MCH 27.5 27.1 - 33.3 pg [facility] MCHC 32.5 32.3 - 35.7 g/dL [facility] RDW CV 16.2(H) 11.1 - 14.9 % [facility] RDW SD 50.2(H) 35.7 - 48.1 fL [facility] NRBC abs 0.00 0.00 - 0.01 K/cumm [facility] Blood 08/17/2024 4:44 PM CDT 08/17/2024 5:04 PM CDT us Valerie Cooper MD PhD LAB BLOOD ORDERABLES Final Result [facility] [place] [address] * Hepatitis B core antibody, total Blood (08/17/2024 4:44 PM CDT) Pathologist [facility] [place] Hep B core IgG/IgM Nonreactive Nonreactive Blood 08/17/2024 4:44 PM CDT 08/17/2024 5:06 PM CDT us Valerie Cooper MD PhD LAB MICROBIOLOGY - G ENERAL ORDERABLES Final Result Performing Organization Address [facility] de Phone Number [facility] [place] [address] * Hepatitis B surface antibody (immune status) Blood (08/17/2024 4:44 PM CDT) Pathologist [facility] [place] HBsAb (immune status) Reactive Comment:This result is consi stent with immunity to Hepatitis B Virus when used in the setting of routine screening. Current interpretive data was last revised on 21 HBsAb (immune status) index 117.0 mIUnits/m L [facility] Blood 08/17/2024 4:44 PM CDT 08/17/2024 5:06 PM CDT Valerie Cooper MD PhD LAB MICROBIOLOGY - G ENERAL ORDERABLES Final Result Performing Organization Address [facility] Co de Phone Number [facility] [place] [address] * (ABNORMAL) Reticulocyte Count (08/17/2024 4:44 PM CDT) [facility] Retics, absolute 38 20 - 87 K/cumm Retics 1.4 0.4 - 2.9 % [facility] Reticulocyte Hgb 25.0(L) 30.5 - 38.0 pg [facility] Blood 08/17/2024 4:44 PM CDT 08/17/2024 5:04 PM CDT us Valerie Cooper MD PhD LAB BLOOD ORDERABLES Final Result [facility] [place] [address] * Type and screen (08/17/2024 4:44 PM CDT) [facility] ABO Rh A Positive Marybeth, indirect Negative [facility] Blood 08/17/2024 4:44 PM CDT 08/17/2024 4:57 PM CDT Narrative [facility] - 08/17/2024 6:00 PM CDT Has the patient had Daratumumab or Isatuximab in the past 6 months?->Unknown us Royal Weiss MD LAB BLOOD BANK TEST ORDER MARTINEZ Final Result [facility] [place] [address] * (ABNORMAL) Comprehensive metabolic panel (08/17/2024 4:44 PM CDT) [facility] Sodium 133(L) 135 - 145 mmol/L Potassium, pl 4.2 3.3 - 4.9 mmol/L [facility] Chloride 96(L) 97 - 110 mmol/L [facility] CO2 30 22 - 32 mmol/L [facility] Anion gap 7 2 - 15 mmol/L [facility] BUN 22 6 - 25 mg/dL [facility] Creatinine 3.80(H) 0.60 - 1.10 mg/dL [facility] Glucose 71 70 - 199 mg/dL [facility] Comment: Interpretive Data Fasting glucose >/= [...] 2022. Calcium 8.0(L) 8.5 - 10.3 mg/dL [facility] Bilirubin, total 0.4 0.1 - 1.2 mg/dL [facility] Protein, pl 7.7 6.5 - 8.5 g/dL [facility] Albumin 1.9(L) 3.5 - 5.0 g/dL [facility] Alk phos 102 40 - 130 Units/L [facility] ALT 5(L) 7 - 45 Units/L [facility] AST 24 10 - 45 Units/L [facility] Blood 08/17/2024 4:44 PM CDT 08/17/2024 5:04 PM CDT us Valerie Cooper MD PhD LAB BLOOD ORDERABLES Final Result [facility] Department [place] [address] * Blood culture Blood (08/17/2024 3:03 PM CDT) Report Final Report: No growth Blood 08/17/2024 3:03 PM CDT 08/17/2024 3:47 PM CDT Narrative [facility] - 08/21/2024 4:00 PM CDT Draw [...] performance characteristics have been verified by the [facility] Microbiology Laboratory. For questions about this culture, contact the Microbiology Laboratory at [phone]. Interpretive data was last revised on 24. us Valerie Cooper MD PhD LAB MICROBIOLOGY - G ENERAL ORDERABLES Final Result [facility] Department [place] [address] * Infection Prevention Helen auris PCR, surveillance Axilla/Groin (08/17/2024 11:33 AM CDT) Helen auris DNA Invalid Not Detected [facility] Comment: Unable to analyze due to the possible presence of inhibitory substances. Recommend submission of a second separately collected sample if clinically indicated. Interpretive Data Testing performed by [facility] Molecular Infectious Disease Laboratory using the Noa pramod 6800 Helen auris assay. This assay detects DNA from Helen auris using Real-Time PCR. This assay is laboratory developed and is not cleared by the [place] Food and Drug Administration. The performance characteristics have been verified by the [facility] Molecular Infectious Disease Laboratory. Axilla/Groin 08/17/2024 11:3 3 AM CDT 08/17/2024 12:58 PM CDT us Umang Phillips MD LAB MICROBIOLOGY - GENERAL ORDER MARTINEZ Final Result [facility] Department [place] [address] [facility] * XR Chest 1 View (08/17/2024 [...] MD PhD LAB BLOOD ORDERABLES Final Result [facility] Department [place] [address] * (ABNORMAL) Differential, auto (08/16/2024 8:17 PM CDT) Neutrophil abs 6.45 1.50 - 6.50 K/cumm Imm gran abs 0.12(H) 0.00 - 0.10 K/cumm [facility] Lymphocyte abs 1.62 0.80 - 3.30 K/cumm [facility] Monocyte abs 0.84(H) 0.20 - 0.80 K/cumm [facility] Eosinophil abs 0.19 0.00 - 0.50 K/cumm [facility] Basophil abs 0.07 0.00 - 0.10 K/cumm [facility] Neutrophil pct 69.5 % [facility] Comment: Interpretive Data Percent cell count reference ranges are not reported, since discordance with absolute values may lead to misinterpretation of CBC data. Current Interpretive Data was last revised on 2017. Imm gran pct 1.3 % [facility] Comment: Interpretive Data Percent cell count reference ranges are not reported, since discordance with absolute values may lead to misinterpretation of CBC data. Current Interpretive Data was last revised on 2017. Lymphocyte pct 17.4 % [facility] Comment: Interpretive Data Percent cell count reference ranges are not reported, since discordance with absolute values may lead to misinterpretation of CBC data. Current Interpretive Data was last revised on 2017. Monocyte pct 9.0 % [facility] Comment: Interpretive Data Percent cell count reference ranges are not reported, since discordance with absolute values may lead to misinterpretation of CBC data. Current Interpretive Data was last revised on 2017. Eosinophil pct 2.0 % [facility] Comment: Interpretive Data Percent cell count reference ranges are not reported, since discordance with absolute values may lead to misinterpretation of CBC data. Current Interpretive Data was last revised on 2017. Basophil pct 0.8 % [facility] Comment: Interpretive Data Percent cell count reference ranges are not reported, since discordance with absolute values may lead to misinterpretation of CBC data. Current Interpretive Data was last revised on 2017. Blood 08/16/2024 8:17 PM CDT 08/16/2024 8:51 PM CDT us Valerie Cooper MD PhD LAB BLOOD ORDERABLES Final Result [facility] Department [place] [address] * (ABNORMAL) CBC with auto differential (08/16/2024 8:17 PM CDT) Pathologist [facility] [place] WBC 9.29 3.80 - 9.90 K/cumm Hgb 7.4(L) 11.9 - 15.5 g/dL [facility] Hct 23.3(L) 35.6 - 45.5 % [facility] Plt 321 150 - 400 K/cumm [facility] MPV 10.0 9.1 - 12.3 fL [facility] RBC 2.69(L) 3.90 - 5.20 M/cumm [facility] MCV 86.6 81.3 - 96.4 fL [facility] MCH 27.5 27.1 - 33.3 pg [facility] MCHC 31.8(L) 32.3 - 35.7 g/dL [facility] RDW CV 16.7(H) 11.1 - 14.9 % [facility] RDW SD 52.4(H) 35.7 - 48.1 fL [facility] NRBC abs 0.00 0.00 - 0.01 K/cumm [facility] Blood 08/16/2024 8:17 PM CDT 08/16/2024 8:51 PM CDT us Valerie Cooper MD PhD LAB BLOOD ORDERABLES Final Result Performing Organization Address City/[facility] Co de Phone Number [facility] Department [place] [address] * (ABNORMAL) Reticulocyte Count (08/16/2024 8:17 PM CDT) Pathologist [facility] [place] Retics, absolute 46 20 - 87 K/cumm Retics 1.7 0.4 - 2.9 % [facility] Reticulocyte Hgb 24.7(L) 30.5 - 38.0 pg [facility] Blood 08/16/2024 8:17 PM CDT 08/16/2024 8:51 PM CDT us Valerie Cooper MD PhD LAB BLOOD ORDERABLES Final Result [facility] Department [place] [address] * (ABNORMAL) Comprehensive metabolic panel (08/16/2024 8:17 PM CDT) Sodium 137 135 - 145 mmol/L Potassium, pl 5.1(H) 3.3 - 4.9 mmol/L [facility] Chloride 98 97 - 110 mmol/L [facility] CO2 29 22 - 32 mmol/L [facility] Anion gap 10 2 - 15 mmol/L [facility] BUN 39(H) 6 - 25 mg/dL [facility] Creatinine 5.74(H) 0.60 - 1.10 mg/dL [facility] Glucose 72 70 - 199 mg/dL [facility] Comment: Interpretive Data Fasting glucose >/= [...] 2022. Calcium 8.1(L) 8.5 - 10.3 mg/dL [facility] Bilirubin, total 0.4 0.1 - 1.2 mg/dL [facility] Protein, pl 7.3 6.5 - 8.5 g/dL [facility] Albumin 1.8(L) 3.5 - 5.0 g/dL [facility] Alk phos 112 40 - 130 Units/L [facility] ALT 6(L) 7 - 45 Units/L [facility] AST 21 10 - 45 Units/L [facility] Blood 08/16/2024 8:17 PM CDT 08/16/2024 8:51 PM CDT Valerie Cooper MD PhD LAB BLOOD ORDERABLES Final Result Performing Organization Address [facility]/State/ZIP Co de Phone [place] [facility] [place] [address] * Transfuse RBC (08/16/2024 3:23 PM CDT) Blood Valerie Cooper MD PhD BLOOD TRANSFUSION OR DERABLES Final Result Performing Organization Address [facility] Co de Phone [place] [address] * Prepare RBC: 1 Units (08/16/2024 8:02 AM CDT) Pathologist [facility] [place] Product code [id number] Unit Number [id number]- M [facility] Product Blood Type APOS [facility] Dispense Status PRESUMED TRANSFUSED [facility] Blood 08/16/2024 8:02 AM CDT 08/16/2024 8:02 AM CDT Narrative [facility] - 08/17/2024 12:57 AM CDT Are special requirements needed? (All products are leukoreduced and CMV- safe)- >No Date required:-[id number] LRRBC # of [id number] Reasons:-Hgb <7 g/dL} us Valerie Cooper MD PhD BLOOD BANK PRODUCT O RDERABLES Final Result Performing Organization Address [facility] Co de Phone Number [facility] [place] [address] * (ABNORMAL) eGFR (08/15/2024 9:22 PM CDT) [...] MD PhD LAB BLOOD ORDERABLES Final Result [facility] Department [place] [address] * (ABNORMAL) Differential, auto (08/15/2024 9:22 PM CDT) Pathologist [facility] [place] Neutrophil abs 6.15 1.50 - 6.50 K/cumm Imm gran abs 0.11(H) 0.00 - 0.10 K/cumm [facility] Lymphocyte abs 1.37 0.80 - 3.30 K/cumm [facility] Monocyte abs 0.63 0.20 - 0.80 K/cumm [facility] Eosinophil abs 0.14 0.00 - 0.50 K/cumm [facility] Basophil abs 0.04 0.00 - 0.10 K/cumm [facility] Neutrophil pct 72.8 % [facility] Comment: Interpretive Data Percent cell count reference ranges are not reported, since discordance with absolute values may lead to misinterpretation of CBC data. Current Interpretive Data was last revised on 2017. Imm gran pct 1.3 % [facility] Comment: Interpretive Data Percent cell count reference ranges are not reported, since discordance with absolute values may lead to misinterpretation of CBC data. Current Interpretive Data was last revised on 2017. Lymphocyte pct 16.2 % [facility] [facility] Comment: Interpretive Data Percent cell count reference ranges are not reported, since discordance with absolute values may lead to misinterpretation of CBC data. Current Interpretive Data was last revised on 2017. Monocyte pct 7.5 % [facility] Comment: Interpretive Data Percent cell count reference ranges are not reported, since discordance with absolute values may lead to misinterpretation of CBC data. Current Interpretive Data was last revised on 2017. Eosinophil pct 1.7 % [facility] Comment: Interpretive Data Percent cell count reference ranges are not reported, since discordance with absolute values may lead to misinterpretation of CBC data. Current Interpretive Data was last revised on 2017. Basophil pct 0.5 % [facility] Comment: Interpretive Data Percent cell count reference ranges are not reported, since discordance with absolute values may lead to misinterpretation of CBC data. Current Interpretive Data was last revised on 2017. Blood 08/15/2024 9:22 PM CDT 08/15/2024 9:52 PM CDT us Valerie Cooper MD PhD LAB BLOOD ORDERABLES Final Result [facility] Department [place] [address] * (ABNORMAL) CBC with auto differential (08/15/2024 9:22 PM CDT) WBC 8.44 3.80 - 9.90 K/cumm Hgb 6.8(L) 11.9 - 15.5 g/dL [facility] Hct 21.3(L) 35.6 - 45.5 % [facility] Plt 270 150 - 400 K/cumm [facility] MPV 9.9 9.1 - 12.3 fL [facility] RBC 2.48(L) 3.90 - 5.20 M/cumm [facility] MCV 85.9 81.3 - 96.4 fL [facility] MCH 27.4 27.1 - 33.3 pg [facility] MCHC 31.9(L) 32.3 - 35.7 g/dL [facility] RDW CV 17.2(H) 11.1 - 14.9 % [facility] RDW SD 54.1(H) 35.7 - 48.1 fL [facility] NRBC abs 0.00 0.00 - 0.01 K/cumm [facility] Blood 08/15/2024 9:22 PM CDT 08/15/2024 9:52 PM CDT Valerie Cooper MD PhD LAB BLOOD ORDERABLES Final Result Performing Organization Address [facility] de Phone Number [facility] Department [place] [address] * (ABNORMAL) Reticulocyte Count (08/15/2024 9:22 PM CDT) [facility] Retics, absolute 56 20 - 87 K/cumm Retics 2.3 0.4 - 2.9 % [facility] Reticulocyte Hgb 22.8(L) 30.5 - 38.0 pg [facility] Blood 08/15/2024 9:22 PM CDT 08/15/2024 9:52 PM CDT Valerie Cooper MD PhD LAB BLOOD ORDERABLES Final Result Performing Organization Address [facility] de Phone Number [facility] [place] [address] * (ABNORMAL) Comprehensive metabolic panel (08/15/2024 9:22 PM CDT) [facility] Sodium 133(L) 135 - 145 mmol/L Potassium, pl 4.6 3.3 - 4.9 mmol/L [facility] Chloride 96(L) 97 - 110 mmol/L [facility] CO2 32 22 - 32 mmol/L [facility] Anion gap 5 2 - 15 mmol/L [facility] BUN 28(H) 6 - 25 mg/dL [facility] Creatinine 4.40(H) 0.60 - 1.10 mg/dL [facility] Glucose 73 70 - 199 mg/dL [facility] Comment: Interpretive Data Fasting glucose >/= [...] 2022. Calcium 8.0(L) 8.5 - 10.3 mg/dL [facility] Bilirubin, total 0.3 0.1 - 1.2 mg/dL [facility] Protein, pl 7.3 6.5 - 8.5 g/dL [facility] Albumin 1.8(L) 3.5 - 5.0 g/dL [facility] Alk phos 91 40 - 130 Units/L [facility] ALT 6(L) 7 - 45 Units/L [facility] AST 19 10 - 45 Units/L [facility] Blood 08/15/2024 9:22 PM CDT 08/15/2024 9:51 PM CDT us Valerie Cooper MD PhD LAB BLOOD ORDERABLES Final Result Performing Organization Address City/[facility]/ZIP Co de Phone Number [facility] [place] [address] * POCT glucose (08/15/2024 9:20 PM CDT) [facility] Signature Glucose, POC 78 70 - 199 mg/dL Blood 08/15/2024 9:20 PM CDT 08/15/2024 9:20 PM CDT Valerie Cooper MD PhD LAB POCT ORDERABLES - DEVICE Final Result Performing Organization Address City/[facility]/ZIP Co de Phone Number [facility] [place] [address] * POCT glucose (08/15/2024 5:54 PM CDT) Glucose, POC 72 70 - 199 mg/dL Blood 08/15/2024 5:54 PM CDT 08/15/2024 5:54 PM CDT Valerie Cooper MD PhD LAB POCT ORDERABLES - DEVICE Final Result Performing Organization Address City/[facility] Co de Phone Number [facility] [place] [address] * POCT glucose (08/15/2024 1:42 PM CDT) Glucose, POC 106 70 - 199 mg/dL Blood 08/15/2024 1:42 PM CDT 08/15/2024 1:42 PM CDT Valerie Cooper MD PhD LAB POCT ORDERABLES - DEVICE Final Result Performing Organization Address [facility] Co de Phone Number [facility] [place] [address] * POCT glucose (08/15/2024 1:20 PM CDT) Glucose, POC 86 70 - 199 mg/dL Blood 08/15/2024 1:20 PM CDT 08/15/2024 1:20 PM CDT Valerie Cooper MD PhD LAB POCT ORDERABLES - DEVICE Final Result Performing Organization Address City/[facility] Co de Phone Number [facility] [place] [address] * (ABNORMAL) POCT glucose (08/15/2024 1:02 PM CDT) Glucose, POC 64(L) 70 - 199 mg/dL Blood 08/15/2024 1:02 PM CDT 08/15/2024 1:02 PM CDT us Valerie Cooper MD PhD LAB POCT ORDERABLES - DEVICE Final Result Performing Organization Address [facility] Co de Phone Number [facility] [place] [address] * (ABNORMAL) POCT glucose (08/15/2024 12:50 PM CDT) Glucose, POC 55(L) 70 - 199 mg/dL Blood 08/15/2024 12:5 0 PM CDT 08/15/2024 12:50 PM CDT us Valerie Cooper MD PhD LAB POCT ORDERABLES - DEVICE Final Result Performing Organization Address [facility] Co de Phone Number [facility] [place] [address] * (ABNORMAL) POCT glucose (08/15/2024 12:41 PM CDT) Glucose, POC 56(L) 70 - 199 mg/dL Blood 08/15/2024 12:4 1 PM CDT 08/15/2024 12:41 PM CDT us Valerie Cooper MD PhD LAB POCT ORDERABLES - DEVICE Final Result Performing Organization Address [facility] [place] [address] * POCT glucose (08/15/2024 11:16 AM CDT) Glucose, POC 77 70 - 199 mg/dL Blood 08/15/2024 11:1 6 AM CDT 08/15/2024 11:16 AM CDT us Valerie Cooper MD PhD LAB POCT ORDERABLES - DEVICE Final Result [facility] Department [place] [address] * Blood culture Blood (08/15/2024 8:10 AM CDT) Report Final Report: No growth Blood 08/15/2024 8:10 AM CDT 08/15/2024 8:30 AM CDT Narrative ARAMIS PRUITT - 08/19/2024 12:00 PM CDT Collection->Peripheral 1. [...] performance characteristics have been verified by the [facility] Microbiology Laboratory. For questions about this culture, contact the Microbiology Laboratory at [phone]. Interpretive data was last revised on 24. Hina Poon MD LAB MICROBIOLOGY - GENERAL O RDERABLES Final Result Performing Organization Address City/[facility]/ZIP Co de Phone Number [facility] Department [place] [address] * POCT glucose (08/15/2024 6:03 AM CDT) Glucose, POC 138 70 - 199 mg/dL Blood 08/15/2024 6:03 AM CDT 08/15/2024 6:03 AM CDT Valerie Cooper MD PhD LAB POCT ORDERABLES - DEVICE Final Result [facility] [place] [address] * (ABNORMAL) Potassium (08/15/2024 5:02 AM CDT) Potassium, pl 6.0(H) 3.3 - 4.9 mmol/L Blood 08/15/2024 5:02 AM CDT 08/15/2024 5:20 AM CDT Narrative [facility] - 08/15/2024 6:04 AM CDT Provider to discontinue after two normal results. Valerie Cooper MD PhD LAB BLOOD ORDERABLES Final Result [facility] [place] [address] * POCT glucose (08/15/2024 5:01 AM CDT) Glucose, POC 73 70 - 199 mg/dL Blood 08/15/2024 5:01 AM CDT 08/15/2024 5:01 AM CDT Valerie Cooper MD PhD LAB POCT ORDERABLES - DEVICE Final Result [facility] [place] [address] * POCT glucose (08/15/2024 2:51 AM CDT) Glucose, POC 123 70 - 199 mg/dL Blood 08/15/2024 2:51 AM CDT 08/15/2024 2:51 AM CDT Valerie Cooper MD PhD LAB POCT ORDERABLES - DEVICE Final Result Performing Organization Address [facility] de Phone Number [facility] [place] [address] * POCT glucose (08/15/2024 1:42 AM CDT) Glucose, POC 86 70 - 199 mg/dL Blood 08/15/2024 1:42 AM CDT 08/15/2024 1:42 AM CDT Valerie Cooper MD PhD LAB POCT ORDERABLES - DEVICE Final Result Performing Organization Address [facility] Phone Number [facility] [place] [address] * POCT glucose (08/15/2024 12:49 AM CDT) Glucose, POC 143 70 - 199 mg/dL Blood 08/15/2024 12:4 9 AM CDT 08/15/2024 12:49 AM CDT Valerie Cooper MD PhD LAB POCT ORDERABLES - DEVICE Final Result Performing Organization Address [facility] de Phone Number [facility] [place] [address] * POCT glucose (08/14/2024 11:45 PM CDT) Glucose, POC 162 70 - 199 mg/dL Blood 08/14/2024 11:4 5 PM CDT 08/14/2024 11:45 PM CDT Valerie Cooper MD PhD LAB POCT ORDERABLES - DEVICE Final Result Performing Organization Address [facility]/ZIP Co de Phone Number [facility] Department [place] [address] * POCT glucose (08/14/2024 10:32 PM CDT) Pathologist [facility] [place] Glucose, POC 103 70 - 199 mg/dL Blood 08/14/2024 10:3 2 PM CDT 08/14/2024 10:32 PM CDT us Valerie Cooper MD PhD LAB POCT ORDERABLES - DEVICE Final Result Performing Organization Address [facility] Co de Phone Number [facility] [place] [address] * (ABNORMAL) eGFR (08/14/2024 8:44 PM CDT) [facility] eGFR 8(L) >=60 mL/min/1. 73 m2 [...] BLOOD ORDERABLES Final Result Performing Organization Address City/[facility]/ZIP Co de Phone Number [facility] Department [place] [address] * (ABNORMAL) Differential, auto (08/14/2024 8:44 PM CDT) Neutrophil abs 9.34(H) 1.50 - 6.50 K/cumm Imm gran abs 0.16(H) 0.00 - 0.10 K/cumm [facility] Lymphocyte abs 1.58 0.80 - 3.30 K/cumm [facility] Monocyte abs 0.78 0.20 - 0.80 K/cumm [facility] Eosinophil abs 0.11 0.00 - 0.50 K/cumm [facility] Basophil abs 0.06 0.00 - 0.10 K/cumm [facility] Neutrophil pct 77.7 % [facility] Comment: Interpretive Data Percent cell count reference ranges are not reported, since discordance with absolute values may lead to misinterpretation of CBC data. Current Interpretive Data was last revised on 2017. Imm gran pct 1.3 % [facility] Comment: Interpretive Data Percent cell count reference ranges are not reported, since discordance with absolute values may lead to misinterpretation of CBC data. Current Interpretive Data was last revised on 2017. Lymphocyte pct 13.1 % [facility] Comment: Interpretive Data Percent cell count reference ranges are not reported, since discordance with absolute values may lead to misinterpretation of CBC data. Current Interpretive Data was last revised on 2017. Monocyte pct 6.5 % [facility] Comment: Interpretive Data Percent cell count reference ranges are not reported, since discordance with absolute values may lead to misinterpretation of CBC data. Current Interpretive Data was last revised on 2017. Eosinophil pct 0.9 % [facility] Comment: Interpretive Data Percent cell count reference ranges are not reported, since discordance with absolute values may lead to misinterpretation of CBC data. Current Interpretive Data was last revised on 2017. Basophil pct 0.5 % [facility] Comment: Interpretive Data Percent cell count reference ranges are not reported, since discordance with absolute values may lead to misinterpretation of CBC data. Current Interpretive Data was last revised on 2017. Blood 08/14/2024 8:44 PM CDT 08/14/2024 9:30 PM CDT Valerie Cooper MD PhD LAB BLOOD ORDERABLES Final Result Performing Organization Address City/[facility]/ZIP Co de Phone Number [facility] Department [place] [address] * Critical Result Callback Chemistry (08/14/2024 8:44 PM CDT) Date Notified [id number] Time Notified 2205 [facility] TestName Potassium Plas [facility] Called/Read Back Aniket SELF [facility] Credentials RN ARAMIS [facility] Called By SB [facility] Blood 08/14/2024 8:44 PM CDT 08/14/2024 9:32 PM CDT us Valerie Cooper MD PhD LAB BLOOD ORDERABLES Final Result Performing Organization Address [facility]/ZIP Co de Phone Number [facility] Department [place] [address] * (ABNORMAL) Iron profile w/ IBC (08/14/2024 8:44 PM CDT) [facility] Iron 12(L) 35 - 145 mcg/dL TIBC 127(L) 250 - 400 mcg/dL [facility] Transferrin saturation 9(L) 20 - 50 % [facility] Blood 08/14/2024 8:44 PM CDT 08/14/2024 9:32 PM CDT Valerie Cooper MD PhD LAB BLOOD ORDERABLES Final Result Performing Organization Address City/[facility]/ZIP Co de Phone Number [facility] [place] [address] * (ABNORMAL) CBC with auto differential (08/14/2024 8:44 PM CDT) WBC 12.03(H) 3.80 - 9.90 K/cumm Hgb 7.3(L) 11.9 - 15.5 g/dL [facility] Hct 22.3(L) 35.6 - 45.5 % [facility] Plt 276 150 - 400 K/cumm [facility] MPV 9.9 9.1 - 12.3 fL [facility] RBC 2.59(L) 3.90 - 5.20 M/cumm [facility] MCV 86.1 81.3 - 96.4 fL [facility] MCH 28.2 27.1 - 33.3 pg [facility] MCHC 32.7 32.3 - 35.7 g/dL [facility] RDW CV 17.6(H) 11.1 - 14.9 % [facility] RDW SD 55.2(H) 35.7 - 48.1 fL [facility] NRBC abs 0.00 0.00 - 0.01 K/cumm [facility] Blood 08/14/2024 8:44 PM CDT 08/14/2024 9:30 PM CDT us Valerie Cooper MD PhD LAB BLOOD ORDERABLES Final Result Performing Organization Address City/[facility] Co de Phone Number [facility] Department [place] [address] * (ABNORMAL) Reticulocyte Count (08/14/2024 8:44 PM CDT) [facility] Retics, absolute 63 20 - 87 K/cumm Retics 2.4 0.4 - 2.9 % [facility] Reticulocyte Hgb 24.0(L) 30.5 - 38.0 pg [facility] Blood 08/14/2024 8:44 PM CDT 08/14/2024 9:30 PM CDT us Valerie Cooper MD PhD LAB BLOOD ORDERABLES Final Result Performing Organization Address City/[facility]/ZIP Co de [facility] [place] [address] * Type and screen (08/14/2024 8:44 PM CDT) [facility] ABO Rh A Positive Marybeth, indirect Negative [facility] Blood 08/14/2024 8:44 PM CDT 08/14/2024 10:10 PM CDT Narrative [facility] - 08/14/2024 11:14 PM CDT Has the patient had Daratumumab or Isatuximab in the past 6 months?->Unknown Royal Weiss MD LAB BLOOD BANK TEST ORDER MARTINEZ Final Result [facility] [place] [address] * (ABNORMAL) Comprehensive metabolic panel (08/14/2024 8:44 PM CDT) [facility] Sodium 132(L) 135 - 145 mmol/L Potassium, pl 6.4(C) 3.3 - 4.9 mmol/L [facility] Chloride 96(L) 97 - 110 mmol/L [facility] CO2 25 22 - 32 mmol/L [facility] Anion gap 11 2 - 15 mmol/L [facility] BUN 50(H) 6 - 25 mg/dL [facility] Creatinine 6.62(H) 0.60 - 1.10 mg/dL [facility] Glucose 97 70 - 199 mg/dL [facility] Comment: Interpretive Data Fasting glucose >/= [...] 2022. Calcium 7.8(L) 8.5 - 10.3 mg/dL [facility] Bilirubin, total 0.4 0.1 - 1.2 mg/dL [facility] Protein, pl 7.7 6.5 - 8.5 g/dL [facility] Albumin 1.8(L) 3.5 - 5.0 g/dL [facility] Alk phos 97 40 - 130 Units/L [facility] ALT 5(L) 7 - 45 Units/L [facility] AST 18 10 - 45 Units/L [facility] Blood 08/14/2024 8:44 PM CDT 08/14/2024 9:32 PM CDT us Valerie Cooper MD PhD LAB BLOOD ORDERABLES Final Result Performing Organization Address [facility]/ZIP Co de Phone Number [facility] Department [place] [address] * Transfuse RBC (08/14/2024 4:44 AM CDT) Blood us Royal Gillespie MD BLOOD TRANSFUSION ORDERAB LES Final Result Performing Organization Address [facility]/ZIP Co de Phone Number [facility] Department [place] [address] * Prepare RBC: 1 Units (08/13/2024 11:44 PM CDT) Product code [id number] Unit Number [id number] [facility] Product Blood Type APOS [facility] Dispense Status PRESUMED TRANSFUSED [facility] Blood 08/13/2024 11:4 4 PM CDT 08/13/2024 11:44 PM CDT Narrative [facility] - 08/14/2024 4:00 PM CDT Are special requirements needed? (All products are leukoreduced and CMV- safe)- >No Date required:-[id number] LRRBC # of [id number] Reasons:-Hgb <7 g/dL} us Royal Gillespie MD BLOOD BANK PRODUCT ORDERA BLES Final Result Performing Organization Address [facility] Co de Phone Number [facility] [place] [address] * (ABNORMAL) eGFR (08/13/2024 10:34 PM CDT) [facility] eGFR 11(L) >=60 mL/min/1. 73 m2 Comment: [...] ORDERABLES Florinda l Result Performing Organization Address [facility] Co de Phone Number [facility] Department [place] [address] * (ABNORMAL) Differential, auto (08/13/2024 10:34 PM CDT) [facility] Neutrophil abs 9.53(H) 1.50 - 6.50 K/cumm Imm gran abs 0.22(H) 0.00 - 0.10 K/cumm [facility] Lymphocyte abs 1.86 0.80 - 3.30 K/cumm [facility] Monocyte abs 0.79 0.20 - 0.80 K/cumm [facility] Eosinophil abs 0.11 0.00 - 0.50 K/cumm [facility] Basophil abs 0.06 0.00 - 0.10 K/cumm [facility] Neutrophil pct 75.7 % [facility] Comment: Interpretive Data Percent cell count reference ranges are not reported, since discordance with absolute values may lead to misinterpretation of CBC data. Current Interpretive Data was last revised on 2017. Imm gran pct 1.8 % [facility] Comment: Interpretive Data Percent cell count reference ranges are not reported, since discordance with absolute values may lead to misinterpretation of CBC data. Current Interpretive Data was last revised on 2017. Lymphocyte pct 14.8 % [facility] Comment: Interpretive Data Percent cell count reference ranges are not reported, since discordance with absolute values may lead to misinterpretation of CBC data. Current Interpretive Data was last revised on 2017. Monocyte pct 6.3 % [facility] Comment: Interpretive Data Percent cell count reference ranges are not reported, since discordance with absolute values may lead to misinterpretation of CBC data. Current Interpretive Data was last revised on 2017. Eosinophil pct 0.9 % [facility] Comment: Interpretive Data Percent cell count reference ranges are not reported, since discordance with absolute values may lead to misinterpretation of CBC data. Current Interpretive Data was last revised on 2017. Basophil pct 0.5 % [facility] Comment: Interpretive Data Percent cell count reference ranges are not reported, since discordance with absolute values may lead to misinterpretation of CBC data. Current Interpretive Data was last revised on 2017. Blood 08/13/2024 10:3 4 PM CDT 08/13/2024 11:06 PM CDT us Royal Gillespie MD LAB BLOOD ORDERABLES Florinda hanson Result [facility] Department [place] [address] * (ABNORMAL) Calcium, ionized (08/13/2024 10:34 PM CDT) [facility] Calcium, Ionized 4.39(L) 4.50 - 5.10 mg/dL Blood 08/13/2024 10:3 4 PM CDT 08/13/2024 11:00 PM CDT Royal Gillespie MD LAB BLOOD ORDERABLES Florinda l Result Performing Organization Address [facility] Co de Phone Number [facility] Department [place] [address] * (ABNORMAL) CBC with auto differential (08/13/2024 10:34 PM CDT) [facility] WBC 12.57(H) 3.80 - 9.90 K/cumm Hgb 6.9(L) 11.9 - 15.5 g/dL [facility] Hct 22.0(L) 35.6 - 45.5 % [facility] Plt 301 150 - 400 K/cumm [facility] MPV 9.5 9.1 - 12.3 fL [facility] RBC 2.60(L) 3.90 - 5.20 M/cumm [facility] MCV 84.6 81.3 - 96.4 fL [facility] MCH 26.5(L) 27.1 - 33.3 pg [facility] MCHC 31.4(L) 32.3 - 35.7 g/dL [facility] RDW CV 18.4(H) 11.1 - 14.9 % [facility] RDW SD 56.0(H) 35.7 - 48.1 fL [facility] NRBC abs 0.00 0.00 - 0.01 K/cumm [facility] Blood 08/13/2024 10:3 4 PM CDT 08/13/2024 11:06 PM CDT Royal Gillespie MD LAB BLOOD ORDERABLES Florinda l Result Performing Organization Address [facility]/ZIP Co de Phone Number [facility] Department [place] [address] * (ABNORMAL) Phosphorus (08/13/2024 10:34 PM CDT) Phosphorus, pl 7.2(H) 2.3 - 4.5 mg/dL Blood 08/13/2024 10:3 4 PM CDT 08/13/2024 11:05 PM CDT us Royal Gillespie MD LAB BLOOD ORDERABLES Florinda l Result [facility] Department [place] [address] * (ABNORMAL) Basic metabolic panel (08/13/2024 10:34 PM CDT) Pathologist [facility] [place] Sodium 131(L) 135 - 145 mmol/L Potassium, pl 5.4(H) 3.3 - 4.9 mmol/L [facility] Chloride 97 97 - 110 mmol/L [facility] CO2 26 22 - 32 mmol/L [facility] Anion gap 8 2 - 15 mmol/L [facility] BUN 38(H) 6 - 25 mg/dL [facility] Creatinine 5.17(H) 0.60 - 1.10 mg/dL [facility] Glucose 125 70 - 199 mg/dL [facility] Comment: Interpretive Data Fasting glucose >/= [...] 2022. Calcium 7.8(L) 8.5 - 10.3 mg/dL [facility] Blood 08/13/2024 10:3 4 PM CDT 08/13/2024 11:05 PM CDT us Royal Gillespie MD LAB BLOOD ORDERABLES Florinda l Result Performing Organization Address [facility] Co de Phone Number [facility] Department [place] [address] * POCT glucose (08/13/2024 7:51 PM CDT) Glucose, POC 134 70 - 199 mg/dL Blood 08/13/2024 7:51 PM CDT 08/13/2024 7:51 PM CDT Royal Gillespie MD LAB POCT ORDERABLES - DEV ICE Final Result Performing Organization Address [facility] de Phone Number [facility] [place] [address] * (ABNORMAL) Pre Dialysis BUN (08/13/2024 8:13 AM CDT) BUN Pre 36(H) 6 - 25 mg/dL Blood 08/13/2024 8:13 AM CDT 08/13/2024 8:47 AM CDT us Jaya Cuenca MD LAB BLOOD ORDERABLES F inal Result Performing Organization Address [facility] Co de Phone Number [facility] Department [place] [address] * (ABNORMAL) eGFR (08/13/2024 5:16 AM CDT) [...] MD LAB BLOOD ORDERABLES Florinda hanson Result [facility] Department [place] [address] * (ABNORMAL) Differential, auto (08/13/2024 5:16 AM CDT) Pathologist [facility] [place] Neutrophil abs 9.48(H) 1.50 - 6.50 K/cumm Imm gran abs 0.23(H) 0.00 - 0.10 K/cumm [facility] Lymphocyte abs 1.84 0.80 - 3.30 K/cumm [facility] Monocyte abs 0.91(H) 0.20 - 0.80 K/cumm [facility] Eosinophil abs 0.13 0.00 - 0.50 K/cumm [facility] Basophil abs 0.06 0.00 - 0.10 K/cumm [facility] Neutrophil pct 75.0 % [facility] Comment: Interpretive Data Percent cell count reference ranges are not reported, since discordance with absolute values may lead to misinterpretation of CBC data. Current Interpretive Data was last revised on 2017. Imm gran pct 1.8 % [facility] Comment: Interpretive Data Percent cell count reference ranges are not reported, since discordance with absolute values may lead to misinterpretation of CBC data. Current Interpretive Data was last revised on 2017. Lymphocyte pct 14.5 % [facility] Comment: Interpretive Data Percent cell count reference ranges are not reported, since discordance with absolute values may lead to misinterpretation of CBC data. Current Interpretive Data was last revised on 2017. Monocyte pct 7.2 % [facility] Comment: Interpretive Data Percent cell count reference ranges are not reported, since discordance with absolute values may lead to misinterpretation of CBC data. Current Interpretive Data was last revised on 2017. Eosinophil pct 1.0 % [facility] Comment: Interpretive Data Percent cell count reference ranges are not reported, since discordance with absolute values may lead to misinterpretation of CBC data. Current Interpretive Data was last revised on 2017. Basophil pct 0.5 % [facility] Comment: Interpretive Data Percent cell count reference ranges are not reported, since discordance with absolute values may lead to misinterpretation of CBC data. Current Interpretive Data was last revised on 2017. Blood 08/13/2024 5:16 AM CDT 08/13/2024 7:38 AM CDT Royal Weiss MD LAB BLOOD ORDERABLES Florinda l Result [facility] [place] [address] * (ABNORMAL) Calcium, ionized (08/13/2024 5:16 AM CDT) Calcium, Ionized 4.13(L) 4.50 - 5.10 mg/dL Blood 08/13/2024 5:16 AM CDT 08/13/2024 7:34 AM CDT Royal Weiss MD LAB BLOOD ORDERABLES Florinda l Result [facility] [place] [address] * (ABNORMAL) CBC with auto differential (08/13/2024 5:16 AM CDT) WBC 12.65(H) 3.80 - 9.90 K/cumm Hgb 7.3(L) 11.9 - 15.5 g/dL [facility] Hct 22.7(L) 35.6 - 45.5 % [facility] Plt 265 150 - 400 K/cumm [facility] MPV 9.8 9.1 - 12.3 fL [facility] RBC 2.65(L) 3.90 - 5.20 M/cumm [facility] MCV 85.7 81.3 - 96.4 fL [facility] MCH 27.5 27.1 - 33.3 pg [facility] MCHC 32.2(L) 32.3 - 35.7 g/dL [facility] RDW CV 18.2(H) 11.1 - 14.9 % [facility] RDW SD 56.4(H) 35.7 - 48.1 fL [facility] NRBC abs 0.00 0.00 - 0.01 K/cumm [facility] Blood 08/13/2024 5:16 AM CDT 08/13/2024 7:38 AM CDT us Royal Weiss MD LAB BLOOD ORDERABLES Florinda l Result [facility] [place] [address] * (ABNORMAL) Phosphorus (08/13/2024 5:16 AM CDT) Pathologist [facility] [place] Phosphorus, pl 6.6(H) 2.3 - 4.5 mg/dL Blood 08/13/2024 5:16 AM CDT 08/13/2024 7:38 AM CDT Royal Weiss MD LAB BLOOD ORDERABLES Florinda l Result [facility] [place] [address] * Magnesium (08/13/2024 5:16 AM CDT) Pathologist [facility] [place] Magnesium 1.8 1.4 - 2.5 mg/dL Blood 08/13/2024 5:16 AM CDT 08/13/2024 7:38 AM CDT Royal Weiss MD LAB BLOOD ORDERABLES Florinda l Result [facility] Department [place] [address] * (ABNORMAL) Basic metabolic panel (08/13/2024 5:16 AM CDT) [facility] Sodium 132(L) 135 - 145 mmol/L Potassium, pl 5.0(H) 3.3 - 4.9 mmol/L [facility] Chloride 98 97 - 110 mmol/L [facility] CO2 23 22 - 32 mmol/L [facility] Anion gap 11 2 - 15 mmol/L [facility] BUN 37(H) 6 - 25 mg/dL [facility] Creatinine 4.78(H) 0.60 - 1.10 mg/dL [facility] Glucose 105 70 - 199 mg/dL [facility] Comment: Interpretive Data Fasting glucose >/= [...] 2022. Calcium 7.6(L) 8.5 - 10.3 mg/dL [facility] Blood 08/13/2024 5:16 AM CDT 08/13/2024 7:38 AM CDT Royal Weiss MD LAB BLOOD [place]AB[place] [address] * (ABNORMAL) Hemoglobin and hematocrit (08/12/2024 12:42 PM CDT) Hgb 8.0(L) 11.9 - 15.5 g/dL Hct 24.3(L) 35.6 - 45.5 % [facility] Blood 08/12/2024 12:4 2 PM CDT 08/12/2024 1:02 PM CDT Narrative [facility] - 08/12/2024 1:10 PM CDT 1 hour after the red blood cell transfusion is complete. us Royal Weiss MD LAB BLOOD ORDERABLES Florinda l Result Performing Organization Address [facility] Co de Phone [place] [address] * Transfuse RBC (08/12/2024 11:17 AM CDT) Blood us Hina Poon MD BLOOD TRANSFUSION ORDERABLES Edited Result - Final Performing Organization Address [facility] [place] [address] * Prepare RBC: 1 Units (08/12/2024 7:10 AM CDT) Pathologist [facility] [place] Product code [id number] Unit Number [id number] [facility] Product Blood Type APOS [facility] Dispense Status PRESUMED TRANSFUSED [facility] Blood 08/12/2024 7:10 AM CDT 08/12/2024 7:09 AM CDT Narrative [facility] - 08/12/2024 8:00 PM CDT Are special requirements needed? (All products are leukoreduced and CMV- safe)- >No Date required:-[id number] LRRBC # of [id number] Reasons:-Hgb <7 g/dL} us Hina Poon MD BLOOD BANK PRODUCT ORDERABLE S Final Result Performing Organization Address City/[facility]/ZIP Co de Phone Number [facility] Department [place] [address] * (ABNORMAL) eGFR (08/12/2024 5:58 AM CDT) [...] LAB BLOOD ORDERABLES Florinda l Result [facility] [place] [address] * (ABNORMAL) Differential, auto (08/12/2024 5:58 AM CDT) Neutrophil abs 8.64(H) 1.50 - 6.50 K/cumm Imm gran abs 0.19(H) 0.00 - 0.10 K/cumm [facility] Lymphocyte abs 1.75 0.80 - 3.30 K/cumm [facility] Monocyte abs 0.79 0.20 - 0.80 K/cumm [facility] Eosinophil abs 0.10 0.00 - 0.50 K/cumm [facility] Basophil abs 0.06 0.00 - 0.10 K/cumm [facility] Neutrophil pct 74.9 % [facility] Comment: Interpretive Data Percent cell count reference ranges are not reported, since discordance with absolute values may lead to misinterpretation of CBC data. Current Interpretive Data was last revised on 2017. Imm gran pct 1.6 % [facility] Comment: Interpretive Data Percent cell count reference ranges are not reported, since discordance with absolute values may lead to misinterpretation of CBC data. Current Interpretive Data was last revised on 2017. Lymphocyte pct 15.2 % [facility] Comment: Interpretive Data Percent cell count reference ranges are not reported, since discordance with absolute values may lead to misinterpretation of CBC data. Current Interpretive Data was last revised on 2017. Monocyte pct 6.9 % [facility] Comment: Interpretive Data Percent cell count reference ranges are not reported, since discordance with absolute values may lead to misinterpretation of CBC data. Current Interpretive Data was last revised on 2017. Eosinophil pct 0.9 % [facility] Comment: Interpretive Data Percent cell count reference ranges are not reported, since discordance with absolute values may lead to misinterpretation of CBC data. Current Interpretive Data was last revised on 2017. Basophil pct 0.5 % [facility] Comment: Interpretive Data Percent cell count reference ranges are not reported, since discordance with absolute values may lead to misinterpretation of CBC data. Current Interpretive Data was last revised on 2017. Blood 08/12/2024 5:58 AM CDT 08/12/2024 6:23 AM CDT us Royal Weiss MD LAB BLOOD ORDERABLES Florinda hanson Result [facility] Department [place] [address] * (ABNORMAL) Calcium, ionized (08/12/2024 5:58 AM CDT) [facility] Calcium, Ionized 4.43(L) 4.50 - 5.10 mg/dL Blood 08/12/2024 5:58 AM CDT 08/12/2024 6:08 AM CDT us Royal Weiss MD LAB BLOOD ORDERABLES Florinda l Result Performing Organization Address City/[facility] Co de Phone Number [facility] [place] [address] * (ABNORMAL) CBC with auto differential (08/12/2024 5:58 AM CDT) [facility] WBC 11.53(H) 3.80 - 9.90 K/cumm Hgb 6.6(L) 11.9 - 15.5 g/dL [facility] Hct 20.0(L) 35.6 - 45.5 % [facility] Plt 321 150 - 400 K/cumm [facility] MPV 9.5 9.1 - 12.3 fL [facility] RBC 2.47(L) 3.90 - 5.20 M/cumm [facility] MCV 81.0(L) 81.3 - 96.4 fL [facility] MCH 26.7(L) 27.1 - 33.3 pg [facility] MCHC 33.0 32.3 - 35.7 g/dL [facility] RDW CV 17.8(H) 11.1 - 14.9 % [facility] RDW SD 51.8(H) 35.7 - 48.1 fL [facility] NRBC abs 0.00 0.00 - 0.01 K/cumm [facility] Blood 08/12/2024 5:58 AM CDT 08/12/2024 6:23 AM CDT Royal Weiss MD LAB BLOOD ORDERABLES Florinda l Result Performing Organization Address City/[facility] Co de Phone Number [facility] [place] [address] * (ABNORMAL) Phosphorus (08/12/2024 5:58 AM CDT) [facility] Phosphorus, pl 5.2(H) 2.3 - 4.5 mg/dL Blood 08/12/2024 5:58 AM CDT 08/12/2024 6:23 AM CDT Royal Weiss MD LAB BLOOD ORDERABLES Florinda l Result Performing Organization Address City/[facility] Co de Phone Number [facility] Department [place] [address] * Magnesium (08/12/2024 5:58 AM CDT) [facility] Magnesium 1.9 1.4 - 2.5 mg/dL Blood 08/12/2024 5:58 AM CDT 08/12/2024 6:23 AM CDT Royal Weiss MD LAB BLOOD ORDERABLES Florinda l Result Performing Organization Address [facility] Co de Phone Number [facility] [place] [address] * (ABNORMAL) Basic metabolic panel (08/12/2024 5:58 AM CDT) [facility] Sodium 137 135 - 145 mmol/L Potassium, pl 4.1 3.3 - 4.9 mmol/L [facility] Chloride 103 97 - 110 mmol/L [facility] CO2 27 22 - 32 mmol/L [facility] Anion gap 7 2 - 15 mmol/L [facility] BUN 32(H) 6 - 25 mg/dL [facility] Creatinine 3.59(H) 0.60 - 1.10 mg/dL [facility] Glucose 112 70 - 199 mg/dL [facility] Comment: Interpretive Data Fasting glucose >/= [...] 2022. Calcium 7.5(L) 8.5 - 10.3 mg/dL [facility] Blood 08/12/2024 5:58 AM CDT 08/12/2024 6:23 AM CDT Royal Weiss MD LAB BLOOD ORDERABLES Florinda l Result Performing Organization Address [facility] Co de Phone Number [facility] [place] [address] * (ABNORMAL) Hemoglobin and hematocrit (08/11/2024 6:42 PM CDT) Hgb 7.6(L) 11.9 - 15.5 g/dL Hct 22.6(L) 35.6 - 45.5 % [facility] Blood 08/11/2024 6:42 PM CDT 08/11/2024 6:52 PM CDT Narrative [facility] - 08/11/2024 6:58 PM CDT 1 hour after the red blood cell transfusion is complete. Royal Weiss MD LAB BLOOD ORDERABLES Florinda l Result Performing Organization Address City/[facility]/ZIP Co de Phone Number [facility] [place] [address] * (ABNORMAL) Creatine kinase (CK), total (08/11/2024 6:42 PM CDT) CK <20(L) 30 - 200 Units/L Blood 08/11/2024 6:42 PM CDT 08/11/2024 6:52 PM CDT Royal Weiss MD LAB BLOOD ORDERABLES Florinda l Result Performing Organization Address [facility]/ZIP Co de Phone Number [facility] [place] [address] * Transfuse RBC (08/11/2024 6:24 PM CDT) Blood Royal Weiss MD BLOOD TRANSFUSION ORDERAB LES Edited Result - Final Performing Organization Address [facility] [place] [address] * Type and screen (08/11/2024 8:14 AM CDT) ABO Rh A Positive Marybeth, indirect Negative [facility] Blood 08/11/2024 8:14 AM CDT 08/11/2024 8:32 AM CDT Narrative [facility] - 08/11/2024 9:19 AM CDT Has the patient had Daratumumab or Isatuximab in the past 6 months?->Unknown oRyal Weiss MD LAB BLOOD BANK TEST ORDER MARTINEZ Final Result Performing Organization Address [facility] Co de Phone Number [facility] [place] [address] * Prepare RBC: 1 Units (08/11/2024 7:11 AM CDT) Product code [id number] Unit Number [id number] [facility] Product Blood Type APOS [facility] Dispense Status PRESUMED TRANSFUSED [facility] Blood 08/11/2024 7:11 AM CDT 08/11/2024 7:11 AM CDT Narrative [facility] - 08/12/2024 12:56 AM CDT Are special requirements needed? (All products are leukoreduced and CMV- safe)- >No Date required:-[id number] [id number] Reasons:-Hgb <7 g/dL} Royal Weiss MD BLOOD BANK PRODUCT ORDERA BLES Final Result Performing Organization Address [facility] Co de Phone Number [facility] Department [place] [address] * (ABNORMAL) eGFR (08/11/2024 6:14 AM CDT) eGFR 14(L) >=60 mL/min/1. 73 m2 [...] ORDERABLES Florinda l Result Performing Organization Address [facility]/ZIP Co de Phone Number [facility] Department [place] [address] * (ABNORMAL) Differential, auto (08/11/2024 6:14 AM CDT) Neutrophil abs 9.18(H) 1.50 - 6.50 K/cumm Imm gran abs 0.20(H) 0.00 - 0.10 K/cumm [facility] Lymphocyte abs 1.79 0.80 - 3.30 K/cumm [facility] Monocyte abs 0.93(H) 0.20 - 0.80 K/cumm [facility] Eosinophil abs 0.09 0.00 - 0.50 K/cumm [facility] Basophil abs 0.04 0.00 - 0.10 K/cumm [facility] Neutrophil pct 75.2 % [facility] Comment: Interpretive Data Percent cell count reference ranges are not reported, since discordance with absolute values may lead to misinterpretation of CBC data. Current Interpretive Data was last revised on 2017. Imm gran pct 1.6 % [facility] Comment: Interpretive Data Percent cell count reference ranges are not reported, since discordance with absolute values may lead to misinterpretation of CBC data. Current Interpretive Data was last revised on 2017. Lymphocyte pct 14.6 % [facility] Comment: Interpretive Data Percent cell count reference ranges are not reported, since discordance with absolute values may lead to misinterpretation of CBC data. Current Interpretive Data was last revised on 2017. Monocyte pct 7.6 % [facility] Comment: Interpretive Data Percent cell count reference ranges are not reported, since discordance with absolute values may lead to misinterpretation of CBC data. Current Interpretive Data was last revised on 2017. Eosinophil pct 0.7 % [facility] Comment: Interpretive Data Percent cell count reference ranges are not reported, since discordance with absolute values may lead to misinterpretation of CBC data. Current Interpretive Data was last revised on 2017. Basophil pct 0.3 % [facility] Comment: Interpretive Data Percent cell count reference ranges are not reported, since discordance with absolute values may lead to misinterpretation of CBC data. Current Interpretive Data was last revised on 2017. Blood 08/11/2024 6:14 AM CDT 08/11/2024 6:44 AM CDT Royal Weiss MD LAB BLOOD ORDERABLES Florinda l Result [facility] [place] [address] * Calcium, ionized (08/11/2024 6:14 AM CDT) [facility] Calcium, Ionized 4.54 4.50 - 5.10 mg/dL Blood 08/11/2024 6:14 AM CDT 08/11/2024 6:29 AM CDT Royal Weiss MD LAB BLOOD ORDERABLES Florinda hanson Result Performing Organization Address [facility] Co de Phone Number [facility] Department [place] [address] * (ABNORMAL) CBC with auto differential (08/11/2024 6:14 AM CDT) [facility] WBC 12.23(H) 3.80 - 9.90 K/cumm Hgb 6.2(C) 11.9 - 15.5 g/dL [facility] Comment:This result has been called to Emilie Bhatt RN by [email or web address] on 08/11/2024 07:02:18, and has been read back. Hct 18.6(L) 35.6 - 45.5 % [facility] Plt 373 150 - 400 K/cumm [facility] MPV 9.9 9.1 - 12.3 fL [facility] RBC 2.35(L) 3.90 - 5.20 M/cumm [facility] MCV 79.1(L) 81.3 - 96.4 fL [facility] MCH 26.4(L) 27.1 - 33.3 pg [facility] MCHC 33.3 32.3 - 35.7 g/dL [facility] RDW CV 18.5(H) 11.1 - 14.9 % [facility] RDW SD 51.9(H) 35.7 - 48.1 fL [facility] NRBC abs 0.00 0.00 - 0.01 K/cumm [facility] Blood 08/11/2024 6:14 AM CDT 08/11/2024 6:44 AM CDT Royal Weiss MD LAB BLOOD ORDERABLES Florinda l Result Performing Organization Address [facility] Co de Phone Number [facility] [place] [address] * (ABNORMAL) Phosphorus (08/11/2024 6:14 AM CDT) Pathologist [facility] [place] Phosphorus, pl 5.3(H) 2.3 - 4.5 mg/dL Blood 08/11/2024 6:14 AM CDT 08/11/2024 6:41 AM CDT Royal Weiss MD LAB BLOOD ORDERABLES Florinda l Result Performing Organization Address [facility] Co de Phone Number [facility] [place] [address] * Magnesium (08/11/2024 6:14 AM CDT) [facility] Magnesium 1.9 1.4 - 2.5 mg/dL Blood 08/11/2024 6:14 AM CDT 08/11/2024 6:41 AM CDT Royal Weiss MD LAB BLOOD ORDERABLES Florinda l Result Performing Organization Address [facility] [place] [address] * (ABNORMAL) Basic metabolic panel (08/11/2024 6:14 AM CDT) Pathologist [facility] [place] Sodium 134(L) 135 - 145 mmol/L Potassium, pl 4.2 3.3 - 4.9 mmol/L [facility] Chloride 101 97 - 110 mmol/L [facility] CO2 27 22 - 32 mmol/L [facility] Anion gap 6 2 - 15 mmol/L [facility] BUN 42(H) 6 - 25 mg/dL [facility] Creatinine 4.19(H) 0.60 - 1.10 mg/dL [facility] Glucose 95 70 - 199 mg/dL [facility] Comment: Interpretive Data Fasting glucose >/= [...] 2022. Calcium 7.4(L) 8.5 - 10.3 mg/dL [facility] Blood 08/11/2024 6:14 AM CDT 08/11/2024 6:41 AM CDT Royal Weiss MD LAB BLOOD ORDERABLES Florinda hanson Result [facility] Department [place] [address] * Infection Prevention Helen auris PCR, surveillance Axilla/Groin (08/10/2024 7:09 PM CDT) Helen auris DNA Not Detected Not Detected [facility] Comment: Interpretive Data Testing performed by [facility] using the Noa pramod [id number] Helen auris assay. This assay detects DNA from Helen auris using Real-Time PCR. This assay is laboratory developed and is not cleared by the [place] Food and Drug Administration. The performance characteristics have been verified by the [facility]. Axilla/Groin 08/10/2024 7:09 PM CDT 08/10/2024 8:33 PM CDT Umang Phillips MD LAB MICROBIOLOGY - GENERAL ORDER MARTINEZ Final Result Performing Organization Address [facility] Co de Phone Number [facility] Department [place] [address] [facility] * (ABNORMAL) eGFR (08/10/2024 12:22 PM [...] LAB BLOOD ORDERABLES Florinda l Result [facility] PRU[facility] Department [place] [address] * (ABNORMAL) Basic metabolic panel (08/10/2024 12:22 PM CDT) Sodium 132(L) 135 - 145 mmol/L Potassium, pl 4.8 3.3 - 4.9 mmol/L [facility] Chloride 101 97 - 110 mmol/L [facility] CO2 23 22 - 32 mmol/L [facility] Anion gap 8 2 - 15 mmol/L [facility] BUN 52(H) 6 - 25 mg/dL [facility] Creatinine 4.69(H) 0.60 - 1.10 mg/dL [facility] Glucose 84 70 - 199 mg/dL [facility] Comment: Interpretive Data Fasting glucose >/= [...] 2022. Calcium 7.8(L) 8.5 - 10.3 mg/dL [facility] Blood 08/10/2024 12:2 2 PM CDT 08/10/2024 12:44 PM CDT us Royal Weiss MD LAB BLOOD ORDERABLES Florinda l Result [facility] Department [place] [address] * (ABNORMAL) eGFR (08/10/2024 5:01 AM CDT) [...] MD LAB BLOOD ORDERABLES Florinda hanson Result [facility] Department [place] [address] * (ABNORMAL) Differential, auto (08/10/2024 5:01 AM CDT) Neutrophil abs 10.12(H) 1.50 - 6.50 K/cumm Imm gran abs 0.24(H) 0.00 - 0.10 K/cumm [facility] Lymphocyte abs 1.74 0.80 - 3.30 K/cumm [facility] Monocyte abs 0.99(H) 0.20 - 0.80 K/cumm [facility] Eosinophil abs 0.11 0.00 - 0.50 K/cumm [facility] Basophil abs 0.05 0.00 - 0.10 K/cumm [facility] Neutrophil pct 76.4 % [facility] Comment: Interpretive Data Percent cell count reference ranges are not reported, since discordance with absolute values may lead to misinterpretation of CBC data. Current Interpretive Data was last revised on 2017. Imm gran pct 1.8 % [facility] Comment: Interpretive Data Percent cell count reference ranges are not reported, since discordance with absolute values may lead to misinterpretation of CBC data. Current Interpretive Data was last revised on 2017. Lymphocyte pct 13.1 % [facility] Comment: Interpretive Data Percent cell count reference ranges are not reported, since discordance with absolute values may lead to misinterpretation of CBC data. Current Interpretive Data was last revised on 2017. Monocyte pct 7.5 % [facility] Comment: Interpretive Data Percent cell count reference ranges are not reported, since discordance with absolute values may lead to misinterpretation of CBC data. Current Interpretive Data was last revised on 2017. Eosinophil pct 0.8 % [facility] Comment: Interpretive Data Percent cell count reference ranges are not reported, since discordance with absolute values may lead to misinterpretation of CBC data. Current Interpretive Data was last revised on 2017. Basophil pct 0.4 % [facility] Comment: Interpretive Data Percent cell count reference ranges are not reported, since discordance with absolute values may lead to misinterpretation of CBC data. Current Interpretive Data was last revised on 2017. Blood 08/10/2024 5:01 AM CDT 08/10/2024 5:17 AM CDT Royal Weiss MD LAB BLOOD ORDERABLES Florinda l Result Performing Organization Address [facility] Co de Phone Number [facility] Department [place] [address] * (ABNORMAL) Calcium, ionized (08/10/2024 5:01 AM CDT) Pathologist [facility] [place] Calcium, Ionized 4.20(L) 4.50 - 5.10 mg/dL Blood 08/10/2024 5:01 AM CDT 08/10/2024 5:11 AM CDT Royal Weiss MD LAB BLOOD ORDERABLES Florinda l Result [facility] Department [place] [address] * (ABNORMAL) CBC with auto differential (08/10/2024 5:01 AM CDT) WBC 13.25(H) 3.80 - 9.90 K/cumm Hgb 7.1(L) 11.9 - 15.5 g/dL [facility] Hct 20.9(L) 35.6 - 45.5 % [facility] Plt 419(H) 150 - 400 K/cumm [facility] MPV 9.9 9.1 - 12.3 fL [facility] RBC 2.73(L) 3.90 - 5.20 M/cumm [facility] MCV 76.6(L) 81.3 - 96.4 fL [facility] MCH 26.0(L) 27.1 - 33.3 pg [facility] MCHC 34.0 32.3 - 35.7 g/dL [facility] RDW CV 17.8(H) 11.1 - 14.9 % [facility] RDW SD 49.2(H) 35.7 - 48.1 fL [facility] NRBC abs 0.00 0.00 - 0.01 K/cumm [facility] Blood 08/10/2024 5:01 AM CDT 08/10/2024 5:17 AM CDT Royal Weiss MD LAB BLOOD ORDERABLES Florinda l Result [facility] Department [place] [address] * (ABNORMAL) Phosphorus (08/10/2024 5:01 AM CDT) Phosphorus, pl 8.4(H) 2.3 - 4.5 mg/dL Blood 08/10/2024 5:01 AM CDT 08/10/2024 5:11 AM CDT Royal Weiss MD LAB BLOOD ORDERABLES Florinda l Result [facility] Department [place] [address] * Magnesium (08/10/2024 5:01 AM CDT) Magnesium 2.0 1.4 - 2.5 mg/dL Blood 08/10/2024 5:01 AM CDT 08/10/2024 5:11 AM CDT Royal Weiss MD LAB BLOOD ORDERABLES Florinda l Result [facility] Department [place] [address] * (ABNORMAL) Basic metabolic panel (08/10/2024 5:01 AM CDT) Sodium 132(L) 135 - 145 mmol/L Potassium, pl 5.1(H) 3.3 - 4.9 mmol/L [facility] Chloride 101 97 - 110 mmol/L [facility] CO2 20(L) 22 - 32 mmol/L [facility] Anion gap 11 2 - 15 mmol/L [facility] BUN 61(H) 6 - 25 mg/dL [facility] Creatinine 5.62(H) 0.60 - 1.10 mg/dL [facility] Glucose 92 70 - 199 mg/dL [facility] Comment: Interpretive Data Fasting glucose >/= [...] 2022. Calcium 7.3(L) 8.5 - 10.3 mg/dL [facility] Blood 08/10/2024 5:01 AM CDT 08/10/2024 5:11 AM CDT Royal Weiss MD LAB BLOOD ORDERABLES Florinda l Result [facility] Department [place] [address] * POCT glucose (08/10/2024 3:35 AM CDT) Glucose, POC 110 70 - 199 mg/dL Blood 08/10/2024 3:35 AM CDT 08/10/2024 3:35 AM CDT Royal Weiss MD LAB POCT ORDERABLES - DEV ICE Final Result [facility] [place] [address] * Potassium (08/10/2024 3:35 AM CDT) [facility] Signature Potassium, pl 4.5 3.3 - 4.9 mmol/L Blood 08/10/2024 3:35 AM CDT 08/10/2024 3:47 AM CDT Narrative [facility] - 08/10/2024 4:11 AM CDT Provider to discontinue after two normal results. Royal Weiss MD LAB BLOOD ORDERABLES Florinda l Result Performing Organization Address City/[facility]/ZIP Co de Phone Number [facility] [place] [address] * Potassium (08/10/2024 12:00 AM CDT) [facility] Potassium, pl 4.9 3.3 - 4.9 mmol/L Blood 08/10/2024 08/10/2024 12: 14 AM CDT Narrative [facility] - 08/10/2024 12:34 AM CDT Provider to discontinue after two normal results. Royal Weiss MD LAB BLOOD ORDERABLES Florinda l Result [facility] [place] [address] * POCT glucose (08/09/2024 11:57 PM CDT) Glucose, POC 84 70 - 199 mg/dL Blood 08/09/2024 11:5 7 PM CDT 08/09/2024 11:57 PM CDT Royal Weiss MD LAB POCT ORDERABLES - DEV ICE Final Result Performing Organization Address [facility] Co de Phone Number [facility] [place] [address] * POCT glucose (08/09/2024 11:01 PM CDT) Glucose, POC 171 70 - 199 mg/dL Blood 08/09/2024 11:0 1 PM CDT 08/09/2024 11:01 PM CDT Royal Weiss MD LAB POCT ORDERABLES - DEV ICE Final Result Performing Organization Address [facility] Co de Phone Number [facility] [place] [address] * POCT glucose (08/09/2024 10:17 PM CDT) Glucose, POC 155 70 - 199 mg/dL Blood 08/09/2024 10:1 7 PM CDT 08/09/2024 10:17 PM CDT Royal Weiss MD LAB POCT ORDERABLES - DEV ICE Final Result Performing Organization Address City/[facility] Co de Phone Number [facility] [place] [address] * POCT glucose (08/09/2024 9:05 PM CDT) Glucose, POC 111 70 - 199 mg/dL Blood 08/09/2024 9:05 PM CDT 08/09/2024 9:05 PM CDT Royal Weiss MD LAB POCT ORDERABLES - DEV ICE Final Result Performing Organization Address [facility] Co de Phone Number [facility] [place] [address] * (ABNORMAL) Potassium (08/09/2024 8:51 PM CDT) Potassium, pl 5.9(H) 3.3 - 4.9 mmol/L Blood 08/09/2024 8:51 PM CDT 08/09/2024 9:20 PM CDT Narrative [facility] - 08/09/2024 9:41 PM CDT Provider to discontinue after two normal results. Royal Weiss MD LAB BLOOD ORDERABLES Florinda l Result Performing Organization Address [facility] Co de Phone Number [facility] [place] [address] * POCT glucose (08/09/2024 7:49 PM CDT) Glucose, POC 91 70 - 199 mg/dL Blood 08/09/2024 7:49 PM CDT 08/09/2024 7:49 PM CDT Royal Weiss MD LAB POCT ORDERABLES - DEV ICE Final Result Performing Organization Address [facility] Co de Phone Number [facility] [place] [address] * XR Chest 1 View (08/09/2024 6:57 [...] size. Electronically signed by: Delmis Warren M.D. Royal Weiss MD IMG XR PROCEDURES Final R esult * POCT glucose (08/09/2024 6:57 PM CDT) Glucose, POC 85 70 - 199 mg/dL Blood 08/09/2024 6:57 PM CDT 08/09/2024 6:57 PM CDT Royal Weiss MD LAB POCT ORDERABLES - DEV ICE Final Result ARAMIS PRUITT [facility] Department [place] [address] * POCT glucose (08/09/2024 6:09 PM CDT) Glucose, POC 75 70 - 199 mg/dL Blood 08/09/2024 6:09 PM CDT 08/09/2024 6:09 PM CDT us Royal Weiss MD LAB POCT ORDERABLES - DEV ICE Final Result Performing Organization Address [facility] de Phone Number [facility] [place] [address] * (ABNORMAL) Potassium, whole blood (08/09/2024 6:00 PM CDT) Potassium, bld 5.9(H) 3.3 - 4.9 mmol/L Blood 08/09/2024 6:00 PM CDT 08/09/2024 6:15 PM CDT us Royal Weiss MD LAB BLOOD ORDERABLES Florinda l Result Performing Organization Address [facility] de Phone Number [facility] Department [place] [address] * POCT glucose (08/09/2024 5:20 PM CDT) Glucose, POC 88 70 - 199 mg/dL Blood 08/09/2024 5:20 PM CDT 08/09/2024 5:20 PM CDT us Royal Weiss MD LAB POCT ORDERABLES - DEV ICE Final Result Performing Organization Address [facility] de Phone Number [facility] [place] [address] * [place] INSJ NON-TUNNELED CENTRAL VENOUS CATH AGE 5 YR/> (08/09/2024 5:19 PM CDT) Narrative Royal Weiss MD - 08/09/2024 5:19 PM CDT Royal Weiss MD 08/10/2024 11:44 AM Trialysis line Insertion Date/Time: 08/09/2024 5:19 PM Performed by: Alvaro Hu MD Authorized by: Alvaro Hu MD Clarence Protocol: RN Notified of Procedure: yes Informed consent: Risks, benefits, alternatives discussed and patient/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 agrees and accepts Patient's stated name/ [...] to culture positivity (anaerobic media): 11.8 hours [facility] Report Final Report: Staphylococcus aureus Methicillin resistant (MRSA) by penicillin binding protein 2a (PBP2a) testing. Staphylococcus aureus #2 Methicillin resistant (MRSA) by penicillin binding protein 2a (PBP2a) testing. (.) [facility] Organism STAPHYLOCOCCUS AUREUS [facility] Organism STAPHYLOCOCCUS AUREUS [facility] Blood 08/09/2024 5:19 PM CDT 08/09/2024 5:53 PM CDT Narrative [facility] - 08/13/2024 1:20 PM CDT Collection->New [...] performance characteristics have been verified by the [facility] Microbiology Laboratory. For questions about this culture, contact the Microbiology Laboratory at [phone]. Interpretive data was last revised on 24. [...] INTERPRETATIO N Resistant Staphylococcus aureus Ceftriaxone (JAMIL) INTERPRETATI ON Resistant Staphylococcus aureus Daptomycin (JAMIL) (JAMIL) INTERPRET ATION Susceptible Staphylococcus aureus Ceftaroline (JAMIL) INTERPRETATIO N Susceptible Staphylococcus aureus Doxycycline (JAMIL) INTERPRETATIO N Susceptible Staphylococcus aureus Linezolid (JAMIL) INTERPRETATIO N Susceptible Staphylococcus aureus Trimethoprim with Sulfamethoxazole (JAMIL) INTERPRETATION Susceptible Staphylococcus aureus Clindamycin (JAMIL) INTERPRETATIO N Susceptible Staphylococcus aureus Erythromycin (JAMIL) INTERPRETATI ON Resistant Staphylococcus aureus Vancomycin (JAMIL) INTERPRETATIO N Susceptible Staphylococcus aureus Oxacillin (JAMIL) INTERPRETATIO N Resistant Staphylococcus aureus Cefazolin (JAMIL) INTERPRETATIO N Resistant Staphylococcus aureus Ceftriaxone (JAMIL) INTERPRETATIO N Resistant Royal Weiss MD LAB MICROBIOLOGY - GENERA L ORDERABLES Final Result Performing Organization Address City/[facility]/ZIP Co de Phone Number [facility] [place] [address] * Critical Result Callback Chemistry (08/09/2024 4:21 PM CDT) Date Notified [id number] Time Notified 1711 [facility]IS [facility] TestName Potassium Plas [facility]IS [facility] Called/Read Back Katya SELF [facility] Credentials RN [facility]IS [facility] Called By CLAUDIA PRUITT Blood 08/09/2024 4:21 PM CDT 08/09/2024 4:38 PM CDT us Royal Weiss MD LAB BLOOD ORDERABLES Florinda l Result [facility] [place] [address] * (ABNORMAL) Potassium (08/09/2024 4:21 PM CDT) Potassium, pl 6.3(C) 3.3 - 4.9 mmol/L Comment:Hemolyzed; Potassium value may be falsely elevated by as much as 0.3-0.5 mmol/L. Suggest redraw and reanalysis. Blood 08/09/2024 4:21 PM CDT 08/09/2024 4:38 PM CDT Narrative [facility] - 08/09/2024 5:08 PM CDT Provider to discontinue after two normal results. Royal Weiss MD LAB BLOOD ORDERABLES Florinda l Result Performing Organization Address City/[facility]/ZIP Co de Phone Number [facility] [place] [address] * POCT glucose (08/09/2024 4:07 PM CDT) Glucose, POC 89 70 - 199 mg/dL Blood 08/09/2024 4:07 PM CDT 08/09/2024 4:07 PM CDT Royal Weiss MD LAB POCT ORDERABLES - DEV ICE Final Result Performing Organization Address [facility] Co de Phone Number [facility] [place] [address] * POCT glucose (08/09/2024 3:22 PM CDT) Glucose, POC 78 70 - 199 mg/dL Blood 08/09/2024 3:22 PM CDT 08/09/2024 3:22 PM CDT Royal Weiss MD LAB POCT ORDERABLES - DEV ICE Final Result Performing Organization Address City/[facility] Co de Phone Number [facility] [place] [address] * POCT glucose (08/09/2024 1:00 PM CDT) Glucose, POC 112 70 - 199 mg/dL Blood 08/09/2024 1:00 PM CDT 08/09/2024 1:00 PM CDT Royal Weiss MD LAB POCT ORDERABLES - DEV ICE Final Result Performing Organization Address City/[facility] Co de Phone Number [facility] [place] [address] * POCT glucose (08/09/2024 12:03 PM CDT) Glucose, POC 136 70 - 199 mg/dL Blood 08/09/2024 12:0 3 PM CDT 08/09/2024 12:03 PM CDT Royal Weiss MD LAB POCT ORDERABLES - DEV ICE Final Result Performing Organization Address [facility] Co de Phone Number [facility] [place] [address] * (ABNORMAL) Potassium (08/09/2024 11:59 AM CDT) Potassium, pl 5.9(H) 3.3 - 4.9 mmol/L Blood 08/09/2024 11:5 9 AM CDT 08/09/2024 12:33 PM CDT Narrative AR[facility]IS [facility] - 08/09/2024 1:00 PM CDT Provider to discontinue after two normal results. Royal Weiss MD LAB BLOOD ORDERABLES Florinda l Result Performing Organization Address City/[facility] Co de Phone Number [facility] [place] [address] * POCT glucose (08/09/2024 10:57 AM CDT) Glucose, POC 118 70 - 199 mg/dL Blood 08/09/2024 10:5 7 AM CDT 08/09/2024 10:57 AM CDT us Royal Weiss MD LAB POCT ORDERABLES - DEV ICE Final Result Performing Organization Address City/[facility]/ZIP Co de Phone Number ARAMIS [facility] [place] [address] * POCT glucose (08/09/2024 10:08 AM CDT) [facility] Glucose, POC 91 70 - 199 mg/dL Blood 08/09/2024 10:0 8 AM CDT 08/09/2024 10:08 AM CDT Royal Weiss MD LAB POCT ORDERABLES - DEV ICE Final Result Performing Organization Address [facility] de Phone Number ARAMIS [facility] [place] [address] * ECG 12 lead (08/09/2024 8:50 AM CDT) [facility] Ventricular Rate EKG/Min 98 BPM [facility] Atrial Rate 98 BPM [facility] FL-Interval (MSEC) 128 ms [facility] QRS-Interval (MSEC) 66 ms [facility] QT-Interval (MSEC) 354 ms [facility] QTc 451 ms [facility] P [place] 32 degrees [facility] R [place] 42 degrees [facility] T [place] 60 degrees [facility] Diagnosis Normal sinus rhythm Low voltage QRS Borderline ECG When compared with ECG of 08-AUG-2024 18:22, (unconfirmed) No significant change was found Confirmed by BREANA VENTURA M.D ([id number]) on 08/09/2024 10:45:14 PM [facility] 08/09/2024 8:50 AM CDT 08/09/2024 10:45 PM CDT us Royal Weiss MD ECG ORDERABLES Final Res ult Performing Organization Address City/[facility]/ZIP Co de Phone Number [facility] * (ABNORMAL) eGFR (08/09/2024 6:40 AM [...] BLOOD ORDERABLES Florinda l Result [facility] [place] [address] * (ABNORMAL) Calcium, ionized (08/09/2024 6:40 AM CDT) Calcium, Ionized 4.07(L) 4.50 - 5.10 mg/dL Blood 08/09/2024 6:40 AM CDT 08/09/2024 7:22 AM CDT Royal Weiss MD LAB BLOOD ORDERABLES Florinda l Result ARAMIS [facility] Department [place] [address] * (ABNORMAL) CBC with auto differential (08/09/2024 6:40 AM CDT) [facility] WBC 18.57(H) 3.80 - 9.90 K/cumm Hgb 8.2(L) 11.9 - 15.5 g/dL [facility] Hct 24.1(L) 35.6 - 45.5 % [facility] Plt 493(H) 150 - 400 K/cumm [facility] MPV 10.6 9.1 - 12.3 fL [facility] RBC 3.11(L) 3.90 - 5.20 M/cumm [facility] MCV 77.5(L) 81.3 - 96.4 fL [facility] MCH 26.4(L) 27.1 - 33.3 pg [facility] MCHC 34.0 32.3 - 35.7 g/dL [facility] RDW CV 17.9(H) 11.1 - 14.9 % [facility] RDW SD 50.0(H) 35.7 - 48.1 fL [facility] NRBC abs 0.00 0.00 - 0.01 K/cumm [facility] Morphologic Screen Results confirmed by manual morphology review. [facility] Blood 08/09/2024 6:40 AM CDT 08/09/2024 7:23 AM CDT Royal Weiss MD LAB BLOOD ORDERABLES Edit ed Result - Final [facility] Department [place] [address] * (ABNORMAL) Manual Differential (08/09/2024 6:40 AM CDT) [facility] Differential Manual Neutrophil abs 17.29(H) 1.50 - 6.50 K/cumm [facility] Lymphocyte abs 0.80 0.80 - 3.30 K/cumm [facility] Monocyte abs 0.48 0.20 - 0.80 K/cumm [facility] Neutrophil pct 93.1 % [facility] Comment: Interpretive Data Percent cell count reference ranges are not reported, since discordance with absolute values may lead to misinterpretation of CBC data. Current Interpretive Data was last revised on 2017. Lymphocyte pct 4.3 % [facility] Comment: Interpretive Data Percent cell count reference ranges are not reported, since discordance with absolute values may lead to misinterpretation of CBC data. Current Interpretive Data was last revised on 2017. Monocyte pct 2.6 % [facility] Comment: Interpretive Data Percent cell count reference ranges are not reported, since discordance with absolute values may lead to misinterpretation of CBC data. Current Interpretive Data was last revised on 2017. Blood 08/09/2024 6:40 AM CDT 08/09/2024 7:38 AM CDT Royal Weiss MD LAB BLOOD ORDERABLES Florinda l Result Performing Organization Address [facility] Co de Phone Number [facility] Department [place] [address] * (ABNORMAL) Phosphorus (08/09/2024 6:40 AM CDT) Phosphorus, pl 11.9(H) 2.3 - 4.5 mg/dL Blood 08/09/2024 6:40 AM CDT 08/09/2024 7:23 AM CDT Result [facility] Royal Weiss MD LAB BLOOD ORDERABLES Florinda l Result Performing Organization Address [facility] de Phone Number [facility] Department [place] [address] * Magnesium (08/09/2024 6:40 AM CDT) Magnesium 2.4 1.4 - 2.5 mg/dL Blood 08/09/2024 6:40 AM CDT 08/09/2024 7:23 AM CDT Royal Weiss MD LAB BLOOD ORDERABLES Florinda l Result Performing Organization Address City/[facility] Co de Phone Number [facility] Department [place] [address] * (ABNORMAL) Basic metabolic panel (08/09/2024 6:40 AM CDT) [facility] Sodium 131(L) 135 - 145 mmol/L Potassium, pl 5.6(H) 3.3 - 4.9 mmol/L [facility] Chloride 99 97 - 110 mmol/L [facility] CO2 17(L) 22 - 32 mmol/L [facility] Anion gap 15 2 - 15 mmol/L [facility] BUN 80(H) 6 - 25 mg/dL [facility] Creatinine 7.16(H) 0.60 - 1.10 mg/dL [facility] Glucose 78 70 - 199 mg/dL [facility] Comment: Interpretive Data Fasting glucose >/= [...] 2022. Calcium 7.1(L) 8.5 - 10.3 mg/dL [facility] Blood 08/09/2024 6:40 AM CDT 08/09/2024 7:23 AM CDT us Royal Weiss MD LAB BLOOD ORDERABLES Florinda l Result AR[facility] Department [place] [address] * ECG 12 lead (08/08/2024 6:22 PM CDT) [facility] Ventricular Rate EKG/Min 81 BPM [facility] Atrial Rate 81 BPM [facility] FL-Interval (MSEC) 144 ms [facility] QRS-Interval (MSEC) 68 ms [facility] QT-Interval (MSEC) 396 ms [facility] QTc 460 ms [facility] P [place] 29 degrees [facility] R [place] 37 degrees [facility] T [place] 56 degrees [facility] Diagnosis Normal sinus rhythm Normal ECG When compared with ECG of 07-AUG-2024 12:40, (unconfirmed) No significant change was found Confirmed by HAJA CORREA M.D ([id number]) on 08/10/2024 1:33:21 PM [facility] 08/08/2024 6:22 PM CDT 08/10/2024 1:33 PM CDT us Royal Weiss MD ECG ORDERABLES Final Res ult Performing Organization Address City/[facility]/ZIP Co de Phone Number [facility] * (ABNORMAL) Bacterial vaginosis stain Vaginal (08/08/2024 4:24 PM CDT) Direct Specimen Exam Stain: Gram stain indicates altered vaginal melissa, not diagnostic of bacterial vaginosis. Yeast present (.) Vaginal 08/08/2024 4:24 PM CDT 08/08/2024 5:57 PM CDT Narrative [facility] - 08/08/2024 7:13 PM CDT Specimen received on an ESwab. Interpretive Data Test performed by microscopic examination of a Gram-stained smear and interpreted using Khoi score. The scored Gram stain for diagnosis of bacterial vaginosis should be used only for women in childbearing years or postmenopausal women on estrogen replacement therapy. Current Interpretive Data was last revised on 2022 us Royal Weiss MD LAB MICROBIOLOGY - GENERA L ORDERABLES Final Result [facility] Department [place] [address] * POCT glucose (08/08/2024 4:07 PM CDT) Glucose, POC 91 70 - 199 mg/dL Blood 08/08/2024 4:07 PM CDT 08/08/2024 4:07 PM CDT Royal Weiss MD LAB POCT ORDERABLES - DEV ICE Final Result [facility] Department [place] [address] * (ABNORMAL) Blood culture Blood (08/08/2024 3:04 PM CDT) Direct Specimen Exam Stain: Gram Positive Cocci in clusters Time to culture positivity (aerobic media): 16.1 hours Time to culture positivity (anaerobic media): 18.1 hours Report Final Report: Staphylococcus aureus For susceptibility results, refer to accession number [id number] on the blood culture from 08/05/2024 * * * * * * * * * * * * * * * * * * * * Staphylococcus aureus #2 Methicillin resistant (MRSA) by penicillin binding protein 2a (PBP2a) testing. (.) [facility] Organism STAPHYLOCOCCUS AUREUS [facility] Organism STAPHYLOCOCCUS AUREUS [facility] Blood 08/08/2024 3:04 PM CDT 08/08/2024 5:39 PM CDT Narrative [facility] - 08/12/2024 12:46 PM CDT Collection->Peripheral 1. [...] performance characteristics have been verified by the [facility]. For questions about this culture, contact the Microbiology Laboratory at [phone]. Interpretive data was last revised on 24. [...] Staphylococcus aureus Ceftriaxone (JAMIL) INTERPRETATIO N Resistant Royal Weiss MD LAB MICROBIOLOGY - GENERA L ORDERABLES Final Result Performing Organization Address City/[facility]/ZIP Co de Phone Number [facility] Department [place] [address] * POCT glucose (08/08/2024 12:09 PM CDT) Glucose, POC 79 70 - 199 mg/dL Blood 08/08/2024 12:0 9 PM CDT 08/08/2024 12:09 PM CDT Royal Weiss MD LAB POCT ORDERABLES - DEV ICE Final Result [facility] [place] [address] * POCT glucose (08/08/2024 7:45 AM CDT) Glucose, POC 132 70 - 199 mg/dL Blood 08/08/2024 7:45 AM CDT 08/08/2024 7:45 AM CDT Royal Weiss MD LAB POCT ORDERABLES - DEV ICE Final Result Performing Organization Address [facility] Co de Phone Number [facility] Department [place] [address] * (ABNORMAL) eGFR (08/08/2024 5:15 AM CDT) eGFR 8(L) >=60 mL/min/1. 73 m2 [...] ORDERABLES Florinda l Result Performing Organization Address City/[facility]/ZIP Co de Phone Number ARAMIS [facility] Department [place] [address] * (ABNORMAL) Differential, auto (08/08/2024 5:15 AM CDT) Neutrophil abs 14.39(H) 1.50 - 6.50 K/cumm Imm gran abs 0.40(H) 0.00 - 0.10 K/cumm [facility] Lymphocyte abs 2.08 0.80 - 3.30 K/cumm [facility] Monocyte abs 1.28(H) 0.20 - 0.80 K/cumm [facility] Eosinophil abs 0.23 0.00 - 0.50 K/cumm [facility] Basophil abs 0.06 0.00 - 0.10 K/cumm [facility] Neutrophil pct 78.1 % [facility] Comment: Differential consistent with previous result. Interpretive Data Percent cell count reference ranges are not reported, since discordance with absolute values may lead to misinterpretation of CBC data. Current Interpretive Data was last revised on 2017. Imm gran pct 2.2 % [facility] Comment: Interpretive Data Percent cell count reference ranges are not reported, since discordance with absolute values may lead to misinterpretation of CBC data. Current Interpretive Data was last revised on 2017. Lymphocyte pct 11.3 % [facility] Comment: Interpretive Data Percent cell count reference ranges are not reported, since discordance with absolute values may lead to misinterpretation of CBC data. Current Interpretive Data was last revised on 2017. Monocyte pct 6.9 % [facility] Comment: Interpretive Data Percent cell count reference ranges are not reported, since discordance with absolute values may lead to misinterpretation of CBC data. Current Interpretive Data was last revised on 2017. Eosinophil pct 1.2 % [facility] Comment: Interpretive Data Percent cell count reference ranges are not reported, since discordance with absolute values may lead to misinterpretation of CBC data. Current Interpretive Data was last revised on 2017. Basophil pct 0.3 % [facility] Comment: Interpretive Data Percent cell count reference ranges are not reported, since discordance with absolute values may lead to misinterpretation of CBC data. Current Interpretive Data was last revised on 2017. Blood 08/08/2024 5:15 AM CDT 08/08/2024 6:36 AM CDT us Royal Weiss MD LAB BLOOD ORDERABLES Florinda hanson Result [facility] Department [place] [address] * (ABNORMAL) Calcium, ionized (08/08/2024 5:15 AM CDT) [facility] Calcium, Ionized 4.31(L) 4.50 - 5.10 mg/dL Blood 08/08/2024 5:15 AM CDT 08/08/2024 6:36 AM CDT Royal Weiss MD LAB BLOOD ORDERABLES Florinda l Result Performing Organization Address [facility] de Phone Number [facility] Department [place] [address] * (ABNORMAL) CBC with auto differential (08/08/2024 5:15 AM CDT) [facility] WBC 18.44(H) 3.80 - 9.90 K/cumm Hgb 7.5(L) 11.9 - 15.5 g/dL [facility] Hct 21.6(L) 35.6 - 45.5 % [facility] Plt 385 150 - 400 K/cumm [facility] MPV 11.0 9.1 - 12.3 fL [facility] RBC 2.84(L) 3.90 - 5.20 M/cumm [facility] MCV 76.1(L) 81.3 - 96.4 fL [facility] MCH 26.4(L) 27.1 - 33.3 pg [facility] MCHC 34.7 32.3 - 35.7 g/dL [facility] RDW CV 17.7(H) 11.1 - 14.9 % [facility] RDW SD 48.9(H) 35.7 - 48.1 fL [facility] NRBC abs 0.00 0.00 - 0.01 K/cumm [facility] Blood 08/08/2024 5:15 AM CDT 08/08/2024 6:36 AM CDT Royal Weiss MD LAB BLOOD ORDERABLES Florinda l Result Performing Organization Address City/[facility]/ZIP Co de Phone Number [facility] [place] [address] * (ABNORMAL) Phosphorus (08/08/2024 5:15 AM CDT) [facility] Phosphorus, pl 10.8(H) 2.3 - 4.5 mg/dL Blood 08/08/2024 5:15 AM CDT 08/08/2024 6:36 AM CDT Royal Weiss MD LAB BLOOD ORDERABLES Florinda l Result Performing Organization Address City/[facility]/[place] [address] * Magnesium (08/08/2024 5:15 AM CDT) [facility] Magnesium 2.3 1.4 - 2.5 mg/dL Blood 08/08/2024 5:15 AM CDT 08/08/2024 6:36 AM CDT Royal Weiss MD LAB BLOOD ORDERABLES Florinda l Result Performing Organization Address [facility] [place] [address] * (ABNORMAL) Basic metabolic panel (08/08/2024 5:15 AM CDT) [facility] Sodium 130(L) 135 - 145 mmol/L Potassium, pl 4.8 3.3 - 4.9 mmol/L [facility] Chloride 99 97 - 110 mmol/L [facility] CO2 19(L) 22 - 32 mmol/L [facility] Anion gap 12 2 - 15 mmol/L [facility] BUN 74(H) 6 - 25 mg/dL [facility] Creatinine 6.41(H) 0.60 - 1.10 mg/dL [facility] Glucose 87 70 - 199 mg/dL [facility] Comment: Interpretive Data Fasting glucose >/= [...] 2022. Calcium 7.3(L) 8.5 - 10.3 mg/dL [facility] Blood 08/08/2024 5:15 AM CDT 08/08/2024 6:36 AM CDT Royal Weiss MD LAB BLOOD ORDERABLES Florinda l Result Performing Organization Address [facility] Co de Phone Number [facility] Department [place] [address] * POCT glucose (08/08/2024 3:59 AM CDT) Glucose, POC 84 70 - 199 mg/dL Blood 08/08/2024 3:59 AM CDT 08/08/2024 3:59 AM CDT Royal Weiss MD LAB POCT ORDERABLES - DEV ICE Final Result Performing Organization Address [facility] de Phone Number [facility] Department [place] [address] * hCG, urine, qualitative (08/08/2024 12:04 AM CDT) HCG, ur Negative Negative Urine 08/08/2024 12:0 4 AM CDT 08/08/2024 1:38 AM CDT Lalito Rachel MD LAB URINE ORDERABLES Florinda l Result Performing Organization Address [facility] de Phone Number [facility] [place] [place] [address] * POCT glucose (08/07/2024 11:38 PM CDT) Glucose, POC 98 70 - 199 mg/dL Blood 08/07/2024 11:3 8 PM CDT 08/07/2024 11:38 PM CDT us Royal Weiss MD LAB POCT ORDERABLES - [place] [address] * POCT glucose (08/07/2024 9:19 PM CDT) Glucose, POC 76 70 - 199 mg/dL Blood 08/07/2024 9:19 PM CDT 08/07/2024 9:19 PM CDT us Royal Weiss MD LAB POCT ORDERABLES - DEV ICE Final Result Performing Organization Address City/[facility] Co de Phone Number [facility] [address] * (ABNORMAL) POCT glucose (08/07/2024 7:49 PM CDT) Glucose, POC 69(L) 70 - 199 mg/dL Blood 08/07/2024 7:49 PM CDT 08/07/2024 7:49 PM CDT Royal Weiss MD LAB POCT ORDERABLES - DEV ICE Final Result Performing Organization Address City/[facility]/ZIP Co de Phone Number [facility] [place] [address] * CT Chest Abdomen Pelvis WO Contrast [...] PM CDT) Ventricular Rate EKG/Min 89 BPM [facility] Atrial Rate 89 BPM [facility] FL-Interval (MSEC) 122 ms [facility] QRS-Interval (MSEC) 72 ms [facility] QT-Interval (MSEC) 376 ms [facility] QTc 457 ms [facility] P [place] 57 degrees [facility] R [place] 37 degrees [facility] T [place] 44 degrees [facility] Diagnosis Normal sinus rhythm Low voltage QRS Borderline ECG When compared with ECG of 06-AUG-2024 19:36, QT has lengthened Confirmed by BREANA VENTURA M.D ([id number]) on 08/09/2024 10:48:06 PM [facility] 08/07/2024 12:4 0 PM CDT 08/09/2024 10:48 PM CDT Royal Weiss MD ECG ORDERABLES Final Res ult Performing Organization Address [facility]/ZIP Co de Phone Number [facility] * Mycology (fungal) culture and stain Abscess Hand, right (08/07/2024 10:52 AM CDT) Direct Specimen Exam Stain: No Fungal elements seen. Report Final Report: No growth of fungus [facility] Abscess (Hand, right) 08/07/2024 10:52 AM CDT 08/07/2024 11:24 AM CDT Narrative [facility] - 09/04/2024 8:43 AM CDT Testing performed by [facility] ([phone]). Royal Weiss MD LAB MICROBIOLOGY - GENERA L ORDERABLES Final Result [facility] Department [place] [address] * (ABNORMAL) Aerobic and anaerobic culture and gram stain Abscess Hand, right (08/07/2024 10:52 AM CDT) Direct Specimen Exam Stain: Moderate polymorphonuclear leukocytes seen. Moderate Gram Positive Cocci Report Final Report: Abundant Staphylococcus aureus Methicillin resistant (MRSA) by penicillin binding protein 2a (PBP2a) testing. (.) [facility] Organism STAPHYLOCOCCUS AUREUS [facility] Abscess (Hand, right) 08/07/2024 10:52 AM CDT 08/07/2024 11:23 AM CDT Narrative [facility] - 08/10/2024 10:51 AM CDT Testing performed by [facility] ([phone]) Specimens submitted from normally sterile body sites [...] MICROBIOLOGY - GENERA L ORDERABLES Final Result [facility] Department [place] [address] * (ABNORMAL) C4 complement (08/07/2024 8:59 AM CDT) Complement C4 7.8(L) 10.0 - 40.0 mg/dL Blood 08/07/2024 8:59 AM CDT 08/07/2024 9:19 AM CDT Royal Weiss MD LAB BLOOD ORDERABLES Florinda l Result [facility] Department [place] [address] * (ABNORMAL) Erythrocyte sedimentation rate (08/07/2024 8:59 AM CDT) Erythrocyte sedimentation rate 92(H) 1 - 20 mm/hr Blood 08/07/2024 8:59 AM CDT 08/07/2024 9:18 AM CDT Royal Weiss MD LAB BLOOD ORDERABLES Florinda l Result Performing Organization Address [facility] Co de Phone Number [facility] [place] [address] * (ABNORMAL) C3 complement (08/07/2024 8:59 AM CDT) Pathologist [facility] [place] Complement C3 47.0(L) 90.0 - 180.0 mg/dL Blood 08/07/2024 8:59 AM CDT 08/07/2024 9:19 AM CDT us Royal Weiss MD LAB BLOOD ORDERABLES Florinda l Result Performing Organization Address [facility] de Phone Number [facility] [place] [address] * (ABNORMAL) CRP (acute phase) (08/07/2024 8:59 AM CDT) Pathologist [facility] CRP 227.5(H) <=10.0 mg/L Blood 08/07/2024 8:59 AM CDT 08/07/2024 9:18 AM CDT Royal Weiss MD LAB BLOOD ORDERABLES Florinda l Result Performing Organization Address [facility] Co de Phone Number [facility] [place] [address] * XR Hand Right 3 or More [...] MD LAB BLOOD ORDERABLES Florinda hanson Result [facility] Department [place] [address] * (ABNORMAL) Differential, auto (08/07/2024 6:05 AM CDT) Neutrophil abs 16.64(H) 1.50 - 6.50 K/cumm Imm gran abs 0.61(H) 0.00 - 0.10 K/cumm [facility] Lymphocyte abs 1.86 0.80 - 3.30 K/cumm [facility] Monocyte abs 1.63(H) 0.20 - 0.80 K/cumm [facility] Eosinophil abs 0.16 0.00 - 0.50 K/cumm [facility] Basophil abs 0.06 0.00 - 0.10 K/cumm [facility] Neutrophil pct 79.3 % [facility] Comment: Interpretive Data Percent cell count reference ranges are not reported, since discordance with absolute values may lead to misinterpretation of CBC data. Current Interpretive Data was last revised on 2017. Imm gran pct 2.9 % [facility] Comment: Interpretive Data Percent cell count reference ranges are not reported, since discordance with absolute values may lead to misinterpretation of CBC data. Current Interpretive Data was last revised on 2017. Lymphocyte pct 8.9 % [facility] Comment: Interpretive Data Percent cell count reference ranges are not reported, since discordance with absolute values may lead to misinterpretation of CBC data. Current Interpretive Data was last revised on 2017. Monocyte pct 7.8 % [facility] Comment: Interpretive Data Percent cell count reference ranges are not reported, since discordance with absolute values may lead to misinterpretation of CBC data. Current Interpretive Data was last revised on 2017. Eosinophil pct 0.8 % [facility] Comment: Interpretive Data Percent cell count reference ranges are not reported, since discordance with absolute values may lead to misinterpretation of CBC data. Current Interpretive Data was last revised on 2017. Basophil pct 0.3 % [facility] Comment: Interpretive Data Percent cell count reference ranges are not reported, since discordance with absolute values may lead to misinterpretation of CBC data. Current Interpretive Data was last revised on 2017. Blood 08/07/2024 6:05 AM CDT 08/07/2024 6:22 AM CDT Royal Weiss MD LAB BLOOD ORDERABLES Florinda hanson Result [facility] Department [place] [address] * (ABNORMAL) CBC with auto differential (08/07/2024 6:05 AM CDT) WBC 20.96(H) 3.80 - 9.90 K/cumm Hgb 8.1(L) 11.9 - 15.5 g/dL [facility] Hct 23.8(L) 35.6 - 45.5 % [facility] Plt 319 150 - 400 K/cumm [facility] MPV 12.0 9.1 - 12.3 fL [facility] RBC 3.13(L) 3.90 - 5.20 M/cumm [facility] MCV 76.0(L) 81.3 - 96.4 fL [facility] MCH 25.9(L) 27.1 - 33.3 pg [facility] MCHC 34.0 32.3 - 35.7 g/dL [facility] RDW CV 17.2(H) 11.1 - 14.9 % [facility] RDW SD 47.2 35.7 - 48.1 fL [facility] NRBC abs 0.00 0.00 - 0.01 K/cumm [facility] Morphologic Screen Results confirmed by manual morphology review. [facility] Blood 08/07/2024 6:05 AM CDT 08/07/2024 6:22 AM CDT Royal Weiss MD LAB BLOOD ORDERABLES Edit ed Result - Final Performing Organization Address [facility] Co de Phone Number [facility] Department [place] [address] * (ABNORMAL) Erythrocyte sedimentation rate (08/07/2024 6:05 AM CDT) Erythrocyte sedimentation rate 94(H) 1 - 20 mm/hr Blood 08/07/2024 6:05 AM CDT 08/07/2024 6:26 AM CDT Royal Weiss MD LAB BLOOD ORDERABLES Florinda l Result Performing Organization Address [facility] de Phone Number [facility] [place] [address] * (ABNORMAL) CRP (acute phase) (08/07/2024 6:05 AM CDT) CRP 224.5(H) <=10.0 mg/L Comment:Repeated on Dilution Blood 08/07/2024 6:05 AM CDT 08/07/2024 6:22 AM CDT Royal Weiss MD LAB BLOOD ORDERABLES Florinda l Result Performing Organization Address [facility] Co de Phone Number [facility] [place] [address] * (ABNORMAL) Phosphorus (08/07/2024 6:05 AM CDT) Phosphorus, pl 8.8(H) 2.3 - 4.5 mg/dL Blood 08/07/2024 6:05 AM CDT 08/07/2024 6:22 AM CDT Royal Weiss MD LAB BLOOD ORDERABLES Florinda l Result [facility] [place] [address] * Magnesium (08/07/2024 6:05 AM CDT) [facility] Magnesium 2.3 1.4 - 2.5 mg/dL Blood 08/07/2024 6:05 AM CDT 08/07/2024 6:22 AM CDT Royal Weiss MD LAB BLOOD ORDERABLES Florinda l Result Performing Organization Address [facility] de Phone Number [facility] Department [place] [address] * (ABNORMAL) Basic metabolic panel (08/07/2024 6:05 AM CDT) Pathologist [facility] Sodium 130(L) 135 - 145 mmol/L Potassium, pl 3.9 3.3 - 4.9 mmol/L [facility] Chloride 97 97 - 110 mmol/L [facility] CO2 19(L) 22 - 32 mmol/L [facility] Anion gap 14 2 - 15 mmol/L [facility] BUN 62(H) 6 - 25 mg/dL [facility] Creatinine 5.12(H) 0.60 - 1.10 mg/dL [facility] Glucose 104 70 - 199 mg/dL [facility] Comment: Interpretive Data Fasting glucose >/= [...] 2022. Calcium 6.9(L) 8.5 - 10.3 mg/dL [facility] Blood 08/07/2024 6:05 AM CDT 08/07/2024 6:22 AM CDT Royal Weiss MD LAB BLOOD ORDERABLES Florinda l Result Performing Organization Address [facility] de Phone Number [facility] [place] [address] * Transfuse RBC (08/06/2024 11:46 PM CDT) Blood Royal Weiss MD BLOOD TRANSFUSION ORDERAB LES Final Result Performing Organization Address [facility] Phone Number [facility] [place] [address] * Prepare RBC: 1 Units (08/06/2024 8:04 PM CDT) [facility] Signature Product code [id number] Unit Number [id number] [facility] Product Blood Type APOS [facility] Dispense Status PRESUMED TRANSFUSED [facility] Blood 08/06/2024 8:04 PM CDT 08/06/2024 8:04 PM CDT Narrative [facility] - 08/07/2024 4:00 PM CDT Are special requirements needed? (All products are leukoreduced and CMV- safe)- >No Date required:-[id number] LRRBC # of [id number] Reasons:-Hgb <7 g/dL} Royal Weiss MD BLOOD BANK PRODUCT ORDERA BLES Final Result Performing Organization Address [facility] de Phone Number [facility] [place] [address] * ECG 12 lead (08/06/2024 7:36 PM CDT) Pathologist [facility] [place] Ventricular Rate EKG/Min 70 BPM [facility] Atrial Rate 70 BPM [facility] FL-Interval (MSEC) 136 ms [facility] QRS-Interval (MSEC) 72 ms [facility] QT-Interval (MSEC) 362 ms [facility] QTc 390 ms [facility] P [place] -28 degrees [facility] R [place] 46 degrees [facility] T [place] 50 degrees [facility] Diagnosis Normal sinus rhythm with sinus arrhythmia Normal ECG When compared with ECG of 05-AUG-2024 23:21, Vent. rate has decreased BY 55 BPM Confirmed by BREANA VENTURA M.D ([id number]) on 08/07/2024 11:26:58 AM [facility] 08/06/2024 7:36 PM CDT 08/07/2024 11:26 AM CDT us Royal Weiss MD ECG ORDERABLES Final Res ult [facility] * (ABNORMAL) Differential, auto (08/06/2024 6:45 PM CDT) Pathologist [facility] Neutrophil abs 12.89(H) 1.50 - 6.50 K/cumm Imm gran abs 0.61(H) 0.00 - 0.10 K/cumm [facility] Lymphocyte abs 1.83 0.80 - 3.30 K/cumm [facility] Monocyte abs 1.52(H) 0.20 - 0.80 K/cumm [facility] Eosinophil abs 0.13 0.00 - 0.50 K/cumm [facility] Basophil abs 0.11(H) 0.00 - 0.10 K/cumm [facility] Neutrophil pct 75.4 % [facility] Comment: Interpretive Data Percent cell count reference ranges are not reported, since discordance with absolute values may lead to misinterpretation of CBC data. Current Interpretive Data was last revised on 2017. Imm gran pct 3.6 % [facility] Comment: Interpretive Data Percent cell count reference ranges are not reported, since discordance with absolute values may lead to misinterpretation of CBC data. Current Interpretive Data was last revised on 2017. Lymphocyte pct 10.7 % [facility] Comment: Interpretive Data Percent cell count reference ranges are not reported, since discordance with absolute values may lead to misinterpretation of CBC data. Current Interpretive Data was last revised on 2017. Monocyte pct 8.9 % [facility] Comment: Interpretive Data Percent cell count reference ranges are not reported, since discordance with absolute values may lead to misinterpretation of CBC data. Current Interpretive Data was last revised on 2017. Eosinophil pct 0.8 % [facility] Comment: Interpretive Data Percent cell count reference ranges are not reported, since discordance with absolute values may lead to misinterpretation of CBC data. Current Interpretive Data was last revised on 2017. Basophil pct 0.6 % [facility] Comment: Interpretive Data Percent cell count reference ranges are not reported, since discordance with absolute values may lead to misinterpretation of CBC data. Current Interpretive Data was last revised on 2017. Blood 08/06/2024 6:45 PM CDT 08/06/2024 7:38 PM CDT Royal Weiss MD LAB BLOOD ORDERABLES Florinda hanson Result [facility] [facility] [place] [address] * (ABNORMAL) CBC with auto differential (08/06/2024 6:45 PM CDT) WBC 17.09(H) 3.80 - 9.90 K/cumm Hgb 6.9(L) 11.9 - 15.5 g/dL [facility] Hct 19.5(L) 35.6 - 45.5 % [facility] Plt 289 150 - 400 K/cumm [facility] MPV 11.6 9.1 - 12.3 fL [facility] RBC 2.61(L) 3.90 - 5.20 M/cumm [facility] MCV 74.7(L) 81.3 - 96.4 fL [facility] MCH 26.4(L) 27.1 - 33.3 pg [facility] MCHC 35.4 32.3 - 35.7 g/dL [facility] RDW CV 17.5(H) 11.1 - 14.9 % [facility] RDW SD 46.9 35.7 - 48.1 fL [facility] NRBC abs 0.00 0.00 - 0.01 K/cumm [facility] Blood 08/06/2024 6:45 PM CDT 08/06/2024 7:38 PM CDT us Royal Weiss MD LAB BLOOD ORDERABLES Florinda hanson Result [facility] [place] [address] * TRANSTHORACIC ECHO (TTE) COMPLETE W DOPPLER/CF WO CONTRAST W BUBBLE (08/06/2024 4:54 PM CDT) LV EF 60-65 % CONS SCIMAGE Anatomical Region Laterality Modality Ultrasound 08/06/2024 3:24 PM CDT Narrative 08/06/2024 5:34 PM CDT [facility] [place] [address] Transthoracic Echocardiographic Report Patient Name: TIFFANY MILLER T : 1995 (28y 11m) Gender: F Study Date: 08/06/2024 03:24:38 PM Ht(Inch): 67 Wt(Lb): 169.97 BSA: 1.91 Woolen Suiting Shrinker: Timothy Gonzalez RDCS Location: [id number] Order Provider: ROYAL WEISS Heart Rate: 112 [...] Procedure Note Eric Leonard MD - 08/06/2024 [facility] Cardiac [place] [address] Transthoracic Echocardiographic Report Patient Name: TIFFANY MILLER T : 1995 (28y 11m) Gender: F Study Date: 08/06/2024 03:24:38 PM Ht(Inch): 67 Wt(Lb): 169.97 BSA: 1.91 Woolen Suiting Shrinker: Timothy Gonzalez [facility] Location: [id number] Order Provider:ROYAL WEISS Heart Rate: 112 BMI: [...] Eric Leonard M.D. 08/06/2024 5:33:46 PM CDT us Royal Weiss MD CV ECHO PROCEDURES Final Result * Transfuse RBC (08/06/2024 11:23 AM CDT) Blood us Royal Weiss MD BLOOD TRANSFUSION ORDERAB LES Final Result [facility] [place] [address] * Prepare RBC: 1 Units (08/06/2024 7:43 AM CDT) Product code [id number] Unit Number [id number] * [facility] Product Blood Type APOS [facility] Dispense Status PRESUMED TRANSFUSED [facility] Blood 08/06/2024 7:43 AM CDT 08/06/2024 7:43 AM CDT Narrative [facility] - 08/06/2024 9:01 PM CDT Are special requirements needed? (All products are leukoreduced and CMV- safe)- >No Date required:-[id number] LRRBC # of [id number] Reasons:-Hgb <7 g/dL} Royal Weiss MD BLOOD BANK PRODUCT ORDERA BLES Final Result Performing Organization Address [facility] Co de Phone Number [facility] Department [place] [address] * (ABNORMAL) Hemoglobin and hematocrit (08/06/2024 6:46 AM CDT) [facility] Hgb 6.4(C) 11.9 - 15.5 g/dL Comment:This result has been called to Sheyla Zaman RN by [id number] on 08/06/2024 07:28:25, and has been read back. Hct 19.1(L) 35.6 - 45.5 % [facility] Blood 08/06/2024 6:46 AM CDT 08/06/2024 6:55 AM CDT Royal Weiss MD LAB BLOOD ORDERABLES Florinda l Result Performing Organization Address [facility] Co de Phone Number [facility] [place] [address] * aPTT (08/06/2024 6:46 AM CDT) [facility] aPTT 33 28 - 38 sec Comment: Interpretive Data Heparin therapeutic range: 66.0 - 100.0 seconds. Range based on correlation with therapeutic heparin activity range of 0.3 - 0.7 Units/mL. Current interpretive data was last revised on 2023. Blood 08/06/2024 6:46 AM CDT 08/06/2024 7:12 AM CDT Royal Weiss MD LAB BLOOD ORDERABLES Florinda l Result Performing Organization Address [facility] Co de Phone Number [facility] [place] [address] * (ABNORMAL) Protime-INR (08/06/2024 6:46 AM CDT) PT 16.7(H) 9.7 - 13.0 sec INR 1.53(H) 0.90 - 1.20 [facility] Comment: Interpretive data Oral anticoagulant therapeutic ranges: Venous thromboembolism prophylaxis or treatment: 2.0-3.0 CARDIOLOGY Standard range: 2.0-3.0 High-intensity range: 2.5-3.5 Refer to indication-specific guidelines for appropriate target ranges for prosthetic heart valve replacement. Current interpretive data was last revised on 2019. Blood 08/06/2024 6:46 AM CDT 08/06/2024 7:12 AM CDT Royal Weiss MD LAB BLOOD ORDERABLES Florinda l Result Performing Organization Address City/[facility] Co de Phone Number [facility] [place] [address] * Fibrinogen (08/06/2024 6:46 AM CDT) Pathologist [facility] [place] Fibrinogen 372 170 - 400 mg/dL Blood 08/06/2024 6:46 AM CDT 08/06/2024 7:12 AM CDT Royal Weiss MD LAB BLOOD ORDERABLES Florinda l Result Performing Organization Address [facility] de Phone Number [facility] [place] [address] * hCG, blood, quantitative (08/06/2024 6:46 AM CDT) Pathologist [facility] hCG, quant <5.0 0.0 - 5.0 IUnits/L [...] ORDERABLES Florinda l Result Performing Organization Address [facility] de Phone Number [facility] [place] [address] * (ABNORMAL) Lactate dehydrogenase (LD) (08/06/2024 6:46 AM CDT) Lactate dehydrogenase (LDH) 339(H) 100 - 250 Units/L Blood 08/06/2024 6:46 AM CDT 08/06/2024 6:55 AM CDT Royal Weiss MD LAB BLOOD ORDERABLES Florinda l Result Performing Organization Address [facility] de Phone Number [facility] [place] [address] * (ABNORMAL) Haptoglobin (08/06/2024 6:46 AM CDT) Haptoglobin 325.0(H) 30.0 - 200.0 mg/dL Blood 08/06/2024 6:46 AM CDT 08/06/2024 6:55 AM CDT Royal Weiss MD LAB BLOOD ORDERABLES Florinda l Result Performing Organization Address [facility] de Phone Number [facility] [place] [address] * Oxyhemoglobin, central venous (08/06/2024 4:58 AM CDT) Oxyhemoglobin, CV 86.8 % Comment: Interpretive Data No reference range established. Current interpretive data was last revised 2019. Blood 08/06/2024 4:58 AM CDT 08/06/2024 5:34 AM CDT us Royal Weiss MD LAB BLOOD ORDERABLES Florinda l Result [facility] [place] [address] * Sepsis Lactate w/ Reflex (08/06/2024 4:58 AM CDT) Sepsis Lactate 1.6 0.7 - 2.0 mmol/L Blood 08/06/2024 4:58 AM CDT 08/06/2024 5:34 AM CDT us Dawn Mcmanus MD LAB BLOOD ORDERABLES Fin al Result Performing Organization Address [facility] Co de Phone Number [facility] Department [place] [address] * (ABNORMAL) eGFR (08/06/2024 4:58 AM CDT) [...] MD LAB BLOOD ORDERABLES Florinda hanson Result [facility] [place] [address] * (ABNORMAL) Differential, auto (08/06/2024 4:58 AM CDT) Neutrophil abs 18.99(H) 1.50 - 6.50 K/cumm Imm gran abs 1.08(H) 0.00 - 0.10 K/cumm [facility] Lymphocyte abs 1.55 0.80 - 3.30 K/cumm [facility] Monocyte abs 1.69(H) 0.20 - 0.80 K/cumm [facility] Eosinophil abs 0.17 0.00 - 0.50 K/cumm BANNERNER [facility] Basophil abs 0.13(H) 0.00 - 0.10 K/cumm BANNERNER [facility] Neutrophil pct 80.3 % [facility] Comment: Interpretive Data Percent cell count reference ranges are not reported, since discordance with absolute values may lead to misinterpretation of CBC data. Current Interpretive Data was last revised on 2017. Imm gran pct 4.6 % [facility] Comment: Interpretive Data Percent cell count reference ranges are not reported, since discordance with absolute values may lead to misinterpretation of CBC data. Current Interpretive Data was last revised on 2017. Lymphocyte pct 6.6 % [facility] Comment: Interpretive Data Percent cell count reference ranges are not reported, since discordance with absolute values may lead to misinterpretation of CBC data. Current Interpretive Data was last revised on 2017. Monocyte pct 7.2 % [facility] Comment: Interpretive Data Percent cell count reference ranges are not reported, since discordance with absolute values may lead to misinterpretation of CBC data. Current Interpretive Data was last revised on 2017. Eosinophil pct 0.7 % [facility] Comment: Interpretive Data Percent cell count reference ranges are not reported, since discordance with absolute values may lead to misinterpretation of CBC data. Current Interpretive Data was last revised on 2017. Basophil pct 0.6 % [facility] Comment: Interpretive Data Percent cell count reference ranges are not reported, since discordance with absolute values may lead to misinterpretation of CBC data. Current Interpretive Data was last revised on 2017. Blood 08/06/2024 4:58 AM CDT 08/06/2024 5:39 AM CDT Royal Weiss MD LAB BLOOD ORDERABLES Florinda l Result Performing Organization Address [facility] de Phone Number [facility] [place] [address] * HIV 1/2 Antibody plus p24 Antigen Blood (08/06/2024 4:58 AM CDT) [facility] HIV 1/2 ab + p24 ag Nonreactive Nonreactive Comment:Nonreactive for HIV- 1 antigen and HIV-1/HIV-2 antibodies. No laboratory evidence of HIV infection. If acute HIV infection is suspected, consider testing for HIV-1 RNA. Current interpretive data was last revised on 21. Blood 08/06/2024 4:58 AM CDT 08/06/2024 5:38 AM CDT us Royal Weiss MD LAB MICROBIOLOGY - GENERA L ORDERABLES Final Result Performing Organization Address [facility] de Phone Number [facility] [place] [address] * (ABNORMAL) CBC with auto differential (08/06/2024 4:58 AM CDT) [facility] WBC 23.61(H) 3.80 - 9.90 K/cumm Hgb 6.6(L) 11.9 - 15.5 g/dL [facility] Hct 19.7(L) 35.6 - 45.5 % [facility] Plt 280 150 - 400 K/cumm [facility] MPV 11.8 9.1 - 12.3 fL [facility] RBC 2.63(L) 3.90 - 5.20 M/cumm [facility] MCV 74.9(L) 81.3 - 96.4 fL [facility] MCH 25.1(L) 27.1 - 33.3 pg [facility] MCHC 33.5 32.3 - 35.7 g/dL [facility] RDW CV 17.7(H) 11.1 - 14.9 % [facility] RDW SD 47.1 35.7 - 48.1 fL [facility] NRBC abs 0.00 0.00 - 0.01 K/cumm [facility] Morphologic Screen Results confirmed by manual morphology review. [facility] Blood 08/06/2024 4:58 AM CDT 08/06/2024 5:39 AM CDT Royal Weiss MD LAB BLOOD ORDERABLES Edit ed Result - Final Performing Organization Address [facility]/ZIP Co de Phone Number [facility] [place] [address] * Lactate, whole blood (08/06/2024 4:58 AM CDT) [facility] Lactate, bld 1.6 0.7 - 2.0 mmol/L Blood 08/06/2024 4:58 AM CDT 08/06/2024 5:34 AM CDT Royal Weiss MD LAB BLOOD ORDERABLES Florinda l Result Performing Organization Address [facility] de Phone Number [facility] [place] [address] * (ABNORMAL) Hepatitis panel, acute Blood (08/06/2024 4:58 AM CDT) [facility] Hep A IgM Nonreactive Nonreactive Hep B core IgM Nonreactive Nonreactive [facility] Hep C Ab Reactive(A) Nonreactive [facility] Comment: Reactive for HCV antibodies. This may represent current or past HCV infection. Supplemental molecular testing will be automatically performed to determine current infection status in accordance with current CDC screening recommendations. Current interpretive data was last revised on 21 HepBsAg Nonreactive Nonreactive [facility] Blood 08/06/2024 4:58 AM CDT 08/06/2024 5:38 AM CDT Royal Weiss MD LAB MICROBIOLOGY - GENERA L ORDERABLES Final Result Performing Organization Address [facility] de Phone Number [facility] [place] [address] * Hepatitis C (HCV) RNA PCR, quantitative Blood (08/06/2024 4:58 AM CDT) [facility] HCV RNA result Not Detected [facility] Comment: The quantifiable range of this assay is 15 IU/mL to 100,000,000 IU/mL (1.18 log IU/mL to 8.00 log IU/mL). Testing was performed by the PRAMOD 6800 HCV Test ([employer] [facility] Testing performed at [facility] Current Interpretive Data was last revised on 2020 Blood 08/06/2024 4:58 AM CDT 08/06/2024 5:44 AM CDT Royal Weiss MD LAB MICROBIOLOGY - GENERA L ORDERABLES Final Result Performing Organization Address [facility] de Phone Number [facility] [place] [address] [facility] * RPR Blood (08/06/2024 4:58 AM CDT) [facility] RPR Nonreactive Nonreactive Blood 08/06/2024 4:58 AM CDT 08/06/2024 5:38 AM CDT Royal Weiss MD LAB MICROBIOLOGY - GENERA L ORDERABLES Final Result Performing Organization Address [facility] de Phone Number [facility] [place] [address] * Type and screen (08/06/2024 4:58 AM CDT) Marybeth, indirect Negative ABO Rh A Positive [facility] Blood 08/06/2024 4:58 AM CDT 08/06/2024 5:50 AM CDT Narrative [facility] - 08/06/2024 6:55 AM CDT Has the patient had Daratumumab or Isatuximab in the past 6 months?->Unknown Jose Rafael Lara Chi, MD LAB BLOOD BANK TEST ORDER MARTINEZ Final Result Performing Organization Address City/[facility]/ZIP Co de Phone Number [facility] [place] [address] * (ABNORMAL) Phosphorus (08/06/2024 4:58 AM CDT) Pathologist [facility] Phosphorus, pl 7.0(H) 2.3 - 4.5 mg/dL Blood 08/06/2024 4:58 AM CDT 08/06/2024 5:39 AM CDT Royal Weiss MD LAB BLOOD ORDERABLES Florinda l Result Performing Organization Address [facility] Co de Phone Number [facility] [place] [address] * Magnesium (08/06/2024 4:58 AM CDT) Pathologist [facility] Magnesium 2.2 1.4 - 2.5 mg/dL Blood 08/06/2024 4:58 AM CDT 08/06/2024 5:39 AM CDT Royal Weiss MD LAB BLOOD ORDERABLES Florinda l Result Performing Organization Address City/[facility] Co de Phone Number [facility] [place] [address] * (ABNORMAL) Basic metabolic panel (08/06/2024 4:58 AM CDT) Sodium 127(L) 135 - 145 mmol/L Potassium, pl 3.7 3.3 - 4.9 mmol/L [facility] Chloride 95(L) 97 - 110 mmol/L [facility] CO2 21(L) 22 - 32 mmol/L [facility] Anion gap 11 2 - 15 mmol/L [facility] BUN 54(H) 6 - 25 mg/dL [facility] Creatinine 4.05(H) 0.60 - 1.10 mg/dL [facility] Glucose 119 70 - 199 mg/dL [facility] Comment: Interpretive Data Fasting glucose >/= [...] 2022. Calcium 7.0(L) 8.5 - 10.3 mg/dL [facility] Blood 08/06/2024 4:58 AM CDT 08/06/2024 5:39 AM CDT us Royal Weiss MD LAB BLOOD ORDERABLES Florinda l Result [facility] [place] [address] * [place] INSJ NON-TUNNELED CENTRAL VENOUS CATH AGE 5 YR/> (08/06/2024 4:18 AM CDT) Narrative Jose Rafael Montes MD - 08/06/2024 4:18 AM CDT Jose Rafael Montes MD 08/06/2024 11:12 AM Central Line Insertion Date/Time: 08/06/2024 4:18 AM Performed by: Lauren Garg MD Authorized by: Lauren Garg MD Clarence Protocol: RN Notified of Procedure: yes Informed consent: Risks, benefits, alternatives discussed and patient/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 agrees and accepts Patient's stated name/ [...] by: Gwendolyn Galdamez M.D. Royal Weiss MD IMG XR PROCEDURES Final R esult * US Kidney Complete (08/06/2024 3:20 AM CDT) Anatomical Region Laterality Modality Kidney N/A Ultrasound 08/06/2024 6:36 AM CDT Impressions 08/06/2024 6:36 AM CDT 1. Nephromegaly with increased echogenicity consistent with renal parenchymal disease. 2. Left pleural effusion. Electronically signed by: Jaya rOozco M.D. Narrative 08/06/2024 6:36 AM CDT EXAMINATION: [...] by: Jaya Orozco M.D. Royal Weiss MD IMG US PROCEDURES Final R esult * ECG 12 lead (08/05/2024 11:21 PM CDT) Ventricular Rate EKG/Min 125 BPM [facility] Atrial Rate 125 BPM [facility] FL-Interval (MSEC) 122 ms [facility] QRS-Interval (MSEC) 70 ms [facility] QT-Interval (MSEC) 308 ms [facility] QTc 444 ms [facility] P [place] 54 degrees [facility] R [place] 38 degrees [facility] T [place] 36 degrees [facility] Diagnosis Sinus tachycardia Possible Left atrial enlargement Nonspecific ST abnormality Abnormal ECG No previous ECGs available Confirmed by HAJA CORREA M.D ([id number]) on 08/06/2024 11:01:34 AM [facility] 08/05/2024 11:2 1 PM CDT 08/06/2024 11:01 AM CDT Jose Rafael Lara Chi, MD ECG ORDERABLES Final Res ult [facility] * [place] CRITICAL CARE ILL/INJURED PATIENT INIT 30-74 MIN (08/05/2024 10:39 PM CDT) Alli Olivarez MD - 08/05/2024 10:39 PM CDT Alli [...] IN CLINIC/BEDSIDE ORDERAB LES Final Result * [place] ARTL CATHJ/CANNULJ MNTR/TRANSFUSION SPX PRQ (08/05/2024 10:18 PM CDT) Alli Olivarez MD - 08/05/2024 10:18 PM CDT Alli Matute MD 08/05/2024 10:36 PM Arterial line Date/Time: 08/05/2024 10:18 PM Performed by: Alex Silveira MD Authorized by: Amando Briggs MD Clarence Protocol: RN Notified of Procedure: yes Informed [...] Fentanyl Confirmation, Urine (08/05/2024 9:25 PM CDT) Pathologist [facility] [place] Fentanyl Conf, Ur Confirmed Positive(A) Cutoff 0.3ng/mL Acetylfentanyl Conf, Ur Confirmed Positive(A) Cutoff 1 ng/mL [facility] Acrylfentanyl Conf, Ur Does Not Confirm Cutoff 1 ng/mL [facility] Furanylfentanyl Conf, Ur Does Not Confirm Cutoff 1 ng/mL [facility] Fentanyl Metabolite (Norfentanyl) Conf, Ur Confirmed Positive(A) CutOff 5 ng/mL [facility] Xylazine MS Confirmed Positive(A) Cutoff 1 ng/mL [facility] Comment: Interpretive Data This test detects the presence or absence of drug compounds using LC Tandem mass spectrometry and is not intended to assess compliance with prescribed medications. While this test is highly specific, false positive and false negative results may occur in very rare circumstances. Contact the laboratory for consultation, if needed. Performance characteristics were determined by the [facility] in a manner consistent with CLIA requirement and has not been cleared or approved by the U.S. Food and Drug Administration. Current interpretive data was last revised 2020. Urine 08/05/2024 9:25 PM CDT 08/05/2024 9:52 PM CDT us Brielle Monique MD LAB URINE ORDERABLES Fin al Result [facility] [place] [address] * (ABNORMAL) Drugs of Abuse Screen, Urine [...] 2022. Barbiturates, ur Not Detected CutOff 200ng/mL [facility] Comment: Interpretive Data - Barbiturates: Samples containing greater than 200 ng/mL secobarbital or other cross-reacting barbiturate compounds are reported as positive. False positive and false negative results are possible. Confirmatory testing required for definitive results. Current Interpretive Data was last reviewed 2022. Benzodiazepines, ur Screen Positive, presumptive (A) CutOff 100ng/mL [facility] Comment: Interpretive Data - Benzodiazepines: Samples containing greater than 100 ng/mL nordiazepam or other cross-reacting compounds are reported as positive. False positive and false negative results are possible. Confirmatory testing required for definitive results. Current Interpretive Data was last reviewed 2022. Cannabinoids, ur Screen Positive, presumptive (A) CutOff 50 ng/mL [facility] Comment: Interpretive Data - Cannabinoids: Samples containing greater than 50 ng/mL delta-9 THC -COOH or other cross- reacting compounds are reported as positive. False positive and false negative results are possible. Confirmatory testing required for definitive results. Current Interpretive Data was last reviewed 2022. Cocaine, ur Not Detected CutOff 150ng/mL [facility] Comment: Interpretive Data - Cocaine: Samples containing greater than 150 ng/mL benzoylecgonine or other cross- reacting compounds are reported as positive. False positive and false negative results are possible. Confirmatory testing required for definitive results. Current Interpretive Data was last reviewed 2022. Fentanyl, Ur Screen Positive, presumptive (A) CutOff 5 ng/mL [facility] Comment: Interpretive Data - Fentanyl: Samples containing greater than 5 ng/mL norfentanyl, fentanyl, or other cross-reacting fentanyl compounds are reported as positive. False positive and false negative results are possible. Confirmatory testing required for definitive results. Current Interpretive Data was last reviewed 2023. Methadone, ur Not Detected CutOff 300ng/mL [facility] Comment: Interpretive Data - Methadone: Samples containing greater than 300 ng/mL d,l-methadone or other cross-reacting compounds are reported as positive. False positive and false negative results are possible. Confirmatory testing required for definitive results. Current Interpretive Data was last reviewed 2022. Opiates, ur Not Detected CutOff 300ng/mL [facility] Comment: Interpretive Data - Opiates: Samples containing greater than 300 ng/mL morphine or other cross-reacting compounds are reported as positive. False positive and false negative results are possible. Confirmatory testing required for definitive results. Current Interpretive Data was last reviewed 2022. Oxycodone, ur Not Detected CutOff 100ng/mL [facility] Comment: Interpretive Data - Oxycodone: Samples containing greater than 100 ng/mL oxycodone or other cross-reacting compounds are reported as positive. False positive and false negative results are possible. Confirmatory testing required for definitive results. Current Interpretive Data was last reviewed 2022. Phencyclidine, ur Not Detected CutOff 25 ng/mL [facility] Comment: Interpretive Data - Phencyclidine: Samples containing greater than 25 ng/mL phencyclidine or other cross-reacting compounds are reported as positive. False positive and false negative results are possible. Confirmatory testing required for definitive results. Current Interpretive Data was last reviewed 2022. Urine Creatinine 198 mg/dL [facility] Comment: Interpretive Data Urine Creatinine: < 10 mg/dL is extremely dilute = or > 10 but < 20 mg/dL is dilute = or > 20 mg/dL is normal Current Interpretive Data was last revised on 2017. Urine 08/05/2024 9:25 PM CDT 08/05/2024 9:52 PM CDT Narrative [facility] - 08/05/2024 10:22 PM CDT Drug of Abuse screening is performed by immunoassay for medical purposes only. This is not to be used for Pain Management purposes. If Detected, confirmation testing will be performed for Amphetamines, Cocaine, Fentanyl, Methadone, Opiates, Oxycodone or Phencyclidine. Brielle Monique MD LAB URINE ORDERABLES Fin al Result Performing Organization Address City/[facility]/ZIP Co de Phone Number [facility] Department [place] [address] * (ABNORMAL) Urinalysis reflex to microscopic and culture Urine (08/05/2024 9:25 PM CDT) Color, ur Cherise Yellow Clarity, ur Turbid(A) Clear [facility] Specific gravity, ur 1.024 1.003 - 1.030 [facility] pH, urine 6.0 [facility] Comment: Interpretive Data U rine pH is affected by diet, medications, systemic acid-base disturbances, and renal tubular function. pH may affect urinary stone formation. For example, urine pH below 6.0 may help reduce the tendency for calcium phosphate stones and pH greater than 6.0 may reduce the tendency for uric acid stone formation. Source: [facility] Current Interpretive Data was last revised on 2017 Protein, ur ql 3+(A) Negative [facility] Glucose, ur ql Trace(A) Negative [facility] Ketones, ur Negative Negative [facility] Bilirubin, ur Negative Negative [facility] Blood, ur 3+(A) Negative [facility] Urobilinogen, ur <2.0 <2.0 mg/dL [facility] Nitrite, ur Negative Negative [facility] Leukocyte esterase, ur 3+(A) Negative [facility] UA reflex comment Reflex to microscopic UA will be performed. [facility] Urine 08/05/2024 9:25 PM CDT 08/05/2024 9:32 PM CDT Brielle Monique MD LAB MICROBIOLOGY - GENER AL ORDERABLES Final Result Performing Organization Address [facility]/ZIP Co de Phone Number [facility] Department [place] [address] * (ABNORMAL) Amphetamine Confirmation, Urine (08/05/2024 9:25 PM CDT) Amphetamine Conf, Ur Confirmed Positive(A) CutOff 150ng/mL Methamphetamine Conf, Ur Confirmed Positive(A) CutOff 150ng/mL [facility] MDA Conf, Ur Does Not Confirm CutOff 150ng/mL [facility] MDMA Conf, Ur Does Not Confirm CutOff 50 ng/mL [facility] MDEA Conf, Ur Does Not Confirm CutOff 150ng/mL [facility] MBDB Conf, Ur Does Not Confirm CutOff 150ng/mL [facility] Comment: Interpretive Data This test detects the presence or absence of drug compounds using LC Tandem mass spectrometry. While this test is highly specific, false positive and false negative results may occur in very rare circumstances. Contact the laboratory for consultation, if needed. Performance characteristics [facility] determined [facility] the [facility] in a manner consistent with CLIA requirement and has not been cleared or approved by the U.S. Food and Drug Administration. Current interpretive data was last revised on 2020. Urine 08/05/2024 9:25 PM CDT 08/05/2024 9:52 PM CDT Brielle Monique MD LAB URINE ORDERABLES Fin al Result [facility] Department [place] [address] * (ABNORMAL) Urinalysis, microscopic only (08/05/2024 9:25 PM CDT) WBC, ur >50(A) 0 - 5 /HPF RBC, ur >50(A) 0 - 2 /HPF [facility] Epithelial cells, squamous, ur 6-10(A) 0 - 5 /HPF [facility] Comment:Suggestive of contam ination. Consider recollection by clean catch. Bacteria, ur 4+(A) [facility] Culture Reflex Comment Reflex to urine culture will be performed. [facility] Urine 08/05/2024 9:25 PM CDT 08/05/2024 9:32 PM CDT Brielle Monique MD LAB URINE ORDERABLES Fin al Result Performing Organization Address [facility] Co de Phone Number [facility] [place] [address] * Urine culture Urine (08/05/2024 9:25 PM CDT) Report Final Report: Growth indicative of contamination with periurethral melissa. Please submit a new specimen with special attention given to the collection process and to prompt transport to the laboratory. Organism GROWTH INDICATES CONTAM WITH PERIURETHRAL MELISSA. [facility] Urine 08/05/2024 9:25 PM CDT 08/05/2024 11:10 PM CDT Narrative [facility] - 08/07/2024 11:38 AM CDT Urine culture reflexed based upon urinalysis results. Testing performed by [facility] Microbiology Laboratory ([phone]) Brielle Monique MD LAB MICROBIOLOGY - GENER AL ORDERABLES Final Result Performing Organization Address [facility] [place] [address] * (ABNORMAL) Sepsis Lactate w/ Reflex (08/05/2024 8:51 PM CDT) Sepsis Lactate 9.0(C) 0.7 - 2.0 mmol/L Blood 08/05/2024 8:51 PM CDT 08/05/2024 8:56 PM CDT Dawn Mcmanus MD LAB BLOOD ORDERABLES Fin al Result Performing Organization Address [facility] Co de Phone Number [facility] [place] [address] * Critical Result Callback Chemistry (08/05/2024 8:51 PM CDT) Date Notified [id number] Time Notified 2101 AR[facility]IS [facility] TestName Sepsis Lactate [facility] Called/Read Back Brielle [facility]F [facility] Credentials MD SELF [facility] Called By SB ARAMIS [facility] Blood 08/05/2024 8:51 PM CDT 08/05/2024 8:56 PM CDT us Dawn Mcmanus MD LAB BLOOD ORDERABLES Fin al Result [facility] [place] [address] * (ABNORMAL) Troponin I high-sensitivity 2-hour (08/05/2024 7:44 PM CDT) Trop I hs 67(H) <=17 ng/L Comment: Interpretive Data For further hscTnI resources including the diagnostic algorithm and an aid in interpretation, copy and paste this link: https://bjhlab.testcatalog.org/show/hsTrop-1 Current Interpretive Data last revised 2019. Trop I hs delta -10(C) ng/L [facility] Trop I hs interp Significa nt(C) [facility] Blood 08/05/2024 7:44 PM CDT 08/05/2024 8:04 PM CDT us Dawn Mcmanus MD LAB BLOOD ORDERABLES Fin al Result [facility] [place] [address] * Critical result callback Cardio chemistry (08/05/2024 7:44 PM CDT) Date Notified [id number] Time Notified 2049 AR[facility]IS [facility] Test name Trop I hs AR[facility]IS [facility] Called/Read Back Laurel S[facility] Credentials [employer]ACH[employer]EDER [facility] Called By SB ARAMIS [facility] Blood 08/05/2024 7:44 PM CDT 08/05/2024 8:04 PM CDT us Dawn Mcmanus MD LAB BLOOD ORDERABLES Fin al Result [facility] [place] [address] * (ABNORMAL) Troponin I high-sensitivity series (baseline, 2hr, 4hr, 6hr) (08/05/2024 6:02 PM CDT) Pathologist [facility] [place] Trop I hs 77(H) <=17 ng/L Comment: Interpretive Data For further hscTnI resources including the diagnostic algorithm and an aid in interpretation, copy and paste this link: https://bjhlab.testcatalog.org/show/hsTrop-[email or web address] Current Interpretive Data last revised 2019. Blood 08/05/2024 6:02 PM CDT 08/05/2024 6:15 PM CDT us Dawn Mcmanus MD LAB BLOOD ORDERABLES Fin al Result Performing Organization Address City/[facility]/ZIP Co de Phone Number [facility] [place] [address] * (ABNORMAL) Sepsis Lactate w/ Reflex (08/05/2024 6:02 PM CDT) Pathologist [facility] [place] Sepsis Lactate 2.6(H) 0.7 - 2.0 mmol/L Blood 08/05/2024 6:02 PM CDT 08/05/2024 6:10 PM CDT us Dawn Mcmanus MD LAB BLOOD ORDERABLES Fin al Result [facility] [place] [address] * (ABNORMAL) eGFR (08/05/2024 6:02 PM CDT) Pathologist [facility] [place] eGFR 16(L) >=60 mL/min/1. 73 m2 Comment: [...] MD LAB BLOOD ORDERABLES Fin al Result [facility] Department [place] [address] * (ABNORMAL) Differential, auto (08/05/2024 6:02 PM CDT) Pathologist [facility] Neutrophil abs 14.93(H) 1.50 - 6.50 K/cumm Imm gran abs 0.68(H) 0.00 - 0.10 K/cumm [facility] Lymphocyte abs 1.00 0.80 - 3.30 K/cumm [facility] Monocyte abs 0.44 0.20 - 0.80 K/cumm [facility] Eosinophil abs 0.08 0.00 - 0.50 K/cumm [facility] Basophil abs 0.06 0.00 - 0.10 K/cumm [facility] Neutrophil pct 86.8 % [facility] Comment: Interpretive Data Percent cell count reference ranges are not reported, since discordance with absolute values may lead to misinterpretation of CBC data. Current Interpretive Data was last revised on 2017. Imm gran pct 4.0 % [facility] Comment: Interpretive Data Percent cell count reference ranges are not reported, since discordance with absolute values may lead to misinterpretation of CBC data. Current Interpretive Data was last revised on 2017. Lymphocyte pct 5.8 % [facility] Comment: Interpretive Data Percent cell count reference ranges are not reported, since discordance with absolute values may lead to misinterpretation of CBC data. Current Interpretive Data was last revised on 2017. Monocyte pct 2.6 % [facility] Comment: Interpretive Data Percent cell count reference ranges are not reported, since discordance with absolute values may lead to misinterpretation of CBC data. Current Interpretive Data was last revised on 2017. Eosinophil pct 0.5 % [facility] Comment: Interpretive Data Percent cell count reference ranges are not reported, since discordance with absolute values may lead to misinterpretation of CBC data. Current Interpretive Data was last revised on 2017. Basophil pct 0.3 % [facility] Comment: Interpretive Data Percent cell count reference ranges are not reported, since discordance with absolute values may lead to misinterpretation of CBC data. Current Interpretive Data was last revised on 2017. Blood 08/05/2024 6:02 PM CDT 08/05/2024 6:15 PM CDT us Dawn Mcmanus MD LAB BLOOD ORDERABLES Fin al Result [facility] Department [place] [address] * Thyroid Function [place] (08/05/2024 6:02 PM CDT) TSH 3.96 0.30 - 4.20 mcIUnit/mL Blood 08/05/2024 6:02 PM CDT 08/05/2024 6:15 PM CDT us Dawn Mcmanus MD LAB BLOOD ORDERABLES Fin al Result Performing Organization Address [facility] Co de Phone Number [facility] Department [place] [address] * (ABNORMAL) CBC with auto differential (08/05/2024 6:02 PM CDT) Pathologist [facility] [place] WBC 17.19(H) 3.80 - 9.90 K/cumm Hgb 8.6(L) 11.9 - 15.5 g/dL [facility] Hct 26.0(L) 35.6 - 45.5 % [facility] Plt 241 150 - 400 K/cumm [facility] MPV 11.1 9.1 - 12.3 fL [facility] RBC 3.41(L) 3.90 - 5.20 M/cumm [facility] MCV 76.2(L) 81.3 - 96.4 fL [facility] MCH 25.2(L) 27.1 - 33.3 pg [facility] MCHC 33.1 32.3 - 35.7 g/dL [facility] RDW CV 17.5(H) 11.1 - 14.9 % [facility] RDW SD 47.7 35.7 - 48.1 fL [facility] NRBC abs 0.00 0.00 - 0.01 K/cumm [facility] Blood 08/05/2024 6:02 PM CDT 08/05/2024 6:15 PM CDT us Dawn Mcmanus MD LAB BLOOD ORDERABLES Fin al Result [facility]IS [facility] [place] [address] * (ABNORMAL) Blood culture Blood Arterial line (08/05/2024 6:02 PM CDT) Pathologist [facility] [place] Direct Specimen Exam Stain: Gram Positive Cocci in clusters Time to culture positivity (aerobic media): 10.3 hours Time to culture positivity (anaerobic media): 13.1 hours Report Final Report: Staphylococcus aureus For susceptibility results, refer to accession number [id number] on the blood culture from 08/05/2024 Staphylococcus aureus #2 For susceptibility results, refer to accession number [id number] on the blood culture from 08/05/2024 (.) AR[facility]IS [facility] Organism STAPHYLOCOCCUS AUREUS [facility] Organism STAPHYLOCOCCUS AUREUS [facility] Blood (Arterial line) 08/05/2024 6:02 PM CDT 08/05/2024 6:12 PM CDT Narrative [facility] - 08/09/2024 9:31 AM CDT Third [...] performance characteristics have been verified by the [facility] Microbiology Laboratory. For questions about this culture, contact the Microbiology Laboratory at [phone]. Interpretive data was last revised on 24. us Dawn Mcmanus MD LAB MICROBIOLOGY - [facility] AL ORDERABLES Final Result AR[facility]IS [facility] Department [place] [address] * (ABNORMAL) Blood culture Blood Peripheral (08/05/2024 6:02 PM CDT) Direct Specimen Exam Stain: Gram Positive Cocci in clusters Time to culture positivity (aerobic media): 10.4 hours Time to culture positivity (anaerobic media): 12.7 hours Report Final Report: Staphylococcus aureus For susceptibility results, refer to accession number [id number] on the blood culture from 08/05/2024 Staphylococcus aureus #2 For susceptibility results, refer to accession number [id number] on the blood culture from 08/05/2024 (.) ARAMIS [facility] Organism STAPHYLOCOCCUS AUREUS [facility] Organism STAPHYLOCOCCUS AUREUS [facility] Blood (Peripheral) 08/05/2024 6:02 PM CDT 08/05/2024 6:13 PM CDT Narrative [facility] - 08/09/2024 1:18 PM CDT From [...] performance characteristics have been verified by the [facility]biology Laboratory. For questions about this culture, contact the Microbiology Laboratory at [phone]. Interpretive data was last revised on 24. us Dawn Mcmanus MD LAB MICROBIOLOGY - GENER AL ORDERABLES Final Result [facility] Department [place] [address] * (ABNORMAL) Blood culture Blood Peripheral (08/05/2024 6:02 PM CDT) Direct Specimen Exam Stain: Gram Positive Cocci in clusters Time to culture positivity (aerobic media): 10.2 hours Time to culture positivity (anaerobic media): 12.7 hours Notification of: Gram Positive Cocci in clusters called to and read back by: Lauren Raya MD ([phone]) on 08/06/2024 04:55:17 by: Morgan Mehta MT Direct Specimen Exam Molecular Analysis: Methicillin-resist ant Staphylococcus aureus (MRSA) detected by the [employer] BCID-GP panel. This test does not exclud the possibility of a mixed bacterial infection. Notification of: Methicillin-resist ant Staphylococcus aureus (MRSA) called to and read back by: Dr. Samuel ([phone]) on 08/06/2024 06:53:19 by: Morgan Mehta MT [facility] Report Final Report: Staphylococcus aureus Methicillin resistant (MRSA) by penicillin binding protein 2a (PBP2a) testing. Staphylococcus aureus #2 Methicillin resistant (MRSA) by penicillin binding protein 2a (PBP2a) testing. (.) ARAMIS [facility] Organism STAPHYLOCOCCUS AUREUS [facility] Organism STAPHYLOCOCCUS AUREUS [facility] Blood (Peripheral) 08/05/2024 6:02 PM CDT 08/05/2024 6:13 PM CDT Narrative [facility] - 08/09/2024 1:18 PM CDT Draw Blood [...] performance characteristics have been verified by the [facility]biology Laboratory. For questions about this culture, contact the Microbiology Laboratory at [phone]. Interpretive data was last revised on 24. [...] (JAMIL) INTERPRETATIO N Resistant Staphylococcus aureus Ceftriaxone (JAIML) INTERPRETATIO N Resistant Staphylococcus aureus Daptomycin (JAMIL) [...] aureus Ceftriaxone (JAMIL) INTERPRETATIO N Resistant us Dawnmarisol Mcmanus MD LAB MICROBIOLOGY - GENER AL ORDERABLES Final Result [facility] Department [place] [address] * (ABNORMAL) Erythrocyte sedimentation rate (08/05/2024 6:02 PM CDT) Erythrocyte sedimentation rate 104(H) 1 - 20 mm/hr Blood 08/05/2024 6:02 PM CDT 08/05/2024 6:15 PM CDT Dawn Mcmanus MD LAB BLOOD ORDERABLES Fin al Result Performing Organization Address [facility] de Phone Number [facility] [place] [address] * (ABNORMAL) CRP (acute phase) (08/05/2024 6:02 PM CDT) Pathologist [facility] [place] CRP 282.7(H) <=10.0 mg/L Blood 08/05/2024 6:02 PM CDT 08/05/2024 6:15 PM CDT Dawn Mcmanus MD LAB BLOOD ORDERABLES Fin al Result Performing Organization Address [facility] Phone Number [facility] [place] [address] * (ABNORMAL) Blood gas, venous (08/05/2024 6:02 PM CDT) Pathologist [facility] [place] pH, Venous 7.35 7.32 - 7.43 PCO2, Venous 35(L) 40 - 50 mmHg [facility] PO2, Venous 22 mmHg [facility] Comment: Interpretive Data No Reference Range Established Current Interpretive Data was last revised on 2017. HCO3 Venous, Calculated 20 20 - 30 mmol/L [facility] BE, venous -6 mmol/L [facility] Comment: Interpretive Data No Reference Range Established Current Interpretive Data was last revised on 2017. Blood 08/05/2024 6:02 PM CDT 08/05/2024 6:10 PM CDT Dawn Mcmanus MD LAB BLOOD ORDERABLES Fin al Result Performing Organization Address [facility] de Phone Number [facility] [place] [address] * (ABNORMAL) Comprehensive metabolic panel (08/05/2024 6:02 PM CDT) Sodium 125(L) 135 - 145 mmol/L Potassium, pl 3.4 3.3 - 4.9 mmol/L [facility] Chloride 92(L) 97 - 110 mmol/L [facility] CO2 20(L) 22 - 32 mmol/L [facility] Anion gap 13 2 - 15 mmol/L [facility] BUN 48(H) 6 - 25 mg/dL [facility] Creatinine 3.84(H) 0.60 - 1.10 mg/dL [facility] Glucose 107 70 - 199 mg/dL [facility] Comment: Interpretive Data Fasting glucose >/= [...] 2022. Calcium 7.4(L) 8.5 - 10.3 mg/dL [facility] Bilirubin, total 1.0 0.1 - 1.2 mg/dL [facility] Protein, pl 8.5 6.5 - 8.5 g/dL [facility] Albumin 2.1(L) 3.5 - 5.0 g/dL [facility] Alk phos 210(H) 40 - 130 Units/L [facility] ALT 21 7 - 45 Units/L [facility] AST 43 10 - 45 Units/L [facility] Blood 08/05/2024 6:02 PM CDT 08/05/2024 6:15 PM CDT us Dawn Mcmanus MD LAB BLOOD ORDERABLES Fin al Result [facility] Department [place] [address] * [place] CRITICAL CARE ILL/INJURED PATIENT INIT 30-74 MIN [...] ECG 12-LEAD (08/05/2024 5:53 PM CDT) Narrative [facility] - 08/05/2024 5:53 PM CDT Amando Briggs [...] Comments: Moderate risk Amando Briggs MD 08/05/24 9470 Amando Briggs MD ECG ORDERABLES Final Res ult MUSE [facility] * Pap with reflex to High Risk HPV (08/11/2020 12:37 PM CDT) Pap test 08/11/2020 12:3 7 PM CDT 08/11/2020 3:10 PM CDT Narrative 08/18/2020 1:59 PM CDT [facility] results best viewed via link to PDF [facility] [place] [address] CYTOPATHOLOGY REPORT FINAL Patient Name: TIFFANY MILLER Gender: F : 1995 (Age: 24) Address: [address] [place] [address] Hospital #: [id number] Service: Gynecology Location: [facility] Patient Type: [facility] Ancillary Taken: 08/11/2020 Received: 08/11/2020 Accessioned: [...] determined by the Surgical Pathology Department at [facility] as part of an ongoing quality assurance practice manager program and in compliance with federally mandated [...] determined by the Surgical Pathology Department of [facility]. It has not been cleared or approved by the U. S. Food and Drug Administration. Tiffany Reddy MD PhD LAB CYTOLOGY ORDERAB LES Final Result from Last 3 Months or Most Recently Relevant to Health Maintenance
--- OUTSIDE RECORDS SUMMARY | 2024-10-08 13:42 | XMS_ITS | Continuity of Care Document ---
Author Organization [facility] Address [address] [place] [address] Phone Care Team Providers Care Chief Communications Officer Name Role Phone Martin Daniel MD Unavailable Unavailable Allergies, Adverse Reactions, Alerts Substance Reaction Status Criticality No Known Allergies Active No Inform ation Medications Medication Instructions Dosage Effective Dates (start - stop) Status Comments triamcinolone acetonide 0.5 % Ointment apply by topical route 2 times every day a thin layer to the affected area(s) 0.00 - Active disp 80 gm Procedures Procedure Date PREV VISIT, NEW, AGE 12-17 Advance Directives Directive Yes / No Effective Date File Name No Information Encounters Encounter Description Practice Location Reason(s) For Visit Diagnoses Date Provider Providers Copied on Encounter PREV VISIT, NEW, AGE 12-17 [facility], [address] [place] [address], [id number], tel:[phone] [facility] PHysical (chief complaint) Routine Medical ExamRoutine Medical Exam Fredy Salazar. [address] [place], [place], [id number], [place]. tel:[phone] Family History Family Member Type Diagnosis Age At Onset Mother Problem (finding) Alive and well Father Problem (finding) Hyperlipidemia Payers Payer name Insurance type Covered republican ID Authoriza tion(s) No Information Social History Type Description Quantity Date Captured Comments Alcohol Use Details Unknown Caffeine Use Details Unknown Tobacco Use Status No Information Smoking Status No Information Sex Female Vital Signs Date / Time: Height Weight BMI Pulse Rate Blood Pressure Temperature Respiratory Rate Body Surface Area Head Circumference BMI percentile Pulse Ox Inhaled Ox 3:58 PM 67.00 in 144.00 lbs 22.5 5 kg/m eter (2) 91 /min 117/69 mm[Hg] 98.4 F 18 /min 69 Chief Complaint And Reason For Visit From encounter dated '05/09/2012 15:58'. PHysical (chief complaint) Plan Of Treatment Date Type Action Status No Information History Of Present Illness Encounter Date Complaint History Of Prese nt Illness No Information Instructions Date Instruction Additional Infor mation No Information Assessments Type Assessment Date No Information Mental Status Date Cognitive Assessment Orientation - [place] ed to time, place, person, situation.
--- OUTSIDE RECORDS SUMMARY | 2024-10-08 13:42 | XMS_ITS | CONTINUITY OF CARE DOCUMENT ---
Author Name analisa hauser Address Unknown Organization [facility] Address [address] [place] [address] [address] [place] [address] Phone [phone] Care Team Providers Care Ribbon Inker Name Role Phone Vito Snow MD Unavailable [phone] SLY HERNANDEZ MD Unavailable [phone] SLY HERNANDEZ MD Unavailable [phone] INSURANCE PROVIDERS Payer name Policy type / Coverage type [facility] alliance party ID [id number]
[2024-10-10 14:54] LABS: Hepatitis C RNA, Quant PCR <15 NOT DETECTED IU/mL (NOT DETECTED)
== END 2024-10-08 12:20 | disposition home or self-care (01) ==
LOC: CHSLAB 12:20
PROVIDERS: PCP Family Medicine; Visit Provider Family Medicine
DX: I38 Endocarditis, valve unspecified (principal)
CPT/HCPCS: 36415; 80053; 85025; 85055; 86140; 87040; 87522